=== PATIENT | female | born 1965 | race Caucasian/White ===

== ENCOUNTER 2017-11-20 12:12 | Emergency (ER) | payer MEDICAID, SELFPAY ==
[2017-11-20 12:15] VITALS: BP 146/90; PULSE 80; RESP 16; TEMP 36.6; O2SAT 97; BMI 27.6
--- NOTE | 2017-11-20 13:15 | CT_ITS ---
CTA Chest WO/W Contrast INDICATION: PT HAD ARETHA ON TUESDAY, RUQ PAIN, RT SHOULDER AND BACK PAIN, REDNESS AROUND INCISIONS COMPARISON: None TECHNIQUE: High resolution axial CT imaging of the chest during intravenous contrast administration, CTA protocol. Multiplanar and MIP 3D reformatted images. 75 mL of Isovue-370 were given intraveniously. Radiation dose optimization technique applied. FINDINGS: There is no evidence of pulmonary arterial filling defect to suggest PE. Aortic arch is unremarkable. Heart size is mildly enlarged. Mild atelectatic changes are seen in the dependent portions of the lower lobes, the lungs are otherwise clear. CT/CTA Chest W/WO Contrast IMPRESSION: No evidence of PE or aortic dissection. Mild cardiomegaly. Mild atelectatic changes in the dependent portions of the lower lobes, lungs otherwise clear. at 1510 Reported and signed by: Georgina Edward MD Electronically Signed: Georgina Edward MD at 14:08 EST Tel , Service support ,
--- NOTE | 2017-11-20 13:15 | CT_ITS ---
CT Abdomen And Pelvis W/ Contrast INDICATION: PT HAD ARETHA ON TUESDAY, RUQ PAIN, RT SHOULDER AND BACK PAIN, REDNESS AROUND INCISIONS COMPARISON: None TECHNIQUE: Axial CT imaging of the abdomen and pelvis with IV contrast. Coronal and sagittal reformatted images. 75 mL of Isovue-370 were given intravenously. FINDINGS: Visualized lung bases are clear. The heart size is normal. The liver and spleen are normal in size. The gallbladder is surgically absent. There is some fat stranding in the gallbladder fossa and in the subcutaneous fat, suggestive of recent cholecystectomy. There is no abnormal fluid collection in the surgical bed and the liver demonstrates homogeneous enhancement. The kidneys enhance contrast symmetrically bilaterally and are without evidence of hydronephrosis. Urinary bladder is within normal limits. Bowel loops are nondistended. Appendix is unremarkable. Small amount of free fluid is seen in the pelvis. CT/Abdomen/Pelvis W IV Cont ONLY IMPRESSION: Findings suggestive of recent cholecystectomy. No abnormal fluid collection or other postsurgical complications identified. Small amount of free fluid in the pelvis. at 1507 Reported and signed by: Georgina Edward MD Electronically Signed: Georgina Edward MD at 14:06 EST Tel , Service support ,
--- NOTE | 2017-11-20 13:20 | ED.VISSUMM ---
- ER Visit Summary Date of Service: 11/20/17 Chief Complaint: [Right flank pain] History of Present Illness: The patient is a 52 F [presents to the emergency department with flank pain she had a cholecystectomy on Tuesday at [facility]. She was doing well but since Tuesday she has been having pain that is worsening in the right upper quadrant right lower chest right back. She does feel occasionally like she has to take a big deep breath and but denies any shortness of breath. No fevers or chills. She had a small amount of nausea this morning. Urination has been normal. She has noticed a worsening redness and clear bubbling around her incision sites. There is been a clear drainage. It is worse with taking a deep breath.] Physical Examination: [] Blood pressures 146/90 other vitals within normal limits WN WD NAD PERRL EOMI MMM NECK supple and nontender, no masses RRR no murmur rub or gallop, no peripheral edema, symmetric radial pulses CTAB no respiratory distress ABDOMEN is soft she has tenderness in the right upper quadrant and right CVA tenderness, normal bowel sounds, no distension, no rebound or guarding SKIN is warm and erythema and clear vesicular lesions and drainage around all of her incision sites no tenderness Alert and Oriented x3, CN II-XII in tact, no motor or sensory deficits, gait normal No lymphadenopathy Test Results: [] Emergency Department Course and Treatment: [Patient has pleuritic pain as well as tenderness in the right upper quadrant. I suspect this is postoperative abdominal pain however because she describes some breathing increased effort and pleuritic pain I did order a CTA of the chest as well as the abdomen and pelvis. She has no bile leak or other intra-abdominal complication. CTA shows no PE she does have some atelectasis. Screening blood work shows mild elevation of the AST she has no leukocytosis. Patient does have some irritation around her incision sites. I think this likely represents a sensitivity reaction however I will cover her with Keflex in case there is infection. I did speak with on-call surgeon Dr. Qureshi discussing care in the emergency department. She will be given a Percocet for home.] Treatment Plan: [] Disposition: [disCharge] Impression: [1. Postoperative pain 2. Skin reaction] This note was generated with [employer] software. It may contain incorrect words, spelling, and punctuation that were not noted in review of the chart prior to signing ED Disposition - Plan for ED Patient: Chief Complaint: Other, Pain/Inj Referrals: Fortino Xavier [Primary Care Provider] -
[2017-11-20] MEDS: 0.9% Normal Saline 1,000 ML 125 ML IV (13:36)
[2017-11-20 13:46] LABS: Absolute Lymphocyte Count 1.83 X10^3/ul (0.83-4.51); Absolute Neutrophil Count 6.3 X10^3/uL (2.0-7.7); Basophil# 0.01 X10^3/uL; Basophil% 0.1 % (0-1); Eosinophils% 4.3 % (0-5); Hematocrit 39.9 % (37-47); Lymphocyte # 1.83 X10^3/ul (4.0); Lymphocyte % 19.8 % (19-41); Mean Corp Hgb Conc 32.6 g/gl (32-36); Mean Corpuscular Hgb 28.6 pg (27.0-32.0); Mean Corpuscular Volume 87.7 fL (81-99); Monocyte% 7.6 % (0-10); Neutrophil # 6.26 X10^3/uL (2.7-7.7); Neutrophil % 67.9 % (47-70); Platelet Count 301 K/mm3 (150-450); RBC Distribution Width CV 13.3 % (11.6-14.6); RBC Distribution Width SD 42.2 fl (35.1-43.9); Red Blood Count 4.55 M/mm3 (4.2-5.4); White Blood Count 9.2 K/mm3 (4.4-11.0)
[2017-11-20 13:47] LABS: POSITIVE COUNT NO; POSITIVE DIFFERENTIAL NO; POSITIVE MORPHOLOGY NO
[2017-11-20 14:00] LABS: ALB/GLOB Ratio 1.1 RATIO (0.9-2.4); AST(SGOT) 26 U/L (15-37); Alanine Aminotransfer ALT/SGPT 69 U/L (13-56); Albumin, Serum 3.8 g/dL (3.2-5.0); Alkaline Phosphatase 64 U/L (45-117); Anion Gap 4 (5-15); BUN 11 mg/dL (7-18); BUN/Creat Ratio 12.5 RATIO (10-20); Calcium,Total 9.1 mg/dL (8.5-10.1); Chloride 106 mmol/L (98-107); Creatinine, Serum 0.88 mg/dL (0.55-1.02); EST Glomerular Filtration Rate 72 mL/min (>60); Est Glom Filt Rate - Afr Amer 87 mL/min (>60); Estimated Creatinine Clearance 59.82 ml/min; Globulin 3.5 g/dL (2.2-4.2); Glucose 94 mg/dL (74-106); Lipase 79 U/L (73-393); Potassium 4.1 mmol/L (3.5-5.1); Protein, Total 7.3 g/dL (6.4-8.2); Sodium Level 140 mmol/L (136-145)
[2017-11-20 14:21] LABS: Bacteria 0 SEEN /hpf (None Seen); Mucous, Urine 0 SEEN /hpf (<or=2+); Red Blood Cells-Urine 0 SEEN /hpf (0-5); White Blood Cells 0 SEEN /hpf (0-5)
[2017-11-20 14:23] LABS: Color, Urine Straw (Yellow); Glucose, Dipstick Normal (Normal); Ketone-Dipstick Negative (Negative); Leukocyte Esterase-Dipstick Negative /ul (Negative); Nitrite-Dipstick Negative (Negative); Occult Blood-Urine Negative /ul (Negative); Protein-Dipstick Negative (Negative); Specific Gravity, Urine 1.015 (1.002-1.030); Urine Bilirubin Dipstick Negative (Negative); Urine Clarity Clear (Clear); Urine Urobilinogen Normal (Normal)
[2017-11-20 14:31] LABS: Squamous Epithelial Cells - UA 0-5 SEEN /hpf (5-10)
[2017-11-20 15:27] VITALS: PULSE 72; RESP 16
[2017-11-20 16:31] VITALS: BP 137/92; PULSE 65; RESP 16
--- NOTE | 2017-11-20 16:31 | ED.DEP ---
ED Disposition - Plan for ED Patient: Chief Complaint: Other, Pain/Inj Instructions: ED Post Op Pain Prescriptions: Oxycodone HCl/Acetaminophen [Percocet 5/325] 1 tablet PO Q6H PRN PRN 3 Days #10 tablet PRN Reason: Pain Referrals: Kiko Aguiar [Other]
--- NOTE | 2017-11-20 16:45 | ED.DEP ---
ED Disposition - Plan for ED Patient: Chief Complaint: Other, Pain/Inj Instructions: ED Post Op Pain Prescriptions: Oxycodone HCl/Acetaminophen [Percocet 5/325] 1 tablet PO Q6H PRN PRN 3 Days #10 tablet PRN Reason: Pain Cephalexin [Keflex] 500 mg PO Q6 #28 capsule Referrals: Kiko Aguiar [Other]
== END 2017-11-20 16:47 | disposition home or self-care (01) ==
PROVIDERS: Emergency Provider Emergency Medicine
DX: R10.9 Unspecified abdominal pain (principal); G89.18 Other acute postprocedural pain; T78.40XA Allergy, unspecified, initial encounter; X58.XXXA Exposure to other specified factors, initial encounter; R11.0 Nausea; R07.81 Pleurodynia; Z90.49 Acquired absence of other specified parts of digestive tract
CPT/HCPCS: 71275; 74177; 80053; 81001; 83690; 85025; 96360; 96361; 99283; J7030; Q9967

== ENCOUNTER → 2018-03-07 12:00 | Outpatient (CLI) | payer MEDICAID, SELFPAY ==
--- NOTE | 2018-03-07 12:00 | DT_ITS ---
This patient was seen during an EMR downtime March 06, 2018 - March 13, 2018. This patient may have a combination of paper and electronic documentation or all paper documentation. All documentation is viewable within the e-chart portion of [facility] for each patient visit.
--- NOTE | 2018-03-07 12:00 | BI_ITS ---
MAMMOGRAPHY - BILATERAL SCREENING REASON FOR EXAM: Female, 52 years old. Routine annual screening examination. PERTINENT HISTORY: NO FAM HX - BILAT IMPLANTS 2006 - CURRENT ESTADIOL X 8 MONTHS - PRE [facility] TECHNIQUE: Digital bilateral breast tyrone (3D mammographic acquisition) in the CC and MLO projections. 2-D mediolateral oblique (MLO) and craniocaudad (CC) views of both breasts were obtained. CAD: Full Field Digital Mammography with Computer Added Detection was performed. COMPARISON: 01/11/2017 and 12/03/2015 FINDINGS: Breast Composition: There are scattered areas of fibroglandular density. There are no dominant masses or suspicious calcifications. No other significant abnormalities are identified. BI/SCREENING MAMM (CAD), BILAT IMPRESSION: Stable bilateral screening mammogram. Yearly follow-up mammogram recommended. (A) ASSESSMENT CATEGORY: BIRADS Category 2: Benign. A letter regarding these results will be sent to the patient by the facility within 30 days. Approximately 10% of breast cancers are not detected by mammography. A normal mammogram should not delay biopsy of a clinically suspicious abnormality. [id number] Electronically Signed: Angel Ramirez MD at 12:52 EDT Tel , Service support ,
== END ==
PROVIDERS: Visit Provider Obstetrics & Gynecology
DX: Z12.31 Encounter for screening mammogram for malignant neoplasm of breast (principal)
CPT/HCPCS: 77063; 77067

== ENCOUNTER → 2018-08-21 18:53 | Outpatient (CLI) | payer MEDICAID, SELFPAY ==
[2018-08-21 15:36] VITALS: BMI 27.4
== END ==
PROVIDERS: Referring Provider Obstetrics & Gynecology; Visit Provider Obstetrics & Gynecology
DX: N89.8 Other specified noninflammatory disorders of vagina (principal)
CPT/HCPCS: 87070; 87205

== ENCOUNTER → 2018-08-28 17:02 | Outpatient (CLI) | payer MEDICAID, SELFPAY ==
[2018-08-21 15:36] VITALS: BMI 27.4
--- OUTSIDE RECORDS SUMMARY | 2018-10-10 16:19 | XMS RPT_ITS ---
:1965 Author Organization OHIP Support Name Relationship Address Phone ZAKI YEUNG Unavailable Unavailable + ZAKI YEUNG Unavailable Unavailable + BUEHLERS Unavailable [address] [place] [address] + [place] [address] VERENICE YEUNG Unavailable [address] + [place] [address] CRISTY GOODMAN Unavailable [address] + [place] [address] BUEHLERS Unavailable [address] [place] + [place] [address] VERENICE YEUNG Unavailable [address] + [place] [address] CRISTY GOODMAN Unavailable [address] + [place] [address] BUEHLERS Unavailable [address] + [place] [address] VERENICE YEUNG Unavailable [address] + [place] [address] CRISTY GOODMAN Unavailable Unavailable + BUEHLERS Unavailable [address] + [place] [address] VERENICE YEUNG Unavailable [address] + [place] [address] CRISTY GOODMAN Unavailable 1 + [place] [address] BUEHLERS Unavailable [address] + [place] [address] VERENICE YEUNG Unavailable [address] + [place] [address] CRISTY GOODMAN Unavailable Unavailable + [place] [address] BUEHLERS Unavailable [address] + [place] [address] YEUNG, VERENICE Unavailable [address] + [place] [address] CRISTY GOODMAN Unavailable 0 + [place] [address] BEELOY, ANICETO Unavailable [address] + [place] [address] BUEHLERS Unavailable [address] + [place] [address] GAMAL VERENICE Unavailable [address] + [place] [address] RAVEN, ANICETO Unavailable [address] + [place] [address] BUEHLERS Unavailable [address] [place] + [place] [address] YEUNG, VERENICE Unavailable [address] + [place] [address] BEELOY, ANICETO Unavailable [address] + [place] [address] BUEHLERS Unavailable [address] [place] + [place] [address] YEUNG, VERENICE Unavailable [address] + [place] [address] RAVEN ANICETO Unavailable [address] + [place] [address] BUEHLERS Unavailable [address] [place] + [place] [address] YEUNG, VERENICE Unavailable [address] + [place] [address] Care Team Providers Name Role Phone RIK GONZALEZ Primary Care Unavailable Jaida Siu Attending Unavailable Tootie Figueroa Attending Unavailable Tootie Figueroa Referring Unavailable RIK GONZALEZ Primary Care Unavailable Jeni Leo Attending Unavailable Tootie Figueroa Attending Unavailable RIK GONZALEZ Referring Unavailable Tootie Figueroa Attending Unavailable RIK GONZALEZ Primary Care Unavailable Tootie Figueroa Referring Unavailable [place], Mary Attending Unavailable CARLOS, RIK Referring Unavailable [place], Mary Attending Unavailable Noel, Mary Referring Unavailable CARLOS, RIK Primary Care Unavailable CARLOS, RIK Primary Care Unavailable JARRETT HOLCOMB Attending Unavailable Noel, Mary Attending Unavailable [place], Mary Referring Unavailable CARLOS, RIK Primary Care Unavailable Andrew Atkins Attending Unavailable CARLOS, RIK Primary Care Unavailable CARLOS, ANDREW S Attending Unavailable CARLOS, ANDREW S Referring Unavailable [place], DULCE E Referring Unavailable [place], DULCE E Admitting Unavailable [place], DULCE E Attending Unavailable SCHWEIKERT, ALBINA A Attending Unavailable CARLOS, ANDREW S Referring Unavailable KEYMATHIEU MONTAÑO (HEALTH TECHNICIAN) Attending Unavailable KEYMATHIEU MONTAÑO (HEALTH TECHNICIAN) Referring Unavailable SCHWEIKERT, ALBINA Belkys Admitting Unavailable SCHWEIKERT, ALBINA Rizvi Attending Unavailable MICHAEL SNOW Attending Unavailable AARON BROWN (SOURCE INSPECTOR) Attending Unavailable SCHWEIKERT, ALBINA A Referring Unavailable SCHWEIKERT, ALBINA A Referring Unavailable SANTY GORE Attending Unavailable ANDREW GONZALEZ MD. Primary Care Unavailable SCHWEIKERT, ALBINA Rizvi Attending Unavailable CARLOS, ANDREW S Primary Care Unavailable CARLOS, ANDREW S Referring Unavailable SCHWEIKERT, ALBINA Rizvi Admitting Unavailable SCHWEIKERT, ALBINA Rizvi Attending Unavailable CARLOS, ANDREW S Primary Care Unavailable MATHIEU KEY Attending Unavailable KEYLYEN Referring Unavailable CARLOS, ANDREW S Primary Care Unavailable PAYTON SHI Attending Unavailable SCHWEIKERT, ALBINA A Referring Unavailable CARLOS, ANDREW S Primary Care Unavailable CARLOS, ANDREW S Primary Care Unavailable MICHAEL SNOW Attending Unavailable SCHWEIKERT, ALBINA Rizvi Referring Unavailable CARLOS, ANDREW S Primary Care Unavailable CARLOS, ANDREW S Referring Unavailable [place], DULCE E Attending Unavailable CARLOSANDREW Referring Unavailable ROSALIE FRANKLIN (PA) Referring Unavailable RADHA ACEVEDO (SOURCE INSPECTOR) Attending Unavailable [place], DULCE E Referring Unavailable [place], DULCE E Attending Unavailable [place], DULCE E Referring Unavailable CARLOS, ANDREW S Referring Unavailable CARLOS, ANDREW S Attending Unavailable PROBLEMS PROBLEMS DATE TYPE CONDITION / CODE ATTENDING STATUS SOURCE 08/30/2018 Unknown N12 - ZHANG, 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, not Hospital specified as acute or Repository chronic / N12(ICD-10) 08/28/2018 Unknown R30.0 - Dysuria / [place], Active [place] R30.0(ICD-10) [facility] Repository 08/22/2018 Unknown N89.8 - Other Chongmatthias, Active [place] specified [facility] noninflammatory Hospital disorders of vagina / Repository N89.8(ICD-10) 08/22/2018 Unknown Z01.411 - Encounter Carolina, Active [place] for gynecological General Acute Hospital examination (general) Hospital (routine) with Repository abnormal findings / Z01.411(ICD-10) 04/02/2018 Active Other chest pain / KARI, Active [place] R07.89(ICD-10) [facility] Other [place] Repository 03/29/2018 Active Other specified SCHWEIKERT, Active [facility] postprocedural states ALBINA A Clinic Other / Z98.890(ICD-10) [place] Repository 03/29/2018 Active Supraventricular SCHWEIKERT, Active [place] tachycardia / ALBINA A Clinic Other I47.1(ICD-10) [place] Repository 03/29/2018 Active Palpitations / SCHWEIKERT, Active [place] R00.2(ICD-10) ALBINA A Clinic Other [place] Repository 03/29/2018 Active Pre-excitation SCHWEIKERT, 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 / ALBINA A Clinic Other I45.6(ICD-10) [place] Repository 03/29/2018 Admitting Unknown / SCHWEIKERT, Active [place] [facility] diagnosis UNK(Unknown) [facility] Repository 03/29/2018 Unknown Z12.31 - Encounter Carolina, Active [facility] for screening [facility] Acute Hospital mammogram for Hospital malignant neoplasm of Repository breast / Z12.31(ICD-10) 12/21/2017 Active Other usp SCHWEIKERT, Active [place] (current) drug ALBINA A [facility] Other therapy / [place] Z79.899(ICD-10) Repository 12/21/2017 Active [place]chmerz / SCHWEIKERT, Active [facility] [place] N94.0(ICD-10) ALBINA A Clinic Other [place] Repository 11/20/2017 Unknown R10.9 - Unspecified Sherron, Jaida Active [place] abdominal pain / Community R10.9(ICD-10) Hospital Repository 11/16/2017 Active Other specified HOOVER, Active [place] diseases of DULCE E Clinic Other gallbladder / [place] K82.8(ICD-10) Repository 11/09/2017 Active Encounter for other NA Active [facility] preprocedural Clinic Other examination / [place] Z01.818(ICD-10) Repository 10/26/2017 Active Right upper quadrant ANDREW GONZALEZ Active [place] pain / R10.11(ICD-10) S Clinic Other [place] Repository PROCEDURES PROCEDURES No Procedure Records FoundRESULTS RESULTS Observed: 09/05/2018 Status: F Source: [facility] 7:37 PM [facility] REPOSITORY . MICRO - Microbiology PROCEDURE: Urine Culture [*1] SOURCE: Urine, Clean Catch BODY SITE: COLLECTED DATE/TIME: 09/05/2018 19:37 EST RECEIVED DATE/TIME: 09/06/2018 17:20 EST START DATE/TIME: 09/06/2018 17:20 EST FREE TEXT SOURCE: FINAL REPORTS Final Report [] Verified Date/Time/Personnel: 09/08/2018 11:16 EST 3,000 organisms per mL Presumptive Lactobacillus species Sensitivity testing is not recommended for one of the following reasons: 1. Established susceptibility patterns are available or 2. Interpretative criteria are not available. PRELIMINARY REPORTS Preliminary Report [] Verified Date/Time/Personnel: 09/07/2018 09:01 EST No growth to date Performing Locations *1: This test was performed at: [facility], [address] [place] [address], [address] [place] [address] Performed By: #### CUR #### [place] [address] CBC Collected: 09/05/2018 Status: F Source: [facility] 6:58 PM [facility] REPOSITORY TYPE CODE TESTS RESULT OUT OF REFERENCE UNITS RANGE LAB WBC(LOINC) 4.60-10.80 10 3/mcL WBC 10.30 LAB RBCCT(LOINC 4.20-5.40 10 6/mcL ) RBC 4.61 LAB HGB(LOINC) 12.0-16.0 G/dL Hgb 13.0 LAB HCT(LOINC) 37.0-47.0 % Hct 39.7 LAB MCV(LOINC) 80.0-94.0 fL MCV 86.2 LAB MCH(LOINC) 27.0-31.2 pg MCH 28.3 LAB MCHC(LOINC) 33.0-37.0 G/dL Low MCHC 32.8 LAB RDW(LOINC) 11.5-14.5 % RDW 13.2 LAB PLT(LOINC) 130-400 10 3/mcL Platelet 373 LAB MPV(LOINC) 7.4-10.4 fL MPV 8.5 Performed By: #### CBC, ADIFF, ANEU #### [address] [address] #### BMP, GFR #### [address] [address] .AUTO DIFF Collected: 09/05/2018 Status: F Source: [facility] 6:58 [facility] REPOSITORY TYPE CODE TESTS RESULT OUT OF REFERENCE UNITS RANGE LAB DENISSE(LOINC) 37.0-80.0 % Neutrophil % 51.6 LAB LYM(LOINC) 10.0-50.0 % Lymphocyte % 39.6 LAB MON(LOINC) 1.7-13.0 % Monocyte % 6.9 LAB EO(LOINC) 0.0-7.0 % Eosinophil % 1.4 LAB BAS(LOINC) 0.0-2.5 % Basophil % 0.5 LAB ABLYM(LOIN 0.77-3.85 10 3/mcL C) High Lymphocyte, 4.10 Absolute LAB SAVANAH(LOINC 0.15-1.00 10 3/mcL ) Monocyte, 0.70 Absolute LAB AEOS(LOINC 0.00-0.40 10 3/mcL ) Eosinophil, 0.10 Absolute LAB ABAS(LOINC 0.00-0.19 10 3/mcL ) Basophil, 0.10 Absolute Performed By: #### CBC, ADIFF, ANEU #### [address] [address] #### BMP, GFR #### [address] [address] .NEUABS Collected: 09/05/2018 Status: F Source: [facility] 6:58 PM [facility] REPOSITORY TYPE CODE TESTS RESULT OUT OF REFERENCE UNITS RANGE LAB ANEU(LOINC) 2.85-6.16 10 3/mcL Neutrophil, 5.30 Absolute Performed By: #### CBC, ADIFF, ANEU #### [place] [address] #### BMP, GFR #### [address] [address] BMP Collected: 09/05/2018 Status: F Source: [facility] 6:58 PM [facility] REPOSITORY TYPE CODE TESTS RESULT OUT OF REFERENCE UNITS RANGE LAB GLU(LOINC) 70-105 mg/dL Glucose Level 90 LAB NA(LOINC) 136-145 mmol/L Sodium Level 139 LAB K(LOINC) 3.5-5.1 mmol/L Potassium High Level 5.2 LAB CL(LOINC) 98-107 mmol/L Chloride 100 LAB CO2(LOINC) 22-29 mmol/L CO2 High 30 LAB EBAL(LOINC mEq/L ) Electrolyte Balance 9.0 LAB BUN(LOINC) 7-18 mg/dL BUN 13 LAB CRE(LOINC) 0.55-1.02 mg/dL Creatinine Lvl (s) 0.60 LAB BC(LOINC) 7-27 ratio BUN/Creatinine 22 Ratio LAB CA(LOINC) 8.4-10.2 mg/dL Calcium Lvl 9.4 Performed By: #### CBC, ADIFF, ANEU #### [address] [address] #### BMP, GFR #### [place] [address] .GFR Collected: 09/05/2018 Status: F Source: [facility] 6:58 [facility] REPOSITORY TYPE CODE TESTS RESULT OUT OF REFERENCE UNITS RANGE LAB GFRAA(LOINC ml/min/1.73 ) sqm GFR 127 [place] Result Comment: GFR Population mean for , Non- Americans Ages 20-29 = 116 mL/min/1.73 sq.m. Ages 30-39 = 107 mL/min/1.73 sq.m. Ages 40-49 = 99 mL/min/1.73 sq.m. Ages 50-59 = 93 mL/min/1.73 sq.m. Ages 60-69 = 85 mL/min/1.73 sq.m. Ages 70+ = 75 mL/min/1.73 sq.m. Chronic Kidney Disease: Less than 60 mL/min/1.73 square meters End Stage Renal Disease: Less than 15 mL/min/1.73 square meters LAB GFRNO(LOINC) ml/min/1.73sqm GFR Non- 105 Result Comment: GFR Population mean for , Non- Americans Ages 20-29 = 116 mL/min/1.73 sq.m. Ages 30-39 = 107 mL/min/1.73 sq.m. Ages 40-49 = 99 mL/min/1.73 sq.m. Ages 50-59 = 93 mL/min/1.73 sq.m. Ages 60-69 = 85 mL/min/1.73 sq.m. Ages 70+ = 75 mL/min/1.73 sq.m. Chronic Kidney Disease: Less than 60 mL/min/1.73 square meters End Stage Renal Disease: Less than 15 mL/min/1.73 square meters Performed By: #### CBC, ADIFF, ANEU #### [address] [address] #### BMP, GFR #### [place] [address] UA Collected: 09/05/2018 Status: F Source: [facility] 5:43 [facility] REPOSITORY TYPE CODE TESTS RESULT OUT OF RANGE REFERENCE UNITS LAB SPCUA(GABO NC) UA Specimen Type Clean Catch LAB CLRUA(GABO NC) UA Color Yellow LAB APPUA(GABO Clear NC) UA Appear Clear LAB SGUA(LOIN C) UA Spec Unknown Grav <=1.005 LAB GLUA(LOIN Negative mg/dL C) UA Glucose Negative LAB BILUA(GABO Negative NC) UA Bili Negative LAB KETUA(GABO Negative mg/dL NC) UA Ketones Negative LAB BLDUA(GABO Negative NC) UA Blood Negative LAB PHUA(LOIN C) UA pH 7.0 LAB PROUA(GABO Negative mg/dL NC) UA Protein Negative LAB UROUA(GABO E.U./dL NC) UA Urobilinogen 0.2 LAB NITUA(GABO Negative NC) UA Nitrite Negative LAB LEUUA(GABO Negative NC) UA Leuk Est Negative Performed By: #### UA, UAMICAO #### [address] [address] .URINALYSIS MICROSCOPIC Collected: 09/05/2018 Status: F Source: [place] ([place]) 5:43 [facility] REPOSITORY TYPE CODE TESTS RESULT OUT OF RANGE REFERENCE UNITS LAB WBCUA(LOIN None Seen /hpf C) UA WBC None Seen LAB RBCUA(LOIN None Seen /hpf C) UA RBC None Seen LAB EPIUA(LOIN None Seen /hpf C) Unknown UA Squam Epithelial 0-5 Performed By: #### UA, UAMICAO #### [place] [address] [place], [place] [address] LIPID PROFILE Collected: 08/31/2018 Status: F Source: [place] 11:42 AM [facility] REPOSITORY TYPE CODE TESTS RESULT OUT OF RANGE REFERENCE UNITS LAB L501.4900 200 mg/dL Normal CHOL 148 Result Comment: <200 mg/dL Desirable 200-240 mg/dL Borderline >240 mg/dL High Risk LAB L501.5000 mg/dL Normal TRIG 91 Result Comment: The drugs N-Acetylcysteine and Metamizole may falsely depress this assay. Serum Triglycerides Reference Interval Normal <150 mg/dL Borderline high 150 - 199 mg/dL High 200 - 499 mg/dL Very High > or = 500 mg/dL LAB L501.6400 mg/dL Normal HDL 65 Result Comment: The drugs N-Acetylcysteine and Metamizole may falsely depress this assay. Reference Range HDL <40 mg/dL Low HDL Cholesterol HDL >or= 60 mg/dL High HDL Cholesterol LAB L501.6500 0-130 mg/dL Normal LDL 65 LAB L501.6600 5-40 mg/dL Normal VLDL 18 Performed By: #### L500.4100, L501.0100, L501.9520 #### [facility] [address] [place], [place], [address] GLUCOSE Collected: 08/31/2018 Status: F Source: [place] 11:42 AM [facility] REPOSITORY TYPE CODE TESTS RESULT OUT OF RANGE REFERENCE UNITS LAB L501.0100 74-106 mg/dL Normal GLU 85 Result Comment: Please note revised GLUCOSE reference range effective 2017. Performed By: #### L500.4100, L501.0100, L501.9520 #### [facility] [address] [place], [address] THYROID STIM HORMONE Collected: 08/31/2018 Status: F Source: [place] ([facility]) 11:42 AM [facility] REPOSITORY TYPE CODE TESTS RESULT OUT OF RANGE REFERENCE UNITS LAB L501.9520 0.358-3.74 uIU/mL Normal TSH 2.62 Performed By: #### L500.4100, L501.0100, L501.9520 #### [facility] [address] [place], [address] EMERGENCY DEPARTMENT Observed: 08/30/2018 Status: F Source: [place] SUMMARY 3:21 PM [facility] REPOSITORY [facility] Medical Records Department [address] [facility] [place] [address] Emergency Department Summary 08/30/18 1334 MR#: [id number] Acct: [id number] Name: NICKI DELACRUZ Rep #: [id number] : 1965 53 From: Jarrett Holcomb MD PCP: RIK GONZALEZ Status: REG ER History of Present Illness Chief Complaint: Abd Pain Informant: Patient Onset: Days - 3 Context: Gradual Onset Timing: Continuous Quality: ache Location: pelvis, w/ radiation into low back, worse on right Current Severity: Moderate Maximum Severity: Moderate Worsened by: nothing Relieved by: nothing Associated Symptoms: burning dysuria, frequency, urgency. no gross hematuria. Narrative: Had urinary symptoms and suprapubic discomfort 2-3 days ago, including burning after she was done urinating, her doctor tested her urine in the office which showed blood, and prescribed Macrobid for her which she started and now she has developed colicky pain in her low back especially the right side, some chills, no nausea or vomiting. Past Medical History - Allergies and Home Meds Allergies/Adverse Reactions: Allergies Tetracyclines Allergy (Verified 08/30/18 13:15) Unknown propranolol Adverse Reaction (Verified 08/30/18 13:15) Other MENTAL STATUS CHANGES Primary Care Physician: Rik Gonzalez [Primary Care Provider] - Surgical History: hysterectomy Lives: Spouse/ Significant Other Smoking Status: Never smoker Review of Systems General: Reports: Chills. Denies: Sweats Cardiovascular: Denies: Chest pain, Palpitations Respiratory: Denies: Dyspnea, Cough, Dyspnea on exertion Gastrointestinal: Reports: Abdominal pain. Denies: Nausea, Vomiting, Diarrhea, Melena, Hematochezia Genitourinary: Reports: Dysuria, Frequency. Denies: Hematuria Musculoskeletal: Reports: Back pain Skin: Denies: Rash Neurological: Denies: Headache, Weakness, Numbness Physical Exam Vital Signs/Narrative: Vital Signs 08/30/18 13:15 98.5 F 84 17 143/88 H 98 Inital Vital Signs reviewed: Yes General: Well nourished, Well developed Head: Normocephalic, Atraumatic Eyes: Perrl, EOMI ENT: Moist mucous membranes, No rhinorrhea Neck: Supple, Nontender Cardiovascular: Regular rate, Regular rhythm, No murmurs. Negative for: Tachycardia Respiratory: No distress, CTA bilaterally, Chest nontender Abdomen: Soft, Nondistended, Normal bowel sounds, Tender - suprapubic. Negative for: Guarding, Rebound tenderness Back: Normal Inspection, CVA tenderness - mild on R only Extremities: Nontender, No edema Skin: Normal color, No rash, No Trauma Neurological: Alert, Oriented x3, Cranial nerves II-XII grossly intact, Normal Strength, Normal Sensation Psychological: Normal affect Diagnostic/Tx/Re-eval Laboratory Tests Urine Color Yellow (Yellow) Urine Clarity Sl. Cloudy (Clear) Urine pH 6.0 (5.0 - 8.0) Ur Specific Eva 1.025 (1.002-1.030) - Medical Decision Making Urinalysis shows 25 leukocyte esterase, few white blood cells, 2+ bacteria. I discussed with Mary Cohen, nurse practitioner who the patient saw several days ago, she reviewed her urinalysis which showed very similar findings. The patient has symptoms and clinical findings consistent with cystitis that has turned into early pyelonephritis, I do not think she needs any other labs right now since she appears very well, has normal vital signs, and it cannot be since she had a hysterectomy, and therefore meets no criteria for admission. I coordinated follow-up, she will get an injection of Rocephin here in addition to Toradol for pain control, and prescriptions for Keflex and [place]. We had initially discussed Bactrim but she said that did not work for her in the past and she prefer to try something else. 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 ED Disposition - Plan for ED Patient: Disposition: Home or Assisted Living Chief Complaint: Abd Pain Diagnosis: Pyelonephritis Instructions: ED Kidney Infec Female Prescriptions: Hydrocodone/Acetaminophen [[place] 5-325 Tablet] 1 each PO Q4H PRN 2 Days #12 tablet PRN Reason: Pain Cephalexin 500 mg PO 4X/DAY #40 capsule Referrals: Tootie Figueroa MD [STAFF PHYSICIAN] - 3-5 Days What to do if you have Problems For any increased pain, shortness of breath, bleeding, nausea or vomiting, chest pain, or any unexpected problems, contact your Primary Care Provider. Call [facility] ([phone]) or report to the closest Emergency Room. Call 911 if necessary. 08/30/18 1521 <Electronically signed by Jarrett Holcomb MD> Date Jarrett Holcomb MD Cosigner Signature (If Indicated): Date CC: RIK GONZALEZ URINALYSIS, COMPLETE Collected: 08/30/2018 Status: F Source: [place] 1:40 PM [facility] REPOSITORY Order Comment: How was Urine Obtained? ELECTRICIAN SUPER[employer]OR [employer]ANE TO SPECIFY TYPE CODE TESTS RESULT OUT OF RANGE REFERENCE UNITS LAB L400.3000 Yellow COLOR Normal Yellow LAB L400.3050 Clear Normal CLARITY Sl. Cloudy LAB L400.3200 Normal mg/dl Normal GLUCOSE, UR Normal LAB L400.3300 Negative mg/dL High BILIRUBIN URINE 1 Result Comment: COLOR OF URINE MAY AFFECT DIPSTICK RESULTS. LAB L400.3400 Negative mg/dl High KETONE UR 150 Result Comment: CRITICAL VALUE *H CRITICAL VALUE VERIFIED. CALLED TO RENETTA MENDES 08/30/18 140Skyler Morgan. RESULTS READ BACK BY RENETTA . LAB L400.3465 1.002-1.030 Normal SP.GR. DIPSTX 1.025 LAB L400.3550 5.0 - 8.0 pH Normal UR 6.0 LAB L400.3600 Negative mg/dl High 30 PROT DIPSTX LAB L400.3700 Normal mg/dl High 1 UROBILI LAB L400.3750 Negative Normal NITRITE UR Negative LAB L400.3780 Negative /ul High 10 OCCULT BLOOD-UR LAB L400.3800 Negative /ul High 25 LEUK ESTERASE LAB L400.4050 0-5 /hpf Normal WBC 0-5 SEEN LAB L400.4100 0-5 /hpf Normal RBC-UA 0-5 SEEN LAB L400.4150 5-10 /hpf Normal SQUAM EPI 0-5 SEEN LAB L400.4300 None Seen /hpf 2+ Normal BACTERIA LAB L400.4350 <or=2+ /hpf 4+ Normal MUCUS, URINE LAB L400.4450 0-5 /lpf Normal FINE GRAN CAST 0-5 SEEN Performed By: #### L400.0001 #### [facility] [address] [facility] [address] [place], [place], [id number] Observed: 08/28/2018 Status: F Source: [place] CULTURE, URINE 12:00 AM [facility] REPOSITORY Urine Culture ORGANISM 1: Presumptive E. coli Meridian Count 11,000-25,000 Presumptive E. coli: REACTION Amoxacillin/Clavulanic Acid $ <=2 S Ampicillin $ <=2 S Ampicillin/Sulbactam $ <=2 S Cefazolin $ <=4 S Cefepime $ <=1 S Ceftriaxone $ <=1 S Ciprofloxacin $ <=0.25 S ESBL - Ertapenim $$$ <=0.5 S Gentamicin $ <=1 S Imipenem *NF <=0.25 S Levofloxacin $ <=0.12 S Nitrofurantoin $ <=16 S Piperacillin/Tazobactam $$ <=4 S Tobramycin $ <=1 S Trimethoprim/Sulfametho $ <=20 S (NF) indicates non-formulary drug at [facility]. Approval by Infectious Disease Specialist required before non-formulary drugs may be ordered and/or dispensed. Performed By: #### M100.0650 #### [facility] [address] [place], [place], [id number] Observed: 08/21/2018 Status: F Source: [place] CULTURE, GENITAL 6:54 PM [facility] COMPREHENSIVE REPOSITORY Reason for Exam: vaginal discharge Gram Stain Score = 0 Interpretation: 0-3 Normal, 4-6 Intermediate, 7-10 Positive BV Gram Stain 4+ Gram positive rods 2+ Epithelial cells Gent Cult Comp Normal vaginal alexandro isolated. No yeast, Gardnerella, Neisseria or beta-hemolytic Streptococcus isolated. Performed By: #### M100.1600 #### [facility] [address] [place], [address] BORDEREAU CLERK OFFICE VISIT Observed: 08/21/2018 Status: F Source: [place] REPORT 4:47 PM [facility] REPOSITORY [facility] [address] [place] [address] OFFICE VISIT Date of Service: 08/21/18 MR#: [id number] Acct: [id number] Name: NICKI DELACRUZ Rep #: [id number] : 1965 Provider: Tootie Figueroa MD Age/Sex: 53/F Location: [facility] [place]: Signed Intake Vital Signs08/21/18 Height 5 ft 2 in 08/21/18 Weight: 150 lb 08/21/18 Body Mass Index (BMI) 27.4 08/21/18 Blood Pressure 120/72 Intake Visit Reasons: ANNUAL Chief Complaint: est annual Gate Services Supervisor Required: No Is patient in pain?: No Allergies Tetracyclines Allergy (Verified 08/21/18 15:36) Unknown propranolol Adverse Reaction (Verified 08/21/18 15:36) Other Medications Lorazepam 0.5 mg PO DAILY PRN PRN 05/30/14 [History Confirmed 08/21/18] Multivitamins,Therapeutic [Multivitamin] 1 tab PO DAILY 05/30/14 [History Confirmed 08/21/18] traZODone [Desyrel] 50 mg PO QHS 05/30/14 [History Confirmed 08/21/18] Flecainide [Tambocor] 50 mg PO BID 06/27/17 [History Confirmed 08/21/18] Cetirizine HCl [Zyrtec] 10 mg PO DAILY 11/20/17 [History Confirmed 08/21/18] estradiol 0.01% (0.1 mg/gram) vaginal cream See Rx Instructions VAGINAL .COMPLEX #42.5 g 08/21/18 [Rx Confirmed 08/21/18] estradiol 0.025 mg/24 hr semiweekly transdermal patch 1 patch TOPICAL .COMPLEX #8 ea 08/21/18 [Rx Confirmed 08/21/18] Is last menstrual period known: No Post menopausal: No Patient : No : No [facility] Medical History Abnormal Pap smear of cervix (Acute) Qnclt-Xmamimnmt-Dmtle syndrome (Acute) Surgical History S/P (Resolved) S/P breast augmentation (Resolved) S/P laparoscopic assisted vaginal hysterectomy (LAVH) (Resolved) S/P oophorectomy (Resolved) S/P tonsillectomy and adenoidectomy (Resolved) s/p ablation (Resolved) Family History Uncle Brain cancer Lung cancer Grandfather Heart disease Colon cancer Social History Smoking Status: Never smoker alcohol intake: never substance use type: does not use caffeine: Yes what type of physical activity do you participate in: walking seatbelt use: always do you feel safe at home: Yes additional social history: Patient works at [email or web address] Pregancy History 3 Elective abortions Hx Para 3 Spontaneous abortions Past Pregnancies Del. DateName GA/Weeks Outcome Route Bth WeighInfant GeLabor LgtAnesthesiDel LocatProvider FOB t n h a n HPI ANNUAL: Details: NICKI DELACRUZ is a 53 year old who presents for annual exam. she is postmenopausal but doing well, co some discharge and odor. Last PAP: 14 normal- hyst History of abnormal PAP: yes mild Last mammogram: 03/20 normal History of abnormal mammogram: no Colon cancer screening: up to date Other preventative health care screenings: pcp is Female Reproductive History Questions: Metorrhagia: No, Sexually active: Yes, Dyspareunia: Yes (dryness), PCB: No ROS Const Constitutional: Reports as per HPI; denies poor appetite, fatigue, increased appetite, weight gain or weight loss Cardio Card: Denies chest pain Resp Resp: Denies dyspnea or cough GI GI: Reports as per HPI; denies bloating, abdominal pain, constipation, vomiting or nausea : Reports as per HPI and other; denies blood in urine, vaginal odor, vaginal itching, vaginal dryness, vaginal discharge, urinary urgency, urinary incontinence, urinary frequency, pelvic pain, painful urination, difficulty urinating, prolapse symptoms or nipple discharge Skin Skin/Breast: Denies nipple discharge, breast pain, breast skin changes, breast lump or changing lesions Exam Const General: cooperative, healthy appearing, comfortable, no acute distress, well developed, well groomed [facility] Head: normal to inspection, normocephalic Ears: hearing grossly normal bilaterally, external ears normal Nose: external nose normal Face and sinus: normal facial exam Neck Neck: normal visual inspection, full ROM, no lymphadenopathy Thyroid: thyroid normal Chest Chest palpation AND inspection: normal inspection of the chest Breast inspection: normal inspection of the breasts, normal inspection of the axillae Breast palpation: normal palpation of the breasts, normal palpation of the axillae, no axillary lymphadenopathy Resp Effort AND Inspection: normal respiratory effort GI Inspection: normal to inspection, non-distended Palpation: no guarding, soft, no hepatosplenomegaly General: bladder normal to palpation External Female Exam: normal external appearance, normal appearance of the urethra, no lesions Urethra: normal appearance of the urethra, normal palpation Speculum Exam - Vagina: normal appearance of the vagina, normal vaginal discharge Bimanual Exam- Vagina AND Uterus: bladder normal to palpation Bimanual Exam- Adnexa, other: normal adnexae, no adnexal masses, adnexae non-tender Skin General: no rashes or lesions noted Neuro General: alert, moves all extremities, no focal motor deficits Extrem General: no pedal edema, normal to inspection Psych Appearance: grossly normal Mental Status: mental status grossly normal Affect: normal affect Speech and Movement: speech and movement normal Attitude: cooperative Assessment AND Plan Problems 1. Encounter for gynecological examination with abnormal finding Z01.411 2. Dyspareunia milly cruz discussed Plan Cervical cancer screening: hyst Breast cancer screening: mamm discussed estrace for dyspareunia other health maintenance examination reviewed and orders placed if needed. Encouraged maintenance of a healthy weight and active lifestyle and handout given. Annual exam handout including recommendations for good health guidelines, Calcium/vitamin D recommendations, and basic screening information given. Problem list up to date, see problem list details for any additional plan information. Follow up in one year for annual health maintenance exam or sooner if needed. Medications New: estradiol 0.01%(0.1mg/gram) (Estrace) use fingertip amount or 1-2g every night vaginally x 2 weeks, then 1-3x weekly for maintenance 42.5 gram s 3RF Refilled: Coding Level of Care Code Off vis,est,prev 40-64yrs Diagnoses Encounter for gynecological examination with abnormal finding Z01.411 Gynecological examination findings: abnormal findings PRESENT Dyspareunia 08/21/18 1647 <Electronically signed by Tootie Figueroa MD> Date Tootie Figueroa MD Cosigner Signature: Date (if applicable) CC: PROGRESS Observed: 06/26/2018 Status: COMPLETED Source: [place] 3:44 PM [facility] [place] REPOSITORY HNO ID: [id number] Author: Andrew Gonzalez Service: (none) Author Type: Physician Type: Progress Notes Filed: 06/27/2018 9:18 AM Note Text: Nicki Delacruz is a 53 year old female who presents with the following concerns and complaints: Patient is here for a variety of concerns we discussed her history of ablation she still has intermittent dizziness at times and some variation in her pulse rate but had a outpatient EKG extended that showed no significant abnormality at this time she has a history of reflux and history of intermittent abdominal pain she had a liver lesion that was probably a variation of normal but they recommended MRI she's had intermittent nausea and we'll have her follow up with the production assistant she has almost daily headaches and all have her follow up with headache specialist here she has underlying mild anxiety which is actually improved she uses the Ativan once or twice weekly and uses trazodone for insomnia we discussed many issues in detail history of mild asthma ACTIVE PROBLEM LIST Asthma Adjustment Disorder With Depressed Mood Cervical High 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 Positive Add (Attention Deficit Disorder) Insomnia, Unspecified Anxiety Primary Insomnia Stress Incontinence in Female Encounter for Screening Colonoscopy 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 Lungs clear cardiovascular exam normal mild right upper quadrant discomfort to palpation history of removal gallbladder Assessment / Plan: F51.01 Primary insomnia (primary encounter diagnosis) Z23 Need for vaccination K21.9 Gastro-esophageal reflux disease without esophagitis F41.9 Anxiety disorder, unspecified type G44.209 Tension headache R11.0 Nausea K76.9 Liver lesion Office Visit on 06/26/18 -MRI LIVER WO/W IVCON -MRI 3D POST PROCESSING -INFLUENZA VACCINE QUADRIVALENT AGE 3 YRS PLUS + IM -TDAP VACCINE AGE 7+ IM -CONSULT TO GASTROENTEROLOGY -CONSULT TO NEUROLOGY -traZODone (DESYREL) 50 mg tablet -albuterol HFA (VENTOLIN HFA) 90 mcg/actuation inhaler -LORazepam (ATIVAN) 0.5 mg tab -Omeprazole (PRILOSEC) 40 mg capsule -ondansetron (ZOFRAN) 4 mg tablet -iv contrast (will be provided with radiology test) Andrew Gonzalez MD CNOV Observed: 06/26/2018 Status: COMPLETED Source: [place] 3:30 PM [facility] REPOSITORY Office Visit ([facility]AMP[facility]) NICKI DELACRUZ ([id number]) 1965 F NFR Date Time Provider Department 06/26/18 3:30 PM ANDREW GONZALEZ [facility]AMP[facility] During your visit today, we recorded the following information about you: Pulse Blood pressure Weight 73/minute 110/64 68 kg Andrew Gonzalez MD 06/27/2018 9:18 AM Signed Nicki Delacruz is a 53 year old female who presents with the following concerns and complaints: Patient is here for a variety of concerns we discussed her history of ablation she still has intermittent dizziness at times and some variation in her pulse rate but had a outpatient EKG extended that showed no significant abnormality at this time she has a history of reflux and history of intermittent abdominal pain she had a liver lesion that was probably a variation of normal but they recommended MRI she's had intermittent nausea and we'll have her follow up with the production assistant she has almost daily headaches and all have her follow up with headache specialist here she has underlying mild anxiety which is actually improved she uses the Ativan once or twice weekly and uses trazodone for insomnia we discussed many issues in detail history of mild asthma ACTIVE PROBLEM LIST Asthma Adjustment Disorder With Depressed Mood Cervical High 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 Positive Add (Attention Deficit Disorder) Insomnia, Unspecified Anxiety Primary Insomnia Stress Incontinence in Female Encounter for Screening Colonoscopy 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 Lungs clear cardiovascular exam normal mild right upper quadrant discomfort to palpation history of removal gallbladder Assessment / Plan: F51.01 Primary insomnia (primary encounter diagnosis) Z23 Need for vaccination K21.9 Gastro-esophageal reflux disease without esophagitis F41.9 Anxiety disorder, unspecified type G44.209 Tension headache R11.0 Nausea K76.9 Liver lesion Office Visit on 06/26/18 -MRI LIVER WO/W IVCON -MRI 3D POST PROCESSING -INFLUENZA VACCINE QUADRIVALENT AGE 3 YRS PLUS + IM -TDAP VACCINE AGE 7+ IM -CONSULT TO GASTROENTEROLOGY -CONSULT TO NEUROLOGY -traZODone (DESYREL) 50 mg tablet -albuterol HFA (VENTOLIN HFA) 90 mcg/actuation inhaler -LORazepam (ATIVAN) 0.5 mg tab -Omeprazole (PRILOSEC) 40 mg capsule -ondansetron (ZOFRAN) 4 mg tablet -iv contrast (will be provided with radiology test) Andrew Gonzalez MD Referring Provider: SELF [200] Allergies As of Date: 06/26/2018 Noted Allergy Reaction CITALOPRAM 09/07/2017 14 - Other: See Comments Comments: Did not tolerate, ? Mental status changes DUST 09/08/2005 5 - Intolerance LIQUID BANDAGE (ENBUCRILATE) 12/27/2017 2 - Rash Comments: blisters and rash MOLD 09/08/2005 14 - Other: See Comments Comments: Intolerance; itchy throat, runny nose PNEUMOVAX 23 (PNEUMOCOCCAL 23-DAWIT*11/20/2013 7 - Swelling Comments: tongue swollen arm POLLEN 09/08/2005 5 - Intolerance PROPRANOLOL 01/25/2007 1 - Mental Status Change SMOKE 09/08/2005 5 - Intolerance TETRACYCLINE 09/08/2005 8 - GI Upset Comments: Abdominal pain/cramping Date Reviewed: 06/26/2018 Reviewed by: Venecia Hughes Ma - Fully Assessed Reason for Visit: Recheck [92] Primary Visit Diagnosis:Primary insomnia [F51.01] Other Visit Diagnoses:Need for vaccination [Z23] Gastro-esophageal reflux disease without esophagitis [K21.9] Anxiety disorder, unspecified type [F41.9] Tension headache [G44.209] Nausea [R11.0] Liver lesion [K76.9] Order(s):INFLUENZA VACCINE QUADRIVALENT AGE 3 YRS PLUS + IM [[id number]] Order #: [id number] TDAP VACCINE AGE 7+ IM [[id number]] Order #: [id number] traZODone (DESYREL) 50 mg tabletTake 1 tablet by mouth daily at bedtime.Disp: 30 tabletRfl: 11 albuterol HFA (VENTOLIN HFA) 90 mcg/actuation inhalerInhale 2 Puffs as instructed every 4 hours as needed for Wheezing/Shortness of Breath.Disp: 1 InhalerRfl: 0 LORazepam (ATIVAN) 0.5 mg tabTake 1 tablet by mouth three times daily as needed for up to 30 days.Disp: 30 tabletRfl: 1 Omeprazole (PRILOSEC) 40 mg capsuleTake 1 capsule by mouth once daily. as neededDisp: 30 capsuleRfl: 3 CONSULT TO GASTROENTEROLOGY [9010] Order #: [id number]: 1 ondansetron (ZOFRAN) 4 mg tabletTake 1 tablet by mouth every 8 hours as needed.Disp: 6 tabletRfl: 0 CONSULT TO NEUROLOGY [9019] Order #: [id number]: 1 MRI LIVER WO/W IVCON [[id number]] Order #: [id number] FUTURE MRI 3D POST PROCESSING [[id number]] Order #: [id number] FUTURE iv contrast (will be provided with radiology test)MRI Liver Inject, intravenously, once for 1 dose. No IV access, insert saline lock prior to the beginning of sedation, infusion, injection of imaging exam. Discontinue saline lock post exam. If Pt. has a central line or IVAD, may access for administration according to line specific nursing protocol. Once exam is complete flush line and de- access according to line specific nursing protocol in the MR contrast administration guidelines link.Disp: 1 EachRfl: 0 Prescriptions as of 06/26/2018 Sig: TRAZODONE 50 MG TABLET Take 1 tablet by mouth daily * ALBUTEROL SULFATE HFA 90 MCG/* Inhale 2 Puffs as instructed * CETIRIZINE 10 MG TABLET take 1 tablet by mouth once d* ESTRADIOL 0.025 MG/24 HR SEMI* 1 Patch every Tuesday and * LORAZEPAM 0.5 MG TABLET Take 1 tablet by mouth three * OMEPRAZOLE 40 MG CAPSULE,ANNIKA* Take 1 capsule by mouth once * ONDANSETRON HCL 4 MG TABLET Take 1 tablet by mouth every * IV CONTRAST (RADIOLOGY PROCED* MRI Liver Inject, intravenous* Problem List As Of Date 06/26/2018 Noted Resolved Asthma [J45.909] Abnormal involuntary movements(781.0) [R25.8, R*INVALID FOR*11/13/2015 ADJUSTMENT DISORDER WITH DEPRESSED MOOD [F43.21]INVALID FOR* Acute gastritis without mention of hemorrhage [*INVALID FOR*11/13/2015 ASCUS favor benign [R87.610] INVALID FOR*11/17/2011 CERVICAL HPV DNA POSITIVE [R87.810] INVALID FOR* ADD (Attention Deficit Disorder) [F98.8] INVALID FOR* Insomnia, unspecified [G47.00] INVALID FOR* More... 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 WPW (Wvcav-Xcpltefyo-Shjni syndrome) [I45.6] Gastro-esophageal reflux disease without esopha*INVALID FOR* Chronic sinusitis, unspecified [J32.9] INVALID FOR* 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] INVALID FOR* Asymptomatic menopausal state [Z78.0] INVALID FOR* Anxiety disorder, unspecified [F41.9] INVALID FOR* Acquired absence of both cervix and uterus [Z90*INVALID FOR* Paroxysmal supraventricular tachycardia (HCC) [* Palpitations [R00.2] skilled nursing current use of antiarrhythmic drug [Z* More... Status post ablation of accessory bypass tract *INVALID FOR* Prescriptions ordered this encounter Disp Refills Start End TRAZODONE 50 MG TABLET 30 t* 11 06/26/2018 Route: ORAL Sig: Take 1 tablet by mouth daily at bedtime. ALBUTEROL SULFATE HFA 90 MCG/ACTUATI* 1 In* 0 06/26/2018 Route: INHALATION Sig: Inhale 2 Puffs as instructed every 4 hours as needed for Wheezing/Shortness of Breath. LORAZEPAM 0.5 MG TABLET 30 t* 1 06/26/2018 07/26/2018 Class: Print RX Route: ORAL Sig: Take 1 tablet by mouth three times daily as needed for up to 30 days. OMEPRAZOLE 40 MG CAPSULE,DELAYED REL* 30 c* 3 06/26/2018 Route: ORAL Sig: Take 1 capsule by mouth once daily. as needed ONDANSETRON HCL 4 MG TABLET 6 ta* 0 06/26/2018 Route: ORAL Sig: Take 1 tablet by mouth every 8 hours as needed. IV CONTRAST (RADIOLOGY PROCEDURE) 1 Ea* 0 06/26/2018 06/27/2018 Class: In Office Sig: MRI Liver Inject, intravenously, once for 1 dose. No IV access, insert saline lock prior to the beginning of sedation, infusion, injection of imaging exam. Discontinue saline lock post exam. If Pt. has a central line or IVAD, may access for administration according to line specific nursing protocol. Once exam is complete flush line and de-access according to line specific nursing protocol in the MR contrast administration guidelines link. Medications Discontinued During This Encounter amoxicillin (AMOXIL) 875 mg tablet 28 t* 0 06/07/2018 06/26/2018 Route: ORAL Sig: Take 1 tablet by mouth twice daily. Disc: Course of therapy completed traZODone (DESYREL) 50 mg tablet 30 t* 5 03/15/2018 06/26/2018 Route: ORAL Sig: Take 1 tablet by mouth daily at bedtime. Disc: Reason for discontinue is not on file. albuterol HFA (VENTOLIN HFA) 90 mcg/* 1 In* 0 03/02/2017 06/26/2018 Route: INHALATION Sig: Inhale 2 Puffs as instructed every 4 hours as needed for Wheezing/Shortness of Breath. Disc: Reason for discontinue is not on file. LORazepam (ATIVAN) 0.5 mg tab 30 t* 0 05/22/2018 06/26/2018 Class: Call Rx Route: ORAL Sig: Take 1 tablet by mouth three times daily as needed for up to 30 days. Disc: Reason for discontinue is not on file. Encounter Status:Closed by ANDREW GONZALEZ MD on 06/27/18 PROGRESS Observed: 05/10/2018 Status: COMPLETED Source: [place] 3:57 PM [facility] RE[facility] HNO ID: [id number] Author: Aaron Brown Service: (none) Author Type: Nurse Practitioner Type: Progress Notes Filed: 05/10/2018 4:59 PM Note Text: HISTORY OF PRESENT ILLNESS copied forward: Ms. Delacruz is a 52 year old female who presents today for evaluation of arrhythmia. She states that she recalls experiencing symptoms suggestive of arrhythmia since a very young age, possibly age 8 or 9 years. She recalls experiencing palpitation, fluttering in the chest, and racing heartbeats. 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 She never experienced syncope. At approximately one and a half years ago she took a medication for a cold, and this medication included a decongestant. She experienced severe palpitations and racing heartbeats. She was evaluated by her primary care physician, an EKG revealed WPW pattern. At some point she was referred to Dr. Mcknight at the [facility]. Her brother has WPW syndrome and was already a patient of Dr. Mcknight. In November 2016 she underwent EP study and attempted catheter ablation. She states the procedure was unsuccessful due to the location of the pathway. She was then treated with flecainide, and she states she did well for a short period of time with this medication. However, she began experiencing recurrence of the palpitations. She describes brief, momentary palpitations that she agrees might be extra beats. She also describes more prolonged episodes of palpitations associated with rapid or racing heartbeats lasting 5-10 minutes. She believes the triggers for the symptoms include stress, anxiety and also physical activities such as working out. She does not feel that the flecainide is adequately controlling her excessively bothersome symptoms. She presents for evaluation and specifically she is inquiring about whether she can undergo a repeat attempt at catheter ablation. Nicki Delacruz underwent a comprehensive electrophysiology study she had inducible left posterior septal accessory pathway and underwent a successful RF catheter ablation. The flecainide which was held prior to the procedure was not resumed. ? Today, Nicki Delacruz presents for follow up of SVT, WPW, she underwent an EPS and SVT RFA. The Flecainide wasn't resumed. She reports that she experienced CP on 04/02/18 and she was seen in the ED. She was discharged home after undergoing a CT scan of the chest which was negative for PE, EKG was WNL. She has noticed occasional dizziness associated with HR around 48-52 bpm according to her apple watch. She has had transient tachycardia with HR 150-170's, the HR's are recorded on her Apple watch. She has occasional fluttering last for 10-15 seconds. She reports that the fluttering sensation feels a lot like the SVT that she has had in the past. She denies syncope. 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; attempt at catheter ablation 11/2016 failed; she continues to experience intermittent palpitations and tachycardia despite treatment with flecainide; successful RFCA 03/2018 PAST SURGICAL HISTORY Procedure Laterality Date - BLADDER SURGERY HX 11/2015 bladder sling - DELIVERY ONLY 85, 88,92 , low cervical X3 - ENLARGE BREAST WITH IMPLANT 11/2007 Breast augmentation - IUD 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 Mcknight; right midseptal AP unable to be ablated despite cryoablation and RF ablation attempts; AP described as not having capability for extremely rapid antegrade conduction - SVT ABLATION W/ EP COMPLETE 03/28/2018 left posteroseptal AP just within the proximal CS; Stereotaxis RF with Carto guidance, successful elimination of AP conduction; no SVT inducible pre- or post-ablation; [facility] Dr. Luong Social History Substance Use Topics - Smoking status: Never Smoker - Smokeless tobacco: Never Used - Alcohol use Yes Comment: occasionally FAMILY HISTORY Problem Relation Age of Onset - Thyroid Mother goiter - Palpitations [OTHER] Mother - Asthma Father - Asthma Son - Palpitations [OTHER] Son - Thyroid Maternal Grandmother goiter - Other [OTHER] Maternal Grandfather young in MVA - Emphysema Paternal Grandmother - Heart Failure Paternal Grandmother - tobacco use [OTHER] Paternal Grandmother - Heart disease Paternal Grandfather had a heart attack and at young age - Stroke Paternal Grandfather - Prostate Cancer Paternal Grandfather - Asthma Daughter - Brain tumor [OTHER] Daughter benign - Seizures Brother - Heart Brother WPW syndrome; ablation unsuccessful -- too close to AV node - Other [OTHER] Other no unexplained sudden , crib deaths, unexplained syncope ALLERGIES Allergen Reactions - Citalopram Other: See Comments Did not tolerate, ? Mental status changes - Dust Intolerance - Liquid Bandage [Enb* Rash blisters and rash - Mold Other: See Comments Intolerance; itchy throat, runny nose - Pneumovax 23 [Pneum* Swelling tongue swollen arm - Pollen Intolerance - Propranolol Mental Status Change - Smoke Intolerance - Tetracycline GI Upset Abdominal pain/cramping traZODone (DESYREL) 50 mg tablet Take 1 tablet by mouth daily at bedtime. cetirizine (ZYRTEC) 10 mg tablet take 1 tablet by mouth once daily estradiol (NOBLE, VIVELLE-DOT) 0.025 mg/24 hr 1 Patch every Tuesday and Tuesday. LORazepam (ATIVAN) 0.5 mg tab Take 1 tablet by mouth three times daily as needed. albuterol HFA (VENTOLIN HFA) 90 mcg/actuation inhaler Inhale 2 Puffs as instructed every 4 hours as needed for Wheezing/Shortness of Breath. ondansetron orally disintegrating (ZOFRAN ODT) 4 mg disintegrating tablet Take 1 tablet by mouth every 8 hours as needed for Nausea/Vomiting. REVIEW OF SYSTEMS PAIN ASSESSMENT: Negative for pain, history of chronic pain, or current treatment for a chronic pain condition. GENERAL: No weight loss, malaise or fevers NECK: Negative for lumps, goiter, pain and significant neck swelling RESPIRATORY: Negative for cough, hemoptysis, wheezing, COPD, dyspnea or shortness of breath CARDIOVASCULAR: See HPI GI: No nausea, vomiting, or diarrhea MUSCULOSKELETAL: Negative for joint pain or swelling, back pain or muscle pain SKIN: Negative for lesions, rash, and itching PSYCH: Negative for sleep disturbance, mood disorder and recent psychosocial stressors HEMATOLOGY/LYMPHOLOGY: Negative for prolonged bleeding, bruising easily or swollen nodes ENDOCRINE: Negative for cold or heat intolerance, polyuria, polydipsia and goiter NEURO: No history of headaches, syncope, paralysis, seizures or tremors BP 110/76 Pulse 85 Ht 5' 2 (1.58m) Wt 146 lb 6.4 oz (66.4kg) SpO2 98% LMP 05/06/2014 BMI 26.77 kg/(m2). PHYSICAL EXAMINATION: General appearance: Well appearing, alert, in no acute distress, well-hydrated, well nourished. Neck: Negative findings: no jugular venous distention Lungs: Lungs clear to auscultation. No wheezing, rhonchi, rales Heart: RRR without murmur, gallop, or rubs. No ectopy Abdomen: Abdomen soft, non-tender. Bowel sounds normal. No masses, organomegaly Extremities: No deformities, edema, skin discoloration, clubbing or cyanosis. Good capillary refill. Neuro: Oriented X 3 CARDIOVASCULAR MEDICINE TESTING: Electrocardiogram: SR 69 bpm, DC 114 msec, QRS 94 msec, QTC 435 msec I have personally reviewed the Electrocardiogram. IMPRESSION: Ms. Delacruz is a 52 year old female of Dr. 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 She is status post an RF catheter ablation to the left posterior septal accessory pathway on March 28, 2018. She believes she has had episodes of bradycardia as well as tachycardia determined by the [employer]. She has experienced occasional fluttering sensation lasting 15 seconds. She has had associated dizziness. Denies syncope or near-syncope. She is scheduled to wear a 24-hour Holter monitor in about 2 weeks to assess for arrhythmia. She will be contacted with those results. She will otherwise follow-up with Dr. Luong in 6 months. PLAN AND RECOMMENDATIONS: (I47.1) Paroxysmal supraventricular tachycardia (HCC) (primary encounter diagnosis) Comment: Stable, see above Plan: EKG WITH INTERPRETATION (R00.2) Palpitations Comment: She has had recurrences see above, scheduled to wear Holter monitor on May 26, 2018. Plan: EKG WITH INTERPRETATION Payton Brown, MSN, PUBLIC ADDRESS SYSTEM INSTALLER.SOURCE INSPECTOR BOBBIOV Observed: 05/10/2018 Status: COMPLETED Source: [facility] 3:30 PM CLINIC OTHER CAMPUS REPOSITORY Office Visit (AGCARDPHRA) NICKI DELACRUZ ([id number]) 1965 F NFR Date Time Provider Department 05/10/18 3:30 PM AARON BROWN (SOURCE INSPECTOR) AGCARDPHRA During your visit today, we recorded the following information about you: Pulse Blood pressure Weight Height 85/minute 110/76 66.4 kg 1.575 m Alycia Vernon CMA 05/10/2018 3:26 PM Signed Mrs. Delacruz is here for a 6 week hospital follow up. No cardiac complaints today. KANDI Sutton, MSN, PUBLIC ADDRESS SYSTEM INSTALLER.SOURCE INSPECTOR 05/10/2018 4:59 PM Signed HISTORY OF PRESENT ILLNESS copied forward: Ms. Delacruz is a 52 year old female who presents today for evaluation of arrhythmia. She states that she recalls experiencing symptoms suggestive of arrhythmia since a very young age, possibly age 8 or 9 years. She recalls experiencing palpitation, fluttering in the chest, and racing heartbeats. 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 She never experienced syncope. At approximately one and a half years ago she took a medication for a cold, and this medication included a decongestant. She experienced severe palpitations and racing heartbeats. She was evaluated by her primary care physician, an EKG revealed WPW pattern. At some point she was referred to Dr. Mcknight at the [facility]. Her brother has WPW syndrome and was already a patient of Dr. Mcknight. In November 2016 she underwent EP study and attempted catheter ablation. She states the procedure was unsuccessful due to the location of the pathway. She was then treated with flecainide, and she states she did well for a short period of time with this medication. However, she began experiencing recurrence of the palpitations. She describes brief, momentary palpitations that she agrees might be extra beats. She also describes more prolonged episodes of palpitations associated with rapid or racing heartbeats lasting 5-10 minutes. She believes the triggers for the symptoms include stress, anxiety and also physical activities such as working out. She does not feel that the flecainide is adequately controlling her excessively bothersome symptoms. She presents for evaluation and specifically she is inquiring about whether she can undergo a repeat attempt at catheter ablation. Nicki Delacruz underwent a comprehensive electrophysiology study she had inducible left posterior septal accessory pathway and underwent a successful RF catheter ablation. The flecainide which was held prior to the procedure was not resumed. ? Today, Nicki Delacruz presents for follow up of SVT, WPW, she underwent an EPS and SVT RFA. The Flecainide wasn't resumed. She reports that she experienced CP on 04/02/18 and she was seen in the ED. She was discharged home after undergoing a CT scan of the chest which was negative for PE, EKG was WNL. She has noticed occasional dizziness associated with HR around 48-52 bpm according to her apple watch. She has had transient tachycardia with HR 150-170's, the HR's are recorded on her Apple watch. She has occasional fluttering last for 10-15 seconds. She reports that the fluttering sensation feels a lot like the SVT that she has had in the past. She denies syncope. 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; attempt at catheter ablation 11/2016 failed; she continues to experience intermittent palpitations and tachycardia despite treatment with flecainide; successful RFCA 03/2018 PAST SURGICAL HISTORY Procedure Laterality Date - BLADDER SURGERY HX 11/2015 bladder sling - DELIVERY ONLY 85, 88,92 , low cervical X3 - ENLARGE BREAST WITH IMPLANT 11/2007 Breast augmentation - IUD 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 08/30/2007 Mirena - removed - OOPHORECTOMY, PART/TOTAL UNILAT/BILAT 2017 - REMOVE TONSILS/ADENOIDS,<12 Y/O 1969 - S PK [facility] [id number] 2013 lav RICKY biltareal salpingectomy - SVT ABLATION W/ EP COMPLETE 11/24/2016 [facility], Dr. Mcknight; right midseptal AP unable to be ablated despite cryoablation and RF ablation attempts; AP described as not having capability for extremely rapid antegrade conduction - SVT ABLATION W/ EP COMPLETE 03/28/2018 left posteroseptal AP just within the proximal CS; Stereotaxis RF with Carto guidance, successful elimination of AP conduction; no SVT inducible pre- or post-ablation; [facility] Dr. Luong Social History Substance Use Topics - Smoking status: Never Smoker - Smokeless tobacco: Never Used - Alcohol use Yes Comment: occasionally FAMILY HISTORY Problem Relation Age of Onset - Thyroid Mother goiter - Palpitations [OTHER] Mother - Asthma Father - Asthma Son - Palpitations [OTHER] Son - Thyroid Maternal Grandmother goiter - Other [OTHER] Maternal Grandfather young in MVA - Emphysema Paternal Grandmother - Heart Failure Paternal Grandmother - tobacco use [OTHER] Paternal Grandmother - Heart disease Paternal Grandfather had a heart attack and at young age - Stroke Paternal Grandfather - Prostate Cancer Paternal Grandfather - Asthma Daughter - Brain tumor [OTHER] Daughter benign - Seizures Brother - Heart Brother WPW syndrome; ablation unsuccessful -- too close to AV node - Other [OTHER] Other no unexplained sudden , crib deaths, unexplained syncope ALLERGIES Allergen Reactions - Citalopram Other: See Comments Did not tolerate, ? Mental status changes - Dust Intolerance - Liquid Bandage [Enb* Rash blisters and rash - Mold Other: See Comments Intolerance; itchy throat, runny nose - Pneumovax 23 [Pneum* Swelling tongue swollen arm - Pollen Intolerance - Propranolol Mental Status Change - Smoke Intolerance - Tetracycline GI Upset Abdominal pain/cramping traZODone (DESYREL) 50 mg tablet Take 1 tablet by mouth daily at bedtime. cetirizine (ZYRTEC) 10 mg tablet take 1 tablet by mouth once daily estradiol (NOBLE, VIVELLE-DOT) 0.025 mg/24 hr 1 Patch every Tuesday and Tuesday. LORazepam (ATIVAN) 0.5 mg tab Take 1 tablet by mouth three times daily as needed. albuterol HFA (VENTOLIN HFA) 90 mcg/actuation inhaler Inhale 2 Puffs as instructed every 4 hours as needed for Wheezing/Shortness of Breath. ondansetron orally disintegrating (ZOFRAN ODT) 4 mg disintegrating tablet Take 1 tablet by mouth every 8 hours as needed for Nausea/Vomiting. REVIEW OF SYSTEMS PAIN ASSESSMENT: Negative for pain, history of chronic pain, or current treatment for a chronic pain condition. GENERAL: No weight loss, malaise or fevers NECK: Negative for lumps, goiter, pain and significant neck swelling RESPIRATORY: Negative for cough, hemoptysis, wheezing, COPD, dyspnea or shortness of breath CARDIOVASCULAR: See HPI GI: No nausea, vomiting, or diarrhea MUSCULOSKELETAL: Negative for joint pain or swelling, back pain or muscle pain SKIN: Negative for lesions, rash, and itching PSYCH: Negative for sleep disturbance, mood disorder and recent psychosocial stressors HEMATOLOGY/LYMPHOLOGY: Negative for prolonged bleeding, bruising easily or swollen nodes ENDOCRINE: Negative for cold or heat intolerance, polyuria, polydipsia and goiter NEURO: No history of headaches, syncope, paralysis, seizures or tremors BP 110/76 Pulse 85 Ht 5' 2 (1.58m) Wt 146 lb 6.4 oz (66.4kg) SpO2 98% LMP 05/06/2014 BMI 26.77 kg/(m2). PHYSICAL EXAMINATION: General appearance: Well appearing, alert, in no acute distress, well-hydrated, well nourished. Neck: Negative findings: no jugular venous distention Lungs: Lungs clear to auscultation. No wheezing, rhonchi, rales Heart: RRR without murmur, gallop, or rubs. No ectopy Abdomen: Abdomen soft, non-tender. Bowel sounds normal. No masses, organomegaly Extremities: No deformities, edema, skin discoloration, clubbing or cyanosis. Good capillary refill. Neuro: Oriented X 3 CARDIOVASCULAR MEDICINE TESTING: Electrocardiogram: SR 69 bpm, DC 114 msec, QRS 94 msec, QTC 435 msec I have personally reviewed the Electrocardiogram. IMPRESSION: Ms. Delacruz is a 52 [address] old female of Dr. 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 She is status post an RF catheter ablation to the left posterior septal accessory pathway on March 28, 2018. She believes she has had episodes of bradycardia as well as tachycardia determined by the apple watch. She has experienced occasional fluttering sensation lasting 15 seconds. She has had associated dizziness. Denies syncope or near-syncope. She is scheduled to wear a 24-hour Holter monitor in about 2 weeks to assess for arrhythmia. She will be contacted with those results. She will otherwise follow-up with Dr. Luong in 6 months. PLAN AND RECOMMENDATIONS: (I47.1) Paroxysmal supraventricular tachycardia (HCC) (primary encounter diagnosis) Comment: Stable, see above Plan: EKG WITH INTERPRETATION (R00.2) Palpitations Comment: She has had recurrences see above, scheduled to wear Holter monitor on May 26, 2018. Plan: EKG WITH INTERPRETATION Payton Brown, MSN, PUBLIC ADDRESS SYSTEM INSTALLER.JESSICA Brown, MSN, PUBLIC ADDRESS SYSTEM INSTALLER.JESSICA 05/10/2018 4:15 PM Signed Tachycardia (Fast Heartbeat) What is tachycardia? Tachycardia is a resting heart rate that stays above 100 beats per minute when you are resting. The normal adult heart rate ranges from about 50 to 100 beats per minute. What is the cause? An electrical signal in your heart starts each heartbeat, causing the heart muscle to squeeze (contract). Normally, this signal starts in the upper right chamber of the heart (the right atrium) at a place called the sinus node. The signal then follows pathways to the upper left atrium and to the lower chambers of the heart (the ventricles). Many different things can cause a fast resting heart rate. Some of the conditions that can cause your heart to beat faster are: -Anemia -High blood pressure - -Fever -Stress -Thyroid problems Problems with the heart can cause a fast heart rate. For example: -Changes in the electrical signal that causes your heart to beat can make your heart beat faster. -Muscles in the upper chambers of the heart may tend to quiver and send random signals to the lower chambers of the heart. -The heartbeat may start in the lower chambers of the heart rather than the upper chamber. What are the symptoms? The main symptom is feeling your heart beating fast. Other symptoms may include: -Lightheadedness or fainting -Nausea -Cold sweat -Shortness of breath -Chest pain -Weakness Contact your healthcare provider if you have any of these symptoms in addition to a fast heartbeat. How is it diagnosed? Your healthcare provider will ask about your symptoms and medical history and examine you. Tests may include: -Blood tests -Chest X-rays -An ECG (also called an EKG or electrocardiogram), which measures and records your heartbeat. You may have an ECG while you are resting or while you exercise on a treadmill. You may also be asked to wear a small portable ECG monitor for a few days or longer. -An electrophysiology study, which uses tiny wires put into your heart through your veins to look at the electrical paths in your heart How is it treated? The treatment depends on the type of tachycardia that you have. Treatment may include: -Medicine to slow your heartbeat -Ablation, which uses a small tube called a catheter to deliver electrical pulses to the inside of the heart. The electrical pulses make small scars that block abnormal electrical pathways. This helps you have a regular heart rhythm. -An implantable cardiac defibrillator (ICD), which is a device that can shock the heart back to a regular rhythm. In cases of life-threatening heart rhythm problems, ICDs can provide an instant, life-saving electrical shock before medical help arrives. You may also receive treatment for any health problems you have that may be causing tachycardia. How can I take care of myself? If you have heart disease, high blood pressure, or another medical problem, follow your treatment plan. Be sure to take all medicines as prescribed by your provider. Try to have a heart-healthy lifestyle: -Eat a healthy diet. -Try to keep a healthy weight. If you are overweight, lose weight. -Stay fit with the right kind of exercise for you. -Learn ways to manage stress. -If you smoke, try to quit. Talk to your healthcare provider about ways to quit smoking. -If you want to drink alcohol, ask your healthcare provider how much is safe for you to drink. -Try to get at least 7 to 9 hours of sleep each night. Ask your provider: -How and when you will hear your test results -How long it will take to recover -What activities you should avoid and when you can return to your normal activities -How to take care of yourself at home -What symptoms or problems you should watch for and what to do if you have them Make sure you know when you should come back for a checkup. How can I help prevent tachycardia? There is no specific way to prevent tachycardia, but a healthy lifestyle can help prevent heart disease, which can cause tachycardia. Developed by [employer]. Published by [employer]. Copyright ?2013 [employer] and/or one of its subsidiaries. All rights reserved. Referring Provider: LABINA LUONG [[id number]] Allergies As of Date: 05/10/2018 Noted Allergy Reaction CITALOPRAM 09/07/2017 14 - Other: See Comments Comments: Did not tolerate, ? Mental status changes DUST 09/08/2005 5 - Intolerance LIQUID BANDAGE (ENBUCRILATE) 12/27/2017 2 - Rash Comments: blisters and rash MOLD 09/08/2005 14 - Other: See Comments Comments: Intolerance; itchy throat, runny nose PNEUMOVAX 23 (PNEUMOCOCCAL 23-DAWIT*11/20/2013 7 - Swelling Comments: tongue swollen arm POLLEN 09/08/2005 5 - Intolerance PROPRANOLOL 01/25/2007 1 - Mental Status Change SMOKE 09/08/2005 5 - Intolerance TETRACYCLINE 09/08/2005 8 - GI Upset Comments: Abdominal pain/cramping Date Reviewed: 05/10/2018 Reviewed by: Aaron BucknerApplication SpecHelio Brown - Fully Assessed Reason for Visit: Hospital Follow Up [177] Cmt: s/p catheter ablation Primary Visit Diagnosis:Paroxysmal supraventricular tachycardia (HCC) [I47.1] Other Visit Diagnosis:Palpitations [R00.2] Order(s):EKG WITH INTERPRETATION [92581YMR] Order #: [id number]: 1 Prescriptions as of 05/10/2018 Sig: TRAZODONE 50 MG TABLET Take 1 tablet by mouth daily * CETIRIZINE 10 MG TABLET take 1 tablet by mouth once d* ESTRADIOL 0.025 MG/24 HR SEMI* 1 Patch every Tuesday and * LORAZEPAM 0.5 MG TABLET Take 1 tablet by mouth three * Patient taking differently: Take 0.5 mg by mouth three ti* ALBUTEROL SULFATE HFA 90 MCG/* Inhale 2 Puffs as instructed * Problem List As Of Date 05/10/2018 Noted Resolved Asthma [J45.909] Abnormal involuntary movements(781.0) [R25.8, R*INVALID FOR*11/13/2015 ADJUSTMENT DISORDER WITH DEPRESSED MOOD [F43.21]INVALID FOR* Acute gastritis without mention of hemorrhage [*INVALID FOR*11/13/2015 ASCUS favor benign [R87.610] INVALID FOR*11/17/2011 CERVICAL HPV DNA POSITIVE [R87.810] INVALID FOR* ADD (Attention Deficit Disorder) [F98.8] INVALID FOR* Insomnia, unspecified [G47.00] INVALID FOR* More... Rapid palpitations [R00.2] INVALID FOR*03/23/2018 Jqqzs-Sfjywkbsp-Ykbjo (WPW) syndrome [I45.6] INVALID FOR*03/23/2018 Chest discomfort [R07.89] INVALID FOR*11/13/2015 Abnormal uterine bleeding [N93.9] INVALID FOR*09/02/2014 Anxiety [F41.9] INVALID FOR* Primary insomnia [F51.01] INVALID FOR* Stress incontinence in female [N39.3] INVALID FOR* Encounter for screening colonoscopy [Z12.11] INVALID FOR* Complex cyst of right ovary [N83.291] INVALID FOR* Biliary dyskinesia [K82.8] INVALID FOR* More... WPW (Jchpx-Gxgwibuhp-Woxcg syndrome) [I45.6] Gastro-esophageal reflux disease without esopha*INVALID FOR* Chronic sinusitis, unspecified [J32.9] INVALID FOR* 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] INVALID FOR* Asymptomatic menopausal state [Z78.0] INVALID FOR* Anxiety disorder, unspecified [F41.9] INVALID FOR* Acquired absence of both cervix and uterus [Z90*INVALID FOR* Paroxysmal supraventricular tachycardia (HCC) [* Palpitations [R00.2] terminologist current use of antiarrhythmic drug [Z* More... Status post ablation of accessory bypass tract *INVALID FOR* Other instructions from your clinician: Tachycardia (Fast Heartbeat) What is tachycardia? Tachycardia is a resting heart rate that stays above 100 beats per minute when you are resting. The normal adult heart rate ranges from about 50 to 100 beats per minute. What is the cause? An electrical signal in your heart starts each heartbeat, causing the heart muscle to squeeze (contract). Normally, this signal starts in the upper right chamber of the heart (the right atrium) at a place called the sinus node. The signal then follows pathways to the upper left atrium and to the lower chambers of the heart (the ventricles). Many different things can cause a fast resting heart rate. Some of the conditions that can cause your heart to beat faster are: -Anemia -High blood pressure - -Fever -Stress -Thyroid problems Problems with the heart can cause a fast heart rate. For example: -Changes in the electrical signal that causes your heart to beat can make your heart beat faster. -Muscles in the upper chambers of the heart may tend to quiver and send random signals to the lower chambers of the heart. -The heartbeat may start in the lower chambers of the heart rather than the upper chamber. What are the symptoms? The main symptom is feeling your heart beating fast. Other symptoms may include: -Lightheadedness or fainting -Nausea -Cold sweat -Shortness of breath -Chest pain -Weakness Contact your healthcare provider if you have any of these symptoms in addition to a fast heartbeat. How is it diagnosed? Your healthcare provider will ask about your symptoms and medical history and examine you. Tests may include: -Blood tests -Chest X-rays -An ECG (also called an EKG or electrocardiogram), which measures and records your heartbeat. You may have an ECG while you are resting or while you exercise on a treadmill. You may also be asked to wear a small portable ECG monitor for a few days or longer. -An electrophysiology study, which uses tiny wires put into your heart through your veins to look at the electrical paths in your heart How is it treated? The treatment depends on the type of tachycardia that you have. Treatment may include: -Medicine to slow your heartbeat -Ablation, which uses a small tube called a catheter to deliver electrical pulses to the inside of the heart. The electrical pulses make small scars that block abnormal electrical pathways. This helps you have a regular heart rhythm. -An implantable cardiac defibrillator (ICD), which is a device that can shock the heart back to a regular rhythm. In cases of life-threatening heart rhythm problems, ICDs can provide an instant, life- saving electrical shock before medical help arrives. You may also receive treatment for any health problems you have that may be causing tachycardia. How can I take care of myself? If you have heart disease, high blood pressure, or another medical problem, follow your treatment plan. Be sure to take all medicines as prescribed by your provider. Try to have a heart-healthy lifestyle: -Eat a healthy diet. -Try to keep a healthy weight. If you are overweight, lose weight. -Stay fit with the right kind of exercise for you. -Learn ways to manage stress. -If you smoke, try to quit. Talk to your healthcare provider about ways to quit smoking. -If you want to drink alcohol, ask your healthcare provider how much is safe for you to drink. -Try to get at least 7 to 9 hours of sleep each night. Ask your provider: -How and when you will hear your test results -How long it will take to recover -What activities you should avoid and when you can return to your normal activities -How to take care of yourself at home -What symptoms or problems you should watch for and what to do if you have them Make sure you know when you should come back for a checkup. How can I help prevent tachycardia? There is no specific way to prevent tachycardia, but a healthy lifestyle can help prevent heart disease, which can cause tachycardia. Developed by [employer]. Published by [employer]. Copyright ?2013 [employer] and/or one of its subsidiaries. All rights reserved. Visit Notes: >> Alycia (Irma Vernon TueMay 10, 2018 3:25 PM Status: Signed Mrs. Delacruz is here for a 6 week hospital follow up. No cardiac complaints today. Alycia Vernon CMA Medications Discontinued During This Encounter ondansetron orally disintegrating (Z* 20 t* 0 04/03/2018 05/10/2018 Class: Print RX Route: ORAL Sig: Take 1 tablet by mouth every 8 hours as needed for Nausea/Vomiting. Patient not taking: Reported on 05/10/2018 Disc: Course of therapy completed Disposition: Return in about 6 months (around 11/10/2018) for Dr. Luong. Follow-up and Disposition History Recorded Letter Text Encounter Status:Closed by KEVIN, JOSIE, JESSICA, PAYTON Choudhary on 05/10/18 CNCO Observed: 04/18/2018 Status: COMPLETED Source: [facility] 12:00 AM CLINIC OTHER CAMPUS REPOSITORY Letter Text [facility] [place] [id number] [facility] [address] Dept: [phone] Dept Albina Luong MD April 18, 2018 Nicki Delacruz [address] [facility] [address] 1965 Dear , Our office has tried to contact you but have been unsuccessful. Please contact our office regarding scheduling a Holter Monitor. Please notify us of any change of your phone number or address. Sincerely, Albina Luong M.D. (Signed electronically to expedite mailing) CHRISS Observed: 04/18/2018 Status: COMPLETED Source: [place] 12:00 AM CLINIC OTHER CAMPUS REPOSITORY Telephone (AGCARDPOB) NICKI DELACRUZ ([id number]) 1965 F NFR Date Time Provider Department 04/18/18 ALBINA LUONG [facility]PO[place] During your visit today, we recorded the following information about you: Latasha Pedroza 04/18/2018 9:23 AM Signed Centralized scheduling has attempted to call this patient twice to schedule a Holter Monitor. Patient has not called back, so I am sending her a letter in the mail to call in and schedule. Kate Butcher MA 04/18/2018 9:56 AM Signed Mailed letter to patient. Kate Butcher, 04/18/2018 09:55:58 Allergies As of Date: 04/18/2018 Noted Allergy Reaction CITALOPRAM 09/07/2017 14 - Other: See Comments Comments: Did not tolerate, ? Mental status changes DUST 09/08/2005 5 - Intolerance LIQUID BANDAGE (ENBUCRILATE) 12/27/2017 2 - Rash Comments: blisters and rash MOLD 09/08/2005 14 - Other: See Comments Comments: Intolerance; itchy throat, runny nose PNEUMOVAX 23 (PNEUMOCOCCAL 23-DAWIT*11/20/2013 7 - Swelling Comments: tongue swollen arm POLLEN 09/08/2005 5 - Intolerance PROPRANOLOL 01/25/2007 1 - Mental Status Change SMOKE 09/08/2005 5 - Intolerance TETRACYCLINE 09/08/2005 8 - GI Upset Comments: Abdominal pain/cramping Date Reviewed: 04/02/2018 Reviewed by: Adenike (Rn) VINCENT Betancourt - Fully Assessed Reason for Visit: Preparations For Procedures [899] Cmt: Holter Prescriptions as of 04/18/2018 Sig: ONDANSETRON 4 MG DISINTEGRATI* Take 1 tablet by mouth every * TRAZODONE 50 MG TABLET Take 1 tablet by mouth daily * CETIRIZINE 10 MG TABLET take 1 tablet by mouth once d* ESTRADIOL 0.025 MG/24 HR SEMI* 1 Patch every Tuesday and * LORAZEPAM 0.5 MG TABLET Take 1 tablet by mouth three * Patient taking differently: Take 0.5 mg by mouth three ti* ALBUTEROL SULFATE HFA 90 MCG/* Inhale 2 Puffs as instructed * Problem List As Of Date 04/18/2018 Noted Resolved Asthma [J45.909] Abnormal involuntary movements(781.0) [R25.8, R*INVALID FOR*11/13/2015 ADJUSTMENT DISORDER WITH DEPRESSED MOOD [F43.21]INVALID FOR* Acute gastritis without mention of hemorrhage [*INVALID FOR*11/13/2015 ASCUS favor benign [R87.610] INVALID FOR*11/17/2011 CERVICAL HPV DNA POSITIVE [R87.810] INVALID FOR* ADD (Attention Deficit Disorder) [F98.8] INVALID FOR* Insomnia, unspecified [G47.00] INVALID FOR* More... 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 WPW (Bpitf-Renktwbaf-Xbhse syndrome) [I45.6] Gastro-esophageal reflux disease without esopha*INVALID FOR* Chronic sinusitis, unspecified [J32.9] INVALID FOR* 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] INVALID FOR* Asymptomatic menopausal state [Z78.0] INVALID FOR* Anxiety disorder, unspecified [F41.9] INVALID FOR* Acquired absence of both cervix and uterus [Z90*INVALID FOR* Paroxysmal supraventricular tachycardia (HCC) [* Palpitations [R00.2] terminologist current use of antiarrhythmic drug [Z* More... Status post ablation of accessory bypass tract *INVALID FOR* Encounter Status:Closed by LATASHA PEDROZA on 04/18/18 CHRISS Observed: 04/04/2018 Status: COMPLETED Source: [place] 12:00 AM [facility] OTHER CAMPUS REPOSITORY Telephone (AGCARDPOB) NICKI DELACRUZ ([id number]) 1965 F NFR Date Time Provider Department 04/04/18 ALBINA LUONG AGCL[facility] During your visit today, we recorded the following information about you: Venecia Rivas RN 04/04/2018 4:38 PM Addendum Patient called in with an FYI to let you know that she has been having increased heart rates 120-130 bpm with activity today. Rates decrease to 90s bpm with rest. She is c/o of palpitations and intermittent lightheadedness. She was recently seen in the ED and prefers not to go back if not necessary. Patient asking for your thoughts. VINCENT Simental MD 04/04/2018 8:47 PM Signed Attempted to reach Ms. Delacruz on her listed number. No answer so I left a message for her. Reviewed the ER notes and studies performed including CT scan, EKG. These were fairly unremarkable. Unclear why she might be feeling tachycardia and palpitations. Left message to contact the office on and we can get an update on how she is doing, consider having her come in for an EKG in the office. Consider cardiac event monitoring or possibly even ambulatory Holter monitoring if the symptoms occur reliably frequently throughout a day or so. Left instructions with the message that if she feels severe symptoms she will need to go to the ER. Albina Luong MD April 04, 2018 8:47 PM Venecia Rivas RN 04/07/2018 2:45 PM Signed Ms Delacruz returned my call. She states that she has been feeling better over the past couple days. She is reporting that her heart rates have been fluctuating as high as 190 bpm with activity and as low as 40 bpm at rest. She states that this is occurring daily. Patient agreeable to monitor if that is what is recommended. VINCENT Simental MD 04/10/2018 3:19 PM Signed If the symptoms are occurring daily then a 48-hour ambulatory Holter monitor would be appropriate. Otherwise a 2-week patch electrode monitor would be next best option. Albina Luong MD April 10, 2018 3:19 PM Venecia Rivas RN 04/12/2018 9:52 AM Signed LM for patient to call [facility] to discuss. VINCENT Simental RN 04/12/2018 2:24 PM Addendum Pt calls back to report since the high heart rate reported 04/07/18 she has had less frequent and severe symptoms. She reports solitary daily flutter but highest rate noted is 113 bpm. Pt feels a longer monitor would be best. 2 week patch monitor ordered per Dr Luong's order. VINCENT Lester RN 04/12/2018 2:24 PM Signed Addended by: ALEJANDRO BARRETT on: 04/12/2018 02:24 PM Modules accepted: Orders Allergies As of Date: 04/04/2018 Noted Allergy Reaction CITALOPRAM 09/07/2017 14 - Other: See Comments Comments: Did not tolerate, ? Mental status changes DUST 09/08/2005 5 - Intolerance LIQUID BANDAGE (ENBUCRILATE) 12/27/2017 2 - Rash Comments: blisters and rash MOLD 09/08/2005 14 - Other: See Comments Comments: Intolerance; itchy throat, runny nose PNEUMOVAX 23 (PNEUMOCOCCAL 23-DAWIT*11/20/2013 7 - Swelling Comments: tongue swollen arm POLLEN 09/08/2005 5 - Intolerance PROPRANOLOL 01/25/2007 1 - Mental Status Change SMOKE 09/08/2005 5 - Intolerance TETRACYCLINE 09/08/2005 8 - GI Upset Comments: Abdominal pain/cramping Date Reviewed: 04/02/2018 Reviewed by: Adenike (Rn) VINCENT Betancourt - Fully Assessed Reason for Visit: Tachycardia [Other] Returning Patient's Call [[id number]] Reason For Visit History Recorded Primary Visit Diagnosis:Paroxysmal supraventricular tachycardia (HCC) [I47.1] Other Visit Diagnosis:Palpitations [R00.2] Order(s):HOLTER MONITOR 48 HOUR [[id number]] Order #: [id number] FUTURE Prescriptions as of 04/04/2018 Sig: ONDANSETRON 4 MG DISINTEGRATI* Take 1 tablet by mouth every * TRAZODONE 50 MG TABLET Take 1 tablet by mouth daily * CETIRIZINE 10 MG TABLET take 1 tablet by mouth once d* ESTRADIOL 0.025 MG/24 HR SEMI* 1 Patch every Tuesday and * LORAZEPAM 0.5 MG TABLET Take 1 tablet by mouth three * Patient taking differently: Take 0.5 mg by mouth three ti* ALBUTEROL SULFATE HFA 90 MCG/* Inhale 2 Puffs as instructed * Problem List As Of Date 04/04/2018 Noted Resolved Asthma [J45.909] Abnormal involuntary movements(781.0) [R25.8, R*INVALID FOR*11/13/2015 ADJUSTMENT DISORDER WITH DEPRESSED MOOD [F43.21]INVALID FOR* Acute gastritis without mention of hemorrhage [*INVALID FOR*11/13/2015 ASCUS favor benign [R87.610] INVALID FOR*11/17/2011 CERVICAL HPV DNA POSITIVE [R87.810] INVALID FOR* ADD (Attention Deficit Disorder) [F98.8] INVALID FOR* Insomnia, unspecified [G47.00] INVALID FOR* More... Rapid palpitations [R00.2] INVALID FOR*03/23/2018 Qwmvy-Txmmcvwpg-Gkyxm (WPW) syndrome [I45.6] INVALID FOR*03/23/2018 Chest discomfort [R07.89] INVALID FOR*11/13/2015 Abnormal uterine bleeding [N93.9] INVALID FOR*09/02/2014 Anxiety [F41.9] INVALID FOR* Primary insomnia [F51.01] INVALID FOR* Stress incontinence in female [N39.3] INVALID FOR* Encounter for screening colonoscopy [Z12.11] INVALID FOR* Complex cyst of right ovary [N83.291] INVALID FOR* Biliary dyskinesia [K82.8] INVALID FOR* More... WPW (Altot-Usuibsgdg-Xojez syndrome) [I45.6] Gastro-esophageal reflux disease without esopha*INVALID FOR* Chronic sinusitis, unspecified [J32.9] INVALID FOR* 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] INVALID FOR* Asymptomatic menopausal state [Z78.0] INVALID FOR* Anxiety disorder, unspecified [F41.9] INVALID FOR* Acquired absence of both cervix and uterus [Z90*INVALID FOR* Paroxysmal supraventricular tachycardia (HCC) [* Palpitations [R00.2] skilled nursing current use of antiarrhythmic drug [Z* More... Status post ablation of accessory bypass tract *INVALID FOR* Encounter Status:Closed by ALBINA LUONG MD on 04/04/18 ED NOTE Observed: 04/03/2018 Status: COMPLETED Source: [place] 12:59 AM [facility] REPOSITORY HNO ID: [id number] Author: Kimber (Rn) VINCENT Martinez Service: Emergency Medicine Author Type: Registered Nurse Type: ED Notes Filed: 04/03/2018 12:59 AM Note Text: Discharge instructions and prescriptions given to pt. Pt verbalized understanding of follow up with PCP and s/s to return to ED. All questions answered. Pt ambulatory by self on departure. 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 The patient states that she started to feel this chest pain after her ablation. She describes the pain in her substernal region with radiation back between her shoulder blades. She describes the pain as a pressure sensation. She states that nothing really makes it worse or better, such as exertion or deep breaths. She describes associated shortness of breath, nausea, and dizziness. The patient states her heart rates were high prior to the ablation and she feels that when her heart rates dropped into the 50s, this is associated with worsening symptoms. She denies numbness, tingling, or focal weakness in upper or lower extremities. The patient states that she did receive 3 Percocet in the hospital due to her chest pain. She states she has not taken any Percocet since she was discharged. She contacted EP office and they suggested for her to come into the emergency department. The patient denies recent cough or fever. She states she has never had a cardiac workup for coronary artery disease. She denies having a history of hypertension or hyperlipidemia. She denies being a smoker. She does state that she has a family history with her grandfather having an OR in his 50s or 60s. She denies history of VTE. She is currently not on anticoagulation or antiarrhythmics following her procedure. 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; attempt at catheter ablation 11/2016 failed; she continues to experience intermittent palpitations and tachycardia despite treatment with flecainide; successful RFCA 03/2018 PAST SURGICAL HISTORY Procedure Laterality Date - BLADDER SURGERY HX 11/2015 bladder sling - DELIVERY ONLY 85, 88,92 , low cervical X3 - ENLARGE BREAST WITH IMPLANT 11/2007 Breast augmentation - IUD 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 Mcknight; right midseptal AP unable to be ablated despite cryoablation and RF ablation attempts; AP described as not having capability for extremely rapid antegrade conduction - SVT ABLATION W/ EP COMPLETE 03/28/2018 left posteroseptal AP just within the proximal CS; Stereotaxis RF with Carto guidance, successful elimination of AP conduction; no SVT inducible pre- or post-ablation; [facility] Dr. Luong FAMILY HISTORY Problem Relation Age of Onset - Thyroid Mother goiter - Palpitations [OTHER] Mother - Asthma Father - Asthma Son - Palpitations [OTHER] Son - Thyroid Maternal Grandmother goiter - Other [OTHER] Maternal Grandfather young in MVA - Emphysema Paternal Grandmother - Heart Failure Paternal Grandmother - tobacco use [OTHER] Paternal Grandmother - Heart disease Paternal Grandfather had a heart attack and at young age - Stroke Paternal Grandfather - Prostate Cancer Paternal Grandfather - Asthma Daughter - Brain tumor [OTHER] Daughter benign - Seizures Brother - Heart Brother WPW syndrome; ablation unsuccessful -- too close to AV node - Other [OTHER] Other no unexplained sudden , crib deaths, unexplained syncope Social History Social History Main Topics - Smoking status: Never Smoker - Smokeless tobacco: Never Used - Alcohol use Yes Comment: occasionally - Drug use: No - Sexual activity: Yes Partners: Male control/ protection: Other, Surgical Comment: Hysterectomy ALLERGIES Allergen Reactions - Citalopram Other: See Comments Did not tolerate, ? Mental status changes - Dust Intolerance - Liquid Bandage [Enb* Rash blisters and rash - Mold Other: See Comments Intolerance; itchy throat, runny nose - Pneumovax 23 [Pneum* Swelling tongue swollen arm - Pollen Intolerance - Propranolol Mental Status Change - Smoke Intolerance - Tetracycline GI Upset Abdominal pain/cramping Review of Systems Constitutional: Positive for fatigue. Negative for fever. HENT: Negative for rhinorrhea and sore throat. Respiratory: Positive for shortness of breath. Negative for cough and stridor. Cardiovascular: Positive for chest pain. Negative for leg swelling. Gastrointestinal: Positive for nausea. Negative for abdominal pain and vomiting. Genitourinary: Negative for dysuria and hematuria. Musculoskeletal: Negative for gait problem and neck pain. Skin: Negative for pallor and rash. Neurological: Positive for dizziness. Negative for syncope, weakness and numbness. Psychiatric/Behavioral: Negative for confusion and suicidal ideas. Physical Exam BP 129/76 Pulse 60 Temp (Src) 97.9 (Oral) Resp 12 Ht 5' 2 (1.58m) Wt 140 lb (63.5kg) SpO2 100% LMP 05/06/2014 BMI 25.60 kg/(m2). Physical Exam Constitutional: She is oriented to person, place, and time. She appears well-developed and well-nourished. No distress. HENT: Head: Normocephalic and atraumatic. Head is without Barrett's sign. Right Ear: External ear normal. No hemotympanum. Left Ear: External ear normal. No hemotympanum. Nose: Nose normal. Mouth/Throat: Oropharynx is clear and moist. No oropharyngeal exudate. Eyes: Conjunctivae and EOM are normal. Pupils are equal, round, and reactive to light. Right eye exhibits no discharge. Left eye exhibits no discharge. No scleral icterus. Neck: Normal range of motion. Neck supple. No JVD present. No tracheal deviation present. Cardiovascular: Normal rate, regular rhythm, normal heart sounds and intact distal pulses. Exam reveals no gallop and no friction rub. No murmur heard. PT and DP +2/4 bilaterally Pulmonary/Chest: Effort normal and breath sounds normal. No stridor. No respiratory distress. She has no wheezes. She has no rhonchi. She has no rales. Abdominal: Soft. Bowel sounds are normal. She exhibits no distension. There is no tenderness. There is no rebound and no guarding. Musculoskeletal: Normal range of motion. She exhibits no edema or deformity. Neurological: She is alert and oriented to person, place, and time. She has normal strength. No cranial nerve deficit or sensory deficit. She exhibits normal muscle tone. Coordination normal. Strength 5/5 in UE and LE bilaterally. Sensation intact x 4. No limb or gait ataxia. No facial droop. No aphasia or dysarthria. Skin: Skin is warm and dry. Capillary refill takes less than 2 seconds. No rash noted. She is not diaphoretic. No erythema. No pallor. Psychiatric: She has a normal mood and affect. Judgment and thought content normal. Nursing note and vitals reviewed. Diagnostic Testing ED Labs Ordered and Reviewed BASIC METABOLIC PANEL (AK,AV,EU,FV,HL,PAUL,MM,SP) - Abnormal; Notable for the following: Result Value Ref Range Glucose 116 (*) 70 - 99 mg/dL All other components within normal limits CBC + AUTO DIFF (AK,AV,EU,FV,HL,PAUL,MM,SP) - Abnormal; Notable for the following: WBC 10.80 (*) 3.98 - 10.04 thou/cmm Abs. Neut(Anc) 6.35 (*) 1.56 - 6.13 thou/cmm Immature Grans # 0.06 (*) 0.00 - 0.05 thou/cmm Abs. Person 0.75 (*) 0.27 - 0.70 thou/cmm All other components within normal limits ECU TROPONIN I ([facility]) - Abnormal; Notable for the following: ECU Troponin I 0.360 (*) 0.015 - 0.045 ng/ml All other components within normal limits ECU TROPONIN I ([facility]) - Abnormal; Notable for the following: ECU Troponin I 0.331 (*) 0.015 - 0.045 ng/ml All other components within normal limits MDRD GFR Results for orders placed or performed during the hospital encounter of 04/02/18 XR CHEST 2V FRONTAL/LAT Result Value Ref Range Flarer EXAMINATION: CHEST RADIOGRAPH (2 VIEW FRONTAL AND LATERAL) Clinical History: Patient presented with chest pain. MQ: XC2_5 Comparison: None RESULT: Lines, tubes, and devices: None. Lungs and pleura: No consolidation. No lung mass. No pleural effusion. Possibly 8 mm nodular density in profile with the left third anterior rib. Cardiomediastinal silhouette: Normal cardiomediastinal silhouette. Other: No acute bony abnormalities seen. Right upper quadrant cholecystectomy clips. IMPRESSION: No acute radiographic abnormality. Possible 8 mm left upper lobe pulmonary nodule. Nonemergent chest CT recommended for further assessment. CTA CHEST (GATED) WO/W IVCON Result Value Ref Range Flarer CTA of the chest, abdomen, and pelvis History: 52-year-old female with chest pain, nausea. Recent history of cardiac ablation. with concern for acute aortic pathology. Comparison: None Technique: Noncontrast CT chest performed followed by CTA chest abdomen pelvis with IV contrast [address] Dose-Length Product (DLP): [address] Dose Reduction Employed: mAs-kVp manually adjusted based on patient size For optimization of anatomic evaluation, multiplanar reconstruction, maximum intensity projections, and advanced 3-D off-line postprocessing were performed on a dedicated stand-alone workstation under the direct supervision of the interpreting physician. RESULT: Aorta: Motion artifact through the aortic root and ascending aorta degrades evaluation. No evidence of acute aortic pathology. No dissection, intramural hematoma or evidence of aortic rupture. Normal caliber thoracoabdominal aorta with sample measurements as fo llows: mid ascending aorta 3.0 cm, mid descending thoracic aorta 2.0 cm, proximal abdominal aorta 1.6 cm and infrarenal aorta 1.4 cm. Normal branching pattern aortic arch. Aortic arch branch vessels, celiac axis, SMA, NESS, renal arteries bilaterally are patent at their visualized aspects. Chest: No mediastinal hematoma. Trace pericardial fluid at the superior recess. Breast implants bilaterally. Normal heart size. Normal caliber main pulmonary artery. No pleural effusion or pneumothorax. Dependent atelectasis. Lungs are clear. Osseous structures intact. Abdomen: Cholecystectomy. 5 mm hypoattenuating hepatic lesion is too small to characterize, likely benign. 5 mm enhancing focus inferior left hepatic lobe. Spleen, pancreas, adrenal glands and kidneys are normal. Descending colon is mildly displaced medially from the paracolic gutter, nonspecific, no findings a bowel obstruction. Normal appendix. No dilated bowel. No intra-abdominal ad enopathy or ascites. Pelvis: No adenopathy or fluid collection. IMPRESSION: No evidence of acute aortic pathology. Normal caliber thoracoabdominal aorta. 5 mm enhancing focus within the liver, likely benign in the absence of known malignancy with considerations to hemangioma, adenoma, FNH, or small shunt. If clinically indicated, further characterization with MRI may be considered. Incidental Finding: No follow-up imaging is recommended for any of the following incidentally detected lesions: liver lesions less than or equal to 0.5 cm, cystic kidney lesions less than 1.0 cm, or adrenal lesions less than or equal to 1.0 cm, in this adult patient (18 years or older). ACR Whitepaper: Managing Incidental Findings on Abdominal CT. JACR 2010; 7:754 CTA ABD/PEL W IVCON Result Value Ref Range Flarer CTA of the chest, abdomen, and pelvis History: 52-year-old female with chest pain, nausea. Recent history of cardiac ablation. with concern for acute aortic pathology. Comparison: None Technique: Noncontrast CT chest performed followed by CTA chest abdomen pelvis with IV contrast [address] Dose-Length Product (DLP): [address] Dose Reduction Employed: mAs-kVp manually adjusted based on patient size For optimization of anatomic evaluation, multiplanar reconstruction, maximum intensity projections, and advanced 3-D off-line postprocessing were performed on a dedicated stand-alone workstation under the direct supervision of the interpreting physician. RESULT: Aorta: Motion artifact through the aortic root and ascending aorta degrades evaluation. No evidence of acute aortic pathology. No dissection, intramural hematoma or evidence of aortic rupture. Normal caliber thoracoabdominal aorta with sample measurements as fo llows: mid ascending aorta 3.0 cm, mid descending thoracic aorta 2.0 cm, proximal abdominal aorta 1.6 cm and infrarenal aorta 1.4 cm. Normal branching pattern aortic arch. Aortic arch branch vessels, celiac axis, SMA, NESS, renal arteries bilaterally are patent at their visualized aspects. Chest: No mediastinal hematoma. Trace pericardial fluid at the superior recess. Breast implants bilaterally. Normal heart size. Normal caliber main pulmonary artery. No pleural effusion or pneumothorax. Dependent atelectasis. Lungs are clear. Osseous structures intact. Abdomen: Cholecystectomy. 5 mm hypoattenuating hepatic lesion is too small to characterize, likely benign. 5 mm enhancing focus inferior left hepatic lobe. Spleen, pancreas, adrenal glands and kidneys are normal. Descending colon is mildly displaced medially from the paracolic gutter, nonspecific, no findings a bowel obstruction. Normal appendix. No dilated bowel. No intra-abdominal ad enopathy or ascites. Pelvis: No adenopathy or fluid collection. IMPRESSION: No evidence of acute aortic pathology. Normal caliber thoracoabdominal aorta. 5 mm enhancing focus within the liver, likely benign in the absence of known malignancy with considerations to hemangioma, adenoma, FNH, or small shunt. If clinically indicated, further characterization with MRI may be considered. Incidental Finding: No follow-up imaging is recommended for any of the following incidentally detected lesions: liver lesions less than or equal to 0.5 cm, cystic kidney lesions less than 1.0 cm, or adrenal lesions less than or equal to 1.0 cm, in this adult patient (18 years or older). ACR Whitepaper: Managing Incidental Findings on Abdominal CT. JACR 2010; 7:754 BASIC METABOLIC PANEL (AK,AV,EU,FV,HL,PAUL,MM,SP) Result Value Ref Range Sodium 142 136 - 145 mEq/L Potassium 4.2 3.5 - 5.1 mEq/L Chloride 107 98 - 107 mEq/L CO2 28 21 - 32 mEq/L Glucose 116 (H) 70 - 99 mg/dL BUN 11 7 - 18 mg/dL Creatinine 0.92 0.51 - 0.95 mg/dL Calcium 8.9 8.5 - 10.1 mg/dL Anion Gap 11 8 - 16 CBC + AUTO DIFF (AK,AV,EU,FV,HL,PAUL,MM,SP) Result Value Ref Range WBC 10.80 (H) 3.98 - 10.04 thou/cmm RBC 4.20 3.93 - 5.22 mil/cmm HGB 12.3 11.2 - 15.7 g/dL Hematocrit 37.1 34.1 - 44.9 % MCV 88.3 79.4 - 94.8 fl MCH 29.3 25.6 - 32.2 pg MCHC 33.2 31.6 - 34.8 % RDW 13.8 11.7 - 14.4 % RDW-SD 44.7 36.4 - 46.3 fl Platelet Count 296 182 - 369 thou/cmm MPV 10.2 9.4 - 12.3 fl Seg Neutrophil 58.8 % Immature Grans 0.60 % Lymphocyte 32.6 % Monocyte 6.9 % Eosinophil 0.7 % Basophil 0.4 % Abs. Neut(Anc) 6.35 (H) 1.56 - 6.13 thou/cmm Immature Grans # 0.06 (H) 0.00 - 0.05 thou/cmm Abs. Lymph 3.52 1.18 - 3.74 thou/cmm Abs. Person 0.75 (H) 0.27 - 0.70 thou/cmm Abs. Eosin 0.08 0.00 - 0.31 thou/cmm Abs. Baso 0.04 0.01 - 0.08 thou/cmm [facility] TROPONIN I ([facility]) Result Value Ref Range [facility] Troponin I 0.360 (H) 0.015 - 0.045 ng/ml MDRD GFR Result Value Ref Range eGFR >60 >60mL/min/1.73m2 [facility] TROPONIN [facility] ([facility]) Result Value Ref Range [facility]U Troponin I 0.331 (H) 0.015 - 0.045 ng/ml Procedures Medical Decision Making MDM This is a 52-year-old female who presents with chest pain. 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 Vitals are within normal limits. Oxygenation is 100%. On exam, the patient is well-appearing. She is neurologically intact and distal pulses are intact. She describes mild chest pain at the time of evaluation. Based on the patient's recent procedure and pain between her shoulder blades in her back, she will require workup to rule out injury from the procedure such as dissection, and also to rule out PE. The patient's symptoms classically do not sound cardiac. The patient is given Zofran. EKG shows NSR without ST change. Results indicate a mild leukocytosis at 10.8. There is no anemia as hemoglobin is 12.3. No evidence of VALERIA. First troponin is 0.360. Patient is given 2 baby aspirin. I did call EP and spoke with Dr. Long who states that this troponin could be elevated from the procedure and this is not unusual. Delta troponin did trend down at 0.331. CTA of chest, abdomen, and pelvis is negative for dissection or PE. The patient is given a copy of her results and informed of the incidental findings. I did speak with the patient regarding her elevated troponin. Although this is likely a result of her procedure, she has never been worked up for coronary artery disease and I did suggest she stay in the hospital. However, the patient states she wishes to be discharged home and will follow up with EP in the morning as she does feel improved at the end of her visit here. I gave the patient strict return precautions and she states she understands plan. She is discharged in stable condition. HEART Score 45-65 +1 Slightly suspicious +0 1-2 risk factors +1 1-3 x normal limit +1 Normal +0 Total: 3 *The HEART Score is a prospectively studied scoring system to help emergency physicians risk-stratify chest pain patients who are at risk for all-cause mortality, myocardial infarction, or coronary revascularization in the next 6 weeks. Low risk patients have a score 0-3 and have a less than 2% risk of major event at 6 weeks.* Attending Note: We did discuss with cardiology and the patient regarding her elevated troponin. EP stated this was not unusual to see after an ablation. However, we did recommend to the patient to be admitted for observation for at least further serial troponins and consideration of a further CAD workup. The patient's B-set troponin was decreased slightly from first so it was NOT trending upward. Patient declined admission even after the discussion of risks/benefits/and alternatives and she will f/u with cardiology tomorrow. ED Course / Clinical Impression Clinical Impressions as of Apr 03 2322 Chest pain, unspecified type Plan SIGNATURE: DO Melissa Costello) DO Tiffanie Resident 04/03/18 1419 Melissa Moreno DO Resident 04/03/18 1421 Michael Snow MD 04/03/182321 ED NOTE Observed: 04/02/2018 Status: COMPLETED Source: [place] 11:04 PM [facility] OTHER [facility] REPOSITORY HNO ID: [id number] Author: Kimber (Rn) VINCENT Martinez Service: Emergency Medicine Author Type: Registered Nurse Type: ED Notes Filed: 04/02/2018 11:04 PM Note Text: Patient returned to the Emergency Department. CTA CHEST (GATED) Observed: 04/02/2018 Status: F Source: [facility] WO/W IV CON 10:27 PM HEALTH SYSTEM REPOSITORY Performed at [facility] APPROVED BY: PORSHA KAY MD CTA of the chest, abdomen, and pelvis History: 52-year-old female with chest pain, nausea. Recent history of cardiac ablation. with concern for acute aortic pathology. Comparison: None Technique: Noncontrast CT chest performed followed by CTA chest abdomen pelvis with IV contrast [address] Dose-Length Product (DLP): [address] Dose Reduction Employed: mAs-kVp manually adjusted based on patient size For optimization of anatomic evaluation, multiplanar reconstruction, maximum intensity projections, and advanced 3-D off-line postprocessing were performed on a dedicated stand-alone workstation under t he direct supervision of the interpreting physician. RESULT: Aorta: Motion artifact through the aortic root and ascending aorta degrades evaluation. No evidence of acute aortic pathology. No dissection, intramural hematoma or evidence of aortic rupture. Kathe l caliber thoracoabdominal aorta with sample measurements as follows: mid ascending aorta 3.0 cm, mid descending thoracic aorta 2.0 cm, proximal abdominal aorta 1.6 cm and infrarenal aorta 1.4 cm. Norm al branching pattern aortic arch. Aortic arch branch vessels, celiac axis, SMA, NESS, renal arteries bilaterally are patent at their visualized aspects. Chest: No mediastinal hematoma. Trace pericardial fluid at the superior recess. Breast implants bilaterally. Normal heart size. Normal caliber main pulmonary artery. No pleural effusion or pneumot horax. Dependent atelectasis. Lungs are clear. Osseous structures intact. Abdomen: Cholecystectomy. 5 mm hypoattenuating hepatic lesion is too small to characterize, likely benign. 5 mm enhancing focus inferior left hepatic lobe. Spleen, pancreas, adrenal glands and kidne ys are normal. Descending colon is mildly displaced medially from the paracolic gutter, nonspecific, no findings a bowel obstruction. Normal appendix. No dilated bowel. No intra-abdominal adenopathy or ascites. Pelvis: No adenopathy or fluid collection. IMPRESSION: No evidence of acute aortic pathology. Normal caliber thoracoabdominal aorta. 5 mm enhancing focus within the liver, likely benign in the absence of known malignancy with considerations to hemangioma, adenoma, FNH, or small shunt. If clinically indicated, further characterizatio n with MRI may be considered. Incidental Finding: No follow-up imaging is recommended for any of the following incidentally detected lesions: liver lesions less than or equal to 0.5 cm, cystic kidney lesions less than 1.0 cm, or ad renal lesions less than or equal to 1.0 cm, in this adult patient (18 years or older). ACR Whitepaper: Managing Incidental Findings on Abdominal CT. JACR 2010; 7:754 CTA ABD/PEL W IV CON Observed: 04/02/2018 Status: F Source: [facility] 10:27 PM HEALTH SYSTEM REPOSITORY Performed at [facility] APPROVED BY: PORSHA KAY MD CTA of the chest, abdomen, and pelvis History: 52-year-old female with chest pain, nausea. Recent history of cardiac ablation. with concern for acute aortic pathology. Comparison: None Technique: Noncontrast CT chest performed followed by CTA chest abdomen pelvis with IV contrast [address] Dose-Length Product (DLP): [address] Dose Reduction Employed: mAs-kVp manually adjusted based on patient size For optimization of anatomic evaluation, multiplanar reconstruction, maximum intensity projections, and advanced 3-D off-line postprocessing were performed on a dedicated stand-alone workstation under t he direct supervision of the interpreting physician. RESULT: Aorta: Motion artifact through the aortic root and ascending aorta degrades evaluation. No evidence of acute aortic pathology. No dissection, intramural hematoma or evidence of aortic rupture. Kathe l caliber thoracoabdominal aorta with sample measurements as follows: mid ascending aorta 3.0 cm, mid descending thoracic aorta 2.0 cm, proximal abdominal aorta 1.6 cm and infrarenal aorta 1.4 cm. Norm al branching pattern aortic arch. Aortic arch branch vessels, celiac axis, SMA, NESS, renal arteries bilaterally are patent at their visualized aspects. Chest: No mediastinal hematoma. Trace pericardial fluid at the superior recess. Breast implants bilaterally. Normal heart size. Normal caliber main pulmonary artery. No pleural effusion or pneumot horax. Dependent atelectasis. Lungs are clear. Osseous structures intact. Abdomen: Cholecystectomy. 5 mm hypoattenuating hepatic lesion is too small to characterize, likely benign. 5 mm enhancing focus inferior left hepatic lobe. Spleen, pancreas, adrenal glands and kidne ys are normal. Descending colon is mildly displaced medially from the paracolic gutter, nonspecific, no findings a bowel obstruction. Normal appendix. No dilated bowel. No intra-abdominal adenopathy or ascites. Pelvis: No adenopathy or fluid collection. IMPRESSION: No evidence of acute aortic pathology. Normal caliber thoracoabdominal aorta. 5 mm enhancing focus within the liver, likely benign in the absence of known malignancy with considerations to hemangioma, adenoma, FNH, or small shunt. If clinically indicated, further characterizatio n with MRI may be considered. Incidental Finding: No follow-up imaging is recommended for any of the following incidentally detected lesions: liver lesions less than or equal to 0.5 cm, cystic kidney lesions less than 1.0 cm, or ad renal lesions less than or equal to 1.0 cm, in this adult patient (18 years or older). ACR Whitepaper: Managing Incidental Findings on Abdominal CT. JACR 2010; 7:754 ED NOTE Observed: 04/02/2018 Status: COMPLETED Source: [place] 8:52 PM [facility] REPOSITORY HNO ID: [id number] Author: Kimber (Rn) VINCENT Martinez Service: Emergency Medicine Author Type: Registered Nurse Type: ED Notes Filed: 04/02/2018 9:02 PM Note Text: Called ER Transportation for transport pt to CT at this time [facility] TROPONIN I Collected: 04/02/2018 Status: F Source: [facility] 8:52 PM HEALTH SYSTEM REPOSITORY TYPE CODE TESTS RESULT OUT OF REFERENCE UNITS RANGE LAB ERTRP(LOINC 0.015-0.045 ng/ml ) High [facility]U Troponin I 0.331 Performed By: #### ERTRP #### [facility] [address] [place] [address] ED PROV NOTE Observed: 04/02/2018 Status: COMPLETED Source: [place] 8:38 PM [facility] [place] REPOSITORY HNO ID: [id number] Author: Michael Snow MD Service: Emergency Medicine Author Type: Physician Type: ED Provider Notes Filed: 04/02/2018 9:00 PM Note Text: Attending Note I personally saw and examined the patient. I reviewed the resident's note. I agree with the resident's assessment and plan unless otherwise noted. I supervised the javier portion(s) of procedures performed on this patient by the resident physician. Physical Exam Item(s): radial dp/pt, femoral pulses equal, HRRR, LCTAB. This is a 52 year old female presenting with Chest Pain (c/o cp onANDoff for past few days states radiates to between her shoulder blades +dizziness+n-v recent ablation for wpw syndrome). Because of the description of the patient's chest pain and because of the recent ablation we will obtain CT chest to evaluate for aortic dissection and PE. Her troponin is borderline elevated but no ST elevation OR on EKG. This troponin elevation may be because of the cardiac ablation and therefore we will trend troponins. We will discuss with cardiology but patient likely will need admitted for observation. Michael Snow MD 04/02/18 2100 CHEST 2 VIEWS Observed: 04/02/2018 Status: F Source: [facility] 7:31 PM HEALTH SYSTEM REPOSITORY Performed at [facility] APPROVED BY: Baljeet Lamb MD EXAMINATION: CHEST RADIOGRAPH (2 VIEW FRONTAL & LATERAL) Clinical History: Patient presented with chest pain. MQ: XC2_5 Comparison: None RESULT: Lines, tubes, and devices: None. Lungs and pleura: No consolidation. No lung mass. No pleural effusion. Possibly 8 mm nodular density in profile with the left third anterior rib. Cardiomediastinal silhouette: Normal cardiomediastinal silhouette. Other: No acute bony abnormalities seen. Right upper quadrant cholecystectomy clips. IMPRESSION: No acute radiographic abnormality. Possible 8 mm left upper lobe pulmonary nodule. Nonemergent chest CT recommended for further assessment. HEMOGRAM/DIFF Collected: 04/02/2018 Status: F Source: [facility] 5:52 PM HEALTH SYSTEM REPOSITORY TYPE CODE TESTS RESULT OUT OF REFERENCE UNITS RANGE LAB WBC(LOINC) 3.98-10.04 thou/cmm WBC High 10.80 LAB RBC(LOINC) 3.93-5.22 mil/cmm RBC 4.20 LAB HGB(LOINC) 11.2-15.7 g/dL Hgb 12.3 LAB HCT(LOINC) 34.1-44.9 % Hct 37.1 LAB MCV(LOINC) 79.4-94.8 fl MCV 88.3 LAB MCH(LOINC) 25.6-32.2 pg MCH 29.3 LAB MCHC(LOINC 31.6-34.8 % ) MCHC 33.2 LAB RDW(LOINC) 11.7-14.4 % RDW 13.8 LAB RDWSD(LOIN 36.4-46.3 fl C) RDW SD 44.7 LAB PLT(LOINC) 182-369 thou/cmm Platelet 296 LAB MPV(LOINC) 9.4-12.3 fl MPV 10.2 LAB SEG(LOINC) % Seg Neutrophil 58.8 LAB IGRE(LOINC % ) Immature Grans 0.60 LAB LYMPH(LOIN % C) Lymphocyte 32.6 LAB MNO(LOINC) % Monocyte 6.9 LAB EOSIN(LOIN % C) Eosinophil 0.7 LAB BASO(LOINC % ) Basophil 0.4 LAB SEGN(LOINC 1.56-6.13 thou/cmm ) Abs. High Neut (ANC) 6.35 LAB IGAB(LOINC 0.00-0.05 thou/cmm ) Abs High Immature Grans 0.06 Result Comment: Smear scanned; tech agrees with automated differential LAB LYMN(LOINC) 1.18-3.74 thou/cmm Abs. Lymph 3.52 LAB MONON(LOINC) 0.27-0.70 thou/cmm High Abs. Person 0.75 LAB EOSN(LOINC) 0.00-0.31 thou/cmm Abs. Eosin 0.08 LAB BASON(LOINC) 0.01-0.08 thou/cmm Abs. Baso 0.04 Performed By: #### CBCD1 #### [address] [address] BASIC PANEL Collected: 04/02/2018 Status: F Source: [facility] 5:52 PM HEALTH SYSTEM REPOSITORY TYPE CODE TESTS RESULT OUT OF REFERENCE UNITS RANGE LAB NA(LOINC) 136-145 mEq/L Sodium Blood 142 LAB K(LOINC) 3.5-5.1 mEq/L Potassium Blood 4.2 LAB CL(LOINC) 98-107 mEq/L Chloride Blood 107 LAB CO2(LOINC) 21-32 mEq/L CO2 Blood 28 LAB GLU(LOINC) 70-99 mg/dL Glucose High Blood 116 LAB BUN(LOINC) 7-18 mg/dL BUN Blood 11 LAB CREA(LOINC 0.51-0.95 mg/dL ) Creatinine Blood 0.92 LAB CA(LOINC) 8.5-10.1 mg/dL Calcium Blood 8.9 LAB ANGAP(LOIN 8-16 C) Anion Gap 11 Performed By: #### P8 #### [address] [address] MDRD GFR Collected: 04/02/2018 Status: F Source: [facility] 5:52 PM HEALTH SYSTEM REPOSITORY TYPE CODE TESTS RESULT OUT OF RANGE REFERENCE UNITS LAB GFRFN(LOINC >60mL/min/1.73m ) 2 eGFR >60 Result Comment: If the patient is , multiply the result by 1.210. Performed By: #### GFR #### [address] [address] ECU TROPONIN I Collected: 04/02/2018 Status: F Source: [facility] 5:52 PM HEALTH SYSTEM REPOSITORY TYPE CODE TESTS RESULT OUT OF REFERENCE UNITS RANGE LAB ERTRP(LOINC 0.015-0.045 ng/ml ) High [facility]U Troponin I 0.360 Performed By: #### ERTRP #### [facility] [address] [place], [place] [address] EKG (AK,AV,EU,FV,HL,PAUL,MM,SP) Observed: Status: F Source: [place] 04/02/2018 5:45 PM CLINIC OTHER CAMPUS REPOSITORY NAME : NICKI DELACRUZ PID : [id number] : 1965 Gender : Female Race : ORD : [id number] Procedure Date : Apr 02 2018 17:45 Edit Date : Apr 20 2018 20:08 Diagnosis:NORMAL SINUS RHYTHM POSSIBLE LEFT ATRIAL ENLARGEMENT BORDERLINE ECG WHEN COMPARED WITH ECG OF 29-MAR-2018 07:58, NO SIGNIFICANT CHANGE WAS FOUND Confirmed by Kanika Bennett ([id number]) on 04/20/2018 8:08:50 PM Ventricular Rate : 60 BPM Atrial Rate : 60 BPM P-R Interval : 112 ms QRS Duration : 90 ms Q-T Interval : 428 ms QTC Calculation(Bezet) : 428 ms P [place] : 60 degrees R [place] : 57 degrees T [place] : 19 degrees Test Reason : Chest Pain Location : 4 : [facility] ED Overread By : Kanika Bennett Editted By : Kanika Bennett Referred By : BALJEET MICHELLE Acquired by : Sanjuanita Taylor ED TRIAGE NOTE Observed: 04/02/2018 Status: COMPLETED Source: [place] 5:37 PM [facility] OTHER [facility]AMP[facility] REPOSITORY HNO ID: [id number] Author: Baljeet (Marcus) Tutu Service: Emergency Medicine Author Type: Physician Rat Farmer Type: ED Triage Notes Filed: 04/02/2018 5:38 PM Note Text: ED INTAKE NOTE Patient Name: Nicki Delacruz Service Date: 04/02/18 BRIEF HPI: 52-year-old female with past medical history WPW, with recent ablation who presents ED for chief complaint of chest pain. Patient states is been on and off for the past 4 days now. It is located to her midsternum, described as a pressure, that radiates to her back. She states it feels like a sharp pain between her shoulder blades. She also reports some shortness of breath with this. She also reports some dizziness and nausea, denies any vomiting. BRIEF EXAM: Awake and Alert regular rate and rhythm Lungs were to auscultation bilaterally Radial pulses 2+ bilaterally INTAKE WORKUP: Bloodwork: CBC BMP troponin EKG Imaging: XR: chest SIGNATURE: MARCUS Jaime CNDS Observed: 03/29/2018 Status: COMPLETED Source: [place] 9:51 AM [facility] OTHER CAMPUS REPOSITORY HNO ID: [id number] Author: Aaron Brown Service: Electrophysiology Author Type: Nurse Practitioner Type: Discharge Summaries Filed: 03/29/2018 9:53 AM Note Text: HRA DISCHARGE SUMMARY PATIENT NAME: Nicki Delacruz Admission Information Admission Information ADMIT DATE: 03/28/2018 DISCHARGE DATE: 03/29/2018 MY DOCTORS AND MEDICAL TEAM: My Main Hospital Doctor: Albina Luong Primary Care Provider: Andrew Gonzalez MD My Medical Team Members: Treatment Team: Attending Provider: Albina Luong MY CONDITION AT DISCHARGE: Stable REASON I WAS IN THE HOSPITAL: palpitations, Wahl parkinson White syndrome SUMMARY OF WHAT HAPPENED WHILE I WAS IN THE HOSPITAL: I underwent an electrophysiology study and had inducible left posteroseptal ventricular activation at the proximal coronary sinus. Dr. Luong utilized radiofrequency energy to ablate the left posteroseptal accessory pathway. The EKG this morning reveals SR, no delta wave. I will not resume the Flecainide. I will follow up with Aaron Brown CNP in 6-8 weeks. OTHER PROBLEMS/DIAGNOSIS: Principal Problem: WPW (Yzrsi-Jsymrdalu-Slvrr syndrome) Active Problems: Paroxysmal supraventricular tachycardia (HCC) Palpitations Status post ablation of accessory bypass tract Resolved Problems: * No resolved hospital problems. * OPERATIONS PERFORMED WHILE IN THE HOSPITAL: as above IMPORTANT TEST/PROCEDURES: No procedures performed TEST RESULTS NOT AVAILABLE AT THIS TIME: No pending results Discharge Disposition Discharge Disposition: Home With Self Care Activity When You Leave the Hospital Do not sit for long periods of time with your arms or legs bent May drive No lifting greater than 5-10 pounds for 5-7 days Until 04/05/18 No strenuous activity, exercise, or sports for 5-7 days, casual walking is fine Until 04/05/18 No walking restrictions Take showers, not baths, until your wound is completely healed Diet Instructions Resume your pre-hospital diet For Pain When You Leave the Hospital Use acetaminophen (Tylenol) as recommended on the bottle Wound/Surgical Site Care Any bruising and bumps should disappear within 3-4 days Avoid lotions or powders Check your wound every day If the bruising expands or the bump enlarges please call your doctor Some bruising, soreness or a small bump under the skin at the inserion site is normal Wash your wound area with mild soap and water daily and gently pat dry with a towel Return to Work On the following date: April 10, 2018 Call Your Doctor If There is an unusual odor from the wound area You have lightheadedness, fainting, or confusion You have persistent or heavy bleeding You have redness, swelling, pus or drainage from the wound Your temperature is greater than 101F Follow Up Appointments Follow-Up Appointment Dr. Luong's office will call to schedule the appointment. When: In: Comment - three months Patient/Parents to call for appointment?: No Albina Luong [phone] [address] [facility] [address] [facility] [id number] PCP Requested Referral FOLLOW-UP APPOINTMENTS ALREADY SCHEDULED WITH A [facility] PROVIDER: Future Appointments Date Time Provider Department Center 05/10/2018 3:30 PM Aaron (Jessica) Kevin [facility] DISCHARGE MEDICATION: Current Discharge Medication List CONTINUE these medications which have NOT CHANGED traZODone (DESYREL) 50 mg Take 50 mg by mouth daily at bedtime. Qty: 30 tablet Refills: 5 cetirizine (ZyrTEC) 10 mg Take 10 mg by mouth once daily. Qty: 90 tablet Refills: 3 estradiol (NOBLE, VIVELLE-DOT) 1 Patch 1 Patch every Tuesday and Tuesday. LORazepam (ATIVAN) 0.5 mg Take 0.5 mg by mouth three times daily as needed. Qty: 30 tablet Refills: 5 albuterol HFA (PROVENTIL HFA, VENTOLIN HFA) 2 Puffs Inhale 2 Puffs as instructed every 4 hours as needed for Wheezing/Shortness of Breath. Qty: 1 Inhaler Refills: 0 STOP taking these medications flecainide (TAMBOCOR) 75 mg Comments: Reason for Stopping: Discharge Physical Exam: VITAL SIGNS: BP 114/69 Pulse (!) 54 Temp 36.5 ?C (97.7 ?F) Resp 18 Ht 157.5 cm (5' 2) Wt 64 kg (141 lb 3.2 oz) LMP 05/06/2014 SpO2 97% BMI 25.83 kg/m? GENERAL: Alert, no distress, cooperative LUNGS: Lungs clear to auscultation, Good diaphragmatic excursion CARDIAC: Normal S1 and S2; no rubs, murmurs, or gallops ABDOMEN: Abdomen soft, non-tender, BS normal, No masses or organomegaly EXTREMITIES: Extremities normal, no deformities, edema, clubbing or skin discoloration. Good capillary refill., No ulcers WOUND: Clean, dry and intact, right neck without bleeding, DSD removed. Right groin without bruit, bleeding, DSD rebmoved right DP and PT 2+ Telemetry; SR 56 bpm, no SVT. TIME OF CARE: Discharge Management: I personally spent less than 30 minutes involved in the discharge management of this patient. SIGNATURE: Payton Brown, MSN, PUBLIC ADDRESS SYSTEM INSTALLER.SOURCE INSPECTOR PAGER/CONTACT #: [id number] DATE: March 29, 2018 TIME: 9:51 AM EKG (AK,AV,EU,FV,HL,PAUL,MM,SP) Observed: Status: F Source: [place] 03/29/2018 7:58 AM CLINIC OTHER CAMPUS REPOSITORY NAME : NICKI DELACRUZ PID : [id number] : 1965 Gender : Female Race : ORD : [id number] Procedure Date : Mar 29 2018 07:58 Edit Date : Mar 29 2018 17:31 Diagnosis:SINUS BRADYCARDIA SEPTAL INFARCT , AGE UNDETERMINED ABNORMAL ECG NO PREVIOUS ECGS AVAILABLE Confirmed by MD Verduzco Vinay ([id number]) on 03/29/2018 5:30:59 PM Ventricular Rate : 50 BPM Atrial Rate : 50 BPM P-R Interval : 116 ms QRS Duration : 92 ms Q-T Interval : 454 ms QTC Calculation(Bezet) : 413 ms P [place] : 65 degrees R [place] : 42 degrees T [place] : 3 degrees Test Reason : Arrhythmia Location : 21 : 2100 2115 Overread By : MD Verduzco Vinay Editted By : MD Verduzco Vinay Referred By : ALBINA LUONG Acquired by : Ana Mack MDRD GFR Collected: 03/29/2018 Status: F Source: [facility] 5:00 AM HEALTH SYSTEM REPOSITORY TYPE CODE TESTS RESULT OUT OF RANGE REFERENCE UNITS LAB GFRFN(LOINC >60mL/min/1.73m ) 2 eGFR 56.32 Result Comment: If the patient is , multiply the result by 1.210. Performed By: #### GFR #### [place] [address] HEMOGRAM Collected: 03/29/2018 Status: F Source: [facility] 5:00 AM HEALTH SYSTEM REPOSITORY TYPE CODE TESTS RESULT OUT OF REFERENCE UNITS RANGE LAB WBC(LOINC) 3.98-10.04 thou/cmm High WBC 11.56 LAB RBC(LOINC) 3.93-5.22 mil/cmm RBC 4.07 LAB HGB(LOINC) 11.2-15.7 g/dL Hgb 11.9 LAB HCT(LOINC) 34.1-44.9 % Hct 36.5 LAB MCV(LOINC) 79.4-94.8 fl MCV 89.7 LAB MCH(LOINC) 25.6-32.2 pg MCH 29.2 LAB MCHC(LOINC) 31.6-34.8 % MCHC 32.6 LAB RDW(LOINC) 11.7-14.4 % RDW 14.4 LAB RDWSD(LOINC 36.4-46.3 fl ) High RDW SD 47.4 LAB PLT(LOINC) 182-369 thou/cmm Platelet 266 LAB MPV(LOINC) 9.4-12.3 fl MPV 10.2 Performed By: #### CBC1 #### [place] [address] BASIC PANEL Collected: 03/29/2018 Status: F Source: [facility] 5:00 AM HEALTH SYSTEM REPOSITORY TYPE CODE TESTS RESULT OUT OF REFERENCE UNITS RANGE LAB NA(LOINC) 136-145 mEq/L Sodium Blood 142 LAB K(LOINC) 3.5-5.1 mEq/L Potassium Blood 4.0 LAB CL(LOINC) 98-107 mEq/L Chloride High Blood 110 LAB CO2(LOINC) 21-32 mEq/L CO2 Blood 25 LAB GLU(LOINC) 70-99 mg/dL Glucose Blood 97 LAB BUN(LOINC) 7-18 mg/dL BUN Blood 12 LAB CREA(LOINC 0.51-0.95 mg/dL ) High Creatinine Blood 1.03 LAB CA(LOINC) 8.5-10.1 mg/dL Calcium Blood 8.7 LAB ANGAP(LOIN 8-16 C) Anion Gap 11 Performed By: #### P8 #### [place] [address] NURSING PROG Observed: 03/28/2018 Status: COMPLETED Source: [place] 9:56 PM [facility] REPOSITORY HNO ID: [id number] Author: Sanjuanita (Rn) VINCENT Dick Service: Nursing Author Type: Registered Nurse Type: Nursing Progress Note Filed: 03/28/2018 10:09 PM Note Text: Patient's daughter called RN into the room. Patients daughter was rubbing lotion on her legs and noticed a bump in the right calf and was thinking it might be a blood clot. There is not redness, swelling or tenderness to the site but patient does state when the leg is rubbed there is some pain. Patient thinks it might a muscle cramp due to be dehydrated. Spoke with dr. luong regarding this and he said it is not a blood clot- no orders given ANES POST Observed: 03/28/2018 Status: COMPLETED Source: [place] 4:08 PM [facility] REPOSITORY HNO ID: [id number] Author: Andrew Childs Service: Anesthesiology Author Type: Physician Type: Anesthesia PostOp Filed: 03/28/2018 4:08 PM Note Text: POST ANESTHESIA EVALUATION NOTE SERVICE DATE: 03/28/2018 SERVICE TIME: 4:08 PM : 1965 Vitals: 03/28/18 0650 03/28/18 1400 Temp: (!) 35.9 ?C (96.6 ?F) 36.6 ?C (97.9 ?F) 03/28/18 1415 03/28/18 1430 03/28/18 1445 03/28/18 1515 BP: 110/74 106/73 113/69 127/79 03/28/18 1415 03/28/18 1430 03/28/18 1445 03/28/18 1515 Pulse: 61 64 (!) 53 (!) 58 03/28/18 1415 03/28/18 1430 03/28/18 1445 03/28/18 1515 Resp: 18 18 18 18 03/28/18 1415 03/28/18 1430 03/28/18 1445 03/28/18 1515 SpO2: 98% 97% 96% 99% Validated Vital Signs: Yes POST ANES STATUS: No apparent anesthetic complications. The patient is appropriately hydrated with stable respiratory and cardiovascular status. Patient has safe and adequate airway control. The patient has appropriate pain relief and no significant post operative nausea or vomiting. The patient has achieved baseline mental status. Further assessment by Anesthesia Service: None Other Remarks: SIGNATURE: Andrew Childs MD PATIENT NAME: Nicki Delacruz DATE: March 28, 2018 TIME: 4:08 PM PAGER/CONTACT #: [phone] PROGRESS Observed: 03/28/2018 Status: COMPLETED Source: [place] 2:59 PM [facility] REPOSITORY HNO ID: [id number] Author: Daphney BucknerRn) VINCENT Sears Service: Nursing Author Type: Registered Nurse Type: Progress Notes Filed: 03/28/2018 3:00 PM Note Text: Patient c/o midsternal sharp chest pain and back back between her shoulder rated 8/10. Aaron Cunha notified. No further orders obtained at this time. OPERATIVE NO Observed: 03/28/2018 Status: COMPLETED Source: [place] 12:54 PM [facility] REPOSITORY HNO ID: [id number] Author: Albina Luong Service: Electrophysiology Author Type: Physician Type: Operative Report Filed: 03/28/2018 12:54 PM Note Text: See paper report filed in paper chart today. Albina Luong MD March 28, 2018 12:54 PM BRIEF OP NOT Observed: 03/28/2018 Status: COMPLETED Source: [place] 12:49 PM [facility] REPOSITORY HNO ID: [id number] Author: Albina Luong Service: Electrophysiology Author Type: Physician Type: Brief Op Note Filed: 03/28/2018 12:54 PM Note Text: BRIEF OPERATIVE / PROCEDURE NOTE LOG ID: [id number] SURGERY/PROCEDURE DATE: 03/28/2018 SURGEON(S)/PROCEDURALIST(S) AND WILDLIFE SCIENCE PROFESSOR(S): Surgeon(s) and Role: * Albina Luong - Primary No Additional Staff SURGERY/PROCEDURE(S): Comprehensive EP study with radiofrequency catheter ablation of supraventricular tachycardia (SVT) ANESTHESIA: General FINDINGS: Patient arrived to EP laboratory in sinus rhythm with manifest ventricular pre-excitation aka Ltupl-Krjsudklq-Iifvf pattern. Comprehensive EP study was performed. 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 There was no inducible SVT at baseline. The accessory pathway conduction was mapped during sinus rhythm using [employer] remote robotic navigation system and with guidance of the Carto 3D electroanatomical mapping system. The earliest site of ventricular activation during pre-excited sinus rhythm was at the proximal CS just beyond the CS os, consistent with a left posteroseptal accessory pathway. RF catheter ablation at this site was challenging but did eliminate accessory pathway conduction. ESTIMATED BLOOD LOSS: minimal SPECIMENS: None COMPLICATIONS: None PRE-OP/PRE-PROCEDURE DIAGNOSIS: 1) paroxysmal supraventricular tachycardia; 2) Tdjjm-Zsipzcjgk-Svatb syndrome; 3) palpitations POST-OP/POST-PROCEDURE DIAGNOSIS: 1) paroxysmal supraventricular tachycardia; 2) Gfafg-Gijxaduwi-Orhsm syndrome; 3) palpitations SIGNATURE: Albina Luong MD PATIENT NAME: Nicki Delacruz DATE: March 28, 2018 TIME: 12:49 PM PAGER/CONTACT #: [phone] HISTORY PHYSICAL Observed: 03/28/2018 Status: COMPLETED Source: [place] 8:17 AM [facility] REPOSITORY HNO ID: [id number] Author: Albina Luong Service: Electrophysiology Author Type: Physician Type: HANDP Filed: 03/28/2018 8:18 AM Note Text: [facility] (EP) - [facility] HANDP from 03/23/2018 copied forward here: Office Visit 03/23/2018 [facility] Cardiology [facility] (Jessica) [facility] Cardiology Paroxysmal supraventricular tachycardia (HCC) +2 more Dx Cardiology Follow Up ?; Referred by Mathieu Chance) Shahid Reason for Visit Progress Notes Expand All Collapse All ? Subjective HPI ? Mrs. Delacruz is a 52-year-old female who presents today and a preprocedure visit prior to EP study and ablation scheduled next week with Dr. Luong. ? To provide a brief medical history. She recalls experiencing symptoms suggestive of arrhythmia since she was young child probably 8 or 9 years of age. She describes her palpitations as fluttering in her chest and racing heartbeats. She had been very athletic as a youth and participate in track and field. She never experienced a syncopal event. ? Approximate year and a half ago she told a antihistamine decongestant and she started to develop severe palpitations and heart racing. 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 She was referred to Dr. Mcknight at the [facility] [place]. Her brother has a history of WPW and was already a patient of Dr. Mcknight. ? In November 2016 she underwent an EP study and attempted catheter ablation. The procedure was unsuccessful due to location of the pathway. She was treated with flecainide and states she did well for short period of time. She began experiencing recurrent palpitations. She describes more prolonged episodes of palpitations associated with rapid heart rates lasting about 5-10 minutes. She believes triggers for her symptoms include stress, anxiety as well as physical activity such as working out. ? She was seen and evaluated by Dr. Luong approximately 3 months ago due to her concerns of the flecainide was not keeping her and rhythm. Dr. Luong discussed and reviewed the records available in [facility] [place]. He reviewed the treatment options available one option would be to increase the flecainide dosing. This would be a short-term strategy. A longer-term strategy would be to try to repeat catheter ablation. Patient prefers to undergo a catheter ablation procedure which is scheduled for March 28 at [facility]. ? Procedure will be under general anesthesia. Patient was not able to tolerate moderate sedation well of the last procedure. ? She denies any complaints of chest pain, shortness of breath, dizziness lightheadedness syncope nor near syncope. She does complain of intermittent palpitations which are self-limiting and have not required any further intervention. She has been off the flecainide therapy for the last 6 days in preparation for the ablation. ? Citalopram; Dust; Liquid Bandage [Enbucrilate]; Mold; Pneumovax 23 [Pneumococcal 23-Dawit Ps Vaccine]; Pollen; Propranolol; Smoke; Tetracycline ? CURRENT?MEDICATIONS ? Current Outpatient Prescriptions: traZODone (DESYREL) 50 mg tablet Take 1 tablet by mouth daily at bedtime. Disp: 30 tablet Rfl: 5 cetirizine (ZYRTEC) 10 mg tablet take 1 tablet by mouth once daily Disp: 90 tablet Rfl: 3 estradiol (NOBLE, VIVELLE-DOT) 0.025 mg/24 hr 1 Patch every Tuesday and Tuesday. Disp: Rfl: albuterol HFA (VENTOLIN HFA) 90 mcg/actuation inhaler Inhale 2 Puffs as instructed every 4 hours as needed for Wheezing/Shortness of Breath. Disp: 1 Inhaler Rfl: 0 flecainide (TAMBOCOR) 50 mg tablet Take 1.5 tablets by mouth twice daily. Disp: 90 tablet Rfl: 3 LORazepam (ATIVAN) 0.5 mg tab Take 1 tablet by mouth three times daily as needed. (Patient taking differently: Take 0.5 mg by mouth three times daily as needed (anxiety). ) Disp: 30 tablet Rfl: 5 ? No current facility-administered medications for this visit. ? SOCIAL?HISTORY Social History Marital status: Spouse name: Years of education: 15 Number of children: 3 ? Occupational History Occupation Employer Comment [employer] ? Social History Main Topics Smoking status: Never Smoker ? Smokeless tobacco: Never Used Alcohol use: Yes Comment: occasionally Drug use: No Sexual activity: Yes Partners with: Male control/protection: Other, Surgical Comment: Hysterectomy ? Other Topics Concern Caffeine Concern Yes Special Diet No Exercise No Comment:sedentary ? Social History Narrative OAR[facility] report reviewed February 16, 2012 Gael Bravo MD ? ? ? PAST?MEDICAL?HISTORY PAST MEDICAL HISTORY Diagnosis Date - Allergic rhinitis due to other allergen ? - Encounter for insertion or removal of intrauterine contraceptive device 08/30/2007 ? Mirena, removed March 10 - skilled nursing current use of antiarrhythmic drug ? ? flecainide; indication: symptomatic PSVT with WPW syndrome - Other anxiety states ? - Palpitations ? - Paroxysmal supraventricular tachycardia (HCC) ? - Stress incontinence, female ? - Unspecified asthma(493.90) ? - WPW (Hercp-Xjwbfkfim-Uuqwb syndrome) ? ? associated with symptomatic SVT; attempt at catheter ablation 11/2016 failed; she continues to experience intermittent palpitations and tachycardia despite treatment with flecainide ? ? PAST?SURGICAL?HISTORY PAST SURGICAL HISTORY Procedure Laterality Date - BLADDER SURGERY HX ? 11/2015 ? bladder sling - DELIVERY ONLY ? 85, 88,92 ? , low cervical X3 - ENLARGE BREAST WITH IMPLANT ? 11/2007 ? Breast augmentation - IUD 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 ? 08/30/2007 ? Mirena - removed - OOPHORECTOMY, PART/TOTAL UNILAT/BILAT ? 2016 - REMOVE TONSILS/ADENOIDS,<12 Y/O ? 1969 - S PK LAVH [id number] ? 2013 ? lavh RICKY biltareal salpingectomy - SVT ABLATION W/ EP COMPLETE ? 11/24/2016 ? [facility], Dr. Mcknight; right midseptal AP unable to be ablated despite cryoablation and RF ablation attempts; AP described as not having capability for extremely rapid antegrade conduction ? ? Family?History Family History Problem Relation Age of Onset - Thyroid Mother ? ? ? goiter - Palpitations [OTHER] Mother ? - Asthma Father ? - Asthma Son ? - Palpitations [OTHER] Son ? - Thyroid Maternal Grandmother ? ? ? goiter - Other [OTHER] Maternal Grandfather ? ? ? young in MVA - Emphysema Paternal Grandmother ? - Heart Failure Paternal Grandmother ? - tobacco use [OTHER] Paternal Grandmother ? - Heart disease Paternal Grandfather ? ? ? had a heart attack and at young age - Stroke Paternal Grandfather ? - Prostate Cancer Paternal Grandfather ? - Asthma Daughter ? - Brain tumor [OTHER] Daughter ? ? ? benign - Seizures Brother ? - Heart Brother ? ? ? WPW syndrome; ablation unsuccessful -- too close to AV node - Other [OTHER] Other ? ? ? no unexplained sudden , crib deaths, unexplained syncope ? ? BP 126/82 Pulse 80 Resp 16 Ht 5' 2 (1.58m) Wt 140 lb 9.6 oz (63.8kg) SpO2 99% LMP 05/06/2014 BMI 25.71 kg/(m2). ? Review of Systems Constitutional: Negative. HENT: Negative. Eyes: Negative. Respiratory: Negative. Cardiovascular: Positive for palpitations. Negative for chest pain, orthopnea, claudication, leg swelling and PND. Occasional palpitations and heart racing since stopping flecainide for EPS and ablation next week. Lasting few seconds and reolved without need for vagal maneuvers Gastrointestinal: Negative. Genitourinary: Negative. Musculoskeletal: Negative. Skin: Negative. Neurological: Negative. Endo/Heme/Allergies: Negative. Psychiatric/Behavioral: Negative. ? Objective Physical Exam Constitutional: She is oriented to person, place, and time and well-developed, well-nourished, and in no distress. HENT: Head: Normocephalic. Neck: Normal range of motion. Neck supple. Cardiovascular: Normal rate, regular rhythm, normal heart sounds and intact distal pulses. Pulmonary/Chest: Effort normal and breath sounds normal. Abdominal: Soft. Bowel sounds are normal. Musculoskeletal: Normal range of motion. Neurological: She is alert and oriented to person, place, and time. Skin: Skin is warm and dry. Psychiatric: Mood, memory, affect and judgment normal. ? ? impression/recommendations; ? 1. 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 ? She is scheduled for a EP study with an ablation on March 28 at [facility]. She was instructed that she does need a automation driver to and from the hospital. She'll receive a call the night before from the heart and vascular Center instructing her on time of arrival. She will be NPO from midnight the day before. ? Follow-up appointment will be determined after the procedure and at the time of discharge. ? Note Details Other Notes Nursing Note from Echo Baez Instructions After Visit Summary (Printed 03/23/2018) Additional Documentation Vitals: ? BP 126/82 (BP Site: Right Arm, BP Position: Sitting, BP Cuff Size: Regular Adult) Pulse 80 Resp 16 Ht 157.5 cm (5' 2) Wt 63.8 kg (140 lb 9.6 oz) LMP 05/06/2014 SpO2 99% BMI 25.72 kg/m? BSA 1.67 m? ? More Vitals Flowsheets: ? AMB ROOMING INTAKE MINI, Custom Formula Data Encounter Info: ? Billing Info, History, Allergies, Detailed Report Communications Letter sent to Andrew Gonzalez MD [facility] - HTML Letter ANES PREOP Observed: 03/28/2018 Status: COMPLETED Source: [place] 8:12 AM CLINIC OTHER CAMPUS REPOSITORY HNO ID: [id number] Author: Aron Moralesjustin Service: Anesthesiology Author Type: Physician Type: Anesthesia PreOp Filed: 03/28/2018 8:15 AM Note Text: ANESTHESIOLOGY DAY OF SURGERY NOTE SERVICE DATE: 03/28/2018 SERVICE TIME: 8:12 AM : 1965 Procedure(s) (LRB): COMPLETE EPS W/SVT ABLATION (N/A) Surgeon(s): Albina Luong Estimated body mass index is 25.83 kg/m? as calculated from the following: Height as of this encounter: 157.5 cm (5' 2). Weight as of this encounter: 64 kg (141 lb 3.2 oz). 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 Positive Add (Attention Deficit Disorder) Insomnia, Unspecified Anxiety Primary Insomnia Stress Incontinence in Female Encounter for Screening Colonoscopy 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 Wpw (Simbo-Ktaeyoeyw-Emlxi Syndrome) Gastro-Esophageal Reflux Disease Without Esophagitis Chronic Sinusitis, Unspecified Benign Neoplasm of Unspecified Ovary Asymptomatic Menopausal State Anxiety Disorder, Unspecified Acquired Absence of Both Cervix and Uterus Paroxysmal Supraventricular Tachycardia (Hcc) Palpitations Penitentiary Current Use of Antiarrhythmic Drug PAST MEDICAL HISTORY Diagnosis Date - Allergic rhinitis due to other allergen - Encounter for insertion or removal of intrauterine contraceptive device 08/30/2007 Mirena, removed March 10 - skilled nursing current use of antiarrhythmic drug flecainide; indication: symptomatic PSVT with WPW syndrome - Other anxiety states - Palpitations - Paroxysmal supraventricular tachycardia (HCC) - Stress incontinence, female - Unspecified asthma(493.90) - WPW (Tuwju-Isndqmeri-Nlgin syndrome) associated with symptomatic SVT; attempt at catheter ablation 11/2016 failed; she continues to experience intermittent palpitations and tachycardia despite treatment with flecainide PAST SURGICAL HISTORY Procedure Laterality Date - BLADDER SURGERY HX 11/2015 bladder sling - DELIVERY ONLY 85, 88,92 , low cervical X3 - ENLARGE BREAST WITH IMPLANT 11/2007 Breast augmentation - IUD 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 08/30/2007 Mirena - removed - OOPHORECTOMY, PART/TOTAL UNILAT/BILAT 2016 - REMOVE TONSILS/ADENOIDS,<12 Y/O 1969 - S PK LAVH [id number] 2013 lavh RICKY biltareal salpingectomy - SVT ABLATION W/ EP COMPLETE 11/24/2016 [facility], Dr. Mcknight; right midseptal AP unable to be ablated despite cryoablation and RF ablation attempts; AP described as not having capability for extremely rapid antegrade conduction FAMILY HISTORY Problem Relation Age of Onset - Thyroid Mother goiter - Palpitations [OTHER] Mother - Asthma Father - Asthma Son - Palpitations [OTHER] Son - Thyroid Maternal Grandmother goiter - Other [OTHER] Maternal Grandfather young in MVA - Emphysema Paternal Grandmother - Heart Failure Paternal Grandmother - tobacco use [OTHER] Paternal Grandmother - Heart disease Paternal Grandfather had a heart attack and at young age - Stroke Paternal Grandfather - Prostate Cancer Paternal Grandfather - Asthma Daughter - Brain tumor [OTHER] Daughter benign - Seizures Brother - Heart Brother WPW syndrome; ablation unsuccessful -- too close to AV node - Other [OTHER] Other no unexplained sudden , crib deaths, unexplained syncope Social History: Social History Substance Use Topics - Smoking status: Never Smoker - Smokeless tobacco: Never Used - Alcohol use Yes Comment: occasionally No current facility-administered medications on file prior to encounter. Current Outpatient Prescriptions on File Prior to Encounter: estradiol (NOBLE, VIVELLE-DOT) 0.025 mg/24 hr 1 Patch every Tuesday and Tuesday. flecainide (TAMBOCOR) 50 mg tablet Take 1.5 tablets by mouth twice daily. LORazepam (ATIVAN) 0.5 mg tab Take 1 tablet by mouth three times daily as needed. (Patient taking differently: Take 0.5 mg by mouth three times daily as needed (anxiety). ) albuterol HFA (VENTOLIN HFA) 90 mcg/actuation inhaler Inhale 2 Puffs as instructed every 4 hours as needed for Wheezing/Shortness of Breath. Current Facility-Administered Medications: heparin 1,000 Units in NaCl 0.9% 1,000 mL 1,000 Units INTRAVENOUS ONE TIME Albina Luong 0.9% NaCl 2-10 mL 2-10 mL INTRAVENOUS q 12 H Albina Luong Allergies: ALLERGIES Allergen Reactions - Citalopram Other: See Comments Did not tolerate, ? Mental status changes - Dust Intolerance - Liquid Bandage [Enb* Rash blisters and rash - Mold Other: See Comments Intolerance; itchy throat, runny nose - Pneumovax 23 [Pneum* Swelling tongue swollen arm - Pollen Intolerance - Propranolol Mental Status Change - Smoke Intolerance - Tetracycline GI Upset Abdominal pain/cramping DOS EXAM: Adequate NPO Status: Yes Anesthetic Risks, Benefits, Alternatives, Personnel and Consent Discussed: Yes Patient agrees to proceed: Yes Previous Anesthesia: No history of adverse event, difficulty with moderate sedation Airway Assessment: MP 2; Neck ROM: Full ROM without neurologic symptoms; Airway Evaluation: No significant abnormalities Symptoms of Sleep Apnea: Age over 50 (52 year old) Dentition: Teeth intact Additional Physical Exam: Lungs: Patient health status unchanged since recent history and physical. See history and physical for exam findings. Cardiac: Patient health status unchanged since recent history and physical. See history and physical for exam findings. Additional Pertinent Findings: N/A Blood Products: Will accept Blood/Blood Products Anesthetic Plan: General Anesthetic Monitoring: Standard ASA Monitors Pain Management Plan: Parenteral or Oral ASA Class: 3 Other Medical Problems: WPW with supraventricular tachycardia Normal EF Recent Labs 03/28/18 0705 WBC 7.75 HB 12.8 HCT 38.8 PLT 310 NA 140 K 3.7 CHLOR 109* CO2 27 BUN 14 CREAT 0.91 GLUC 95 CA 9.0 Chronic Beta Soraya medication administered within 24 hours: N/A I have interviewed and examined the patient. I have reviewed the medical record and/or the pre-anesthesia evaluation, pertinent labs, and test results. Significant changes in the patient's condition since the History and Physical, not otherwise documented in primary service progress notes: No This contains updated information obtained within 48 hours of Surgery/Procedure. SIGNATURE: Aron Valenzuela MD PATIENT NAME: Nicki Delacruz DATE: March 28, 2018 TIME: 8:12 AM CSN: [id number] HEMOGRAM Collected: 03/28/2018 Status: F Source: [facility] 7:05 AM HEALTH SYSTEM REPOSITORY TYPE CODE TESTS RESULT OUT OF REFERENCE UNITS RANGE LAB WBC(LOINC) 3.98-10.04 thou/cmm WBC 7.75 LAB RBC(LOINC) 3.93-5.22 mil/cmm RBC 4.34 LAB HGB(LOINC) 11.2-15.7 g/dL Hgb 12.8 LAB HCT(LOINC) 34.1-44.9 % Hct 38.8 LAB MCV(LOINC) 79.4-94.8 fl MCV 89.4 LAB MCH(LOINC) 25.6-32.2 pg MCH 29.5 LAB MCHC(LOINC) 31.6-34.8 % MCHC 33.0 LAB RDW(LOINC) 11.7-14.4 % RDW 13.9 LAB RDWSD(LOINC 36.4-46.3 fl ) RDW SD 45.5 LAB PLT(LOINC) 182-369 thou/cmm Platelet 310 LAB MPV(LOINC) 9.4-12.3 fl MPV 10.3 Performed By: #### CBC1 #### [facility] [address] [place] [address] BASIC PANEL Collected: 03/28/2018 Status: F Source: [facility] 7:05 HEALTH SYSTEM REPOSITORY TYPE CODE TESTS RESULT OUT OF REFERENCE UNITS RANGE LAB NA(LOINC) 136-145 mEq/L Sodium Blood 140 LAB K(LOINC) 3.5-5.1 mEq/L Potassium Blood 3.7 LAB CL(LOINC) 98-107 mEq/L Chloride High Blood 109 LAB CO2(LOINC) 21-32 mEq/L CO2 Blood 27 LAB GLU(LOINC) 70-99 mg/dL Glucose Blood 95 LAB BUN(LOINC) 7-18 mg/dL BUN Blood 14 LAB CREA(LOINC 0.51-0.95 mg/dL ) Creatinine Blood 0.91 LAB CA(LOINC) 8.5-10.1 mg/dL Calcium Blood 9.0 LAB ANGAP(LOIN 8-16 C) Anion Gap 8 Performed By: #### P8 #### [facility] [address] [place], [place] [address] CNPN Observed: 03/28/2018 Status: COMPLETED Source: [place] 12:00 AM CLINIC OTHER CAMPUS REPOSITORY Telephone (AKPR[facility]) NICKI DELACRUZ ([id number]) 1965 F NFR Date Time Provider Department 03/28/18 ALBINA LUONG During your visit today, we recorded the following information about you: Albina Luong MD 03/28/2018 12:56 PM Signed Ms. Delacruz underwent catheter ablation for SVT today. She will need an appointment with Aaron Brown in about 6 weeks. Diagnosis is SVT, WPW syndrome and palpitations s/p catheter ablation. Albina Luong MD March 28, 2018 12:55 PM Allergies As of Date: 03/28/2018 Noted Allergy Reaction CITALOPRAM 09/07/2017 14 - Other: See Comments Comments: Did not tolerate, ? Mental status changes DUST 09/08/2005 5 - Intolerance LIQUID BANDAGE (ENBUCRILATE) 12/27/2017 2 - Rash Comments: blisters and rash MOLD 09/08/2005 14 - Other: See Comments Comments: Intolerance; itchy throat, runny nose PNEUMOVAX 23 (PNEUMOCOCCAL 23-DAWIT*11/20/2013 7 - Swelling Comments: tongue swollen arm POLLEN 09/08/2005 5 - Intolerance PROPRANOLOL 01/25/2007 1 - Mental Status Change SMOKE 09/08/2005 5 - Intolerance TETRACYCLINE 09/08/2005 8 - GI Upset Comments: Abdominal pain/cramping Date Reviewed: 03/28/2018 Reviewed by: Albina Luong - Fully Assessed Reason for Visit: follow up appointment [Other] Prescriptions as of 03/28/2018 Sig: TRAZODONE 50 MG TABLET Take 1 tablet by mouth daily * CETIRIZINE 10 MG TABLET take 1 tablet by mouth once d* FLECAINIDE 50 MG TABLET Take 1.5 tablets by mouth twi* ESTRADIOL 0.025 MG/24 HR SEMI* 1 Patch every Tuesday and * LORAZEPAM 0.5 MG TABLET Take 1 tablet by mouth three * Patient taking differently: Take 0.5 mg by mouth three ti* ALBUTEROL SULFATE HFA 90 MCG/* Inhale 2 Puffs as instructed * Problem List As Of Date 03/28/2018 Noted Resolved Asthma [J45.909] Abnormal involuntary movements(781.0) [R25.8, R*INVALID FOR*11/13/2015 ADJUSTMENT DISORDER WITH DEPRESSED MOOD [F43.21]INVALID FOR* Acute gastritis without mention of hemorrhage [*INVALID FOR*11/13/2015 ASCUS favor benign [R87.610] INVALID FOR*11/17/2011 CERVICAL HPV DNA POSITIVE [R87.810] INVALID FOR* ADD (Attention Deficit Disorder) [F98.8] INVALID FOR* Insomnia, unspecified [G47.00] INVALID FOR* More... Rapid palpitations [R00.2] INVALID FOR*03/23/2018 Uvnkw-Rqdwzxwyd-Enfob (WPW) syndrome [I45.6] INVALID FOR*03/23/2018 Chest discomfort [R07.89] INVALID FOR*11/13/2015 Abnormal uterine bleeding [N93.9] INVALID FOR*09/02/2014 Anxiety [F41.9] INVALID FOR* Primary insomnia [F51.01] INVALID FOR* Stress incontinence in female [N39.3] INVALID FOR* Encounter for screening colonoscopy [Z12.11] INVALID FOR* Complex cyst of right ovary [N83.291] INVALID FOR* Biliary dyskinesia [K82.8] INVALID FOR* More... 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 Encounter Status:Closed by ALBINA LUONG MD on 03/28/18 PROGRESS Observed: 03/23/2018 Status: COMPLETED Source: [place] 4:52 PM CLINIC OTHER CAMPUS REPOSITORY O ID: [id number] Author: Mathieu Chance) Shahid Service: (none) Author Type: Nurse Practitioner Type: Progress Notes Filed: 03/23/2018 5:29 PM Note Text: Subjective HPI Mrs. Delacruz is a 52-year-old female who presents today and a preprocedure visit prior to EP study and ablation scheduled next week with Dr. Luong. To provide a brief medical history. She recalls experiencing symptoms suggestive of arrhythmia since she was young child probably 8 or 9 years of age. She describes her palpitations as fluttering in her chest and racing heartbeats. She had been very athletic as a youth and participate in track and field. She never experienced a syncopal event. Approximate year and a half ago she told a antihistamine decongestant and she started to develop severe palpitations and heart racing. 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 She was referred to Dr. Mcknight at the [facility]. Her brother has a history of WPW and was already a patient of Dr. Mcknight. In November 2016 she underwent an EP study and attempted catheter ablation. The procedure was unsuccessful due to location of the pathway. She was treated with flecainide and states she did well for short period of time. She began experiencing recurrent palpitations. She describes more prolonged episodes of palpitations associated with rapid heart rates lasting about 5-10 minutes. She believes triggers for her symptoms include stress, anxiety as well as physical activity such as working out. She was seen and evaluated by Dr. Luong approximately 3 months ago due to her concerns of the flecainide was not keeping her and rhythm. Dr. Luong discussed and reviewed the records available in [facility]. He reviewed the treatment options available one option would be to increase the flecainide dosing. This would be a short-term strategy. A longer-term strategy would be to try to repeat catheter ablation. Patient prefers to undergo a catheter ablation procedure which is scheduled for March 28 at [facility]. Procedure will be under general anesthesia. Patient was not able to tolerate moderate sedation well of the last procedure. She denies any complaints of chest pain, shortness of breath, dizziness lightheadedness syncope nor near syncope. She does complain of intermittent palpitations which are self-limiting and have not required any further intervention. She has been off the flecainide therapy for the last 6 days in preparation for the ablation. Citalopram; Dust; Liquid Bandage [Enbucrilate]; Mold; Pneumovax 23 [Pneumococcal 23-Dawit Ps Vaccine]; Pollen; Propranolol; Smoke; Tetracycline Current Outpatient Prescriptions: traZODone (DESYREL) 50 mg tablet Take 1 tablet by mouth daily at bedtime. Disp: 30 tablet Rfl: 5 cetirizine (ZYRTEC) 10 mg tablet take 1 tablet by mouth once daily Disp: 90 tablet Rfl: 3 estradiol (NOBLE, VIVELLE-DOT) 0.025 mg/24 hr 1 Patch every Tuesday and Tuesday. Disp: Rfl: albuterol HFA (VENTOLIN HFA) 90 mcg/actuation inhaler Inhale 2 Puffs as instructed every 4 hours as needed for Wheezing/Shortness of Breath. Disp: 1 Inhaler Rfl: 0 flecainide (TAMBOCOR) 50 mg tablet Take 1.5 tablets by mouth twice daily. Disp: 90 tablet Rfl: 3 LORazepam (ATIVAN) 0.5 mg tab Take 1 tablet by mouth three times daily as needed. (Patient taking differently: Take 0.5 mg by mouth three times daily as needed (anxiety). ) Disp: 30 tablet Rfl: 5 No current facility-administered medications for this visit. Social History Marital status: Spouse name: Years of education: 15 Number of children: 3 Occupational History Occupation Employer Comment [employer] Social History Main Topics Smoking status: Never Smoker Smokeless tobacco: Never Used Alcohol use: Yes Comment: occasionally Drug use: No Sexual activity: Yes Partners with: Male control/protection: Other, Surgical Comment: Hysterectomy Other Topics Concern Caffeine Concern Yes Special Diet No Exercise No Comment:sedentary Social History Narrative OARRS report reviewed February 16, 2012 Gael Bravo MD PAST MEDICAL HISTORY Diagnosis Date - Allergic rhinitis due to other allergen - Encounter for insertion or removal of intrauterine contraceptive device 08/30/2007 Mirena, removed March 10 - skilled nursing current use of antiarrhythmic drug flecainide; indication: symptomatic PSVT with WPW syndrome - Other anxiety states - Palpitations - Paroxysmal supraventricular tachycardia (HCC) - Stress incontinence, female - Unspecified asthma(493.90) - 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; attempt at catheter ablation 11/2016 failed; she continues to experience intermittent palpitations and tachycardia despite treatment with flecainide PAST SURGICAL HISTORY Procedure Laterality Date - BLADDER SURGERY HX 11/2015 bladder sling - DELIVERY ONLY 85, 88,92 , low cervical X3 - ENLARGE BREAST WITH IMPLANT 11/2007 Breast augmentation - IUD 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 08/30/2007 Mirena - removed - OOPHORECTOMY, PART/TOTAL UNILAT/BILAT 2016 - REMOVE TONSILS/ADENOIDS,<12 Y/O 1968 - S PK LAVH [id number] 2013 lavh RICKY biltareal salpingectomy - SVT ABLATION W/ EP COMPLETE 11/24/2016 [facility], Dr. Mcknight; right midseptal AP unable to be ablated despite cryoablation and RF ablation attempts; AP described as not having capability for extremely rapid antegrade conduction Family History Problem Relation Age of Onset - Thyroid Mother goiter - Palpitations [OTHER] Mother - Asthma Father - Asthma Son - Palpitations [OTHER] Son - Thyroid Maternal Grandmother goiter - Other [OTHER] Maternal Grandfather young in MVA - Emphysema Paternal Grandmother - Heart Failure Paternal Grandmother - tobacco use [OTHER] Paternal Grandmother - Heart disease Paternal Grandfather had a heart attack and at young age - Stroke Paternal Grandfather - Prostate Cancer Paternal Grandfather - Asthma Daughter - Brain tumor [OTHER] Daughter benign - Seizures Brother - Heart Brother WPW syndrome; ablation unsuccessful -- too close to AV node - Other [OTHER] Other no unexplained sudden , crib deaths, unexplained syncope BP 126/82 Pulse 80 Resp 16 Ht 5' 2 (1.58m) Wt 140 lb 9.6 oz (63.8kg) SpO2 99% LMP 05/06/2014 BMI 25.71 kg/(m2). Review of Systems Constitutional: Negative. HENT: Negative. Eyes: Negative. Respiratory: Negative. Cardiovascular: Positive for palpitations. Negative for chest pain, orthopnea, claudication, leg swelling and PND. Occasional palpitations and heart racing since stopping flecainide for EPS and ablation next week. Lasting few seconds and reolved without need for vagal maneuvers Gastrointestinal: Negative. Genitourinary: Negative. Musculoskeletal: Negative. Skin: Negative. Neurological: Negative. Endo/Heme/Allergies: Negative. Psychiatric/Behavioral: Negative. Objective Physical Exam Constitutional: She is oriented to person, place, and time and well-developed, well-nourished, and in no distress. HENT: Head: Normocephalic. Neck: Normal range of motion. Neck supple. Cardiovascular: Normal rate, regular rhythm, normal heart sounds and intact distal pulses. Pulmonary/Chest: Effort normal and breath sounds normal. Abdominal: Soft. Bowel sounds are normal. Musculoskeletal: Normal range of motion. Neurological: She is alert and oriented to person, place, and time. Skin: Skin is warm and dry. Psychiatric: Mood, memory, affect and judgment normal. impression/recommendations; 1. 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 She is scheduled for a EP study with an ablation on March 28 at [facility]. She was instructed that she does need a automation driver to and from the hospital. She'll receive a call the night before from the heart and vascular Center instructing her on time of arrival. She will be NPO from midnight the day before. Follow-up appointment will be determined after the procedure and at the time of discharge. CNOV Observed: 03/23/2018 Status: COMPLETED Source: [place] 3:30 PM CLINIC OTHER CAMPUS REPOSITORY Office Visit (AGCARDPOB) NICKI DELACRUZ ([id number]) 1965 F NFR Date Time Provider Department 03/23/18 3:30 PM MATHIEU KEY (JESSICA) AGCARDPOB During your visit today, we recorded the following information about you: Pulse Respiration Blood pressure Weight 80/minute 16/minute 126/82 63.8 kg Height 1.575 m Echo Baez CMA 03/23/2018 3:50 PM Signed Patient denies any cardiac complaints today. KANDI Marmolejo APRN.CNP 03/23/2018 5:29 PM Signed Subjective HPI Mrs. Delacruz is a 52-year-old female who presents today and a preprocedure visit prior to EP study and ablation scheduled next week with Dr. Luong. To provide a brief medical history. She recalls experiencing symptoms suggestive of arrhythmia since she was young child probably 8 or 9 years of age. She describes her palpitations as fluttering in her chest and racing heartbeats. She had been very athletic as a youth and participate in track and field. She never experienced a syncopal event. Approximate year and a half ago she told a antihistamine decongestant and she started to develop severe palpitations and heart racing. 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 She was referred to Dr. Mcknight at the [facility]. Her brother has a history of WPW and was already a patient of Dr. Mcknight. In November 2016 she underwent an EP study and attempted catheter ablation. The procedure was unsuccessful due to location of the pathway. She was treated with flecainide and states she did well for short period of time. She began experiencing recurrent palpitations. She describes more prolonged episodes of palpitations associated with rapid heart rates lasting about 5-10 minutes. She believes triggers for her symptoms include stress, anxiety as well as physical activity such as working out. She was seen and evaluated by Dr. Luong approximately 3 months ago due to her concerns of the flecainide was not keeping her and rhythm. Dr. Luong discussed and reviewed the records available in [facility]. He reviewed the treatment options available one option would be to increase the flecainide dosing. This would be a short-term strategy. A longer-term strategy would be to try to repeat catheter ablation. Patient prefers to undergo a catheter ablation procedure which is scheduled for March 28 at [facility]. Procedure will be under general anesthesia. Patient was not able to tolerate moderate sedation well of the last procedure. She denies any complaints of chest pain, shortness of breath, dizziness lightheadedness syncope nor near syncope. She does complain of intermittent palpitations which are self-limiting and have not required any further intervention. She has been off the flecainide therapy for the last 6 days in preparation for the ablation. Citalopram; Dust; Liquid Bandage [Enbucrilate]; Mold; Pneumovax 23 [Pneumococcal 23-Dawit Ps Vaccine]; Pollen; Propranolol; Smoke; Tetracycline Current Outpatient Prescriptions: traZODone (DESYREL) 50 mg tablet Take 1 tablet by mouth daily at bedtime. Disp: 30 tablet Rfl: 5 cetirizine (ZYRTEC) 10 mg tablet take 1 tablet by mouth once daily Disp: 90 tablet Rfl: 3 estradiol (NOBLE, VIVELLE-DOT) 0.025 mg/24 hr 1 Patch every Tuesday and Tuesday. Disp: Rfl: albuterol HFA (VENTOLIN HFA) 90 mcg/actuation inhaler Inhale 2 Puffs as instructed every 4 hours as needed for Wheezing/Shortness of Breath. Disp: 1 Inhaler Rfl: 0 flecainide (TAMBOCOR) 50 mg tablet Take 1.5 tablets by mouth twice daily. Disp: 90 tablet Rfl: 3 LORazepam (ATIVAN) 0.5 mg tab Take 1 tablet by mouth three times daily as needed. (Patient taking differently: Take 0.5 mg by mouth three times daily as needed (anxiety). ) Disp: 30 tablet Rfl: 5 No current facility-administered medications for this visit. Social History Marital status: Spouse name: Years of education: 15 Number of children: 3 Occupational History Occupation Employer Comment [employer] Social History Main Topics Smoking status: Never Smoker Smokeless tobacco: Never Used Alcohol use: Yes Comment: occasionally Drug use: No Sexual activity: Yes Partners with: Male control/protection: Other, Surgical Comment: Hysterectomy Other Topics Concern Caffeine Concern Yes Special Diet No Exercise No Comment:sedentary Social History Narrative OARRS report reviewed February 16, 2012 Gael Bravo MD PAST MEDICAL HISTORY Diagnosis Date - Allergic rhinitis due to other allergen - Encounter for insertion or removal of intrauterine contraceptive device 08/30/2007 Mirena, removed March 10 - terminologist current use of antiarrhythmic drug flecainide; indication: symptomatic PSVT with WPW syndrome - Other anxiety states - Palpitations - Paroxysmal supraventricular tachycardia (HCC) - Stress incontinence, female - Unspecified asthma(493.90) - WPW (Rvjct-Aaanopwat-Jpfvu syndrome) associated with symptomatic SVT; attempt at catheter ablation 11/2016 failed; she continues to experience intermittent palpitations and tachycardia despite treatment with flecainide PAST SURGICAL HISTORY Procedure Laterality Date - BLADDER SURGERY HX 11/2015 bladder sling - DELIVERY ONLY 85, 88,92 , low cervical X3 - ENLARGE BREAST WITH IMPLANT 11/2007 Breast augmentation - IUD 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 08/30/2007 Mirena - removed - OOPHORECTOMY, PART/TOTAL UNILAT/BILAT 2016 - REMOVE TONSILS/ADENOIDS,<12 Y/O 1968 - S PK LAVH [id number] 2013 lavh RICKY biltareal salpingectomy - SVT ABLATION W/ EP COMPLETE 11/24/2016 [facility], Dr. Mcknight; right midseptal AP unable to be ablated despite cryoablation and RF ablation attempts; AP described as not having capability for extremely rapid antegrade conduction Family History Problem Relation Age of Onset - Thyroid Mother goiter - Palpitations [OTHER] Mother - Asthma Father - Asthma Son - Palpitations [OTHER] Son - Thyroid Maternal Grandmother goiter - Other [OTHER] Maternal Grandfather young in MVA - Emphysema Paternal Grandmother - Heart Failure Paternal Grandmother - tobacco use [OTHER] Paternal Grandmother - Heart disease Paternal Grandfather had a heart attack and at young age - Stroke Paternal Grandfather - Prostate Cancer Paternal Grandfather - Asthma Daughter - Brain tumor [OTHER] Daughter benign - Seizures Brother - Heart Brother WPW syndrome; ablation unsuccessful -- too close to AV node - Other [OTHER] Other no unexplained sudden , crib deaths, unexplained syncope BP 126/82 Pulse 80 Resp 16 Ht 5' 2 (1.58m) Wt 140 lb 9.6 oz (63.8kg) SpO2 99% LMP 05/06/2014 BMI 25.71 kg/(m2). Review of Systems Constitutional: Negative. HENT: Negative. Eyes: Negative. Respiratory: Negative. Cardiovascular: Positive for palpitations. Negative for chest pain, orthopnea, claudication, leg swelling and PND. Occasional palpitations and heart racing since stopping flecainide for EPS and ablation next week. Lasting few seconds and reolved without need for vagal maneuvers Gastrointestinal: Negative. Genitourinary: Negative. Musculoskeletal: Negative. Skin: Negative. Neurological: Negative. Endo/Heme/Allergies: Negative. Psychiatric/Behavioral: Negative. Objective Physical Exam Constitutional: She is oriented to person, place, and time and well-developed, well-nourished, and in no distress. HENT: Head: Normocephalic. Neck: Normal range of motion. Neck supple. Cardiovascular: Normal rate, regular rhythm, normal heart sounds and intact distal pulses. Pulmonary/Chest: Effort normal and breath sounds normal. Abdominal: Soft. Bowel sounds are normal. Musculoskeletal: Normal range of motion. Neurological: She is alert and oriented to person, place, and time. Skin: Skin is warm and dry. Psychiatric: Mood, memory, affect and judgment normal. impression/recommendations; 1. 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 She is scheduled for a EP study with an ablation on March 28 at [facility]. She was instructed that she does need a automation driver to and from the hospital. She'll receive a call the night before from the heart and vascular Center instructing her on time of arrival. She will be NPO from midnight the day before. Follow-up appointment will be determined after the procedure and at the time of discharge. Referring Provider: MATHIEU KEY ([facility]) [[id number]] Allergies As of Date: 03/23/2018 Noted Allergy Reaction CITALOPRAM 09/07/2017 14 - Other: See Comments Comments: Did not tolerate, ? Mental status changes DUST 09/08/2005 5 - Intolerance LIQUID BANDAGE (ENBUCRILATE) 12/27/2017 2 - Rash Comments: blisters and rash MOLD 09/08/2005 14 - Other: See Comments Comments: Intolerance; itchy throat, runny nose PNEUMOVAX 23 (PNEUMOCOCCAL 23-DAWIT*11/20/2013 7 - Swelling Comments: tongue swollen arm POLLEN 09/08/2005 5 - Intolerance PROPRANOLOL 01/25/2007 1 - Mental Status Change SMOKE 09/08/2005 5 - Intolerance TETRACYCLINE 09/08/2005 8 - GI Upset Comments: Abdominal pain/cramping Date Reviewed: 03/23/2018 Reviewed by: Mathieu BucknerApplication SpecHelio Key - Fully Assessed Reason for Visit: Cardiology Follow Up [1732] Cmt: update HANDP for SVT Ablation Primary Visit Diagnosis:Paroxysmal supraventricular tachycardia (HCC) [I47.1] Other Visit Diagnoses:WPW (Yrgjo-Uwtzmazda-Gpzoh syndrome) [I45.6] Palpitations [R00.2] Prescriptions as of 03/23/2018 Sig: TRAZODONE 50 MG TABLET Take 1 tablet by mouth daily * CETIRIZINE 10 MG TABLET take 1 tablet by mouth once d* ESTRADIOL 0.025 MG/24 HR SEMI* 1 Patch every Tuesday and * ALBUTEROL SULFATE HFA 90 MCG/* Inhale 2 Puffs as instructed * FLECAINIDE 50 MG TABLET Take 1.5 tablets by mouth twi* LORAZEPAM 0.5 MG TABLET Take 1 tablet by mouth three * Patient taking differently: Take 0.5 mg by mouth three ti* Medication notes this encounter FLECAINIDE 50 MG TABLET >> Echo Baez CMA 03/23/2018 3:49 PM >> CEHO BAEZ CMA Natalia Mar 23, 2018 3:49 PM Not taking Problem List As Of Date 03/23/2018 Noted Resolved Asthma [J45.909] Abnormal involuntary movements(781.0) [R25.8, R*INVALID FOR*11/13/2015 ADJUSTMENT DISORDER WITH DEPRESSED MOOD [F43.21]INVALID FOR* Acute gastritis without mention of hemorrhage [*INVALID FOR*11/13/2015 ASCUS favor benign [R87.610] INVALID FOR*11/17/2011 CERVICAL HPV DNA POSITIVE [R87.810] INVALID FOR* ADD (Attention Deficit Disorder) [F98.8] INVALID FOR* Insomnia, unspecified [G47.00] INVALID FOR* More... Rapid palpitations [R00.2] INVALID FOR*03/23/2018 Lqkcx-Zqktccxhe-Zzcpk (WPW) syndrome [I45.6] INVALID FOR*03/23/2018 Chest discomfort [R07.89] INVALID FOR*11/13/2015 Abnormal uterine bleeding [N93.9] INVALID FOR*09/02/2014 Anxiety [F41.9] INVALID FOR* Primary insomnia [F51.01] INVALID FOR* Stress incontinence in female [N39.3] INVALID FOR* Encounter for screening colonoscopy [Z12.11] INVALID FOR* Complex cyst of right ovary [N83.291] INVALID FOR* Biliary dyskinesia [K82.8] INVALID FOR* More... 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 Visit Notes: >> Echo Baez [facility] Mar 23, 2018 3:49 PM Status: Signed Patient denies any cardiac complaints today. Echo Baez CMA Follow-up and Disposition History Recorded Letter Text [facility] [place] [address] [id number] Dept: [phone] Dept Mathieu Key APRN.CNP March 23, 2018 Nicki Delacruz [address] [id number] 1965 To Whom It May Concern: This is to certify that Nicki has been under my care and will be able to return to work on Tuesday April 10, 2018 with no restrictions If you have further questions regarding this patient's health status, please contact our office. Sincerely, Mathieu Key APRN.CNP (Signed electronically to expedite mailing) Letter Text Encounter Status:Closed by MATHIEU KEY CNP on 03/23/18 DOWNTIME REPORT Observed: 03/23/2018 Status: F Source: [place] 12:03 PM [facility] REPOSITORY [facility] Medical Records Department [address] [place] [address] Downtime Report MR#: [id number] Acct: [id number] Name: NICKI DELACRUZ Rep #: [id number] : 1965 52 From: Pk Wilcox PCP: RIK GONZALEZ Status: REG CLI This patient was seen during an EMR downtime March 06, 2018 - March 13, 2018. This patient may have a combination of paper and electronic documentation or all paper documentation. All documentation is viewable within the e-chart portion of [facility] for each patient visit. SCREENING MAMM (CAD), Observed: 03/10/2018 Status: F Source: [place] BIL[place] 9:47 AM [facility] REPOSITORY [facility] Imaging Services [address] [place] [address] SCREENING MAMM (CAD), BILAT MR#: [id number] Acct: [id number] Name: NICKI DELACRUZ Rep #: [id number] : 1965 F 52 From: Angel Ramirez MD PCP: RIK GONZALEZ Status: REG CLI Study: SCREENING MAMM (CAD), BILAT Date of Exam: 03/07/18 Exam# [id number] Ordering Dr: Tootie Figueroa MD MAMMOGRAPHY - BILATERAL SCREENING REASON FOR EXAM: Female, 52 years old. Routine annual screening examination. PERTINENT HISTORY: NO FAM HX - BILAT IMPLANTS 2005 - CURRENT ESTADIOL X 8 MONTHS - PRE [facility] TECHNIQUE: Digital bilateral breast tyrone (3D mammographic acquisition) in the CC and MLO projections. 2-D mediolateral oblique (MLO) and craniocaudad (CC) views of both breasts were obtained. CAD: Full Field Digital Mammography with Computer Added Detection was performed. COMPARISON: 01/11/2017 and 12/03/2015 FINDINGS: Breast Composition: There are scattered areas of fibroglandular density. There are no dominant masses or suspicious calcifications. No other significant abnormalities are identified. BI/SCREENING MAMM (CAD), BILAT IMPRESSION: Stable bilateral screening mammogram. Yearly follow-up mammogram recommended. (A) ASSESSMENT CATEGORY: BIRADS Category 2: Benign. A letter regarding these results will be sent to the patient by the facility within 30 days. Approximately 10% of breast cancers are not detected by mammography. A normal mammogram should not delay biopsy of a clinically suspicious abnormality. [id number] Electronically Signed: Angel Ramirez MD at 12:52 EDT Tel , Service support , CC: RIK GONZALEZ; Tootie Figueroa MD Clam Digger: Signed CNPN Observed: 02/01/2018 Status: COMPLETED Source: [facility] 12:00 AM [facility] OTHER [facility] REPOSITORY Telephone (AGCARDPOB) NICKI DELACRUZ ([id number]) 1965 F NFR Date Time Provider Department 02/01/18 ALBINA LUONG AGCARDPOB During your visit today, we recorded the following information about you: Caern De León 02/01/2018 9:14 AM Signed Nicki was returning your call to reschedule her procedure . Please call her at . Caren De León 02/01/2018 09:08:43 Allergies As of Date: 02/01/2018 Noted Allergy Reaction CITALOPRAM 09/07/2017 14 - Other: See Comments Comments: Did not tolerate, ? Mental status changes DUST 09/08/2005 5 - Intolerance LIQUID BANDAGE (ENBUCRILATE) 12/27/2017 2 - Rash Comments: blisters and rash MOLD 09/08/2005 14 - Other: See Comments Comments: Intolerance; itchy throat, runny nose PNEUMOVAX 23 (PNEUMOCOCCAL 23-DAWIT*11/20/2013 7 - Swelling Comments: tongue swollen arm POLLEN 09/08/2005 5 - Intolerance PROPRANOLOL 01/25/2007 1 - Mental Status Change SMOKE 09/08/2005 5 - Intolerance TETRACYCLINE 09/08/2005 8 - GI Upset Comments: Abdominal pain/cramping Date Reviewed: 12/27/2017 Reviewed by: Kelley Martin Ma - Fully Assessed Reason for Visit: Procedure [88] Cmt: scheduling Prescriptions as of 02/01/2018 Sig: FLECAINIDE 50 MG TABLET Take 1.5 tablets by mouth twi* ESTRADIOL 0.025 MG/24 HR SEMI* 1 Patch every Tuesday and * TRAZODONE 50 MG TABLET Take 1 tablet by mouth daily * LORAZEPAM 0.5 MG TABLET Take 1 tablet by mouth three * Patient taking differently: Take 0.5 mg by mouth three ti* ALBUTEROL SULFATE HFA 90 MCG/* Inhale 2 Puffs as instructed * CETIRIZINE 10 MG TABLET Take 1 tablet by mouth once d* Problem List As Of Date 02/01/2018 Noted Resolved Asthma [J45.909] Abnormal involuntary movements(781.0) [R25.8, R*INVALID FOR*11/13/2015 ADJUSTMENT DISORDER WITH DEPRESSED MOOD [F43.21]INVALID FOR* Acute gastritis without mention of hemorrhage [*INVALID FOR*11/13/2015 ASCUS favor benign [R87.610] INVALID FOR*11/17/2011 CERVICAL HPV DNA POSITIVE [R87.810] INVALID FOR* ADD (Attention Deficit Disorder) [F98.8] INVALID FOR* Insomnia, unspecified [G47.00] INVALID FOR* More... 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 Encounter Status:Closed by CAREN DE LEÓN on 02/01/18 CNPN Observed: 12/28/2017 Status: COMPLETED Source: [facility] 12:00 AM [facility] OTHER [facility] REPOSITORY Telephone (AGCARDPOB) NICKI DELACRUZ ([id number]) 1965 F NFR Date Time Provider Department 12/28/17 ALBINA LUONG AGCLOUIS During your visit today, we recorded the following information about you: Mary Heather 12/28/2017 12:04 PM Signed Procedure: COMPLETE EPS W/SVT ABLATION Procedure is scheduled with Dr. Luong on 02/07/18. Venecia Rivas RN 12/28/2017 12:57 PM Signed Added to procedure board. VINCENT Simental 12/28/2017 1:18 PM Signed Printed, will auth Venecia Rivas RN 01/30/2018 3:49 PM Signed Patient called in asking to schedule her procedure. States that she is unable to have procedure done on this date because she needs to request time off from work. Please call to reschedule. Venecia Rivas RN Allergies As of Date: 12/28/2017 Noted Allergy Reaction CITALOPRAM 09/07/2017 14 - Other: See Comments Comments: Did not tolerate, ? Mental status changes DUST 09/08/2005 5 - Intolerance LIQUID BANDAGE (ENBUCRILATE) 12/27/2017 2 - Rash Comments: blisters and rash MOLD 09/08/2005 14 - Other: See Comments Comments: Intolerance; itchy throat, runny nose PNEUMOVAX 23 (PNEUMOCOCCAL 23-DAWIT*11/20/2013 7 - Swelling Comments: tongue swollen arm POLLEN 09/08/2005 5 - Intolerance PROPRANOLOL 01/25/2007 1 - Mental Status Change SMOKE 09/08/2005 5 - Intolerance TETRACYCLINE 09/08/2005 8 - GI Upset Comments: Abdominal pain/cramping Date Reviewed: 12/27/2017 Reviewed by: Kelley Martin Ma - Fully Assessed Reason for Visit: Procedure [88] Prescriptions as of 12/28/2017 Sig: NITROFURANTOIN MONOHYDRATE AND * Take 1 capsule by mouth twice* FLECAINIDE 50 MG TABLET Take 1.5 tablets by mouth twi* ESTRADIOL 0.025 MG/24 HR SEMI* 1 Patch every Tuesday and * TRAZODONE 50 MG TABLET Take 1 tablet by mouth daily * LORAZEPAM 0.5 MG TABLET Take 1 tablet by mouth three * Patient taking differently: Take 0.5 mg by mouth three ti* ALBUTEROL SULFATE HFA 90 MCG/* Inhale 2 Puffs as instructed * CETIRIZINE 10 MG TABLET Take 1 tablet by mouth once d* Problem List As Of Date 12/28/2017 Noted Resolved Asthma [J45.909] Abnormal involuntary movements(781.0) [R25.8, R*INVALID FOR*11/13/2015 ADJUSTMENT DISORDER WITH DEPRESSED MOOD [F43.21]INVALID FOR* Acute gastritis without mention of hemorrhage [*INVALID FOR*11/13/2015 ASCUS favor benign [R87.610] INVALID FOR*11/17/2011 CERVICAL HPV DNA POSITIVE [R87.810] INVALID FOR* ADD (Attention Deficit Disorder) [F98.8] INVALID FOR* Insomnia, unspecified [G47.00] INVALID FOR* More... 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 Encounter Status:Closed by VENECIA RIVAS RN on 12/28/17 PROGRESS Observed: 12/27/2017 Status: COMPLETED Source: [place] 2:46 PM [facility] [place] REPOSITORY O ID: [id number] Author: Yamilet (Application Spec) NEVIN Foley.SOURCE INSPECTOR Service: (none) Author Type: Nurse Practitioner Type: Progress Notes Filed: 12/27/2017 5:01 PM Note Text: Subjective The history is provided by the patient. No entry operator was used. HPI Nicki Delacruz is a 52 year old female who presents today for CC of frequency of urination This started in the past 24 hours She is also having lower abdominal pressure, and odor with urination Symptoms are worsened by voiding She has tried no treatment or medication Risk factors sexually active PMH bladder lift BP 110/72 Pulse 78 Temp 36.9 ?C (98.4 ?F) (Tympanic) Resp 16 Wt 64.4 kg (142 lb) LMP 05/06/2014 BMI 25.97 kg/m2 ALLERGIES Allergen Reactions - Citalopram Other: See Comments Did not tolerate, ? Mental status changes - Dust Intolerance - Liquid Bandage [Enb* Rash blisters and rash - Mold Other: See Comments Intolerance; itchy throat, runny nose - Pneumovax 23 [Pneum* Swelling tongue swollen arm - Pollen Intolerance - Propranolol Mental Status Change - Smoke Intolerance - Tetracycline GI Upset Abdominal pain/cramping ACTIVE PROBLEM LIST Asthma Adjustment Disorder With Depressed Mood Cervical High 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 Positive Add (Attention Deficit Disorder) Insomnia, Unspecified Rapid Palpitations Bpjcw-Itkekcdnn-Fnesj (Wpw) Syndrome Anxiety Primary Insomnia Stress Incontinence in Female Encounter for Screening Colonoscopy 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 Wpw (Nmaaq-Qiwtfkrnd-Bxhje Syndrome) Gastro-Esophageal Reflux Disease Without Esophagitis Chronic Sinusitis, Unspecified Benign Neoplasm of Unspecified Ovary Asymptomatic Menopausal State Anxiety Disorder, Unspecified Acquired Absence of Both Cervix and Uterus Paroxysmal Supraventricular Tachycardia (Hcc) Palpitations Penitentiary Current Use of Antiarrhythmic Drug Family History Problem Relation Age of Onset - Thyroid Mother goiter - Palpitations [OTHER] Mother - Asthma Father - Asthma Son - Palpitations [OTHER] Son - Thyroid Maternal Grandmother goiter - Other [OTHER] Maternal Grandfather young in MVA - Emphysema Paternal Grandmother - Heart Failure Paternal Grandmother - tobacco use [OTHER] Paternal Grandmother - Heart disease Paternal Grandfather had a heart attack and at young age - Stroke Paternal Grandfather - Prostate Cancer Paternal Grandfather - Asthma Daughter - Brain tumor [OTHER] Daughter benign - Seizures Brother - Heart Brother WPW syndrome; ablation unsuccessful -- too close to AV node - Other [OTHER] Other no unexplained sudden , crib deaths, unexplained syncope Social History Marital status: Spouse name: Years of education: 15 Number of children: 3 Occupational History Occupation Employer Comment [employer] Social History Main Topics Smoking status: Never Smoker Smokeless status: Never Used Alcohol use: Yes Comment: occasionally Drug use: No Sexual activity: Yes Partners with: Male control/protection: Other, Surgical Comment: Hysterectomy Social History Narrative OARRS report reviewed February 16, 2012 Gael Bravo MD Review of Systems Constitutional: Negative for chills, fever and malaise/fatigue. Gastrointestinal: Positive for abdominal pain (pressure, suprapubic). Genitourinary: Positive for dysuria and frequency. Negative for flank pain, hematuria and urgency. Skin: Negative for rash. Neurological: Negative for headaches. Objective Physical Exam Constitutional: She is oriented to person, place, and time and well-developed, well-nourished, and in no distress. HENT: Head: Normocephalic and atraumatic. Eyes: Conjunctivae and EOM are normal. Pupils are equal, round, and reactive to light. Neck: Normal range of motion. Neck supple. Pulmonary/Chest: Effort normal. Abdominal: Soft. Bowel sounds are normal. She exhibits no abdominal bruit, no pulsatile midline mass and no mass. There is no hepatosplenomegaly. There is tenderness in the suprapubic area. There is no rigidity, no rebound, no guarding, no CVA tenderness, no tenderness at McBurney's point and negative House's sign. Neurological: She is alert and oriented to person, place, and time. Skin: Skin is warm. Psychiatric: Affect normal. Nursing note and vitals reviewed. Component Latest Ref Rng AND Units 12/27/2017 Glucose, Urine Neg mg/dL neg Bilirubin, Urine Neg neg Ketones, Urine Neg small Specific Eva, Ur 1.005 - 1.030 1.025 Hemoglobin/Blood,Ur Neg mod pH, Urine 4.5 - 8.0 5.0 Protein, Urine Neg mg/dL neg Urobilinogen, Urine Normal (<1.1) EU norm Nitrites Neg neg Leukocytes Neg mod Color/Appearance comment: yellow/clear Quality Check yes/no Yes ASSESSMENT/PLAN: 1. Acute cystitis with hematuria - ICD9: 595.0, ICD10: N30.01 (primary diagnosis) -Avoid alcohol and caffeine as these are bladder irritants and may make symptoms worse. -You can take OTC AZO if needed for painful urination but not for longer then 2 days. -Urinate before and after intercourse. -Follow up with PCP or return to clinic if symptoms not improving in 3 days or if you develop any new (or worsening) symptoms such as fever, chills or back pain. - UA DIP B/O - URINE CULTURE - NITROFURANTOIN MONOHYDRATE AND MACROCRYSTAL 100 MG ORAL CAP 2. Urinary frequency - ICD9: 788.41, ICD10: R35.0 acute - UA positive for estefani esterase and hematuria - Send urine for culture - Patient education for prevention given - UA DIP B/O - URINE CULTURE 3. Feared condition not demonstrated - ICD9: V65.5, ICD10: Z71.1 Take fluconazole at onset of symptoms and repeat dose after complete antibiotic - FLUCONAZOLE 150 MG TABLET Diagnosis and treatment plan were discussed and questions were answered to the patient's satisfaction. Pt acknowledged understanding of concepts and follow up plan. Specific signs and symptoms that would indicate the need for higher level of care were discussed in detail warranting prompt ER evaluation. Yamilet Foley APRN.CNP Observed: 12/27/2017 Status: F Source: [place] URINE CULTURE 2:44 PM [facility] REPOSITORY Sp. Request/Comment: - Specimen received in preservative Culture Result - >=100,000 CFU/ml Escherichia coli --> ABNORMAL ALERT ORGANISM: Escherichia coli METHOD: Minimum inhibitory concentration(Vitek) Antibiotic Interp SARAH Status Ampicillin RESISTANT F Gentamicin SUSCEPTIBLE <=1 F Trimeth sulfameth SUSCEPTIBLE <=20 F Cefazolin SUSCEPTIBLE <=4 F CLSI breakpoints for therapy of uncomplicated UTI's due to E.coli, K.pneumoniae, and P.mirabilis were applied and may be used to predict the activity of oral agents(cefaclor, cefdinir, cefpodoxime, cefp rozil, cefuroxime, cephalexin, loracarbef). Ciprofloxacin SUSCEPTIBLE <=0.25 F Nitrofurantoin SUSCEPTIBLE <=16 F Cefepime SUSCEPTIBLE <=1 F Piperacillin/Tazobac SUSCEPTIBLE <=4 F Ampicillin Sulbact SUSCEPTIBLE 4 F Ceftriaxone SUSCEPTIBLE <=1 F Meropenem SUSCEPTIBLE <=0.25 F Ertapenem SUSCEPTIBLE <=0.5 F Performed By: #### URCUL #### [facility] [address] [place], [place] [address] CNOV Observed: 12/27/2017 Status: COMPLETED Source: [place] 2:00 PM [facility] REPOSITORY Office Visit ([facility]WSTR) NICKI DELACRUZ ([id number]) 1965 F NFR Date Time Provider Department 12/27/17 2:00 PM YAMILET FOLEY (SOURCE INSPECTOR) [facility] During your visit today, we recorded the following information about you: Temperature Pulse Respiration Blood pressure 98.4 degrees 78/minute 16/minute 110/72 Weight 64.4 kg Yamilet Foley APRN.JESSICA, SHANI 12/27/2017 5:01 PM Signed Subjective The history is provided by the patient. No entry operator was used. HPI Nicki Delacruz is a 52 year old female who presents today for CC of frequency of urination This started in the past 24 hours She is also having lower abdominal pressure, and odor with urination Symptoms are worsened by voiding She has tried no treatment or medication Risk factors sexually active PMH bladder lift BP 110/72 Pulse 78 Temp 36.9 ?C (98.4 ?F) (Tympanic) Resp 16 Wt 64.4 kg (142 lb) LMP 05/06/2014 BMI 25.97 kg/m2 ALLERGIES Allergen Reactions - Citalopram Other: See Comments Did not tolerate, ? Mental status changes - Dust Intolerance - Liquid Bandage [Enb* Rash blisters and rash - Mold Other: See Comments Intolerance; itchy throat, runny nose - Pneumovax 23 [Pneum* Swelling tongue swollen arm - Pollen Intolerance - Propranolol Mental Status Change - Smoke Intolerance - Tetracycline GI Upset Abdominal pain/cramping ACTIVE PROBLEM LIST Asthma Adjustment Disorder With Depressed Mood Cervical High 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 Positive Add (Attention Deficit Disorder) Insomnia, Unspecified Rapid Palpitations Xjlcf-Omekuwitt-Yfafq (Wpw) Syndrome Anxiety Primary Insomnia Stress Incontinence in Female Encounter for Screening Colonoscopy 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 Wpw (Enera-Zirxborio-Hcnwc Syndrome) Gastro-Esophageal Reflux Disease Without Esophagitis Chronic Sinusitis, Unspecified Benign Neoplasm of Unspecified Ovary Asymptomatic Menopausal State Anxiety Disorder, Unspecified Acquired Absence of Both Cervix and Uterus Paroxysmal Supraventricular Tachycardia (Hcc) 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 Drug Family History Problem Relation Age of Onset - Thyroid Mother goiter - Palpitations [OTHER] Mother - Asthma Father - Asthma Son - Palpitations [OTHER] Son - Thyroid Maternal Grandmother goiter - Other [OTHER] Maternal Grandfather young in MVA - Emphysema Paternal Grandmother - Heart Failure Paternal Grandmother - tobacco use [OTHER] Paternal Grandmother - Heart disease Paternal Grandfather had a heart attack and at young age - Stroke Paternal Grandfather - Prostate Cancer Paternal Grandfather - Asthma Daughter - Brain tumor [OTHER] Daughter benign - Seizures Brother - Heart Brother WPW syndrome; ablation unsuccessful -- too close to AV node - Other [OTHER] Other no unexplained sudden , crib deaths, unexplained syncope Social History Marital status: Spouse name: Years of education: 15 Number of children: 3 Occupational History Occupation Employer Comment [employer] Social History Main Topics Smoking status: Never Smoker Smokeless status: Never Used Alcohol use: Yes Comment: occasionally Drug use: No Sexual activity: Yes Partners with: Male control/protection: Other, Surgical Comment: Hysterectomy Social History Narrative OARRS report reviewed February 16, 2012 Gael Bravo MD Review of Systems Constitutional: Negative for chills, fever and malaise/fatigue. Gastrointestinal: Positive for abdominal pain (pressure, suprapubic). Genitourinary: Positive for dysuria and frequency. Negative for flank pain, hematuria and urgency. Skin: Negative for rash. Neurological: Negative for headaches. Objective Physical Exam Constitutional: She is oriented to person, place, and time and well-developed, well-nourished, and in no distress. HENT: Head: Normocephalic and atraumatic. Eyes: Conjunctivae and EOM are normal. Pupils are equal, round, and reactive to light. Neck: Normal range of motion. Neck supple. Pulmonary/Chest: Effort normal. Abdominal: Soft. Bowel sounds are normal. She exhibits no abdominal bruit, no pulsatile midline mass and no mass. There is no hepatosplenomegaly. There is tenderness in the suprapubic area. There is no rigidity, no rebound, no guarding, no CVA tenderness, no tenderness at McBurney's point and negative House's sign. Neurological: She is alert and oriented to person, place, and time. Skin: Skin is warm. Psychiatric: Affect normal. Nursing note and vitals reviewed. Component Latest Ref Rng ANDamp; Units 12/27/2017 Glucose, Urine Neg mg/dL neg Bilirubin, Urine Neg neg Ketones, Urine Neg small Specific Eva, Ur 1.005 - 1.030 1.025 Hemoglobin/Blood,Ur Neg mod pH, Urine 4.5 - 8.0 5.0 Protein, Urine Neg mg/dL neg Urobilinogen, Urine Normal (ANDlt;1.1) EU norm Nitrites Neg neg Leukocytes Neg mod Color/Appearance comment: yellow/clear Quality Check yes/no Yes ASSESSMENT/PLAN: 1. Acute cystitis with hematuria - ICD9: 595.0, ICD10: N30.01 (primary diagnosis) -Avoid alcohol and caffeine as these are bladder irritants and may make symptoms worse. -You can take OTC AZO if needed for painful urination but not for longer then 2 days. -Urinate before and after intercourse. -Follow up with PCP or return to clinic if symptoms not improving in 3 days or if you develop any new (or worsening) symptoms such as fever, chills or back pain. - UA DIP B/O - URINE CULTURE - NITROFURANTOIN MONOHYDRATE ANDamp; MACROCRYSTAL 100 MG ORAL CAP 2. Urinary frequency - ICD9: 788.41, ICD10: R35.0 acute - UA positive for estefani esterase and hematuria - Send urine for culture - Patient education for prevention given - UA DIP B/O - URINE CULTURE 3. Feared condition not demonstrated - ICD9: V65.5, ICD10: Z71.1 Take fluconazole at onset of symptoms and repeat dose after complete antibiotic - FLUCONAZOLE 150 MG TABLET Diagnosis and treatment plan were discussed and questions were answered to the patient's satisfaction. Pt acknowledged understanding of concepts and follow up plan. Specific signs and symptoms that would indicate the need for higher level of care were discussed in detail warranting prompt ER evaluation. Yamilet Foley APRN.JESSICA Foley APRN.SHANI WATKINS 12/27/2017 2:48 PM Signed ASSESSMENT/PLAN: 1. Acute cystitis with hematuria - ICD9: 595.0, ICD10: N30.01 (primary diagnosis) -Avoid alcohol and caffeine as these are bladder irritants and may make symptoms worse. -You can take OTC AZO if needed for painful urination but not for longer then 2 days. -Urinate before and after intercourse. -Follow up with PCP or return to clinic if symptoms not improving in 3 days or if you develop any new (or worsening) symptoms such as fever, chills or back pain. - UA DIP B/O - URINE CULTURE - NITROFURANTOIN MONOHYDRATE ANDamp; MACROCRYSTAL 100 MG ORAL CAP 2. Urinary frequency - ICD9: 788.41, ICD10: R35.0 acute - UA positive for estefani esterase and hematuria - Send urine for culture - Patient education for prevention given - UA DIP B/O - URINE CULTURE 3. Feared condition not demonstrated - ICD9: V65.5, ICD10: Z71.1 Take fluconazole at onset of symptoms and repeat dose after complete antibiotic - FLUCONAZOLE 150 MG TABLET Referring Provider: SELF [200] Allergies As of Date: 12/27/2017 Noted Allergy Reaction CITALOPRAM 09/07/2017 14 - Other: See Comments Comments: Did not tolerate, ? Mental status changes DUST 09/08/2005 5 - Intolerance LIQUID BANDAGE (ENBUCRILATE) 12/27/2017 2 - Rash Comments: blisters and rash MOLD 09/08/2005 14 - Other: See Comments Comments: Intolerance; itchy throat, runny nose PNEUMOVAX 23 (PNEUMOCOCCAL 23-DAWIT*11/20/2013 7 - Swelling Comments: tongue swollen arm POLLEN 09/08/2005 5 - Intolerance PROPRANOLOL 01/25/2007 1 - Mental Status Change SMOKE 09/08/2005 5 - Intolerance TETRACYCLINE 09/08/2005 8 - GI Upset Comments: Abdominal pain/cramping Date Reviewed: 12/27/2017 Reviewed by: Kelley Martin Ma - Fully Assessed Reason for Visit: Urinary Frequency [1086] Cmt: pain with urination x 2 days Primary Visit Diagnosis:Acute cystitis with hematuria [N30.01] Other Visit Diagnoses:Urinary frequency [R35.0] Feared condition not demonstrated [Z71.1] Order(s):UA DIP B/O [[id number]] Order #: [id number] URINE CULTURE [SQURCUL] Order #: [id number] nitrofurantoin monohydrate and macrocrystal (MACROBID) 100 mg capsuleTake 1 capsule by mouth twice daily with meals for 7 days.Disp: 14 capsuleRfl: 0 fluconazole (DIFLUCAN) 150 mg tabletTake 1 tablet by mouth one time only for 1 dose. Repeat in 3 days as needed.Disp: 2 tabletRfl: 0 Prescriptions as of 12/27/2017 Sig: FLECAINIDE 50 MG TABLET Take 1.5 tablets by mouth twi* ESTRADIOL 0.025 MG/24 HR SEMI* 1 Patch every Tuesday and * TRAZODONE 50 MG TABLET Take 1 tablet by mouth daily * LORAZEPAM 0.5 MG TABLET Take 1 tablet by mouth three * Patient taking differently: Take 0.5 mg by mouth three ti* ALBUTEROL SULFATE HFA 90 MCG/* Inhale 2 Puffs as instructed * CETIRIZINE 10 MG TABLET Take 1 tablet by mouth once d* NITROFURANTOIN MONOHYDRATE AND * Take 1 capsule by mouth twice* FLUCONAZOLE 150 MG TABLET Take 1 tablet by mouth one ti* Problem List As Of Date 12/27/2017 Noted Resolved Asthma [J45.909] Abnormal involuntary movements(781.0) [R25.8, R*INVALID FOR*11/13/2015 ADJUSTMENT DISORDER WITH DEPRESSED MOOD [F43.21]INVALID FOR* Acute gastritis without mention of hemorrhage [*INVALID FOR*11/13/2015 ASCUS favor benign [R87.610] INVALID FOR*11/17/2011 CERVICAL HPV DNA POSITIVE [R87.810] INVALID FOR* ADD (Attention Deficit Disorder) [F98.8] INVALID FOR* Insomnia, unspecified [G47.00] INVALID FOR* More... 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 WPW (Zshqy-Kffytdvir-Assbw syndrome) [I45.6] Gastro-esophageal reflux disease without esopha*INVALID FOR* Chronic sinusitis, unspecified [J32.9] INVALID FOR* 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] INVALID FOR* Asymptomatic menopausal state [Z78.0] INVALID FOR* Anxiety disorder, unspecified [F41.9] INVALID FOR* Acquired absence of both cervix and uterus [Z90*INVALID FOR* Paroxysmal supraventricular tachycardia (HCC) [* Palpitations [R00.2] skilled nursing current use of antiarrhythmic drug [Z* More... Other instructions from your clinician: ASSESSMENT/PLAN: 1. Acute cystitis with hematuria - ICD9: 595.0, ICD10: N30.01 (primary diagnosis) -Avoid alcohol and caffeine as these are bladder irritants and may make symptoms worse. -You can take OTC AZO if needed for painful urination but not for longer then 2 days. -Urinate before and after intercourse. -Follow up with PCP or return to clinic if symptoms not improving in 3 days or if you develop any new (or worsening) symptoms such as fever, chills or back pain. - UA DIP B/O - URINE CULTURE - NITROFURANTOIN MONOHYDRATE AND MACROCRYSTAL 100 MG ORAL CAP 2. Urinary frequency - ICD9: 788.41, ICD10: R35.0 acute - UA positive for estefani esterase and hematuria - Send urine for culture - Patient education for prevention given - UA DIP B/O - URINE CULTURE 3. Feared condition not demonstrated - ICD9: V65.5, ICD10: Z71.1 Take fluconazole at onset of symptoms and repeat dose after complete antibiotic - FLUCONAZOLE 150 MG TABLET Prescriptions ordered this encounter Disp Refills Start End NITROFURANTOIN MONOHYDRATE AND MACROCR* 14 c* 0 12/27/2017 01/03/2018 Route: ORAL Sig: Take 1 capsule by mouth twice daily with meals for 7 days. FLUCONAZOLE 150 MG TABLET 2 ta* 0 12/27/2017 12/27/2017 Route: ORAL Sig: Take 1 tablet by mouth one time only for 1 dose. Repeat in 3 days as needed. Encounter Status:Closed by YAMILET FOLEY CNP on 12/27/17 HISTORY PHYSICAL Observed: 12/21/2017 Status: COMPLETED Source: [place] 7:31 PM CLINIC OTHER CAMPUS REPOSITORY [facility] ID: [id number] Author: Albina Luong Service: (none) Author Type: Physician Type: HANDP Filed: 12/21/2017 7:31 PM Note Text: PRIMARY CARE PHYSICIAN: Andrew Gonzalez MD [address] [address] REFERRING PHYSICIAN: Andrew Gonzalez MD [place] [id number] [address] [address] Patient Care Team: Andrew Gonzalez as PCP - General (Family Practice) Albina Luong as Specialty Retail Financial Analyst (Cardiology) CHIEF COMPLAINT: Evaluation for arrhythmia HISTORY OF PRESENT ILLNESS: Ms. Delacruz is a 52 year old female who presents today for evaluation of arrhythmia. She states that she recalls experiencing symptoms suggestive of arrhythmia since a very young age, possibly age 8 or 9 years. She recalls experiencing palpitation, fluttering in the chest, and racing heartbeats. 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 She never experienced syncope. At approximately one and a half years ago she took a medication for a cold, and this medication included a decongestant. She experienced severe palpitations and racing heartbeats. She was evaluated by her primary care physician, an EKG revealed WPW pattern. At some point she was referred to Dr. Mcknight at the [facility]. Her brother has WPW syndrome and was already a patient of Dr. Mcknight. In November 2016 she underwent EP study and attempted catheter ablation. She states the procedure was unsuccessful due to the location of the pathway. She was then treated with flecainide, and she states she did well for a short period of time with this medication. However, she began experiencing recurrence of the palpitations. She describes brief, momentary palpitations that she agrees might be extra beats. She also describes more prolonged episodes of palpitations associated with rapid or racing heartbeats lasting 5-10 minutes. She believes the triggers for the symptoms include stress, anxiety and also physical activities such as working out. She does not feel that the flecainide is adequately controlling her excessively bothersome symptoms. She presents for evaluation and specifically she is inquiring about whether she can undergo a repeat attempt at catheter ablation. She denies chest pain, orthopnea, cough, edema, PND, lightheadedness or syncope. 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; attempt at catheter ablation 11/2016 failed; she continues to experience intermittent palpitations and tachycardia despite treatment with flecainide PAST SURGICAL HISTORY Procedure Laterality Date - BLADDER SURGERY HX 11/2015 bladder sling - DELIVERY ONLY 85, 88,92 , low cervical X3 - ENLARGE BREAST WITH IMPLANT 11/2007 Breast augmentation - IUD 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 08/30/2007 Mirena - removed - OOPHORECTOMY, PART/TOTAL UNILAT/BILAT 2017 - REMOVE TONSILS/ADENOIDS,<12 Y/O 1968 - S PK LAVH [id number] 2013 lavh RICKY biltareal salpingectomy - SVT ABLATION W/ EP COMPLETE 11/24/2016 [facility], Dr. Mcknight; anteroseptal AP unable to be ablated despite cryoablation and RF ablation attempts; AP described as not having capability for extremely rapid antegrade conduction SOCIAL HISTORY Social History Substance Use Topics - Smoking status: Never Smoker - Smokeless tobacco: Never Used - Alcohol use Yes Comment: occasionally FAMILY HISTORY Problem Relation Age of Onset - Thyroid Mother goiter - Palpitations [OTHER] Mother - Asthma Father - Asthma Son - Palpitations [OTHER] Son - Thyroid Maternal Grandmother goiter - Other [OTHER] Maternal Grandfather young in MVA - Emphysema Paternal Grandmother - Heart Failure Paternal Grandmother - tobacco use [OTHER] Paternal Grandmother - Heart disease Paternal Grandfather had a heart attack and at young age - Stroke Paternal Grandfather - Prostate Cancer Paternal Grandfather - Asthma Daughter - Brain tumor [OTHER] Daughter benign - Seizures Brother - Heart Brother WPW syndrome; ablation unsuccessful -- too close to AV node - Other [OTHER] Other no unexplained sudden , crib deaths, unexplained syncope ALLERGIES: ALLERGIES Allergen Reactions - Citalopram Other: See Comments Did not tolerate, ? Mental status changes - Dust Intolerance - Mold Other: See Comments Intolerance; itchy throat, runny nose - Pneumovax 23 [Pneum* Swelling tongue swollen arm - Pollen Intolerance - Propranolol Mental Status Change - Smoke Intolerance - Tetracycline GI Upset Abdominal pain/cramping MEDICATIONS: estradiol (NOBLE, VIVELLE-DOT) 0.025 mg/24 hr 1 Patch every Tuesday and Tuesday. traZODone (DESYREL) 50 mg tablet Take 1 tablet by mouth daily at bedtime. LORazepam (ATIVAN) 0.5 mg tab Take 1 tablet by mouth three times daily as needed. flecainide (TAMBOCOR) 50 mg tablet Take 1 tablet by mouth twice daily. albuterol HFA (VENTOLIN HFA) 90 mcg/actuation inhaler Inhale 2 Puffs as instructed every 4 hours as needed for Wheezing/Shortness of Breath. cetirizine (ZYRTEC) 10 mg tablet Take 1 tablet by mouth once daily. REVIEW OF SYSTEMS: PAIN ASSESSMENT: Negative for pain, history of chronic pain, or current treatment for a chronic pain condition. GENERAL: Negative for: Weight loss or gain, Fever or Chills, Weakness and Sleep difficulties. HEENT: Negative for:Impaired Vision, Hearing Impairment, Nosebleeds, Bleeding Gums and Dentures NECK: Negative for: Swelling, Pain, Stiffness RESPIRATORY: Negative for: Cough, Blood in Sputum, Shortness of breath, Wheezing, Apnea GASTROINTESTINAL: Negative for: Trouble swallowing, Heartburn, Change in bowel habits, Blood in stool, Dark black stools MUSCULOSKELETAL: Negative for: Muscle or joint pain, stiffness, Joint swelling NEUROLOGIC/PSYCHIATRIC: Negative for: Weakness, Paralysis, Numbness, Tingling, Tremor, Nervousness or anxiety, Depressed mood, Memory loss SKIN: Negative for: Rash, Itching HEMATOLOGICAL/LYMPHATIC: Negative for: Easy bruising, Easy bleeding ENDOCRINE: Negative for: Heat or Cold Intolerance, Excessive Sweating, Frequent Urination, Frequent Thirst PHYSICAL EXAMINATION: BP 122/80 Pulse 74 Ht 5' 2 (1.58m) Wt 136 lb (61.7kg) SpO2 98% LMP 05/06/2014 BMI 24.87 kg/(m2). General: Well appearing, in no acute distress, speaking in complete sentences. Skin: No clubbing, no cyanosis. Eyes: Extra ocular movements intact, Non-icteric sclerae Neck: no jugular venous distention, Lungs: Clear to auscultation bilaterally, no wheezing or rhonchi. Heart: Regular rhythm, S1, S2 normal, no murmur Abdomen: Soft, nontender, bowel sounds normal Extremities: No peripheral edema . Grade 2/4 distal pulses bilaterally. Neuro: Oriented to person, place and time, alert, cooperative, gait coordinated. CARDIOVASCULAR MEDICINE TESTING: Electrocardiogram: Sinus rhythm 74 bpm; WPW pattern I have personally reviewed the Electrocardiogram. ASSESSMENT/PLAN: 1. WPW (Uncgy-Bwbvsljyq-Xunfc syndrome) - ICD9: 426.7, ICD10: I45.6 Symptomatic; recurrent symptoms despite previous attempt (unsuccessful) at catheter ablation of a right midseptal accessory pathway and subsequent treatment with flecainide 2. Paroxysmal supraventricular tachycardia (HCC) - ICD9: 427.0, ICD10: I47.1 Symptomatic; recurrent symptoms suggestive of SVT despite antiarrhythmic drug therapy after failed catheter ablation 11/2016 3. Palpitations - ICD9: 785.1, ICD10: R00.2 Brief momentary episodes possibly due to ectopic beats; prolonged episodes with tachycardia possibly due to SVT; cardiac monitoring would be helpful to correlate arrhythmia with symptoms 4. terminologist current use of antiarrhythmic drug - ICD9: V58.69, ICD10: Z79.899 Flecainide for symptomatic SVT after failed catheter ablation for WPW syndrome IMPRESSION: Ms. Delacruz has a history of WPW syndrome. has been experiencing recurrent and excessively bothersome symptoms indicative of arrhythmia despite treatment with antiarrhythmic drug flecainide after failed catheter ablation for WPW syndrome in November 2016. Cardiac monitoring would be helpful at this point to establish a symptom rhythm correlation. I suspect that the brief episodes of palpitation are likely banking representative of ectopic beats, but the longer episodes of palpitation with tachycardia are potentially recurrence of SVT. I had a detailed discussion with Ms. Delacruz regarding her arrhythmia condition and WPW syndrome. I reviewed the EP study and catheter ablation attempt procedure report from [facility] dated November 24, 2016. It appears that the EP study demonstrated the presence of an accessory pathway and localized it to the right mid septal region below the His bundle. Catheter cryoablation at this site was unsuccessful in spite of previous interruptions of accessory pathway conduction just with catheter manipulation. Radiofrequency catheter ablation was also attempted but was also unsuccessful. At that point further attempts were abandoned due to the proximity to the [place] conduction system. She was then treated with antiarrhythmic drug flecainide. I reviewed the treatment options at this point with Ms. Delacruz. One option would be to increase the flecainide dosage for example to 75 mg twice daily. This could be an attractive short-term strategy to alleviate her symptoms while we determine the longer term strategy. A good longer term strategy could be repeat catheter ablation attempt. There are several reasons to consider a repeat catheter ablation attempt, including the fact that with the previous catheter ablation procedure the initial ineffective ablation lesions might have created tissue edema that then precluded the success of the subsequent RF ablation lesions. Ms. Delacruz very much prefers to undergo another attempt at catheter ablation of this challenging accessory pathway. She expressed understanding that there is risk of irreversible damage to the [place] AV conduction system with additional attempts at catheter ablation, but that this risk could be kept to a minimum and still considered reasonably low overall. The procedure would require the use of computerized mapping and also potentially robotic catheter navigation. Cryoablation is an attractive type of catheter ablation in the region of the [place] AV conduction system, however this has already been demonstrated to be ineffective. Nevertheless, both types of catheter ablation technology will be available for the procedure. I also discussed with Ms. Delacruz that it might be best to have her under general anesthesia for this procedure that we will likely encompass several hours of time. She did express that she recalls not tolerating the moderate sedation very well and that they had difficulty keeping her comfortable during the procedure in [place]. I had a detailed discussion with Ms. Delacruz regarding my evaluation and recommendations. After our discussion, Ms. Delacruz expressed her understanding and I answered all her questions to her apparent satisfaction. She would like to proceed as outlined. INFORMED CONSENT The risks, benefits and anticipated outcomes of the procedure, the risks and benefits of the alternatives to the procedure and the roles and tasks of the personnel to be involved were discussed with the patient. Consent for the procedure and agreement to proceed has been obtained. I verify that I personally obtained the consent. I have signed a consent form and will have Ms. Delacruz sign it on the day of the procedure. Albina Luong MD 12/21/2017 PLAN AND RECOMMENDATIONS: 1) Cardiac monitorin-week ZioPatch monitor placed in the office today. This will help determine symptom-rhythm correlation. 2) Increase flecainide to 75 mg twice daily 3) Schedule repeat EP study with catheter ablation sometime after the two-week monitoring is completed. Return in about 6 weeks (around 02/01/2018) for EP study with catheter ablation; office will call to schedule. Albina Luong MD 12/21/2017 PROGRESS Observed: 12/21/2017 Status: COMPLETED Source: [place] 6:43 PM CLINIC OTHER CAMPUS REPOSITORY [facility] ID: [id number] Author: Albina Luong Service: (none) Author Type: Physician Type: Progress Notes Filed: 12/21/2017 7:31 PM Note Text: PRIMARY CARE PHYSICIAN: Andrew Gonzalez MD [place] [id number] [address] [address] REFERRING PHYSICIAN: Andrew Gonzalez MD [place] [id number] [address] Patient Care Team: Andrew Gonzalze as PCP - General (Family Practice) Albina Luong as Specialty Retail Financial Analyst (Cardiology) CHIEF COMPLAINT: Evaluation for arrhythmia HISTORY OF PRESENT ILLNESS: Ms. Dleacruz is a 52 year old female who presents today for evaluation of arrhythmia. She states that she recalls experiencing symptoms suggestive of arrhythmia since a very young age, possibly age 8 or 9 years. She recalls experiencing palpitation, fluttering in the chest, and racing heartbeats. 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 She never experienced syncope. At approximately one and a half years ago she took a medication for a cold, and this medication included a decongestant. She experienced severe palpitations and racing heartbeats. She was evaluated by her primary care physician, an EKG revealed WPW pattern. At some point she was referred to Dr. Mcknight at the [facility]. Her brother has WPW syndrome and was already a patient of Dr. Mcknight. In November 2016 she underwent EP study and attempted catheter ablation. She states the procedure was unsuccessful due to the location of the pathway. She was then treated with flecainide, and she states she did well for a short period of time with this medication. However, she began experiencing recurrence of the palpitations. She describes brief, momentary palpitations that she agrees might be extra beats. She also describes more prolonged episodes of palpitations associated with rapid or racing heartbeats lasting 5-10 minutes. She believes the triggers for the symptoms include stress, anxiety and also physical activities such as working out. She does not feel that the flecainide is adequately controlling her excessively bothersome symptoms. She presents for evaluation and specifically she is inquiring about whether she can undergo a repeat attempt at catheter ablation. She denies chest pain, orthopnea, cough, edema, PND, lightheadedness or syncope. PAST MEDICAL HISTORY Diagnosis Date - Allergic rhinitis due to other allergen - Encounter for insertion or removal of intrauterine contraceptive device 08/30/2007 Mirena, removed March 10 - terminologist current use of antiarrhythmic drug flecainide; indication: symptomatic PSVT with WPW syndrome - Other anxiety states - Palpitations - Paroxysmal supraventricular tachycardia (HCC) - Stress incontinence, female - Unspecified asthma(493.90) - WPW (Nrlpy-Hrvaiyklu-Xnpno syndrome) associated with symptomatic SVT; attempt at catheter ablation 11/2016 failed; she continues to experience intermittent palpitations and tachycardia despite treatment with flecainide PAST SURGICAL HISTORY Procedure Laterality Date - BLADDER SURGERY HX 11/2015 bladder sling - DELIVERY ONLY 85, 88,92 , low cervical X3 - ENLARGE BREAST WITH IMPLANT 11/2007 Breast augmentation - IUD 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 08/30/2007 Mirena - removed - OOPHORECTOMY, PART/TOTAL UNILAT/BILAT 2016 - REMOVE TONSILS/ADENOIDS,<12 Y/O 1968 - S PK LAVH [id number] 2013 lavh RICKY biltareal salpingectomy - SVT ABLATION W/ EP COMPLETE 11/24/2016 [facility], Dr. Mcknight; anteroseptal AP unable to be ablated despite cryoablation and RF ablation attempts; AP described as not having capability for extremely rapid antegrade conduction SOCIAL HISTORY Social History Substance Use Topics - Smoking status: Never Smoker - Smokeless tobacco: Never Used - Alcohol use Yes Comment: occasionally FAMILY HISTORY Problem Relation Age of Onset - Thyroid Mother goiter - Palpitations [OTHER] Mother - Asthma Father - Asthma Son - Palpitations [OTHER] Son - Thyroid Maternal Grandmother goiter - Other [OTHER] Maternal Grandfather young in MVA - Emphysema Paternal Grandmother - Heart Failure Paternal Grandmother - tobacco use [OTHER] Paternal Grandmother - Heart disease Paternal Grandfather had a heart attack and at young age - Stroke Paternal Grandfather - Prostate Cancer Paternal Grandfather - Asthma Daughter - Brain tumor [OTHER] Daughter benign - Seizures Brother - Heart Brother WPW syndrome; ablation unsuccessful -- too close to AV node - Other [OTHER] Other no unexplained sudden , crib deaths, unexplained syncope ALLERGIES: ALLERGIES Allergen Reactions - Citalopram Other: See Comments Did not tolerate, ? Mental status changes - Dust Intolerance - Mold Other: See Comments Intolerance; itchy throat, runny nose - Pneumovax 23 [Pneum* Swelling tongue swollen arm - Pollen Intolerance - Propranolol Mental Status Change - Smoke Intolerance - Tetracycline GI Upset Abdominal pain/cramping MEDICATIONS: estradiol (NOBLE, VIVELLE-DOT) 0.025 mg/24 hr 1 Patch every Tuesday and Tuesday. traZODone (DESYREL) 50 mg tablet Take 1 tablet by mouth daily at bedtime. LORazepam (ATIVAN) 0.5 mg tab Take 1 tablet by mouth three times daily as needed. flecainide (TAMBOCOR) 50 mg tablet Take 1 tablet by mouth twice daily. albuterol HFA (VENTOLIN HFA) 90 mcg/actuation inhaler Inhale 2 Puffs as instructed every 4 hours as needed for Wheezing/Shortness of Breath. cetirizine (ZYRTEC) 10 mg tablet Take 1 tablet by mouth once daily. REVIEW OF SYSTEMS: PAIN ASSESSMENT: Negative for pain, history of chronic pain, or current treatment for a chronic pain condition. GENERAL: Negative for: Weight loss or gain, Fever or Chills, Weakness and Sleep difficulties. HEENT: Negative for:Impaired Vision, Hearing Impairment, Nosebleeds, Bleeding Gums and Dentures NECK: Negative for: Swelling, Pain, Stiffness RESPIRATORY: Negative for: Cough, Blood in Sputum, Shortness of breath, Wheezing, Apnea GASTROINTESTINAL: Negative for: Trouble swallowing, Heartburn, Change in bowel habits, Blood in stool, Dark black stools MUSCULOSKELETAL: Negative for: Muscle or joint pain, stiffness, Joint swelling NEUROLOGIC/PSYCHIATRIC: Negative for: Weakness, Paralysis, Numbness, Tingling, Tremor, Nervousness or anxiety, Depressed mood, Memory loss SKIN: Negative for: Rash, Itching HEMATOLOGICAL/LYMPHATIC: Negative for: Easy bruising, Easy bleeding ENDOCRINE: Negative for: Heat or Cold Intolerance, Excessive Sweating, Frequent Urination, Frequent Thirst PHYSICAL EXAMINATION: BP 122/80 Pulse 74 Ht 5' 2 (1.58m) Wt 136 lb (61.7kg) SpO2 98% LMP 05/06/2014 BMI 24.87 kg/(m2). General: Well appearing, in no acute distress, speaking in complete sentences. Skin: No clubbing, no cyanosis. Eyes: Extra ocular movements intact, Non-icteric sclerae Neck: no jugular venous distention, Lungs: Clear to auscultation bilaterally, no wheezing or rhonchi. Heart: Regular rhythm, S1, S2 normal, no murmur Abdomen: Soft, nontender, bowel sounds normal Extremities: No peripheral edema . Grade 2/4 distal pulses bilaterally. Neuro: Oriented to person, place and time, alert, cooperative, gait coordinated. CARDIOVASCULAR MEDICINE TESTING: Electrocardiogram: Sinus rhythm 74 bpm; WPW pattern I have personally reviewed the Electrocardiogram. ASSESSMENT/PLAN: 1. WPW (Ukwui-Plfhxhodn-Sgmje syndrome) - ICD9: 426.7, ICD10: I45.6 Symptomatic; recurrent symptoms despite previous attempt (unsuccessful) at catheter ablation of a right midseptal accessory pathway and subsequent treatment with flecainide 2. Paroxysmal supraventricular tachycardia (HCC) - ICD9: 427.0, ICD10: I47.1 Symptomatic; recurrent symptoms suggestive of SVT despite antiarrhythmic drug therapy after failed catheter ablation 11/2016 3. Palpitations - ICD9: 785.1, ICD10: R00.2 Brief momentary episodes possibly due to ectopic beats; prolonged episodes with tachycardia possibly due to SVT; cardiac monitoring would be helpful to correlate arrhythmia with symptoms 4. 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 has been experiencing recurrent and excessively bothersome symptoms indicative of arrhythmia despite treatment with antiarrhythmic drug flecainide after failed catheter ablation for WPW syndrome in November 2016. Cardiac monitoring would be helpful at this point to establish a symptom rhythm correlation. I suspect that the brief episodes of palpitation are likely banking representative of ectopic beats, but the longer episodes of palpitation with tachycardia are potentially recurrence of SVT. I had a detailed discussion with Ms. Delacruz regarding her arrhythmia condition and WPW syndrome. I reviewed the EP study and catheter ablation attempt procedure report from [facility] dated November 24, 2016. It appears that the EP study demonstrated the presence of an accessory pathway and localized it to the right mid septal region below the His bundle. Catheter cryoablation at this site was unsuccessful in spite of previous interruptions of accessory pathway conduction just with catheter manipulation. Radiofrequency catheter ablation was also attempted but was also unsuccessful. At that point further attempts were abandoned due to the proximity to the [place] conduction system. She was then treated with antiarrhythmic drug flecainide. I reviewed the treatment options at this point with Ms. Delacruz. One option would be to increase the flecainide dosage for example to 75 mg twice daily. This could be an attractive short-term strategy to alleviate her symptoms while we determine the longer term strategy. A good longer term strategy could be repeat catheter ablation attempt. There are several reasons to consider a repeat catheter ablation attempt, including the fact that with the previous catheter ablation procedure the initial ineffective ablation lesions might have created tissue edema that then precluded the success of the subsequent RF ablation lesions. Ms. Delacruz very much prefers to undergo another attempt at catheter ablation of this challenging accessory pathway. She expressed understanding that there is risk of irreversible damage to the [place] AV conduction system with additional attempts at catheter ablation, but that this risk could be kept to a minimum and still considered reasonably low overall. The procedure would require the use of computerized mapping and also potentially robotic catheter navigation. Cryoablation is an attractive type of catheter ablation in the region of the [place] AV conduction system, however this has already been demonstrated to be ineffective. Nevertheless, both types of catheter ablation technology will be available for the procedure. I also discussed with Ms. Delacruz that it might be best to have her under general anesthesia for this procedure that we will likely encompass several hours of time. She did express that she recalls not tolerating the moderate sedation very well and that they had difficulty keeping her comfortable during the procedure in [place]. I had a detailed discussion with Ms. Delacruz regarding my evaluation and recommendations. After our discussion, Ms. Delacruz expressed her understanding and I answered all her questions to her apparent satisfaction. She would like to proceed as outlined. INFORMED CONSENT The risks, benefits and anticipated outcomes of the procedure, the risks and benefits of the alternatives to the procedure and the roles and tasks of the personnel to be involved were discussed with the patient. Consent for the procedure and agreement to proceed has been obtained. I verify that I personally obtained the consent. I have signed a consent form and will have Ms. Delacruz sign it on the day of the procedure. Albina Luong MD 12/21/2017 PLAN AND RECOMMENDATIONS: 1) Cardiac monitorin-week ZioPatch monitor placed in the office today. This will help determine symptom-rhythm correlation. 2) Increase flecainide to 75 mg twice daily 3) Schedule repeat EP study with catheter ablation sometime after the two-week monitoring is completed. Return in about 6 weeks (around 02/01/2018) for EP study with catheter ablation; office will call to schedule. Albina Luong MD 12/21/2017 CNOV Observed: 12/21/2017 Status: COMPLETED Source: [facility] 1:30 PM [facility] REPOSITORY Office Visit (AGCARDPHRA) NICKI DELACRUZ ([id number]) 1965 F NFR Date Time Provider Department 12/21/17 1:30 PM ALBINA LUONG During your visit today, we recorded the following information about you: Pulse Blood pressure Weight Height 74/minute 122/80 61.7 kg 1.575 m Martha Whitaker LPN 12/21/2017 1:46 PM Signed Ms. Delacruz notes ANDquot;fluttering heavy feelingANDquot; in her chest about once a week which lasts at the most 5 or 10 minutes. YOANNA Young MD 12/21/2017 6:42 PM Signed Heart Rhythm Problem (Arrhythmia) What is arrhythmia? Arrhythmia is an abnormal rhythm of your heartbeat. Your heart may beat faster or more slowly than normal, or it may skip beats. This can make it harder for the heart to pump enough blood to your body. Another term for arrhythmia is dysrhythmia. What is the cause? An electrical signal in your heart starts each heartbeat, causing the heart muscle to squeeze (contract). Normally, this signal starts in the upper right chamber of the heart (the right atrium) at a place called the sinus node. The signal then follows normal pathways to the upper left atrium and to the lower chambers of the heart (the ventricles). You may have an abnormal heart rhythm if the electrical signals don?t follow the normal pathways or the nerve cells that make the electrical signals don?t work right. Common causes of heart rhythm problems are conditions that damage the heart, like coronary artery disease, heart attack, or heart failure. Problems with the heart valves are another common cause. The heart has 4 valves that open and close with each heartbeat to help blood flow in the right direction through the heart. Some other causes of heart rhythm problems include: -Health problems, such as a stroke, lung disease, diabetes, overactive thyroid gland, or high blood pressure -Abuse of alcohol or drugs, such as cocaine -Some medicines, such as cold medicines -Some natural remedies, such as ephedra, guarana, and licorice Exercise or emotional stress can make your heart beat faster or skip beats, but this is usually not a cause for concern. Sometimes no cause for arrhythmia can be found. What are the different types of arrhythmia? There are many different types of arrhythmia. The heart may beat very slowly (bradycardia) or very fast (tachycardia). The abnormal rhythm may start in either the upper or the lower heart chambers. The 2 main types of arrhythmia are: -Atrial arrhythmia: The electrical signals don?t start in the normal place in the right atrium and don?t travel normally. This can cause part or all of the heart to beat very fast and not in a normal pattern. This affects the ability of the heart to pump blood to the rest of the body. -Ventricular arrhythmia: The abnormal rhythm starts in the lower chambers of the heart. The heart beats in a rhythm that may be irregular or very fast. If severe and untreated, it can be life-threatening. What are the symptoms? Some arrhythmias do not cause any symptoms, or the symptoms may come and go. Your body may simply adjust to the change in rhythm over time. When you do have symptoms, they may include: -Feeling like your heart is beating too fast or too hard or skipping beats or fluttering -Feeling dizzy or lightheaded -Fainting -Feeling tired or weak -Chest pain -Shortness of breath How is it diagnosed? Your healthcare provider will ask about your symptoms and medical history and examine your heart and lungs. Tests may include: -An ECG (also called an EKG), which measures and records your heartbeat. You may have an ECG while you are resting or while you exercise on a treadmill. You may also be asked to wear a small portable ECG monitor for a few days or sometimes a couple weeks. -Blood tests -Chest X-ray -An echocardiogram, which uses sound waves (ultrasound) to show the structures of the heart and how well the heart muscle is pumping -An angiogram, which uses dye injected into a vein and X-rays to look for narrowing or blockages of blood vessels -An electrophysiology study (EPS), which uses tiny wires put into your heart through your veins to look at the electrical pathways in your heart How is it treated? The goal of treatment is to help the heart keep a normal rhythm. The right treatment for you depends on the cause of the arrhythmia, how often you have symptoms, and the severity of your symptoms. If you have no symptoms, or your symptoms are fairly mild, you may not need treatment. If a health problem like a leaky heart valve or heart failure is causing the arrhythmia, treating the health problem may also treat the arrhythmia. Other possible treatments are: -Medicine to control the heart rate -Surgery to: ?Make small cuts or scars in the heart that will block abnormal electrical pathways (cardiac ablation) ?Put an electronic device, such as a pacemaker, under the skin in your chest to help control the heartbeat ?Improve blood flow to the heart if you have coronary artery disease (bypass surgery) How can I take care of myself? Follow your healthcare provider's instructions. Ask your provider: -How and when you will hear your test results -How long it will take to recover -What activities you should avoid and when you can return to your normal activities -How to take care of yourself at home -What symptoms or problems you should watch for and what to do if you have them Make sure you know when you should come back for a checkup. How can I help prevent arrhythmia? The best prevention is to have a heart-healthy lifestyle: -Keep a healthy weight. -Eat a healthy diet. -Stay fit with the right kind of exercise for you. -Decrease stress. -Don?t smoke. -Limit your use of alcohol. Let your healthcare provider know if you have a family history of arrhythmia. If you have heart disease or high blood pressure, follow your healthcare provider's instructions for treatment. Developed by [employer]. Published by [employer]. Copyright ?2014 [employer] and/or one of its subsidiaries. All rights reserved. Albina Luong MD 12/21/2017 7:31 PM Addendum PRIMARY CARE PHYSICIAN: Andrew Gonzalez MD [place] [id number] [place] [address] REFERRING PHYSICIAN: Andrew Gonzalez MD [place] [id number] [address] Patient Care Team: Andrew Gonzalez as PCP - General (Family Practice) Albina Luong as Specialty Retail Financial Analyst (Cardiology) CHIEF COMPLAINT: Evaluation for arrhythmia HISTORY OF PRESENT ILLNESS: Ms. Delacruz is a 52 year old female who presents today for evaluation of arrhythmia. She states that she recalls experiencing symptoms suggestive of arrhythmia since a very young age, possibly age 8 or 9 years. She recalls experiencing palpitation, ANDquot;flutteringANDquot; in the chest, and racing heartbeats. 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 She never experienced syncope. At approximately one and a half years ago she took a medication for a cold, and this medication included a decongestant. She experienced severe palpitations and racing heartbeats. She was evaluated by her primary care physician, an EKG revealed WPW pattern. At some point she was referred to Dr. Mcknight at the [facility]. Her brother has WPW syndrome and was already a patient of Dr. Mcknight. In November 2016 she underwent EP study and attempted catheter ablation. She states the procedure was unsuccessful due to the location of the pathway. She was then treated with flecainide, and she states she did well for a short period of time with this medication. However, she began experiencing recurrence of the palpitations. She describes brief, momentary palpitations that she agrees might be ANDquot;extra beats.ANDquot; She also describes more prolonged episodes of palpitations associated with rapid or racing heartbeats lasting 5-10 minutes. She believes the triggers for the symptoms include stress, anxiety and also physical activities such as working out. She does not feel that the flecainide is adequately controlling her excessively bothersome symptoms. She presents for evaluation and specifically she is inquiring about whether she can undergo a repeat attempt at catheter ablation. She denies chest pain, orthopnea, cough, edema, PND, lightheadedness or syncope. 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; attempt at catheter ablation 11/2016 failed; she continues to experience intermittent palpitations and tachycardia despite treatment with flecainide PAST SURGICAL HISTORY Procedure Laterality Date - BLADDER SURGERY HX 11/2015 bladder sling - DELIVERY ONLY 85, 88,92 , low cervical X3 - ENLARGE BREAST WITH IMPLANT 11/2007 Breast augmentation - IUD 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 08/30/2007 Mirena - removed - OOPHORECTOMY, PART/TOTAL UNILAT/BILAT 2016 - REMOVE TONSILS/ADENOIDS,ANDlt;13 Y/O 1967 - S PK LAVH [id number] 2013 lavh RICKY biltareal salpingectomy - SVT ABLATION W/ EP COMPLETE 11/24/2016 [facility], Dr. Mcknight; anteroseptal AP unable to be ablated despite cryoablation and RF ablation attempts; AP described as not having capability for extremely rapid antegrade conduction SOCIAL HISTORY Social History Substance Use Topics - Smoking status: Never Smoker - Smokeless tobacco: Never Used - Alcohol use Yes Comment: occasionally FAMILY HISTORY Problem Relation Age of Onset - Thyroid Mother goiter - Palpitations [OTHER] Mother - Asthma Father - Asthma Son - Palpitations [OTHER] Son - Thyroid Maternal Grandmother goiter - Other [OTHER] Maternal Grandfather young in MVA - Emphysema Paternal Grandmother - Heart Failure Paternal Grandmother - tobacco use [OTHER] Paternal Grandmother - Heart disease Paternal Grandfather had a heart attack and at young age - Stroke Paternal Grandfather - Prostate Cancer Paternal Grandfather - Asthma Daughter - Brain tumor [OTHER] Daughter benign - Seizures Brother - Heart Brother WPW syndrome; ablation unsuccessful -- too close to AV node - Other [OTHER] Other no unexplained sudden , crib deaths, unexplained syncope ALLERGIES: ALLERGIES Allergen Reactions - Citalopram Other: See Comments Did not tolerate, ? Mental status changes - Dust Intolerance - Mold Other: See Comments Intolerance; itchy throat, runny nose - Pneumovax 23 [Pneum* Swelling tongue swollen arm - Pollen Intolerance - Propranolol Mental Status Change - Smoke Intolerance - Tetracycline GI Upset Abdominal pain/cramping MEDICATIONS: estradiol (NOBLE, VIVELLE-DOT) 0.025 mg/24 hr 1 Patch every Tuesday and Tuesday. traZODone (DESYREL) 50 mg tablet Take 1 tablet by mouth daily at bedtime. LORazepam (ATIVAN) 0.5 mg tab Take 1 tablet by mouth three times daily as needed. flecainide (TAMBOCOR) 50 mg tablet Take 1 tablet by mouth twice daily. albuterol HFA (VENTOLIN HFA) 90 mcg/actuation inhaler Inhale 2 Puffs as instructed every 4 hours as needed for Wheezing/Shortness of Breath. cetirizine (ZYRTEC) 10 mg tablet Take 1 tablet by mouth once daily. REVIEW OF SYSTEMS: PAIN ASSESSMENT: Negative for pain, history of chronic pain, or current treatment for a chronic pain condition. GENERAL: Negative for: Weight loss or gain, Fever or Chills, Weakness and Sleep difficulties. HEENT: Negative for:Impaired Vision, Hearing Impairment, Nosebleeds, Bleeding Gums and Dentures NECK: Negative for: Swelling, Pain, Stiffness RESPIRATORY: Negative for: Cough, Blood in Sputum, Shortness of breath, Wheezing, Apnea GASTROINTESTINAL: Negative for: Trouble swallowing, Heartburn, Change in bowel habits, Blood in stool, Dark black stools MUSCULOSKELETAL: Negative for: Muscle or joint pain, stiffness, Joint swelling NEUROLOGIC/PSYCHIATRIC: Negative for: Weakness, Paralysis, Numbness, Tingling, Tremor, Nervousness or anxiety, Depressed mood, Memory loss SKIN: Negative for: Rash, Itching HEMATOLOGICAL/LYMPHATIC: Negative for: Easy bruising, Easy bleeding ENDOCRINE: Negative for: Heat or Cold Intolerance, Excessive Sweating, Frequent Urination, Frequent Thirst PHYSICAL EXAMINATION: BP 122/80 Pulse 74 Ht 5' 2ANDquot; (1.58m) Wt 136 lb (61.7kg) SpO2 98% LMP 05/06/2014 BMI 24.87 kg/(m2). General: Well appearing, in no acute distress, speaking in complete sentences. Skin: No clubbing, no cyanosis. Eyes: Extra ocular movements intact, Non-icteric sclerae Neck: no jugular venous distention, Lungs: Clear to auscultation bilaterally, no wheezing or rhonchi. Heart: Regular rhythm, S1, S2 normal, no murmur Abdomen: Soft, nontender, bowel sounds normal Extremities: No peripheral edema . Grade 2/4 distal pulses bilaterally. Neuro: Oriented to person, place and time, alert, cooperative, gait coordinated. CARDIOVASCULAR MEDICINE TESTING: Electrocardiogram: Sinus rhythm 74 bpm; WPW pattern I have personally reviewed the Electrocardiogram. ASSESSMENT/PLAN: 1. WPW (Klazu-Dmnyvyxra-Hzoap syndrome) - ICD9: 426.7, ICD10: I45.6 Symptomatic; recurrent symptoms despite previous attempt (unsuccessful) at catheter ablation of a right midseptal accessory pathway and subsequent treatment with flecainide 2. Paroxysmal supraventricular tachycardia (HCC) - ICD9: 427.0, ICD10: I47.1 Symptomatic; recurrent symptoms suggestive of SVT despite antiarrhythmic drug therapy after failed catheter ablation 11/2016 3. Palpitations - ICD9: 785.1, ICD10: R00.2 Brief momentary episodes possibly due to ectopic beats; prolonged episodes with tachycardia possibly due to SVT; cardiac monitoring would be helpful to correlate arrhythmia with symptoms 4. terminologist current use of antiarrhythmic drug - ICD9: V58.69, ICD10: Z79.899 Flecainide for symptomatic SVT after failed catheter ablation for WPW syndrome IMPRESSION: Ms. Delacruz has a history of WPW syndrome. has been experiencing recurrent and excessively bothersome symptoms indicative of arrhythmia despite treatment with antiarrhythmic drug flecainide after failed catheter ablation for WPW syndrome in November 2016. Cardiac monitoring would be helpful at this point to establish a symptom rhythm correlation. I suspect that the brief episodes of palpitation are likely banking representative of ectopic beats, but the longer episodes of palpitation with tachycardia are potentially recurrence of SVT. I had a detailed discussion with Ms. Delacruz regarding her arrhythmia condition and WPW syndrome. I reviewed the EP study and catheter ablation attempt procedure report from [facility] dated November 24, 2016. It appears that the EP study demonstrated the presence of an accessory pathway and localized it to the right mid septal region below the His bundle. Catheter cryoablation at this site was unsuccessful in spite of previous interruptions of accessory pathway conduction just with catheter manipulation. Radiofrequency catheter ablation was also attempted but was also unsuccessful. At that point further attempts were abandoned due to the proximity to the [place] conduction system. She was then treated with antiarrhythmic drug flecainide. I reviewed the treatment options at this point with Ms. Delacruz. One option would be to increase the flecainide dosage for example to 75 mg twice daily. This could be an attractive short-term strategy to alleviate her symptoms while we determine the longer term strategy. A good longer term strategy could be repeat catheter ablation attempt. There are several reasons to consider a repeat catheter ablation attempt, including the fact that with the previous catheter ablation procedure the initial ineffective ablation lesions might have created tissue edema that then precluded the success of the subsequent RF ablation lesions. Ms. Delacruz very much prefers to undergo another attempt at catheter ablation of this challenging accessory pathway. She expressed understanding that there is risk of irreversible damage to the [place] AV conduction system with additional attempts at catheter ablation, but that this risk could be kept to a minimum and still considered reasonably low overall. The procedure would require the use of computerized mapping and also potentially robotic catheter navigation. Cryoablation is an attractive type of catheter ablation in the region of the [place] AV conduction system, however this has already been demonstrated to be ineffective. Nevertheless, both types of catheter ablation technology will be available for the procedure. I also discussed with Ms. Delacruz that it might be best to have her under general anesthesia for this procedure that we will likely encompass several hours of time. She did express that she recalls not tolerating the moderate sedation very well and that they had difficulty keeping her comfortable during the procedure in [place]. I had a detailed discussion with Ms. Delacruz regarding my evaluation and recommendations. After our discussion, Ms. Delacruz expressed her understanding and I answered all her questions to her apparent satisfaction. She would like to proceed as outlined. INFORMED CONSENT The risks, benefits and anticipated outcomes of the procedure, the risks and benefits of the alternatives to the procedure and the roles and tasks of the personnel to be involved were discussed with the patient. Consent for the procedure and agreement to proceed has been obtained. I verify that I personally obtained the consent. I have signed a consent form and will have Ms. Delacruz sign it on the day of the procedure. Albina Luong MD 12/21/2017 PLAN AND RECOMMENDATIONS: 1) Cardiac monitorin-week ZioPatch monitor placed in the office today. This will help determine symptom-rhythm correlation. 2) Increase flecainide to 75 mg twice daily 3) Schedule repeat EP study with catheter ablation sometime after the two-week monitoring is completed. Return in about 6 weeks (around 02/01/2018) for EP study with catheter ablation; office will call to schedule. Albina Luong MD 12/21/2017 Albina Luong MD 12/21/2017 7:31 PM Signed PRIMARY CARE PHYSICIAN: [place] [address] REFERRING PHYSICIAN: Andrew Gonzalez MD [place] [id number] Patient Care Team: Andrew Gonzalez as PCP - General (Family Practice) Albina Luong as Specialty Retail Financial Analyst (Cardiology) CHIEF COMPLAINT: Evaluation for arrhythmia HISTORY OF PRESENT ILLNESS: Ms. Delacruz is a 52 year old female who presents today for evaluation of arrhythmia. She states that she recalls experiencing symptoms suggestive of arrhythmia since a very young age, possibly age 8 or 9 years. She recalls experiencing palpitation, ANDquot;flutteringANDquot; in the chest, and racing heartbeats. 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 She never experienced syncope. At approximately one and a half years ago she took a medication for a cold, and this medication included a decongestant. She experienced severe palpitations and racing heartbeats. She was evaluated by her primary care physician, an EKG revealed WPW pattern. At some point she was referred to Dr. Mcknight at the [facility]. Her brother has WPW syndrome and was already a patient of Dr. Mcknight. In November 2016 she underwent EP study and attempted catheter ablation. She states the procedure was unsuccessful due to the location of the pathway. She was then treated with flecainide, and she states she did well for a short period of time with this medication. However, she began experiencing recurrence of the palpitations. She describes brief, momentary palpitations that she agrees might be ANDquot;extra beats.ANDquot; She also describes more prolonged episodes of palpitations associated with rapid or racing heartbeats lasting 5-10 minutes. She believes the triggers for the symptoms include stress, anxiety and also physical activities such as working out. She does not feel that the flecainide is adequately controlling her excessively bothersome symptoms. She presents for evaluation and specifically she is inquiring about whether she can undergo a repeat attempt at catheter ablation. She denies chest pain, orthopnea, cough, edema, PND, lightheadedness or syncope. PAST MEDICAL HISTORY Diagnosis Date - Allergic rhinitis due to other allergen - Encounter for insertion or removal of intrauterine contraceptive device 08/30/2007 Mirena, removed March 10 - skilled nursing current use of antiarrhythmic drug flecainide; indication: symptomatic PSVT with WPW syndrome - Other anxiety states - Palpitations - Paroxysmal supraventricular tachycardia (HCC) - Stress incontinence, female - Unspecified asthma(493.90) - WPW (Obmoq-Wwdlabfmd-Aznea syndrome) associated with symptomatic SVT; attempt at catheter ablation 11/2016 failed; she continues to experience intermittent palpitations and tachycardia despite treatment with flecainide PAST SURGICAL HISTORY Procedure Laterality Date - BLADDER SURGERY HX 11/2015 bladder sling - DELIVERY ONLY 85, 88,92 , low cervical X3 - ENLARGE BREAST WITH IMPLANT 11/2007 Breast augmentation - IUD 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 08/30/2007 Mirena - removed - OOPHORECTOMY, PART/TOTAL UNILAT/BILAT 2016 - REMOVE TONSILS/ADENOIDS,ANDlt;13 Y/O 1968 - S PK LAVH [id number] 2013 lavh RICKY biltareal salpingectomy - SVT ABLATION W/ EP COMPLETE 11/24/2016 [facility], Dr. Mcknight; anteroseptal AP unable to be ablated despite cryoablation and RF ablation attempts; AP described as not having capability for extremely rapid antegrade conduction SOCIAL HISTORY Social History Substance Use Topics - Smoking status: Never Smoker - Smokeless tobacco: Never Used - Alcohol use Yes Comment: occasionally FAMILY HISTORY Problem Relation Age of Onset - Thyroid Mother goiter - Palpitations [OTHER] Mother - Asthma Father - Asthma Son - Palpitations [OTHER] Son - Thyroid Maternal Grandmother goiter - Other [OTHER] Maternal Grandfather young in MVA - Emphysema Paternal Grandmother - Heart Failure Paternal Grandmother - tobacco use [OTHER] Paternal Grandmother - Heart disease Paternal Grandfather had a heart attack and at young age - Stroke Paternal Grandfather - Prostate Cancer Paternal Grandfather - Asthma Daughter - Brain tumor [OTHER] Daughter benign - Seizures Brother - Heart Brother WPW syndrome; ablation unsuccessful -- too close to AV node - Other [OTHER] Other no unexplained sudden , crib deaths, unexplained syncope ALLERGIES: ALLERGIES Allergen Reactions - Citalopram Other: See Comments Did not tolerate, ? Mental status changes - Dust Intolerance - Mold Other: See Comments Intolerance; itchy throat, runny nose - Pneumovax 23 [Pneum* Swelling tongue swollen arm - Pollen Intolerance - Propranolol Mental Status Change - Smoke Intolerance - Tetracycline GI Upset Abdominal pain/cramping MEDICATIONS: estradiol (NOBLE, VIVELLE-DOT) 0.025 mg/24 hr 1 Patch every Tuesday and Tuesday. traZODone (DESYREL) 50 mg tablet Take 1 tablet by mouth daily at bedtime. LORazepam (ATIVAN) 0.5 mg tab Take 1 tablet by mouth three times daily as needed. flecainide (TAMBOCOR) 50 mg tablet Take 1 tablet by mouth twice daily. albuterol HFA (VENTOLIN HFA) 90 mcg/actuation inhaler Inhale 2 Puffs as instructed every 4 hours as needed for Wheezing/Shortness of Breath. cetirizine (ZYRTEC) 10 mg tablet Take 1 tablet by mouth once daily. REVIEW OF SYSTEMS: PAIN ASSESSMENT: Negative for pain, history of chronic pain, or current treatment for a chronic pain condition. GENERAL: Negative for: Weight loss or gain, Fever or Chills, Weakness and Sleep difficulties. HEENT: Negative for:Impaired Vision, Hearing Impairment, Nosebleeds, Bleeding Gums and Dentures NECK: Negative for: Swelling, Pain, Stiffness RESPIRATORY: Negative for: Cough, Blood in Sputum, Shortness of breath, Wheezing, Apnea GASTROINTESTINAL: Negative for: Trouble swallowing, Heartburn, Change in bowel habits, Blood in stool, Dark black stools MUSCULOSKELETAL: Negative for: Muscle or joint pain, stiffness, Joint swelling NEUROLOGIC/PSYCHIATRIC: Negative for: Weakness, Paralysis, Numbness, Tingling, Tremor, Nervousness or anxiety, Depressed mood, Memory loss SKIN: Negative for: Rash, Itching HEMATOLOGICAL/LYMPHATIC: Negative for: Easy bruising, Easy bleeding ENDOCRINE: Negative for: Heat or Cold Intolerance, Excessive Sweating, Frequent Urination, Frequent Thirst PHYSICAL EXAMINATION: BP 122/80 Pulse 74 Ht 5' 2ANDquot; (1.58m) Wt 136 lb (61.7kg) SpO2 98% LMP 05/06/2014 BMI 24.87 kg/(m2). General: Well appearing, in no acute distress, speaking in complete sentences. Skin: No clubbing, no cyanosis. Eyes: Extra ocular movements intact, Non-icteric sclerae Neck: no jugular venous distention, Lungs: Clear to auscultation bilaterally, no wheezing or rhonchi. Heart: Regular rhythm, S1, S2 normal, no murmur Abdomen: Soft, nontender, bowel sounds normal Extremities: No peripheral edema . Grade 2/4 distal pulses bilaterally. Neuro: Oriented to person, place and time, alert, cooperative, gait coordinated. CARDIOVASCULAR MEDICINE TESTING: Electrocardiogram: Sinus rhythm 74 bpm; WPW pattern I have personally reviewed the Electrocardiogram. ASSESSMENT/PLAN: 1. 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 Paroxysmal supraventricular tachycardia (HCC) - ICD9: 427.0, ICD10: I47.1 Symptomatic; recurrent symptoms suggestive of SVT despite antiarrhythmic drug therapy after failed catheter ablation 11/2016 3. Palpitations - ICD9: 785.1, ICD10: R00.2 Brief momentary episodes possibly due to ectopic beats; prolonged episodes with tachycardia possibly due to SVT; cardiac monitoring would be helpful to correlate arrhythmia with symptoms 4. 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 has been experiencing recurrent and excessively bothersome symptoms indicative of arrhythmia despite treatment with antiarrhythmic drug flecainide after failed catheter ablation for WPW syndrome in November 2016. Cardiac monitoring would be helpful at this point to establish a symptom rhythm correlation. I suspect that the brief episodes of palpitation are likely banking representative of ectopic beats, but the longer episodes of palpitation with tachycardia are potentially recurrence of SVT. I had a detailed discussion with Ms. Delacruz regarding her arrhythmia condition and WPW syndrome. I reviewed the EP study and catheter ablation attempt procedure report from [facility] dated November 24, 2016. It appears that the EP study demonstrated the presence of an accessory pathway and localized it to the right mid septal region below the His bundle. Catheter cryoablation at this site was unsuccessful in spite of previous interruptions of accessory pathway conduction just with catheter manipulation. Radiofrequency catheter ablation was also attempted but was also unsuccessful. At that point further attempts were abandoned due to the proximity to the [place] conduction system. She was then treated with antiarrhythmic drug flecainide. I reviewed the treatment options at this point with Ms. Delacruz. One option would be to increase the flecainide dosage for example to 75 mg twice daily. This could be an attractive short-term strategy to alleviate her symptoms while we determine the longer term strategy. A good longer term strategy could be repeat catheter ablation attempt. There are several reasons to consider a repeat catheter ablation attempt, including the fact that with the previous catheter ablation procedure the initial ineffective ablation lesions might have created tissue edema that then precluded the success of the subsequent RF ablation lesions. Ms. Delacruz very much prefers to undergo another attempt at catheter ablation of this challenging accessory pathway. She expressed understanding that there is risk of irreversible damage to the [place] AV conduction system with additional attempts at catheter ablation, but that this risk could be kept to a minimum and still considered reasonably low overall. The procedure would require the use of computerized mapping and also potentially robotic catheter navigation. Cryoablation is an attractive type of catheter ablation in the region of the [place] AV conduction system, however this has already been demonstrated to be ineffective. Nevertheless, both types of catheter ablation technology will be available for the procedure. I also discussed with Ms. Delacruz that it might be best to have her under general anesthesia for this procedure that we will likely encompass several hours of time. She did express that she recalls not tolerating the moderate sedation very well and that they had difficulty keeping her comfortable during the procedure in [place]. I had a detailed discussion with Ms. Delacruz regarding my evaluation and recommendations. After our discussion, Ms. Delacruz expressed her understanding and I answered all her questions to her apparent satisfaction. She would like to proceed as outlined. INFORMED CONSENT The risks, benefits and anticipated outcomes of the procedure, the risks and benefits of the alternatives to the procedure and the roles and tasks of the personnel to be involved were discussed with the patient. Consent for the procedure and agreement to proceed has been obtained. I verify that I personally obtained the consent. I have signed a consent form and will have Ms. Delacruz sign it on the day of the procedure. Albina Luong MD 12/21/2017 PLAN AND RECOMMENDATIONS: 1) Cardiac monitorin-week ZioPatch monitor placed in the office today. This will help determine symptom-rhythm correlation. 2) Increase flecainide to 75 mg twice daily 3) Schedule repeat EP study with catheter ablation sometime after the two-week monitoring is completed. Return in about 6 weeks (around 02/01/2018) for EP study with catheter ablation; office will call to schedule. Albina Luong MD 12/21/2017 Referring Provider: ANDREW GONZALEZ [[id number]] Allergies As of Date: 12/21/2017 Noted Allergy Reaction CITALOPRAM 09/07/2017 14 - Other: See Comments Comments: Did not tolerate, ? Mental status changes DUST 09/08/2005 5 - Intolerance MOLD 09/08/2005 14 - Other: See Comments Comments: Intolerance; itchy throat, runny nose PNEUMOVAX 23 (PNEUMOCOCCAL 23-DAWIT*11/20/2013 7 - Swelling Comments: tongue swollen arm POLLEN 09/08/2005 5 - Intolerance PROPRANOLOL 01/25/2007 1 - Mental Status Change SMOKE 09/08/2005 5 - Intolerance TETRACYCLINE 09/08/2005 8 - GI Upset Comments: Abdominal pain/cramping Date Reviewed: 12/21/2017 Reviewed by: Albina Luong - Fully Assessed Reason for Visit: CARD New Patient Consult [0268] Visit Diagnoses:WPW (Amivp-Nlfssejjz-Yrsdl syndrome) [I45.6] Paroxysmal supraventricular tachycardia (HCC) [I47.1] Palpitations [R00.2] terminologist current use of antiarrhythmic drug [Z79.899] Ovulation pain [N94.0] Order(s):EKG WITH INTERPRETATION [[id number]] Order #: [id number]: 1 SURGICAL REQUEST - ELECTIVE [[id number]] Order #: [id number]: 1 flecainide (TAMBOCOR) 50 mg tabletTake 1.5 tablets by mouth twice daily.Disp: 90 tabletRfl: 3 Prescriptions as of 12/21/2017 Sig: FLECAINIDE 50 MG TABLET Take 1.5 tablets by mouth twi* ESTRADIOL 0.025 MG/24 HR SEMI* 1 Patch every Tuesday and * TRAZODONE 50 MG TABLET Take 1 tablet by mouth daily * LORAZEPAM 0.5 MG TABLET Take 1 tablet by mouth three * Patient taking differently: Take 0.5 mg by mouth three ti* ALBUTEROL SULFATE HFA 90 MCG/* Inhale 2 Puffs as instructed * CETIRIZINE 10 MG TABLET Take 1 tablet by mouth once d* Medication notes this encounter VENLAFAXINE ER 75 MG CAPSULE,EXTENDED RELEASE 24 HR >> Martha Whitaker LPN 12/21/2017 1:45 PM >> MARTHA WHITAKER TueDec 21, 2017 1:45 PM Not taking IBUPROFEN 600 MG TABLET >> Martha Whitaker LPN 12/21/2017 1:45 PM >> MARTHA WHITAKER TueDec 21, 2017 1:45 PM Not taking Problem List As Of Date 12/21/2017 Noted Resolved Asthma [J45.909] Abnormal involuntary movements(781.0) [R25.8, R*INVALID FOR*11/13/2015 ADJUSTMENT DISORDER WITH DEPRESSED MOOD [F43.21]INVALID FOR* Acute gastritis without mention of hemorrhage [*INVALID FOR*11/13/2015 ASCUS favor benign [R87.610] INVALID FOR*11/17/2011 CERVICAL HPV DNA POSITIVE [R87.810] INVALID FOR* ADD (Attention Deficit Disorder) [F98.8] INVALID FOR* Insomnia, unspecified [G47.00] INVALID FOR* More... Rapid palpitations [R00.2] INVALID FOR* Ccwet-Wdliwluwg-Vuuhy (WPW) syndrome [I45.6] INVALID FOR* Chest discomfort [R07.89] INVALID FOR*11/13/2015 Abnormal uterine bleeding [N93.9] INVALID FOR*09/02/2014 Anxiety [F41.9] INVALID FOR* Primary insomnia [F51.01] INVALID FOR* Stress incontinence in female [N39.3] INVALID FOR* Encounter for screening colonoscopy [Z12.11] INVALID FOR* Complex cyst of right ovary [N83.291] INVALID FOR* Biliary dyskinesia [K82.8] INVALID FOR* More... WPW (Azsik-Ukheugqnv-Ujzji syndrome) [I45.6] Gastro-esophageal reflux disease without esopha*INVALID FOR* Chronic sinusitis, unspecified [J32.9] INVALID FOR* 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] INVALID FOR* Asymptomatic menopausal state [Z78.0] INVALID FOR* Anxiety disorder, unspecified [F41.9] INVALID FOR* Acquired absence of both cervix and uterus [Z90*INVALID FOR* Paroxysmal supraventricular tachycardia (HCC) [* Palpitations [R00.2] terminologist current use of antiarrhythmic drug [Z* More... Other instructions from your clinician: Heart Rhythm Problem (Arrhythmia) What is arrhythmia? Arrhythmia is an abnormal rhythm of your heartbeat. Your heart may beat faster or more slowly than normal, or it may skip beats. This can make it harder for the heart to pump enough blood to your body. Another term for arrhythmia is dysrhythmia. What is the cause? An electrical signal in your heart starts each heartbeat, causing the heart muscle to squeeze (contract). Normally, this signal starts in the upper right chamber of the heart (the right atrium) at a place called the sinus node. The signal then follows normal pathways to the upper left atrium and to the lower chambers of the heart (the ventricles). You may have an abnormal heart rhythm if the electrical signals don?t follow the normal pathways or the nerve cells that make the electrical signals don?t work right. Common causes of heart rhythm problems are conditions that damage the heart, like coronary artery disease, heart attack, or heart failure. Problems with the heart valves are another common cause. The heart has 4 valves that open and close with each heartbeat to help blood flow in the right direction through the heart. Some other causes of heart rhythm problems include: -Health problems, such as a stroke, lung disease, diabetes, overactive thyroid gland, or high blood pressure -Abuse of alcohol or drugs, such as cocaine -Some medicines, such as cold medicines -Some natural remedies, such as ephedra, guarana, and licorice Exercise or emotional stress can make your heart beat faster or skip beats, but this is usually not a cause for concern. Sometimes no cause for arrhythmia can be found. What are the different types of arrhythmia? There are many different types of arrhythmia. The heart may beat very slowly (bradycardia) or very fast (tachycardia). The abnormal rhythm may start in either the upper or the lower heart chambers. The 2 main types of arrhythmia are: -Atrial arrhythmia: The electrical signals don?t start in the normal place in the right atrium and don?t travel normally. This can cause part or all of the heart to beat very fast and not in a normal pattern. This affects the ability of the heart to pump blood to the rest of the body. -Ventricular arrhythmia: The abnormal rhythm starts in the lower chambers of the heart. The heart beats in a rhythm that may be irregular or very fast. If severe and untreated, it can be life-threatening. What are the symptoms? Some arrhythmias do not cause any symptoms, or the symptoms may come and go. Your body may simply adjust to the change in rhythm over time. When you do have symptoms, they may include: -Feeling like your heart is beating too fast or too hard or skipping beats or fluttering -Feeling dizzy or lightheaded -Fainting -Feeling tired or weak -Chest pain -Shortness of breath How is it diagnosed? Your healthcare provider will ask about your symptoms and medical history and examine your heart and lungs. Tests may include: -An ECG (also called an EKG), which measures and records your heartbeat. You may have an ECG while you are resting or while you exercise on a treadmill. You may also be asked to wear a small portable ECG monitor for a few days or sometimes a couple weeks. -Blood tests -Chest X-ray -An echocardiogram, which uses sound waves (ultrasound) to show the structures of the heart and how well the heart muscle is pumping -An angiogram, which uses dye injected into a vein and X-rays to look for narrowing or blockages of blood vessels -An electrophysiology study (EPS), which uses tiny wires put into your heart through your veins to look at the electrical pathways in your heart How is it treated? The goal of treatment is to help the heart keep a normal rhythm. The right treatment for you depends on the cause of the arrhythmia, how often you have symptoms, and the severity of your symptoms. If you have no symptoms, or your symptoms are fairly mild, you may not need treatment. If a health problem like a leaky heart valve or heart failure is causing the arrhythmia, treating the health problem may also treat the arrhythmia. Other possible treatments are: -Medicine to control the heart rate -Surgery to: ?Make small cuts or scars in the heart that will block abnormal electrical pathways (cardiac ablation) ?Put an electronic device, such as a pacemaker, under the skin in your chest to help control the heartbeat ?Improve blood flow to the heart if you have coronary artery disease (bypass surgery) How can I take care of myself? Follow your healthcare provider's instructions. Ask your provider: -How and when you will hear your test results -How long it will take to recover -What activities you should avoid and when you can return to your normal activities -How to take care of yourself at home -What symptoms or problems you should watch for and what to do if you have them Make sure you know when you should come back for a checkup. How can I help prevent arrhythmia? The best prevention is to have a heart-healthy lifestyle: -Keep a healthy weight. -Eat a healthy diet. -Stay fit with the right kind of exercise for you. -Decrease stress. -Don?t smoke. -Limit your use of alcohol. Let your healthcare provider know if you have a family history of arrhythmia. If you have heart disease or high blood pressure, follow your healthcare provider's instructions for treatment. Developed by [employer]. Published by [employer]. Copyright ?2014 [employer] and/or one of its subsidiaries. All rights reserved. Visit Notes: >> Martha Whitaker Wed Dec 21, 2017 1:45 PM Status: Signed Ms. Delacruz notes fluttering heavy feeling in her chest about once a week which lasts at the most 5 or 10 minutes. Martha Whitaker LPN Prescriptions ordered this encounter Disp Refills Start End FLECAINIDE 50 MG TABLET 90 t* 3 12/21/2017 Route: ORAL Sig: Take 1.5 tablets by mouth twice daily. Medications Discontinued During This Encounter ibuprofen (MOTRIN) 600 mg tablet 30 t* 0 07/14/2017 12/21/2017 Route: ORAL Sig: Take 1 tablet by mouth every 8 hours as needed for Pain. Disc: Erroneous entry venlafaxine ER (EFFEXOR XR) 75 mg 24* 30 c* 1 09/07/2017 12/21/2017 Route: ORAL Sig: Take 1 capsule by mouth once daily. Disc: Erroneous entry flecainide (TAMBOCOR) 50 mg tablet 180 * 3 08/16/2017 12/21/2017 Route: ORAL Sig: Take 1 tablet by mouth twice daily. Disc: Dosage adjustment Disposition: Return in about 6 weeks (around 02/01/2018) for EP study with catheter ablation; office will call to schedule. Follow-up and Disposition History Recorded Letter Text Encounter Status:Closed by ALBINA LUONG MD on 12/21/17 HOSP Observed: 12/21/2017 Status: COMPLETED Source: [facility] 12:00 AM CLINIC OTHER CAMPUS REPOSITORY Patient:Nicki Delacruz MRN: <[id number]> Height:5' 2(1.575 m) Weight:140 lb 9.6 oz (63.776 kg) Outpatient Medications as of 03/28/18: traZODone (DESYREL) 50 mg tablet cetirizine (ZYRTEC) 10 mg tablet flecainide (TAMBOCOR) 50 mg tablet estradiol (NOBLE, VIVELLE-DOT) 0.025 mg/24 hr LORazepam (ATIVAN) 0.5 mg tab albuterol HFA (VENTOLIN HFA) 90 mcg/actuation inhaler Admission/Clinic Administered Medications as of 03/28/18: heparin 1,000 Units in NaCl 0.9% 1,000 mL 0.9% NaCl 2-10 mL Problem List: Asthma [J45.909] Adjustment disorder with depressed mood [F43.21] Cervical high risk human papillomavirus (HPV) DNA test positive [R87.810] ADD (attention deficit disorder) [F98.8] Insomnia, unspecified [G47.00] Anxiety [F41.9] Primary insomnia [F51.01] Stress incontinence in female [N39.3] Encounter for screening colonoscopy [Z12.11] Complex cyst of right ovary [N83.291] Biliary dyskinesia [K82.8] WPW (Zmmha-Rwoqmnwxg-Bwguc syndrome) [I45.6] Gastro-esophageal reflux disease without esophagitis [K21.9] Chronic sinusitis, unspecified [J32.9] 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] Asymptomatic menopausal state [Z78.0] Anxiety disorder, unspecified [F41.9] 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 KANDI Marmolejo APRN.SOURCE INSPECTOR 03/23/2018 5:29 PM Signed Subjective HPI Mrs. Delacruz is a 52-year-old female who presents today and a preprocedure visit prior to EP study and ablation scheduled next week with Dr. Luong. To provide a brief medical history. She recalls experiencing symptoms suggestive of arrhythmia since she was young child probably 8 or 9 years of age. She describes her palpitations as fluttering in her chest and racing heartbeats. She had been very athletic as a youth and participate in track and field. She never experienced a syncopal event. Approximate year and a half ago she told a antihistamine decongestant and she started to develop severe palpitations and heart racing. 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 She was referred to Dr. Mcknight at the [facility]. Her brother has a history of WPW and was already a patient of Dr. Mckngiht. In November 2016 she underwent an EP study and attempted catheter ablation. The procedure was unsuccessful due to location of the pathway. She was treated with flecainide and states she did well for short period of time. She began experiencing recurrent palpitations. She describes more prolonged episodes of palpitations associated with rapid heart rates lasting about 5-10 minutes. She believes triggers for her symptoms include stress, anxiety as well as physical activity such as working out. She was seen and evaluated by Dr. Luong approximately 3 months ago due to her concerns of the flecainide was not keeping her and rhythm. Dr. Luong discussed and reviewed the records available in [facility]. He reviewed the treatment options available one option would be to increase the flecainide dosing. This would be a short-term strategy. A longer-term strategy would be to try to repeat catheter ablation. Patient prefers to undergo a catheter ablation procedure which is scheduled for March 28 at [facility]. Procedure will be under general anesthesia. Patient was not able to tolerate moderate sedation well of the last procedure. She denies any complaints of chest pain, shortness of breath, dizziness lightheadedness syncope nor near syncope. She does complain of intermittent palpitations which are self-limiting and have not required any further intervention. She has been off the flecainide therapy for the last 6 days in preparation for the ablation. Citalopram; Dust; Liquid Bandage [Enbucrilate]; Mold; Pneumovax 23 [Pneumococcal 23-Dawit Ps Vaccine]; Pollen; Propranolol; Smoke; Tetracycline Current Outpatient Prescriptions: traZODone (DESYREL) 50 mg tablet Take 1 tablet by mouth daily at bedtime. Disp: 30 tablet Rfl: 5 cetirizine (ZYRTEC) 10 mg tablet take 1 tablet by mouth once daily Disp: 90 tablet Rfl: 3 estradiol (NOBLE, VIVELLE-DOT) 0.025 mg/24 hr 1 Patch every Tuesday and Tuesday. Disp: Rfl: albuterol HFA (VENTOLIN HFA) 90 mcg/actuation inhaler Inhale 2 Puffs as instructed every 4 hours as needed for Wheezing/Shortness of Breath. Disp: 1 Inhaler Rfl: 0 flecainide (TAMBOCOR) 50 mg tablet Take 1.5 tablets by mouth twice daily. Disp: 90 tablet Rfl: 3 LORazepam (ATIVAN) 0.5 mg tab Take 1 tablet by mouth three times daily as needed. (Patient taking differently: Take 0.5 mg by mouth three times daily as needed (anxiety). ) Disp: 30 tablet Rfl: 5 No current facility-administered medications for this visit. Social History Marital status: Spouse name: Years of education: 15 Number of children: 3 Occupational History Occupation Employer Comment [employer] Social History Main Topics Smoking status: Never Smoker Smokeless tobacco: Never Used Alcohol use: Yes Comment: occasionally Drug use: No Sexual activity: Yes Partners with: Male control/protection: Other, Surgical Comment: Hysterectomy Other Topics Concern Caffeine Concern Yes Special Diet No Exercise No Comment:sedentary Social History Narrative OARRS report reviewed February 16, 2012 Gael Bravo MD PAST MEDICAL HISTORY Diagnosis Date - Allergic rhinitis due to other allergen - Encounter for insertion or removal of intrauterine contraceptive device 08/30/2007 Mirena, removed March 10 - skilled nursing current use of antiarrhythmic drug flecainide; indication: symptomatic PSVT with WPW syndrome - Other anxiety states - Palpitations - Paroxysmal supraventricular tachycardia (HCC) - Stress incontinence, female - Unspecified asthma(493.90) - WPW (Hjvmq-Xdyawbnnl-Hkabd syndrome) associated with symptomatic SVT; attempt at catheter ablation 11/2016 failed; she continues to experience intermittent palpitations and tachycardia despite treatment with flecainide PAST SURGICAL HISTORY Procedure Laterality Date - BLADDER SURGERY HX 11/2015 bladder sling - DELIVERY ONLY 85, 88,92 , low cervical X3 - ENLARGE BREAST WITH IMPLANT 11/2007 Breast augmentation - 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 Mcknight; right midseptal AP unable to be ablated despite cryoablation and RF ablation attempts; AP described as not having capability for extremely rapid antegrade conduction Family History Problem Relation Age of Onset - Thyroid Mother goiter - Palpitations [OTHER] Mother - Asthma Father - Asthma Son - Palpitations [OTHER] Son - Thyroid Maternal Grandmother goiter - Other [OTHER] Maternal Grandfather young in MVA - Emphysema Paternal Grandmother - Heart Failure Paternal Grandmother - tobacco use [OTHER] Paternal Grandmother - Heart disease Paternal Grandfather had a heart attack and at young age - Stroke Paternal Grandfather - Prostate Cancer Paternal Grandfather - Asthma Daughter - Brain tumor [OTHER] Daughter benign - Seizures Brother - Heart Brother WPW syndrome; ablation unsuccessful -- too close to AV node - Other [OTHER] Other no unexplained sudden , crib deaths, unexplained syncope BP 126/82 Pulse 80 Resp 16 Ht 5' 2 (1.58m) Wt 140 lb 9.6 oz (63.8kg) SpO2 99% LMP 05/06/2014 BMI 25.71 kg/(m2). Review of Systems Constitutional: Negative. HENT: Negative. Eyes: Negative. Respiratory: Negative. Cardiovascular: Positive for palpitations. Negative for chest pain, orthopnea, claudication, leg swelling and PND. Occasional palpitations and heart racing since stopping flecainide for EPS and ablation next week. Lasting few seconds and reolved without need for vagal maneuvers Gastrointestinal: Negative. Genitourinary: Negative. Musculoskeletal: Negative. Skin: Negative. Neurological: Negative. Endo/Heme/Allergies: Negative. Psychiatric/Behavioral: Negative. Objective Physical Exam Constitutional: She is oriented to person, place, and time and well-developed, well-nourished, and in no distress. HENT: Head: Normocephalic. Neck: Normal range of motion. Neck supple. Cardiovascular: Normal rate, regular rhythm, normal heart sounds and intact distal pulses. Pulmonary/Chest: Effort normal and breath sounds normal. Abdominal: Soft. Bowel sounds are normal. Musculoskeletal: Normal range of motion. Neurological: She is alert and oriented to person, place, and time. Skin: Skin is warm and dry. Psychiatric: Mood, memory, affect and judgment normal. impression/recommendations; 1. 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 She is scheduled for a EP study with an ablation on March 28 at [facility]. She was instructed that she does need a automation driver to and from the hospital. She'll receive a call the night before from the heart and vascular Center instructing her on time of arrival. She will be NPO from midnight the day before. Follow-up appointment will be determined after the procedure and at the time of discharge. Progress Notes ([facility]): Kassie Muñoz RN 03/14/2018 8:33 PM Signed Message from bluebird bio: Nicki Delacruz would like a refill of the following medications: traZODone (DESYREL) 50 mg tablet [Andrew Gonzalez MD] Preferred pharmacy: [address] [address] - [address] [facility] [phone] [id number] Comment: Kassie Muñoz RN 03/14/2018 8:34 PM Signed KEYANNA 09/03/17 NOV n/a Patient electronically sent a request for the following prescription(s) Pending Prescriptions Disp Refills TRAZODONE 50 MG TABLET 30 tablet 5 Sig: Take 1 tablet by mouth daily at bedtime. SAIGE: No Patient aware RX will be sent to pharmacy. No need to notify patient. Please review. Kassie Muñoz RN PROGRESS Observed: 12/01/2017 Status: COMPLETED Source: [place] 6:01 PM [facility] REPOSITORY HNO ID: [id number] Author: Dulce Hoover Service: (none) Author Type: Physician Type: Progress Notes Filed: 12/01/2017 6:03 PM Note Text: HPI: Nicki returns in follow-up of laparoscopic cholecystectomy for biliary dyskinesia. She had a significant reaction to the skin glue. This is improving. Her preoperative symptoms are improved. EXAM: LMP 05/06/2014 Her incisions are healed, there is some resolving dermatitis present. PATHOLOGY: Mild chronic cholecystitis ASSESSMENT: (Z90.49) Status post laparoscopic cholecystectomy (primary encounter diagnosis) Nicki returns in follow-up of laparoscopic cholecystectomy for biliary dyskinesia. Her preoperative symptoms have improved. She did have a reaction to the skin glue which is improving. She'll be returning to see me as needed. No orders found for this visit on 12/01/17. Dulce Hoover MD CNOV Observed: 12/01/2017 Status: COMPLETED Source: [place] 11:15 AM [facility] REPOSITORY Office Visit (GENBIANCA) NICKI DELACRUZ ([id number]) 1965 F NFR Date Time Provider Department 12/01/17 11:15 AM DULCE HOOVER During your visit today, we recorded the following information about you: Dulce Hoover MD 12/01/2017 6:03 PM Signed HPI: Nicki returns in follow-up of laparoscopic cholecystectomy for biliary dyskinesia. She had a significant reaction to the skin glue. This is improving. Her preoperative symptoms are improved. EXAM: LMP 05/06/2014 Her incisions are healed, there is some resolving dermatitis present. PATHOLOGY: Mild chronic cholecystitis ASSESSMENT: (Z90.49) Status post laparoscopic cholecystectomy (primary encounter diagnosis) Nicki returns in follow-up of laparoscopic cholecystectomy for biliary dyskinesia. Her preoperative symptoms have improved. She did have a reaction to the skin glue which is improving. She'll be returning to see me as needed. No orders found for this visit on 12/01/17. Dulce Hoover MD Referring Provider: DULCE HOOVER [[id number]] Allergies As of Date: 12/01/2017 Noted Allergy Reaction CITALOPRAM 09/07/2017 16 - Unknown DUST 09/08/2005 5 - Intolerance MOLD 09/08/2005 5 - Intolerance PNEUMOVAX 23 (PNEUMOCOCCAL 23-DAWIT*11/20/2013 7 - Swelling Comments: tongue swollen arm POLLEN 09/08/2005 5 - Intolerance PROPRANOLOL 01/25/2007 1 - Mental Status Change SMOKE 09/08/2005 5 - Intolerance TETRACYCLINE 09/08/2005 5 - Intolerance Comments: CRAMPING Date Reviewed: 12/01/2017 Reviewed by: Dulce Hoover - Fully Assessed Reason for Visit: Post Op [174] Cmt: cholecystectomy Primary Visit Diagnosis:Status post laparoscopic cholecystectomy [Z90.49] Prescriptions as of 12/01/2017 Sig: TRIAMCINOLONE ACETONIDE 0.1 %* Apply 1 application to affect* ESTRADIOL 0.025 MG/24 HR SEMI* 1 Patch every Tuesday and * TRAZODONE 50 MG TABLET Take 1 tablet by mouth daily * LORAZEPAM 0.5 MG TABLET Take 1 tablet by mouth three * VENLAFAXINE ER 75 MG CAPSULE,* Take 1 capsule by mouth once * FLECAINIDE 50 MG TABLET Take 1 tablet by mouth twice * IBUPROFEN 600 MG TABLET Take 1 tablet by mouth every * ALBUTEROL SULFATE HFA 90 MCG/* Inhale 2 Puffs as instructed * CETIRIZINE 10 MG TABLET Take 1 tablet by mouth once d* Problem List As Of Date 12/01/2017 Noted Resolved Asthma [J45.909] Abnormal involuntary movements(781.0) [R25.8, R*INVALID FOR*11/13/2015 ADJUSTMENT DISORDER WITH DEPRESSED MOOD [F43.21]INVALID FOR* Acute gastritis without mention of hemorrhage [*INVALID FOR*11/13/2015 ASCUS favor benign [R87.610] INVALID FOR*11/17/2011 CERVICAL HPV DNA POSITIVE [R87.810] INVALID FOR* ADD (Attention Deficit Disorder) [F98.8] INVALID FOR* Insomnia, unspecified [G47.00] INVALID FOR* More... Rapid palpitations [R00.2] INVALID FOR* Bvmvo-Krjwjgxki-Lrtyf (WPW) syndrome [I45.6] INVALID FOR* Chest discomfort [R07.89] INVALID FOR*11/13/2015 Abnormal uterine bleeding [N93.9] INVALID FOR*09/02/2014 Anxiety [F41.9] INVALID FOR* Primary insomnia [F51.01] INVALID FOR* Stress incontinence in female [N39.3] INVALID FOR* Encounter for screening colonoscopy [Z12.11] INVALID FOR* Complex cyst of right ovary [N83.291] INVALID FOR* Biliary dyskinesia [K82.8] INVALID FOR* More... Encounter Status:Closed by DULCE HOOVER MD on 12/01/17 PROGRESS Observed: 11/28/2017 Status: COMPLETED Source: [place] 3:03 PM [facility] REPOSITORY O ID: [id number] Author: Сергей Ayoub Service: (none) Author Type: Physician Type: Progress Notes Filed: 11/28/2017 3:27 PM Note Text: Patient presents with: Rash: on abdomen AND arm, started < 2 wks ago HPI: Rash: Location: mostly incision sites. Now under the left breast, left wrist, resolved back of the leg Present for 2 weeks. Had cholecystectomy 2 weeks ago. Pruritis: Yes Pain: Change: Rash on leg resolved. Bleeding/ulceration/blister/pustule: Red bumps. Seeping resolved Contacts with rash: No Exposure: Skin adhesive removed and replaced with steri- strips which also fell off from seeping. No past issues with adhesive or skin glue. Treatment: None. Prescribed antibiotic in the ER but did not take it. MEDICATIONS: estradiol (NOBLE, VIVELLE-DOT) 0.025 mg/24 hr 1 Patch every Tuesday and Tuesday. traZODone (DESYREL) 50 mg tablet Take 1 tablet by mouth daily at bedtime. LORazepam (ATIVAN) 0.5 mg tab Take 1 tablet by mouth three times daily as needed. flecainide (TAMBOCOR) 50 mg tablet Take 1 tablet by mouth twice daily. ibuprofen (MOTRIN) 600 mg tablet Take 1 tablet by mouth every 8 hours as needed for Pain. albuterol HFA (VENTOLIN HFA) 90 mcg/actuation inhaler Inhale 2 Puffs as instructed every 4 hours as needed for Wheezing/Shortness of Breath. cetirizine (ZYRTEC) 10 mg tablet Take 1 tablet by mouth once daily. venlafaxine ER (EFFEXOR XR) 75 mg 24 hr capsule Take 1 capsule by mouth once daily. ALLERGIES: ALLERGIES Allergen Reactions - Citalopram Unknown - Dust Intolerance - Mold Intolerance - Pneumovax 23 [Pneum* Swelling tongue swollen arm - Pollen Intolerance - Propranolol Mental Status Change - Smoke Intolerance - Tetracycline Intolerance CRAMPING VITALS: BP 122/70 Pulse 80 Temp 37.1 ?C (98.8 ?F) (Tympanic) Resp 16 Wt 65.8 kg (145 lb) LMP 05/06/2014 BMI 26.52 kg/m2 PHYSICAL EXAM: GEN: pleasant, no acute distress, alert SKIN: Patches of dry erythema and 2mm papules near the port sites RUQ, umbilicus, epigastrium. Few faint bumps on undersurface of the left breast and ventral left wrist. ASSESSMENT/PLAN: 1. Rash - ICD9: 782.1, ICD10: R21 Allergic reaction after surgery. - TRIAMCINOLONE ACETONIDE 0.1 % TOPICAL CREAM. Advised to avoid face, axilla, and groin. She may f/u with dermatology if rash continues. She is feeling some increase in palpitations. 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 Сергей Ayoub MD PROGRESS Observed: 11/22/2017 Status: COMPLETED Source: [place] 2:56 PM [facility] REPOSIT[facility] HNO ID: [id number] Author: Radha Acevedo Service: (none) Author Type: Nurse Practitioner Type: Progress Notes Filed: 11/22/2017 3:02 PM Note Text: ESTABLISHED PATIENT Nicki Delacruz is a 52 year old female presenting for Post Op concern of blistering around incisions and oozing.. HISTORY OF PRESENT ILLNESS Nicki is 6 days post op from a laparoscopic cholecystectomy by Dr. Hoover. Her incisions are oozing serous fluid and are surrounded by small blisters. There is no sign of infection. Skin glue gently peeled away, site cleansed and steristrips applied. Advised no ointments or creams, she may shower. Continue to observe for signs of infection. We will touch base on Tuesday to determine follow up. She denies pain other than incisional tenderness, her abdomen is soft. She is moving her bowels, reports occasional nausea. Appetite and energy level are poor. HISTORIES FAMILY HISTORY Problem Relation Age of Onset - Asthma Father - Emphysema Paternal Grandmother - Seizures Paternal Grandmother - Cancer Paternal Grandfather PROSTATE CANCER, [place] - Asthma Son - Asthma Daughter - Seizures Brother wpw PAST MEDICAL HISTORY Diagnosis Date - Allergic rhinitis due to other allergen - Encounter for insertion or removal of intrauterine contraceptive device 08/30/2007 Mirena, removed March 10 - Other anxiety states - Stress incontinence, female - Unspecified asthma(493.90) - WPW (Gyrwf-Dylcmpqnr-Muaiz syndrome) PAST SURGICAL HISTORY Procedure Laterality Date - DELIVERY ONLY 85, 88,92 , low cervical X3 - ENLARGE BREAST WITH IMPLANT 11/2007 Breast augmentation - IUD 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 08/30/2007 Mirena - removed - OOPHORECTOMY, PART/TOTAL UNILAT/BILAT 2016 - PAST SURGICAL HISTORY OF 11/2015 bladder sling - REMOVE TONSILS/ADENOIDS,<13 Y/O 1968 - S PK LAVH [id number] 2013 lavh RICKY biltareal salpingectomy - SVT ABLATION W/ EP COMPLETE 11/24/2016 Social History Marital status: Spouse name: Years of education: 15 Number of children: 3 Occupational History Occupation Employer Comment [employer] Social History Main Topics Smoking status: Never Smoker Smokeless status: Never Used Alcohol use: Yes Comment: Occasionally Drug use: No Sexual activity: Yes Partners with: Male control/protection: Other, Surgical Comment: Hysterectomy Social History Narrative OARRS report reviewed February 16, 2012 Gael Bravo MD Allergies: ALLERGIES Allergen Reactions - Citalopram Unknown - Dust Intolerance - Mold Intolerance - Pneumovax 23 [Pneum* Swelling tongue swollen arm - Pollen Intolerance - Propranolol Mental Status Change - Smoke Intolerance - Tetracycline Intolerance CRAMPING Medications: estradiol (NOBLE, VIVELLE-DOT) 0.025 mg/24 hr 1 Patch every Tuesday and Tuesday. traZODone (DESYREL) 50 mg tablet Take 1 tablet by mouth daily at bedtime. LORazepam (ATIVAN) 0.5 mg tab Take 1 tablet by mouth three times daily as needed. flecainide (TAMBOCOR) 50 mg tablet Take 1 tablet by mouth twice daily. ibuprofen (MOTRIN) 600 mg tablet Take 1 tablet by mouth every 8 hours as needed for Pain. albuterol HFA (VENTOLIN HFA) 90 mcg/actuation inhaler Inhale 2 Puffs as instructed every 4 hours as needed for Wheezing/Shortness of Breath. cetirizine (ZYRTEC) 10 mg tablet Take 1 tablet by mouth once daily. venlafaxine ER (EFFEXOR XR) 75 mg 24 hr capsule Take 1 capsule by mouth once daily. 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: Negative for abnormal vaginal bleeding, abnormal vaginal discharge MUSCULOSKELETAL: Negative for joint pain or swelling, back pain or muscle pain SKIN: Negative for lesions, rash, and itching PSYCH: Negative for sleep disturbance, mood disorder and recent psychosocial stressors HEMATOLOGY/LYMPHOLOGY: Negative for prolonged bleeding, bruising easily or swollen nodes ENDOCRINE: Negative for cold or heat intolerance, polyuria, polydipsia and goiter NEURO: No history of headaches, syncope, paralysis, seizures or tremors PHYSICAL EXAM BP 126/78 Pulse 85 Temp 37.1 ?C (98.8 ?F) (Oral) Wt 67.1 kg (148 lb) LMP 05/06/2014 SpO2 100% BMI 27.07 kg/m2 General Appearance: Well appearing, alert, in no acute distress, well-hydrated, well nourished.. Skin: Skin color, texture, turgor normal, See HPI. Lungs: Lungs clear to auscultation. No wheezing, rhonchi, rales. Heart: RRR without murmur, gallop, or rubs. No ectopy. Abdomen: Normal abdominal exam, Abdomen soft, non-tender. Bowel sounds normal. No masses, organomegaly. Assessment IMPRESSION/PLAN Post operative skin reaction, possibly from skin glue. Glue was removed and replaced with steri strips. She will monitor for infection. DISCHARGE INSTRUCTION Observed: 11/20/2017 Status: F Source: [place] 4:46 PM [facility] REPOSITORY [facility] Medical Records Department [address] [place] [address] Discharge Instruction 11/20/171644 MR#: [id number] Acct: [id number] Name: NICKI DELACRUZ Rep #: [id number] : 1965 52 From: Jaida Siu PCP: RIK GONZALEZ Status: REG ER ED Disposition - Plan for ED Patient: Chief Complaint: Other, Pain/Inj Instructions: ED Post Op Pain Prescriptions: Oxycodone HCl/Acetaminophen [Percocet 5/325] 1 tablet PO Q6H PRN PRN 3 Days #10 tablet PRN Reason: Pain Cephalexin [Keflex] 500 mg PO Q6 #28 capsule Referrals: Kiko Aguiar [Other] What to do if you have Problems For any increased pain, shortness of breath, bleeding, nausea or vomiting, chest pain, or any unexpected problems, contact your Primary Care Provider. Call [facility] ([phone]) or report to the closest Emergency Room. Call 911 if necessary. 11/20/17 3476 <Electronically signed by Jaida Siu > Date Jaida Siu Cosigner Signature (If Indicated): Date CC: RIK GONZALEZ DISCHARGE INSTRUCTION Observed: 11/20/2017 Status: F Source: [place] 4:33 PM [facility] REPOSITORY [facility] Medical Records Department [address] [place] [address] Discharge Instruction 11/20/17 1631 MR#: [id number] Acct: [id number] Name: NICKI DELACRUZ Rep #: [id number] : 1965 52 From: Jaida Siu PCP: RIK GONZALEZ Status: REG ER ED Disposition - Plan for ED Patient: Chief Complaint: Other, Pain/Inj Instructions: ED Post Op Pain Prescriptions: Oxycodone HCl/Acetaminophen [Percocet 5/325] 1 tablet PO Q6H PRN PRN 3 Days #10 tablet PRN Reason: Pain Referrals: Kiko Aguiar [Other] What to do if you have Problems For any increased pain, shortness of breath, bleeding, nausea or vomiting, chest pain, or any unexpected problems, contact your Primary Care Provider. Call [facility] ([phone]) or report to the closest Emergency Room. Call 911 if necessary. 11/20/17 1633 <Electronically signed by Jaida Siu > Date Jaida Siu Cosigner Signature (If Indicated): Date CC: RIK GONZALEZ EMERGENCY DEPARTMENT Observed: 11/20/2017 Status: F Source: [place] SUMMARY 4:31 PM [facility] REPOSITORY [facility] Medical Records Department [address] [place] [address] Emergency Department Summary 11/20/17 1320 MR#: [id number] Acct: [id number] Name: NICKI DELACRUZ Rep #: [id number] : 1965 52 From: Jaida Siu PCP: RIK GONZALEZ Status: REG ER - ER Visit Summary Date of Service: 11/20/17 Chief Complaint: [Right flank pain] History of Present Illness: The patient is a 52 F [presents to the emergency department with flank pain she had a cholecystectomy on Tuesday at [facility]. She was doing well but since Tuesday she has been having pain that is worsening in the right upper quadrant right lower chest right back. She does feel occasionally like she has to take a big deep breath and but denies any shortness of breath. No fevers or chills. She had a small amount of nausea this morning. Urination has been normal. She has noticed a worsening redness and clear bubbling around her incision sites. There is been a clear drainage. It is worse with taking a deep breath.] Physical Examination: [] Blood pressures 146/90 other vitals within normal limits WN WD NAD PERRL EOMI MMM NECK supple and nontender, no masses RRR no murmur rub or gallop, no peripheral edema, symmetric radial pulses CTAB no respiratory distress ABDOMEN is soft she has tenderness in the right upper quadrant and right CVA tenderness, normal bowel sounds, no distension, no rebound or guarding SKIN is warm and erythema and clear vesicular lesions and drainage around all of her incision sites no tenderness Alert and Oriented x3, CN II-XII in tact, no motor or sensory deficits, gait normal No lymphadenopathy Test Results: [] Emergency Department Course and Treatment: [Patient has pleuritic pain as well as tenderness in the right upper quadrant. I suspect this is postoperative abdominal pain however because she describes some breathing increased effort and pleuritic pain I did order a CTA of the chest as well as the abdomen and pelvis. She has no bile leak or other intra-abdominal complication. CTA shows no PE she does have some atelectasis. Screening blood work shows mild elevation of the AST she has no leukocytosis. Patient does have some irritation around her incision sites. I think this likely represents a sensitivity reaction however I will cover her with Keflex in case there is infection. I did speak with on-call surgeon Dr. Landaverde discussing care in the emergency department. She will be given a Percocet for home.] Treatment Plan: [] Disposition: [disCharge] Impression: [1. Postoperative pain 2. Skin reaction] This note was generated with Snapfish dictation software. It may contain incorrect words, spelling, and punctuation that were not noted in review of the chart prior to signing ED Disposition - Plan for ED Patient: Chief Complaint: Other, Pain/Inj Referrals: Rik Gonzalez [Primary Care Provider] - What to do if you have Problems For any increased pain, shortness of breath, bleeding, nausea or vomiting, chest pain, or any unexpected problems, contact your Primary Care Provider. Call [facility] ([phone]) or report to the closest Emergency Room. Call 911 if necessary. 11/20/17 1631 <Electronically signed by Jaida Siu > Date Jaida Siu Cosigner Signature (If Indicated): Date CC: RIK GONZALEZ CBC W/DIFF, AUTOMATED Collected: 11/20/2017 Status: F Source: [place] 1:35 PM [facility] REPOSITORY TYPE CODE TESTS RESULT OUT OF RANGE REFERENCE UNITS LAB L100.1000 4.4-11.0 K/mm3 Normal WBC 9.2 LAB L100.1200 4.2-5.4 M/mm3 Normal RBC 4.55 LAB L100.1300 12.0-15.0 g/dl Normal HGB 13.0 LAB L100.1400 37-47 % Normal HCT 39.9 LAB L100.1500 81-99 fL Normal MCV 87.7 LAB L100.1600 27.0-32.0 pg Normal MCH 28.6 LAB L100.1700 32-36 g/gl Normal MCHC 32.6 LAB L100.1810 11.6-14.6 % Normal RDW CV 13.3 LAB L100.1820 35.1-43.9 fl Normal RDW SD 42.2 LAB L100.1900 150-450 K/mm3 Normal PLT 301 LAB L100.2000 6.2-12.0 fl Normal MPV 10.0 LAB L100.2100 47-70 % Normal NEUT% 67.9 LAB L100.2200 19-41 % Normal LY% 19.8 LAB L100.2300 0-10 % Normal MONO% 7.6 LAB L100.2400 0-5 % Normal EO% 4.3 LAB L100.2500 0-1 % Normal BASO% 0.1 LAB L100.2550 0.0-0.9 % Normal IM GRAN % 0.300 Result Comment: IG% - Immature Granulocytes (promyelocytes, myelocytes and metamyelocytes) > 1% indicates that a LEFT SHIFT is Present. LAB L100.2620 2.0-7.7 X10 3/uL Normal Absolute Neut 6.3 LAB L100.2720 0.83-4.51 X10 3/ul Normal Absolute Lymph 1.83 Performed By: #### L100.0100 #### [facility] [address] [place], [place], [address] COMPREHENSIVE METABOLIC Collected: 11/20/2017 Status: F Source: [facility] 1:35 PM [facility] REPOSITORY TYPE CODE TESTS RESULT OUT OF RANGE REFERENCE UNITS LAB L501.0100 74-106 mg/dL Normal GLU 94 Result Comment: Please note revised GLUCOSE reference range effective 2017. LAB L501.1000 7-18 mg/dL Normal BUN 11 LAB L501.1100 0.55-1.02 mg/dL Normal CREAT,SERUM 0.88 Result Comment: The validity of the calculated GFR AND GFRAA in patients over 70 years has not been determined. Clinical correlation is essential. LAB L501.1110 >60 mL/min Normal EST GFR 72 Result Comment: Non- GFR Calc LAB L501.1115 >60 mL/min Normal EST GFR - AA 87 Result Comment: GFR Calc LAB L501.1255 ml/min Normal Estimated CRCL 59.82 LAB L501.1300 10-20 RATIO Normal BUN/CRE 12.5 LAB L501.1500 6.4-8. g/dL Normal 2 T PROT 7.3 LAB L501.1800 3.2-5. g/dL Normal 0 ALB 3.8 LAB L501.1950 2.2-4. g/dL Normal 2 GLOB 3.5 LAB L501.2000 0.9-2. RATIO Normal 4 A/G 1.1 LAB L501.2200 8.5-10 mg/dL Normal .1 CA 9.1 LAB L501.4100 15-37 U/L Normal AST 26 LAB L501.4305 45-117 U/L Normal ALK P 64 LAB L501.4405 13-56 U/L High ALT 69 Result Comment: Please note revised ALT reference range effective 2017. LAB L501.4600 0.20-1.00 mg/dL Normal T BILI 0.30 LAB L501.5300 136-145 mmol/L Normal NA 140 LAB L501.5600 3.5-5.1 mmol/L Normal K 4.1 LAB L501.5900 98-107 mmol/L Normal CL 106 LAB L501.6100 21.0-32.0 mmol/L Normal CO2 30.0 LAB L501.6200 5-15 Low GAP 4 Performed By: #### L500.4050, L501.2450 #### [facility] [address] [place], [address] LIPASE Collected: 11/20/2017 Status: F Source: [place] 1:35 PM [facility] REPOSITORY TYPE CODE TESTS RESULT OUT OF RANGE REFERENCE UNITS LAB L501.2450 73-393 U/L Normal LIPASE 79 Performed By: #### L500.4050, L501.2450 #### [facility] [address] [place], [address] URINALYSIS, COMPLETE Collected: 11/20/2017 Status: F Source: [place] 1:30 PM [facility] REPOSITORY Order Comment: Order Date: 11/20/17 How was Urine Obtained? CLEAN CATCH TYPE CODE TESTS RESULT OUT OF RANGE REFERENCE UNITS LAB L400.3000 Yellow COLOR Normal Straw LAB L400.3050 Clear Normal CLARITY Clear LAB L400.3200 Normal mg/dl Normal GLUCOSE, UR Normal LAB L400.3300 Negative mg/dL Normal BILIRUBIN URINE Negative LAB L400.3400 Negative mg/dl Normal KETONE UR Negative LAB L400.3465 1.002-1.030 Normal SP.GR. DIPSTX 1.015 LAB L400.3550 5.0 - 8.0 pH UR Normal 8.0 LAB L400.3600 Negative mg/dl PROT Normal DIPSTX Negative LAB L400.3700 Normal mg/dl Normal UROBILI Normal LAB L400.3750 Negative Normal NITRITE UR Negative LAB L400.3780 Negative /ul Normal OCCULT BLOOD-UR Negative LAB L400.3800 Negative /ul LEUK Normal ESTERASE Negative LAB L400.4050 0-5 /hpf WBC 0 Normal SEEN LAB L400.4100 0-5 /hpf 0 Normal RBC-UA SEEN LAB L400.4150 5-10 /hpf SQUAM Normal EPI 0-5 SEEN LAB L400.4300 None Seen /hpf 0 Normal BACTERIA SEEN LAB L400.4350 <or=2+ /hpf 0 Normal MUCUS, URINE SEEN Performed By: #### L400.0001 #### [facility] [address] [facility] [place], [address] ABDOMEN/PELVIS W IV CONT Observed: 11/20/2017 Status: F Source: [facility] 1:16 PM [facility] REPOSITORY [facility] Imaging Services [address] [facility] [address] Abdomen/Pelvis W IV Cont ONLY MR#: [id number] Acct: [id number] Name: NICKI DELACRUZ Rep #: [id number] : 1965 F 52 From: Georgina Edward MD PCP: RIK GONZALEZ Status: REG ER Study: Abdomen/Pelvis W IV Cont ONLY Date of Exam: 11/20/17 Exam# [id number] Ordering Dr: Jaida Siu CT Abdomen And Pelvis W/ Contrast INDICATION: PT HAD ARETHA ON TUESDAY, RUQ PAIN, RT SHOULDER AND BACK PAIN, REDNESS AROUND INCISIONS COMPARISON: None TECHNIQUE: Axial CT imaging of the abdomen and pelvis with IV contrast. Coronal and sagittal reformatted images. 75 mL of Isovue-370 were given intravenously. FINDINGS: Visualized lung bases are clear. The heart size is normal. The liver and spleen are normal in size. The gallbladder is surgically absent. There is some fat stranding in the gallbladder fossa and in the subcutaneous fat, suggestive of recent cholecystectomy. There is no abnormal fluid collection in the surgical bed and the liver demonstrates homogeneous enhancement. The kidneys enhance contrast symmetrically bilaterally and are without evidence of hydronephrosis. Urinary bladder is within normal limits. Bowel loops are nondistended. Appendix is unremarkable. Small amount of free fluid is seen in the pelvis. CT/Abdomen/Pelvis W IV Cont ONLY IMPRESSION: Findings suggestive of recent cholecystectomy. No abnormal fluid collection or other postsurgical complications identified. Small amount of free fluid in the pelvis. at 1507 Reported and signed by: Georgina Edward MD Electronically Signed: Georgina Edward MD at 14:06 EST Tel , Service support , CC: Jaida Siu; RIK GONZALEZ Clam Digger: Signed CTA CHEST W/WO Observed: 11/20/2017 Status: F Source: [place] CONTRAST 1:16 PM [facility] REPOSITORY [facility] Imaging Services [address] [place] [address] CTA Chest W/WO Contrast MR#: [id number] Acct: [id number] Name: NICKI DELACRUZ Rep #: [id number] : 1965 F 52 From: Georgina Edward MD PCP: RIK GONZALEZ Status: REG ER Study: CTA Chest W/WO Contrast Date of Exam: 11/20/17 Exam# [id number] Ordering Dr: Jaida Siu CTA Chest WO/W Contrast INDICATION: PT HAD ARETHA ON TUESDAY, RUQ PAIN, RT SHOULDER AND BACK PAIN, REDNESS AROUND INCISIONS COMPARISON: None TECHNIQUE: High resolution axial CT imaging of the chest during intravenous contrast administration, CTA protocol. Multiplanar and MIP 3D reformatted images. 75 mL of Isovue-370 were given intraveniously. Radiation dose optimization technique applied. FINDINGS: There is no evidence of pulmonary arterial filling defect to suggest PE. Aortic arch is unremarkable. Heart size is mildly enlarged. Mild atelectatic changes are seen in the dependent portions of the lower lobes, the lungs are otherwise clear. CT/CTA Chest W/WO Contrast IMPRESSION: No evidence of PE or aortic dissection. Mild cardiomegaly. Mild atelectatic changes in the dependent portions of the lower lobes, lungs otherwise clear. at 1510 Reported and signed by: Georgina Edward MD Electronically Signed: Georgina Edward MD at 14:08 EST Tel , Service support , CC: Jaida Siu; RIK GONZALEZ Clam Digger: Signed PROGRESS Observed: 11/20/2017 Status: COMPLETED Source: [place] 11:44 AM [facility] REPOSITORY HNO ID: [id number] Author: Amira Fairbanks Service: (none) Author Type: Nurse Practitioner Type: Progress Notes Filed: 11/20/2017 11:47 AM Note Text: Patient had lap aretha on 11/16, reports RUQ abdominal pain and possible infected lap sites. She had called in to surgeon's office on 11/18 with these complaints, see phone encounter in [facility]. Patient was advised by surgeon to be evaluated in ER for possible biliary leak. Patient states she did not go to ER and continues to have moderate to severe RUQ pain. She was advised that due to potential for numerous and possibly life threatening complications she could not be treated in the urgent care and strongly recommended to go to ER. JESSICA Park Observed: 11/18/2017 Status: COMPLETED Source: [place] 12:00 AM [facility] REPOSITORY Telephone (GENCofio SoftwareJose J) NICKI DELACRUZ ([id number]) 1965 F NFR Date Time Provider Department 11/18/17 DULCE HOOVER During your visit today, we recorded the following information about you: Grecia Boykin RN 11/18/2017 1:17 PM Signed Patient telephone call. Lap aretha 11/16/17 Chief Complaint: Hurts to take deep breath Duration: since yesterday, pain is not worsening Symptoms: Noticed pain to RUQ under the rib cage when taking a deep- slight shortness of breath, hurts to cough Rates pain 8/10 at worst Pain does not radiate to back or shoulders C/O nausea Afebrile. no chills Incisions healing well Not a history of smoking Has not had a BM since surgery C/O some abdominal bloating Has noticed itchiness to skin started last night Has been burping and passing gas some. Has been taking stool softener Tx/Intervention at home: Is taking pain meds- one oxycodone every 4 hours and ibuprofen 600 mg every 10 hours Advice/Support Given: Other: Wants a refill of percocet Please advise. Patient is requesting a return call from our office. [phone] (home) [phone] (work) [phone] (cell) Grecia Boykin RN 11/18/2017 1:27 PM S[address] Spoke with DR Landaverde and patient is advised to go to ER for evaluation and to rule out bile leak. Patient plans to go to [facility] when her ride is avialable in next half hour. Provided fax number to have records sent for Dr Hoover to review. Has post op appt with Dr Hoover on 12/01/17. Saran Landaverde MD 11/18/2017 2:53 PM Signed Information as noted-Will follow-up based on outcome of the evaluation. Dulce Hoover MD 11/19/2017 11:21 AM Signed April - please call to reassess. Grecia Boykin RN 11/22/2017 8:39 AM Addendum Voice message left for patient regarding message per MD. Advised to call office if further questions or concerns. Phone number provided. Advised to keep f/u appt as scheduled on 12/01/17. MD message noted. Encounter closed. Grecia Boykin RN 11/22/2017 9:15 AM Signed Patient telephone call. She had gone to [facility] and they ruled out bile leak. C/O redness around incision like a rash. She went to [facility] ER and doctor prescribed an antibiotic and since then there are now blisters around the incisions and ANDquot; bumpy rashANDquot;. C/O oozing of creamy yellow pink drainage to umbilical incision and other incisions . C/O itching and pain to incisions Rates pain 4/10. Denies fevers or chills. Appt made for evaluation with JESSICA Acevedo today. Allergies As of Date: 11/18/2017 Noted Allergy Reaction CITALOPRAM 09/07/2017 16 - Unknown DUST 09/08/2005 5 - Intolerance MOLD 09/08/2005 5 - Intolerance PNEUMOVAX 23 (PNEUMOCOCCAL 23-DAWIT*11/20/2013 7 - Swelling Comments: tongue swollen arm POLLEN 09/08/2005 5 - Intolerance PROPRANOLOL 01/25/2007 1 - Mental Status Change SMOKE 09/08/2005 5 - Intolerance TETRACYCLINE 09/08/2005 5 - Intolerance Comments: CRAMPING Date Reviewed: 11/16/2017 Reviewed by: Dasia (Rn) VINCENT Perry - Fully Assessed Reason for Visit: RUQ Pain [Other] Prescriptions as of 11/18/2017 Sig: OXYCODONE-ACETAMINOPHEN 5 MG-* Take 1 tablet by mouth every * ESTRADIOL 0.025 MG/24 HR SEMI* 1 Patch every Tuesday and * TRAZODONE 50 MG TABLET Take 1 tablet by mouth daily * LORAZEPAM 0.5 MG TABLET Take 1 tablet by mouth three * VENLAFAXINE ER 75 MG CAPSULE,* Take 1 capsule by mouth once * FLECAINIDE 50 MG TABLET Take 1 tablet by mouth twice * IBUPROFEN 600 MG TABLET Take 1 tablet by mouth every * ALBUTEROL SULFATE HFA 90 MCG/* Inhale 2 Puffs as instructed * CETIRIZINE 10 MG TABLET Take 1 tablet by mouth once d* Problem List As Of Date 11/18/2017 Noted Resolved Asthma [J45.909] Abnormal involuntary movements(781.0) [R25.8, R*INVALID FOR*11/13/2015 ADJUSTMENT DISORDER WITH DEPRESSED MOOD [F43.21]INVALID FOR* Acute gastritis without mention of hemorrhage [*INVALID FOR*11/13/2015 ASCUS favor benign [R87.610] INVALID FOR*11/17/2011 CERVICAL HPV DNA POSITIVE [R87.810] INVALID FOR* ADD (Attention Deficit Disorder) [F98.8] INVALID FOR* Insomnia, unspecified [G47.00] INVALID FOR* More... 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 Encounter Status:Closed by SARAN LANDAVERDE MD on 11/18/17 PT ED Observed: 11/16/2017 Status: COMPLETED Source: [place] 3:48 PM [facility] OTHER [facility] REPOSITORY HNO ID: [id number] Author: Dasia (Rn) VINCENT Perry Service: Nursing Author Type: Registered Nurse Type: Patient Education Filed: 11/16/2017 3:54 PM Note Text: POST OP LEARNING RESPONSE INSTRUCTION PROVIDED TO: Patient and family member METHOD OF INSTRUCTION: Individual instruction PATIENT / FAMILY RESPONSE: Verbalizes understanding of: POST OPERATIVE INSTRUCTIONS RELATED TO: ROUTINE MONITORING AND PROCEDURES: N/A, CARE TO PREVENT COMPLICATIONS: N/A, PAIN CONTROL: N/A, USE OF KNEE IMMOBILIZER: N/A, HOW TO GAIN MOTION BACK: N/A, PRE DISCHARGE: N/A, ADVERSE CONDITIONS TO INFORM YOUR DOCTOR: NA FOLLOW-UP PLAN: Patient instructed to call with any further issues SUPPLEMENTAL MATERIAL: None REFERRAL (RECOMMENDATION): None Electronically Signed By: Dasia Perry RN In [facility] EDUCATION TOPIC: PROCEDURE / SURGERY: Post-op Teaching: Med Administration PATIENT NAME: Nicki Delacruz PATIENT LOCATION: [place] [facility] [facility] READINESS TO LEARN COGNITIVE ABILITY: Alert and oriented MOTIVATION TO LEARN: Interested FAMILY SUPPORT: None - Unavailable/disinterested High - Very involved in pt care INSTRUCTION PROVIDED TO: Patient and family member PATIENT LEARNS BEST BY: Individual Instruction FACTORS AFFECTING LEARNING: None PHYSICAL LIMITATIONS AFFECTING LEARNING: None LEARNING RESPONSE DIAGNOSIS: ADULT: Well Adult PATIENT/FAMILY RESPONSE: Verbalizes understanding of: POST OPERATIVE INSTRUCTIONS RELATED TO: ROUTINE MONITORING AND PROCEDURES: N/A, CARE TO PREVENT COMPLICATIONS: N/A, PAIN CONTROL: N/A, USE OF KNEE IMMOBILIZER: N/A, HOW TO GAIN MOTION BACK: N/A, PRE DISCHARGE: N/A, ADVERSE CONDITIONS TO INFORM YOUR DOCTOR: NA METHOD OF INSTRUCTION: Individual instruction FOLLOW-UP PLAN: Patient instructed to call with any further issues INSTRUCTIONAL AIDS USED: NA SUPPLEMENTAL MATERIAL PROVIDED TO PATIENT: None REFERRAL (RECOMMENDATION): None Electronically Signed By: VINCENT Zarco POST Observed: 11/16/2017 Status: COMPLETED Source: [place] 3:48 PM [facility] OTHER [place] REPOSITORY HNO ID: [id number] Author: Jerson Wing Service: Anesthesiology Author Type: Anesthesiologist Type: Anesthesia PostOp Filed: 11/16/2017 5:03 PM Note Text: POST ANESTHESIA EVALUATION NOTE SERVICE DATE: 11/16/2017 SERVICE TIME: 1430 : 1965 Vitals: 11/16/17 1047 11/16/17 1321 Temp: 36.7 ?C (98.1 ?F) 36.6 ?C (97.9 ?F) 11/16/17 1400 11/16/17 1415 11/16/17 1430 11/16/17 1445 BP: 136/62 130/71 119/68 125/65 11/16/17 1400 11/16/17 1415 11/16/17 1430 11/16/17 1445 Pulse: 77 74 76 67 11/16/17 1400 11/16/17 1415 11/16/17 1430 11/16/17 1445 Resp: 16 16 16 16 11/16/17 1400 11/16/17 1415 11/16/17 1430 11/16/17 1445 SpO2: 100% 100% 98% 100% Validated Vital Signs: YES No apparent anesthetic complications. The patient is appropriately hydrated with stable respiratory and cardiovascular status. Patient has safe and adequate airway control. The patient has appropriate pain relief and no significant post operative nausea or vomiting. The patient has achieved baseline mental status. 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 Patient to use [facility] Bedside Delivery - YES 2. If fax, patient would like us to fax prescriptions to Pharmacy of choice a. Pharmacy: b. Location: c. Phone: 3. Insurance card on file - YES 4. Credit card for payment - YES No prescriptions yet. Please page [phone] upon discharge. PHARMACY BEDSIDE DELIVERY SERVICE Patient Name: Nicki Delacruz The marked outpatient medications were Filled at: [place] and delivered to the patient's bedside to [facility] Medication List START taking these medications X oxyCODONE-acetaminophen 5-325 mg tablet Commonly known as: PERCOCET Take 1 tablet by mouth every 4 hours as needed for up to 3 days. 1-2 tablets CONTINUE taking these medications albuterol HFA 90 mcg/actuation inhaler Commonly known as: VENTOLIN HFA Inhale 2 Puffs as instructed every 4 hours as needed for Wheezing/Shortness of Breath. cetirizine 10 mg tablet Commonly known as: ZyrTEC Take 1 tablet by mouth once daily. estradiol 0.025 mg/24 hr Commonly known as: NOBLE, VIVELLE-DOT flecainide 50 mg tablet Commonly known as: TAMBOCOR Take 1 tablet by mouth twice daily. ibuprofen 600 mg tablet Commonly known as: MOTRIN Take 1 tablet by mouth every 8 hours as needed for Pain. LORazepam 0.5 mg Tab Commonly known as: ATIVAN Take 1 tablet by mouth three times daily as needed. traZODone 50 mg tablet Commonly known as: DESYREL Take 1 tablet by mouth daily at bedtime. venlafaxine ER 75 mg 24 hr capsule Commonly known as: EFFEXOR XR Take 1 capsule by mouth once daily. Ana Maria Chinchilla (Simulation Software Engineer) PAGER: [phone] November 16, 2017 1:38 PM SURGICAL PATHOLOGY Observed: 11/16/2017 Status: F Source: [place] 1:15 PM [facility] OTHER CAMPUS REPOSITORY Specimen originated from [facility] Specimen #: [id number] Submitting Physician: Dulce Hoover M.D. FINAL DIAGNOSIS Gallbladder, cholecystectomy - Gallbladder with minimal chronic inflammation. - Cholesterolosis. TP/rw 11/18/2017 Mehdi Naranjo M.D. (Electronic Signature) SPECIMEN SUBMITTED A: GALLBLADDER CLINICAL DATA BILIARY DYSKINESIA, LMP: HYSTERECTOMY LAPAROSCOPIC CHOLECYSTECTOMY WITH GRAMS GROSS DESCRIPTION A. Received in formalin labeled gallbladder is a gallbladder measuring 6.7 x 2.7 x 2.7 cm. The serosal surface is smooth and glistening. The lumen contains bile. The wall averages 0.2 cm in thickness. The mucosa is bile stained and demonstrates longitudinally oriented yellow streaks more prominent on the summits of the ridges of the mucosa. No calculi are present. Fabrication Welder sections are submitted in formalin in cassette A1. LAMONT/glw 11/16/2017 Gross examination performed at [facility], [address] [place] [address] Date of Report: 11/18/2017 Date of Procedure: 11/16/2017 Date of Receipt: 11/16/2017 Submitted by: Dulce Hoover M.D. Location: [facility] Diagnostic interpretation performed at [facility], [address] [place] [address]. Performed By: #### PATHS #### [employer] [address] [place] [address] [phone] BRIEF OP NOT Observed: 11/16/2017 Status: COMPLETED Source: [place] 1:00 PM [facility] OTHER [facility]AMPUS REPOSITORY HNO ID: [id number] Author: Dulce Hoover Service: General Surgery Author Type: Physician Type: Brief Op Note Filed: 11/16/2017 1:11 PM Note Text: BRIEF OPERATIVE / PROCEDURE NOTE LOG ID: [id number] Surgery/Procedure Date: 11/16/2017 Incision/Procedure Start Time: 12:29 PM Incision Close/Procedure End Time: 1:04 PM Surgeon(s)/Proceduralist(s) and Rat Farmer(s): Surgeon(s) and Role: * Dulce Hoover - Primary Physician Rat Farmer: Judy Ross Procedure(s): lap aretha w/ ioc Anesthesia: General Findings: see report Estimated Blood Loss: min Specimens: 1 Complications: None Pre-Op/Pre-Procedure Diagnosis: biliary dyskinesia Post-Op/Post-Procedure Diagnosis: same # [id number] SIGNATURE: Dulce Hoover MD PATIENT NAME: Nicki Delacruz DATE: November 16, 2017 TIME: 1:00 PM PAGER/CONTACT #: [phone] CHOLANGIOGRAM INTRAOP Observed: 11/16/2017 Status: F Source: [place] 12:41 PM [facility] REPOSITORY * * *Final Report* * * DATE OF EXAM: Nov 16 2017 12:41PM MDR 5421 - XR CHOLANGIOGRAM INTRAOP / PROCEDURE REASON: REDUCED GALLBLADDER EJECTION FRACTION , RUQ PAIN * * * * Physician Interpretation * * * * INDICATION: REDUCED GALLBLADDER EJECTION FRACTION , RUQ PAIN TECHNIQUE: Cine run(s) performed in the operating room by the surgeon. FLUOROSCOPY TIME: 0:05 FINDINGS: There is good opacification of the extrahepatic biliary tree. No persistent filling defects, strictures, or obstruction are seen. Contrast drains freely into the duodenum. IMPRESSION: Negative Clam Digger: KLARISSA Transcribe Date/Time: Nov 16 2017 1:51P Dictated by : NAYE WEISS MD This examination was interpreted and the report reviewed and electronically signed by: NAYE WEISS MD on Nov 16 2017 1:58PM EST [id number] [id number] PREOP Observed: 11/16/2017 Status: COMPLETED Source: [place] 11:16 AM [facility] REPOSITORY HNO ID: [id number] Author: Jerson Wing Service: Anesthesiology Author Type: Anesthesiologist Type: Anesthesia PreOp Filed: 11/16/2017 11:17 AM Note Text: ANESTHESIOLOGY DAY OF SURGERY NOTE SERVICE DATE: 11/16/2017 SERVICE TIME: 11:16 AM : 1965 Procedure(s) (LRB): LAPAROSCOPIC CHOLECYSTECTOMY WITH GRAMS (N/A) Surgeon(s): Dulce E Hoover Estimated body mass index is 27.62 kg/(m2) as calculated from the following: Height as of 11/09/17: 157.5 cm (5' 2). Weight as of 11/09/17: 68.5 kg (151 lb). Most recent hematocrit and potassium results: Hematocrit 40.9 11/09/2017 Potassium 4.2 11/09/2017 ANES DOS/PREOP NOTE: Vitals: 11/16/17 1047 BP: 119/65 Pulse: 62 Resp: 18 Temp: 36.7 ?C (98.1 ?F) TempSrc: Temporal Artery SpO2: 99% ACTIVE PROBLEM LIST Asthma Adjustment Disorder With Depressed Mood Cervical High 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 Positive Add (Attention Deficit Disorder) Insomnia, Unspecified Rapid Palpitations Gdlkx-Bqvshzivw-Jbuzg (Wpw) Syndrome Anxiety Primary Insomnia Stress Incontinence in Female Encounter for Screening Colonoscopy 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 PAST MEDICAL HISTORY Diagnosis Date - Allergic rhinitis due to other allergen - Encounter for insertion or removal of intrauterine contraceptive device 08/30/2007 Mirena, removed March 10 - Other anxiety states - Stress incontinence, female - Unspecified asthma(493.90) - WPW (Nprlt-Ygxzhkqrk-Sarkv syndrome) PAST SURGICAL HISTORY Procedure Laterality Date - DELIVERY ONLY 85, 88,92 , low cervical X3 - ENLARGE BREAST WITH IMPLANT 11/2007 Breast augmentation - IUD 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 08/30/2007 Mirena - removed - OOPHORECTOMY, PART/TOTAL UNILAT/BILAT 2016 - PAST SURGICAL HISTORY OF 11/2015 bladder sling - REMOVE TONSILS/ADENOIDS,<12 Y/O 1968 - S PK LAVH [id number] 2014 lavh RICKY biltareal salpingectomy - SVT ABLATION W/ EP COMPLETE 11/24/2016 FAMILY HISTORY Problem Relation Age of Onset - Asthma Father - Emphysema Paternal Grandmother - Seizures Paternal Grandmother - Cancer Paternal Grandfather PROSTATE CANCER, [place] - Asthma Son - Asthma Daughter - Seizures Brother wpw Social History: Social History Substance Use Topics - Smoking status: Never Smoker - Smokeless tobacco: Never Used - Alcohol use Yes Comment: Occasionally No current facility-administered medications on file prior to encounter. Current Outpatient Prescriptions on File Prior to Encounter: traZODone (DESYREL) 50 mg tablet Take 1 tablet by mouth daily at bedtime. LORazepam (ATIVAN) 0.5 mg tab Take 1 tablet by mouth three times daily as needed. flecainide (TAMBOCOR) 50 mg tablet Take 1 tablet by mouth twice daily. cetirizine (ZYRTEC) 10 mg tablet Take 1 tablet by mouth once daily. venlafaxine ER (EFFEXOR XR) 75 mg 24 hr capsule Take 1 capsule by mouth once daily. ibuprofen (MOTRIN) 600 mg tablet Take 1 tablet by mouth every 8 hours as needed for Pain. albuterol HFA (VENTOLIN HFA) 90 mcg/actuation inhaler Inhale 2 Puffs as instructed every 4 hours as needed for Wheezing/Shortness of Breath. Current Facility-Administered Medications: lactated ringers infusion 5-30 mL/hr INTRAVENOUS CONTINUOUS Radha (Application Spec) Kristina Last Rate: 30 mL/hr at 11/16/17 1106 30 mL/hr at 11/16/17 1106 promethazine 12.5 mg tab(s) (PHENERGAN) 12.5 mg ORAL NOW Jerson Wing scopolamine 1 mg over 3 days 1 Patch (TRANSDERM-SCOP) 1 Patch TRANSDERMAL q 72 HR Jerson Wing And [START ON 11/19/2017] scopolamine - REMOVE PATCH OTHER q 72 HR Jerson Wign And scopolamine - VERIFY patch OTHER q 8 H Jerson Wing Allergies: ALLERGIES Allergen Reactions - Citalopram Unknown - Dust Intolerance - Mold Intolerance - Pneumovax 23 [Pneum* Swelling tongue swollen arm - Pollen Intolerance - Propranolol Mental Status Change - Smoke Intolerance - Tetracycline Intolerance CRAMPING DOS EXAM: Adequate NPO Status: Yes Anesthetic Risks, Benefits, Alternatives, Personnel and Consent Discussed: Yes Patient agrees to proceed: Yes Previous Anesthesia: No history of adverse event Airway Assessment: MP 2; Neck ROM: Full ROM without neurologic symptoms; Airway Evaluation: No significant abnormalities Symptoms of Sleep Apnea: None Dentition: Teeth intact Additional Physical Exam: Lungs: Patient health status unchanged since recent history and physical. See history and physical for exam findings. Cardiac: Patient health status unchanged since recent history and physical. See history and physical for exam findings. Additional Pertinent Findings: N/A Blood Products: Not anticipated for this procedure Anesthetic Plan: General Anesthetic Monitoring: Standard ASA Monitors Pain Management Plan: Parenteral or Oral ASA Class: 2 Other Medical Problems: None Chronic Beta Soraya medication administered within 24 hours: N/A I have interviewed and examined the patient. I have reviewed the medical record and/or the pre-anesthesia evaluation, pertinent labs, and test results. Significant changes in the patient's condition since the History and Physical, not otherwise documented in primary service progress notes: No This contains updated information obtained within 48 hours of Surgery/Procedure. SIGNATURE: Jerson Wing MD PATIENT NAME: Nicki Delacruz DATE: November 16, 2017 TIME: 11:16 AM CSN: [id number] OPERATIVE NO Observed: 11/16/2017 Status: COMPLETED Source: [place] 12:00 AM CLINIC OTHER CAMPUS REPOSITORY O ID: [id number] Author: Dulce Hoover Service: General Surgery Author Type: Physician Type: Operative Report Filed: 11/19/2017 11:13 AM Note Text: [facility]- Operative Report NICKI DELACRUZ : 1965 AGE: 52 SEX: F ACCTNUM: [id number] [facility]: [facility] LOCATION: [facility] [place] ATTENDING PHYSICIAN: Dulce Hoover M.D. DATE OF PROCEDURE: 11/16/2017 SURGEON: Dulec Hoover M.D. WILDLIFE SCIENCE PROFESSOR: Judy Ross (robert). ANESTHESIA: General. PREOPERATIVE DIAGNOSIS(ES): Biliary dyskinesia. POSTOPERATIVE DIAGNOSIS(ES): Biliary dyskinesia. NAME OF OPERATION: Laparoscopic cholecystectomy with intraoperative cholangiogram using fluoroscopy. INDICATIONS: The patient is a 52-year-old female, who presents with symptomatic biliary dyskinesia. She now presents for laparoscopic cholecystectomy. Risks including bleeding, infection, common bile duct injury, and bile leak were explained and she would like to proceed. ESTIMATED BLOOD LOSS: Minimal blood loss. PROCEDURE START TIME: 12:29 p.m. PROCEDURE END TIME: 1:04 p.m. PROCEDURE: The patient was identified and brought to the operating room, placed in supine position. After general anesthesia was obtained, the abdomen was prepped and draped in sterile fashion. The abdominal cavity was entered just below the umbilicus using the Veress technique. The abdomen was then insufflated with CO2 gas to a pressure of 15 mmHg. A 10-mm trocar was then placed without complication. The abdomen was then inspected. There was no pelvic pathology seen. She was placed into the reverse Trendelenburg position with the left side down. Two 5-mm trocars were placed in right upper quadrant, one in the epigastric area under direct visualization without complication. The liver was normal. The gallbladder was then identified, retracted upwards. There were no adhesions. The base of the gallbladder was retracted laterally. The cystic duct was then identified and from surrounding tissue using the [place] dissector. Once the duct was isolated and noted to be directed into the gallbladder, a clip was placed proximally. The duct was then partially divided with scissors. The cholangiocatheter was carefully inserted in the distal cystic duct. The duct was aspirated of air and flushed with saline without evidence for leak. The cholangiogram was then performed with Omnipaque and fluoroscopy. There was immediate filling of the intra and extrahepatic biliary system and duodenum. There were no filling defects seen. Three clips were then placed on the distal cystic duct, and the duct was divided with scissors. The cystic artery was then identified, clipped, and divided. The gallbladder was then removed from the liver bed using the hook Bovie. There was no spillage of bile or stones. The gallbladder was then placed into an EndoCatch bag and removed through the umbilical port site. Liver bed was again inspected. There was no evidence for bleeding or bile leaking. The 10-mm trocar fascia was closed using #1 Maxon. Skin edges were approximated with 5-0 Vicryl and Exofin. All counts were correct at the end of the case. The patient tolerated the procedure well. She was taken to recovery room in good condition. Dulce Hoover M.D. General Surgery KED:[id number] NURSING PROG Observed: 11/10/2017 Status: COMPLETED Source: [place] 12:06 PM CLINIC OTHER CAMPUS REPOSITORY HNO ID: [id number] Author: Paul (Rn) VINCENT Erazo Service: (none) Author Type: Registered Nurse Type: Nursing Progress Note Filed: 11/10/2017 12:11 PM Note Text: PACC Nurse Progress Note History AND Physical: PACC Visit Date: 11/09 Original HANDP Date: N/A ED visit Date: N/A Outside HANDP Scanned Date: N/A Labs Within Last 6 Months: CBC: Date 11/09 BMP/CMP: Date 11/09 Results within normal limits Imaging Within Last 12 Months: N/A Cardiac Testing: EKG in last 12 Months: Yes: Date: 11/04-, Comment: confirmed Also has EKG reading, but no waveform from 06/2017 scanned 07/2017 Last Menstrual Period: LMP Date: 2013 Postmenopausal >1yr: Yes, S/P Hysterectomy: No BMI Percentile (PEDS): N/A Risk Assessment: N/A Anesthesia Review: N/A Narrative: N/A Pre-op Considerations: N/A Chart Check: COMPLETED Paul Erazo RN November 10, 2017 12:06 PM CBC AND DIFFERENTIAL Collected: 11/09/2017 Status: F Source: [place] 2:25 PM [facility] [place] REPOSITORY TYPE CODE TESTS RESULT OUT OF REFERENCE UNITS RANGE LAB WBC 3.70-11.00 k/uL WBC 8.04 LAB RBC 3.90-5.20 m/uL RBC 4.53 LAB HGB 11.5-15.5 g/dL Hemoglobin 13.0 LAB HCT 36.0-46.0 % Hematocrit 40.9 LAB MCV 80.0-100.0 fL MCV 90.3 LAB MCH 26.0-34.0 pG MCH 28.7 LAB MCHC 30.5-36.0 g/dL MCHC 31.8 LAB RDWCV 11.5-15.0 % RDW-CV 13.4 LAB PLTCT 150-400 k/uL Platelet Count 366 LAB MPV 9.0-12.7 fL MPV 10.6 LAB ANEUT % Neut% 53.0 LAB AANEUT 1.45-7.50 k/uL Abs Neut 4.27 LAB ALYMP % Lymph% 37.6 LAB AALYMP 1.00-4.00 k/uL Abs Lymph 3.02 LAB AMONO % Person% 8.0 LAB AAMONO <0.87 k/uL Abs Person 0.64 LAB AEOS % Eosin% 0.9 LAB AAEOS <0.46 k/uL Abs Eosin 0.07 LAB ABASO % Baso% 0.5 LAB AABASO <0.11 k/uL Abs Baso 0.04 LAB AUNRBC 0 /100 WBC NRBCs 0.0 LAB ABNRBC <0.01 k/uL Absolute nRBC <0.01 LAB DTYP DTYPE Auto Diff Performed By: #### CBCDIF, CMP #### [facility] [address] [place], [place] [address] COMP METABOLIC PANEL Collected: 11/09/2017 Status: F Source: [place] 2:25 PM [facility] REPOSITORY TYPE CODE TESTS RESULT OUT OF REFERENCE UNITS RANGE LAB TP 6.3-8.0 g/dL Protein, Total 7.5 LAB ALB 3.9-4.9 g/dL Albumin 4.8 LAB CA 8.5-10.2 mg/dL Calcium, Total 10.2 LAB TBIL 0.2-1.3 mg/dL Bilirubin, Total 0.2 LAB ALKP 32-117 U/L Alkaline Phosphatase 57 LAB AST 13-35 U/L AST 20 LAB GLU 74-99 mg/dL Low Glucose 68 Result Comment: The [place] Diabetes Association (ADA) provides guidance for cutoff values for fasting glucose and random glucose. The ADA defines fasting as no caloric intake for at least 8 hours. Fas ting plasma glucose results between 100 to 125 mg/dL indicate increased risk for diabetes (prediabetes). Fasting plasma glucose results greater than or equal to 126 mg/dL meet the criteria for diagnosis of diabetes. In the absence of unequivocal hyperglycemia, results should be confirmed by repeat testing. In a patient with classic symptoms of hyperglycemia or hyperglycemic crisis, random plasma glucose results greater than or equal to 200 mg/dL meet the criteria for diagnosis of diabetes. Reference: Standards of Medical Care in Diabetes 2016, [place] Diabetes Association. Diabetes Care. 2016.39(Suppl 1). LAB BUN 7-21 mg/dL BUN 15 LAB CRET 0.58-0.96 mg/dL Creatinine High 1.15 LAB NA 136-144 mmol/L Sodium 142 LAB K 3.7-5.1 mmol/L Potassium 4.2 LAB CL 97-105 mmol/L Chloride 101 LAB CO2 22-30 mmol/L CO2 25 LAB AGAP 9-18 mmol/L Anion Gap 16 LAB ALT 7-38 U/L ALT 16 LAB GFRAA eGFR- Amer. >60 LAB GFRNAA . eGFR-All Other Races 50 Result Comment: eGFR (Estimated GFR) Units of measure: mL/min/1.73 meters squared eGFR is derived from the reexpressed MDRD Study equation using the following parameters: serum creatinine, age, gender and race. The creatinine assay has been calibrated to be traceable to IDMS. An eGFR <60 mL/min/1.73m2 for >3 months is consistent with chronic kidney disease. Refer to KDOQI guidelines for clinical interpretation. In patients with unstable renal function, e.g. those with acute kidney injury, the eGFR may not accurately reflect actual GFR. Performed By: #### CBCDIF, CMP #### [facility] [address] [place], [place] [address] HISTORY PHYSICAL Observed: 11/09/2017 Status: COMPLETED Source: [place] 1:52 PM CLINIC OTHER CAMPUS REPOSITORY HNO ID: [id number] Author: Rosalie Mcmullen) [place] Service: (none) Author Type: Physician Rat Farmer Type: HANDP Filed: 11/09/2017 2:56 PM Note Text: HISTORY AND PHYSICAL EXAMINATION SERVICE DATE: 11/09/2017 SERVICE TIME: 1:52 PM PRIMARY CARE PHYSICIAN: Andrew Gonzalez MD REASON FOR VISIT: Nicki Delacruz is a 52 year old female who is scheduled for Lap cholecystectomy at the request of Dr. Dulce Hoover for consultation. My final recommendation will be communicated back to the requesting physician by way of shared medical record or letter. 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 The pain is worse after eating high fat foods and it causes cramping and diarrhea as well. Better with bland foods usually. She takes Tums and Prilosec and Motrin and Tylenol. HIDA scan done and chronic cholecystitis. PAST MEDICAL HISTORY Diagnosis Date - Allergic rhinitis due to other allergen - Encounter for insertion or removal of intrauterine contraceptive device 08/30/2007 Mirena, removed March 10 - Other anxiety states - Stress incontinence, female - Unspecified asthma(493.90) - WPW (Hdrwz-Wmwdaaaeo-Gzief syndrome) PAST SURGICAL HISTORY Procedure Laterality Date - DELIVERY ONLY 85, 88,92 , low cervical X3 - ENLARGE BREAST WITH IMPLANT 11/2007 Breast augmentation - IUD 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 08/30/2007 Mirena - removed - PAST SURGICAL HISTORY OF 11/2015 bladder sling - REMOVE TONSILS/ADENOIDS,<12 Y/O 1968 - S [address] LAVH [id number] 2013 lavh RICKY biltareal salpingectomy - SVT ABLATION W/ EP COMPLETE FAMILY HISTORY Problem Relation Age of Onset - Asthma Father - Emphysema Paternal Grandmother - Seizures Paternal Grandmother - Cancer Paternal Grandfather PROSTATE CANCER, OR - Asthma Son - Asthma Daughter - Seizures Brother wpw SOCIAL HISTORY: Social History Marital status: Spouse name: Years of education: 15 Number of children: 3 Occupational History Occupation Employer Comment [employer] Social History Main Topics Smoking status: Never Smoker Smokeless status: Never Used Alcohol use: Yes Comment: Occasionally Drug use: No Sexual activity: Yes Partners with: Male control/protection: Other, Surgical Comment: Hysterectomy Social History Narrative OAR[facility] report reviewed February 16, 2012 Gael Bravo MD Prior to Admission medications as of 11/02/17 0845 Medication Sig Last Dose Taking traZODone (DESYREL) 50 mg tablet Take 1 tablet by mouth daily at bedtime. LORazepam (ATIVAN) 0.5 mg tab Take 1 tablet by mouth three times daily as needed. venlafaxine ER (EFFEXOR XR) 75 mg 24 hr capsule Take 1 capsule by mouth once daily. amoxicillin (AMOXIL) 875 mg tablet Take 1 tablet by mouth every 12 hours. flecainide (TAMBOCOR) 50 mg tablet Take 1 tablet by mouth twice daily. ibuprofen (MOTRIN) 600 mg tablet Take 1 tablet by mouth every 8 hours as needed for Pain. fluticasone (FLONASE) 50 mcg/actuation nasal spray 2 SPRAYS IN EACH NOSTRIL DAILY DIRECTED albuterol HFA (VENTOLIN HFA) 90 mcg/actuation inhaler Inhale 2 Puffs as instructed every 4 hours as needed for Wheezing/Shortness of Breath. cetirizine (ZYRTEC) 10 mg tablet Take 1 tablet by mouth once daily. No medication comments found. ALLERGIES Allergen Reactions - Citalopram Unknown - Dust Intolerance - Mold Intolerance - Pneumovax 23 [Pneum* Swelling tongue swollen arm - Pollen Intolerance - Propranolol Mental Status Change - Smoke Intolerance - Tetracycline Intolerance CRAMPING REVIEW OF SYSTEMS: PAIN ASSESSMENT: General: No weight loss, malaise or fevers. Neuro: No history of TIA's, stroke, PLYCOR OPERATOR tumor, impaired sensorium, hemiplegia, paraplegia or quadraplegia. No neurological symptoms or problems. Respiratory: Positive for Asthma, mild intermittent- flares in summer months, Negative for COPD, Home O2, Tobacco Use, URI < 2 weeks Cardiovascular: Positive for: WPW syndrome and ablation attempted and failed in 11/2016. + palpitations and occasional tachycardia and bradycardia. , Negative for Recent OR, Chest Pain, Valvular Heart Disease, DVT/PE GI: No history of GI symptoms or problems. No history of esophageal varices, recent ascites, or ETOH greater than 2 drinks per day. : No history of dysuria, frequency or incontinence,, stones or chronic kidney disease STEREO 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: Negative for abnormal vaginal bleeding, abnormal vaginal discharge. : N/A, Patient's last menstrual period was 05/06/2014. Endocrine: No history of diabetes. Has not taken steroids within the past 30 days. No history of endocrinological symptoms or problems. Hematology: No history of bleeding or clotting disorder. Pt is not taking anti-coagulation or platelet medications. No history of hematological symptoms or problems. Oncology: No history of CA metastasis, chemo within 30 days, or radiotherapy within 90 days. Has not lost 10% of body wt in 6 months. No history of oncological symptoms or problems. Psych: Anxiety, Depression Musculoskeletal: Negative for joint pain or swelling, back pain or muscle pain. Skin: Negative for lesions, rash and itching. Objective PHYSICAL EXAM: VITALS: BP 139/85 Pulse 69 Temp (Src) 98.6 (Tympanic) Resp 16 Ht 5' 2 (1.58m) Wt 151 lb (68.5kg) SpO2 98% LMP 05/06/2014 BMI 27.61 kg/(m2). General: Alert and oriented, No acute distress, Healthy appearance Skin: Normal color, no rash, no lesions. HEENT: EOM, pupils equal, round and reactive. Cardiovascular: Normal S1 AND S2, no rubs, murmurs or gallops. No JVD. Pulse regular. Lungs: Normal breath sounds, no wheezes or crackles., No chest deformities or chest wall tenderness. Abdomen: Tender RUQ pain Extremities: No deformity, no edema or tenderness, no joint swelling or clubbing. Neurological: Normal cognition and motor skills. Gait normal. No weakness or sensory deficit. Pulses: Carotid and radial pulses normal +2. Diagnostic tests reviewed for today's visit: Lab Value Units Date High Low HB No results within date range. HCT No results within date range. WBC No results within date range. PLT No results within date range. NA No results within date range. K No results within date range. GLUC No results within date range. BUN No results within date range. CREAT No results within date range. PTSEC No results within date range. INR No results within date range. APTT No results within date range. ALT No results within date range. AST No results within date range. TBILI No results within date range. TSH No results within date range. Lab Value Units Date High Low HCGQT No results within date range. UHCG No results within date range. HCG, BODY* No results within date range. Lab Value Units Date High Low ABORHD No results within date range. ABSCREEN No results within date range. No results found for: HBA1C Most recent labs Assessment ASSESSMENT Asthma - Condition is stable, inhalers in the summer only WPW- ablation attempted in 11/24/16 and failed, scheduled for second opinion - palpitations controlled on Rx PONV and dizziness post op METS: Participate in moderate recreational activities, such as golf, bowling, dancing, doubles tennis, or throwing a baseball or football (6.00 METs) ASA Class: 3 ANESTHESIA FINDINGS: Intubation History: No history of difficult intubation Significant Anesthesia Considerations: Postop nausea/vomiting mild nausea Airway Exam: General: Normal appearance Mallampati Score is CLASS I ULBT: Class I - Lower incisors can bite the upper lip above the norman line Neck: Normal appearance and function, Distance from hyoid to mentum during neck extension is at least 3 finger breaths Mouth: Normal tongue size Dentition: Intact Airway History: No abnormal airway history STOP BANG Score: Criteria: Age over 50 (52 year old) Score = 1 PLAN This patient is optimally prepared for surgery pending LABS. CONSULTS: Patient does not require consults for optimization at this time. The Following Tests/Procedures Have Been Initiated: Orders Placed This Encounter CBC + DIFF COMP METABOLIC PANEL estradiol (ARELI DICKEY-DOT) 0.025 mg/24 hr Si Patch every Tuesday and Tuesday. Planned Anesthetic: General Instructions Given to Patient: Patient given verbal and written preop instructions and voices comprehension and compliance. SIGNATURE: Rosalie Franklin PA-C PATIENT NAME: Nicki Delacruz DATE: November 09, 2017 TIME: 1:52 PM PAGER/CONTACT #: [email or web address] Observed: 11/02/2017 Status: COMPLETED Source: [place] 8:45 AM [facility] REPOSITORY [facility] ID: [id number] Author: Dulce Hoover Service: (none) Author Type: Physician Type: Progress Notes Filed: 11/03/2017 8:52 AM Note Text: PROGRESS NOTES PATIENT NAME: Nicki Delacruz Assessment ASSESSMENT/PLAN: (K82.8) Biliary dyskinesia (primary encounter diagnosis) Had a long discussion with Nicki today regarding the findings on her HIDA scan as well as her symptoms. Her symptoms are consistent with gallbladder dysfunction. We discussed proceeding with laparoscopic cholecystectomy.Risks, benefits and alternatives of proceeding with laparoscopic cholecystectomy were discussed with risks to include but not limited to hemorrhage, infection, possibility of common bile duct injury, possible intra-abdominal organ injury ,possible conversion to open. Patient expressed understanding and wishes to proceed. She was given Percocet to get her through until the surgery. Office Visit on 11/01/17 -oxyCODONE-acetaminophen (PERCOCET) 5-325 mg tablet SUBJECTIVE CHIEF COMPLAINT: Patient presents with: Consult: Gallbladder INTERVAL HISTORY OF PRESENT ILLNESS: Nicki is a 52-year-old female presents with a 2 year history of abdominal complaints. She has had intermittent episodes of right-sided abdominal pain that radiates towards her back. This is associated with nausea. It is worse with eating food. Over the last 6 months the pain has become more intense and the nausea more significant. She has also had loose stools. The pain is now more constant. She also complains of worsening reflux. Workup including an ultrasound was negative. HIDA scan shows a decreased ejection fraction of 31%. She did feel worse after CCK injection. She presents today to discuss laparoscopic cholecystectomy. HISTORIES: PAST MEDICAL HISTORY Diagnosis Date - Allergic rhinitis due to other allergen - Encounter for insertion or removal of intrauterine contraceptive device 08/30/2007 Mirena, removed March 10 - Other anxiety states - Stress incontinence, female - Unspecified asthma(493.90) - WPW (Lnozl-Qfrdsjcud-Kbmik syndrome) PAST SURGICAL HISTORY Procedure Laterality Date - DELIVERY ONLY 85, 88,92 , low cervical X3 - ENLARGE BREAST WITH IMPLANT 11/2007 Breast augmentation - IUD 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 08/30/2007 Mirena - removed - PAST SURGICAL HISTORY OF 11/2015 bladder sling - REMOVE TONSILS/ADENOIDS,<12 Y/O 1968 - S PK LAV [id number] 2013 lavh RICKY biltareal salpingectomy - SVT ABLATION W/ EP COMPLETE ALLERGIES: Citalopram; Dust; Mold; Pneumovax 23 [Pneumococcal 23-Dawit Ps Vaccine]; Pollen; Propranolol; Smoke; Tetracycline MEDICATIONS: Current Outpatient Prescriptions: oxyCODONE-acetaminophen (PERCOCET) 5-325 mg tablet Take 1 tablet by mouth every 4 hours as needed for Pain for up to 3 days. traZODone (DESYREL) 50 mg tablet Take 1 tablet by mouth daily at bedtime. LORazepam (ATIVAN) 0.5 mg tab Take 1 tablet by mouth three times daily as needed. venlafaxine ER (EFFEXOR XR) 75 mg 24 hr capsule Take 1 capsule by mouth once daily. amoxicillin (AMOXIL) 875 mg tablet Take 1 tablet by mouth every 12 hours. flecainide (TAMBOCOR) 50 mg tablet Take 1 tablet by mouth twice daily. ibuprofen (MOTRIN) 600 mg tablet Take 1 tablet by mouth every 8 hours as needed for Pain. fluticasone (FLONASE) 50 mcg/actuation nasal spray 2 SPRAYS IN EACH NOSTRIL DAILY DIRECTED albuterol HFA (VENTOLIN HFA) 90 mcg/actuation inhaler Inhale 2 Puffs as instructed every 4 hours as needed for Wheezing/Shortness of Breath. cetirizine (ZYRTEC) 10 mg tablet Take 1 tablet by mouth once daily. No current facility-administered medications for this visit. FAMILY HISTORY Problem Relation Age of Onset - Asthma Father - Emphysema Paternal Grandmother - Seizures Paternal Grandmother - Cancer Paternal Grandfather PROSTATE CANCER, OR - Asthma Son - Asthma Daughter - Seizures Brother wpw Social History Marital status: Spouse name: Years of education: 15 Number of children: 3 Occupational History Occupation Employer Comment [employer] Social History Main Topics Smoking status: Never Smoker Smokeless status: Never Used Alcohol use: Yes Comment: Occasionally Drug use: No Sexual activity: Yes Partners with: Male control/protection: Other, Surgical Comment: Hysterectomy Social History Narrative OAR[facility] report reviewed February 16, 2012 Gael Bravo MD Reviewed and agreed with Review of Systems completed by the clinical staff. OBJECTIVE PHYSICAL EXAM: BP 167/91 Pulse 80 Ht 5' 2 (1.58m) Wt 145 lb (65.8kg) LMP 05/06/2014 BMI 26.51 kg/(m2). General: Well developed, well-nourished, in no distress HEENT: Normocephalic, atraumatic. Extraocular movements intact. Sclera are nonicteric. Heart: Regular rate and rhythm, no murmur Lungs: Clear to auscultation, without wheezes Abdomen: Soft, non tender, positive bowel sounds, no masses, no hernia Rectal: Not evaluated Extremities: No edema, no calf tenderness Neurologic: Alert, oriented, and appropriate. DATA: Diagnostic tests reviewed for today's visit: Ultrasound was negative. HIDA scan shows an ejection fraction of 31% consistent with biliary dyskinesia. Dulce Hoover MD PROGRESS Observed: 11/01/2017 Status: COMPLETED Source: [place] 2:00 PM [facility] REPOSITORY O ID: [id number] Author: Rika Parada LPN Service: (none) Author Type: (none) Type: Progress Notes Filed: 11/03/2017 8:52 AM Note Text: GENERAL:No weight loss, No malaise, No fevers HEENT:Negative for frequent or significant headaches, Positive for:, Chronic sinus problems CARDIOVASCULAR: Negative for chest pain, Negative for leg swelling, Negative for palpitaions, Positive for:, Heart trouble, WPW. RESPIRATORY:Negative for cough, wheezing or shortness of breath. GASTROINTESTINAL: Negative for blood in stools, Negative for black stools, Positive for:, Loss of appetitie, Change in bowel movements, Nausea or vomiting and Abdominal pain GENITOURINARY: No history of dysuria, frequency or incontinence. ENDOCRINE: None STEREO 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:Denies any concerns STEREO 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: Age of first period: 17 Number of pregnancies: 3 Number of live births: 0 Your age at of first child: NA Your age at start of menopause: 51, Hysterectomy Taking hormone replacement: Yes, for 6 months. Family History of Cancer: None MUSCULOSKELETAL: Positive for:, joint pain, back pain NEUROLOGIC:Positive for: Headaches Negative for focal numbness or weakness, headaches and dizziness or syncope. HEMATOLOGIC/LYMPHATIC/IMMUNOLOGIC:Positive for: and Bleeding or bruising tendancy CNOV Observed: 11/01/2017 Status: COMPLETED Source: [place] 2:00 PM [facility] REPOSITORY Office Visit (CANDIDO) NICKI DELACRUZ ([id number]) 1965 F NFR Date Time Provider Department 11/01/17 2:00 PM DULCE HOOVER During your visit today, we recorded the following information about you: Pulse Blood pressure Weight Height 80/minute 167/91 65.8 kg 1.575 m Rika Rojass TRAIN CONDUCTOR 11/03/2017 8:52 AM Signed GENERAL:No weight loss, No malaise, No fevers HEENT:Negative for frequent or significant headaches, Positive for:, Chronic sinus problems CARDIOVASCULAR: Negative for chest pain, Negative for leg swelling, Negative for palpitaions, Positive for:, Heart trouble, WPW. RESPIRATORY:Negative for cough, wheezing or shortness of breathANDquot;. GASTROINTESTINAL: Negative for blood in stools, Negative for black stools, Positive for:, Loss of appetitie, Change in bowel movements, Nausea or vomiting and Abdominal pain GENITOURINARY: No history of dysuria, frequency or incontinence. ENDOCRINE: None STEREO 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:Denies any concerns STEREO 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: Age of first period: 17 Number of pregnancies: 3 Number of live births: 0 Your age at of first child: NA Your age at start of menopause: 51, Hysterectomy Taking hormone replacement: Yes, for 6 months. Family History of Cancer: None MUSCULOSKELETAL: Positive for:, joint pain, back pain NEUROLOGIC:Positive for: Headaches Negative for focal numbness or weakness, headaches and dizziness or syncope. HEMATOLOGIC/LYMPHATIC/IMMUNOLOGIC:Positive for: and Bleeding or bruising tendancy Dulce Hoover MD 11/03/2017 8:52 AM Signed PROGRESS NOTES PATIENT NAME: Nicki Delacruz Assessment ASSESSMENT/PLAN: (K82.8) Biliary dyskinesia (primary encounter diagnosis) Had a long discussion with Nicki today regarding the findings on her HIDA scan as well as her symptoms. Her symptoms are consistent with gallbladder dysfunction. We discussed proceeding with laparoscopic cholecystectomy.Risks, benefits and alternatives of proceeding with laparoscopic cholecystectomy were discussed with risks to include but not limited to hemorrhage, infection, possibility of common bile duct injury, possible intra-abdominal organ injury ,possible conversion to open. Patient expressed understanding and wishes to proceed. She was given Percocet to get her through until the surgery. Office Visit on 11/01/17 -oxyCODONE-acetaminophen (PERCOCET) 5-325 mg tablet SUBJECTIVE CHIEF COMPLAINT: Patient presents with: Consult: Gallbladder INTERVAL HISTORY OF PRESENT ILLNESS: Nicki is a 52-year-old female presents with a 2 year history of abdominal complaints. She has had intermittent episodes of right-sided abdominal pain that radiates towards her back. This is associated with nausea. It is worse with eating food. Over the last 6 months the pain has become more intense and the nausea more significant. She has also had loose stools. The pain is now more constant. She also complains of worsening reflux. Workup including an ultrasound was negative. HIDA scan shows a decreased ejection fraction of 31%. She did feel worse after CCK injection. She presents today to discuss laparoscopic cholecystectomy. HISTORIES: PAST MEDICAL HISTORY Diagnosis Date - Allergic rhinitis due to other allergen - Encounter for insertion or removal of intrauterine contraceptive device 08/30/2007 Mirena, removed March 10 - Other anxiety states - Stress incontinence, female - Unspecified asthma(493.90) - WPW (Xqysk-Oiefghyui-Urhet syndrome) PAST SURGICAL HISTORY Procedure Laterality Date - DELIVERY ONLY 85, 88,92 , low cervical X3 - ENLARGE BREAST WITH IMPLANT 11/2007 Breast augmentation - IUD 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 08/30/2007 Mirena - removed - PAST SURGICAL HISTORY OF 11/2015 bladder sling - REMOVE TONSILS/ADENOIDS,ANDlt;13 Y/O 1968 - S PK LAVH [id number] 2013 lavh RICKY biltareal salpingectomy - SVT ABLATION W/ EP COMPLETE ALLERGIES: Citalopram; Dust; Mold; Pneumovax 23 [Pneumococcal 23-Dawit Ps Vaccine]; Pollen; Propranolol; Smoke; Tetracycline MEDICATIONS: Current Outpatient Prescriptions: oxyCODONE-acetaminophen (PERCOCET) 5-325 mg tablet Take 1 tablet by mouth every 4 hours as needed for Pain for up to 3 days. traZODone (DESYREL) 50 mg tablet Take 1 tablet by mouth daily at bedtime. LORazepam (ATIVAN) 0.5 mg tab Take 1 tablet by mouth three times daily as needed. venlafaxine ER (EFFEXOR XR) 75 mg 24 hr capsule Take 1 capsule by mouth once daily. amoxicillin (AMOXIL) 875 mg tablet Take 1 tablet by mouth every 12 hours. flecainide (TAMBOCOR) 50 mg tablet Take 1 tablet by mouth twice daily. ibuprofen (MOTRIN) 600 mg tablet Take 1 tablet by mouth every 8 hours as needed for Pain. fluticasone (FLONASE) 50 mcg/actuation nasal spray 2 SPRAYS IN EACH NOSTRIL DAILY DIRECTED albuterol HFA (VENTOLIN HFA) 90 mcg/actuation inhaler Inhale 2 Puffs as instructed every 4 hours as needed for Wheezing/Shortness of Breath. cetirizine (ZYRTEC) 10 mg tablet Take 1 tablet by mouth once daily. No current facility-administered medications for this visit. FAMILY HISTORY Problem Relation Age of Onset - Asthma Father - Emphysema Paternal Grandmother - Seizures Paternal Grandmother - Cancer Paternal Grandfather PROSTATE CANCER, OR - Asthma Son - Asthma Daughter - Seizures Brother wpw Social History Marital status: Spouse name: Years of education: 15 Number of children: 3 Occupational History Occupation Employer Comment [employer] Social History Main Topics Smoking status: Never Smoker Smokeless status: Never Used Alcohol use: Yes Comment: Occasionally Drug use: No Sexual activity: Yes Partners with: Male control/protection: Other, Surgical Comment: Hysterectomy Social History Narrative OARRS report reviewed February 16, 2012 Gael Bravo MD Reviewed and agreed with Review of Systems completed by the clinical staff. OBJECTIVE PHYSICAL EXAM: BP 167/91 Pulse 80 Ht 5' 2ANDquot; (1.58m) Wt 145 lb (65.8kg) LMP 05/06/2014 BMI 26.51 kg/(m2). General: Well developed, well-nourished, in no distress HEENT: Normocephalic, atraumatic. Extraocular movements intact. Sclera are nonicteric. Heart: Regular rate and rhythm, no murmur Lungs: Clear to auscultation, without wheezes Abdomen: Soft, non tender, positive bowel sounds, no masses, no hernia Rectal: Not evaluated Extremities: No edema, no calf tenderness Neurologic: Alert, oriented, and appropriate. DATA: Diagnostic tests reviewed for today's visit: Ultrasound was negative. HIDA scan shows an ejection fraction of 31% consistent with biliary dyskinesia. Dulce Hoover MD Referring Provider: ANDREW GONZALEZ [[id number]] Allergies As of Date: 11/01/2017 Noted Allergy Reaction CITALOPRAM 09/07/2017 16 - Unknown DUST 09/08/2005 5 - Intolerance MOLD 09/08/2005 5 - Intolerance PNEUMOVAX 23 (PNEUMOCOCCAL 23-DAWIT*11/20/2013 7 - Swelling Comments: tongue swollen arm POLLEN 09/08/2005 5 - Intolerance PROPRANOLOL 01/25/2007 1 - Mental Status Change SMOKE 09/08/2005 5 - Intolerance TETRACYCLINE 09/08/2005 5 - Intolerance Comments: CRAMPING Date Reviewed: 11/01/2017 Reviewed by: Rika Parada LPN - Fully Assessed Reason for Visit: Consult [173] Cmt: Gallbladder Primary Visit Diagnosis:Biliary dyskinesia [K82.8] Order(s):oxyCODONE-acetaminophen (PERCOCET) 5-325 mg tabletTake 1 tablet by mouth every 4 hours as needed for Pain for up to 3 days.Disp: 12 tabletRfl: 0 Prescriptions as of 11/01/2017 Sig: OXYCODONE-ACETAMINOPHEN 5 MG-* Take 1 tablet by mouth every * TRAZODONE 50 MG TABLET Take 1 tablet by mouth daily * LORAZEPAM 0.5 MG TABLET Take 1 tablet by mouth three * VENLAFAXINE ER 75 MG CAPSULE,* Take 1 capsule by mouth once * AMOXICILLIN 875 MG TABLET Take 1 tablet by mouth every * FLECAINIDE 50 MG TABLET Take 1 tablet by mouth twice * IBUPROFEN 600 MG TABLET Take 1 tablet by mouth every * FLUTICASONE 50 MCG/ACTUATION * 2 SPRAYS IN EACH NOSTRIL JESSICA* ALBUTEROL SULFATE HFA 90 MCG/* Inhale 2 Puffs as instructed * CETIRIZINE 10 MG TABLET Take 1 tablet by mouth once d* Problem List As Of Date 11/01/2017 Noted Resolved Asthma [J45.909] Abnormal involuntary movements(781.0) [R25.8, R*INVALID FOR*11/13/2015 ADJUSTMENT DISORDER WITH DEPRESSED MOOD [F43.21]INVALID FOR* Acute gastritis without mention of hemorrhage [*INVALID FOR*11/13/2015 ASCUS favor benign [R87.610] INVALID FOR*11/17/2011 CERVICAL HPV DNA POSITIVE [R87.810] INVALID FOR* ADD (Attention Deficit Disorder) [F98.8] INVALID FOR* Insomnia, unspecified [G47.00] INVALID FOR* More... Rapid palpitations [R00.2] INVALID FOR* Jkman-Xftpsptol-Comdw (WPW) syndrome [I45.6] INVALID FOR* Chest discomfort [R07.89] INVALID FOR*11/13/2015 Abnormal uterine bleeding [N93.9] INVALID FOR*09/02/2014 Anxiety [F41.9] INVALID FOR* Primary insomnia [F51.01] INVALID FOR* Stress incontinence in female [N39.3] INVALID FOR* Encounter for screening colonoscopy [Z12.11] INVALID FOR* Complex cyst of right ovary [N83.291] INVALID FOR* Biliary dyskinesia [K82.8] INVALID FOR* More... Prescriptions ordered this encounter Disp Refills Start End OXYCODONE-ACETAMINOPHEN 5 MG-325 MG * 12 t* 0 11/01/2017 11/04/2017 Class: Print RX Route: ORAL Sig: Take 1 tablet by mouth every 4 hours as needed for Pain for up to 3 days. Follow-up and Disposition History Recorded Encounter Status:Closed by DULCE HOOVER MD on 11/03/17 CNCO Observed: 11/01/2017 Status: COMPLETED Source: [place] 12:00 AM [facility] REPOSITORY Letter Text Nicki Delacruz Dulce Hoover MD [place] [address] Office: [phone] To Whom It May Concern: This is to certify that Nicki Delacruz is a patient under my care. She will be absent from work from 11/16/2017 until 12/05/2017 due to surgery. Please do not hesitate to contact my office at the above phone number if you have any questions or concerns. Sincerely, Dulce Hoover MD (Electronically signed to expedite mailing) HOSP Observed: 11/01/2017 Status: COMPLETED Source: [place] 12:00 AM [facility] OTHER [facility] REPOSITORY Patient:Nicki Delacruz MRN: <[id number]> Height:5' 2(1.575 m) Weight:151 lb (68.493 kg) Outpatient Medications as of 11/16/17: estradiol (NOBLE, VIVELLE-DOT) 0.025 mg/24 hr traZODone (DESYREL) 50 mg tablet LORazepam (ATIVAN) 0.5 mg tab venlafaxine ER (EFFEXOR XR) 75 mg 24 hr capsule flecainide (TAMBOCOR) 50 mg tablet ibuprofen (MOTRIN) 600 mg tablet albuterol HFA (VENTOLIN HFA) 90 mcg/actuation inhaler cetirizine (ZYRTEC) 10 mg tablet Admission/Clinic Administered Medications as of 11/16/17: lactated ringers infusion scopolamine 1 mg over 3 days 1 Patch (TRANSDERM-SCOP) scopolamine - REMOVE PATCH scopolamine - VERIFY patch Problem List: Asthma [J45.909] Adjustment disorder with depressed mood [F43.21] Cervical high risk human papillomavirus (HPV) DNA test positive [R87.810] ADD (attention deficit disorder) [F98.8] Insomnia, unspecified [G47.00] Rapid palpitations [R00.2] Htjct-Nxggjjfwq-Kcieu (WPW) syndrome [I45.6] Anxiety [F41.9] Primary insomnia [F51.01] Stress incontinence in female [N39.3] Encounter for screening colonoscopy [Z12.11] Complex cyst of right ovary [N83.291] Biliary dyskinesia [K82.8] Allergies: Citalopram Dust Mold Pneumovax 23 [Pneumococcal 23-Dawit Ps Vaccine] Pollen Propranolol Smoke Tetracycline Date Verified: 11/16/17 Lab Values Lab Value Units Date High Low POTA* 4.2 mmol/L 11/09/2017 5.1 3.7 TOMMY* 40.9 % 11/09/2017 46.0 36.0 Progress Notes ([facility]): Andrew Gonzalez MD 11/10/2017 5:45 PM Signed Tell her minimal kidney dysfunctions filtration rate slightly lower creatinine slightly higher we will follow this over time Progress Notes ([facility] ): Rika Parada YOANNA 11/03/2017 8:52 AM Signed GENERAL:No weight loss, No malaise, No fevers HEENT:Negative for frequent or significant headaches, Positive for:, Chronic sinus problems CARDIOVASCULAR: Negative for chest pain, Negative for leg swelling, Negative for palpitaions, Positive for:, Heart trouble, WPW. RESPIRATORY:Negative for cough, wheezing or shortness of breath. GASTROINTESTINAL: Negative for blood in stools, Negative for black stools, Positive for:, Loss of appetitie, Change in bowel movements, Nausea or vomiting and Abdominal pain GENITOURINARY: No history of dysuria, frequency or incontinence. ENDOCRINE: None STEREO 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:Denies any concerns STEREO 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: Age of first period: 17 Number of pregnancies: 3 Number of live births: 0 Your age at of first child: NA Your age at start of menopause: 51, Hysterectomy Taking hormone replacement: Yes, for 6 months. Family History of Cancer: None MUSCULOSKELETAL: Positive for:, joint pain, back pain NEUROLOGIC:Positive for: Headaches Negative for focal numbness or weakness, headaches and dizziness or syncope. HEMATOLOGIC/LYMPHATIC/IMMUNOLOGIC:Positive for: and Bleeding or bruising tendancy Dulce Hoover MD 11/03/2017 8:52 AM Signed PROGRESS NOTES PATIENT NAME: Nicki Delacruz Assessment ASSESSMENT/PLAN: (K82.8) Biliary dyskinesia (primary encounter diagnosis) Had a long discussion with Nicki today regarding the findings on her HIDA scan as well as her symptoms. Her symptoms are consistent with gallbladder dysfunction. We discussed proceeding with laparoscopic cholecystectomy.Risks, benefits and alternatives of proceeding with laparoscopic cholecystectomy were discussed with risks to include but not limited to hemorrhage, infection, possibility of common bile duct injury, possible intra-abdominal organ injury ,possible conversion to open. Patient expressed understanding and wishes to proceed. She was given Percocet to get her through until the surgery. Office Visit on 11/01/17 -oxyCODONE-acetaminophen (PERCOCET) 5-325 mg tablet SUBJECTIVE CHIEF COMPLAINT: Patient presents with: Consult: Gallbladder INTERVAL HISTORY OF PRESENT ILLNESS: Nicki is a 52-year-old female presents with a 2 year history of abdominal complaints. She has had intermittent episodes of right-sided abdominal pain that radiates towards her back. This is associated with nausea. It is worse with eating food. Over the last 6 months the pain has become more intense and the nausea more significant. She has also had loose stools. The pain is now more constant. She also complains of worsening reflux. Workup including an ultrasound was negative. HIDA scan shows a decreased ejection fraction of 31%. She did feel worse after CCK injection. She presents today to discuss laparoscopic cholecystectomy. HISTORIES: PAST MEDICAL HISTORY Diagnosis Date - Allergic rhinitis due to other allergen - Encounter for insertion or removal of intrauterine contraceptive device 08/30/2007 Mirena, removed March 10 - Other anxiety states - Stress incontinence, female - Unspecified asthma(493.90) - WPW (Xwdgk-Bxpxlywur-Mjpsa syndrome) PAST SURGICAL HISTORY Procedure Laterality Date - DELIVERY ONLY 85, 88,92 , low cervical X3 - ENLARGE BREAST WITH IMPLANT 11/2007 Breast augmentation - IUD 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 08/30/2007 Mirena - removed - PAST SURGICAL HISTORY OF 11/2015 bladder sling - REMOVE TONSILS/ADENOIDS,<13 Y/O 1968 - S PK LAV[facility] [id number] 2013 lavh RICKY biltareal salpingectomy - SVT ABLATION W/ EP COMPLETE ALLERGIES: Citalopram; Dust; Mold; Pneumovax 23 [Pneumococcal 23-Dawit Ps Vaccine]; Pollen; Propranolol; Smoke; Tetracycline MEDICATIONS: Current Outpatient Prescriptions: oxyCODONE-acetaminophen (PERCOCET) 5-325 mg tablet Take 1 tablet by mouth every 4 hours as needed for Pain for up to 3 days. traZODone (DESYREL) 50 mg tablet Take 1 tablet by mouth daily at bedtime. LORazepam (ATIVAN) 0.5 mg tab Take 1 tablet by mouth three times daily as needed. venlafaxine ER (EFFEXOR XR) 75 mg 24 hr capsule Take 1 capsule by mouth once daily. amoxicillin (AMOXIL) 875 mg tablet Take 1 tablet by mouth every 12 hours. flecainide (TAMBOCOR) 50 mg tablet Take 1 tablet by mouth twice daily. ibuprofen (MOTRIN) 600 mg tablet Take 1 tablet by mouth every 8 hours as needed for Pain. fluticasone (FLONASE) 50 mcg/actuation nasal spray 2 SPRAYS IN EACH NOSTRIL DAILY DIRECTED albuterol HFA (VENTOLIN HFA) 90 mcg/actuation inhaler Inhale 2 Puffs as instructed every 4 hours as needed for Wheezing/Shortness of Breath. cetirizine (ZYRTEC) 10 mg tablet Take 1 tablet by mouth once daily. No current facility-administered medications for this visit. FAMILY HISTORY Problem Relation Age of Onset - Asthma Father - Emphysema Paternal Grandmother - Seizures Paternal Grandmother - Cancer Paternal Grandfather PROSTATE CANCER, OR - Asthma Son - Asthma Daughter - Seizures Brother wpw Social History Marital status: Spouse name: Years of education: 15 Number of children: 3 Occupational History Occupation Employer Comment [employer] Social History Main Topics Smoking status: Never Smoker Smokeless status: Never Used Alcohol use: Yes Comment: Occasionally Drug use: No Sexual activity: Yes Partners with: Male control/protection: Other, Surgical Comment: Hysterectomy Social History Narrative OAR[facility] report reviewed February 16, 2012 Gael Bravo MD Reviewed and agreed with Review of Systems completed by the clinical staff. OBJECTIVE PHYSICAL EXAM: BP 167/91 Pulse 80 Ht 5' 2 (1.58m) Wt 145 lb (65.8kg) LMP 05/06/2014 BMI 26.51 kg/(m2). General: Well developed, well-nourished, in no distress HEENT: Normocephalic, atraumatic. Extraocular movements intact. Sclera are nonicteric. Heart: Regular rate and rhythm, no murmur Lungs: Clear to auscultation, without wheezes Abdomen: Soft, non tender, positive bowel sounds, no masses, no hernia Rectal: Not evaluated Extremities: No edema, no calf tenderness Neurologic: Alert, oriented, and appropriate. DATA: Diagnostic tests reviewed for today's visit: Ultrasound was negative. HIDA scan shows an ejection fraction of 31% consistent with biliary dyskinesia. MD LOKI Shine HEPATOBILIARY W EF Observed: 10/26/2017 Status: F Source: [facility] AND/OR RX 3:40 PM CLINIC OTHER CAMPUS REPOSITORY * * *Final Report* * * DATE OF EXAM: Oct 26 2017 3:40PM SARAH BETH 0021 - [place] HEPATOBILIARY W EF AND/OR RX / PROCEDURE REASON: R10.11-Right upper quadrant pain * * * * Physician Interpretation * * * * HEPATOBILIARY SCAN WITH POST-CCK GALLBLADDER EJECTION FRACTION: CLINICAL HISTORY: 52 year old female patient with right upper quadrant pain. TECHNIQUE: 6 mCi Tc-99m Choletec IV, followed by 60 minutes of abdominal imaging. 1.35 mcg Kinevac (CCK) IV, followed by additional 30 minutes of imaging. RESULT: There is prompt and homogeneous uptake by the liver, which appears grossly normal in size and shape. Gallbladder activity is visualized by 4 minutes, indicating cystic duct patency. Proximal small bowel activity is noted by 22 minutes, indicating common bile duct patency. After CCK was administered there is just emptying from the gallbladder with a calculated gallbladder ejection fraction of 31% (normal > 35%). .... IMPRESSION: 1. PATENT CYSTIC AND COMMON BILE DUCTS. NO EVIDENCE OF ACUTE CHOLECYSTITIS. 2. REDUCED GALLBLADDER EJECTION FRACTION. THESE FINDINGS ARE CONSISTENT WITH CHRONIC CHOLECYSTITIS OR BILIARY DYSKINESIA IN THE APPROPRIATE CLINICAL SETTING. Clam Digger: KLARISSA Transcribe Date/Time: Oct 26 2017 4:00P Dictated by : HELLEN CHATTERJEE DO This examination was interpreted and the report reviewed and electronically signed by: QUINTIN WING MD on Oct 26 2017 4:10PM EST [id number] US ABD RIGHT UPPER Observed: 10/04/2017 Status: F Source: [facility] 1:33 PM [facility] REPOSITORY * * *Final Report* * * DATE OF EXAM: Oct 04 2017 1:33PM U 1032 - US ABD RIGHT UPPER QUADRANT / PROCEDURE REASON: Right upper quadrant pain * * * * Physician Interpretation * * * * ULTRASOUND ABDOMEN RUQ HISTORY: Right upper quadrant abdominal pain and nausea. COMPARISON: CT abdomen flank on 11/14/2011 TECHNIQUE: Sonography of the right upper quadrant abdomen was performed. Images were obtained and stored in a permanent archive. RESULT: Pancreas: Normal sonographic appearance in the visualized portions. Portions obscured: Tail Liver: Echotexture: Homogeneous Echogenicity: Normal Surface contour: Smooth Lesions: None Biliary: Intrahepatic bile ducts: Normal CBD: 3 mm Gallbladder: -Contents: No cholelithiasis -Wall: 2 mm in thickness -Sonographic House's: Negative Right Kidney: Length: 9.4 cm. Lesions: none Hydronephrosis: none Ascites: None. IMPRESSION: No acute sonographic abnormalities seen. Clam Digger: KLARISSA Transcribe Date/Time: Oct 04 2017 1:40P Dictated by : JIE SARMIENTO MD This examination was interpreted and the report reviewed and electronically signed by: JIE SARMIENTO MD on Oct 04 2017 1:43PM EST [id number] PROGRESS Observed: 10/04/2017 Status: COMPLETED Source: [place] 1:01 PM [facility] REPOSITORY HNO ID: [id number] Author: Cindy Claire Service: (none) Author Type: (none) Type: Progress Notes Filed: 10/04/2017 1:35 PM Note Text: Radiology Service Progress Note PATIENT NAME: Nicki Delacruz DATE OF SERVICE: October 04, 2017 TIME: 1:01 PM PATIENT IDENTITY VERIFICATION COMPLETED USING TWO (2) METHODS: Patient confirmed name verbally and Date of . PATIENT GENDER DATA: Female. status: : No status: NO. PATIENT RELEVANT IMPLANT DATA REVIEWED: Yes RADIOLOGY DEPARTMENT: Ultrasound PERIPHERAL IV DATA: Not applicable SIGNED BY: Cindy Claire October 04, 2017 1:01 PM OT D/C OF NON Observed: 09/28/2017 Status: F Source: [facility] 12:40 PM [facility] REPOSITORY [facility] [address] [place] [address]. [address] [place] [address] Fax REHABILITATION SERVICES DISCHARGE SUMMARY MR#: [id number] Acct: [id number] Name: NICKI DELACRUZ Rep #: [id number] : 1965 52 From: Marilyn Tirado Referring DrVimal: Andrew Atkins DO Status: REG RCR Eval Date: Discharge Date: HP - Discharge Summary - Patient Information NICKI DELACRUZ was seen in my office for initial evaluation on 07/20/17. The following Plan of Care was established for this patient: Initial Frequency: 2-3x /Week Initial Duration: 4-6 Weeks Plan: continue POC and promote desensitization and decrease need for assistance by time of d/c. She is to completed rice desensitization protocol. - Anticipated Interventions Anticipated Interventions: A/AAROM/PROM, Strengthening, Desensitization, Sensory Retraining, Modalities, Joint Protection/Energy Conservation, Ergonomic Education, Fine Motor Coord/Fredi, ADL Training, Caregiver Training, Home Program This patient was last seen in our office 07/28/17. Pertinent comments regarding their Occupational therapy will appear below: Nicki attended 5 session with OT. She canceled or did not attended last two session. Completed strength assessment from 5th visit on 07/28/17 . Measurements are as follows :ediphone operator R 60, L 47 ; lateral R 13, L 9; three jaw R 8, L 6l tip R 8, L7 lbs. Pt. sensation dorsum of hand around MF MCP 3.84, MCP RF 3.22, PF 4.08. She will be d/c'd on this date. At this point I will be discontinuing this patient from occupational therapy. I would be happy to see this patient again in the future if found appropriate by the physician. Thank you! Marilyn Tirado <Electronically signed by Marilyn Tirado > 09/28/17 1240 CC: RIK GONZALEZ; Andrew Atkins DO KMEaston Signed OT GENERAL EVALUATION Observed: 07/21/2017 Status: F Source: [place] 11:54 AM [facility] REPOSITORY [facility] Occupational Therapy [facility] [address] [place] [address]. [address] [place], [place] [address] Fax REHABILITATION SERVICES INITIAL EVALUATION MR#: [id number] Acct: [id number] Name: NICKI DELACRUZ Rep #: [id number] : 1965 52 From: Marilyn Tirado Referring Dr.: Andrew Atkins DO Status: REG RCR Insurance: [facility] COMMUNITY PLAN Eval Date: Patient's Visit Information NICKI DELACRUZ is a 52 year old F, referred to Occupational Therapy by Andrew Atkins DO,, with a diagnosis of L hand RSD/CRPS. Date of Evaluation: 07/20/17 Occupational Therapist: Marilyn Tirado - Subjective Subjective: Pt., Nicki, arrived and noted all symptoms started about three weeks. She had ovariectomy operation 3 weeks ago and when the medical staff were trying to place in IV she notes she had a sharp shooting pain from hand to elbow. She notes that IV had to be placed in other hand and that she has since had pain in the L hand. Nicki notes she orginally had significant swelling, pain, and burning/numbness. She noted that swelling has decreased but has since had continued numbness, burning, and pain. - Pain Left Hand 5 Pain Intensity Range: 9, 10 - Objective Objective/Observation: Pt. has nodule on the dorsal side of hand at proximal base of MC area near ulnar styloid of hand. She had increased pain when lumbricals activate through MCP flexion and is able to form composite fist but has significant pain. She exhibits decreased strength for ediphone operator in L affected hand as wella s abonormal sensation testing through monofilamnt to dorsum of hand. Concerns: Pt. may benefit from further soft tissue imaging, such as potential ultrasound , if tolerable to Pt. to futher determine cause of pain. Her syptoms and decreased sensation are in alignment of dorsum ulnar nerve innervation. She verbalized understanding of the time it will take for nerve to heal and that since she has pain it is a sign the nerve is already trying to heal itself. - ROM Shoulder: Wfl Elbow: WFL Forearm: WFL Wrist: WFL MP: R WFL ; L 2-5th: -3-86, 10-89, -5-80, -7-80 PIP: R WFL; L 2nd- 5th 0-74, 0-75, -10-75, -13-66 DIP: WFL ROM Comments: Increased pain with lumbrical activation to form composite fist. - Strength General Lithographic Worker: R 61, L 35 Lateral Pinch: R 13, L 11 Tripod Pinch: R 17, L 10 Tip-to-Tip Pinch: R 4, L 2 - Sensation Thumb: R 2.83, L 2.83- dorsum of hand at finger tips Index: R 2.83, L 2.83- dorsum of hand at finger tips Middle: R 2.83, L 2.83- dorsum of hand at finger tips Ring: R 2.83, L 2.83- dorsum of hand at finger tips Little: R 2.83, L 2.83- dorsum of hand at finger tips Sensation Comments: Sensation testing on Dorsum of L hand around MCP: RF: 4.08. PF: 4.31 - DASH-Disabilities of Arm, Shoulder AND Hand DASH Sum: 83 - Goals Goal:: Pt. will increase L affected hand strength to within 10 lbs of R dominant hand 2/3 trials 75% of the time by d/c. Goal:: Pt. to be able to form full composite fist with pain 1-2/10 4/5 trials 80% of the time by d/c. Goal:: Pt. to rate pain 1-2/10 with compensations as needed during work and ADL/IADLs tasks 4/5 trials 80% of the time by d/c. Goal:: Pt. to decrease sensitivity of L hand as exhibited through increased sensation through monofilament testing by time of d/c. Goal:: Pt. mod I to be complete HEP for strength and densensitization techniques to promote increased (i) and decreased pain 80% of the time by d/c. - Rehabilitation General Assessment: Pt., Nicki, is 52 y/o s/p ovariectomy 3 weeks ago. She has had increased pain in L hand since medical profession tried placing in IV. She noted swelling which seems to have decreased since inital injury. She presents with ulnar nerve pain on dorsum of hand. She has increase sensitivity to touch and exhibits module at base of MCP that cause increased pain. Nicki has increased pain when lumbricals are activated with forward flexion of MCP area. She exhibited decreased sensation on dorsum of hand and has increased sensitivity over nodule at base of MC on dorsum of 4th and 5th fingers. She will be treated by OT with modalities as needed, increasing ROM, and strength, desensitization protocol, and promote increased ability to use L affected hand for ADL/IADls. Rehabilitation Potential: Good - Anticipated Interventions Anticipated Interventions: A/AAROM/PROM, Strengthening, Desensitization, Sensory Retraining, Modalities, Joint Protection/Energy Conservation, Ergonomic Education, Fine Motor Coord/Fredi, ADL Training, Caregiver Training, Home Program - Visit Plan Frequency: 2-3x /Week Duration: 4-6 Weeks General Plan: Nicki to be treated by OT to decrease pain in L hand and promote Fx ability to complete ADl/IADls. Ot to treated with modalities as tolerated, ROM and strength technqiues, densensitization protocol, and general techniques to help promote and gain back fucntional use of L affected hand. TEXT: Thank you for the opportunity to evaluate your patient. For Medicare and Medicare HMO plans, please review the plan of care and approve it. It will need to be FAXED BACK to us at [phone] for Medicare purposes. Please let me know if there are questions or concerns regarding this plan of care. Physician Signature: Date: <Electronically signed by Marilyn Tirado > 07/21/17 1154 CC: RIK GONZALEZ; Andrew Atkins DO ARMANDO Signed For Medicare only, by signing this I certify the plan of care. Physicians Signature Date ALLERGIES ALLERGIES DATE TYPE / NAME / CODE REACTION SEVERITY SOURCE CODE 08/30/2018 Drug Tetracyclines/F001 Unknown Unknown [place] Allergy/41 932005(RXNORM) [facility] [id number]([facility]) Repository 08/30/2018 Drug propranolol/Z05212 Other Unknown [place] Allergy/41 4740(RXNORM) [facility] 1254791([facility]) Repository 12/27/2017 DRUG ENBUCRILATE RASH [place] [address] Other [place] 9290048([facility]) 09/07/2017 DRUG CITALOPRAM UNKNOWN [place] [address] Other [place] 7783108([facility]) 06/27/2017 Drug Tetracyclines/F001 Unknown [place] Allergy/41 991990(RXNORM) [facility] 8488739([facility]) Repository 06/27/2017 Drug propranolol/J30137 Other [place] Allergy/41 4740(RXNORM) [facility] 6632003([facility]) Repository 11/20/2013 DRUG/54153 PNEUMOCOCCAL SWELLING [facility] 1003(OME 23-DAWIT PS VACCINE Other [facility]) Repository 01/25/2007 DRUG PROPRANOLOL Mental Chg [place] [address] Other [place] 5327502(SN Repository OMED CT) 09/08/2005 Environ/42 DUST INTOLERANCE [facility] 6145533(SN Other [place] OMED CT) Repository 09/08/2005 DRUG MOLD INTOLERANCE [facility]/41 Other [place] 8040109(SN Repository OMED CT) 09/08/2005 Environ/42 POLLEN INTOLERANCE [facility] 1252309(SN Other [place] OMED CT) Repository 09/08/2005 Environ/42 SMOKE INTOLERANCE [facility] 7739672(SN Other [place] OMED [facility]) Repository 09/08/2005 DRUG [facility] [place] 2081684(SN Repository OMED [facility]) NG/3587553 ENBUCRILATE [facility] 06([facility]OMED [facility] Repository NG/9924975 CITALOPRAM [facility] 06(SNOMED [facility]) Repository NG/1906372 DUST [facility] 06(SNOMED [facility]) Repository NG/1617939 MOLD [facility] 06(SNOMED [facility]) Repository NG/0322630 PNEUMOCOCCAL [facility] 06(SNOMED 23-DAWIT PS VACCINE [facility]) Repository NG/6751676 POLLEN [facility] 06(SNOMED [facility]) Repository NG/7632165 PROPRANOLOL [facility] 06(SNOMED [facility]) Repository NG/3842385 SMOKE [facility] 06(SNOMED [facility]) Repository NG/5429315 TETRACYCLINE [facility] 06(SNOMED [facility]) Repository ENCOUNTERS ENCOUNTERS ADMIT/DISCHARGE ACCOUNT NUMBER ADMITTING ENCOUNTER LOCATION SOURCE CLASS 09/05/2018/09/05/20 [id number] Emergency BBuilding:DANYEL Hodgson [address] [place] [address] Repository 08/31/2018 [id number] Ambulatory [facility] ding:MTLAB Repository 08/30/2018/08/30/20 [id number] Emergency [address] ding:ED Repository 08/28/2018 [id number] Ambulatory [facility] ding:LABSPEC Repository 08/28/2018/08/28/20 [id number] Ambulatory BMSBuilding: [place] 18 [facility] Repository 08/21/2018 [id number] Ambulatory [facility] ding:LABSPEC Repository 08/21/2018/08/21/20 [id number] Ambulatory BMSBuilding: [place] 18 BMS.[facility] Repository 06/26/2018/06/28/20 [id number] Ambulatory [address] Repository 05/25/2018 [id number] Ambulatory [facility] Repository 05/25/2018/05/25/20 [id number] Ambulatory [facility] [address] MEDICAL Repository CENTERBuildi ng:AKCLB 05/23/2018 [id number] Ambulatory BMSBuilding: [place] BMS.[facility] Repository 05/10/2018/05/10/20 [id number] Ambulatory [address] Repository 05/10/2018/05/10/20 [id number] Ambulatory [facility] [address] MEDICAL Repository CENTERBuildi ng:AGCARDPHR A 04/02/2018/04/03/20 [id number] Emergency [address] Repository 04/02/2018/04/03/20 [id number] Emergency [address] MEDICAL Repository CENTERBuildi ng:AKEDRoom: EDBed: 02 03/28/2018/03/29/20 [id number] [facility] Repository 03/28/2018/03/29/20 [id number] [facility], Inpatient [address] MEDICAL Repository CENTERBuildi nRoom: 2115Bed: 03/23/2018/03/23/20 [id number] Ambulatory [address] Repository 03/23/2018/03/23/20 [id number] Ambulatory [facility] [address] MEDICAL Repository CENTERBuildi ng:AGCARDPOB 03/07/2018 [id number] Ambulatory [facility] ding:OPBI Repository 02/16/2018/02/17/20 [id number] Ambulatory [address] Repository 12/27/2017/12/28/19 [id number] Ambulatory [address] Repository 12/21/2017/12/22/19 [id number] Ambulatory [address] Repository 12/21/2017/03/21 [id number] Ambulatory MAXIM Castro [address] MEDICAL Repository CENTERBuildi ng:AGCARDPHR A 12/01/2017/12/07/19 [id number] Ambulatory [address] Main [place] Repository 11/28/2017/12/02/19 [id number] Ambulatory [address] [place] Repository 11/22/2017/11/22/19 [id number] Ambulatory [address] [place] Repository 11/20/2017/11/20/19 [id number] Emergency [address] ding:ED Repository 11/20/2017/11/20/19 [id number] Ambulatory [address] [place] Repository 11/16/2017/11/16/[id number] [place] Other [place] Repository 11/09/2017 [id number] Ambulatory [facility] Main [place] Repository 11/09/2017/11/09/19 [id number] Ambulatory [address] Other [place] Repository 11/01/2017/11/01/19 [id number] Ambulatory [address] [place] Repository 10/26/2017 [id number] Ambulatory [facility] Other [place] Repository 10/04/2017/10/04/19 [id number] Ambulatory [address] [place] Repository 07/20/2017/08/16/20 [id number] Ambulatory [address] ding:OT Repository PAYERS PAYERS ENCOUNTER GUARANTOR PAYER SUBSCRIBER SOURCE 09/05/[address] [facility] NICKI Lai [facility] OSBORNEDOB: Insurance:[facility] OSBORNEDOB: [facility] [id number] INSCOPolicy Number: [id number] Repository [facility] [id number] 6 [facility], Date:2018-09-05 [place], [place] [id number] [address]Czl: [id number] Name:YVETTE Niño [email or web address]: [address], [place] (HP)Tel: [phone]: () (HP) [phone] () 08/31/2018 NICKI Lai Primary Insurance:[facility] NICKI Macdonaldoster [id number] W COMMUNITY PLANPolicy OSBORNEDOB: Community MARKET Number: [id number], [place] [id number] Repository 29[address]Auj: (330) Date:2620-24-37ZP [phone] () [address] [place] [address] 23473XQ: 08/31/2018 Secondary NOT GIVENUNK [place] Insurance:SELF PAY [facility] Number: Effective Repository Date:2018-08-31 08/30/2018 NICKI Lai Primary Insurance:[facility] NICKI Macdonaldoster [id number] W COMMUNITY PLANPolicy OSBORNEDOB: Community MARKET Number: [id number], [place] [id number] Repository 98296Xyd: (330) Date:9530-09-05ED [phone] () [address] [place] [address] 38759ZP: 08/30/2018 Secondary NOT GIVENUNK [place] Insurance:SELF PAY [facility] Number: Effective Repository Date:2018-08-30 08/28/2018 NICKI Lai Primary Insurance:[facility] NICKI Leon [id number] W COMMUNITY PLANPolicy OSBORNEDOB: Community MARKET Number: [id number], [place] [id number] Repository 89478Jhq: (330) Date:5522-36-90FR [phone] () [address] [place] [address] 41434MH: 08/28/2018 Secondary NOT GIVENUNK [place] Insurance:SELF PAY [facility] Number: Effective Repository Date:2018-08-28 08/28/2018 NICKI Lai Primary Insurance:[facility] NICKI Leon [id number] W COMMUNITY PLANPolicy OSBORNEDOB: Community MARKET Number: [id number], [place] [id number] Repository 38696Epp: (330) Date:6066-63-30WF [phone] () [address] [place] [address] 42656BN: 08/28/2018 Secondary NOT GIVENUNK [place] Insurance:SELF PAY [facility] Number: Effective Repository Date:2018-08-28 08/21/2018 NICKI Lai Primary Insurance:[facility] NICKI Macdonaldoster [id number] W COMMUNITY PLANPolicy OSBORNEDOB: Community MARKET Number: [id number], [place] [id number] Repository 57872Rww: (330) Date:2034-85-26LW [phone] () [address] [place] [address] 62212QQ: 08/21/2018 Secondary NOT GIVENUNK [place] Insurance:SELF PAY [facility] Number: Effective Repository Date:2018-08-21 08/21/2018 NICKI Lai Primary Insurance:[facility] NICKI Macdonaldoster [id number] W [facility] PLANPolicy OSBORNEDOB: Community MARKET Number: [id number], [place] [id number] Repository 33579Tqz: (330) Date:7783-89-03KT [phone] () [address] [place] [address] 43659TE: 08/21/2018 Secondary NOT GIVENUNK [place] Insurance:SELF PAY [facility] Number: Effective Repository Date:2018-08-21 05/25/2018 NICKI Lai Primary Insurance:[facility] NICKI Lai [facility] OSBORNEDOB: COMMUNITY PLAN OSBORNEDOB: [facility] [id number] W MEDICAIDPolicy [id number] Repository MARKET Number: [place], [place] [id number] 35[address]Agx: (330) Date: [phone] () 05/23/2018 NICKI M Primary Insurance:[facility] NICKI Macdonaldoster [id number] W [facility] PLANPolicy OSBORNEDOB: Community Market Number: [id number], [place] [id number] Repository 26574Xgd: (330) Date:6352-59-13TL [phone] () [address] [place] [address] 63790VO: 05/23/2018 Secondary NOT GIVENUNK [place] Insurance:SELF PAY [facility]: Effective Repository Date:2018-05-23 05/10/2018 NICKI Lai Primary Insurance:[facility] NICKI [facility] OSBORNEDOB: COMMUNITY PLAN OSBORNEDOB: [facility] W MEDICAIDPolicy [id number] Repository MARKET Number: [place] [id number] 47[address]Bij: (330) Date: [phone] (HP) 04/02/2018 NICKI Lai Primary Insurance:[facility] NICKI [facility] OSBORNEDOB: COMMUNITY PLAN OSBORNEDOB: [facility] W MEDICAIDPolicy [id number] Repository MARKET Number: [place] [id number] 515[address]Cwv: (330) Date: [phone] (HP) 03/28/2018 NICKI Lai Primary Insurance:[facility] NICKI [facility] OSBORNEDOB: COMMUNITY PLAN OSBORNEDOB: [facility] W MEDICAIDPolicy [id number] Repository MARKET Number: [place] [id number] 74556Hcr: (330) Date: 64 (HP) 03/23/2018 NICKI Lai Primary Insurance:[facility] NICKI [facility] OSBORNEDOB: COMMUNITY PLAN OSBORNEDOB: [facility] W MEDICAIDPolicy [id number] Repository MARKET Number: [place] [id number] 25860Dff: (330) Date: 64 (HP) 03/07/2018 NICKI Lai Primary Insurance:[facility] NICKI Lai [place] [id number] W COMMUNITY PLANPolicy OSBORNEDOB: Community Market Number: [id number] [facility] [place] [id number] Repository 33180Ube: (330) Date:6471-38-44CS [phone] () [address] [place] [address] 73213ID: 03/07/2018 Secondary NOT GIVENUNK [place] Insurance:SELF PAY [facility] INSURANCEPolicy Hospital Number: Effective Repository Date:2018-02-07 12/21/2017 NICKI Lai Primary Insurance:[facility] NICKI M [facility] OSBORNEDOB: COMMUNITY PLAN OSBORNEDOB: [facility] [id number] W MEDICAIDPolicy [id number] Repository MARKET Number: [place], [place] [id number] [address]Cqw: (330) Date: [phone] (HP) 11/20/2017 Nicki [id number] Primary Insurance:[facility] Nicki OsborneDOB: [place] W [facility] [id number] [place] Number: Hospital [address]Adu: 330 [id number] Repository [phone] (HP) Date:3458-80-32JA [address] [address]KZ: 11/20/2017 Secondary NOT GIVENUNK [place] Insurance:SELF PAY [facility] Number: Effective Repository Date:2017-11-20 07/20/2017 NICKI [id number] Primary Insurance:[facility] NICKI OSBORNEDOB: [place] [facility] [id number] [place] Number: Hospital [address]Meo: (488) [id number] Repository [phone] (HP) Date:3062-24-16EB [address] [address]WM:
== END ==
PROVIDERS: Referring Provider Nurse Practitioner Women's Health; Visit Provider Nurse Practitioner Women's Health
DX: R30.0 Dysuria (principal)
CPT/HCPCS: 87086; 87088; 87186

== ENCOUNTER 2018-08-30 13:14 | Emergency (ER) | payer MEDICAID, SELFPAY ==
[2018-08-21 15:36] VITALS: BMI 27.4
[2018-08-30 13:15] VITALS: BP 143/88; PULSE 84; RESP 17; TEMP 36.9; O2SAT 98; BMI 26.4
--- NOTE | 2018-08-30 13:34 | ED.VIS.GEN ---
History of Present Illness Chief Complaint: Abd Pain Informant: Patient Onset: Days - 3 Context: Gradual Onset Timing: Continuous Quality: ache Location: pelvis, w/ radiation into low back, worse on right Current Severity: Moderate Maximum Severity: Moderate Worsened by: nothing Relieved by: nothing Associated Symptoms: burning dysuria, frequency, urgency. no gross hematuria. Narrative: Had urinary symptoms and suprapubic discomfort 2-3 days ago, including burning after she was done urinating, her doctor tested her urine in the office which showed blood, and prescribed Macrobid for her which she started and now she has developed colicky pain in her low back especially the right side, some chills, no nausea or vomiting. Past Medical History - Allergies and Home Meds Allergies/Adverse Reactions: Allergies Tetracyclines Allergy (Verified 08/30/18 13:15) Unknown propranolol Adverse Reaction (Verified 08/30/18 13:15) Other MENTAL STATUS CHANGES Primary Care Physician: Fortino Xavier [Primary Care Provider] - Surgical History: hysterectomy Lives: Spouse/ Significant Other Smoking Status: Never smoker Review of Systems General: Reports: Chills. Denies: Sweats Cardiovascular: Denies: Chest pain, Palpitations Respiratory: Denies: Dyspnea, Cough, Dyspnea on exertion Gastrointestinal: Reports: Abdominal pain. Denies: Nausea, Vomiting, Diarrhea, Melena, Hematochezia Genitourinary: Reports: Dysuria, Frequency. Denies: Hematuria Musculoskeletal: Reports: Back pain Skin: Denies: Rash Neurological: Denies: Headache, Weakness, Numbness Physical Exam Vital Signs/Narrative: Vital Signs Temp Pulse Resp BP Pulse Ox 08/30/18 13:15 98.5 F 84 17 143/88 H 98 Inital Vital Signs reviewed: Yes General: Well nourished, Well developed Head: Normocephalic, Atraumatic Eyes: Perrl, EOMI ENT: Moist mucous membranes, No rhinorrhea Neck: Supple, Nontender Cardiovascular: Regular rate, Regular rhythm, No murmurs. Negative for: Tachycardia Respiratory: No distress, CTA bilaterally, Chest nontender Abdomen: Soft, Nondistended, Normal bowel sounds, Tender - suprapubic. Negative for: Guarding, Rebound tenderness Back: Normal Inspection, CVA tenderness - mild on R only Extremities: Nontender, No edema Skin: Normal color, No rash, No Trauma Neurological: Alert, Oriented x3, Cranial nerves II-XII grossly intact, Normal Strength, Normal Sensation Psychological: Normal affect Diagnostic/Tx/Re-eval Laboratory Tests 08/30/18 Range/Units 13:40 Urine Color Yellow (Yellow) Urine Clarity Sl. Cloudy (Clear) Urine pH 6.0 (5.0 - 8.0) Ur Specific [place] 1.025 (1.002-1.030) Urine Protein 30 H (Negative) mg/dl Urine Glucose (UA) Normal (Normal) mg/dl Urine Ketones 150 H (Negative) mg/dl Urine Occult Blood 10 H (Negative) /ul Urine Nitrite Negative (Negative) Urine Bilirubin 1 H (Negative) mg/dL Urine Urobilinogen 1 H (Normal) mg/dl Ur Leukocyte Esterase 25 H (Negative) /ul Urine RBC 0-5 SEEN (0-5) /hpf Urine WBC 0-5 SEEN (0-5) /hpf Ur Squamous Epith Cells 0-5 SEEN (5-10) /hpf Urine Bacteria 2+ (None Seen) /hpf Fine Granular Casts 0-5 SEEN (0-5) /lpf Urine Mucus 4+ (<or=2+) /hpf - Medical Decision Making Urinalysis shows 25 leukocyte esterase, few white blood cells, 2+ bacteria. I discussed with Mary Cohen, nurse practitioner who the patient saw several days ago, she reviewed her urinalysis which showed very similar findings. The patient has symptoms and clinical findings consistent with cystitis that has turned into early pyelonephritis, I do not think she needs any other labs right now since she appears very well, has normal vital signs, and it cannot be since she had a hysterectomy, and therefore meets no criteria for admission. I coordinated follow-up, she will get an injection of Rocephin here in addition to Toradol for pain control, and prescriptions for Keflex and [place]. We had initially discussed Bactrim but she said that did not work for her in the past and she prefer to try something else. She understands to return for intractable symptoms, high fevers, otherwise to follow-up with [facility]. ED Disposition - Plan for ED Patient: Disposition: Home or Assisted Living Chief Complaint: Abd Pain Diagnosis: Pyelonephritis Instructions: ED Kidney Infec Female Prescriptions: Hydrocodone/Acetaminophen [[place] 5-325 Tablet] 1 each PO Q4H PRN 2 Days #12 tablet PRN Reason: Pain Cephalexin 500 mg PO 4X/DAY #40 capsule Referrals: Tootie Figueroa MD [STAFF PHYSICIAN] - 3-5 Days
--- NOTE | 2018-08-30 13:38 | ED.DCSUM_ITS ---
History of Present Illness Chief Complaint: Abd Pain Informant: Patient Onset: Days - 3 Context: Gradual Onset Timing: Continuous Quality: ache Location: pelvis, w/ radiation into low back, worse on right Current Severity: Moderate Maximum Severity: Moderate Worsened by: nothing Relieved by: nothing Associated Symptoms: burning dysuria, frequency, urgency. no gross hematuria. Narrative: Had urinary symptoms and suprapubic discomfort 2-3 days ago, including burning after she was done urinating, her doctor tested her urine in the office which showed blood, and prescribed Macrobid for her which she started and now she has developed colicky pain in her low back especially the right side, some chills, no nausea or vomiting. Past Medical History - Allergies and Home Meds Allergies/Adverse Reactions: Allergies Tetracyclines Allergy (Verified 08/30/18 13:15) Unknown propranolol Adverse Reaction (Verified 08/30/18 13:15) Other MENTAL STATUS CHANGES Primary Care Physician: Fortino Xavier [Primary Care Provider] - Surgical History: hysterectomy Lives: Spouse/ Significant Other Smoking Status: Never smoker Review of Systems General: Reports: Chills. Denies: Sweats Cardiovascular: Denies: Chest pain, Palpitations Respiratory: Denies: Dyspnea, Cough, Dyspnea on exertion Gastrointestinal: Reports: Abdominal pain. Denies: Nausea, Vomiting, Diarrhea, Melena, Hematochezia Genitourinary: Reports: Dysuria, Frequency. Denies: Hematuria Musculoskeletal: Reports: Back pain Skin: Denies: Rash Neurological: Denies: Headache, Weakness, Numbness Physical Exam Vital Signs/Narrative: Vital Signs Temp Pulse Resp BP Pulse Ox 08/30/18 13:15 98.5 F 84 17 143/88 H 98 Inital Vital Signs reviewed: Yes General: Well nourished, Well developed Head: Normocephalic, Atraumatic Eyes: Perrl, EOMI ENT: Moist mucous membranes, No rhinorrhea Neck: Supple, Nontender Cardiovascular: Regular rate, Regular rhythm, No murmurs. Negative for: Tachycardia Respiratory: No distress, CTA bilaterally, Chest nontender Abdomen: Soft, Nondistended, Normal bowel sounds, Tender - suprapubic. Negative for: Guarding, Rebound tenderness Back: Normal Inspection, CVA tenderness - mild on R only Extremities: Nontender, No edema Skin: Normal color, No rash, No Trauma Neurological: Alert, Oriented x3, Cranial nerves II-XII grossly intact, Normal Strength, Normal Sensation Psychological: Normal affect Diagnostic/Tx/Re-eval Laboratory Tests 08/30/18 Range/Units 13:40 Urine Color Yellow (Yellow) Urine Clarity Sl. Cloudy (Clear) Urine pH 6.0 (5.0 - 8.0) Ur Specific [place] 1.025 (1.002-1.030) Urine Protein 30 H (Negative) mg/dl Urine Glucose (UA) Normal (Normal) mg/dl Urine Ketones 150 H (Negative) mg/dl Urine Occult Blood 10 H (Negative) /ul Urine Nitrite Negative (Negative) Urine Bilirubin 1 H (Negative) mg/dL Urine Urobilinogen 1 H (Normal) mg/dl Ur Leukocyte Esterase 25 H (Negative) /ul Urine RBC 0-5 SEEN (0-5) /hpf Urine WBC 0-5 SEEN (0-5) /hpf Ur Squamous Epith Cells 0-5 SEEN (5-10) /hpf Urine Bacteria 2+ (None Seen) /hpf Fine Granular Casts 0-5 SEEN (0-5) /lpf Urine Mucus 4+ (<or=2+) /hpf - Medical Decision Making Urinalysis shows 25 leukocyte esterase, few white blood cells, 2+ bacteria. I discussed with Mary Cohen, nurse practitioner who the patient saw several days ago, she reviewed her urinalysis which showed very similar findings. The patient has symptoms and clinical findings consistent with cystitis that has turned into early pyelonephritis, I do not think she needs any other labs right now since she appears very well, has normal vital signs, and it cannot be since she had a hysterectomy, and therefore meets no criteria for admission. I coordinated follow-up, she will get an injection of Rocephin here in addition to Toradol for pain control, and prescriptions for Keflex and [place]. We had initially discussed Bactrim but she said that did not work for her in the past and she prefer to try something else. She understands to return for intractable symptoms, high fevers, otherwise to follow-up with [facility]. ED Disposition - Plan for ED Patient: Disposition: Home or Assisted Living Chief Complaint: Abd Pain Diagnosis: Pyelonephritis Instructions: ED Kidney Infec Female Prescriptions: Hydrocodone/Acetaminophen [[place] 5-325 Tablet] 1 each PO Q4H PRN 2 Days #12 tablet PRN Reason: Pain Cephalexin 500 mg PO 4X/DAY #40 capsule Referrals: Tootie Figueroa MD [STAFF PHYSICIAN] - 3-5 Days
[2018-08-30 13:57] LABS: Color, Urine Yellow (Yellow); Glucose, Dipstick Normal (Normal); Nitrite-Dipstick Negative (Negative)
[2018-08-30 14:05] LABS: Leukocyte Esterase-Dipstick 25 /ul (Negative); Occult Blood-Urine 10 /ul (Negative); Protein-Dipstick 30 mg/dl (Negative); Specific Gravity, Urine 1.025 (1.002-1.030); Urine Clarity Sl. Cloudy (Clear); Urine Urobilinogen 1 mg/dl (Normal)
[2018-08-30 14:08] LABS: Urine Bilirubin Dipstick 1 mg/dL (Negative)
[2018-08-30 14:10] LABS: Ketone-Dipstick 150 mg/dl (Negative)
[2018-08-30 14:25] LABS: Bacteria 2+ /hpf (None Seen); Fine Granular Cast- Urine 0-5 SEEN /lpf (0-5); Mucous, Urine 4+ /hpf (<or=2+); Red Blood Cells-Urine 0-5 SEEN /hpf (0-5); Squamous Epithelial Cells - UA 0-5 SEEN /hpf (5-10); White Blood Cells 0-5 SEEN /hpf (0-5)
[2018-08-30] MEDS: morphine 10 MG/ML Syringe 4 MG SC (15:49)
[2018-08-30] MEDS: Ceftriaxone 500 MG Vial IM (15:50)
[2018-08-30 16:12] VITALS: BP 130/77; PULSE 72; RESP 17; O2SAT 100
--- NOTE | 2018-08-30 16:12 | ED.RN ---
DISCHARGE INSTRUCTIONS GIVEN TO AND REVIEWED WITH PATIENT, PATIENT DENIES QUESTIONS OR CONCERNS AND VOICES UNDERSTANDING OF DISCHARGE INSTRUCTIONS. PT AMBULATES OUT OF ROOM WITHOUT DIFFICULTY.
--- OUTSIDE RECORDS SUMMARY | 2018-10-25 23:40 | XMS RPT_ITS ---
:1965 Author Organization OHIP Support Name Relationship Address Phone ZAKI YEUNG Unavailable Unavailable + ZAKI YEUNG Unavailable Unavailable + BUEHLERS Unavailable [address] [place] [address] + [place] [address] VERENICE YUENG Unavailable [address] + [place] [address] CRISTY GOODMAN Unavailable [address] + [place] [address] BUEHLERS Unavailable [address] + [place] [address] VERENICE YEUNG Unavailable [address] + [place] [address] CRISTY GOODMAN Unavailable [address] + [place] [address] BUEHLERS Unavailable [address] + [place] [address] VERENICE YEUNG Unavailable [address] + [place] [address] CRISTY GOODMAN Unavailable Unavailable + BUEHLERS Unavailable [address] + [place] [address] VERENCIE YEUNG Unavailable [address] + [place] [address] CRISTY GOODMAN Unavailable 1 + [place] [address] BUEHLERS Unavailable [address] + [place] [address] VERNEICE YEUNG Unavailable [address] + [place] [address] CRISTY OGODMAN Unavailable Unavailable + [place] [address] BUEHLERS Unavailable [address] + [place] [address] YEUNG, VERENICE Unavailable [address] + [place] [address] CRISTY GOODMAN Unavailable 0 + [place] [address] BEELOY, ANICETO Unavailable [address] + [place] [address] BUEHLERS Unavailable [address] + [place] [address] GAMAL VERENICE Unavailable [address] + [place] [address] RAVEN, ANICETO Unavailable [address] + [place] [address] BUEHLERS Unavailable [address] [place] + [place] [address] YEUNG, VERENICE Unavailable [address] + [place] [address] BEELOY, ANICETO Unavailable [address] + [place] [address] BUEHLERS Unavailable [address] + [place] [address] YEUNG, VERENICE Unavailable [address] + [place] [address] RAVEN ANICETO Unavailable [address] + [place] [address] BUEHLERS Unavailable [address] + [place] [address] YEUNG, VERENICE Unavailable [address] + [place] [address] Care Team Providers Name Role Phone RIK GONZALEZ Primary Care Unavailable Jaida Siu Attending Unavailable Tootie Figueroa Attending Unavailable Tootie Figueroa Referring Unavailable RIK GONZALEZ Primary Care Unavailable Jeni Leo Attending Unavailable Tootie Figueroa Attending Unavailable RIK GONZALEZ Referring Unavailable Tootie Figueroa Attending Unavailable RIK GONZALEZ Primary Care Unavailable Tootie Figueroa Referring Unavailable [place]wabik, Mary Attending Unavailable CARLOS, RIK Referring Unavailable [place]wabik, Mary Attending Unavailable Noel, Mary Referring Unavailable CARLOS, RIK Primary Care Unavailable CARLOS, RIK Primary Care Unavailable JARRETT HOLCOMB Attending Unavailable Noel, Mary Attending Unavailable [place], Mary Referring Unavailable CARLOS, RIK Primary Care Unavailable Andrew Atkins Attending Unavailable CARLOS, RIK Primary Care Unavailable CARLOS, ANDREW Bills Attending Unavailable ANDREW GONZALEZ Referring Unavailable HOOVER, DULCE E Referring Unavailable HOOVER, DULCE E Admitting Unavailable [place], DULCE E Attending Unavailable SCHWEIKERT, ALBINA A Attending Unavailable CARLOS, ANDREW Bills Referring Unavailable KEYMATHIEU (MANAGER GOLF) Attending Unavailable KEYMATHIEU (MANAGER GOLF) Referring Unavailable SCHWEIKERT, ALBINA Rizvi Admitting Unavailable SCHWEIKERT, ALBINA Rizvi Attending Unavailable MICHAEL SNOW Attending Unavailable AARON BROWN (BRIM BLOCKER) Attending Unavailable SCHWEIKERT, ALBINA Rizvi Referring Unavailable SCHWEIKERT, ALBINA Rizvi Referring Unavailable SANTY GORE Attending Unavailable CARLOS CARNEY, ANDREW Burt Primary Care Unavailable ANDREW GONZALEZ Referring Unavailable HOOVER, DULCE Lux Attending Unavailable ANDREW GONZALEZ Referring Unavailable ROSALIE FRANKLIN (PA) Referring Unavailable RADHA ACEVEDO (BRIM BLOCKER) Attending Unavailable HOOVER, DULCE E Referring Unavailable HOOVER, DULCE E Attending Unavailable HOOVER, DULCE E Referring Unavailable CARLOS, ANDREW Bills Referring Unavailable CARLOS, ANDREW Bills Attending Unavailable SCHWEIKERT, ALBINA Rizvi Referring Unavailable ANDREW GONZALEZ Primary Care Unavailable MICHAEL SNOW Attending Unavailable ANDREW GONZALEZ Primary Care Unavailable SCHWEIKERT, ALBINA Rizvi Referring Unavailable PAYTON SHI Attending Unavailable ANDREW GONZALEZ Primary Care Unavailable KEYMATHIEU MONTAÑO Referring Unavailable KEYMATHIEU MONTAÑO Attending Unavailable ANDREW GONZALEZ Primary Care Unavailable SCHWEIKERT, ALBINA Belkys Admitting Unavailable SCHWEIKERT, ALBINA Rizvi Attending Unavailable ANDREW GONZALEZ Primary Care Unavailable SCHWEIKERT, ALBINA Rizvi Attending Unavailable ANDREW GONZALEZ Referring Unavailable ANDREW GONZALEZ Primary Care Unavailable PROBLEMS PROBLEMS DATE TYPE CONDITION / CODE ATTENDING STATUS SOURCE 08/30/2018 Unknown 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 - ZHANG, Active [place] 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, not Hospital specified as acute or Repository chronic / N12(ICD-10) 08/28/2018 Unknown R30.0 - Dysuria / [place], Active [place] R30.0(ICD-10) [facility] Repository 08/22/2018 Unknown N89.8 - Other Chongmatthias, Active [place] specified [facility] noninflammatory Hospital disorders of vagina / Repository N89.8(ICD-10) 08/22/2018 Unknown Z01.411 - Encounter Carolina, Active [place] for gynecological [facility] examination (general) Hospital (routine) with Repository abnormal findings / Z01.411(ICD-10) 04/02/2018 Active Other chest pain / KARI, Active [place] R07.89(ICD-10) MICHAEL Clinic Other [place] Repository 03/29/2018 Active Other specified SCHWEIKERT, Active [place] postprocedural states ALBINA A Clinic Other / Z98.890(ICD-10) [place] Repository 03/29/2018 Active Supraventricular SCHWEIKERT, Active [place] tachycardia / ALBINA A Clinic Other I47.1(ICD-10) [place] Repository 03/29/2018 Active Palpitations / SCHWEIKERT, Active [place] R00.2(ICD-10) [place] A Clinic Other [place] Repository 03/29/2018 Active Pre-excitation SCHWEIKERT, 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 / ALB[place] A Clinic Other I45.6(ICD-10) [place] Repository 03/29/2018 Admitting Unknown / SCHWEIKERT, Active [place] [facility] diagnosis UNK(Unknown) [facility] Repository 03/29/2018 Unknown Z12.31 - Encounter Carolina, Active [place] for screening [facility] mammogram for Hospital malignant neoplasm of Repository breast / Z12.31(ICD-10) 12/21/2017 Active Other snf SCHWEIKERT, Active [place] (current) drug ALBINA A [facility] Other therapy / [place] Z79.899(ICD-10) Repository 12/21/2017 Active Mittelschmerz / SCHWEIKERT, Active [place] N94.0(ICD-10) ALB[facility] A Clinic Other [place] Repository 11/20/2017 Unknown R10.9 - Unspecified Sherron, Jaida Active [place] abdominal pain / Community R10.9(ICD-10) Hospital Repository 11/16/2017 Active Other specified HOOVER, Active [place] diseases of DULCE E Clinic Other gallbladder / [place] K82.8(ICD-10) Repository 11/09/2017 Active Encounter for other NA Active [place] preprocedural Clinic Other examination / [place] Z01.818(ICD-10) Repository 10/26/2017 Active Right upper quadrant ANDREW GONZALEZ Active [place] pain / R10.11(ICD-10) S Clinic Other [place] Repository PROCEDURES PROCEDURES No Procedure Records FoundRESULTS RESULTS Observed: 09/05/2018 Status: F Source: [facility] 7:37 PM [facility] [place] REPOSITORY . MICRO - Microbiology PROCEDURE: Urine [...] Locations *1: This test was performed at: [facility], [address] [place] [address], [address] [place] [address] Performed By: #### CUR #### [place] [address] CBC Collected: 09/05/2018 Status: F Source: [facility] 6:58 PM [facility] [place] REPOSITORY TYPE CODE TESTS RESULT OUT OF [...] 7.4-10.4 fL MPV 8.5 Performed By: #### GFR, BMP #### [place] [address] #### ANEU, ADIFF, CBC #### [address] [address] .AUTO DIFF Collected: 09/05/2018 Status: F Source: [facility] 6:58 PM [facility] [place] REPOSITORY TYPE CODE TESTS RESULT OUT OF [...] ) Basophil, 0.10 Absolute Performed By: #### GFR, BMP #### [place] [address] #### ANEU, ADIFF, CBC #### [address] [address] .NEUABS Collected: 09/05/2018 Status: F Source: [facility] 6:58 PM [facility] [place] REPOSITORY TYPE CODE TESTS RESULT OUT OF REFERENCE UNITS RANGE LAB ANEU(LOINC) 2.85-6.16 10 3/mcL Neutrophil, 5.30 Absolute Performed By: #### GFR, BMP #### [place] [address] #### ANEU, ADIFF, CBC #### [place] [address] [place], [place] [address] BMP Collected: 09/05/2018 Status: F Source: [facility] 6:58 PM [facility] [place] REPOSITORY TYPE CODE TESTS RESULT OUT OF [...] mg/dL Calcium Lvl 9.4 Performed By: #### GFR, BMP #### [place] [address] #### FADIA WEAVER, [facility] #### [place] [address] [place], [place] [address] .GFR Collected: 09/05/2018 Status: F Source: [facility] 6:58 [facility] REPOSITORY TYPE CODE TESTS RESULT OUT OF REFERENCE UNITS RANGE LAB GFRAA(LOINC ml/min/1.73 ) sqm GFR 127 Icelandic Result Comment: GFR Population mean for , [...] 15 mL/min/1.73 square meters Performed By: #### GFR, BMP #### [place] [address] #### ANEU, ADIFF, CBC #### [address] [address] UA Collected: 09/05/2018 Status: F Source: [facility] 5:43 [facility] REPOSITORY TYPE CODE TESTS RESULT OUT OF [...] Negative Performed By: #### UA, UAMICAO #### [address] [address] .URINALYSIS MICROSCOPIC Collected: 09/05/2018 Status: F Source: [place] ([place]) 5:43 [facility] REPOSITORY TYPE CODE TESTS RESULT OUT OF RANGE REFERENCE UNITS LAB WBCUA(LOIN None Seen /hpf C) UA WBC None Seen LAB RBCUA(LOIN None Seen /hpf C) UA RBC None Seen LAB EPIUA(LOIN None Seen /hpf C) Unknown UA Squam Epithelial 0-5 Performed By: #### UA, UAMICAO #### [place] [address] [place], [place] [address] LIPID PROFILE Collected: 08/31/2018 Status: F Source: [place] 11:42 AM [facility] REPOSITORY TYPE CODE TESTS RESULT OUT OF [...] Performed By: #### L500.4100, L501.0100, L501.9520 #### [facility] [address] [place], [place], [address] GLUCOSE Collected: 08/31/2018 Status: F Source: [place] 11:42 AM [facility] REPOSITORY TYPE CODE TESTS RESULT OUT OF RANGE REFERENCE UNITS LAB L501.0100 74-106 mg/dL Normal GLU 85 Result Comment: Please note revised GLUCOSE reference range effective 2017. Performed By: #### L500.4100, L501.0100, L501.9520 #### [facility] [address] [place], [address] THYROID STIM HORMONE Collected: 08/31/2018 Status: F Source: [place] ([facility]) 11:42 AM [facility] REPOSITORY TYPE CODE TESTS RESULT OUT OF RANGE REFERENCE UNITS LAB L501.9520 0.358-3.74 uIU/mL Normal TSH 2.62 Performed By: #### L500.4100, L501.0100, L501.9520 #### [facility] [address] [place], [address] EMERGENCY DEPARTMENT Observed: 08/30/2018 Status: F Source: [place] SUMMARY 3:21 PM [facility] REPOSITORY [facility] Medical Records Department [address] [facility] [place] [address] Emergency Department Summary 08/30/18 1334 MR#: [id number] Acct: [id number] Name: NICKI DELACRUZ Rep #: [id number] : 1965 53 From: Jarrett Holcomb MD [...] pH 6.0 (5.0 - 8.0) Ur Specific [place] 1.025 (1.002-1.030) - Medical Decision Making Urinalysis [...] pain control, and prescriptions for Keflex and [place]. We had initially discussed Bactrim but she said that did not work for her in the past and she prefer to try something else. She understands to return for intractable symptoms, high fevers, otherwise to follow-up with HEALTH PHYSICS TECHNICIAN. ED Disposition - Plan for ED Patient: Disposition: Home or Assisted Living Chief Complaint: Abd Pain Diagnosis: Pyelonephritis Instructions: ED Kidney Infec Female Prescriptions: Hydrocodone/Acetaminophen [[place] 5-325 Tablet] 1 each PO Q4H PRN 2 Days #12 tablet PRN Reason: Pain Cephalexin 500 mg PO 4X/DAY #40 capsule Referrals: Tootie Figueroa MD [STAFF PHYSICIAN] - 3-5 Days What to do if you have Problems For any increased pain, shortness of breath, bleeding, nausea or vomiting, chest pain, or any unexpected problems, contact your Primary Care Provider. Call [facility] ([phone]) or report to the closest Emergency Room. Call 911 if necessary. 08/30/18 1521 <Electronically signed by Jarrett Holcomb MD> Date Jarrett Holcomb MD Cosigner Signature (If Indicated): Date CC: RIK GONZALEZ URINALYSIS, COMPLETE Collected: 08/30/2018 Status: F Source: [place] 1:40 PM [facility] REPOSITORY Order Comment: How was Urine Obtained? SET BUILDER TO SPECIFY TYPE CODE TESTS RESULT OUT [...] 0-5 SEEN Performed By: #### L400.0001 #### [facility] [address] [facility] [address] [place], [place], [id number] Observed: 08/28/2018 Status: F Source: [place] CULTURE, URINE 12:00 AM [facility] REPOSITORY Urine Culture ORGANISM 1: Presumptive E. coli Guild Count 11,000-25,000 Presumptive E. coli: REACTION Amoxacillin/Clavulanic [...] <=20 S (NF) indicates non-formulary drug at [facility]. Approval by Infectious Disease Specialist required before non-formulary drugs may be ordered and/or dispensed. Performed By: #### M100.0650 #### [facility] [address] [place], [place], [id number] Observed: 08/21/2018 Status: F Source: [place] CULTURE, GENITAL 6:54 PM [facility] COMPREHENSIVE REPOSITORY Reason for Exam: vaginal discharge Gram Stain Score = 0 Interpretation: 0-3 Normal, 4-6 Intermediate, 7-10 Positive BV Gram Stain 4+ Gram positive rods 2+ Epithelial cells Gent Cult Comp Normal vaginal alexandro isolated. No yeast, Gardnerella, Neisseria or beta-hemolytic Streptococcus isolated. Performed By: #### M100.1600 #### [facility] [address] [place], [address] ROOM SERVICE RUNNER OFFICE VISIT Observed: 08/21/2018 Status: F Source: [place] REPORT 4:47 PM [facility] REPOSITORY [facility] [address] [place] [address] OFFICE VISIT Date of Service: 08/21/18 MR#: [id number] Acct: [id number] Name: NICKI DELACRUZ Rep #: [id number] : 1965 Provider: Tootie Figueroa MD Age/Sex: 53/F Location: [facility] Status: Signed Intake Vital Signs08/21/18 Height 5 ft 2 in 08/21/18 Weight: 150 lb 08/21/18 Body Mass Index (BMI) 27.4 08/21/18 Blood Pressure 120/72 Intake Visit Reasons: ANNUAL Chief Complaint: est annual Military Lawyer Required: No Is patient in pain?: No [...] History Abnormal Pap smear of cervix (Acute) Xswud-Chbxycwex-Ozwrd syndrome (Acute) Surgical History S/P (Resolved) S/P [...] Yes additional social history: Patient works at [employer] History 3 Elective abortions Hx Para [...] distress, well developed, well groomed [facility] Head: normal to inspection, normocephalic Ears: [...] CC: PROGRESS Observed: 06/26/2018 Status: COMPLETED Source: [place] 3:44 PM [facility] [place] REPOSITORY HNO ID: [id number] Author: Andrew Gonzalez Service: (none) Author Type: [...] we'll have her follow up with the lay out technician she has almost daily headaches and all [...] Cyst of Right Ovary Biliary Dyskinesia Wpw (Zemds-Zrhthesdw-Vywki Syndrome) Gastro-Esophageal Reflux Disease Without Esophagitis Chronic Sinusitis, Unspecified Benign Neoplasm of Unspecified Ovary Asymptomatic Menopausal State Anxiety Disorder, Unspecified Acquired Absence of Both Cervix and Uterus Paroxysmal Supraventricular Tachycardia (Hcc) Palpitations 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 Current Use of Antiarrhythmic Drug Status Post [...] MD CNOV Observed: 06/26/2018 Status: COMPLETED Source: [place] 3:30 PM [facility] REPOSITORY Office Visit (FAMPBR) NICKI DELACRUZ ([id number]) 1965 F NFR Date Time Provider Department [...] we'll have her follow up with the lay out technician she has almost daily headaches and all [...] Cyst of Right Ovary Biliary Dyskinesia Wpw (Wynci-Zypkopuqo-Waelf Syndrome) Gastro-Esophageal Reflux Disease Without Esophagitis Chronic Sinusitis, Unspecified Benign Neoplasm of Unspecified Ovary Asymptomatic Menopausal State Anxiety Disorder, Unspecified Acquired Absence of Both Cervix and Uterus Paroxysmal Supraventricular Tachycardia (Hcc) Palpitations Snf Current Use of Antiarrhythmic Drug Status Post [...] QUADRIVALENT AGE 3 YRS PLUS + IM [[id number]] Order #: [id number] TDAP VACCINE AGE 7+ IM [[id number]] Order #: [id number] traZODone (DESYREL) 50 mg tabletTake 1 tablet [...] 3 CONSULT TO GASTROENTEROLOGY [9010] Order #: [id number]: 1 ondansetron (ZOFRAN) 4 mg tabletTake 1 tablet by mouth every 8 hours as needed.Disp: 6 tabletRfl: 0 CONSULT TO NEUROLOGY [9019] Order #: [id number]: 1 MRI LIVER WO/W IVCON [[id number]] Order #: [id number] FUTURE MRI 3D POST PROCESSING [[id number]] Order #: [id number] FUTURE iv contrast (will be provided with [...] FOR* More... 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 WPW (Juvuq-Zssbrtjiq-Jkjge syndrome) [I45.6] Gastro-esophageal reflux disease without esopha*INVALID FOR* Chronic sinusitis, unspecified [J32.9] INVALID FOR* 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] INVALID FOR* Asymptomatic menopausal state [Z78.0] INVALID FOR* Anxiety disorder, unspecified [F41.9] INVALID FOR* Acquired absence of both cervix and uterus [Z90*INVALID FOR* Paroxysmal supraventricular tachycardia (HCC) [* Palpitations [R00.2] intermediate current use of antiarrhythmic drug [Z* More... [...] 06/27/18 PROGRESS Observed: 05/10/2018 Status: COMPLETED Source: [place] 3:57 PM [facility] OTHER CAMPUS REPOSITORY HNO ID: [id number] Author: Aaron Brown Service: (none) Author Type: [...] was referred to Dr. Mcknight at the [facility]. 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; attempt at catheter ablation 11/2016 failed; she continues to experience intermittent palpitations and tachycardia despite treatment with flecainide; successful RFCA 03/2018 PAST SURGICAL HISTORY Procedure Laterality Date - BLADDER SURGERY HX 11/2015 bladder sling - DELIVERY ONLY 85, 88,92 , low cervical X3 - ENLARGE BREAST WITH IMPLANT 11/2007 Breast augmentation - IUD INSERTION (HEALTH PHYSICS TECHNICIAN DEPT)_*FL 08/30/2007 Mirena - removed - OOPHORECTOMY, PART/TOTAL UNILAT/BILAT 2016 - REMOVE TONSILS/ADENOIDS,<12 Y/O 1968 - S PK LAV[facility] [id number] 2014 lavh RICKY biltareal salpingectomy - SVT ABLATION W/ EP COMPLETE 11/24/2016 [facility], Dr. Mcknight; right midseptal AP unable to [...] CARDIOVASCULAR MEDICINE TESTING: Electrocardiogram: SR 69 bpm, AR 114 msec, QRS 94 msec, QTC 435 msec I have personally reviewed the Electrocardiogram. IMPRESSION: Ms. Delacruz is a 52 year old female of Dr. 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 She is status post an RF catheter ablation to the left posterior septal accessory pathway on March 28, 2018. She believes she has had episodes of bradycardia as well as tachycardia determined by the [employer]. She has experienced occasional fluttering sensation lasting [...] Plan: EKG WITH INTERPRETATION Payton Brown, MSN, LIME MIXER.BRIM BLOCKER BOBBIOV Observed: 05/10/2018 Status: COMPLETED Source: [place] 3:30 PM CL[facility] OTHER CAMPUS REPOSITORY Office Visit (AGCARDPHRA) NICKI DELACRUZ ([id number]) 1965 F NFR Date Time Provider Department 05/10/18 3:30 PM AARON BROWN (BRIM BLOCKER) AGCARDPHRA During your visit today, we recorded the following information about you: Pulse Blood pressure Weight Height 85/minute 110/76 66.4 kg 1.575 m Alycia Vernon CMA 05/10/2018 3:26 PM Signed Mrs. Delacruz is here for a 6 week hospital follow up. No cardiac complaints today. KANDI Sutton, MSN, LIME MIXER.BRIM BLOCKER 05/10/2018 4:59 PM Signed HISTORY OF PRESENT [...] was referred to Dr. Mcknight at the [facility]. 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 drug flecainide; indication: symptomatic PSVT with WPW syndrome - Other anxiety states - Palpitations - Paroxysmal supraventricular tachycardia (HCC) see WPW Syndrome - Stress incontinence, female - Unspecified asthma(493.90) - WPW (Fkngx-Pbzczmnmo-Rncpn syndrome) associated with symptomatic SVT; attempt at catheter ablation 11/2016 failed; she continues to experience intermittent palpitations and tachycardia despite treatment with flecainide; successful RFCA 03/2018 PAST SURGICAL HISTORY Procedure Laterality Date - BLADDER SURGERY HX 11/2015 bladder sling - DELIVERY ONLY 85, 88,92 , low cervical X3 - ENLARGE BREAST WITH IMPLANT 11/2007 Breast augmentation - IUD INSERTION (HEALTH PHYSICS TECHNICIAN DEPT)_*FL 08/30/2007 Mirena - removed - OOPHORECTOMY, PART/TOTAL UNILAT/BILAT 2017 - REMOVE TONSILS/ADENOIDS,<12 Y/O 1968 - S PK [facility] [id number] 2013 lav RICKY biltareal salpingectomy - SVT ABLATION W/ EP COMPLETE 11/24/2016 [facility], Dr. Mcknight; right midseptal AP unable to [...] CARDIOVASCULAR MEDICINE TESTING: Electrocardiogram: SR 69 bpm, AR 114 msec, QRS 94 msec, QTC 435 msec I have personally reviewed the Electrocardiogram. IMPRESSION: Ms. Delacruz is a 52 [address] of Dr[address] 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 She is status [...] Plan: EKG WITH INTERPRETATION Payton Brown, MSN, LIME MIXER.JESSICA Brown, MSN, LIME MIXER.JESSICA 05/10/2018 4:15 PM Signed Tachycardia (Fast Heartbeat) [...] disease, which can cause tachycardia. Developed by [employer]. Published by [employer]. Copyright ?2013 [employer] and/or one of its subsidiaries. All rights reserved. Referring Provider: ALBINA LUONG [6105] Allergies As of Date: 05/10/2018 [...] pain/cramping Date Reviewed: 05/10/2018 Reviewed by: Aaron BucknerPlasma Processing Centrifuge OperatorHelio Brown - Fully Assessed Reason for Visit: Hospital Follow Up [177] Cmt: s/p catheter ablation Primary Visit Diagnosis:Paroxysmal supraventricular tachycardia (HCC) [I47.1] Other Visit Diagnosis:Palpitations [R00.2] Order(s):EKG WITH INTERPRETATION [[id number]] Order #: [id number]: 1 Prescriptions as of 05/10/2018 Sig: TRAZODONE [...] FOR* More... Rapid palpitations [R00.2] INVALID FOR*03/23/2018 Dvivp-Jyqbrgaye-Wrldq (WPW) syndrome [I45.6] INVALID FOR*03/23/2018 Chest discomfort [R07.89] INVALID FOR*11/13/2015 Abnormal uterine bleeding [N93.9] INVALID FOR*09/02/2014 Anxiety [F41.9] INVALID FOR* Primary insomnia [F51.01] INVALID FOR* Stress incontinence in female [N39.3] INVALID FOR* Encounter for screening colonoscopy [Z12.11] INVALID FOR* Complex cyst of right ovary [N83.291] INVALID FOR* Biliary dyskinesia [K82.8] INVALID FOR* More... 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 [...] disease, which can cause tachycardia. Developed by [employer]. Published by [employer]. Copyright ?2013 [employer] and/or one of its subsidiaries. All rights [...] 05/10/18 CNCO Observed: 04/18/2018 Status: COMPLETED Source: [facility] 12:00 AM CLINIC OTHER CAMPUS REPOSITORY Letter Text [facility] [place] [address] [facility] [address] Dept: [phone] Dept Albina Luong MD April 18, 2018 Nicki Delacruz [address] [facility] [address] 1965 Dear , Our office has tried to contact you but have been unsuccessful. Please contact our office regarding scheduling a Holter Monitor. Please notify us of any change of your phone number or address. Sincerely, Albina Luong M.D. (Signed electronically to expedite mailing) CHRISS Observed: 04/18/2018 Status: COMPLETED Source: [facility] 12:00 AM CLINIC OTHER CAMPUS REPOSITORY Telephone (AGCARDPOB) NICKI DELACRUZ ([id number]) 1965 F NFR Date Time Provider Department [...] FOR* More... 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 Status post ablation of accessory bypass tract *INVALID FOR* Encounter Status:Closed by LATASHA PEDROZA on 04/18/18 CHRISS Observed: 04/04/2018 Status: COMPLETED Source: [facility] 12:00 AM CLINIC OTHER CAMPUS REPOSITORY Telephone (AGCARDPOB) NICKI DELACRUZ ([id number]) 1965 F NFR Date Time Provider Department [...] Visit Diagnosis:Palpitations [R00.2] Order(s):HOLTER MONITOR 48 HOUR [[id number]] Order #: [id number] FUTURE Prescriptions as of 04/04/2018 Sig: ONDANSETRON [...] FOR* More... 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 WPW (Ibopg-Tnqmqhybw-Rwcra syndrome) [I45.6] Gastro-esophageal reflux disease without esopha*INVALID FOR* Chronic sinusitis, unspecified [J32.9] INVALID FOR* 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] INVALID FOR* Asymptomatic menopausal state [Z78.0] INVALID FOR* Anxiety disorder, unspecified [F41.9] INVALID FOR* Acquired absence of both cervix and uterus [Z90*INVALID FOR* Paroxysmal supraventricular tachycardia (HCC) [* Palpitations [R00.2] intermediate current use of antiarrhythmic drug [Z* More... Status post ablation of accessory bypass tract *INVALID FOR* Encounter Status:Closed by ALBINA LUONG MD on 04/04/18 ED NOTE Observed: 04/03/2018 Status: COMPLETED Source: [facility] 12:59 AM [facility] REPOSITORY HNO ID: [id number] Author: Kimber (Rn) VINCENT Martinez Service: Emergency Medicine Author Type: Registered Nurse Type: ED Notes Filed: 04/03/2018 12:59 AM Note Text: Discharge instructions and prescriptions given to pt. Pt verbalized understanding of follow up with PCP and s/s to return to ED. All questions answered. Pt ambulatory by self on departure. ED PROV NOTE Observed: 04/03/2018 Status: COMPLETED Source: [facility] 12:59 AM [facility] REPOSITORY HNO ID: [id number] Author: Michael Snow MD Service: Emergency Medicine [...] family history with her grandfather having an W[place] in his 50s or 60s. She denies history of VTE. She is currently not on anticoagulation or antiarrhythmics following her procedure. 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; attempt at catheter ablation 11/2016 failed; she continues to experience intermittent palpitations and tachycardia despite treatment with flecainide; successful RFCA 03/2018 PAST SURGICAL HISTORY Procedure Laterality Date - BLADDER SURGERY HX 11/2015 bladder sling - DELIVERY ONLY 85, 88,92 , low cervical X3 - ENLARGE BREAST WITH IMPLANT 11/2007 Breast augmentation - IUD INSERTION (HEALTH PHYSICS TECHNICIAN DEPT)_*FL 08/30/2007 Mirena - removed - OOPHORECTOMY, PART/TOTAL UNILAT/BILAT 2016 - REMOVE TONSILS/ADENOIDS,<12 Y/O 1969 - S PK LAVH [id number] 2013 lavh RICKY biltareal salpingectomy - SVT ABLATION W/ EP COMPLETE 11/24/2016 [facility], Dr. Mcknight; right midseptal AP unable to [...] 0.06 (*) 0.00 - 0.05 thou/cmm Abs. [place] 0.75 (*) 0.27 - 0.70 thou/cmm All other components within normal limits [facility] TROPONIN I ([facility] ED) - Abnormal; Notable for the following: [facility] Troponin I 0.360 (*) 0.015 - 0.045 ng/ml All other components within normal limits [facility] TROPONIN I ([facility] ED) - Abnormal; Notable for the following: [facility] Troponin I 0.331 (*) 0.015 - 0.045 ng/ml All other components within normal limits MDRD GFR Results for orders placed or performed during the hospital encounter of 04/02/18 XR CHEST 2V FRONTAL/LAT Result Value Ref Range S3B Multi Sensor Operator EXAMINATION: CHEST RADIOGRAPH (2 VIEW FRONTAL AND [...] (GATED) WO/W IVCON Result Value Ref Range S3B Multi Sensor Operator CTA of the chest, abdomen, and pelvis [...] ABD/PEL W IVCON Result Value Ref Range S3B Multi Sensor Operator CTA of the chest, abdomen, and pelvis [...] Lymph 3.52 1.18 - 3.74 thou/cmm Abs. [place] 0.75 (H) 0.27 - 0.70 thou/cmm Abs. [...] ED NOTE Observed: 04/02/2018 Status: COMPLETED Source: [facility] 11:04 PM CLINIC OTHER CAMPUS REPOSITORY HNO ID: [id number] Author: Kimber (Rn) VINCENT Martinez Service: Emergency Medicine Author Type: Registered Nurse Type: ED Notes Filed: 04/02/2018 11:04 PM Note Text: Patient returned to the Emergency Department. CTA CHEST (GATED) Observed: 04/02/2018 Status: F Source: [facility] WO/W IV CON 10:27 PM HEALTH SYSTEM REPOSITORY Performed at [facility] APPROVED BY: PORSHA KAY MD CTA of [...] IV CON Observed: 04/02/2018 Status: F Source: [facility] 10:27 PM HEALTH SYSTEM REPOSITORY Performed at [facility] APPROVED BY: PORSHA KAY MD CTA of [...] ED NOTE Observed: 04/02/2018 Status: COMPLETED Source: [facility] 8:52 PM [facility] REPOSITORY HNO ID: [id number] Author: Kimber (Rn) VINCENT Martinez Service: Emergency Medicine Author Type: Registered Nurse Type: ED Notes Filed: 04/02/2018 9:02 PM Note Text: Called ER Transportation for transport pt to CT at this time [facility] TROPONIN I Collected: 04/02/2018 Status: F Source: [facility] 8:52 PM HEALTH SYSTEM REPOSITORY TYPE CODE TESTS RESULT OUT OF REFERENCE UNITS RANGE LAB ERTRP(LOINC 0.015-0.045 ng/ml ) High [facility] Troponin I 0.331 Performed By: #### ERTRP #### [facility] [address] [place] [address] ED PROV NOTE Observed: 04/02/2018 Status: COMPLETED Source: [facility] 8:38 PM [facility] OTHER [place] REPOSITORY HNO ID: [id number] Author: Michael Snow MD Service: Emergency Medicine [...] is borderline elevated but no ST elevation [place] on EKG. This troponin elevation may be because of the cardiac ablation and therefore we will trend troponins. We will discuss with cardiology but patient likely will need admitted for observation. Michael Snow MD 04/02/18 2100 CHEST 2 VIEWS Observed: 04/02/2018 Status: F Source: [facility] 7:31 PM HEALTH SYSTEM REPOSITORY Performed at [facility] APPROVED BY: Baljeet Lamb MD EXAMINATION: CHEST [...] assessment. HEMOGRAM/DIFF Collected: 04/02/2018 Status: F Source: [facility] 5:52 PM HEALTH SYSTEM REPOSITORY TYPE CODE [...] 3.52 LAB MONON(LOINC) 0.27-0.70 thou/cmm High Abs. [place] 0.75 LAB EOSN(LOINC) 0.00-0.31 thou/cmm Abs. Eosin 0.08 LAB BASON(LOINC) 0.01-0.08 thou/cmm Abs. Baso 0.04 Performed By: #### CBCD1 #### [address] [address] BASIC PANEL Collected: 04/02/2018 Status: F Source: [facility] 5:52 PM HEALTH SYSTEM REPOSITORY TYPE CODE [...] Gap 11 Performed By: #### P8 #### [address] [address] MDRD GFR Collected: 04/02/2018 Status: F Source: [facility] 5:52 PM HEALTH SYSTEM REPOSITORY TYPE CODE TESTS RESULT OUT OF RANGE REFERENCE UNITS LAB GFRFN(LOINC >60mL/min/1.73m ) 2 eGFR >60 Result Comment: If the patient is , multiply the result by 1.210. Performed By: #### GFR #### [address] [address] [facility] TROPONIN I Collected: 04/02/2018 Status: F Source: [facility] 5:52 PM HEALTH SYSTEM REPOSITORY TYPE CODE TESTS RESULT OUT OF REFERENCE UNITS RANGE LAB ERTRP(LOINC 0.015-0.045 ng/ml ) High [facility] Troponin I 0.360 Performed By: #### ERTRP #### [facility] [address] [place], [place] [address] EKG (AK,AV,EU,FV,HL,PAUL,MM,SP) Observed: Status: F Source: [facility] 04/02/2018 5:45 PM CLINIC OTHER CAMPUS REPOSITORY NAME : NICKI DELACRUZ PID : [id number] : 1965 Gender : Female Race : ORD : [id number] Procedure Date : Apr 02 2018 17:45 [...] ms QTC Calculation(Bezet) : 428 ms P [place] : 60 degrees R [place] : 57 degrees T [place] : 19 degrees Test Reason : Chest Pain Location : 4 : AKED ED Overread By : Kanika Bennett Editted By : Kanika Bennett Referred By : BALJEET MICHELLE Acquired by : Sanjuanita Taylor ED TRIAGE NOTE Observed: 04/02/2018 Status: COMPLETED Source: [facility] 5:37 PM CLINIC OTHER CAMPUS REPOSITORY HNO ID: [id number] Author: Baljeet (Marcus) Tutu Service: Emergency Medicine Author Type: Physician Environmental Sustainability Manager Type: ED Triage Notes Filed: 04/02/2018 5:38 [...] Jaime CNDS Observed: 03/29/2018 Status: COMPLETED Source: [facility] 9:51 AM CLINIC OTHER CAMPUS REPOSITORY HNO ID: [id number] Author: Aaron Brown Service: Electrophysiology Author Type: [...] 6-8 weeks. OTHER PROBLEMS/DIAGNOSIS: Principal Problem: WPW (Jypcc-Abqlpayfx-Ecxhl syndrome) Active Problems: Paroxysmal supraventricular tachycardia (HCC) [...] Patient/Parents to call for appointment?: No Albina Loung [phone] [address] [facility] [address] [facility] [address] PCP Requested Referral FOLLOW-UP APPOINTMENTS ALREADY SCHEDULED WITH A [facility] PROVIDER: Future Appointments Date Time Provider [...] of this patient. SIGNATURE: Payton Brown, MSN, LIME MIXER.BRIM BLOCKER PAGER/CONTACT #: [phone] DATE: March 29, 2018 TIME: 9:51 AM EKG (AK,AV,EU,FV,HL,PAUL,MM,SP) Observed: Status: F Source: [facility] 03/29/2018 7:58 AM CLINIC OTHER CAMPUS REPOSITORY NAME : NICKI DELACRUZ PID : [id number] : 1965 Gender : Female Race : ORD : [id number] Procedure Date : Mar 29 2018 07:58 [...] ms QTC Calculation(Bezet) : 413 ms P [place] : 65 degrees R [place] : 42 degrees T [place] : 3 degrees Test Reason : Arrhythmia Location : 21 : 2100 2115 Overread By : MD Verduzco Vinay Editted By : MD Verduzco Vinay Referred By : ALBINA LUONG Acquired by : Ana Mack MDRD GFR Collected: 03/29/2018 Status: F Source: [facility] [place] 5:00 AM HEALTH SYSTEM REPOSITORY TYPE CODE TESTS RESULT OUT OF RANGE REFERENCE UNITS LAB GFRFN(LOINC >60mL/min/1.73m ) 2 eGFR 56.32 Result Comment: If the patient is , multiply the result by 1.210. Performed By: #### GFR #### [place] [address] HEMOGRAM Collected: 03/29/2018 Status: F Source: [facility] [place] 5:00 AM HEALTH SYSTEM REPOSITORY TYPE CODE [...] MPV 10.2 Performed By: #### CBC1 #### [place] [address] BASIC PANEL Collected: 03/29/2018 Status: F Source: [facility] 5:00 AM HEALTH SYSTEM REPOSITORY TYPE CODE [...] Gap 11 Performed By: #### P8 #### [place] [address] NURSING PROG Observed: 03/28/2018 Status: COMPLETED Source: [facility] 9:56 PM [facility] REPOSITORY HNO ID: [id number] Author: Sanjuanita (Rn) VINCENT Dick Service: Nursing [...] ANES POST Observed: 03/28/2018 Status: COMPLETED Source: [facility] 4:08 PM [facility] REPOSITORY HNO ID: [id number] Author: Andrew Childs Service: Anesthesiology Author Type: [...] 1426 PROGRESS Observed: 03/28/2018 Status: COMPLETED Source: [facility] 2:59 PM [facility] REPOSITORY HNO ID: [id number] Author: Daphney BucknerRn) VINCENT Sears Service: Nursing Author Type: Registered Nurse Type: Progress Notes Filed: 03/28/2018 3:00 PM Note Text: Patient c/o midsternal sharp chest pain and back back between her shoulder rated 8/10. Aaron Cunha notified. No further orders obtained at this time. OPERATIVE NO Observed: 03/28/2018 Status: COMPLETED Source: [facility] 12:54 PM [facility] REPOSITORY HNO ID: [id number] Author: Albina Luong Service: Electrophysiology Author Type: Physician Type: Operative Report Filed: 03/28/2018 12:54 PM Note Text: See paper report filed in paper chart today. Albina Luong MD March 28, 2018 12:54 PM BRIEF OP NOT Observed: 03/28/2018 Status: COMPLETED Source: [facility] 12:49 PM [facility] REPOSITORY HNO ID: [id number] Author: Albina Luong Service: Electrophysiology Author Type: Physician Type: Brief Op Note Filed: 03/28/2018 12:54 PM Note Text: BRIEF OPERATIVE / PROCEDURE NOTE LOG ID: [id number] SURGERY/PROCEDURE DATE: 03/28/2018 SURGEON(S)/PROCEDURALIST(S) AND LOCK UP WORKER(S): Surgeon(s) and Role: * Albina Luong - Primary No Additional Staff SURGERY/PROCEDURE(S): Comprehensive EP study with radiofrequency catheter ablation of supraventricular tachycardia (SVT) ANESTHESIA: General FINDINGS: Patient arrived to EP laboratory in sinus rhythm with manifest ventricular pre-excitation aka Doeux-Sfcrqisrq-Ibrtm pattern. Comprehensive EP study was performed. This [...] PRE-OP/PRE-PROCEDURE DIAGNOSIS: 1) paroxysmal supraventricular tachycardia; 2) Pluby-Dlghmaque-Sihls syndrome; 3) palpitations POST-OP/POST-PROCEDURE DIAGNOSIS: 1) paroxysmal supraventricular tachycardia; 2) Lfcvw-Xfcoovuvb-Bbhwc syndrome; 3) palpitations SIGNATURE: Albina Luong MD PATIENT NAME: Nicki Delacruz DATE: March 28, 2018 TIME: 12:49 PM PAGER/CONTACT #: [phone] HISTORY PHYSICAL Observed: 03/28/2018 Status: COMPLETED Source: [facility] 8:17 AM [facility] REPOSITORY HNO ID: [id number] Author: Albina Luong Service: Electrophysiology Author Type: Physician Type: HANDP Filed: 03/28/2018 8:18 AM Note Text: [facility] (EP) - [facility] HANDP from 03/23/2018 copied forward here: Office Visit 03/23/2018 [facility] Cardiology [facility] Paroxysmal [...] was referred to Dr. Mcknight at the [facility]. Her brother has a history of WPW [...] discussed and reviewed the records available in [employer]. He reviewed the treatment options available one option would be to increase the flecainide dosing. This would be a short-term strategy. A longer-term strategy would be to try to repeat catheter ablation. Patient prefers to undergo a catheter ablation procedure which is scheduled for March 28 at [facility]. ? Procedure will be under general anesthesia. [...] 3 ? Occupational History Occupation Employer Comment [employer] ? Social History Main Topics Smoking status: [...] 08/30/2007 ? Mirena, removed March 10 - intermediate current use of antiarrhythmic drug ? ? flecainide; indication: symptomatic PSVT with WPW syndrome - Other anxiety states ? - Palpitations ? - Paroxysmal supraventricular tachycardia (HCC) ? - Stress incontinence, female ? - Unspecified asthma(493.90) ? - WPW (Vjvbq-Iedklfide-Imobe syndrome) ? ? associated with symptomatic SVT; [...] 11/2007 ? Breast augmentation - IUD INSERTION (HEALTH PHYSICS TECHNICIAN DEPT)_*FL ? 08/30/2007 ? Mirena - removed - OOPHORECTOMY, PART/TOTAL UNILAT/BILAT ? 2016 - REMOVE TONSILS/ADENOIDS,<12 Y/O ? 1968 - S PK LAVH [id number] ? 2013 ? lavh RICKY biltareal salpingectomy - SVT ABLATION W/ EP COMPLETE ? 11/24/2016 ? [facility], Dr. Mcknight; right midseptal AP unable to [...] with an ablation on March 28 at [facility]. She was instructed that she does need a cattle driver to and from the hospital. She'll [...] ANES PREOP Observed: 03/28/2018 Status: COMPLETED Source: [facility] 8:12 AM CLINIC OTHER CAMPUS REPOSITORY HNO ID: [id number] Author: Aron Moralesjustin Service: Anesthesiology Author Type: [...] Cyst of Right Ovary Biliary Dyskinesia Wpw (Nhcqn-Ywukscdip-Drudx Syndrome) Gastro-Esophageal Reflux Disease Without Esophagitis Chronic Sinusitis, Unspecified Benign Neoplasm of Unspecified Ovary Asymptomatic Menopausal State Anxiety Disorder, Unspecified Acquired Absence of Both Cervix and Uterus Paroxysmal Supraventricular Tachycardia (Hcc) Palpitations Snf Current Use of Antiarrhythmic Drug PAST MEDICAL HISTORY Diagnosis Date - Allergic rhinitis due to other allergen - Encounter for insertion or removal of intrauterine contraceptive device 08/30/2007 Mirena, removed March 10 - intermediate current use of antiarrhythmic drug flecainide; indication: symptomatic PSVT with WPW syndrome - Other anxiety states - Palpitations - Paroxysmal supraventricular tachycardia (HCC) - Stress incontinence, female - Unspecified asthma(493.90) - WPW (Sdgqp-Ihaogmisr-Owayx syndrome) associated with symptomatic SVT; attempt at catheter ablation 11/2016 failed; she continues to experience intermittent palpitations and tachycardia despite treatment with flecainide PAST SURGICAL HISTORY Procedure Laterality Date - BLADDER SURGERY HX 11/2015 bladder sling - DELIVERY ONLY 85, 88,92 , low cervical X3 - ENLARGE BREAST WITH IMPLANT 11/2007 Breast augmentation - IUD INSERTION (HEALTH PHYSICS TECHNICIAN DEPT)_*FL 08/30/2007 Mirena - removed - OOPHORECTOMY, PART/TOTAL UNILAT/BILAT 2016 - REMOVE TONSILS/ADENOIDS,<12 Y/O 1968 - S PK LAVH [id number] 2013 lavh RICKY biltareal salpingectomy - SVT ABLATION W/ EP COMPLETE 11/24/2016 [facility], Dr. Mcknight; right midseptal AP unable to [...] March 28, 2018 TIME: 8:12 AM CSN: [id number] HEMOGRAM Collected: 03/28/2018 Status: F Source: [facility] 7:05 AM HEALTH SYSTEM REPOSITORY TYPE CODE [...] MPV 10.3 Performed By: #### CBC1 #### [facility] [address] [place] [address] BASIC PANEL Collected: 03/28/2018 Status: F Source: [facility] 7:05 HEALTH SYSTEM REPOSITORY TYPE CODE TESTS [...] Gap 8 Performed By: #### P8 #### [facility] [address] [place], [place] [address] CNPN Observed: 03/28/2018 Status: COMPLETED Source: [facility] 12:00 AM CLINIC OTHER CAMPUS REPOSITORY Telephone (AKPRAD) NICKI DELACRUZ ([id number]) 1965 F NFR Date Time Provider Department [...] FOR* More... 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 Encounter Status:Closed by ALBINA LUONG MD on 03/28/18 PROGRESS Observed: 03/23/2018 Status: COMPLETED Source: [facility] 4:52 PM CLINIC OTHER CAMPUS REPOSITORY O ID: [id number] Author: Mathieu Chance) Shahid Service: (none) Author [...] was referred to Dr. Mcknight at the [facility]. Her brother has a history of WPW [...] discussed and reviewed the records available in [facility]. He reviewed the treatment options available one option would be to increase the flecainide dosing. This would be a short-term strategy. A longer-term strategy would be to try to repeat catheter ablation. Patient prefers to undergo a catheter ablation procedure which is scheduled for March 28 at [facility]. Procedure will be under general anesthesia. 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[employer] Social History Main Topics Smoking status: Never [...] device 08/30/2007 Mirena, removed March 10 - intermediate current use of antiarrhythmic drug flecainide; indication: symptomatic PSVT with WPW syndrome - Other anxiety states - Palpitations - Paroxysmal supraventricular tachycardia (HCC) - Stress incontinence, female - Unspecified asthma(493.90) - WPW (Kmqpg-Jmysgewpe-Pnspr syndrome) associated with symptomatic SVT; attempt at catheter ablation 11/2016 failed; she continues to experience intermittent palpitations and tachycardia despite treatment with flecainide PAST SURGICAL HISTORY Procedure Laterality Date - BLADDER SURGERY HX 11/2015 bladder sling - DELIVERY ONLY 85, 88,92 , low cervical X3 - ENLARGE BREAST WITH IMPLANT 11/2007 Breast augmentation - IUD INSERTION (HEALTH PHYSICS TECHNICIAN DEPT)_*FL 08/30/2007 Mirena - removed - OOPHORECTOMY, PART/TOTAL UNILAT/BILAT 2016 - REMOVE TONSILS/ADENOIDS,<12 Y/O 1968 - S PK LAVH [id number] 2013 lavh RICKY biltareal salpingectomy - SVT ABLATION W/ EP COMPLETE 11/24/2016 [facility], Dr. Mcknight; right midseptal AP unable to [...] with an ablation on March 28 at [facility]. She was instructed that she does need a cattle driver to and from the hospital. She'll receive a call the night before from the [facility] instructing her on time of arrival. She will be NPO from midnight the day before. Follow-up appointment will be determined after the procedure and at the time of discharge. CNOV Observed: 03/23/2018 Status: COMPLETED Source: [facility] 3:30 PM CLINIC OTHER CAMPUS REPOSITORY Office Visit (AGCARDPOB) NICKI DELACRUZ ([id number]) 1965 F NFR Date Time Provider Department [...] was referred to Dr. Mcknight at the [facility]. Her brother has a history of WPW [...] discussed and reviewed the records available in [facility]. He reviewed the treatment options available one option would be to increase the flecainide dosing. This would be a short-term strategy. A longer-term strategy would be to try to repeat catheter ablation. Patient prefers to undergo a catheter ablation procedure which is scheduled for March 28 at [facility]. Procedure will be under general anesthesia. 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; indication: symptomatic PSVT with WPW syndrome - Other anxiety states - Palpitations - Paroxysmal supraventricular tachycardia (HCC) - Stress incontinence, female - Unspecified asthma(493.90) - WPW (Zanhn-Yquzbgqng-Pmrvp syndrome) associated with symptomatic SVT; attempt at catheter ablation 11/2016 failed; she continues to experience intermittent palpitations and tachycardia despite treatment with flecainide PAST SURGICAL HISTORY Procedure Laterality Date - BLADDER SURGERY HX 11/2015 bladder sling - DELIVERY ONLY 85, 88,92 , low cervical X3 - ENLARGE BREAST WITH IMPLANT 11/2007 Breast augmentation - IUD INSERTION (HEALTH PHYSICS TECHNICIAN DEPT)_*FL 08/30/2007 Mirena - removed - OOPHORECTOMY, PART/TOTAL UNILAT/BILAT 2016 - REMOVE TONSILS/ADENOIDS,<12 Y/O 1968 - S PK LAVH [id number] 2013 lavh RICKY biltareal salpingectomy - SVT ABLATION W/ EP COMPLETE 11/24/2016 [facility], Dr. Mcknight; right midseptal AP unable to [...] with an ablation on March 28 at [facility]. She was instructed that she does need a cattle driver to and from the hospital. She'll receive a call the night before from the [facility] vascular [facility] instructing her on time of arrival. She will be NPO from midnight the day before. Follow-up appointment will be determined after the procedure and at the time of discharge. 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 Rapid palpitations [R00.2] INVALID FOR*03/23/2018 Ngmpq-Zmbqjxxcj-Wkhwl (WPW) syndrome [I45.6] INVALID FOR*03/23/2018 Chest discomfort [R07.89] INVALID FOR*11/13/2015 Abnormal uterine bleeding [N93.9] INVALID FOR*09/02/2014 Anxiety [F41.9] INVALID FOR* Primary insomnia [F51.01] INVALID FOR* Stress incontinence in female [N39.3] INVALID FOR* Encounter for screening colonoscopy [Z12.11] INVALID FOR* Complex cyst of right ovary [N83.291] INVALID FOR* Biliary dyskinesia [K82.8] INVALID FOR* More... WPW (Kvukg-Yecmatnjj-Cetdn syndrome) [I45.6] Gastro-esophageal reflux disease without esopha*INVALID FOR* Chronic sinusitis, unspecified [J32.9] INVALID FOR* 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] INVALID FOR* Asymptomatic menopausal state [Z78.0] INVALID FOR* Anxiety disorder, unspecified [F41.9] INVALID FOR* Acquired absence of both cervix and uterus [Z90*INVALID FOR* Paroxysmal supraventricular tachycardia (HCC) [* Palpitations [R00.2] intermediate current use of antiarrhythmic drug [Z* More... Visit Notes: >> Echo Baez [facility] Mar 23, 2018 3:49 PM Status: Signed Patient denies any cardiac complaints today. Echo Baez CMA Follow-up and Disposition History Recorded Letter Text [facility] [place] [address] [address] Dept: [phone] Dept Mathieu Key APRN.CNP March 23, 2018 Nicki Delacruz [address] [facility] [address] 1965 To Whom It May Concern: This [...] DOWNTIME REPORT Observed: 03/23/2018 Status: F Source: [place] 12:03 PM [facility] REPOSITORY [facility] Medical Records Department [address] [place] [address] Downtime Report MR#: [id number] Acct: [id number] Name: NICKI DELACRUZ Rep #: [id number] : 1965 52 From: Pk Wilcox PCP: RIK GONZALEZ Status: REG CLI This patient was seen during an EMR downtime March 06, 2018 - March 13, 2018. This patient may have a combination of paper and electronic documentation or all paper documentation. All documentation is viewable within the e-chart portion of [facility] for each patient visit. SCREENING MAMM (CAD), Observed: 03/10/2018 Status: F Source: [place] BILAT 9:47 AM [facility] REPOSITORY [facility] Imaging Services [address] [place] [address] SCREENING MAMM (CAD), BILAT MR#: [id number] Acct: [id number] Name: NICKI DELACRUZ Rep #: [id number] : 1965 F 52 From: Angel Ramirez MD PCP: RIK GONZALEZ Status: REG CLI Study: SCREENING MAMM (CAD), BILAT Date of Exam: 03/07/18 Exam# [id number] Ordering Dr: Tootie Figueroa MD MAMMOGRAPHY - [...] delay biopsy of a clinically suspicious abnormality. [id number] Electronically Signed: Angel Ramirez MD at 12:52 EDT Tel , Service support , CC: RIK GONZALEZ; Tootie Figueroa MD Radio Division Lieutenant: Signed CNPN Observed: 02/01/2018 Status: COMPLETED Source: [place] 12:00 AM CLINIC OTHER CAMPUS REPOSITORY Telephone (AGCARDPOB) NICKI DELACRUZ ([id number]) 1965 F NFR Date Time Provider Department 02/01/18 ALBINA LUONG AGCARDPOB During your visit today, we recorded the following information about you: Caren De León 02/01/2018 9:14 AM Signed Nicki [...] FOR* More... Rapid palpitations [R00.2] INVALID FOR* Rdxbh-Hjgxxidwq-Nwesz (WPW) syndrome [I45.6] INVALID FOR* Chest discomfort [R07.89] INVALID FOR*11/13/2015 Abnormal uterine bleeding [N93.9] INVALID FOR*09/02/2014 Anxiety [F41.9] INVALID FOR* Primary insomnia [F51.01] INVALID FOR* Stress incontinence in female [N39.3] INVALID FOR* Encounter for screening colonoscopy [Z12.11] INVALID FOR* Complex cyst of right ovary [N83.291] INVALID FOR* Biliary dyskinesia [K82.8] INVALID FOR* More... WPW (Dcczu-Xhcictsqp-Ybngf syndrome) [I45.6] Gastro-esophageal reflux disease without esopha*INVALID FOR* Chronic sinusitis, unspecified [J32.9] INVALID FOR* 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] INVALID FOR* Asymptomatic menopausal state [Z78.0] INVALID FOR* Anxiety disorder, unspecified [F41.9] INVALID FOR* Acquired absence of both cervix and uterus [Z90*INVALID FOR* Paroxysmal supraventricular tachycardia (HCC) [* Palpitations [R00.2] intermediate current use of antiarrhythmic drug [Z* More... Encounter Status:Closed by CAREN DE LEÓN on 02/01/18 CNPN Observed: 12/28/2017 Status: COMPLETED Source: [place] 12:00 AM CLINIC OTHER CAMPUS REPOSITORY Telephone (AGCARDPOB) NICKI DELACRUZ ([id number]) 1965 F NFR Date Time Provider Department [...] FOR* More... Rapid palpitations [R00.2] INVALID FOR* Ljpwc-Hizfpanoz-Awqet (WPW) syndrome [I45.6] INVALID FOR* Chest discomfort [R07.89] INVALID FOR*11/13/2015 Abnormal uterine bleeding [N93.9] INVALID FOR*09/02/2014 Anxiety [F41.9] INVALID FOR* Primary insomnia [F51.01] INVALID FOR* Stress incontinence in female [N39.3] INVALID FOR* Encounter for screening colonoscopy [Z12.11] INVALID FOR* Complex cyst of right ovary [N83.291] INVALID FOR* Biliary dyskinesia [K82.8] INVALID FOR* More... WPW (Fnciw-Wecnjpvku-Bnhpz syndrome) [I45.6] Gastro-esophageal reflux disease without esopha*INVALID FOR* Chronic sinusitis, unspecified [J32.9] INVALID FOR* 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] INVALID FOR* Asymptomatic menopausal state [Z78.0] INVALID FOR* Anxiety disorder, unspecified [F41.9] INVALID FOR* Acquired absence of both cervix and uterus [Z90*INVALID FOR* Paroxysmal supraventricular tachycardia (HCC) [* Palpitations [R00.2] intermediate current use of antiarrhythmic drug [Z* More... Encounter Status:Closed by VENECIA RIVAS RN on 12/28/17 PROGRESS Observed: 12/27/2017 Status: COMPLETED Source: [place] 2:46 PM [facility] REPOSITORY O ID: [id number] Author: Yamilet (Plasma Processing Centrifuge Operator) NEVIN Foley.BRIM BLOCKER Service: (none) Author Type: Nurse Practitioner Type: Progress Notes Filed: 12/27/2017 5:01 PM Note Text: Subjective The history is provided by the patient. No deaf interpreter was used. HPI Nicki Delacruz is a [...] (Attention Deficit Disorder) Insomnia, Unspecified Rapid Palpitations Xqgfe-Gkdpqbunr-Ygkkl (Wpw) Syndrome Anxiety Primary Insomnia Stress Incontinence in Female Encounter for Screening Colonoscopy 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 Wpw (Hzddd-Kuwkyqqwx-Iudbz Syndrome) Gastro-Esophageal Reflux Disease Without Esophagitis Chronic Sinusitis, Unspecified Benign Neoplasm of Unspecified Ovary Asymptomatic Menopausal State Anxiety Disorder, Unspecified Acquired Absence of Both Cervix and Uterus Paroxysmal Supraventricular Tachycardia (Hcc) Palpitations Snf Current Use of Antiarrhythmic Drug Family History [...] children: 3 Occupational History Occupation Employer Comment [employer] Social History Main Topics Smoking status: Never [...] Neg neg Ketones, Urine Neg small Specific [place], Ur 1.005 - 1.030 1.025 Hemoglobin/Blood,Ur Neg [...] Foley APRN.CNP Observed: 12/27/2017 Status: F Source: [place] URINE CULTURE 2:44 PM [facility] REPOSITORY Sp. Request/Comment: - Specimen received in [...] <=0.5 F Performed By: #### URCUL #### [facility] [address] [place], [place] [address] CNOV Observed: 12/27/2017 Status: COMPLETED Source: [place] 2:00 PM [facility] REPOSITORY Office Visit (UCWSTR) NICKI DELACRUZ ([id number]) 1965 F NFR Date Time Provider Department 12/27/17 2:00 PM YAMILET FOLEY (BRIM BLOCKER) UCWSTR During your visit today, we recorded the following information about you: Temperature Pulse Respiration Blood pressure 98.4 degrees 78/minute 16/minute 110/72 Weight 64.4 kg Yamilet Foley APRN.JESSICA, SHANI 12/27/2017 5:01 PM Signed Subjective The history is provided by the patient. No deaf interpreter was used. 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 Rapid palpitations [R00.2] INVALID FOR* Jmbrd-Jsrhfbkjm-Blkmx (WPW) syndrome [I45.6] INVALID FOR* Chest discomfort [R07.89] INVALID FOR*11/13/2015 Abnormal uterine bleeding [N93.9] INVALID FOR*09/02/2014 Anxiety [F41.9] INVALID FOR* Primary insomnia [F51.01] INVALID FOR* Stress incontinence in female [N39.3] INVALID FOR* Encounter for screening colonoscopy [Z12.11] INVALID FOR* Complex cyst of right ovary [N83.291] INVALID FOR* Biliary dyskinesia [K82.8] INVALID FOR* More... WPW (Rusjy-Comygzgux-Cnsrb syndrome) [I45.6] Gastro-esophageal reflux disease without esopha*INVALID FOR* Chronic sinusitis, unspecified [J32.9] INVALID FOR* 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] INVALID FOR* Asymptomatic menopausal state [Z78.0] INVALID FOR* Anxiety disorder, unspecified [F41.9] INVALID FOR* Acquired absence of both cervix and uterus [Z90*INVALID FOR* Paroxysmal supraventricular tachycardia (HCC) [* Palpitations [R00.2] intermediate current use of antiarrhythmic drug [Z* More... [...] HISTORY PHYSICAL Observed: 12/21/2017 Status: COMPLETED Source: [place] 7:31 PM CLINIC OTHER CAMPUS REPOSITORY [facility] ID: [id number] Author: Albina Luong Service: (none) Author Type: Physician Type: HANDP Filed: 12/21/2017 7:31 PM Note Text: PRIMARY CARE PHYSICIAN: Andrew Gonzalez MD [address] [address] REFERRING PHYSICIAN: Andrew Gonzalez MD [place] [phone] [address] Patient Care Team: Andrew Gonzalez as PCP - General (Family Practice) Albina Luong as Specialty Athletic Equipment Manager (Cardiology) CHIEF COMPLAINT: Evaluation for arrhythmia HISTORY [...] was referred to Dr. Mcknight at the [facility]. Her brother has WPW syndrome and was [...] device 08/30/2007 Mirena, removed March 10 - intermediate current use of antiarrhythmic drug flecainide; indication: symptomatic PSVT with WPW syndrome - Other anxiety states - Palpitations - Paroxysmal supraventricular tachycardia (HCC) - Stress incontinence, female - Unspecified asthma(493.90) - WPW (Qxxgg-Plsqkluvn-Drtjd syndrome) associated with symptomatic SVT; attempt at catheter ablation 11/2016 failed; she continues to experience intermittent palpitations and tachycardia despite treatment with flecainide PAST SURGICAL HISTORY Procedure Laterality Date - BLADDER SURGERY HX 11/2015 bladder sling - DELIVERY ONLY 85, 88,92 , low cervical X3 - ENLARGE BREAST WITH IMPLANT 11/2007 Breast augmentation - IUD INSERTION (HEALTH PHYSICS TECHNICIAN DEPT)_*FL 08/30/2007 Mirena - removed - OOPHORECTOMY, PART/TOTAL UNILAT/BILAT 2017 - REMOVE TONSILS/ADENOIDS,<12 Y/O 1968 - S PK LAVH [id number] 2013 lavh RICKY biltareal salpingectomy - SVT ABLATION W/ EP COMPLETE 11/24/2016 [facility], Dr. Mcknight; anteroseptal AP unable to be [...] personally reviewed the Electrocardiogram. ASSESSMENT/PLAN: 1. 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 I had a detailed discussion with Ms. Delacruz regarding her arrhythmia condition and WPW syndrome. I reviewed the EP study and catheter ablation attempt procedure report from [facility] dated November 24, 2016. It appears that [...] abandoned due to the proximity to the shoalwater conduction system. She was then treated with [...] is risk of irreversible damage to the shoalwater AV conduction system with additional attempts at catheter ablation, but that this risk could be kept to a minimum and still considered reasonably low overall. The procedure would require the use of computerized mapping and also potentially robotic catheter navigation. Cryoablation is an attractive type of catheter ablation in the region of the shoalwater AV conduction system, however this has already [...] keeping her comfortable during the procedure in [place]. I had a detailed discussion with Ms. [...] 12/21/2017 PROGRESS Observed: 12/21/2017 Status: COMPLETED Source: [place] 6:43 PM CLINIC OTHER CAMPUS REPOSITORY O ID: [id number] Author: Albina Luong Service: (none) Author Type: Physician Type: Progress Notes Filed: 12/21/2017 7:31 PM Note Text: PRIMARY CARE PHYSICIAN: Andrew Gonzalez MD [place] [id number] [address] REFERRING PHYSICIAN: Andrew Gonzalez MD [place] [phone] [address] Patient Care Team: Andrew Gonzalez as PCP - General (Family Practice) Albina Luong as Specialty Athletic Equipment Manager (Cardiology) CHIEF COMPLAINT: Evaluation for arrhythmia HISTORY [...] was referred to Dr. Mcknight at the [facility]. 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 flecainide; indication: symptomatic PSVT with WPW syndrome - Other anxiety states - Palpitations - Paroxysmal supraventricular tachycardia (HCC) - Stress incontinence, female - Unspecified asthma(493.90) - WPW (Rckts-Nqqqdwhxk-Evqrw syndrome) associated with symptomatic SVT; attempt at catheter ablation 11/2016 failed; she continues to experience intermittent palpitations and tachycardia despite treatment with flecainide PAST SURGICAL HISTORY Procedure Laterality Date - BLADDER SURGERY HX 11/2015 bladder sling - DELIVERY ONLY 85, 88,92 , low cervical X3 - ENLARGE BREAST WITH IMPLANT 11/2007 Breast augmentation - IUD INSERTION (HEALTH PHYSICS TECHNICIAN DEPT)_*FL 08/30/2007 Mirena - removed - OOPHORECTOMY, PART/TOTAL UNILAT/BILAT 2016 - REMOVE TONSILS/ADENOIDS,<12 Y/O 1968 - S PK LAVH [id number] 2013 lavh RICKY biltareal salpingectomy - SVT ABLATION W/ EP COMPLETE 11/24/2016 [facility], Dr. Mcknight; anteroseptal AP unable to be [...] personally reviewed the Electrocardiogram. ASSESSMENT/PLAN: 1. WPW (Hshuf-Oqaodbqkt-Nsmto syndrome) - ICD9: 426.7, ICD10: I45.6 Symptomatic; [...] helpful to correlate arrhythmia with symptoms 4. intermediate current use of antiarrhythmic drug - ICD9: [...] the brief episodes of palpitation are likely tax representative of ectopic beats, but the longer episodes of palpitation with tachycardia are potentially recurrence of SVT. I had a detailed discussion with Ms. Delacruz regarding her arrhythmia condition and WPW syndrome. I reviewed the EP study and catheter ablation attempt procedure report from [facility] dated November 24, 2016. It appears that [...] abandoned due to the proximity to the shoalwater conduction system. She was then treated with [...] is risk of irreversible damage to the shoalwater AV conduction system with additional attempts at catheter ablation, but that this risk could be kept to a minimum and still considered reasonably low overall. The procedure would require the use of computerized mapping and also potentially robotic catheter navigation. Cryoablation is an attractive type of catheter ablation in the region of the shoalwater AV conduction system, however this has already [...] keeping her comfortable during the procedure in [place]. I had a detailed discussion with Ms. [...] 12/21/2017 CNOV Observed: 12/21/2017 Status: COMPLETED Source: [place] 1:30 PM CLINIC OTHER CAMPUS REPOSITORY Office Visit (AGCARDPHRA) NICKI DELACRUZ ([id number]) 1965 F NFR Date Time Provider Department [...] healthcare provider's instructions for treatment. Developed by [employer]. Published by [employer]. Copyright ?2014 [employer] and/or one of its subsidiaries. All rights reserved. Albina Luong MD 12/21/2017 7:31 PM Addendum PRIMARY CARE PHYSICIAN: Andrew Gonzalez MD [place] [id number] [place] [address] REFERRING PHYSICIAN: Andrew Gonzalez MD [place] [phone] [address] [address] Patient Care Team: Andrew Gonzalez as PCP - General (Family Practice) Albina Luong as Specialty Athletic Equipment Manager (Cardiology) CHIEF COMPLAINT: Evaluation for arrhythmia HISTORY [...] was referred to Dr. Mcknight at the [facility]. Her brother has WPW syndrome and was [...] device 08/30/2007 Mirena, removed March 10 - intermediate current use of antiarrhythmic drug flecainide; indication: symptomatic PSVT with WPW syndrome - Other anxiety states - Palpitations - Paroxysmal supraventricular tachycardia (HCC) - Stress incontinence, female - Unspecified asthma(493.90) - WPW (Svrcn-Anihoabge-Zepex syndrome) associated with symptomatic SVT; attempt at catheter ablation 11/2016 failed; she continues to experience intermittent palpitations and tachycardia despite treatment with flecainide PAST SURGICAL HISTORY Procedure Laterality Date - BLADDER SURGERY HX 11/2015 bladder sling - DELIVERY ONLY 85, 88,92 , low cervical X3 - ENLARGE BREAST WITH IMPLANT 11/2007 Breast augmentation - IUD INSERTION (HEALTH PHYSICS TECHNICIAN DEPT)_*FL 08/30/2007 Mirena - removed - OOPHORECTOMY, PART/TOTAL UNILAT/BILAT 2016 - REMOVE TONSILS/ADENOIDS,ANDlt;13 Y/O 1967 - S PK LAVH [id number] 2013 lavh RICKY biltareal salpingectomy - SVT ABLATION W/ EP COMPLETE 11/24/2016 [facility], Dr. Mcknight; anteroseptal AP unable to be [...] personally reviewed the Electrocardiogram. ASSESSMENT/PLAN: 1. 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 I had a detailed discussion with Ms. Delacruz regarding her arrhythmia condition and WPW syndrome. I reviewed the EP study and catheter ablation attempt procedure report from [facility] dated November 24, 2016. It appears that [...] abandoned due to the proximity to the shoalwater conduction system. She was then treated with [...] is risk of irreversible damage to the shoalwater AV conduction system with additional attempts at catheter ablation, but that this risk could be kept to a minimum and still considered reasonably low overall. The procedure would require the use of computerized mapping and also potentially robotic catheter navigation. Cryoablation is an attractive type of catheter ablation in the region of the shoalwater AV conduction system, however this has already [...] keeping her comfortable during the procedure in [place]. I had a detailed discussion with Ms. [...] Signed PRIMARY CARE PHYSICIAN: [place] [address] REFERRING PHYSICIAN: Andrew Gonzalez MD [place] [address] Patient Care Team: Andrew Gonzalez as PCP - General (Family Practice) Albina Luong as Specialty Athletic Equipment Manager (Cardiology) CHIEF COMPLAINT: Evaluation for arrhythmia HISTORY [...] was referred to Dr. Mcknight at the [facility]. Her brother has WPW syndrome and was [...] device 08/30/2007 Mirena, removed March 10 - intermediate current use of antiarrhythmic drug flecainide; indication: symptomatic PSVT with WPW syndrome - Other anxiety states - Palpitations - Paroxysmal supraventricular tachycardia (HCC) - Stress incontinence, female - Unspecified asthma(493.90) - WPW (Medkf-Ioswwupsl-Oaqin syndrome) associated with symptomatic SVT; attempt at catheter ablation 11/2016 failed; she continues to experience intermittent palpitations and tachycardia despite treatment with flecainide PAST SURGICAL HISTORY Procedure Laterality Date - BLADDER SURGERY HX 11/2015 bladder sling - DELIVERY ONLY 85, 88,92 , low cervical X3 - ENLARGE BREAST WITH IMPLANT 11/2007 Breast augmentation - IUD INSERTION (HEALTH PHYSICS TECHNICIAN DEPT)_*FL 08/30/2007 Mirena - removed - OOPHORECTOMY, PART/TOTAL UNILAT/BILAT 2016 - REMOVE TONSILS/ADENOIDS,ANDlt;13 Y/O 1968 - S PK LAVH [id number] 2013 lavh RICKY biltareal salpingectomy - SVT ABLATION W/ EP COMPLETE 11/24/2016 [facility], Dr. Mcknight; anteroseptal AP unable to be [...] personally reviewed the Electrocardiogram. ASSESSMENT/PLAN: 1. WPW (Pjnlj-Kytqewlmf-Vfbaf syndrome) - ICD9: 426.7, ICD10: I45.6 Symptomatic; [...] helpful to correlate arrhythmia with symptoms 4. intermediate current use of antiarrhythmic drug - ICD9: [...] the brief episodes of palpitation are likely tax representative of ectopic beats, but the longer episodes of palpitation with tachycardia are potentially recurrence of SVT. I had a detailed discussion with Ms. Delacruz regarding her arrhythmia condition and WPW syndrome. I reviewed the EP study and catheter ablation attempt procedure report from [facility] dated November 24, 2016. It appears that [...] abandoned due to the proximity to the shoalwater conduction system. She was then treated with [...] is risk of irreversible damage to the shoalwater AV conduction system with additional attempts at catheter ablation, but that this risk could be kept to a minimum and still considered reasonably low overall. The procedure would require the use of computerized mapping and also potentially robotic catheter navigation. Cryoablation is an attractive type of catheter ablation in the region of the shoalwater AV conduction system, however this has already [...] keeping her comfortable during the procedure in [place]. I had a detailed discussion with Ms. 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 Rapid palpitations [R00.2] INVALID FOR* Dnofi-Xhigvvukb-Aeqqa (WPW) syndrome [I45.6] INVALID FOR* Chest discomfort [R07.89] INVALID FOR*11/13/2015 Abnormal uterine bleeding [N93.9] INVALID FOR*09/02/2014 Anxiety [F41.9] INVALID FOR* Primary insomnia [F51.01] INVALID FOR* Stress incontinence in female [N39.3] INVALID FOR* Encounter for screening colonoscopy [Z12.11] INVALID FOR* Complex cyst of right ovary [N83.291] INVALID FOR* Biliary dyskinesia [K82.8] INVALID FOR* More... 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 [...] healthcare provider's instructions for treatment. Developed by [employer]. Published by [employer]. Copyright ?2014 [employer] and/or one of its subsidiaries. 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 KANDI Marmolejo APRN.BRIM BLOCKER 03/23/2018 5:29 PM Signed Subjective HPI Mrs. [...] was referred to Dr. Mcknight at the [facility]. Her brother has a history of WPW [...] discussed and reviewed the records available in [facility]. He reviewed the treatment options available one option would be to increase the flecainide dosing. This would be a short-term strategy. A longer-term strategy would be to try to repeat catheter ablation. Patient prefers to undergo a catheter ablation procedure which is scheduled for March 28 at [facility]. Procedure will be under general anesthesia. 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; attempt at catheter ablation 11/2016 failed; she continues to experience intermittent palpitations and tachycardia despite treatment with flecainide PAST SURGICAL HISTORY Procedure Laterality Date - BLADDER SURGERY HX 11/2015 bladder sling - DELIVERY ONLY 85, 88,92 , low cervical X3 - ENLARGE BREAST WITH IMPLANT 11/2007 Breast augmentation - IUD INSERTION (HEALTH PHYSICS TECHNICIAN DEPT)_*FL 08/30/2007 Mirena - removed - OOPHORECTOMY, PART/TOTAL UNILAT/BILAT 2016 - REMOVE TONSILS/ADENOIDS,<12 Y/O 1968 - S PK LAVH [id number] 2013 lavh RICKY biltareal salpingectomy - SVT ABLATION W/ EP COMPLETE 11/24/2016 [facility], Dr. Mcknight; right midseptal AP unable to [...] with an ablation on March 28 at [facility]. She was instructed that she does need a cattle driver to and from the hospital. She'll receive a call the night before from the heart and vascular Center instructing her on time of arrival. She will be NPO from midnight the day before. Follow-up appointment will be determined after the procedure and at the time of discharge. Progress Notes ([facility]): Kassie Muñoz RN 03/14/2018 8:33 PM Signed Message from [employer]: Nicki Delacruz would like a refill of the following medications: traZODone (DESYREL) 50 mg tablet [Andrew Gonzalez MD] Preferred pharmacy: [address] [address] - [facility] [phone] Comment: Kassie Muñoz RN 03/14/2018 8:34 PM [...] RN PROGRESS Observed: 12/01/2017 Status: COMPLETED Source: [place] 6:01 PM [facility] REPOSITORY HNO ID: [id number] Author: Dulce Hoover Service: (none) Author Type: [...] MD CNOV Observed: 12/01/2017 Status: COMPLETED Source: [place] 11:15 AM [facility] REPOSITORY Office Visit (GENBIANCA) NICKI DELACRUZ ([id number]) 1965 F NFR Date Time Provider Department [...] Dulce Hoover MD Referring Provider: DULCE HOOVER [[id number]] Allergies As of Date: 12/01/2017 Noted Allergy [...] FOR* More... Rapid palpitations [R00.2] INVALID FOR* Jeidp-Ooourychg-Jwjcg (WPW) syndrome [I45.6] INVALID FOR* Chest discomfort [...] 12/01/17 PROGRESS Observed: 11/28/2017 Status: COMPLETED Source: [place] 3:03 PM [facility] CAMP[facility] REPOSITORY O ID: [id number] Author: Сергей Ayoub Service: (none) Author Type: [...] in palpitations. Advised to discuss with her brass instrument repair technician. Сергей Ayoub MD PROGRESS Observed: 11/22/2017 Status: COMPLETED Source: [place] 2:56 PM [facility] [place] REPOSITORY HNO ID: [id number] Author: Radha Acevedo Service: (none) Author Type: [...] Grandmother - Cancer Paternal Grandfather PROSTATE CANCER, [place] - Asthma Son - Asthma Daughter - Seizures Brother wpw PAST MEDICAL HISTORY Diagnosis Date - Allergic rhinitis due to other allergen - Encounter for insertion or removal of intrauterine contraceptive device 08/30/2007 Mirena, removed March 10 - Other anxiety states - Stress incontinence, female - Unspecified asthma(493.90) - WPW (Xrndq-Bpvyblbuz-Dhkbb syndrome) PAST SURGICAL HISTORY Procedure Laterality Date - DELIVERY ONLY 85, 88,92 , low cervical X3 - ENLARGE BREAST WITH IMPLANT 11/2007 Breast augmentation - IUD INSERTION (HEALTH PHYSICS TECHNICIAN DEPT)_*FL 08/30/2007 Mirena - removed - OOPHORECTOMY, PART/TOTAL UNILAT/BILAT 2016 - PAST SURGICAL HISTORY OF 11/2015 bladder sling - REMOVE TONSILS/ADENOIDS,<12 Y/O 1968 - S PK LAVH [id number] 2013 lavh RICKY biltareal salpingectomy - SVT ABLATION W/ EP COMPLETE 11/24/2016 Social History Marital status: Spouse name: Years of education: 15 Number of children: 3 Occupational History Occupation Employer Comment [employer] Social History Main Topics Smoking status: Never [...] No history of dysuria, frequency or incontinence HEALTH PHYSICS TECHNICIAN: Negative for abnormal vaginal bleeding, abnormal vaginal [...] DISCHARGE INSTRUCTION Observed: 11/20/2017 Status: F Source: [place] 4:46 PM [facility] REPOSITORY [facility] Medical Records Department [address] [place] [address] Discharge Instruction 11/20/171644 MR#: [id number] Acct: [id number] Name: NICKI DELACRUZ Rep #: [id number] : 1965 52 From: Jaida Siu PCP: [...] your Primary Care Provider. Call [facility] ([phone]) or report to the closest Emergency Room. Call 911 if necessary. 11/20/17 1636 <Electronically signed by Jaida Siu > Date Jaida Siu Cosigner Signature (If Indicated): Date CC: RIK GONZALEZ DISCHARGE INSTRUCTION Observed: 11/20/2017 Status: F Source: [place] 4:33 PM [facility] Medical Records Department [address] [place] [address] Discharge Instruction 11/20/17 1631 MR#: [id number] Acct: [id number] Name: NICKI DELACRUZ Rep #: [id number] : 1965 52 From: Jaida Siu PCP: [...] your Primary Care Provider. Call [facility] ([phone]) or report to the closest Emergency Room. Call 911 if necessary. 11/20/17 1633 <Electronically signed by Jaida Siu > Date Jaida Siu Cosigner Signature (If Indicated): Date CC: RIK GONZALEZ EMERGENCY DEPARTMENT Observed: 11/20/2017 Status: F Source: [place] SUMMARY 4:31 PM [facility] REPOSITORY [facility] Medical Records Department [address] [place] [address] Emergency Department Summary 11/20/17 1320 MR#: [id number] Acct: [id number] Name: NICKI DELACRUZ Rep #: [id number] : 1965 52 From: Jaida Siu PCP: RIK GONZALEZ Status: REG ER - ER Visit Summary Date of Service: 11/20/17 Chief Complaint: [Right flank pain] History of Present Illness: The patient is a 52 F [presents to the emergency department with flank pain she had a cholecystectomy on Tuesday at [facility]. She was doing well but since [...] Skin reaction] This note was generated with [employer] dictation software. It may contain incorrect words, [...] your Primary Care Provider. Call [facility] ([phone]) or report to the closest Emergency Room. Call 911 if necessary. 11/20/17 1631 <Electronically signed by Jaida Siu > Date Jaida Siu Cosigner Signature (If Indicated): Date CC: RIK GONZALEZ CBC W/DIFF, AUTOMATED Collected: 11/20/2017 Status: F Source: [place] 1:35 PM [facility] REPOSITORY TYPE CODE TESTS RESULT OUT OF [...] Lymph 1.83 Performed By: #### L100.0100 #### [facility] [address] [place], [place], [address] COMPREHENSIVE METABOLIC Collected: 11/20/2017 Status: F Source: [facility] 1:35 PM [facility] REPOSITORY TYPE CODE TESTS RESULT OUT OF [...] 4 Performed By: #### L500.4050, L501.2450 #### [facility] [address] [place], [address] LIPASE Collected: 11/20/2017 Status: F Source: [place] 1:35 PM [facility] REPOSITORY TYPE CODE TESTS RESULT OUT OF RANGE REFERENCE UNITS LAB L501.2450 73-393 U/L Normal LIPASE 79 Performed By: #### L500.4050, L501.2450 #### [facility] [address] [place], [address] URINALYSIS, COMPLETE Collected: 11/20/2017 Status: F Source: [place] 1:30 PM [facility] REPOSITORY Order Comment: Order Date: 11/20/17 How [...] URINE SEEN Performed By: #### L400.0001 #### [facility] [address] [facility] [address] [place], [address] ABDOMEN/PELVIS W IV CONT Observed: 11/20/2017 Status: F Source: [facility] 1:16 PM [facility] REPOSITORY [facility] Imaging Services [address] [facility] [address] Abdomen/Pelvis W IV Cont ONLY MR#: [id number] Acct: [id number] Name: NICKI DELACRUZ Rep #: [id number] : 1965 F 52 From: Georgina Edward MD PCP: RIK GONZALEZ Status: REG ER Study: Abdomen/Pelvis W IV Cont ONLY Date of Exam: 11/20/17 Exam# [id number] Ordering Dr: Jaida Siu CT Abdomen And [...] support , CC: Jaida Siu; RIK GONZALEZ Radio Division Lieutenant: Signed CTA CHEST W/WO Observed: 11/20/2017 Status: F Source: [place] CONTRAST 1:16 PM [facility] REPOSITORY [facility] Imaging Services [address] [place] [address] CTA Chest W/WO Contrast MR#: [id number] Acct: [id number] Name: NICKI DELACRUZ Rep #: [id number] : 1965 F 52 From: Georgina Edward MD PCP: RIK GONZALEZ Status: REG ER Study: CTA Chest W/WO Contrast Date of Exam: 11/20/17 Exam# [id number] Ordering Dr: Jaida Siu CTA Chest WO/W [...] support , CC: Jaida Siu; RIK GONZALEZ Radio Division Lieutenant: Signed PROGRESS Observed: 11/20/2017 Status: COMPLETED Source: [place] 11:44 AM [facility] REPOSITORY HNO ID: [id number] Author: Amira Fairbanks Service: (none) Author Type: Nurse Practitioner Type: Progress Notes Filed: 11/20/2017 11:47 AM Note Text: Patient had lap aretha on 11/16, reports RUQ abdominal pain and possible infected lap sites. She had called in to surgeon's office on 11/18 with these complaints, see phone encounter in [facility]. Patient was advised by surgeon to be [...] JESSICA Park Observed: 11/18/2017 Status: COMPLETED Source: [place] 12:00 AM [facility] REPOSITORY Telephone (GENUnisense FertiliTechJose J) NICKI DELACRUZ ([id number]) 1965 F NFR Date Time Provider Department [...] requesting a return call from our office. [phone] (home) [phone] (work) [phone] (cell) Grecia Boykin RN 11/18/2017 1:27 PM Signed Spoke with DR Landaverde and patient is advised to go to ER for evaluation and to rule out bile leak. Patient plans to go to [facility] when her ride is avialable in next [...] Patient telephone call. She had gone to [place] and they ruled out bile leak. C/O redness around incision like a rash. She went to [place] ER and doctor prescribed an antibiotic and [...] FOR* More... Rapid palpitations [R00.2] INVALID FOR* Djzux-Slcvizbfr-Ugcdr (WPW) syndrome [I45.6] INVALID FOR* Chest discomfort [...] PT ED Observed: 11/16/2017 Status: COMPLETED Source: [place] 3:48 PM CLINIC OTHER CAMPUS REPOSITORY HNO ID: [id number] Author: Dasia (Rn) VINCENT Perry Service: Nursing [...] Signed By: Dasia Perry RN In Department: [place] SURGERYPATIENT EDUCATION TOPIC: PROCEDURE / SURGERY: Post-op Teaching: Med Administration PATIENT NAME: Nicki Delacruz PATIENT LOCATION: [place] [facility] [facility] READINESS TO LEARN COGNITIVE ABILITY: Alert [...] [place] POST Observed: 11/16/2017 Status: COMPLETED Source: [place] 3:48 PM [facility] [place] REPOSITORY HNO ID: [id number] Author: Jerson Wing Service: Anesthesiology Author Type: [...] 16, 2017 TIME: 5:03 PM PAGER/CONTACT #: [phone] PLAN OF CARE Observed: 11/16/2017 Status: COMPLETED Source: [place] 1:38 PM [facility] REPOSITORY HNO ID: [id number] Author: Ana Maria Chinchilla (Lithographic Plate Maker Apprentice) Service: (none) Author Type: (none) Type: Plan of Care Filed: 11/16/2017 1:39 PM Note Text: PROCUREMENT ACCOUNTANT BEDSIDE DELIVERY SURVEY 1. Patient to use [facility] Bedside Delivery - YES 2. If fax, patient would like us to fax prescriptions to Pharmacy of choice a. Pharmacy: b. Location: c. Phone: 3. Insurance card on file - YES 4. Credit card for payment - YES No prescriptions yet. Please page [phone] upon discharge. PHARMACY BEDSIDE DELIVERY SERVICE Patient Name: Nicki Delacruz The marked outpatient medications were Filled at: [facility] and delivered to the patient's bedside to PHARMACY LIGHT RAIL VEHICLE OPERATOR Medication List START taking these medications X [...] by mouth once daily. Ana Maria Chinchilla (Lithographic Plate Maker Apprentice) PAGER: [phone] November 16, 2017 1:38 PM SURGICAL PATHOLOGY Observed: 11/16/2017 Status: F Source: [place] 1:15 PM [facility] OTHER CAMPUS REPOSITORY Specimen originated from [facility] Specimen #: [id number] Submitting Physician: Dulce Hoover M.D. FINAL DIAGNOSIS [...] of the mucosa. No calculi are present. Superintendent [employer]ing [employer] sections are submitted in formalin in cassette A1. LAMONT/glw 11/16/2017 Gross examination performed at [facility], [address] [place] [address] Date of Report: 11/18/2017 Date of Procedure: 11/16/2017 Date of Receipt: 11/16/2017 Submitted by: Dulce Hoover M.D. Location: [place] Diagnostic interpretation performed at [facility], [address] [place] [address]. Performed By: #### PATHS #### [employer] [address] [place] [address] [phone] BRIEF OP NOT Observed: 11/16/2017 Status: COMPLETED Source: [place] 1:00 PM CLINIC OTHER CAMPUS REPOSITORY HNO ID: [id number] Author: Dulce Hoover Service: General Surgery Author Type: Physician Type: Brief Op Note Filed: 11/16/2017 1:11 PM Note Text: BRIEF OPERATIVE / PROCEDURE NOTE LOG ID: [id number] Surgery/Procedure Date: 11/16/2017 Incision/Procedure Start Time: 12:29 PM Incision Close/Procedure End Time: 1:04 PM Surgeon(s)/Proceduralist(s) and Environmental Sustainability Manager(s): Surgeon(s) and Role: * Dulce Hoover - Primary Physician Environmental Sustainability Manager: Judy Ross Procedure(s): lap aretha w/ ioc Anesthesia: General Findings: see report Estimated Blood Loss: min Specimens: 1 Complications: None Pre-Op/Pre-Procedure Diagnosis: biliary dyskinesia Post-Op/Post-Procedure Diagnosis: same # [id number] SIGNATURE: Dulce Hoover MD PATIENT NAME: Nicki Delacruz DATE: November 16, 2017 TIME: 1:00 PM PAGER/CONTACT #: [phone] CHOLANGIOGRAM INTRAOP Observed: 11/16/2017 Status: F Source: [place] 12:41 PM [facility] REPOSITORY * * *Final Report* * * [...] drains freely into the duodenum. IMPRESSION: Negative Radio Division Lieutenant: KLARISSA Transcribe Date/Time: Nov 16 2017 1:51P Dictated by : NAYE WEISS MD This examination was interpreted and the report reviewed and electronically signed by: NAYE WEISS MD on Nov 16 2017 1:58PM EST [id number] [id number] PREOP Observed: 11/16/2017 Status: COMPLETED Source: [place] 11:16 AM [facility] REPOSITORY HNO ID: [id number] Author: Jerson Wing Service: Anesthesiology Author Type: [...] (Attention Deficit Disorder) Insomnia, Unspecified Rapid Palpitations Casgf-Iwtcpdgfs-Pttoh (Wpw) Syndrome Anxiety Primary Insomnia Stress Incontinence in Female Encounter for Screening Colonoscopy 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 PAST MEDICAL HISTORY Diagnosis Date - Allergic rhinitis due to other allergen - Encounter for insertion or removal of intrauterine contraceptive device 08/30/2007 Mirena, removed March 10 - Other anxiety states - Stress incontinence, female - Unspecified asthma(493.90) - WPW (Yfroe-Jlxhrmyrf-Iqnrq syndrome) PAST SURGICAL HISTORY Procedure Laterality Date - DELIVERY ONLY 85, 88,92 , low cervical X3 - ENLARGE BREAST WITH IMPLANT 11/2007 Breast augmentation - IUD INSERTION (HEALTH PHYSICS TECHNICIAN DEPT)_*FL 08/30/2007 Mirena - removed - OOPHORECTOMY, PART/TOTAL UNILAT/BILAT 2016 - PAST SURGICAL HISTORY OF 11/2015 bladder sling - REMOVE TONSILS/ADENOIDS,<12 Y/O 1968 - S PK LAVH [id number] 2014 lavh RICKY biltareal salpingectomy - SVT ABLATION W/ EP COMPLETE 11/24/2016 FAMILY HISTORY Problem Relation Age of Onset - Asthma Father - Emphysema Paternal Grandmother - Seizures Paternal Grandmother - Cancer Paternal Grandfather PROSTATE CANCER, [place] - Asthma Son - Asthma Daughter - [...] ringers infusion 5-30 mL/hr INTRAVENOUS CONTINUOUS Radha (Plasma Processing Centrifuge Operator) Kristina Last Rate: 30 mL/hr at 11/16/17 1106 30 mL/hr at 11/16/17 1106 promethazine 12.5 mg tab(s) (PHENERGAN) 12.5 mg ORAL NOW Jerson Wing scopolamine 1 mg over 3 days 1 Patch (TRANSDERM-SCOP) 1 Patch TRANSDERMAL q 72 HR Jerson Wing And [START ON 11/19/2017] scopolamine - REMOVE PATCH OTHER q 72 HR Jerson Wing And scopolamine - VERIFY patch OTHER q [...] November 16, 2017 TIME: 11:16 AM CSN: [id number] OPERATIVE NO Observed: 11/16/2017 Status: COMPLETED Source: [place] 12:00 AM CLINIC OTHER CAMPUS REPOSITORY O ID: [id number] Author: Dulce Hoover Service: General Surgery Author Type: Physician Type: Operative Report Filed: 11/19/2017 11:13 AM Note Text: [place]- Operative Report NICKI DELACRUZ : 1965 AGE: 52 SEX: F ACCTNUM: [id number] [facility]: [facility] LOCATION: [facility] ATTENDING PHYSICIAN: Dulce Hoover M.D. DATE OF PROCEDURE: 11/16/2017 SURGEON: Dulce Hoover M.D. LOCK UP WORKER: Judy Ross (robert). ANESTHESIA: General. PREOPERATIVE DIAGNOSIS(ES): [...] good condition. Dulce Hoover M.D. General Surgery KED:[id number] /[id number] NURSING PROG Observed: 11/10/2017 Status: COMPLETED Source: [place] 12:06 PM CLINIC OTHER CAMPUS REPOSITORY HNO ID: [id number] Author: Paul (Rn) VINCENT Erazo Service: (none) [...] AND DIFFERENTIAL Collected: 11/09/2017 Status: F Source: [place] 2:25 PM [facility] [place] REPOSITORY TYPE CODE TESTS RESULT OUT OF [...] k/uL Abs Lymph 3.02 LAB AMONO % [place]% 8.0 LAB AAMONO <0.87 k/uL Abs [place] 0.64 LAB AEOS % Eosin% 0.9 LAB AAEOS <0.46 k/uL Abs Eosin 0.07 LAB ABASO % Baso% 0.5 LAB AABASO <0.11 k/uL Abs Baso 0.04 LAB AUNRBC 0 /100 WBC NRBCs 0.0 LAB ABNRBC <0.01 k/uL Absolute nRBC <0.01 LAB DTYP DTYPE Auto Diff Performed By: #### CBCDIF, CMP #### [facility] [address] [place], [place] [address] COMP METABOLIC PANEL Collected: 11/09/2017 Status: F Source: [place] 2:25 PM [facility] [place] REPOSITORY TYPE CODE TESTS RESULT OUT OF REFERENCE UNITS RANGE LAB TP 6.3-8.0 g/dL Protein, Total 7.5 LAB ALB 3.9-4.9 g/dL Albumin 4.8 LAB CA 8.5-10.2 mg/dL Calcium, Total 10.2 LAB TBIL 0.2-1.3 mg/dL Bilirubin, Total 0.2 LAB ALKP 32-117 U/L Alkaline Phosphatase 57 LAB AST 13-35 U/L AST 20 LAB GLU 74-99 mg/dL Low Glucose 68 Result Comment: The [place] Diabetes Association (ADA) provides guidance for cutoff [...] Standards of Medical Care in Diabetes 2016, [place] [employer] Association. Diabetes Care. 2016.39(Suppl 1). LAB [...] GFR. Performed By: #### CBCDIF, CMP #### [facility] [address] [place], [place] [address] HISTORY PHYSICAL Observed: 11/09/2017 Status: COMPLETED Source: [place] 1:52 PM CLINIC OTHER CAMPUS REPOSITORY HNO ID: [id number] Author: Rosalie Mcmullen) [place] Service: (none) Author Type: Physician Environmental Sustainability Manager Type: HANDP Filed: 11/09/2017 2:56 PM Note [...] (Attention Deficit Disorder) Insomnia, Unspecified Rapid Palpitations Gksrp-Xtkxxknte-Opfaa (Wpw) Syndrome Anxiety Primary Insomnia Stress Incontinence [...] incontinence, female - Unspecified asthma(493.90) - WPW (Hqxlf-Dtdeamnjq-Ycgut syndrome) PAST SURGICAL HISTORY Procedure Laterality Date - DELIVERY ONLY 85, 88,92 , low cervical X3 - ENLARGE BREAST WITH IMPLANT 11/2007 Breast augmentation - IUD INSERTION (HEALTH PHYSICS TECHNICIAN DEPT)_*FL 08/30/2007 Mirena - removed - PAST SURGICAL HISTORY OF 11/2015 bladder sling - REMOVE TONSILS/ADENOIDS,<12 Y/O 1968 - S PK LAVH [id number] 2013 lavh RICKY biltareal salpingectomy - SVT ABLATION W/ EP COMPLETE FAMILY HISTORY Problem Relation Age of Onset - Asthma Father - Emphysema Paternal Grandmother - Seizures Paternal Grandmother - Cancer Paternal Grandfather PROSTATE CANCER[place] - Asthma Son - Asthma Daughter - Seizures Brother wpw SOCIAL HISTORY: Social History Marital status: Spouse name: Years of education: 15 Number of children: 3 Occupational History Occupation Employer Comment [employer] Social History Main Topics Smoking status: Never [...] fevers. Neuro: No history of TIA's, stroke, DIVING COACH tumor, impaired sensorium, hemiplegia, paraplegia or quadraplegia. No neurological symptoms or problems. Respiratory: Positive for Asthma, mild intermittent- flares in summer months, Negative for COPD, Home O2, Tobacco Use, URI < 2 weeks Cardiovascular: Positive for: WPW syndrome and ablation attempted and failed in 11/2016. + palpitations and occasional tachycardia and bradycardia. , Negative for Recent [place], Chest Pain, Valvular Heart Disease, DVT/PE GI: No history of GI symptoms or problems. No history of esophageal varices, recent ascites, or ETOH greater than 2 drinks per day. : No history of dysuria, frequency or incontinence,, stones or chronic kidney disease HEALTH PHYSICS TECHNICIAN: Negative for abnormal vaginal bleeding, abnormal vaginal [...] #: PROGRESS Observed: 11/02/2017 Status: COMPLETED Source: [place] 8:45 AM [facility] REPOSITORY [facility] ID: [id number] Author: Dulce Hoover Service: (none) Author Type: [...] incontinence, female - Unspecified asthma(493.90) - WPW (Dtrda-Gtckodcmq-Bcyje syndrome) PAST SURGICAL HISTORY Procedure Laterality Date - DELIVERY ONLY 85, 88,92 , low cervical X3 - ENLARGE BREAST WITH IMPLANT 11/2007 Breast augmentation - IUD INSERTION (HEALTH PHYSICS TECHNICIAN DEPT)_*FL 08/30/2007 Mirena - removed - PAST SURGICAL HISTORY OF 11/2015 bladder sling - REMOVE TONSILS/ADENOIDS,<12 Y/O 1968 - S PK LAV [id number] 2013 lavh RICKY biltareal salpingectomy - SVT [...] Grandmother - Cancer Paternal Grandfather PROSTATE CANCER, [place] - Asthma Son - Asthma Daughter - Seizures Brother wpw Social History Marital status: Spouse name: Years of education: 15 Number of children: 3 Occupational History Occupation Employer Comment [employer] Social History Main Topics Smoking status: Never [...] MD PROGRESS Observed: 11/01/2017 Status: COMPLETED Source: [place] 2:00 PM [facility] REPOSITORY O ID: [id number] Author: Rika Parada LPN Service: (none) Author [...] of dysuria, frequency or incontinence. ENDOCRINE: None HEALTH PHYSICS TECHNICIAN:Denies any concerns HEALTH PHYSICS TECHNICIAN: Age of first period: 17 Number of [...] tendancy CNOV Observed: 11/01/2017 Status: COMPLETED Source: [place] 2:00 PM [facility] REPOSITORY Office Visit (CANDIDO) NICKI DELACRUZ ([id number]) 1965 F NFR Date Time Provider Department 11/01/17 2:00 PM DULCE HOOVER During your visit today, we recorded the following information about you: Pulse Blood pressure Weight Height 80/minute 167/91 65.8 kg 1.575 m Rika Rojass SAW SHARPENER 11/03/2017 8:52 AM Signed GENERAL:No weight loss, [...] of dysuria, frequency or incontinence. ENDOCRINE: None HEALTH PHYSICS TECHNICIAN:Denies any concerns HEALTH PHYSICS TECHNICIAN: Age of first period: 17 Number of [...] incontinence, female - Unspecified asthma(493.90) - WPW (Fxlzz-Qthrheynr-Bwgdy syndrome) PAST SURGICAL HISTORY Procedure Laterality Date - DELIVERY ONLY 85, 88,92 , low cervical X3 - ENLARGE BREAST WITH IMPLANT 11/2007 Breast augmentation - IUD INSERTION (HEALTH PHYSICS TECHNICIAN DEPT)_*FL 08/30/2007 Mirena - removed - PAST SURGICAL HISTORY OF 11/2015 bladder sling - REMOVE TONSILS/ADENOIDS,ANDlt;13 Y/O 1968 - S PK LAVH [id number] 2013 lavh RICKY biltareal salpingectomy - SVT [...] Grandmother - Cancer Paternal Grandfather PROSTATE CANCER[place] - Asthma Son - Asthma Daughter - Seizures Brother wpw Social History Marital status: Spouse name: Years of education: 15 Number of children: 3 Occupational History Occupation Employer Comment [employer] Social History Main Topics Smoking status: Never [...] Dulce Hoover MD Referring Provider: ANDREW GONZALEZ [[id number]] Allergies As of Date: 11/01/2017 Noted Allergy [...] FOR* More... Rapid palpitations [R00.2] INVALID FOR* Hchwc-Wmsqrsyol-Yirdc (WPW) syndrome [I45.6] INVALID FOR* Chest discomfort [...] and Disposition History Recorded Encounter Status:Closed by DUCLE HOOVER MD on 11/03/17 CNCO Observed: 11/01/2017 Status: COMPLETED Source: [place] 12:00 AM [facility] OTHER CAMPUS REPOSITORY Letter Text Nicki Delacruz Dulce Hoover MD [place] [address] Office: [phone] To Whom It May Concern: This is [...] mailing) HOSP Observed: 11/01/2017 Status: COMPLETED Source: [place] 12:00 AM CLINIC OTHER CAMPUS REPOSITORY Patient:Nicki Delacruz MRN: <[id number]> Height:5' 2(1.575 m) Weight:151 lb (68.493 kg) [...] [F98.8] Insomnia, unspecified [G47.00] Rapid palpitations [R00.2] 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 ENDOCRINE: None HEALTH PHYSICS TECHNICIAN:Denies any concerns HEALTH PHYSICS TECHNICIAN: Age of first period: 17 Number of [...] incontinence, female - Unspecified asthma(493.90) - WPW (Pjmfq-Dvpqzngqq-Zflgn syndrome) PAST SURGICAL HISTORY Procedure Laterality Date - DELIVERY ONLY 85, 88,92 , low cervical X3 - ENLARGE BREAST WITH IMPLANT 11/2007 Breast augmentation - IUD INSERTION (HEALTH PHYSICS TECHNICIAN DEPT)_*FL 08/30/2007 Mirena - removed - PAST SURGICAL HISTORY OF 11/2015 bladder sling - REMOVE TONSILS/ADENOIDS,<12 Y/O 1968 - S PK LAVH [id number] 2013 lavh RICKY biltareal salpingectomy - SVT [...] Grandmother - Cancer Paternal Grandfather PROSTATE CANCER, [place] - Asthma Son - Asthma Daughter - Seizures Brother wpw Social History Marital status: Spouse name: Years of education: 15 Number of children: 3 Occupational History Occupation Employer Comment [employer] Social History Main Topics Smoking status: Never [...] BILIARY DYSKINESIA IN THE APPROPRIATE CLINICAL SETTING. Radio Division Lieutenant: KLARISSA Transcribe Date/Time: Oct 26 2017 4:00P Dictated by : HELLEN CHATTERJEE DO This examination was interpreted and the report reviewed and electronically signed by: QUINTIN WING MD on Oct 26 2017 4:10PM EST [id number] US ABD RIGHT UPPER Observed: 10/04/2017 Status: F Source: [facility] 1:33 PM [facility] REPOSITORY * * *Final Report* * [...] None. IMPRESSION: No acute sonographic abnormalities seen. Radio Division Lieutenant: KLARISSA Transcribe Date/Time: Oct 04 2017 1:40P Dictated by : JIE SARMIENTO MD This examination was interpreted and the report reviewed and electronically signed by: JIE SARMIENTO MD on Oct 04 2017 1:43PM EST [id number] PROGRESS Observed: 10/04/2017 Status: COMPLETED Source: [place] 1:01 PM [facility] REPOSITORY HNO ID: [id number] Author: Cindy Claire Service: (none) Author Type: [...] OF NON Observed: 09/28/2017 Status: F Source: [facility] 12:40 PM [facility] REPOSITORY [facility] Occupational Therapy [facility] [address] [place] [address]. [address] [place] [address] Fax REHABILITATION SERVICES DISCHARGE SUMMARY MR#: [id number] Acct: [id number] Name: NICKI DELACRUZ Rep #: [id number] : 1965 52 From: Marilyn Tirado Referring [...] on 07/28/17 . Measurements are as follows :transport aide R 60, L 47 ; lateral R [...] GENERAL EVALUATION Observed: 07/21/2017 Status: F Source: [place] 11:54 AM [facility] REPOSITORY [facility] Occupational Therapy [facility] [address] [place] [address]. [address] [place], [place] [address] Fax REHABILITATION SERVICES INITIAL EVALUATION MR#: [id number] Acct: [id number] Name: NICKI DELACRUZ Rep #: [id number] : 1965 52 From: Marilyn Tirado Referring Dr.: Andrew Atkins DO Status: REG RCR Insurance: [facility] COMMUNITY PLAN Eval Date: Patient's Visit Information [...] significant pain. She exhibits decreased strength for transport aide in L affected hand as wella s [...] activation to form composite fist. - Strength [place] Hand: R 61, L 35 Lateral Pinch: R [...] to be FAXED BACK to us at [phone] for Medicare purposes. Please let me know [...] 08/30/2018 Drug Tetracyclines/F001 Unknown Unknown [place] Allergy/41 503791(RXNORM) [facility] 1504882([facility]) Repository 08/30/2018 Drug propranolol/I41955 Other Unknown [place] Allergy/41 4740(RXNORM) [facility] 0050525([facility]) Repository 12/27/2017 DRUG ENBUCRILATE RASH [place] [address] Other [place] 1210060([facility]) 09/07/2017 DRUG CITALOPRAM UNKNOWN [place] [address] Other [place] 5022399([facility]) 06/27/2017 Drug Tetracyclines/F001 Unknown [place] Allergy/41 586190(RXNORM) [facility] 8677093([facility]) Repository 06/27/2017 Drug propranolol/Q74352 Other [place] Allergy/41 4740(RXNORM) [facility] 9571355([facility]) Repository 11/20/2013 DRUG/[address] [facility] 1003(OME 23-DAWIT PS VACCINE Other [facility]) Repository 01/25/2007 DRUG PROPRANOLOL Mental Chg [place] [address] Other [place] 8365174(SN Repository OMED CT) 09/08/2005 Environ/[address] [facility] 9773260(SN Other [place] [facility]) Repository 09/08/2005 DRUG MOLD INTOLERANCE [facility]/41 Other [place] 4589310(SN Repository OMED CT) 09/08/2005 Environ/[address] [facility] 3157631(SN Other [place] [facility]) Repository 09/08/2005 Environ/[address] [facility] 3944800(SN Other [place] [facility]) Repository 09/08/2005 DRUG TETRACYCLINE INT[facility]ANCE [facility]/41 Other [place] 7063079(SN Repository OMED CT) NG/5792328 CITALOPRAM [facility] 06(SNOMED [facility]) Repository NG/9543702 DUST [facility] 06(SNOMED [facility]) Repository NG/9544188 ENBUCRILATE [facility] 06(SNOMED [facility]) Repository NG/9940693 MOLD [facility] 06(SNOMED [facility]) Repository NG/5890671 PNEUMOCOCCAL [facility] 06(SNOMED 23-DAWIT PS VACCINE [facility]) Repository NG/8928042 POLLEN [facility] 06(SNOMED [facility]) Repository NG/9090631 PROPRANOLOL [facility] 06(SNOMED [facility]) Repository NG/9766007 SMOKE [facility] 06(SNOMED [facility]) Repository NG/1957974 TETRACYCLINE [facility] 06(SNOMED [facility]) Repository ENCOUNTERS ENCOUNTERS ADMIT/DISCHARGE ACCOUNT NUMBER ADMITTING ENCOUNTER LOCATION SOURCE CLASS 09/05/2018/09/05/20 [id number] Emergency BBuilding:DANYEL Hodgson [address] [place] [address] Repository 08/31/2018 [id number] Ambulatory [facility] ding:MTLAB Repository 08/30/2018/08/30/20 [id number] Emergency [address] ding:ED Repository 08/28/2018 [id number] Ambulatory [facility] ding:LABSPEC Repository 08/28/2018/08/28/20 [id number] Ambulatory BMSBuilding: [place] [facility] Repository 08/21/2018 [id number] Ambulatory [facility] ding:LABSPEC Repository 08/21/2018/08/21/20 [id number] Ambulatory BMSBuilding: [place] [facility] Repository 06/26/2018/06/28/20 [id number] Ambulatory [address] Repository 05/25/2018 [id number] Ambulatory [facility] Repository 05/25/2018/05/25/20 [id number] Ambulatory [place] [address] MEDICAL Repository CENTERBuildi ng:AKCLB 05/23/2018 [id number] Ambulatory BMSBuilding: [place] [facility] Repository 05/10/2018/05/10/20 [id number] Ambulatory [address] Repository 05/10/2018/05/10/20 [id number] Ambulatory [place] [address] MEDICAL Repository CENTERBuildi ng:AGCARDPHR A 04/02/2018/04/03/20 [id number] Emergency [address] Repository 04/02/2018/04/03/20 [id number] Emergency [address] MEDICAL Repository CENTERBuildi ng:AKEDRoom: EDBed: 02 03/28/2018/03/29/20 [id number] [facility] Repository 03/28/2018/03/29/20 [id number] [facility], Inpatient [address] MEDICAL Repository CENTERBuildi nRoom: 2115Bed: 03/23/2018/03/23/20 [id number] Ambulatory [address] Repository 03/23/2018/03/23/20 [id number] Ambulatory [place] [address] MEDICAL Repository CENTERBuildi ng:AGCARDPOB 03/07/2018 [id number] Ambulatory [facility] ding:OPBI Repository 02/16/2018/02/17/20 [id number] Ambulatory [address] Repository 12/27/2017/12/28/19 [id number] Ambulatory [address] Repository 12/21/2017/12/22/19 [id number] Ambulatory [address] Repository 12/21/2017/03/21 [id number] Ambulatory MAXIM Castro [address] MEDICAL Repository CENTERBuildi ng:AGCARDPHR A 12/01/2017/12/07/19 [id number] Ambulatory [address] Main [place] Repository 11/28/2017/12/02/19 [id number] Ambulatory [address] Main [place] Repository 11/22/2017/11/22/19 [id number] Ambulatory [address] Main [place] Repository 11/20/2017/11/20/19 [id number] Emergency [address] ding:ED Repository 11/20/2017/11/20/19 [id number] Ambulatory [address] Main [place] Repository 11/16/2017/11/16/[id number] Other [place] Repository 11/09/[id number] [facility] Main [place] Repository 11/09/2017/11/09/19 [id number] Ambulatory [address] Other [place] Repository 11/01/2017/11/01/19 [id number] Ambulatory [address] [place] Repository 10/26/[id number] [facility] Other [place] Repository 10/04/2017/10/04/19 [id number] Ambulatory [address] [place] Repository 07/20/2017/08/16/20 [id number] Ambulatory [address] ding:OT Repository PAYERS PAYERS ENCOUNTER GUARANTOR PAYER SUBSCRIBER SOURCE 09/05/2018 NICKI Lai [facility] NICKI Lai [facility] OSBORNEDOB: Insurance:[facility] OSBORNEDOB: [facility] [id number] INSCOPolicy Number: [id number] Repository [facility] [id number] 6 [facility], Date:2018-09-05 [place], [place] [id number] [address]Bxi: [id number] Name:YVETTE Niño [email or web address]: [address], [place] (HP)Tel: [phone]: () (HP) [phone] () 08/31/2018 NICKI Lai Primary Insurance:[facility] NICKI Macdonaldoster [id number] W COMMUNITY PLANPolicy OSBORNEDOB: Community MARKET Number: [id number], [place] [id number] Repository 013[address]Ncn: (330) Date:4403-43-79LB [phone] () [address] [place] [address] 55509TO: 08/31/2018 Secondary NOT GIVENUNK [place] Insurance:SELF PAY [facility] Number: Effective Repository Date:2018-08-31 08/30/2018 NICKI Lai Primary Insurance:[facility] NICKI Macdonaldoster [id number] W COMMUNITY PLANPolicy OSBORNEDOB: Community MARKET Number: [id number], [place] [id number] Repository 269[address]Ram: (330) Date:6741-14-80IV [phone] () [address] [place] [address] 63157FI: 08/30/2018 Secondary NOT GIVENUNK [place] Insurance:SELF PAY [facility] Number: Effective Repository Date:2018-08-30 08/28/2018 NICKI Lai Primary Insurance:[facility] NICKI Leon [id number] W COMMUNITY PLANPolicy OSBORNEDOB: Community MARKET Number: [id number], [place] [id number] Repository 49[address]Ewg: (330) Date:1555-37-09ZK [phone] () [address] [place] [address] 45[address]OH: 08/28/2018 Secondary NOT GIVENUNK [place] Insurance:SELF PAY [facility] Number: Effective Repository Date:2018-08-28 08/28/2018 NICKI Lai Primary Insurance:[facility] NICKI Leon [id number] W COMMUNITY PLANPolicy OSBORNEDOB: Community MARKET Number: [id number], [place] [id number] Repository 05[address]Cvi: (330) Date:2113-21-63IK [phone] () [address] [place] [address] 06662UT: 08/28/2018 Secondary NOT GIVENUNK [place] Insurance:SELF PAY [facility] Number: Effective Repository Date:2018-08-28 08/21/2018 NICKI Lai Primary Insurance:[facility] NICKI Macdonaldoster [id number] W COMMUNITY PLANPolicy OSBORNEDOB: Community MARKET Number: [id number], [place] [id number] Repository 375[address]Xjy: (330) Date:6888-40-33IR [phone] () [address] [place] [address] 58483BL: 08/21/2018 Secondary NOT GIVENUNK [place] Insurance:SELF PAY [facility] Number: Effective Repository Date:2018-08-21 08/21/2018 NICKI Lai Primary Insurance:[facility] NICKI Macdonaldoster [id number] W [facility]OSPITAL PLANPolicy OSBORNEDOB: Community MARKET Number: [id number], [place] [id number] Repository 115[address]Kwh: (330) Date:7663-39-23JS [phone] () [address] [place] [address] 26977TY: 08/21/2018 Secondary NOT GIVENUNK [place] Insurance:SELF PAY [facility] Number: Effective Repository Date:2018-08-21 05/25/2018 NICKI Lai Primary Insurance:[facility] NICKI Lai [facility] OSBORNEDOB: COMMUNITY PLAN OSBORNEDOB: [facility] [id number] W MEDICAIDPolicy [id number] Repository MARKET Number: [place], [place] [id number] [address]Iob: (330) Date: [phone] () 05/23/2018 NICKI M Primary Insurance:[facility] NICKI Macdonaldoster [id number] W PS[facility]CHIAT[facility]IC HOSPITAL PLANPolicy OSBORNEDOB: Community Market Number: [id number], [place] [id number] Repository 985[address]Zyi: (330) Date:0672-07-09GX [phone] () [address] [place] [address] 47034KG: 05/23/2018 Secondary NOT GIVENUNK [place] Insurance:SELF PAY [facility] Number: Effective Repository Date:2018-05-23 05/10/2018 NICKI Lai Primary Insurance:[facility] NICKI [facility] OSBORNEDOB: COMMUNITY PLAN OSBORNEDOB: [facility] W MEDICAIDPolicy [id number] Repository MARKET Number: [place] [id number] 038[address]Mem: (330) Date: [phone] (HP) 04/02/2018 NICKI Lai Primary Insurance:[facility] NICKI [facility] OSBORNEDOB: COMMUNITY PLAN OSBORNEDOB: [facility] W MEDICAIDPolicy [id number] Repository MARKET Number: [place] [id number] 60[address]Lsw: (330) Date: [phone] (HP) 03/28/2018 NICKI Lai Primary Insurance:[facility] NICKI [facility] OSBORNEDOB: COMMUNITY PLAN OSBORNEDOB: [facility] W MEDICAIDPolicy [id number] Repository MARKET Number: [place] [id number] 43[address]Cvl: (330) Date: 64 (HP) 03/23/2018 NICKI Lai Primary Insurance:[facility] NICKI [facility] OSBORNEDOB: COMMUNITY PLAN OSBORNEDOB: [facility] W MEDICAIDPolicy [id number] Repository MARKET Number: [place] [id number] 124[address]Drr: (330) Date: 64 (HP) 03/07/2018 NICKI Lai Primary Insurance:[facility] NICKI Lai [place] [id number] W COMMUNITY PLANPolicy OSBORNEDOB: Community Market Number: [id number] [facility] [place] [id number] Repository 877[address]Sfb: (330) Date:5230-63-10OX [phone] () [address] [place] [address] 77350CL: 03/07/2018 Secondary NOT GIVENUNK [place] Insurance:SELF PAY [facility] INSURANCEPolicy Hospital Number: Effective Repository Date:2018-02-07 12/21/2017 NICKI Lai Primary Insurance:[facility] NICKI M [facility] OSBORNEDOB: COMMUNITY PLAN OSBORNEDOB: [facility] [id number] W MEDICAIDPolicy [id number] Repository MARKET Number: [place], [place] [id number] [address]Jrn: (330) Date: [phone] (HP) 11/20/2017 Nicki [id number] Primary Insurance:[facility] Nicki OsborneDOB: [place] [facility] [id number] [place] Number: Hospital [address]Lug: 330 [id number] Repository [phone] (HP) Date:8075-99-66AS [address] [address]HZ: 11/20/2017 Secondary NOT GIVENUNK [place] Insurance:SELF PAY [facility] Hospital Number: Effective Repository Date:2017-11-20 07/20/2017 NICKI [id number] Primary Insurance:[facility] NICKI OSBORNEDOB: [place] [facility] [id number] [place] Number: Hospital [id number]: ([phone]) [id number] Repository [phone] (HP) Date:9341-41-11WD [address] [address]NJ:
== END 2018-08-30 16:13 | disposition home or self-care (01) ==
PROVIDERS: Emergency Provider Emergency Medicine
DX: N12 Tubulo-interstitial nephritis, not specified as acute or chronic (principal); Z79.899 Other long term (current) drug therapy; Z90.710 Acquired absence of both cervix and uterus
CPT/HCPCS: 81001; 96372; 99282

== ENCOUNTER → 2018-08-31 11:27 | Outpatient (CLI) | payer MEDICAID, SELFPAY ==
[2018-08-30 13:15] VITALS: BMI 26.4
[2018-08-31 14:27] LABS: Cholesterol 148 mg/dL (200); Glucose 85 mg/dL (74-106); High Density Lipoprotein 65 mg/dL; Thyroid Stim Hormone (TSH) 2.62 uIU/mL (0.358-3.74); Triglycerides 91 mg/dL; Very Low Density Lipoprotein 18 mg/dL (5-40)
--- OUTSIDE RECORDS SUMMARY | 2018-10-26 14:11 | XMS RPT_ITS ---
:1965 Author Organization OHIP Support Name Relationship Address Phone ZAKI YEUNG Unavailable Unavailable + ZAKI YEUNG Unavailable Unavailable + BUEHLERS Unavailable [address] [place] [address] + [place] [address] VERENICE YEUNG Unavailable [address] + [place] [address] CRISTY GOODMAN Unavailable [address] + [place] [address] BUEHLERS Unavailable [address] [place] + [place] [address] VERENICE EYUNG Unavailable [address] + [place] [address] CRISTY GOODMAN Unavailable [address] + [place] [address] BUEHLERS Unavailable [address] + [place] [address] VERENICE YEUNG Unavailable [address] + [place] [address] CRISTY GOODMAN Unavailable Unavailable + BUEHLERS Unavailable [address] + [place] [address] VERENICE YEUNG Unavailable [address] + [place] [address] CRISTY GOODMAN Unavailable 1 + [place] [address] BUEHLERS Unavailable [address] + [place] [address] VERENICE YEUNG Unavailable [address] + [place] [address] CRISTY GOODMAN Unavailable Unavailable + [place] [address] BUEHLERS Unavailable [address] + [place] [address] YEUNG, VERENICE Unavailable [address] + [place] [address] CRISTY GOODMAN Unavailable 0 + [place] [address] BEELOY, ANICETO Unavailable [address] + [place] [address] BUEHLERS Unavailable [address] [place] + [place] [address] GAMAL VERNEICE Unavailable [address] + [place] [address] RAVEN, ANICETO Unavailable [address] + [place] [address] BUEHLERS Unavailable [address] [place] [address] + [place] [address] YEUNG, VERENICE Unavailable [address] + [place] [address] BEELOY, ANICETO Unavailable [address] + [place] [address] BUEHLERS Unavailable [address] [place] [address] + [place] [address] YEUNG, VERENICE Unavailable [address] + [place] [address] RAVEN ANICETO Unavailable [address] + [place] [address] BUEHLERS Unavailable [address] [place] + [place] [address] YEUNG, VERENICE Unavailable [address] + [place] [address] Care Team Providers Name Role Phone RIK GONZALEZ Primary Care Unavailable Jaida Siu Attending Unavailable Tootie Figueroa Attending Unavailable Tootie Figueroa Referring Unavailable RIK GONZALEZ Primary Care Unavailable eJni Leo Attending Unavailable Tootie Figueroa Attending Unavailable RIK GONZALEZ Referring Unavailable Tootie Figueroa Attending Unavailable RIK GONZALEZ Primary Care Unavailable Tootie Figueroa Referring Unavailable [place], Mary Attending Unavailable CARLOS, RIK Referring Unavailable [place], Mary Attending Unavailable Noel, Mary Referring Unavailable CARLOS, RIK Primary Care Unavailable CARLOS, RIK Primary Care Unavailable JARRETT HOLCOMB Attending Unavailable Noel, Mary Attending Unavailable [place], Mary Referring Unavailable CARLOS, RIK Primary Care Unavailable Andrew Atkins Attending Unavailable CARLOS, RIK Primary Care Unavailable CARLOS, ANDREW S Referring Unavailable [place], DULCE Lux Attending Unavailable CARLOS, ANDREW Bills Referring Unavailable ROSALIE FRANKLIN (PA) Referring Unavailable KRISTINARADHA Ambrose (ORTHOPHOTOGRAPHY TECHNICIAN) Attending Unavailable [place], DULCE E Referring Unavailable [place], DULCE E Attending Unavailable [place], DULCE E Referring Unavailable CARLOS, ANDREW Bills Referring Unavailable CARLOS, ANDREW Bills Attending Unavailable CARLOS, ANDREW Bills Attending Unavailable CARLOS, ANDREW S Referring Unavailable HOOVER, DULCE E Referring Unavailable [place], DULCE E Admitting Unavailable [place], DULCE E Attending Unavailable SCHWEIKERT, ALBINA Rizvi Attending Unavailable ANDREW GONZALEZ Referring Unavailable MATHIEU KEY (TECHNICAL SERVICE ENGINEER) Attending Unavailable MATHIEU KEY (TECHNICAL SERVICE ENGINEER) Referring Unavailable SCHWEIKERT, ALBINA Belkys Admitting Unavailable SCHWEIKERT, ALBINA Rizvi Attending Unavailable MICHAEL SNOW Attending Unavailable AARON BROWN (ORTHOPHOTOGRAPHY TECHNICIAN) Attending Unavailable SCHWEIKERT, ALBINA A Referring Unavailable SCHWEIKERT, ALBINA A Referring Unavailable SANTY GORE Attending Unavailable ANDREW GONZALEZ MD. Primary Care Unavailable SCHWEIKERT, ALBINA Belkys Admitting Unavailable SCHWEIKERT, ALBINA Rizvi Attending Unavailable ANDREW GONZALEZ Primary Care Unavailable SCHWEIKERT, ALBINA Rizvi Referring Unavailable ANDREW GONZALEZ Primary Care Unavailable MICHAEL SNOW Attending Unavailable ANDREW GONZALEZ Primary Care Unavailable SCHWEIKERT, ALBINA Rizvi Attending Unavailable ANDREW GONZALEZ Primary Care Unavailable ANDREW GONZALEZ Referring Unavailable SCHWEIKERT, ALBINA Belkys Referring Unavailable PAYTON SHI Attending Unavailable ANDREW GONZALEZ Primary Care Unavailable MATHIEU KEY Attending Unavailable MATHIEU KEY Referring Unavailable ANDREW GONZALEZ Primary Care Unavailable PROBLEMS PROBLEMS DATE TYPE CONDITION / CODE ATTENDING STATUS SOURCE 08/30/2018 Unknown N12 - ZHANG, Active [place] 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, not Hospital specified as acute or Repository chronic / N12(ICD-10) 08/28/2018 Unknown R30.0 - Dysuria / [place], Active [facility] R30.0(ICD-10) [facility] Repository 08/22/2018 Unknown N89.8 - Other Chongmatthias, Active [facility] specified [facility] noninflammatory Hospital disorders of vagina / Repository N89.8(ICD-10) 08/22/2018 Unknown Z01.411 - Encounter Carolina, Active [place] for gynecological [facility] examination (general) Hospital (routine) with Repository abnormal findings / Z01.411(ICD-10) 04/02/2018 Active Other chest pain / KARI, Active [place] R07.89(ICD-10) [facility] Clinic Other [place] Repository 03/29/2018 Active Other specified SCHWEIKERT, Active [place] postprocedural states ALBINA A Clinic Other / Z98.890(ICD-10) [place] Repository 03/29/2018 Active Supraventricular SCHWEIKERT, Active [place] tachycardia / [facility] A Clinic Other I47.1(ICD-10) [place] Repository 03/29/2018 Active Palpitations / SCHWEIKERT, Active [place] R00.2(ICD-10) AL[facility] A Clinic Other [place] Repository 03/29/2018 Active Pre-excitation SCHWEIKERT, 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 / ALB[facility] A Clinic Other I45.6(ICD-10) [place] Repository 03/29/2018 Admitting Unknown / SCHWEIKERT, Active [facility] General diagnosis UNK(Unknown) [facility] Repository 03/29/2018 Unknown Z12.31 - Encounter Carolina, Active [place] for screening [facility] mammogram for Hospital malignant neoplasm of Repository breast / Z12.31(ICD-10) 12/21/2017 Active Other long-term SCHWEIKERT, Active [place] (current) drug ALBINA A [facility] Other therapy / [place] Z79.899(ICD-10) Repository 12/21/2017 Active Mittelschmerz / SCHWEIKERT, Active [place] N94.0(ICD-10) ALBINA A Clinic Other [place] Repository 11/20/2017 Unknown R10.9 - Unspecified Sherron, Jaida Active [facility] abdominal pain / Community R10.9(ICD-10) Hospital Repository 11/16/2017 Active Other specified HOOVER, Active [place] diseases of DULCE E Clinic Other gallbladder / [place] K82.8(ICD-10) Repository 11/09/2017 Active Encounter for other NA Active [place] preprocedural Clinic Main examination / [place] Z01.818(ICD-10) Repository 10/04/2017 Active Right upper quadrant NA Active [place] pain / R10.11(ICD-10) Clinic Main [place] Repository PROCEDURES PROCEDURES No Procedure Records FoundRESULTS RESULTS Observed: 09/05/2018 Status: F Source: [facility] 7:37 PM [facility] REPOSITORY . MICRO - Microbiology PROCEDURE: Urine [...] Locations *1: This test was performed at: [facility], [address] [place] [address], [address] [place] [address] Performed By: #### CUR #### [place] [address] CBC Collected: 09/05/2018 Status: F Source: [facility] 6:58 PM [facility] REPOSITORY TYPE CODE TESTS RESULT OUT OF [...] 8.5 Performed By: #### GFR, BMP #### [place] [address] #### ADIFF, CBC, ANEU #### [address] [address] .AUTO DIFF Collected: 09/05/2018 Status: F Source: [facility] 6:58 PM [facility] REPOSITORY TYPE CODE TESTS RESULT OUT OF [...] Absolute Performed By: #### GFR, BMP #### [place] [address] #### ADIFF, CBC, ANEU #### [address] [address] .NEUABS Collected: 09/05/2018 Status: F Source: [facility] 6:58 PM [facility] REPOSITORY TYPE CODE TESTS RESULT OUT OF REFERENCE UNITS RANGE LAB ANEU(LOINC) 2.85-6.16 10 3/mcL Neutrophil, 5.30 Absolute Performed By: #### GFR, BMP #### [place] [address] #### ADIFF, CBC, ANEU #### [place] [id number] [place], [place] [address] BMP Collected: 09/05/2018 Status: F Source: [facility] 6:58 PM [facility] REPOSITORY TYPE CODE TESTS RESULT OUT OF [...] 9.4 Performed By: #### GFR, BMP #### [place] [address] #### ADIFF, CBC, ANEU #### [place] [id number] [place], [place] [address] .GFR Collected: 09/05/2018 Status: F Source: [facility] 6:58 [facility] REPOSITORY TYPE CODE TESTS RESULT OUT OF REFERENCE UNITS RANGE LAB GFRAA(LOINC ml/min/1.73 ) sqm GFR 127 [place] Result Comment: GFR Population mean for , [...] meters Performed By: #### GFR, BMP #### [place] [address] #### ADIFF, CBC, ANEU #### [address] [address] UA Collected: 09/05/2018 Status: F Source: [facility] 5:43 [facility] REPOSITORY TYPE CODE TESTS RESULT OUT OF [...] UA Leuk Est Negative Performed By: #### UAMICAO, UA #### [address] [address] .URINALYSIS MICROSCOPIC Collected: 09/05/2018 Status: F Source: [place] (BAY) 5:43 PM [facility] REPOSITORY TYPE CODE TESTS RESULT OUT OF RANGE REFERENCE UNITS LAB WBCUA(LOIN None Seen /hpf C) UA WBC None Seen LAB RBCUA(LOIN None Seen /hpf C) UA RBC None Seen LAB EPIUA(LOIN None Seen /hpf C) Unknown UA Squam Epithelial 0-5 Performed By: #### UAMICBAY, UA #### [place] [address] [place], [place] [address] LIPID PROFILE Collected: 08/31/2018 Status: F Source: [place] 11:42 AM [facility] REPOSITORY TYPE CODE TESTS RESULT OUT OF [...] Performed By: #### L500.4100, L501.0100, L501.9520 #### [facility] [address] [place], [place], [address] GLUCOSE Collected: 08/31/2018 Status: F Source: [place] 11:42 AM [facility] REPOSITORY TYPE CODE TESTS RESULT OUT OF RANGE REFERENCE UNITS LAB L501.0100 74-106 mg/dL Normal GLU 85 Result Comment: Please note revised GLUCOSE reference range effective 2017. Performed By: #### L500.4100, L501.0100, L501.9520 #### [facility] [address] [place], [address] THYROID STIM HORMONE Collected: 08/31/2018 Status: F Source: [place] (TSH) 11:42 AM [facility] REPOSITORY TYPE CODE TESTS RESULT OUT OF RANGE REFERENCE UNITS LAB L501.9520 0.358-3.74 uIU/mL Normal TSH 2.62 Performed By: #### L500.4100, L501.0100, L501.9520 #### [facility] [address] [place], [address] EMERGENCY DEPARTMENT Observed: 08/30/2018 Status: F Source: [place] SUMMARY 3:21 PM [facility] REPOSITORY [facility] Medical Records Department [address] [facility] [place] [address] Emergency Department Summary 08/30/18 1334 MR#: [id number] Acct: [id number] Name: NICKI DELACRUZ Rep #: [id number] : 1965 53 From: Jarrett Holcomb MD [...] pH 6.0 (5.0 - 8.0) Ur Specific Rison 1.025 (1.002-1.030) - Medical Decision Making Urinalysis [...] pain control, and prescriptions for Keflex and [place]. We had initially discussed Bactrim but she said that did not work for her in the past and she prefer to try something else. She understands to return for intractable symptoms, high fevers, otherwise to follow-up with [employer]IST. ED Disposition - Plan for ED Patient: Disposition: Home or Assisted Living Chief Complaint: Abd Pain Diagnosis: Pyelonephritis Instructions: ED Kidney Infec Female Prescriptions: Hydrocodone/Acetaminophen [[place] 5-325 Tablet] 1 each PO Q4H PRN 2 Days #12 tablet PRN Reason: Pain Cephalexin 500 mg PO 4X/DAY #40 capsule Referrals: Tootie Figueroa MD [STAFF PHYSICIAN] - 3-5 Days What to do if you have Problems For any increased pain, shortness of breath, bleeding, nausea or vomiting, chest pain, or any unexpected problems, contact your Primary Care Provider. Call [facility] ([phone]) or report to the closest Emergency Room. Call 911 if necessary. 08/30/18 1521 <Electronically signed by Jarrett Holcomb MD> Date Jarrett Holcomb MD Cosigner Signature (If Indicated): Date CC: RIK GONZALEZ URINALYSIS, COMPLETE Collected: 08/30/2018 Status: F Source: [place] 1:40 PM [facility] REPOSITORY Order Comment: How was Urine Obtained? GOLD TOOLER TO SPECIFY TYPE CODE TESTS RESULT OUT [...] VALUE VERIFIED. CALLED TO RENETTA MENDES 08/30/18 1409 Chai Morgan. RESULTS READ BACK BY RENETTA . [...] 0-5 SEEN Performed By: #### L400.0001 #### [facility] [address] [facility] [address] [place], [place], [address] Observed: 08/28/2018 Status: F Source: [place] CULTURE, URINE 12:00 AM [facility] REPOSITORY Urine Culture ORGANISM 1: Presumptive E. coli [place] Count 11,000-25,000 Presumptive E. coli: REACTION Amoxacillin/Clavulanic [...] <=20 S (NF) indicates non-formulary drug at [facility]. Approval by Infectious Disease Specialist required before non-formulary drugs may be ordered and/or dispensed. Performed By: #### M100.0650 #### [facility] [address] [facility] [address] [place], [place], [id number] Observed: 08/21/2018 Status: F Source: [place] CULTURE, GENITAL 6:54 PM [facility] COMPREHENSIVE REPOSITORY Reason for Exam: vaginal discharge Gram Stain Score = 0 Interpretation: 0-3 Normal, 4-6 Intermediate, 7-10 Positive BV Gram Stain 4+ Gram positive rods 2+ Epithelial cells Gent Cult Comp Normal vaginal alexandro isolated. No yeast, Gardnerella, Neisseria or beta-hemolytic Streptococcus isolated. Performed By: #### M100.1600 #### [facility] [address] [place], [address] SLATE CUTTER OPERATOR OFFICE VISIT Observed: 08/21/2018 Status: F Source: [place] REPORT 4:47 PM [facility] REPOSITORY [facility] [address] [place] [address] OFFICE VISIT Date of Service: 08/21/18 MR#: [id number] Acct: [id number] Name: NICKI DELACRUZ Rep #: [id number] : 1965 Provider: Tootie Figueroa MD Age/Sex: 53/F Location: [facility] Status: Signed Intake Vital Signs08/21/18 Height 5 ft 2 in 08/21/18 Weight: 150 lb 08/21/18 Body Mass Index (BMI) 27.4 08/21/18 Blood Pressure 120/72 Intake Visit Reasons: ANNUAL Chief Complaint: est annual Milieu Therapist Required: No Is patient in pain?: No [...] History Abnormal Pap smear of cervix (Acute) Xslcf-Tsipovcqq-Kcnuq syndrome (Acute) Surgical History S/P (Resolved) S/P [...] Yes additional social history: Patient works at [employer] Pregancy History 3 Elective abortions Hx Para [...] no acute distress, well developed, well groomed [facility] Head: normal to inspection, normocephalic Ears: hearing [...] CC: PROGRESS Observed: 06/26/2018 Status: COMPLETED Source: [place] 3:[address] [facility] REPOSITORY O ID: [id number] Author: Andrew Gonzalez Service: (none) Author Type: [...] we'll have her follow up with the deblocker she has almost daily headaches and all [...] Cyst of Right Ovary Biliary Dyskinesia Wpw (Knbis-Igftillmw-Twdbk Syndrome) Gastro-Esophageal Reflux Disease Without Esophagitis Chronic Sinusitis, Unspecified Benign Neoplasm of Unspecified Ovary Asymptomatic Menopausal State Anxiety Disorder, Unspecified Acquired Absence of Both Cervix and Uterus Paroxysmal Supraventricular Tachycardia (Hcc) Palpitations [place] Current Use of Antiarrhythmic Drug Status Post [...] MD CNOV Observed: 06/26/2018 Status: COMPLETED Source: [place] 3:30 PM [facility] REPOSITORY Office Visit (FAMPBR) NICKI DELACRUZ ([id number]) 1965 F NFR Date Time Provider Department 06/26/18 3:30 PM ANDREW GONZALEZPBHalie During your visit today, we recorded the [...] we'll have her follow up with the deblocker she has almost daily headaches and all [...] Cyst of Right Ovary Biliary Dyskinesia Wpw (Vtflc-Pbnpuimot-Ktfzd Syndrome) Gastro-Esophageal Reflux Disease Without Esophagitis Chronic Sinusitis, Unspecified Benign Neoplasm of Unspecified Ovary Asymptomatic Menopausal State Anxiety Disorder, Unspecified Acquired Absence of Both Cervix and Uterus Paroxysmal Supraventricular Tachycardia (Hcc) Palpitations Detention Current Use of Antiarrhythmic Drug Status Post [...] QUADRIVALENT AGE 3 YRS PLUS + IM [[id number]] Order #: [id number] TDAP VACCINE AGE 7+ IM [61647WCF] Order #: [id number] traZODone (DESYREL) 50 mg tabletTake 1 tablet [...] 3 CONSULT TO GASTROENTEROLOGY [9010] Order #: [id number]: 1 ondansetron (ZOFRAN) 4 mg tabletTake 1 tablet by mouth every 8 hours as needed.Disp: 6 tabletRfl: 0 CONSULT TO NEUROLOGY [9076] Order #: [id number]: 1 MRI LIVER WO/W IVCON [[id number]] Order #: [id number] FUTURE MRI 3D POST PROCESSING [[id number]] Order #: [id number] FUTURE iv contrast (will be provided with [...] FOR* More... Rapid palpitations [R00.2] INVALID FOR*03/23/2018 Yejgg-Qbsaxhlvw-Xuwwq (WPW) syndrome [I45.6] INVALID FOR*03/23/2018 Chest discomfort [R07.89] INVALID FOR*11/13/2015 Abnormal uterine bleeding [N93.9] INVALID FOR*09/02/2014 Anxiety [F41.9] INVALID FOR* Primary insomnia [F51.01] INVALID FOR* Stress incontinence in female [N39.3] INVALID FOR* Encounter for screening colonoscopy [Z12.11] INVALID FOR* Complex cyst of right ovary [N83.291] INVALID FOR* Biliary dyskinesia [K82.8] INVALID FOR* More... WPW (Iujsv-Aqfampdqs-Wlmhr syndrome) [I45.6] Gastro-esophageal reflux disease without esopha*INVALID FOR* Chronic sinusitis, unspecified [J32.9] INVALID FOR* 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] INVALID FOR* Asymptomatic menopausal state [Z78.0] INVALID FOR* Anxiety disorder, unspecified [F41.9] INVALID FOR* Acquired absence of both cervix and uterus [Z90*INVALID FOR* Paroxysmal supraventricular tachycardia (HCC) [* Palpitations [R00.2] shelter current use of antiarrhythmic drug [Z* More... [...] 06/27/18 PROGRESS Observed: 05/10/2018 Status: COMPLETED Source: [place] 3:57 PM CLINIC OTHER CAMPUS REPOSITORY HNO ID: [id number] Author: Aaron Brown Service: (none) Author Type: [...] was referred to Dr. Mcknight at the [facility]. 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; attempt at catheter ablation 11/2016 failed; she continues to experience intermittent palpitations and tachycardia despite treatment with flecainide; successful RFCA 03/2018 PAST SURGICAL HISTORY Procedure Laterality Date - BLADDER SURGERY HX 11/2015 bladder sling - DELIVERY ONLY 85, 88,92 , low cervical X3 - ENLARGE BREAST WITH IMPLANT 11/2007 Breast augmentation - IUD INSERTION ([employer] DEPT)_*FL 08/30/2007 Mirena - removed - OOPHORECTOMY, PART/TOTAL UNILAT/BILAT 2016 - REMOVE TONSILS/ADENOIDS,<12 Y/O 1968 - S PK LAVH [id number] 2014 lavh RICKY biltareal salpingectomy - SVT ABLATION W/ EP COMPLETE 11/24/2016 [facility], Dr. Mcknight; right midseptal AP unable [...] CARDIOVASCULAR MEDICINE TESTING: Electrocardiogram: SR 69 bpm, VT 114 msec, QRS 94 msec, QTC 435 msec I have personally reviewed the Electrocardiogram. IMPRESSION: Ms. Delacruz is a 52 year old female of Dr. 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 She is status post an RF catheter ablation to the left posterior septal accessory pathway on March 28, 2018. She believes she has had episodes of bradycardia as well as tachycardia determined by the [facility]. She has experienced occasional fluttering sensation lasting [...] Plan: EKG WITH INTERPRETATION Payton Brown, MSN, DIVISION ORDER ANALYST.ORTHOPHOTOGRAPHY TECHNICIAN CNOV Observed: 05/10/2018 Status: COMPLETED Source: [place] 3:30 PM CLIN[facility] OTHER CAMPUS REPOSITORY Office Visit (AGCARDPHRA) NICKI DELACRUZ ([id number]) 1965 F NFR Date Time Provider Department 05/10/18 3:30 PM AARON BROWN (ORTHOPHOTOGRAPHY TECHNICIAN) AGCARDPHRA During your visit today, we recorded the following information about you: Pulse Blood pressure Weight Height 85/minute 110/76 66.4 kg 1.575 m Alycia Vernon CMA 05/10/2018 3:26 PM Signed Mrs. Delacruz is here for a 6 week hospital follow up. No cardiac complaints today. KANDI Sutton, MSN, DIVISION ORDER ANALYST.ORTHOPHOTOGRAPHY TECHNICIAN 05/10/2018 4:59 PM Signed HISTORY OF PRESENT [...] was referred to Dr. Mcknight at the [facility]. Her brother has WPW syndrome and [...] arrhythmia 11/2016, 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 - shelter current use of antiarrhythmic drug flecainide; indication: symptomatic PSVT with WPW syndrome - Other anxiety states - Palpitations - Paroxysmal supraventricular tachycardia (HCC) see WPW Syndrome - Stress incontinence, female - Unspecified asthma(493.90) - WPW (Jhbtj-Kofrwolcs-Zzjaa syndrome) associated with symptomatic SVT; attempt at catheter ablation 11/2016 failed; she continues to experience intermittent palpitations and tachycardia despite treatment with flecainide; successful RFCA 03/2018 PAST SURGICAL HISTORY Procedure Laterality Date - BLADDER SURGERY HX 11/2015 bladder sling - DELIVERY ONLY 85, 88,92 , low cervical X3 - ENLARGE BREAST WITH IMPLANT 11/2007 Breast augmentation - IUD INSERTION ([employer] DEPT)_*FL 08/30/2007 Mirena - removed - OOPHORECTOMY, PART/TOTAL UNILAT/BILAT 2016 - REMOVE TONSILS/ADENOIDS,<12 Y/O 1968 - [id number] lav RICKY biltareal salpingectomy - SVT ABLATION W/ EP COMPLETE 11/24/2016 [facility], Dr. Mcknight; right midseptal AP unable [...] CARDIOVASCULAR MEDICINE TESTING: Electrocardiogram: SR 69 bpm, VT 114 msec, QRS 94 msec, QTC 435 msec I have personally reviewed the Electrocardiogram. IMPRESSION: Ms. Delacruz is a 52 [address] of Dr[address] 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 She is status [...] Plan: EKG WITH INTERPRETATION Payton Brown, MSN, DIVISION ORDER ANALYST.JESSICA Brown MSN, DIVISION ORDER ANALYST.JESSICA 05/10/2018 4:15 PM Signed Tachycardia (Fast Heartbeat) [...] disease, which can cause tachycardia. Developed by [employer]. Published by [employer]. Copyright ?2013 [employer] and/or one of its subsidiaries. All rights [...] pain/cramping Date Reviewed: 05/10/2018 Reviewed by: Aaron ([facility] Brown - Fully Assessed Reason for Visit: Hospital Follow Up [177] Cmt: s/p catheter ablation Primary Visit Diagnosis:Paroxysmal supraventricular tachycardia (HCC) [I47.1] Other Visit Diagnosis:Palpitations [R00.2] Order(s):EKG WITH INTERPRETATION [[id number]] Order #: [id number]: 1 Prescriptions as of 05/10/2018 Sig: TRAZODONE [...] FOR* More... Rapid palpitations [R00.2] INVALID FOR*03/23/2018 Qakhv-Wogiosykz-Ejxkv (WPW) syndrome [I45.6] INVALID FOR*03/23/2018 Chest discomfort [R07.89] INVALID FOR*11/13/2015 Abnormal uterine bleeding [N93.9] INVALID FOR*09/02/2014 Anxiety [F41.9] INVALID FOR* Primary insomnia [F51.01] INVALID FOR* Stress incontinence in female [N39.3] INVALID FOR* Encounter for screening colonoscopy [Z12.11] INVALID FOR* Complex cyst of right ovary [N83.291] INVALID FOR* Biliary dyskinesia [K82.8] INVALID FOR* More... WPW (Dojsc-Dfvufoeld-Bgfll syndrome) [I45.6] Gastro-esophageal reflux disease without esopha*INVALID FOR* Chronic sinusitis, unspecified [J32.9] INVALID FOR* 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] INVALID FOR* Asymptomatic menopausal state [Z78.0] INVALID FOR* Anxiety disorder, unspecified [F41.9] INVALID FOR* Acquired absence of both cervix and uterus [Z90*INVALID FOR* Paroxysmal supraventricular tachycardia (HCC) [* Palpitations [R00.2] long term care pharmacist current use of antiarrhythmic drug [Z* More... [...] disease, which can cause tachycardia. Developed by [employer]. Published by [employer]. Copyright ?2014 [employer] and/or one of its subsidiaries. All rights reserved. Visit Notes: >> Alycia Vernon TueMay 10, 2018 3:25 PM Status: [...] Recorded Letter Text Encounter Status:Closed by KEVIN, MSN, JESSICA, PAYTON Choudhary on 05/10/18 CNCO Observed: 04/18/2018 Status: COMPLETED Source: [place] 12:00 AM CLINIC OTHER CAMPUS REPOSITORY Letter Text [facility] Cardiology [address] [facility] [address] Dept: [phone] Dept Albina uLong MD April 18, 2018 Nicki Delacruz [address] [facility] [address] 1965 Dear , Our office has tried to contact you but have been unsuccessful. Please contact our office regarding scheduling a Holter Monitor. Please notify us of any change of your phone number or address. Sincerely, Albina Luong M.D. (Signed electronically to expedite mailing) CHRISS Observed: 04/18/2018 Status: COMPLETED Source: [place] 12:00 AM CLINIC OTHER CAMPUS REPOSITORY Telephone (AGCARDPOB) NICKI DELACRUZ ([id number]) 1965 F NFR Date Time Provider Department 04/18/18 ALBINA LUONG AGCARDPOB During your visit today, [...] pain/cramping Date Reviewed: 04/02/2018 Reviewed by: Adenike Taylor) VINCENT Betancourt - Fully Assessed Reason for [...] FOR* More... Rapid palpitations [R00.2] INVALID FOR*03/23/2018 Ptvbj-Pllvxuigr-Zyjwu (WPW) syndrome [I45.6] INVALID FOR*03/23/2018 Chest discomfort [R07.89] INVALID FOR*11/13/2015 Abnormal uterine bleeding [N93.9] INVALID FOR*09/02/2014 Anxiety [F41.9] INVALID FOR* Primary insomnia [F51.01] INVALID FOR* Stress incontinence in female [N39.3] INVALID FOR* Encounter for screening colonoscopy [Z12.11] INVALID FOR* Complex cyst of right ovary [N83.291] INVALID FOR* Biliary dyskinesia [K82.8] INVALID FOR* More... WPW (Lstqd-Zsmfbwjtr-Mrmtt syndrome) [I45.6] Gastro-esophageal reflux disease without esopha*INVALID FOR* Chronic sinusitis, unspecified [J32.9] INVALID FOR* 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] INVALID FOR* Asymptomatic menopausal state [Z78.0] INVALID FOR* Anxiety disorder, unspecified [F41.9] INVALID FOR* Acquired absence of both cervix and uterus [Z90*INVALID FOR* Paroxysmal supraventricular tachycardia (HCC) [* Palpitations [R00.2] long term care pharmacist current use of antiarrhythmic drug [Z* More... Status post ablation of accessory bypass tract *INVALID FOR* Encounter Status:Closed by LATASHA PEDROZA on 04/18/18 CHRISS Observed: 04/04/2018 Status: COMPLETED Source: [place] 12:00 AM CLINIC OTHER CAMPUS REPOSITORY Telephone (AGCARDPOB) NICKI DELACRUZ ([id number]) 1965 F NFR Date Time Provider Department 04/04/18 ALBINA LUONG During your visit today, we recorded the following information about you: Venecia Riavs RN 04/04/2018 4:38 PM Addendum Patient called [...] Visit Diagnosis:Palpitations [R00.2] Order(s):HOLTER MONITOR 48 HOUR [[id number]] Order #: [id number] FUTURE Prescriptions as of 04/04/2018 Sig: ONDANSETRON [...] FOR* More... Rapid palpitations [R00.2] INVALID FOR*03/23/2018 Fsmga-Rpdiwvpgq-Hqrbj (WPW) syndrome [I45.6] INVALID FOR*03/23/2018 Chest discomfort [R07.89] INVALID FOR*11/13/2015 Abnormal uterine bleeding [N93.9] INVALID FOR*09/02/2014 Anxiety [F41.9] INVALID FOR* Primary insomnia [F51.01] INVALID FOR* Stress incontinence in female [N39.3] INVALID FOR* Encounter for screening colonoscopy [Z12.11] INVALID FOR* Complex cyst of right ovary [N83.291] INVALID FOR* Biliary dyskinesia [K82.8] INVALID FOR* More... 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 Status post ablation of accessory bypass tract *INVALID FOR* Encounter Status:Closed by ALBINA LUONG MD on 04/04/18 ED NOTE Observed: 04/03/2018 Status: COMPLETED Source: [place] 12:59 AM [facility] REPOSITORY HNO ID: [id number] Author: Kimber (Rn) VINCENT Martinez Service: Emergency Medicine Author Type: Registered Nurse Type: ED Notes Filed: 04/03/2018 12:59 AM Note Text: Discharge instructions and prescriptions given to pt. Pt verbalized understanding of follow up with PCP and s/s to return to ED. All questions answered. Pt ambulatory by self on departure. ED PROV NOTE Observed: 04/03/2018 Status: COMPLETED Source: [place] 12:59 AM [facility] REPOSITORY HNO ID: [id number] Author: Michael Snow MD Service: Emergency Medicine [...] family history with her grandfather having an WI in his 50s or 60s. She denies history of VTE. She is currently not on anticoagulation or antiarrhythmics following her procedure. 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; attempt at catheter ablation 11/2016 failed; she continues to experience intermittent palpitations and tachycardia despite treatment with flecainide; successful RFCA 03/2018 PAST SURGICAL HISTORY Procedure Laterality Date - BLADDER SURGERY HX 11/2015 bladder sling - DELIVERY ONLY 85, 88,92 , low cervical X3 - ENLARGE BREAST WITH IMPLANT 11/2007 Breast augmentation - IUD INSERTION ([employer] DEPT)_*[place] 08/30/2007 Mirena - removed - OOPHORECTOMY, PART/TOTAL UNILAT/BILAT 2016 - REMOVE TONSILS/ADENOIDS,<12 Y/O 1969 - S PK LAVH [id number] 2013 lavh RICKY biltareal salpingectomy - SVT ABLATION W/ EP COMPLETE 11/24/2016 [facility], Dr. Mcknight; right midseptal AP unable [...] 0.06 (*) 0.00 - 0.05 thou/cmm Abs. Kingfisher 0.75 (*) 0.27 - 0.70 thou/cmm All other components within normal limits [facility] TROPONIN I ([facility] ED) - Abnormal; Notable for the following: ECU Troponin I 0.360 (*) 0.015 - 0.045 ng/ml All other components within normal limits ECU TROPONIN I ([facility] ED) - Abnormal; Notable for the following: ECU Troponin I 0.331 (*) 0.015 - 0.045 ng/ml All other components within normal limits MDRD GFR Results for orders placed or performed during the hospital encounter of 04/02/18 XR CHEST 2V FRONTAL/LAT Result Value Ref Range Study Assistant EXAMINATION: CHEST RADIOGRAPH (2 VIEW FRONTAL AND [...] (GATED) WO/W IVCON Result Value Ref Range Study Assistant CTA of the chest, abdomen, and pelvis [...] ABD/PEL W IVCON Result Value Ref Range Study Assistant CTA of the chest, abdomen, and pelvis [...] Lymph 3.52 1.18 - 3.74 thou/cmm Abs. Kingfisher 0.75 (H) 0.27 - 0.70 thou/cmm Abs. [...] pain, unspecified type Plan SIGNATURE: DO Melissa Costello (Ildefonso) DO Tiffanie Resident 04/03/18 1419 Melissa Moreno DO Resident 04/03/18 1421 Michael Snow MD 04/03/182321 ED NOTE Observed: 04/02/2018 Status: COMPLETED Source: [place] 11:04 PM CLINIC OTHER CAMPUS REPOSITORY HNO ID: [id number] Author: Kimber (Rn) VINCENT Martinez Service: Emergency Medicine Author Type: Registered Nurse Type: ED Notes Filed: 04/02/2018 11:04 PM Note Text: Patient returned to the Emergency Department. CTA CHEST (GATED) Observed: 04/02/2018 Status: F Source: [facility] WO/W IV CON 10:27 PM HEALTH SYSTEM REPOSITORY Performed at [facility] APPROVED BY: PORSHA KAY MD CTA [...] IV CON Observed: 04/02/2018 Status: F Source: [facility] 10:27 PM HEALTH SYSTEM REPOSITORY Performed at [facility] APPROVED BY: PORSHA KAY MD CTA [...] ED NOTE Observed: 04/02/2018 Status: COMPLETED Source: [place] 8:[address] [facility] OTHER CAMPUS REPOSITORY HNO ID: [id number] Author: Kimber (Rn) VINCENT Martinez Service: Emergency Medicine Author Type: Registered Nurse Type: ED Notes Filed: 04/02/2018 9:02 PM Note Text: Called ER Transportation for transport pt to CT at this time ECU TROPONIN I Collected: 04/02/2018 Status: F Source: [facility] 8:52 PM HEALTH SYSTEM REPOSITORY TYPE CODE TESTS RESULT OUT OF REFERENCE UNITS RANGE LAB ERTRP(LOINC 0.015-0.045 ng/ml ) High ECU Troponin I 0.331 Performed By: #### ERTRP #### [facility] [address] [place] [address] ED PROV NOTE Observed: 04/02/2018 Status: COMPLETED Source: [place] 8:[address] [facility] OTHER D [place] REPOSITORY HNO ID: [id number] Author: Michael Snow MD Service: Emergency Medicine [...] is borderline elevated but no ST elevation WI on EKG. This troponin elevation may be because of the cardiac ablation and therefore we will trend troponins. We will discuss with cardiology but patient likely will need admitted for observation. Michael Snow MD 04/02/18 2100 CHEST 2 VIEWS Observed: 04/02/2018 Status: F Source: [facility] 7:31 PM HEALTH SYSTEM REPOSITORY Performed at [facility] APPROVED BY: Baljeet Lamb MD EXAMINATION: [...] assessment. HEMOGRAM/DIFF Collected: 04/02/2018 Status: F Source: [facility] 5:52 PM HEALTH SYSTEM REPOSITORY TYPE [...] 3.52 LAB MONON(LOINC) 0.27-0.70 thou/cmm High Abs. Kingfisher 0.75 LAB EOSN(LOINC) 0.00-0.31 thou/cmm Abs. Eosin 0.08 LAB BASON(LOINC) 0.01-0.08 thou/cmm Abs. Baso 0.04 Performed By: #### CBCD1 #### [place] [address] BASIC PANEL Collected: 04/02/2018 Status: F Source: [facility] 5:52 PM HEALTH SYSTEM REPOSITORY TYPE [...] Gap 11 Performed By: #### P8 #### [place] [address] MDRD GFR Collected: 04/02/2018 Status: F Source: [facility] 5:52 PM HEALTH SYSTEM REPOSITORY TYPE CODE TESTS RESULT OUT OF RANGE REFERENCE UNITS LAB GFRFN(LOINC >60mL/min/1.73m ) 2 eGFR >60 Result Comment: If the patient is , multiply the result by 1.210. Performed By: #### GFR #### [facility] [address] [place] [id number] ECU TROPONIN I Collected: 04/02/2018 Status: F Source: [facility] 5:52 PM HEALTH SYSTEM REPOSITORY TYPE CODE TESTS RESULT OUT OF REFERENCE UNITS RANGE LAB ERTRP(LOINC 0.015-0.045 ng/ml ) High ECU Troponin I 0.360 Performed By: #### ERTRP #### [facility] [address] [place] [address] EKG (AK,AV,EU,FV,HL,PAUL,MM,SP) Observed: Status: F Source: [place] 04/02/2018 5:45 PM CLINIC OTHER CAMPUS REPOSITORY NAME : NICKI DELACRUZ PID : [id number] : 1965 Gender : Female Race : ORD : [id number] Procedure Date : Apr 02 2018 17:45 [...] ms QTC Calculation(Bezet) : 428 ms P Arnold : 60 degrees R Arnold : 57 degrees T Arnold : 19 degrees Test Reason : Chest Pain Location : 4 : AKED ED Overread By : Kanika Bennett Editted By : Kanika Bennett Referred By : BALJEET MICHELLE Acquired by : Sanjuanita Taylor ED TRIAGE NOTE Observed: 04/02/2018 Status: COMPLETED Source: [place] 5:37 PM CLINIC OTHER CAMPUS REPOSITORY HNO ID: [id number] Author: Baljeet Mcmullen) Tutu Service: Emergency Medicine Author Type: Physician Physician/Allergy/Immunology Type: ED Triage Notes Filed: 04/02/2018 5:38 [...] Jaime CNDS Observed: 03/29/2018 Status: COMPLETED Source: [place] 9:51 AM CLINIC OTHER CAMPUS REPOSITORY HNO ID: [id number] Author: Aaron Brown Service: Electrophysiology Author Type: [...] 6-8 weeks. OTHER PROBLEMS/DIAGNOSIS: Principal Problem: WPW (Jkwmc-Wwebqsmqf-Jvlod syndrome) Active Problems: Paroxysmal supraventricular tachycardia (HCC) [...] to call for appointment?: No Albina Luong [phone] [address] [facility] [address] [facility] [address] PCP Requested Referral FOLLOW-UP APPOINTMENTS ALREADY SCHEDULED WITH A [facility] PROVIDER: Future Appointments Date Time Provider Department Center 05/10/2018 3:30 PM Aaron (Jessica) Kevin PANGPH AG POB DISCHARGE MEDICATION: Current Discharge Medication [...] of this patient. SIGNATURE: Payton Brown, MSN, DIVISION ORDER ANALYST.ORTHOPHOTOGRAPHY TECHNICIAN PAGER/CONTACT #: [phone] DATE: March 29, 2018 TIME: 9:51 AM EKG (AK,AV,EU,FV,HL,PAUL,MM,SP) Observed: Status: F Source: [place] 03/29/2018 7:58 AM CLINIC OTHER CAMPUS REPOSITORY NAME : NICKI DELACRUZ PID : [id number] : 1965 Gender : Female Race : ORD : [id number] Procedure Date : Mar 29 2018 07:58 [...] ms QTC Calculation(Bezet) : 413 ms P Arnold : 65 degrees R Arnold : 42 degrees T Arnold : 3 degrees Test Reason : Arrhythmia Location : 21 : 2100 2114 Overread By : MD Verduzco Vinay Editted By : MD Verduzco Vinay Referred By : ALBINA LUONG Acquired by : Ana Mack MDRD GFR Collected: 03/29/2018 Status: F [facility]: [facility] 5:00 AM HEALTH SYSTEM REPOSITORY TYPE CODE TESTS RESULT OUT OF RANGE REFERENCE UNITS LAB GFRFN(LOINC >60mL/min/1.73m ) 2 eGFR 56.32 Result Comment: If the patient is , multiply the result by 1.210. Performed By: #### GFR #### [place] [address] HEMOGRAM Collected: 03/29/2018 Status: F Source: [facility] 5:00 AM HEALTH SYSTEM REPOSITORY TYPE [...] MPV 10.2 Performed By: #### CBC1 #### [place] [address] BASIC PANEL Collected: 03/29/2018 Status: F Source: [facility] 5:00 AM HEALTH SYSTEM REPOSITORY TYPE [...] Gap 11 Performed By: #### P8 #### [place] [address] NURSING PROG Observed: 03/28/2018 Status: COMPLETED Source: [place] 9:56 PM [facility] REPOSITORY HNO ID: [id number] Author: Sanjuanita (Rn) VINCENT Dick Service: Nursing [...] ANES POST Observed: 03/28/2018 Status: COMPLETED Source: [place] 4:08 PM [facility] REPOSITORY HNO ID: [id number] Author: Andrwe Childs Service: Anesthesiology Author Type: Physician Type: [...] 1426 PROGRESS Observed: 03/28/2018 Status: COMPLETED Source: [place] 2:59 PM [facility] REPOSITORY HNO ID: [id number] Author: Daphney BucknerRn) VINCENT Sears Service: Nursing Author Type: Registered Nurse Type: Progress Notes Filed: 03/28/2018 3:00 PM Note Text: Patient c/o midsternal sharp chest pain and back back between her shoulder rated 8/10. Aaron Cunha notified. No further orders obtained at this time. OPERATIVE NO Observed: 03/28/2018 Status: COMPLETED Source: [place] 12:54 PM [facility] REPOSITORY HNO ID: [id number] Author: Albina Luong Service: Electrophysiology Author Type: Physician Type: Operative Report Filed: 03/28/2018 12:54 PM Note Text: See paper report filed in paper chart today. Albina Luong MD March 28, 2018 12:54 PM BRIEF OP NOT Observed: 03/28/2018 Status: COMPLETED Source: [place] 12:49 PM [facility] REPOSITORY HNO ID: [id number] Author: Albina Luong Service: Electrophysiology Author Type: Physician Type: Brief Op Note Filed: 03/28/2018 12:54 PM Note Text: BRIEF OPERATIVE / PROCEDURE NOTE LOG ID: [id number] SURGERY/PROCEDURE DATE: 03/28/2018 SURGEON(S)/PROCEDURALIST(S) AND ACCOUNTS PAYABLE ADMINISTRATOR(S): Surgeon(s) and Role: * Albina Luong - Primary No Additional Staff SURGERY/PROCEDURE(S): Comprehensive EP study with radiofrequency catheter ablation of supraventricular tachycardia (SVT) ANESTHESIA: General FINDINGS: Patient arrived to EP laboratory in sinus rhythm with manifest ventricular pre-excitation aka Qrflh-Pluaahfeg-Bwiih pattern. Comprehensive EP study was performed. This [...] PRE-OP/PRE-PROCEDURE DIAGNOSIS: 1) paroxysmal supraventricular tachycardia; 2) Vqkqm-Couvqswdr-Csdlq syndrome; 3) palpitations POST-OP/POST-PROCEDURE DIAGNOSIS: 1) paroxysmal supraventricular tachycardia; 2) Rmlaf-Fwejczgmt-Ickvv syndrome; 3) palpitations SIGNATURE: Albina Luong MD PATIENT NAME: Nicki Delacruz DATE: March 28, 2018 TIME: 12:49 PM PAGER/CONTACT #: [phone] HISTORY PHYSICAL Observed: 03/28/2018 Status: COMPLETED Source: [place] 8:17 AM [facility] REPOSITORY HNO ID: [id number] Author: Albina Luong Service: Electrophysiology Author Type: Physician Type: HANDP Filed: 03/28/2018 8:18 AM Note Text: Matthew General Electrophysiology (EP) - [facility] HANDP from 03/23/2018 copied forward here: Office Visit 03/23/2018 [facility] Cardiology Matthew Comer (Jessica) [facility] Cardiology Paroxysmal supraventricular tachycardia [...] was referred to Dr. Mcknight at the [facility]. Her brother has a history of [...] discussed and reviewed the records available in [place]. He reviewed the treatment options available one option would be to increase the flecainide dosing. This would be a short-term strategy. A longer-term strategy would be to try to repeat catheter ablation. Patient prefers to undergo a catheter ablation procedure which is scheduled for March 28 at [facility]. ? Procedure will be under general anesthesia. [...] 3 ? Occupational History Occupation Employer Comment [employer] ? Social History Main Topics Smoking status: [...] 08/30/2007 ? Mirena, removed March 10 - long term care pharmacist current use of antiarrhythmic drug ? ? flecainide; indication: symptomatic PSVT with WPW syndrome - Other anxiety states ? - Palpitations ? - Paroxysmal supraventricular tachycardia (HCC) ? - Stress incontinence, female ? - Unspecified asthma(493.90) ? - WPW (Jxggr-Xcuqmtrrm-Azhan syndrome) ? ? associated with symptomatic SVT; [...] 11/2007 ? Breast augmentation - IUD INSERTION ([employer] DEPT)_*[place] ? 08/30/2007 ? Mirena - removed - OOPHORECTOMY, PART/TOTAL UNILAT/BILAT ? 2016 - REMOVE TONSILS/ADENOIDS,<12 Y/O ? 1968 - S PK LAVH [id number] ? 2013 ? lavh RICKY biltareal salpingectomy - SVT ABLATION W/ EP COMPLETE ? 11/24/2016 ? [facility], Dr. Mcknight; right midseptal AP unable [...] with an ablation on March 28 at [facility]. She was instructed that she does need a laundry route driver to and from the hospital. She'll [...] ANES PREOP Observed: 03/28/2018 Status: COMPLETED Source: [place] 8:12 AM CLINIC OTHER CAMPUS REPOSITORY HNO ID: [id number] Author: Aron Lashonjerel Service: Anesthesiology Author Type: Physician Type: Anesthesia [...] Cyst of Right Ovary Biliary Dyskinesia Wpw (Eujpq-Qsjwiozxp-Quvgy Syndrome) Gastro-Esophageal Reflux Disease Without Esophagitis Chronic Sinusitis, Unspecified Benign Neoplasm of Unspecified Ovary Asymptomatic Menopausal State Anxiety Disorder, Unspecified Acquired Absence of Both Cervix and Uterus Paroxysmal Supraventricular Tachycardia (Hcc) Palpitations [employer] [place] Current Use of Antiarrhythmic Drug PAST MEDICAL HISTORY Diagnosis Date - Allergic rhinitis due to other allergen - Encounter for insertion or removal of intrauterine contraceptive device 08/30/2007 Mirena, removed March 10 - shelter current use of antiarrhythmic drug flecainide; indication: symptomatic PSVT with WPW syndrome - Other anxiety states - Palpitations - Paroxysmal supraventricular tachycardia (HCC) - Stress incontinence, female - Unspecified asthma(493.90) - WPW (Rcchp-Ofaoxezob-Jhrxn syndrome) associated with symptomatic SVT; attempt at catheter ablation 11/2016 failed; she continues to experience intermittent palpitations and tachycardia despite treatment with flecainide PAST SURGICAL HISTORY Procedure Laterality Date - BLADDER SURGERY HX 11/2015 bladder sling - DELIVERY ONLY 85, 88,92 , low cervical X3 - ENLARGE BREAST WITH IMPLANT 11/2007 Breast augmentation - IUD INSERTION ([employer] DEPT)_*[place] 08/30/2007 Mirena - removed - OOPHORECTOMY, PART/TOTAL UNILAT/BILAT 2016 - REMOVE TONSILS/ADENOIDS,<12 Y/O 1968 - S PK LAVH [id number] 2013 lavh RICKY biltareal salpingectomy - SVT ABLATION W/ EP COMPLETE 11/24/2016 [facility], Dr. Mcknight; right midseptal AP unable [...] March 28, 2018 TIME: 8:12 AM CSN: [id number] HEMOGRAM Collected: 03/28/2018 Status: F Source: [facility] 7:05 HEALTH SYSTEM REPOSITORY TYPE CODE [...] MPV 10.3 Performed By: #### CBC1 #### [place] [address] BASIC PANEL Collected: 03/28/2018 Status: F Source: [facility] 7:05 HEALTH SYSTEM REPOSITORY TYPE CODE [...] Gap 8 Performed By: #### P8 #### [facility] [address] [place], [place] [address] CNPN Observed: 03/28/2018 Status: COMPLETED Source: [place] 12:00 AM CLINIC OTHER CAMPUS REPOSITORY Telephone (AKPRAD) NICKI DELACRUZ ([id number]) 1965 F NFR Date Time Provider Department [...] FOR* More... Rapid palpitations [R00.2] INVALID FOR*03/23/2018 Mdywl-Actexugna-Bbqcs (WPW) syndrome [I45.6] INVALID FOR*03/23/2018 Chest discomfort [R07.89] INVALID FOR*11/13/2015 Abnormal uterine bleeding [N93.9] INVALID FOR*09/02/2014 Anxiety [F41.9] INVALID FOR* Primary insomnia [F51.01] INVALID FOR* Stress incontinence in female [N39.3] INVALID FOR* Encounter for screening colonoscopy [Z12.11] INVALID FOR* Complex cyst of right ovary [N83.291] INVALID FOR* Biliary dyskinesia [K82.8] INVALID FOR* More... WPW (Kddil-Fdblzmfcp-Npsnc syndrome) [I45.6] Gastro-esophageal reflux disease without esopha*INVALID FOR* Chronic sinusitis, unspecified [J32.9] INVALID FOR* 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] INVALID FOR* Asymptomatic menopausal state [Z78.0] INVALID FOR* Anxiety disorder, unspecified [F41.9] INVALID FOR* Acquired absence of both cervix and uterus [Z90*INVALID FOR* Paroxysmal supraventricular tachycardia (HCC) [* Palpitations [R00.2] shelter current use of antiarrhythmic drug [Z* More... Encounter Status:Closed by ALBINA LUONG MD on 03/28/18 PROGRESS Observed: 03/23/2018 Status: COMPLETED Source: [place] 4:52 PM CLINIC OTHER CAMPUS REPOSITORY HNO ID: [id number] Author: Mathieu Key Service: (none) Author Type: Nurse Practitioner Type: [...] was referred to Dr. Mcknight at the [facility]. Her brother has a history of [...] discussed and reviewed the records available in [facility]. He reviewed the treatment options available one option would be to increase the flecainide dosing. This would be a short-term strategy. A longer-term strategy would be to try to repeat catheter ablation. Patient prefers to undergo a catheter ablation procedure which is scheduled for March 28 at [facility]. Procedure will be under general anesthesia. Patient [...] children: 3 Occupational History Occupation Employer Comment [employer] Social History Main Topics Smoking status: Never Smoker Smokeless tobacco: Never Used Alcohol use: Yes Comment: occasionally Drug use: No Sexual activity: Yes Partners with: Male control/protection: Other, Surgical Comment: Hysterectomy Other Topics Concern Caffeine Concern Yes Special Diet No Exercise No Comment:sedentary Social History Narrative [facility] report reviewed February 16, 2012 Gale Bravo MD PAST MEDICAL HISTORY Diagnosis Date - Allergic rhinitis due to other allergen - Encounter for insertion or removal of intrauterine contraceptive device 08/30/2007 Mirena, removed March 10 - long term care pharmacist current use of antiarrhythmic drug flecainide; indication: symptomatic PSVT with WPW syndrome - Other anxiety states - Palpitations - Paroxysmal supraventricular tachycardia (HCC) - Stress incontinence, female - Unspecified asthma(493.90) - WPW (Qexbi-Tkvttptlm-Iugyk syndrome) associated with symptomatic SVT; attempt at catheter ablation 11/2016 failed; she continues to experience intermittent palpitations and tachycardia despite treatment with flecainide PAST SURGICAL HISTORY Procedure Laterality Date - BLADDER SURGERY HX 11/2015 bladder sling - DELIVERY ONLY 85, 88,92 , low cervical X3 - ENLARGE BREAST WITH IMPLANT 11/2007 Breast augmentation - IUD INSERTION ([employer] DEPT)_*FL 08/30/2007 Mirena - removed - OOPHORECTOMY, PART/TOTAL UNILAT/BILAT 2016 - REMOVE TONSILS/ADENOIDS,<12 Y/O 1968 - S PK LAVH [id number] 2013 lavh RICKY biltareal salpingectomy - SVT ABLATION W/ EP COMPLETE 11/24/2016 [facility], Dr. Mcknight; right midseptal AP unable [...] with an ablation on March 28 at [facility]. She was instructed that she does need a laundry route driver to and from the hospital. She'll receive a call the night before from the heart and vascular Center instructing her on time of arrival. She will be NPO from midnight the day before. Follow-up appointment will be determined after the procedure and at the time of discharge. CNOV Observed: 03/23/2018 Status: COMPLETED Source: [place] 3:30 PM CLINIC OTHER CAMPUS REPOSITORY Office Visit (AGCARDPOB) NICKI DELACRUZ ([id number]) 1965 F NFR Date Time Provider Department [...] was referred to Dr. Mcknight at the [facility]. Her brother has a history of [...] discussed and reviewed the records available in [place]. He reviewed the treatment options available one option would be to increase the flecainide dosing. This would be a short-term strategy. A longer-term strategy would be to try to repeat catheter ablation. Patient prefers to undergo a catheter ablation procedure which is scheduled for March 28 at [facility]. Procedure will be under general anesthesia. Patient [...] children: 3 Occupational History Occupation Employer Comment [employer] Social History Main Topics Smoking status: Never [...] device 08/30/2007 Mirena, removed March 10 - long term care pharmacist current use of antiarrhythmic drug flecainide; indication: symptomatic PSVT with WPW syndrome - Other anxiety states - Palpitations - Paroxysmal supraventricular tachycardia (HCC) - Stress incontinence, female - Unspecified asthma(493.90) - WPW (Mpeou-Rgbtnpahl-Oihba syndrome) associated with symptomatic SVT; attempt at catheter ablation 11/2016 failed; she continues to experience intermittent palpitations and tachycardia despite treatment with flecainide PAST SURGICAL HISTORY Procedure Laterality Date - BLADDER SURGERY HX 11/2015 bladder sling - DELIVERY ONLY 85, 88,92 , low cervical X3 - ENLARGE BREAST WITH IMPLANT 11/2007 Breast augmentation - IUD INSERTION ([employer] DEPT)_*FL 08/30/2007 Mirena - removed - OOPHORECTOMY, PART/TOTAL UNILAT/BILAT 2016 - REMOVE TONSILS/ADENOIDS,<12 Y/O 1968 - S PK LAVH [id number] 2013 lavh RICKY biltareal salpingectomy - SVT ABLATION W/ EP COMPLETE 11/24/2016 [facility], Dr. Mcknight; right midseptal AP unable [...] with an ablation on March 28 at [facility]. She was instructed that she does need a laundry route driver to and from the hospital. She'll receive a call the night before from the heart and vascular Center instructing her on time of arrival. She will be NPO from midnight the day before. Follow-up appointment will be determined after the procedure and at the time of discharge. 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 Rapid palpitations [R00.2] INVALID FOR*03/23/2018 Blndu-Ewvkyibpe-Pdeiu (WPW) syndrome [I45.6] INVALID FOR*03/23/2018 Chest discomfort [R07.89] INVALID FOR*11/13/2015 Abnormal uterine bleeding [N93.9] INVALID FOR*09/02/2014 Anxiety [F41.9] INVALID FOR* Primary insomnia [F51.01] INVALID FOR* Stress incontinence in female [N39.3] INVALID FOR* Encounter for screening colonoscopy [Z12.11] INVALID FOR* Complex cyst of right ovary [N83.291] INVALID FOR* Biliary dyskinesia [K82.8] INVALID FOR* More... WPW (Bxucf-Csprcqhei-Ekzxf syndrome) [I45.6] Gastro-esophageal reflux disease without esopha*INVALID FOR* Chronic sinusitis, unspecified [J32.9] INVALID FOR* 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] INVALID FOR* Asymptomatic menopausal state [Z78.0] INVALID FOR* Anxiety disorder, unspecified [F41.9] INVALID FOR* Acquired absence of both cervix and uterus [Z90*INVALID FOR* Paroxysmal supraventricular tachycardia (HCC) [* Palpitations [R00.2] long term care pharmacist current use of antiarrhythmic drug [Z* More... Visit Notes: >> Echo Baez [facility] Mar 23, 2018 3:49 PM Status: Signed Patient denies any cardiac complaints today. Echo Baez CMA Follow-up and Disposition History Recorded Letter Text [facility] Cardiology [place] [address] [facility] [address] Dept: [phone] Dept Mathieu Key APRN.CNP March 23, 2018 Nicki Delacruz [address] [facility] [address] 1965 To Whom It May Concern: This [...] DOWNTIME REPORT Observed: 03/23/2018 Status: F Source: [place] 12:03 PM [facility] REPOSITORY [facility] Medical Records Department [address] [place] [address] Downtime Report MR#: [id number] Acct: [id number] Name: NICKI DELACRUZ Rep #: [id number] : 1965 52 From: Pk Wilcox PCP: RIK GONZALEZ Status: REG CLI This patient was seen during an EMR downtime March 06, 2018 - March 13, 2018. This patient may have a combination of paper and electronic documentation or all paper documentation. All documentation is viewable within the e-chart portion of [facility] for each patient visit. SCREENING MAMM (CAD), Observed: 03/10/2018 Status: F Source: [place] 9:47 AM [facility] REPOSITORY [facility] Imaging Services [address] [place] [address] SCREENING MAMM (CAD), BILAT MR#: [id number] Acct: [id number] Name: NICKI DELACRUZ Rep #: [id number] : 1965 F 52 From: Angel Ramirez MD PCP: RIK GONZALEZ Status: REG CLI Study: SCREENING MAMM (CAD), BILAT Date of Exam: 03/07/18 Exam# [id number] Ordering Dr: Tootie Figueroa MD MAMMOGRAPHY - BILATERAL SCREENING REASON FOR EXAM: Female, 52 years old. Routine annual screening examination. PERTINENT HISTORY: NO FAM HX - BILAT IMPLANTS 2006 - CURRENT ESTADIOL X 8 MONTHS - [...] delay biopsy of a clinically suspicious abnormality. [id number] Electronically Signed: Angel Ramirez MD at 12:52 EDT Tel , Service support , CC: RIK GONZALEZ; Tootie Figueroa MD Train Attendant: Signed CHRISS Observed: 02/01/2018 Status: COMPLETED Source: [place] 12:00 AM CLINIC OTHER CAMPUS REPOSITORY Telephone (AGCARDPOB) NICKI DELACRUZ ([id number]) 1965 F NFR Date Time Provider Department [...] FOR* More... Rapid palpitations [R00.2] INVALID FOR* Aqozz-Afuzjdpew-Ousyr (WPW) syndrome [I45.6] INVALID FOR* Chest discomfort [R07.89] INVALID FOR*11/13/2015 Abnormal uterine bleeding [N93.9] INVALID FOR*09/02/2014 Anxiety [F41.9] INVALID FOR* Primary insomnia [F51.01] INVALID FOR* Stress incontinence in female [N39.3] INVALID FOR* Encounter for screening colonoscopy [Z12.11] INVALID FOR* Complex cyst of right ovary [N83.291] INVALID FOR* Biliary dyskinesia [K82.8] INVALID FOR* More... WPW (Fcbfn-Spzdzfknx-Bpows syndrome) [I45.6] Gastro-esophageal reflux disease without esopha*INVALID FOR* Chronic sinusitis, unspecified [J32.9] INVALID FOR* 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] INVALID FOR* Asymptomatic menopausal state [Z78.0] INVALID FOR* Anxiety disorder, unspecified [F41.9] INVALID FOR* Acquired absence of both cervix and uterus [Z90*INVALID FOR* Paroxysmal supraventricular tachycardia (HCC) [* Palpitations [R00.2] long term care pharmacist current use of antiarrhythmic drug [Z* More... Encounter Status:Closed by CAREN DE LEÓN on 02/01/18 CNPN Observed: 12/28/2017 Status: COMPLETED Source: [place] 12:00 AM CLINIC OTHER CAMPUS REPOSITORY Telephone (AGCARDPOB) NICKI DELACRUZ ([id number]) 1965 F NFR Date Time Provider Department [...] FOR* More... Rapid palpitations [R00.2] INVALID FOR* Qgviw-Scucnrhyv-Vthep (WPW) syndrome [I45.6] INVALID FOR* Chest discomfort [R07.89] INVALID FOR*11/13/2015 Abnormal uterine bleeding [N93.9] INVALID FOR*09/02/2014 Anxiety [F41.9] INVALID FOR* Primary insomnia [F51.01] INVALID FOR* Stress incontinence in female [N39.3] INVALID FOR* Encounter for screening colonoscopy [Z12.11] INVALID FOR* Complex cyst of right ovary [N83.291] INVALID FOR* Biliary dyskinesia [K82.8] INVALID FOR* More... WPW (Xjweu-Tagkixqng-Bomhx syndrome) [I45.6] Gastro-esophageal reflux disease without esopha*INVALID FOR* Chronic sinusitis, unspecified [J32.9] INVALID FOR* 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] INVALID FOR* Asymptomatic menopausal state [Z78.0] INVALID FOR* Anxiety disorder, unspecified [F41.9] INVALID FOR* Acquired absence of both cervix and uterus [Z90*INVALID FOR* Paroxysmal supraventricular tachycardia (HCC) [* Palpitations [R00.2] long term care pharmacist current use of antiarrhythmic drug [Z* More... Encounter Status:Closed by VENECIA RIVAS RN on 12/28/17 PROGRESS Observed: 12/27/2017 Status: COMPLETED Source: [place] 2:[address] [facility] REPOSITORY O ID: [id number] Author: Yamilet (Corporate Recruiter) NEVIN Foley.JESSICA Service: (none) Author Type: Nurse Practitioner Type: Progress Notes Filed: 12/27/2017 5:01 PM Note Text: Subjective The history is provided by the patient. No english as a second language instructor was used. TRAN Delacruz is a 52 year old female [...] (Attention Deficit Disorder) Insomnia, Unspecified Rapid Palpitations Mgoji-Xtfvhwgel-Bxvlc (Wpw) Syndrome Anxiety Primary Insomnia Stress Incontinence in Female Encounter for Screening Colonoscopy 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 Wpw (Lpynt-Iinhtrifn-Prnmi Syndrome) Gastro-Esophageal Reflux Disease Without Esophagitis Chronic Sinusitis, Unspecified Benign Neoplasm of Unspecified Ovary Asymptomatic Menopausal State Anxiety Disorder, Unspecified Acquired Absence of Both Cervix and Uterus Paroxysmal Supraventricular Tachycardia (Hcc) Palpitations Detention Current Use of Antiarrhythmic Drug Family History [...] children: 3 Occupational History Occupation Employer Comment [employer] Social History Main Topics Smoking status: Never [...] Neg neg Ketones, Urine Neg small Specific Rison, Ur 1.005 - 1.030 1.025 Hemoglobin/Blood,Ur Neg [...] Foley APRN.CNP Observed: 12/27/2017 Status: F Source: [place] URINE CULTURE 2:44 PM [facility] REPOSITORY Sp. Request/Comment: - Specimen received [...] <=0.5 F Performed By: #### URCUL #### [facility] [address] [place], [place] [address] CNOV Observed: 12/27/2017 Status: COMPLETED Source: [place] 2:00 PM [facility] REPOSITORY Office Visit (UCWSTR) NICKI DELACRUZ ([id number]) 1965 F NFR Date Time Provider Department 12/27/17 2:00 PM YAMILET FOLEY (ORTHOPHOTOGRAPHY TECHNICIAN) UCWSTR During your visit today, we recorded the following information about you: Temperature Pulse Respiration Blood pressure 98.4 degrees 78/minute 16/minute 110/72 Weight 64.4 kg Yamilet Foley APRN.CNP, APRN.CNP 12/27/2017 5:01 PM Signed Subjective The history is provided by the patient. No english as a second language instructor was used. HPI Nicki Delacruz is a [...] (Attention Deficit Disorder) Insomnia, Unspecified Rapid Palpitations Jffxl-Rgxqsmjin-Bauaj (Wpw) Syndrome Anxiety Primary Insomnia Stress Incontinence in Female Encounter for Screening Colonoscopy 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 Wpw (Ypfnp-Wwithmrkg-Ucwii Syndrome) Gastro-Esophageal Reflux Disease Without Esophagitis Chronic Sinusitis, Unspecified Benign Neoplasm of Unspecified Ovary Asymptomatic Menopausal State Anxiety Disorder, Unspecified Acquired Absence of Both Cervix and Uterus Paroxysmal Supraventricular Tachycardia (Hcc) Palpitations Detention Current Use of Antiarrhythmic Drug Family History [...] children: 3 Occupational History Occupation Employer Comment [employer] Social History Main Topics Smoking status: Never [...] Neg neg Ketones, Urine Neg small Specific Rison, Ur 1.005 - 1.030 1.025 Hemoglobin/Blood,Ur Neg [...] discussed in detail warranting prompt ER evaluation. SHANI Chou APRN.SHANI WATKINS 12/27/2017 2:48 PM Signed ASSESSMENT/PLAN: [...] condition not demonstrated [Z71.1] Order(s):UA DIP B/O [[id number]] Order #: [id number] URINE CULTURE [SQURCUL] Order #: [id number] nitrofurantoin monohydrate and macrocrystal (MACROBID) 100 mg [...] FOR* More... Rapid palpitations [R00.2] INVALID FOR* Yvlmh-Poonshnkl-Jyegk (WPW) syndrome [I45.6] INVALID FOR* Chest discomfort [R07.89] INVALID FOR*11/13/2015 Abnormal uterine bleeding [N93.9] INVALID FOR*09/02/2014 Anxiety [F41.9] INVALID FOR* Primary insomnia [F51.01] INVALID FOR* Stress incontinence in female [N39.3] INVALID FOR* Encounter for screening colonoscopy [Z12.11] INVALID FOR* Complex cyst of right ovary [N83.291] INVALID FOR* Biliary dyskinesia [K82.8] INVALID FOR* More... WPW (Ugkyh-Cpbraxaen-Ngotu syndrome) [I45.6] Gastro-esophageal reflux disease without esopha*INVALID FOR* Chronic sinusitis, unspecified [J32.9] INVALID FOR* 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] INVALID FOR* Asymptomatic menopausal state [Z78.0] INVALID FOR* Anxiety disorder, unspecified [F41.9] INVALID FOR* Acquired absence of both cervix and uterus [Z90*INVALID FOR* Paroxysmal supraventricular tachycardia (HCC) [* Palpitations [R00.2] long term care pharmacist current use of antiarrhythmic drug [Z* More... [...] HISTORY PHYSICAL Observed: 12/21/2017 Status: COMPLETED Source: [place] 7:31 PM CLINIC OTHER CAMPUS REPOSITORY [facility] ID: [id number] Author: Albina Luong Service: (none) Author Type: Physician Type: HANDP Filed: 12/21/2017 7:31 PM Note Text: PRIMARY CARE PHYSICIAN: Andrew Gonzalez MD [address] [address] REFERRING PHYSICIAN: Andrew Gonzalez MD [address] [address] Patient Care Team: Andrew Gonzalez as PCP - General (Family Practice) Albina Luong as Specialty Metal Drill Operator (Cardiology) CHIEF COMPLAINT: Evaluation for arrhythmia HISTORY [...] was referred to Dr. Mcknight at the [facility]. Her brother has WPW syndrome and [...] device 08/30/2007 Mirena, removed March 10 - shelter current use of antiarrhythmic drug flecainide; indication: symptomatic PSVT with WPW syndrome - Other anxiety states - Palpitations - Paroxysmal supraventricular tachycardia (HCC) - Stress incontinence, female - Unspecified asthma(493.90) - WPW (Udyiy-Pmfyxqswq-Ypspm syndrome) associated with symptomatic SVT; attempt at catheter ablation 11/2016 failed; she continues to experience intermittent palpitations and tachycardia despite treatment with flecainide PAST SURGICAL HISTORY Procedure Laterality Date - BLADDER SURGERY HX 11/2015 bladder sling - DELIVERY ONLY 85, 88,92 , low cervical X3 - ENLARGE BREAST WITH IMPLANT 11/2007 Breast augmentation - IUD INSERTION ([employer] DEPT)_*[place] 08/30/2007 Mirena - removed - OOPHORECTOMY, PART/TOTAL UNILAT/BILAT 2017 - REMOVE TONSILS/ADENOIDS,<12 Y/O 1968 - S PK LAVH [id number] 2013 lavh RICKY biltareal salpingectomy - SVT ABLATION W/ EP COMPLETE 11/24/2016 [facility], Dr. Mcknight; anteroseptal AP unable to [...] personally reviewed the Electrocardiogram. ASSESSMENT/PLAN: 1. WPW (Qtkcg-Ntfvbuqto-Vsmli syndrome) - ICD9: 426.7, ICD10: I45.6 Symptomatic; [...] helpful to correlate arrhythmia with symptoms 4. shelter current use of antiarrhythmic drug - ICD9: [...] the brief episodes of palpitation are likely freight representative of ectopic beats, but the longer episodes of palpitation with tachycardia are potentially recurrence of SVT. I had a detailed discussion with Ms. Delacruz regarding her arrhythmia condition and WPW syndrome. I reviewed the EP study and catheter ablation attempt procedure report from [facility] dated November 24, 2016. It appears [...] abandoned due to the proximity to the flandreau conduction system. She was then treated with [...] is risk of irreversible damage to the flandreau AV conduction system with additional attempts at catheter ablation, but that this risk could be kept to a minimum and still considered reasonably low overall. The procedure would require the use of computerized mapping and also potentially robotic catheter navigation. Cryoablation is an attractive type of catheter ablation in the region of the flandreau AV conduction system, however this has already [...] keeping her comfortable during the procedure in [place]. I had a detailed discussion with Ms. [...] 12/21/2017 PROGRESS Observed: 12/21/2017 Status: COMPLETED Source: [place] 6:43 PM CLINIC OTHER CAMPUS REPOSITORY [facility] ID: [id number] Author: Albina A Schweikert Service: (none) Author Type: Physician Type: Progress Notes Filed: 12/21/2017 7:31 PM Note Text: PRIMARY CARE PHYSICIAN: Andrew Gonzalez MD [place] [address] [address] REFERRING PHYSICIAN: Andrew Gonzalez MD [place] [id number] [address] Patient Care Team: Andrew Gonzlaez as PCP - General (Family Practice) Albina Luong as Specialty Metal Drill Operator (Cardiology) CHIEF COMPLAINT: Evaluation for arrhythmia HISTORY [...] was referred to Dr. Mcknight at the [facility]. Her brother has WPW syndrome and [...] device 08/30/2007 Mirena, removed March 10 - shelter current use of antiarrhythmic drug flecainide; indication: symptomatic PSVT with WPW syndrome - Other anxiety states - Palpitations - Paroxysmal supraventricular tachycardia (HCC) - Stress incontinence, female - Unspecified asthma(493.90) - WPW (Ldymv-Pkeglykxs-Behef syndrome) associated with symptomatic SVT; attempt at catheter ablation 11/2016 failed; she continues to experience intermittent palpitations and tachycardia despite treatment with flecainide PAST SURGICAL HISTORY Procedure Laterality Date - BLADDER SURGERY HX 11/2015 bladder sling - DELIVERY ONLY 85, 88,92 , low cervical X3 - ENLARGE BREAST WITH IMPLANT 11/2007 Breast augmentation - IUD INSERTION ([employer] DEPT)_*FL 08/30/2007 Mirena - removed - OOPHORECTOMY, PART/TOTAL UNILAT/BILAT 2016 - REMOVE TONSILS/ADENOIDS,<12 Y/O 1968 - S PK LAVH [id number] 2013 lavh RICKY biltareal salpingectomy - SVT ABLATION W/ EP COMPLETE 11/24/2016 [facility], Dr. Mcknight; anteroseptal AP unable to [...] personally reviewed the Electrocardiogram. ASSESSMENT/PLAN: 1. WPW (Nytas-Vduawogfw-Lzjdd syndrome) - ICD9: 426.7, ICD10: I45.6 Symptomatic; [...] helpful to correlate arrhythmia with symptoms 4. shelter current use of antiarrhythmic drug - ICD9: [...] the brief episodes of palpitation are likely freight representative of ectopic beats, but the longer episodes of palpitation with tachycardia are potentially recurrence of SVT. I had a detailed discussion with Ms. Delacruz regarding her arrhythmia condition and WPW syndrome. I reviewed the EP study and catheter ablation attempt procedure report from [facility] dated November 24, 2016. It appears [...] abandoned due to the proximity to the flandreau conduction system. She was then treated with [...] is risk of irreversible damage to the flandreau AV conduction system with additional attempts at catheter ablation, but that this risk could be kept to a minimum and still considered reasonably low overall. The procedure would require the use of computerized mapping and also potentially robotic catheter navigation. Cryoablation is an attractive type of catheter ablation in the region of the flandreau AV conduction system, however this has already [...] keeping her comfortable during the procedure in [place]. I had a detailed discussion with Ms. [...] 12/21/2017 CNOV Observed: 12/21/2017 Status: COMPLETED Source: [place] 1:30 PM CLINIC OTHER CAMPUS REPOSITORY Office Visit (AGCARDPHRA) NICKI DELACRUZ ([id number]) 1965 F NFR Date Time Provider Department [...] healthcare provider's instructions for treatment. Developed by [employer]. Published by [employer]. Copyright ?2014 [employer] and/or one of its subsidiaries. All rights reserved. Albina Luong MD 12/21/2017 7:31 PM Addendum PRIMARY CARE PHYSICIAN: Andrew Gonzalez MD [place] [address] [place] [address] REFERRING PHYSICIAN: Andrew Gonzalez MD [place] [address] [place] [address] Patient Care Team: Andrew Gonzalez as PCP - General (Family Practice) Albina Luong as Specialty Metal Drill Operator (Cardiology) CHIEF COMPLAINT: Evaluation for arrhythmia HISTORY [...] was referred to Dr. Mcknight at the [facility]. Her brother has WPW syndrome and [...] device 08/30/2007 Mirena, removed March 10 - long term care pharmacist current use of antiarrhythmic drug flecainide; indication: symptomatic PSVT with WPW syndrome - Other anxiety states - Palpitations - Paroxysmal supraventricular tachycardia (HCC) - Stress incontinence, female - Unspecified asthma(493.90) - WPW (Kgyow-Mnuszampx-Nvfqh syndrome) associated with symptomatic SVT; attempt at catheter ablation 11/2016 failed; she continues to experience intermittent palpitations and tachycardia despite treatment with flecainide PAST SURGICAL HISTORY Procedure Laterality Date - BLADDER SURGERY HX 11/2015 bladder sling - DELIVERY ONLY 85, 88,92 , low cervical X3 - ENLARGE BREAST WITH IMPLANT 11/2007 Breast augmentation - IUD INSERTION ([employer] SPECIALIST DEPT)_*FL 08/30/2007 Mirena - removed - OOPHORECTOMY, PART/TOTAL UNILAT/BILAT 2016 - REMOVE TONSILS/ADENOIDS,ANDlt;13 Y/O 1968 - S PK LAVH [id number] 2013 lavh RICKY biltareal salpingectomy - SVT ABLATION W/ EP COMPLETE 11/24/2016 [facility], Dr. Mcknight; anteroseptal AP unable to [...] personally reviewed the Electrocardiogram. ASSESSMENT/PLAN: 1. WPW (Hlzzf-Hajnurxpp-Dsfzw syndrome) - ICD9: 426.7, ICD10: I45.6 Symptomatic; [...] helpful to correlate arrhythmia with symptoms 4. shelter current use of antiarrhythmic drug - ICD9: [...] the brief episodes of palpitation are likely freight representative of ectopic beats, but the longer episodes of palpitation with tachycardia are potentially recurrence of SVT. I had a detailed discussion with Ms. Delacruz regarding her arrhythmia condition and WPW syndrome. I reviewed the EP study and catheter ablation attempt procedure report from [facility] dated November 24, 2016. It appears [...] abandoned due to the proximity to the flandreau conduction system. She was then treated with [...] is risk of irreversible damage to the flandreau AV conduction system with additional attempts at catheter ablation, but that this risk could be kept to a minimum and still considered reasonably low overall. The procedure would require the use of computerized mapping and also potentially robotic catheter navigation. Cryoablation is an attractive type of catheter ablation in the region of the flandreau AV conduction system, however this has already [...] keeping her comfortable during the procedure in [place]. I had a detailed discussion with Ms. [...] Signed PRIMARY CARE PHYSICIAN: [place] [address] REFERRING PHYSICIAN: Andrew Gonzalez MD [place] [address] Patient Care Team: Andrew Gonzalez as PCP - General (Family Practice) Albina Luong as Specialty Metal Drill Operator (Cardiology) CHIEF COMPLAINT: Evaluation for arrhythmia HISTORY [...] was referred to Dr. Mcknight at the [facility]. Her brother has WPW syndrome and [...] device 08/30/2007 Mirena, removed March 10 - long term care pharmacist current use of antiarrhythmic drug flecainide; indication: symptomatic PSVT with WPW syndrome - Other anxiety states - Palpitations - Paroxysmal supraventricular tachycardia (HCC) - Stress incontinence, female - Unspecified asthma(493.90) - WPW (Phuan-Nownegkvq-Nxclq syndrome) associated with symptomatic SVT; attempt at catheter ablation 11/2016 failed; she continues to experience intermittent palpitations and tachycardia despite treatment with flecainide PAST SURGICAL HISTORY Procedure Laterality Date - BLADDER SURGERY HX 11/2015 bladder sling - DELIVERY ONLY 85, 88,92 , low cervical X3 - ENLARGE BREAST WITH IMPLANT 11/2007 Breast augmentation - IUD INSERTION ([employer] SPECIALIST DEPT)_*[place] 08/30/2007 Mirena - removed - OOPHORECTOMY, PART/TOTAL UNILAT/BILAT 2016 - REMOVE TONSILS/ADENOIDS,ANDlt;13 Y/O 1968 - S PK LAVH [id number] 2013 lavh RICKY biltareal salpingectomy - SVT ABLATION W/ EP COMPLETE 11/24/2016 [facility], Dr. Mcknight; anteroseptal AP unable to [...] personally reviewed the Electrocardiogram. ASSESSMENT/PLAN: 1. WPW (Oezdz-Kpeeszlrc-Yyhgd syndrome) - ICD9: 426.7, ICD10: I45.6 Symptomatic; [...] helpful to correlate arrhythmia with symptoms 4. shelter current use of antiarrhythmic drug - ICD9: [...] the brief episodes of palpitation are likely freight representative of ectopic beats, but the longer episodes of palpitation with tachycardia are potentially recurrence of SVT. I had a detailed discussion with Ms. Delacruz regarding her arrhythmia condition and WPW syndrome. I reviewed the EP study and catheter ablation attempt procedure report from [facility] dated November 24, 2016. It appears [...] abandoned due to the proximity to the flandreau conduction system. She was then treated with [...] is risk of irreversible damage to the flandreau AV conduction system with additional attempts at catheter ablation, but that this risk could be kept to a minimum and still considered reasonably low overall. The procedure would require the use of computerized mapping and also potentially robotic catheter navigation. Cryoablation is an attractive type of catheter ablation in the region of the flandreau AV conduction system, however this has already [...] keeping her comfortable during the procedure in [place]. I had a detailed discussion with Ms. [...] Luong MD 12/21/2017 Referring Provider: ANDREW GONZALEZ [[id number]] Allergies As of Date: 12/21/2017 Noted Allergy [...] Reason for Visit: CARD New Patient Consult [4778] Visit Diagnoses:WPW (Ibkmk-Esyejfrpn-Zkxly syndrome) [I45.6] Paroxysmal supraventricular tachycardia (HCC) [I47.1] Palpitations [R00.2] long term care pharmacist current use of antiarrhythmic drug [Z79.899] Ovulation pain [N94.0] Order(s):EKG WITH INTERPRETATION [74398VVZ] Order #: [id number]: 1 SURGICAL REQUEST - ELECTIVE [[id number]] Order #: [id number]: 1 flecainide (TAMBOCOR) 50 mg tabletTake 1.5 [...] FOR* More... Rapid palpitations [R00.2] INVALID FOR* Qxeum-Sufrtprrm-Qlxnu (WPW) syndrome [I45.6] INVALID FOR* Chest discomfort [R07.89] INVALID FOR*11/13/2015 Abnormal uterine bleeding [N93.9] INVALID FOR*09/02/2014 Anxiety [F41.9] INVALID FOR* Primary insomnia [F51.01] INVALID FOR* Stress incontinence in female [N39.3] INVALID FOR* Encounter for screening colonoscopy [Z12.11] INVALID FOR* Complex cyst of right ovary [N83.291] INVALID FOR* Biliary dyskinesia [K82.8] INVALID FOR* More... 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 [...] healthcare provider's instructions for treatment. Developed by [employer]. Published by [employer]. Copyright ?2014 [employer] and/or one of its subsidiaries. All rights reserved. Visit Notes: >> Martha Whitaker TueDec 21, 2017 1:45 PM Status: Signed Ms. [...] 12/21/17 HOSP Observed: 12/21/2017 Status: COMPLETED Source: [place] 12:00 AM CLINIC OTHER CAMPUS REPOSITORY Patient:Nicki Delacruz MRN: <[id number]> Height:5' 2(1.575 m) Weight:140 lb 9.6 oz [...] right ovary [N83.291] Biliary dyskinesia [K82.8] WPW (Dhusc-Iesjwivdv-Mpjjs syndrome) [I45.6] Gastro-esophageal reflux disease without esophagitis [K21.9] Chronic sinusitis, unspecified [J32.9] 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] Asymptomatic menopausal state [Z78.0] Anxiety disorder, unspecified [F41.9] Acquired absence of both cervix and uterus [Z90.710] Paroxysmal supraventricular tachycardia (HCC) [I47.1] Palpitations [R00.2] shelter current use of antiarrhythmic drug [Z79.899] Allergies: Citalopram Dust Liquid Bandage [Enbucrilate] Mold Pneumovax 23 [Pneumococcal 23-Dawit Ps Vaccine] Pollen Propranolol Smoke Tetracycline Date Verified: 03/28/18 Lab Values Lab Value Units Date High Low POTA* 3.7 mEq/L 03/28/2018 5.1 3.5 TOMMY* 38.8 % 03/28/2018 44.9 34.1 Progress Notes ([facility]): Echo Baez CMA 03/23/2018 3:50 PM Signed Patient denies any cardiac complaints today. KANDI Marmolejo APRN.ORTHOPHOTOGRAPHY TECHNICIAN 03/23/2018 5:29 PM Signed Subjective HPI Mrs. [...] was referred to Dr. Mcknight at the [facility]. Her brother has a history of [...] discussed and reviewed the records available in [facility]. He reviewed the treatment options available one option would be to increase the flecainide dosing. This would be a short-term strategy. A longer-term strategy would be to try to repeat catheter ablation. Patient prefers to undergo a catheter ablation procedure which is scheduled for March 28 at [facility]. Procedure will be under general anesthesia. 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; attempt at catheter ablation 11/2016 failed; she continues to experience intermittent palpitations and tachycardia despite treatment with flecainide PAST SURGICAL HISTORY Procedure Laterality Date - BLADDER SURGERY HX 11/2015 bladder sling - DELIVERY ONLY 85, 88,92 , low cervical X3 - ENLARGE BREAST WITH IMPLANT 11/2007 Breast augmentation - IUD INSERTION ([employer] SPECIALIST DEPT)_*FL 08/30/2007 Mirena - removed - OOPHORECTOMY, PART/TOTAL UNILAT/BILAT 2016 - REMOVE TONSILS/ADENOIDS,<12 Y/O 1968 - S PK LAVH [id number] 2013 lavh RICKY biltareal salpingectomy - SVT ABLATION W/ EP COMPLETE 11/24/2016 [facility], Dr. Mcknight; right midseptal AP unable [...] with an ablation on March 28 at [facility]. She was instructed that she does need a laundry route driver to and from the hospital. She'll receive a call the night before from the heart and vascular Center instructing her on time of arrival. She will be NPO from midnight the day before. Follow-up appointment will be determined after the procedure and at the time of discharge. Progress Notes ([facility]): Kassie Muñoz RN 03/14/2018 8:33 PM Signed Message from [employer]: Nicki Delacruz would like a refill of the following medications: traZODone (DESYREL) 50 mg tablet [Andrew Gonzalez MD] Preferred pharmacy: [address] [address] - [address] [facility] [phone] Comment: Kassie Muñoz RN 03/14/2018 8:34 PM [...] RN PROGRESS Observed: 12/01/2017 Status: COMPLETED Source: [place] 6:01 PM [facility] REPOSITORY HNO ID: [id number] Author: Dulce Hoover Service: (none) Author Type: [...] MD CNOV Observed: 12/01/2017 Status: COMPLETED Source: [place] 11:15 AM [facility] REPOSITORY Office Visit (GENE) NICKI DELACRUZ ([id number]) 1965 F NFR Date Time Provider Department [...] Dulce Hoover MD Referring Provider: DULCE HOOVER [[id number]] Allergies As of Date: 12/01/2017 Noted Allergy [...] FOR* More... Rapid palpitations [R00.2] INVALID FOR* Wrrpk-Ktxfmhwxb-Zansz (WPW) syndrome [I45.6] INVALID FOR* Chest discomfort [...] 12/01/17 PROGRESS Observed: 11/28/2017 Status: COMPLETED Source: [place] 3:[address] [facility] MAIN D [place] REPOSITORY O ID: [id number] Author: Сергей Ayoub Service: (none) Author Type: [...] in palpitations. Advised to discuss with her packer operator automatic. Сергей Ayoub MD PROGRESS Observed: 11/22/2017 Status: COMPLETED Source: [place] 2:56 PM CLINIC MAIN CAMPUS REPOSITORY HNO ID: [id number] Author: Radha Acevedo Service: (none) Author Type: [...] Grandmother - Cancer Paternal Grandfather PROSTATE CANCER, [place] - Asthma Son - Asthma Daughter - Seizures Brother wpw PAST MEDICAL HISTORY Diagnosis Date - Allergic rhinitis due to other allergen - Encounter for insertion or removal of intrauterine contraceptive device 08/30/2007 Mirena, removed March 10 - Other anxiety states - Stress incontinence, female - Unspecified asthma(493.90) - WPW (Gfxjr-Xemmowmuk-Yftbt syndrome) PAST SURGICAL HISTORY Procedure Laterality Date - DELIVERY ONLY 85, 88,92 , low cervical X3 - ENLARGE BREAST WITH IMPLANT 11/2007 Breast augmentation - IUD INSERTION ([employer] SALES SPECIALIST DEPT)_*FL 08/30/2007 Mirena - removed - OOPHORECTOMY, PART/TOTAL UNILAT/BILAT 2016 - PAST SURGICAL HISTORY OF 11/2015 bladder sling - REMOVE TONSILS/ADENOIDS,<12 Y/O 1968 - S PK LAVH [id number] 2013 lavh RICKY biltareal salpingectomy - SVT ABLATION W/ EP COMPLETE 11/24/2016 Social History Marital status: Spouse name: Years of education: 15 Number of children: 3 Occupational History Occupation Employer Comment [employer]) Social History Main Topics Smoking status: Never [...] No history of dysuria, frequency or incontinence SOLAR ENERGY SALES SPECIALIST: Negative for abnormal vaginal bleeding, abnormal vaginal [...] DISCHARGE INSTRUCTION Observed: 11/20/2017 Status: F Source: [place] 4:46 PM [facility] REPOSITORY [facility] Medical Records Department [address] [place] [address] Discharge Instruction 11/20/171644 MR#: [id number] Acct: [id number] Name: NICKI DELACRUZ Rep #: [id number] : 1965 52 From: Jaida Siu PCP: [...] your Primary Care Provider. Call [facility] ([phone]) or report to the closest Emergency Room. Call 911 if necessary. 11/20/176 <Electronically signed by Jaida Siu > Date Jaida Siu Cosigner Signature (If Indicated): Date CC: RIK GONZALEZ DISCHARGE INSTRUCTION Observed: 11/20/2017 Status: F Source: [place] 4:33 PM [facility] REPOSITORY [facility] Medical Records Department [address] [place] [address] Discharge Instruction 11/20/17 1631 MR#: [id number] Acct: [id number] Name: NICKI DELACRUZ Rep #: [id number] : 1965 52 From: Jaida Siu PCP: [...] your Primary Care Provider. Call [facility] ([phone]) or report to the closest Emergency Room. Call 911 if necessary. 11/20/17 1633 <Electronically signed by Jaida Siu > Date Jaida Siu Cosigner Signature (If Indicated): Date CC: RIK GONZALEZ EMERGENCY DEPARTMENT Observed: 11/20/2017 Status: F Source: [place] SUMMARY 4:31 PM [facility] REPOSITORY [facility] Medical Records Department [address] [place] [address] Emergency Department Summary 11/20/17 1320 MR#: [id number] Acct: [id number] Name: NICKI DELACRUZ Rep #: [id number] : 1965 52 From: Jaida Siu PCP: RIK GONZALEZ Status: REG ER - ER Visit Summary Date of Service: 11/20/17 Chief Complaint: [Right flank pain] History of Present Illness: The patient is a 52 F [presents to the emergency department with flank pain she had a cholecystectomy on Tuesday at [facility]. She was doing well but since Tuesday [...] Skin reaction] This note was generated with [employer] dictation software. It may contain incorrect words, [...] your Primary Care Provider. Call [facility] ([phone]) or report to the closest Emergency Room. Call 911 if necessary. 11/20/17 1631 <Electronically signed by Jaida Siu > Date Jaida Siu Cosigner Signature (If Indicated): Date CC: RIK GONZALEZ CBC W/DIFF, AUTOMATED Collected: 11/20/2017 Status: F Source: [place] 1:35 PM [facility] REPOSITORY TYPE CODE TESTS RESULT OUT OF [...] Lymph 1.83 Performed By: #### L100.0100 #### [facility] [address] [place], [place], [address] COMPREHENSIVE METABOLIC Collected: 11/20/2017 Status: F Source: [facility] 1:35 PM [facility] REPOSITORY TYPE CODE TESTS RESULT OUT OF [...] 4 Performed By: #### L500.4050, L501.2450 #### [facility] [address] [place], [address] LIPASE Collected: 11/20/2017 Status: F Source: [place] 1:35 PM [facility] REPOSITORY TYPE CODE TESTS RESULT OUT OF RANGE REFERENCE UNITS LAB L501.2450 73-393 U/L Normal LIPASE 79 Performed By: #### L500.4050, L501.2450 #### [facility] [address] [place], [address] URINALYSIS, COMPLETE Collected: 11/20/2017 Status: F Source: [place] 1:30 PM [facility] REPOSITORY Order Comment: Order Date: 11/20/17 How [...] URINE SEEN Performed By: #### L400.0001 #### [facility] [address] [facility] [place], [address] ABDOMEN/PELVIS W IV CONT Observed: 11/20/2017 Status: F Source: [facility] 1:16 PM [facility] REPOSITORY [facility] Imaging Services [address] [place] [address] Abdomen/Pelvis W IV Cont ONLY MR#: [id number] Acct: [id number] Name: NICKI DELACRUZ Rep #: [id number] : 1965 F 52 From: Georgina Edward MD PCP: RIK GONZALEZ Status: REG ER Study: Abdomen/Pelvis W IV Cont ONLY Date of Exam: 11/20/17 Exam# [id number] Ordering Dr: Jaida Siu CT Abdomen And [...] support , CC: Jaida Siu; RIK GONZALEZ Train Attendant: Signed CTA CHEST W/WO Observed: 11/20/2017 Status: F Source: [place] CONTRAST 1:16 PM [facility] REPOSITORY [facility] Imaging Services [address] [place] [address] CTA Chest W/WO Contrast MR#: [id number] Acct: [id number] Name: NICKI DELACRUZ Rep #: [id number] : 1965 F 52 From: Georgina Edward MD PCP: RIK GONZALEZ Status: REG ER Study: CTA Chest W/WO Contrast Date of Exam: 11/20/17 Exam# [id number] Ordering Dr: Jaida Siu CTA Chest WO/W [...] support , CC: Jaida Siu; RIK GONZALEZ Train Attendant: Signed PROGRESS Observed: 11/20/2017 Status: COMPLETED Source: [place] 11:44 AM [facility] REPOSITORY HNO ID: [id number] Author: Amira Fairbanks Service: (none) Author Type: Nurse Practitioner Type: Progress Notes Filed: 11/20/2017 11:47 AM Note Text: Patient had lap aretha on 11/16, reports RUQ abdominal pain and possible infected lap sites. She had called in to surgeon's office on 11/18 with these complaints, see phone encounter in [facility]. Patient was advised by surgeon to [...] JESSICA Park Observed: 11/18/2017 Status: COMPLETED Source: [place] 12:00 AM [facility] REPOSITORY Telephone (GENAries CoveJose J) NICKI DELACRUZ ([id number]) 1965 F NFR Date Time Provider Department [...] requesting a return call from our office. [phone] (home) [phone] (work) [phone] (cell) Grecia Boykin RN 11/18/2017 1:27 PM Signed Spoke with DR Landaverde and patient is advised to go to ER for evaluation and to rule out bile leak. Patient plans to go to [facility] when her ride is avialable in [...] Patient telephone call. She had gone to [facility] and they ruled out bile leak. C/O redness around incision like a rash. She went to [facility] ER and doctor prescribed an antibiotic and [...] FOR* More... Rapid palpitations [R00.2] INVALID FOR* Rajsn-Tywrvbqfb-Nxkbh (WPW) syndrome [I45.6] INVALID FOR* Chest discomfort [...] PT ED Observed: 11/16/2017 Status: COMPLETED Source: [place] 3:48 PM CLINIC OTHER CAMPUS REPOSITORY HNO ID: [id number] Author: Dasia (Rn) VINCENT Perry Service: Nursing [...] Signed By: Dasia Perry RN In Department: [facility] SURGERYPATIENT EDUCATION TOPIC: PROCEDURE / SURGERY: Post-op Teaching: Med Administration PATIENT NAME: Nicki Delacruz PATIENT LOCATION: [facility] READINESS TO LEARN COGNITIVE ABILITY: Alert [...] [place] POST Observed: 11/16/2017 Status: COMPLETED Source: [place] 3:[address] [facility] OTHER D [place] REPOSITORY HNO ID: [id number] Author: Jerson Wing Service: Anesthesiology Author Type: [...] 16, 2017 TIME: 5:03 PM PAGER/CONTACT #: [phone] PLAN OF CARE Observed: 11/16/2017 Status: COMPLETED Source: [place] 1:38 PM [facility] REPOSITORY HNO ID: [id number] Author: Ana Maria Chinchilla (Studio Data Analyst) Service: (none) Author Type: (none) Type: Plan of Care Filed: 11/16/2017 1:39 PM Note Text: BEAN SNAPPER BEDSIDE DELIVERY SURVEY 1. Patient to use [facility] Bedside Delivery - YES 2. If fax, patient would like us to fax prescriptions to Pharmacy of choice a. Pharmacy: b. Location: c. Phone: 3. Insurance card on file - YES 4. Credit card for payment - YES No prescriptions yet. Please page [phone] upon discharge. PHARMACY BEDSIDE DELIVERY SERVICE Patient Name: Nicki Delacruz The marked outpatient medications were Filled at: [facility] and delivered to the patient's bedside to PHARMACY PROFESSOR OF ENVIRONMENTAL STUDIES Medication List START taking these medications X [...] by mouth once daily. Ana Maria Chinchilla (Studio Data Analyst) PAGER: [phone] November 16, 2017 1:38 PM SURGICAL PATHOLOGY Observed: 11/16/2017 Status: F Source: [place] 1:[address] [facility] OTHER CAMPUS REPOSITORY Specimen originated from [facility] Specimen #: [id number] Submitting Physician: Dulce Hoover M.D. FINAL DIAGNOSIS [...] of the mucosa. No calculi are present. Ndt Inspector sections are submitted in formalin in cassette A1. LAMONT/glw 11/16/2017 Gross examination performed at [facility], [address] [place] [address] Date of Report: 11/18/2017 Date of Procedure: 11/16/2017 Date of Receipt: 11/16/2017 Submitted by: Dulce Hoover M.D. Location: [facility] Diagnostic interpretation performed at [facility], [address] [place] [address]. Performed By: #### PATHS #### [place] [address] [phone] BRIEF OP NOT Observed: 11/16/2017 Status: COMPLETED Source: [place] 1:00 PM CLINIC OTHER CAMPUS REPOSITORY HNO ID: [id number] Author: Dulce Hoover Service: General Surgery Author Type: Physician Type: Brief Op Note Filed: 11/16/2017 1:11 PM Note Text: BRIEF OPERATIVE / PROCEDURE NOTE LOG ID: [id number] Surgery/Procedure Date: 11/16/2017 Incision/Procedure Start Time: 12:29 PM Incision Close/Procedure End Time: 1:04 PM Surgeon(s)/Proceduralist(s) and Physician/Allergy/Immunology(s): Surgeon(s) and Role: * Dulce Hoover - Primary Physician Physician/Allergy/Immunology: Judy Ross Procedure(s): lap aretha w/ ioc Anesthesia: General Findings: see report Estimated Blood Loss: min Specimens: 1 Complications: None Pre-Op/Pre-Procedure Diagnosis: biliary dyskinesia Post-Op/Post-Procedure Diagnosis: same # [id number] SIGNATURE: Dulce Hoover MD PATIENT NAME: Nicki Delacruz DATE: November 16, 2017 TIME: 1:00 PM PAGER/CONTACT #: [phone] CHOLANGIOGRAM INTRAOP Observed: 11/16/2017 Status: F Source: [place] 12:41 PM [facility] REPOSITORY * * *Final Report* * [...] drains freely into the duodenum. IMPRESSION: Negative Train Attendant: KLARISSA Transcribe Date/Time: Nov 16 2017 1:51P Dictated by : NAYE WEISS MD This examination was interpreted and the report reviewed and electronically signed by: NAYE WEISS MD on Nov 16 2017 1:58PM EST [id number] [id number] PREOP Observed: 11/16/2017 Status: COMPLETED Source: [place] 11:16 AM [facility] REPOSITORY HNO ID: [id number] Author: Jerson Wing Service: Anesthesiology Author Type: Anesthesiologist Type: Anesthesia PreOp Filed: 11/16/2017 11:17 AM Note Text: ANESTHESIOLOGY DAY OF SURGERY NOTE SERVICE DATE: 11/16/2017 SERVICE TIME: 11:16 AM : 1965 Procedure(s) (LRB): LAPAROSCOPIC CHOLECYSTECTOMY WITH GRAMS (N/A) Surgeon(s): Dulce Hoover Estimated body mass index is 27.62 [...] (Attention Deficit Disorder) Insomnia, Unspecified Rapid Palpitations Qquse-Fgomimomd-Pdsdk (Wpw) Syndrome Anxiety Primary Insomnia Stress Incontinence in Female Encounter for Screening Colonoscopy 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 PAST MEDICAL HISTORY Diagnosis Date - Allergic rhinitis due to other allergen - Encounter for insertion or removal of intrauterine contraceptive device 08/30/2007 Mirena, removed March 10 - Other anxiety states - Stress incontinence, female - Unspecified asthma(493.90) - WPW (Gsqjm-Rckpsqdkv-Xdqth syndrome) PAST SURGICAL HISTORY Procedure Laterality Date - DELIVERY ONLY 85, 88,92 , low cervical X3 - ENLARGE BREAST WITH IMPLANT 11/2007 Breast augmentation - IUD INSERTION ([employer] SALES SPECIALIST DEPT)_*[place] 08/30/2007 Mirena - removed - OOPHORECTOMY, PART/TOTAL UNILAT/BILAT 2016 - PAST SURGICAL HISTORY OF 11/2015 bladder sling - REMOVE TONSILS/ADENOIDS,<12 Y/O 1968 - S PK LAVH [id number] 2013 lavh RICKY biltareal salpingectomy - SVT ABLATION W/ EP COMPLETE 11/24/2016 FAMILY HISTORY Problem Relation Age of Onset - Asthma Father - Emphysema Paternal Grandmother - Seizures Paternal Grandmother - Cancer Paternal Grandfather PROSTATE CANCER, [place] - Asthma Son - Asthma Daughter - [...] ringers infusion 5-30 mL/hr INTRAVENOUS CONTINUOUS Radha (Corporate Recruiter) Kristina Last Rate: 30 mL/hr at 11/16/17 [...] November 16, 2017 TIME: 11:16 AM CSN: [id number] OPERATIVE NO Observed: 11/16/2017 Status: COMPLETED Source: [place] 12:00 AM CLINIC OTHER CAMPUS REPOSITORY O ID: [id number] Author: Dulce Hoover Service: General Surgery Author Type: Physician Type: Operative Report Filed: 11/19/2017 11:13 AM Note Text: [facility]- Operative Report NICKI DELACRUZ : 1965 AGE: 52 SEX: F ACCTNUM: [id number] [facility]: [facility] LOCATION: [facility] ATTENDING PHYSICIAN: Dulce Hoover M.D. DATE OF PROCEDURE: 11/16/2017 SURGEON: Dulce Hoover M.D. ACCOUNTS PAYABLE ADMINISTRATOR: Judy Ross (robert). ANESTHESIA: General. PREOPERATIVE DIAGNOSIS(ES): [...] good condition. Dulce Hoover M.D. General Surgery KED:[id number] /[id number] NURSING PROG Observed: 11/10/2017 Status: COMPLETED Source: [place] 12:06 PM CLINIC OTHER CAMPUS REPOSITORY HNO ID: [id number] Author: Paul (Rn) VINCENT Erazo Service: (none) [...] AND DIFFERENTIAL Collected: 11/09/2017 Status: F Source: [place] 2:[address] [facility] MAIN CAMPUS REPOSITORY TYPE CODE TESTS RESULT OUT OF [...] k/uL Abs Lymph 3.02 LAB AMONO % Kingfisher% 8.0 LAB AAMONO <0.87 k/uL Abs Kingfisher 0.64 LAB AEOS % Eosin% 0.9 LAB AAEOS <0.46 k/uL Abs Eosin 0.07 LAB ABASO % Baso% 0.5 LAB AABASO <0.11 k/uL Abs Baso 0.04 LAB AUNRBC 0 /100 WBC NRBCs 0.0 LAB ABNRBC <0.01 k/uL Absolute nRBC <0.01 LAB DTYP DTYPE Auto Diff Performed By: #### CBCDIF, CMP #### [facility] [address] [place] [id number] COMP METABOLIC PANEL Collected: 11/09/2017 Status: F Source: [place] 2:[address] [facility] [place] REPOSITORY TYPE CODE TESTS RESULT OUT OF REFERENCE UNITS RANGE LAB TP 6.3-8.0 g/dL Protein, Total 7.5 LAB ALB 3.9-4.9 g/dL Albumin 4.8 LAB CA 8.5-10.2 mg/dL Calcium, Total 10.2 LAB TBIL 0.2-1.3 mg/dL Bilirubin, Total 0.2 LAB ALKP 32-117 U/L Alkaline Phosphatase 57 LAB AST 13-35 U/L AST 20 LAB GLU 74-99 mg/dL Low Glucose 68 Result Comment: The [place] Diabetes Association (ADA) provides guidance for cutoff [...] Standards of Medical Care in Diabetes 2016, [place] Diabetes Association. Diabetes Care. 2016.39(Suppl 1). LAB [...] GFR. Performed By: #### CBCDIF, CMP #### [facility] [address] [place], [place] [address] HISTORY PHYSICAL Observed: 11/09/2017 Status: COMPLETED Source: [place] 1:52 PM CLINIC OTHER CAMPUS REPOSITORY HNO ID: [id number] Author: Rosalie Mcmullen) [place] Service: (none) Author Type: Physician Physician/Allergy/Immunology Type: HANDP Filed: 11/09/2017 2:56 PM Note [...] (Attention Deficit Disorder) Insomnia, Unspecified Rapid Palpitations Qogki-Vfzihrvpd-Tieyh (Wpw) Syndrome Anxiety Primary Insomnia Stress Incontinence [...] incontinence, female - Unspecified asthma(493.90) - WPW (Ymjtq-Ylajtyfxk-Igesl syndrome) PAST SURGICAL HISTORY Procedure Laterality Date - DELIVERY ONLY 85, 88,92 , low cervical X3 - ENLARGE BREAST WITH IMPLANT 11/2007 Breast augmentation - IUD INSERTION (SOLAR ENERGY SALES SPECIALIST DEPT)_*FL 08/30/2007 Mirena - removed - PAST SURGICAL HISTORY OF 11/2015 bladder sling - REMOVE TONSILS/ADENOIDS,<12 Y/O 1968 - S PK LAVH [id number] 2013 lavh RICKY biltareal salpingectomy - SVT ABLATION W/ EP COMPLETE FAMILY HISTORY Problem Relation Age of Onset - Asthma Father - Emphysema Paternal Grandmother - Seizures Paternal Grandmother - Cancer Paternal Grandfather PROSTATE CANCER, [place] - Asthma Son - Asthma Daughter - Seizures Brother wpw SOCIAL HISTORY: Social History Marital status: Spouse name: Years of education: 15 Number of children: 3 Occupational History Occupation Employer Comment [employer] Social History Main Topics Smoking status: Never [...] fevers. Neuro: No history of TIA's, stroke, ACTIVATED SLUDGE ATTENDANT tumor, impaired sensorium, hemiplegia, paraplegia or quadraplegia. No neurological symptoms or problems. Respiratory: Positive for Asthma, mild intermittent- flares in summer months, Negative for COPD, Home O2, Tobacco Use, URI < 2 weeks Cardiovascular: Positive for: WPW syndrome and ablation attempted and failed in 11/2016. + palpitations and occasional tachycardia and bradycardia. , Negative for Recent [place], Chest Pain, Valvular Heart Disease, DVT/PE GI: No history of GI symptoms or problems. No history of esophageal varices, recent ascites, or ETOH greater than 2 drinks per day. : No history of dysuria, frequency or incontinence,, stones or chronic kidney disease SOLAR ENERGY SALES SPECIALIST: Negative for abnormal vaginal bleeding, abnormal vaginal [...] CBC + DIFF COMP METABOLIC PANEL estradiol (NOBLE, VIVELLE-DOT) 0.025 mg/24 hr Si Patch every Tuesday and Tuesday. Planned Anesthetic: General Instructions Given to Patient: Patient given verbal and written preop instructions and voices comprehension and compliance. SIGNATURE: Rosalie Franklin PA-C PATIENT NAME: Nicki Delacruz DATE: November 09, 2017 TIME: 1:52 PM PAGER/CONTACT #: PROGRESS Observed: 11/02/2017 Status: COMPLETED Source: [place] 8:45 AM [facility] REPOSITORY O ID: [id number] Author: Dulce Hoover Service: (none) Author Type: [...] incontinence, female - Unspecified asthma(493.90) - WPW (Uyjve-Yqqpwxuwb-Feoci syndrome) PAST SURGICAL HISTORY Procedure Laterality Date - DELIVERY ONLY 85, 88,92 , low cervical X3 - ENLARGE BREAST WITH IMPLANT 11/2007 Breast augmentation - IUD INSERTION (SOLAR ENERGY SALES SPECIALIST DEPT)_*FL 08/30/2007 Mirena - removed - PAST SURGICAL HISTORY OF 11/2015 bladder sling - REMOVE TONSILS/ADENOIDS,<12 Y/O 1968 - S PK LAVH [id number] 2013 lavh RICKY biltareal salpingectomy - SVT [...] Grandmother - Cancer Paternal Grandfather PROSTATE CANCER, [place] - Asthma Son - Asthma Daughter - Seizures Brother wpw Social History Marital status: Spouse name: Years of education: 15 Number of children: 3 Occupational History Occupation Employer Comment [employer] Social History Main Topics Smoking status: Never [...] MD PROGRESS Observed: 11/01/2017 Status: COMPLETED Source: [place] 2:[address] [facility] D [place] REPOSITORY [facility] ID: [id number] Author: Rika Parada LPN Service: (none) Author [...] of dysuria, frequency or incontinence. ENDOCRINE: None SOLAR ENERGY SALES SPECIALIST:Denies any concerns SOLAR ENERGY SALES SPECIALIST: Age of first period: 17 Number of [...] tendancy CNOV Observed: 11/01/2017 Status: COMPLETED Source: [place] 2:00 PM [facility] REPOSITORY Office Visit (CANDIDO) NICKI DELACRUZ ([id number]) 1965 F NFR Date Time Provider Department 11/01/17 2:00 PM DULCE HOOVER During your visit today, we recorded the following information about you: Pulse Blood pressure Weight Height 80/minute 167/91 65.8 kg 1.575 m Rika Parada PLACEMENT SPECIALIST 11/03/2017 8:52 AM Signed GENERAL:No weight loss, [...] of dysuria, frequency or incontinence. ENDOCRINE: None SOLAR ENERGY SALES SPECIALIST:Denies any concerns SOLAR ENERGY SALES SPECIALIST: Age of first period: 17 Number of [...] incontinence, female - Unspecified asthma(493.90) - WPW (Xtksq-Uwnnwqbqw-Ndawp syndrome) PAST SURGICAL HISTORY Procedure Laterality Date - DELIVERY ONLY 85, 88,92 , low cervical X3 - ENLARGE BREAST WITH IMPLANT 11/2007 Breast augmentation - IUD INSERTION (SOLAR ENERGY SALES SPECIALIST DEPT)_*FL 08/30/2007 Mirena - removed - PAST SURGICAL HISTORY OF 11/2015 bladder sling - REMOVE TONSILS/ADENOIDS,ANDlt;13 Y/O 1968 - S PK LAVH [id number] 2013 lavh RICKY biltareal salpingectomy - SVT ABLATION W/ EP COMPLETE ALLERGIES: Citalopram; Dust; Mold; Pneumovax 23 [Pneumococcal 23-Daiwt Ps Vaccine]; Pollen; Propranolol; Smoke; Tetracycline MEDICATIONS: [...] Grandmother - Cancer Paternal Grandfather PROSTATE CANCER, [place] - Asthma Son - Asthma Daughter - Seizures Brother wpw Social History Marital status: Spouse name: Years of education: 15 Number of children: 3 Occupational History Occupation Employer Comment [employer] Social History Main Topics Smoking status: Never [...] Dulce Hoover MD Referring Provider: ANDREW GONZALEZ [[id number]] Allergies As of Date: 11/01/2017 Noted Allergy [...] FOR* More... Rapid palpitations [R00.2] INVALID FOR* Ynayu-Srtsryizp-Jldrf (WPW) syndrome [I45.6] INVALID FOR* Chest discomfort [...] 11/03/17 CNCO Observed: 11/01/2017 Status: COMPLETED Source: [place] 12:00 AM CLINIC OTHER CAMPUS REPOSITORY Letter Text Nicki Delacruz Dulce Hoover MD [place] [address] Office: [phone] To Whom It May Concern: This is [...] mailing) HOSP Observed: 11/01/2017 Status: COMPLETED Source: [place] 12:00 AM CLINIC OTHER CAMPUS REPOSITORY Patient:Nicki Delacruz MRN: <[id number]> Height:5' 2(1.575 m) Weight:151 lb (68.493 kg) [...] [F98.8] Insomnia, unspecified [G47.00] Rapid palpitations [R00.2] Viecr-Jmqsvwlqx-Nuhps (WPW) syndrome [I45.6] Anxiety [F41.9] Primary insomnia [...] 40.9 % 11/09/2017 46.0 36.0 Progress Notes ([facility]): Andrew Gonzalez MD 11/10/2017 5:45 PM [...] of dysuria, frequency or incontinence. ENDOCRINE: None SOLAR ENERGY SALES SPECIALIST:Denies any concerns SOLAR ENERGY SALES SPECIALIST: Age of first period: 17 Number of [...] incontinence, female - Unspecified asthma(493.90) - WPW (Yugri-Okzkscyho-Xncfw syndrome) PAST SURGICAL HISTORY Procedure Laterality Date - DELIVERY ONLY 85, 88,92 , low cervical X3 - ENLARGE BREAST WITH IMPLANT 11/2007 Breast augmentation - IUD INSERTION (SOLAR ENERGY SALES SPECIALIST DEPT)_*FL 08/30/2007 Mirena - removed - PAST SURGICAL HISTORY OF 11/2015 bladder sling - REMOVE TONSILS/ADENOIDS,<12 Y/O 1968 - S PK LAVH [id number] 2013 lavh RICKY biltareal salpingectomy - SVT [...] Grandmother - Cancer Paternal Grandfather PROSTATE CANCER, [place] - Asthma Son - Asthma Daughter - Seizures Brother wpw Social History Marital status: Spouse name: Years of education: 15 Number of children: 3 Occupational History Occupation Employer Comment [employer] Social History Main Topics Smoking status: Never [...] BILIARY DYSKINESIA IN THE APPROPRIATE CLINICAL SETTING. Train Attendant: PSCEaston Transcribe Date/Time: Oct 26 2017 4:00P Dictated by : HELLEN CHATTERJEE DO This examination was interpreted and the report reviewed and electronically signed by: QUINTIN WING MD on Oct 26 2017 4:10PM EST [id number] US ABD RIGHT UPPER Observed: 10/04/2017 Status: F Source: [facility] 1:33 PM [facility] REPOSITORY * * *Final Report* * * DATE OF EXAM: Oct 04 2017 1:33PM WRU 1032 - US ABD RIGHT UPPER QUADRANT [...] None. IMPRESSION: No acute sonographic abnormalities seen. Train Attendant: KLARISSA Transcribe Date/Time: Oct 04 2017 1:40P Dictated by : JIE SARMIENTO MD This examination was interpreted and the report reviewed and electronically signed by: JIE SARMIENTO MD on Oct 04 2017 1:43PM EST [id number] PROGRESS Observed: 10/04/2017 Status: COMPLETED Source: [place] 1:01 PM [facility] REPOSITORY HNO ID: [id number] Author: Cindy Claire Service: (none) Author Type: [...] OF NON Observed: 09/28/2017 Status: F Source: [facility] 12:40 PM [facility] REPOSITORY [facility] [address] [place] [address]. [address] [place] [address] Fax REHABILITATION SERVICES DISCHARGE SUMMARY MR#: [id number] Acct: [id number] Name: NICKI DELACRUZ Rep #: [id number] : 1965 52 From: Marilyn Tirado Referring [...] on 07/28/17 . Measurements are as follows :eyelet cutter R 60, L 47 ; lateral R [...] appropriate by the physician. Thank you! Marilyn iTrado <Electronically signed by Marilyn Tirado > 09/28/17 1240 CC: RIK GONZALEZ; Andrew Atkins DO KMEaston Signed OT GENERAL EVALUATION Observed: 07/21/2017 Status: F Source: [place] 11:54 AM [facility] REPOSITORY [facility] [address] [place] [address]. [address] [place], [place] [address] Fax REHABILITATION SERVICES INITIAL EVALUATION MR#: [id number] Acct: [id number] Name: NICKI DELACRUZ Rep #: [id number] : 1965 52 From: Marilyn Tirado Referring DrVimal: Andrew Atkins DO Status: REG RCR Insurance: [facility] COMMUNITY PLAN Eval Date: Patient's Visit Information [...] significant pain. She exhibits decreased strength for eyelet cutter in L affected hand as wella s [...] activation to form composite fist. - Strength Program Clerk: R 61, L 35 Lateral Pinch: R [...] to be FAXED BACK to us at [phone] for Medicare purposes. Please let me know [...] SOURCE CODE 08/30/2018 Drug Tetracyclines/F001 Unknown Unknown [place] Allergy/41 582527(RXNORM) [facility] 1637157([facility]) Repository 08/30/2018 Drug propranolol/P15477 Other Unknown Edward Allergy/41 4740(RXNORM) [facility] 2287690([facility]) Repository 12/27/2017 DRUG ENBUCRILATE RASH [address] 6876403([facility]) 09/07/2017 DRUG CITALOPRAM UNKNOWN [address] 8487471([facility]) 06/27/2017 Drug Tetracyclines/F001 Unknown Edward Allergy/41 867506(RXNORM) Community 4042363([facility]) Repository 06/27/2017 Drug propranolol/W03469 Other Edward Allergy/41 4740(RXNORM) Community 5962172([facility]) Repository 11/20/2013 DRUG/83495 PNEUMOCOCCAL SWELLING [facility] 1003(SNOME 23-DAWIT PS VACCINE [place]) Repository 01/25/2007 DRUG PROPRANOLOL Mental Chg [address] 9785192(SN Repository OMED CT) 09/08/2005 Environ/42 DUST INTOLERANCE [facility] 7654013(SN [place] [facility] [facility]) Repository 09/08/2005 DRUG MOLD INTOLERANCE [address] 5831729(SN Repository OMED [facility]) 09/08/2005 Environ/42 POLLEN INTOLERANCE [facility] 5289266(SN [place] [facility] [facility]) Repository 09/08/2005 Environ/42 SMOKE INTOLERANCE [facility] 6776296(SN [place] [facility] [facility]) Repository 09/08/2005 DRUG TETRACYCLINE INTOLERANCE [address] 0200073(SN Repository OMED CT) NG/7308894 CITALOPRAM [facility] Repository NG/6142865 DUST [facility] 06([facility]) Repository NG/0349132 ENBUCRILATE [facility] 06([facility]) Repository NG/0863962 MOLD [facility] 06([facility]OM[facility]) Repository NG/0667997 PNEUMOCOCCAL [facility] 06(SNOMED 23-DAWIT PS VACCINE [facility]) Repository NG/3578455 POLLEN [facility] 06([facility]OM[facility]) Repository NG/1265586 PROPRANOLOL [facility] 06([facility]OM[facility]) Repository NG/3270619 SMOKE [facility] 06([facility]OM[facility]) Repository NG/8059523 TETRACYCLINE [facility] 06(SNOMED [facility]) Repository ENCOUNTERS ENCOUNTERS ADMIT/DISCHARGE ACCOUNT NUMBER ADMITTING ENCOUNTER LOCATION SOURCE CLASS 09/05/2018/09/05/20 [id number] Emergency BBuilding:DANYEL Hodgson [address] [place] [address] Repository 08/31/2018 [id number] Ambulatory [facility] ding:MTLAB Repository 08/30/2018/08/30/20 [id number] Emergency [address] ding:ED Repository 08/28/2018 [id number] Ambulatory [facility] ding:LABSPEC Repository 08/28/2018/08/28/20 [id number] Ambulatory BMSBuilding: [place] [facility] Repository 08/21/2018 [id number] Ambulatory [facility] ding:LABSPEC Repository 08/21/2018/11/19 [id number] Ambulatory BMSBuilding: [place] 18 [facility] Repository 06/26/2018/06/28/20 [id number] Ambulatory [address] Repository 05/25/[id number] [facility] Repository 05/25/2018/05/25/20 [id number] Ambulatory [place] [address] MEDICAL Repository CENTERBuildi ng:AKCLB 05/23/2018 [id number] Ambulatory BMSBuilding: [place] BMS.[facility] Repository 05/10/2018/05/10/20 [id number] Ambulatory [address] Repository 05/10/2018/05/10/20 [id number] Ambulatory [place] [address] MEDICAL Repository CENTERBuildi ng:AGCARDPHR A 04/02/2018/04/03/20 [id number] Emergency [address] Repository 04/02/2018/04/03/20 [id number] Emergency [address] MEDICAL Repository CENTERBuildi ng:AKEDRoom: EDBed: 02 03/28/2018/03/29/20 [id number] [facility] Repository 03/28/2018/03/29/20 [id number] [facility], Inpatient [address] MEDICAL Repository CENTERBuildi nRoom: 2115Bed: 03/23/2018/03/23/20 [id number] Ambulatory [address] Repository 03/23/2018/03/23/20 [id number] Ambulatory [address] MEDICAL Repository CENTERBuildi ng:AGCARDPOB 03/07/2018 [id number] Ambulatory [facility] Hospital ding:OPBI Repository 02/16/2018/02/17/20 [id number] Ambulatory [address] Repository 12/27/2017/12/28/19 [id number] Ambulatory [address] Repository 12/21/2017/12/22/19 [id number] Ambulatory [address] Repository 12/21/2017/12/22/19 [id number] Ambulatory [place] [address] MEDICAL Repository CENTERBuildi ng:AGCARDPHR A 12/01/2017/12/07/19 [id number] Ambulatory [address] [place] Repository 11/28/2017/12/02/19 [id number] Ambulatory [address] [place] Repository 11/22/2017/11/22/19 [id number] Ambulatory [address] [place] Repository 11/20/2017/11/20/19 [id number] [facility] ding:ED Repository 11/20/2017/11/20/19 [id number] Ambulatory [address] [place] Repository 11/16/2017/11/16/[id number] [place] [place] Repository 11/09/2017 [id number] Ambulatory [facility] [place] Repository 11/09/2017/11/09/19 [id number] Ambulatory [address] Other [place] Repository 11/01/2017/11/01/19 [id number] Ambulatory [address] [place] Repository 10/26/2017 [id number] Ambulatory [facility] Other [place] Repository 10/04/2017/10/04/19 [id number] Ambulatory [address] [place] Repository 07/20/2017/08/16/20 [id number] Ambulatory [address] ding:OT Repository PAYERS PAYERS ENCOUNTER GUARANTOR PAYER SUBSCRIBER SOURCE 09/05/2018 NICKI Lai [facility] NICKI Lai [facility] OSBORNEDOB: Insurance:[facility] OSBORNEDOB: [facility] [id number] INSCOPolicy Number: [id number] Repository [facility] [id number] 6 [facility], Date:2018-09-05 - [place], [place] 9027-91-05Slbh [place] [address]Den: [id number] Name:YVETTE Niño [email or web address]: [address] [place] [address] ()Tel: [phone]: () () [phone] () 08/31/2018 NICKI Lai Primary Insurance:[facility] NICKI Macdonaldoster [id number] W COMMUNITY PLANPolicy OSBORNEDOB: Community MARKET Number: [id number], [place] [id number] Repository 68753Cwb: (330) Date:3442-53-76AN [phone] () [address] [place] [address] 72776PI: 08/31/2018 Secondary NOT GIVENUNK Edward Insurance:SELF PAY [facility] Number: Effective Repository Date:2018-08-31 08/30/2018 NICKI Lai Primary Insurance:[facility] NICKI Macdonaldoster [id number] W COMMUNITY PLANPolicy OSBORNEDOB: Community MARKET Number: [id number], [place] [id number] Repository 88308Vwc: (330) Date:1777-17-04KB [phone] () [address] [place] [address] 48279DB: 08/30/2018 Secondary NOT GIVENUNK [place] Insurance:SELF PAY [facility] Number: Effective Repository Date:2018-08-30 08/28/2018 NICKI Lai Primary Insurance:[facility] NICKI Macdonaldoster [id number] W COMMUNITY PLANPolicy OSBORNEDOB: Community MARKET Number: [id number], [place] [id number] Repository 61294Nnd: (330) Date:4913-04-15LV [phone] () [address] [place] [address] 38958JQ: 08/28/2018 Secondary NOT GIVENUNK Edward Insurance:SELF PAY [facility] Number: Effective Repository Date:2018-08-28 08/28/2018 NICKI Lai Primary Insurance:[facility] NICKI Macdonaldoster [id number] W COMMUNITY PLANPolicy OSBORNEDOB: Community MARKET Number: [id number], [place] [id number] Repository 45775Ygn: (330) Date:6070-64-20PQ [phone] () [address] [place] [address] 55725GN: 08/28/2018 Secondary NOT GIVENUNK [place] Insurance:SELF PAY [facility] Number: Effective Repository Date:2018-08-28 08/21/2018 NICKI Lai Primary Insurance:[facility] NICKI Macdonaldoster [id number] W COMMUNITY PLANPolicy OSBORNEDOB: Community MARKET Number: [id number], [place] [id number] Repository 55795Avu: (330) Date:9840-60-79AN [phone] () [address] [place] [address] 42093HU: 08/21/2018 Secondary NOT GIVENUNK Edward Insurance:SELF PAY [facility] Number: Effective Repository Date:2018-08-21 08/21/2018 NICKI Lai Primary Insurance:[facility] NICKI Macdonaldoster [id number] [facility] PL[facility] OSBORNEDOB: Community MARKET Number: [id number], [place] [id number] Repository 69324Weu: (330) Date:2971-13-80AS [phone] () [address] [place] [address] 69913CJ: 08/21/2018 Secondary NOT GIVENUNK [place] Insurance:SELF PAY [facility] Number: Effective Repository Date:2018-08-21 05/25/2018 NICKI Lai Primary Insurance:[facility] NICKI Lai [facility] OSBORNEDOB: COMMUNITY PLAN OSBORNEDOB: [facility] [id number] W MEDICAIDPolicy [id number] Repository MARKET Number: [place], [place] [id number] [address]Ebb: (330) Date: [phone] (HP) 05/23/2018 NICKI Lai Primary Insurance:[facility] NICKI Macdonaldoster [id number] W [facility] PLANPolicy OSBORNEDOB: Community Market Number: [id number] [id number] Repository 69675Zkb: (330) Date:1175-82-86MM [phone] () [address] [place] [address] 50978FO: 05/23/2018 Secondary NOT GIVENUNK [place] Insurance:SELF PAY [facility] Number: Effective Repository Date:2018-05-23 05/10/2018 NICKI Lai Primary Insurance:[facility] NICKI Lai [facility] OSBORNEDOB: COMMUNITY PLAN OSBORNEDOB: [facility] W MEDICAIDPolicy [id number] Repository MARKET Number: [place] [id number] 11890Aiy: (330) Date: 64 (HP) 04/02/2018 NICKI Lai Primary Insurance:[facility] NICKI [facility] OSBORNEDOB: COMMUNITY PLAN OSBORNEDOB: [facility] W MEDICAIDPolicy [id number] Repository MARKET Number: [place] [id number] 56111Mon: (330) Date: 64 (HP) 03/28/2018 NICKI Lai Primary Insurance:[facility] NICKI [facility] OSBORNEDOB: COMMUNITY PLAN OSBORNEDOB: [facility] W MEDICAIDPolicy [id number] Repository MARKET Number: [place] [id number] 11367Xsx: (330) Date: 64 (HP) 03/23/2018 NICKI Lai Primary Insurance:[facility] NICKI [facility] OSBORNEDOB: COMMUNITY PLAN OSBORNEDOB: [facility] [id number] W MEDICAIDPolicy [id number] Repository MARKET Number: [place] [id number] [address]Dct: (330) Date: 64 (HP) 03/07/2018 NICKI Lai Primary Insurance:[facility] NICKI Lai Edward [id number] W COMMUNITY PLANPolicy OSBORNEDOB: Community Market Number: [id number] [facility] [place] [id number] Repository 8[address]Pvp: (330) Date:9944-75-00[phone] () [address] [place] [address] 49492AI: 03/07/2018 Secondary NOT GIVENUNK Edward Insurance:SELF PAY [facility] Number: Effective Repository Date:2018-02-07 12/21/2017 NICKI Lai Primary Insurance:[facility] NICKI M [facility] OSBORNEDOB: COMMUNITY PLAN OSBORNEDOB: [facility] [id number] W MEDICAIDPolicy [id number] Repository MARKET Number: [place], [place] [id number] [address]Han: (330) Date: [phone] (HP) 11/20/2017 Nicki [id number] Primary Insurance:[facility] Nicki OsborneDOB: [place] [facility] [id number] [place] Number: Hospital [address]Glp: 330 [id number] Repository [phone] (HP) Date:5213-26-10CP [address] [address]FW: 11/20/2017 Secondary NOT GIVENUNK Edward Insurance:SELF PAY [facility] Number: Effective Repository Date:2017-11-20 07/20/2017 NICKI [id number] Primary Insurance:[facility] NICKI OSBORNEDOB: Edward [facility] [id number] [place], [place] Number: Hospital [address]Bxr: (322) [id number] Repository [phone] (HP) Date:6526-35-37AA [address] [address]WD:
== END ==
PROVIDERS: Referring Provider Nurse Practitioner Women's Health; Visit Provider Nurse Practitioner Women's Health
DX: Z00.00 Encounter for general adult medical examination without abnormal findings (principal)
CPT/HCPCS: 36415; 80061; 82947; 84443

== ENCOUNTER → 2020-07-18 09:51 | Outpatient (CLI) | payer MEDICAID, SELFPAY ==
[2020-04-21 15:14] VITALS: BMI 26.4
--- NOTE | 2020-07-18 09:51 | BI_ITS ---
MAMMOGRAPHY - BILATERAL SCREENING REASON FOR EXAM: Female, 55 years old. Routine annual screening examination. PERTINENT HISTORY: Non-contributory. Bilateral breast implants. TECHNIQUE: Digital bilateral breast kristy (3D mammographic acquisition) in the CC and MLO projections. 2-D mediolateral oblique (MLO) and craniocaudad (CC) views of both breasts were obtained. CAD: Full Field Digital Mammography with Computer Added Detection was performed. COMPARISON: Comparison is made with prior study dated 03/07/2018. FINDINGS: Breast Composition: The breasts are heterogeneously dense, which may obscure small masses. There are no dominant masses or suspicious calcifications. Stable appearance of the bilateral breast implants. No other significant abnormalities are identified. There has been no significant change since the prior study. BI/SCREEN MAMM (CAD) W/KRISTY BILAT IMPRESSION: Stable bilateral screening mammogram. Yearly follow-up mammogram recommended. (A) ASSESSMENT CATEGORY: BIRADS Category 2: Benign. A letter regarding these results will be sent to the patient by the facility within 30 days. Approximately 10% of breast cancers are not detected by mammography. A normal mammogram should not delay biopsy of a clinically suspicious abnormality. [id number] Electronically Signed: Dav Ureña, at 12:18 EDT , Service support ,
== END ==
PROVIDERS: Referring Provider Obstetrics & Gynecology; Visit Provider Obstetrics & Gynecology
DX: Z12.31 Encounter for screening mammogram for malignant neoplasm of breast (principal)
CPT/HCPCS: 77063; 77067

== ENCOUNTER → 2021-03-13 16:43 | Outpatient (CLI) | payer OTHER, MEDICAID, SELFPAY ==
[2021-03-13 15:29] VITALS: BMI 26.4
== END ==
PROVIDERS: Visit Provider Obstetrics & Gynecology
DX: R30.0 Dysuria (principal)
CPT/HCPCS: 87077; 87086; 87088; 87186

== ENCOUNTER → 2021-05-11 17:43 | Outpatient (CLI) | payer OTHER, MEDICAID, SELFPAY ==
[2021-03-13 15:29] VITALS: BMI 26.4
--- NOTE | 2021-05-11 18:05 | CT_ITS ---
STUDY: CT ABDOMEN AND PELVIS WITH AND WITHOUT CONTRAST REASON FOR EXAM: Female, 55 years old. UTI RADIATION DOSAGE (If Supplied By Facility): CTDIvol = ( 14.71 ) mGy, DLP = ( 2030.50 ) mGycm TECHNIQUE: Transaxial images were obtained from the dome of the diaphragm to the symphysis pubis without oral contrast. Oral and amp; IV Gastrografin and amp; 100mL Isovue-300 was administered. Sagittal and coronal images were reconstructed. Individualized dose optimization techniques were used for this CT. COMPARISON: 11/20/17 FINDINGS: The visualized lung bases are unremarkable. The visualized portions of the heart are within normal limits. The patient status post cholecystectomy. The liver, spleen, pancreas and adrenal glands are within normal limits. There are no urinary calculi. There is no hydronephrosis. There is symmetric enhancement and excretion noted in the kidneys following contrast administration. There are no focal renal lesions. The urinary bladder is unremarkable. There is no bowel obstruction or inflammation. The patient is status post hysterectomy. There is no abdominal or pelvic free air, free fluid or lymphadenopathy. The aorta is normal in caliber. There are no destructive osseous lesions. CT/CT Abd/Pelvis W/WO Contrast IMPRESSION: No urinary calculi. No hydronephrosis. Normal kidneys. Normal urinary bladder. Electronically Signed: Kevin Rodriguez MD at 16:33 EDT Tel , Service support ,
== END ==
PROVIDERS: Referring Provider Urology; Visit Provider Urology
DX: N39.0 Urinary tract infection, site not specified (principal); R11.2 Nausea with vomiting, unspecified; R19.7 Diarrhea, unspecified
CPT/HCPCS: 74178; Q9967; A4216

== ENCOUNTER 2021-05-25 11:10 | Day surgery (SDC) | payer OTHER, MEDICAID, SELFPAY ==
[2021-03-13 15:29] VITALS: BMI 26.4
[2021-05-25 11:39] VITALS: BP 114/71; PULSE 70; RESP 16; TEMP 36.3; O2SAT 99; BMI 26.2
[2021-05-25] MEDS: Lactated Ringers 1,000 ML 100 ML IV (11:44)
--- NOTE | 2021-05-25 12:30 | PCM.OPRPT ---
Problems Associated Problem List Diagnoses (1) Urinary tract infection: (2) Other urethral stricture, female: (3) Intermittent lower abdominal pain: Report of Operation Date of Procedure: 05/25/21 Pre-Operative Diagnosis: Other specified urethral stricture female, recurrent urinary tract infections, lower abdominal pain Post-Operative Diagnosis: Same Surgery/Procedure Performed:: Urethral dilation, cystourethroscopy Surgeon: Hansa Barrow Type of Anesthesia: MAC Description of Procedure: The patient is a 55-year-old female undergoing evaluation for urinary tract infection and abdominal pain who was found to have a urethral stricture in the office. She now presents for urethral dilation and cystoscopy under anesthesia. Informed consent was obtained. The patient was taken the operating room and placed on the operating room table. Anesthesia monitored the head, neck, airway, IV access and vital signs throughout the case. Once anesthesia was appropriate ministered the patient was placed into dorsal lithotomy position was prepped and draped in usual sterile fashion. At this time the urethra was systematically dilated from 12 Northern Irish to 26 Northern Irish. There was mild cracking of the mucosa. At this time the cystoscope was passed without difficulty through the urethra into the urinary bladder. The bladder mucosa was visualized in its entirety. There were no areas of erythema, mass, ulceration or foreign body identified. At this time the patient's bladder was emptied and the case was terminated. The patient tolerated the procedure well. She was taken to the recovery room in good condition. There were no complications during this procedure. Grafts/Implants Used: none Complications none Admit VTE Documentation VTE Present on Admission: Yes VTE Mechan Device Prophylaxis: SCD's VTE Pharm Prophylaxis ordered?: No Reason prophylaxis not ordered:: Treatment Not Indicated
--- NOTE | 2021-05-25 12:34 | PCM.DC ---
Discharge Instructions Diet Discharge Diet: No restrictions Activity Discharge Activity: Return to Normal Activity May resume sexual activity in: 1-2 weeks Dressing / Incision Call your doctor if your incision/area has: Continuous Slow Oozing, Sudden Increased Bleeding and Increased Pain/ Swelling Call your doctor if you observe: Fever of 101 or Higher, Inability to urinate, Inability to have a bowel movement and Uncontrolled pain Follow Up Care Please Follow Up With: Hansa Barrow MD When: in 2 weeks, call for appt Test Results: Test results from this visit will be discussed in further detail at your follow-up appointment, if applicable. Discharge Plan Admission Attending Provider: Hansa Barrow Primary Care Provider: Andrew Xavire Discharge Orders/Prescriptions Prescriptions: New oxycodone-acetaminophen [oxycodone-acetaminophen] 1 TABLET tablet 2 tab PO Q8H PRN PRN (Reason: Pain) 7 Days Qty: 10 RF: 0 phenazopyridine [Pyridium] 200 MG tablet 200 mg PO TID PRN PRN (Reason: Bladder Spasms) 7 Days Qty: 30 RF: 0 sulfamethoxazole-trimethoprim [sulfamethoxazole-trimethoprim] 1 TABLET tablet 1 tab PO BID 3 Days Qty: 6 RF: 0 Continued levocetirizine [Xyzal] 5 mg tablet 5 mg PO DAILY RF: 0 trazodone 50 MG tablet 50 mg PO QHS RF: 0 multivitamin with folic acid 1 TABLET tablet 1 tab PO DAILY RF: 0 lorazepam 0.5 MG tablet 0.5 mg PO PRN PRN (Reason: Anxiety) RF: 0 sulfamethoxazole-trimethoprim 800-160 mg Tablet 1 tab PO DAILY RF: 0 pantoprazole 40 mg tablet,delayed release (DR/EC) 40 mg PO DAILY RF: 0 olopatadine 0.1 % drops 1 drp EACH EYE DAILY RF: 0 dicyclomine 10 mg capsule 10 mg PO BID RF: 0 fluticasone propionate 50 mcg/actuation spray,suspension 2 spray INTRANASAL DAILY RF: 0 d-mannose 500 mg Capsule 500 mg PO DAILY RF: 0 Nurtec ODT 75 mg tablet,disintegrating 75 mg PO PRN PRN (Reason: MIGRAINES) RF: 0 albuterol sulfate 90 mcg/actuation HFA aerosol inhaler 1 puff INHALATION PRN PRN (Reason: ASTHMA) RF: 0 estradiol 0.025 mg/24 hr patch semiweekly 1 patch transdermal SUWE Qty: 8 RF: 11 Referrals / Follow Up: Andrew Xavier MD [Primary Care Provider] - Disposition Disposition (needs filled in before D/C Order can be placed): Home, Self Care
[2021-05-25] MEDS: Cefazolin 2 GM in 0.9% Normal Saline 100 ML IV (12:56)
[2021-05-25 13:18] VITALS: BP 114/71; BP 95/56; PULSE 65; RESP 14; TEMP 36.2; O2SAT 95
[2021-05-25 13:20] VITALS: BP 114/71; BP 88/54; PULSE 59; RESP 16; O2SAT 95
[2021-05-25 13:25] VITALS: BP 114/71; BP 91/56; PULSE 61; RESP 16; O2SAT 96
[2021-05-25 13:32] VITALS: BP 114/71; BP 95/58; PULSE 58; RESP 16; TEMP 36.3; O2SAT 97
[2021-05-25] MEDS: oxyCODONE 5 MG Tablet 10 MG PO (14:12)
[2021-05-25 14:48] VITALS: BP 114/71; BP 99/67; PULSE 60; RESP 16; TEMP 36.1; O2SAT 98
== END 2021-05-25 14:50 | disposition home or self-care (01) ==
LOC: SDC 11:12 → AC 11:13
PROVIDERS: Visit Provider Urology
PROC: 0T7D8ZZ Dilation of Urethra, Via Natural or Artificial Opening Endoscopic (ICD-10-PCS; CPT 52281; principal; 2021-05-25 12:40)
DX: N35.82 Other urethral stricture, female (principal); N95.2 Postmenopausal atrophic vaginitis; N39.0 Urinary tract infection, site not specified; I45.6 Pre-excitation syndrome; K21.9 Gastro-esophageal reflux disease without esophagitis; Z87.440 Personal history of urinary (tract) infections; Z79.899 Other long term (current) drug therapy; Z20.822 Contact with and (suspected) exposure to COVID-19
CPT/HCPCS: 52281; 87426; C9803; J7120; J2405

== ENCOUNTER → 2021-07-31 | Outpatient (CLI) | payer OTHER, MEDICAID, SELFPAY | END | disposition home or self-care (01) | LOC: LABSPEC 15:15 | PROVIDERS: Visit Provider Obstetrics & Gynecology | DX: N89.8 Other specified noninflammatory disorders of vagina (principal) | CPT/HCPCS: 87070; 87077; 87205 ==

== ENCOUNTER → 2021-08-21 13:20 | Outpatient (CLI) | payer MEDICAID, OTHER, SELFPAY ==
--- NOTE | 2021-08-21 13:46 | BI_ITS ---
MAMMOGRAPHY - BILATERAL SCREENING REASON FOR EXAM: Female, 56 years old. Routine annual screening examination. PERTINENT HISTORY: Non-contributory. Bilateral breast implants. TECHNIQUE: Digital bilateral breast kristy (3D mammographic acquisition) in the CC and MLO projections. 2-D mediolateral oblique (MLO) and craniocaudad (CC) views of both breasts were obtained. CAD: Full Field Digital Mammography with Computer Added Detection was performed. COMPARISON: Comparison is made with prior study 07/18/2020 and 03/07/2018. FINDINGS: Breast Composition: The breasts are heterogeneously dense, which may obscure small masses. There are no dominant masses or suspicious calcifications. Stable appearance of the bilateral breast implants. No other significant abnormalities are identified. There has been no significant change since the prior study. BI/SCRN MAMM (CAD)W/KRISTY BILAT IMPRESSION: Stable bilateral screening mammogram. Yearly follow-up mammogram recommended. (A) ASSESSMENT CATEGORY: BIRADS Category 2: Benign. A letter regarding these results will be sent to the patient by the facility within 30 days. Approximately 10% of breast cancers are not detected by mammography. A normal mammogram should not delay biopsy of a clinically suspicious abnormality. [id number] Electronically Signed: Dav Ureña MD at 14:58 EST , Service support ,
== END ==
PROVIDERS: Referring Provider Obstetrics & Gynecology; Visit Provider Obstetrics & Gynecology
DX: Z12.31 Encounter for screening mammogram for malignant neoplasm of breast (principal)
CPT/HCPCS: 77063; 77067

== ENCOUNTER → 2021-09-10 | Outpatient (CLI) | payer OTHER, MEDICAID, SELFPAY | END | disposition home or self-care (01) | PROVIDERS: Visit Provider Obstetrics & Gynecology | DX: N89.8 Other specified noninflammatory disorders of vagina (principal) | CPT/HCPCS: 87070; 87205 ==

== ENCOUNTER → 2022-12-23 | Outpatient (CLI) | payer OTHER, MEDICAID, SELFPAY ==
--- NOTE | 2022-12-23 13:42 | BI_ITS ---
MAMMOGRAPHY - BILATERAL SCREENING REASON FOR EXAM: Female, 57 years old. Routine annual screening examination. PERTINENT HISTORY: Non-contributory. History of bilateral breast implants. TECHNIQUE: Digital bilateral breast kristy (3D mammographic acquisition) in the CC and MLO projections. 2-D mediolateral oblique (MLO) and craniocaudad (CC) views of both breasts were obtained. CAD: Full Field Digital Mammography with Computer Added Detection was performed. COMPARISON: Comparison is made with prior study August 21, 2021 July 18, 2020. FINDINGS: Breast Composition: The breasts are heterogeneously dense, which may obscure small masses. There are no dominant masses or suspicious calcifications. Stable appearance of the bilateral breast implants. No other significant abnormalities are identified. There has been no significant change since the prior study. BI/SCRN MAMM (CAD)W/KRISTY BILAT IMPRESSION: Stable bilateral screening mammogram. Yearly follow-up mammogram recommended. (A) ASSESSMENT CATEGORY: BIRADS Category 2: Benign. A letter regarding these results will be sent to the patient by the facility within 30 days. Approximately 10% of breast cancers are not detected by mammography. A normal mammogram should not delay biopsy of a clinically suspicious abnormality. [id number] Electronically Signed: Dav Ureña MD at 14:54 EDT ,
== END | disposition home or self-care (01) ==
PROVIDERS: Visit Provider Obstetrics & Gynecology
DX: Z12.31 Encounter for screening mammogram for malignant neoplasm of breast (principal)
CPT/HCPCS: 77063; 77067

== ENCOUNTER → 2023-08-05 | Outpatient (CLI) | payer OTHER, SELFPAY ==
[2023-08-05 11:54] LABS: Absolute Lymphocyte Count 2.73 X10^3/uL (0.83-4.51); Absolute Neutrophil Count 3.7 X10^3/uL (2.0-7.7); Basophil# 0.05 X10^3/uL; Basophil% 0.7 % (0-1); Eosinophil# 0.07 X10^3/uL; Hematocrit 40.1 % (37-47); Hemoglobin 12.8 g/dL (12.0-15.0); Lymphocyte # 2.73 X10^3/ul (0.83-4.51); Lymphocyte % 37.5 % (19-41); Mean Corp Hgb Conc 31.9 g/dL (32-36); Mean Corpuscular Hgb 28.8 pg (27.0-32.0); Mean Corpuscular Volume 90.1 fL (81-99); Mean Platelet Vol. 10.1 fl (6.2-12.0); Monocyte# 0.68 X10^3/uL; Monocyte% 9.3 % (0-10); NRBC Flagged by Analyzer 0 % (0-5); Neutrophil # 3.71 X10^3/uL (2.7-7.7); Platelet Count 346 K/mm3 (150-450); RBC Distribution Width CV 13.8 % (11.6-14.6); RBC Distribution Width SD 45.4 fl (35.1-43.9); Red Blood Count 4.45 M/mm3 (4.2-5.4); White Blood Count 7.3 K/mm3 (4.4-11.0)
[2023-08-05 12:16] LABS: Vitamin D,25 Hydroxy 52.9 ng/mL
[2023-08-05 12:21] LABS: Hemoglobin A1c 5.3 % (3.8-5.6)
[2023-08-05 12:23] LABS: ALB/GLOB Ratio 1.3 RATIO (0.9-2.4); AST(SGOT) 15 U/L (15-37); Alanine Aminotransfer ALT/SGPT 26 U/L (13-56); Albumin, Serum 4.1 g/dL (3.2-5.0); Alkaline Phosphatase 58 U/L (45-117); Anion Gap 5 (5-15); BUN 15 mg/dL (7-18); Calcium,Total 9.2 mg/dL (8.5-10.1); Chloride 105 mmol/L (98-107); Cholesterol 211 mg/dL (200); Creatinine, Serum 0.88 mg/dL (0.55-1.02); EST Glomerular Filtration Rate 70 mL/min (>60); Est Glom Filt Rate - Afr Amer 85 mL/min (>60); Globulin 3.1 g/dL (2.2-4.2); Glucose 90 mg/dL (74-106); High Density Lipoprotein 99 mg/dL; Potassium 4.1 mmol/L (3.5-5.1); Protein, Total 7.2 g/dL (6.4-8.2); Sodium Level 139 mmol/L (136-145); Thyroid Stim Hormone (TSH) 2.09 uIU/mL (0.358-3.74); Triglycerides 39 mg/dL; Very Low Density Lipoprotein 8 mg/dL (5-40)
== END | disposition home or self-care (01) ==
LOC: PAVLAB 11:11
PROVIDERS: Referring Provider Obstetrics & Gynecology; Visit Provider Obstetrics & Gynecology
DX: Z13.220 Encounter for screening for lipoid disorders (principal); Z13.1 Encounter for screening for diabetes mellitus; Z13.29 Encounter for screening for other suspected endocrine disorder; Z13.21 Encounter for screening for nutritional disorder; Z13.0 Encounter for screening for diseases of the blood and blood-forming organs and certain disorders involving the immune mechanism
CPT/HCPCS: 36415; 80053; 80061; 82306; 83036; 84443; 85025

== ENCOUNTER → 2024-01-17 | Outpatient (CLI) | payer BC, SELFPAY | END | disposition home or self-care (01) | PROVIDERS: Visit Provider Nurse Practitioner Family | DX: N89.8 Other specified noninflammatory disorders of vagina (principal) | CPT/HCPCS: 87070; 87205 ==

== ENCOUNTER → 2024-03-19 | Outpatient (CLI) | payer BC, SELFPAY ==
[2024-03-19 18:31] LABS: Absolute Lymphocyte Count 2.49 X10^3/uL (0.83-4.51); Absolute Neutrophil Count 5.5 X10^3/uL (2.0-7.7); Basophil# 0.03 X10^3/uL; Basophil% 0.3 % (0-1); Eosinophil# 0.07 X10^3/uL; Eosinophils% 0.8 % (0-5); Hematocrit 38.3 % (37-47); Hemoglobin 12.4 g/dL (12.0-15.0); Lymphocyte # 2.49 X10^3/ul (0.83-4.51); Lymphocyte % 28.2 % (19-41); Mean Corp Hgb Conc 32.4 g/dL (32-36); Mean Corpuscular Hgb 29.5 pg (27.0-32.0); Mean Platelet Vol. 10.7 fl (6.2-12.0); Monocyte# 0.69 X10^3/uL; Monocyte% 7.8 % (0-10); NRBC Flagged by Analyzer 0 % (0-5); Neutrophil # 5.52 X10^3/uL (2.7-7.7); Neutrophil % 62.6 % (47-70); Platelet Count 354 K/mm3 (150-450); RBC Distribution Width CV 14.2 % (11.6-14.6); RBC Distribution Width SD 47.3 fl (35.1-43.9); Red Blood Count 4.21 M/mm3 (4.2-5.4); White Blood Count 8.8 K/mm3 (4.4-11.0)
[2024-03-19 19:07] LABS: Erythrocyte Sedimentation Rate 4 mm/hr (0-30)
[2024-03-19 21:33] LABS: CRP < 2.90 mg/L (0.0-3.0); Rheumatoid Factor < 10.0 IU/mL (<15)
[2024-03-21 13:09] LABS: ANTINUCLEAR ANTIBODIES DIRECT Negative (Negative); Anti-Scleroderma-70 AB <0.2 AI (0.0-0.9); Anti-dsDNA Ab <1 IU/mL (0-9); Eosinophils Count 0.1 x10E3/uL (0.0-0.4)
[2024-03-21 15:09] LABS: Angiotensin Convert Enzyme 26 U/L (14-82); CCP IgG Antibodies 5 units (0-19)
== END | disposition home or self-care (01) ==
PROVIDERS: Referring Provider Internal Medicine Pulmonary Disease; Visit Provider Internal Medicine Pulmonary Disease
DX: R06.02 Shortness of breath (principal)
CPT/HCPCS: 36415; 82164; 85025; 85048; 85652; 86038; 86140; 86200; 86225; 86235; 86431

== ENCOUNTER → 2024-07-19 | Outpatient (CLI) | payer BC, SELFPAY ==
--- NOTE | 2024-07-19 15:03 | BI_ITS ---
MAMMOGRAPHY - BILATERAL SCREENING REASON FOR EXAM: Female, 59 years old. Routine annual screening examination. PERTINENT HISTORY: Non-contributory. History of prior bilateral breast implants. TECHNIQUE: Digital bilateral breast kristy (3D mammographic acquisition) in the CC and MLO projections. 2-D mediolateral oblique (MLO) and craniocaudad (CC) views of both breasts were obtained. CAD: Full Field Digital Mammography with Computer Added Detection was performed. COMPARISON: Comparison is made with prior study December 23, 2022 and August 21, 2021. FINDINGS: Breast Composition: The breasts are heterogeneously dense, which may obscure small masses. There are no dominant masses or suspicious calcifications. Stable appearance of the bilateral breast implants. No other significant abnormalities are identified. There has been no significant change since the prior study. BI/SCRN MAMM (CAD)W/KRISTY BILAT IMPRESSION: Stable bilateral screening mammogram. Yearly follow-up mammogram recommended. (A) ASSESSMENT CATEGORY: BIRADS Category 2: Benign. A letter regarding these results will be sent to the patient by the facility within 30 days. Approximately 10% of breast cancers are not detected by mammography. A normal mammogram should not delay biopsy of a clinically suspicious abnormality. [id number] Electronically Signed: Dav Ureña MD at 8:30 EDT ,
== END | disposition home or self-care (01) ==
PROVIDERS: PCP Internal Medicine; Referring Provider Obstetrics & Gynecology; Visit Provider Obstetrics & Gynecology
DX: Z12.31 Encounter for screening mammogram for malignant neoplasm of breast (principal)
CPT/HCPCS: 77063; 77067

== ENCOUNTER → 2024-11-01 | Outpatient (CLI) | payer BC, SELFPAY ==
--- NOTE | 2024-11-01 16:07 | BD_ITS ---
EXAM: CLINICAL INDICATION: Determine bone density. CLINICAL HISTORY: Postmenopausal COMPARISON: None TECHNIQUE: Bone densitometry of the lumbar spine and hips was performed using the HOLOGIC DEXA scanner. FINDINGS: Bone Density Measurements: SPINE AP Spine (L1-L4): 1.062 g/cm2 T-Score: 0.1 Z-Score: 1.4 WHO Classification: NORMAL LEFT FEMUR Femoral TOTAL (LEFT): 0.897 g/cm2 T-Score: -0.4 Z-Score: 0.5 WHO Classification: NORMAL Femoral NECK (LEFT): 0.750 g/cm2 T-Score: -0.9 Z-Score: 0.3 WHO Classification: NORMAL 10 year FRAX: Major osteoporotic fracture: 11% Hip fracture: 0.6% RIGHT FEMUR Femoral TOTAL (RIGHT): 0.947 g/cm2 T-Score: 0.0 Z-Score: 0.9 WHO Classification: NORMAL Femoral NECK (RIGHT): 0.804 g/cm2 T-Score: -0.4 Z-Score: 0.8 WHO Classification: Normal 10 year FRAX: Major osteoporotic fracture: 9.9% Hip fracture: 0.4% BD/Dexa Bone Density Study IMPRESSION: Normal bone density World Health Organization criteria for BMD interpretation classify patients as: Normal (T-score at or above -1.0), Osteopenic (T-score between -1.0 and -2.5),or Osteoporotic (T-score at or below -2.5). The presence of vertebral abnormalities such as scoliosis or osteophytes, or ao rtic/ligamentous calcifications can alter readings of the lumbar spine. In such cases, readings of the hips are more reliable. Reading Location: [facility]
== END | disposition home or self-care (01) ==
LOC: OPBD 16:06
PROVIDERS: PCP Internal Medicine; Referring Provider Internal Medicine; Visit Provider Internal Medicine
DX: Z78.0 Asymptomatic menopausal state (principal)
CPT/HCPCS: 77080

== ENCOUNTER → 2024-11-22 | Outpatient (CLI) | payer BC, SELFPAY ==
[2024-11-22 14:14] LABS: SERUM TEARS COLLECTION SPECIMEN PROCESSED
== END | disposition home or self-care (01) ==
PROVIDERS: PCP Internal Medicine; Referring Provider Ophthalmology; Visit Provider Ophthalmology
DX: H04.123 Dry eye syndrome of bilateral lacrimal glands (principal)

== ENCOUNTER → 2025-01-10 | Outpatient (CLI) | payer BC, SELFPAY ==
[2025-01-10 15:46] LABS: Absolute Neutrophil Count 4.1 X10^3/uL (2.0-7.7); Basophil# 0.04 X10^3/uL; Basophil% 0.6 % (0-1); Eosinophil# 0.05 X10^3/uL; Eosinophils% 0.7 % (0-5); Hematocrit 36.2 % (37-47); Hemoglobin 11.6 g/dL (12.0-15.0); Lymphocyte % 31.1 % (19-41); Mean Corpuscular Hgb 28.9 pg (27.0-32.0); Mean Corpuscular Volume 90.3 fL (81-99); Mean Platelet Vol. 10.8 fl (6.2-12.0); Monocyte# 0.69 X10^3/uL; Monocyte% 9.7 % (0-10); NRBC Flagged by Analyzer 0 % (0-5); Neutrophil # 4.07 X10^3/uL (2.7-7.7); Neutrophil % 57.5 % (47-70); Platelet Count 297 K/mm3 (150-450); RBC Distribution Width CV 13.2 % (11.6-14.6); RBC Distribution Width SD 43.7 fl (35.1-43.9); Red Blood Count 4.01 M/mm3 (4.2-5.4); White Blood Count 7.1 K/mm3 (4.4-11.0)
[2025-01-10 16:39] LABS: ALB/GLOB Ratio 1.9 RATIO (0.9-2.4); AST(SGOT) 21 U/L (<=31); Alanine Aminotransfer ALT/SGPT 15 U/L (<=34); Albumin, Serum 4.4 g/dL (3.5-5.0); Alkaline Phosphatase 53 U/L (35-104); Anion Gap 10 (5-15); BUN 15 mg/dL (4-19); BUN/Creat Ratio 11.8 RATIO (10-20); Calcium,Total 9.2 mg/dL (7.6-11.0); Carbon Dioxide 22.9 mmol/L (21.0-32.0); Chloride 100 mmol/L (98-108); Creatinine, Serum 1.23 mg/dL (0.70-1.20); EST Glomerular Filtration Rate 51 (>60); Globulin 2.4 g/dL (2.2-4.2); Glucose 81 mg/dL (70-99); Potassium 4.4 mmol/L (3.3-5.1); Protein, Total 6.7 g/dL (5.9-8.4); Sodium Level 133 mmol/L (133-145); Total Bilirubin 0.26 mg/dL (0.00-1.30)
[2025-01-10 16:42] LABS: CRP < 3.00 mg/L (0.0-3.0)
[2025-01-14 15:08] LABS: ACCA 14 units (0-90); ALCA 2 units (0-60); AMCA 17 units (0-100); Cytoplasmic Ab (C-ANCA) <1:20 titer (Neg:<1:20); Endomysial Antibody IgA Negative (Negative); Immunoglobulin A 110 mg/dL (87-352); Perinuclear Ab (P-ANCA) <1:20 titer (Neg:<1:20); gASCA 6 units (0-50); t-Transglutaminase IgA <2 U/mL (0-3)
== END | disposition home or self-care (01) ==
LOC: LAB 15:06
PROVIDERS: PCP Internal Medicine
DX: K58.0 Irritable bowel syndrome with diarrhea (principal); R13.10 Dysphagia, unspecified
CPT/HCPCS: 36415; 80053; 82784; 83516; 85025; 86003; 86005; 86036; 86037; 86038; 86140; 86255; 86671

== ENCOUNTER → 2025-01-17 | Outpatient (CLI) | payer BC, SELFPAY ==
[2025-01-20 11:07] LABS: Calprotectin, Stool 80 ug/g (0-120)
[2025-01-21 02:07] LABS: Pancreatic Elastase, Fecal > 800 (>200)
== END | disposition home or self-care (01) ==
LOC: LABSPEC 15:47
PROVIDERS: PCP Internal Medicine; Referring Provider Nurse Practitioner Acute Care; Visit Provider Nurse Practitioner Acute Care
DX: K58.0 Irritable bowel syndrome with diarrhea (principal); R13.10 Dysphagia, unspecified
CPT/HCPCS: 82653; 83993

== ENCOUNTER → 2025-05-09 | Outpatient (CLI) | payer SELFPAY ==
[2025-05-09 12:41] LABS: SERUM TEARS COLLECTION SPECIMEN PROCESSED
== END | disposition home or self-care (01) ==
PROVIDERS: PCP Internal Medicine; Referring Provider Ophthalmology; Visit Provider Ophthalmology
DX: H04.123 Dry eye syndrome of bilateral lacrimal glands (principal)

== ENCOUNTER → 2025-05-21 | Outpatient (CLI) | payer OTHER, SELFPAY ==
--- NOTE | 2025-05-21 12:24 | NM_ITS ---
PROCEDURE: GASTRIC EMPTYING STUDY 05/21/2025 REASON FOR EXAM: FREQUENT NAUSEA. Abdominal pain. Alternating constipation and diarrhea. COMPARISON: None. TECHNIQUE: The patient ingested a semi-solid meal of oatmeal. There was no vomiting postprandially. Anterior and posterior planar images of the upper abdomen were obtained for a total of 60 minutes. Regions of interest were drawn, and a geometric mean was used to calculate a [id number]. Medications taken in the past 24 hours that may affect gastric emptying: None RADIOPHARMACEUTICAL: Technetium 99 M sulfur colloid DOSE 1mCi orally with the oatmeal. FINDINGS: During the time of imaging, gastroesophageal reflux was not seen. Linear fit gastric emptying half-time of 57.9 minutes. Raw data gastric emptying half-time of 58.4 minutes. Gastric emptying at 18.5 minutes of 8%, at 29.5 minutes of 20%, at 47.5 minutes of 39%, and at 59.5 minutes of 52%. NM/Gastric Emptying Study IMPRESSION: Normal semi solid phase gastric emptying. Reading Location: [place] [id number]
== END | disposition home or self-care (01) ==
LOC: NM 12:19
PROVIDERS: PCP Internal Medicine
DX: R11.0 Nausea (principal); R13.10 Dysphagia, unspecified; K58.0 Irritable bowel syndrome with diarrhea; R10.30 Lower abdominal pain, unspecified
CPT/HCPCS: 78264; A9541

== ENCOUNTER 2025-06-07 07:31 | Day surgery (SDC) | payer OTHER, SELFPAY ==
[2025-06-07] MEDS: Lidocaine Jelly 2% 20 ML Syringe (URO-JET) 1 APPLIC (08:00)
[2025-06-07 08:20] VITALS: BP 127/83; PULSE 66; TEMP 36.4; O2SAT 97
== END 2025-06-07 08:15 | disposition home or self-care (01) ==
PROVIDERS: PCP Internal Medicine; Referring Provider Internal Medicine; Visit Provider Internal Medicine Gastroenterology
PROC: F00ZJWZ Instrumental Swallowing and Oral Function Assessment using Swallowing Equipment (ICD-10-PCS; CPT 43235; principal; 2025-06-07 07:25)
DX: K22.4 Dyskinesia of esophagus (principal); R10.30 Lower abdominal pain, unspecified; K58.0 Irritable bowel syndrome with diarrhea; R13.10 Dysphagia, unspecified; R11.0 Nausea
CPT/HCPCS: 91010

== ENCOUNTER → 2025-08-13 | Outpatient (CLI) | payer OTHER, SELFPAY ==
--- NOTE | 2025-08-13 15:00 | BI_ITS ---
EXAM: SCRN MAMM (CAD)W/KRISTY BILAT DATE: 08/13/2025 CLINICAL HISTORY: F, Age 60 y/o , SCREENING BILAT MAMMOGRAM TECHNIQUE: Procedure Code: [id number] Modality: MG Procedure: SCRN MAMM (CAD)W/KRISTY BILAT COMPARISON: Prior exam(s) were compared FINDINGS: TISSUE DENSITY: The breasts are heterogeneously dense, which may obscure small masses. Bilateral Breast Mammographic Findings: No significant masses, calcifications or other abnormalities are identified. BI/SCRN MAMM (CAD)W/KRISTY BILAT IMPRESSION: No mammographic evidence of malignancy in either breast. OVERALL FINAL ASSESSMENT BI-RADS 1: NEGATIVE. RECOMMENDATION: Routine annual follow-up in 1 Year Additional Recommendation none A letter with findings and recommendations will be mailed to the patient. Reading Location: [id number]
--- NOTE | 2025-08-13 15:21 | CT_ITS ---
PROCEDURE: ABDOMEN/PELVIS WITH CONTRAST 08/13/2025 REASON FOR EXAM: CT ABDOMEN AND PELVIS W/CONTRAST - WEIGHT LOSS, ABD PAIN TECHNIQUE: Procedure Code: [id number] Modality: CT Procedure: ABDOMEN/PELVIS WITH CONTRAST Coronal and Sagittal reconstruction series were provided. CONTRAST: VOLUME: mL One or more dose reduction techniques were used (e.g., Automated exposure control, adjustment of the mA and/or kV according to patient size, use of iterative reconstruction technique. COMPARISON: 05/11/2021. FINDINGS: The visualized lung bases are clear. Incompletely imaged bilateral breast implants. The pancreas, spleen, adrenal glands, kidneys, and urinary bladder appear unremarkable. Cholecystectomy, unchanged. A subcentimeter low-density focus is noted in the anteromedial aspect of the right lobe of the liver (series 2, image 29), unchanged and probably represents a small cyst. Hysterectomy, unchanged. A very large amount of stool is noted throughout the colon. No evidence of a bowel obstruction. No bowel wall thickening. The appendix is visualized and unremarkable. No intraperitoneal free air or free fluid. No abdominal nor pelvic lymphadenopathy. No acute osseous abnormality. No acute fracture. CT/Abdomen/Pelvis WITH Contrast IMPRESSION: Very large amount of stool throughout the colon. Reading Location: [id number]
== END | disposition home or self-care (01) ==
LOC: OPBI 14:49
PROVIDERS: PCP Internal Medicine; Referring Provider Internal Medicine; Visit Provider Internal Medicine
DX: Z12.31 Encounter for screening mammogram for malignant neoplasm of breast (principal)
CPT/HCPCS: 74177; 77063; 77067; Q9967

== ENCOUNTER 2025-09-05 05:28 | Day surgery (SDC) | payer OTHER, SELFPAY ==
--- NOTE | 2025-09-03 15:10 | PAT.ANESEVAL ---
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 When Was Last Pacemaker Check QUESTION #4 FULL TEXT: You/Your Family Experience fever (hyperthermia) with Anesthesia Last Oral Intake Last Oral intake: Last Oral Intake NPO since Meds taken in AM with sips of water? Meds patient instructed to take am of surgery PONV PONV - international marketing executive: PONV - international marketing executive Female Yes 09/02/25 12:24 HX of Motion Sickness No 09/02/25 12:24 HX of N/V After Surgery Yes 09/02/25 12:24 Non-Smoker Yes 09/02/25 12:24 Duration of Surgery greater No 09/02/25 12:24 than 60 minutes Number of Risk Factors 3 09/02/25 12:24 PONV Score Moderate Risk 09/02/25 12:24 Height & Weight Height & Weight: Anesthesia: Height & Weight Height 5 ft 2 in 07/24/25 11:57 Respiratory Assessment Respiratory Assessment - international marketing executive: Respiratory Tract Infection Hx - international marketing executive Hx Respiratory Tract Infection No 09/02/25 12:24 STOP Sleep Apnea STOP Sleep Apnea - international marketing executive: STOP Sleep Apnea - international marketing executive Hx Hypertension No 09/02/25 12:24 Hx Sleep Apnea No 09/02/25 12:24 CPAP No 07/24/25 11:57 BIPAP No 07/24/25 11:57 Do you snore loudly (louder No 09/02/25 12:24 than talking or can be heard Do you often feel tired/ No 09/02/25 12:24 fatigued/ sleepy during daytime? Has anyone observed you stop No 09/02/25 12:24 breathing during sleep? STOP Results Negative 09/02/25 12:24 QUESTION #5 FULL TEXT : Do you snore loudly (louder than talking or can be heard through closed doors)? 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 Specify any problems Hx of Preganancy in last 3 No 09/02/25 12:24 Months Nurse Filling Out Transfusion [id number] 09/02/25 12:24 & Questions: Date: 09/02/25 09/02/25 12:24 Time: 09/02/25 12:24 Patient unable to answer at this time (ie. confused, unrespo /Reproduction History /Reproductive History - international marketing executive: /Reproductive Hx- international marketing executive Hx Now Gestational Age (in weeks): EDC: Hx Hx Para Hx Section SAB No 09/02/25 12:24 Does the father of the baby or his family experience fever w Father of the baby Malignant Hypertension history comment [facility] Medical History (Updated 09/02/25 @ 12:37 by Zeke García) Alcohol use PVC (premature ventricular contraction) Nausea IBS (irritable bowel syndrome) Intermittent lower abdominal pain Other urethral stricture, female Urinary tract infection Urinary tract infection Wears contact lenses Migraine headache Injury of head and neck Gastric reflux Non-smoker Asthma History of echocardiogram History of stress test Cardiology follow-up encounter History of irregular heartbeat Uuzma-Iloblislw-Ukslp syndrome Abnormal Pap smear of cervix Home Medications Medication Instructions Recorded Last Taken Type trazodone 50 mg tablet 50 mg PO QHS PRN sleep 05/30/14 08/22/18 History rimegepant 75 mg disintegrating 75 mg PO PRN PRN MIGRAINES 05/21/21 Unknown History tablet (Nurtec ODT) phenazopyridine 100 mg tablet 100 mg PO TID PRN pain 6 doses #10 07/31/21 Unknown Rx (Pyridium) tabs dicyclomine 10 mg capsule 10 mg PO BID PRN abdominal pain 08/01/23 Unknown History fluticasone furoate 200 1 inh inhalation DAILY 08/01/23 Unknown History mcg/actuation blister powder for inhalation (Arnuity Ellipta) metoprolol succinate 25 mg 25 mg PO DAILY 08/01/23 Unknown History tablet,extended release 24 hr fexofenadine 180 mg tablet 180 mg PO Q24H 12/20/24 Unknown History gabapentin 100 mg capsule 300 mg PO QHS 12/20/24 Unknown History ipratropium bromide 21 mcg (0.03 2 spray intranasal BID 12/20/24 Unknown History %) nasal spray magnesium 250 mg tablet 250 mg PO QDAY 12/20/24 Unknown History montelukast 10 mg tablet 10 mg PO QDAY 12/20/24 Unknown History primidone 50 mg tablet 50 mg PO BID 12/20/24 Unknown History tizanidine 4 mg capsule 4 mg PO QHS PRN muscle spasticity 12/20/24 Unknown History tramadol 50 mg tablet 50 mg PO QDAY 12/20/24 Unknown History ondansetron HCl 4 mg tablet 4 mg PO Q8H PRN nausea and 05/07/25 Unknown Rx vomiting #45 tabs estradiol 10 mcg vaginal tablet 10 mcg vaginal 2XW #30 tabs 07/18/25 Unknown Rx (Vagifem) estradiol 0.025 mg/24 hr 1 patch topical [place] 09/02/25 Unknown History semiweekly transdermal patch pantoprazole 40 mg tablet,delayed 40 mg PO BID 09/02/25 Unknown History release (Protonix) Allergy/AdvReac Type Severity Reaction Status Date / Time citalopram Allergy Intermediate Other Verified 09/02/25 12:16 2-octyl cyanoacrylate (octyl Allergy Hives Verified 09/02/25 12:16 2-cyanoacrylate) Tetracyclines Allergy Unknown Verified 09/02/25 12:16 propranolol AdvReac Other Verified 09/02/25 12:16 Family History Uncle Brain cancer Lung cancer Grandfather Heart disease Colon cancer Surgical History (Updated 09/02/25 @ 12:37 by Zeke García) H/O neck surgery H/O: S/P colonoscopy S/P endoscopy History of cardiac catheterization History of cardiac radiofrequency ablation Hx of colonoscopy Hx laparoscopic cholecystectomy History of endometrial ablation S/P laparoscopic assisted vaginal hysterectomy (LAVH) S/P oophorectomy S/P tonsillectomy and adenoidectomy S/P breast augmentation S/P Social History number of children: 3 current occupational status: employed 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 Normal sinus rhythm. Possible left atrial enlargement. 06/27/2017. Normal sinus rhythm. Janai-Wfzmqwghj-Yoxtd. Echo (EF%) pertinent findings: June 06, 2024. EF of 59%. No aortic valve stenosis. Consult pertinent findings: 08/19/2025. Dr. Green. 1. 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 2. Atrial tachycardia and palpitations. Continue metoprolol 25 mg daily. Dose may be adjusted to 50 mg depending on symptoms. Latest echo on June 06 showed normal heart function and normal EF and no significant valve disease. Repeat echo in 2 years. Recommendation Anesthesia Recommendation Anesthesia recommendation: OPTIMIZED for anesthesia
[2025-09-05] VITALS (8 sets, daily range): BP systolic 87–153; BP diastolic 49–91; PULSE 56–74; RESP 16–18; TEMP 36.1–36.4; O2SAT 100; BMI 23.6
--- OUTSIDE RECORDS SUMMARY | 2025-09-05 05:33 | XMS RPT_ITS | CCD ---
Author Organization [facility] Care Team Providers Care Accounts Adjustable Clerk Name Role Phone Carolina PEÑA, Tootie Lux Unavailable [phone] VINCENT Clarke RN, Kimber Rizvi Unavailable Unavailjennifer e Codie Prater N Unavailable Prater, Codie N Unavailable Josi Codie N Unavailable Prater, Codie N Unavailable Andrew Atkins Unavailable ALBINA LUONG Unavailable Unavailable ANDREW GONZALEZ Unavailable Unavailable IMCA Unavailable Unavailable SCHWEIKERZelalem, ALBINA A Unavailable Unavailable CARLOS, ANDREW S Unavailable Unavailable SCHWEIKERT, ALBINA A Unavailable Unavailable MAMTA SHI Unavailable Unavailable ANDREW GONZALEZ S Unavailable Unavailable DUVALL, MATHIEU Unavailable Unavailable DUVALLLY MONTAÑOEN Unavailable Unavailable ANDREW GONZALEZ S Unavailable Unavailable SCHWEIKERT, ALBINA A Unavailable Unavailable SCHWEIKERT, ALBINA A Unavailable Unavailable CARLOS, ANDREW S Unavailable Unavailable SCHWEIKERT, ALBINA A Unavailable Unavailable CARLOS, ANDREW S Unavailable Unavailable CARLOSANDREW S Unavailable Unavailable PATRICE PIERCE Unavailable Unavailable ANDREW GONZALEZ Unavailable Unavailable VINCENT Clarke RN, Kimber Rizvi Unavailable Unavailjennifer Carter KNUCKLE STRAP SEWER-ASBESTOS MICROSCOPIST, Cindy Unavailable [phone] Carlos PEÑA, Andrew Martinez Primary Care Provider Albina Luong MD Unavailable Lamont Michel DO Unavailable Jose Angel Coker DO Unavailable Wilcox, Scot D Unavailable Andrew Gonzalez MD Primary Care Provider Albina Luong MD Unavailable Michel DO, Lamont P Unavailable Umbel DO, Jose Angel Unavailable Wilcox, Scot D Unavailable Andrew Gonzalez MD Primary Care Provider Umbel DO, Jose Angel Unavailable Wilcox, Scot D Unavailable Carlos PEÑA, Andrew Martinez Primary Care Provider Albina Luong MD Unavailable Michel DO, Lamont P Unavailable Umbel DO, Jose Angel Unavailable Wilcox, Scot D Unavailable Wilcox, Scot D Unavailable Albina Luong MD Unavailable Michel DO, Lamont P Unavailable Umbel DO, Jose Angel Unavailable Wilcox, Scot D Unavailable Dr. Andrew Gonzalez Primary Care Provider Dr. Andrew Gonzalez Referring Provider Dr. Tootie Figueroa Attending Provider Albina Farrell Unavailable [facility] DO James Primary Care Provider Dr. Andrew Gonzalez Primary Care Provider Dr. Andrew Gonzalez Referring Provider [phone] TANISHA Rivas Attending Provider [facility] DO James Primary Care Provider [facility], JAMES Primary Care Unavailable FALTAY, DEVEN B Referring Unavailable [facility] JAMES Primary Care Unavailable FALTAY, DEVEN B Referring Unavailable Umbel DO, Jose Angel Unavailable Sean PEÑA, Deven B Unavailable Andrew Gonzalez MD Primary Care Provider Jean Wilcox Unavailable Cecilio KNUCKLE STRAP SEWER.ASBESTOS MICROSCOPISTLucio Unavailable Jagdish KNUCKLE STRAP SEWER.ASBESTOS MICROSCOPIST, Dulce N Unavailable Molina SAMPSON, Dr. Forman Primary Care Provider [phone] Fast DO, Dr. Forman Attending Provider [phone] Fast DO, Dr. Forman Referring Provider [phone] Victorino PEÑA, Dr. Fowler Attending Provider Victorino PEÑA, Dr. Fowler Referring Provider Lucio WAREHOUSE MAN-C, Kassie Attending Provider [phone] Lucio WAREHOUSE MAN-C, Kassie Referring Provider [phone] Molina SAMPSON, Dr. Forman Primary Care Provider [phone] Fast , Dr. Forman Referring Provider [phone] William WAREHOUSE MAN-CRosalie Attending Provider William WAREHOUSE MAN-C, Rosalie Referring Provider Colby PEÑA, Dr. Sandoval Attending Provider [phone] Sean PEÑA, Deven B Unavailable Cecilio KNUCKLE STRAP SEWER.ASBESTOS MICROSCOPISTLucio Unavailable [phone] Jagdish KNUCKLE STRAP SEWER.[facility], Dulce N Unavailable Sean PEÑA, Deven B Unavailable Molina SAMPSON, Dr. Forman Primary Care Provider [phone] Lucio WAREHOUSE MAN-C, Kassie Attending Provider [phone] Pushpa PEÑA, Dr. Santo Attending Provider Molina SAMPSON, Dr. Forman Referring Provider [phone] Molina SAMPSON, Dr. Forman Primary Care Provider [phone] Dr. Hansa Barrow MD Attending Provider Lucio WAREHOUSE MAN-C, Kassie Attending Provider Victorino PEÑA, Dr. Fowler Attending Provider Victorino PEÑA, Dr. Fowler Referring Provider Molina SAMPSON, Dr. Forman Primary Care Provider [phone] Lucio WAREHOUSE MAN-C, Kassie Referring Provider Michel DO, Lamont P Unavailable Jagdish KNUCKLE STRAP SEWER.ASBESTOS MICROSCOPIST, Dulce N Unavailable Augie SAMPSON, Dr. Jerome Attending Provider Molina SAMPSON, Dr. Forman Primary Care Physician Colby PEÑA, Dr. Sandoval Attending Physician Pushpa PEÑA, Dr. Santo Attending Physician Lucio WAREHOUSE MAN-C, Kassie Attending Physician Victorino PEÑA, Dr. Fowler Attending Physician Augie SAMPSON, Dr. Jerome Attending Physician NANCY, JAMES Referring Unavailable NANCY, JAMES Primary Care Unavailable MICHEL, LAMONT P Referring Unavailable NANCY, JAMES Primary Care Unavailable NAJORDYN WELLSINE Attending Unavailable FALTAY, DEVNE B Attending Unavailable NANCY, JAMES Primary Care Unavailable NANCY, JAMES Primary Care Unavailable NANCY, JAMES Attending Unavailable NANCY, JAMES Primary Care Unavailable NOEMI, ROSA Referring Unavailable MICHEL, LAMONT P Referring Unavailable NANCY, JAMES Primary Care Unavailable NAJDOVSKI, SHARRON Attending Unavailable NANCY, JAMES Primary Care Unavailable NAJDOVSKI, SHARRON Attending Unavailable MICHEL, LAMONT P Referring Unavailable FALTAY, DEVEN B Attending Unavailable NANCY, JAMES Primary Care Unavailable NANCY, JAMES Primary Care Unavailable NANCY, JAMES Referring Unavailable NANCY, JAMES Primary Care Unavailable NANCY, JAMES Attending Unavailable NANCY, JAMES Primary Care Unavailable FALJASIEL, DEVEN B Referring Unavailable NAJDOVSKJORDYN BerryINE Attending Unavailable NANCY, JAMES Primary Care Unavailable NANCY, JAMES Attending Unavailable Fast, Dasia Primary Care Unavailable Fast, Dasia Referring Unavailable Friend, Justus Attending Unavailable Fast, Dasia Primary Care Unavailable Fast, Dasia Referring Unavailable Fast, Dasia Attending Unavailable William, Rosalie Referring Unavailable William, Rosalie Attending Unavailable Fast, Dasia Primary Care Unavailable Fast, Dasia Primary Care Unavailable Fast, Dasia Referring Unavailable Friend, Justus Attending Unavailable Fast, Dasia Primary Care Unavailable Colby, Jaime Attending Unavailable Fast, Dasia Primary Care Unavailable Colby, [place] Attending Unavailable Fast, Dasia Referring Unavailable Valdes, Kassie Attending Unavailable Fast, Dasia Primary Care Unavailable Valdes, Kassie Attending Unavailable Valdes, Kassie Referring Unavailable Fast, Dasia Primary Care Unavailable Fast, Dasia Referring Unavailable Fast, Dasia Primary Care Unavailable Valdes, Kassie Attending Unavailable Fast, Dasia Referring Unavailable Fast, Dasia Attending Unavailable Fast, Dasia Primary Care Unavailable Malcolm Gleason Referring Unavailable Malcolm Gleason Attending Unavailable Fast, Dasia Primary Care Unavailable Valdes, Kassie Attending Unavailable Fast, Dasia Primary Care Unavailable Valdes, Kassie Referring Unavailable Friend, Justus Attending Unavailable Fast, Dasia Primary Care Unavailable Fast, Dasia Referring Unavailable Friend, Justus Attending Unavailable Fast, Dasia Primary Care Unavailable Malcolm Gleason Referring Unavailable Malcolm Gleason Attending Unavailable Fast, Dasia Primary Care Unavailable Fast , Dr. Forman Primary Care Physician Fast Dr. Dasia SAMPSON Referring Provider Kassie Ceballos Attending Physician Dr. Malcolm Gleason MD Attending Physician Dr. Malcolm Gleason MD Referring Provider [phone] Lucio WAREHOUSE MAN-CKassie Referring Provider Friend Dr. Justus SAMPSON Attending Physician [phone] Dr. Jaime Bowman MD Attending Physician Fast Dr. Dasia SAMPSON Attending Physician [phone] Allergies Allergy Classification Reported Allergen(s) Allergy Type Date of Onset Reaction(s) Facility Propranolol (1 source) Propranolol Drug Allergy 01-26-20 07 Mental Status Change [facility] Serotonin Reuptake Inhibitors (SSRIs) (1 source) Citalopram Drug Allergy 09-07-20 17 Other: See Comments [facility] Tetracyclines (antibiotic) (1 source) Tetracycline Drug Allergy 09-08-20 05 GI Upset [facility] (11 sources) pneumococcal capsular polysaccharide type 1 vaccine / pneumococcal capsular polysaccharide type 10a vaccine / pneumococcal capsular polysaccharide type 11a vaccine / pneumococcal capsular polysaccharide type 12f vaccine / pneumococcal capsular polysacchar drug allergy 06-03-20 17 [facility] (11 sources) propranolol drug allergy 06-03-20 17 [facility] (11 sources) tetracycline drug allergy 06-03-20 17 [facility] (20 sources) Citalopram; Translations: [CITALOPRAM] Drug Allergy 09-07-20 17 Other: See Comments [facility] (20 sources) Dust; Translations: [DUST] Propensity to adverse reactions (disorder) 09-08-[address] [facility] (20 sources) Mold Extract; Translations: [MOLD] Drug Allergy 09-08-20 05 Other: See Comments [facility] (20 sources) Pneumococcal vaccine; Translations: [PNEUMOCOCCAL 23-DAWIT PS VACCINE] Drug Allergy 11-20-[address] [facility] (20 sources) Pollen; Translations: [POLLEN] Propensity to adverse reactions (disorder) 09-08-[address] [facility] (20 sources) Propranolol; Translations: [PROPRANOLOL] Drug Allergy 01-26-20 07 Mental Status Change [facility] Rep[facility] Comment on above: MENTAL STATUS CHANGE S (20 sources) Tetracycline; Translations: [TETRACYCLINE] Drug Allergy 09-08-20 [address] GI [address]ps[address] [facility] (20 sources) ENBUCRILATE; Translations: [ENBUCRILATE] Propensity to adverse reactions (disorder) 12-28-[address] [facility] (20 sources) SMOKE; Translations: [SMOKE] Propensity to adverse reactions (disorder) 09-08-[address] [facility] (1 source) House dust mite; Translations: [DUST MITES] allergy to substance 02-17-20 [facility] Work Phone: (1 source) [employer]; Translations: [ANIMALS] allergy to substance 02-17-20 21 [facility] Work Phone: (20 sources) Pneumococcal vaccine Drug Allergy 10-19-19 Other: See Comments [facility] Work Phone: (1 source) EMBUCRILATE drug allergy 02-17-20 stomach upset and cramping [facility] Work Phone: (1 source) PROPANOLOL drug allergy 02-17-20 mood changes [facility] Work Phone: (1 source) ADHESIVE GLUE; Translations: [ADHESIVE GLUE] allergy to substance 05-12-20 rash [facility] Work Phone: (1 source) WOOL; Translations: [WOOL] allergy to substance 02-17-20 [facility] Work Phone: (1 source) PLANT POLLEN; Translations: [PLANT POLLEN] allergy to substance 02-17-20 hya fever [facility] Work Phone: (20 sources) Octyl 2-Cyanoacrylate Drug Allergy 05-25-20 21 Hives, Rash [facility] Work Phone: Comment on above: DERMABOND, ALSO RASH AND BLISTERING (11 sources) Tetracyclines Allergy to substance 09-10-20 Unknown [facility] (3 sources) 2-OCTYL CYANOACRYLATE; Translations: [2-OCTYL CYANOACRYLATE] Propensity to adverse reactions to drug (disorder) 05-25-20 21 [facility] Other [place] [facility] (1 source) Tetracyclines Drug allergy (disorder) 05-07-20 25 [facility] Rep[facility] Medications Current Medications Medication Drug Class(es) Dates Sig (Normalized) Sig (Original) amoxicillin 875 mg / clavulanate 125 mg oral tablet (1 source) Penicillin-class Antibacterial Start: 01-02-2024 End: 01-09-2024 take 1 tablet by mouth twice daily amoxicillin-clav ulanate potassium (AUGMENTIN) 875-125 mg per tablet Take 1 tablet by mouth two times a day for 7 days. 14 tablet 0 01/02/2024 01/09/2024 Active Comment on above: Take 1 tablet by larry two times a day for 7 days. azelastine hydrochloride 0.137 mg/actuat metered dose nasal spray (20 sources) Histamine-1 Receptor Antagonist Start: 05-09-2024 End: 05-03-2025 take 2 spray(s) nasal route twice daily azelastine 0.1% nasal spray Use 2 sprays in each nostril two times a day. 90 mL 3 05/03/2025 Active cephalexin 250 mg oral capsule (20 sources) Cephalosporin Antibacterial Start: 10-19-2023 take 1 capsule by mouth once daily as needed cephALEXin (KEFLEX) 250 mg capsule Take 250 mg by mouth once daily as needed (after intercourse). 10/19/2023 Active Start: 04-21-2020 End: 03-30-2021 take 1 capsule by mouth once daily Cephalexin (Keflex) 500 mg capsule Discontinued 500 mg PO daily 30 6 April 20, 2020 11:00pm March 30, 2021 7:11am take daily after completing course of acute therapy Start: 08-30-2018 End: 04-21-2020 take 1 capsule by mouth four times daily Cephalexin 500 MG capsule Discontinued 500 mg PO 4 TIMES DAILY 40 0 August 30, 2018 12:00am April 21, 2020 2:12pm Start: 11-20-2017 End: 08-21-2018 take 1 capsule by mouth every six hours Cephalexin 500 mg capsule Discontinued 500 mg PO EVERY 6 HOURS 28 0 February 08, 2018 8:56am August 21, 2018 3:36pm Comment on above: Take 250 mg by mouth once daily as needed (after intercourse). codeine phosphate 2 mg/ml / guaiFENesin 20 mg/ml oral solution (20 sources) Opioid Agonist Start: 10-19-2024 codeine-guaiFENesin (ROBITUSSIN AC) 10-100 mg/5 mL syrup 10/19/2024 Active Start: 10-06-2022 End: 10-11-2022 take 5-10 mL by mouth every six hours as needed for cough and cough codeine-guaiFENesin (ROBITUSSIN AC) 10-100 mg/5 mL syrup Indications: Acute cough Take 5-10 mL by mouth four times daily as needed for cough for up to 5 days. May cause drowsiness. 120 mL 0 10/06/2022 10/11/2022 Active End: 12-27-2022 take 5 mL by mouth every eight hours as needed codeine-guaiFENesin (GUAIFENESIN AC) 10-100 mg/5 mL syrup Take 5 mL by mouth three times daily as needed. 0 12/27/2022 Discontinued Comment on above: Take 5-10 mL by mout h four times daily as needed for cough for up to 5 days. May cause drowsiness. Take 5 mL by mouth t hree times daily as needed. diclofenac sodium 75 mg delayed release oral tablet (3 sources) Nonsteroidal Anti-inflammatory Drug Start: 06-25-20 End: 07-09-20 24 take 1 tablet by mouth twice daily for pain diclofenac, EC, (VOLTAREN) 75 mg EC tablet Indications: Pain of left hip , Acetabular labrum tear, right, initial encounter Take 1 tablet by mouth two times a day for 14 days. for pain. 28 tablet 06/25/2024 07/09/2024 Active dicyclomine hydrochloride 10 mg oral capsule (20 sources) Anticholinergic Start: 09-30-20 End: 01-27-20 take 1 capsule by mouth three times daily dicyclomine (BENTYL) 10 mg capsule Indications: Irritable bowel syndrome with both constipation and diarrhea Take 1 capsule by mouth three times daily. 90 capsule 2 01/26/2023 Active Start: 06-14-2022 End: 09-12-2022 take 1 capsule by mouth three times daily dicyclomine (BENTYL) 10 mg capsule Take 1 capsule by mouth three times daily. 90 capsule 2 06/14/2022 09/12/2022 Active Start: 10-05-2021 End: 2022 take 1 capsule by mouth three times daily dicyclomine (BENTYL) 10 mg capsule take 1 capsule by mouth three times a day if needed 60 capsule 2 04/29/2022 2022 Discontinued Start: 05-21-2021 End: 08-01-2023 take 1 capsule by mouth twice daily as needed Start: 02-16-2021 DICYCLOMINE HC L 20 MG TABS 1 tablet dicyclomine [id number] Becka Allen LPN Comment on above: Take 1 capsule by mo uth three times daily as needed. take 1 capsule by mo uth three times a day if needed Take 1 capsule by mo uth three times daily. take 1 capsule by mo uth three times a day DULoxetine 20 mg delayed release oral capsule (11 sources) Serotonin and Norepinephrine Reuptake Inhibitor Start: take 1 capsule by mouth once daily in the morning DULoxetine (CYMBALTA) 20 mg capsule Take 20 mg by mouth every morning. 01/02/2025 Active estradiol 0.01 mg vaginal insert (20 sources) Estrogen Start: Start: 04-26-2025 Start: 04-26-2025 Estradiol (Imv exxy Maintenance Pack) 10 mcg insert Active 10 ug VAGINAL TWICE A WEEK 8 April 26, 2025 12:36pm Complies with drug therapy Start: 04-26-2025 Estradiol (Imv exxy Maintenance Pack) 10 mcg insert Active 10 ug VAGINAL TWICE A WEEK 8 April 26, 2025 12:36pm Start: 12-20-2024 End: 04-26-2025 Estradiol (Imvexxy Maintenan ce Pack) 10 mcg insert Discontinued 10 ug VAGINAL TWICE A WEEK December 19, 2024 11:00pm April 26, 2025 11:37am Start: 12-20-2024 End: 04-26-2025 Estradiol (Imvexxy Maintenan ce Pack) 10 mcg insert Discontinued 10 ug VAGINAL TWICE A WEEK December 20, 2024 12:00am April 26, 2025 12:37pm Start: 12-20-2024 Estradiol (Imv exxy Maintenance Pack) 10 mcg insert Active 10 ug VAGINAL TWICE A WEEK December 20, 2024 12:00am Start: 10-31-2024 Estradiol (VAG IFEM) 10 mcg vaginal tablet INSERT 1 TABLET VAGINALLY TWICE EVERY 7 DAYS 10/31/2024 Active Start: 05-21-2024 IMVEXXY MAINTE NANCE PACK 10 mcg inst INSERT 1 TABLET VAGINALLY 2 TIMES A WEEK 05/21/2024 Active Start: 05-21-2024 IMVEXXY MAINTE NANCE PACK 10 mcg inst INSERT 1 TABLET VAGINALLY 2 TIMES A WEEK 05/21/2024 Active Start: 03-23-2024 End: 05-25-2024 Estradiol (VAGIFEM) 10 mcg v aginal tablet insert 1 tablet vaginally ONCE DAILY - 2 TIMES PER WEEK 03/23/2024 05/25/2024 Discontinued (Other) Start: 12-27-2023 End: 08-02-2024 Estradiol 0.025 mg/24 hr pat ch semiweekly Discontinued 1 NMA TOPICAL TWICE A WEEK 8 August 02, 2024 2:43pm August 02, 2024 3:14pm Start: 07-14-2021 End: 04-13-2022 estradiol (ESTRACE) 0.01 % ( 0.1 mg/gram) vaginal cream apply 0.5 grams vaginally every week for 3 MONTHS 0 07/14/2021 04/13/2022 Discontinued Start: 05-06-2021 End: 08-16-2022 apply 1 dose topically two times weekly Estradiol 0.025 mg/24 hr patch semiweekly Discontinued 1 NMA TD SUWE 8 July 31, 2021 11:41am August 16, 2022 10:17am 1 patch Topical twice a week; Start: 08-30-2018 End: 05-06-2021 apply 1 dose topically two times weekly Estradiol 0.025 mg/24 hr patch semiweekly Discontinued 1 NMA TOPICAL SUWE 8 January 28, 2020 2:15pm April 21, 2020 2:34pm 1 patch Topical twice a week; Start: 08-21-2018 End: 04-21-2020 Estradiol (Estrace) 0.01 % ( 0.1 mg/gram) cream Discontinued 0 VAGINAL .COMPLEX 42.5 3 August 21, 2018 12:00am April 21, 2020 2:13pm use fingertip amount or 1-2g every night vaginally x 2 weeks, then 1-3x weekly for maintenance Start: 08-21-2018 End: 04-21-2020 Estradiol (Estrace) 0.01 % ( 0.1 mg/gram) cream Discontinued 0 VAGINAL .COMPLEX 42.5 August 21, 2018 1:00am April 21, 2020 3:13pm use fingertip amount or 1-2g every night vaginally x 2 weeks, then 1-3x weekly for maintenance Start: 07-19-2018 End: 08-21-2018 apply 1 dose topically two times weekly Estradiol 0.025 mg/24 hr patch semiweekly Discontinued 1 NMA TOPICAL .COMPLEX 24 2 July 19, 2018 1:30pm August 21, 2018 4:10pm 1 patch Topical twice a week; Start: 07-19-2018 End: 12-27-2023 apply 1 dose transdermal route two times weekly Estradiol 0.025 mg/24 hr patch semiweekly Discontinued 0 .ROUTE .COMPLEX 8 4 December 13, 2022 10:46am August 01, 2023 12:36pm apply 1 patch topically two times a week Start: 11-20-2017 End: 07-19-2018 Estradiol 1 EACH patch semiw eekly Discontinued 1 NMA TOPICAL SUWE November 20, 2017 12:00am July 19, 2018 1:31pm Start: 11-20-2017 End: 07-19-2018 Estradiol Discontinued 1 PAT CH TOPICAL SUWE November 20, 2017 1:00am July 19, 2018 2:31pm Start: 07-01-2017 VIVELLE-DOT 0. 025 MG/24HR PTTW twice weekly transdermally ESTRADIOL [id number] Tootie Figueroa MD Start: 07-01-2017 VIVELLE-DOT 0. 025 MG/24HR PTTW twice weekly transdermally ESTRADIOL [id number] Tootie Figueroa MD Start: 06-03-2017 End: 07-01-2017 ESTRING 2 MG RING vaginally insert every 3 months ESTRADIOL [id number] Tootie Figueroa MD Start: 06-03-2017 End: 07-01-2017 ESTRING 2 MG RING vaginally insert every 3 months ESTRADIOL [id number] Tootie Figueroa MD estradiol (NOBLE , VIVELLE-DOT) 0.025 mg/24 hr 1 Patch every Tuesday and Tuesday. Active Comment on above: 1 Patch every Tuesday and Tuesday. apply 0.5 grams vagi diya every week for 3 MONTHS fexofenadine hydrochloride 180 mg oral tablet (20 sources) Histamine-1 Receptor Antagonist Start: 12-20-2024 take 1 tablet by mouth every twenty-four hours Start: 11-23-2023 End: 02-11-2025 take 1 tablet by mouth once daily fexofenadine (LAURA ALLERGY) 180 mg tablet Take 1 tablet by mouth once daily. 90 tablet 3 02/11/2025 Active Comment on above: Take 1 tablet by larry once daily. 30 actuat fluticasone furoate 0.2 mg/actuat dry powder inhaler (20 sources) Corticosteroid Start: 10-30-19 End: 05-03-20 take 1 puff(s) by inhalation once daily ARNUITY ELLIPTA 200 mcg/actuation inhaler Inhale 1 puff as instructed once daily. 90 each 3 05/03/2025 Active Start: 08-01-2023 take 200 ug by inhal ation once daily Start: 08-01-2023 take 200 ug by inhal ation once daily Fluticasone Furoate (Arnuity Ellipta) 200 mcg/actuation blister with device Active 1 NMA INHALATION DAILY August 01, 2023 12:00am Complies with drug therapy Start: 08-01-2023 take 200 ug by inhal ation once daily Fluticasone Furoate (Arnuity Ellipta) 200 mcg/actuation blister with device Active 1 NMA INHALATION DAILY August 01, 2023 12:00am Start: 08-01-2023 take 200 ug by inhal ation once daily Fluticasone Furoate (Arnuity Ellipta) 200 mcg/actuation blister with device Active 1 INH INHALATION DAILY August 01, 2023 12:00am Start: 08-01-2023 take 200 ug by inhal ation once daily Fluticasone Furoate (Arnuity Ellipta) 200 mcg/actuation blister with device Active 1 INH INHALATION DAILY July 31, 2023 11:00pm Start: 07-11-2023 End: 10-30-2024 take 1 puff(s) by mouth once daily ARNUITY ELLIPTA 200 mcg/actuation inhaler inhale 1 puff by mouth daily 07/11/2023 10/30/2024 Discontinued Start: 07-11-2023 take 1 puff(s) by mo [facility] once daily ARNUITY ELLIPTA 200 mcg/actuation inhaler inhale 1 puff by mouth daily 0 07/11/2023 Active Start: 06-01-2023 End: 03-24-2024 take 1 puff(s) by mouth twice daily fluticasone (FLOVENT HFA) 110 mcg/actuation inhaler Indications: Chronic cough , Mild intermittent asthma, unspecified whether complicated Inhale 1 Puff as instructed twice daily. Shake well before use. Rinse mouth after use. 1 Each 3 06/01/2023 03/24/2024 Discontinued Start: 12-27-2022 End: 06-09-2023 fluticasone propionate (XHAN CE) 93 mcg/actuation nasal spray Use 2 Sprays in the nose twice daily. 16 mL 11 12/27/2022 06/09/2023 Discontinued (Course of therapy completed) Start: 05-21-2021 End: 07-31-2021 Fluticasone Propionate 50 mcg/actuation spray,suspension Discontinued 2 NMA INTRANASAL DAILY May 20, 2021 11:00pm July 31, 2021 11:21am Start: 05-21-2021 End: 07-31-2021 Fluticasone Propionate Discontinued 2 SPRAY INTRANASAL DAILY May 21, 2021 12:00am July 31, 2021 12:21pm Start: 04-30-2021 End: 10-20-2023 XHANCE 93 mcg/actuation nasa l spray 04/30/2021 10/20/2023 Discontinued (Other) Start: 02-16-2021 take 2 spray(s) nasa l route once daily XHANCE 93 MCG/ACT EXHU 2 spray into both nostrils once a day fluticasone propionate [id number] Becka Allen LPN Start: 06-03-2017 FLONASE 50 MCG /ACT SUSP FLUTICASONE PROPIONATE [id number] Sandra Christopher Start: 06-03-2017 FLONASE 50 MCG /ACT SUSP FLUTICASONE PROPIONATE [id number] Sandra Christopher Comment on above: Use 2 Sprays in the nose twice daily. Inhale 1 Puff as ins tructed twice daily. Shake well before use. Rinse mouth after use. inhale 1 puff by larry th daily gabapentin 100 mg oral capsule (20 sources) Anti-epileptic Agent Start: 12-20-2024 take 1 capsule by mouth twice daily Start: 05-09-2024 End: 05-03-2026 take 2 capsules by mouth once daily at bedtime gabapentin (NEURONTIN) 100 mg capsule Take 2 capsules by mouth daily at bedtime. 180 capsule 3 05/03/2025 05/03/2026 Active Start: 02-24-2024 End: 05-25-2024 take 1 capsule by mouth twice daily gabapentin (NEURONTIN) 100 mg capsule Take 1 capsule by mouth two times a day for 30 days. 60 capsule 02/24/2024 05/25/2024 Discontinued (Other) Start: 12-09-2023 End: 02-07-2024 take 1 capsule by mouth twice daily gabapentin (NEURONTIN) 100 mg capsule Take 1 capsule by mouth two times a day for 60 days. 60 capsule 1 12/09/2023 Active Start: 07-20-2017 take 1 capsule by mo [facility] three times daily GABAPENTIN 100 MG CAPS 1 po tid GABAPENTIN [id number] Andrew Atkins Comment on above: Take 1 capsule by [facility] two times a day for 60 days. ipratropium bromide 0.021 mg/actuat metered dose nasal spray (20 sources) Anticholinergic Start: 12-20-2024 Start: 10-30-2024 End: 05-03-2025 Ipratropium [place] (ATROVEN T) 21 mcg (0.03 %) nasal spray Use 2 sprays in the nose three times a day. 90 mL 3 05/03/2025 Active Start: 05-21-2024 End: 10-30-2024 take 2 spray(s) nasal route three times daily Ipratropium [place] (ATROVENT) 21 mcg (0.03 %) nasal spray INHALE 2 SPRAYS IN EACH NOSTRIL 3 TIMES A DAY 90 mL 3 06/25/2024 10/30/2024 Discontinued Start: 12-07-2023 End: 05-03-2025 ipratropium bromide (ATROVEN T) 42 mcg (0.06 %) nasal spray Use 2 sprays in the nose three times a day as needed. 90 mL 3 05/03/2025 Active Start: 11-23-2023 End: 05-21-2024 Ipratropium [place] (ATROVEN T) 21 mcg (0.03 %) nasal spray Use 2 Sprays in the nose three times a day. 30 mL 5 11/23/2023 05/21/2024 Discontinued Start: 02-16-2021 take 2 spray(s) nasa l route once daily IPRATROPIUM BROMIDE 0.06 % SOLN 2 spray into both nostrils once a day ipratropium bromide [id number] Becka Allen LPN Start: 12-11-2020 End: 01-11-2023 ipratropium bromide (ATROVEN T) 42 mcg (0.06 %) nasal spray instill 2 sprays into each nostril two to three times a day if ne... (REFER TO PRESCRIPTION NOTES). 0 12/11/2020 01/11/2023 Discontinued Comment on above: instill 2 sprays int o each nostril two to three times a day if ne... (REFER TO PRESCRIPTION NOTES). Use 2 Sprays in the nose three times a day. 200 actuat levalbuterol 0.045 mg/actuat metered dose inhaler (20 sources) beta2-Adrenergic Agonist Start: 04-03-2024 levalbuterol (XOPENEX) 1.25 mg/3 mL nebulizer solution Inhale 1 ampule via nebulizer 4x daily as needed. 04/03/2024 Active Start: 11-23-2023 End: 05-03-2025 take 1-2 puff(s) by inhalation every four hours as needed for wheezing levalbuterol tartrate HFA 45 mcg/actuation inhaler Inhale 1-2 puffs as instructed every 4 hours as needed for wheezing/shortness of breath. 45 g 3 05/03/2025 Active Comment on above: Inhale 1-2 Puffs as instructed every 4 hours as needed for wheezing/shortness of breath. Magnesium (8 sources) Start: 12-20-2024 take 1 tablet by mouth once daily Start: 12-20-2024 take 1 tablet by larry th once daily Magnesium 250 mg tablet Active 250 mg PO daily December 20, 2024 12:00am Complies with drug therapy Start: 12-20-2024 take 1 tablet by larry th once daily Magnesium 250 mg tablet Active 250 mg PO daily December 20, 2024 12:00am methylPREDNISolone (20 sources) Corticosteroid Start: 03-24-2024 End: 06-28-2024 methylPREDNISolone (MEDROL, DARÍO,) 4 mg Dose-Pack Indications: Mild persistent asthma with acute exacerbation As instructed per package 21 tablet 0 03/24/2024 03/30/2024 Active Start: 01-04-2023 End: 06-09-2023 methylPREDNISolone (MEDROL D OSE-PACK) 4 mg Dose-Pack use as directed FOLLOW DIRECTIONS ON BACK OF FOIL PACK 01/04/2023 06/09/2023 Discontinued (Course of therapy completed) Start: 01-04-2023 End: 06-09-2023 methylPREDNISolone (MEDROL D OSE-PACK) 4 mg Dose-Pack use as directed FOLLOW DIRECTIONS ON BACK OF FOIL PACK 0 01/04/2023 06/09/2023 Discontinued (Course of therapy completed) Start: 01-04-2023 methylPREDNISo lone (MEDROL DOSE-PACK) 4 mg Dose-Pack use as directed FOLLOW DIRECTIONS ON BACK OF FOIL PACK 0 01/04/2023 Active Start: 07-20-2017 METHYLPREDNISO LONE 4 MG TBPK take as directed METHYLPREDNISOLONE [id number] Andrew Atkins Comment on above: use as directed FOLL OW DIRECTIONS ON BACK OF FOIL PACK 24 hr metoprolol succinate 25 mg extended release oral tablet (20 sources) beta-Adrenergic [place] Start: 07-24-2024 take 1 tablet by mouth every hour metoprolol succinate ER (TOPROL XL) 25 mg 24 hr tablet Take 1 tablet by mouth every afternoon. 90 tablet 3 07/24/2024 Active Start: 10-20-2023 End: 07-24-2024 take 1 tablet by mouth once daily metoprolol succinate ER (TOPROL XL) 50 mg 24 hr tablet Take 1 tablet by mouth once daily. 90 tablet 2 10/20/2023 07/24/2024 Discontinued Start: 06-13-2023 take 1 tablet by larry th once daily Comment on above: Take 1 tablet by larry th once daily. montelukast 10 mg oral tablet (20 sources) Leukotriene Receptor Antagonist Start: 4 End: 5 take 1 tablet by mouth once daily Multivitamin With Folic Acid (3 sources) Start: 4 take 1 tablet by mouth once daily Multivitamin With Folic Acid Active 1 TABLET PO DAILY May 29, 2014 11:00pm Start: 05-30-2014 take 1 tablet by larry th once daily Multivitamin With Folic Acid Active 1 TABLET PO DAILY May 30, 2014 12:00am Multivitamin With Folic Acid 1 TABLET tablet (8 sources) Start: 05-30-2014 take 1 tablet by larry th once daily Start: 05-30-2014 take 1 tablet by larry th once daily Multivitamin With Folic Acid 1 TABLET tablet Active 1 {tbl} PO DAILY May 30, 2014 12:00am Complies with drug therapy Start: 05-30-2014 take 1 tablet by larry th once daily Multivitamin With Folic Acid 1 TABLET tablet Active 1 {tbl} PO DAILY May 30, 2014 12:00am Nebulizer and Compressor For Neb (PORTABLE NEBULIZER SYSTEM) (20 sources) Start: 05-09-2024 Nebulizer and Compressor For Neb (PORTABLE NEBULIZER SYSTEM) 1 Each every 4 hours as needed. 1 Each 3 05/09/2024 Active oxyCODONE hydrochloride 5 mg oral tablet (1 source) Opioid Agonist Start: 11-11-2021 End: 11-24-2021 take 1 tablet by mouth every eight hours as needed for pain OXYCODONE HCL 5 MG TABS Take 1 tablet by mouth every eight hours as needed for pain oxycodone [id number] Cindy Carter [employer]NU[employer]-ASBESTOS MICROSCOPIST phenazopyridine hydrochloride 100 mg oral tablet (20 sources) Start: 07-31-2021 take 1 tablet by mouth three times daily as needed for pain Start: 05-25-2021 End: 07-31-2021 take 1 tablet by mouth three times daily as needed for muscle spasms Phenazopyridine (Pyridium) 200 MG tablet Discontinued 200 mg PO 3 TIMES DAILY NEEDED as needed for Bladder Spasms 30 7 0 May 24, 2021 11:00pm July 31, 2021 11:21am Comment on above: Take 200 mg by mouth three times daily as needed for pain. Take 200 mg by mouth three times a day as needed for pain. prn predniSONE 20 mg oral tablet (8 sources) Start: 10-06-2022 End: 10-11-2022 take 2 tablets by mouth once daily predniSONE (DELTASONE) 20 mg tablet Indications: Acute cough Take 2 tablets by mouth once daily for 5 days. 10 tablet 0 10/06/2022 10/11/2022 Active End: 12-27-2022 take 2 tablets by mouth twice daily PREDNISONE ORAL Take 20 mg by mouth. 2 tabs by mouth twice daily for 5 days. 0 12/27/2022 Discontinued take 2 tablets by mo [facility] twice daily PREDNISONE ORAL Take 20 mg by mouth. 2 tabs by mouth twice daily for 5 days. 0 Active Comment on above: Take 2 tablets by mo uth once daily for 5 days. Take 20 mg by mouth. 2 tabs by mouth twice daily for 5 days. primidone 50 mg oral tablet (20 sources) Anti-epileptic Agent Start: 12-20-2024 take 1 tablet by mouth once take 0.25-0.5 tablet s by mouth four times daily primidone (MYSOLINE) 50 mg tablet Take 5 0 mg by mouth four times daily. Taking 1/4 to 1/2 tab currently Active RABEprazole sodium 20 mg del ayed release oral tablet (7 sources) Proton Pump Inhibitor Start: 07-30-2025 Start: 05-07-2025 End: 07-30-2025 Rabeprazole 20 mg tablet,del ayed release (DR/EC) Discontinued 20 mg PO TWICE A DAY 60 May 06, 2025 11:00pm July 30, 2025 10:16am Take 30minutes before eating breakfast and supper. rifAXIMin 550 mg oral tablet (6 sources) Rifamycin Antibacterial Start: 05-07-2025 take 1 tablet by mouth three times daily rimegepant 75 mg disintegrating oral tablet (20 sources) Start: 05-21-2021 End: 04-10-2025 Start: 05-21-2021 End: 01-15-2022 take 1 tablet by mouth once daily as needed rimegepant (NURTEC ODT) 75 mg disintegrating tablet Take 1 tablet by mouth once daily as needed. 8 tablet 11 10/13/2021 01/15/2022 Discontinued Comment on above: Take 1 tablet by larry once daily as needed. Take 1 dissolvable t ablet by mouth at migraine onset. May repeat once per 24 hours as needed. dissolve 1 tablet or ally AT ONSET OF MIGRAINE and may repeat ONCE PER 24 HOURS IF NEEDED tiZANidine 4 mg oral capsule (20 sources) Central alpha-2 Adrenergic Agonist Start: 12-20-2024 take 1 capsule by mouth at bedtime as needed Start: 10-27-2023 End: 01-16-2025 take 1 tablet by mouth every eight hours as needed tiZANidine (ZANAFLEX) 4 mg tablet Take 1 tablet by mouth every 8 hours as needed. prn 30 tablet 11 01/16/2025 Active Start: 12-30-2022 End: 04-19-2023 take 1 tablet by mouth at bedtime tiZANidine (ZANAFLEX) 4 mg tablet take 1 tablet by mouth at bedtime if needed 20 tablet 1 02/07/2023 04/19/2023 Discontinued Start: 04-13-2022 End: 11-16-2022 take 1 tablet by mouth at bedtime tiZANidine (ZANAFLEX) 4 mg tablet take 1 tablet by mouth at bedtime if needed 20 tablet 1 11/16/2022 Active Comment on above: Take 1 tablet by larry th three times daily. as needed Take 1 tablet by larry th at bedtime as needed. as needed take 1 tablet by larry th at bedtime if needed Take 1 tablet by larry th at bedtime as needed. Take 1 tablet by larry th every 8 hours as needed. prn traMADol hydrochloride 50 mg oral tablet (20 sources) Opioid Agonist Start: 12-20-2024 take 1 tablet by mouth once daily Start: 04-30-2024 End: 07-05-2025 take 1 tablet by mouth every twelve hours traMADol (ULTRAM) 50 mg tablet Indications: Tear of right acetabular labrum, initial encounter Take 1 tablet by mouth every 12 hours for 30 days. 60 tablet 06/05/2025 07/05/2025 Active Start: 03-27-2024 End: 04-26-2024 take 1 tablet by mouth twice daily as needed traMADol (ULTRAM) 50 mg tablet Indications: Tear of right acetabular labrum, initial encounter Take 1 tablet by mouth two times a day as needed for up to 30 days. 60 tablet 0 03/27/2024 04/26/2024 Active Start: 02-23-2024 End: 03-24-2024 take 1 tablet by mouth twice daily as needed for pain traMADol (ULTRAM) 50 mg tablet Indications: Tear of right acetabular labrum, initial encounter Take 1 tablet by mouth two times a day as needed for pain for up to 30 days. 60 tablet 0 02/23/2024 03/24/2024 Active Start: 02-16-2021 TRAMADOL HCL 5 0 MG TABS 1 tablet tramadol [id number] Becka Corsaro CONTROL TECHNICIAN traZODone hydrochloride 50 mg oral tablet (20 sources) Serotonin Reuptake Inhibitor Start: 02-16-2021 TRAZODONE HCL 50 MG TABS 1 tablet TRAZODONE HCL Becka Corsaro CONTROL TECHNICIAN Start: 06-03-2017 TRAZODONE HCL 50 MG TABS TRAZODONE HCL [id number] Sandra Christopher Start: 05-30-2014 End: 07-26-2024 take 1 tablet by mouth at bedtime Comment on above: take 1 and 1/2 table t by mouth at bedtime take 1 AND 1/2 table ts by mouth at bedtime TAKE 1 AND 1/2 TABLE TS BY MOUTH EVERY NIGHT AT BEDTIME zaleplon 10 mg oral capsule (11 sources) gamma-Aminobutyric Acid A Receptor Agonist Start: 12-06-2024 zaleplon (SONATA) 10 mg capsule bring to sleep study 12/06/2024 Active Completed/Discontinued Medications Medication Drug Class(es) Dates Sig (Normalized) Sig (Original) acetaminophen 300 mg / codeine phosphate 15 mg oral tablet (11 sources) Opioid Agonist Start: 04-04-2024 End: 06-29-2024 take 0.5-1 tablets by mouth twice daily acetaminophen-codei ne (TYLENOL-COD #2) 300-15 mg per tablet TAKE 1/2 TO 1 TABLET BY MOUTH 2 TIMES A DAY 04/04/2024 06/29/2024 Discontinued acetaminophen 325 mg / HYDROcodone bitartrate 5 mg oral tablet (11 sources) Opioid Agonist Start: 08-30-2018 End: 09-01-2018 Hydrocodone-Acetami nophen ([place] 5-325 Tablet) 1 EACH tablet Discontinued 1 NMA PO Q4H as needed for Pain 12 2 0 August 30, 2018 3:17pm August 31, 2018 12:00am September 01, 2018 12:17am Pyelonephritis Tubulo-interstitial nephritis, not specified as acute or chronic acetaminophen 325 mg / oxyCODONE hydrochloride 5 mg oral tablet (20 sources) Opioid Agonist Start: 05-25-2021 End: 09-10-2021 Oxycodone-Acetamino phen 1 TABLET tablet Discontinued 2 {tbl} PO EVERY 8 HOURS NEEDED as needed for Pain 10 7 0 May 25, 2021 September 10, 2021 3:15pm 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 Intermittent lower abdominal pain Other urethral stricture, female Lower abdominal pain, unspecified Start: 05-25-2021 End: 09-10-2021 take 2 tablets by mouth every eight hours as needed Oxycodone-Acetaminophen Discontinued 2 TABLET PO EVERY 8 HOURS NEEDED 10 7 May 25, 2021 September 10, 2021 4:15pm Start: 11-20-2017 End: 08-21-2018 Oxycodone-Acetaminophen 1 TA BLET tablet Discontinued 1 {tbl} PO EVERY 6 HOURS NEEDED as needed for Pain 10 3 0 November 20, 2017 12:00am August 21, 2018 3:36pm Abdominal pain Unspecified abdominal pain Start: 11-20-2017 End: 08-21-2018 take 1 tablet by mouth every six hours as needed Oxycodone-Acetaminophen Discontinued 1 TABLET PO EVERY 6 HOURS NEEDED 10 3 November 20, 2017 1:00am August 21, 2018 4:36pm Start: 05-30-2017 take 1 tablet by larry th four times daily PERCOCET 5-325 MG TABS One tablet by mouth four times daily OXYCODONE-ACETAMINOPHEN [id number] Tootie Figueroa MD Start: 05-30-2017 take 1 tablet by larry th four times daily PERCOCET 5-325 MG TABS One tablet by mouth four times daily OXYCODONE-ACETAMINOPHEN [id number] Tootie Figueroa MD Start: 05-30-2017 take 1 tablet by larry th four times daily PERCOCET 5-325 MG TABS One tablet by mouth four times daily OXYCODONE-ACETAMINOPHEN [id number] Tootie Figueroa MD [id number] 200 actuat albuterol 0.09 mg/actuat metered dose inhaler (20 sources) beta2-Adrenergic Agonist Start: 05-21-2021 End: 08-01-2023 Albuterol Sulfate 90 mcg/actuation HFA aerosol inhaler Discontinued 1 NMA INHALATION NEEDED as needed for ASTHMA May 20, 2021 11:00pm August 01, 2023 12:10pm Start: 05-21-2021 End: 08-01-2023 Albuterol Sulfate Discontinu ed 1 PUFF INHALATION NEEDED May 21, 2021 12:00am August 01, 2023 1:10pm Start: 06-11-2019 End: 05-25-2024 take 2 puff(s) by inhalation every four hours as needed albuterol HFA (PROVENTIL HFA, VENTOLIN HFA) 90 mcg/actuation inhaler Indications: Acute cough Inhale 2 Puffs as instructed every 4 hours as needed. 1 Each 1 10/06/2022 Active Start: 06-03-2017 PROAIR HFA 108 (90 Base) MCG/ACT AERS ALBUTEROL SULFATE [id number] Sandra Lai Christopher Start: 06-03-2017 PROAIR HFA 108 (90 Base) MCG/ACT AERS ALBUTEROL SULFATE [id number] Sandra Lai Christopher Start: 06-03-2017 PROAIR HFA 108 (90 Base) MCG/ACT AERS ALBUTEROL SULFATE [id number] Sandra Christopher Comment on above: Inhale 2 Puffs as in structed every 4 hours as needed for Wheezing/Shortness of Breath. Inhale 2 Puffs as in structed every 4 hours as needed. benzonatate 100 mg oral capsule (10 sources) Non-narcotic Antitussive Start: End: take 1 capsule by mouth three times daily benzonatate (TESSALON PERLE) 100 mg capsule Indications: Chronic cough , Mild intermittent asthma, unspecified whether complicated take 1 capsule by mouth three times a day if needed 60 capsule 0 07/12/2023 Active Comment on above: Take 1 capsule by mo uth three times daily as needed. take 1 capsule by mo uth three times a day if needed betamethasone 3 mg/ml / betamethasone acetate 3 mg/ml injectable suspension (2 sources) Corticosteroid Start: End: betamethasone acetate-betamethaso ne sodium phosphate 6 mg injection (CELESTONE) Start: 07-18-2024 End: 07-18-2024 6 mg, Injection - FOR ORTHO USE ONLY, ONCE, 1 dose, Starting on Tue07/18/24 at 1128, Until Tue07/18/24 at 1128 onabotulinumtoxina 200 unt injection (20 sources) Acetylcholine Release Inhibitor Start: 04-18-2025 End: 04-18-2025 onabotulinum toxin type A 200 Units injection (BOTOX) Start: 04-18-2025 End: 04-18-2025 inject 1 dose by intramuscular injection once 200 Units, INTRAMUSCULAR, ONCE, 1 dose, On Natalia 04/18/25 at 1030, This record documents the total dose provided to patient. See progress note for specific locations and amounts administered. Start: 01-16-2025 End: 01-16-2025 onabotulinum toxin type A 20 0 Units injection (BOTOX) Start: 01-16-2025 End: 01-16-2025 inject 1 dose by intramuscular injection once 200 Units, INTRAMUSCULAR, ONCE, 1 dose, On Tue01/16/25 at 1100, This record documents the total dose provided to patient. See progress note for specific locations and amounts administered. Start: 10-23-2024 End: 10-23-2024 onabotulinum toxin type A 20 0 Units injection (BOTOX) Start: 10-23-2024 End: 10-23-2024 inject 1 dose by intramuscular injection once 200 Units, INTRAMUSCULAR, ONCE, 1 dose, On Tue10/23/24 at 1530, This record documents the total dose provided to patient. See progress note for specific locations and amounts administered. Start: 07-19-2024 End: 07-19-2024 onabotulinum toxin type A 20 0 Units injection (BOTOX) Start: 07-19-2024 End: 07-19-2024 inject 1 dose by intramuscular injection once 200 Units, INTRAMUSCULAR, ONCE, 1 dose, On Natalia 07/19/24 at 1100, This record documents the total dose provided to patient. See progress note for specific locations and amounts administered. Start: 04-19-2024 End: 04-19-2024 onabotulinum toxin type A 20 0 Units injection (BOTOX) Start: 01-24-2024 End: 01-24-2024 onabotulinum toxin type A 20 0 Units injection (BOTOX) Start: 07-19-2023 End: 07-19-2023 onabotulinum toxin type A 20 0 Units injection (BOTOX) Start: 04-19-2023 End: 04-19-2023 onabotulinum toxin type A 20 0 Units injection (BOTOX) Start: 01-11-2023 End: 01-11-2023 onabotulinum toxin type A 20 0 Units injection (BOTOX) Start: 07-13-2022 End: 07-13-2022 onabotulinum toxin type A 20 0 Units injection (BOTOX) Start: 04-16-2022 End: 04-16-2022 onabotulinum toxin type A 20 0 Units injection (BOTOX) Start: 10-13-2021 onabotulinum t oxin type A 200 Units injection (BOTOX) carboxymethylcellulose sodium 5 mg/ml / glycerin 10 mg/ml / polysorbate 80 5 mg/ml ophthalmic solution (20 sources) Non-Standardized Chemical Allergen Start: 04-25-2024 End: 10-30-2024 REFRESH OPTIVE ADVANCED 0.5-1-0.5 % drop INSTILL 1 DROP IN EACH EYE 4 TIMES A DAY NEEDED 04/25/2024 10/30/2024 Discontinued Start: 12-23-2023 End: 10-30-2024 take 1 drop(s) into the eye(s) every six hours as needed [id number] (REFRESH OPT LEONARD ADVANCED, PF,) 0.5-1-0.5 % dpet Use 1 Drop in eyes four times a day as needed. 60 Each 5 12/23/2023 10/30/2024 Discontinued Comment on above: Use 1 Drop in eyes f our times a day as needed. cefixime 400 mg oral capsule (11 sources) Cephalosporin Antibacterial Start: 03-25-20 End: 03-30-20 take 1 capsule by mouth once daily Cefixime 400 mg capsule Discontinued 400 mg PO DAILY 10 10 0 March 24, 2021 11:00pm April 02, 2021 11:00pm March 30, 2021 7:10am cetirizine hydrochloride 10 mg oral tablet (20 sources) Histamine-1 Receptor Antagonist Start: 11-20-19 End: 04-21-20 take 1 tablet by mouth once daily Cetirizine 10 MG tablet Discontinued 10 mg PO DAILY November 20, 2017 12:00am April 21, 2020 2:12pm Start: 06-03-2017 ZYRTEC ALLERGY 10 MG CAPS CETIRIZINE HCL [id number] Sandra M Christopher Start: 06-03-2017 ZYRTEC ALLERGY 10 MG CAPS CETIRIZINE HCL [id number] Sandra Ming Christopher cholestyramine resin 4000 mg powder for oral suspension (20 sources) Bile Acid Sequestrant Start: 06-30-2021 End: 05-09-2024 cholestyramine (QUESTRAN) 4 gram packet take 1 packet ( 4 grams ) by mouth twice a day dissolve in 2 to 6 ounces OF WATER OR NONCARBONATED BEVERAGE with meals 60 Packet 5 06/30/2021 05/09/2024 Discontinued Comment on above: take 1 packet ( 4 gr ams ) by mouth twice a day dissolve in 2 to 6 ounces OF WATER OR NONCARBONATED BEVERAGE with meals D-Mannose (11 sources) Start: 05-21-2021 End: 07-31-2021 take 1 capsule by mouth once daily D-Mannose 500 mg Capsule Discontinued 500 mg PO DAILY May 20, 2021 11:00pm July 31, 2021 11:21am Start: 05-21-2021 End: 07-31-2021 take 1 capsule by mouth once daily D-Mannose 500 mg Capsule Discontinued 500 mg PO DAILY May 21, 2021 12:00am July 31, 2021 12:21pm Start: 05-21-2021 End: 07-31-2021 take 500 mg by mouth once daily D-Mannose Discontinued 500 MG PO DAILY May 20, 2021 11:00pm July 31, 2021 11:21am Start: 05-21-2021 End: 07-31-2021 take 500 mg by mouth once daily D-Mannose Discontinued 500 MG PO DAILY May 21, 2021 12:00am July 31, 2021 12:21pm OSIRIS EXTRA NASAL SPRAY (1 source) Start: 02-16-2021 take 2 spray(s) nasal route once daily OSIRIS EXTRA NASAL SPRAY 2 spray into both nostrils once a day OSIRIS EXTRA NASAL SPRAY Becka Allen CONTROL TECHNICIAN flecainide (11 sources) Antiarrhythmic Start: 06-03-2017 TAMBOCOR 50MG TAMBOCOR 50MG Sandra M Christopher Start: 06-03-2017 TAMBOCOR 50MG TAMBOCOR 50MG Sandra M Christopher fluconazole 150 mg oral tablet (20 sources) Azole Antifungal Start: 08-03-2021 End: 12-20-2024 Fluconazole (Diflucan) 150 mg tablet Discontinued 150 mg PO Every 3 Days as needed August 01, 2023 12:12pm December 20, 2024 3:07pm Start: 03-13-2021 End: 03-30-2021 take 1 tablet by mouth once Fluconazole (Diflucan) 150 mg tablet Discontinued 150 mg PO ONCE 1 0 March 12, 2021 11:00pm March 30, 2021 7:10am as a single dose Start: 08-31-2018 End: 04-21-2020 Fluconazole (Diflucan) 150 m g tablet Discontinued 150 mg PO .COMPLEX 2 0 August 31, 2018 12:00am April 21, 2020 2:13pm 150 mg PO now and in 72 hours if symptoms haven't resolved hyoscyamine sulfate 0.12 mg / methenamine 81.6 mg / methylene blue 10.8 mg / sodium phosphate, monobasic 40.8 mg oral tablet (1 source) Oxidation-Reduction Agent Start: 02-28-2024 End: 05-25-2024 take 1 tablet by mouth every six hours as needed methen-sod phos-meth blue-hyos 81.6-40.8-0.12 mg tab Take 1 tablet by mouth four times a day as needed. 02/28/2024 05/25/2024 Discontinued (Other) Ibrexafungerp (11 sources) Start: 09-10-2021 End: 08-01-2023 take 1 tablet by mouth once Ibrexafungerp (Brexafemme) 150 mg tablet Discontinued 0 PO per package directions 4 0 September 10, 2021 12:00am August 01, 2023 12:13pm PO PER PKG DIR Start: 09-10-2021 End: 08-01-2023 take 1 tablet by mouth once Ibrexafungerp (Brexafemme) 150 mg tablet Discontinued 0 PO per package directions 4 0 September 10, 2021 1:00am August 01, 2023 1:13pm PO PER PKG DIR Start: 09-10-2021 End: 08-01-2023 take 1 tablet by mouth once Ibrexafungerp (Brexafemme) 150 mg tablet Discontinued 0 PO per package directions September 10, 2021 1:00am August 01, 2023 1:13pm PO PER PKG DIR Start: 09-10-2021 End: 08-01-2023 take 1 tablet by mouth once Ibrexafungerp (Brexafemme) 150 mg tablet Discontinued 0 PO per package directions September 10, 2021 12:00am August 01, 2023 12:13pm PO PER PKG DIR Start: 09-10-2021 take 1 tablet by mouth once Ib rexafungerp (Brexafemme) 150 mg tablet Active 0 PO per package directions September 10, 2021 1:00am PO PER PKG DIR itraconazole 100 mg oral capsule (11 sources) Azole Antifungal Start: 09-01-2021 End: 09-04-2021 take 1 capsule by mouth once daily at mealtime Itraconazole 100 mg capsule Discontinued 200 mg PO daily 6 3 0 September 01, 2021 12:00am September 03, 2021 12:00am September 04, 2021 12:01am administer with meals Start: 09-01-2021 End: 09-04-2021 take 200 mg by mouth once daily at mealtime Itraconazole Discontinued 200 MG PO daily 6 3 September 01, 2021 1:00am September 04, 2021 1:01am administer with meals levocetirizine dihydrochloride 5 mg oral tablet (20 sources) Histamine-1 Receptor Antagonist Start: 10-09-2019 End: 12-20-2024 take 1 tablet by mouth once daily Levocetirizine (Xyzal) 5 mg tablet Discontinued 5 mg PO DAILY April 20, 2020 11:00pm December 20, 2024 3:07pm Comment on above: Take 5 mg by mouth o nce daily. Take 1 tablet by larry th once daily. 10 ml lidocaine hydrochloride 10 mg/ml injection (4 sources) Antiarrhythmic, Amide Local Anesthetic Start: 07-18-2024 End: 07-18-2024 lidocaine (PF) 10 mg/mL (1 %) 2 mL injection (XYLOCAINE) Start: 07-18-2024 End: 07-18-2024 2 mL, Injection - FOR ORTHO USE ONLY, ONCE, 1 dose, Starting on Tue07/18/24 at 1128, Until Tue07/18/24 at 1128 Start: 03-02-2024 End: 03-02-2024 lidocaine (PF) 10 mg/mL (1 % ) 2 mL injection (XYLOCAINE) LORazepam 0.5 mg oral tablet (20 sources) Benzodiazepine Start: 08-30-2018 End: 12-20-2024 Lorazepam 0.5 MG tablet Discontinued 0.5 mg PO NEEDED as needed for Anxiety August 30, 2018 12:00am December 20, 2024 3:07pm Start: 08-30-2018 End: 12-20-2024 take 0.5 mg by mouth every eight hours as needed for anxiety and anxiety LORazepam (ATIVAN) 0.5 mg Indications: Anxiety Take 1 tablet by mouth three times a day as needed for up to 30 days. 30 tablet 0 08/17/2023 09/16/2023 Active Start: 08-30-2018 End: 12-20-2024 take 1 tablet by mouth once daily as needed LORazepam (ATIVAN) 0.5 mg Indications: Anxiety Take 1 tablet by mouth once daily as needed for up to 30 days. 30 tablet 0 11/29/2023 12/29/2023 Active Start: 06-03-2017 ATIVAN 0.5 MG TABS LORAZEPAM [id number] Sandra Christopher Comment on above: Take 1 tablet by larry th at bedtime as needed for up to 30 days. Take 1 tablet by larry th three times daily as needed for up to 30 days. Take 0.5 mg by mouth three times daily as needed. Take 1 tablet by larry th three times a day as needed for up to 30 days. Take 1 tablet by larry th once daily as needed for up to 30 days. magnesium oxide 400 mg oral tablet (20 sources) Start: End: take 1 tablet by mouth once daily magnesium oxide (MAG-OX) 400 mg (241.3 mg magnesium) tablet Take 1 tablet by mouth once daily. 90 tablet 3 01/02/2024 10/30/2024 Discontinued Comment on above: Take 1 tablet by larry once daily. metroNIDAZOLE 500 mg oral tablet (11 sources) Nitroimidazole Antimicrobial Start: End: take 1 tablet by mouth twice daily Metronidazole 500 mg tablet Discontinued 500 mg PO TWICE A DAY 14 0 August 02, 2021 11:00pm September 10, 2021 3:14pm nitrofurantoin, macrocrystals 25 mg / nitrofurantoin, monohydrate 75 mg oral capsule (20 sources) Nitrofuran Antibacterial Start: End: take 1 capsule by mouth every twelve hours at mealtime Nitrofurantoin Monohyd/M-Cryst (Macrobid) 100 mg capsule Discontinued 100 mg PO Q12H 14 7 0 March 12, 2021 11:00pm March 18, 2021 11:00pm March 19, 2021 11:01pm must administer with a meal/food Start: 08-28-2018 End: 09-04-2018 take 1 capsule by mouth twice daily at mealtime Nitrofurantoin Monohyd/M-Cryst (Macrobid) 100 mg capsule Discontinued 100 mg PO TWICE A DAY 14 7 0 August 28, 2018 12:00am September 03, 2018 12:00am September 04, 2018 12:11am must administer with a meal/food olopatadine 1 mg/ml ophthalmic solution (11 sources) Histamine-1 Receptor Inhibitor Start: 05-21-2021 End: 08-01-2023 Olopatadine 0.1 % drops Discontinued 1 NMA EACH EYE DAILY May 20, 2021 11:00pm August 01, 2023 12:13pm ondansetron 4 mg disintegrating oral tablet (20 sources) Serotonin-3 Receptor Antagonist Start: 12-20-2024 End: 05-07-2025 take 1 tablet by mouth every eight hours Ondansetron 4 mg tablet,disintegrat ing Discontinued 4 mg PO Q8H December 19, 2024 11:00pm May 07, 2025 9:04am Start: 11-06-2024 take 1 tablet by larry every eight hours as needed ondansetron (ZOFRAN) 8 mg tablet Take 8 mg by mouth three times a day as needed. 11/06/2024 Active Start: 09-14-2023 take 1 tablet by larry th every eight hours as needed for nausea and vomiting Start: 10-09-2022 End: 10-13-2022 ondansetron orally disintegr ating (ZOFRAN ODT) 4 mg disintegrating tablet Start: 11-16-2021 End: 07-12-2023 take 1 tablet by mouth every eight hours as needed ondansetron (ZOFRAN) 4 mg tablet Take 1 tablet by mouth every 8 hours as needed for nausea/vomiting. 30 tablet 1 01/26/2023 07/12/2023 Discontinued Comment on above: take 1 tablet by larry th every 8 hours if needed for nausea and vomiting Take 1 tablet by larry th every 8 hours as needed for nausea/vomiting. pantoprazole 40 mg delayed release oral tablet (20 sources) Proton Pump Inhibitor Start: End: take 1 tablet by mouth twice daily Pantoprazole 40 mg tablet,delayed release (DR/EC) Discontinued 40 mg PO TWICE A DAY December 19, 2024 11:00pm May 07, 2025 8:59am Start: 02-16-2021 End: 12-12-2023 take 1 tablet by mouth once daily Pantoprazole 40 mg tablet,delayed release (DR/EC) Discontinued 40 mg PO DAILY May 20, 2021 11:00pm August 01, 2023 12:13pm Comment on above: Take 1 tablet by larry th once daily. Take 1 tablet by larry th two times a day. rizatriptan 10 mg oral tablet (3 sources) Serotonin-1b and Serotonin-1d Receptor Agonist Start: 07-27-2019 End: 01-15-2022 rizatriptan (MAXALT) 10 mg tablet 1 tab at earliest sign of migraine. May repeat once in 2 hours if needed. Give max allowed per insurance. 9 tablet 11 07/27/2019 01/15/2022 Discontinued Comment on above: 1 tab at earliest si gn of migraine. May repeat once in 2 hours if needed. Give max allowed per insurance. sulfamethoxazole 800 mg / trimethoprim 160 mg oral tablet (20 sources) Dihydrofolate Reductase Inhibitor Antibacterial, Sulfonamide Antimicrobial Start: 05-25-2021 End: 07-31-2021 Sulfamethoxazole-Trime thoprim 1 TABLET tablet Discontinued 1 {tbl} PO TWICE A DAY 6 3 0 May 24, 2021 11:00pm July 31, 2021 11:21am Start: 05-25-2021 End: 07-31-2021 take 1 tablet by mouth twice daily Sulfamethoxazole-Trimethoprim Discontinu ed 1 TABLET PO TWICE A DAY 6 3 May 25, 2021 12:00am July 31, 2021 12:21pm Start: 05-21-2021 End: 07-31-2021 Sulfamethoxazole-Trimethopri m 800-160 mg Tablet Discontinued 1 {tbl} PO DAILY May 20, 2021 11:00pm July 31, 2021 11:21am Start: 05-21-2021 End: 07-31-2021 take 1 tablet by mouth once daily Sulfamethoxazole-Trimethoprim Discontinu ed 1 TABLET PO DAILY May 21, 2021 12:00am July 31, 2021 12:21pm SUMAtriptan 100 mg oral tablet (3 sources) Serotonin-1b and Serotonin-1d Receptor Agonist Start: 01-05-2022 End: 01-15-2022 take 1 tablet by mouth every two hours as needed for headache SUMAtriptan (IMITREX) 100 mg tablet Take 1 tablet by mouth as needed. START AT ONSET OF HEADACHE. MAY REPEAT DOSE AFTER 2 HOURS. 12 tablet 3 01/05/2022 01/15/2022 Discontinued Comment on above: Take 1 tablet by larry th as needed. START AT ONSET OF HEADACHE. MAY REPEAT DOSE AFTER 2 HOURS. 1 ml triamcinolone acetonide 40 mg/ml injection (2 sources) Corticosteroid Start: 03-02-2024 End: 03-02-2024 triamcinolone acetonide 40 mg injection (KeNALog 40) ubrogepant 100 mg oral tablet (20 sources) Start: 01-15-2022 End: 01-11-2023 ubrogepant (UBRELVY) 100 mg tablet Take half to 1 tab at migraine onset. May repeat same dose once in 2 hours as needed. 16 tablet 11 04/16/2022 01/11/2023 Discontinued (Changing Therapy/Dosage Form) Comment on above: Take half to 1 tab a t migraine onset. May repeat same dose once in 2 hours as needed. Problems Active Problems Problem Classification Problem Date Documented Da te Episodic/Chronic Anxiety disorders (20 sources) Anxiety; Translations: [Anxiety disorder, unspecified] Onset: 4 05-21-2014 Chronic Asthma (20 sources) Asthma; Translations: [Unspecified asthma, uncomplicated] Onset: 4 11-13-2015 Chronic Cardiac dysrhythmias (20 sources) Paroxysmal supraventricular tachycardia; Translations: [Supraventricular tachycardia] Onset: 4 03-29-2018 Chronic Cardiac dysrhythmias (20 sources) Palpitations; Translations: [Palpitations] Onset: 4 Resolved: 8 03-29-2018 Episodic Conditions associated with dizziness or vertigo (2 sources) Dizziness; Translations: [Dizziness and giddiness] 06-01-2023 Episodic Conduction disorders (20 sources) Glehg-Phygxdzul-Fyolp pattern; Translations: [Pre-excitation syndrome] Onset: 4 Resolved: 8 03-29-2018 Chronic Deficiency and other anemia (1 source) Iron deficiency anemia; Translations: [Iron deficiency anemia, unspecified] 07-26-2024 Episodic Esophageal disorders (20 sources) Gastroesophageal reflux disease without esophagitis; Translations: [Gastro-esophageal reflux disease without esophagitis] Onset: 7 12-21-2017 Chronic Genitourinary symptoms and ill-defined conditions (20 sources) Female stress incontinence; Translations: [Stress incontinence (female) (male)] Onset: 6 11-13-2015 Chronic Headache; including migraine (20 sources) Refractory migraine without aura; Translations: [Chronic migraine without aura, intractable, with status migrainosus] Onset: 9 12-05-2018 Chronic Immunizations and screening for infectious disease (2 sources) Encounter for screening for other viral diseases; Translations: [Encounter for screening for human immunodeficiency virus [HIV]] Onset: 5 Episodic Joint disorders and dislocations; trauma-related (3 sources) Acetabular labrum tear 11-22-2024 Chronic Miscellaneous mental health disorders (20 sources) Chronic insomnia; Translations: [Psychophysiologic insomnia] Onset: 2 Resolved: 4 09-28-2021 Chronic Mycoses (12 sources) Recurrent candidiasis of vagina; Translations: [Recurrent candidiasis of vagina] 09-10-2021 Episodic Nausea and vomiting (18 sources) Nausea and vomiting; Translations: [Nausea with vomiting, unspecified] Onset: 5 Episodic Noninfectious gastroenteritis (1 source) Noninfective gastroenteritis and colitis, unspecified; Translations: [Colitis] Onset: 5 Episodic Other aftercare (1 source) Encounter for therapeutic drug level monitoring; Translations: [Medication monitoring encounter] Onset: 5 Episodic Other aftercare (1 source) Other penitentiary (current) drug therapy; Translations: [Medication management] Onset: 5 Episodic Other and unspecified benign neoplasm (1 source) Melanocytic nevus; Translations: [Melanocytic nevi, unspecified] 11-29-2023 Episodic Other circulatory disease (1 source) Ecchymosis; Translations: [Hemorrhage, not elsewhere classified] 07-26-2024 Episodic Other connective tissue disease (1 source) Cramp in lower limb; Translations: [Cramp and spasm] Episodic Other connective tissue disease (1 source) Trochanteric bursitis; Translations: [Trochanteric bursitis, right hip] Episodic Other connective tissue disease (9 sources) Spasm; Translations: [Other muscle spasm] 01-17-2024 Episodic Other connective tissue disease (1 source) Other muscle spasm; Translations: [Spasm of muscle] 01-17-2024 Episodic Other diseases of bladder and urethra (11 sources) Urethral stricture; Translations: [Other urethral stricture, female] 05-25-2021 Episodic Other eye disorders (1 source) Dry eye syndrome of bilateral lacrimal glands; Translations: [Dry eye syndrome of bilateral lacrimal glands] Onset: 5 Episodic Other female genital disorders (11 sources) Mittelschmerprabhjot; Translations: [Mittelschmerz] Onset: 7 06-06-2017 Chronic Other female genital disorders (20 sources) Dyspareunia; Translations: [Dyspareunia] Onset: 9 11-22-2018 Chronic Comment on above: estrace Other gastrointestinal disorders (20 sources) Irritable bowel syndrome with diarrhea; Translations: [Irritable bowel syndrome with diarrhea] Onset: 2 Chronic Other gastrointestinal disorders (2 sources) Irritable bowel syndrome; Translations: [Mixed irritable bowel syndrome] Chronic Other gastrointestinal disorders (1 source) Irritable bowel syndrome with diarrhea; Translations: [Irritable bowel syndrome with diarrhea] Onset: 5 Chronic Other gastrointestinal disorders (1 source) Oropharyngeal dysphagia; Translations: [Dysphagia, oropharyngeal phase] 02-02-2024 Episodic Other gastrointestinal disorders (1 source) Dysphagia, oropharyngeal phase; Translations: [Oropharyngeal dysphagia] Onset: 4 Episodic Other gastrointestinal disorders (18 sources) Dysphagia; Translations: [Dysphagia, unspecified] 12-21-2024 Episodic Other gastrointestinal disorders (1 source) Dysphagia, unspecified; Translations: [Dysphagia, unspecified] Onset: 5 Episodic Other hereditary and degenerative nervous system conditions (20 sources) Essential tremor; Translations: [Essential tremor] Onset: 4 07-26-2024 Chronic Other lower respiratory disease (1 source) Cough; Translations: [Acute cough] Episodic Other lower respiratory disease (3 sources) Chronic cough; Translations: [Chronic cough] 06-01-2023 Episodic Other nervous system disorders (3 sources) Ulnar neuritis; Translations: [Lesion of ulnar nerve, unspecified upper limb] Onset: 7 08-02-2017 Chronic Other nervous system disorders (1 source) Other chronic pain; Translations: [Chronic midline low back pain without sciatica] Onset: 5 Chronic Other non-traumatic joint disorders (4 sources) Pain in right hip joint; Translations: [Pain in right hip] 12-09-2023 Episodic Other nutritional; endocrine; and metabolic disorders (2 sources) Abnormal weight loss; Translations: [Unintended weight loss] Onset: 5 Episodic Other screening for suspected conditions (not mental disorders or infectious disease) (20 sources) Patient encounter status; Translations: [Encounter for screening for malignant neoplasm of colon] Onset: 6 10-15-2016 Episodic Other screening for suspected conditions (not mental disorders or infectious disease) (1 source) No current problems or disability 05-30-2017 Other upper respiratory disease (1 source) Allergic rhinitis due to pollen; Translations: [Allergic rhinitis due to pollen] Chronic Other upper respiratory disease (20 sources) Chronic rhinitis; Translations: [Chronic rhinitis] Onset: 4 11-23-2023 Chronic Other upper respiratory disease (20 sources) Vasomotor rhinitis; Translations: [Vasomotor rhinitis] Onset: 4 11-23-2023 Chronic Other upper respiratory disease (1 source) Chronic rhinitis; Translations: [Chronic rhinitis] Onset: 4 Chronic Other upper respiratory disease (1 source) Vasomotor rhinitis; Translations: [Vasomotor rhinitis] Onset: 4 Chronic Other upper respiratory disease (1 source) Voice tremor; Translations: [Other voice and resonance disorders] 12-12-2023 Episodic Other upper respiratory disease (1 source) Congestion of nasal sinus; Translations: [Nasal congestion] 01-02-2024 Episodic Other upper respiratory infections (20 sources) Chronic sinusitis; Translations: [Chronic sinusitis, unspecified] Onset: 7 12-21-2017 Chronic Residual codes; unclassified (1 source) Influenza-like symptoms; Translations: [Other general symptoms and signs] Episodic Residual codes; unclassified (4 sources) Pain; Translations: [Pain, unspecified] Episodic Spondylosis; intervertebral disc disorders; other back problems (1 source) Degeneration of cervical intervertebral disc; Translations: [Other cervical disc degeneration, mid-cervical region, unspecified level] Onset: 1 02-19-2021 Chronic Sprains and strains (20 sources) Acetabular labrum tear; Translations: [Other sprain of right hip, initial encounter] Onset: 4 02-21-2024 Episodic Unclassified (1 source) Unknown / UNK(Unknown) Onset: 8 Unclassified (1 source) Chronic midline low back pain without sciatica; Translations: [Chronic midline low back pain without sciatica] Onset: 5 Urinary tract infections (20 sources) Urinary tract infectious disease; Translations: [Urinary tract infection, site not specified] 05-25-2021 Episodic Past or Other Problems Problem Classification Problem Date Documented Date Episodic/Chronic Abdominal pain (19 sources) Lower abdominal pain; Translations: [Lower abdominal pain, unspecified] Onset: 05-07-2025 05-25-2021 Episodic Adjustment disorders (20 sources) Adjustment disorder with depressed mood; Translations: [Adjustment disorder with depressed mood] Onset: 12-06-2005 Resolved: 10-19-2019 10-19-2019 Chronic Allergic reactions (20 sources) Allergic contact dermatitis due to adhesive; Translations: [Allergic contact dermatitis due to adhesives] Onset: 11-23-2023 11-23-2023 Episodic Biliary tract disease (20 sources) Biliary dyskinesia; Translations: [Other specified diseases of gallbladder] Onset: 11-01-2017 11-16-2017 Episodic Cancer of cervix (20 sources) Cervical atypism; Translations: [Atypical squamous cells of undetermined significance on cytologic smear of cervix (ASC-US)] Onset: 01-29-2009 Resolved: 11-17-2011 11-17-2011 Episodic Coma; stupor; and brain damage (20 sources) Daytime somnolence; Translations: [Somnolence] Onset: 10-30-2024 10-30-2024 Episodic Deficiency and other anemia (1 source) Iron deficiency anemia, unspecified; Translations: [Iron deficiency anemia, unspecified iron deficiency anemia type] Onset: 07-26-2024 Episodic Disorders usually diagnosed in infancy, childhood, or adolescence (20 sources) Attention deficit hyperactivity disorder, predominantly inattentive type; Translations: [Other specified behavioral and emotional disorders with onset usually occurring in childhood and adolescence] Onset: 07-29-2009 Resolved: 02-02-2021 02-02-2021 Chronic Gastritis and duodenitis (20 sources) Acute gastritis; Translations: [Acute gastritis without bleeding] Onset: 12-06-2005 Resolved: 11-13-2015 11-13-2015 Episodic Headache; including migraine (20 sources) Chronic mixed headache syndrome; Translations: [Other headache syndrome] Onset: 12-05-2018 12-05-2018 Episodic Hemorrhoids (20 sources) Internal hemorrhoids; Translations: [Other hemorrhoids] Onset: 10-06-2020 10-07-2020 Episodic Inflammation; infection of eye (except that caused by tuberculosis or sexually transmitteddisease) (20 sources) Allergic conjunctivitis of bilateral eyes; Translations: [Acute atopic conjunctivitis, bilateral] Onset: 11-23-2023 11-23-2023 Episodic Nonspecific chest pain (20 sources) Chest discomfort; Translations: [Other chest pain] Onset: 02-18-2014 Resolved: 11-13-2015 11-13-2015 Episodic Other aftercare (20 sources) Long-term current use of drug therapy; Translations: [Other intermediate designer (current) drug therapy] Resolved: 11-22-2018 11-22-2018 Episodic Other and unspecified benign neoplasm (20 sources) Benign neoplasm of ovary; Translations: [Benign neoplasm of unspecified ovary] Onset: 07-08-2017 12-21-2017 Episodic Other circulatory disease (1 source) Hemorrhage, not elsewhere classified; Translations: [Ecchymosis] Onset: 07-26-2024 Episodic Other connective tissue disease (3 sources) Hand pain; Translations: [Pain in left hand] Onset: 07-20-2017 07-20-2017 Episodic Other connective tissue disease (20 sources) History of cervical spine fusion; Translations: [Arthrodesis status] Onset: 10-01-2021 10-01-2021 Episodic Other connective tissue disease (20 sources) Musculoskeletal pain; Translations: [Myalgia, other site] Onset: 07-27-2019 07-27-2019 Episodic Other connective tissue disease (20 sources) Tendinitis of left gluteal tendon; Translations: [Unspecified disorder of synovium and tendon, left thigh] Onset: 08-06-2024 07-16-2024 Episodic Other connective tissue disease (1 source) Unspecified disorder of synovium and tendon, left thigh; Translations: [Tendinopathy of left gluteal region] Onset: 08-06-2024 Episodic Other female genital disorders (20 sources) Abnormal uterine bleeding; Translations: [Abnormal uterine and vaginal bleeding, unspecified] Onset: 04-17-2014 Resolved: 09-02-2014 09-02-2014 Chronic Other female genital disorders (11 sources) Chronic pelvic pain of female; Translations: [Pelvic and perineal pain] Onset: 06-03-2017 06-06-2017 Episodic Other nervous system disorders (3 sources) Complex regional pain syndrome, type I; Translations: [Complex regional pain syndrome I, unspecified] Onset: 07-20-2017 08-02-2017 Episodic Other nervous system disorders (20 sources) Other abnormal involuntary movements; Translations: [Abnormal involuntary movements] Onset: 12-06-2005 Resolved: 11-13-2015 11-13-2015 Episodic Other non-traumatic joint disorders (20 sources) Hip pain; Translations: [Pain in unspecified hip] Onset: 08-06-2024 Episodic Other non-traumatic joint disorders (1 source) Pain in left hip; Translations: [Pain of left hip] Onset: 08-06-2024 Episodic Other upper respiratory disease (20 sources) Obstruction of larynx; Translations: [Other diseases of larynx] Onset: 11-23-2023 11-23-2023 Episodic Other upper respiratory disease (20 sources) Hoarse; Translations: [Dysphonia] Onset: 05-09-2024 12-12-2023 Episodic Other upper respiratory disease (1 source) Other diseases of larynx; Translations: [Inducible laryngeal obstruction (ILO)] Onset: 11-23-2023 Episodic Other upper respiratory disease (1 source) Dysphonia; Translations: [Hoarseness of voice] Onset: 05-09-2024 Episodic Ovarian cyst (20 sources) Complex cyst of right ovary; Translations: [Other ovarian cyst, right side] Onset: 12-10-2016 12-10-2016 Episodic Residual codes; unclassified (1 source) Other specified postprocedural states Onset: 03-28-2018 Episodic Residual codes; unclassified (20 sources) Menopause present; Translations: [Asymptomatic menopausal state] Onset: 07-08-2017 12-21-2017 Episodic Residual codes; unclassified (20 sources) Acquired absence of cervix and uterus; Translations: [Acquired absence of both cervix and uterus] Onset: 07-08-2017 12-21-2017 Episodic Residual codes; unclassified (20 sources) H/O cardiac surgery; Translations: [Other specified postprocedural states] Onset: 03-29-2018 03-29-2018 Episodic Residual codes; unclassified (1 source) Asymptomatic menopausal state; Translations: [Asymptomatic menopausal state] Onset: 11-19-2024 Episodic Sexually transmitted infections (not HIV or hepatitis) (20 sources) Human papillomavirus deoxyribonucleic acid test positive, high risk on cervical specimen; Translations: [Cervical high risk human papillomavirus (HPV) DNA test positive] Onset: 01-29-2009 01-29-2009 Episodic Spondylosis; intervertebral disc disorders; other back problems (20 sources) Neck pain; Translations: [Cervicalgia] Onset: 07-27-2019 07-27-2019 Episodic Unclassified (1 source) Problem Unclassified (1 source) Patient encounter status 11-10-2024 Results Test Name Value Interpretation Reference Range Facility SCRN MAMM (CAD)W/KRISTY BILATo n 08-13-2025 SCRN MAMM (CAD)W/KRISTY BILAT [facility] Imaging Services [address] [place], [place] [id number] SCRN MAMM (CAD)W/KRISTY BILAT MR#: [id number] Acct: [id number] Name: MARCIAL YEUNG Rep #: [id number] : 1965 F 60 From: Komal Robert i, MD PCP: Dr. Dasia Auguste DO Status: REG CLI Study: SCRN MAMM (CAD)W/RKISTY BILAT Date of Exam: 08/03 10/27 Exam# [id number] Ordering Dr: Dasia Auguste DO EXAM: SCRN MAMM (CAD)W/KRISTY BILAT DATE: 08/13/2025 CLINICAL HISTORY: F, Age 60 y/o , SCREENING BILAT MAMMOGRAM TECHNIQUE: Procedure Code: [id number] Modality: MG Procedure: SCRN MAMM (CAD)W/KRISTY BILAT COMPARISON: Prior exam(s) were compared FINDINGS: TISSUE DENSITY: The breasts are heterogeneously dense, which may obscure small masses. Bilateral Breast Mammographic Findings: No significant masses, calcifications or other abnormalities are identified. BI/SCRN MAMM (CAD)W/KRISTY BILAT IMPRESSION: No mammographic evidence of malignancy in either breast. OVERALL FINAL ASSESSMENT BI-RADS 1: NEGATIVE. RECOMMENDATION: Routine annual follow-up in 1 Year Additional Recommendation none A letter with findings and recommendations will be mailed to the patient. Reading Location: [id number] CC: Dr. Dasia Auguste DO 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Signed Normal [facility] Chest PA and Lateralon 07-24 Chest PA and Lateral [facility] Imaging Services [address] [place] [address] Chest PA and Lateral MR#: [id number] Acct: [id number] Name: MARCIAL YEUNG Rep #: [id number] : 1965 F 60 From: Davy Nguyễn PCP: Dr. Dasia Auguste DO Status: DEP AMB Study: Chest PA and Lateral Date of Exam: 07/24/25 Exam# [id number] Ordering Dr: Dasia Auguste DO PROCEDURE: CHEST PA AND LATERAL 07/24/2025 REASON FOR EXAM: UNEXPLAINED WEIGHT LOSS, HX ASTHMA TECHNIQUE: Procedure Code: RADCXR Modality: DX Procedure: CHEST PA AND LATERAL COMPARISON: Chest x-ray of 03/06/2025. RAD/Chest PA and Lateral IMPRESSION: Right upper quadrant abdominal surgical clips are again seen. Prior cervical surgery is again partially visualized. Lungs appear clear of acute disease, and unchanged. No pleural effusion or pneumothorax is noted. The cardiomediastinal silhouette is within the normal range, and unchanged. Mild thoracic spine degenerative changes are seen. No acute osseous change is evident. Reading Location: [address] CC: Dr. Dasia Auguste DO 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Signed [facility] CNOVon 07-18-2025 CNOV Office Visit ([facility]) MARCIAL YEUNG ([id number]) 1965 F NFR Date Time Provider Department 07/18/25 11:30 AM SHARRON HOLLIS NDFB During your visit today, we recorded the following information about you: Pulse Blood pressure Weight 73/minute 150/84 58.1 kg Sharron Hollis APRN.ASBESTOS MICROSCOPIST 07/18/2025 12:20 PM Signed [facility] Follow-up Visit Impression: Chronic migraine without aura, intractable, without status migrainosus (primary encounter diagnosis) Marcial Yeung has been previously approved for an Oral Calcitonin Gene-Related Peptide Receptor Antagonist (GEPANT) Rimegepant for the treatment of abortive use. The patient has demonstrated the following: Provider attests patient has had a positive clinical response: Yes Patient will not use with another Oral Calcitonin Gene-Related Peptide Receptor Antagonist (GEPANT): Yes Patient's quality of life and ability to perform ADLs has improved: Yes The patient has tried and failed the following : We suggest the patient continue treatment with GEPANT Rimegepant. The following preventative medications have been tried for three or more months without benefit: Anti-Convulsant Gabapentin (Neurontin) Topiramate (Topamax, Trokendi XL, Qudexy) Anti-Depressant and Antipsychotic Amitriptyline (Elavil) Bupropion (Wellbutrin) Citalopram (Celexa) Fluoxetine (Prozac) Venlafaxine (Effexor) Blood Pressure Metoprolol (Lopressor,Toprol XL) Propranolol (Inderal) Botulinum Toxin Onabotulinum Toxin A (Botox) Supplements Magnesium The following abortive medications have been tried but require high frequency use which can lead to Medication Overuse Headache: Analgesic Hydrocodone/Acetamin ophen (Vicodin, [place]) Hydromorphone (Dilaudid) Meloxicam (Mobic) Meperidine (Demerol) Oxycodone Oxycodone/Acetaminop hen (Percocet) Tramadol (Ultram) Anti-Anxiety Lorazepam (Ativan) Anti-Migraine Rizatriptan (Maxalt) Sumatriptan (Imitrex, Sumavel) GEPANTS Ubrogepant (Ubrelvy) Rimegepant (Nurtec) Over the Counter Medications Acetaminophen (Tylenol) Acetaminophen/Aspiri n/Caffeine (Excedrin, Goody?s) Aspirin Ibuprofen (Advil, Motrin) Naproxen sodium (Aleve) Follow-Up Onabotulinum Toxin A (BotoxTM) for Migraine Indication: Chronic Intractable Migraine Referral Expiration: 04/08/2026 Prior to the initiation of the FIRST treatment with Onabotulinum Toxin A, the patient reported the following average headache frequency over the past 3 MONTHS: Number of moderate-severe migraine days/month: 25 Number of mild migraine days/month: 0 Number of headache free days/month: 5 (120 headache-free hours) After treatment with Onabotulinum Toxin A: Number of moderate-severe migraine days/month: 2 Number of mild migraine days/month: 6 Number of headache free days/month: 22 (528 headache-free hours) Patient reduction in overall migraine days: Yes Patient reduction in moderate-severe migraine days: Yes Patient reduction of headache hours by 100 hours or more: Yes (reduction of 408 hours) Individual has obtained clinical benefit deemed significant by individual or prescriber (Y/N): Yes Patient's quality of life and ability to perform ADLs has improved (Y/N): Yes Side effects: none The patient has been assessed for disorders which could contribute to breathing or swallowing difficulty, and there is no contraindication with PREEMPT Botox. There is no documented allergic reaction/hypersensit ivity to any botulinum toxin and there is no active infection at proposed injection site. HEADACHE SCORES: 10/17/2024 01/15/2025 04/16/2025 Headache Questions ER visits since last office visit: 0 0 0 Hospital stays since last office visit 0 0 0 Limited ADLs in the last month: 0 0 0 Days missed from work or school in the last month: 0 0 0 Days headache pain free in the last month: 20 20 24 Days per month with ALL of the following symptoms - decreased productivity, light sensitivity and nausea: 0 2 3 Initial improvement of headache after botox injection at last visit: Much improved Very much improved Very much improved PRN medication usage in the last month: 5 6 Patient impression of improvement since last visit: No change No change Minimally improved 10/17/2024 01/15/2025 04/16/2025 HIT-6 HIT-6 40 (Little or no impact) 42 (Little or no impact) 44 (Little or no impact) 12/29/2024 01/15/2025 04/16/2025 KEYONNA - 2/7 SCORES KEYONNA-2 Score 0 0 0 KEYONNA-7 Score 0 10/17/2024 01/15/2025 04/16/2025 Migraine Specific QOL - Higher scores indicate better HRQL Role Function-Restrictive Transformed Score (range: 0-100) 97.14 100 97.14 Role Function-Preventive Transformed Score (range: 0-100) 100 95 100 Emotional Function Transformed Score (range: 0-100) 100 100 100 04/16/2025 01/15/2025 10/17/2024 PHQ-9 Score 4 3 2 BP 150/84 Pulse 73 Wt 58.1 kg (128 lb) (more content not included)... Normal [facility] CNOVon 07-16-2025 CNOV Office Visit (FAMPBR) MARCIAL YEUNG ([id number]) 1965 F NFR Date Time Provider Department 07/16/25 11:20 [facility] During your visit today, we recorded the following information about you: Pulse Blood pressure Weight Height 81/minute 152/96 57.6 kg 1.575 m James Harry DO 07/16/2025 11:47 AM Addendum Periodic Health Examination Patient Name: Marcial Yeung Today's Date: July 16, 2025 CC: Wellness exam HPI: Marcial Yeung is an 60 year old female who presents for: Wellness exam Medical, surgical, family and social histories reviewed and updated below. Marcial is a 60-year-old female with a history of GERD, presenting for evaluation of unintentional weight loss. Unintentional Weight Loss: - Unintentional weight loss since March, losing approximately two pant sizes. - Weight loss began after a hqu-ptv-z-half-week illness in March, described as a "cold type" illness. - Initially lost about 2 lbs per week, now losing about 1 lb per week; no weight loss this week. - Denies hematochezia. - No significant dietary changes, but has been eating more fish and reduced Red Bull consumption. 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 - Denies drug use; taking prescribed medications. - Denies recent chest X-ray; last mammogram in September. - Denies current use of tanning beds. - Having issues with anxiety surrounding stress with her son. Would like a refill on her ativan. Had 30 tabs that lasted a few years. 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 - Underwent esophageal manometry and gastric emptying study, both showing abnormalities. - Taking pantoprazole and Pepcid AC at bedtime. - Elevates the head of the bed to manage symptoms. - Experiences frequent nausea. - Allergic to beef. - Last endoscopy 4 years ago showed active colitis. - Reports postnasal drainage, attributed to acid reflux by an emergency medical technician. Latest Ref Rng 07/26/2024 07/12/2025 Protein, Total 6.3 - 8.0 g/dL 6.7 Albumin 3.9 - 4.9 g/dL 4.5 Calcium 8.5 - 10.2 mg/dL 9.5 9.6 Bilirubin, Total 0.2 - 1.3 mg/dL 0.2 Alkaline Phosphatase 34 - 123 U/L 61 AST 13 - 35 U/L 22 ALT 7 - 38 U/L 36 Glucose 74 - 99 mg/dL 96 88 BUN 7 - 21 mg/dL 14 9 Creatinine 0.58 - 0.96 mg/dL 0.99 (H) 0.81 Sodium 136 - 144 mmol/L 140 132 (L) Potassium 3.7 - 5.1 mmol/L 4.3 4.5 Chloride 98 - 107 mmol/L 104 98 CO2 22 - 30 mmol/L 27 22 Anion Gap 8 - 15 mmol/L 9 12 eGFR >=60 mL/min/1.73m? 66 84 WBC 3.70 - 11.00 k/uL 9.46 RBC 3.90 - 5.20 m/uL 4.31 Hemoglobin 11.5 - 15.5 g/dL 12.5 Hematocrit 36.0 - 46.0 % 39.7 MCV 80.0 - 100.0 fL 92.1 MCH 26.0 - 34.0 pg 29.0 MCHC 30.5 - 36.0 g/dL 31.5 RDW-CV 11.5 - 15.0 % 13.0 Platelet Count 150 - 400 k/uL 371 MPV 9.0 - 12.7 fL 10.2 Absolute nRBC <0.01 k/uL <0.01 Iron 41 - 186 ug/dL 81 TIBC 232 - 386 ug/dL 338 Transferrin Saturation 15.0 - 57.0 % 24.0 Ferritin 14.7 - 205.1 ng/mL 53.3 TSH 0.270 - 4.200 mIU/L 1.470 Legend: (H) High (L) Low PDMP website checked and validated. All prescriptions have been APPROPRIATELY filled. No suspicious activity was identified. 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; indication: symptomatic PSVT with WPW syndrome Other anxiety states Palpitations Paroxysmal supraventricular tachycardia (HCC) see "WPW Syndrome" Primary insomnia 06/11/2015 Sinus tachycardia 10/20/2023 Stress incontinence, female Unspecified asthma(493.90) 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; attempt at catheter ablation 11/2016 failed; she continues to experience intermittent palpitations and tachycardia despite treatment with flecainide; successful RFCA 03/2018 PAST SURGICAL HISTORY Procedure Laterality Date BLADDER SURGERY HX 11/2015 bladder sling BREAST AUGMENTATION WITH IMPLANT 11/2007 Breast augmentation CARDIAC MONITORING CONTINUOUS 05/25/2018 96 hours monitoring: sinus rhythm, sinus tachycardia; patient event activations and/or reported symptoms correlated with sinus rhythm and sinus tachycardia DELIVERY ONLY 85, 88,92 , low cervical X3 COLONOSCOPY 06/2021 EGD 2019 F LIGATION OF HEMORRHOID(S) 10/07/2020 IUD INSERTION ([facility])_*FL 08/30/2007 Mirena - removed LAPAROSCOPY SURG CHOLECYSTECTOMY 11/16/2017 (more content not included)... Normal [facility] TOXICOLOGY SCREEN, ROUTINE U RINEon 07-16-2025 Amphetamines Confirm (U) [Mass/Vol] Negative Normal Negative [facility] Comment on above: Order Comment: Speci men Type: BLOOD SPECIMEN Ordering Facility: [facility] Address: [address] [place] [address] Result Comment: Cuto ff threshold at 1000 ng/mL. Performed By: #### 5 0190-8, 2276-4 #### [facility] CLIA [id number] [address] [place] [address] [place] BARBITURATES, URINE Positive Abnormal Negative [facility] Comment on above: Order Comment: Speci men Type: BLOOD SPECIMEN Ordering Facility: [facility] Address: [address] [place] [address] Result Comment: Cuto ff threshold at 200 ng/mL. Performed By: #### 5 0190-8, 2275-4 #### [facility] CLIA [id number] [address] [place] [address] [place] BENZODIAZEPINES, URINE Negative Normal Negative [facility] Comment on above: Order Comment: Speci men Type: BLOOD SPECIMEN Ordering Facility: [facility] Address: [address] [place] [address] Result Comment: Cuto ff threshold at 200 ng/mL. Performed By: #### 5 0190-8, 2275-4 #### [facility] CLIA [id number] [address] [place] [address] [place] Cannabinoids Screen Ql (U) Negative Normal Negative [facility] Comment on above: Order Comment: Speci men Type: BLOOD SPECIMEN Ordering Facility: [facility] Address: [address] [place] [address] Result Comment: Cuto ff threshold at 50 ng/mL. Performed By: #### 5 0190-8, 2275-4 #### [facility] CLIA [id number] [address] [place] [address] [place] Cocaine Ql (U) Negative Normal Negative [facility] Comment on above: Order Comment: Speci men Type: BLOOD SPECIMEN Ordering Facility: [facility] Address: [address] [place] [address] Result Comment: Cuto ff threshold at 300 ng/mL. Performed By: #### 5 0190-8, 2275-4 #### [facility] CLIA [id number] [address] [place] [address] [place] Ethanol (U) [Mass/Vol] <11 Normal <11 [facility] Comment on above: Order Comment: Speci men Type: BLOOD SPECIMEN Ordering Facility: [facility] Address: [address] [place] [address] Performed By: #### 5 0190-8, 2275-4 #### [facility] CLIA [id number] [address] [place] [address] [place] fentaNYL Screen Ql (U) Negative Normal Negative [facility] Comment on above: Order Comment: Speci men Type: BLOOD SPECIMEN Ordering Facility: [facility] Address: [address] [place] [address] Result Comment: Cuto ff threshold at 5 ng/mL. Performed By: #### 5 0190-8, 2275-4 #### [facility] CLIA [id number] [address] [place] [address] [place] Opiates Screen Ql (U) Negative Normal Negative [facility] Comment on above: Order Comment: Speci men Type: BLOOD SPECIMEN Ordering Facility: [facility] Address: [address] [place] [address] Result Comment: Cuto ff threshold at 300 ng/mL. Performed By: #### 5 0190-8, 2275-4 #### [facility] CLIA [id number] [address] [place] [address] [place] oxyCODONE cutoff Screen (U) [Mass/Vol] Negative Normal Negative [facility] Comment on above: Order Comment: Speci men Type: BLOOD SPECIMEN Ordering Facility: [facility] Address: [address] [place] [address] Result Comment: Cuto ff threshold at 100 ng/mL. Performed By: #### 5 0190-8, 2275-4 #### [facility] CLIA [id number] [address] [place] [address] [place] Phencyclidine Ql (U) Negative Normal Negative [facility] Comment on above: Order Comment: Speci men Type: BLOOD SPECIMEN Ordering Facility: [facility] Address: [address] [place] [address] Result Comment: Cuto ff threshold at 25 ng/mL. Performed By: #### 5 0190-8, 2275-4 #### [facility] CLIA [id number] [address] [place] [address] [place] Basic metabolic 2000 panelon 07-12-2025 Anion gap [Moles/Vol] 12 mmol/L Normal 8-15 [facility] Comment on above: Order Comment: Speci men Type: BLOOD SPECIMEN Ordering Facility: [facility] Address: [address] [place] [address] Performed By: #### 5 0190-8, 2275-4 #### [facility] CLIA [id number] [address] [place] [address] [place] Calcium [Mass/Vol] 9.6 mg/dL Normal 8.5-10.2 [facility] Comment on above: Order Comment: Speci men Type: BLOOD SPECIMEN Ordering Facility: [facility] Address: [address] [place] [address] Performed By: #### 5 0190-8, 2276-01 #### [facility] CLIA [id number] [address] [place] [address] [place] Chloride [Moles/Vol] 98 mmol/L Normal 98-107 [facility] Comment on above: Order Comment: Speci men Type: BLOOD SPECIMEN Ordering Facility: [facility] Address: [address] [place] [address] Performed By: #### 5 0190-8, 2275-4 #### [facility] CLIA [id number] [address] [place] [address] [place] CO2 [Moles/Vol] 22 mmol/L Normal 22-30 [facility] Comment on above: Order Comment: Speci men Type: BLOOD SPECIMEN Ordering Facility: [facility] Address: [address] [place] [address] Performed By: #### 5 0190-8, 2276-4 #### [facility] CLIA [id number] [address] [place] [address] [place] Creatinine [Mass/Vol] 0.81 mg/dL Normal 0.58-0.96 [facility] Comment on above: Order Comment: Carlos Manuel gilmore Type: BLOOD SPECIMEN Ordering Facility: [facility] Address: [address] [place] [address] Performed By: #### 5 0190-8, 6-4 #### [facility] CLIA [id number] [address] [place] [address] [place] eGFRcr SerPlBld CKD-EPI 2020 84 mL/min/1.73m??? Normal >=60 [facility] Comment on above: Order Comment: Carlos Manuel gilmore Type: BLOOD SPECIMEN Ordering Facility: [facility] Address: [address] [place] [address] Result Comment: Osiris mated Glomerular Filtration Rate (eGFR) is calculated using the 2020 CKD-EPI creatinine equation. This equation utilizes serum creatinine, sex, and age as parameters. The creatinine assay has traceable calibration to isotope dilution-mass spectrometry. Refer to KDIGO guidelines for clinical interpretation. In patients with unstable renal function, e.g. those with acute kidney injury, the eGFR may not accurately reflect actual GFR. Performed By: #### 5 0190-8, 6-4 #### [facility] CLIA [id number] [address] [place] [address] [place] Glucose [Mass/Vol] 88 mg/dL Normal 74-99 [facility] Comment on above: Order Comment: Carlos Manuel gilmore Type: BLOOD SPECIMEN Ordering Facility: [facility] Address: [address] [place] [address] Result Comment: The [place] Diabetes Association (ADA) provides guidance for cutoff values for fasting glucose and random glucose. The ADA defines fasting as no caloric intake for at least 8 hours. Fasting plasma glucose results between 100 to 125 [...] Standards of Medical Care in Diabetes 2016, [place] [employer] Association. Diabetes Care. 2016.39(Suppl 1). Performed By: #### 5 0190-8, 2275- #### [facility] CLIA [id number] [address] [place] [address] [place] Potassium [Moles/Vol] 4.5 mmol/L Normal 3.7-5.1 [facility] Comment on above: Order Comment: Carlos Manuel gilmore Type: BLOOD SPECIMEN Ordering Facility: [facility] Address: [address] [place] [address] Performed By: #### 5 0190-8, 2276-01 #### [facility] CLIA [id number] [address] [place] [address] [place] Sodium [Moles/Vol] 132 mmol/L Low 136-144 [facility] Comment on above: Order Comment: Carlos Manuel gilmore Type: BLOOD SPECIMEN Ordering Facility: [facility] Address: [address] [place] [address] Performed By: #### 5 0190-8, 2276-01 #### [facility] CLIA [id number] [address] [place] [address] [place] Urea nitrogen [Mass/Vol] 9 mg/dL Normal 7-21 [facility] Comment on above: Order Comment: Arleti men Type: BLOOD SPECIMEN Ordering Facility: [facility] Address: [address] [place] [address] Performed By: #### 5 0190-8, 2275- #### [facility] CLIA [id number] [address] [place] [address] [place] CNPNon 07-03-2025 CNPN Telephone (AGCARDPOB) GAMALMARCIAL Ming ([id number]) 1965 F NFR Date Time Provider Department 07/03/25 ALBINA LUONG AGCARDPOB During your visit today, we recorded the following information about you: Rosalie Harding LPN 07/03/2025 12:02 PM Signed Received cardiac clearance [facility] for EGD with MAC sedation, scheduling TBD. Form placed in Dr. Luong's door box for review. YOANNA Cárdenas Elise 07/04/2025 5:26 PM Signed Signed clearance faxed back to doctor and scanned in. Margarita Kilgore Allergies As of Date: 07/03/2025 Noted Allergy Reaction 2-OCTYL CYANOACRYLATE 05/25/2021 2 - Rash Comments: Blistering contact reaction CITALOPRAM 09/07/2017 14 - Other: See Comments Comments: Did not tolerate, ? 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 - traZODone (DESYREL) 50 mg tablet TAKE 1 AND 1/2 TABLETS BY MOUTH EVERY NIGHT AT BEDTIME - azelastine 0.1% nasal spray Use 2 sprays in each nostril two times a day. - ARNUITY ELLIPTA 200 mcg/actuation inhaler Inhale 1 puff as instructed once daily. - gabapentin (NEURONTIN) 100 mg capsule Take 2 capsules by mouth daily at bedtime. - Ipratropium [place] (ATROVENT) 21 mcg (0.03 %) nasal spray Use 2 sprays in the nose three times a day. - ipratropium bromide (ATROVENT) 42 mcg (0.06 %) nasal spray Use 2 sprays in the nose three times a day as needed. - levalbuterol tartrate HFA 45 mcg/actuation inhaler Inhale 1-2 puffs as instructed every 4 hours as needed for wheezing/shortness of breath. - montelukast (SINGULAIR) 10 mg tablet Take 1 tablet by mouth daily at bedtime. - rimegepant (NURTEC ODT) 75 mg disintegrating tablet dissolve 1 tablet orally AT ONSET OF MIGRAINE and may repeat ONCE PER 24 HOURS IF NEEDED - pantoprazole DR (PROTONIX) 40 mg tablet Take 1 tablet by mouth two times a day. - fexofenadine (LAURA ALLERGY) 180 mg tablet Take 1 tablet by mouth once daily. - DULoxetine (CYMBALTA) 20 mg capsule Take 20 mg by mouth every morning. - zaleplon (SONATA) 10 mg capsule bring to sleep study - Estradiol (VAGIFEM) 10 mcg vaginal tablet INSERT 1 TABLET VAGINALLY TWICE EVERY 7 DAYS - ondansetron (ZOFRAN) 8 mg tablet Take 8 mg by mouth three times a day as needed. - tiZANidine (ZANAFLEX) 4 mg tablet Take 1 tablet by mouth every 8 hours as needed. prn - codeine-guaiFENesin (ROBITUSSIN AC) 10-100 mg/5 mL syrup - primidone (MYSOLINE) 50 mg tablet Take 50 mg by mouth four times daily. Taking 1/4 to 1/2 tab currently - metoprolol succinate ER (TOPROL XL) 25 mg 24 hr tablet Take 1 tablet by mouth every afternoon. - IMVEXXY MAINTENANCE PACK 10 mcg inst INSERT 1 TABLET VAGINALLY 2 TIMES A WEEK - levalbuterol (XOPENEX) 1.25 mg/3 mL nebulizer solution Inhale 1 ampule via nebulizer 4x daily as needed. - Nebulizer and Compressor For Neb (PORTABLE NEBULIZER SYSTEM) 1 Each every 4 hours as needed. - cephALEXin (KEFLEX) 250 mg capsule Take 250 mg by mouth once daily as needed (after intercourse). - ondansetron (ZOFRAN) 4 mg tablet take 1 tablet by mouth every 8 hours if needed for nausea and vomiting - dicyclomine (BENTYL) 10 mg capsule Take 1 capsule by mouth three times daily. - estradiol (NOBLE, VIVELLE-DOT) 0.025 mg/24 hr 1 Patch every Tuesday and Tuesday. Problem List As Of Date 07/03/2025 Noted Resolved Asthma [J45.909] Abnormal involuntary movements(781.0) [R25.8, R*12/06/2005 11/13/2015 Adjustment disorder with depressed mood [F43.21]12/06/2005 10/19/2019 Acute gastritis without mention of hemorrhage [*12/06/2005 11/13/2015 ASCUS favor benign [R87.610] 01/29/2009 11/17/2011 CERVICAL HPV DNA POSITIVE [R87.810] 01/29/2009 ADD (attention deficit disorder) [F98.8] 07/29/2009 02/02/2021 Chronic insomnia [F51.04] 02/16/2012 Rapid palpitations [R00.2] 02/18/2014 03/23/2018 Xfjwp-Emkdrpbox-Xazr e (WPW) syndrome [I45.6] 02/18/2014 03/23/2018 Chest discomfort [R07.89] 02/18/2014 11/13/2015 Abnormal uterine bleeding [N93.9] 04/17/2014 09/02/2014 Anxiety [F41.9] 05/21/2014 Primary insomnia [F51.01] 06/11/2015 11/29/2023 Stress incontinence in female [N39.3] 11/13/2015 Encounter for screening colonoscopy [Z12.11] 08/10/2016 Complex cyst of right ovary [N83.291] 12/10/2016 Biliary dyskinesia [K82.8] 11/01/2017 WPW (Eriuk-Ehjwzmywz-Roj te syndrome) [I45.6] Gastro-esophageal reflux disease without esopha*07/08/2017 Chronic sinusitis, unspecified [J32.9] 06/30/2017 (more content not included)... Normal [facility] G[facility]enterology Visit Repor ton 06-27-2025 Gastroenterology Visit Report [facility] [address] [place] [address] OFFICE VISIT Date of Service: 06/27/25 MR#: [id number] Acct: [id number] Name: MARCIAL YEUNG Rep #: [id number] : 1965 Provider: Justsu Ghosh, Age/Sex: 60/F Location: [facility] Status: Signed Intake Vital Signs 03/06/25 14:23 Height 5 ft 2 in Intake Visit Reasons: Test Result Allergies citalopram Allergy (Intermediate, Verified 05/07/25 09:39) Other 2-octyl cyanoacrylate (octyl 2-cyanoacrylate) Allergy (Verified 05/07/25 09:39) Hives Tetracyclines Allergy (Verified 05/07/25 09:39) Unknown propranolol Adverse Reaction (Verified 05/07/25 09:39) Other Medications ???Medication ???Instructions ???Recorded ???Confirmed ???Type multivitamin with folic acid 400 1 tab PO DAILY 05/30/14 06/27/25 H istory mcg tablet trazodone 50 mg tablet 50 mg PO QHS sleep 05/30/14 History rimegepant 75 mg disintegrating 75 mg PO PRN PRN MIGRAINES 1 06/27/25 History tablet (Nurtec ODT) phenazopyridine 100 mg tablet 100 mg PO TID PRN pain 6 doses #10 07/31/21 06/27/25 Rx (Pyridium) tabs dicyclomine 10 mg capsule 10 mg PO BID PRN 08/01/23 06/27/25 History fluticasone furoate 200 1 inh inhalation DAILY 08/01/23 History mcg/actuation blister powder for inhalation (Arnuity Ellipta) metoprolol succinate 25 mg 25 mg PO DAILY 08/01/23 06/27/25 H istory tablet,extended release 24 hr estradiol 0.025 mg/24 hr 1 patch topical 2XW #8 patches 06/27/25 Rx semiweekly transdermal patch fexofenadine 180 mg tablet 180 mg PO Q24H 12/20/24 06/27/25 H istory gabapentin 100 mg capsule 100 mg PO BID 12/20/24 06/27/25 Hi story ipratropium bromide 21 mcg (0.03 2 spray intranasal BID 12/20/24 History %) nasal spray magnesium 250 mg tablet 250 mg PO QDAY 12/20/24 06/27/25 H istory montelukast 10 mg tablet 10 mg PO QDAY 12/20/24 06/27/25 Hi story primidone 50 mg tablet 50 mg PO ONCE 12/20/24 06/27/25 Hi story tizanidine 4 mg capsule 4 mg PO QHS PRN 12/20/24 06/27/25 History tramadol 50 mg tablet 50 mg PO QDAY 12/20/24 06/27/25 Hi story estradiol 10 mcg vaginal insert 10 mcg vaginal 2XW #8 inserts 04/0306/27/25 Rx (Imvexxy Maintenance Pack) ondansetron HCl 4 mg tablet 4 mg PO Q8H PRN nausea and 06/27/25 Rx vomiting #45 tabs rabeprazole 20 mg tablet,delayed 20 mg PO BID #60 tabs 05/07/25 Rx release rifaximin 550 mg tablet 550 mg PO TID #42 tabs 05/07/25 Rx PFSH Medical History PVC (premature ventricular contraction) Nausea IBS (irritable bowel syndrome) Intermittent lower abdominal pain Other urethral stricture, female Urinary tract infection Urinary tract infection Wears contact lenses History of steroid therapy Migraine headache Injury of head and neck Gastric reflux Non-smoker Asthma History of echocardiogram History of stress test Cardiology follow-up encounter History of irregular heartbeat Zipfu-Dedgvlybu-Ejcq e syndrome Abnormal Pap smear of cervix Surgical History S/P colonoscopy S/P endoscopy History of cardiac catheterization History of cardiac radiofrequency ablation Hx of colonoscopy Hx laparoscopic cholecystectomy History of endometrial ablation S/P laparoscopic assisted vaginal hysterectomy (LAVH) S/P oophorectomy S/P tonsillectomy and adenoidectomy S/P breast augmentation S/P Family History Uncle Brain cancer Lung cancer Grandfather Heart disease Colon cancer Social History number of children: 3 current occupational status: employed 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 OV 8.5.25 Patient presents today for a check up with GERD, she also states she has some stomach pain. She reports she has some constipation and she also has some diarrhea. She has been having pain and cramps almost similar to period cramps on the right side and lower abdomen. Patient has a lot of nausea going on. States she hasn't had much of an appetite. GET 8.19.25 upper limits of normal Manometry 9.5.25 hypercontractile esophagus OV 9.25.25 pt reports that she is h (more content not included)... Normal [facility] Gastric Emptying Studyon Gastric Emptying Study [facility] Imaging Services [address] [place] [id number] Gastric Emptying Study MR#: [id number] Acct: [id number] Name: MARCIAL YEUNG Rep #: [id number] : 1965 F 59 From: Davy Nguyễn PCP: Dr. Dasia Auguste, DO Status: REG CLI Study: Gastric Emptying Study Date of Exam: 05/21/25 Exam# [id number] Ordering Dr: Kassie Valdes PROCEDURE: GASTRIC EMPTYING STUDY 05/21/2025 REASON FOR EXAM: FREQUENT NAUSEA. Abdominal pain. Alternating constipation and diarrhea. COMPARISON: None. TECHNIQUE: The patient ingested a semi-solid meal of oatmeal. There was no vomiting postprandially. Anterior and posterior planar images of the upper abdomen were obtained for a total of 60 minutes. Regions of interest were drawn, and a geometric mean was used to calculate a hhlg-euekrcqg-wapsq. Medications taken in the past 24 hours that may affect gastric emptying: None RADIOPHARMACEUTICAL: Technetium 99 M sulfur colloid DOSE 1mCi orally with the oatmeal. FINDINGS: During the time of imaging, gastroesophageal reflux was not seen. Linear fit gastric emptying half-time of 57.9 minutes. Raw data gastric emptying half-time of 58.4 minutes. Gastric emptying at 18.5 minutes of 8%, at 29.5 minutes of 20%, at 47.5 minutes of 39%, and at 59.5 minutes of 52%. NM/Gastric Emptying Study IMPRESSION: Normal semi solid phase gastric emptying. Reading Location: [place] [address] CC: TANISHA Valdes; Dr. Dasia Auguste DO 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Signed Normal [facility] Gastroenterology Visit Repor ton 05-07-2025 Gastroenterology Visit Report [facility] Gastroenterology [address] [place] [address] OFFICE VISIT Date of Service: 05/07/25 MR#: [id number] Acct: [id number] Name: MARCIAL YEUNG Rep #: [id number] : 1965 Provider: TANISHA mazariegos Age/Sex: 59/F Location: [facility] Status: Signed Intake Vital Signs 03/06/25 14:23 Height 5 ft 2 in Intake Visit Reasons: Gastroesophageal reflux disease (GERD) Chief Complaint: GERD Director Of Sports Performance Required: No Accompanied by: Self Is patient in pain?: Yes Allergies citalopram Allergy (Intermediate, Verified 05/07/25 09:39) Other 2-octyl cyanoacrylate (octyl 2-cyanoacrylate) Allergy (Verified 05/07/25 09:39) Hives Tetracyclines Allergy (Verified 05/07/25 09:39) Unknown propranolol Adverse Reaction (Verified 05/07/25 09:39) Other Medications ???Medication ???Instructions ???Recorded ???Confirmed ???Type multivitamin with folic acid 400 1 tab PO DAILY 05/30/14 05/07/25 H istory mcg tablet trazodone 50 mg tablet 50 mg PO QHS sleep 05/30/14 History rimegepant 75 mg disintegrating 75 mg PO PRN PRN MIGRAINES 1 05/07/25 History tablet (Nurtec ODT) phenazopyridine 100 mg tablet 100 mg PO TID PRN pain 6 doses #10 07/31/21 05/07/25 Rx (Pyridium) tabs dicyclomine 10 mg capsule 10 mg PO BID PRN 08/01/23 05/07/25 History fluticasone furoate 200 1 inh inhalation DAILY 08/01/23 History mcg/actuation blister powder for inhalation (Arnuity Ellipta) metoprolol succinate 25 mg 25 mg PO DAILY 08/01/23 05/07/25 H istory tablet,extended release 24 hr estradiol 0.025 mg/24 hr 1 patch topical 2XW #8 patches 05/07/25 Rx semiweekly transdermal patch fexofenadine 180 mg tablet 180 mg PO Q24H 12/20/24 05/07/25 H istory gabapentin 100 mg capsule 100 mg PO BID 12/20/24 05/07/25 Hi story ipratropium bromide 21 mcg (0.03 2 spray intranasal BID 12/20/24 History %) nasal spray magnesium 250 mg tablet 250 mg PO QDAY 12/20/24 05/07/25 H istory montelukast 10 mg tablet 10 mg PO QDAY 12/20/24 05/07/25 Hi story primidone 50 mg tablet 50 mg PO ONCE 12/20/24 05/07/25 Hi story tizanidine 4 mg capsule 4 mg PO QHS PRN 12/20/24 05/07/25 History tramadol 50 mg tablet 50 mg PO QDAY 12/20/24 05/07/25 Hi story estradiol 10 mcg vaginal insert 10 mcg vaginal 2XW #8 inserts 04/0305/07/25 Rx (Imvexxy Maintenance Pack) ondansetron HCl 4 mg tablet 4 mg PO Q8H PRN nausea and 5 05/07/25 Rx vomiting #45 tabs rabeprazole 20 mg tablet,delayed 20 mg PO BID #60 tabs 05/07/2502/24 Rx release rifaximin 550 mg tablet 550 mg PO TID #42 tabs 05/07/25 Rx Nurse's Note: Patient presents today for a check up with GERD, she also states she has some stomach pain. She reports she has some constipation and she also has some diarrhea. She has been having pain and cramps almost similar to period cramps on the right side and lower abdomen. Patient has a lot of nausea going on. States she hasn't had much of a apetite. PFSH Medical History PVC (premature ventricular contraction) Nausea IBS (irritable bowel syndrome) Intermittent lower abdominal pain Other urethral stricture, female Urinary tract infection Urinary tract infection Wears contact lenses History of steroid therapy Migraine headache Injury of head and neck Gastric reflux Non-smoker Asthma History of echocardiogram History of stress test Cardiology follow-up encounter History of irregular heartbeat Obvgx-Pvrmwkphy-Dror e syndrome Abnormal Pap smear of cervix Surgical History S/P colonoscopy S/P endoscopy History of cardiac catheterization History of cardiac radiofrequency ablation Hx of colonoscopy Hx laparoscopic cholecystectomy History of endometrial ablation S/P laparoscopic assisted vaginal hysterectomy (LAVH) S/P oophorectomy S/P tonsillectomy and adenoidectomy S/P breast augmentation S/P Family History Uncle Brain cancer Lung cancer Grandfather Heart disease Colon cancer Social History number of children: 3 current occupational status: employed 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 Normal [facility] CNOVon 05-03-2025 [facility] MARCIAL YEUNG ([id number]) 1965 F NFR Date Time Provider Department 05/03/25 10:40 AM DEVEN LOGAN [facility] During your visit today, we recorded the following information about you: Temperature Pulse Respiration Blood pressure 96.8 degrees 83/minute 17/minute 134/87 Weight Height 60.4 kg 1.575 m Deven oLgan MD 05/03/2025 11:47 AM Signed Allergy AND Immunology Established Visit PATIENT NAME: Marcial Yeung SERVICE DATE: 05/03/2025 CC: Marcial Yeung is a 59-year-old female with a history of WPW and PVCs, presenting for follow-up of dyspnea and palpitations. HPI: Marcial reports experiencing dyspnea and palpitations, particularly in hot and humid weather. She notes that her heart rate increases in these conditions, requiring her to use a neck fan and seek shade or water when outdoors. She also experiences increased symptoms during rainstorms, including headaches and coughing, which improve as the storms subside. She has been using Estelin and ibuprofen regularly to manage her symptoms. In March, Marcial experienced a severe illness lasting 2.5 weeks, characterized by persistent coughing, chest heaviness, and significant weight loss (15 lbs). She required frequent use of her inhaler during this period. She underwent COVID-19 testing and a chest X-ray, which were negative. She was prescribed a steroid dose pack, which provided significant relief. She notes that higher doses of prednisone have previously exacerbated her cardiac symptoms. 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 She reports occasional PVCs and episodes of tachycardia but notes some improvement since her ablation and environmental modifications. She has removed candles from her home and installed three air purifiers to reduce triggers. She reports that her symptoms have improved since starting treatment with her pony rougher but acknowledges that she is not back to her previous baseline. She continues to manage her symptoms with her current medication regimen and environmental modifications. 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 flecainide; indication: symptomatic PSVT with WPW syndrome Other anxiety states Palpitations Paroxysmal supraventricular tachycardia (HCC) see "WPW Syndrome" Primary insomnia 06/11/2015 Sinus tachycardia 10/20/2023 Stress incontinence, female Unspecified asthma(493.90) 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; attempt at catheter ablation 11/2016 failed; she continues to experience intermittent palpitations and tachycardia despite treatment with flecainide; successful RFCA 03/2018 ACTIVE PROBLEM LIST Asthma (Hcc) Cervical High 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 Positive Chronic Insomnia Anxiety Stress Incontinence in Female Encounter for Screening Colonoscopy 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 Wpw (Odebf-Xfvkkvjms-Zgk te Syndrome) Gastro-Esophageal Reflux Disease Without Esophagitis Chronic Sinusitis, Unspecified Benign Neoplasm of Unspecified Ovary Asymptomatic Menopausal State Anxiety Disorder, Unspecified Acquired Absence of Both Cervix and Uterus Paroxysmal Supraventricular Tachycardia (Hcc) Palpitations Status Post Ablation of Accessory Bypass Tract Dyspareunia Chronic Mixed Headache Syndrome Chronic Migraine Without Aura, With Intractable Migraine, So Stated, With Status Migrainosus Intractable Chronic Migraine Without Aura and Without Status Migrainosus Chronic Daily Headache Musculoskeletal Pain Cervicalgia Chronic Tension-Type Headache, Intractable Reflux Esophagitis Intractable Chronic Migraine Without Aura and With Status Migrainosus Internal Hemorrhoids Migraine Without Aura and Without Status Migrainosus, Not Intractable Bilateral Occipital Neuralgia History of Fusion of Cervical Spine Irritable Bowel Syndrome With Diarrhea Sinus Tachycardia Chronic Migraine Without Aura, Intractable, Without Status Migrainosus Mild Persistent Asthma Without Complication (Hcc) Allergic Conjunctivitis, Bilateral Chronic Rhinitis Pvc (Premature Ventricular Contraction) Vasomotor Rhinitis 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Ilo) Allergic Contact Dermatitis Due to Adhesives Hoarseness of Voice Essential Tremor Tear of Left Acetabular Labrum Pain of Left Hip Tendinopathy of Left Gluteal Region Daytime Somnolence Chronic Midline Low Back Pain Without Scia (more content not included)... Normal [facility] CNCOon 04-18-2025 CNCO Letter Text Normal [facility] CNOVon 04-18-2025 CNOV Office Visit ([facility]) GAMALMARCIAL ([id number]) 1965 F NFR Date Time Provider Department 04/18/25 10:30 AM SHARRON HOLLIS [facility] During your visit today, we recorded the following information about you: Pulse Blood pressure Weight Height 75/minute 145/85 61.2 kg 1.575 m Sharron Hollis APRN.[facility] 04/18/2025 10:46 AM Signed Headache Center Follow-up Visit Miscellaneous Patient Concerns: Discussed Nurtec denial today. Hopefully we will be able to appeal as she has tried and failed 2 triptans - Sumatriptan and Rizatriptan. She has had side effects with triptans. Impression: Chronic migraine without aura, intractable, without status migrainosus (primary encounter diagnosis) Marcial Lai Yeung has been previously approved for an Oral Calcitonin Gene-Related Peptide Receptor Antagonist (GEPANT) Rimegepant for the treatment of abortive use. The patient has demonstrated the following: Provider attests patient has had a positive clinical response: Yes Patient will not use with another Oral Calcitonin Gene-Related Peptide Receptor Antagonist (GEPANT): Yes Patient's quality of life and ability to perform ADLs has improved: Yes The patient has tried and failed the following : We suggest the patient continue treatment with GEPANT Rimegepant. The following preventative medications have been tried for three or more months without benefit: Anti-Convulsant Gabapentin (Neurontin) Topiramate (Topamax, Trokendi XL, Qudexy) Anti-Depressant and Antipsychotic Amitriptyline (Elavil) Bupropion (Wellbutrin) Citalopram (Celexa) Fluoxetine (Prozac) Venlafaxine (Effexor) Blood Pressure Metoprolol (Lopressor,Toprol XL) Propranolol (Inderal) Botulinum Toxin Onabotulinum Toxin A (Botox) Supplements Magnesium The following abortive medications have been tried but require high frequency use which can lead to Medication Overuse Headache: Analgesic Hydrocodone/Acetamin ophen (Vicodin, [place]) Hydromorphone (Dilaudid) Meloxicam (Mobic) Meperidine (Demerol) Oxycodone Oxycodone/Acetaminop hen (Percocet) Tramadol (Ultram) Anti-Anxiety Lorazepam (Ativan) Anti-Migraine Rizatriptan (Maxalt) Sumatriptan (Imitrex, Sumavel) GEPANTS Ubrogepant (Ubrelvy) Rimegepant (Nurtec) Over the Counter Medications Acetaminophen (Tylenol) Acetaminophen/Aspiri n/Caffeine (Excedrin, Goody?s) Aspirin Ibuprofen (Advil, Motrin) Naproxen sodium (Aleve) Follow-Up Onabotulinum Toxin A (BotoxTM) for Migraine Indication: Chronic Intractable Migraine Referral Expiration: 04/08/2026 Prior to the initiation of the FIRST treatment with Onabotulinum Toxin A, the patient reported the following average headache frequency over the past 3 MONTHS: Number of moderate-severe migraine days/month: 25 Number of mild migraine days/month: 0 Number of headache free days/month: 5 (120 headache-free hours) After treatment with Onabotulinum Toxin A: Number of moderate-severe migraine days/month: 3 Number of mild migraine days/month: 3 Number of headache free days/month: 24 (576 headache-free hours) Patient reduction in overall migraine days: Yes Patient reduction in moderate-severe migraine days: Yes Patient reduction of headache hours by 100 hours or more: Yes (reduction of 456 hours) Individual has obtained clinical benefit deemed significant by individual or prescriber (Y/N): Yes Patient's quality of life and ability to perform ADLs has improved (Y/N): Yes Side effects: none The patient has been assessed for disorders which could contribute to breathing or swallowing difficulty, and there is no contraindication with PREEMPT Botox. There is no documented allergic reaction/hypersensit ivity to any botulinum toxin and there is no active infection at proposed injection site. HEADACHE SCORES: 07/17/2024 10/17/2024 01/15/2025 Headache Questions ER visits since last office visit: 0 0 0 Hospital stays since last office visit 0 0 0 Limited ADLs in the last month: 1 0 0 Days missed from work or school in the last month: 0 0 0 Days headache pain free in the last month: 25 20 20 Days per month with ALL of the following symptoms - decreased productivity, light sensitivity and nausea: 1 0 2 Initial improvement of headache after botox injection at last visit: Much improved Much improved Very much improved PRN medication usage in the last month: 5 6 Patient impression of improvement since last visit: No change No change No change 07/17/2024 10/17/2024 01/15/2025 HIT-6 HIT-6 46 (Little or no impact) 40 (Little or no impact) 42 (Little or no impact) 10/17/2024 12/29/2024 01/15/2025 KEYONNA - 2/7 SCORES KEYONNA-2 Score 0 0 0 KEYONNA-7 Score 0 07/17/2024 10/17/2024 01/15/2025 Migraine Specific QOL - Higher scores indicate better HRQL Role Function-Restrictive Transformed Score (range: 0-100) 97.14 97.14 100 Role Function-P (more content not included)... Normal [facility] 04-11-2025 CNPN Telephone (WANDAQ) MARCIAL YEUNG ([id number]) 1965 F NFR Date Time Provider Department 04/11/25 SHARRON HOLLIS During your visit today, we recorded the following information about you: Mark Noel 04/11/2025 10:42 AM Addendum Prior Authorization for Medications Requested by (MyChart, Pharmacy, Patient Call, Fax) : Pharmacy Pharmacy Name: [facility] Phone # : [phone] Name of Medication : Nurtec Dose : 75 mg If renewal, auth date expiration: n/a Prescribing Provider: Sal Last OV: 01/06/25 with Sal Insurance Provider : [facility] Is insurance card scanned in, including Rx info? Yes Insurance CoverMyMeds Javier: n/a E-PA? Yes Kim Lee MA 04/16/2025 4:01 PM Signed Answered questions in EPA pool: Prior Authorization Request Evaluation Questions Medication:rimegepan t (NURTEC ODT) 75 mg disintegrating tablet More Information This request expires on 04/17/2025 04:25 PM HEAD GREENSKEEPER. Please provide all information requested. Failure to complete this form in its entirety may result in delayed processing or an adverse determination for insufficient information. Reply deadline: April 17, 2025 5:26 PM Payer: [employer] [facility] CHRISTIANO Lawson Betsabe 04/18/2025 9:25 AM Signed Received DENIAL from [employer] for Nurtec (rimegepant) by E-PA Authorization/Denial #: [id number] Denial Reason: Patient needs to have tried two triptans for 30 days. She only tried sumatriptan for less than 30 days. Penny Jorge RN 04/18/2025 10:24 AM Signed Appeal faxed to [employer] Stella Jorge RN Allergies As of Date: 04/11/2025 Noted Allergy Reaction 2-OCTYL CYANOACRYLATE 05/25/2021 2 - Rash Comments: Blistering contact reaction CITALOPRAM 09/07/2017 14 - Other: See Comments Comments: Did not tolerate, ? Mental status changes LIQUID BANDAGE (ENBUCRILATE) 12/27/2017 2 - Rash Comments: blisters and rash PROPRANOLOL 01/25/2007 1 - Mental Status Change TETRACYCLINE 09/08/2005 8 - GI Upset Comments: Abdominal pain/cramping Date Reviewed: 01/16/2025 Reviewed by: Sharron Hollis APRN.[employer] MICROSCOPIST - Fully Assessed Reason for Visit: Insurance Authorization [[id number]] [facility] [Other] Prescriptions as of 04/18/2025 - traMADol (ULTRAM) 50 mg tablet Take 1 tablet by mouth every 12 hours for 30 days. - rimegepant ([facility]) 75 mg disintegrating tablet dissolve 1 tablet orally AT ONSET OF MIGRAINE and may repeat ONCE PER 24 HOURS IF NEEDED - pantoprazole DR (PROTONIX) 40 mg tablet Take 1 tablet by mouth two times a day. - fexofenadine (LAURA ALLERGY) 180 mg tablet Take 1 tablet by mouth once daily. - DULoxetine (CYMBALTA) 20 mg capsule Take 20 mg by mouth every morning. - zaleplon (SONATA) 10 mg capsule bring to sleep study - Estradiol (VAGIFEM) 10 mcg vaginal tablet INSERT 1 TABLET VAGINALLY TWICE EVERY 7 DAYS - ondansetron (ZOFRAN) 8 mg tablet Take 8 mg by mouth three times a day as needed. - tiZANidine (ZANAFLEX) 4 mg tablet Take 1 tablet by mouth every 8 hours as needed. prn - codeine-guaiFENesin (ROBITUSSIN AC) 10-100 mg/5 mL syrup - ARNUITY ELLIPTA 200 mcg/actuation inhaler Inhale 1 Puff as instructed once daily. - ipratropium bromide (ATROVENT) 42 mcg (0.06 %) nasal spray Use 2 Sprays in the nose three times a day as needed. - Ipratropium [place] (ATROVENT) 21 mcg (0.03 %) nasal spray Use 2 Sprays in the nose three times a day. - montelukast (SINGULAIR) 10 mg tablet Take 1 tablet by mouth daily at bedtime. - azelastine 0.1% nasal spray Use 2 Sprays in each nostril two times a day. - primidone (MYSOLINE) 50 mg tablet Take 50 mg by mouth four times daily. Taking 1/4 to 1/2 tab currently - traZODone (DESYREL) 50 mg tablet TAKE 1 AND 1/2 TABLETS BY MOUTH EVERY NIGHT AT BEDTIME - metoprolol succinate ER (TOPROL XL) 25 mg 24 hr tablet Take 1 tablet by mouth every afternoon. - IMVEXXY MAINTENANCE PACK 10 mcg inst INSERT 1 TABLET VAGINALLY 2 TIMES A WEEK - levalbuterol (XOPENEX) 1.25 mg/3 mL nebulizer solution Inhale 1 ampule via nebulizer 4x daily as needed. - Nebulizer and Compressor For Neb (PORTABLE NEBULIZER SYSTEM) 1 Each every 4 hours as needed. - gabapentin (NEURONTIN) 100 mg capsule Take 2 capsules by mouth daily at bedtime. - levalbuterol tartrate HFA 45 mcg/actuation inhaler Inhale 1-2 Puffs as instructed every 4 hours as needed for wheezing/shortness of breath. - cephALEXin (KEFLEX) 250 mg capsule Take 250 mg by mouth once daily as needed (after intercourse). - ondansetron (ZOFRAN) 4 mg tablet take 1 tablet by mouth every 8 hours if needed for nausea and vomiting - dicyclomine (BENTYL) 10 mg capsule Take 1 capsule by mouth three times daily. - estradiol (NOBLE, VIVELLE-DOT) 0.025 mg/2 (more content not included)... Normal [facility] Chest PA and Lateralon 03-06 Chest PA and Lateral [facility] Imaging Services [address] [place] [address] Chest PA and Lateral MR#: [id number] Acct: [id number] Name: MARCIAL YEUNG Rep #: [id number] : 1965 F 59 From: Ricardo Nguyễn PCP: Dr. Dasia Auguste DO Status: DEP AMB Study: Chest PA and Lateral Date of Exam: 03/06/25 Exam# [id number] Ordering Dr: Joan Queen WAREHOUSE MAN-C PROCEDURE: CHEST PA AND LATERAL 03/06/2025 REASON FOR EXAM: MILD INTERMITTENT ASTHMA WITH ACUTE EXACERBATION TECHNIQUE: Frontal and lateral views of the chest. FINDINGS: No focal consolidations. No pleural effusion or pneumothorax. Cardiac silhouette is unremarkable. No acute fractures. RAD/Chest PA and Lateral IMPRESSION: No focal consolidations. Reading Location: [id number] CC: WAREHOUSE MAN-Kalyn Queen; Dr. Dasia Auguste, 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Signed [facility] L7000.0750on 01-21-2025 P ELASTASE,FECA > 800 Normal >200 [facility] Comment on above: Result Comment: Resu lt Units: ug Elast./g Severe Pancreatic Insufficiency: <100 Moderate Pancreatic Insufficiency: 100 - 200 Normal: >200 Performed at: [address] [id number] Insurance Verification Clerk: Carmelita Perkins MD, Phone: [phone] Performed By: #### L 7000.0750, L7000.0700 ####[facility] [address] [place], [address] Calprotectin, Stoolon [address] 80 ug/g Normal 0-120 [facility] Comment on above: Result Comment: Conc entration Interpretation Follow-Up < 5 - 50 ug/g Normal None >50 -120 ug/g Borderline Re-evaluate in 4-6 weeks >120 ug/g Abnormal Repeat as clinically indicated Performed at: [address] [id number] Insurance Verification Clerk: Carmelita Perkins MD, Phone: [phone] Performed By: #### L 7000.0750, L7000.0700 ####[facility] [address] [place], [place], [id number] RAHEEM w/ Reflex Mult Confirmon 01-19-2025 RAHEEM,DIRECT Negative Normal Negative [facility] Comment on above: Result Comment: Perf ormed at: [address] [id number] Insurance Verification Clerk: Carmelita Perkins MD, Phone: [phone] Performed at: [address] [id number] Insurance Verification Clerk: Satish Curiel PhD, Phone: [phone] Performed By: #### L 3100.5450, L2100.0000, L100.0100, L500.4050, L3410.2400, L3300.1200, L5500.0550, L501.6710 #### [facility] [address] [place], [address] L5500.0550on 01-19-2025 BEEF 0.17 kU/L Abnormal Class 0/I [facility] Comment on above: Performed By: #### L 3100.5450, L2100.0000, L100.0100, L500.4050, L3410.2400, L3300.1200, L5500.0550, L501.6710 ####[facility] [address] [place], [place], [id number] CHOCOLATE <0.10 Normal Class 0 [facility] Comment on above: Performed By: #### L 3100.5450, L2100.0000, L100.0100, L500.4050, L3410.2400, L3300.1200, L5500.0550, L501.6710 ####[facility] [address] [place], [place], [id number] CODFISH <0.10 Normal Class 0 [facility] Comment on above: Performed By: #### L 3100.5450, L2100.0000, L100.0100, L500.4050, L3410.2400, L3300.1200, L5500.0550, L501.6710 ####[facility] [address] [place], [place], [id number] COMMENT Comment Normal . [facility] Comment on above: Result Comment: Daquan neumann of Specific IgE Class Description of Class ----- < 0.10 0 Negative 0.10 - 0.31 0/I Equivocal/Low 0.32 - 0.55 I Low 0.56 - 1.40 II Moderate 1.41 - 3.90 III High 3.91 - 19.00 IV Very High 19.01 - 100.00 V Very High >100.00 Very High Performed By: #### L 3100.5450, L2100.0000, L100.0100, L500.4050, L3410.2400, L3300.1200, L5500.0550, L501.6710 ####[facility] [address] [place], [address] CORN <0.10 Normal Class 0 [facility] Comment on above: Performed By: #### L 3100.5450, L2100.0000, L100.0100, L500.4050, L3410.2400, L3300.1200, L5500.0550, L501.6710 ####[facility] [address] [place], [place], [phone] EGG, WHOLE <0.10 Normal Class 0 [facility] Comment on above: Performed By: #### L 3100.5450, L2100.0000, L100.0100, L500.4050, L3410.2400, L3300.1200, L5500.0550, L501.6710 ####[facility] [address] [place], [place], [phone] MILK (COW) <0.10 Normal Class 0 [facility] Comment on above: Performed By: #### L 3100.5450, L2100.0000, L100.0100, L500.4050, L3410.2400, L3300.1200, L5500.0550, L501.6710 ####[facility] [address] [place], [place], [phone] MUSSELS <0.10 Normal Class 0 [facility] Comment on above: Performed By: #### L 3100.5450, L2100.0000, L100.0100, L500.4050, L3410.2400, L3300.1200, L5500.0550, L501.6710 ####[facility] [address] [place], [address] PEANUT <0.10 Normal Class 0 [facility] Comment on above: Performed By: #### L 3100.5450, L2100.0000, L100.0100, L500.4050, L3410.2400, L3300.1200, L5500.0550, L501.6710 ####[facility] [address] [place], [address] PORK <0.10 Normal Class 0 [facility] Comment on above: Performed By: #### L 3100.5450, L2100.0000, L100.0100, L500.4050, L3410.2400, L3300.1200, L5500.0550, L501.6710 ####[facility] [address] [place], [address] SALMON <0.10 Normal Class 0 [facility] Comment on above: Performed By: #### L 3100.5450, L2100.0000, L100.0100, L500.4050, L3410.2400, L3300.1200, L5500.0550, L501.6710 ####[facility] [address] [place], [address] SHRIMP <0.10 Normal Class 0 [facility] Comment on above: Performed By: #### L 3100.5450, L2100.0000, L100.0100, L500.4050, L3410.2400, L3300.1200, L5500.0550, L501.6710 ####[facility] [address] [place], [address] SOYBEAN <0.10 Normal Class 0 [facility] Comment on above: Performed By: #### L 3100.5450, L2100.0000, L100.0100, L500.4050, L3410.2400, L3300.1200, L5500.0550, L501.6710 ####[facility] [address] [place], [address] TUNA <0.10 Normal Class 0 [facility] Comment on above: Performed By: #### L 3100.5450, L2100.0000, L100.0100, L500.4050, L3410.2400, L3300.1200, L5500.0550, L501.6710 ####[facility] [address] [place], [place], [address] WHEAT <0.10 Normal Class 0 [facility] Comment on above: Performed By: #### L 3100.5450, L2100.0000, L100.0100, L500.4050, L3410.2400, L3300.1200, L5500.0550, L501.6710 ####[facility] [address] [place], [place], [address] Calprotectin stoolOrdered By : Kassie Valdes on 01-17-2025 Calprotectin stool 80 ug/g 0-120 [facility] Comment on above: Concentration Interp retation Follow-Up< 5 - 50 ug/g Normal None>50 -120 ug/g Borderline Re-evaluate in 4-6 weeks >120 ug/g Abnormal Repeat as clinically indicatedPerformed at: [employer] [place], [place] [id number] Director: Carmelita Perkins MD, Phone: [phone] Stool pancreatic elastase me asurement (mass/mass)Ordered By: Kassie Valdes on 01-17-2025 Elastase.pancreatic (Stl) [Mass/Mass] > 800 >200 [facility] Comment on above: Result Units: ug Ericka st./g Severe Pancreatic Insufficiency: <100 Moderate Pancreatic Insufficiency: 100 - 200 Normal: >200Performed at: [employer] [place], [place] [id number] Director: Carmelita Perkins MD, Phone: [phone] Stephanie 01-16-2025 CNOV Office Visit ([facility]) YEUNGMARCIAL COCHRAN ([id number]) 1965 F NFR Date Time Provider Department 01/16/25 11:00 AM [facility] During your visit today, we recorded the following information about you: Pulse Blood pressure Weight Height 68/minute 125/85 66.7 kg 1.575 m Sharron Hollis, KNUCKLE STRAP SEWER.ASBESTOS MICROSCOPIST 01/16/2025 11:33 AM Signed [facility] Follow-up Visit Impression: Chronic migraine without aura, intractable, without status migrainosus (primary encounter diagnosis) Marcial Yeung has been previously approved for an Oral Calcitonin Gene-Related Peptide Receptor Antagonist (GEPANT) Rimegepant for the treatment of abortive use. The patient has demonstrated the following: Provider attests patient has had a positive clinical response: Yes Patient will not use with another Oral Calcitonin Gene-Related Peptide Receptor Antagonist (GEPANT): Yes Patient's quality of life and ability to perform ADLs has improved: Yes The patient has tried and failed the following : We suggest the patient continue treatment with GEPANT Rimegepant. The following preventative medications have been tried for three or more months without benefit: Anti-Convulsant Gabapentin (Neurontin) Topiramate (Topamax, Trokendi XL, Qudexy) Anti-Depressant and Antipsychotic Amitriptyline (Elavil) Bupropion (Wellbutrin) Citalopram (Celexa) Fluoxetine (Prozac) Venlafaxine (Effexor) Blood Pressure Metoprolol (Lopressor,Toprol XL) Propranolol (Inderal) Botulinum Toxin Onabotulinum Toxin A (Botox) Supplements Magnesium The following abortive medications have been tried but require high frequency use which can lead to Medication Overuse Headache: Analgesic Hydrocodone/Acetamin ophen (Vicodin, [place]) Hydromorphone (Dilaudid) Meloxicam (Mobic) Meperidine (Demerol) Oxycodone Oxycodone/Acetaminop hen (Percocet) Tramadol (Ultram) Anti-Anxiety Lorazepam (Ativan) Anti-Migraine Rizatriptan (Maxalt) Sumatriptan (Imitrex, Sumavel) GEPANTS Ubrogepant (Ubrelvy) Rimegepant (Nurtec) Over the Counter Medications Acetaminophen (Tylenol) Acetaminophen/Aspiri n/Caffeine (Excedrin, Goody?s) Aspirin Ibuprofen (Advil, Motrin) Naproxen sodium (Aleve) Follow-Up Onabotulinum Toxin A (BotoxTM) for Migraine Indication: Chronic Intractable Migraine Referral Expiration: 09/11/2025 Prior to the initiation of the FIRST treatment with Onabotulinum Toxin A, the patient reported the following average headache frequency over the past 3 MONTHS: Number of moderate-severe migraine days/month: 25 Number of mild migraine days/month: 0 Number of headache free days/month: 5 (120 headache-free hours) After treatment with Onabotulinum Toxin A: Number of moderate-severe migraine days/month: 2 Number of mild migraine days/month: 8 Number of headache free days/month: 20 (480 headache-free hours) Patient reduction in overall migraine days: Yes Patient reduction in moderate-severe migraine days: Yes Patient reduction of headache hours by 100 hours or more: Yes (reduction of 360 hours) Individual has obtained clinical benefit deemed significant by individual or prescriber (Y/N): Yes Patient's quality of life and ability to perform ADLs has improved (Y/N): Yes Side effects: none The patient has been assessed for disorders which could contribute to breathing or swallowing difficulty, and there is no contraindication with PREEMPT Botox. There is no documented allergic reaction/hypersensit ivity to any botulinum toxin and there is no active infection at proposed injection site. HEADACHE SCORES: 04/17/2024 07/17/2024 10/17/2024 Headache Questions ER visits since last office visit: 0 0 0 Hospital stays since last office visit 0 0 0 Limited ADLs in the last month: 0 1 0 Days missed from work or school in the last month: 0 0 0 Days headache pain free in the last month: 25 25 20 Days per month with ALL of the following symptoms - decreased productivity, light sensitivity and nausea: 0 1 0 Initial improvement of headache after botox injection at last visit: Much improved Much improved Much improved PRN medication usage in the last month: 6 5 Patient impression of improvement since last visit: No change No change No change 04/17/2024 07/17/2024 10/17/2024 HIT-6 HIT-6 40 (Little or no impact) 46 (Little or no impact) 40 (Little or no impact) 07/17/2024 10/17/2024 12/29/2024 KEYONNA - 2/7 SCORES KEYONNA-2 Score 0 0 0 KEYONNA-7 Score 0 04/17/2024 07/17/2024 10/17/2024 Migraine Specific QOL - Higher scores indicate better HRQL Role Function-Restrictive Transformed Score (range: 0-100) 100 97.14 97.14 Role Function-Preventive Transformed Score (range: 0-100) 100 100 100 Emotional Function Transformed Score (range: 0-100) 100 100 100 10/17/2024 07/26/2024 07/17/2024 PHQ-9 Score 2 2 2 BP 125/85 Pulse 68 Ht 157.5 cm (5' 2 (more content not included)... Normal [facility] ANCAon 01-14-2025 Atypical pANCA <1:20 Normal Neg:<1:20 [facility] Comment on above: Result Comment: The atypical pANCA pattern has been observed in a significant percentage of patients with ulcerative colitis, primary sclerosing cholangitis and autoimmune hepatitis. Performed at: [facility] [address] [id number] Insurance Verification Clerk: Satish Curiel PhD, Phone: [phone] Performed at: [facility] [address] [id number] Insurance Verification Clerk: Carmelita Perkins MD, Phone: [phone] Performed By: #### L 3100.5450, L2100.0000, L100.0100, L500.4050, L3410.2400, L3300.1200, L5500.0550, L501.6710 ####[facility] [address] [place], [address] Cytoplasmic Ab <1:20 Normal Neg:<1:20 [facility] Comment on above: Performed By: #### L 3100.5450, L2100.0000, L100.0100, L500.4050, L3410.2400, L3300.1200, L5500.0550, L501.6710 ####[facility] [address] [place], [place], [id number] Perinuclear Ab. <1:20 Normal Neg:<1:20 [facility] Comment on above: Result Comment: The presence of positive fluorescence exhibiting P-ANCA or C-ANCA patterns alone is not specific for the diagnosis of Carmela's Granulomatosis (WG) or microscopic polyangiitis. Decisions about treatment should not be based solely on ANCA IFA results. The International ANCA Group Consensus recommends follow up testing of positive sera with both KY- 3 and MPO-ANCA enzyme immunoassays. As many as 5% serum samples are positive only by EIA. Ref. AM J Clin Pathol 1999;111:507-513. Performed By: #### L 3100.5450, L2100.0000, L100.0100, L500.4050, L3410.2400, L3300.1200, L5500.0550, L501.6710 ####[facility] [address] [place], [address] Celiac Disease Profileon ENDOMYSIAL IGA Negative Normal Negative [facility] Comment on above: Performed By: #### L 3100.5450, L2100.0000, L100.0100, L500.4050, L3410.2400, L3300.1200, L5500.0550, L501.6710 ####[facility] [address] [place], [place], [phone] IMMUNOGLOB A QN 110 mg/dL Normal 87-352 [facility] Comment on above: Performed By: #### L 3100.5450, L2100.0000, L100.0100, L500.4050, L3410.2400, L3300.1200, L5500.0550, L501.6710 ####[facility] [address] [place], [address] tTG IGA <2 Normal 0-3 [facility] Comment on above: Result Comment: Nega tive 0 - 3 Weak Positive 4 - 10 Positive >10 Tissue Transglutaminase (tTG) has been identified as the endomysial antigen. Studies have demonstr- ated that endomysial IgA antibodies have over 99% specificity for gluten sensitive enteropathy. Performed By: #### L 3100.5450, L2100.0000, L100.0100, L500.4050, L3410.2400, L3300.1200, L5500.0550, L501.6710 ####[facility] [address] [place], [address] L2100.0000on 01-14-2025 ACCA 14 units Normal 0-90 [facility] Comment on above: Result Comment: Nega tive: <80 Equivocal: 80-90 Positive: >90 Performed By: #### L 3100.5450, L2100.0000, L100.0100, L500.4050, L3410.2400, L3300.1200, L5500.0550, L501.6710 ####[facility] [address] [place], [place], [id number] ALCA 2 units Normal 0-60 [facility] Comment on above: Result Comment: Nega tive:<55 Equivocal: 55-60 Positive: >60 Performed By: #### L 3100.5450, L2100.0000, L100.0100, L500.4050, L3410.2400, L3300.1200, L5500.0550, L501.6710 ####[facility] [address] [place], [address] AMCA 17 units Normal 0-100 [facility] Comment on above: Result Comment: Nega tive: <90 Equivocal: 90-100 Positive: >100 This test was developed and its performance characteristics determined by [employer]. It has not been cleared or approved by the Food and Drug Administration. The FDA has determined that such clearance or approval is not necessary. Performed By: #### L 3100.5450, L2100.0000, L100.0100, L500.4050, L3410.2400, L3300.1200, L5500.0550, L501.6710 ####[facility] [address] [place], [place], [id number] Atypical pANCA Negative Normal Negative [facility] Comment on above: Performed By: #### L 3100.5450, L2100.0000, L100.0100, L500.4050, L3410.2400, L3300.1200, L5500.0550, L501.6710 ####[facility] [address] [place], [address] COMMENT Comment Normal . [facility] Comment on above: Result Comment: Hazel norah is not suggestive of Inflammatory Bowel Disease Performed By: #### L 3100.5450, L2100.0000, L100.0100, L500.4050, L3410.2400, L3300.1200, L5500.0550, L501.6710 ####[facility] [address] [place], [address] Ubaldo 6 units Normal 0-50 [facility] Comment on above: Result Comment: Nega tive: <45 Equivocal: 45-50 Positive: >50 Performed By: #### L 3100.5450, L2100.0000, L100.0100, L500.4050, L3410.2400, L3300.1200, L5500.0550, L501.6710 ####[facility] [address] [place], [address] ASCA IgG abOrdered By: Koko Valdes on 01-10-2025 Saccharomyces cerevisiae (Ubaldo)IgG 6 units 0-50 [facility] Comment on above: Negative: <45 Equivo adonay: 45-50 Positive: >50 Absolute lymphocyte countOrd ered By: Kassie Valdes on 01-10-2025 Lymphocytes Auto (Unsp spec) [#/Vol] 2.20 10*3/uL 0.83-4.51 [facility] Absolute neutrophil countOrd ered By: Kassie Valdes on 01-10-2025 Neutrophils (Bld) [#/Vol] 4.1 10*3/uL 2.0-7.7 [facility] Anion gap in Serum or Plasma Ordered By: Kassie Valdes on 01-10-2025 Anion gap [Moles/Vol] 10 mmol/L 5-15 [facility] Atypical perinuclear antineu trophil cytoplasmic antibodies measurementOrdered By: Kassie Valdes on 01-10-2025 Atypical p-ANCA <1:20 titer Neg:<1:20 [facility] Comment on above: *Additional results available. Contact laboratory/see report*The atypical pANCA pattern has been observed in asignificant percentage of patients with ulcerative colitis,primary sclerosing cholangitis and autoimmune hepatitis.Performed at: [facility] [employer] [id number] Director: Satish Curiel PhD, Phone: [phone] at: [facility] [id number] Director: Carmelita Perkins MD, Phone: [phone] Automated lymphocyte count a s percentage of total leukocytesOrdered By: Kassie Valdes on 01-10-2025 Lymphocytes/100 WBC Auto (Unsp spec) 31.1 % - [facility] BUN/creatinine ratioOrdered By: Kassie Valdes on 01-10-2025 Urea nitrogen/Creatinine [Mass ratio] 11.8 mg/mg - [facility] Basophil percentageOrdered B y: Kassie Valdes on 01-10-2025 Basophils/100 WBC (Bld) 0.6 % 0- [facility] Bilirubin, totalOrdered By: Kassie Valdes on 01-10-2025 Bilirubin [Mass/Vol] 0.26 mg/dL 0.00-1.30 [facility] CBC W/Diff, Automatedon 01-01 Absolute Lymph 2.20 X10 3/uL Normal 0.83-4.51 [facility] Comment on above: Performed By: #### L 3100.5450, L2100.0000, L100.0100, L500.4050, L3410.2400, L3300.1200, L5500.0550, L501.6710 #### [facility] [address] [place], [address] Absolute Neut 4.1 X10 3/uL Normal 2.0-7.7 [facility] Comment on above: Performed By: #### L 3100.5450, L2100.0000, L100.0100, L500.4050, L3410.2400, L3300.1200, L5500.0550, L501.6710 #### [facility] [address] [place], [address] Basophils/100 WBC (Bld) 0.6 % Normal 0-1 [facility] Comment on above: Performed By: #### L 3100.5450, L2100.0000, L100.0100, L500.4050, L3410.2400, L3300.1200, L5500.0550, L501.6710 #### [facility] [address] [place], [address] Eosinophils/100 WBC (Bld) 0.7 % Normal 0-5 [facility] Comment on above: Performed By: #### L 3100.5450, L2100.0000, L100.0100, L500.4050, L3410.2400, L3300.1200, L5500.0550, L501.6710 #### [facility] [address] [place], [address] Erythrocyte distribution width (RBC) [Ratio] 13.2 % Normal 11.6-14.6 [facility] Comment on above: Performed By: #### L 3100.5450, L2100.0000, L100.0100, L500.4050, L3410.2400, L3300.1200, L5500.0550, L501.6710 #### [facility] [address] [place], [address] Hematocrit (Bld) [Volume fraction] 36.2 % Low 37-47 [facility] Comment on above: Performed By: #### L 3100.5450, L2100.0000, L100.0100, L500.4050, L3410.2400, L3300.1200, L5500.0550, L501.6710 #### [facility] [address] [facility] [place], [address] Hemoglobin (Bld) [Mass/Vol] 11.6 g/dL Low 12.0-15. 0 [facility] Comment on above: Performed By: #### L 3100.5450, L2100.0000, L100.0100, L500.4050, L3410.2400, L3300.1200, L5500.0550, L501.6710 #### [facility] [address] [facility] [place], [address] IG% 0.400 Normal 0.0-0.9 [facility] Comment on above: Result Comment: IG% - Immature Granulocytes (promyelocytes, myelocytes and metamyelocytes) > 1% indicates that a LEFT SHIFT is Present. Performed By: #### L 3100.5450, L2100.0000, L100.0100, L500.4050, L3410.2400, L3300.1200, L5500.0550, L501.6710 #### [facility] [address] [facility] [place], [address] Lymphocytes/100 WBC (Bld) 31.1 % Normal 19-41 [facility] Comment on above: Performed By: #### L 3100.5450, L2100.0000, L100.0100, L500.4050, L3410.2400, L3300.1200, L5500.0550, L501.6710 #### [facility] [address] [facility] [place], [address] MCH (RBC) [Entitic mass] 28.9 pg Normal 27.0-32.0 [facility] Comment on above: Performed By: #### L 3100.5450, L2100.0000, L100.0100, L500.4050, L3410.2400, L3300.1200, L5500.0550, L501.6710 #### [facility] [address] [place], [address] MCHC (RBC) [Mass/Vol] 32.0 g/dL Normal 32-36 [facility] Comment on above: Performed By: #### L 3100.5450, L2100.0000, L100.0100, L500.4050, L3410.2400, L3300.1200, L5500.0550, L501.6710 #### [facility] [address] [place], [address] MCV (RBC) [Entitic vol] 90.3 fL Normal 81-99 [facility] Comment on above: Performed By: #### L 3100.5450, L2100.0000, L100.0100, L500.4050, L3410.2400, L3300.1200, L5500.0550, L501.6710 #### [facility] [address] [place], [address] Monocytes/100 WBC (Bld) 9.7 % Normal 0-10 [facility] Comment on above: Performed By: #### L 3100.5450, L2100.0000, L100.0100, L500.4050, L3410.2400, L3300.1200, L5500.0550, L501.6710 #### [facility] [address] [place], [address] Neutrophils/100 WBC (Bld) 57.5 % Normal 47-70 [facility] Comment on above: Performed By: #### L 3100.5450, L2100.0000, L100.0100, L500.4050, L3410.2400, L3300.1200, L5500.0550, L501.6710 #### [facility] [address] [place], [address] Nucleated RBC (Bld) [#/Vol] 0 10*3/uL Normal 0-5 [facility] Comment on above: Performed By: #### L 3100.5450, L2100.0000, L100.0100, L500.4050, L3410.2400, L3300.1200, L5500.0550, L501.6710 #### [facility] [address] [place], [address] Platelet mean volume (Bld) [Entitic vol] 10.8 fL Normal 6.2-12.0 [facility] Comment on above: Performed By: #### L 3100.5450, L2100.0000, L100.0100, L500.4050, L3410.2400, L3300.1200, L5500.0550, L501.6710 #### [facility] [address] [place], [address] Platelets (Bld) [#/Vol] 297 10*3/uL Normal 150-450 [facility] Comment on above: Performed By: #### L 3100.5450, L2100.0000, L100.0100, L500.4050, L3410.2400, L3300.1200, L5500.0550, L501.6710 #### [facility] [address] [place], [address] RBC (Bld) [#/Vol] 4.01 10*6/uL Low 4.2-5.4 [facility] Comment on above: Performed By: #### L 3100.5450, L2100.0000, L100.0100, L500.4050, L3410.2400, L3300.1200, L5500.0550, L501.6710 #### [facility] [address] [place], [address] RDW SD 43.7 fl Normal 35.1-43.9 [facility] Comment on above: Performed By: #### L 3100.5450, L2100.0000, L100.0100, L500.4050, L3410.2400, L3300.1200, L5500.0550, L501.6710 #### [facility] [address] [place], [address] WBC (Bld) [#/Vol] 7.1 10*3/uL Normal 4.4-11.0 [facility] Comment on above: Performed By: #### L 3100.5450, L2100.0000, L100.0100, L500.4050, L3410.2400, L3300.1200, L5500.0550, L501.6710 #### [facility] [address] [place], [address] CRPon 01-10-2025 C-REACTIVE PROT < 3.00 Normal 0.0-3.0 [facility] Comment on above: Performed By: #### L 3100.5450, L2100.0000, L100.0100, L500.4050, L3410.2400, L3300.1200, L5500.0550, L501.6710 ####[facility] [address] [place], [address] CRP [Mass/Vol]Ordered By: Saul Valdes on 01-10-2025 C-Reactive Protein Extended Range < 3.00 mg/L 0.0-3.0 [facility] Carbon dioxide, total [Moles /volume] in Central venous bloodOrdered By: Kassie Valdes on 01-10-2025 CO2 [Moles/Vol] 22.9 mmol/L 21.0-32.0 [facility] Centromere B antibody assayO rdered By: Kassie Valdes on 01-10-2025 Centromere B Antibody TNP [facility] Comment on above: Test not performed Chitobioside IgA IA QnOrdere d By: Kassie Valdes on 01-10-2025 Chitobioside Carbohydrat (ACCA) IgA 14 units 0-90 [facility] Comment on above: Negative: <80 Equivo adonay: 80-90 Positive: >90 Chitobioside IgA antibody as sayOrdered By: Kassie Valdes on 01-10-2025 Chitobioside IgA IA Qn 14 units 0-90 [facility] Comment on above: Negative: <80 Equivo adonay: 80-90 Positive: >90 Chloride assayOrdered By: Saul Valdes on 01-10-2025 Chloride [Moles/Vol] 100 mmol/L 98-108 [facility] Chromatin antibody assayOrde red By: Kassie Valdes on 01-10-2025 Antichromatin Antibodies TNP [facility] Comment on above: Test not performed Comprehensive Metabolic Prof ilon 01-10-2025 Albumin [Mass/Vol] 4.4 g/dL Normal 3.5-5.0 [facility] Comment on above: Performed By: #### L 3100.5450, L2100.0000, L100.0100, L500.4050, L3410.2400, L3300.1200, L5500.0550, L501.6710 ####[facility] [address] [place], [address] Albumin/Globulin [Mass ratio] 1.9 {ratio} Normal 0.9-2.4 [facility] Comment on above: Performed By: #### L 3100.5450, L2100.0000, L100.0100, L500.4050, L3410.2400, L3300.1200, L5500.0550, L501.6710 ####[facility] [address] [place], [address] ALK PHOS 53 U/L Normal 35-104 [facility] Comment on above: Performed By: #### L 3100.5450, L2100.0000, L100.0100, L500.4050, L3410.2400, L3300.1200, L5500.0550, L501.6710 ####[facility] [address] [place], [address] ALT [Catalytic activity/Vol] 15 U/L Normal <=34 [facility] Comment on above: Performed By: #### L 3100.5450, L2100.0000, L100.0100, L500.4050, L3410.2400, L3300.1200, L5500.0550, L501.6710 ####[facility] [address] [place], [address] AST [Catalytic activity/Vol] 21 U/L Normal <=31 [facility] Comment on above: Performed By: #### L 3100.5450, L2100.0000, L100.0100, L500.4050, L3410.2400, L3300.1200, L5500.0550, L501.6710 ####[facility] [address] [place], [address] Bilirubin [Mass/Vol] 0.26 mg/dL Normal 0.00-1.30 [facility] Comment on above: Performed By: #### L 3100.5450, L2100.0000, L100.0100, L500.4050, L3410.2400, L3300.1200, L5500.0550, L501.6710 ####[facility] [address] [place], [address] BUN/CRE 11.8 RATIO Normal 10-20 [facility] Comment on above: Performed By: #### L 3100.5450, L2100.0000, L100.0100, L500.4050, L3410.2400, L3300.1200, L5500.0550, L501.6710 ####[facility] [address] [place], [address] Calcium [Mass/Vol] 9.2 mg/dL Normal 7.6-11.0 [facility] Comment on above: Performed By: #### L 3100.5450, L2100.0000, L100.0100, L500.4050, L3410.2400, L3300.1200, L5500.0550, L501.6710 ####[facility] [address] [place], [address] Chloride [Moles/Vol] 100 mmol/L Normal 98-108 [facility] Comment on above: Performed By: #### L 3100.5450, L2100.0000, L100.0100, L500.4050, L3410.2400, L3300.1200, L5500.0550, L501.6710 ####[facility] [address] [place], [address] CO2 [Moles/Vol] 22.9 mmol/L Normal 21.0-32.0 [facility] Comment on above: Performed By: #### L 3100.5450, L2100.0000, L100.0100, L500.4050, L3410.2400, L3300.1200, L5500.0550, L501.6710 ####[facility] [address] [place], [address] Creatinine [Mass/Vol] 1.23 mg/dL High 0.70-1.20 [facility] Comment on above: Performed By: #### L 3100.5450, L2100.0000, L100.0100, L500.4050, L3410.2400, L3300.1200, L5500.0550, L501.6710 ####[facility] [address] [place], [address] GAP 10 Normal 5-15 [facility] Comment on above: Performed By: #### L 3100.5450, L2100.0000, L100.0100, L500.4050, L3410.2400, L3300.1200, L5500.0550, L501.6710 ####[facility] [address] [place], [address] GFR/1.73 sq M.predicted among non-blacks MDRD (S/P/Bld) [Vol rate/Area] 51 mL/min/{1.73_m2} Low >60 [facility] Comment on above: Result Comment: mL/m in/1.73m2 CKD-EPI Creatinine Equation (2020) Performed By: #### L 3100.5450, L2100.0000, L100.0100, L500.4050, L3410.2400, L3300.1200, L5500.0550, L501.6710 ####[facility] [address] [place], [address] Globulin (S) [Mass/Vol] 2.4 g/dL Normal 2.2-4.2 [facility] Comment on above: Performed By: #### L 3100.5450, L2100.0000, L100.0100, L500.4050, L3410.2400, L3300.1200, L5500.0550, L501.6710 ####[facility] [address] [place], [address] Glucose [Mass/Vol] 81 mg/dL Normal 70-99 [facility] Comment on above: Performed By: #### L 3100.5450, L2100.0000, L100.0100, L500.4050, L3410.2400, L3300.1200, L5500.0550, L501.6710 ####[facility] [address] [place], [address] Potassium [Moles/Vol] 4.4 mmol/L Normal 3.3-5.1 [facility] Comment on above: Performed By: #### L 3100.5450, L2100.0000, L100.0100, L500.4050, L3410.2400, L3300.1200, L5500.0550, L501.6710 ####[facility] [address] [place], [address] Sodium [Moles/Vol] 133 mmol/L Normal 133-145 [facility] Comment on above: Performed By: #### L 3100.5450, L2100.0000, L100.0100, L500.4050, L3410.2400, L3300.1200, L5500.0550, L501.6710 ####[facility] [address] [place], [place], [id number] T PROT 6.7 g/dL Normal 5.9-8.4 [facility] Comment on above: Performed By: #### L 3100.5450, L2100.0000, L100.0100, L500.4050, L3410.2400, L3300.1200, L5500.0550, L501.6710 ####[facility] [address] [place], [place], [id number] Urea nitrogen [Mass/Vol] 15 mg/dL Normal 4-19 [facility] Comment on above: Performed By: #### L 3100.5450, L2100.0000, L100.0100, L500.4050, L3410.2400, L3300.1200, L5500.0550, L501.6710 ####[facility] [address] [place], [address] DNA double strand Ab Qn (S)O rdered By: Kassie Valdes on 01-10-2025 Anti-Double Strand DNA Antibody TNP [facility] Comment on above: Test not performed Endomysial IgA antibody assa yOrdered By: Kassie Valdes on 01-10-2025 Endomysial IgA Antibody Negative Negative [facility] Eosinophil percentageOrdered By: Kassie Valdes on 01-10-2025 Eosinophils/100 WBC (Bld) 0.7 % 0-5 [facility] Erythrocyte distribution wid th (RBC) [Ratio]Ordered By: Kassie Valdes on 01-10-2025 Erythrocyte distribution width (RBC) [Entitic vol] 43.7 fL 35.1-43.9 [facility] Erythrocyte distribution wid th ratioOrdered By: Kassie Valdes on 01-10-2025 Erythrocyte distribution width (RBC) [Ratio] 13.2 % 11.6-14.6 [facility] Erythrocyte distribution wid th standard deviationOrdered By: Kassie Valdes on 01-10-2025 Erythrocyte distribution width (RBC) [Ratio] 43.7 fl 35.1-43.9 [facility] GFR/1.73 sq M.predicted maxx g non-blacks MDRD (S/P/Bld) [Vol rate/Area]Ordered By: Kassie Valdes on 01-10-2025 Estimated GFR (MDRD) Non-Af Amer 51 Low >60 [facility] Comment on above: mL/min/1.73m2 CKD-EP I Creatinine Equation (2020) Glomerular filtration rate ( GFR) estimation/1.73 sq m using serum, plasma, or whole bOrdered By: Kassie Valdes on 01-10-2025 GFR/1.73 sq M.predicted among non-blacks MDRD (S/P/Bld) [Vol rate/Area] 51 mL/min/{1.73_m2} Low >60 [facility] Comment on above: mL/min/1.73m2 CKD-EP I Creatinine Equation (2020) Hematocrit Auto (Bld) [Volum e fraction]Ordered By: Kassie Valdes on 01-10-2025 Hematocrit (Bld) [Volume fraction] 36.2 % Low 37-47 [facility] Hemoglobin measurementOrdere d By: Kassie Valdes on 01-10-2025 Hemoglobin (Bld) [Mass/Vol] 11.6 g/dL Low 12.0-15. 0 [facility] IgA [Mass/Vol]Ordered By: Saul Valdes on 01-10-2025 Immunoglobulin A 110 mg/dL 87-352 [facility] Immature granulocytes/100 WB C Auto (Bld)Ordered By: Kassie Valdes on 01-10-2025 Immature granulocytes/100 WBC (Bld) 0.400 % 0.0-0.9 [facility] Comment on above: IG% - Immature Granu locytes (promyelocytes, myelocytes and metamyelocytes) > 1% indicates that a LEFT SHIFT is Present. Pina-1 antibody assayOrdered B y: Kassie Valdes on 01-10-2025 PINA-1 Antibody TNP [facility] Comment on above: Test not performed Laboratory - Chemistry and C hemistry - challengeOrdered By: Kassie Valdes on 01-10-2025 AST [Catalytic activity/Vol] 21 U/L <32 [facility] Laboratory - Miscellaneous t estsOrdered By: Kassie Valdes on 01-10-2025 Laboratory comment José Miguel (Report) Comment . [facility] Comment on above: Pattern is not sugge stive of Inflammatory Bowel Disease Service comment (Unsp spec) [Interp] Comment . [facility] Comment on above: Levels of Specific I gE Class Description of Class ----- < 0.10 0 Negative 0.10 - 0.31 0/I Equivocal/Low 0.32 - 0.55 I Low 0.56 - 1.40 II Moderate 1.41 - 3.90 III High 3.91 - 19.00 IV Very High 19.01 - 100.00 V Very High >100.00 Very High Laboratory comment José Miguel (Repo rt)Ordered By: Kassie Valdes on 01-10-2025 IBD Serology Comment Comment . [facility] Comment on above: Pattern is not sugge stive of Inflammatory Bowel Disease Laminaribioside IgG IA QnOrd ered By: Kassie Valdes on 01-10-2025 Laminaribioside Carbohyd (ALCA) IgG 2 units 0-60 [facility] Comment on above: Negative:<55 Equivoc al: 55-60 Positive: >60 Laminaribioside carbohydrate IgG antibody assayOrdered By: Kassie Valdes on 01-10-2025 Laminaribioside IgG IA Qn 2 units 0-60 [facility] Comment on above: Negative:<55 Equivoc al: 55-60 Positive: >60 Lymphocytes Auto (Unsp spec) [#/Vol]Ordered By: Kassie Vadles on 01-10-2025 Lymphocytes (Bld) [#/Vol] 2.20 10*3/uL 0.83-4.5 1 [facility] Lymphocytes/100 WBC Auto (Un sp spec)Ordered By: Kassie Valdes on 01-10-2025 Lymphocytes/100 WBC (Bld) 31.1 % 19-41 [facility] MCV (mean corpuscular volume ) determinationOrdered By: Kassie Valdes on 01-10-2025 MCV (RBC) [Entitic vol] 90.3 fL 81-99 [facility] Mannobioside IgG IA QnOrdere d By: Kassie Valdes on 01-10-2025 Mannobioside Carbohydrat (AMCA) IgG 17 units 0-100 [facility] Comment on above: Negative: <90 Equivo adonay: 90-100 Positive: >100 This test was developed and its performance characteristics determined by [employer]. It has not been cleared or approved by the Food and Drug Administration. The FDA has determined that such clearance or approval is not necessary. Mean corpuscular hemoglobin (MCH) determinationOrdered By: Kassie Valdes on 01-10-2025 MCH (RBC) [Entitic mass] 28.9 pg 27.0-32.0 [facility] Mean corpuscular hemoglobin concentration (MCHC) determinationOrdered By: Kassie Valdes on 01-10-2025 MCHC (RBC) [Mass/Vol] 32.0 g/dL 32-36 [facility] Mean platelet volume determi nationOrdered By: Kassie Valdes on 01-10-2025 Platelet mean volume (Bld) [Entitic vol] 10.8 fL 6.2-12.0 [facility] Monocyte percentageOrdered B y: Kassie Valdes 01-10-2025 Monocytes/100 WBC (Bld) 9.7 % 0-10 [facility] Neutrophil cytoplasmic Ab.cl assic Qn (S)Ordered By: Kassie Valdes 01-10-2025 Cytoplasmic ANCA (c-ANCA) Antibody <1:20 titer Neg:<1:20 [facility] Neutrophil cytoplasmic Ab.pe rinuclear IF (S) [Titer]Ordered By: Kassie Valdes on 01-10-2025 Perinuclear ANCA (p-ANCA) Antibody <1:20 titer Neg:<1:20 [facility] Comment on above: The presence of posi tive fluorescence exhibiting P-ANCA orC-ANCA patterns alone is not specific for the diagnosis ofWegener's Granulomatosis (WG) or microscopic polyangiitis.Decisions about treatment should not be based solely onANCA IFA results. The [employer] Consensusrecommends follow up testing of positive sera with both KY-3 and MPO-ANCA enzyme immunoassays. As many as 5% serumsamples are positive only by EIA. Ref. AM J Clin [id number];111:507-513. Neutrophil percentageOrdered By: Kassie Valdes on 01-10-2025 Neutrophils/100 WBC (Bld) 57.5 % 47-70 [facility] Nucleated red blood cell per centageOrdered By: Kassie Valdes on 01-10-2025 Nucleated RBC/100 WBC (Bld) [Ratio] 0 % 0-5 [facility] Platelet countOrdered By: Saul Valdes on 01-10-2025 Platelets (Bld) [#/Vol] 297 10*3/uL 150-450 [facility] Potassium (Unsp spec) [Mass/ Vol]Ordered By: Kassie Valdes on 01-10-2025 Potassium [Moles/Vol] 4.4 mmol/L 3.3-5.1 [facility] Potassium measurement (mass/ volume)Ordered By: Kassie Valdes on 01-10-2025 Potassium (Unsp spec) [Mass/Vol] 4.4 mmol/L 3.3-5.1 [facility] RBC Auto (Bld) [#/Vol]Ordere d By: Kassie Valdes on 01-10-2025 RBC (Bld) [#/Vol] 4.01 10*6/uL Low 4.2-5.4 [facility] FACILITY REHAB DIRECTOR abOrdered By: Kassie mazariegos on 01-10-2025 FACILITY REHAB DIRECTOR Antibody [facility] Comment on above: Test not performed SCL-70 extractable nuclear A b Qn (S)Ordered By: Kassie Valdes on 01-10-2025 Scl-70 (Scleroderma) Antibody [facility] Comment on above: Test not performed SS-A IgG antibody assayOrder ed By: Kassie Valdes on 01-10-2025 SS-A/Ro IgG Antibody [facility] Comment on above: Test not performed SS-B IgG antibody assayOrder ed By: Kassie Valdes on 01-10-2025 SS-B/La IgG Antibody [facility] Comment on above: Test not performed Serum DNA double strand anti body assay (units/volume)Ordered By: Kassie Valdes on 01-10-2025 DNA double strand Ab Qn (S) [facility] Comment on above: Test not performed Serum Scl-70 antibody assay (units/volume)Ordered By: Kassie Valdes on 01-10-2025 SCL-70 extractable nuclear Ab Qn (S) TNP [facility] Comment on above: Test not performed Serum beef IgE antibody assa y (units/volume)Ordered By: Kassie Valdes on 01-10-2025 Beef IgE Qn (S) 0.17 kU/L High Class 0/I [facility] Serum classic neutrophil cyt oplasmic antibody assay (units/volume)Ordered By: Kassie Valdes on 01-10-2025 Neutrophil cytoplasmic Ab.classic Qn (S) <1:20 titer Neg:<1:20 [facility] Serum codfish IgE antibody a ssay (units/volume)Ordered By: Kassie Valdes on 01-10-2025 Codfish IgE Qn (S) <0.10 kU/L Class 0 [facility] Serum corn IgE antibody assa y (units/volume)Ordered By: Kassie Valdes on 01-10-2025 [place] IgE Qn (S) <0.10 kU/L Class 0 [facility] Serum cow milk IgE antibody assay (units/volume)Ordered By: Kassie Valdes on 01-10-2025 Cow milk IgE Qn (S) <0.10 kU/L Class 0 [facility] Serum creatinine measurement (mass/volume)Ordered By: Kassie Valdes on 01-10-2025 Creatinine [Mass/Vol] 1.23 mg/dL High 0.70-1.20 [facility] Serum globulin measurementOr dered By: Kassie Valdes on 01-10-2025 Globulin (S) [Mass/Vol] 2.4 g/dL 2.2-4.2 [facility] Serum glucose measurement (m ass/volume)Ordered By: Kassie Valdes on 01-10-2025 Glucose [Mass/Vol] 81 mg/dL 70-99 [facility] Serum or plasma C reactive p rotein measurement (mass/volume)Ordered By: Kassie Valdes on 01-10-2025 CRP [Mass/Vol] mg/L 0.0-3.0 [facility] Serum or plasma IgA measurem ent (mass/volume)Ordered By: Kassie Valdes on 01-10-2025 IgA [Mass/Vol] 110 mg/dL 87-352 [facility] Serum or plasma alanine chaudhry otransferase (ALT) measurementOrdered By: Kassie Valdes on 01-10-2025 ALT [Catalytic activity/Vol] 15 U/L <35 [facility] Serum or plasma albumin izzy urement (mass/volume)Ordered By: Kassie Valdes 01-10-2025 Albumin [Mass/Vol] 4.4 g/dL 3.5-5.0 [facility] Serum or plasma albumin/glob ulin mass ratioOrdered By: Kassie Valdes 01-10-2025 Albumin/Globulin [Mass ratio] 1.9 {ratio} 0.9-2.4 [facility] Serum or plasma alkaline dario sphatase measurementOrdered By: Kassie Valdes 01-10-2025 ALP [Catalytic activity/Vol] 53 U/L 35-104 [facility] Serum or plasma calcium izzy urement (mass/volume)Ordered By: Kassie Valdes 01-10-2025 Calcium [Mass/Vol] 9.2 mg/dL 7.6-11.0 [facility] Serum or plasma mannobioside IgG antibody assay by immunoassay (units/volume)Ordered By: Kassie Valdes on 01-10-2025 Mannobioside IgG IA Qn 17 units 0-100 [facility] Comment on above: Negative: <90 Equivo adonay: 90-100 Positive: >100 This test was developed and its performance characteristics determined by [employer]. It has not been cleared or approved by the Food and Drug Administration. The FDA has determined that such clearance or approval is not necessary. Serum or plasma urea nitroge n measurement (mass/volume)Ordered By: Kassie Valdes 01-10-2025 Urea nitrogen [Mass/Vol] 15 mg/dL 4-19 [facility] Serum peanut IgE antibody as say (units/volume)Ordered By: Kassie Valdes 01-10-2025 Peanut IgE Qn (S) <0.10 kU/L Class 0 [facility] Serum perinuclear neutrophil cytoplasmic antibody titer by immunofluorescenceOrdered By: Kassie Valdes 01-10-2025 Neutrophil cytoplasmic Ab.perinuclear IF (S) [Titer] <1:20 titer Neg:<1:20 [facility] Comment on above: The presence of posi tive fluorescence exhibiting P-ANCA orC-ANCA patterns alone is not specific for the diagnosis ofWegener's Granulomatosis (WG) or microscopic polyangiitis.Decisions about treatment should not be based solely onANCA IFA results. The [employer] Consensusrecommends follow up testing of positive sera with both KY-3 and MPO-ANCA enzyme immunoassays. As many as 5% serumsamples are positive only by EIA. Ref. AM J Clin [id number];111:507-513. Serum pork IgE antibody assa y (units/volume)Ordered By: Kassie Valdes on 01-10-2025 Pork IgE Qn (S) <0.10 kU/L Class 0 [facility] Serum salmon IgE antibody as say (units/volume)Ordered By: Kassie Valdes on 01-10-2025 [place] IgE Qn (S) <0.10 kU/L Class 0 [facility] Serum soybean IgE antibody a ssay (units/volume)Ordered By: Kassie Valdes on 01-10-2025 Soybean IgE Qn (S) <0.10 kU/L Class 0 [facility] Serum tissue transglutaminas e (tTG) IgA antibody assay (units/volume)Ordered By: Kassie Valdes on 01-10-2025 tTG IgA Qn (S) <2 U/mL 0-3 [facility] Comment on above: Negative 0 - 3 Weak Positive 4 - 10 Positive >10 Tissue Transglutaminase (tTG) has been identified as the endomysial antigen. Studies have demonstr- ated that endomysial IgA antibodies have over 99% specificity for gluten sensitive enteropathy. Serum tuna IgE antibody assa y (units/volume)Ordered By: Kassie Valdes on 01-10-2025 Tuna IgE Qn (S) <0.10 kU/L Class 0 [facility] Serum wheat IgE antibody ass ay (units/volume)Ordered By: Kassie Valdes on 01-10-2025 Wheat IgE Qn (S) <0.10 kU/L Class 0 [facility] Serum whole egg IgE antibody assay (units/volume)Ordered By: Kassie Valdes on 01-10-2025 Whole Egg IgE Qn (S) <0.10 kU/L Class 0 [facility] [place] antibody assayOrdered By: Kassie Valdes on 01-10-2025 SM Antibody TNP [facility] Comment on above: Test not performed Sodium levelOrdered By: Jass Valdes on 01-10-2025 Sodium [Moles/Vol] 133 mmol/L 133-145 [facility] Total proteinOrdered By: Sushma Valdes on 01-10-2025 Protein [Mass/Vol] 6.7 g/dL 5.9-8.4 [facility] White blood cell (WBC) count Ordered By: Kassie Valdes on 01-10-2025 WBC (Bld) [#/Vol] 7.1 10*3/uL 4.4-11.0 [facility] tTG IgA Qn (S)Ordered By: Saul Valdes on 01-10-2025 Tissue Transglutaminase IgA Ab <2 U/mL 0-3 [facility] Comment on above: Negative 0 - 3 Weak Positive 4 - 10 Positive >10 Tissue Transglutaminase (tTG) has been identified as the endomysial antigen. Studies have demonstr- ated that endomysial IgA antibodies have over 99% specificity for gluten sensitive enteropathy. Gastroenterology Visit Repor ton 12-21-2024 Gastroenterology Visit Report [facility] [address] [place] [address] OFFICE VISIT Date of Service: 12/21/24 MR#: [id number] Acct: [id number] Name: MARCIAL YEUNG Rep #: [id number] : 1965 Provider: TANISHA mazariegos Age/Sex: 59/F Location: [facility] Status: Signed Intake Vital Signs 08/02/24 14:46 Height 5 ft 2 in Weight: 145 lb BMI 26.5 BP 118/78 Intake Visit Reasons: Gastroesophageal reflux disease (GERD) Allergies citalopram Allergy (Intermediate, Verified 12/21/24 13:11) Other 2-octyl cyanoacrylate (octyl 2-cyanoacrylate) Allergy (Verified 12/21/24 13:11) Hives Tetracyclines Allergy (Verified 12/21/24 13:11) Unknown propranolol Adverse Reaction (Verified 12/21/24 13:11) Other Medications ???Medication ???Instructions ???Recorded ???Confirmed ???Type multivitamin with folic acid 400 1 tab PO DAILY 05/30/14 12/20/24 H istory mcg tablet trazodone 50 mg tablet 50 mg PO QHS sleep 05/30/14 History rimegepant 75 mg disintegrating 75 mg PO PRN PRN MIGRAINES 1 12/20/24 History tablet (Nurtec ODT) phenazopyridine 100 mg tablet 100 mg PO TID PRN pain 6 doses #10 07/31/21 08/02/24 Rx (Pyridium) tabs dicyclomine 10 mg capsule 10 mg PO BID PRN 08/01/23 12/20/24 History fluticasone furoate 200 1 inh inhalation DAILY 08/01/23 History mcg/actuation blister powder for inhalation (Arnuity Ellipta) metoprolol succinate 25 mg 25 mg PO DAILY 08/01/23 12/20/24 H istory tablet,extended release 24 hr estradiol 0.025 mg/24 hr 1 patch topical 2XW #8 patches 12/20/24 Rx semiweekly transdermal patch estradiol 10 mcg vaginal insert 10 mcg vaginal 2XW 12/20/24 History (Imvexxy Maintenance Pack) fexofenadine 180 mg tablet 180 mg PO Q24H 12/20/24 12/20/24 H istory gabapentin 100 mg capsule 100 mg PO BID 12/20/24 12/20/24 Hi story ipratropium bromide 21 mcg (0.03 2 spray intranasal BID 12/20/24 History %) nasal spray magnesium 250 mg tablet 250 mg PO QDAY 12/20/24 12/20/24 H istory montelukast 10 mg tablet 10 mg PO QDAY 12/20/24 12/20/24 Hi story ondansetron 4 mg disintegrating 4 mg PO Q8H 12/20/24 12/20/24 Hist ory tablet pantoprazole 40 mg tablet,delayed 40 mg PO BID 12/20/24 12/20/24 Hi story release primidone 50 mg tablet 50 mg PO ONCE 12/20/24 12/20/24 Hi story tizanidine 4 mg capsule 4 mg PO QHS PRN 12/20/24 12/20/24 History tramadol 50 mg tablet 50 mg PO QDAY 12/20/24 12/20/24 Hi story PFSH Medical History PVC (premature ventricular contraction) Nausea IBS (irritable bowel syndrome) Intermittent lower abdominal pain Other urethral stricture, female Urinary tract infection Urinary tract infection Wears contact lenses History of steroid therapy Migraine headache Injury of head and neck Gastric reflux Non-smoker Asthma History of echocardiogram History of stress test Cardiology follow-up encounter History of irregular heartbeat Zeqdo-Oexgeqylg-Zyqo e syndrome Abnormal Pap smear of cervix Surgical History S/P colonoscopy S/P endoscopy History of cardiac catheterization History of cardiac radiofrequency ablation Hx of colonoscopy Hx laparoscopic cholecystectomy History of endometrial ablation S/P laparoscopic assisted vaginal hysterectomy (LAVH) S/P oophorectomy S/P tonsillectomy and adenoidectomy S/P breast augmentation S/P Family History Uncle Brain cancer Lung cancer Grandfather Heart disease Colon cancer Social History number of children: 3 current occupational status: employed 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 for complaints of dysphagia, diarrhea and GERD. She reports that ENT visualized esophageal tremors using nasal endoscopy. She has essential tremors and was started on primidone 2 months ago. She is also taking gabapentin for tremors and spasms. She reports occasional heartburn with reflux while on pantoprazole. She recently added famotidine at bedtime. She reports frequent throat clearing, cough, abdominal bloating, gas, cramping, and postprandial diarrhea with urgency. She denies difficulty (more content not included)... [facility] Hannah 11-28-2024 [facility] Telephone ([facility]) YEUNGMARCIAL SHEIKH ([id number]) 1965 F NFR Date Time Provider Department 11/28/24 [facility] During your visit today, we recorded the following information about you: Allergies As of Date: 11/28/2024 Noted Allergy Reaction 2-OCTYL CYANOACRYLATE 05/25/2021 2 - Rash Comments: Blistering contact reaction CITALOPRAM 09/07/2017 14 - Other: See Comments Comments: Did not tolerate, ? Mental status changes LIQUID BANDAGE (ENBUCRILATE) 12/27/2017 2 - Rash Comments: blisters and rash PROPRANOLOL 01/25/2007 1 - Mental Status Change TETRACYCLINE 09/08/2005 8 - GI Upset Comments: Abdominal pain/cramping Date Reviewed: 10/30/2024 Reviewed by: Deven Logan MD - Fully Assessed Prescriptions as of 11/28/2024 - traMADol (ULTRAM) 50 mg tablet Take 1 tablet by mouth every 12 hours for 30 days. - rimegepant (NURTEC ODT) 75 mg disintegrating tablet dissolve 1 tablet orally AT ONSET OF MIGRAINE and may repeat ONCE PER 24 HOURS IF NEEDED - fexofenadine (LAURA ALLERGY) 180 mg tablet Take 1 tablet by mouth once daily. - ARNUITY ELLIPTA 200 mcg/actuation inhaler Inhale 1 Puff as instructed once daily. - ipratropium bromide (ATROVENT) 42 mcg (0.06 %) nasal spray Use 2 Sprays in the nose three times a day as needed. - Ipratropium [place] (ATROVENT) 21 mcg (0.03 %) nasal spray Use 2 Sprays in the nose three times a day. - montelukast (SINGULAIR) 10 mg tablet Take 1 tablet by mouth daily at bedtime. - azelastine 0.1% nasal spray Use 2 Sprays in each nostril two times a day. - primidone (MYSOLINE) 50 mg tablet Take 50 mg by mouth four times daily. Taking 1/4 to 1/2 tab currently - traZODone (DESYREL) 50 mg tablet TAKE 1 AND 1/2 TABLETS BY MOUTH EVERY NIGHT AT BEDTIME - metoprolol succinate ER (TOPROL XL) 25 mg 24 hr tablet Take 1 tablet by mouth every afternoon. - IMVEXXY MAINTENANCE PACK 10 mcg inst INSERT 1 TABLET VAGINALLY 2 TIMES A WEEK - levalbuterol (XOPENEX) 1.25 mg/3 mL nebulizer solution Inhale 1 ampule via nebulizer 4x daily as needed. - Nebulizer and Compressor For Neb (PORTABLE NEBULIZER SYSTEM) 1 Each every 4 hours as needed. - gabapentin (NEURONTIN) 100 mg capsule Take 2 capsules by mouth daily at bedtime. - pantoprazole DR (PROTONIX) 40 mg tablet Take 1 tablet by mouth two times a day. - levalbuterol tartrate HFA 45 mcg/actuation inhaler Inhale 1-2 Puffs as instructed every 4 hours as needed for wheezing/shortness of breath. - tiZANidine (ZANAFLEX) 4 mg tablet Take 1 tablet by mouth every 8 hours as needed. prn - cephALEXin (KEFLEX) 250 mg capsule Take 250 mg by mouth once daily as needed (after intercourse). - ondansetron (ZOFRAN) 4 mg tablet take 1 tablet by mouth every 8 hours if needed for nausea and vomiting - dicyclomine (BENTYL) 10 mg capsule Take 1 capsule by mouth three times daily. - phenazopyridine (PYRIDIUM, GERIDIUM) 200 mg tablet Take 200 mg by mouth three times a day as needed for pain. prn - estradiol (NOBLE, VIVELLE-DOT) 0.025 mg/24 hr 1 Patch every Tuesday and Tuesday. 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] 02/18/2014 03/23/2018 Chest discomfort [R07.89] 02/18/2014 11/13/2015 Abnormal uterine bleeding [N93.9] 04/17/2014 09/02/2014 Anxiety [F41.9] 05/21/2014 Primary insomnia [F51.01] 06/11/2015 11/29/2023 Stress incontinence in female [N39.3] 11/13/2015 Encounter for screening colonoscopy [Z12.11] 08/10/2016 Complex cyst of right ovary [N83.291] 12/10/2016 Biliary dyskinesia [K82.8] 11/01/2017 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] Gastro-esophageal reflux disease without esopha*07/08/2017 Chronic sinusitis, unspecified [J32.9] 06/30/2017 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] 07/08/2017 Asymptomatic menopausal state [Z78.0] 07/08/2017 Anxiety disorder, unspecified [F41.9] 07/08/2017 Acquired absence of both cervix and uterus [Z90*07/08/2017 Paroxysmal supraventricular tachycardia (HCC) [* 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 Normal [facility] CNPNon 11-26-2024 CNPN Telephone ([facility]) GAMALMARCIAL ([id number]) 1965 F NFR Date Time Provider Department 11/26/24 HUDSON SHARMA [facility] During your visit today, we recorded the following information about you: Hudson Sharma RN 11/26/2024 3:36 PM Signed Ambulatory Pharmacy Prior Authorization Note Provider Intervention Required?: No - Pharmacy completed on your behalf. Was the PA documented within the ePA workqueue?: Yes View the status history of the prior authorization in the Auth Tab within Chart Review Additional Information: For questions relating to this submission, please contact [facility] at [phone] Gisele Savage 12/17/2024 3:37 PM Signed Allergies As of Date: 11/26/2024 Noted Allergy Reaction 2-OCTYL CYANOACRYLATE 05/25/2021 2 - Rash Comments: Blistering contact reaction CITALOPRAM 09/07/2017 14 - Other: See Comments Comments: Did not tolerate, ? Mental status changes LIQUID BANDAGE (ENBUCRILATE) 12/27/2017 2 - Rash Comments: blisters and rash PROPRANOLOL 01/25/2007 1 - Mental Status Change TETRACYCLINE 09/08/2005 8 - GI Upset Comments: Abdominal pain/cramping Date Reviewed: 10/30/2024 Reviewed by: Deven Logan MD - Fully Assessed Reason for Visit: Insurance Authorization [[id number]] [facility] [Other] Prescriptions as of 12/17/2024 - codeine-guaiFENesin (ROBITUSSIN AC) 10-100 mg/5 mL syrup - traMADol (ULTRAM) 50 mg tablet Take 1 tablet by mouth every 12 hours for 30 days. - rimegepant (NURTEC ODT) 75 mg disintegrating tablet dissolve 1 tablet orally AT ONSET OF MIGRAINE and may repeat ONCE PER 24 HOURS IF NEEDED - fexofenadine (LAURA ALLERGY) 180 mg tablet Take 1 tablet by mouth once daily. - ARNUITY ELLIPTA 200 mcg/actuation inhaler Inhale 1 Puff as instructed once daily. - ipratropium bromide (ATROVENT) 42 mcg (0.06 %) nasal spray Use 2 Sprays in the nose three times a day as needed. - Ipratropium [place] (ATROVENT) 21 mcg (0.03 %) nasal spray Use 2 Sprays in the nose three times a day. - montelukast (SINGULAIR) 10 mg tablet Take 1 tablet by mouth daily at bedtime. - azelastine 0.1% nasal spray Use 2 Sprays in each nostril two times a day. - primidone (MYSOLINE) 50 mg tablet Take 50 mg by mouth four times daily. Taking 1/4 to 1/2 tab currently - traZODone (DESYREL) 50 mg tablet TAKE 1 AND 1/2 TABLETS BY MOUTH EVERY NIGHT AT BEDTIME - metoprolol succinate ER (TOPROL XL) 25 mg 24 hr tablet Take 1 tablet by mouth every afternoon. - IMVEXXY MAINTENANCE PACK 10 mcg inst INSERT 1 TABLET VAGINALLY 2 TIMES A WEEK - levalbuterol (XOPENEX) 1.25 mg/3 mL nebulizer solution Inhale 1 ampule via nebulizer 4x daily as needed. - Nebulizer and Compressor For Neb (PORTABLE NEBULIZER SYSTEM) 1 Each every 4 hours as needed. - gabapentin (NEURONTIN) 100 mg capsule Take 2 capsules by mouth daily at bedtime. - pantoprazole DR (PROTONIX) 40 mg tablet Take 1 tablet by mouth two times a day. - levalbuterol tartrate HFA 45 mcg/actuation inhaler Inhale 1-2 Puffs as instructed every 4 hours as needed for wheezing/shortness of breath. - tiZANidine (ZANAFLEX) 4 mg tablet Take 1 tablet by mouth every 8 hours as needed. prn - cephALEXin (KEFLEX) 250 mg capsule Take 250 mg by mouth once daily as needed (after intercourse). - ondansetron (ZOFRAN) 4 mg tablet take 1 tablet by mouth every 8 hours if needed for nausea and vomiting - dicyclomine (BENTYL) 10 mg capsule Take 1 capsule by mouth three times daily. - estradiol (NOBLE, VIVELLE-DOT) 0.025 mg/24 hr 1 Patch every Tuesday and Tuesday. Problem List As Of Date 11/26/2024 Noted Resolved Asthma [J45.909] Abnormal involuntary movements(781.0) [R25.8, R*12/06/2005 11/13/2015 Adjustment disorder with depressed mood [F43.21]12/06/2005 10/19/2019 Acute gastritis without mention of hemorrhage [*12/06/2005 11/13/2015 ASCUS favor benign [R87.610] 01/29/2009 11/17/2011 CERVICAL HPV DNA POSITIVE [R87.810] 01/29/2009 ADD (attention deficit disorder) [F98.8] 07/29/2009 02/02/2021 Chronic insomnia [F51.04] 02/16/2012 Rapid palpitations [R00.2] 02/18/2014 03/23/2018 Jlwhw-Csqwtcjkz-Tjap e (WPW) syndrome [I45.6] 02/18/2014 03/23/2018 Chest discomfort [R07.89] 02/18/2014 11/13/2015 Abnormal uterine bleeding [N93.9] 04/17/2014 09/02/2014 Anxiety [F41.9] 05/21/2014 Primary insomnia [F51.01] 06/11/2015 11/29/2023 Stress incontinence in female [N39.3] 11/13/2015 Encounter for screening colonoscopy [Z12.11] 08/10/2016 Complex cyst of right ovary [N83.291] 12/10/2016 Biliary dyskinesia [K82.8] 11/01/2017 WPW (Znulu-Ladueqwzo-Xlg te syndrome) [I45.6] Gastro-esophageal reflux disease without esopha*07/08/2017 Chronic sinusitis, unspecified [J32.9] 06/30/2017 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] 07/08/2017 Asymptomatic menopausal state [Z78.0] 07/08/2017 Anxiety disorder, unspecified [F41.9] more content not included)... Normal [facility] 11-13-2024 [facility] Telephone ([facility]) MARCIAL YEUNG ([id number]) 1965 F NFR Date Time Provider Department 11/13/24 [facility] During your visit today, we recorded the following information about you: Dianna Garcia 11/13/2024 10:10 AM Signed LVM for pt to c/b to schedule sleep medicine appt Allergies As of Date: 11/13/2024 Noted Allergy Reaction 2-OCTYL CYANOACRYLATE 05/25/2021 2 - Rash Comments: Blistering contact reaction CITALOPRAM 09/07/2017 14 - Other: See Comments Comments: Did not tolerate, ? Mental status changes LIQUID BANDAGE (ENBUCRILATE) 12/27/2017 2 - Rash Comments: blisters and rash PROPRANOLOL 01/25/2007 1 - Mental Status Change TETRACYCLINE 09/08/2005 8 - GI Upset Comments: Abdominal pain/cramping Date Reviewed: 10/30/2024 Reviewed by: Deven Logan MD - Fully Assessed Prescriptions as of 11/13/2024 - fexofenadine (LAURA ALLERGY) 180 mg tablet Take 1 tablet by mouth once daily. - ARNUITY ELLIPTA 200 mcg/actuation inhaler Inhale 1 Puff as instructed once daily. - ipratropium bromide (ATROVENT) 42 mcg (0.06 %) nasal spray Use 2 Sprays in the nose three times a day as needed. - Ipratropium [place] (ATROVENT) 21 mcg (0.03 %) nasal spray Use 2 Sprays in the nose three times a day. - montelukast (SINGULAIR) 10 mg tablet Take 1 tablet by mouth daily at bedtime. - azelastine 0.1% nasal spray Use 2 Sprays in each nostril two times a day. - primidone (MYSOLINE) 50 mg tablet Take 50 mg by mouth four times daily. Taking 1/4 to 1/2 tab currently - traMADol (ULTRAM) 50 mg tablet Take 1 tablet by mouth every 12 hours for 30 days. - traZODone (DESYREL) 50 mg tablet TAKE 1 AND 1/2 TABLETS BY MOUTH EVERY NIGHT AT BEDTIME - metoprolol succinate ER (TOPROL XL) 25 mg 24 hr tablet Take 1 tablet by mouth every afternoon. - IMVEXXY MAINTENANCE PACK 10 mcg inst INSERT 1 TABLET VAGINALLY 2 TIMES A WEEK - levalbuterol (XOPENEX) 1.25 mg/3 mL nebulizer solution Inhale 1 ampule via nebulizer 4x daily as needed. - Nebulizer and Compressor For Neb (PORTABLE NEBULIZER SYSTEM) 1 Each every 4 hours as needed. - gabapentin (NEURONTIN) 100 mg capsule Take 2 capsules by mouth daily at bedtime. - rimegepant (NURTEC ODT) 75 mg disintegrating tablet dissolve 1 tablet orally AT ONSET OF MIGRAINE and may repeat ONCE PER 24 HOURS IF NEEDED - pantoprazole DR (PROTONIX) 40 mg tablet Take 1 tablet by mouth two times a day. - levalbuterol tartrate HFA 45 mcg/actuation inhaler Inhale 1-2 Puffs as instructed every 4 hours as needed for wheezing/shortness of breath. - tiZANidine (ZANAFLEX) 4 mg tablet Take 1 tablet by mouth every 8 hours as needed. prn - cephALEXin (KEFLEX) 250 mg capsule Take 250 mg by mouth once daily as needed (after intercourse). - ondansetron (ZOFRAN) 4 mg tablet take 1 tablet by mouth every 8 hours if needed for nausea and vomiting - dicyclomine (BENTYL) 10 mg capsule Take 1 capsule by mouth three times daily. - phenazopyridine (PYRIDIUM, GERIDIUM) 200 mg tablet Take 200 mg by mouth three times a day as needed for pain. prn - estradiol (NOBLE, VIVELLE-DOT) 0.025 mg/24 hr 1 Patch every Tuesday and Tuesday. Problem List As Of Date 11/13/2024 Noted Resolved Asthma [J45.909] Abnormal involuntary movements(781.0) [R25.8, R*12/06/2005 11/13/2015 Adjustment disorder with depressed mood [F43.21]12/06/2005 10/19/2019 Acute gastritis without mention of hemorrhage [*12/06/2005 11/13/2015 ASCUS favor benign [R87.610] 01/29/2009 11/17/2011 CERVICAL HPV DNA POSITIVE [R87.810] 01/29/2009 ADD (attention deficit disorder) [F98.8] 07/29/2009 02/02/2021 Chronic insomnia [F51.04] 02/16/2012 Rapid palpitations [R00.2] 02/18/2014 03/23/2018 Rjpnn-Dbzpkxrti-Odea e (WPW) syndrome [I45.6] 02/18/2014 03/23/2018 Chest discomfort [R07.89] 02/18/2014 11/13/2015 Abnormal uterine bleeding [N93.9] 04/17/2014 09/02/2014 Anxiety [F41.9] 05/21/2014 Primary insomnia [F51.01] 06/11/2015 11/29/2023 Stress incontinence in female [N39.3] 11/13/2015 Encounter for screening colonoscopy [Z12.11] 08/10/2016 Complex cyst of right ovary [N83.291] 12/10/2016 Biliary dyskinesia [K82.8] 11/01/2017 WPW (Uotpd-Xesohpnon-Ejm te syndrome) [I45.6] Gastro-esophageal reflux disease without esopha*07/08/2017 Chronic sinusitis, unspecified [J32.9] 06/30/2017 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] 07/08/2017 Asymptomatic menopausal state [Z78.0] 07/08/2017 Anxiety disorder, unspecified [F41.9] 07/08/2017 Acquired absence of both cervix and uterus [Z90*07/08/2017 Paroxysmal supraventricular tachycardia (HCC) [* 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 Normal [facility] Dexa Bone Density Studyon Dexa Bone Density Study [facility] Imaging Services [address] [place] [place] [address] Dexa Bone Density Study MR#: [id number] Acct: [id number] Name: MARCIAL YEUNG Rep #: [id number] : 1965 F 59 From: Brendan Mar MD PCP: Dr. Dasia Auguste DO Status: REG CLI Study: Dexa Bone Density Study Date of Exam: 11/01/24 Exam# [id number] Ordering Dr: Dasia Auguste DO EXAM: CLINICAL INDICATION: Determine bone density. CLINICAL HISTORY: Postmenopausal COMPARISON: None TECHNIQUE: Bone densitometry of the lumbar spine and hips was performed using the HOLOGIC DEXA scanner. FINDINGS: Bone Density Measurements: SPINE AP Spine (L1-L4): 1.062 g/cm2 T-Score: 0.1 Z-Score: 1.4 WHO Classification: NORMAL LEFT FEMUR Femoral TOTAL (LEFT): 0.897 g/cm2 T-Score: -0.4 Z-Score: 0.5 WHO Classification: NORMAL Femoral NECK (LEFT): 0.750 g/cm2 T-Score: -0.9 Z-Score: 0.3 WHO Classification: NORMAL 10 year FRAX: Major osteoporotic fracture: 11% Hip fracture: 0.6% RIGHT FEMUR Femoral TOTAL (RIGHT): 0.947 g/cm2 T-Score: 0.0 Z-Score: 0.9 WHO Classification: NORMAL Femoral NECK (RIGHT): 0.804 g/cm2 T-Score: -0.4 Z-Score: 0.8 WHO Classification: Normal 10 year FRAX: Major osteoporotic fracture: 9.9% Hip fracture: 0.4% BD/Dexa Bone Density Study IMPRESSION: Normal bone density World Health Organization criteria for BMD interpretation classify patients as: Normal (T-score at or above -1.0), Osteopenic (T-score between -1.0 and -2.5),or Osteoporotic (T-score at or below -2.5). The presence of vertebral abnormalities such as scoliosis or osteophytes, or aortic/ligamentous calcifications can alter readings of the lumbar spine. In such cases, readings of the hips are more reliable. Reading Location: [facility] CC: Dr. 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) MARCIAL YEUNG ([id number]) 1965 F NFR Date Time Provider Department 10/30/24 10:20 AM DEVEN LOGAN [facility] During your visit today, we recorded the following information about you: Temperature Pulse Respiration Blood pressure 97.4 degrees 78/minute 16/minute 130/89 Weight Height 67.1 kg 1.575 m Deven Logan MD 10/30/2024 12:56 PM Signed Allergy AND Immunology Established Visit PATIENT NAME: Marcial Yeung SERVICE DATE: 10/30/2024 HPI: The patient is a 59-year-old female presenting with complaints related to chronic rhinitis and mild persistent asthma. She has experienced ongoing symptoms related to rhinitis, including nasal congestion and irritation, which she reports managing with nasal sprays. She noted a reduction in viral infections since beginning nasal aerosol treatments. She is concerned about asthma symptoms, although these have not exacerbated. She discussed past interventions for PVC and WPW syndrome, noting that an ablation was performed for WPW, which is resolved, though PVC symptoms persist. She occasionally experiences exacerbations of PVC, which she attributes to environmental triggers, notably strong smells. The patient has also reported issues with hoarseness likely related to her history of inducible laryngeal obstruction and vasomotor rhinitis. There is a noted impact of environmental factors such as weather changes and strong odors on her symptoms and general health. She has a family history suggestive of potential sleep disorders. She also experiences allergic reactions such as dermatitis due to adhesive contact. 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 flecainide; indication: symptomatic PSVT with WPW syndrome Other anxiety states Palpitations Paroxysmal supraventricular tachycardia (HCC) see "WPW Syndrome" Primary insomnia 06/11/2015 Sinus tachycardia 10/20/2023 Stress incontinence, female Unspecified asthma(493.90) 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; attempt at catheter ablation 11/2016 failed; she continues to experience intermittent palpitations and tachycardia despite treatment with flecainide; successful RFCA 03/2018 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 (Twson-Dbhlwpsre-Aqt te Syndrome) Gastro-Esophageal Reflux Disease Without Esophagitis Chronic Sinusitis, Unspecified Benign Neoplasm of Unspecified Ovary Asymptomatic Menopausal State Anxiety Disorder, Unspecified Acquired Absence of Both Cervix and Uterus Paroxysmal Supraventricular Tachycardia (Hcc) Palpitations Status Post Ablation of Accessory Bypass Tract Dyspareunia Chronic Mixed Headache Syndrome Chronic Migraine Without Aura, With Intractable Migraine, So Stated, With Status Migrainosus Intractable Chronic Migraine Without Aura and Without Status Migrainosus Chronic Daily Headache Musculoskeletal Pain Cervicalgia Chronic Tension-Type Headache, Intractable Reflux Esophagitis Intractable Chronic Migraine Without Aura and With Status Migrainosus Internal Hemorrhoids Migraine Without Aura and Without Status Migrainosus, Not Intractable Bilateral Occipital Neuralgia History of Fusion of Cervical Spine Irritable Bowel Syndrome With Diarrhea Sinus Tachycardia Chronic Migraine Without Aura, Intractable, Without Status Migrainosus Mild Persistent Asthma Without Complication Allergic Conjunctivitis, Bilateral Chronic Rhinitis Pvc (Premature Ventricular Contraction) Vasomotor Rhinitis 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Ilo) Allergic Contact Dermatitis Due to Adhesives Hoarseness of Voice Essential Tremor Tear of Left Acetabular Labrum Pain of Left Hip Tendinopathy of Left Gluteal Region PAST SURGICAL HISTORY Procedure Laterality Date BLADDER SURGERY HX 11/2015 bladder sling BREAST AUGMENTATION WITH IMPLANT 11/2007 Breast augmentation CARDIAC MONITORING CONTINUOUS 05/25/2018 96 hours monitoring: sinus rhythm, sinus tachycardia; patient event activations and/or reported symptoms correlated with sinus rhythm and sinus tachycardia DELIVERY ONLY 85, 88,92 , low cervical X3 COLONOSCOPY 06/2021 EGD 2019 F LIGATION OF HEMORRHOID(S) 10/07/2020 IUD INSERTION (SPRING INTERN (more content not included)... Normal [facility] CNPTawny 10-30-2024 CNPN Telephone ([facility]) MARCIAL YEUNG ([id number]) 1965 F NFR Date Time Provider Department 10/30/24 DEVEN LOGAN [facility] During your visit today, we recorded the following information about you: Ynes Wiseman 10/30/2024 12:20 PM Signed Sleep Medicine referral faxed over to Dr. Langley's office for scheduling. Ynes Wiseman October 30, 2024 12:19 PM Allergies As of Date: 10/30/2024 Noted Allergy Reaction 2-OCTYL CYANOACRYLATE 05/25/2021 2 - Rash Comments: Blistering contact reaction CITALOPRAM 09/07/2017 14 - Other: See Comments Comments: Did not tolerate, ? Mental status changes LIQUID BANDAGE (ENBUCRILATE) 12/27/2017 2 - Rash Comments: blisters and rash PROPRANOLOL 01/25/2007 1 - Mental Status Change TETRACYCLINE 09/08/2005 8 - GI Upset Comments: Abdominal pain/cramping Date Reviewed: 10/30/2024 Reviewed by: Deven Logan MD - Fully Assessed Reason for Visit: Referral to Sleep Medicine [Other] Prescriptions as of 10/30/2024 - ARNUITY ELLIPTA 200 mcg/actuation inhaler Inhale 1 Puff as instructed once daily. - ipratropium bromide (ATROVENT) 42 mcg (0.06 %) nasal spray Use 2 Sprays in the nose three times a day as needed. - Ipratropium [place] (ATROVENT) 21 mcg (0.03 %) nasal spray Use 2 Sprays in the nose three times a day. - montelukast (SINGULAIR) 10 mg tablet Take 1 tablet by mouth daily at bedtime. - azelastine 0.1% nasal spray Use 2 Sprays in each nostril two times a day. - primidone (MYSOLINE) 50 mg tablet Take 50 mg by mouth four times daily. Taking 1/4 to 1/2 tab currently - traMADol (ULTRAM) 50 mg tablet Take 1 tablet by mouth every 12 hours for 30 days. - traZODone (DESYREL) 50 mg tablet TAKE 1 AND 1/2 TABLETS BY MOUTH EVERY NIGHT AT BEDTIME - metoprolol succinate ER (TOPROL XL) 25 mg 24 hr tablet Take 1 tablet by mouth every afternoon. - IMVEXXY MAINTENANCE PACK 10 mcg inst INSERT 1 TABLET VAGINALLY 2 TIMES A WEEK - levalbuterol (XOPENEX) 1.25 mg/3 mL nebulizer solution Inhale 1 ampule via nebulizer 4x daily as needed. - Nebulizer and Compressor For Neb (PORTABLE NEBULIZER SYSTEM) 1 Each every 4 hours as needed. - gabapentin (NEURONTIN) 100 mg capsule Take 2 capsules by mouth daily at bedtime. - rimegepant (NURTEC ODT) 75 mg disintegrating tablet dissolve 1 tablet orally AT ONSET OF MIGRAINE and may repeat ONCE PER 24 HOURS IF NEEDED - pantoprazole DR (PROTONIX) 40 mg tablet Take 1 tablet by mouth two times a day. - levalbuterol tartrate HFA 45 mcg/actuation inhaler Inhale 1-2 Puffs as instructed every 4 hours as needed for wheezing/shortness of breath. - fexofenadine (LAURA ALLERGY) 180 mg tablet Take 1 tablet by mouth once daily. - tiZANidine (ZANAFLEX) 4 mg tablet Take 1 tablet by mouth every 8 hours as needed. prn - cephALEXin (KEFLEX) 250 mg capsule Take 250 mg by mouth once daily as needed (after intercourse). - ondansetron (ZOFRAN) 4 mg tablet take 1 tablet by mouth every 8 hours if needed for nausea and vomiting - dicyclomine (BENTYL) 10 mg capsule Take 1 capsule by mouth three times daily. - phenazopyridine (PYRIDIUM, GERIDIUM) 200 mg tablet Take 200 mg by mouth three times a day as needed for pain. prn - estradiol (NOBLE, VIVELLE-DOT) 0.025 mg/24 hr 1 Patch every Tuesday and Tuesday. Problem List As Of Date 10/30/2024 Noted Resolved Asthma [J45.909] Abnormal involuntary movements(781.0) [R25.8, R*12/06/2005 11/13/2015 Adjustment disorder with depressed mood [F43.21]12/06/2005 10/19/2019 Acute gastritis without mention of hemorrhage [*12/06/2005 11/13/2015 ASCUS favor benign [R87.610] 01/29/2009 11/17/2011 CERVICAL HPV DNA POSITIVE [R87.810] 01/29/2009 ADD (attention deficit disorder) [F98.8] 07/29/2009 02/02/2021 Chronic insomnia [F51.04] 02/16/2012 Rapid palpitations [R00.2] 02/18/2014 03/23/2018 Avpxi-Wrmagzafr-Mvnq e (WPW) syndrome [I45.6] 02/18/2014 03/23/2018 Chest discomfort [R07.89] 02/18/2014 11/13/2015 Abnormal uterine bleeding [N93.9] 04/17/2014 09/02/2014 Anxiety [F41.9] 05/21/2014 Primary insomnia [F51.01] 06/11/2015 11/29/2023 Stress incontinence in female [N39.3] 11/13/2015 Encounter for screening colonoscopy [Z12.11] 08/10/2016 Complex cyst of right ovary [N83.291] 12/10/2016 Biliary dyskinesia [K82.8] 11/01/2017 WPW (Hvaiv-Uldldgfgy-Kzs te syndrome) [I45.6] Gastro-esophageal reflux disease without esopha*07/08/2017 Chronic sinusitis, unspecified [J32.9] 06/30/2017 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] 07/08/2017 Asymptomatic menopausal state [Z78.0] 07/08/2017 Anxiety disorder, unspecified [F41.9] 07/08/2017 Acquired absence of both cervix and uterus [Z90*07/08/2017 Paroxysmal supraventricular tachycardia (HCC) [* 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 Normal [facility] CNOVon 10-23-2024 CNOV Office Visit (NRHAME) GAMALMARCIAL Ming ([id number]) 1965 F NFR Date Time Provider Department 10/23/24 3:30 PM SHARRON HOLLIS During your visit today, we recorded the following information about you: Pulse Blood pressure Weight Height 79/minute 122/83 67.5 kg 1.575 m Sharron Hollis, NEVIN.ASBESTOS MICROSCOPIST 10/23/2024 3:06 PM Signed AFTER VISIT CARE BOTOX INJECTION While these procedures can be extremely helpful as part of your headache treatment plan, they can irritate the muscles and tissues in your head, neck and shoulders. Proper follow-up care is important to avoid muscle spasms and temporary pain increase within the following 3-5 days after your clinic visit. Here are some tips to help decrease side-effects that may occur and maximize the effectiveness of your pain relief? -HYDRATION Hydration is important to help nourish your muscles and tissues. Drink 60-80 oz of non caffeinated fluid at least for 3 days after your visit. -REST Rest will help avoid further irritation of muscle and tissues. Remember that you need to give your body time to adjust. NO strenuous activity for at least the first 24 hours after your visit. Gentle stretching, yoga, meditation or even swimming is OK and encouraged. -ICE/HEAT Since these procedures irritate muscles, there can be some swelling. Alternating ice and heat every 3-5 times per day may help decrease this, while also optimizing pain relief Use cool gel packs for ice for 10 min. Use a warm moist towel covered with a dry towel on neck and shoulders. Alternate stretching each side of the neck. -STRETCHING Slow, gentle stretching of the neck and shoulders once every hour is helpful to avoid muscle spasms. -TREAT MUSCLE SPASMS If you are already prescribed a muscle relaxer such as baclofen, tizanidine or flexeril, use as directed. If you do not have one, talk to your provider to find out if this would be safe for you to use. Do not rub or massage the area for 48-72 hours. -OTHER No hair dyes or permanents for 24 hours. If you are paying out of pocket for Botox go online to Botox Savings Program and see if you qualify for reimbursement. Return in 3 months for your next Botox Injection Sharron Hollis APRN.CNP 10/23/2024 3:42 PM Signed Headache Center Follow-up Visit Miscellaneous Patient Concerns: Headaches may be stabbing R frontal that is intermittent. She was started on Primidone but finds that this can give her a headache. Impression: Chronic migraine without aura, intractable, without status migrainosus (primary encounter diagnosis) Follow-Up Onabotulinum Toxin A (BotoxTM) for Migraine Indication: Chronic Intractable Migraine Referral Expiration: 09/11/2025 Prior to the initiation of the FIRST treatment with Onabotulinum Toxin A, the patient reported the following average headache frequency over the past 3 MONTHS: Number of moderate-severe migraine days/month: 25 Number of mild migraine days/month: 0 Number of headache free days/month: 5 (120 headache-free hours) After treatment with Onabotulinum Toxin A: Number of moderate-severe migraine days/month: 0 Number of mild migraine days/month: 10 Number of headache free days/month: 20 (480 headache-free hours) Patient reduction in overall migraine days: Yes Patient reduction in moderate-severe migraine days: Yes Patient reduction of headache hours by 100 hours or more: Yes (reduction of 360 hours) Individual has obtained clinical benefit deemed significant by individual or prescriber (Y/N): Yes Patient's quality of life and ability to perform ADLs has improved (Y/N): Yes Side effects: none The patient has been assessed for disorders which could contribute to breathing or swallowing difficulty, and there is no contraindication with PREEMPT Botox. There is no documented allergic reaction/hypersensit ivity to any botulinum toxin and there is no active infection at proposed injection site. HEADACHE SCORES: 04/17/2024 07/17/2024 10/17/2024 Headache Questions ER visits since last office visit: 0 0 0 Hospital stays since last office visit 0 0 0 Limited ADLs in the last month: 0 1 0 Days missed from work or school in the last month: 0 0 0 Days headache pain free in the last month: 25 25 20 Days per month with ALL of the following symptoms - decreased productivity, light sensitivity and nausea: 0 1 0 Initial improvement of headache after botox injection at last visit: Much improved Much improved Much improved PRN medication usage in the last month: 6 5 Patient impression of improvement since last visit: No change No change No change 04/17/2024 07/17/2024 10/17/2024 HIT-6 HIT-6 40 (Little or no impact) 46 (Little or no impact) 40 (Little or no impact) 04/17/2024 07/17/2024 10/17/2024 KEYONNA - 2/7 SCORES KEYONNA-2 Score 0 0 0 04/17/2024 07/17/2024 10/17/2024 Migr (more content not included)... Normal [facility] CNPNon 10-01-2024 CNPN Telephone (INTMBR) MARCIAL YEUNG ([id number]) 1965 F NFR Date Time Provider Department 10/01/24 JAMES HARRY During your visit today, we recorded the following information about you: Allergies As of Date: 10/01/2024 Noted Allergy Reaction 2-OCTYL CYANOACRYLATE 05/25/2021 2 - Rash Comments: Blistering contact reaction CITALOPRAM 09/07/2017 14 - Other: See Comments Comments: Did not tolerate, ? Mental status changes LIQUID BANDAGE (ENBUCRILATE) 12/27/2017 2 - Rash Comments: blisters and rash PROPRANOLOL 01/25/2007 1 - Mental Status Change TETRACYCLINE 09/08/2005 8 - GI Upset Comments: Abdominal pain/cramping Date Reviewed: 07/26/2024 Reviewed by: Kassie Richards MA - Fully Assessed Reason for Visit: insurance denial [Other] Cmt: [facility] - Tramadol Prescriptions as of 10/01/2024 - traMADol (ULTRAM) 50 mg tablet Take 1 tablet by mouth every 12 hours for 30 days. - traZODone (DESYREL) 50 mg tablet TAKE 1 AND 1/2 TABLETS BY MOUTH EVERY NIGHT AT BEDTIME - metoprolol succinate ER (TOPROL XL) 25 mg 24 hr tablet Take 1 tablet by mouth every afternoon. - Ipratropium [place] (ATROVENT) 21 mcg (0.03 %) nasal spray INHALE 2 SPRAYS IN EACH NOSTRIL 3 TIMES A DAY - REFRESH OPTIVE ADVANCED 0.5-1-0.5 % drop INSTILL 1 DROP IN EACH EYE 4 TIMES A DAY NEEDED - IMVEXXY MAINTENANCE PACK 10 mcg inst INSERT 1 TABLET VAGINALLY 2 TIMES A WEEK - levalbuterol (XOPENEX) 1.25 mg/3 mL nebulizer solution Inhale 1 ampule via nebulizer 4x daily as needed. - azelastine 0.1% nasal spray Use 2 Sprays in each nostril two times a day. - Nebulizer and Compressor For Neb (PORTABLE NEBULIZER SYSTEM) 1 Each every 4 hours as needed. - gabapentin (NEURONTIN) 100 mg capsule Take 2 capsules by mouth daily at bedtime. - ipratropium bromide (ATROVENT) 42 mcg (0.06 %) nasal spray Use 2 Sprays in the nose three times a day. - rimegepant (NURTEC ODT) 75 mg disintegrating tablet dissolve 1 tablet orally AT ONSET OF MIGRAINE and may repeat ONCE PER 24 HOURS IF NEEDED - magnesium oxide (MAG-OX) 400 mg (241.3 mg magnesium) tablet Take 1 tablet by mouth once daily. - csivgkkkbhxni-dhs-mc ly80-PF (REFRESH OPTIVE ADVANCED, PF,) 0.5-1-0.5 % dpet Use 1 Drop in eyes four times a day as needed. - pantoprazole DR (PROTONIX) 40 mg tablet Take 1 tablet by mouth two times a day. - levalbuterol tartrate HFA 45 mcg/actuation inhaler Inhale 1-2 Puffs as instructed every 4 hours as needed for wheezing/shortness of breath. - fexofenadine (LAURA ALLERGY) 180 mg tablet Take 1 tablet by mouth once daily. - tiZANidine (ZANAFLEX) 4 mg tablet Take 1 tablet by mouth every 8 hours as needed. prn - cephALEXin (KEFLEX) 250 mg capsule Take 250 mg by mouth once daily as needed (after intercourse). - montelukast (SINGULAIR) 10 mg tablet - ondansetron (ZOFRAN) 4 mg tablet take 1 tablet by mouth every 8 hours if needed for nausea and vomiting - ARNUITY ELLIPTA 200 mcg/actuation inhaler inhale 1 puff by mouth daily - dicyclomine (BENTYL) 10 mg capsule Take 1 capsule by mouth three times daily. - phenazopyridine (PYRIDIUM, GERIDIUM) 200 mg tablet Take 200 mg by mouth three times a day as needed for pain. prn - estradiol (NOBLE, VIVELLE-DOT) 0.025 mg/24 hr 1 Patch every Tuesday and Tuesday. 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] 02/18/2014 03/23/2018 Chest discomfort [R07.89] 02/18/2014 11/13/2015 Abnormal uterine bleeding [N93.9] 04/17/2014 09/02/2014 Anxiety [F41.9] 05/21/2014 Primary insomnia [F51.01] 06/11/2015 11/29/2023 Stress incontinence in female [N39.3] 11/13/2015 Encounter for screening colonoscopy [Z12.11] 08/10/2016 Complex cyst of right ovary [N83.291] 12/10/2016 Biliary dyskinesia [K82.8] 11/01/2017 WPW (Jrpxh-Grezeympq-Ttk te syndrome) [I45.6] Gastro-esophageal reflux disease without esopha*07/08/2017 Chronic sinusitis, unspecified [J32.9] 06/30/2017 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 Normal [facility] CNTHERAPYon 08-06-2024 CNTHERAPY OT/PT/Speech Visit (SHPTTB) MARCIAL YEUNG ([id number]) 1965 F NFR Date Time Provider Department 08/06/24 12:45 PM [facility] Provider Department Center 08/06/2024 12:45 PM [id number], JESSICA [facility] [employer] Reason for Visit: PT Eval [747] Visit Diagnoses:Tear of left acetabular labrum, initial encounter [S73.192A] Pain of left hip [M25.552] Tendinopathy of left gluteal region [M67.952] Allergies As of Date: 08/06/2024 Noted Allergy Reaction 2-OCTYL CYANOACRYLATE 05/25/2021 2 - Rash Comments: Blistering contact reaction CITALOPRAM 09/07/2017 14 - Other: See Comments Comments: Did not tolerate, ? Mental status changes LIQUID BANDAGE (ENBUCRILATE) 12/27/2017 2 - Rash Comments: blisters and rash PROPRANOLOL 01/25/2007 1 - Mental Status Change TETRACYCLINE 09/08/2005 8 - GI Upset Comments: Abdominal pain/cramping Date Reviewed: 07/26/2024 Reviewed by: Kassie Richards MA - Fully Assessed Prescriptions as of 08/07/2024 - traZODone (DESYREL) 50 mg tablet TAKE 1 AND 1/2 TABLETS BY MOUTH EVERY NIGHT AT BEDTIME - traMADol (ULTRAM) 50 mg tablet Take 1 tablet by mouth every 12 hours for 30 days. - metoprolol succinate ER (TOPROL XL) 25 mg 24 hr tablet Take 1 tablet by mouth every afternoon. - Ipratropium [place] (ATROVENT) 21 mcg (0.03 %) nasal spray INHALE 2 SPRAYS IN EACH NOSTRIL 3 TIMES A DAY - REFRESH OPTIVE ADVANCED 0.5-1-0.5 % drop INSTILL 1 DROP IN EACH EYE 4 TIMES A DAY NEEDED - IMVEXXY MAINTENANCE PACK 10 mcg inst INSERT 1 TABLET VAGINALLY 2 TIMES A WEEK - levalbuterol (XOPENEX) 1.25 mg/3 mL nebulizer solution Inhale 1 ampule via nebulizer 4x daily as needed. - azelastine 0.1% nasal spray Use 2 Sprays in each nostril two times a day. - Nebulizer and Compressor For Neb (PORTABLE NEBULIZER SYSTEM) 1 Each every 4 hours as needed. - gabapentin (NEURONTIN) 100 mg capsule Take 2 capsules by mouth daily at bedtime. - ipratropium bromide (ATROVENT) 42 mcg (0.06 %) nasal spray Use 2 Sprays in the nose three times a day. - rimegepant (NURTEC ODT) 75 mg disintegrating tablet dissolve 1 tablet orally AT ONSET OF MIGRAINE and may repeat ONCE PER 24 HOURS IF NEEDED - magnesium oxide (MAG-OX) 400 mg (241.3 mg magnesium) tablet Take 1 tablet by mouth once daily. - xlglpqpwbbyhz-cas-rg ly80-PF (REFRESH OPTIVE ADVANCED, PF,) 0.5-1-0.5 % dpet Use 1 Drop in eyes four times a day as needed. - pantoprazole DR (PROTONIX) 40 mg tablet Take 1 tablet by mouth two times a day. - levalbuterol tartrate HFA 45 mcg/actuation inhaler Inhale 1-2 Puffs as instructed every 4 hours as needed for wheezing/shortness of breath. - fexofenadine (LAURA ALLERGY) 180 mg tablet Take 1 tablet by mouth once daily. - tiZANidine (ZANAFLEX) 4 mg tablet Take 1 tablet by mouth every 8 hours as needed. prn - cephALEXin (KEFLEX) 250 mg capsule Take 250 mg by mouth once daily as needed (after intercourse). - montelukast (SINGULAIR) 10 mg tablet - ondansetron (ZOFRAN) 4 mg tablet take 1 tablet by mouth every 8 hours if needed for nausea and vomiting - ARNUITY ELLIPTA 200 mcg/actuation inhaler inhale 1 puff by mouth daily - dicyclomine (BENTYL) 10 mg capsule Take 1 capsule by mouth three times daily. - phenazopyridine (PYRIDIUM, GERIDIUM) 200 mg tablet Take 200 mg by mouth three times a day as needed for pain. prn - estradiol (NOBLE, VIVELLE-DOT) 0.025 mg/24 hr 1 Patch every Tuesday and Tuesday. Production Leader: Therapy (PT/OT/Speech/Resp) ID: [id number] 08/06/2024 1:24 PM Author: CODIE MUNGUIA Signed by CODIE MUNGUIA PT on 08/06/2024 at 1:24 PM Document text: Program_ID:[id number] Access Code: [email or web address] URL: [email or web address] Date: 08-06-2024 Prepared By: Codie Munguia Program Notes Exercises - Supine Bridge - 1 x daily - 6 x weekly - 3 sets - 8 reps - Bridge Marching with Eccentric Lowering - 1 x daily - 6 x weekly - 3 sets - 8 reps - Single Leg Bridge - 1 x daily - 6 x weekly - 3 sets - 8 reps - Sidelying Hip Abduction - 1 x daily - 6 x weekly - 3 sets - 8 reps - Sit to Stand - 1 x daily - 6 x weekly - 3 sets - 8 reps -------- Normal [facility] THERAPY NTon 08-06-2024 THERAPY NT HNO ID: [id number] Author: CODIE MUNGUIA, PT Service: ? Author Type: Physical Therapist Type: Therapy (PT/OT/Speech/Resp) Filed: 08/06/2024 13:24 Note Text: Program_ID:[id number] Access Code: [email or web address] URL: [email or web address] Date: 08-06-2024 Prepared By: Codie Munguia Program Notes Exercises - Supine Bridge - 1 x daily - 6 x weekly - 3 sets - 8 reps - Bridge Marching with Eccentric Lowering - 1 x daily - 6 x weekly - 3 sets - 8 reps - Single Leg Bridge - 1 x daily - 6 x weekly - 3 sets - 8 reps - Sidelying Hip Abduction - 1 x daily - 6 x weekly - 3 sets - 8 reps - Sit to Stand - 1 x daily - 6 x weekly - 3 sets - 8 reps Normal [facility] CBC panel Auto (Bld)on 07-26 Erythrocyte distribution width (RBC) [Ratio] 13.0 % 11.5 - 15.0 % [facility] Hematocrit (Bld) [Volume fraction] 39.7 % 36.0 - 46.0 % [facility] Hemoglobin (Bld) [Mass/Vol] 12.5 g/dL 11.5 - 15.5 g/dL [facility] Interpretation and review of laboratory results Normal [facility] MCH (RBC) [Entitic mass] 29.0 pg 26. 0 - 34.0 pg [facility] MCHC (RBC) [Mass/Vol] 31.5 g/dL 30.5 - 36.0 g/dL [facility] MCV (RBC) [Entitic vol] 92.1 fL 80.0 - 100.0 fL [facility] Nucleated RBC (Bld) [#/Vol] NINF [facility] Platelet mean volume (Bld) [Entitic vol] 10.2 fL 9.0 - 12.7 fL [facility] Platelets (Bld) [#/Vol] 371 10*3/uL [facility] RBC (Bld) [#/Vol] 4.31 10*6/uL 3.90 - 5.20 m/uL [facility] WBC (Bld) [#/Vol] 9.46 10*3/uL [facility] Erythrocyte distribution width (RBC) [Ratio] 13.0 % Normal 11.5-15.0 [facility] Comment on above: Order Comment: Speci men Type: BLOOD SPECIMEN Ordering Facility: [facility] Address: [address] [place] [address] Performed By: #### 5 8410-2 #### [facility] CLIA [id number] [address] [place] [address] [place] Hematocrit (Bld) [Volume fraction] 39.7 % Normal 36.0-46.0 [facility] Comment on above: Order Comment: Speci men Type: BLOOD SPECIMEN Ordering Facility: [facility] Address: [address] [place] [address] Performed By: #### 5 8410-2 #### [facility] CLIA [id number] [address] [place] [address] [place] Hemoglobin (Bld) [Mass/Vol] 12.5 g/dL Normal 11.5-15. 5 [facility] Comment on above: Order Comment: Speci men Type: BLOOD SPECIMEN Ordering Facility: [facility] Address: [address] [place] [address] Performed By: #### 5 8410-2 #### [facility] CLIA [id number] [address] [place] [address] [place] MCH (RBC) [Entitic mass] 29.0 pg Normal 26.0-34.0 [facility] Comment on above: Order Comment: Speci men Type: BLOOD SPECIMEN Ordering Facility: [facility] Address: [address] [place] [address] Performed By: #### 5 8410-2 #### [facility] CLIA [id number] [address] [place] [address] [place] MCHC (RBC) [Mass/Vol] 31.5 g/dL Normal 30.5-36.0 [facility] Comment on above: Order Comment: Speci men Type: BLOOD SPECIMEN Ordering Facility: [facility] Address: [address] [place] [address] Performed By: #### 5 8410-2 #### [facility] CLIA [id number] [address] [place] [address] [place] MCV (RBC) [Entitic vol] 92.1 fL Normal 80.0-100.0 [facility] Comment on above: Order Comment: Speci men Type: BLOOD SPECIMEN Ordering Facility: [facility] Address: [address] [place] [address] Performed By: #### 5 8410-2 #### [facility] CLIA [id number] [address] [place] [address] [place] Nucleated RBC (Bld) [#/Vol] 10*3/uL Normal <0.01 [facility] Comment on above: Order Comment: Speci men Type: BLOOD SPECIMEN Ordering Facility: [facility] Address: [address] [place] [address] Performed By: #### 5 8410-2 #### [facility] CLIA [id number] [address] [place] [address] [place] Platelet mean volume (Bld) [Entitic vol] 10.2 fL Normal 9.0-12.7 [facility] Comment on above: Order Comment: Speci men Type: BLOOD SPECIMEN Ordering Facility: [facility] Address: [address] [place] [address] Performed By: #### 5 8410-2 #### [facility] CLIA [id number] [address] [place] [address] [place] Platelets (Bld) [#/Vol] 371 10*3/uL Normal 150-400 [facility] Comment on above: Order Comment: Speci men Type: BLOOD SPECIMEN Ordering Facility: [facility] Address: [address] [place] [address] Performed By: #### 5 8410-2 #### [facility] CLIA [id number] [address] [place] [address] [place] RBC (Bld) [#/Vol] 4.31 10*6/uL Normal 3.90-5.20 [facility] Comment on above: Order Comment: Carlos Manuel gilmore Type: BLOOD SPECIMEN Ordering Facility: [facility] Address: [address] [place] [address] Performed By: #### 5 8410-2 #### [facility] CLIA [id number] [address] [place] [address] [facility] [place] WBC (Bld) [#/Vol] 9.46 10*3/uL Normal 3.70-11.00 [facility] Comment on above: Order Comment: Carlos Manuel gilmore Type: BLOOD SPECIMEN Ordering Facility: [facility] Address: [address] [place] [address] Performed By: #### 5 8410-2 #### [facility] [facility] CLIA [id number] OF [facility] CNOVon 07-26-2024 CNOV Office Visit (FAMPBR) MARCIAL YEUNG ([id number]) 1965 F NFR Date Time Provider Department 07/26/24 1:00 PM JAMES HARRY FAMPBR During your visit today, we recorded the following information about you: Pulse Blood pressure Weight Height 75/minute 130/80 65.2 kg 1.575 m James Harry DO 07/26/2024 2:07 PM Signed CC: anxiety f/u S: 59 year old female with history below presents for anxiety f/u.was given 30 lorazepam and has not taken it in "awhile". Last dose was 2-3 months ago. Anxiety has been well controlled. Having issues with bruising- noticed bruising on the UEs a few times in the past couple months. Admits to having taken "a lot of motrin" for her hip pain until she got on tramadol. Was on "9 motrin a day" at one point. Not taking them regularly. Admits to spending a lot of time in the sun. Has used tanning beds as recently as the summer. Found to have a left FA labral tear. Had a left hip injection. It is not being recommended that she get her labrums repaired. Patient admits to moving around a lot - goes biking/kayaking in the summertime. Does more weightlifting/yoga in the winter time. Going to PT for her hips. 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 Takes half a dose of tramadol before and during her day, then takes another one before bedtime. Doing everything she can to avoid surgery. PHQ-9 Score: 2 (07/26/2024 12:58 PM) (0-4) minimal depression, (5-9) mild depression, (10-14) moderate depression, (15-19) moderately severe depression, (20-27) severe depression KEYONNA-7 Total Score: 7 (12/05/2018 3:10 PM) (0-4) minimal anxiety, (5-9) mild anxiety, (10-14) moderate anxiety, (15-21) severe anxiety Has a fine tremor that is worse with pain/stress and better after lorazepam. Wondering what it could be. Brother has the tremor as well. PDMP website checked and validated. All prescriptions have been APPROPRIATELY filled. No suspicious activity was identified. 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; indication: symptomatic PSVT with WPW syndrome Other anxiety states Palpitations Paroxysmal supraventricular tachycardia (HCC) see "WPW Syndrome" Primary insomnia 06/11/2015 Sinus tachycardia 10/20/2023 Stress incontinence, female Unspecified asthma(493.90) WPW (Wwjsa-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; attempt at catheter ablation 11/2016 failed; she continues to experience intermittent palpitations and tachycardia despite treatment with flecainide; successful RFCA 03/2018 PAST SURGICAL HISTORY Procedure Laterality Date BLADDER SURGERY HX 11/2015 bladder sling BREAST AUGMENTATION WITH IMPLANT 11/2007 Breast augmentation CARDIAC MONITORING CONTINUOUS 05/25/2018 96 hours monitoring: sinus rhythm, sinus tachycardia; patient event activations and/or reported symptoms correlated with sinus rhythm and sinus tachycardia DELIVERY ONLY 85, 88,92 , low cervical X3 COLONOSCOPY 06/2021 EGD 2019 LIGATION OF HEMORRHOID(S) 10/07/2020 IUD INSERTION ([facility])_*FL 08/30/2007 Mirena - removed LAPAROSCOPY SURG CHOLECYSTECTOMY 11/16/2017 [facility] OOPHORECTOMY, PART/TOTAL UNILAT/BILAT 2016 PAST SURGICAL HISTORY OF 09/2021 C4-C6 disc replacement S PK LAVH [id number] 2013 lavh RICKY biltareal salpingectomy SVT ABLATION W/ EP COMPLETE 11/24/2016 [facility], Dr. Mcknight; right midseptal AP unable to be ablated despite cryoablation and RF ablation attempts; AP described as not having capability for extremely rapid antegrade conduction SVT ABLATION W/ EP COMPLETE 03/28/2018 left posteroseptal AP just within the proximal CS; Stereotaxis RF with Carto guidance, successful elimination of AP conduction; no SVT inducible pre- or post-ablation; [facility] Dr. Luong TONSILLECTOMY AND ADENOIDECTOMY VAGINAL HYSTERECTOMY Current Outpatient Medications Medication Sig Dispense Refill traZODone (DESYREL) 50 mg tablet TAKE 1 AND 1/2 TABLETS BY MOUTH EVERY NIGHT AT BEDTIME 135 tablet 3 traMADol (ULTRAM) 50 mg tablet Take 1 tablet by mouth every 12 hours for 30 days. 60 tablet 0 metoprolol succinate ER (TOPROL XL) 25 mg 24 hr tablet Take 1 tablet by mouth every afternoon. 90 tablet 3 Ipratropium [place] (ATROVENT) 21 mcg (0.03 %) nasal spray INHALE 2 SPRAYS IN EACH NOSTRIL 3 TIMES A DAY 90 mL 3 REFRESH OPTIVE ADVANCED 0.5-1-0.5 % drop INSTILL 1 DROP IN EACH EYE 4 TIMES A DAY (more content not included)... Normal [facility] metabolic 2000 panelon 07-26-2024 Albumin [Mass/Vol] 4.5 g/dL 3.9 - 4.9 g/dL [facility] ALP [Catalytic activity/Vol] 61 U/L 34 - 123 U/L [facility] ALT [Catalytic activity/Vol] 36 U/L 7 - 38 U/L [facility] Anion gap [Moles/Vol] 9 mmol/L 8 - 15 mmol/L [facility] AST [Catalytic activity/Vol] 22 U/L 13 - 35 U/L [facility] Bilirubin [Mass/Vol] 0.2 mg/dL 0.2 - 1 .3 mg/dL [facility] Calcium [Mass/Vol] 9.5 mg/dL 8.5 - 10. 2 mg/dL [facility] Chloride [Moles/Vol] 104 mmol/L 98 - 10 7 mmol/L [facility] CO2 [Moles/Vol] 27 mmol/L 22 - 30 mmol/L [facility] Creatinine [Mass/Vol] 0.99 mg/dL High 0.58 - 0.96 mg/dL [facility] GFR/1.73 sq M.predicted among non-blacks MDRD (S/P/Bld) [Vol rate/Area] 66 mL/min/{1.73_m2} - [facility] Comment on above: Estimated Glomerular Filtration Rate (eGFR) is calculated using the 2020 CKD-EPI creatinine equation. This equation utilizes serum creatinine, sex, and age as parameters. The creatinine assay has traceable calibration to isotope dilution-mass spectrometry. Refer to KDIGO guidelines for clinical interpretation. In patients with unstable renal function, e.g. those with acute kidney injury, the eGFR may not accurately reflect actual GFR. Glucose [Mass/Vol] 96 mg/dL 74 - 99 mg/dL [facility] Comment on above: The [place] Diab[place] s Association (ADA) provides guidance for cutoff values for fasting glucose and random glucose. The ADA defines fasting as no caloric intake for at least 8 hours. Fasting plasma glucose results between 100 to 125 [...] Standards of Medical Care in Diabetes 2016, [place] Diabetes Association. Diabetes Care. 2016.39(Suppl 1). Interpretation and review of laboratory results Abnormal [facility] Potassium [Moles/Vol] 4.3 mmol/L 3.7 - 5.1 mmol/L [facility] Protein [Mass/Vol] 6.7 g/dL 6.3 - 8.0 g/dL [facility] Sodium [Moles/Vol] 140 mmol/L 136 - 144 mmol/L [facility] Urea nitrogen [Mass/Vol] 14 mg/dL 7 - 21 mg/dL [facility] Albumin [Mass/Vol] 4.5 g/dL Normal 3.9-4.9 [facility] Comment on above: Order Comment: Carlos Manuel gilmore Type: BLOOD SPECIMEN Ordering Facility: [facility] Address: [address] [place] [address] Performed By: #### 5 0190-8, 2275- #### [facility] CLIA [id number] [address] [place] [address] [place] ALP [Catalytic activity/Vol] 61 U/L Normal 34-123 [facility] Comment on above: Order Comment: Carlos Manuel gilmore Type: BLOOD SPECIMEN Ordering Facility: [facility] Address: [address] [place] [address] Performed By: #### 5 0190-8, 6-4 #### [facility] CLIA [id number] [address] [place] [address] [place] ALT [Catalytic activity/Vol] 36 U/L Normal 7-38 [facility] Comment on above: Order Comment: Arleti deirdre Type: BLOOD SPECIMEN Ordering Facility: [facility] Address: [address] [place] [address] Performed By: #### 5 0190-8, 6-4 #### [facility] CLIA [id number] [address] [place] [address] [place] Anion gap [Moles/Vol] 9 mmol/L Normal 8-15 [facility] Comment on above: Order Comment: Speci men Type: BLOOD SPECIMEN Ordering Facility: [facility] Address: [address] [place] [address] Performed By: #### 5 0190-8, 6-4 #### [facility] CLIA [id number] [address] [place] [address] [place] AST [Catalytic activity/Vol] 22 U/L Normal 13-35 [facility] Comment on above: Order Comment: Speci men Type: BLOOD SPECIMEN Ordering Facility: [facility] Address: [address] [place] [address] Performed By: #### 5 0190-8, 2275-4 #### [facility] CLIA [id number] [address] [place] [address] [place] Bilirubin [Mass/Vol] 0.2 mg/dL Normal 0.2-1.3 [facility] Comment on above: Order Comment: Speci men Type: BLOOD SPECIMEN Ordering Facility: [facility] Address: [address] [place] [address] Performed By: #### 5 0190-8, 2275-4 #### [facility] CLIA [id number] [address] [place] [address] [place] Calcium [Mass/Vol] 9.5 mg/dL Normal 8.5-10.2 [facility] Comment on above: Order Comment: Speci men Type: BLOOD SPECIMEN Ordering Facility: [facility] Address: [address] [place] [address] Performed By: #### 5 0190-8, 2275-4 #### [facility] CLIA [id number] [address] [place] [address] [place] Chloride [Moles/Vol] 104 mmol/L Normal 98-107 [facility] Comment on above: Order Comment: Speci men Type: BLOOD SPECIMEN Ordering Facility: [facility] Address: [address] [place] [address] Performed By: #### 5 0190-8, 2276-4 #### [facility] CLIA [id number] [address] [place] [address] [place] CO2 [Moles/Vol] 27 mmol/L Normal 22-30 [facility] Comment on above: Order Comment: Speci men Type: BLOOD SPECIMEN Ordering Facility: [facility] Address: [address] [place] [address] Performed By: #### 5 0190-8, 6-4 #### [facility] CLIA [id number] [address] [place] [address] [place] Creatinine [Mass/Vol] 0.99 mg/dL High 0.58-0.96 [facility] Comment on above: Order Comment: Speci men Type: BLOOD SPECIMEN Ordering Facility: [facility] Address: [address] [place] [address] Performed By: #### 5 0190-8, 6-4 #### [facility] CLIA [id number] [address] [place] [address] [place] Creatinine and Glomerular filtration rate.predicted panel (S/P/Bld) 66 mL/min/1.73m??? Normal >=60 [facility] Comment on above: Order Comment: Speci men Type: BLOOD SPECIMEN Ordering Facility: [facility] Address: [address] [place] [address] Result Comment: Osiris mated Glomerular Filtration Rate (eGFR) is calculated using the 2020 CKD-EPI creatinine equation. This equation utilizes serum creatinine, sex, and age as parameters. The creatinine assay has traceable calibration to isotope dilution-mass spectrometry. Refer to KDIGO guidelines for clinical interpretation. In patients with unstable renal function, e.g. those with acute kidney injury, the eGFR may not accurately reflect actual GFR. Performed By: #### 5 0190-8, 2276-4 #### [facility] CLIA [id number] [address] [place] [address] [place] Glucose [Mass/Vol] 96 mg/dL Normal 74-99 [facility] Comment on above: Order Comment: Speci men Type: BLOOD SPECIMEN Ordering Facility: [facility] Address: [address] [place] [address] Result Comment: The [place] Diabetes Association (ADA) provides guidance for cutoff values for fasting glucose and random glucose. The ADA defines fasting as no caloric intake for at least 8 hours. Fasting plasma glucose results between 100 to 125 [...] Standards of Medical Care in Diabetes 2016, [place] Diabetes Association. Diabetes Care. 2016.39(Suppl 1). Performed By: #### 5 0190-8, 6- #### [facility] CLIA [id number] [address] [place] [address] [place] Potassium [Moles/Vol] 4.3 mmol/L Normal 3.7-5.1 [facility] Comment on above: Order Comment: Arleti men Type: BLOOD SPECIMEN Ordering Facility: [facility] Address: [address] [place] [address] Performed By: #### 5 0190-8, 6- #### [facility] CLIA [id number] [address] [place] [address] [place] Protein [Mass/Vol] 6.7 g/dL Normal 6.3-8.0 [facility] Comment on above: Order Comment: Speci men Type: BLOOD SPECIMEN Ordering Facility: [facility] Address: [address] [place] [address] Performed By: #### 5 0190-8, 6- #### [facility] CLIA [id number] [address] [place] [address] [place] Sodium [Moles/Vol] 140 mmol/L Normal 136-144 [facility] Comment on above: Order Comment: Speci men Type: BLOOD SPECIMEN Ordering Facility: [facility] Address: [address] [place] [address] Performed By: #### 5 0190-8, 2276-4 #### [facility] CLIA [id number] [address] [place] [address] [place] Urea nitrogen [Mass/Vol] 14 mg/dL Normal 7-21 [facility] Comment on above: Order Comment: Speci men Type: BLOOD SPECIMEN Ordering Facility: [facility] Address: [address] [place] [address] Performed By: #### 5 0190-8, 2275-4 #### [facility] CLIA [id number] [address] [place] [address] [place] Ferritin SerPl-ncon 2023 Ferritin [Mass/Vol] 53.3 ng/mL Normal 14.7-205.1 [facility] Comment on above: Order Comment: Speci men Type: BLOOD SPECIMEN Ordering Facility: [facility] Address: [address] [place] [address] Performed By: #### 5 0190-8, 2275-4 #### [facility] CLIA [id number] [address] [place] [address] [place] Iron and Iron binding capaci ty panelon 07-26-2024 Iron [Mass/Vol] 81 ug/dL Normal 41-186 [facility] Comment on above: Order Comment: Speci men Type: BLOOD SPECIMEN Ordering Facility: [facility] Address: [address] [place] [address] Performed By: #### 5 0190-8, 6-4 #### [facility] CLIA [id number] [address] [place] [address] [place] Iron binding capacity [Mass/Vol] 338 ug/dL Normal 232-386 [facility] Comment on above: Order Comment: Speci men Type: BLOOD SPECIMEN Ordering Facility: [facility] Address: [address] [place] [address] Performed By: #### 5 0190-8, 6-4 #### [facility] CLIA [id number] [address] [place] [address] [place] Iron/TIBC [Molar ratio] 24.0 % Normal 15.0-57.0 [facility] Comment on above: Order Comment: Speci men Type: BLOOD SPECIMEN Ordering Facility: [facility] Address: [address] [place] [address] Performed By: #### 5 0190-8, 2275-4 #### [facility] CLIA [id number] [address] [place] [address] [place] THYROID STIMULATING HORMONEo n 07-26-2024 TSH Qn 1.470 m[IU]/L [facility] TSH Qnon 07-26-2024 Interpretation and review of laboratory results Normal [facility] TSH SerPl-aCncon 07-26-2024 TSH Qn 1.470 m[IU]/L Normal 0.270-4.20 0 [facility] Comment on above: Order Comment: Speci men Type: BLOOD SPECIMEN Ordering Facility: [facility] Address: [address] [place] [address] Performed By: #### 5 0190-8, 2275-4 #### [facility] CLIA [id number] [address] [place] [address] [place] Large Joint Arthro/Inj: L hi p jointon 07-18-2024 Nimesh Velasquez DO 07/18/2024 11:28 AM Large Joint Arthro/Inj: L hip joint Informed Consent Consent Obtained: Verbal [place] Protocol A moment to CARE was completed. SIGN IN Personnel directly involved with the procedure wore the appropriate PPE. Patient/Surrogate Stated/Verified: Patient name, Date of , Relevant allergies and Intended procedure TIME OUT Intended patient and procedure match the source document(s). Consent documented and matches the intended procedure. Correct side/site marked and visible. Medications required for procedure verified. Fire risk assessed and interventions discussed. 07/18/2024 11:28 AM The procedure site was prepped in the usual sterile fashion. Site: L hip joint Details:Musculoskele africa ultrasound was utilized to successfully localize placement of the injection needle at the appropriate site. Ultrasound images demonstrating local vasculature and demonstrating injection of solution were saved. Medications: 6 mg betamethasone acetate-betamethason e sodium phosphate 6 mg/mL Anesthetics: 2 mL lidocaine (PF) 10 mg/mL (1 %) Outcome: Tolerated well, no immediate complications Post-injection instructions were reviewed with the patient and the patient voiced understanding of these instructions. SIGN OUT Post-procedure follow-up management communicated and Plan of Care Visit completed when applicable [facility] US Hip - lefton 07-18-2024 [facility] Radiology Study observation (narrative) [facility] MR Hip - left WO contraston 07-10-2024 IMPRESSION: TEAR IN THE LEFT ANTERIOR SUPERIOR LABRUM. LEFT HIP LOW-GRADE DEGENERATIVE CHONDRAL CHANGES. BILATERAL GLUTEUS MINIMUS AND MEDIUS TENDINOSIS. 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 COMPARISON: Right hip MRI dated 01/25/2024 and radiographs dated 06/25/2024. TECHNIQUE: Hip MRI protocol. RESULT: Left Hip: Tear in the anterior superior labrum. Low-grade degenerative chondral changes. No fractures. No avascular necrosis. No joint effusion. No synovitis. Right Hip: No fractures. No avascular necrosis. Large field of view images limits evaluation of labrum and cartilage. Sacroiliac joints: Within normal limits. Pubic symphysis: Within normal limits. Tendons: Bilateral gluteus minimus and medius tendinosis. Muscles: Within normal limits. Bone Marrow: No fractures or marrow replacing lesions. Other: No other significant abnormality identified. Localizer image: Non-diagnostic. DIVISION OF RADIOLOGY Provider, [facility] [place] - 07/10/2024 * * *Final Report* * * DATE OF EXAM: Jul 10 2024 12:23PM M2M 0206 - MRI HIP WO IVCON LT / PROCEDURE REASON: Pain of left hip * * * * Physician Interpretation * * * * MRI Left Hip INDICATION: Pain of left hip .. COMPARISON: Right hip MRI dated 01/25/2024 and radiographs dated 06/25/2024. TECHNIQUE: Hip MRI protocol. RESULT: Left Hip: Tear in the anterior superior labrum. Low-grade degenerative chondral changes. No fractures. No avascular necrosis. No joint effusion. No synovitis. Right Hip: No fractures. No avascular necrosis. Large field of view images limits evaluation of labrum and cartilage. Sacroiliac joints: Within normal limits. Pubic symphysis: Within normal limits. Tendons: Bilateral gluteus minimus and medius tendinosis. Muscles: Within normal limits. Bone Marrow: No fractures or marrow replacing lesions. Other: No other significant abnormality identified. Localizer image: Non-diagnostic. IMPRESSION IMPRESSION: TEAR IN THE LEFT ANTERIOR SUPERIOR LABRUM. LEFT HIP LOW-GRADE DEGENERATIVE CHONDRAL CHANGES. BILATERAL GLUTEUS MINIMUS AND MEDIUS TENDINOSIS. 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KLARISSA Transcribe Date/Time: Jul 10 2024 8:32P Dictated by : CASSANDRA ZARATE MD This examination was interpreted and the report reviewed and electronically signed by: CASSANDRA ZARATE MD on Jul 10 2024 8:40PM EST [facility] Radiology Study observation (narrative) [facility] MR Hip - left WO contrastOrd ered By: [facility] Provider on 07-10-2024 [facility] XR Pelvis and Hip - left AP and Lateral frogon 06-25-2024 IMPRESSION: No acute osseous abnormality. 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KLARISSA Transcribe Date/Time: Jun 25 2024 4:20P Dictated by : MAGDA MOE MD This examination was interpreted and the report reviewed and electronically signed by: MAGDA MOE MD on Jun 25 2024 4:21PM EST DIVISION OF RADIOLOGY * * *Final Report* * * DATE OF EXAM: Jun 25 2024 1:12PM M2X 5351 - XR HIP 3V PELV+ AP/LAT LT / PROCEDURE REASON: Pain in left hip * * * * Physician Interpretation * * * * EXAMINATION / TECHNIQUE: XR HIP 3V PELV+ AP/LAT LT PATIENT/TECHNOLOGIST PROVIDED HISTORY: Patient complains of left hip pain CLINICAL INFORMATION ( PROVIDED BY ORDERING CLINICIAN) : Pain in left hip COMPARISON: 12/09/2023 RESULT: No acute fracture or dislocation. No significant malalignment. The left hip joint spaces relatively maintained. Remaining pelvic joint spaces are also maintained. DIVISION OF RADIOLOGY Provider, [facility] [place] - 06/25/2024 * * *Final Report* * * DATE OF EXAM: Jun 25 2024 1:12PM M2X 5351 - XR HIP 3V PELV+ AP/LAT LT / PROCEDURE REASON: Pain in left hip * * * * Physician Interpretation * * * * EXAMINATION / TECHNIQUE: XR HIP 3V PELV+ AP/LAT LT PATIENT/TECHNOLOGIST PROVIDED HISTORY: Patient complains of left hip pain CLINICAL INFORMATION ( PROVIDED BY ORDERING CLINICIAN) : Pain in left hip COMPARISON: 12/09/2023 RESULT: No acute fracture or dislocation. No significant malalignment. The left hip joint spaces relatively maintained. Remaining pelvic joint spaces are also maintained. IMPRESSION IMPRESSION: No acute osseous abnormality. 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[facility] Transcribe Date/Time: Jun 25 2024 4:20P Dictated by : MAGDA MOE MD This examination was interpreted and the report reviewed and electronically signed by: MAGDA MOE MD on Jun 25 2024 4:21PM EST [facility] Radiology Study observation (narrative) [facility] XR Pelvis and Hip - left AP and Lateral frogOrdered By: [facility] Provider on 06-25-2024 [facility] ECHOon 06-06-2024 CONCLUSIONS: - Exam indication: Palpitations - The left ventricle is normal in size. There is no left ventricular hypertrophy. Left ventricular systolic function is normal. EF = 59 5% (2D biplane) Normal left ventricular diastolic function. - The right ventricle is normal in size. Right ventricular systolic function is normal. - No significant valve disease. - The patient has not had a prior [facility] echocardiographic exam for comparison. * * * Final * * * [facility] Echocardi[facility] Report: Transthoracic Echo [facility] Date of service: 06/06/2024 10:30:42 AM [facility] Ordering physician: ALBINA LUONG Indication: Palpitations Technologist: Cyndie Chadwick [facility] Interpreting physician: Kishan Matthews MD PATIENT: Name: MRS. MARCIAL YEUNG : 1965 Age: 58 years Gender: F Primary rhythm: sinus. Height: 157.50 cm BSA: 1.68 m Weight: 64.86 kg BMI: 26.1 kg/m Heart rate 68 bpm Blood pressure 129/85 mmHg Color Doppler was utilized to interrogate the cardiac valves assessed and spectral Doppler was utilized to determine the flow velocities and pressure gradients reported in this exam. MEASUREMENTS: Value Indexed Normal Max aortic dimension 2.9 cm Ao < 3.8 Left atrium diameter 3.2 cm (2D) Left atrial volume 31 ml (biplane A-L) 19 ml/m Chhaya <= 34 LV ID (diastole) 4.1 cm (2D) 2.42 cm/m LV ID (systole) 2.6 cm (2D) 1.56 cm/m IVS, leaflet tips 0.9 cm (2D) Posterior wall thickness 0.8 cm (2D) Left ventricular mass 109 g (2D) 65 g/m LV stroke volume 42 ml (2D biplane) LV end diastolic volume 70 ml (2D biplane) 41.6 ml/m 29<=EDVi<62 LV end systolic volume 28 ml (2D biplane) 16.9 ml/m Ejection Fraction 59 % (2D biplane) EF > 54 FINDINGS: LEFT VENTRICLE The left ventricle is normal in size. There is no left ventricular hypertrophy. Left ventricular systolic function is normal. Normal left ventricular diastolic function. Mitral annular lateral E/e': 5.4. Mitral annular septal E/e': 8.2. Wall Motion: All scored segments are normal. RIGHT VENTRICLE The right ventricle is normal in size. Right ventricular systolic function is normal. RV systolic tissue Doppler velocity is 9.1 cm/s. Tricuspid annular displacement is 2.2 cm. Estimated right ventricular systolic pressure is likely underestimated due to a weak or incomplete tricuspid regurgitation signal and is, at least, 21 mmHg consistent with normal pulmonary artery pressures. Estimated right atrial pressure is 3 mmHg based on IVC assessment. LEFT ATRIUM The left atrial cavity is normal in size. RIGHT ATRIUM The right atrial cavity is normal in size. Inferior Vena Cava: The inferior vena cava appears normal measuring 1.0 cm. The vessel decreases greater than 50 percent with inspiration. MITRAL VALVE The mitral valve leaflets are structurally normal. There is trace mitral valve regurgitation. The pressure half time is 72 msec. The peak mitral E/A ratio is 1.12. The average mitral E/e' ratio is 6.8. The mitral flow deceleration time is 248 msec. TRICUSPID VALVE The tricuspid valve leaflets are structurally normal. There is trace tricuspid valve regurgitation. AORTIC VALVE The aortic valve was not seen or not interrogated. There is no aortic valve stenosis. There is no aortic valve regurgitation. The LVOT diameter is 1.8 cm. PULMONIC VALVE The pulmonic valve cusps are structurally normal. There is no pulmonic valve regurgitation. AORTA The visualized aorta is normal in size. Measurements - Sinus: 2.7 cm. Mid ascending aorta 2.9 cm. PULMONARY ARTERIES The pulmonary arteries are unseen or not interrogated. PERICARDIUM There is no pericardial effusion. [facility] ECG B/O W INTERP (MED OFFICE )on 05-25-2024 Interpretation and review of laboratory results Normal [facility] Sinus rhythm 72 bpm; normal conduction intervals ([place] 134 ms, QRS 88 ms); QTc 459 ms [facility] Large Joint Arthro/Inj: R hi p jointon 03-02-2024 Nimesh Velasquez DO 03/02/2024 9:01 AM Large Joint Arthro/Inj: R hip joint Informed Consent Consent Obtained: Verbal [place] Protocol A moment to CARE was completed. SIGN IN Personnel directly involved with the procedure wore the appropriate PPE. Patient/Surrogate Stated/Verified: Patient name, Date of , Relevant allergies and Intended procedure TIME OUT Intended patient and procedure match the source document(s). Consent documented and matches the intended procedure. Correct side/site marked and visible. Medications required for procedure verified. Fire risk assessed and interventions discussed. 03/02/2024 9:01 AM The procedure site was prepped in the usual sterile fashion. Site: R hip joint Details:Musculoskele africa ultrasound was utilized to successfully localize placement of the injection needle at the appropriate site. Ultrasound images demonstrating local vasculature and demonstrating injection of solution were saved. Medications: 40 mg triamcinolone acetonide 40 mg/mL Anesthetics: 2 mL lidocaine (PF) 10 mg/mL (1 %) Outcome: Tolerated well, no immediate complications Post-injection instructions were reviewed with the patient and the patient voiced understanding of these instructions. SIGN OUT All specimen containers correctly labeled. Post-procedure follow-up management communicated and Plan of Care Visit completed when applicable [facility] US Hip - righton 03-02-2024 [facility] Radiology Study observation (narrative) [facility] CNTHERAPYon 02-02-2024 CNTHERAPY OT/PT/Speech Visit (SPMBME) MARCIAL YEUNG ([id number]) 1965 F NFR Date Time Provider Department 02/02/24 1:00 PM AMANDA VANGBMJose J Date Time Provider Department Center 02/02/2024 1:00 PM [id number] [facility]ME [facility] Reason for Visit: Speech Instrumental Swallow Eval [3660] Speech Discharge [3488] Primary Visit Diagnosis:Oropharyng eal dysphagia [R13.12] Allergies As of Date: 02/02/2024 Noted Allergy Reaction 2-OCTYL CYANOACRYLATE 05/25/2021 2 - Rash Comments: Blistering contact reaction CITALOPRAM 09/07/2017 14 - Other: See Comments Comments: Did not tolerate, ? Mental status changes LIQUID BANDAGE (ENBUCRILATE) 12/27/2017 2 - Rash Comments: blisters and rash PROPRANOLOL 01/25/2007 1 - Mental Status Change TETRACYCLINE 09/08/2005 8 - GI Upset Comments: Abdominal pain/cramping Date Reviewed: 01/24/2024 Reviewed by: Sharron Hollis APRN.ASBESTOS MICROSCOPIST - Fully Assessed Prescriptions as of 02/02/2024 - rimegepant (NURTEC ODT) 75 mg disintegrating tablet dissolve 1 tablet orally AT ONSET OF MIGRAINE and may repeat ONCE PER 24 HOURS IF NEEDED - magnesium oxide (MAG-OX) 400 mg (241.3 mg magnesium) tablet Take 1 tablet by mouth once daily. - traZODone (DESYREL) 50 mg tablet TAKE 1 AND 1/2 TABLETS BY MOUTH EVERY NIGHT AT BEDTIME - uqfsbdejuwkin-ldx-kx ly80-PF (REFRESH OPTIVE ADVANCED, PF,) 0.5-1-0.5 % dpet Use 1 Drop in eyes four times a day as needed. - pantoprazole DR (PROTONIX) 40 mg tablet Take 1 tablet by mouth two times a day. - gabapentin (NEURONTIN) 100 mg capsule Take 1 capsule by mouth two times a day for 60 days. - ipratropium bromide (ATROVENT) 42 mcg (0.06 %) nasal spray Use 2 Sprays in the nose three times a day. - Ipratropium [place] (ATROVENT) 21 mcg (0.03 %) nasal spray Use 2 Sprays in the nose three times a day. - levalbuterol tartrate HFA 45 mcg/actuation inhaler Inhale 1-2 Puffs as instructed every 4 hours as needed for wheezing/shortness of breath. - fexofenadine (LAURA ALLERGY) 180 mg tablet Take 1 tablet by mouth once daily. - tiZANidine (ZANAFLEX) 4 mg tablet Take 1 tablet by mouth every 8 hours as needed. prn - cephALEXin (KEFLEX) 250 mg capsule Take 250 mg by mouth once daily as needed (after intercourse). - montelukast (SINGULAIR) 10 mg tablet - metoprolol succinate ER (TOPROL XL) 50 mg 24 hr tablet Take 1 tablet by mouth once daily. - ondansetron (ZOFRAN) 4 mg tablet take 1 tablet by mouth every 8 hours if needed for nausea and vomiting - ARNUITY ELLIPTA 200 mcg/actuation inhaler inhale 1 puff by mouth daily - fluticasone (FLOVENT HFA) 110 mcg/actuation inhaler Inhale 1 Puff as instructed twice daily. Shake well before use. Rinse mouth after use. - dicyclomine (BENTYL) 10 mg capsule Take 1 capsule by mouth three times daily. - albuterol HFA (PROVENTIL HFA, VENTOLIN HFA) 90 mcg/actuation inhaler Inhale 2 Puffs as instructed every 4 hours as needed. - phenazopyridine (PYRIDIUM, GERIDIUM) 200 mg tablet Take 200 mg by mouth three times a day as needed for pain. prn - cholestyramine (QUESTRAN) 4 gram packet take 1 packet ( 4 grams ) by mouth twice a day dissolve in 2 to 6 ounces OF WATER OR NONCARBONATED BEVERAGE with meals - estradiol (NOBLE, VIVELLE-DOT) 0.025 mg/24 hr 1 Patch every Tuesday and Tuesday. Normal [facility] RF videography Hypopharynx a nd Esophagus Views W liquid and paste contrast PO during swallowingon 02-02-2024 IMPRESSION: The speech pathologist report and recommendations are present in the Notes component of EPIC. Images were not evaluated or interpreted by the radiologist. 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[employer] Transcribe Date/Time: Feb 02 2024 2:46P Dictated by : JOSE ANGEL NETTLES MD This examination was interpreted and the report reviewed and electronically signed by: JOSE ANGEL NETTLES MD on Feb 02 2024 2:47PM EST [facility] * * *Final Report* * * DATE OF EXAM: Feb 02 2024 2:08PM MDX 5377 - XR MOD BARIUM SWALLOW W SPEECH / PROCEDURE REASON: K21.9-Gastroesophage al reflux disease, unspecified whether esophagitis present * * * * Physician Interpretation * * * * EXAMINATION: XR MOD BARIUM SWALLOW W SPEECH CLINICAL: Dysphagia RESULT: Fluoroscopy was provided during performance of a swallowing evaluation by the speech pathologist. [facility] Provider, [facility] [place] - 02/02/2024 * * *Final Report* * * DATE OF EXAM: Feb 02 2024 2:08PM MDX 5377 - XR MOD BARIUM SWALLOW W SPEECH / PROCEDURE REASON: K21.9-Gastroesophage al reflux disease, unspecified whether esophagitis present * * * * Physician Interpretation * * * * EXAMINATION: XR MOD BARIUM SWALLOW W SPEECH CLINICAL: Dysphagia RESULT: Fluoroscopy was provided during performance of a swallowing evaluation by the speech pathologist. IMPRESSION IMPRESSION: The speech pathologist report and recommendations are present in the Notes component of [facility]. Images were not evaluated or interpreted by the radiologist. 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[employer]* Transcribe Date/Time: Feb 02 2024 2:46P Dictated by : JOSE ANGEL NETTLES MD This examination was interpreted and the report reviewed and electronically signed by: JOSE ANGEL NETTLES MD on Feb 02 2024 2:47PM EST [facility] Radiology Study observation (narrative) [facility] RF videography Hypopharynx a nd Esophagus Views W liquid and paste contrast PO during swallowingOrdered By: [facility] Provider on 02-02-2024 [facility] XR MOD BARIUM SWALLOW W SPEE Sergei 02-02-2024 XR MOD BARIUM SWALLOW W SPEECH * * *Final Report* * * DATE OF EXAM: Feb 02 2024 2:08PM MDX 5377 - XR MOD BARIUM SWALLOW W SPEECH / PROCEDURE REASON: K21.9-Gastroesophage al reflux disease, unspecified whether esophagitis present * * * * Physician Interpretation * * * * EXAMINATION: XR MOD BARIUM SWALLOW W SPEECH CLINICAL: Dysphagia RESULT: Fluoroscopy was provided during performance of a swallowing evaluation by the speech pathologist. IMPRESSION: The speech pathologist report and recommendations are present in the Notes component of [facility]. Images were not evaluated or interpreted by the radiologist. 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 TECHNIQUE: Routine multiplanar MRI of the hip without contrast COMPARISON: Right hip radiographs 03/04/2023 RESULT: Hip joints: Right hip: Nondisplaced acetabular labral tear along the anterior and anterosuperior aspect. Minimal paralabral chondral fissuring. Articular cartilage is otherwise relatively maintained. Large vsnhi-ui-hckk images of the left hip are unremarkable. Evaluation of articular cartilage and labrum is limited. Bone Marrow: No fracture or suspicious marrow replacing lesions. Sacroiliac joints: Within normal limits. Pubic symphysis: Within normal limits. Tendons: The iliopsoas, hamstring, gluteal, and rectus femoris tendons are intact. Muscles: Within normal limits. Other: No other significant findings. Localizer images: No significant additional findings. DIVISION OF RADIOLOGY Provider, [facility] [place] - 01/26/2024 * * *Final Report* * * DATE OF EXAM: Jan 25 2024 12:54PM M2M 0207 - MRI HIP WO IVCON RT / PROCEDURE REASON: Pain of right hip * * * * Physician Interpretation * * * * EXAMINATION: MRI HIP WO IVCON RT HISTORY: Bilateral hip pain, right greater than left. TECHNIQUE: Routine multiplanar MRI of the hip without contrast COMPARISON: Right hip radiographs 03/04/2023 RESULT: Hip joints: Right hip: Nondisplaced acetabular labral tear along the anterior and anterosuperior aspect. Minimal paralabral chondral fissuring. Articular cartilage is otherwise relatively maintained. Large nnphs-wv-cbeg images of the left hip are unremarkable. Evaluation of articular cartilage and labrum is limited. Bone Marrow: No fracture or suspicious marrow replacing lesions. Sacroiliac joints: Within normal limits. Pubic symphysis: Within normal limits. Tendons: The iliopsoas, hamstring, gluteal, and rectus femoris tendons are intact. Muscles: Within normal limits. Other: No other significant findings. Localizer images: No significant additional findings. IMPRESSION IMPRESSION: Nondisplaced right acetabular labral tear with minimal paralabral chondral fissuring. 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[employer] Transcribe Date/Time: Jan 25 2024 1:37P Dictated by : SIRISHA GARCIA MD This examination was interpreted and the report reviewed and electronically signed by: MAGDA MOE MD on Jan 26 2024 1:11AM EST [facility] MR Hip - right WO contrastOr dered By: [facility] Provider on 01-26-2024 [facility] MR Hip - right WO contraston 01-25-2024 Radiology Study observation (narrative) [facility] Gram stain for investigation of transfusion reactionOrdered By: Lauren Rivas on 01-17-2024 Microscopic observation Gram stain Nom (Unsp spec) [facility] No Panel InformationOrdered By: Lauren Rivas on 01-17-2024 Genital Culture Neisseria or beta-hemolytic Streptococcus isolated. [facility] No Panel Informationon 01-16 POC Bacterial Vaginitis (Rapid) Negative [facility] Absolute lymphocyte countOrd ered By: Tootie Figueroa on 08-05-2023 Lymphocytes Auto (Unsp spec) [#/Vol] 2.73 10*3/uL 0.83-4.51 [facility] Basophil percentageOrdered B y: Tootie Figueroa on 08-05-2023 Basophils/100 WBC (Bld) 0.7 % 0-1 [facility] Bilirubin [Mass/Vol] 0.40 mg/dL 0.20-1.00 [facility] Comment on above: For patients on eltr ombopag therapy, use of Dimension [place] TBIL is not recommended. Chloride [Moles/Vol] 105 mmol/L 98-107 [facility] Cholesterol [Mass/Vol] 211 mg/dL <200 [facility] Comment on above: <200 mg/dL Desirable 200-240 mg/dL Borderline >240 mg/dL High Risk Eosinophils/100 WBC (Bld) 1.0 % 0-5 [facility] Glucose [Mass/Vol] 90 mg/dL 74-106 [facility] Neutrophils (Bld) [#/Vol] 3.7 10*3/uL 2.0-7.7 [facility] Neutrophils/100 WBC (Bld) 51.0 % 47-70 [facility] Potassium [Moles/Vol] 4.1 mmol/L 3.5-5.1 [facility] Protein [Mass/Vol] 7.2 g/dL 6.4-8.2 [facility] Sodium [Moles/Vol] 139 mmol/L 136-145 [facility] Triglyceride [Mass/Vol] 39 mg/dL <199 [facility] Comment on above: The drugs N-Acetylcy steine and Metamizole may falsely depress this assay.Serum Triglycerides Reference Interval Normal <150 mg/dL Borderline high 150 - 199 mg/dL High 200 - 499 mg/dL Very High > or = 500 mg/dL WBC (Bld) [#/Vol] 7.3 10*3/uL 4.4-11.0 [facility] Blood erythrocytes count (nu mber/volume)Ordered By: Tootie Figueroa on 08-05-2023 RBC (Bld) [#/Vol] 4.45 10*6/uL 4.2-5.4 [facility] Blood hemoglobin measurement (mass/volume)Ordered By: Tootie Figueroa on 08-05-2023 Hemoglobin (Bld) [Mass/Vol] 12.8 g/dL 12.0-15. 0 [facility] Blood lymphocytes/100 leukoc ytesOrdered By: Tootie Figueroa on 08-05-2023 Lymphocytes/100 WBC (Bld) 37.5 % 19-41 [facility] Blood monocytes/100 leukocyt esOrdered By: Tootie Figueroa on 08-05-2023 Monocytes/100 WBC (Bld) 9.3 % 0-10 [facility] Blood platelet mean volumeOr dered By: Tootie Figueroa on 08-05-2023 Platelet mean volume (Bld) [Entitic vol] 10.1 fL 6.2-12.0 [facility] Determination of erythrocyte mean corpuscular volume (MCV)Ordered By: Tootie Figueroa on 08-05-2023 MCV (RBC) [Entitic vol] 90.1 fL 81-99 [facility] Hematocrit Auto (Bld) [Volum e fraction]Ordered By: Tootie Figueroa on 08-05-2023 Hematocrit (Bld) [Volume fraction] 40.1 % 37-47 [facility] Laboratory - Chemistry and C hemistry - challengeOrdered By: Tootie Figueroa on 08-05-2023 ALP [Catalytic activity/Vol] 58 U/L 45-117 [facility] ALT [Catalytic activity/Vol] 26 U/L 13-56 [facility] CO2 [Moles/Vol] 29.0 mmol/L 21.0-32.0 [facility] Globulin (S) [Mass/Vol] 3.1 g/dL 2.2-4.2 [facility] Urea nitrogen/Creatinine [Mass ratio] 17.0 mg/mg 10-20 [facility] Laboratory - Hematology and Cell countsOrdered By: Tootie Figueroa on 08-05-2023 Erythrocyte distribution width (RBC) [Entitic vol] 45.4 fL 35.1-43.9 [facility] Erythrocyte distribution width (RBC) [Ratio] 13.8 % 11.6-14.6 [facility] Immature granulocytes/100 WBC (Bld) 0.500 % 0.0-0.9 [facility] Comment on above: IG% - Immature Granu locytes (promyelocytes, myelocytes and metamyelocytes) > 1% indicates that a LEFT SHIFT is Present. MCH (RBC) [Entitic mass] 28.8 pg 27.0-32.0 [facility] Nucleated RBC/100 WBC (Bld) [Ratio] 0 % 0-5 [facility] MCHC Auto (RBC) [Mass/Vol]Or dered By: Tootie Figueroa on 08-05-2023 MCHC (RBC) [Mass/Vol] 31.9 g/dL 32-36 [facility] No Panel InformationOrdered By: Tootie Figueroa on 08-05-2023 Estimated GFR (MDRD) Amer 85 mL/min >60 [facility] Comment on above: GFR Calc Estimated GFR (MDRD) Non-Af Amer 70 mL/min >60 [facility] Comment on above: Non- GFR Calc Thyroid Stimulating Hormone (TSH) 2.09 uIU/mL 0.358-3.74 [facility] Vitamin D 25-Hydroxy 52.9 ng/mL [facility] Comment on above: Vitamin D 25(OH) Sta tus Range Deficiency <20 ng/mL (50nmol/L) Insufficiency 20 - 30 ng/mL (50 - 75 nmol/L) Sufficiency 30 - 100 ng/mL (75 - 250 nmol/L) Toxicity >100 ng/mL (>250 nmol/L) Platelets bldOrdered By: Álvaro Figueroa on 08-05-2023 Platelets (Bld) [#/Vol] 346 10*3/uL 150-450 [facility] Serum or plasma albumin izzy urement (mass/volume)Ordered By: Tootie Figueroa on 08-05-2023 Albumin [Mass/Vol] 4.1 g/dL 3.2-5.0 [facility] Serum or plasma albumin/glob ulin mass ratioOrdered By: Tootie Figueroa on 08-05-2023 Albumin/Globulin [Mass ratio] 1.3 {ratio} 0.9-2.4 [facility] Serum or plasma calcium izzy urement (mass/volume)Ordered By: Tootie Figueroa on 08-05-2023 Calcium [Mass/Vol] 9.2 mg/dL 8.5-10.1 [facility] Serum or plasma cholesterol in HDL measurement (mass/volume)Ordered By: Tootie Figueroa on 08-05-2023 Cholesterol in HDL [Mass/Vol] 99 mg/dL >40 [facility] Comment on above: The drugs N-Acetylcy steine and Metamizole may falsely depress this assay. Reference Range HDL <40 mg/dL Low HDL Cholesterol HDL >or= 60 mg/dL High HDL Cholesterol Serum or plasma cholesterol in VLDL measurement (mass/volume)Ordered By: Tootie Figueroa on 08-05-2023 Cholesterol in VLDL [Mass/Vol] 8 mg/dL 5-40 [facility] Serum or plasma creatinine m easurement (mass/volume)Ordered By: Tootie Figueroa on 08-05-2023 Creatinine [Mass/Vol] 0.88 mg/dL 0.55-1.02 [facility] Comment on above: The validity of the calculated GFR & GFRAA in patients over 70 years has not been determined. Clinical correlation is essential. Serum or plasma low density lipoprotein (LDL) cholesterol measurement (mass/volume)Ordered By: Tootie Figueroa on 08-05-2023 Cholesterol in LDL [Mass/Vol] 104 mg/dL 0-130 [facility] Serum or plasma urea nitroge n measurement (mass/volume)Ordered By: Tootie Figueroa on 08-05-2023 Urea nitrogen [Mass/Vol] 15 mg/dL 7-18 [facility] Thin prep Papanicolaou smear with manual screeningOrdered By: Tootie Figueroa on 08-05-2023 Thin prep Papanicolaou smear with manual screening 15 U/L 15-37 [facility] Thin prep Papanicolaou smear with manual screening 5 5-15 [facility] Whole blood hemoglobin A1c/t otal hemoglobin ratio (mass fraction)Ordered By: Tootie Figueroa on 08-05-2023 HbA1c (Bld) [Mass fraction] 5.3 % 3.8-5.6 [facility] Comment on above: Normal < 5.7 % Predi abetic 5.7 - 6.4 % Diabetic >or= 6.5 % Please note range changes. SPIROMETRY - BASELINE AND PO ST DILATORon 06-10-2023 [id number]% POST (L/S) 3.37 L/S [facility] [id number]% PRE (L/S) 2.53 L/S [facility] FEV1 PRE (L) 2.68 L [facility] FEV1/FVC POST (%) 85 % [facility] (%) 80 % [facility] FEV1_POST (L) 2.81 L [facility] FVC POST (L) 3.30 L [facility] FVC PRE (L) 3.36 L [facility] PEF POST (L/S) 7.88 L/S [facility] PEF PRE (L/S) 7.50 L/S [facility] CBC panel Auto (Bld)on 06-01 Erythrocyte distribution width (RBC) [Ratio] 13.4 % 11.5 - 15.0 % [facility] Hematocrit (Bld) [Volume fraction] 43.5 % 36.0 - 46.0 % [facility] Hemoglobin (Bld) [Mass/Vol] 14.0 g/dL 11.5 - 15.5 g/dL [facility] MCH (RBC) [Entitic mass] 28.9 pg 26. 0 - 34.0 pg [facility] MCHC (RBC) [Mass/Vol] 32.2 g/dL 30.5 - 36.0 g/dL [facility] MCV (RBC) [Entitic vol] 89.7 fL 80.0 - 100.0 fL [facility] Nucleated RBC (Bld) [#/Vol] <0.01 k/ uL [facility] Platelet mean volume (Bld) [Entitic vol] 10.4 fL 9.0 - 12.7 fL [facility] Platelets (Bld) [#/Vol] 395 10*3/uL 150 - 400 k/uL [facility] RBC (Bld) [#/Vol] 4.85 10*6/uL 3.90 - 5.20 m/uL [facility] WBC (Bld) [#/Vol] 10.17 10*3/uL 3.70 - 11.00 k/uL [facility] Comprehensive metabolic 2000 panelon 06-01-2023 Albumin [Mass/Vol] 5.2 g/dL High 3.9 - 4.9 g/dL [facility] ALP [Catalytic activity/Vol] 68 U/L 34 - 123 U/L [facility] ALT [Catalytic activity/Vol] 21 U/L 7 - 38 U/L [facility] Anion gap [Moles/Vol] 12 mmol/L 9 - 18 mmol/L [facility] AST [Catalytic activity/Vol] 16 U/L 13 - 35 U/L [facility] Bilirubin [Mass/Vol] 0.4 mg/dL 0.2 - 1 .3 mg/dL [facility] Calcium [Mass/Vol] 10.5 mg/dL High 8.5 - 10. 2 mg/dL [facility] Chloride [Moles/Vol] 102 mmol/L 97 - 10 5 mmol/L [facility] CO2 [Moles/Vol] 24 mmol/L 22 - 30 mmol/L [facility] Creatinine [Mass/Vol] 0.97 mg/dL High 0.58 - 0.96 mg/dL [facility] Estimated Glomerular Filtration Rate 69 mL/min/1.73m >=60 mL/min/1.7 3m [facility] Glucose [Mass/Vol] 94 mg/dL 74 - 99 mg/dL [facility] Potassium [Moles/Vol] 5.1 mmol/L 3.7 - 5.1 mmol/L [facility] Protein [Mass/Vol] 7.7 g/dL 6.3 - 8.0 g/dL [facility] Sodium [Moles/Vol] 138 mmol/L 136 - 144 mmol/L [facility] Urea nitrogen [Mass/Vol] 21 mg/dL 7 - 21 mg/dL [facility] No Panel Informationon 06-01 [facility] TSH BLDon 06-01-2023 TSH Qn 1.990 m[IU]/L 0.270 - 4.200 mIU/L [facility] Guidance for arthrocentesis of Major jointon 05-26-2023 IMPRESSION: SUCCESSFUL ULTRASOUND GUIDED THERAPEUTIC INJECTION OF THE RIGHT GREATER TROCHANTERIC BURSA, DESCRIBED ABOVE. Attending Radiologist: Dr. Joe Ortega MD Airline Radio Operator: Dr. Sirisha Garcia M.D. The procedure was performed by the the assistant kitchen manager, and the attending radiologist personally supervised the entire procedure. 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[facility] Transcribe Date/Time: May 26 2023 12:58P Dictated by : SIRISHA GARCIA MD This examination was interpreted and the report reviewed and electronically signed by: JOE ORTEGA MD on May 26 2023 1:09PM [facility] DIVISION OF RADIOLOGY * * *Final Report* * * DATE OF EXAM: May 26 2023 10:45AM [facility] 1165 - US ASP/INJ HIP JT/BURSA RT / PROCEDURE REASON: Lateral pain of right hip * * * * Physician Interpretation * * * * MSK_US ULTRASOUND GUIDED RIGHT TROCHANTERIC BURSA THERAPEUTIC INJECTION INDICATION: The patient is a 57 years year old Female who presented with Lateral pain of right hip . CONSENT: The risks, benefits, treatment options, potential complications and personnel to be involved were discussed (including the instruments to be used, contrast and anesthesia administration) with the patient. All questions were answered and consent was obtained. The patient indicated willingness to proceed. GENERAL: a) Pre-procedure Sign-in: Safety Checklist Performed Yes c) Positioning: The patient was placed Left decubitus on the Ultrasound table. d) Ultrasound guidance was used to target the the correct anatomy. The area was then sterilely prepped and draped. Ultrasound images were saved and sent to a permanent archive. e) Time Out: A time out was performed immediately prior to procedure. Procedure Start Time / Timeout Time: 10:47 AM f) Anesthesia Type: Local anesthesia: 3 mL 1% Lidocaine PRE-PROCEDURE IMAGING: Imaging was performed for the purposes of localization. PROCEDURE: a) Procedure Details: A 20g spinal needle was inserted into the bursa using ultrasound guidance after local anesthesia. 3 mL of injectate was administered into the bursa. The needle was removed. Images were stored to the digital archive documenting needle position. b) Injectate Contents: 2 mL 1% Lidocaine 1 mL Triamcinolone Acetonide (Kenalog) 40mg/ml c) Estimated Blood Loss: 0 mL POST PROCEDURE: a) Hemostasis: Hemostasis was achieved using light manual compression. b) Sign-out: Communication Performed N/A c) Procedure End Time: 10:53 AM d) Conclusion: 1. Post-Procedure instructions:Verbal instructions were given. 2. The patient was discharged from the radiology department in stable condition. COMPLICATIONS: a) Significant Patient Complication: None b) Complications during the procedure: None RESULTS: Medication was injected into the bursa DIVISION OF RADIOLOGY Provider, [facility] [place] - 05/26/2023 * * *Final Report* * * DATE OF EXAM: May 26 2023 10:45AM [facility] 1165 - US ASP/INJ HIP JT/BURSA RT / PROCEDURE REASON: Lateral pain of right hip * * * * Physician Interpretation * * * * MSK_US ULTRASOUND GUIDED RIGHT TROCHANTERIC BURSA THERAPEUTIC INJECTION INDICATION: The patient is a 57 years year old Female who presented with Lateral pain of right hip . CONSENT: The risks, benefits, treatment options, potential complications and personnel to be involved were discussed (including the instruments to be used, contrast and anesthesia administration) with the patient. All questions were answered and consent was obtained. The patient indicated willingness to proceed. GENERAL: a) Pre-procedure Sign-in: Safety Checklist Performed Yes c) Positioning: The patient was placed Left decubitus on the Ultrasound table. d) Ultrasound guidance was used to target the the correct anatomy. The area was then sterilely prepped and draped. Ultrasound images were saved and sent to a permanent archive. e) Time Out: A time out was performed immediately prior to procedure. Procedure Start Time / Timeout Time: 10:47 AM f) Anesthesia Type: Local anesthesia: 3 mL 1% Lidocaine PRE-PROCEDURE IMAGING: Imaging was performed for the purposes of localization. PROCEDURE: a) Procedure Details: A 20g spinal needle was inserted into the bursa using ultrasound guidance after local anesthesia. 3 mL of injectate was administered into the bursa. The needle was removed. Images were stored to the digital archive documenting needle position. b) Injectate Contents: 2 mL 1% Lidocaine 1 mL Triamcinolone Acetonide (Kenalog) 40mg/ml c) Estimated Blood Loss: 0 mL POST PROCEDURE: a) Hemostasis: Hemostasis was achieved using light manual compression. b) Sign-out: Communication Performed N/A c) Procedure End Time: 10:53 AM d) Conclusion: 1. Post-Procedure instructions:Verbal instructions were given. 2. The patient was discharged from the radiology department in stable condition. COMPLICATIONS: a) Significant Patient Complication: None b) Complications during the procedure: None RESULTS: Medication was injected into the bursa IMPRESSION IMPRESSION: SUCCESSFUL ULTRASOUND GUIDED THERAPEUTIC INJECTION OF THE RIGHT GREATER TROCHANTERIC BURSA, DESCRIBED ABOVE. Attending Radiologist: Dr. Joe Ortega MD Airline Radio Operator: Dr. Sirisha Garcia M.D. The procedure was performed by the the assistant kitchen manager, and the attending radiologist personally supervised the entire procedure. 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[facility] Transcribe Date/Time: May 26 2023 12:58P Dictated by : SIRISHA GARCIA MD This examination was interpreted and the report reviewed and electronically signed by: JOE ORTEGA MD on May 26 2023 1:09PM [facility] IMPRESSION: SUCCESSFUL ULTRASOUND GUIDED THERAPEUTIC INJECTION OF THE LEFT GREATER TROCHANTERIC BURSA, DESCRIBED ABOVE. Attending Radiologist: Dr. Joe Ortega MD Airline Radio Operator: Dr. Sirisha Garcia The procedure was performed by the the assistant kitchen manager, and the attending radiologist personally supervised the entire procedure. 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[facility] Transcribe Date/Time: May 26 2023 1:01P Dictated by : SIRISHA GARCAI MD This examination was interpreted and the report reviewed and electronically signed by: JOE ORTEGA MD on May 26 2023 1:08PM [facility] DIVISION OF RADIOLOGY * * *Final Report* * * DATE OF EXAM: May 26 2023 11:13AM [facility] 1164 - US ASP/INJ HIP JT/BURSA LT / PROCEDURE REASON: Lateral pain of left hip * * * * Physician Interpretation * * * * MSK_US ULTRASOUND GUIDED LEFT TROCHANTERIC BURSA THERAPEUTIC INJECTION INDICATION: The patient is a 57 years year old Female who presented with Lateral pain of left hip . CONSENT: The risks, benefits, treatment options, potential complications and personnel to be involved were discussed (including the instruments to be used, contrast and anesthesia administration) with the patient. All questions were answered and consent was obtained. The patient indicated willingness to proceed. GENERAL: a) Pre-procedure Sign-in: Safety Checklist Performed Yes c) Positioning: The patient was placed Right decubitus on the Ultrasound table. d) Ultrasound guidance was used to target the the correct anatomy. The area was then sterilely prepped and draped. Ultrasound images were saved and sent to a permanent archive. e) Time Out: A time out was performed immediately prior to procedure start. Procedure Start Time / Timeout Time: 11:05 AM f) Anesthesia Type: Local anesthesia: 3 mL 1% Lidocaine PRE-PROCEDURE IMAGING: Imaging was performed for the purposes of localization. PROCEDURE: a) Procedure Details: A 20g spinal needle was inserted into the bursa using ultrasound guidance after local anesthesia. 3 mL of injectate was administered into the bursa. The needle was removed. Images were stored to the digital archive documenting needle position. b) Injectate Contents: 2 mL 1% lidocaine 1 mL Triamcinolone Acetonide (Kenalog) 40mg/ml c) Estimated Blood Loss: 0 mL POST PROCEDURE: a) Hemostasis: Hemostasis was achieved using light manual compression. b) Sign-out: Communication Performed N/A c) Procedure End Time: 11:08 AM d) Conclusion: 1. Post-Procedure instructions:Verbal instructions were given. 2. The patient was discharged from the radiology department in stable condition. COMPLICATIONS: a) Significant Patient Complication: None b) Complications during the procedure: None RESULTS: Medication was injected into the bursa DIVISION OF RADIOLOGY Provider, [facility] [place] - 05/26/2023 * * *Final Report* * * DATE OF EXAM: May 26 2023 11:13AM [facility] 1164 - US ASP/INJ HIP JT/BURSA LT / PROCEDURE REASON: Lateral pain of left hip * * * * Physician Interpretation * * * * MSK_US ULTRASOUND GUIDED LEFT TROCHANTERIC BURSA THERAPEUTIC INJECTION INDICATION: The patient is a 57 years year old Female who presented with Lateral pain of left hip . CONSENT: The risks, benefits, treatment options, potential complications and personnel to be involved were discussed (including the instruments to be used, contrast and anesthesia administration) with the patient. All questions were answered and consent was obtained. The patient indicated willingness to proceed. GENERAL: a) Pre-procedure Sign-in: Safety Checklist Performed Yes c) Positioning: The patient was placed Right decubitus on the Ultrasound table. d) Ultrasound guidance was used to target the the correct anatomy. The area was then sterilely prepped and draped. Ultrasound images were saved and sent to a permanent archive. e) Time Out: A time out was performed immediately prior to procedure start. Procedure Start Time / Timeout Time: 11:05 AM f) Anesthesia Type: Local anesthesia: 3 mL 1% Lidocaine PRE-PROCEDURE IMAGING: Imaging was performed for the purposes of localization. PROCEDURE: a) Procedure Details: A 20g spinal needle was inserted into the bursa using ultrasound guidance after local anesthesia. 3 mL of injectate was administered into the bursa. The needle was removed. Images were stored to the digital archive documenting needle position. b) Injectate Contents: 2 mL 1% lidocaine 1 mL Triamcinolone Acetonide (Kenalog) 40mg/ml c) Estimated Blood Loss: 0 mL POST PROCEDURE: a) Hemostasis: Hemostasis was achieved using light manual compression. b) Sign-out: Communication Performed N/A c) Procedure End Time: 11:08 AM d) Conclusion: 1. Post-Procedure instructions:Verbal instructions were given. 2. The patient was discharged from the radiology department in stable condition. COMPLICATIONS: a) Significant Patient Complication: None b) Complications during the procedure: None RESULTS: Medication was injected into the bursa IMPRESSION IMPRESSION: SUCCESSFUL ULTRASOUND GUIDED THERAPEUTIC INJECTION OF THE LEFT GREATER TROCHANTERIC BURSA, DESCRIBED ABOVE. Attending Radiologist: Dr. Joe Ortega MD Airline Radio Operator: Dr. Sirisha Garcia The procedure was performed by the the assistant kitchen manager, and the attending radiologist personally supervised the entire procedure. 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 Transcribe Date/Time: May 26 2023 1:01P Dictated by : SIRISHA GARCIA MD This examination was interpreted and the report reviewed and electronically signed by: JOE ORTEGA MD on May 26 2023 1:08PM EST [facility] Radiology Study observation (narrative) [facility] Guidance for arthrocentesis of Major jointOrdered By: Ccf Provider on 05-26-2023 [facility] XR HIP BILATERAL 5V PEL/AP/L AT EACH HIPon 03-04-2023 IMPRESSION: MINIMAL DEGENERATIVE CHANGES. 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[facility] Transcribe Date/Time: Mar 04 2023 4:37P Dictated by : CARLOS BARRERA MD This examination was interpreted and the report reviewed and electronically signed by: CARLOS BARRERA MD on Mar 04 2023 4:38PM [facility] DIVISION OF RADIOLOGY * * *Final Report* * * DATE OF EXAM: Mar 04 2023 2:43PM MOX [id number] - XR HIP CHILANGO 5V PEL+ AP/LAT EA HIP / PROCEDURE REASON: Pain * * * * Physician Interpretation * * * * HISTORY: Pain TECHNOLOGIST PROVIDED HISTORY (if applicable): acute groin pain, no trauma, pain seems to be worse at night when laying down TECHNIQUE: XR HIP CHILANGO 5V PEL+ AP/LAT EA HIP RESULT: Pelvis and both hips 5 views. No fracture or dislocation. No destructive lesion. Sacroiliac joints and symphysis are preserved. Small subchondral cyst in the LEFT pubic body. The hip joint spaces are preserved. DIVISION OF RADIOLOGY Provider, [facility] [place] - 03/04/2023 * * *Final Report* * * DATE OF EXAM: Mar 04 2023 2:43PM [facility] [id number] - XR HIP CHILANGO 5V PEL+ AP/LAT EA HIP / PROCEDURE REASON: Pain * * * * Physician Interpretation * * * * HISTORY: Pain TECHNOLOGIST PROVIDED HISTORY (if applicable): acute groin pain, no trauma, pain seems to be worse at night when laying down TECHNIQUE: XR HIP CHILANGO 5V PEL+ AP/LAT EA HIP RESULT: Pelvis and both hips 5 views. No fracture or dislocation. No destructive lesion. Sacroiliac joints and symphysis are preserved. Small subchondral cyst in the LEFT pubic body. The hip joint spaces are preserved. IMPRESSION IMPRESSION: MINIMAL DEGENERATIVE CHANGES. 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[facility] Transcribe Date/Time: Mar 04 2023 4:37P Dictated by : CARLOS BARRERA MD This examination was interpreted and the report reviewed and electronically signed by: CARLOS BARRERA MD on Mar 04 2023 4:38PM [facility] Radiology Study observation (narrative) [facility] XR HIP BILATERAL 5V PEL/AP/L AT EACH HIPOrdered By: Ccf Provider on 03-04-2023 [facility] Influenza virus A and B RNA and SARS-CoV-2 (COVID-19) N gene panel MARITA+probe (Resp)on 10-07-2022 FLUAV RNA MARITA+probe Ql (Unsp spec) Positive Abnormal Negative for Influenza A by RT-PCR [facility] FLUBV RNA MARITA+probe Ql (Unsp spec) Negative Negative for Influenza B by RT-PCR [facility] SARS-CoV-2 (COVID-19) RNA MARITA+probe Ql (Resp) SARS-CoV-2 (Agent of COVID-19) Not Detected by RT-PCR or equivalent method. Not Detected [facility] XR CHEST 2V FRONTAL/LATon [facility] XR Chest PA and Lateralon IMPRESSION: No acute radiographic abnormality. 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[facility] Transcribe Date/Time: Oct 06 2022 3:08P Dictated by : JIE SARMIENTO MD This examination was interpreted and the report reviewed and electronically signed by: JIE SARMIENTO MD on Oct 06 2022 3:09PM [facility] DIVISION OF RADIOLOGY * * *Final Report* * * DATE OF EXAM: Oct 06 2022 2:58PM WOX [id number] - XR CHEST 2V FRONTAL/LAT / PROCEDURE REASON: multiple diagnoses * * * * Physician Interpretation * * * * EXAMINATION: CHEST RADIOGRAPH (2 VIEW FRONTAL & LATERAL) CLINICAL HISTORY: Acute cough Flu-like symptoms MQ: XC2_6 EXAM DATE/TIME: 10/06/2022 2:58 PM COMPARISON: Chest x-ray on 04/02/2018 RESULT: Lines, tubes, and devices: None. Lungs and pleura: No consolidation. No lung mass. No pleural effusion. No pneumothorax. Cardiomediastinal silhouette: Normal cardiomediastinal silhouette. Bones and soft tissues: Unremarkable. DIVISION OF RADIOLOGY Provider, [facility] [place] - 10/06/2022 * * *Final Report* * * DATE OF EXAM: Oct 06 2022 2:58PM WOX [id number] - XR CHEST 2V FRONTAL/LAT / PROCEDURE REASON: multiple diagnoses * * * * Physician Interpretation * * * * EXAMINATION: CHEST RADIOGRAPH (2 VIEW FRONTAL & LATERAL) CLINICAL HISTORY: Acute cough Flu-like symptoms MQ: XC2_6 EXAM DATE/TIME: 10/06/2022 2:58 PM COMPARISON: Chest x-ray on 04/02/2018 RESULT: Lines, tubes, and devices: None. Lungs and pleura: No consolidation. No lung mass. No pleural effusion. No pneumothorax. Cardiomediastinal silhouette: Normal cardiomediastinal silhouette. Bones and soft tissues: Unremarkable. IMPRESSION IMPRESSION: No acute radiographic abnormality. 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[facility] Transcribe Date/Time: Oct 06 2022 3:08P Dictated by : JIE SARMIENTO MD This examination was interpreted and the report reviewed and electronically signed by: JIE SARMIENTO MD on Oct 06 2022 3:09PM EST [facility] Radiology Study observation (narrative) [facility] XR Chest PA and LateralOrder ed By: [facility] Provider on 10-06-2022 [facility] Clinical Summary: Tracy noam 11-17-2021 75 OP Visit Invalid Interpretation Code [facility] [place] [facility] Work Phone: CURon 09-08-2018 CUR . MICRO - Microbiology PROCEDURE: Urine Culture [...] Locations *1: This test was performed at: [address], [facility] , [facility] ([place]) Comment on above: Performed By: #### C UR #### [place] [address] .Auto Diffon 09-05-2018 Ammonia (P) [Mass/Vol] 0.70 10 3/mcL Normal 0.15-1.00 [facility] ([place]) Comment on above: Performed By: #### C FADIA WILSON ANEU #### [place] [address] #### BMP, GFR #### [address] [address] Basophils (Bld) [#/Vol] 0.10 10 3/mcL Normal 0.00-0.19 [facility] ([place]) Comment on above: Performed By: #### C FADIA WILSON ANEU #### [place] [address] #### BMP, GFR #### [place] [address] Basophils/100 WBC (Bld) 0.5 % Normal 0.0-2.5 A [facility] ([place]) Comment on above: Performed By: #### C FADIA WILSON ANEU #### [place] [address] #### BMP, GFR #### [address] [address] Eosinophils (Bld) [#/Vol] 0.10 10 3/mcL Normal 0.00-0. 40 [facility] ([place] Comment on above: Performed By: #### C BC, ADIFF, ANEU #### [address] [address] #### BMP, GFR #### [address] [address] Eosinophils/100 WBC (Bld) 1.4 % Normal 0.0-7.0 [facility] ([place]) Comment on above: Performed By: #### C BC, ADIFF, ANEU #### [address] [address] #### BMP, GFR #### [address] [address] Lymphocytes (Bld) [#/Vol] 4.10 10 3/mcL High 0.77-3. 85 [facility] ([place]) Comment on above: Performed By: #### C BC, ADIFF, ANEU #### [address] [address] #### BMP, GFR #### [address] [address] Lymphocytes/100 WBC (Bld) 39.6 % Normal 10.0-50.0 [facility] ([place]) Comment on above: Performed By: #### C BC, ADIFF, ANEU #### [place] [id number] #### BMP, GFR #### [address] [address] Monocytes/100 WBC (Bld) 6.9 % Normal 1.7-13.0 A [facility] ([place]) Comment on above: Performed By: #### C BC, ADIFF, ANEU #### [address] [address] #### BMP, GFR #### [address] [address] Neutrophils/100 WBC (Bld) 51.6 % Normal 37.0-80.0 [facility] ([place]) Comment on above: Performed By: #### C BC, ADIFF, ANEU #### [address] [address] #### BMP, GFR #### [address] [address] .GFRon 09-05-2018 GFR Non- 105 ml/min/1.73sqm Normal [facility] ([place]) Comment on above: Result Comment: GFR Population mean for , [...] 15 mL/min/1.73 square meters Performed By: #### C FADIA WILSON, ANEU #### [place] [address] [address] #### BMP, GFR #### [address] [address] GFR 127 ml/min/1.73sqm Normal [facility] ([place]) Comment on above: Result Comment: GFR Population mean for , [...] 15 mL/min/1.73 square meters Performed By: #### C BCFADIA, ANEU #### [address] [address] #### BMP, GFR #### [place] [address] .NEUABSon 09-05-2018 Neutrophils (Bld) [#/Vol] 5.30 10 3/mcL Normal 2.85-6. 16 [facility] ([place] Comment on above: Performed By: #### C FADIA WILSON ANEU #### [address] [address] #### BMP, GFR #### [place] [address] .Urinalysis Microscopic (AO) on 09-05-2018 RBC (U) [#/Vol] None Seen Normal None Seen [facility] ([place] Comment on above: Performed By: #### U A, UAMICAO #### [address] [address] UA Squam Epithelial 0-5 None Seen [facility] ([place]) Comment on above: Performed By: #### U A, UAMICAO #### [address] [address] UA WBC None Seen Normal None Seen [facility] ([place] Comment on above: Performed By: #### U A, UAMICAO #### [place] [id number] BMPon 09-05-2018 Calcium [Mass/Vol] 9.4 mg/dL Normal 8.4-10.2 [facility] ([place]) Comment on above: Performed By: #### C FADIA WILSON ANEU #### [place] [address] #### BMP, GFR #### [place] [address] Chloride [Moles/Vol] 100 mmol/L Normal 98-107 [facility] ([place]) Comment on above: Performed By: #### C FADIA WILSON, ANEU #### [place] [address] #### BMP, GFR #### [place] [address] CO2 [Moles/Vol] 30 mmol/L High 22-29 [facility] ([place] Comment on above: Performed By: #### C BC, ADIFF, ANEU #### [address] [address] #### BMP, GFR #### [address] [address] Creatinine [Mass/Vol] 0.60 mg/dL Normal 0.55-1.02 [facility] ([place]) Comment on above: Performed By: #### C BC, ADIFF, ANEU #### [address] [address] #### BMP, GFR #### [address] [address] Electrolyte Balance 9.0 mEq/L Normal [facility] ([place]) Comment on above: Performed By: #### C BC, ADIFF, ANEU #### [place] [address] #### BMP, GFR #### [address] [address] Glucose [Mass/Vol] 90 mg/dL Normal 70-105 [facility] ([place]) Comment on above: Performed By: #### C BC, ADIFF, ANEU #### [address] [address] #### BMP, GFR #### [address] [address] Potassium [Moles/Vol] 5.2 mmol/L High 3.5-5.1 [facility] ([place]) Comment on above: Performed By: #### C BC, ADIFF, ANEU #### [address] [address] #### BMP, GFR #### [address] [address] Sodium [Moles/Vol] 139 mmol/L Normal 136-145 [facility] ([place]) Comment on above: Performed By: #### C BC, ADIFF, ANEU #### [place] [address] #### BMP, GFR #### [address] [address] Urea nitrogen [Mass/Vol] 13 mg/dL Normal 7-18 [facility] ([place] Comment on above: Performed By: #### C BC, ADIFF, ANEU #### [address] [address] #### BMP, GFR #### [address] [address] Urea nitrogen/Creatinine [Mass ratio] 22 ratio Normal 7-27 [facility] ([place] Comment on above: Performed By: #### C BC, ADIFF, ANEU #### [address] [address] #### BMP, GFR #### [address] [address] CBCon 09-05-2018 Erythrocyte distribution width (RBC) [Ratio] 13.2 % Normal 11.5-14.5 [facility] ([place] Comment on above: Performed By: #### C BC, ADIFF, ANEU #### [address] [address] #### BMP, GFR #### [address] [address] Hematocrit (Bld) [Volume fraction] 39.7 % Normal 37.0-47.0 [facility] ([place] Comment on above: Performed By: #### C BC, ADIFF, ANEU #### [address] [address] #### BMP, GFR #### [address] [address] Hemoglobin (Bld) [Mass/Vol] 13.0 G/dL Normal 12.0-16. 0 [facility] ([place] Comment on above: Performed By: #### C BC, ADIFF, ANEU #### [address] [address] #### BMP, GFR #### [address] [address] MCH (RBC) [Entitic mass] 28.3 pg Normal 27.0-31.2 [facility] ([place] Comment on above: Performed By: #### C BC, ADIFF, ANEU #### [address] [address] #### BMP, GFR #### [address] [address] MCHC (RBC) [Mass/Vol] 32.8 G/dL Low 33.0-37.0 [facility] ([place]) Comment on above: Performed By: #### C BC ADIFF, ANEU #### [address] [address] #### BMP, GFR #### [address] [address] MCV (RBC) [Entitic vol] 86.2 fL Normal 80.0-94.0 A [facility] ([place]) Comment on above: Performed By: #### FADIA REA, ANEU #### [place] [address] #### BMP, GFR #### [address] [address] Platelet mean volume (Bld) [Entitic vol] 8.5 fL Normal 7.4-10.4 Critical [facility] ([place] Comment on above: Performed By: #### C STEVE, BIANCAIFF, ANEU #### [place] [address] #### BMP, GFR #### [address] [address] Platelets (Bld) [#/Vol] 373 10 3/mcL Normal 130-400 [facility] ([place]) Comment on above: Performed By: #### C BC, ADIFF, ANEU #### [place] [address] #### BMP, GFR #### [address] [address] RBC (Bld) [#/Vol] 4.61 10 6/mcL Normal 4.20-5.40 [facility] ([place]) Comment on above: Performed By: #### C BC, ADIFF, ANEU #### [address] [address] #### BMP, GFR #### [address] [address] WBC (Bld) [#/Vol] 10.30 10 3/mcL Normal 4.60-10.80 [facility] ([place]) Comment on above: Performed By: #### C BC, ADIFF, ANEU #### [address] [address] #### BMP, GFR #### [address] [address] UAon 09-05-2018 Color (U) Yellow Normal [facility] ([place]) Comment on above: Performed By: #### U A, UAMICAO #### [address] [address] Glucose (U) [Mass/Vol] Negative Normal Negative [facility] ([place]) Comment on above: Performed By: #### U A, UAMICAO #### [address] [address] Ketones Ql (U) Negative Normal Negative [facility] ([place] Comment on above: Performed By: #### U A, UAMICAO #### [address] [address] UA Appear Clear Normal Clear [facility] ([place] Comment on above: Performed By: #### U A, UAMICAO #### [address] [address] UA Blood Negative Normal Negative [facility] ([place] Comment on above: Performed By: #### U A, UAMICAO #### [address] [address] UA Leuk Est Negative Normal Negative [facility] ([place]) Comment on above: Performed By: #### U A, UAMICAO #### [address] [address] UA Nitrite Negative Normal Negative [facility] ([place]) Comment on above: Performed By: #### U A, UAMICAO #### [place] [address] UA pH 7.0 Normal [facility] ([place]) Comment on above: Performed By: #### U A, UAMICAO #### [place] [address] UA Protein Negative Normal Negative [facility] ([place] Comment on above: Performed By: #### U A, UAMICAO #### [place] [address] UA Spec Grav <=1.005 [facility] ([place]) Comment on above: Performed By: #### U A, UAMICAO #### [place] [address] UA Specimen Type Clean Catch Normal [facility] ([place]) Comment on above: Performed By: #### U A, UAMICAO #### [place] [address] UA Urobilinogen 0.2 E.U./dL Normal [facility] ([place]) Comment on above: Performed By: #### U A, UAMICAO #### [place] [address] Urobilinogen Qn (U) Negative Normal Negative [facility] ([place]) Comment on above: Performed By: #### U A, UAMICAO #### [place] [address] CTA CHEST (GATED) WO/W IV CO Non 04-03-2018 CTA CHEST (GATED) WO/W IV CON Performed at [facility] APPROVED BY: PORSHA KAY MD CTA of the chest, abdomen, and pelvis History: 52-year-old female with chest pain, nausea. Recent history of cardiac ablation. with concern for acute aortic pathology. Comparison: None Technique: Noncontrast CT chest performed followed by CTA chest abdomen pelvis with IV contrast [address] Dose-Length Product (DLP): 2059 mGycmCT Dose Reduction Employed: mAs-kVp manually adjusted based [...] ascites. Pelvis: No adenopathy or fluid collection. IMPRESSION:No evidence of acute aortic pathology. Normal caliber thoracoabdominal aorta. 5 mm enhancing focus within the liver, likely benign in the absence of known malignancy with considerations to hemangioma, adenoma, FNH, or small shunt. If clinically indicated, further characterization with MRI may be considered. Inc idental Finding: No follow-up imaging is recommended for any of the following incidentally detected lesions: liver lesions less than or equal to 0.5 cm, cystic kidney lesions less than 1.0 cm, or adrenal lesions less than or equal to 1.0 cm, in this adult patient (18 years or older). ACR Whitepaper: Managing Incidental Findings on Abdominal CT. JACR 2010; 7:[address] [facility] Basic Panelon 04-02-2018 Creatinine mass conc 0.92 mg/dL Normal 0.51-0.95 [facility] Comment on above: Performed By: #### P 8 ####[facility] [place], [place] [address] Anion gap 3 molar conc 11 mmol/L Normal 8-16 [facility] Comment on above: Performed By: #### P 8 ####[facility] [place], [place] [address] CO2 molar conc 28 mmol/L Normal 21-32 [facility] Comment on above: Performed By: #### P 8 ####[facility] [place], [place] [address] Glucose mass conc 116 mg/dL High 70-99 [facility] Comment on above: Performed By: #### P 8 ####[facility] [place], [place] [address] Urea nitrogen mass conc 11 mg/dL Normal 7-18 [facility] Comment on above: Performed By: #### P 8 ####[facility] [place], [place] [address] Calcium mass conc 8.9 mg/dL Normal 8.5-10.1 [facility] Comment on above: Performed By: #### P 8 ####[facility] [place], [place] [address] Chloride molar conc 107 mmol/L Normal 98-[address] [facility] Comment on above: Performed By: #### P 8 ####[facility] [place], [place] [address] Potassium molar conc 4.2 mmol/L Normal 3.5-5.1 [facility] Comment on above: Performed By: #### P 8 ####[facility] [place], [place] [address] Sodium molar conc 142 mmol/L Normal 136-145 [facility] Comment on above: Performed By: #### P 8 ####[facility] [place], [place] [address] CHEST 2 VIEWSon 04-02-2018 Protein mass conc Performed at [facility] APPROVED BY: Baljeet Lamb MD EXAMINATION: CHEST RADIOGRAPH (2 VIEW FRONTAL & LATERAL) Clinical History: Patient presented with chest pain.MQ: [id number]: None RESULT: Lines, tubes, and devices: None. [...] Nonemergent chest CT recommended for further assessment. Normal [facility] ECU Troponin Ion 04-02-2018 Troponin I.cardiac mass conc 0.331 ng/mL High 0.015-0.[address] [facility] Comment on above: Performed By: #### P 8 ####[place] [address] Troponin I.cardiac mass conc 0.360 ng/mL High 0.015-0.[address] [facility] Comment on above: Performed By: #### E RTRP ####[place] [address] Hemogram/Diffon 04-02-2018 Abs Immature Grans 0.06 thou/cmm High 0.00-0.05 [facility] Comment on above: Result Comment: Smea r scanned; tech agrees with automated differential Performed By: #### C BCD1 ####[place] [address] Abs. Baso 0.04 thou/cmm Normal 0.01-0.08 [facility] Comment on above: Performed By: #### C BCD1 ####[place] [address] Abs. [place] 0.75 thou/cmm High 0.27-0.70 [facility] Comment on above: Performed By: #### C BCD1 ####[place] [address] Abs. Neut (ANC) 6.35 thou/cmm High 1.56-6.[address] [facility] Comment on above: Performed By: #### C BCD1 ####[facility] [place], [place] [address] Basophils/100 WBC Auto (Bld) 0.4 % Normal [facility] Comment on above: Performed By: #### C BCD1 ####[address] [address] Eosinophils Auto #/vol (Bld) 0.08 thou/cmm Normal 0.00-0.[address] [facility] Comment on above: Performed By: #### C BCD1 ####[address] [address] Eosinophils/100 WBC Auto (Bld) 0.7 % Normal [facility] Comment on above: Performed By: #### C BCD1 ####[address] [address] Immature Grans 0.60 % Normal [facility] Comment on above: Performed By: #### C BCD1 ####[address] [address] Lymphocytes Auto #/vol (Bld) 3.52 thou/cmm Normal 1.18-3.[address] [facility] Comment on above: Performed By: #### C BCD1 ####[address] [address] Lymphocytes/100 WBC Auto (Bld) 32.6 % Normal [facility] Comment on above: Performed By: #### C BCD1 ####[address] [address] Monocytes/100 WBC Auto (Bld) 6.9 % Normal [facility] Comment on above: Performed By: #### C BCD1 ####[address] [address] Seg Neutrophil 58.8 % Normal [facility] Comment on above: Performed By: #### C BCD1 ####[address] [address] Erythrocyte distribution width Auto Ratio (RBC) 13.8 % Normal 11.7-14.4 [facility] Comment on above: Performed By: #### C BCD1 ####[place] [address] Hematocrit Auto Volume Fraction (Bld) 37.1 % Normal 34.1-44.[address] [facility] Comment on above: Performed By: #### C BCD1 ####[place] [address] Hemoglobin mass conc (Bld) 12.3 g/dL Normal 11.2-15.[address] [facility] Comment on above: Performed By: #### C BCD1 ####[place] [address] MCH Auto Entitic mass (RBC) 29.3 pg Normal 25.6-32. [address] [facility] Comment on above: Performed By: #### C BCD1 ####[place] [address] MCHC Auto mass conc (RBC) 33.2 % Normal 31.6-34.[address] [facility] Comment on above: Performed By: #### C BCD1 ####[place] [address] MCV Auto Entitic volume (RBC) 88.3 fL Normal 79.4-94.[address] [facility] Comment on above: Performed By: #### C BCD1 ####[place] [address] Platelet mean volume Auto Entitic volume (Bld) 10.2 fL Normal 9.4-12.3 [facility] Comment on above: Performed By: #### C BCD1 ####[place] [address] Platelets Auto #/vol (Bld) 296 thou/cmm Normal 182-[address] [facility] Comment on above: Performed By: #### C BCD1 ####[place] [address] RBC Auto #/vol (Bld) 4.20 mil/cmm Normal 3.93-5.22 [facility] Comment on above: Performed By: #### C BCD1 ####[facility] [place] [address] RDW SD 44.7 fl Normal 36.4-46.[address] [facility] Comment on above: Performed By: #### C BCD1 ####[place] [address] WBC Auto #/vol (Bld) 10.80 thou/cmm High 3.98-10.[address] [facility] Comment on above: Performed By: #### C BCD1 ####[place] [address] MDRD GFRon 04-02-2018 GFR/1.73 sq M predicted among non-blacks MDRD vol rate/area (S/P/Bld) mL/min/{1.73_m2} Normal >60mL/min/ 1.73m2 [facility] Comment on above: Result Comment: If t he patient is , multiply the result by 1.210. Performed By: #### G FR ####[place] [address] Basic Panelon 03-29-2018 Creatinine mass conc 1.03 mg/dL High 0.51-0.95 [facility] Comment on above: Performed By: #### P 8 ####[place] [address] Anion gap 3 molar conc 11 mmol/L Normal 8-16 [facility] Comment on above: Performed By: #### P 8 ####[place] [address] CO2 molar conc 25 mmol/L Normal 21-32 [facility] Comment on above: Performed By: #### P 8 ####[place] [address] Urea nitrogen mass conc 12 mg/dL Normal 7-18 [facility] Comment on above: Performed By: #### P 8 ####[place] [address] Calcium mass conc 8.7 mg/dL Normal 8.5-10.1 [facility] Comment on above: Performed By: #### P 8 ####[facility] [place], [place] [address] Glucose mass conc 97 mg/dL Normal 70-99 [facility] Comment on above: Performed By: #### P 8 ####[facility] [place] [address] Chloride molar conc 110 mmol/L High 98-[address] [facility] Comment on above: Performed By: #### P 8 ####[facility] [place] [address] Potassium molar conc 4.0 mmol/L Normal 3.5-5.1 [facility] Comment on above: Performed By: #### P 8 ####[place] [address] Sodium molar conc 142 mmol/L Normal 136-145 [facility] Comment on above: Performed By: #### P 8 ####[place] [address] Hemogramon 03-29-2018 Erythrocyte distribution width Auto Ratio (RBC) 14.4 % Normal 11.7-14.4 [facility] Comment on above: Performed By: #### C BC1 ####[place] [address] Hematocrit Auto Volume Fraction (Bld) 36.5 % Normal 34.1-44.[address] [facility] Comment on above: Performed By: #### C BC1 ####[place] [address] Hemoglobin mass conc (Bld) 11.9 g/dL Normal 11.2-15.[address] [facility] Comment on above: Performed By: #### C BC1 ####[place] [address] MCH Auto Entitic mass (RBC) 29.2 pg Normal 25.6-32. [address] [facility] Comment on above: Performed By: #### C BC1 ####[place] [address] MCHC Auto mass conc (RBC) 32.6 % Normal 31.6-34.[address] [facility] Comment on above: Performed By: #### C BC1 ####[address] [address] MCV Auto Entitic volume (RBC) 89.7 fL Normal 79.4-94.[address] [facility] Comment on above: Performed By: #### C BC1 ####[facility] [place], [place] [address] Platelet mean volume Auto Entitic volume (Bld) 10.2 fL Normal 9.4-12.3 [facility] Comment on above: Performed By: #### C BC1 ####[address] [address] Platelets Auto #/vol (Bld) 266 thou/cmm Normal 182-[address] [facility] Comment on above: Performed By: #### C BC1 ####[address] [address] RBC Auto #/vol (Bld) 4.07 mil/cmm Normal 3.93-5.22 [facility] Comment on above: Performed By: #### C BC1 ####[place] [address] RDW SD 47.4 fl High 36.4-46.[address] [facility] Comment on above: Performed By: #### C BC1 ####[address] [address] WBC Auto #/vol (Bld) 11.56 thou/cmm High 3.98-10.[address] [facility] Comment on above: Performed By: #### C BC1 ####[place] [address] MDRD GFRon 03-29-2018 GFR/1.73 sq M predicted among non-blacks MDRD vol rate/area (S/P/Bld) 56.32 mL/min/{1.73_m2} Normal >60mL/min/ 1.73m2 [facility] Comment on above: Result Comment: If t he patient is , multiply the result by 1.210. Performed By: #### G FR ####[address] [place] [address] Basic Panelon 03-28-2018 Creatinine mass conc 0.91 mg/dL Normal 0.51-0.95 [facility] Comment on above: Performed By: #### P 8 ####[facility] [place], [place] [address] Anion gap 3 molar conc 8 mmol/L Normal 8-16 [facility] Comment on above: Performed By: #### P 8 ####[facility] [place], [place] [address] CO2 molar conc 27 mmol/L Normal 21-32 [facility] Comment on above: Performed By: #### P 8 ####[facility] [place], [place] [address] Glucose mass conc 95 mg/dL Normal 70-99 [facility] Comment on above: Performed By: #### P 8 ####[address] [address] Urea nitrogen mass conc 14 mg/dL Normal 7-18 [facility] Comment on above: Performed By: #### P 8 ####[address] [address] Calcium mass conc 9.0 mg/dL Normal 8.5-10.1 [facility] Comment on above: Performed By: #### P 8 ####[address] [address] Chloride molar conc 109 mmol/L High 98-[address] [facility] Comment on above: Performed By: #### P 8 ####[facility] [place], [place] [address] Potassium molar conc 3.7 mmol/L Normal 3.5-5.1 [facility] Comment on above: Performed By: #### P 8 ####[address] [address] Sodium molar conc 140 mmol/L Normal 136-145 [facility] Comment on above: Performed By: #### P 8 ####[place] [id number] Hemogramon 03-28-2018 Erythrocyte distribution width Auto Ratio (RBC) 13.9 % Normal 11.7-14.4 [facility] Comment on above: Performed By: #### C BC1 ####[place] [address] Hematocrit Auto Volume Fraction (Bld) 38.8 % Normal 34.1-44.[address] [facility] Comment on above: Performed By: #### C BC1 ####[place] [address] Hemoglobin mass conc (Bld) 12.8 g/dL Normal 11.2-15.[address] [facility] Comment on above: Performed By: #### C BC1 ####[place] [address] MCH Auto Entitic mass (RBC) 29.5 pg Normal 25.6-32. [address] [facility] Comment on above: Performed By: #### C BC1 ####[place] [address] MCHC Auto mass conc (RBC) 33.0 % Normal 31.6-34.[address] [facility] Comment on above: Performed By: #### C BC1 ####[place] [address] MCV Auto Entitic volume (RBC) 89.4 fL Normal 79.4-94.[address] [facility] Comment on above: Performed By: #### C BC1 ####[place] [address] Platelet mean volume Auto Entitic volume (Bld) 10.3 fL Normal 9.4-12.3 [facility] Comment on above: Performed By: #### C BC1 ####[place] [address] Platelets Auto #/vol (Bld) 310 thou/cmm Normal 182-[address] [facility] Comment on above: Performed By: #### C BC1 ####[place] [address] RBC Auto #/vol (Bld) 4.34 mil/cmm Normal 3.93-5.22 [facility] Comment on above: Performed By: #### C BC1 ####[facility] [place], [place] [address] RDW SD 45.5 fl Normal 36.4-46.[address] [facility] Comment on above: Performed By: #### C BC1 ####[facility] [place], [place] [address] WBC Auto #/vol (Bld) 7.75 thou/cmm Normal 3.98-10.04 [facility] Comment on above: Performed By: #### C BC1 ####[facility] [place], [place] [address] Office Visiton 07-20-2017 Documentation of current medications (procedure) Done Invalid Interpretation Code [facility] Work Phone: Tobacco smoking status RUST Never Inva lid Interpretation Code [facility] Work Phone: Tobacco use CPHS Never smoker Invalid Interpretation Code [facility] Work Phone: Office Visit: post op, sherry peres 07-15-2017 Documentation of current medications (procedure) Done Invalid Interpretation Code [facility] Work Phone: Fall risk assessment No Invalid Interpretation Code [facility] Hemoglobin.gastrointestinal Ql (St) not done Invalid Interpretation Code [facility] Protein mass conc Done Invalid Interpretation Code [facility] Tobacco smoking status NDIS Never Inva lid Interpretation Code [facility] Tobacco smoking status NDIS Never smoker Inva lid Interpretation Code [facility] Tobacco use CPHS Never smoker Invalid Interpretation Code [facility] Work Phone: Replaced Document: Basic Met abolic Profile (BMP)on 06-27-2017 Anion gap 10 mmol/L Invalid Interpretation Code 02-14 [facility] Anion gap 4 molar conc 10 Invalid Interpretation Code 02-14 [facility] BUN/Creatinine Ratio 19.5 RATIO Invalid Interpretation Code 07-22 [facility] Calcium 8.9 mg/dL Invalid Interpretation Code 8.5-10.1 [facility] Chloride 103 mmol/L Invalid Interpretation Code 98-107 [facility] CO2 26.0 mmol/L Invalid Interpretation Code 21.0-32.0 [facility] CO2 ppres (BldV) 26.0 mmol/L Invalid Interpretation Code 21.0-32.0 [facility] Creatinine 0.87 mg/dL Invalid Interpretation Code 0.55-1.02 [facility] eGFR (non-black) 73 mL/min/{1.73_m2} Invalid Interpretation Code >60 [facility] eGFR (non-black) 88 mL/min/{1.73_m2} Invalid Interpretation Code >60 [facility] EST GFR - AA 88 mL/min Invalid Interpretation Code >60 [facility] Glucose 103 mg/dL Invalid Interpretation Code 70-110 [facility] Glucose mass conc 103 mg/dL Invalid Interpretation Code 70-110 [facility] Potassium 3.9 mmol/L Invalid Interpretation Code 3.5-5.1 [facility] Sodium 139 mmol/L Invalid Interpretation Code 136-145 [facility] Urea nitrogen 17 mg/dL Invalid Interpretation Code 7-18 [facility] Replaced Document: CBC-Compl ete Blood Cnt No Diffon 06-27-2017 Erythrocyte distribution width Auto Ratio (RBC) 44.6 fL High 35.1-43.9 [facility] Erythrocytes (RBC) 4.00 10*6/uL Low 4.2-5.4 [facility] Hematocrit (HCT) 35.7 % Low 37-47 [facility] Hemoglobin (HGB) 11.5 g/dL Low 12.0-15.0 [facility] MCH 28.8 pg Invalid Interpretation Code 27.0-32.0 [facility] MCHC 32.2 G/GL Invalid Interpretation Code 32-36 [facility] MCV 89.3 fL Invalid Interpretation Code 81-99 [facility] Platelets 324 10*3/mm3 Invalid Interpretation Code 150-450 [facility] PMV by Aileen 10.4 fL Invalid Interpretation Code 6.2-12.0 [facility] RDW SD 44.6 fL High 35.1-43.9 [facility] Work Phone: [phone] RDW-CA 13.6 % Invalid Interpretation Code 11.6-14.6 [facility] red blood cell distribution width, size density 44.6 fL High 35.1-43.9 [facility] WBC (Leukocytes) 10.4 10*3/uL Invalid Interpretation Code 4.4-11.0 [facility] Office Visit: ovary painon 0 06-03-2017 Documentation of current medications (procedure) Done Invalid Interpretation Code [facility] Fall risk assessment No Invalid Interpretation Code [facility] Tobacco smoking status NHIS Never Inva lid Interpretation Code [facility] Tobacco use CPHS Never smoker Invalid Interpretation Code [facility] Office Visit: post op, arm p ainon 10-03-2016 MG Breast screening Normal Bilateral Invalid Interpretation Code [facility] ECG B/O W INTERP (MED OFFICE ) [facility] Vital Signs Date Time Vital Sign Value Performing Clinician Facility 07-24-2025 11:57-0400 Body height 157.[address] Dasia Auguste DO Work Phone: [facility] 06-07-2025 08:20-0400 Body temperature 97.5 [degF] Dr. Dasia Auguste DO Work Phone: [facility] 06-07-2025 08:20-0400 Diastolic blood pressure 83 mm[Hg] Dr. Dasia Auguste DO Work Phone: [facility] 06-07-2025 08:20-0400 Heart rate 66 /min Dr. Dasia Auguste DO Work Phone: [facility] 06-07-2025 08:20-0400 SaO2% (BldA) [Mass fraction] 97 % Dr. Dasia Auguste DO Work Phone: [facility] 06-07-2025 08:20-0400 Systolic blood pressure 127 mm[Hg] Dr. Dasia Auguste DO Work Phone: [facility] 05-03-2025 10:45-0400 Body height 157.5 cm Deven Logan MD Work Phone: [facility] 05-03-2025 10:45-0400 Body mass index (BMI) [Ratio] 24.35 kg/m2 Deven Logan MD Work Phone: [facility] 05-03-2025 10:45-0400 Body temperature 96.8 [degF] Deven Logan MD Work Phone: [facility] 05-03-2025 10:45-0400 Body weight 60.4 kg Deven Logan MD Work Phone: [facility] 05-03-2025 10:45-0400 Diastolic blood pressure 87 mm[Hg] Deven Logan MD Work Phone: [facility] 05-03-2025 10:45-0400 Heart rate 83 /min Deven Logan MD Work Phone: [facility] 05-03-2025 10:45-0400 Respiratory rate 17 /min Deven Logan MD Work Phone: [facility] 05-03-2025 10:45-0400 SaO2% (BldA) [Mass fraction] 100 % Deven Logan MD Work Phone: [facility] 05-03-2025 10:45-0400 Systolic blood pressure 134 mm[Hg] Deven Logan MD Work Phone: [facility] 04-18-2025 10:26-0400 Body height 157.5 cm Sharron Hollis APRN.[employer] MICROS[employer]IST Work Phone: [facility] 04-18-2025 10:26-0400 Body mass index (BMI) [Ratio] 24.69 kg/m2 Sharron Hollis APRN.[employer] MICROSCOPIST Work Phone: [facility] 04-18-2025 10:26-0400 Body weight 61.24 kg Sharron Hollis APRN.[employer] MICROSCOPIST Work Phone: [facility] 04-18-2025 10:26-0400 Diastolic blood pressure 85 mm[Hg] Sharron Namaxwellovski KNUCKLE STRAP SEWER.[employer] MICROSCOPIST Work Phone: [facility] 04-18-2025 10:26-0400 Heart rate 75 /min Sharron Namaxwellovski KNUCKLE STRAP SEWER.[employer] MICROSCOPIST Work Phone: [facility] 04-18-2025 10:26-0400 Systolic blood pressure 145 mm[Hg] Sharron Namaxwellovski KNUCKLE STRAP SEWER.[employer] MICROSCOPIST Work Phone: [facility] 03-06-2025 14:23-0400 Body height 157.[address] Dasia Auguste DO Work Phone: [facility] 01-16-2025 11:15-0400 Body height 157.5 cm Sharron Naegrardoi [employer]NUCKLE [employer] SEWER.[employer] MICROSCOPIST Work Phone: [facility] 01-16-2025 11:15-0400 Body mass index (BMI) [Ratio] 26.89 kg/m2 Sharron Namaxwellovski KNUCKLE STRAP SEWER.[employer] MICROSCOPIST Work Phone: [facility] 01-16-2025 11:15-0400 Body weight 66.68 kg Sharron Namaxwellovski KNUCKLE [employer] SEWER.[employer] MICROSCOPIST Work Phone: [facility] 01-16-2025 11:15-0400 Diastolic blood pressure 85 mm[Hg] Sharron Namaxwellovski KNUCKLE [employer]AP SEWER.[employer] MICROSCOPIST Work Phone: [facility] 01-16-2025 11:15-0400 Heart rate 68 /min Sharron Namaxwellovski KNUCKLE [employer] SEWER.[employer] MICROSCOPIST Work Phone: [facility] 01-16-2025 11:15-0400 Systolic blood pressure 125 mm[Hg] Sharron Najdovski KNUCKLE [employer] SEWER.[employer] MICROSCOPIST Work Phone: [facility] 10-30-2024 10:33-0500 Body height 157.5 cm Deven Logan MD Work Phone: [facility] 10-30-2024 10:33-0500 Body mass index (BMI) [Ratio] 27.07 kg/m2 Deven Logan MD Work Phone: [facility] 10-30-2024 10:33-0500 Body temperature 97.39 [degF] Deven Logan MD Work Phone: [facility] 10-30-2024 10:33-0500 Body weight 67.13 kg Deven Logan MD Work Phone: [facility] 10-30-2024 10:33-0500 Diastolic blood pressure 89 mm[Hg] Deven Logan MD Work Phone: [facility] 10-30-2024 10:33-0500 Heart rate 78 /min Deven Logan MD Work Phone: [facility] 10-30-2024 10:33-0500 Respiratory rate 16 /min Deven Logan MD Work Phone: [facility] 10-30-2024 10:33-0500 SaO2% (BldA) [Mass fraction] 97 % Deven Logan MD Work Phone: [facility] 10-30-2024 10:33-0500 Systolic blood pressure 130 mm[Hg] Deven Logan MD Work Phone: [facility] 10-23-2024 14:43-0500 Body height 157.5 cm Sharron Hollis APRN.[employer] MICROSCOPIST Work Phone: [facility] 10-23-2024 14:43-0500 Body mass index (BMI) [Ratio] 27.22 kg/m2 Sharron Hollis APRN.[employer] MICROSCOPIST Work Phone: [facility] 10-23-2024 14:43-0500 Body weight 67.5 kg Sharron Hollis APRN.[employer]BE[employer] MICROSCOPIST Work Phone: [facility] 10-23-2024 14:43-0500 Diastolic blood pressure 83 mm[Hg] Sharron Hollis APRN.[employer]BE[employer] MICROSCOPIST Work Phone: [facility] 10-23-2024 14:43-0500 Heart rate 79 /min Sharron Hollis KNUCKLE [employer] SEWER.[employer] MICROSCOPIST Work Phone: [facility] 10-23-2024 14:43-0500 SaO2% (BldA) [Mass fraction] 98 % Sharron Hollis KNUCKLE [employer]AP SEWER.[employer] MICROSCOPIST Work Phone: [facility] 10-23-2024 14:43-0500 Systolic blood pressure 122 mm[Hg] Sharron Hollis KNUCKLE STRAP SEWER.[employer]BE[employer]OS MICROSCOPIST Work Phone: [facility] 07-26-2024 13:03-0400 Body height 157.5 cm James Nancy DO Work Phone: [facility] 07-26-2024 13:03-0400 Body mass index (BMI) [Ratio] 26.29 kg/m2 James Nancy DO Work Phone: [facility] 07-26-2024 13:03-0400 Body weight 65.2 kg James Nancy DO Work Phone: [facility] 07-26-2024 13:03-0400 Diastolic blood pressure 80 mm[Hg] James Nancy DO Work Phone: [facility] 07-26-2024 13:03-0400 Heart rate 75 /min James Nancy DO Work Phone: [facility] 07-26-2024 13:03-0400 SaO2% (BldA) [Mass fraction] 100 % James Nancy DO Work Phone: [facility] 07-26-2024 13:03-0400 Systolic blood pressure 130 mm[Hg] James Nancy DO Work Phone: [facility] 07-19-2024 11:07-0400 Body height 157.5 cm Sharron Hollis KNUCKLE STRAP SEWER.[employer]BE[employer] MICROSCOPIST Work Phone: [facility] 07-19-2024 11:07-0400 Body mass index (BMI) [Ratio] 25.97 kg/m2 Sharron Hollis KNUCKLE [employer]AP SEWER.[employer]BE[employer] MICROSCOPIST Work Phone: [facility] 07-19-2024 11:07-0400 Body weight 64.41 kg Sharronyesica Hollis KNUCKLE STRAP SEWER.[employer]BE[employer] MICROSCOPIST Work Phone: [facility] 07-19-2024 11:07-0400 Diastolic blood pressure 90 mm[Hg] Sharron Hollis KNUCKLE [employer]AP SEWER.[employer]BE[employer]OS MICROSCOPIST Work Phone: [facility] 07-19-2024 11:07-0400 Heart rate 80 /min Sharron Hollis KNUCKLE STRAP SEWER.[employer]BE[employer] MICROSCOPIST Work Phone: [facility] 07-19-2024 11:07-0400 Systolic blood pressure 136 mm[Hg] Sharron Hollis KNUCKLE STRAP SEWER.[employer]BE[employer]OS MICROSCOPIST Work Phone: [facility] 07-18-2024 11:07-0400 Body height 157.5 cm Nimesh Genin DO Work Phone: [facility] 07-18-2024 11:07-0400 Body mass index (BMI) [Ratio] 26.16 kg/m2 Nimesh Genin DO Work Phone: [facility] 07-18-2024 11:07-0400 Body weight 64.86 kg Nimesh Genin DO Work Phone: [facility] 05-25-2024 13:16-0400 Body height 157.5 cm Albina Luong MD Work Phone: [facility] 05-25-2024 13:16-0400 Body mass index (BMI) [Ratio] 26.16 kg/m2 Albina Luong MD Work Phone: [facility] 05-25-2024 13:16-0400 Body weight 64.86 kg Albina Luong MD Work Phone: [facility] 05-25-2024 13:16-0400 Diastolic blood pressure 85 mm[Hg] Albina Luong MD Work Phone: [facility] 05-25-2024 13:16-0400 Heart rate 79 /min Albina Luong MD Work Phone: [facility] 05-25-2024 13:16-0400 Respiratory rate 16 /min Albina Luong MD Work Phone: [facility] 05-25-2024 13:16-0400 SaO2% (BldA) [Mass fraction] 100 % Albina Luong MD Work Phone: [facility] 05-25-2024 13:16-0400 Systolic blood pressure 129 mm[Hg] Albina Luong MD Work Phone: [facility] 05-09-2024 09:31-0400 Body height 157.5 cm Deven Logan MD Work Phone: [facility] 05-09-2024 09:31-0400 Body mass index (BMI) [Ratio] 26.52 kg/m2 Deven Logan MD Work Phone: [facility] 05-09-2024 09:31-0400 Body temperature 97.81 [degF] Deven Logan MD Work Phone: [facility] 05-09-2024 09:31-0400 Body weight 65.77 kg Deven Logan MD Work Phone: [facility] 05-09-2024 09:31-0400 Diastolic blood pressure 91 mm[Hg] Deven Logan MD Work Phone: [facility] 05-09-2024 09:31-0400 Heart rate 88 /min Deven Logan MD Work Phone: [facility] 05-09-2024 09:31-0400 Respiratory rate 16 /min Deven Logan MD Work Phone: [facility] 05-09-2024 09:31-0400 SaO2% (BldA) [Mass fraction] 98 % Deven Logan MD Work Phone: [facility] 05-09-2024 09:31-0400 Systolic blood pressure 139 mm[Hg] Deven Logan MD Work Phone: [facility] 04-19-2024 10:27-0400 Body height 157.5 cm Lamont Michel DO Work Phone: [facility] 04-19-2024 10:27-0400 Body mass index (BMI) [Ratio] 26.34 kg/m2 Lamont Michel DO Work Phone: [facility] 04-19-2024 10:27-0400 Body weight 65.32 kg Lamont Michel DO Work Phone: [facility] 04-19-2024 10:27-0400 Diastolic blood pressure 96 mm[Hg] Lamont Michel DO Work Phone: [facility] 04-19-2024 10:27-0400 Heart rate 81 /min Lamont Michel DO Work Phone: [facility] 04-19-2024 10:27-0400 Systolic blood pressure 144 mm[Hg] Lamont Michel DO Work Phone: [facility] 02-21-2024 15:21-0400 Body height 157.5 cm Andrew Kunz MD Work Phone: [facility] 02-21-2024 15:21-0400 Body mass index (BMI) [Ratio] 27.07 kg/m2 Andrew Kunz MD Work Phone: [facility] 02-21-2024 15:21-0400 Body weight 67.13 kg Andrew Kunz MD Work Phone: [facility] 01-24-2024 14:00-0400 Diastolic blood pressure 84 mm[Hg] Sharron Hollis APRN.[employer] MICROSCOPIST Work Phone: [facility] 01-24-2024 14:00-0400 Heart rate 69 /min Sharron Hollis APRN.[employer]BE[employer] MICROSCOPIST Work Phone: [facility] 01-24-2024 14:00-0400 Respiratory rate 16 /min Sharron Hollis APRN.[employer]BE[employer] MICROSCOPIST Work Phone: [facility] 01-24-2024 14:00-0400 SaO2% (BldA) [Mass fraction] 98 % Sharron Hollis KNUCKLE STRAP SEWER.ASBE[employer]OS MICROSCOPIST Work Phone: [facility] 01-24-2024 14:00-0400 Systolic blood pressure 122 mm[Hg] Sharron Silveriogerardojamal KNUCKLE STRAP SEWER.[employer]BE[employer]OS MICROSCOPIST Work Phone: [facility] 01-17-2024 11:16-0400 Body height 157.[address] Andrew Gonzalez Work Phone: [facility] 01-17-2024 11:14-0400 Body mass index (BMI) [Ratio] 27.1 kg/m2 Dr. Andrew Gonzalez Work Phone: [facility] 01-17-2024 11:14-0400 Body weight 67.[address] Andrew Gonzalez Work Phone: [facility] 01-17-2024 11:14-0400 Diastolic blood pressure 84 mm[Hg] Dr. Andrew Gonzalez Work Phone: [facility] 01-17-2024 11:14-0400 Systolic blood pressure 124 mm[Hg] Dr. Andrew Gonzalez Work Phone: [facility] 01-02-2024 16:44-0400 Body temperature 98.2 [degF] Valorie Athy PA-C Work Phone: [facility] 01-02-2024 16:44-0400 Body weight 67.7 kg Valorie Athy PA-C Work Phone: [facility] 01-02-2024 16:44-0400 Diastolic blood pressure 90 mm[Hg] Valorie Athy PA-C Work Phone: [facility] 01-02-2024 16:44-0400 Heart rate 84 /min Valorie Athy PA-C Work Phone: [facility] 01-02-2024 16:44-0400 Respiratory rate 21 /min Valorie Athy PA-C Work Phone: [facility] 01-02-2024 16:44-0400 SaO2% (BldA) [Mass fraction] 98 % Valorie Benoit PA-C Work Phone: [facility] 01-02-2024 16:44-0400 Systolic blood pressure 110 mm[Hg] Valorie Gregorioy PA-C Work Phone: [facility] 12-09-2023 13:33-0500 Body height 157.5 cm Mahendra Kunz MD Work Phone: [facility] 12-09-2023 13:33-0500 Body weight 66.68 kg Mahendra Kunz MD Work Phone: [facility] 11-29-2023 14:31-0500 Body height 157.5 cm James Nancy DO Work Phone: [facility] 11-29-2023 14:31-0500 Body weight 65.77 kg James Nancy DO Work Phone: [facility] 11-29-2023 14:31-0500 Diastolic blood pressure 68 mm[Hg] James Nancy DO Work Phone: [facility] 11-29-2023 14:31-0500 Heart rate 106 /min James Nancy DO Work Phone: [facility] 11-29-2023 14:31-0500 SaO2% (BldA) [Mass fraction] 99 % James Nancy DO Work Phone: [facility] 11-29-2023 14:31-0500 Systolic blood pressure 120 mm[Hg] James Nancy DO Work Phone: [facility] 08-01-2023 13:18-0400 Body height 157.[address] Andrew Gonzalez Work Phone: [facility] 08-01-2023 13:18-0400 Body mass index (BMI) [Ratio] 27.2 kg/m2 Dr. Andrew Gonzalez Work Phone: [facility] 08-01-2023 13:18-0400 Body weight 67.[address] Andrew Gonzalez Work Phone: [facility] 08-01-2023 13:18-0400 Diastolic blood pressure 85 mm[Hg] Dr. Andrew Gonzalez Work Phone: [facility] 08-01-2023 13:18-0400 Systolic blood pressure 140 mm[Hg] Dr. Andrew Gonzalez Work Phone: [facility] 07-19-2023 14:04-0400 Body height 157.5 cm Sharron Hollis KNUCKLE STRAP SEWER.[employer] MICROSCOPIST Work Phone: [facility] 07-19-2023 14:04-0400 Body weight 67.13 kg Sharron Hollis KNUCKLE STRAP SEWER.[employer] MICROSCOPIST Work Phone: [facility] 07-19-2023 14:04-0400 Diastolic blood pressure 77 mm[Hg] Sharron Hollis APRN.[employer] MICROSCOPIST Work Phone: [facility] 07-19-2023 14:04-0400 Heart rate 92 /min Sharron Hollis KNUCKLE STRAP SEWER.[employer]BE[employer] MICROSCOPIST Work Phone: [facility] 07-19-2023 14:04-0400 SaO2% (BldA) [Mass fraction] 97 % Sharron Hollis KNUCKLE STRAP SEWER.[employer]BE[employer] MICROSCOPIST Work Phone: [facility] 07-19-2023 14:04-0400 Systolic blood pressure 119 mm[Hg] Sharron Hollis KNUCKLE STRAP SEWER.[employer]BE[employer]OS MICROSCOPIST Work Phone: [facility] 06-10-2023 11:26-0400 Body height 158.5 cm Pulm Wstr Work Phone: [facility] 06-10-2023 11:26-0400 Body weight 64.86 kg Pulm Wstr Work Phone: [facility] 06-10-2023 11:26-0400 Heart rate 82 /min Pulm Wstr Work Phone: [facility] 06-10-2023 11:26-0400 Respiratory rate 12 /min Pulm Wstr Work Phone: [facility] 06-10-2023 11:26-0400 SaO2% (BldA) [Mass fraction] 99 % Pulm Wstr Work Phone: [facility] 06-01-2023 10:11-0400 Diastolic blood pressure 100 mm[Hg] James Nancy DO Work Phone: [facility] 06-01-2023 10:11-0400 Heart rate 83 /min James Nancy DO Work Phone: [facility] 06-01-2023 10:11-0400 Systolic blood pressure 164 mm[Hg] James Nancy DO Work Phone: [facility] 06-01-2023 09:59-0400 Body height 157.5 cm James Nancy DO Work Phone: [facility] 06-01-2023 09:59-0400 Body weight 64.41 kg James Nancy DO Work Phone: [facility] 06-01-2023 09:59-0400 SaO2% (BldA) [Mass fraction] 99 % James Nancy DO Work Phone: [facility] 04-19-2023 12:42-0400 Body height 157.5 cm Sharron Hollis APRN.[employer] MICROSCOPIST Work Phone: [facility] 04-19-2023 12:42-0400 Body weight 67.72 kg Sharron Hollis KNUCKLE STRAP SEWER.[employer] MICROSCOPIST Work Phone: [facility] 04-19-2023 12:42-0400 Diastolic blood pressure 83 mm[Hg] Sharron Hollis KNUCKLE STRAP SEWER.[employer]BE[employer] MICROSCOPIST Work Phone: [facility] 04-19-2023 12:42-0400 Heart rate 73 /min Sharron Hollis KNUCKLE STRAP SEWER.[employer]BE[employer] MICROSCOPIST Work Phone: [facility] 04-19-2023 12:42-0400 SaO2% (BldA) [Mass fraction] 99 % Sharron Hollis KNUCKLE STRAP SEWER.[employer]BE[employer] MICROSCOPIST Work Phone: [facility] 04-19-2023 12:42-0400 Systolic blood pressure 122 mm[Hg] Sharron Hollis APRN.[employer]BE[employer] MICROSCOPIST Work Phone: [facility] 01-11-2023 12:51-0400 Body height 157.5 cm Sharron Hollis APRN.[employer]BE[employer] MICROSCOPIST Work Phone: [facility] 01-11-2023 12:51-0400 Body weight 65.32 kg Sharron Hollis KNUCKLE STRAP SEWER.[employer]BE[employer]OS MICROSCOPIST Work Phone: [facility] 01-11-2023 12:51-0400 Diastolic blood pressure 85 mm[Hg] Sharron Hollis KNUCKLE STRAP SEWER.[employer]BE[employer]OS MICROSCOPIST Work Phone: [facility] 01-11-2023 12:51-0400 Heart rate 91 /min Sharron Hollis KNUCKLE STRAP SEWER.[employer]BE[employer] MICROSCOPIST Work Phone: [facility] 01-11-2023 12:51-0400 SaO2% (BldA) [Mass fraction] 100 % Sharron Hollis KNUCKLE STRAP SEWER.[employer]BE[employer] MICROSCOPIST Work Phone: [facility] 01-11-2023 12:51-0400 Systolic blood pressure 136 mm[Hg] Sharron Hollis KNUCKLE [employer]AP SEWER.[employer] MICROSCOPIST Work Phone: [facility] 10-13-2022 13:08-0500 Body height 157.5 cm Albina Luong MD Work Phone: [facility] 10-13-2022 13:08-0500 Body weight 63.05 kg Albina Luong MD Work Phone: [facility] 10-13-2022 13:08-0500 Diastolic blood pressure 89 mm[Hg] Albina Luong MD Work Phone: [facility] 10-13-2022 13:08-0500 Heart rate 75 /min Albina Luong MD Work Phone: [facility] 10-13-2022 13:08-0500 Respiratory rate 18 /min Albina Luong MD Work Phone: [facility] 10-13-2022 13:08-0500 SaO2% (BldA) [Mass fraction] 97 % Albina Luong MD Work Phone: [facility] 10-13-2022 13:08-0500 Systolic blood pressure 146 mm[Hg] Albina Luong MD Work Phone: [facility] 10-06-2022 13:48-0500 Body temperature 100.29 [degF] Francheska Denbow PA-C Work Phone: [facility] 10-06-2022 13:48-0500 Body weight 65.77 kg Francheska Denbow PA-C Work Phone: [facility] 10-06-2022 13:48-0500 Diastolic blood pressure 92 mm[Hg] Francheska Denbow PA-C Work Phone: [facility] 10-06-2022 13:48-0500 Heart rate 118 /min Francheska Denbow PA-C Work Phone: [facility] 10-06-2022 13:48-0500 Respiratory rate 20 /min Francheska Denbow PA-C Work Phone: [facility] 10-06-2022 13:48-0500 SaO2% (BldA) [Mass fraction] 95 % Francheska Denbow PA-C Work Phone: [facility] 10-06-2022 13:48-0500 Systolic blood pressure 142 mm[Hg] Francheska Denbow PA-C Work Phone: [facility] 09-01-2022 14:40-0500 Body height 157.5 cm Pacc 1 Work Phone: [facility] 09-01-2022 14:40-0500 Body temperature 97.7 [degF] Pacc 1 Work Phone: [facility] 09-01-2022 14:40-0500 Body weight 66.22 kg Pacc 1 Work Phone: [facility] 09-01-2022 14:40-0500 Diastolic blood pressure 78 mm[Hg] Pacc 1 Work Phone: [facility] 09-01-2022 14:40-0500 Heart rate 62 /min Pacc 1 Work Phone: [facility] 09-01-2022 14:40-0500 Respiratory rate 16 /min Pacc 1 Work Phone: [facility] 09-01-2022 14:40-0500 SaO2% (BldA) [Mass fraction] 99 % Pacc 1 Work Phone: [facility] 09-01-2022 14:40-0500 Systolic blood pressure 112 mm[Hg] Pacc 1 Work Phone: [facility] 07-13-2022 14:03-0400 Body height 157.5 cm Sharron Hollis APRN.[employer] MICROSCOPIST Work Phone: [facility] 07-13-2022 14:03-0400 Body weight 64.86 kg Sharron Hollis KNUCKLE STRAP SEWER.[employer] MICROSCOPIST Work Phone: [facility] 07-13-2022 14:03-0400 Diastolic blood pressure 77 mm[Hg] Sharron Hollis APRN.[employer] MICROSCOPIST Work Phone: [facility] 07-13-2022 14:03-0400 Heart rate 70 /min Sharron Hollis KNUCKLE STRAP SEWER.[employer] MICROSCOPIST Work Phone: [facility] 07-13-2022 14:03-0400 SaO2% (BldA) [Mass fraction] 99 % Sharron Hollis KNUCKLE STRAP SEWER.[employer] MICROSCOPIST Work Phone: [facility] 07-13-2022 14:03-0400 Systolic blood pressure 128 mm[Hg] Sharron Hollis KNUCKLE STRAP SEWER.[employer] MICROSCOPIST Work Phone: [facility] 04-16-2022 11:05-0400 Body height 157.5 cm Sharron Hollis KNUCKLE STRAP SEWER.[employer]BE[employer]OS MICROSCOPIST Work Phone: [facility] 04-16-2022 11:05-0400 Body weight 63.55 kg Sharron Silverioshayan KNUCKLE STRAP SEWER.[employer] MICROSCOPIST Work Phone: [facility] 04-16-2022 11:05-0400 Diastolic blood pressure 74 mm[Hg] Sharron Sal KNUCKLE STRAP SEWER.[employer] MICROSCOPIST Work Phone: [facility] 04-16-2022 11:05-0400 Heart rate 79 /min Sharron Sal KNUCKLE STRAP SEWER.[employer] MICROSCOPIST Work Phone: [facility] 04-16-2022 11:05-0400 SaO2% (BldA) [Mass fraction] 96 % Sharron Sal KNUCKLE STRAP SEWER.[employer] MICROSCOPIST Work Phone: [facility] 04-16-2022 11:05-0400 Systolic blood pressure 124 mm[Hg] Sharron Sal KNUCKLE STRAP SEWER.[employer]BE[employer]OS MICROSCOPIST Work Phone: [facility] 07-20-2017 14:25-0400 BMI (Body Mass Index) 26.52 kg/m2 [facility] Work Phone: 07-20-2017 14:25-0400 Weight 65.77 kg [facility] Work Phone: 07-15-2017 11:52-0400 BMI (Body Mass Index) 26.08 kg/m2 Tootie Figueroa MD [facility] 07-15-2017 11:52-0400 Body Temperature 97.8 [degF] Tootie Figueroa MD [facility] 07-15-2017 11:52-0400 Body Temperature 97.81 [degF] Tootie Figueroa MD [facility] 07-15-2017 11:52-0400 BP Diastolic 82 mm[Hg] Tootie Figueroa MD [facility] 07-15-2017 11:52-0400 BP Systolic 121 mm[Hg] Tootie Figueroa MD [facility] 07-15-2017 11:52-0400 Height 157.48 cm Tootie Figueroa MD [facility] 07-15-2017 11:52-0400 Pulse (Heart Rate) 85 /min Tootie Figueroa MD [facility] 07-15-2017 11:52-0400 Respiratory Rate 16 /min Tootie Figueroa MD [facility] 07-15-2017 11:52-0400 Weight 64.68 kg Tootie Figueroa MD [facility] 06-03-2017 14:07-0400 BMI (Body Mass Index) 27.21 kg/m2 Tootie Figueroa MD [facility] 06-03-2017 14:07-0400 Body Temperature 97.6 [degF] Tootie Figueroa MD [facility] 06-03-2017 14:07-0400 Body Temperature 97.59 [degF] Tootie Figueroa MD [facility] 06-03-2017 14:07-0400 BP Diastolic 91 mm[Hg] Tootie Figueroa MD [facility] 06-03-2017 14:07-0400 BP Systolic 147 mm[Hg] Tootie Figueroa MD [facility] 06-03-2017 14:07-0400 Height 157.48 cm Tootie Figueroa MD [facility] 06-03-2017 14:07-0400 Pulse (Heart Rate) 62 /min Tootie Figueroa MD [facility] 06-03-2017 14:07-0400 Respiratory Rate 16 /min Tootie Figueroa MD [facility] 06-03-2017 14:07-0400 Weight 67.5 kg Tootie Figueroa MD [facility] 06-03-2017 14:07-0400 Weight 67.49 kg Tootie Figueroa MD [facility] NEGATED: Highlighted [id number] 14:37-0500 Body height 157.48 cm Aime Lovelli OT-C [facility] [place] [facility] Work Phone: NEGATED: Highlighted [id number] 14:37-0500 Body height 157 cm Aime Vitor OT-C [facility] Work Phone: NEGATED: Highlighted [id number] 14:37-0500 Body mass index (BMI) [Ratio] 27.72 kg/m2 Aime [facility] Work Phone: NEGATED: Highlighted [id number] 14:37-0500 Body weight 68.49 kg Aime Adler OT-Kalyn [facility] Work Phone: NEGATED: Highlighted [id number] 14:37-0500 Body weight 69 kg Aime Adler OT-Kalyn [facility] Work Phone: Encounters Encounter Date Encounter Type Care Provider Facility Start: 09-05-2025 ambulatory Dasia Fast Facility:[facility] Start: 08-13-2025 ambulatory Dasia Fast Facility:[facility] Start: 07-24-2025 End: 07-24-[address] Jaime Bowman MD [facility] Start: 07-24-2025 End: 07-24-2025 ambulatory Dasia Fast Facility:[facility] Start: 07-18-2025 End: 07-18-2025 ambulatory [facility] Facility:[facility] Start: 07-16-2025 End: 07-16-2025 ambulatory [facility] Facility:[facility] Start: 07-16-2025 Encounter for genera l adult medical examination without abnormal findings [facility] Start: 07-12-2025 End: 07-12-2025 ambulatory [facility] Facility:[facility] Start: 06-27-2025 End: 06-27-2025 Patient encounter procedure [facility] Work Phone: Start: 06-27-2025 End: 06-27-[address] Dasia Auguste DO Work Phone: [facility] Start: 06-07-2025 End: 06-07-2025 Admission to same day surgery center Justus Ghosh DO -Endoscopy Work Phone: Start: 06-07-2025 End: 06-07-[address] Dasia Auguste DO Work Phone: -Endoscopy Start: 06-05-2025 End: 06-05-2025 Refill James Harry DO Work Phone: [facility] Comment on above: Refill Request Start: 05-21-2025 End: 05-21-[address] Dasia Auguste DO Work Phone: -Nuclear Medicine [facility] Start: 05-21-2025 End: 05-21-2025 Patient encounter procedure Kassie GARAY -[facility] Work Phone: Start: 05-21-2025 End: 05-21-2025 ambulatory Kassie Valdes Facility:[facility] Start: 05-09-2025 End: 05-09-[address] Dasia Auguste DO Work Phone: -Laboratory Start: 05-09-2025 End: 05-09-[address] Malcolm Gleason MD -Laboratory Work Phone: Start: 05-09-2025 End: 05-09-2025 ambulatory Malcolm Gleason Facility:[facility] Start: 05-07-2025 End: 05-07-2025 Patient encounter procedure Kassie GARAY -[facility] Work Phone: Start: 05-07-2025 End: 05-07-[address] Dasia Auguste DO Work Phone: [facility] Start: 05-03-2025 End: 05-03-2025 Patient encounter procedure Deven Logan MD Work Phone: Allergy Comment on above: Gastroesophageal ref lux disease, unspecified whether esophagitis present (Primary Dx); Mild persistent asthma without complication (HCC); Chronic rhinitis; PVC (premature ventricular contraction); Chronic sinusitis, unspecified location; WPW (Bqlwl-Ymynegnxt-Pstyo syndrome); Vasomotor rhinitis; Inducible laryngeal obstruction (ILO); Allergic contact dermatitis due to adhesives; Hoarseness of voice; Allergic conjunctivitis, bilateral Start: 05-03-2025 End: 05-03-2025 ambulatory DEVEN LOGAN Facility:[facility] Start: 04-18-2025 End: 04-18-2025 Patient encounter procedure Sharron Hollis APRN.ASBESTOS MICROSCOPIST Work Phone: Neurology Comment on above: Chronic migraine wit hout aura, intractable, without status migrainosus (Primary Dx) Start: 04-18-2025 End: 04-18-2025 ambulatory JAMES NANCY Facility:[facility] Start: 04-11-2025 End: 04-11-2025 Telephone encounter Sharron Hollis APRN.ASBESTOS MICROSCOPIST Work Phone: Neurology Comment on above: Insurance Authorizat ion; [facility] Refill Request Start: 04-10-2025 End: 04-10-2025 Refill Sharron Hollis APRN.ASBESTOS MICROSCOPIST Work Phone: Neurology Comment on above: Refill Request Start: 04-08-2025 End: 04-08-2025 Refill Deven Logan MD Work Phone: Allergy Start: 04-02-2025 Non-patient / Non-visit Dr. Hansa dixon MD -[facility] Work Phone: Start: 03-15-2025 End: 03-15-2025 ambulatory James Nancy DO Work Phone: [facility] Comment on above: Tramadol Start: 03-13-2025 End: 03-16-2025 Refill James Nancy DO Work Phone: [facility] Comment on above: Refill Request Start: 03-06-2025 End: 03-06-[address] Jaime Bowman MD -[facility] Start: 03-06-2025 End: 03-06-[address] Dasia Auguste DO Work Phone: [facility] Work Phone: Start: 02-13-2025 End: 02-13-2025 Refill James Harry DO Work Phone: [facility] Comment on above: Refill Request Start: 02-11-2025 End: 02-11-2025 Refill Deven Logan MD Work Phone: Allergy Comment on above: Refill Request Start: 02-08-2025 ambulatory Justus Ghosh Facility :[facility] Start: 01-17-2025 End: 01-17-2025 Patient encounter procedure Rosalie GARAY -Laboratory Specimen Work Phone: Start: 01-16-2025 End: 01-17-2025 ambulatory LAMONT MICHEL Facility:[facility] Start: 01-16-2025 End: 01-17-2025 Patient encounter procedure Sharron Hollis APRN.ASBESTOS MICROSCOPIST Work Phone: Neurology Comment on above: Chronic migraine wit hout aura, intractable, without status migrainosus (Primary Dx) Refill Request Start: 01-10-2025 End: 01-10-[address] Dasia Auguste DO Work Phone: [facility] Work Phone: Start: 01-10-2025 End: 01-10-2025 Patient encounter procedure Kassie GARAY -Laboratory Work Phone: Start: 01-10-2025 End: 01-10-2025 ambulatory Kassie Valdes Facility:[facility] Start: 01-03-2025 End: 01-03-2025 Telemedicine consultation with patient James Harry DO Work Phone: [facility] Start: 01-03-2025 End: 01-03-2025 ambulatory James Harry DO Work Phone: [facility] Comment on above: Tear of left acetabu lar labrum, subsequent encounter (Primary Dx); Chronic midline low back pain without sciatica; Tendinopathy of left gluteal region Start: 12-21-2024 End: 12-21-2024 Patient encounter procedure Kassie GARAY -[facility] Work Phone: Start: 12-21-2024 End: 12-21-2024 ambulatory Dasia Auguste Facility:[facility] Start: 12-19-2024 End: 12-20-2024 Refill James Nancy DO Work Phone: [facility] Comment on above: Refill Request Start: 11-28-2024 End: 11-28-2024 Telephone encounter [facility] Start: 11-26-2024 End: 11-26-2024 Telephone encounter Hudson Sharma RN Work Phone: [facility] Comment on above: Insurance Authorizat ion; [employer] Start: 11-22-2024 End: 11-22-[address] Malcolm Gleason MD -Laboratory Work Phone: Start: 11-21-2024 End: 11-22-2024 Refill Jamesstacia Majori DO Work Phone: [facility] Comment on above: Refill Request Start: 11-14-2024 End: 11-14-2024 Refill Sharron Hollis KNUCKLE STRAP SEWER.ASBESTOS MICROSCOPIST Work Phone: Neurology Comment on above: Refill Request Start: 11-13-2024 End: 11-13-2024 Telephone encounter Brennan Langley MD Work Phone: Pulmonary Medicine Start: 11-11-2024 End: 11-14-2024 ambulatory Sharron Hollis KNUCKLE STRAP SEWER.ASBESTOS MICROSCOPIST Work Phone: Neurology Comment on above: [employer] Start: 11-08-2024 End: 11-08-2024 Refill Deven Logan MD Work Phone: Allergy Adult/Pediatric [facility] Comment on above: Refill Request Start: 11-03-2024 End: 11-06-2024 ambulatory Sharron Hollis KNUCKLE STRAP SEWER.ASBESTOS MICROSCOPIST Work Phone: Neurology Comment on above: Prior auth Start: 11-01-2024 End: 11-01-[address] Dasia Auguste DO -Outpatient Bone Densitometry Work Phone: Start: 11-01-2024 End: 11-01-2024 ambulatory Dasia Auguste Facility:[facility] Start: 10-30-2024 End: 10-30-2024 Telephone encounter Deven Logan MD Work Phone: Allergy Adult/Pediatric [facility] Comment on above: Referral to Tre[facility] Start: 10-30-2024 End: 11-30-2024 ambulatory James Harry DO Work Phone: [facility] Start: 10-30-2024 End: 10-30-2024 Patient encounter procedure Deven Logan MD Work Phone: Allergy Adult/Pediatric [facility] Comment on above: Chronic rhinitis (Pr imary Dx); Mild persistent asthma without complication; PVC (premature ventricular contraction); Chronic sinusitis, unspecified location; WPW (Uavqg-Skrivcplk-Wjsyb syndrome); Vasomotor rhinitis; Inducible laryngeal obstruction (ILO); Allergic contact dermatitis due to adhesives; Hoarseness of voice; Allergic conjunctivitis, bilateral; Daytime somnolence Start: 10-23-2024 End: 10-23-2024 ambulatory LAMONT MICHEL Facility:[facility] Start: 10-23-2024 End: 10-23-2024 Patient encounter procedure Sharron Hollis APRN.ASBESTOS MICROSCOPIST Work Phone: Neurology Comment on above: Chronic migraine wit hout aura, intractable, without status migrainosus (Primary Dx) Start: 10-22-2024 End: 10-22-2024 Refill James Nancy DO Work Phone: [facility] Comment on above: Refill Request Start: 10-01-2024 End: 10-01-2024 Telephone encounter James Nancy DO Work Phone: [facility] Comment on above: insurance denial (An them - Tramadol) Start: 09-19-2024 End: 09-20-2024 Refill James Nancy DO Work Phone: [facility] Comment on above: Refill Request Start: 08-22-2024 End: 08-22-2024 Refill James Harry DO Work Phone: [facility] Comment on above: Refill Request Start: 08-06-2024 End: 08-06-2024 ambulatory Codie Munguia PT Work Phone: [facility] Comment on above: Tear of left acetabu lar labrum, initial encounter; Pain of left hip; Tendinopathy of left gluteal region Start: 07-26-2024 End: 07-26-2024 ambulatory JAMES MACHADOCINI Facility:[facility] Start: 07-26-2024 End: 07-26-2024 Office outpatient visit 25 minutes James Harry DO Work Phone: [facility] Comment on above: Anxiety (Primary Dx) ; Screening for depression; Tear of right acetabular labrum, initial encounter; Encounter for immunization; Ecchymosis; Iron deficiency anemia, unspecified iron deficiency anemia type; Essential tremor Start: 07-23-2024 End: 07-24-2024 Refill Albina Luong MD Work Phone: [facility] Comment on above: Refill Request Start: 07-19-2024 End: 07-19-2024 Patient encounter procedure Sharron Hollis APRN.ASBESTOS MICROSCOPIST Work Phone: Neurology Comment on above: Chronic migraine wit hout aura, intractable, without status migrainosus (Primary Dx) Start: 07-18-2024 End: 07-18-2024 ambulatory Rosa Goff PA-C Work Phone: [facility] Comment on above: Hip Injection - Pain Diary Start: 07-18-2024 End: 07-18-2024 E-mail encounter from caregiver Rosa Goff PA-C Work Phone: [facility] Start: 07-18-2024 End: 07-18-2024 Patient encounter procedure Nimesh Velasquez DO Work Phone: Orthopaedics Comment on above: Tear of left acetabu lar labrum, initial encounter (Primary Dx); Pain of left hip; Pain of right hip; Acetabular labrum tear, right, initial encounter Start: 07-16-2024 End: 07-16-2024 ambulatory Rosa Noemi WEBSTER Work Phone: [facility] Comment on above: Tear of left acetabu lar labrum, initial encounter (Primary Dx); Pain of left hip; Tendinopathy of left gluteal region Start: 07-16-2024 End: 07-16-2024 Telemedicine consultation with patient Rosa Noemi WEBSTER Work Phone: [facility] Start: 07-10-2024 End: 07-10-2024 Subsequent hospital visit by physician Jerrica [facility] (I-Stat/3t) [facility] Comment on above: Pain of left hip [M2 5.552] Start: 07-02-2024 End: 07-05-2024 E-mail encounter from caregiver [facility] Start: 07-02-2024 End: 07-05-2024 Patient encounter procedure [facility] Comment on above: Rosa let me louann w that you would like to have another Ultrasound Guided injection - Left hip with Dr. Velasquez Start: 06-29-2024 End: 06-29-2024 Refill Jada Rodriguez APRN.CNP Work Phone: [facility] Comment on above: Refill Request Start: 06-25-2024 End: 06-25-2024 Patient encounter procedure Rosa Goff PA-C Work Phone: [facility] Comment on above: Pain of left hip (Pr imary Dx); Acetabular labrum tear, right, initial encounter Start: 06-25-2024 End: 06-25-2024 Subsequent hospital visit by physician Xr kalyn Hargrove 1 Xray [facility] Comment on above: Pain in left hip [M2 5.552] Start: 06-24-2024 End: 06-25-2024 Refill Deven Logan MD Work Phone: Allergy Adult/Pediatric [facility] Comment on above: Refill Request Start: 06-19-2024 End: 06-19-2024 Orders Only Rosa Goff PA-C Work Phone: [facility] Comment on above: Pain in left hip (Pr imary Dx) Start: 06-18-2024 End: 06-18-2024 Subsequent hospital visit by physician Xr [facility] Work Phone: Radiology Start: 06-14-2024 End: 06-14-2024 Orders Only Rosa Flowerso PA-C Work Phone: Orthopaedics Comment on above: Pain (Primary Dx) Start: 06-06-2024 End: 06-06-2024 Subsequent hospital visit by physician [facility] Comment on above: Paroxysmal supravent ricular tachycardia (HCC) [I47.10] Start: 06-04-2024 End: 06-14-2024 ambulatory Mahendra Kunz MD Work Phone: Orthopaedics Comment on above: Left hip Start: 06-01-2024 End: 06-01-2024 Refill James Harry DO Work Phone: [facility] Comment on above: Refill Request Start: 05-25-2024 End: 05-25-2024 Office outpatient visit 25 minutes Albina Luong MD Work Phone: [facility] [place] [facility] Comment on above: Paroxysmal supravent ricular tachycardia (HCC) (Primary Dx); WPW (Rgezo-Oonrrzebc-Eqkxq syndrome); Status post ablation of accessory bypass tract; Sinus tachycardia; PVC (premature ventricular contraction); Palpitations Start: 05-17-2024 End: 05-21-2024 Refill Deven Logan MD Work Phone: Allergy Adult/Pediatric [facility] Comment on above: Refill Request Start: 05-09-2024 End: 05-09-2024 Patient encounter procedure Deven Logan MD Work Phone: Allergy Adult/Pediatric [facility] Comment on above: Chronic rhinitis (Pr imary Dx); Mild persistent asthma without complication; Allergic conjunctivitis, bilateral; PVC (premature ventricular contraction); Chronic sinusitis, unspecified location; WPW (Mndcj-Tdkngjigu-Ytymg syndrome); Vasomotor rhinitis; Inducible laryngeal obstruction (ILO); Allergic contact dermatitis due to adhesives; Hoarseness of voice Start: 04-28-2024 Refill James Mancin i DO Work Phone: [facility] Comment on above: Refill Request Start: 04-19-2024 End: 04-19-2024 Patient encounter procedure Lamont Arina Michel DO Work Phone: Neurology Comment on above: Chronic migraine wit hout aura, intractable, without status migrainosus (Primary Dx); Chronic daily headache; Intractable chronic migraine without aura and without status migrainosus; Bilateral occipital neuralgia; Migraine without aura and without status migrainosus, not intractable; Cervicalgia Start: 03-26-2024 Refill James Mancin i DO Work Phone: [facility] Comment on above: Refill Request Start: 03-24-2024 End: 03-24-2024 Telemedicine consultation with patient Dasha Gaytan APRN.ASBESTOS MICROSCOPIST Work Phone: Telemedicine Comment on above: Mild persistent asth ma with acute exacerbation (Primary Dx) Start: 03-02-2024 End: 03-02-2024 Patient encounter procedure Nimesh A Eva DO Work Phone: Orthopaedics Comment on above: Pain of right hip (P rimary Dx) Start: 02-23-2024 Refill Mahendra Kunz MD Work Phone: Orthopaedics Comment on above: Refill Request Start: 02-21-2024 End: 02-21-2024 Patient encounter procedure Andrew Kunz MD Work Phone: Orthopaedics Comment on above: Pain of right hip (P rimary Dx); Acetabular labrum tear, right, initial encounter Start: 02-02-2024 E-mail encounter fro m caregiver [facility] Start: 02-02-2024 End: 02-02-2024 Patient encounter procedure Amanda Segura [facility] Work Phone: [facility] Speech Therapy Comment on above: Oropharyngeal dyspha anh (Primary Dx) Right Hip - Surgical Consult / Referral - Dr. 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; Appointment Start: 02-02-2024 End: 02-03-2024 ambulatory Amanda Segura CCC-[employer]ER STRIPPER MACHINE Work Phone: [facility] Start: 02-02-2024 End: 02-02-2024 Subsequent hospital visit by physician [facility] Work Phone: Radiology Comment on above: Gastroesophageal ref lux disease, unspecified whether esophagitis present [K21.9] Start: 01-30-2024 ambulatory Mahendra Kunz MD Work Phone: Orthopaedics Comment on above: MRI Start: 01-25-2024 End: 01-25-2024 Subsequent hospital visit by physician [facility] (I-Stat/3t) MRI [facility] Comment on above: Pain of right hip [M 25.551] Start: 01-24-2024 End: 01-24-2024 Patient encounter procedure Sharron Hollis APRN.ASBESTOS MICROSCOPIST Work Phone: Neurology Comment on above: Chronic migraine wit hout aura, intractable, without status migrainosus (Primary Dx) Start: 01-18-2024 Refill Sharron hernandez APRN.ASBESTOS MICROSCOPIST Work Phone: Neurology Comment on above: Refill Request Start: 01-17-2024 End: 01-17-[address] Andrew Gonzalez Work Phone: [facility] Work Phone: Start: 01-17-2024 End: 01-17-[address] Andrew Gonzalez Work Phone: [facility]-Laboratory, Specimen Work Phone: Start: 01-17-2024 End: 01-17-[address] Andrew Gonzalez Work Phone: [facility] Work Phone: Start: 01-02-2024 End: 01-02-2024 Patient encounter procedure Valorie Benoit PA-C Work Phone: [facility] Comment on above: Sinus congestion (Pr imary Dx) Start: 01-02-2024 Refill Andrew martinez MD Work Phone: [facility] Comment on above: Refill Request Start: 12-23-2023 ambulatory Deven Logan MD Work Phone: Allergy Adult/Pediatric [facility] Comment on above: Dry eyes Start: 12-12-2023 End: 12-12-2023 Patient encounter procedure Werner Murrell PhD, [facility] Work Phone: Otolaryngology Comment on above: Hoarseness (Primary Dx); Vocal tremor; Gastroesophageal reflux disease, unspecified whether esophagitis present Start: 12-09-2023 End: 12-09-2023 Office outpatient visit 15 minutes Mahendra Kunz MD Work Phone: Orthopaedics Comment on above: Pain of right hip (P rimary Dx); Bilateral hip pain Start: 12-09-2023 End: 12-09-2023 Subsequent hospital visit by physician Xr [facility] Radiology Comment on above: Lateral pain of righ t hip [M25.551] Start: 12-06-2023 ambulatory Deven Lgoan MD Work Phone: Allergy Adult/Pediatric [facility] Comment on above: ENT Start: 11-29-2023 End: 11-29-2023 Patient encounter procedure James Harry DO Work Phone: [facility] Comment on above: Wellness examination (Primary Dx); Anxiety; Screening for endocrine, metabolic and immunity disorder; Encounter for screening mammogram for malignant neoplasm of breast; Bilateral hip pain; Melanocytic nevus, unspecified location Start: 11-29-2023 End: 11-29-2023 Patient encounter status James Harry DO Work Phone: [facility] Work Phone: Start: 08-22-2023 Telephone encounter Sharron Hollis APRN.ASBESTOS MICROSCOPIST Work Phone: Neurology Comment on above: Insurance Authorizat ion ([facility] ) Start: 08-13-2023 Refill Andrew martinez MD Work Phone: [facility] Comment on above: Refill Request Start: 08-05-2023 End: 08-05-[address] Andrew Gonzalez Work Phone: [facility] Work Phone: Start: 08-05-2023 End: 08-05-[address] Andrew Gonzalez Work Phone: [facility]-Laboratory, [facility] Pav[facility] Start: 08-01-2023 End: 08-01-[address] Andrew Gonzalez Work Phone: [facility] Start: 08-01-2023 End: 08-01-[address] Andrew Gonzalez Work Phone: [facility] Work Phone: Start: 07-19-2023 End: 07-19-2023 Patient encounter procedure Sharron Hollis APRN.ASBESTOS MICROSCOPIST Work Phone: Neurology Comment on above: Chronic migraine wit hout aura, intractable, without status migrainosus (Primary Dx) Start: 07-12-2023 Refill Jayde WESTON RN.ASBESTOS MICROSCOPIST Work Phone: Gastroenterology Comment on above: Refill Request Start: 07-06-2023 ambulatory Andrew martinez MD Work Phone: Internal Medicine [facility] Start: 06-10-2023 End: 06-10-2023 ambulatory Pulm Lab [facility] Work Phone: PULM LAB [facility] Comment on above: Spirometry Start: 06-10-2023 End: 06-10-2023 Patient encounter procedure Pulm Lab [facility] Work Phone: [facility] Start: 06-09-2023 Telephone encounter Albina hwang MD Work Phone: [facility] Comment on above: Results Start: 06-01-2023 End: 06-01-2023 Subsequent hospital visit by physician Tucker [facility] Radiology Comment on above: Dizziness [R42] Start: 06-01-2023 End: 06-01-2023 Patient encounter procedure James Harry DO Work Phone: [facility] Comment on above: Dizziness (Primary D x); PVC's (premature ventricular contractions); Chronic cough; Mild intermittent asthma, unspecified whether complicated Start: 05-26-2023 End: 05-26-2023 Subsequent hospital visit by physician [employer] [address] Radiology Comment on above: Lateral pain of left hip [M25.552] Start: 05-24-2023 End: 05-24-2023 Subsequent hospital visit by physician Card [facility] [place] [facility] Comment on above: Palpitations [R00.2] Start: 05-17-2023 Telephone encounter Albina hwang MD Work Phone: [facility] Cardiology [place] Comment on above: Patient Update Start: 04-19-2023 End: 04-19-2023 Patient encounter procedure Sharronleigh Hollis KNUCKLE STRAP SEWER.ASBESTOS MICROSCOPIST Work Phone: Neurology Comment on above: Chronic migraine wit hout aura, intractable, without status migrainosus (Primary Dx) Start: 03-04-2023 End: 03-04-2023 Patient encounter procedure Bijan Albert PA-C Work Phone: Orthopedics Comment on above: Lateral pain of left hip (Primary Dx); Lateral pain of right hip; Greater trochanteric bursitis of both hips Start: 03-04-2023 End: 03-04-2023 Subsequent hospital visit by physician Tucker Nelson Work Phone: Radiology Comment on above: Pain [R52] Start: 03-04-2023 Telephone encounter Bull Young [facility] Rad[facility] Comment on above: Appointment Start: 02-07-2023 Refill Sharron hernandez APRN.CNP Work Phone: Neurology Comment on above: Refill Request Start: 01-29-2023 Refill Andrew martinez MD Work Phone: [facility] Comment on above: Refill Request Start: 01-26-2023 End: 01-26-2023 ambulatory Jaydejorge luis Gonzalez SHANI Work Phone: Gastroenterology Comment on above: Gastroesophageal ref lux disease, unspecified whether esophagitis present (Primary Dx); Irritable bowel syndrome with both constipation and diarrhea Start: 01-26-2023 End: 01-26-2023 Telemedicine consultation with patient Jayde Gonzalez NEVIN.ROLAND Work Phone: [facility] Start: 01-21-2023 Telephone encounter Sharron Hollis APRN.CNP Work Phone: Neurology Comment on above: Results Start: 01-18-2023 ambulatory No One (Historical) Ref erring Physician Start: 01-14-2023 Telephone encounter Sharron Hollis APRN.CNP Work Phone: Neurology Comment on above: Insurance Authorizat ion ([employer]) Start: 01-13-2023 ambulatory No Pcp (Hist) Referring Physician Start: 01-11-2023 Telephone encounter Sharron Hollis APRN.CNP Work Phone: Neurology Comment on above: Referral Request Start: 01-11-2023 End: 01-11-2023 Patient encounter procedure Sharron Hollis APRN.CNP Work Phone: Neurology Comment on above: Chronic migraine wit hout aura, intractable, without status migrainosus (Primary Dx); Medication monitoring encounter Start: 01-03-2023 Telephone encounter Sharron Hollis APRN.CNP Work Phone: Neurology Comment on above: Insurance Authorizat ion ([employer] ([employer])) Start: 12-28-2022 Orders Only Monika rick PA-C Work Phone: Appointment Center Comment on above: Pain (Primary Dx) Start: 12-27-2022 End: 12-27-2022 [facility] Andrew Gonzalez MD Work Phone: [facility] Comment on above: Hip pain (Primary Dx ); Anxiety disorder, unspecified type; Seasonal allergic rhinitis due to pollen; Primary insomnia Start: 12-23-2022 End: 12-23-2022 ambulatory [facility] Work Phone: Start: 12-23-2022 End: 12-23-2022 Patient encounter procedure [facility]-Outpatient Breast Imaging Start: 11-15-2022 Refill Sharron hernandez APRN.ASBESTOS MICROSCOPIST Work Phone: Neurology Comment on above: Refill Request Start: 11-03-2022 ambulatory Andrew martinez MD Work Phone: [facility] Comment on above: Lorazepam Start: 10-27-2022 Telephone encounter Jose Angel ferrari DO Work Phone: Gastroenterology Comment on above: Appointment Start: 10-13-2022 End: 10-13-2022 Patient encounter procedure Albina Luong MD Work Phone: [facility] Cardiology [place] Comment on above: Paroxysmal supravent ricular tachycardia (HCC) (Primary Dx); WPW (Tpcna-Diifolaeo-Klztu syndrome); Status post ablation of accessory bypass tract; Palpitations Start: 10-07-2022 Telephone encounter Bia Hooker APRN.ASBESTOS MICROSCOPIST Work Phone: [facility] Comment on above: Results Patient Update Start: 10-06-2022 End: 10-06-2022 Subsequent hospital visit by physician Xr [facility] Work Phone: Radiology Comment on above: Acute cough [R05.1] Start: 10-06-2022 End: 10-06-2022 Patient encounter procedure Francheska Ambrocio PA-C Work Phone: [facility] Comment on above: Acute cough (Primary Dx); Flu-like symptoms Start: 09-30-2022 Refill Jose Angel Coker DO Work Phone: Gastroenterology Comment on above: Refill Request (bent yl) Start: 09-27-2022 Refill Jose Angel Coker DO Work Phone: Gastroenterology Comment on above: Refill Request (Zofr an) Start: 09-23-2022 Refill Sharron hernandez APRN.ASBESTOS MICROSCOPIST Work Phone: Neurology Comment on above: Refill Request Start: 09-07-2022 Refill Andrew martinez MD Work Phone: [facility] Comment on above: Refill Request Start: 09-01-2022 End: 09-01-2022 PAT Pacc [place] [facility] Work Phone: Pre Anesthesia Comment on above: Pre-operative examin ation (Primary Dx); WPW (Asceb-Olhmfvdav-Qfppn syndrome); Gastro-esophageal reflux disease without esophagitis; Palpitations; Anxiety disorder, unspecified type; Mild intermittent asthma, unspecified whether complicated; Chronic insomnia; History of fusion of cervical spine; Internal hemorrhoids; Irritable bowel syndrome with diarrhea Start: 09-01-2022 End: 09-01-2022 Preprocedural examination done Pacc [place] [facility] Work Phone: Pre Anesthesia Start: 07-28-2022 ambulatory Andrew martinez MD Work Phone: Internal Medicine [facility] Start: 07-13-2022 End: 07-13-2022 Patient encounter procedure Sharron Hollis APRN.ASBESTOS MICROSCOPIST Work Phone: Neurology Comment on above: Chronic migraine wit hout aura, intractable, without status migrainosus (Primary Dx) Start: 2022 Refill Jose Angel Coker DO Work Phone: Gastroenterology Comment on above: Refill Request (prot bartolo/bentyl) Refill Request Start: 06-10-2022 Orders Only Dulce huang MD Work Phone: General Surgery Comment on above: Prolapsed internal h emorrhoids (Primary Dx) Start: 06-03-2022 Refill Andrew martinez MD Work Phone: [facility] Comment on above: Refill Request Start: 05-01-2022 ambulatory Andrew martinez MD Work Phone: [facility] Comment on above: Question regarding M SEDRICK BLD Start: 04-30-2022 Refill Jose Angel Tomasel DO Work Phone: Gastroenterology Comment on above: Refill Request (Zofr an) Start: 04-28-2022 Refill Jose Angel Umbel DO Work Phone: Gastroenterology Comment on above: Refill Request (bent yl) Start: 04-16-2022 End: 04-16-2022 Patient encounter procedure Sharron Hollis APRN.ASBESTOS MICROSCOPIST Work Phone: Neurology Comment on above: Chronic migraine wit hout aura, intractable, without status migrainosus (Primary Dx) Start: 04-14-2022 Refill Andrew martinez MD Work Phone: [facility] Comment on above: Refill Request Start: 04-13-2022 End: 04-13-2022 Distance Health Andrew Gonzalez MD Work Phone: [facility] Comment on above: Leg cramps (Primary Dx); Anxiety disorder, unspecified type Start: 03-02-2022 Refill Jose Angel Coker DO Work Phone: Gastroenterology Comment on above: Refill Request Start: 03-01-2022 ambulatory Andrew martinez MD Work Phone: [facility] Comment on above: Lorazepam Start: 01-15-2022 Telephone encounter Farncisca Otero APRN.ASBESTOS MICROSCOPIST Work Phone: [facility] Comment on above: Scheduling Start: 01-14-2022 Telephone encounter Francisca Otero APRN.ASBESTOS MICROSCOPIST Work Phone: [facility] Comment on above: New Patient (neck pa in) Start: 01-03-2022 ambulatory Lamont Bautista Work Phone: [facility]rology Comment on [facility]: [facility] Start: 05-25-2018 End: 05-26-2018 Patient encounter procedure ALBINA LUONG Facility:[facility] Start: 05-10-2018 End: 05-10-2018 Patient encounter procedure ALBINA LUONG Facility:[facility] Start: 04-02-2018 End: 04-03-2018 Emergency department patient visit PATRICE PIERCE Facility:[facility] Start: 03-28-2018 End: 03-29-2018 Evaluation and management of inpatient ALBINA LUONG Facility:[facility] Start: 03-23-2018 End: 03-23-2018 Patient encounter procedure MATHIEU DUVALL Facility:[facility] Start: 12-21-2017 End: 12-21-2017 Patient encounter procedure ALBINA LUONG Facility:[facility] Procedures Date Procedure Procedure Detail Performing Clinician Start: 07-24-2025 Radiologic exam ches t [address] Dasia Auguste DO Work Phone: Start: 06-07-[address] Vimal Auguste DO Work Phone: Start: 05-21-2025 [address] empt[address] study Dr. Dasia Auguste DO Work Phone: Start: 03-06-2025 X-ray of chest, PA a nd lateral views Dr. Dasia Auguste DO Work Phone: Start: 01-10-[address] April Auguste DO Work Phone: Comment on above: Performed at: [address] [id number] Director: Carmelita Perkins MD, Phone: [phone] at: [facility] [address] [id number] Director: Satish Curiel PhD, Phone: [phone] Start: 01-10-[address] Vimal Auguste DO Work Phone: Comment on above: *Additional results available. Contact laboratory/see report*The atypical pANCA pattern has been observed in asignificant percentage of patients with ulcerative colitis,primary sclerosing cholangitis and autoimmune hepatitis.Performed at: - [facility] [id number] [place], [place] [id number] Director: Satish Curiel PhD, Phone: [phone] at: - [facility] [address] [id number] Director: Carmelita Perkins MD, Phone: [phone] Start: 01-10-2025 Antibody to centrome re measurement Dr. Dasia Auguste DO Work Phone: Comment on above: Test not performed Start: 01-10-2025 Antibody to extracta ble nuclear antigen measurement Dr. Dasia Auguste DO Work Phone: Comment on above: Test not performed Start: 01-10-2025 Antibody to PINA-[address] Dasia Auguste DO Work Phone: Comment on above: Test not performed Start: 01-10-2025 Antibody to lupus La protein measurement Dr. Dasia Auguste DO Work Phone: Comment on above: Test not performed Start: 01-10-2025 Antibody to SS-A measurement Dr. Dasia Auguste DO Work Phone: Comment on above: Test not performed Start: 01-10-[address] Dasia Auguste DO Work Phone: Comment on above: Test not performed Start: 01-10-[address] Troy Auguste DO Work Phone: Start: 01-10-2025 Endomysial antibody IgA level Dr. Dasia Auguste DO Work Phone: Start: 01-10-[address] Dasia Auguste DO Work Phone: Start: 01-10-2025 Measurement of funga l antibody Dr. Dasia Auguste DO Work Phone: Comment on above: Negative: <45 Equivo adonay: 45-50 Positive: >50 Start: 01-10-2025 FACILITY REHAB DIRECTOR antibody measurement Dr. Dasia Auguste DO Work Phone: Comment on above: Test not performed Start: 01-10-[address] Dasia Auguste DO Work Phone: Start: 11-01-2024 Dual energy X-ray absorptiometry Dr. Dasia Auguste DO Work Phone: Start: 07-26-2024 Adult depression screening assessment James Harry DO Work Phone: Start: 07-18-2024 Us compl joint r-t w/image documentation Nimesh Belkys Eva DO Work Phone: Start: 07-18-2024 Arthrocentesis aspir &/inj major jt/bursa w/us Nimesh Velasquez DO Work Phone: Start: 07-10-2024 Mri any jt lower ext rem w/o contrast joy Goff PA-C Work Phone: Start: 06-25-2024 Radex hip unilateral with pelvis 2-3 views Rosa Goff PA-C Work Phone: Start: 06-06-2024 Echo tthrc r-t 2d w/wom-mode compl spec&colr d Albina Luong MD Work Phone: Start: 05-25-2024 Ecg routine ecg w/le ast 12 lds w/i&r Albina Luong MD Work Phone: Start: 03-02-2024 Us compl joint r-t w/image documentation Nimesh Velasquez DO Work Phone: Start: 03-02-2024 Arthrocentesis aspir &/inj major jt/bursa w/us Nimesh Belkys Eva DO Work Phone: Start: 02-02-2024 Radiologic exam swal low function contrast study Deven Logan MD Work Phone: Start: 01-25-2024 Mri any jt lower ext rem w/o contrast cecilial Mahendra Kunz MD Work Phone: Start: 01-17-[address] Nichole Gonzalez Work Phone: Start: 01-17-2024 Investigation of transfusion reaction Dr. Andrew Gonzalez Work Phone: Start: 06-10-2023 Brncdilat rspse spmt ry pre&post-brncdilat admn James Harry DO Work Phone: Start: 06-01-2023 Radiologic exam ches t 2 views James Harry DO Work Phone: Start: 05-26-2023 Arthrocentesis aspir &/inj major jt/bursa w/us Bijan Uma Cribbins PA-C Work Phone: Start: 05-26-2023 Arthrocentesis aspir &/inj major jt/bursa w/us Bijan J Cribbins PA-C Work Phone: Start: 03-04-2023 Radex hips bilateral with pelvis minimum 5 views Monikadra Arnold PA-C Work Phone: Start: 12-23-2022 Screening mammography Start: 10-13-2022 Ecg routine ecg w/le ast 12 lds w/i&r Albina Luong MD Work Phone: Start: 10-06-2022 Radiologic exam ches t 2 views Francheska Ambrocio PA-C Work Phone: Start: 10-06-2022 COVID WITH FLUA+B, ROUTINE Francheska Denbow PA-C Work Phone: Start: 04-13-2022 Adult depression screening assessment Andrew Gonzalez MD Work Phone: Start: 01-13-2022 Adult depression screening assessment Francisca Otero KNUCKLE STRAP SEWER.ASBESTOS MICROSCOPIST Work Phone: Start: 11-17-2021 End: 11-17-2021 BP scrn no perf at interval Cindy Carter KNUCKLE STRAP SEWER-ASBESTOS MICROSCOPIST Work Phone: Start: 11-17-2021 End: 11-17-2021 Calc BMI abv up kaelyn f/u iCndy yeager KNUCKLE STRAP SEWER-ASBESTOS MICROSCOPIST Work Phone: Start: 11-17-2021 End: 11-17-2021 Current tobacco non-user cad cap copd pv dm Cindy Raul Sepior Work Phone: Start: 11-17-2021 End: 11-17-2021 Docrev cur meds by norberto almaguer [employer] Carter Sepior Work Phone: Start: 11-17-2021 End: 11-17-2021 Pain doc pos and plan Cindy Raul Sepior Work Phone: Start: 11-17-2021 End: 11-17-2021 Patient encounter procedure Cindy Raul Sepior Work Phone: Start: 10-12-2021 Adult depression screening assessment Lamont [employer] Work Phone: Start: 06-17-2021 Colonoscopy Lamonttony Michel [employer] Work Phone: Start: 02-02-2021 Lipid 1996 panel - S noemy or Plasma Andrew Gonzalez MD Work Phone: Start: 07-18-2020 Mammography [facility] [employer] Work Phone: NEGATED: Highlighted rowStart: 11-17-2021 End: 11-17-2021 Documentation of current medications Aime LAU Plan of Treatment Date Care Activity Detail Author Start: 06-17-2031 Colonoscopy COLONOSCOPY [facility] Start: 06-17-2031 COLORECTAL CANCER SCREENING COLORECTAL CANCER SCREENING [facility] Start: 06-17-2031 Screening for malignant neoplasm of colon [facility] Start: 06-26-2028 Urine microalbumin profile [facility] Start: 07-26-2027 Diabetes Screening Diabetes Screening [facility] Start: 11-23-2026 Diabetes Screening Diabetes Screening [facility] Start: 06-01-2026 DIABETES SCREEN DIABETES SCREEN [facility] Start: 06-01-2026 Diabetes Screening Diabetes Screening [facility] Start: 02-02-2026 Lipid 1996 panel - Serum or Plasma Lipid Screening [facility] Start: 02-02-2026 Lipid panel Lipid Screening [facility] Start: 02-02-2026 LIPID SCREEN LIPID SCREEN [facility] Start: 01-19-2026 DIABETES SCREEN DIABETES SCREEN [facility] Start: 01-03-2026 Annual PCP Team Chronic Disease Visit Annual PCP Team Chronic Disease Visit [facility] Start: 11-07-2025 End: 11-07-2025 Patient encounter procedure 11/07/2025 11:20 AM EST Office Visit Allergy [address] [place] [address] Deven Logan MD [address] [facility] General Physician Office Building [address] [place] [address] 6 month follow up Allergy Comment on above: 6 month follow up Start: 11-06-2025 End: 11-06-2025 Patient encounter procedure 11/06/2025 1:00 PM EST Office Visit [facility] [place] [address] [place] [address] Albina Luong MD [address] [place] [address] [place] [phone] 6 month follow up EKG hlk [facility] [place] Comment on above: 6 month follow up EKG hlk Start: 10-17-2025 End: 10-17-2025 Patient encounter procedure 10/17/2025 11:30 AM EST Office Visit Neurology [address] [place] [address] Sharron Hollis, KNUCKLE STRAP SEWER.ASBESTOS MICROSCOPIST [address] [place] [address] BOTOX Neurology Comment on above: BOTOX Start: 08-13-2025 Computed tomography of abdomen and pelvis with contrast Abdomen/Pelvis WITH Contrast [facility] Start: 08-13-2025 Screening mammography SCRN MAMM (CAD)W/KRISTY BILAT [facility] Start: 08-13-2025 Patient encounter procedure Registered Clinical -Outpatient Breast Imaging Work Phone: Start: 07-26-2025 Annual PCP Team Chronic Disease Visit Annual PCP Team Chronic Disease Visit [facility] Start: 07-26-2025 Depression Screening Depression Screening [facility] Start: 07-18-2025 End: 07-18-2025 Patient encounter procedure 07/18/2025 11:30 AM EDT Office Visit Neurology [address] [address] Sharron Hollis APRN.ASBESTOS MICROSCOPIST [address] [place] [address] Return in about 3 months (around 04/17/2025) for Botox. Neurology Comment on above: Return in about 3 months (around 04/17/20) for Botox. Start: 07-16-2025 End: 07-16-2025 Patient encounter procedure 07/16/2025 11:20 AM EDT Office Visit [facility] [address] [place] [address] James Harry DO [address] [place] [address] Medication refills [facility] Comment on above: Medication refills Start: 06-07-2025 Esophageal manometry ESOPHAGUS MOTILITY STUDY [facility] Start: 06-07-2025 Patient discharge [facility] Start: 06-03-2025 Influenza vaccination Influenza Vaccine (#1) [facility] Start: 05-07-2025 [facility] Start: 05-03-2025 End: 05-03-2025 Patient encounter procedure Allergy Comment on above: 6 month follow up Start: 04-18-2025 End: 04-18-2025 Patient encounter procedure 04/18/2025 10:30 AM EDT Office Visit Neurology [address] [address] Sharron Hollis, NEVIN.ASBESTOS MICROSCOPIST [address] [place] [address] Return in about 3 months (around 04/17/2025) for Botox. Neurology Comment on above: Return in about 3 months (around 04/17/20) for Botox. Start: 03-06-2025 X-ray of chest, PA and lateral views Chest PA and Lateral [facility] Start: 02-07-2025 End: 02-07-2025 Patient encounter procedure 02/07/2025 4:00 PM EDT Office Visit [facility] [place] [address] [place] [address] Albina Luong MD [address] [place] [address] [place] [phone] 6 month follow up EKG kh [facility] [place] Comment on above: 6 month follow up EKG kh Start: 01-30-2025 End: 01-30-2025 Patient encounter procedure 01/30/2025 12:50 PM EDT Office Visit [place] [phone] Lucio Glasgow APRN.ASBESTOS MICROSCOPIST [address] [place] [phone] 6 month follow up for wellness exam [facility] Comment on above: 6 month follow up for wellness exam Start: 01-16-2025 End: 01-16-2025 Patient encounter procedure 01/16/2025 11:00 AM EDT Office Visit Neurology [address] [place] [phone] Sharron Hollis APRN.ASBESTOS MICROSCOPIST [address] [place] [address] Return in about 12 weeks (around 01/15/2025) for Botox. Neurology Comment on above: Return in about 12 weeks (around 01/16/20) for Botox. Start: 01-10-2025 Cytoplasmic ANCA Screen [facility] Start: 01-10-2025 [facility] Start: 01-03-2025 End: 01-03-2025 Follow-up encounter 01/03/2025 11:40 AM EDT [facility] [address] [place], [place] [id number] James Harry DO [address] [facility] [place] [address] FOLLOW UP [facility] [place] Comment on above: FOLLOW UP [facility] Start: 12-07-2024 End: 12-07-2024 Patient encounter procedure 12/07/2024 1:00 PM EST Office Visit [facility] [address] [place], [place] [address] Albina Luong MD [address] [phone] 6 month follow up [facility] Comment on above: 6 month follow up Start: 11-29-2024 Annual PCP Team Chronic Disease Visit Annual PCP Team Chronic Disease Visit [facility] Start: 11-29-2024 Covid-19 Vaccine (#1) Covid-19 Vaccine (#1) [facility] Comment on above: Postponed from 1966 (Declined at t his time) Start: 11-29-2024 Covid-19 Vaccine ( season) Covid-19 Vaccine ( season) [facility] Comment on above: Postponed from 06/03/2023 (Declined at t his time) Start: 11-29-2024 Hepatitis B Vaccine (1 of 3 - 19+ 3-dose series) Hepatitis B Vaccine (1 of 3 - 19+ 3-dose series) [facility] Comment on above: Postponed from 1985 (Declined at t his time) Start: 11-29-2024 Hepatitis B Vaccine (1 of 3 - 3-dose series) Hepatitis B Vaccine (1 of 3 - 3-dose series) [facility] Comment on above: Postponed from 1966 (Declined at t his time) Start: 10-30-2024 End: 10-30-2024 Patient encounter procedure 10/30/2024 10:20 AM EST Office Visit Allergy Adult/Pediatric [facility] [address] [place] [address] Deven Logan MD [address] [facility] [place] [address] lvm r/s 08/13 Allergy Adult/Pediatric [facility] Comment on above: lvm r/s 08/13 Start: 10-23-2024 End: 10-23-2024 Patient encounter procedure 10/23/2024 3:30 PM EST Office Visit Neurology [address] [phone] Sharron Hollis APRN.ASBESTOS MICROSCOPIST [address] [place] [address] return in about 12 weeks (around 10/11/2024) for Botox. Neurology Comment on above: return in about 12 weeks (around ) for Botox. Start: 10-12-2024 End: 10-12-2024 Patient encounter procedure 10/12/2024 11:30 AM EST Office Visit Neurology [address] [place] [address] Lamont Michel, [address] [place] [address] 12 weeks for Botox Neurology Comment on above: 12 weeks for Botox Start: 09-10-2024 End: 09-10-2024 Patient encounter procedure 09/10/2024 11:20 AM EST Office Visit Allergy Adult/Pediatric [facility] [address] [place] [address] Deven Logan MD [address] [facility] [place] [address] 4 month follow up Allergy Adult/Pediatric [facility] Comment on above: 4 month follow up Start: 09-06-2024 End: 09-06-2024 ambulatory 09/06/2024 12:30 PM EST OT/PT/Speech Visit [facility] [address] [place], [place] [phone] [place] [address] [place] [phone] Hip Pain [facility] Comment on above: Hip Pain Start: 08-15-2024 End: 08-15-2024 ambulatory 08/15/2024 11:15 AM EST OT/PT/Speech Visit [facility] [address] [place] [address] [place] [address] [place] [address] hip psin [facility] Comment on above: hip psin Start: 08-02-2024 End: 08-02-2024 Patient encounter procedure 08/02/2024 11:00 AM EDT Office Visit [address] [address] James Harry DO [address] [place] [address] 6 month follow up for anxiety [facility] Comment on above: 6 month follow up for anxiety Start: 07-26-2024 End: 10-25-2024 Ferritin [Mass/volume] in Serum or Plasma [facility] Work Phone: Comment on above: Expected: 07/26/2024, Expires: Start: 07-26-2024 End: 10-25-2024 Iron and Iron binding capacity panel - Serum or Plasma [facility] Comment on above: Expected: 07/26/2024, Expires: Start: 07-26-2024 End: 07-26-2024 Patient encounter procedure 07/26/2024 1:00 PM EDT Office Visit [address] [address] James Harry DO [address] [place] [address] 6 month follow up for anxiety [facility] Comment on above: 6 month follow up for anxiety Start: 07-19-2024 End: 07-19-2024 Patient encounter procedure 07/19/2024 11:00 AM EDT Office Visit Neurology [address] [place] [phone] Sharron Hollis APRN.ASBESTOS MICROSCOPIST [address] [place] [address] Botox Neurology Comment on above: Botox Start: 07-18-2024 End: 07-18-2024 Patient encounter procedure 07/18/2024 11:00 AM EDT Office Visit [facility] [place] [address] [place] [address] [place] [address] [place] [address] US GUIDED INJECTION R H[facility] Comment on above: US GUIDED INJECTION R HIP Start: 07-16-2024 End: 07-16-2024 Follow-up encounter 07/16/2024 9:30 AM EDT [facility] [address] [place] [address] Rosa Goff PA-C [address] [place] [address] MRI follow up [facility] Comment on above: MRI follow up Start: 07-10-2024 End: 07-10-2024 Patient encounter procedure 07/10/2024 11:30 AM EDT Appointment [facility] [address] [place] [address] MRI HIP WO IVCON LEFT MRI [facility] Comment on above: MRI HIP WO IVCON LEFT Start: 06-25-2024 End: 06-25-2024 Patient encounter procedure Xray [facility] Comment on above: left hip Lft Hip Pain ruben f rom office appt? Arrived Start: 06-20-2024 End: 06-20-2024 Patient encounter procedure [facility] Comment on above: L HIP left hip Start: 2024 End: 2024 Patient encounter procedure 2024 11:40 AM EDT Office Visit [place] [id number] [place] [address] Nancy JamesDO [address] [place] [address] 6 month follow up for anxiety [facility] Comment on above: 6 month follow up for anxiety Start: 06-06-2024 End: 06-06-2024 Patient encounter procedure 06/06/2024 10:30 AM EDT Appointment [facility] [address] [place] [address] Paroxysmal supraventricular tachycardia (HCC) [I47.10] [facility] Comment on above: Paroxysmal supraventricular tachycardia (HCC) [I47.10] Start: 06-03-2024 Covid-19 Vaccine ( season) Covid-19 Vaccine () [facility] Start: 06-03-2024 Covid-19 Vaccine () Covid-19 Vaccine () [facility] Start: 06-03-2024 Influenza vaccination Influenza Vaccine (#1) [facility] Start: 06-01-2024 ANNUAL PCP TEAM CHRONIC DISEASE VISIT ANNUAL PCP TEAM CHRONIC DISEASE VISIT [facility] Start: 05-25-2024 End: 05-25-2024 Patient encounter procedure [facility] Comment on above: 6 month follow up with 6 month follow up [facility] EKG jt Start: 05-09-2024 End: 08-08-2024 ALGN RESP DISEASE PROF REG 5 [facility] Work Phone: Comment on above: Expected: 05/09/2024, Expires: Start: 05-09-2024 End: 05-09-2024 Patient encounter procedure 05/09/2024 9:20 AM EDT Office Visit Allergy Adult/Pediatric [facility] [address] [place] [address] Deven Logan MD [address] [facility] [place] [address] ?ASTHMA 3 month follow up Allergy Adult/Pediatric [facility] Comment on above: ?ASTHMA 3 month follow up Start: 04-19-2024 End: 04-19-2024 Patient encounter procedure 04/19/2024 10:30 AM EDT Office Visit Neurology [address] [facility] [address] [place], [place] [id number] Lamont Michel, DO [address] [place], [place] [phone] Botox Neurology Comment on above: Botox Start: 03-26-2024 End: 03-26-2024 Patient encounter procedure 03/26/2024 3:15 PM EDT Office Visit Orthopaedics [address] [place] [address] Né[place]or Lake, DO [address] [place], [place] [id number] US RIGHT HIP INJECTION Orthopaedics Comment on above: US RIGHT HIP INJECTION Start: 03-19-2024 End: 03-19-2024 Patient encounter procedure 03/19/2024 9:20 AM EDT Office Visit Allergy Adult/Pediatric [facility] [address] [place], [place] [id number] Deven Loagn MD [address] [facility] [place] [address] 3 month follow up Allergy Adult/Pediatric [facility] Comment on above: 3 month follow up Start: 03-02-2024 End: 03-02-2024 Patient encounter procedure 03/02/2024 8:45 AM EDT Office Visit Orthopaedics [address] [place] [address] [place] [address] [place] [address] US RIGHT HIP INJECTION Orthopaedics Comment on above: US RIGHT HIP INJECTION Start: 02-21-2024 End: 02-21-2024 Patient encounter procedure 02/21/2024 3:00 PM EDT Office Visit Orthopaedics [address] [place] [address] [place] [address] [place] [address] Rt hip - MRI review - Ref Dr. SNOW Orthopaedics Comment on above: Rt hip - MRI review - Ref Dr. SNOW Start: 02-02-2024 End: 02-02-2024 Patient encounter procedure Radiology Comment on above: Gastroesophageal reflux disease, unspeci fied whether esophagitis present [K21.9] Start: 01-25-2024 End: 01-25-2024 Patient encounter procedure 01/25/2024 12:00 PM EDT Appointment MRI [facility] [address] [place] [address] MRI HIP WO IVCON RIGHT [[id number]] MRI [facility] Comment on above: MRI HIP WO IVCON RIGHT [[id number]] Start: 01-17-2024 Patient referral [facility] Work Phone: Start: 12-28-2023 ANNUAL PCP TEAM CHRONIC DISEASE VISIT ANNUAL PCP TEAM CHRONIC DISEASE VISIT [facility] Start: 10-03-2023 Depression Assessment Depression Assessment [facility] Start: 06-03-2023 Influenza vaccination [facility] Start: 04-13-2023 Adult depression screening assessment DEPRESSION SCREENING [facility] Start: 04-13-2023 ANNUAL PCP TEAM CHRONIC DISEASE VISIT ANNUAL PCP TEAM CHRONIC DISEASE VISIT [facility] Start: 01-13-2023 Adult depression screening assessment DEPRESSION SCREENING [facility] Start: 01-11-2023 End: 03-13-2023 Comprehensive metabolic 2000 panel - Serum or Plasma COMP METABOLIC PANEL Lab Routine Medication monitoring encounter Expected: 01/11/2023, Expires: 03/13/2023 [facility] Work Phone: Comment on above: Expected: 01/11/2023, Expires: Start: 10-12-2022 Adult depression screening assessment DEPRESSION SCREENING [facility] Start: 10-03-2022 DEPRESSION ASSESSMENT DEPRESSION ASSESSMENT [facility] Start: 09-09-2022 ANNUAL PCP TEAM CHRONIC DISEASE VISIT ANNUAL PCP TEAM CHRONIC DISEASE VISIT [facility] Start: 06-03-2022 Influenza vaccination INFLUENZA (#1) [facility] Start: 04-13-2022 End: 06-13-2022 25-hydroxyvitamin D3 [Mass/volume] in Serum or Plasma VITAMIN D 25 HYDROXY Lab Routine Leg cramps Expected: 04/13/2022, Expires: 06/13/2022 [facility] Work Phone: Comment on above: Expected: 04/13/2022, Expires: 2 Start: 04-13-2022 End: 06-13-2022 Magnesium [Mass/volume] in Serum or Plasma MAGNESIUM BLD Lab Routine Leg cramps Expected: 04/13/2022, Expires: 06/13/2022 [facility] Work Phone: Comment on above: Expected: 04/13/2022, Expires: 2 Start: 02-09-2022 End: 02-09-2022 Patient encounter procedure Appointment [facility] Work Phone: Start: 11-17-2021 End: 11-17-2021 Patient encounter procedure Appointment [facility] Work Phone: Start: 11-17-2021 End: 11-17-2021 Radex spine cervical 2 or 3 views XR CERVICAL 2-3 VWS AP/LAT [facility] Work Phone: Start: 10-03-2021 DEPRESSION ASSESSMENT DEPRESSION ASSESSMENT [facility] Start: 07-18-2021 Mammography [facility] Start: 07-18-2021 Screening for malignant neoplasm of breast Mammogram Screening [facility] Start: 04-02-2021 DIABETES SCREEN DIABETES SCREEN [facility] Start: 11-22-2018 Patient encounter procedure Ambulatory Facility:[facility] Start: 08-03-2017 End: 08-03-2017 Occupational Therapy General Occupational Therapy [facility], [address] [place] [address], [address] [facility] Work Phone: Start: 07-20-2017 End: 07-20-2017 Appointment Appointment [facility] Start: 07-20-2017 End: 07-20-2017 Radex hand minimum 3 views X-Ray, Hand [facility] Work Phone: Start: 07-15-2017 End: 07-15-2017 Appointment [facility] Start: 06-30-2017 End: 06-30-2017 Appointment Appointment [facility] Start: 06-03-2017 End: 06-03-2017 Appointment Appointment [facility] Work Phone: Start: 11-16-2014 PNEUMOCOCCAL (2 - PCV) PNEUMOCOCCAL (2 - PCV) [facility] Start: 11-16-2014 Pneumococcal vaccination Pneumococcal Vaccine (2 - PCV) [facility] Start: 2011 COLOGUARD (FIT-DNA) COLOGUARD (FIT-DNA) [facility] Start: [address] COLONOGRAPHY [facility] Start: 2011 FECAL OCCULT BLOOD FECAL OCCULT BLOOD [facility] Start: 2011 Screening for malignant neoplasm of colon [facility] Start: 2011 SIGMOIDOSCOPY SIGMOIDOSCOPY [facility] Start: 1985 Hepatitis B Vaccine (1 of 3 - 19+ 3-dose series) Hepatitis B Vaccine (1 of 3 - 19+ 3-dose series) [facility] Start: 1984 Depression Screening Depression Screening [facility] Start: 1984 SPIROMETRY SPIROMETRY [facility] Start: 1971 COVID-19 VACCINE (#1) COVID-19 VACCINE (#1) [facility] Start: 1971 COVID-19 VACCINE (1) COVID-19 VACCINE (1) [facility] Start: 1966 COVID-19 VACCINE (#1) COVID-19 VACCINE (#1) [facility] Start: 1966 HEPATITIS B (1 of 3 - 3-dose series) HEPATITIS B (1 of 3 - 3-dose series) [facility] Start: 1966 Hepatitis B Vaccine (1 of 3 - 3-dose series) Hepatitis B Vaccine (1 of 3 - 3-dose series) [facility] Beef IgE Ab [Units/volume] in Serum [facility] Chocolate IgE Ab [Units/volume] in Serum [facility] Codfish IgE Ab [Units/volume] in Serum [facility] [place] IgE Ab [Units/volume] in Serum [facility] Cow milk IgE Ab [Units/volume] in Serum [facility] End: 11-29-2025 DBT Breast - bilateral screening JEROD SCREENING W KRISTY Radiology Routine Encounter for screening mammogram for breast cancer 1 Occurrences starting 10/30/2024 until 11/29/2025 [facility] Work Phone: Comment on above: 1 Occurrences starting 10/30/2024 until 11/29/2025 ECG COMPLETE ECG COMPLETE ECG Routine Dizziness Ordered: 06/01/2023 [facility] Work Phone: Comment on above: Ordered: 06/01/2023 End: 05-25-2025 Echocardiography ECHO Cardiology Routine Paroxysmal supraventricular tachycardia (HCC) 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 Sinus tachycardia PVC (premature ventricular contraction) Palpitations 1 Occurrences starting 05/25/2024 until 05/25/2025 [facility] Work Phone: Comment on above: 1 Occurrences starting 05/25/2024 until 05/25/2025 Elastase.pancreatic [Presence] in Stool [facility] EVENT MONITOR EVENT MONITOR Ca rdiology Routine Palpitations Paroxysmal supraventricular tachycardia (HCC) Ordered: 05/18/2023 [facility] Work Phone: Comment on above: Ordered: 05/18/2023 Food RAST [facility] End: 08-04-2024 JEROD SCREENING JEROD SCREENING Radiology Routine Encounter for screening mammogram for breast cancer 1 Occurrences starting 07/06/2023 until 08/04/2024 [facility] Work Phone: Comment on above: 1 Occurrences starting 07/06/2023 until 08/04/2024 End: 12-28-2024 MG Breast Screening JEROD SCREENING Radiology Routine Encounter for screening mammogram for malignant neoplasm of breast 1 Occurrences starting 11/29/2023 until 12/28/2024 [facility] Work Phone: Comment on above: 1 Occurrences starting 11/29/2023 until 12/28/2024 End: 07-25-2025 MR Hip - left WO contrast MRI HIP WO IVCON LEFT Radiology Routine Pain of left hip 1 Occurrences starting 06/25/2024 until 07/25/2025 [facility] Work Phone: Comment on above: 1 Occurrences starting 06/25/2024 until 07/25/2025 End: 01-07-2025 MR Hip - right WO contrast MRI HIP WO IVCON RIGHT Radiology Routine Pain of right hip 1 Occurrences starting 12/09/2023 until 01/07/2025 [facility] Work Phone: Comment on above: 1 Occurrences starting 12/09/2023 until 01/07/2025 Nuclear Ab [Presence ] in Serum [facility] Patient referral [facility] Work Phone: Peanut IgE Ab [Units/volume] in Serum [facility] Pork IgE Ab [Units/volume] in Serum [facility] Protein measurement [facility] Radionuclide gastric emptying study [facility] Radionuclide gastric emptying study [facility] [place] IgE Ab [Units/volume] in Serum [facility] End: 08-27-2023 Screening mammography bi 2-view breast inc cad JEROD SCREENING Radiology Routine Encounter for screening mammogram for breast cancer 1 Occurrences starting 07/28/2022 until 08/27/2023 [facility] Work Phone: Comment on above: 1 Occurrences starting 07/28/2022 until 08/27/2023 Shrimp IgE Ab [Units/volume] in Serum [facility] Soybean IgE Ab [Units/volume] in Serum [facility] End: 06-30-2024 SPIROMETRY - BASELINE AND POST DILATOR SPIROMETRY - BASELINE AND POST DILATOR PFT Routine Chronic cough Mild intermittent asthma, unspecified whether complicated 1 Occurrences starting 06/01/2023 until 06/30/2024 [facility] Work Phone: Comment on above: 1 Occurrences starting 06/01/2023 until 06/30/2024 Tuna IgE Ab [Units/volume] in Serum [facility] End: 04-02-2024 US ASP/INJ HIP JT/BURSA LEFT US ASP/INJ HIP JT/BURSA LEFT Radiology Routine Lateral pain of left hip 1 Occurrences starting 03/04/2023 until 04/02/2024 [facility] Work Phone: Comment on above: 1 Occurrences starting 03/04/2023 until 04/02/2024 End: 04-02-2024 US ASP/INJ HIP JT/BURSA RIGHT US ASP/INJ HIP JT/BURSA RIGHT Radiology Routine Lateral pain of right hip 1 Occurrences starting 03/04/2023 until 04/02/2024 [facility] Work Phone: Comment on above: 1 Occurrences starting 03/04/2023 until 04/02/2024 US Hip - right US HIP RT (POC) MAHNAZ USE ONLY Imaging Diagnostic Routine Pain of right hip Acetabular labrum tear, right, initial encounter Ordered: 07/18/2024 [facility] Work Phone: Comment on above: Ordered: 07/18/2024 Wheat IgE Ab [Units/volume] in Serum [facility] Whole Egg IgE Ab [Units/volume] in Serum [facility] End: 01-27-2024 XR HIP BILATERAL 5V PEL/AP/LAT EACH HIP XR HIP BILATERAL 5V PEL/AP/LAT EACH HIP Radiology Routine Pain 1 Occurrences starting 12/28/2022 until 01/27/2024 [facility] Work Phone: Comment on above: 1 Occurrences starting 12/28/2022 until 01/27/2024 XR HIP BILATERAL 5V PEL/AP/LAT EACH HIP XR HIP BILATERAL 5V PEL/AP/LAT EACH HIP Radiology Routine Lateral pain of right hip Lateral pain of left hip 12/09/2023 1:19 PM EST [facility] Work Phone: End: 07-14-2025 XR Pelvis and Hip - left AP and Lateral frog XR HIP GENERAL 3V PELV/AP/LAT LEFT Radiology Routine Pain 1 Occurrences starting 06/14/2024 until 07/14/2025 [facility] Work Phone: Comment on above: 1 Occurrences starting 06/14/2024 until 07/14/2025 End: 07-19-2025 XR Pelvis and Hip - left AP and Lateral frog XR HIP GENERAL 3V PELV/AP/LAT LEFT Radiology Routine Pain in left hip 1 Occurrences starting 06/19/2024 until 07/19/2025 [facility] Work Phone: Comment on above: 1 Occurrences starting 06/19/2024 until 07/19/2025 End: 03-22-2025 XR Pelvis and Hip - right AP and Lateral frog XR HIP GENERAL 3V PELV/AP/LAT RIGHT Radiology Routine Pain of right hip 1 Occurrences starting 02/21/2024 until 03/22/2025 [facility] Work Phone: Comment on above: 1 Occurrences starting 02/21/2024 until 03/22/2025 [facility] Immunizations Immunization Date Immunization Notes Care Provider Rinku amaya 07-26-2024 influenza, seasonal, injectable [facility] DO Work Phone: [facility] 07-26-2024 influenza virus vacc ine, unspecified formulation Deven Logan MD Work Phone: [facility] 06-19-2023 influenza, injectabl e, quadrivalent, preservative free [facility] DO Work Phone: [facility] Work Phone: 06-19-2023 pneumococcal conjuga te (PCV20) vaccine, 20 valent (PREVNAR 20) [facility] DO Work Phone: [facility] Work Phone: 06-19-2023 influenza virus vacc ine, unspecified formulation Lamont Michel DO Work Phone: [facility] 09-09-2021 influenza, injectabl e, quadrivalent, contains preservative Lamont Michel DO Work Phone: [facility] 09-09-2021 influenza virus vacc ine, unspecified formulation Andrew Gonzalez MD Work Phone: [facility] 07-17-2020 influenza, injectabl e, quadrivalent, preservative free Lamont Michel DO Work Phone: [facility] Work Phone: 11-29-2019 zoster vaccine recombinant Lamont Michel DO Work Phone: [facility] 08-06-2019 zoster vaccine recombinant Lamont Michel DO Work Phone: [facility] Work Phone: 06-30-2019 influenza virus vacc ine, unspecified formulation Lamont Michel DO Work Phone: [facility] Work Phone: 06-29-2019 influenza, injectabl e, quadrivalent, preservative free Lamont Michel DO Work Phone: [facility] Work Phone: 06-26-2018 influenza, injectabl e, quadrivalent, contains preservative Lamont Michel DO Work Phone: [facility] 06-26-2018 tetanus toxoid, redu kelvin diphtheria toxoid, and acellular pertussis vaccine, adsorbed Lamont Michel DO Work Phone: [facility] 07-21-2016 influenza, seasonal, injectable Lamont Michel DO Work Phone: [facility] 11-16-2013 pneumococcal polysaccharide vaccine, 23 valent Lamont Michel DO Work Phone: [facility] 07-01-2012 influenza virus vacc ine, unspecified formulation Lamont Michel DO Work Phone: [facility] Work Phone: 08-20-2011 influenza virus vacc ine, unspecified formulation Lamont Michel DO Work Phone: [facility] Work Phone: 07-16-2009 influenza virus vacc ine, unspecified formulation Lamont Michel DO Work Phone: [facility] 08-07-2008 influenza virus vacc ine, unspecified formulation Lamont Michel DO Work Phone: [facility] Work Phone: 08-02-2006 influenza virus vacc ine, unspecified formulation Lamont Michel DO Work Phone: [facility] Work Phone: 08-10-2005 influenza virus vacc ine, unspecified formulation Lamont Michel DO Work Phone: [facility] Work Phone: Payers Date Payer Category Payer Private Health Insurance [id number] 2024 Unknown [id number] 2024 Self-pay [id number] 2024 Blue Cross Blue Shield BLUE CARD PPO OOS [id number] 2024 Unknown [id number] 2023 Unknown [id number] 2020 Private Health Insurance [id number] 2020 Unknown [id number]. [id number] 2020 Unknown [id number]. [id number] 2018 Medicaid [facility] [place] [id number] 2018-Present [phone] [address] [place] [address] Medicaid [id number] 2018 Medicaid [id number]. [id number] 2017 Medicaid [id number] 1966 Unknown [id number] 2.16.840.1.508265.3.579.2. 278 1966 Unknown [id number] 2.16.840.1.356479.3.579.2. 278 1966 Unknown [id number] 2.16.840.1.106317.3.579.2. 278 1966 Unknown [id number] 2.16.840.1.361060.3.579.2. 278 1966 Unknown [id number] 2.16.840.1.173865.3.579.2. 278 1966 Unknown [id number] 2.16.840.1.721471.3.579.2. 278 1966 Unknown [id number] 2.16.840.1.904223.3.579.2. 278 Medicaid [id number] Private Health Insurance [id number] Unknown [id number] Unknown [id number] 2.16.840.1.541777.3.579.2. 462 Unknown [id number] 2.16.840.1.161491.3.579.2. 462 Unknown [id number] 2.16.840.1.382014.3.579.2. 462 Unknown [id number] 2.16.840.1.497462.3.579.2. 462 Unknown [id number] 2.16.840.1.499853.3.579.2. 462 Unknown [id number] 2.16.840.1.043732.3.579.2. 462 Unknown [id number] 2.16.840.1.411492.3.579.2. 462 Unknown [id number] 2.16.840.1.588065.3.579.2. 462 Unknown [id number] 2.16.840.1.091717.3.579.2. 462 Unknown [id number] 2.16.840.1.717285.3.579.2. 462 Unknown [id number] 2.16.840.1.313631.3.579.2. 462 Unknown [id number] 2.16.840.1.583111.3.579.2. 462 Unknown [id number] 2.16.840.1.241233.3.579.2. 462 Unknown [id number] 2.16.840.1.222673.3.579.2. 462 Unknown [id number] 2.16.840.1.152477.3.579.2. 462 Social History Date Type Detail Facility Start: 09-10-2021 End: 01-17-2024 Assertion Unknown if ever smoked [facility] Work Phone: Start: 05-20-2011 End: 07-24-2025 Tobacco smoking status NHIS Never smoked tobacco [facility] Start: 09-09-2021 End: 05-03-2025 Alcohol intake Current drinker of alcohol (finding) [facility] Start: 02-08-2020 End: 12-26-2022 History SDOH Alcohol Frequency 4 [facility] Start: 02-08-2020 End: 12-26-2022 History SDOH Alcohol Std Drinks 1 [facility] Start: 02-08-2020 End: 12-26-2022 History SDOH Social Connections Phone 5 [facility] Start: 02-08-2020 End: 12-26-2022 History SDOH Social Connections Yazidism 3 [facility] Start: 02-08-2020 End: 12-26-2022 History SDOH Social Connections Membership 2 [facility] Start: 02-08-2020 History SDOH Social Connections Living 8 [facility] Start: 02-08-2020 Education 21 [facility] Start: 1965 Sex Assigned At Female [facility] Start: 02-01-2022 End: 09-01-2022 Exposure to SARS-CoV-2 (event) Not sure [facility] Start: 05-20-2011 End: 07-13-2022 Tobacco use and exposure Smokeless tobacco non-user [facility] Work Phone: Start: 05-24-2022 End: 06-10-2022 Exposure to SARS-CoV-2 (event) Unable to assess [facility] Start: 08-30-2018 Spouse/ Signif icant Other [facility] Start: 12-26-2022 End: 03-04-2023 History of Social function [facility] Start: 12-26-2022 End: 03-04-2023 Social connection and isolation panel [facility] Do you belong to any clubs or organizations such as zoroastrian groups, unions, fraternal or athletic groups, or school groups? No [facility] Are you now , , , , never or living with a partner? [facility] How often to you hav e a drink containing alcohol? 2-3 time sa week [facility] How many standard drinks containing alcohol do you have on a typical day? 1 or 2 [facility] How often do you hav e 6 or more drinks on 1 occasion? Less than monthly [facility] Start: 09-03-2012 How hard is it for y ou to pay for the very basics like food, housing, medical care, and heating Not hard at all [facility] Do you feel stress - tense, restless, nervous, or anxious, or unable to sleep at night because your mind is troubled all the time - these days [OSQ] Only a little [facility] (I/We) worried susan er (my/our) food would run out before (I/we) got money to buy more. Never true [facility] Start: 12-10-2020 Gender identity Identifies as female gender (finding) [facility] Start: 12-10-2020 Sexual orientation Heterosexua l (finding) [facility] How often do you hav e 6 or more drinks on 1 occasion? Never [facility] Do you feel stress - tense, restless, nervous, or anxious, or unable to sleep at night because your mind is troubled all the time - these days [OSQ] To some extent [facility] Do you belong to any clubs or organizations such as zoroastrian groups, unions, fraGlobal Filmdemic or athletic groups, or school groups? Yes [facility] Do you feel stress - tense, restless, nervous, or anxious, or unable to sleep at night because your mind is troubled all the time - these days [OSQ] Not at all [facility] Start: 01-15-2025 Sex Female (finding) [facility] NEGATED: Highlighted rowStart: 11-17-2021 End: 11-17-2021 Employment detail Employment detail [facility] Work Phone: Medical Equipment Procedure Code Equipment Code Equipment Origin al Text Equipment Identifier Dates Sling Monarc Pubovaginal Hammock Suture Subfascial Female - [id number] Start: 11-18-2015 Comment on above: Description: Monarc Subfascial Hammock Goals Date Patient Goal Desired Activity /State Personal health goal Functional Status Date Assessment Result Facility 03-29-2018 Are you deaf, or do you have serious difficulty hearing No 03/29/2018 10:01 AM Amalia Lopes, RN No [facility] 03-29-2018 Are you blind, or do you have serious difficulty seeing, even when wearing glasses No 03/29/2018 10:01 AM Amalia Lopes RN No [facility] 03-29-2018 Do you have serious difficulty walking or climbing stairs No 03/29/2018 10:01 AM Amalia Lopes RN No [facility] 03-29-2018 Do you have difficul ty dressing or bathing No 03/29/2018 10:01 AM Amalia Lopes RN No [facility] 03-29-2018 Because of a physica l, mental, or emotional condition, do you have difficulty doing errands alone such as visiting a physician's office or shopping No 03/29/2018 10:01 AM Amalia Lopes RN No [facility] Mental Status Date Assessment Result Facility 06-07-2025 Cognitive function Awake;Alert;A ppropriate; Follows Commands [facility] Work Phone: 03-29-2018 Because of a physica l, mental, or emotional condition, do you have serious difficulty concentrating, remembering, or making decisions No 03/29/2018 10:01 AM Amalia Lopes RN No [facility] Clinical Notes 04-17-2014 to 07-24-2025 Note Date & Type Note Facility 07-24-2025 Radiology Diagnostic study note [facility] Imaging Services [address] [place] [id number] Chest PA and Lateral MR#: [id number] Acct: [id number] Name: MARCIAL YEUNG Rep #: [id number] : 1965 F 60 From: Compa Marcelo MD PCP: Dr. Dasia Auguste DO Status: DEP AMB Study:Chest PA and Lateral Date of Exam: 07/24/25 Exam# [id number] Ordering Dr: April Auguste ra, DO PROCEDURE: CHEST PA AND LATERAL 07/24/2025 REASON FOR EXAM: UNEXPLAINED WEIGHT LOSS, HX ASTHMA TECHNIQUE: Procedure Code: RADCXR Modality: DX Procedure: CHEST PA AND LATERAL COMPARISON: Chest x-ray of 03/06/2025. RAD/Chest PA and Lateral IMPRESSION: Right upper quadrant abdominal surgical clips are again seen. Prior cervical surgery is again partially visualized. Lungs appear clear of acute disease, and unchanged. No pleural effusion or pneumothorax is noted. The cardiomediastinal silhouette is within the normal range, and unchanged. Mild thoracic spine degenerative changes are seen. No acute osseous change is evident. Reading Location: [id number] CC: Dr. 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 [facility] 07-18-2025 Note HNO ID: [id number] Author: SHARRON HOLLIS APRN.ASBESTOS MICROSCOPIST Service: ? Author Type: Nurse Practitioner Type: Progress Notes Filed: 07/18/2025 12:20 Note Text: Headache Center Follow-up Visit Impression: Chronic migraine without aura, intractable, without status migrainosus (primary encounter diagnosis) Marcial Lai Yeung has been previously approved for an Oral Calcitonin Gene-Related Peptide Receptor Antagonist (GEPANT) Rimegepant for the treatment of abortive use. The patient has demonstrated the following: Provider attests patient has had a positive clinical response: Yes Patient will not use with another Oral Calcitonin Gene-Related Peptide Receptor Antagonist (GEPANT): Yes Patient's quality of life and ability to perform ADLs has improved: Yes The patient has tried and failed the following : We suggest the patient continue treatment with GEPANT Rimegepant. The following preventative medications have been tried for three or more months without benefit: Anti-Convulsant Gabapentin (Neurontin) Topiramate (Topamax, Trokendi XL, Qudexy) Anti-Depressant and Antipsychotic Amitriptyline (Elavil) Bupropion (Wellbutrin) Citalopram (Celexa) Fluoxetine (Prozac) Venlafaxine (Effexor) Blood Pressure Metoprolol (Lopressor,Toprol XL) Propranolol (Inderal) Botulinum Toxin Onabotulinum Toxin A (Botox) Supplements Magnesium The following abortive medications have been tried but require high frequency use which can lead to Medication Overuse Headache: Analgesic Hydrocodone/Acetaminophen (Vicodin, [place]) Hydromorphone (Dilaudid) Meloxicam (Mobic) Meperidine (Demerol) Oxycodone Oxycodone/Acetaminophen (Percocet) Tramadol (Ultram) Anti-Anxiety Lorazepam (Ativan) Anti-Migraine Rizatriptan (Maxalt) Sumatriptan (Imitrex, Sumavel) GEPANTS Ubrogepant (Ubrelvy) Rimegepant (Nurtec) Over the Counter Medications Acetaminophen (Tylenol) Acetaminophen/Aspirin/Caffeine (Excedrin, Goody?s) Aspirin Ibuprofen (Advil, Motrin) Naproxen sodium (Aleve) Follow-Up Onabotulinum Toxin A (BotoxTM) for Migraine Indication: Chronic Intractable Migraine Referral Expiration: 04/08/2026 Prior to the initiation of the FIRST treatment with Onabotulinum Toxin A, the patient reported the following average headache frequency over the past 3 MONTHS: Number of moderate-severe migraine days/month: 25 Number of mild migraine days/month: 0 Number of headache free days/month: 5 (120 headache-free hours) After treatment with Onabotulinum Toxin A: Number of moderate-severe migraine days/month: 2 Number of mild migraine days/month: 6 Number of headache free days/month: 22 (528 headache-free hours) Patient reduction in overall migraine days: Yes Patient reduction in moderate-severe migraine days: Yes Patient reduction of headache hours by 100 hours or more: Yes (reduction of 408 hours) Individual has obtained clinical benefit deemed significant by individual or prescriber (Y/N): Yes Patient's quality of life and ability to perform ADLs has improved (Y/N): Yes Side effects: none The patient has been assessed for disorders which could contribute to breathing or swallowing difficulty, and there is no contraindication with PREEMPT Botox. There is no documented allergic reaction/hypersensitivity to any botulinum toxin and there is no active infection at proposed injection site. HEADACHE SCORES: 10/17/2024 01/15/2025 04/16/2025 Headache Questions ER visits since last office visit: 0 0 0 Hospital stays since last office visit 0 0 0 Limited ADLs in the last month: 0 0 0 Days missed from work or school in the last month: 0 0 0 Days headache pain free in the last month: 20 20 24 Days per month with ALL of the following symptoms - decreased productivity, light sensitivity and nausea: 0 2 3 Initial improvement of headache after botox injection at last visit: Much improved Very much improved Very much improved PRN medication usage in the last month: 5 6 Patient impression of improvement since last visit: No change No change Minimally improved 10/17/2024 01/15/2025 04/16/2025 HIT-6 HIT-6 40 (Little or no impact) 42 (Little or no impact) 44 (Little or no impact) 12/29/2024 01/15/2025 04/16/2025 KEYONNA - 2/7 SCORES KEYONNA-2 Score 0 0 0 KEYONNA-7 Score 0 10/17/2024 01/15/2025 04/16/2025 Migraine Specific QOL - Higher scores indicate better HRQL Role Function-Restrictive Transformed Score (range: 0-100) 97.14 100 97.14 Role Function-Preventive Transformed Score (range: 0-100) 100 95 100 Emotional Function Transformed Score (range: 0-100) 100 100 100 04/16/2025 01/15/2025 10/17/2024 PHQ-9 Score 4 3 2 BP 150/84 Pulse 73 Wt 58.1 kg (128 lb) LMP 05/06/2014 BMI 23.41 kg/m? Patient name: Marcial Yeung : 1965 ALLERGIES Allergen Reactions 2-Octyl Cyanoacryla* Rash Blistering contact reaction Citalopram Other: See Comments Did not tolerate, ? Mental status change (more content not included)... [facility] 07-16-2025 Note HNO ID: [id number] Author: JAMES HARRY DO Service: ? Author Type: Physician Type: Progress Notes Filed: 07/16/2025 11:47 Note Text: Periodic Health Examination Patient Name: Marcial Yeung Today's Date: July 16, 2025 CC: Wellness exam HPI: Marcial Yeung is an 60 year old female who presents for: Wellness exam Medical, surgical, family and social histories reviewed and updated below. Marcial is a 60-year-old female with a history of GERD, presenting for evaluation of unintentional weight loss. Unintentional Weight Loss: - Unintentional weight loss since March, losing approximately two pant sizes. - Weight loss began after a dln-lyo-f-half-week illness in March, described as a "cold type" illness. - Initially lost about 2 lbs per week, now losing about 1 lb per week; no weight loss this week. - Denies hematochezia. - No significant dietary changes, but has been eating more fish and reduced Red Bull consumption. 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 - Denies drug use; taking prescribed medications. - Denies recent chest X-ray; last mammogram in September. - Denies current use of tanning beds. - Having issues with anxiety surrounding stress with her son. Would like a refill on her ativan. Had 30 tabs that lasted a few years. 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 - Underwent esophageal manometry and gastric emptying study, both showing abnormalities. - Taking pantoprazole and Pepcid AC at bedtime. - Elevates the head of the bed to manage symptoms. - Experiences frequent nausea. - Allergic to beef. - Last endoscopy 4 years ago showed active colitis. - Reports postnasal drainage, attributed to acid reflux by an emergency medical technician. Latest Ref Rng 07/26/2024 07/12/2025 Protein, Total 6.3 - 8.0 g/dL 6.7 Albumin 3.9 - 4.9 g/dL 4.5 Calcium 8.5 - 10.2 mg/dL 9.5 9.6 Bilirubin, Total 0.2 - 1.3 mg/dL 0.2 Alkaline Phosphatase 34 - 123 U/L 61 AST 13 - 35 U/L 22 ALT 7 - 38 U/L 36 Glucose 74 - 99 mg/dL 96 88 BUN 7 - 21 mg/dL 14 9 Creatinine 0.58 - 0.96 mg/dL 0.99 (H) 0.81 Sodium 136 - 144 mmol/L 140 132 (L) Potassium 3.7 - 5.1 mmol/L 4.3 4.5 Chloride 98 - 107 mmol/L 104 98 CO2 22 - 30 mmol/L 27 22 Anion Gap 8 - 15 mmol/L 9 12 eGFR >=60 mL/min/1.73m? 66 84 WBC 3.70 - 11.00 k/uL 9.46 RBC 3.90 - 5.20 m/uL 4.31 Hemoglobin 11.5 - 15.5 g/dL 12.5 Hematocrit 36.0 - 46.0 % 39.7 MCV 80.0 - 100.0 fL 92.1 MCH 26.0 - 34.0 pg 29.0 MCHC 30.5 - 36.0 g/dL 31.5 RDW-CV 11.5 - 15.0 % 13.0 Platelet Count 150 - 400 k/uL 371 MPV 9.0 - 12.7 fL 10.2 Absolute nRBC <0.01 k/uL <0.01 Iron 41 - 186 ug/dL 81 TIBC 232 - 386 ug/dL 338 Transferrin Saturation 15.0 - 57.0 % 24.0 Ferritin 14.7 - 205.1 ng/mL 53.3 TSH 0.270 - 4.200 mIU/L 1.470 Legend: (H) High (L) Low PDMP website checked and validated. All prescriptions have been APPROPRIATELY filled. No suspicious activity was identified. 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; indication: symptomatic PSVT with WPW syndrome Other anxiety states Palpitations Paroxysmal supraventricular tachycardia (HCC) see "WPW Syndrome" Primary insomnia 06/11/2015 Sinus tachycardia 10/20/2023 Stress incontinence, female Unspecified asthma(493.90) 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; attempt at catheter ablation 11/2016 failed; she continues to experience intermittent palpitations and tachycardia despite treatment with flecainide; successful RFCA 03/2018 PAST SURGICAL HISTORY Procedure Laterality Date BLADDER SURGERY HX 11/2015 bladder sling BREAST AUGMENTATION WITH IMPLANT 11/2007 Breast augmentation CARDIAC MONITORING CONTINUOUS 05/25/2018 96 hours monitoring: sinus rhythm, sinus tachycardia; patient event activations and/or reported symptoms correlated with sinus rhythm and sinus tachycardia DELIVERY ONLY 85, 88,92 , low cervical X3 COLONOSCOPY 06/2021 EGD 2019 F LIGATION OF HEMORRHOID(S) 10/07/2020 IUD INSERTION ([facility] [employer])_*FL 08/30/2007 Mirena - removed LAPAROSCOPY SURG CHOLECYSTECTOMY 11/16/2017 [facility] OOPHORECTOMY, PART/TOTAL UNILAT/BILAT 2016 PAST SURGICAL HISTORY OF 09/2021 C4-C6 disc replacement S PK LAVH [id number] 2013 lavh RICKY biltareal salpingectomy SVT ABLATION W/ EP COMPLETE 11/24/2016 [facility], Dr. Mcknight; lawanda (more content not included)... [facility] 07-02-2025 Note Patient Outreach (IN TMMN) MARCIAL YEUNG ([id number]) 1965 F NFR Date Time Provider Department 07/02/25 JAMES HARRY During your visit today, we recorded the following information about you: Allergies As of Date: 07/02/2025 Noted Allergy Reaction 2-OCTYL CYANOACRYLATE 05/25/2021 2 - Rash Comments: Blistering contact reaction CITALOPRAM 09/07/2017 14 - Other: See Comments Comments: Did not tolerate, ? Mental status changes LIQUID BANDAGE (ENBUCRILATE) 12/27/2017 2 - Rash Comments: blisters and rash PROPRANOLOL 01/25/2007 1 - Mental Status Change TETRACYCLINE 09/08/2005 8 - GI Upset Comments: Abdominal pain/cramping Date Reviewed: 05/03/2025 Reviewed by: Deven Logan MD - Fully Assessed Visit Diagnosis:Medication management [Z79.899] Order(s):BASIC METABOLIC PANEL [SQBMP] Order #: [id number] FUTURE Prescriptions as of 07/05/2025 - traMADol (ULTRAM) 50 mg tablet Take 1 tablet by mouth every 12 hours for 30 days. - traZODone (DESYREL) 50 mg tablet TAKE 1 AND 1/2 TABLETS BY MOUTH EVERY NIGHT AT BEDTIME - azelastine 0.1% nasal spray Use 2 sprays in each nostril two times a day. - ARNUITY ELLIPTA 200 mcg/actuation inhaler Inhale 1 puff as instructed once daily. - gabapentin (NEURONTIN) 100 mg capsule Take 2 capsules by mouth daily at bedtime. - Ipratropium [place] (ATROVENT) 21 mcg (0.03 %) nasal spray Use 2 sprays in the nose three times a day. - ipratropium bromide (ATROVENT) 42 mcg (0.06 %) nasal spray Use 2 sprays in the nose three times a day as needed. - levalbuterol tartrate HFA 45 mcg/actuation inhaler Inhale 1-2 puffs as instructed every 4 hours as needed for wheezing/shortness of breath. - montelukast (SINGULAIR) 10 mg tablet Take 1 tablet by mouth daily at bedtime. - rimegepant (NURTEC ODT) 75 mg disintegrating tablet dissolve 1 tablet orally AT ONSET OF MIGRAINE and may repeat ONCE PER 24 HOURS IF NEEDED - pantoprazole DR (PROTONIX) 40 mg tablet Take 1 tablet by mouth two times a day. - fexofenadine (LAURA ALLERGY) 180 mg tablet Take 1 tablet by mouth once daily. - DULoxetine (CYMBALTA) 20 mg capsule Take 20 mg by mouth every morning. - zaleplon (SONATA) 10 mg capsule bring to sleep study - Estradiol (VAGIFEM) 10 mcg vaginal tablet INSERT 1 TABLET VAGINALLY TWICE EVERY 7 DAYS - ondansetron (ZOFRAN) 8 mg tablet Take 8 mg by mouth three times a day as needed. - tiZANidine (ZANAFLEX) 4 mg tablet Take 1 tablet by mouth every 8 hours as needed. prn - codeine-guaiFENesin (ROBITUSSIN AC) 10-100 mg/5 mL syrup - primidone (MYSOLINE) 50 mg tablet Take 50 mg by mouth four times daily. Taking 1/4 to 1/2 tab currently - metoprolol succinate ER (TOPROL XL) 25 mg 24 hr tablet Take 1 tablet by mouth every afternoon. - IMVEXXY MAINTENANCE PACK 10 mcg inst INSERT 1 TABLET VAGINALLY 2 TIMES A WEEK - levalbuterol (XOPENEX) 1.25 mg/3 mL nebulizer solution Inhale 1 ampule via nebulizer 4x daily as needed. - Nebulizer and Compressor For Neb (PORTABLE NEBULIZER SYSTEM) 1 Each every 4 hours as needed. - cephALEXin (KEFLEX) 250 mg capsule Take 250 mg by mouth once daily as needed (after intercourse). - ondansetron (ZOFRAN) 4 mg tablet take 1 tablet by mouth every 8 hours if needed for nausea and vomiting - dicyclomine (BENTYL) 10 mg capsule Take 1 capsule by mouth three times daily. - estradiol (NOBLE, VIVELLE-DOT) 0.025 mg/24 hr 1 Patch every Tuesday and Tuesday. Problem List As Of Date 07/02/2025 Noted Resolved Asthma [J45.909] Abnormal involuntary movements(781.0) [R25.8, R*12/06/2005 11/13/2015 Adjustment disorder with depressed mood [F43.21]12/06/2005 10/19/2019 Acute gastritis without mention of hemorrhage [*12/06/2005 11/13/2015 ASCUS favor benign [R87.610] 01/29/2009 11/17/2011 CERVICAL HPV DNA POSITIVE [R87.810] 01/29/2009 ADD (attention deficit disorder) [F98.8] 07/29/2009 02/02/2021 Chronic insomnia [F51.04] 02/16/2012 Rapid palpitations [R00.2] 02/18/2014 03/23/2018 Ujaog-Plcvytnmw-Ncips (WPW) syndrome [I45.6] 02/18/2014 03/23/2018 Chest discomfort [R07.89] 02/18/2014 11/13/2015 Abnormal uterine bleeding [N93.9] 04/17/2014 09/02/2014 Anxiety [F41.9] 05/21/2014 Primary insomnia [F51.01] 06/11/2015 11/29/2023 Stress incontinence in female [N39.3] 11/13/2015 Encounter for screening colonoscopy [Z12.11] 08/10/2016 Complex cyst of right ovary [N83.291] 12/10/2016 Biliary dyskinesia [K82.8] 11/01/2017 WPW (Qoytk-Osygxkacr-Oqdsp syndrome) [I45.6] Gastro-esophageal reflux disease without esopha*07/08/2017 Chronic sinusitis, unspecified [J32.9] 06/30/2017 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 [facility] 06-27-2025 Progress note [facility] 06-27-2025 Progress note Note Date/Time June 27, 2025 2:15pm [facility] [address] [place] [address] OFFICE VISIT Date of Service: 06/27/25 MR#: [id number] Acct: [id number] Name: MARCIAL YEUNG Rep #: [id number] : 1965 Provider: Justus Ghosh DO Age/Sex: 60/F Location: [facility] Status: Signed Intake Vital Signs 03/06/25 14:23 Height 5 ft 2 in Intake Visit Reasons: Test Result Allergies citalopram Allergy (Intermediate, Verified 05/07/25 09:39) Other 2-octyl cyanoacrylate (octyl 2-cyanoacrylate) Allergy (Verified 05/07/25 09:39) Hives Tetracyclines Allergy (Verified 05/07/25 09:39) Unknown propranolol Adverse Reaction (Verified 05/07/25 09:39) Other Medications ?Medication ?Instructions ?Recorded ?Confirmed ?Type multivitamin with folic acid 400 1 tab PO DAILY 06/27/25 History mcg tablet trazodone 50 mg tablet 50 mg PO QHS sleep 05/30/14 06/27/25 History rimegepant 75 mg disintegrating 75 mg PO PRN PRN MIGRA STEPHANIA 05/21/21 06/27/25 History tablet (Nurtec ODT) phenazopyridine 100 mg tablet 100 mg PO TID PRN pain 6 doses #10 07/31/21 06/27/25 Rx (Pyridium) tabs dicyclomine 10 mg capsule 10 mg PO BID PRN 08/01/23 History fluticasone furoate 200 1 inh inhalation DAILY 08/0106/27/25 History mcg/actuation blister powder for inhalation (Arnuity Ellipta) metoprolol succinate 25 mg 25 mg PO DAILY 08/01/23 History tablet,extended release 24 hr estradiol 0.025 mg/24 hr 1 patch topical 2XW #8 patch es 08/02/24 06/27/25 Rx semiweekly transdermal patch fexofenadine 180 mg tablet 180 mg PO Q24H 12/20/24 History gabapentin 100 mg capsule 100 mg PO BID 12/20/2406/27 History ipratropium bromide 21 mcg (0.03 2 spray intranasal BI D 12/20/24 06/27/25 History %) nasal spray magnesium 250 mg tablet 250 mg PO QDAY 12/20/24/02/24 History montelukast 10 mg tablet 10 mg PO QDAY 12/20/2406/27 History primidone 50 mg tablet 50 mg PO ONCE 12/20/2406/27 History tizanidine 4 mg capsule 4 mg PO QHS PRN 12/20/24 History tramadol 50 mg tablet 50 mg PO QDAY 12/20/2406/27 History estradiol 10 mcg vaginal insert 10 mcg vaginal 2XW #8 inserts 04/26/25 06/27/25 Rx (Imvexxy Maintenance Pack) ondansetron HCl 4 mg tablet 4 mg PO Q8H PRN nausea and 05/07/25 06/27/25 Rx vomiting #45 tabs rabeprazole 20 mg tablet,delayed 20 mg PO BID #60 tabs 05/07/25 06/27/25 Rx release rifaximin 550 mg tablet 550 mg PO TID #42 tabs 05/0706/27/25 Rx PFSH Medical History PVC (premature ventricular contraction) Nausea IBS (irritable bowel syndrome) Intermittent lower abdominal pain Other urethral stricture, female Urinary tract infection Urinary tract infection Wears contact lenses History of steroid therapy Migraine headache Injury of head and neck Gastric reflux Non-smoker Asthma History of echocardiogram History of stress test Cardiology follow-up encounter History of irregular heartbeat Djmfi-Infoxbaxw-Iqqto syndrome Abnormal Pap smear of cervix Surgical History S/P colonoscopy S/P endoscopy History of cardiac catheterization History of cardiac radiofrequency ablation Hx of colonoscopy Hx laparoscopic cholecystectomy History of endometrial ablation S/P laparoscopic assisted vaginal hysterectomy (LAVH) S/P oophorectomy S/P tonsillectomy and adenoidectomy S/P breast augmentation S/P Family History Uncle Brain cancer Lung cancer Grandfather Heart disease Colon cancer Social History number of children: 3 current occupational status: employed 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 OV 8.5.25 Patient presents today for a check up with GERD, she also states she has some stomach pain. She reports she has some constipation and she also has some diarrhea. She has been having pain and cramps almost similar to period cramps on the right side and lower abdomen. Patient has a lot of nausea going on. States she hasn't had much of an appetite. GET 8.19.25 upper limits of normal Manometry 9.5.25 hypercontractile esophagus OV 9.25.25 pt reports that she is here to follow up from her manometry. Reports continued nausea, alternating bowel movements, abd pain, gas/bloating, and difficulty swallowing. Pt's reports an unintentional 20lb weight loss since March2025, reports that she doesn't eat much and feels full quickly. ROS Const Constitutional: Positive for fatigue, headache(s) and weight change (weight loss); No fever(s) ENT ENT: Positive for headache(s) and difficulty swallowing Gastro GI: Positive for abdominal pain, bloating, constipation, diarrhea, difficulty swallowing, excessive flatus and nausea/dyspepsia; No belching, change in bowel habits, change in stool character, coffee ground emesis, cramping, heartburn, feeling full early, incontinent of stools, Vomitingblood/hematemesis, Blood in stool, loose stools, Black,tarry stools, pain with swallowing, vomiting or other Musc Musculoskeletal: Positive for back pain, muscle cramps and stiffness; No joint pain Skin Skin: No yellowing of the eye or itchy eyes Neuro Neurology: Positive for headache(s) and other (vertigo) Psych Psychiatric: No anxiety and No depression Endo Endocrine: Positive for fatigue and weight change (weight loss) Aller/Imm Allergy/Immunologic: No itchy eyes Oscar/Lymp Hematologic/Lymphatic: Positive for easy bruising; No easy bleeding Exam Const General: cooperative, healthy appearing, comfortable, no acute distress and wellgroomed Nutritional Appearance: average body habitus Orientation: alert and oriented x3 HENMT Head: normal to inspection Ears: hearing grossly normal bilaterally Eyes General: appearance normal, both eyes and all related structures Sclera: sclerae normal Neck Neck: normal visual inspection and full ROM Chest Chest palpation & inspection: normal inspection of the chest Resp Effort & Inspection: normal respiratory effort and able to speak in complete sentences GI Inspection: normal to inspection Skin General: no rashes or lesions noted Neuro General: patient alert, patient oriented x3 and moves all extremities Cognition: normal cognition Speech: speech normal Gait: normal gait Extrem General: full ROM Psych Appearance: well kempt Mental Status: mental status grossly normal Mood: congruent mood Judgment: judgment good Assessment and Plan Assessment and Plan (1) Irritable bowel syndrome with diarrhea: Status: Acute (2) Dysphagia: Status: Chronic Qualifiers: Dysphagia type: unspecified Qualified Code(s): R13.10 - Dysphagia, unspecified (3) Nausea: Status: Acute Plan: 60-year-old individual presenting with a constellation of gastrointestinal symptoms including dysphagia, postprandial abdominal pain, and symptoms consistent with dumping syndrome. The patient has a history of cholecystectomy, which is a known risk factor for developing dumping syndrome. A recent gastric emptying study was at the upper limit of normal, a finding that can be challenging to interpret in the context of both delayed and rapid emptying disorders. * Esophageal Manometry:?Confirmed diagnosis of Jackhammer Esophagus, a hypercontractile esophageal motility disorder. * Gastric Emptying Study:?Results are at the upper limit of normal, suggesting that while emptying is not definitively delayed (gastroparesis), it is not definitively rapid (dumping syndrome), either. This can complicate the picture, as dumping syndrome is usually associated with rapid gastric emptying. However, symptoms can sometimes present without a clearly positive test. Labs/Imaging:?Depending on the presentation, further workup may be needed to rule out other causes of abdominal pain, such as Sphincter of Oddi dysfunction, which is sometimes associated with post-cholecystectomy symptoms. Assesment: * Jackhammer Esophagus:?This diagnosis is confirmed by manometry and explains the patient's dysphagia and potentially some of the chest/abdominal pain due to the intense, uncoordinated esophageal contractions. * Dumping Syndrome (post-cholecystectomy):?Despite the equivocal gastric emptyi ng study, the patient's symptoms (abdominal pain, flushing, weakness after meals) are highly suggestive of dumping syndrome. Post-cholecystectomy symptoms, including dumping syndrome, can be due to altered gastrointestinal physiology and are not always accompanied by an unequivocally positive gastric emptying study. * Postcholecystectomy Syndrome (PCS):?This is a broader term that may encompass both biliary and non-biliary symptoms, including those caused by Sphincter of Oddi dysfunction. Given the history, this is an important consideration. * Functional Abdominal Pain:?Overlapping functional gastrointestinal disorders may contribute to the abdominal pain, especially if no clear organic cause can be identified. Plan: * [place] Esophagus Management: * Medical:?Recommend smooth muscle relaxants such as calcium channel blockers or nitrates, or tricyclic antidepressants to target faulty esophageal nerves and reduce pain. * Endoscopic:?We will perform Botulinum toxin (Botox) injections into the lower esophageal sphincter (LES) to temporarily paralyze the muscle and relieve spasms, especially if other therapies fail. * Surgical:?In severe, refractory cases, consider a myotomy (Peroral Endoscopic Myotomy or POEM) to permanently cut the lower esophageal muscle. * Dumping Syndrome Management: * Dietary Modifications:?This is the first-line treatment. * Advise smaller, more frequent meals (5-6 per day). * Suggest delaying fluid intake until at least 30 minutes after meals. * Limit simple sugars and increase protein, complex carbohydrates, and fiber. * Instruct the patient to lie down for 30 minutes after eating to delay gastric emptying. * Medical:?If dietary changes are insufficient, consider medication. * Acarbose:?May be used to treat late dumping syndrome by slowing carbohydrate absorption. * Octreotide:?A more potent option for severe symptoms, injected to reduce hormones that cause dumping. Coding Level of Care Code Off vis,est,level 4 Diagnoses Irritable bowel syndrome with diarrhea K58.0 Dysphagia, unspecified type R13.10 Dysphagia type: unspecified Nausea R11.0 06/27/25 1415 <Electronically signed by Justus nguyễn DO> Date _ Justus Friend Cosigner Signature: Date (if applicable) CC: ~ [facility] Work Phone: 1(217) 516-498609-03-2025 Telephone encounter Note* Telephone Encounter - James Harry DO - 06/05/2025 3:36 PM EDT The following approved medication requests have been transmitted electronically. Requested Prescriptions Pending Prescriptions Disp Refills traMADol (ULTRAM) 50 mg tablet 60 tablet 0 Sig: Take 1 tablet by mouth every 12 hours for 30 days. James Harry DO [facility]09-03-2025 Miscellaneous Notes* Telephone Encounter - James Harry DO - 06/05/2025 3:36 PM EDT The following approved medication requests have been transmitted electronically. Requested Prescriptions Pending Prescriptions Disp Refills traMADol (ULTRAM) 50 mg tablet 60 tablet 0 Sig: Take 1 tablet by mouth every 12 hours for 30 days. James Harry DO * Telephone Encounter - Kassie Lopez MA - 06/05/2025 3:15 PM EDT Patient phones requesting refills as follows: Requested Prescriptions Pending Prescriptions Disp Refills traMADol (ULTRAM) 50 mg tablet 60 tablet 0 Sig: Take 1 tablet by mouth every 12 hours for 30 days. Please review and advise. Kassie Lopez MA [facility] Telephone encounter Note * Telephone Encounter - Kassie Lopez MA - 06/05/2025 3:15 PM EDT Patient phones requesting refills as follows: Requested Prescriptions Pending Prescriptions Disp Refills traMADol (ULTRAM) 50 mg tablet 60 tablet 0 Sig: Take 1 tablet by mouth every 12 hours for 30 days. Please review and advise. Kassie Lopez MA [facility]08-19-2025 Nuclear medicine Diagnostic study note [facility] Imaging Services [address] [place] [address] [id number] Gastric Emptying Study MR#: [id number] Acct: [id number] Name: MARCIAL YEUNG Rep #: [id number] : 1965 F 59 From: Compa Marcelo MD PCP: Dr. Dasia Auguste, DO Status: REG CLI Study:Gastric Emptying Study Date of Exam: 05/21/25 Exam# [id number] Ordering Dr: Saul Valdes [employer] PROCEDURE: GASTRIC EMPTYING STUDY 05/21/2025 REASON FOR EXAM: FREQUENT NAUSEA. Abdominal pain. Alternating constipation and diarrhea. COMPARISON: None. TECHNIQUE: The patient ingested a semi-solid meal of oatmeal. There was no vomiting postprandially. Anterior and posterior planar images of the upper abdomen were obtained for a total of 60 minutes. Regions of interest were drawn, and a geometric mean was used to calculate a [id number]. Medications taken in the past 24 hours that may affect gastric emptying: None RADIOPHARMACEUTICAL: Technetium 99 M sulfur colloid DOSE 1mCi orally with the oatmeal. FINDINGS: During the time of imaging, gastroesophageal reflux was not seen. Linear fit gastric emptying half-time of 57.9 minutes. Raw data gastric emptying half-time of 58.4 minutes. Gastric emptying at 18.5 minutes of 8%, at 29.5 minutes of 20%, at 47.5 minutes of 39%, and at 59.5minutes of 52%. NM/Gastric Emptying Study IMPRESSION: Normal semi solid phase gastric emptying. Reading Location: [place] [address] CC: TANISHA Valdes; Dr. 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 [facility]08-05-2025 Evaluation note* Diagnosis Onset Date Resolution Status Admit Date Intermittent lower abdominal pain acute May 07, 2025 9:37am Irritable bowel syndrome wit h diarrhea acute May 07, 2025 9:37am Nausea acute May 07 9:37am Dysphagia chronic May 07 9:37am Gastroesophageal reflux disease none active May 07, 2025 9:37am [facility] Work Phone: 1([phone]) 243-730908-05-2025 Evaluation note* Diagnosis Onset Date Resolution Status Admit Date Intermittent lower abdominal pain acute May 07, 2025 9:37am Irritable bowel syndrome wit h diarrhea acute May 07, 2025 9:37am Nausea acute May 07 9:37am Dysphagia chronic May 07 9:37am Gastroesophageal reflux disease noneactive May 07, 2025 9:37am Irritable bowel syndrome wit h diarrhea acute June 27, 2025 1:19pm Nausea acute June 1:19pm Dysphagia chronic June 1:19pm [facility] Work Phone: 1(682) 336-155708-01-2025 NoteHNO ID: [id number] Author: DEVEN LOGAN MD Service: ? Author Type: Physician Type: Progress Notes Filed: 05/03/2025 11:47 Note Text: Allergy AND Immunology Established Visit PATIENT NAME: Marcial Yeung SERVICE DATE: 05/03/2025 CC: Marcial Yeung is a 59-year-old female with a history of WPW and PVCs, presenting for follow-up of dyspnea and palpitations. HPI: Marcial reports experiencing dyspnea and palpitations, particularly in hot and humid weather. She notes that her heart rate increases in these conditions, requiring her to use a neck fan and seek shade or water when outdoors. She also experiences increased symptoms during rainstorms, including headaches and coughing, which improve as the storms subside. She has been using Estelin and ibuprofen regularly to manage her symptoms. In March, Marcial experienced a severe illness lasting 2.5 weeks, characterized by persistent coughing, chest heaviness, and significant weight loss (15 lbs). She required frequent use of her inhaler during this period. She underwent COVID-19 testing and a chest X-ray, which were negative. She was prescribed a steroid dose pack, which provided significant relief. She notes that higher doses of prednisone have previously exacerbated her cardiac symptoms. 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 She reports occasional PVCs and episodes of tachycardia but notes some improvement since her ablation and environmental modifications. She has removed candles from her home and installed three air purifiers to reduce triggers. She reports that her symptoms have improved since starting treatment with her pony rougher but acknowledges that she is not back to her previous baseline. She continues to manage her symptoms with her current medication regimen and environmental modifications. 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 flecainide; indication: symptomatic PSVT with WPW syndrome Other anxiety states Palpitations Paroxysmal supraventricular tachycardia (HCC) see "WPW Syndrome" Primary insomnia 06/11/2015 Sinus tachycardia 10/20/2023 Stress incontinence, female Unspecified asthma(493.90) WPW (Gtsvk-Qvfveekdy-Ipmxa syndrome) associated with symptomatic SVT; attempt at catheter ablation 11/2016 failed; she continues to experience intermittent palpitations and tachycardia despite treatment with flecainide; successful RFCA 03/2018 ACTIVE PROBLEM LIST Asthma (Hcc) Cervical High 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 Positive Chronic Insomnia Anxiety Stress Incontinence in Female Encounter for Screening Colonoscopy 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 Wpw (Vkgvv-Kqgbidxff-Seioc Syndrome) Gastro-Esophageal Reflux Disease Without Esophagitis Chronic Sinusitis, Unspecified Benign Neoplasm of Unspecified Ovary Asymptomatic Menopausal State Anxiety Disorder, Unspecified Acquired Absence of Both Cervix and Uterus Paroxysmal Supraventricular Tachycardia (Hcc) Palpitations Status Post Ablation of Accessory Bypass Tract Dyspareunia Chronic Mixed Headache Syndrome Chronic Migraine Without Aura, With Intractable Migraine, So Stated, With Status Migrainosus Intractable Chronic Migraine Without Aura and Without Status Migrainosus Chronic Daily Headache Musculoskeletal Pain Cervicalgia Chronic Tension-Type Headache, Intractable Reflux Esophagitis Intractable Chronic Migraine Without Aura and With Status Migrainosus Internal Hemorrhoids Migraine Without Aura and Without Status Migrainosus, Not Intractable Bilateral Occipital Neuralgia History of Fusion of Cervical Spine Irritable Bowel Syndrome With Diarrhea Sinus Tachycardia Chronic Migraine Without Aura, Intractable, Without Status Migrainosus Mild Persistent Asthma Without Complication (Hcc) Allergic Conjunctivitis, Bilateral Chronic Rhinitis Pvc (Premature Ventricular Contraction) Vasomotor Rhinitis 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Ilo) Allergic Contact Dermatitis Due to Adhesives Hoarseness of Voice Essential Tremor Tear of Left Acetabular Labrum Pain of Left Hip Tendinopathy of Left Gluteal Region Daytime Somnolence Chronic Midline Low Back Pain Without Sciatica Gastroesophageal Reflux Disease PAST SURGICAL HISTORY Procedure Laterality Date BLADDER SURGERY HX 11/2015 bladder sling BREAST AUGMENTATION WITH IMPLANT 11/2007 Breast augmentation CARDIAC MONITORING CONTINUOUS 05/25/2018 96 hours monitoring: sinus rhythm, sinus tachycardia; patient event activa (more content not included)...[facility]08-01-2025 History of Present illness Narrative* Deven Logan MD - 05/03/2025 10:56 AM EDT Images from the original note were not included. Allergy & Immunology Established Visit PATIENT NAME: Marcial Yeung SERVICE DATE: 05/03/2025 CC: Marcial Yeung is a 59-year-old female with a history of WPW and PVCs, presenting for follow-upof dyspnea and palpitations. HPI: Marcial reports experiencing dyspnea and palpitations, particularly in hot and humid weather. She notes that her heart rate increases in these conditions, requiring her to use a neck fan and seek shade or water when outdoors. She also experiences increased symptoms during rainstorms, including headaches and coughing, which improve as the storms subside. She has been using Estelin and ibuprofen regularly to manage her symptoms. In March, Marcial experienced a severe illness lasting 2.5 weeks, characterized by persistent coughing,chest heaviness, and significant weight loss (15 lbs). She required frequent use of her inhaler during this period. She underwent COVID-19 testing and a chest X-ray, which were negative. She was prescribed a steroid dose pack, which provided significant relief. She notes that higher doses of prednisone have previously exacerbated her cardiac symptoms. 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 She reports occasional PVCs and episodes of tachycardia but notes some improvement since her ablation and environmental modifications. She has removed candles from her home and installed three air purifiers to reduce triggers. She reports that her symptoms have improved since starting treatment with her pony rougher but acknowledges that she is not back to her previous baseline. She continues to manage her symptoms with her current medication regimen and environmental modifications. 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 flecainide; indication: symptomatic PSVT with WPW syndrome Other anxiety states Palpitations Paroxysmal supraventricular tachycardia (HCC) see "WPW Syndrome" Primary insomnia 06/11/2015 Sinus tachycardia 10/20/2023 Stress incontinence, female Unspecified asthma(493.90) 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; attempt at catheter ablation 11/2016 failed; she continues to experience intermittent palpitations and tachycardia despite treatment with flecainide; successful RFCA 03/2018 ACTIVE PROBLEM LIST Asthma (Hcc) Cervical High 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 Positive Chronic Insomnia Anxiety Stress Incontinence in Female Encounter for Screening Colonoscopy 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 Wpw (Gltgg-Ktrmcvpho-Jioph Syndrome) Gastro-Esophageal Reflux Disease Without Esophagitis Chronic Sinusitis, Unspecified Benign Neoplasm of Unspecified Ovary Asymptomatic Menopausal State Anxiety Disorder, Unspecified Acquired Absence of Both Cervix and Uterus Paroxysmal Supraventricular Tachycardia (Hcc) Palpitations Status Post Ablation of Accessory Bypass Tract Dyspareunia Chronic Mixed Headache Syndrome Chronic Migraine Without Aura, With Intractable Migraine, So Stated, With Status Migrainosus Intractable Chronic Migraine Without Aura and Without Status Migrainosus Chronic Daily Headache Musculoskeletal Pain Cervicalgia Chronic Tension-Type Headache, Intractable Reflux Esophagitis Intractable Chronic Migraine Without Aura and With Status Migrainosus Internal Hemorrhoids Migraine Without Aura and Without Status Migrainosus, Not Intractable Bilateral Occipital Neuralgia History of Fusion of Cervical Spine Irritable Bowel Syndrome With Diarrhea Sinus Tachycardia Chronic Migraine Without Aura, Intractable, Without Status Migrainosus Mild Persistent Asthma Without Complication (Hcc) Allergic Conjunctivitis, Bilateral Chronic Rhinitis Pvc (Premature Ventricular Contraction) Vasomotor Rhinitis 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Ilo) Allergic Contact Dermatitis Due to Adhesives Hoarseness of Voice Essential Tremor Tear of Left Acetabular Labrum Pain of Left Hip Tendinopathy of Left Gluteal Region Daytime Somnolence Chronic Midline Low Back Pain Without Sciatica Gastroesophageal Reflux Disease PAST SURGICAL HISTORY Procedure Laterality Date BLADDER SURGERY HX 11/2015 bladder sling BREAST AUGMENTATION WITH IMPLANT 11/2007 Breast augmentation CARDIAC MONITORING CONTINUOUS 05/25/2018 96 hours monitoring: sinus rhythm, sinus tachycardia; patient event activations and/or reported symptoms correlated with sinus rhythm and sinus tachycardia DELIVERY ONLY 85, 88,92 , low cervical X3 COLONOSCOPY 06/2021 EGD 2019 F LIGATION OF HEMORRHOID(S) 10/07/2020 IUD INSERTION ([facility])_*FL 08/30/2007 Mirena - removed LAPAROSCOPY SURG CHOLECYSTECTOMY 11/16/2017 [facility] OOPHORECTOMY, PART/TOTAL UNILAT/BILAT 2016 PAST SURGICAL HISTORY OF 09/2021 C4-C6 disc replacement S PK LAVH [id number] 2013 lavh RICKY biltareal salpingectomy SVT ABLATION W/ EP COMPLETE 11/24/2016 [facility], Dr. Mcknight; right midseptal AP unable to be ablated despite cryoablation and RF ablation attempts; AP described as not having capability for extremely rapid antegrade conduction SVT ABLATION W/ EP COMPLETE 03/28/2018 left posteroseptal AP just within the proximal CS; Stereotaxis RF with Carto guidance, successful elimination of AP conduction; no SVT inducible pre- or post-ablation; CCAG Dr. Luong TONSILLECTOMY & ADENOIDECTOMY <AGE 13 1968 VAGINAL HYSTERECTOMY Social History Tobacco Use Smoking status: Never Smokeless tobacco: Never Vaping Use Vaping status: Never Used Substance Use Topics Alcohol use: Yes Comment: occasionally Drug use: No CURRENT OUTPATIENT MEDICATIONS: Current Outpatient Medications Medication Sig Dispense Refill traMADol (ULTRAM) 50 mg tablet Take 1 tablet by mouth every 12 hours for 30 days. 60 tablet 0 rimegepant (NURTEC ODT) 75 mg disintegrating tablet dissolve 1 tablet orally AT ONSET OF MIGRAINE and may repeat ONCE PER 24 HOURS IF NEEDED [address] (PROTONIX) 40 mg tablet Take 1 tablet by mouth two times a day. 180 tablet 3 fexofenadine (LAURA ALLERGY) 180 mg tablet Take 1 tablet by mouth once daily. 90 tablet 3 DULoxetine (CYMBALTA) 20 mg capsule Take 20 mg by mouth every morning. zaleplon (SONATA) 10 mg capsule bring to sleep study Estradiol (VAGIFEM) 10 mcg vaginal tablet INSERT 1 TABLET VAGINALLY TWICE EVERY 7 DAYS ondansetron (ZOFRAN) 8 mg tablet Take 8 mg by mouth three times a day as needed. tiZANidine (ZANAFLEX) 4 mg tablet Take 1 tablet by mouth every 8 hours as needed. prn 30 tablet 11 codeine-guaiFENesin (ROBITUSSIN AC) 10-100 mg/5 mL syrup primidone (MYSOLINE) 50 mg tablet Take 50 mg by mouth four times daily. Taking 1/4 to 1/2 tab currently traZODone (DESYREL) 50 mg tablet TAKE 1 AND 1/2 TABLETS BY MOUTH EVERY NIGHT AT BEDTIME 135 tablet 3 metoprolol succinate ER (TOPROL XL) 25 mg 24 hr tablet Take 1 tablet by mouth every afternoon. 90 tablet 3 IMVEXXY MAINTENANCE PACK 10 mcg inst INSERT 1 TABLET VAGINALLY 2 TIMES A WEEK levalbuterol (XOPENEX) 1.25 mg/3 mL nebulizer solution Inhale 1 ampule via nebulizer 4x daily as needed. Nebulizer and Compressor For Neb (PORTABLE NEBULIZER SYSTEM) 1 Each every 4 hours as needed. 1 Each3 cephALEXin (KEFLEX) 250 mg capsule Take 250 mg by mouth once daily as needed (after intercourse). ondansetron (ZOFRAN) 4 mg tablet take 1 tablet by mouth every 8 hours if needed for nausea and vomiting 30 tablet 1 dicyclomine (BENTYL) 10 mg capsule Take 1 capsule by mouth three times daily. 90 capsule 2 estradiol (NOBLE, VIVELLE-DOT) 0.025 mg/24 hr 1 Patch every Tuesday and Tuesday. azelastine 0.1% nasal spray Use 2 sprays in each nostril two times a day. 90 mL 3 ARNUITY ELLIPTA 200 mcg/actuation inhaler Inhale 1 puff as instructed once daily. 90 each 3 gabapentin (NEURONTIN) 100 mg capsule Take 2 capsules by mouth daily at bedtime. 180 capsule 3 Ipratropium [place] (ATROVENT) 21 mcg (0.03 %) nasal spray Use 2 sprays in the nose three times a day. 90 mL 3 ipratropium bromide (ATROVENT) 42 mcg (0.06 %) nasal spray Use 2 sprays in the nose three times a day as needed. 90 mL 3 levalbuterol tartrate HFA 45 mcg/actuation inhaler Inhale 1-2 puffs as instructed every 4 hours as needed for wheezing/shortness of breath. 45 g 3 montelukast (SINGULAIR) 10 mg tablet Take 1 tablet by mouth daily at bedtime. 90 tablet 3 No current facility-administered medications for this visit. ALLERGIES: ALLERGIES Allergen Reactions 2-Octyl Cyanoacryla* Rash Blistering contact reaction Citalopram Other: See Comments Did not tolerate, ? Mental status changes Liquid Bandage [Enb* Rash blisters and rash Propranolol Mental Status Change Tetracycline GI Upset Abdominal pain/cramping REVIEW OF SYSTEMS: GENERAL: Positive for recent weight loss; denies fever or generalized discomfort. HEENT: Positive for headaches, nasal congestion, and dysphonia; denies changes in vision or hearing, nosebleeds, or other nasal problems. NECK: Negative for lumps, goiter, pain, and significant neck swelling. RESPIRATORY: Positive for cough, intermittent shortness of breath, and chest tightness; no other respiratory complaints reported. CARDIOVASCULAR: Denies chest pain, leg swelling, and CHF; positive for occasional palpitations. GI: No nausea, vomiting, diarrhea, heartburn, abdominal pain, blood in stool, or black stool. GENITOURINARY: No history of dysuria, frequency, or incontinence. MUSCULOSKELETAL: Negative for joint pain or swelling, muscle pain, and back pain. SKIN: Negative for lesions, rash, and itching. PSYCH: Negative for anxiety or depression. HEMATOLOGY/LYMPHOLOGY: No bleeding concerns. NEURO: Positive for headaches; denies syncope, paralysis, seizures, or tremors. ENDOCRINE: No history of polydipsia, increased thirst, or other endocrine symptoms. PHYSICAL EXAM: BP 134/87 Pulse 83 Temp (Src) 96.8 (Temporal) Resp 17 Ht 5' 2" (1.58m) Wt 133 lb 2.5 oz (60.4kg) SpO2 100% LMP 05/06/2014 BMI 24.35 kg/(m^2). GENERAL: NAD, alert and oriented. SKIN: unremarkable, no rash or skin lesions. HEAD: normocephalic. EYES: PERRLA, EOMI, conjunctiva clear. EARS: external ears normal, canals clear, TM's normal. NOSE/SINUSES: Nares normal. Septum midline. OROPHARYNX: lips, mucosa, and tongue normal, good dentition. No oral lesions noted. NECK: Supple, no lymphadenopathy, normal thyroid, no carotid bruits. LUNGS: Clear to auscultation bilaterally, no wheezes/rhonchi/rales. HEART: Regular rate and rhythm, no murmurs. No ectopy. EXTREMITIES: Normal, No deformities, No skin discoloration, No edema. NEURO: Awake, alert and oriented x3, cranial nerves II-XII grossly intact, normal gait, no involuntary motions. DATA: Diagnostic tests reviewed for today's visit were personally reviewed by me: Most recent labs and imaging results. SPIROMETRY - BASELINE AND POST DILATOR ([id number]) - ordered on 06/10/23 No textual results for order. 05/06/2024 10/23/2024 05/02/2025 ASTHMA CONTROL TEST (2007 - ) Keep from getting things done 5 None of the time 5 None of the time 5 None of the time Shortness of breath 4 Once or twice a week 2 Once a day 4 Once or twice a week Symptoms wake up at night or early in morning 2 2 or 3 nights a week 4 Once or twice 4 Once or twice How often have you used inhaler/nebulizer 3 2 or 3 times per week 2 1 or 2 times per day 4 Once a week or less Rate your asthma control over past 4 weeks 4 Well controlled 4 Well controlled 4 Well controlled Asthma Control Test Score 18 17 21 No question data found. Glucose (mg/dL) Date Value 07/26/2024 96 04/02/2018 116 Potassium Date Value 07/26/2024 4.3 mmol/L 04/02/2018 4.2 mEq/L Sodium Date Value 07/26/2024 140 mmol/L 04/02/2018 142 mEq/L Chloride Date Value 07/26/2024 104 mmol/L 04/02/2018 107 mEq/L CO2 Date Value 07/26/2024 27 mmol/L 04/02/2018 28 mEq/L Creatinine (mg/dL) Date Value 07/26/2024 0.99 04/02/2018 0.92 BUN (mg/dL) Date Value 07/26/2024 14 04/02/2018 11 Anion Gap Date Value 07/26/2024 9 mmol/L 04/02/2018 11 Calcium (mg/dL) Date Value 04/02/2018 8.9 Calcium, Total (mg/dL) Date Value 07/26/2024 9.5 Protein, Total (g/dL) Date Value 07/26/2024 6.7 11/09/2017 7.5 Albumin (g/dL) Date Value 07/26/2024 4.5 11/09/2017 4.8 Bilirubin, Total (mg/dL) Date Value 07/26/2024 0.2 11/09/2017 0.2 Alkaline Phosphatase (U/L) Date Value 07/26/2024 61 11/09/2017 57 AST (U/L) Date Value 07/26/2024 22 11/09/2017 20 ALT (U/L) Date Value 07/26/2024 36 11/09/2017 16 WBC Date Value Ref Range Status 07/26/2024 9.46 3.70 - 11.00 k/uL Final RBC Date Value Ref Range Status 07/26/2024 4.31 3.90 - 5.20 m/uL Final Hemoglobin Date Value Ref Range Status 07/26/2024 12.5 11.5 - 15.5 g/dL Final Hematocrit Date Value Ref Range Status 07/26/2024 39.7 36.0 - 46.0 % Final MCV Date Value Ref Range Status 07/26/2024 92.1 80.0 - 100.0 fL Final MCH Date Value Ref Range Status 07/26/2024 29.0 26.0 - 34.0 pg Final MCHC Date Value Ref Range Status 07/26/2024 31.5 30.5 - 36.0 g/dL Final RDW-CV Date Value Ref Range Status 07/26/2024 13.0 11.5 - 15.0 % Final Platelet Count Date Value Ref Range Status 07/26/2024 371 150 - 400 k/uL Final MPV Date Value Ref Range Status 07/26/2024 10.2 9.0 - 12.7 fL Final Abs Neut Date Value Ref Range Status 11/23/2023 5.78 1.45 - 7.50 k/uL Final Lymphocytes % Date Value Ref Range Status 11/23/2023 27.8 % Final Abs Lymph Date Value Ref Range Status 11/23/2023 2.52 1.00 - 4.00 k/uL Final Monocytes % Date Value Ref Range Status 11/23/2023 7.3 % Final Abs [place] Date Value Ref Range Status 11/23/2023 0.66 <0.87 k/uL Final Abs Eosin Date Value Ref Range Status 11/23/2023 0.03 <0.46 k/uL Final Basophils % Date Value Ref Range Status 11/23/2023 0.3 % Final Abs Baso Date Value Ref Range Status 11/23/2023 0.03 <0.11 k/uL Final IgE Date Value Ref Range Status 11/23/2023 4.2 <114.0 kU/l Final IgG Date Value Ref Range Status 11/23/2023 876 700 - 1,600 mg/dL Final Return in about 6 months (around 11/03/2025). ASSESSMENT/PLAN: PLAN: (K21.9) Gastroesophageal reflux disease, unspecified whether esophagitis present (primary encounterdiagnosis) (J45.30) Mild persistent asthma without complication (HCC) (J31.0) Chronic rhinitis (I49.3) PVC (premature ventricular contraction) (J32.9) Chronic sinusitis, unspecified location (I45.6) WPW (Lvltx-Ytafetbgi-Coaod syndrome) (J30.0) Vasomotor rhinitis (J38.7) Inducible laryngeal obstruction (ILO) (L23.1) Allergic contact dermatitis due to adhesives (R49.0) Hoarseness of voice (H10.13) Allergic conjunctivitis, bilateral PATIENT INSTRUCTIONS We discussed your respiratory symptoms and overall health: - You mentioned experiencing coughing, chest heaviness, and a gravelly voice today, which you attribute to the hot, humid weather and poor air quality. These symptoms have been ongoing since March, when you were sick for two and a half weeks with significant coughing and chest discomfort. At that time, you were treated with a steroid dose pack, which helped improve your symptoms. - You noted that environmental factors, such as storms, rain, and wildfire smoke, seem to worsen your symptoms. You also mentioned using air purifiers at home to help manage your environment. - Continue using your prescribed medications, including your inhaler and nasal spray, as directed. These are helping to manage your symptoms. - Avoid prolonged exposure to heat, humidity, and poor air quality when possible. Stay in shaded orair-conditioned areas, and use a fan or cooling device as needed to help regulate your body temperature. - Monitor your symptoms, and let us know if they worsen or if you experience new or concerning issues, such as increased shortness of breath or chest pain. We discussed your heart health: - You reported occasional PVCs (premature ventricular contractions) and episodes of elevated heart rate, particularly in hot weather. You feel these symptoms have improved since your ablation and environmental adjustments, such as removing candles and using air purifiers. - Continue to monitor your heart rate and symptoms. If you notice significant changes or worsening,please contact our office. We discussed your overall management plan: - Stay on your current regimen, as it appears to be helping manage your symptoms. - Refills for your medications have been sent to your pharmacy. - If you experience any new or worsening symptoms, please reach out to our office for further evaluation. Stay cool and take precautions during hot and humid weather. Let us know if you need anything further. I spent a total of 36 minutes on the date of the service which included preparing to see the patient, [id number] patient care, completing clinical documentation, performing a medically appropriate examination, counseling and educating the patient/family/caregiver, and ordering medications, tests,or procedures. Deven Logan MD documented in this encounterC[facility] Instructions* Patient Instructions* Sharron Hollis APRN.ASBESTOS MICROSCOPIST - 04/18/2025 10:33 AM EDT AFTER VISIT CARE BOTOX INJECTION While these procedures can be extremely helpful as part of your headache treatment plan, they can irritate the muscles and tissues in your head, neck and shoulders. Proper follow-up care is important to avoid muscle spasms and temporary pain increase within the following 3-5 days after your clinic visit. Here are some tips to help decrease side-effects that may occur and maximize the effectiveness of your pain relief -HYDRATION Hydration is important to help nourish your muscles and tissues. Drink 60-80 oz of non caffeinated fluid at least for 3 days after your visit. -REST Rest will help avoid further irritation of muscle and tissues. Remember that you need to give your body time to adjust. NO strenuous activity for at least the first 24 hours after your visit. Gentle stretching, yoga, meditation or even swimming is OK and encouraged. -ICE/HEAT Since these procedures irritate muscles, there can be some swelling. Alternating ice and heat every3-5 times per day may help decrease this, while also optimizing pain relief Use cool gel packs for ice for 10 min. Use a warm moist towel covered with a dry towel on neck and shoulders. Alternate stretching each side of the neck. -STRETCHING Slow, gentle stretching of the neck and shoulders once every hour is helpful to avoid muscle spasms. -TREAT MUSCLE SPASMS If you are already prescribed a muscle relaxer such as baclofen, tizanidine or flexeril, use as directed. If you do not have one, talk to your provider to find out if this would be safe for you to use. Do not rub or massage the area for 48-72 hours. -OTHER No hair dyes or permanents for 24 hours. If you are paying out of pocket for Botox go online to Botox Savings Program and see if you qualifyfor reimbursement. Return in 3 months for your next Botox Injection documented in this encounterC[facility]07-[facility] History of Present illness Narrative* Sharron Hollis APRN.ROLAND - 04/18/2025 10:30 AM EDT Headache Center Follow-up Visit Miscellaneous Patient Concerns: Discussed Nurtec denial today. Hopefully we will be able to appeal as she has tried and failed 2 triptans - Sumatriptan and Rizatriptan. She has had side effects with triptans. Impression: Chronic migraine without aura, intractable, without status migrainosus (primary encounter diagnosis) Marcial Yeung has been previously approved for an Oral Calcitonin Gene-Related Peptide Receptor Antagonist (GEPANT) Rimegepant for the treatment of abortive use. The patient has demonstrated the following: Provider attests patient has had a positive clinical response: Yes Patient will not use with another Oral Calcitonin Gene-Related Peptide Receptor Antagonist (GEPANT): Yes Patient's quality of life and ability to perform ADLs has improved: Yes The patient has tried and failed the following : We suggest the patient continue treatment with GEPANT Rimegepant. The following preventative medications have been tried for three or more months without benefit: Anti-Convulsant Gabapentin (Neurontin) Topiramate (Topamax, Trokendi XL, Qudexy) Anti-Depressant and Antipsychotic Amitriptyline (Elavil) Bupropion (Wellbutrin) Citalopram (Celexa) Fluoxetine (Prozac) Venlafaxine (Effexor) Blood Pressure Metoprolol (Lopressor,Toprol XL) Propranolol (Inderal) Botulinum Toxin Onabotulinum Toxin A (Botox) Supplements Magnesium The following abortive medications have been tried but require high frequency use which can lead toMedication Overuse Headache: Analgesic Hydrocodone/Acetaminophen (Vicodin, [place]) Hydromorphone (Dilaudid) Meloxicam (Mobic) Meperidine (Demerol) Oxycodone Oxycodone/Acetaminophen (Percocet) Tramadol (Ultram) Anti-Anxiety Lorazepam (Ativan) Anti-Migraine Rizatriptan (Maxalt) Sumatriptan (Imitrex, Sumavel) GEPANTS Ubrogepant (Ubrelvy) Rimegepant (Nurtec) Over the Counter Medications Acetaminophen (Tylenol) Acetaminophen/Aspirin/Caffeine (Excedrin, Goody s) Aspirin Ibuprofen (Advil, Motrin) Naproxen sodium (Aleve) Follow-Up Onabotulinum Toxin A (BotoxTM) for Migraine Indication: Chronic Intractable Migraine Referral Expiration: 04/08/2026 Prior to the initiation of the FIRST treatment with Onabotulinum Toxin A, the patient reported the following average headache frequency over the past 3 MONTHS: Number of moderate-severe migraine days/month: 25 Number of mild migraine days/month: 0 Number of headache free days/month: 5 (120 headache-free hours) After treatment with Onabotulinum Toxin A: Number of moderate-severe migraine days/month: 3 Number of mild migraine days/month: 3 Number of headache free days/month: 24 (576 headache-free hours) Patient reduction in overall migraine days: Yes Patient reduction in moderate-severe migraine days: Yes Patient reduction of headache hours by 100 hours or more: Yes (reduction of 456 hours) Individual has obtained clinical benefit deemed significant by individual or prescriber (Y/N): Yes Patient's quality of life and ability to perform ADLs has improved (Y/N): Yes Side effects: none The patient has been assessed for disorders which could contribute to breathing or swallowing difficulty, and there is no contraindication with PREEMPT Botox. There is no documented allergic reaction/hypersensitivity to any botulinum toxin and there is no active infection at proposed injection site. HEADACHE SCORES: 07/17/2024 10/17/2024 01/15/2025 Headache Questions ER visits since last office visit: 0 0 0 Hospital stays since last office visit 0 0 0 Limited ADLs in the last month: 1 0 0 Days missed from work or school in the last month: 0 0 0 Days headache pain free in the last month: 25 20 20 Days per month with ALL of the following symptoms - decreased productivity, light sensitivity and nausea: 1 0 2 Initial improvement of headache after botox injection at last visit: Much improved Much improved Very much improved PRN medication usage in the last month: 5 6 Patient impression of improvement since last visit: No change No change No change 07/17/2024 10/17/2024 01/15/2025 HIT-6 HIT-6 46 (Little or no impact) 40 (Little or no impact) 42 (Little or no impact) 10/17/2024 12/29/2024 01/15/2025 KEYONNA - 2/7 SCORES KEYONNA-2 Score 0 0 0 KEYONNA-7 Score 0 07/17/2024 10/17/2024 01/15/2025 Migraine Specific QOL - Higher scores indicate better HRQL Role Function-Restrictive Transformed Score (range: 0-100) 97.14 97.14 100 Role Function-Preventive Transformed Score (range: 0-100) 100 100 95 Emotional Function Transformed Score (range: 0-100) 100 100 100 01/15/2025 10/17/2024 07/26/2024 PHQ-9 Score 3 2 2 BP 145/85 Pulse 75 Ht 157.5 cm (5' 2") Wt 61.2 kg (135 lb) LMP 05/06/2014 BMI 24.69 kg/m Patient name: Marcial Yeung : 1965 ALLERGIES Allergen Reactions 2-Octyl Cyanoacryla* Rash Blistering contact reaction Citalopram Other: See Comments Did not tolerate, ? Mental status changes Liquid Bandage [Enb* Rash blisters and rash Propranolol Mental Status Change Tetracycline GI Upset Abdominal pain/cramping UNIVERSAL PROTOCOL / SAFETY CHECKLIST Procedure: Onabotulinum toxin A for migraine Informed Consent Consent Obtained: Written [place] Protocol A moment to CARE was completed SIGN IN Personnel directly involved with the procedure wore the appropriate PPE Special Equipment: N/A Patient/Surrogate Stated/Verified: Patient name, Date of , Relevant allergies and Intended procedure TIME OUT No relevant labs, photos, and/or imaging studies were applicable for review. Consent documented and matches the intended procedure No correct side/site applicable for marking and visibility. No medications required for procedure. No fire risk assessment and interventions applicable. No implant(s) inserted. SIGN OUT No specimen collected. Written Consent Obtained: Written LOT #: [id number] Expiration Date: Month: : 2026 Second vial: LOT #: [id number] Expiration Date: Month: Year: 2026 Injection Sites Left (Units) Left (Sites) Right (Units) Right (Sites) TOTAL (Units) Pesticide Chemist 5 1 5 1 10 Procerus Units: 5 Sites: 1 5 Frontalis 10 2 10 2 20 Temporalis optional follow the pain 20 5 4 1 20 5 4 1 50 Occipitalis optional follow the pain 15 10 3 2 15 10 3 2 50 Cervical PSP 10 2 10 2 20 Trapezius optional follow the pain 15 7.5 3 2 15 7.5 3 2 45 Total Units used: 200 Total Units wasted: 0 Patient tolerated procedure well. Prior Therapies Duration of Use Dose Side effect Analgesic Hydrocodone/Acetaminophen (Vicodin, [place]) Hydromorphone (Dilaudid) Meloxicam (Mobic) Meperidine (Demerol) Oxycodone Oxycodone/Acetaminophen (Percocet) Tramadol (Ultram) Anti-Anxiety Lorazepam (Ativan) Anti-Convulsant Gabapentin (Neurontin) Topiramate (Topamax, Trokendi XL, Qudexy) Anti-Depressant and Antipsychotic Amitriptyline (Elavil) Bupropion (Wellbutrin) Citalopram (Celexa) Fluoxetine (Prozac) Venlafaxine (Effexor) Antiemetics Metoclopramide Ondansetron Prochlorperazine Promethazine Anti-Migraine Rizatriptan (Maxalt) Sumatriptan (Imitrex, Sumavel) Blood Pressure Metoprolol (Lopressor,Toprol XL) Propranolol (Inderal) GEPANTS Ubrogepant (Ubrelvy) Rimegepant (Nurtec) Botulinum Toxin Onabotulinum Toxin A (Botox) Muscle Relaxer Cyclobenzaprine (Flexeril) Sleep Aids Trazodone (Desyrel) Zolpidem (Ambien) Supplements Magnesium Other Medications Dexamethasone (Decadron) Prednisone Over the Counter Medications Acetaminophen (Tylenol) Acetaminophen/Aspirin/Caffeine (Excedrin, Goody s) Aspirin Ibuprofen (Advil, Motrin) Naproxen sodium (Aleve) Sharron Hollis APRN.ASBESTOS MICROSCOPIST documented in this encounterC[facility]07-17-2025 NoteHNO ID: [id number] Author: SHARRON HOLLIS APRN.ASBESTOS MICROSCOPIST Service: ? Author Type: Nurse Practitioner Type: Progress Notes Filed: 04/18/2025 10:46 Note Text: Headache Center Follow-up Visit Miscellaneous Patient Concerns: Discussed Nurtekalyn denial today. Hopefully we will be able to appeal as she has tried and failed 2 triptans - Sumatriptan and Rizatriptan. She has had side effects with triptans. Impression: Chronic migraine without aura, intractable, without status migrainosus (primary encounter diagnosis) Marcial Yeung has been previously approved for an Oral Calcitonin Gene-Related Peptide Receptor Antagonist (GEPANT) Rimegepant for the treatment of abortive use. The patient has demonstrated the following: Provider attests patient has had a positive clinical response: Yes Patient will not use with another Oral Calcitonin Gene-Related Peptide Receptor Antagonist (GEPANT): Yes Patient's quality of life and ability to perform ADLs has improved: Yes The patient has tried and failed the following : We suggest the patient continue treatment with GEPANT Rimegepant. The following preventative medications have been tried for three or more months without benefit: Anti-Convulsant Gabapentin (Neurontin) Topiramate (Topamax, Trokendi XL, Qudexy) Anti-Depressant and Antipsychotic Amitriptyline (Elavil) Bupropion (Wellbutrin) Citalopram (Celexa) Fluoxetine (Prozac) Venlafaxine (Effexor) Blood Pressure Metoprolol (Lopressor,Toprol XL) Propranolol (Inderal) Botulinum Toxin Onabotulinum Toxin A (Botox) Supplements Magnesium The following abortive medications have been tried but require high frequency use which can lead to Medication Overuse Headache: Analgesic Hydrocodone/Acetaminophen (Vicodin, [place]) Hydromorphone (Dilaudid) Meloxicam (Mobic) Meperidine (Demerol) Oxycodone Oxycodone/Acetaminophen (Percocet) Tramadol (Ultram) Anti-Anxiety Lorazepam (Ativan) Anti-Migraine Rizatriptan (Maxalt) Sumatriptan (Imitrex, Sumavel) GEPANTS Ubrogepant (Ubrelvy) Rimegepant (Nurtec) Over the Counter Medications Acetaminophen (Tylenol) Acetaminophen/Aspirin/Caffeine (Excedrin, Goody?s) Aspirin Ibuprofen (Advil, Motrin) Naproxen sodium (Aleve) Follow-Up Onabotulinum Toxin A (BotoxTM) for Migraine Indication: Chronic Intractable Migraine Referral Expiration: 04/08/2026 Prior to the initiation of the FIRST treatment with Onabotulinum Toxin A, the patient reported the following average headache frequency over the past 3 MONTHS: Number of moderate-severe migraine days/month: 25 Number of mild migraine days/month: 0 Number of headache free days/month: 5 (120 headache-free hours) After treatment with Onabotulinum Toxin A: Number of moderate-severe migraine days/month: 3 Number of mild migraine days/month: 3 Number of headache free days/month: 24 (576 headache-free hours) Patient reduction in overall migraine days: Yes Patient reduction in moderate-severe migraine days: Yes Patient reduction of headache hours by 100 hours or more: Yes (reduction of 456 hours) Individual has obtained clinical benefit deemed significant by individual or prescriber (Y/N): Yes Patient's quality of life and ability to perform ADLs has improved (Y/N): Yes Side effects: none The patient has been assessed for disorders which could contribute to breathing or swallowing difficulty, and there is no contraindication with PREEMPT Botox. There is no documented allergic reaction/hypersensitivity to any botulinum toxin and there is no active infection at proposed injection site. HEADACHE SCORES: 07/17/2024 10/17/2024 01/15/2025 Headache Questions ER visits since last office visit: 0 0 0 Hospital stays since last office visit 0 0 0 Limited ADLs in the last month: 1 0 0 Days missed from work or school in the last month: 0 0 0 Days headache pain free in the last month: 25 20 20 Days per month with ALL of the following symptoms - decreased productivity, light sensitivity and nausea: 1 0 2 Initial improvement of headache after botox injection at last visit: Much improved Much improved Very much improved PRN medication usage in the last month: 5 6 Patient impression of improvement since last visit: No change No change No change 07/17/2024 10/17/2024 01/15/2025 HIT-6 HIT-6 46 (Little or no impact) 40 (Little or no impact) 42 (Little or no impact) 10/17/2024 12/29/2024 01/15/2025 KEYONNA - 2/7 SCORES KEYONNA-2 Score 0 0 0 KEYONNA-7 Score 0 07/17/2024 10/17/2024 01/15/2025 Migraine Specific QOL - Higher scores indicate better HRQL Role Function-Restrictive Transformed Score (range: 0-100) 97.14 97.14 100 Role Function-Preventive Transformed Score (range: 0-100) 100 100 95 Emotional Function Transformed Score (range: 0-100) 100 100 100 01/15/2025 10/17/202407/2607/26/2024 PHQ-9 Score 3 2 2 BP 145/85 Pulse 75 Ht 157.5 cm (5' 2") Wt 61.2 kg (135 lb) LMP 05/06/2014 B (more content not included)...[facility] 04-11-2025 Telephone encounter Note* Telephone Encounter - James Harry DO - 04/11/2025 5:59 PM EDT The following approved medication requests have been transmitted electronically. Requested Prescriptions Pending Prescriptions Disp Refills traMADol (ULTRAM) 50 mg tablet 60 tablet 0 Sig: Take 1 tablet by mouth every 12 hours for 30 days. James Harry DO [facility]07-[facility] Miscellaneous Notes* Telephone Encounter - James Harry DO - 04/11/2025 5:59 PM EDT The following approved medication requests have been transmitted electronically. Requested Prescriptions Pending Prescriptions Disp Refills traMADol (ULTRAM) 50 mg tablet 60 tablet 0 Sig: Take 1 tablet by mouth every 12 hours for 30 days. James Harry DO * Telephone Encounter - Kassie Lopez MA - 04/11/2025 5:55 PM EDT Patient phones requesting refills as follows: Requested Prescriptions Pending Prescriptions Disp Refills traMADol (ULTRAM) 50 mg tablet 60 tablet 0 Sig: Take 1 tablet by mouth every 12 hours for 30 days. Please review and advise. Kassie Lopez MA documented in this encounterCleveland [facility]07-10-2025 Telephone encounter Note * Telephone Encounter - Kassie Lopez MA - 04/11/2025 5:55 PM EDT Patient phones requesting refills as follows: Requested Prescriptions Pending Prescriptions Disp Refills traMADol (ULTRAM) 50 mg tablet 60 tablet 0 Sig: Take 1 tablet by mouth every 12 hours for 30 days. Please review and advise. Kassie Lopez MA [facility] Telephone encounter Note* Telephone Encounter - Mark Noel - 04/11/2025 10:15 AM EDT Images from the original note were not included. Prior Authorization for Medications Requested by (Kurt, Pharmacy, Patient Call, Fax) : Pharmacy Pharmacy Name: [facility] Phone # : [phone] Name of Medication : Nurtec Dose : 75 mg If renewal, auth date expiration: n/a Prescribing Provider: Sal Last OV: 01/06/25 with Sal Insurance Provider : [facility] Is insurance card scanned in, including Rx info? Yes Insurance CoverMyMeds Javier: n/a E-PA? Yes [facility] Miscellaneous Notes* Telephone Encounter - Mark Noel - 04/11/2025 10:15 AM EDT Images from the original note were not included. Prior Authorization for Medications Requested by (Kurt, Pharmacy, Patient Call, Fax) : Pharmacy Pharmacy Name: [facility] Phone # : [phone] Name of Medication : Nurtec Dose : 75 mg If renewal, auth date expiration: n/a Prescribing Provider: Sal Last OV: 01/06/25 with Sal Insurance Provider : [facility] Is insurance card scanned in, including Rx info? Yes Insurance CoverMyMeds Javier: n/a E-PA? Yes documented in this encounterC[facility]07-09-2025 Telephone encounter Note * Telephone Encounter - Sharron Hollis APRN.CNP - 04/10/2025 5:24 PM EDT The following approved medication requests have been transmitted electronically. Requested Prescriptions Signed Prescriptions Disp Refills rimegepant (NURTEC ODT) 75 mg disintegrating tablet 8 tablet 11 Sig: dissolve 1 tablet orally AT ONSET OF MIGRAINE and may repeat ONCE PER 24 HOURS IF NEEDED Authorizing Provider: SHARRON HOLLIS APRN.CNP April 10, 2025 5:24 PM [facility] Miscellaneous Notes* Telephone Encounter - Sharron Hollis APRN.CNP - 04/10/2025 5:24 PM EDT The following approved medication requests have been transmitted electronically. Requested Prescriptions Signed Prescriptions Disp Refills rimegepant (NURTEC ODT) 75 mg disintegrating tablet 8 tablet 11 Sig: dissolve 1 tablet orally AT ONSET OF MIGRAINE and may repeat ONCE PER 24 HOURS IF NEEDED Authorizing Provider: SHARRON HOLLIS APRN.CNP April 10, 2025 5:24 PM * Telephone Encounter - Nicki Lane MA - 04/10/2025 5:16 PM EDT Pharmacy called to ask if a new Rx could be sent to [facility] instead of [facility] Last office visit:01/16/2025 Future office visit:04/18/2025 Pharmacy phoned to request the following prescription(s) Requested Prescriptions Pending Prescriptions Disp Refills rimegepant (NURTEC ODT) 75 mg disintegrating tablet 8 tablet 11 Sig: dissolve 1 tablet orally AT ONSET OF MIGRAINE and may repeat ONCE PER 24 HOURS IF NEEDED Patient aware RX will be sent to pharmacy. No need to notify patient. Please review. Nicki Lane MA documented in this encounterC[facility]07-09-2025 Telephone encounter Note * Telephone Encounter - Nicki Lane MA - 04/10/2025 5:16 PM EDT Pharmacy called to ask if a new Rx could be sent to [facility] instead of [facility] Last office visit:01/16/2025 Future office visit:04/18/2025 Pharmacy phoned to request the following prescription(s) Requested Prescriptions Pending Prescriptions Disp Refills rimegepant (NURTEC ODT) 75 mg disintegrating tablet 8 tablet 11 Sig: dissolve 1 tablet orally AT ONSET OF MIGRAINE and may repeat ONCE PER 24 HOURS IF NEEDED Patient aware RX will be sent to pharmacy. No need to notify patient. Please review. Nicki Lane MA [facility]07-[facility] Telephone encounter Note* Telephone Encounter - Lynette Mendoza RN - 04/08/2025 3:35 PM EDT Prescription Refill Information The patient has been identified by name and date of : Yes Caregiver verified no other encounters exist for this prescription request: Yes Caregiver confirmed with patient/requestor that no other refills are due, in the near future, with this provider at this time: Yes The last office visit in the department: 10/30/24 Does the patient have a future office visit with this provider/department: Yes, 05/03/25 Requested Prescriptions Pending Prescriptions Disp Refills pantoprazole DR (PROTONIX) 40 mg tablet 180 tablet 3 Sig: Take 1 tablet by mouth two times a day. Lynette Mendoza RN April 08, 2025 3:58 PM [facility]07-07-2025 Miscellaneous Notes* Telephone Encounter - Lynette Mendoza RN - 04/08/2025 3:35 PM EDT Prescription Refill Information The patient has been identified by name and date of : Yes Caregiver verified no other encounters exist for this prescription request: Yes Caregiver confirmed with patient/requestor that no other refills are due, in the near future, with this provider at this time: Yes The last office visit in the department: 10/30/24 Does the patient have a future office visit with this provider/department: Yes, 05/03/25 Requested Prescriptions Pending Prescriptions Disp Refills pantoprazole DR (PROTONIX) 40 mg tablet 180 tablet 3 Sig: Take 1 tablet by mouth two times a day. Lynette Mendoza RN April 08, 2025 3:58 PM documented in this encounterC[facility] Telephone encounter Note * Telephone Encounter - James Harry DO - 03/16/2025 10:48 PM EDT The following approved medication requests have been transmitted electronically. Requested Prescriptions Pending Prescriptions Disp Refills traMADol (ULTRAM) 50 mg tablet 60 tablet 0 Sig: Take 1 tablet by mouth every 12 hours for 30 days. James Harry DO [facility]06-14-2025 Miscellaneous Notes* Telephone Encounter - James Harry DO - 03/16/2025 10:48 PM EDT The following approved medication requests have been transmitted electronically. Requested Prescriptions Pending Prescriptions Disp Refills traMADol (ULTRAM) 50 mg tablet 60 tablet 0 Sig: Take 1 tablet by mouth every 12 hours for 30 days. James Harry DO * Telephone Encounter - Kelley Toscano RN - 03/15/2025 11:51 AM EDT Patient sent MC message to check on status of refill * Telephone Encounter - Kassie Richards MA - 03/14/2025 8:24 AM EDT Last office visit 01/03/25. Follow up appointment scheduled on n/a. Patient phones requesting refills as follows: Requested Prescriptions Pending Prescriptions Disp Refills traMADol (ULTRAM) 50 mg tablet 60 tablet 0 Sig: Take 1 tablet by mouth every 12 hours for 30 days. Please review and advise. Kassie Richards MA documented in this encounterC[facility] Telephone encounter Note * Telephone Encounter - Kelley Toscano RN - 03/15/2025 11:51 AM EDT Patient sent MC message to check on status of refill [facility]06-13-2025 Telephone encounter Note* Telephone Encounter - Kelley Toscano RN - 03/15/2025 11:50 AM EDT See refill encounter from 03/13 [facility]06-13-2025 Miscellaneous Notes* Telephone Encounter - Kelley Toscano RN - 03/15/2025 11:50 AM EDT See refill encounter from 03/13 documented in [facility] encounterC[facility] Telephone encounter Note * Telephone Encounter - Kassie Richards MA - 03/14/2025 8:24 AM EDT Last office visit 01/03/25. Follow up appointment scheduled on n/a. Patient phones requesting refills as follows: Requested Prescriptions Pending Prescriptions Disp Refills traMADol (ULTRAM) 50 mg tablet 60 tablet 0 Sig: Take 1 tablet by mouth every 12 hours for 30 days. Please review and advise. Kassie Richards MA [facility]05-14-2025 Telephone encounter Note* Telephone Encounter - James Harry DO - 02/13/2025 1:35 PM EDT The following approved medication requests have been transmitted electronically. Requested Prescriptions Pending Prescriptions Disp Refills traMADol (ULTRAM) 50 mg tablet 60 tablet 0 Sig: Take 1 tablet by mouth every 12 hours for 30 days. James Harry DO [facility]05-14-2025 Miscellaneous Notes* Telephone Encounter - James Harry DO - 02/13/2025 1:35 PM EDT The following approved medication requests have been transmitted electronically. Requested Prescriptions Pending Prescriptions Disp Refills traMADol (ULTRAM) 50 mg tablet 60 tablet 0 Sig: Take 1 tablet by mouth every 12 hours for 30 days. James Harry DO * Telephone Encounter - Ariana Hernandez MA - 02/13/2025 1:08 PM EDT Patient phones requesting refills as follows: KEYANNA - 01/03/25 Last refill -01/17/25 Requested Prescriptions Pending Prescriptions Disp Refills traMADol (ULTRAM) 50 mg tablet 60 tablet 0 Sig: Take 1 tablet by mouth every 12 hours for 30 days. Please review and advise. Ariana Hernandez MA documented in this encounterC[facility]05-[facility]-2025 Telephone encounter Note * Telephone Encounter - Ariana Hernandez MA - 02/13/2025 1:08 PM EDT Patient phones requesting refills as follows: KEYANNA - 01/03/25 Last refill -01/17/25 Requested Prescriptions Pending Prescriptions Disp Refills traMADol (ULTRAM) 50 mg tablet 60 tablet 0 Sig: Take 1 tablet by mouth every 12 hours for 30 days. Please review and advise. Ariana Hernandez MA [facility]05-12-2025 Telephone encounter Note* Telephone Encounter - Codie Jarrell RN - 02/11/2025 11:31 AM EDT Prescription Refill Information The patient has been identified by name and date of : Yes Caregiver verified no other encounters exist for this prescription request: Yes Caregiver confirmed with patient/requestor that no other refills are due, in the near future, with this provider at this time: No The last office visit in the department: 10/30/24 Does the patient have a future office visit with this provider/department: Yes 05/03/25 Requested Prescriptions Pending Prescriptions Disp Refills fexofenadine (LAURA ALLERGY) 180 mg tablet 90 tablet 3 Sig: Take 1 tablet by mouth once daily. Codie Jarrell RN February 11, 2025 11:33 AM [facility]05-12-2025 Miscellaneous Notes* Telephone Encounter - Codie Jarrell RN - 02/11/2025 11:31 AM EDT Prescription Refill Information The patient has been identified by name and date of : Yes Caregiver verified no other encounters exist for this prescription request: Yes Caregiver confirmed with patient/requestor that no other refills are due, in the near future, with this provider at this time: No The last office visit in the department: 10/30/24 Does the patient have a future office visit with this provider/department: Yes 05/03/25 Requested Prescriptions Pending Prescriptions Disp Refills fexofenadine (LAURA ALLERGY) 180 mg tablet 90 tablet 3 Sig: Take 1 tablet by mouth once daily. Codie Jarrell RN February 11, 2025 11:33 AM documented in this encounterC[facility]04-[facility] Telephone encounter Note * Telephone Encounter - James Harry DO - 01/17/2025 9:52 AM EDT The following approved medication requests have been transmitted electronically. Requested Prescriptions Pending Prescriptions Disp Refills traMADol (ULTRAM) 50 mg tablet 60 tablet 0 Sig: Take 1 tablet by mouth every 12 hours for 30 days. James Harry DO [facility]04-17-2025 Miscellaneous Notes* Telephone Encounter - James Harry DO - 01/17/2025 9:52 AM EDT The following approved medication requests have been transmitted electronically. Requested Prescriptions Pending Prescriptions Disp Refills traMADol (ULTRAM) 50 mg tablet 60 tablet 0 Sig: Take 1 tablet by mouth every 12 hours for 30 days. James Harry DO * Telephone Encounter - Kassie Richards MA - 01/17/2025 9:46 AM EDT Last office visit 01/03/25. Follow up appointment scheduled on n/a. Patient phones requesting refills as follows: Requested Prescriptions Pending Prescriptions Disp Refills traMADol (ULTRAM) 50 mg tablet 60 tablet 0 Sig: Take 1 tablet by mouth every 12 hours for 30 days. Please review and advise. Kassie Richards MA documented in this encounterC[facility]04-[facility]-2025 Telephone encounter Note * Telephone Encounter - Kassie Richards MA - 01/17/2025 9:46 AM EDT Last office visit 01/03/25. Follow up appointment scheduled on n/a. Patient phones requesting refills as follows: Requested Prescriptions Pending Prescriptions Disp Refills traMADol (ULTRAM) 50 mg tablet 60 tablet 0 Sig: Take 1 tablet by mouth every 12 hours for 30 days. Please review and advise. Kassie Richards MA [facility]04-16-2025 Instructions* Patient Instructions* Sharron Hollis APRN.ASBESTOS MICROSCOPIST - 01/16/2025 11:19 AM EDT AFTER VISIT CARE BOTOX INJECTION While these procedures can be extremely helpful as part of your headache treatment plan, they can irritate the muscles and tissues in your head, neck and shoulders. Proper follow-up care is important to avoid muscle spasms and temporary pain increase within the following 3-5 days after your clinic visit. Here are some tips to help decrease side-effects that may occur and maximize the effectiveness of your pain relief -HYDRATION Hydration is important to help nourish your muscles and tissues. Drink 60-80 oz of non caffeinated fluid at least for 3 days after your visit. -REST Rest will help avoid further irritation of muscle and tissues. Remember that you need to give your body time to adjust. NO strenuous activity for at least the first 24 hours after your visit. Gentle stretching, yoga, meditation or even swimming is OK and encouraged. -ICE/HEAT Since these procedures irritate muscles, there can be some swelling. Alternating ice and heat every3-5 times per day may help decrease this, while also optimizing pain relief Use cool gel packs for ice for 10 min. Use a warm moist towel covered with a dry towel on neck and shoulders. Alternate stretching each side of the neck. -STRETCHING Slow, gentle stretching of the neck and shoulders once every hour is helpful to avoid muscle spasms. -TREAT MUSCLE SPASMS If you are already prescribed a muscle relaxer such as baclofen, tizanidine or flexeril, use as directed. If you do not have one, talk to your provider to find out if this would be safe for you to use. Do not rub or massage the area for 48-72 hours. -OTHER No hair dyes or permanents for 24 hours. If you are paying out of pocket for Botox go online to Botox Savings Program and see if you qualifyfor reimbursement. Return in 3 months for your next Botox Injection documented in this encounterC[facility]04-[facility]-2025 History of Present illness Narrative* Sharron Hollis APRN.CNP - 01/16/2025 11:00 AM EDT Headache Center Follow-up Visit Impression: Chronic migraine without aura, intractable, without status migrainosus (primary encounter diagnosis) Marcial Lai Yeung has been previously approved for an Oral Calcitonin Gene-Related Peptide Receptor Antagonist (GEPANT) Rimegepant for the treatment of abortive use. The patient has demonstrated the following: Provider attests patient has had a positive clinical response: Yes Patient will not use with another Oral Calcitonin Gene-Related Peptide Receptor Antagonist (GEPANT): Yes Patient's quality of life and ability to perform ADLs has improved: Yes The patient has tried and failed the following : We suggest the patient continue treatment with GEPANT Rimegepant. The following preventative medications have been tried for three or more months without benefit: Anti-Convulsant Gabapentin (Neurontin) Topiramate (Topamax, Trokendi XL, Qudexy) Anti-Depressant and Antipsychotic Amitriptyline (Elavil) Bupropion (Wellbutrin) Citalopram (Celexa) Fluoxetine (Prozac) Venlafaxine (Effexor) Blood Pressure Metoprolol (Lopressor,Toprol XL) Propranolol (Inderal) Botulinum Toxin Onabotulinum Toxin A (Botox) Supplements Magnesium The following abortive medications have been tried but require high frequency use which can lead toMedication Overuse Headache: Analgesic Hydrocodone/Acetaminophen (Vicodin, [place]) Hydromorphone (Dilaudid) Meloxicam (Mobic) Meperidine (Demerol) Oxycodone Oxycodone/Acetaminophen (Percocet) Tramadol (Ultram) Anti-Anxiety Lorazepam (Ativan) Anti-Migraine Rizatriptan (Maxalt) Sumatriptan (Imitrex, Sumavel) GEPANTS Ubrogepant (Ubrelvy) Rimegepant (Nurtec) Over the Counter Medications Acetaminophen (Tylenol) Acetaminophen/Aspirin/Caffeine (Excedrin, Goody s) Aspirin Ibuprofen (Advil, Motrin) Naproxen sodium (Aleve) Follow-Up Onabotulinum Toxin A (BotoxTM) for Migraine Indication: Chronic Intractable Migraine Referral Expiration: 09/11/2025 Prior to the initiation of the FIRST treatment with Onabotulinum Toxin A, the patient reported the following average headache frequency over the past 3 MONTHS: Number of moderate-severe migraine days/month: 25 Number of mild migraine days/month: 0 Number of headache free days/month: 5 (120 headache-free hours) After treatment with Onabotulinum Toxin A: Number of moderate-severe migraine days/month: 2 Number of mild migraine days/month: 8 Number of headache free days/month: 20 (480 headache-free hours) Patient reduction in overall migraine days: Yes Patient reduction in moderate-severe migraine days: Yes Patient reduction of headache hours by 100 hours or more: Yes (reduction of 360 hours) Individual has obtained clinical benefit deemed significant by individual or prescriber (Y/N): Yes Patient's quality of life and ability to perform ADLs has improved (Y/N): Yes Side effects: none The patient has been assessed for disorders which could contribute to breathing or swallowing difficulty, and there is no contraindication with PREEMPT Botox. There is no documented allergic reaction/hypersensitivity to any botulinum toxin and there is no active infection at proposed injection site. HEADACHE SCORES: 04/17/2024 07/17/2024 10/17/2024 Headache Questions ER visits since last office visit: 0 0 0 Hospital stays since last office visit 0 0 0 Limited ADLs in the last month: 0 1 0 Days missed from work or school in the last month: 0 0 0 Days headache pain free in the last month: 25 25 20 Days per month with ALL of the following symptoms - decreased productivity, light sensitivity and nausea: 0 1 0 Initial improvement of headache after botox injection at last visit: Much improved Much improved Much improved PRN medication usage in the last month: 6 5 Patient impression of improvement since last visit: No change No change No change 04/17/2024 07/17/2024 10/17/2024 HIT-6 HIT-6 40 (Little or no impact) 46 (Little or no impact) 40 (Little or no impact) 07/17/2024 10/17/2024 12/29/2024 KEYONNA - 2/7 SCORES KEYONNA-2 Score 0 0 0 KEYONNA-7 Score 0 04/17/2024 07/17/2024 10/17/2024 Migraine Specific QOL - Higher scores indicate better HRQL Role Function-Restrictive Transformed Score (range: 0-100) 100 97.14 97.14 Role Function-Preventive Transformed Score (range: 0-100) 100 100 100 Emotional Function Transformed Score (range: 0-100) 100 100 100 10/17/2024 07/26/2024 07/17/2024 PHQ-9 Score 2 2 2 BP 125/85 Pulse 68 Ht 157.5 cm (5' 2") Wt 66.7 kg (147 lb) LMP 05/06/2014 BMI 26.89 kg/m Patient name: Marcial Yeung : 1965 ALLERGIES Allergen Reactions 2-Octyl Cyanoacryla* Rash Blistering contact reaction Citalopram Other: See Comments Did not tolerate, ? Mental status changes Liquid Bandage [Enb* Rash blisters and rash Propranolol Mental Status Change Tetracycline GI Upset Abdominal pain/cramping UNIVERSAL PROTOCOL / SAFETY CHECKLIST Procedure: Onabotulinum toxin A for migraine Informed Consent Consent Obtained: Written [place] Protocol A moment to CARE was completed SIGN IN Personnel directly involved with the procedure wore the appropriate PPE Special Equipment: N/A Patient/Surrogate Stated/Verified: Patient name, Date of , Relevant allergies and Intended procedure TIME OUT No relevant labs, photos, and/or imaging studies were applicable for review. Consent documented and matches the intended procedure No correct side/site applicable for marking and visibility. No medications required for procedure. No fire risk assessment and interventions applicable. No implant(s) inserted. SIGN OUT No specimen collected. Written Consent Obtained: Written LOT #: [id number] Expiration Date: Month: Year: 2026 Second vial: LOT #: [id number] Expiration Date: Month: 5 Year: 2026 Injection Sites Left (Units) Left (Sites) Right (Units) Right (Sites) TOTAL (Units) Pesticide Chemist 5 1 5 1 10 Procerus Units: 5 Sites: 1 5 Frontalis 10 2 10 2 20 Temporalis optional follow the pain 20 5 4 1 20 5 4 1 50 Occipitalis optional follow the pain 15 10 3 2 15 10 3 2 50 Cervical PSP 10 2 10 2 20 Trapezius optional follow the pain 15 7.5 3 2 15 7.5 3 2 45 Total Units used: 200 Total Units wasted: 0 Patient tolerated procedure well. Prior Therapies Duration of Use Dose Side effect Analgesic Hydrocodone/Acetaminophen (Vicodin, [place]) Hydromorphone (Dilaudid) Meloxicam (Mobic) Meperidine (Demerol) Oxycodone Oxycodone/Acetaminophen (Percocet) Tramadol (Ultram) Anti-Anxiety Lorazepam (Ativan) Anti-Convulsant Gabapentin (Neurontin) Topiramate (Topamax, Trokendi XL, Qudexy) Anti-Depressant and Antipsychotic Amitriptyline (Elavil) Bupropion (Wellbutrin) Citalopram (Celexa) Fluoxetine (Prozac) Venlafaxine (Effexor) Antiemetics Metoclopramide Ondansetron Prochlorperazine Promethazine Anti-Migraine Rizatriptan (Maxalt) Sumatriptan (Imitrex, Sumavel) Blood Pressure Metoprolol (Lopressor,Toprol XL) Propranolol (Inderal) GEPANTS Ubrogepant (Ubrelvy) Rimegepant (Nurtec) Botulinum Toxin Onabotulinum Toxin A (Botox) Muscle Relaxer Cyclobenzaprine (Flexeril) Sleep Aids Trazodone (Desyrel) Zolpidem (Ambien) Supplements Magnesium Other Medications Dexamethasone (Decadron) Prednisone Over the Counter Medications Acetaminophen (Tylenol) Acetaminophen/Aspirin/Caffeine (Excedrin, Goody s) Aspirin Ibuprofen (Advil, Motrin) Naproxen sodium (Aleve) Sharron Hollis APRN.ROLAND documented in this encounterC[facility]04-[facility]-2025 NoteHNO ID: [id number] Author: SHARRON HOLLIS APRN.CNP Service: ? Author Type: Nurse Practitioner Type: Progress Notes Filed: 01/16/2025 11:33 Note Text: Headache Center Follow-up Visit Impression: Chronic migraine without aura, intractable, without status migrainosus (primary encounter diagnosis) Marcial Yeung has been previously approved for an Oral Calcitonin Gene-Related Peptide Receptor Antagonist (GEPANT) Rimegepant for the treatment of abortive use. The patient has demonstrated the following: Provider attests patient has had a positive clinical response: Yes Patient will not use with another Oral Calcitonin Gene-Related Peptide Receptor Antagonist (GEPANT): Yes Patient's quality of life and ability to perform ADLs has improved: Yes The patient has tried and failed the following : We suggest the patient continue treatment with GEPANT Rimegepant. The following preventative medications have been tried for three or more months without benefit: Anti-Convulsant Gabapentin (Neurontin) Topiramate (Topamax, Trokendi XL, Qudexy) Anti-Depressant and Antipsychotic Amitriptyline (Elavil) Bupropion (Wellbutrin) Citalopram (Celexa) Fluoxetine (Prozac) Venlafaxine (Effexor) Blood Pressure Metoprolol (Lopressor,Toprol XL) Propranolol (Inderal) Botulinum Toxin Onabotulinum Toxin A (Botox) Supplements Magnesium The following abortive medications have been tried but require high frequency use which can lead to Medication Overuse Headache: Analgesic Hydrocodone/Acetaminophen (Vicodin, [place]) Hydromorphone (Dilaudid) Meloxicam (Mobic) Meperidine (Demerol) Oxycodone Oxycodone/Acetaminophen (Percocet) Tramadol (Ultram) Anti-Anxiety Lorazepam (Ativan) Anti-Migraine Rizatriptan (Maxalt) Sumatriptan (Imitrex, Sumavel) GEPANTS Ubrogepant (Ubrelvy) Rimegepant (Nurtec) Over the Counter Medications Acetaminophen (Tylenol) Acetaminophen/Aspirin/Caffeine (Excedrin, Goody?s) Aspirin Ibuprofen (Advil, Motrin) Naproxen sodium (Aleve) Follow-Up Onabotulinum Toxin A (BotoxTM) for Migraine Indication: Chronic Intractable Migraine Referral Expiration: 09/11/2025 Prior to the initiation of the FIRST treatment with Onabotulinum Toxin A, the patient reported the following average headache frequency over the past 3 MONTHS: Number of moderate-severe migraine days/month: 25 Number of mild migraine days/month: 0 Number of headache free days/month: 5 (120 headache-free hours) After treatment with Onabotulinum Toxin A: Number of moderate-severe migraine days/month: 2 Number of mild migraine days/month: 8 Number of headache free days/month: 20 (480 headache-free hours) Patient reduction in overall migraine days: Yes Patient reduction in moderate-severe migraine days: Yes Patient reduction of headache hours by 100 hours or more: Yes (reduction of 360 hours) Individual has obtained clinical benefit deemed significant by individual or prescriber (Y/N): Yes Patient's quality of life and ability to perform ADLs has improved (Y/N): Yes Side effects: none The patient has been assessed for disorders which could contribute to breathing or swallowing difficulty, and there is no contraindication with PREEMPT Botox. There is no documented allergic reaction/hypersensitivity to any botulinum toxin and there is no active infection at proposed injection site. HEADACHE SCORES: 04/17/2024 07/17/2024 10/17/2024 Headache Questions ER visits since last office visit: 0 0 0 Hospital stays since last office visit 0 0 0 Limited ADLs in the last month: 0 1 0 Days missed from work or school in the last month: 0 0 0 Days headache pain free in the last month: 25 25 20 Days per month with ALL of the following symptoms - decreased productivity, light sensitivity and nausea: 0 1 0 Initial improvement of headache after botox injection at last visit: Much improved Much improved Much improved PRN medication usage in the last month: 6 5 Patient impression of improvement since last visit: No change No change No change 04/17/2024 07/17/2024 10/17/2024 HIT-6 HIT-6 40 (Little or no impact) 46 (Little or no impact) 40 (Little or no impact) 07/17/2024 10/17/2024 12/29/2024 KEYONNA - 2/7 SCORES KEYONNA-2 Score 0 0 0 KEYONNA-7 Score 0 04/17/2024 07/17/2024 10/17/2024 Migraine Specific QOL - Higher scores indicate better HRQL Role Function-Restrictive Transformed Score (range: 0-100) 100 97.14 97.14 Role Function-Preventive Transformed Score (range: 0-100) 100 100 100 Emotional Function Transformed Score (range: 0-100) 100 100 100 10/17/2024 07/26/2024 07/17/2024 PHQ-9 Score 2 2 2 BP 125/85 Pulse 68 Ht 157.5 cm (5' 2") Wt 66.7 kg (147 lb) LMP 05/06/2014 BMI 26.89 kg/m? Patient name: Marcial Yeung : 1965 ALLERGIES Allergen Reactions 2-Octyl Cyanoacryla* Rash Blistering contact reaction Citalopram Other: See Comments Did not tolerate, ? Mental s (more content not included)...[facility]04-03-2025 Instructions* Patient Instructions* James Harry DO - 01/03/2025 11:36 AM EDT [email or web address] documented in this encounterCleveland Clinic [facility]04-03-2025 NoteHNO ID: [id number] Author: JAMES HARRY DO Service: ? Author Type: Physician Type: Progress Notes Filed: 01/03/2025 13:04 Note Text: DISTANCE HEALTH VISIT This Team Access Model visit is a virtual encounter. It required patient-provider interaction for the medical decision making as documented below. The patient agrees to have telehealth encounter today in place of in person visit. I have communicated my name and active licensure. The patient's identity and physical location were verified at the time of this visit. Either the patient or their legal sales representative wire rope has been informed of the risks and benefits of -- and alternatives to -- treatment through a remote evaluation and consents to proceed with the evaluation remotely. Marcial Yeung is a 59 year old female seen for medication follow up. Pain fluctuates- "some days are worse than others". Doing home PT exercises regularly. Plans to f/u with ortho at some point for her hip/back pains. Taking tramadol and Zanaflex as prescribed to help with pain control. Latest Ref Rng 07/26/2024 Protein, Total 6.3 - 8.0 g/dL 6.7 Albumin 3.9 - 4.9 g/dL 4.5 Calcium 8.5 - 10.2 mg/dL 9.5 Bilirubin, Total 0.2 - 1.3 mg/dL 0.2 Alkaline Phosphatase 34 - 123 U/L 61 AST 13 - 35 U/L 22 ALT 7 - 38 U/L 36 Glucose 74 - 99 mg/dL 96 BUN 7 - 21 mg/dL 14 Creatinine 0.58 - 0.96 mg/dL 0.99 (H) Sodium 136 - 144 mmol/L 140 Potassium 3.7 - 5.1 mmol/L 4.3 Chloride 98 - 107 mmol/L 104 CO2 22 - 30 mmol/L 27 Anion Gap 8 - 15 mmol/L 9 eGFR >=60 mL/min/1.73m? 66 WBC 3.70 - 11.00 k/uL 9.46 RBC 3.90 - 5.20 m/uL 4.31 Hemoglobin 11.5 - 15.5 g/dL 12.5 Hematocrit 36.0 - 46.0 % 39.7 MCV 80.0 - 100.0 fL 92.1 MCH 26.0 - 34.0 pg 29.0 MCHC 30.5 - 36.0 g/dL 31.5 RDW-CV 11.5 - 15.0 % 13.0 Platelet Count 150 - 400 k/uL 371 MPV 9.0 - 12.7 fL 10.2 Absolute nRBC <0.01 k/uL <0.01 Iron 41 - 186 ug/dL 81 TIBC 232 - 386 ug/dL 338 Transferrin Saturation 15.0 - 57.0 % 24.0 Ferritin 14.7 - 205.1 ng/mL 53.3 TSH 0.270 - 4.200 mIU/L 1.470 Legend: (H) High PDMP website checked and validated. All prescriptions have been APPROPRIATELY filled. No suspicious activity was identified. 01/03/2025 by James Harry DO HISTORY REVIEWED (electronic chart updated): - medical history - medications - allergies REVIEW OF SYSTEMS: As noted in HPI PHYSICAL EXAMINATION: VIDEO EXAM: (if done, performed via video enabled technology) GENERAL: alert and appropriate, in no distress, well-hydrated, well nourished, interactive SKIN: no rash noted HEAD: normocephalic, no abnormality or lesion noted RESPIRATORY: breathing non-labored NEUROLOGIC: no obvious deficit ASSESSMENT/PLAN: I spent 20 minutes in the visit, with more than 50% of the total kdui-op-plhu time of the visit in counseling / coordination of care. ASSESSMENT/PLAN: 1. Tear of left acetabular labrum, subsequent encounter - ICD9: V58.89, 843.8, ICD10: S73.192D (primary diagnosis) 2. Chronic midline low back pain without sciatica - ICD9: 724.2, 338.29, ICD10: M54.50, G89.29 3. Tendinopathy of left gluteal region - ICD9: 726.5, ICD10: M67.952 Recommended [employer] and a youtube resource to help with the patient's symptoms related to her acetabular labral tear and confucianism of the range of motion. Continue current treatment plan and follow-up with orthopedics if symptoms persist or worsen. James Harry DO 01/03/2025 11:31 AM This information was communicated and forwarded to patient via [employer].[facility]04-03-2025 History of Present illness Narrative* James Harry DO - 01/03/2025 11:30 AM EDT DISTANCE HEALTH VISIT This Team Access Model visit is a virtual encounter. It required patient- provider interaction for the medical decision making as documented below. The patient agrees to have telehealth encounter today in place of in person visit. I have communicated my name and active licensure. The patient's identity and physical location were verified at the time of this visit. Either the patient or their legalrepresentative has been informed of the risks and benefits of -- and alternatives to -- treatment through a remote evaluation and consents to proceed with the evaluation remotely. Marcial Yeung is a 59 year old female seen for medication follow up. Pain fluctuates- "some days are worse than others". Doing home PT exercises regularly. Plans to f/uwith ortho at some point for her hip/back pains. Taking tramadol and Zanaflex as prescribed to helpwith pain control. Latest Ref Rng 07/26/2024 Protein, Total 6.3 - 8.0 g/dL 6.7 Albumin 3.9 - 4.9 g/dL 4.5 Calcium 8.5 - 10.2 mg/dL 9.5 Bilirubin, Total 0.2 - 1.3 mg/dL 0.2 Alkaline Phosphatase 34 - 123 U/L 61 AST 13 - 35 U/L 22 ALT 7 - 38 U/L 36 Glucose 74 - 99 mg/dL 96 BUN 7 - 21 mg/dL 14 Creatinine 0.58 - 0.96 mg/dL 0.99 (H) Sodium 136 - 144 mmol/L 140 Potassium 3.7 - 5.1 mmol/L 4.3 Chloride 98 - 107 mmol/L 104 CO2 22 - 30 mmol/L 27 Anion Gap 8 - 15 mmol/L 9 eGFR >=60 mL/min/1.73m 66 WBC 3.70 - 11.00 k/uL 9.46 RBC 3.90 - 5.20 m/uL 4.31 Hemoglobin 11.5 - 15.5 g/dL 12.5 Hematocrit 36.0 - 46.0 % 39.7 MCV 80.0 - 100.0 fL 92.1 MCH 26.0 - 34.0 pg 29.0 MCHC 30.5 - 36.0 g/dL 31.5 RDW-CV 11.5 - 15.0 % 13.0 Platelet Count 150 - 400 k/uL 371 MPV 9.0 - 12.7 fL 10.2 Absolute nRBC <0.01 k/uL <0.01 Iron 41 - 186 ug/dL 81 TIBC 232 - 386 ug/dL 338 Transferrin Saturation 15.0 - 57.0 % 24.0 Ferritin 14.7 - 205.1 ng/mL 53.3 TSH 0.270 - 4.200 mIU/L 1.470 Legend: (H) High PDMP website checked and validated. All prescriptions have been APPROPRIATELY filled. No suspiciousactivity was identified. 01/03/2025 by James Harry DO HISTORY REVIEWED (electronic chart updated): - medical history - medications - allergies REVIEW OF SYSTEMS: As noted in HPI PHYSICAL EXAMINATION: VIDEO EXAM: (if done, performed via video enabled technology) GENERAL: alert and appropriate, in no distress, well-hydrated, well nourished, interactive SKIN: no rash noted HEAD: normocephalic, no abnormality or lesion noted RESPIRATORY: breathing non-labored NEUROLOGIC: no obvious deficit ASSESSMENT/PLAN: I spent 20 minutes in the visit, with more than 50% of the total tmln-cp-tgmh time of the visit in counseling / coordination of care. ASSESSMENT/PLAN: 1. Tear of left acetabular labrum, subsequent encounter - ICD9: V58.89, 843.8, ICD10: S73.192D (primary diagnosis) 2. Chronic midline low back pain without sciatica - ICD9: 724.2, 338.29, ICD10: M54.50, G89.29 3. Tendinopathy of left gluteal region - ICD9: 726.5, ICD10: M67.952 Recommended [employer] and a [employer] resource to help with the patient's symptoms related to heracetabular labral tear and confucianism of the range of motion. Continue current treatment plan and follow-up with orthopedics if symptoms persist or worsen. James Harry DO 01/03/2025 11:31 AM This information was communicated and forwarded to patient via For[employer]. [facility]* Diagnosis Onset Date Resolution Status Admit Date Dysphagia acute December 21 12:54pm Irritable bowel syndrome wit h diarrhea acute December 21, 2024 12:54pm Gastroesophageal reflux disease none active December 21, 2024 12:54pm [facility] Work Phone: 1(634) 341-155203-20-2025 Telephone encounter Note* Telephone Encounter - Dasia Raymond - 12/20/2024 10:49 AM EDT Pt is scheduled 01/[address] Harry[address] [facility]03-20-2025 Miscellaneous Notes* Telephone Encounter - Dasia Raymond - 12/20/2024 10:49 AM EDT Pt is scheduled 4/[address] Harry. * Telephone Encounter - James Harry DO - 12/20/2024 9:24 AM EDT The following approved medication requests have been transmitted electronically. Requested Prescriptions Pending Prescriptions Disp Refills traMADol (ULTRAM) 50 mg tablet 60 tablet 0 Sig: Take 1 tablet by mouth every 12 hours for 30 days. James Harry DO * Telephone Encounter - Kassie Richards MA - 12/20/2024 9:17 AM EDT Patient phones requesting refills as follows: Requested Prescriptions Pending Prescriptions Disp Refills traMADol (ULTRAM) 50 mg tablet 60 tablet 0 Sig: Take 1 tablet by mouth every 12 hours for 30 days. Please review and advise. Kassie Richards MA documented in this encounterC[facility]03-[facility]25 Telephone encounter Note * Telephone Encounter - James Harry DO - 12/20/2024 9:24 AM EDT The following approved medication requests have been transmitted electronically. Requested Prescriptions Pending Prescriptions Disp Refills traMADol (ULTRAM) 50 mg tablet 60 tablet 0 Sig: Take 1 tablet by mouth every 12 hours for 30 days. James Harry DO [facility]03-20-2025 Telephone encounter Note* Telephone Encounter - Kassie Richards MA - 12/20/2024 9:17 AM EDT Patient phones requesting refills as follows: Requested Prescriptions Pending Prescriptions Disp Refills traMADol (ULTRAM) 50 mg tablet 60 tablet 0 Sig: Take 1 tablet by mouth every 12 hours for 30 days. Please review and advise. Kassie Richards MA [facility]02-24-[facility]25 Telephone encounter Note* Telephone Encounter - Hudson Sharma RN - 11/26/2024 3:36 PM EST Ambulatory Pharmacy Prior Authorization Note Provider Intervention Required?: No - Pharmacy completed on your behalf. Was the PA documented within the ePA workqueue?: Yes View the status history of the prior authorization in the Auth Tab within Chart Review Additional Information: For questions relating to this submission, please contact [facility] at [phone] [facility] Work Phone: 1(723) 376-398302-24-2025 Miscellaneous Notes* Telephone Encounter - Hudson Sharma RN - 11/26/2024 3:36 PM EST Ambulatory Pharmacy Prior Authorization Note Provider Intervention Required?: No - Pharmacy completed on your behalf. Was the PA documented within the ePA workqueue?: Yes View the status history of the prior authorization in the Auth Tab within Chart Review Additional Information: For questions relating to this submission, please contact [facility] at [phone] documented in this encounterC[facility] Telephone encounter Note * Telephone Encounter - James Harry DO - 11/22/2024 10:48 AM EST The following approved medication requests have been transmitted electronically. Requested Prescriptions Pending Prescriptions Disp Refills traMADol (ULTRAM) 50 mg tablet 60 tablet 0 Sig: Take 1 tablet by mouth every 12 hours for 30 days. James Harry DO [facility]02-20-2025 Miscellaneous Notes* Telephone Encounter - James Harry DO - 11/22/2024 10:48 AM EST The following approved medication requests have been transmitted electronically. Requested Prescriptions Pending Prescriptions Disp Refills traMADol (ULTRAM) 50 mg tablet 60 tablet 0 Sig: Take 1 tablet by mouth every 12 hours for 30 days. James Harry DO * Telephone Encounter - Rebecca Servin MA - 11/22/2024 10:36 AM EST 01/30/25 KEYAN[place] 07/26/24 Patient electronically sent a request for the following prescription(s) Requested Prescriptions Pending Prescriptions Disp Refills traMADol (ULTRAM) 50 mg tablet 60 tablet 0 Sig: Take 1 tablet by mouth every 12 hours for 30 days. Patient aware RX will be sent to pharmacy. No need to notify patient. Please review. Rebecca Servin MA documented in this encounterC[facility]02-[facility]-2025 Telephone encounter Note * Telephone Encounter - Rebecca Servin MA - 11/22/2024 10:36 AM EST 01/30/25 KEYANNA 07/26/24 Patient electronically sent a request for the following prescription(s) Requested Prescriptions Pending Prescriptions Disp Refills traMADol (ULTRAM) 50 mg tablet 60 tablet 0 Sig: Take 1 tablet by mouth every 12 hours for 30 days. Patient aware RX will be sent to pharmacy. No need to notify patient. Please review. Rebecca Servin MA [facility]02-12-2025 Telephone encounter Note* Telephone Encounter - Sharron Hollis APRN.CNP - 11/14/2024 2:44 PM EST The following approved medication requests have been transmitted electronically. Requested Prescriptions Signed Prescriptions Disp Refills rimegepant (NURTEC ODT) 75 mg disintegrating tablet 8 tablet 11 Sig: dissolve 1 tablet orally AT ONSET OF MIGRAINE and may repeat ONCE PER 24 HOURS IF NEEDED Authorizing Provider: SHARRON HOLLIS APRN.CNP November 14, 2024 2:44 PM [facility]02-12-2025 Miscellaneous Notes* Telephone Encounter - Sharron Hollis APRN.CNP - 11/14/2024 2:44 PM EST The following approved medication requests have been transmitted electronically. Requested Prescriptions Signed Prescriptions Disp Refills rimegepant (NURTEC ODT) 75 mg disintegrating tablet 8 tablet 11 Sig: dissolve 1 tablet orally AT ONSET OF MIGRAINE and may repeat ONCE PER 24 HOURS IF NEEDED Authorizing Provider: SHARRON HOLLIS APRN.CNP November 14, 2024 2:44 PM * Telephone Encounter - Kassidy Mcintyre - 11/14/2024 9:47 AM EST Physician: Sal Call from patient requesting refill. Please E-Scribe Last OV: 10/23/2024 with Sal Future OV: 01/16/2025 with Sal PA NEEDED Requested Prescriptions Pending Prescriptions Disp Refills rimegepant (NURTEC ODT) 75 mg disintegrating tablet 8 tablet 11 Sig: dissolve 1 tablet orally AT ONSET OF MIGRAINE and may repeat ONCE PER 24 HOURS IF NEEDED Pharmacy Name: [facility] documented in this encounterC[facility]02[facility] Telephone encounter Note * Telephone Encounter - Carole Samaniego - 11/14/2024 11:33 AM EST Patient last seen on 10/23/24 [place] [address]-12-2025 Miscellaneous Notes* Telephone Encounter - Carole Samaniego - 11/14/2024 11:33 AM EST Patient last seen on 10/23/24 documented in this encounterC[facility]02-[facility]-2025 Telephone encounter Note * Telephone Encounter - Kassidy Mcintyre - 11/14/2024 9:47 AM EST Physician: Sal Call from patient requesting refill. Please E-Scribe Last OV: 10/23/2024 with Sal Future OV: 01/16/2025 with Sal PA NEEDED Requested Prescriptions Pending Prescriptions Disp Refills rimegepant (NURTEC ODT) 75 mg disintegrating tablet 8 tablet 11 Sig: dissolve 1 tablet orally AT ONSET OF MIGRAINE and may repeat ONCE PER 24 HOURS IF NEEDED Pharmacy Name: [facility]02-11-20[facility] Telephone encounter Note* Telephone Encounter - Dianna Garcia - 11/13/2024 10:10 AM EST LVM for pt to c/b to schedule sleep medicine appt [facility]02-11-2025 Miscellaneous Notes* Telephone Encounter - Dianna Garcia - 11/13/2024 10:10 AM EST LVM for pt to c/b to schedule sleep medicine appt documented in this encounterC[facility]02-04-2025 Telephone encounter Note * Telephone Encounter - Geno Maria - 11/06/2024 7:53 AM EST Patient last seen 10/23/2024. [facility]02-04-2025 Miscellaneous Notes* Telephone Encounter - Geno Maria - 11/06/2024 7:53 AM EST Patient last seen 10/23/2024. documented in this encounterC[facility]01-28-2025 Telephone encounter Note * Telephone Encounter - Ynes Wiseman - 10/30/2024 12:19 PM EST Sleep Medicine referral faxed over to Dr. Langley's office for scheduling. Ynes Wiseman October 30, 2024 12:19 PM [facility]01-28-2025 Miscellaneous Notes* Telephone Encounter - Ynes Wiseman - 10/30/2024 12:19 PM EST Sleep Medicine referral faxed over to Dr. Langley's office for scheduling. Yens Wiseman October 30, 2024 12:19 PM documented in this encounterCleveland Clinic [facility]01-28-2025 NoteHNO ID: [id number] Author: DEVEN LOGAN MD Service: ? Author Type: Physician Type: Progress Notes Filed: 10/30/2024 12:56 Note Text: Allergy AND Immunology Established Visit PATIENT NAME: Marcial Yeung SERVICE DATE: 10/30/2024 HPI: The patient is a 59-year-old female presenting with complaints related to chronic rhinitis and mild persistent asthma. She has experienced ongoing symptoms related to rhinitis, including nasal congestion and irritation, which she reports managing with nasal sprays. She noted a reduction in viral infections since beginning nasal aerosol treatments. She is concerned about asthma symptoms, although these have not exacerbated. She discussed past interventions for PVC and WPW syndrome, noting that an ablation was performed for WPW, which is resolved, though PVC symptoms persist. She occasionally experiences exacerbations of PVC, which she attributes to environmental triggers, notably strong smells. The patient has also reported issues with hoarseness likely related to her history of inducible laryngeal obstruction and vasomotor rhinitis. There is a noted impact of environmental factors such as weather changes and strong odors on her symptoms and general health. She has a family history suggestive of potential sleep disorders. She also experiences allergic reactions such as dermatitis due to adhesive contact. 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 flecainide; indication: symptomatic PSVT with WPW syndrome Other anxiety states Palpitations Paroxysmal supraventricular tachycardia (HCC) see "WPW Syndrome" Primary insomnia 06/11/2015 Sinus tachycardia 10/20/2023 Stress incontinence, female Unspecified asthma(493.90) 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; attempt at catheter ablation 11/2016 failed; she continues to experience intermittent palpitations and tachycardia despite treatment with flecainide; successful RFCA 03/2018 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 (Cadbj-Cbfgfldqs-Dmbcg Syndrome) Gastro-Esophageal Reflux Disease Without Esophagitis Chronic Sinusitis, Unspecified Benign Neoplasm of Unspecified Ovary Asymptomatic Menopausal State Anxiety Disorder, Unspecified Acquired Absence of Both Cervix and Uterus Paroxysmal Supraventricular Tachycardia (Hcc) Palpitations Status Post Ablation of Accessory Bypass Tract Dyspareunia Chronic Mixed Headache Syndrome Chronic Migraine Without Aura, With Intractable Migraine, So Stated, With Status Migrainosus Intractable Chronic Migraine Without Aura and Without Status Migrainosus Chronic Daily Headache Musculoskeletal Pain Cervicalgia Chronic Tension-Type Headache, Intractable Reflux Esophagitis Intractable Chronic Migraine Without Aura and With Status Migrainosus Internal Hemorrhoids Migraine Without Aura and Without Status Migrainosus, Not Intractable Bilateral Occipital Neuralgia History of Fusion of Cervical Spine Irritable Bowel Syndrome With Diarrhea Sinus Tachycardia Chronic Migraine Without Aura, Intractable, Without Status Migrainosus Mild Persistent Asthma Without Complication Allergic Conjunctivitis, Bilateral Chronic Rhinitis Pvc (Premature Ventricular Contraction) Vasomotor Rhinitis 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Ilo) Allergic Contact Dermatitis Due to Adhesives Hoarseness of Voice Essential Tremor Tear of Left Acetabular Labrum Pain of Left Hip Tendinopathy of Left Gluteal Region PAST SURGICAL HISTORY Procedure Laterality Date BLADDER SURGERY HX 11/2015 bladder sling BREAST AUGMENTATION WITH IMPLANT 11/2007 Breast augmentation CARDIAC MONITORING CONTINUOUS 05/25/2018 96 hours monitoring: sinus rhythm, sinus tachycardia; patient event activations and/or reported symptoms correlated with sinus rhythm and sinus tachycardia DELIVERY ONLY 85, 88,92 , low cervical X3 COLONOSCOPY 06/2021 EGD 2019 LIGATION OF HEMORRHOID(S) 10/07/2020 IUD INSERTION ([employer])_*FL 08/30/2007 Mirena - removed LAPAROSCOPY SURG CHOLECYSTECTOMY 11/16/2017 [facility] OOPHORECTOMY, PART/TOTAL UNILAT/BILAT 2016 PAST SURGICAL HISTORY OF 09/2021 C4-C6 disc replacement S PK LAVH [id number] 2013 lavh RICKY biltareal salpingectomy SVT ABLATION W/ EP COMPLETE 11/24/2016 [place] (more content not included)...[facility]01-28-[facility] History of Present illness Narrative* Deven Logan MD - 10/30/2024 10:38 AM EST Images from the original note were not included. Allergy & Immunology Established Visit PATIENT NAME: Marcial Yeung SERVICE DATE: 10/30/2024 HPI: The patient is a 59-year-old female presenting with complaints related to chronic rhinitis and mildpersistent asthma. She has experienced ongoing symptoms related to rhinitis, including nasal congestion and irritation, which she reports managing with nasal sprays. She noted a reduction in viral infections since beginning nasal aerosol treatments. She is concerned about asthma symptoms, although these have not exacerbated. She discussed past interventions for PVC and WPW syndrome, noting that an ablation was performed for WPW, which is resolved, though PVC symptoms persist. She occasionally experiences exacerbations of PVC, which she attributes to environmental triggers, notably strong smells. The patient has also reported issues with hoarseness likely related to her history of inducible laryngeal obstruction and vasomotor rhinitis. There is a noted impact of environmental factors such as weather changes and strong odors on her symptoms and general health. She has a family history suggestive of potential sleep disorders. She also experiences allergic reactions such as dermatitis dueto adhesive contact. 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 flecainide; indication: symptomatic PSVT with WPW syndrome Other anxiety states Palpitations Paroxysmal supraventricular tachycardia (HCC) see "WPW Syndrome" Primary insomnia 06/11/2015 Sinus tachycardia 10/20/2023 Stress incontinence, female Unspecified asthma(493.90) WPW (Xzcsy-Sflemtbyr-Yfjho syndrome) associated with symptomatic SVT; attempt at catheter ablation 11/2016 failed; she continues to experience intermittent palpitations and tachycardia despite treatment with flecainide; successful RFCA 03/2018 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 (Wnupx-Ivbrxirxb-Zezrn Syndrome) Gastro-Esophageal Reflux Disease Without Esophagitis Chronic Sinusitis, Unspecified Benign Neoplasm of Unspecified Ovary Asymptomatic Menopausal State Anxiety Disorder, Unspecified Acquired Absence of Both Cervix and Uterus Paroxysmal Supraventricular Tachycardia (Hcc) Palpitations Status Post Ablation of Accessory Bypass Tract Dyspareunia Chronic Mixed Headache Syndrome Chronic Migraine Without Aura, With Intractable Migraine, So Stated, With Status Migrainosus Intractable Chronic Migraine Without Aura and Without Status Migrainosus Chronic Daily Headache Musculoskeletal Pain Cervicalgia Chronic Tension-Type Headache, Intractable Reflux Esophagitis Intractable Chronic Migraine Without Aura and With Status Migrainosus Internal Hemorrhoids Migraine Without Aura and Without Status Migrainosus, Not Intractable Bilateral Occipital Neuralgia History of Fusion of Cervical Spine Irritable Bowel Syndrome With Diarrhea Sinus Tachycardia Chronic Migraine Without Aura, Intractable, Without Status Migrainosus Mild Persistent Asthma Without Complication Allergic Conjunctivitis, Bilateral Chronic Rhinitis Pvc (Premature Ventricular Contraction) Vasomotor Rhinitis 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Ilo) Allergic Contact Dermatitis Due to Adhesives Hoarseness of Voice Essential Tremor Tear of Left Acetabular Labrum Pain of Left Hip Tendinopathy of Left Gluteal Region PAST SURGICAL HISTORY Procedure Laterality Date BLADDER SURGERY HX 11/2015 bladder sling BREAST AUGMENTATION WITH IMPLANT 11/2007 Breast augmentation CARDIAC MONITORING CONTINUOUS 05/25/2018 96 hours monitoring: sinus rhythm, sinus tachycardia; patient event activations and/or reported symptoms correlated with sinus rhythm and sinus tachycardia DELIVERY ONLY 85, 88,92 , low cervical X3 COLONOSCOPY 06/2021 EGD 2019 F LIGATION OF HEMORRHOID(S) 10/07/2020 IUD INSERTION ([employer])_*FL 08/30/2007 Mirena - removed LAPAROSCOPY SURG CHOLECYSTECTOMY 11/16/2017 [facility] OOPHORECTOMY, PART/TOTAL UNILAT/BILAT 2016 PAST SURGICAL HISTORY OF 09/2021 C4-C6 disc replacement S PK LAVH [id number] 2013 lavh RICKY biltareal salpingectomy SVT ABLATION W/ EP COMPLETE 11/24/2016 [facility], Dr. Mcknight; right midseptal AP unable to be ablated despite cryoablation and RF ablation attempts; AP described as not having capability for extremely rapid antegrade conduction SVT ABLATION W/ EP COMPLETE 03/28/2018 left posteroseptal AP just within the proximal CS; Stereotaxis RF with Carto guidance, successful elimination of AP conduction; no SVT inducible pre- or post-ablation; [facility] Dr. Luong TONSILLECTOMY & ADENOIDECTOMY <AGE 13 1969 VAGINAL HYSTERECTOMY Social History Tobacco Use Smoking status: Never Smokeless tobacco: Never Vaping Use Vaping status: Never Used Substance Use Topics Alcohol use: Yes Comment: occasionally Drug use: No CURRENT OUTPATIENT MEDICATIONS: Current Outpatient Medications Medication Sig Dispense Refill primidone (MYSOLINE) 50 mg tablet Take 50 mg by mouth four times daily. Taking 1/4 to 1/2 tab currently traMADol (ULTRAM) 50 mg tablet Take 1 tablet by mouth every 12 hours for 30 days. 60 tablet 0 traZODone (DESYREL) 50 mg tablet TAKE 1 AND 1/2 TABLETS BY MOUTH EVERY NIGHT AT BEDTIME 135 tablet 3 metoprolol succinate ER (TOPROL XL) 25 mg 24 hr tablet Take 1 tablet by mouth every afternoon. 90 tablet 3 Ipratropium [place] (ATROVENT) 21 mcg (0.03 %) nasal spray INHALE 2 SPRAYS IN EACH NOSTRIL 3 TIMES A DAY 90 mL 3 IMVEXXY MAINTENANCE PACK 10 mcg inst INSERT 1 TABLET VAGINALLY 2 TIMES A WEEK levalbuterol (XOPENEX) 1.25 mg/3 mL nebulizer solution Inhale 1 ampule via nebulizer 4x daily as needed. azelastine 0.1% nasal spray Use 2 Sprays in each nostril two times a day. 90 mL 3 Nebulizer and Compressor For Neb (PORTABLE NEBULIZER SYSTEM) 1 Each every 4 hours as needed. 1 Each3 gabapentin (NEURONTIN) 100 mg capsule Take 2 capsules by mouth daily at bedtime. (Patient taking differently: Take 100 mg by mouth daily at bedtime.) 180 capsule 3 ipratropium bromide (ATROVENT) 42 mcg (0.06 %) nasal spray Use 2 Sprays in the nose three times a day. 45 mL 3 rimegepant (NURTEC ODT) 75 mg disintegrating tablet dissolve 1 tablet orally AT ONSET OF MIGRAINE and may repeat ONCE PER 24 HOURS IF NEEDED [address] (PROTONIX) 40 mg tablet Take 1 tablet by mouth two times a day. 180 tablet 3 levalbuterol tartrate HFA 45 mcg/actuation inhaler Inhale 1-2 Puffs as instructed every 4 hours as needed for wheezing/shortness of breath. 45 g 3 fexofenadine (LAURA ALLERGY) 180 mg tablet Take 1 tablet by mouth once daily. 90 tablet 3 tiZANidine (ZANAFLEX) 4 mg tablet Take 1 tablet by mouth every 8 hours as needed. prn 30 tablet 11 cephALEXin (KEFLEX) 250 mg capsule Take 250 mg by mouth once daily as needed (after intercourse). montelukast (SINGULAIR) 10 mg tablet ondansetron (ZOFRAN) 4 mg tablet take 1 tablet by mouth every 8 hours if needed for nausea and vomiting 30 tablet 1 ARNUITY ELLIPTA 200 mcg/actuation inhaler inhale 1 puff by mouth daily dicyclomine (BENTYL) 10 mg capsule Take 1 capsule by mouth three times daily. 90 capsule 2 phenazopyridine (PYRIDIUM, GERIDIUM) 200 mg tablet Take 200 mg by mouth three times a day as neededfor pain. prn estradiol (NOBLE, VIVELLE-DOT) 0.025 mg/24 hr 1 Patch every Tuesday and Tuesday. REFRESH OPTIVE ADVANCED 0.5-1-0.5 % drop INSTILL 1 DROP IN EACH EYE 4 TIMES A DAY NEEDED (Patient not taking: Reported on 10/30/2024) magnesium oxide (MAG-OX) 400 mg (241.3 mg magnesium) tablet Take 1 tablet by mouth once daily. (Patient not taking: Reported on 10/30/2024) 90 tablet 3 kevkrpsfkmtlh-ggn-ojdy26-PF (REFRESH OPTIVE ADVANCED, PF,) 0.5-1-0.5 % dpet Use 1 Drop in eyes fourtimes a day as needed. (Patient not taking: Reported on 10/30/2024) 60 Each 5 No current facility-administered medications for this visit. ALLERGIES: ALLERGIES Allergen Reactions 2-Octyl Cyanoacryla* Rash Blistering contact reaction Citalopram Other: See Comments Did not tolerate, ? Mental status changes Liquid Bandage [Enb* Rash blisters and rash Propranolol Mental Status Change Tetracycline GI Upset Abdominal pain/cramping REVIEW OF SYSTEMS: - Respiratory: Reports hoarseness, nasal congestion, and asthma exacerbations with environmental changes. - General: Reports fatigue and daytime somnolence. - Neurological: Denies cataplexy but mentions disrupted sleep patterns. - Cardiovascular: Denies chest pain but reports sporadic PVCs. HEENT: no epistaxis, no drainage CONSTITUTIONAL: No acute distress. No weight loss or gain, no fevers or chills GASTROINTESTINAL: Negative for abdominal discomfort, No blood in stools or black stools MUSCULOSKELETAL: negative for joint pain or swelling, back pain or muscle pain. NEUROLOGIC:Negative for focal numbness or weakness, headaches and dizziness or syncope. DERM/SKIN: no new rashes, hives, or skin eruptions. PSYCHIATRIC: Negative for sleep disturbance, mood disorder and recent psychosocial stressors HEMATOLOGIC/LYMPHATIC/IMMUNOLOGIC:Negative for cold or heat intolerance, polyuria, polydipsia and goiter. PHYSICAL EXAM: BP 130/89 Pulse 78 Temp (Src) 97.4 (Temporal Artery) Resp 16 Ht 5' 2" (1.58m) Wt 148 lb (67.1kg) SpO2 97% LMP 05/06/2014 BMI 27.06 kg/(m^2). General appearance: Well appearing, alert, in no acute distress, well-hydrated, well nourished. HENT: External ears normal, canals clear, TM's normal Eyes: no scleral icterus, PERRLA, EOMS, no conjunctivitis Nose/Sinuses: Nares normal. Septum midline. Mucosa normal. No drainage or sinus tenderness. Oropharynx: Lips, mucosa, and tongue normal, teeth and gums normal, oropharynx normal Respiratory: Lungs clear to auscultation. No wheezing, rhonchi, rales Cardiovascular: RRR without murmur, gallop, or rubs. No ectopy Gastroenterology: normal appearing abdomen on inspection Musculoskeletal: No joint pain, muscle weakness, or impaired gait Integumentary: Negative for lesions, rash, and itching. Psychiatric: Alert and oriented x 3. No mood disorders noted, calm affect. DATA: Diagnostic tests reviewed for today's visit were personally reviewed by me: Most recent labs and imaging results. SPIROMETRY - BASELINE AND POST DILATOR ([id number]) - ordered on 06/10/23 No textual results for order. 11/20/2023 05/06/2024 10/23/2024 ASTHMA CONTROL TEST (2007 - ) Keep from getting things done 5 None of the time 5 None of the time 5 None of the time Shortness of breath 1 More than once a day 4 Once or twice a week 2 Once a day Symptoms wake up at night or early in morning 2 2 or 3 nights a week 2 2 or 3 nights a week 4 Once or twice How often have you used inhaler/nebulizer 5 Not at all 3 2 or 3 times per week 2 1 or 2 times per day Rate your asthma control over past 4 weeks 3 Somewhat controlled 4 Well controlled 4 Well controlled Asthma Control Test Score 16 18 17 No question data found. Glucose (mg/dL) Date Value 07/26/2024 96 04/02/2018 116 Potassium Date Value 07/26/2024 4.3 mmol/L 04/02/2018 4.2 mEq/L Sodium Date Value 07/26/2024 140 mmol/L 04/02/2018 142 mEq/L Chloride Date Value 07/26/2024 104 mmol/L 04/02/2018 107 mEq/L CO2 Date Value 07/26/2024 27 mmol/L 04/02/2018 28 mEq/L Creatinine (mg/dL) Date Value 07/26/2024 0.99 04/02/2018 0.92 BUN (mg/dL) Date Value 07/26/2024 14 04/02/2018 11 Anion Gap Date Value 07/26/2024 9 mmol/L 04/02/2018 11 Calcium (mg/dL) Date Value 04/02/2018 8.9 Calcium, Total (mg/dL) Date Value 07/26/2024 9.5 Protein, Total (g/dL) Date Value 07/26/2024 6.7 11/09/2017 7.5 Albumin (g/dL) Date Value 07/26/2024 4.5 11/09/2017 4.8 Bilirubin, Total (mg/dL) Date Value 07/26/2024 0.2 11/09/2017 0.2 Alkaline Phosphatase (U/L) Date Value 07/26/2024 61 11/09/2017 57 AST (U/L) Date Value 07/26/2024 22 11/09/2017 20 ALT (U/L) Date Value 07/26/2024 36 11/09/2017 16 WBC Date Value Ref Range Status 07/26/2024 9.46 3.70 - 11.00 k/uL Final RBC Date Value Ref Range Status 07/26/2024 4.31 3.90 - 5.20 m/uL Final Hemoglobin Date Value Ref Range Status 07/26/2024 12.5 11.5 - 15.5 g/dL Final Hematocrit Date Value Ref Range Status 07/26/2024 39.7 36.0 - 46.0 % Final MCV Date Value Ref Range Status 07/26/2024 92.1 80.0 - 100.0 fL Final MCH Date Value Ref Range Status 07/26/2024 29.0 26.0 - 34.0 pg Final MCHC Date Value Ref Range Status 07/26/2024 31.5 30.5 - 36.0 g/dL Final RDW-CV Date Value Ref Range Status 07/26/2024 13.0 11.5 - 15.0 % Final Platelet Count Date Value Ref Range Status 07/26/2024 371 150 - 400 k/uL Final MPV Date Value Ref Range Status 07/26/2024 10.2 9.0 - 12.7 fL Final Abs Neut Date Value Ref Range Status 11/23/2023 5.78 1.45 - 7.50 k/uL Final Lymphocytes % Date Value Ref Range Status 11/23/2023 27.8 % Final Abs Lymph Date Value Ref Range Status 11/23/2023 2.52 1.00 - 4.00 k/uL Final Monocytes % Date Value Ref Range Status 11/23/2023 7.3 % Final Abs [place] Date Value Ref Range Status 11/23/2023 0.66 <0.87 k/uL Final Abs Eosin Date Value Ref Range Status 11/23/2023 0.03 <0.46 k/uL Final Basophils % Date Value Ref Range Status 11/23/2023 0.3 % Final Abs Baso Date Value Ref Range Status 11/23/2023 0.03 <0.11 k/uL Final IgE Date Value Ref Range Status 11/23/2023 4.2 <114.0 kU/l Final IgG Date Value Ref Range Status 11/23/2023 876 700 - 1,600 mg/dL Final No follow-ups on file. ASSESSMENT/PLAN: PLAN: 1. Chronic rhinitis (J31.0): Continue with prescribed nasal sprays which have shown effectiveness in reducing symptoms and viralepisodes. Reassess need for adjustments based on symptom control. 2. Mild persistent asthma without complication (J45.30): Maintain current asthma management including medications like Singular. Consider further evaluationif symptoms worsen or at follow-up appointments. 3. PVC (premature ventricular contraction) (I49.3): Monitor symptoms and avoidance of known triggers such as strong odors. Discussed the potential for targeting heart rhythm issues through sleep assessment. 4. Chronic sinusitis, unspecified location (J32.9) 5. WPW (Bwdkl-Ahaztdqnh-Plorw syndrome) (I45.6): Status post-ablation with resolved WPW, currently focusing on managing any residual PVCs. 6. Vasomotor rhinitis (J30.0): Advisement on environmental control with continued use of ipratropium nasal spray; review with ENT if symptoms persist. 7. Inducible laryngeal obstruction (ILO) (J38.7): Monitor for changes in symptoms; consider voice therapy if hoarseness impacts daily function. 8. Allergic contact dermatitis due to adhesives (L23.1): Avoid known allergens and adhere to skin protection guidelines to prevent outbreaks. 9. Hoarseness of voice (R49.0) 10. Allergic conjunctivitis, bilateral (H10.13) 11. Daytime somnolence (R40.0): Recommend a sleep study to investigate sleep disruptions influencing fatigue and potential impact on cardiac rhythms. (J31.0) Chronic rhinitis (primary encounter diagnosis) (J45.30) Mild persistent asthma without complication (I49.3) PVC (premature ventricular contraction) (J32.9) Chronic sinusitis, unspecified location (I45.6) WPW (Qchjq-Pikgcmvza-Rlnve syndrome) (J30.0) Vasomotor rhinitis (J38.7) Inducible laryngeal obstruction (ILO) (L23.1) Allergic contact dermatitis due to adhesives (R49.0) Hoarseness of voice (H10.13) Allergic conjunctivitis, bilateral PATIENT INSTRUCTIONS - Continue using nasal sprays as directed to manage rhinitis and prevent infections. - Maintain asthma medication regimen and monitor any new symptoms. - Avoid exposure to known triggers that affect PVCs and rhinitis symptoms. - Consider environmental controls to minimize exposure to strong odors and allergens. - Follow up on sleep study referral to address sleep disturbances and daytime somnolence. - Contact clinic with any significant changes in symptoms or new concerns. - Re-evaluate if symptoms related to hoarseness or PVCs worsen. I spent a total of 41 minutes on the date of the service which included preparing to see the patient, [id number] patient care, completing clinical documentation, performing a medically appropriate examination, counseling and educating the patient/family/caregiver, and ordering medications, tests,or procedures. Deven Logan MD documented in this encounterC[facility] NotePatient Outreach (FAMPBR) MARCIAL YEUNG ([id number]) 1965 F NFR Date Time Provider Department 10/30/24 JAMES HARRY FAMPBR During your visit today, we recorded the following information about you: Allergies As of Date: 10/30/2024 Noted Allergy Reaction 2-OCTYL CYANOACRYLATE 05/25/2021 2 - Rash Comments: Blistering contact reaction CITALOPRAM 09/07/2017 14 - Other: See Comments Comments: Did not tolerate, ? Mental status changes LIQUID BANDAGE (ENBUCRILATE) 12/27/2017 2 - Rash Comments: blisters and rash PROPRANOLOL 01/25/2007 1 - Mental Status Change TETRACYCLINE 09/08/2005 8 - GI Upset Comments: Abdominal pain/cramping Date Reviewed: 10/30/2024 Reviewed by: Deven Logan MD - Fully Assessed Visit Diagnosis:Encounter for screening mammogram for breast cancer [Z12.31] Order(s):[facility] [[id number]] Order #: [id number] FUTURE Prescriptions as of 11/30/2024 - traMADol (ULTRAM) 50 mg tablet Take 1 tablet by mouth every 12 hours for 30 days. - rimegepant (NURTEC ODT) 75 mg disintegrating tablet dissolve 1 tablet orally AT ONSET OF MIGRAINE and may repeat ONCE PER 24 HOURS IF NEEDED - fexofenadine (LAURA ALLERGY) 180 mg tablet Take 1 tablet by mouth once daily. - ARNUITY ELLIPTA 200 mcg/actuation inhaler Inhale 1 Puff as instructed once daily. - ipratropium bromide (ATROVENT) 42 mcg (0.06 %) nasal spray Use 2 Sprays in the nose three times a day as needed. - Ipratropium [place] (ATROVENT) 21 mcg (0.03 %) nasal spray Use 2 Sprays in the nose three times a day. - montelukast (SINGULAIR) 10 mg tablet Take 1 tablet by mouth daily at bedtime. - azelastine 0.1% nasal spray Use 2 Sprays in each nostril two times a day. - primidone (MYSOLINE) 50 mg tablet Take 50 mg by mouth four times daily. Taking 1/4 to 1/2 tab currently - traZODone (DESYREL) 50 mg tablet TAKE 1 AND 1/2 TABLETS BY MOUTH EVERY NIGHT AT BEDTIME - metoprolol succinate ER (TOPROL XL) 25 mg 24 hr tablet Take 1 tablet by mouth every afternoon. - IMVEXXY MAINTENANCE PACK 10 mcg inst INSERT 1 TABLET VAGINALLY 2 TIMES A WEEK - levalbuterol (XOPENEX) 1.25 mg/3 mL nebulizer solution Inhale 1 ampule via nebulizer 4x daily as needed. - Nebulizer and Compressor For Neb (PORTABLE NEBULIZER SYSTEM) 1 Each every 4 hours as needed. - gabapentin (NEURONTIN) 100 mg capsule Take 2 capsules by mouth daily at bedtime. - pantoprazole DR (PROTONIX) 40 mg tablet Take 1 tablet by mouth two times a day. - levalbuterol tartrate HFA 45 mcg/actuation inhaler Inhale 1-2 Puffs as instructed every 4 hours as needed for wheezing/shortness of breath. - tiZANidine (ZANAFLEX) 4 mg tablet Take 1 tablet by mouth every 8 hours as needed. prn - cephALEXin (KEFLEX) 250 mg capsule Take 250 mg by mouth once daily as needed (after intercourse). - ondansetron (ZOFRAN) 4 mg tablet take 1 tablet by mouth every 8 hours if needed for nausea and vomiting - dicyclomine (BENTYL) 10 mg capsule Take 1 capsule by mouth three times daily. - phenazopyridine (PYRIDIUM, GERIDIUM) 200 mg tablet Take 200 mg by mouth three times a day as needed for pain. prn - estradiol (NOBLE, VIVELLE-DOT) 0.025 mg/24 hr 1 Patch every Tuesday and Tuesday. 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] 02/18/2014 03/23/2018 Chest discomfort [R07.89] 02/18/2014 11/13/2015 Abnormal uterine bleeding [N93.9] 04/17/2014 09/02/2014 Anxiety [F41.9] 05/21/2014 Primary insomnia [F51.01] 06/11/2015 11/29/2023 Stress incontinence in female [N39.3] 11/13/2015 Encounter for screening colonoscopy [Z12.11] 08/10/2016 Complex cyst of right ovary [N83.291] 12/10/2016 Biliary dyskinesia [K82.8] 11/01/2017 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] Gastro-esophageal reflux disease without esopha*07/08/2017 Chronic sinusitis, unspecified [J32.9] 06/30/2017 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] 07/08/2017 Asymptomatic menopausal state [Z78.0] 07/08/2017 Anxiety disorder, unspecified [F41.9] 07/08/2017 Acquired absence of both cervix and uterus [Z90*07/08/2017 Paroxysmal supraventricular tachycardia (HCC) [* Palpitations [R00.2] 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 [Z* 11/22/2018 Status post ablation of accessory bypass tract *03/29/2018 Dyspareunia [NNS6877] 11/22/2018 Chronic mixed headache syndrome [G44.89] 12/05/2018 Chr (more content not included)...[facility]01-21-2025 History of Present illness Narrative* Sharron Hollis, NEVIN.ASBESTOS MICROSCOPIST - 10/23/2024 3:30 PM EST Headache Center Follow-up Visit Miscellaneous Patient Concerns: Headaches may be stabbing R frontal that is intermittent. She was started on Primidone but finds that this can give her a headache. Impression: Chronic migraine without aura, intractable, without status migrainosus (primary encounter diagnosis) Follow-Up Onabotulinum Toxin A (BotoxTM) for Migraine Indication: Chronic Intractable Migraine Referral Expiration: 09/11/2025 Prior to the initiation of the FIRST treatment with Onabotulinum Toxin A, the patient reported the following average headache frequency over the past 3 MONTHS: Number of moderate-severe migraine days/month: 25 Number of mild migraine days/month: 0 Number of headache free days/month: 5 (120 headache-free hours) After treatment with Onabotulinum Toxin A: Number of moderate-severe migraine days/month: 0 Number of mild migraine days/month: 10 Number of headache free days/month: 20 (480 headache-free hours) Patient reduction in overall migraine days: Yes Patient reduction in moderate-severe migraine days: Yes Patient reduction of headache hours by 100 hours or more: Yes (reduction of 360 hours) Individual has obtained clinical benefit deemed significant by individual or prescriber (Y/N): Yes Patient's quality of life and ability to perform ADLs has improved (Y/N): Yes Side effects: none The patient has been assessed for disorders which could contribute to breathing or swallowing difficulty, and there is no contraindication with PREEMPT Botox. There is no documented allergic reaction/hypersensitivity to any botulinum toxin and there is no active infection at proposed injection site. HEADACHE SCORES: 04/17/2024 07/17/2024 10/17/2024 Headache Questions ER visits since last office visit: 0 0 0 Hospital stays since last office visit 0 0 0 Limited ADLs in the last month: 0 1 0 Days missed from work or school in the last month: 0 0 0 Days headache pain free in the last month: 25 25 20 Days per month with ALL of the following symptoms - decreased productivity, light sensitivity and nausea: 0 1 0 Initial improvement of headache after botox injection at last visit: Much improved Much improved Much improved PRN medication usage in the last month: 6 5 Patient impression of improvement since last visit: No change No change No change 04/17/2024 07/17/2024 10/17/2024 HIT-6 HIT-6 40 (Little or no impact) 46 (Little or no impact) 40 (Little or no impact) 04/17/2024 07/17/2024 10/17/2024 KEYONNA - 2/7 SCORES KEYONNA-2 Score 0 0 0 04/17/2024 07/17/2024 10/17/2024 Migraine Specific QOL - Higher scores indicate better HRQL Role Function-Restrictive Transformed Score (range: 0-100) 100 97.14 97.14 Role Function-Preventive Transformed Score (range: 0-100) 100 100 100 Emotional Function Transformed Score (range: 0-100) 100 100 100 10/17/2024 07/26/2024 07/17/2024 PHQ-9 Score 2 2 2 BP 122/83 Pulse 79 Ht 157.5 cm (5' 2") Wt 67.5 kg (148 lb 13 oz) LMP 05/06/2014 SpO2 98% BMI 27.22 kg/m Patient name: Marcial Yeung : 1965 ALLERGIES Allergen Reactions 2-Octyl Cyanoacryla* Rash Blistering contact reaction Citalopram Other: See Comments Did not tolerate, ? Mental status changes Liquid Bandage [Enb* Rash blisters and rash Propranolol Mental Status Change Tetracycline GI Upset Abdominal pain/cramping UNIVERSAL PROTOCOL / SAFETY CHECKLIST Procedure: Onabotulinum toxin A for migraine Informed Consent Consent Obtained: Written [place] Protocol A moment to CARE was completed SIGN IN Personnel directly involved with the procedure wore the appropriate PPE Special Equipment: N/A Patient/Surrogate Stated/Verified: Patient name, Date of , Relevant allergies and Intended procedure TIME OUT Intended patient and procedure match the source document(s) Consent documented and matches the intended procedure No relevant labs, photos, and/or imaging studies were applicable for review. No correct side/site applicable for marking and visibility. No medications required for procedure. No fire risk assessment and interventions applicable. No implant(s) inserted. SIGN OUT No specimen collected. No instruments, equipment or retained foreign bodies applicable. Post-procedure follow-up management communicated and Plan of Care Visit completed when applicable Written Consent Obtained: Written LOT #: [id number] Expiration Date: Month: 4 Year: 2026 Second vial: LOT #: [id number] Expiration Date: Month: 4 Year: 2026 Injection Sites Left (Units) Left (Sites) Right (Units) Right (Sites) TOTAL (Units) Pesticide Chemist 5 1 5 1 10 Procerus Units: 5 Sites: 1 5 Frontalis 10 2 10 2 20 Temporalis optional follow the pain 20 5 4 1 20 5 4 1 50 Occipitalis optional follow the pain 15 10 3 2 15 10 3 2 50 Cervical PSP 10 2 10 2 20 Trapezius optional follow the pain 15 7.5 3 2 15 7.5 3 2 45 Total Units used: 200 Total Units wasted: 0 Patient tolerated procedure well. Prior Therapies Duration of Use Dose Side effect Analgesic Hydrocodone/Acetaminophen ([place]odin, [place]) Hydromorphone (Dilaudid) Meloxicam (Mobic) Meperidine (Demerol) Oxycodone Oxycodone/Acetaminophen (Percocet) Tramadol (Ultram) Anti-Anxiety Lorazepam (Ativan) Anti-Convulsant Gabapentin (Neurontin) Topiramate (Topamax, Trokendi XL, Qudexy) Anti-Depressant and Antipsychotic Amitriptyline (Elavil) Bupropion (Wellbutrin) Citalopram (Celexa) Fluoxetine (Prozac) Venlafaxine (Effexor) Antiemetics Metoclopramide Ondansetron Prochlorperazine Promethazine Anti-Migraine Rizatriptan (Maxalt) Sumatriptan (Imitrex, Sumavel) Blood Pressure Metoprolol (Lopressor,Toprol XL) Propranolol (Inderal) GEPANTS Ubrogepant (Ubrelvy) Rimegepant (Nurtec) Botulinum Toxin Onabotulinum Toxin A (Botox) Muscle Relaxer Cyclobenzaprine (Flexeril) Sleep Aids Trazodone (Desyrel) Zolpidem (Ambien) Supplements Magnesium Other Medications Dexamethasone (Decadron) Prednisone Over the Counter Medications Acetaminophen (Tylenol) Acetaminophen/Aspirin/Caffeine (Excedrin, Goody s) Aspirin Ibuprofen (Advil, Motrin) Naproxen sodium (Aleve) Sharron Hollis APRN.ASBESTOS MICROSCOPIST documented in this encounterC[facility]25 NoteHNO ID: [id number] Author: SHARRON HOLLIS APRN.ASBESTOS MICROSCOPIST Service: ? Author Type: Nurse Practitioner Type: Progress Notes Filed: 10/23/2024 15:42 Note Text: Headache Center Follow-up Visit Miscellaneous Patient Concerns: Headaches may be stabbing R frontal that is intermittent. She was started on Primidone but finds that this can give her a headache. Impression: Chronic migraine without aura, intractable, without status migrainosus (primary encounter diagnosis) Follow-Up Onabotulinum Toxin A (BotoxTM) for Migraine Indication: Chronic Intractable Migraine Referral Expiration: 09/11/2025 Prior to the initiation of the FIRST treatment with Onabotulinum Toxin A, the patient reported the following average headache frequency over the past 3 MONTHS: Number of moderate-severe migraine days/month: 25 Number of mild migraine days/month: 0 Number of headache free days/month: 5 (120 headache-free hours) After treatment with Onabotulinum Toxin A: Number of moderate-severe migraine days/month: 0 Number of mild migraine days/month: 10 Number of headache free days/month: 20 (480 headache-free hours) Patient reduction in overall migraine days: Yes Patient reduction in moderate-severe migraine days: Yes Patient reduction of headache hours by 100 hours or more: Yes (reduction of 360 hours) Individual has obtained clinical benefit deemed significant by individual or prescriber (Y/N): Yes Patient's quality of life and ability to perform ADLs has improved (Y/N): Yes Side effects: none The patient has been assessed for disorders which could contribute to breathing or swallowing difficulty, and there is no contraindication with PREEMPT Botox. There is no documented allergic reaction/hypersensitivity to any botulinum toxin and there is no active infection at proposed injection site. HEADACHE SCORES: 04/17/2024 07/17/2024 10/17/2024 Headache Questions ER visits since last office visit: 0 0 0 Hospital stays since last office visit 0 0 0 Limited ADLs in the last month: 0 1 0 Days missed from work or school in the last month: 0 0 0 Days headache pain free in the last month: 25 25 20 Days per month with ALL of the following symptoms - decreased productivity, light sensitivity and nausea: 0 1 0 Initial improvement of headache after botox injection at last visit: Much improved Much improved Much improved PRN medication usage in the last month: 6 5 Patient impression of improvement since last visit: No change No change No change 04/17/2024 07/17/2024 10/17/2024 HIT-6 HIT-6 40 (Little or no impact) 46 (Little or no impact) 40 (Little or no impact) 04/17/2024 07/17/2024 10/17/2024 KEYONNA - 2/7 SCORES KEYONNA-2 Score 0 0 0 04/17/2024 07/17/2024 10/17/2024 Migraine Specific QOL - Higher scores indicate better HRQL Role Function-Restrictive Transformed Score (range: 0-100) 100 97.14 97.14 Role Function-Preventive Transformed Score (range: 0-100) 100 100 100 Emotional Function Transformed Score (range: 0-100) 100 100 100 10/17/2024 07/26/2024 07/17/2024 PHQ-9 Score 2 2 2 BP 122/83 Pulse 79 Ht 157.5 cm (5' 2") Wt 67.5 kg (148 lb 13 oz) LMP 05/06/2014 SpO2 98% BMI 27.22 kg/m? Patient name: Marcial Yeung : 1965 ALLERGIES Allergen Reactions 2-Octyl Cyanoacryla* Rash Blistering contact reaction Citalopram Other: See Comments Did not tolerate, ? Mental status changes Liquid Bandage [Enb* Rash blisters and rash Propranolol Mental Status Change Tetracycline GI Upset Abdominal pain/cramping UNIVERSAL PROTOCOL / SAFETY CHECKLIST Procedure: Onabotulinum toxin A for migraine Informed Consent Consent Obtained: Written [place] Protocol A moment to CARE was completed SIGN IN Personnel directly involved with the procedure wore the appropriate PPE Special Equipment: N/A Patient/Surrogate Stated/Verified: Patient name, Date of , Relevant allergies and Intended procedure TIME OUT Intended patient and procedure match the source document(s) Consent documented and matches the intended procedure No relevant labs, photos, and/or imaging studies were applicable for review. No correct side/site applicable for marking and visibility. No medications required for procedure. No fire risk assessment and interventions applicable. No implant(s) inserted. SIGN OUT No specimen collected. No instruments, equipment or retained foreign bodies applicable. Post-procedure follow-up management communicated and Plan of Care Visit completed when applicable Written Consent Obtained: Written LOT #: [id number] Expiration Date: Month: 4 Year: 2026 Second vial: LOT #: [id number] Expiration Date: Month: 4 Year: 2026 Injection Sites Left (Units) Left (Sites) Right (Units) Right (Sites) TOTAL (Units) Pesticide Chemist 5 1 5 1 10 Procerus Units: 5 Sites: 1 5 Frontalis 10 2 10 2 20 Temporalis optional follow the pain 20 5 4 1 20 5 4 1 50 Occipitalis opt (more content not included)...[facility]01-21-2025 Instructions* Patient Instructions* Sharron Hollis, NEVIN.ASBESTOS MICROSCOPIST - 10/23/2024 3:06 PM EST AFTER VISIT CARE BOTOX INJECTION While these procedures can be extremely helpful as part of your headache treatment plan, they can irritate the muscles and tissues in your head, neck and shoulders. Proper follow-up care is important to avoid muscle spasms and temporary pain increase within the following 3-5 days after your clinic visit. Here are some tips to help decrease side-effects that may occur and maximize the effectiveness of your pain relief -HYDRATION Hydration is important to help nourish your muscles and tissues. Drink 60-80 oz of non caffeinated fluid at least for 3 days after your visit. -REST Rest will help avoid further irritation of muscle and tissues. Remember that you need to give your body time to adjust. NO strenuous activity for at least the first 24 hours after your visit. Gentle stretching, yoga, meditation or even swimming is OK and encouraged. -ICE/HEAT Since these procedures irritate muscles, there can be some swelling. Alternating ice and heat every3-5 times per day may help decrease this, while also optimizing pain relief Use cool gel packs for ice for 10 min. Use a warm moist towel covered with a dry towel on neck and shoulders. Alternate stretching each side of the neck. -STRETCHING Slow, gentle stretching of the neck and shoulders once every hour is helpful to avoid muscle spasms. -TREAT MUSCLE SPASMS If you are already prescribed a muscle relaxer such as baclofen, tizanidine or flexeril, use as directed. If you do not have one, talk to your provider to find out if this would be safe for you to use. Do not rub or massage the area for 48-72 hours. -OTHER No hair dyes or permanents for 24 hours. If you are paying out of pocket for Botox go online to Botox Savings Program and see if you qualifyfor reimbursement. Return in 3 months for your next Botox Injection [facility] Tele[facility] encounter Note * Telephone Encounter - James Harry DO - 10/22/2024 5:51 PM EST The following approved medication requests have been transmitted electronically. Requested Prescriptions Pending Prescriptions Disp Refills traMADol (ULTRAM) 50 mg tablet 60 tablet 0 Sig: Take 1 tablet by mouth every 12 hours for 30 days. James Harry DO [facility]01-20-2025 Miscellaneous Notes* Telephone Encounter - James Harry DO - 10/22/2024 5:51 PM EST The following approved medication requests have been transmitted electronically. Requested Prescriptions Pending Prescriptions Disp Refills traMADol (ULTRAM) 50 mg tablet 60 tablet 0 Sig: Take 1 tablet by mouth every 12 hours for 30 days. James Harry DO * Telephone Encounter - Brenda Coulter MA - 10/22/2024 3:37 PM EST Patient electronically sent a request for the following prescription(s) Requested Prescriptions Pending Prescriptions Disp Refills traMADol (ULTRAM) 50 mg tablet 60 tablet 0 Sig: Take 1 tablet by mouth every 12 hours for 30 days. Patient aware RX will be sent to pharmacy. No need to notify patient. Last Office Visit: 07/26/2024 with PCP Next Office Visit: 01/30/2025 with PCP Please review. Brenda Coulter MA documented [facility] Telephone encounter Note * Telephone Encounter - Brenda Coulter MA - 10/22/2024 3:37 PM EST Patient electronically sent a request for the following prescription(s) Requested Prescriptions Pending Prescriptions Disp Refills traMADol (ULTRAM) 50 mg tablet 60 tablet 0 Sig: Take 1 tablet by mouth every 12 hours for 30 days. Patient aware RX will be sent to pharmacy. No need to notify patient. Last Office Visit: 07/26/2024 with PCP Next Office Visit: 01/30/2025 with PCP Please review. Brenda Coulter MA [facility]12-19-[facility] Telephone encounter Note* Telephone Encounter - James Harry DO - 09/20/2024 10:31 AM EST The following approved medication requests have been transmitted electronically. Requested Prescriptions Pending Prescriptions Disp Refills traMADol (ULTRAM) 50 mg tablet 60 tablet 0 Sig: Take 1 tablet by mouth every 12 hours for 30 days. James Harry DO [facility] Miscellaneous Notes* Telephone Encounter - James Harry DO - 09/20/2024 10:31 AM EST The following approved medication requests have been transmitted electronically. Requested Prescriptions Pending Prescriptions Disp Refills traMADol (ULTRAM) 50 mg tablet 60 tablet 0 Sig: Take 1 tablet by mouth every 12 hours for 30 days. James Harry DO * Telephone Encounter - Brenda Coulter MA - 09/20/2024 9:55 AM EST Patient electronically sent a request for the following prescription(s) Requested Prescriptions Pending Prescriptions Disp Refills traMADol (ULTRAM) 50 mg tablet 60 tablet 0 Sig: Take 1 tablet by mouth every 12 hours for 30 days. Patient aware RX will be sent to pharmacy. No need to notify patient. Last Office Visit: 07/26/2024 with PCP Next Office Visit: 01/30/2025 with Lucio Glasgow CNP Please review. Brenda Coulter MA documented [facility] Telephone encounter Note * Telephone Encounter - Brenda Coulter MA - 09/20/2024 9:55 AM EST Patient electronically sent a request for the following prescription(s) Requested Prescriptions Pending Prescriptions Disp Refills traMADol (ULTRAM) 50 mg tablet 60 tablet 0 Sig: Take 1 tablet by mouth every 12 hours for 30 days. Patient aware RX will be sent to pharmacy. No need to notify patient. Last Office Visit: 07/26/2024 with PCP Next Office Visit: 01/30/2025 with Lucio Glasgow CNP Please review. Brenda Coulter MA [facility] Telephone encounter Note* Telephone Encounter - James Harry DO - 08/22/2024 4:04 PM EST The following approved medication requests have been transmitted electronically. Requested Prescriptions Pending Prescriptions Disp Refills traMADol (ULTRAM) 50 mg tablet 60 tablet 0 Sig: Take 1 tablet by mouth every 12 hours for 30 days. James Harry DO [facility] Miscellaneous Notes* Telephone Encounter - James Harry DO - 08/22/2024 4:04 PM EST The following approved medication requests have been transmitted electronically. Requested Prescriptions Pending Prescriptions Disp Refills traMADol (ULTRAM) 50 mg tablet 60 tablet 0 Sig: Take 1 tablet by mouth every 12 hours for 30 days. James Harry DO * Telephone Encounter - Kassie Richards MA - 08/22/2024 3:51 PM EST Patient Comment: We are leaving for vacation on tue so if any chance you could call it in by would appreciate it. Patient phones requesting refills as follows: Requested Prescriptions Pending Prescriptions Disp Refills traMADol (ULTRAM) 50 mg tablet 60 tablet 0 Sig: Take 1 tablet by mouth every 12 hours for 30 days. Please review and advise. Kassie Richards MA documented in [facility] Telephone encounter Note * Telephone Encounter - Kassie Richards MA - 08/22/2024 3:51 PM EST Patient Comment: We are leaving for vacation on tue so if any chance you could call it in by tuesdayi would appreciate it. Patient phones requesting refills as follows: Requested Prescriptions Pending Prescriptions Disp Refills traMADol (ULTRAM) 50 mg tablet 60 tablet 0 Sig: Take 1 tablet by mouth every 12 hours for 30 days. Please review and advise. Kassie Richards MA [facility]11-[facility] History of Present illness Narrative* Codie Munguia, PT - 08/06/2024 1:24 PM EST Program_ID:[id number] Access Code: [email or web address] URL: [email or web address] Date: 08-06-2024 Prepared By: Codie Munguia Program Notes Exercises - Supine Bridge - 1 x daily - 6 x weekly - 3 sets - 8 reps - Bridge Marching with Eccentric Lowering - 1 x daily - 6 x weekly - 3 sets - 8 reps - Single Leg Bridge - 1 x daily - 6 x weekly - 3 sets - 8 reps - Sidelying Hip Abduction - 1 x daily - 6 x weekly - 3 sets - 8 reps - Sit to Stand - 1 x daily - 6 x weekly - 3 sets - 8 reps * Codie Munguia, PT - 08/06/2024 12:42 PM EST Episode Visit Count: 1 Therapist That Will Accept/Oversee The Plan Of Care: Codie Munguia Start of Care Date: 08/06/24 Onset Date: 02/01/24 Patient Identified by Name and Date of : Yes REHABILITATION AND SPORTS THERAPY PHYSICAL THERAPY EVALUATION PLAN OF CARE: Assessment: Marcial Yeung presents with diagnosis of bilateral hip OA with the presence of labral pathology that interferes with bending, physical activities, recreational activities, working, sleeping, Comments, sitting, stair negotiation vacumming and mopping. The patient presents with impairments in ADL's, overall function, strength, symptom management, and tissue tenderness. PROMIS (Patient-R eported Outcomes Measurement Information System) scores were reviewed and identified as within normal limits. Prognosis for therapy is Good due to: current objective clinical presentation, good overall health status, positive past response to therapy, within-session changes, good support system/ coping skills . Patient demonstrates significant weakness in the presence of hip OA. She will benefit from isolated gluteal strengthening to improve daily and work function. The patient will benefit from skilled therapy services to meet the goals established for this plan of care as noted below. Goals for Episode of Care: established 08/06/24 [place] in home exercise program. Patient will decrease pain rating by 2 points to meet minimal clinical important difference for numeric pain rating scale. Patient will demonstrate increase in LE strength to 5/5 during manual muscle testing in order to improve function for basic self-care tasks, prior functional tasks, and work tasks. Perform squatting and cleaning without pain. Reciprocal stair negotiation. Patient will increase balance to 15 seconds for single limb stance on RLE and 15 seconds for singlelimb stance on LLE. Patient Goals: To start a home program and follow up as needed Time Frame for Goals and Treatment : 10/07/24 Planned Interventions, Frequency, and Duration: Current Frequency: 1x/week Duration: 8 weeks Total Number of Visits Planned: 8 Planned Treatment Interventions: Therapeutic exercise (82193), Neuromuscular re- education (25692), Manual therapy (04190), Self-long-term management (73242), Gait Training (70014), Patient/Family/Caregiver Education PLAN FOR NEXT VISIT: FOcus on gluteal recruitment and strength progressions Patient demonstrates good understanding of plan of care and treatment. The above goals and plan of care were discussed and agreed upon by patient/family. SUBJECTIVE: patient reports history of bilateral hip pain. She had MRI which showed change sin bothhips. 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 She had injection in January for right hip and more recently left. She note a lot of improvement in stairs after injection. At night she notes more pain, however, has improved as well. She was recommended for therapy, but lives far away and wants to get a plan to complete herself. She notes pain is in front of hip wrapping around to buttock. 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 Recreation / Current Exercise: has been limited due to other health issues: yoga, golf, biking, kayaking Home Environment Patient Lives With: Spouse Home Type: Multi-Level Intake Information: Prescription present Previous Treatment: Self prescribed exercises, Pain meds , NSAIDs , Injections Pain: Pain Pain Level: 4 Pain Location: Hip - Left, Hip - Right Description: Dull, Aching, Sharp Frequency: Intermittent Post Treatment Pain Post Treatment Pain Level: No Change PROMIS Scales 08/05/2024 07/17/2024 02/17/2024 Higher is Better Phys Func - Score 47 (within normal limits) 45 (within normal limits) Phys Func - Percentile 38 31 Self-Eff Symptom - Score 50 (Average) Self-Eff Symptom - Percentile 50 T-scores: mean of general population = 50. 5 points is clinically meaningfully difference Percentiles provide an indication of how the patient's score ranks in relation to the general population. Higher percentile rankings indicate better function/quality of life. 50th percentile is the average of the general population and indicates half of respondents had a worse score. OBJECTIVE MEASURES WITH LEVEL OF FUNCTION: Hip Observations R Hip Palpation Tenderness: TFL (Tensor fasciae latae), Gluteals L Hip Palpation Tenderness: Gluteals, Iliacus, Psoas LE AROM R LE AROM: WFL L LE AROM: WFL R Hip Internal Rotation: (ERP) L Hip Internal Rotation: (ERP) LE Strength R Hip Extension: 3+/5 (hamstrings overuse noted) R Hip Flexion (L2): 4+/5 R Hip ABduction: 4-/5 R Hip Internal Rotation: 4+/5 R Hip External Rotation: 4+/5 L Hip Extension: 3+/5 (hamstrings overuse) L Hip Flexion (L2): 4+/5 L Hip ABduction: 4-/5 L Hip Internal Rotation: 4+/5 L Hip External Rotation: 4+/5 Functional Strength Functional Strength: squat: reduced depth, minimal posterior chain recruitment Gait Gait Observation: Normal Stairs: Reciprocal with pain Balance Static Standing Balance: Single Leg Stance Single Leg Stance: hip iR noted with less than 5" holds bilaterally Education: Education Learning Preferences: Explanation, Performance, Printed Materials, Demonstration Barriers: None Learning/educational needs: Home exercise program, Plan of Care Education Provided: Yes, see treatment interventions for education provided Education Provided To: Patient Education Mode/Type: Demonstration, Explanation/Discussion, Literature/Printed Materials, Performance Response to Education/Teach Back: States/Identifies, Return Demonstration TREATMENT: PT Treatment Interventions: Therapeutic Exercise Evaluation Therapeutic Exercise: 1: Bridge: x8 (mult cues for form) 2: Bridge progressions SL eccentric, SL 3: SL abduction: x8 (mutl cues for set up and form) 4: Sit to stand: x8 (cues for set up and form) Skilled Intervention: Patient was educated in proper exercise technique and purpose for exercises. Skilled judgment was used in selection of appropriate interventions. Provided written instruction for home exercise program to facilitate proper performance and compliance. Correct performance of therapeutic exercises was facilitated with verbal, visual, and tactile cuing. Billing * Evaluation Low Complexity: 1 Unit Therapeutic Exercise Treatment Minutes: 15 Skilled Treatment Time Minutes (timed and untimed codes): 40 Total Session Time (minutes): 40 Session Start Time : 1250 Session Stop Time : 1330 Codie Munguia PT documented in this [facility] NoteHNO ID: [id number] Author: CODIE MUNGUIA PT Service: ? Author Type: Physical Therapist Type: Progress Notes Filed: 08/07/2024 10:23 Note Text: Episode Visit Count: 1 Therapist That Will Accept/Oversee The Plan Of Care: Codie Munguia Start of Care Date: 08/06/24 Onset Date: 02/01/24 Patient Identified by Name and Date of : Yes REHABILITATION AND SPORTS THERAPY PHYSICAL THERAPY EVALUATION PLAN OF CARE: Assessment: Marcial Yeung presents with diagnosis of bilateral hip OA with the presence of labral pathology that interferes with bending, physical activities, recreational activities, working, sleeping, Comments, sitting, stair negotiation vacumming and mopping. The patient presents with impairments in ADL's, overall function, strength, symptom management, and tissue tenderness. PROMIS? (Patient-Reported Outcomes Measurement Information System) scores were reviewed and identified as within normal limits. Prognosis for therapy is Good due to: current objective clinical presentation, good overall health status, positive past response to therapy, within-session changes, good support system/ coping skills . Patient demonstrates significant weakness in the presence of hip OA. She will benefit from isolated gluteal strengthening to improve daily and work function. The patient will benefit from skilled therapy services to meet the goals established for this plan of care as noted below. Goals for Episode of Care: established 08/06/24 [place] in home exercise program. Patient will decrease pain rating by 2 points to meet minimal clinical important difference for numeric pain rating scale. Patient will demonstrate increase in LE strength to 5/5 during manual muscle testing in order to improve function for basic self-care tasks, prior functional tasks, and work tasks. Perform squatting and cleaning without pain. Reciprocal stair negotiation. Patient will increase balance to 15 seconds for single limb stance on RLE and 15 seconds for single limb stance on LLE. Patient Goals: To start a home program and follow up as needed Time Frame for Goals and Treatment : 10/07/24 Planned Interventions, Frequency, and Duration: Current Frequency: 1x/week Duration: 8 weeks Total Number of Visits Planned: 8 Planned Treatment Interventions: Therapeutic exercise (87399), Neuromuscular re-education (58957), Manual therapy (42453), Self-long-term management (82475), Gait Training (60875), Patient/Family/Caregiver Education PLAN FOR NEXT VISIT: FOcus on gluteal recruitment and strength progressions Patient demonstrates good understanding of plan of care and treatment. The above goals and plan of care were discussed and agreed upon by patient/family. SUBJECTIVE: patient reports history of bilateral hip pain. She had MRI which showed change sin both hips. 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 She had injection in January for right hip and more recently left. She note a lot of improvement in stairs after injection. At night she notes more pain, however, has improved as well. She was recommended for therapy, but lives far away and wants to get a plan to complete herself. She notes pain is in front of hip wrapping around to buttock. 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: [email or web address] business Recreation / Current Exercise: has been limited due to other health issues: yoga, golf, biking, kayaking Home Environment Patient Lives With: Spouse Home Type: Multi-Level Intake Information: Prescription present Previous Treatment: Self prescribed exercises, Pain meds , NSAIDs , Injections Pain: Pain Pain Level: 4 Pain Location: Hip - Left, Hip - Right Description: Dull, Aching, Sharp Frequency: Intermittent Post Treatment Pain Post Treatment Pain Level: No Change PROMIS Scales 08/05/2024 07/17/2024 02/17/2024 Higher is Better Phys Func - Score 47 (within normal limits) 45 (within normal limits) Phys Func - Percentile 38 31 Self-Eff Symptom - Score 50 (Average) Self-Eff Symptom - Percentile 50 T-scores: mean of general population = 50. 5 points is clinically meaningfully difference Percentiles provide an indication of how the patient's score ranks in relation to the general population. Higher percentile rankings indicate better function/quality of life. 50th percentile is the average of the general population and indicates half of respondents had a worse score. OBJECTIVE MEASURES WITH LEVE (more content not included)...[facility]10-[facility] Instructions* Patient Instructions* James Harry DO - 07/26/2024 1:32 PM EDT What is Anxiety? Anxiety is an unpleasant feeling of great fear and worry. Everybody feels worried and anxious from time to time, and this is a normal part of life. If your anxiety makes you unhappy, or stops you from doing the things you want to do, it may be a problem. Anxiety can cause fast heartbeat and breathing as well as problems concentrating. Why am I anxious? It is hard to point to the cause of anxiety. Each person is different and is anxious for different reasons. Life stresses, some medications and diseases, and events in the past can all make you anxious. What can I do? Exercise Exercise is a great way to reduce anxiety. Aerobic exercises like running, swimming or cycling. arethe best. Aim to do at least 30 minutes of exercise five times a week. For anxiety even 20-30 minutes three times a week can help. Stop smoking Smoking may relax you while you are smoking but it makes you feel more anxious the rest of the time. Quitting will actually make you feel a lot better, not worse. Eat well Eat vegetables and fruit every day and fish and legumes (lentils, chickpeas, beans etc.) at least 2-3 times a week. Cut down on bread, potatoes and sugar as these foods can make your anxiety worse bycausing ups and downs in your blood sugar levels. Cut out caffeine Coffee, tea and many types of soda have caffeine in them. Caffeine can wake you up, but it can alsomake you feel nervous and anxious. Even just one cup of coffee a day could be too much. Try seltzer, with a bit of fruit juice, or an herbal tea instead. anxiety Drink less alcohol Alcohol can increase your anxiety so it could helpful to drink less or stop drinking. If you do drink, do not drink more than one drink a day and don?t drink every day. Fillmore-3 fatty acids Fillmore-3 fatty acids are found in oily fish like salmon and sardines, and walnuts, flax and pumpkin seeds. They help keep the heart healthy and also may be good for depression and anxiety. Try to eat some of these foods every day. Fish oil supplements are also an option if you find it hard to eat these foods. Mind-Body Psychotherapy Cognitive behavioral therapy (CBT) is one of the best therapies for anxiety. With a therapist you will talk the about the thoughts that give you anxiety and what happens when you feel anxious. Together you will learn how to think in a more positive way and learn ways to calm yourself if you feel anxious. Relaxation Response Slow breathing - Deep breaths slow your heart, which is good for anxiety. You can do breathing exercises like abdominal breathing on your own or with the help of a biofeedback machine. Yoga Yoga helps connect mind and body to give a deep sense of calm. Whatever your age or fitness level, there is a type of yoga for you. Mindfulness-based stress reduction (MBSR) Mindfulness-based stress reduction is a type of meditation training that helps people overcome painand stress. Among other things, it teaches you to be aware of your body by focusing your attention on it. Acupuncture Acupuncture is a Traditional [place] treatment using very thin needles in the skin which can be very helpful for anxiety Botanicals These herbal medicines can help with anxiety, but be sure to let your health healthcare representative knowif you are taking them. Valerian Valerian can help with sleep and may help you feel less anxious and stressed You can take it in capsules, tablets, or extract for best effect. Passionflower Passionflower helps some people relax. It can work well in either tea form or as a liquid extract or a capsule. Lavender oil Some people find the smell of lavender relaxing. You can mix 2-3 drops of lavender oil with 10 drops of good quality vegetable oil and rub this into the back of your neck to help with anxiety. documented in [facility] NoteHNO ID: [id number] Author: JAMES HARRY DO Service: ? Author Type: Physician Type: Progress Notes Filed: 07/26/2024 14:07 Note Text: CC: anxiety f/u S: 59 year old female with history below presents for anxiety f/u.was given 30 lorazepam and has not taken it in "awhile". Last dose was 2-3 months ago. Anxiety has been well controlled. Having issues with bruising- noticed bruising on the UEs a few times in the past couple months. Admits to having taken "a lot of motrin" for her hip pain until she got on tramadol. Was on "9 motrin a day" at one point. Not taking them regularly. Admits to spending a lot of time in the sun. Has used tanning beds as recently as the summer. Found to have a left FA labral tear. Had a left hip injection. It is not being recommended that she get her labrums repaired. Patient admits to moving around a lot - goes biking/kayaking in the summertime. Does more weightlifting/yoga in the winter time. Going to PT for her hips. 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 Takes half a dose of tramadol before and during her day, then takes another one before bedtime. Doing everything she can to avoid surgery. PHQ-9 Score: 2 (07/26/2024 12:58 PM) (0-4) minimal depression, (5-9) mild depression, (10-14) moderate depression, (15-19) moderately severe depression, (20-27) severe depression KEYONNA-7 Total Score: 7 (12/05/2018 3:10 PM) (0-4) minimal anxiety, (5-9) mild anxiety, (10-14) moderate anxiety, (15-21) severe anxiety Has a fine tremor that is worse with pain/stress and better after lorazepam. Wondering what it could be. Brother has the tremor as well. PDMP website checked and validated. All prescriptions have been APPROPRIATELY filled. No suspicious activity was identified. 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 flecainide; indication: symptomatic PSVT with WPW syndrome Other anxiety states Palpitations Paroxysmal supraventricular tachycardia (HCC) see "WPW Syndrome" Primary insomnia 06/11/2015 Sinus tachycardia 10/20/2023 Stress incontinence, female Unspecified asthma(493.90) 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; attempt at catheter ablation 11/2016 failed; she continues to experience intermittent palpitations and tachycardia despite treatment with flecainide; successful RFCA 03/2018 PAST SURGICAL HISTORY Procedure Laterality Date BLADDER SURGERY HX 11/2015 bladder sling BREAST AUGMENTATION WITH IMPLANT 11/2007 Breast augmentation CARDIAC MONITORING CONTINUOUS 05/25/2018 96 hours monitoring: sinus rhythm, sinus tachycardia; patient event activations and/or reported symptoms correlated with sinus rhythm and sinus tachycardia DELIVERY ONLY 85, 88,92 , low cervical X3 COLONOSCOPY 06/2021 EGD 2019 LIGATION OF HEMORRHOID(S) 10/07/2020 IUD INSERTION ([facility])_*FL 08/30/2007 Mirena - removed LAPAROSCOPY SURG CHOLECYSTECTOMY 11/16/2017 [facility] OOPHORECTOMY, PART/TOTAL UNILAT/BILAT 2016 PAST SURGICAL HISTORY OF 09/2021 C4-C6 disc replacement S PK LAVH [id number] 2013 lavh RICKY biltareal salpingectomy SVT ABLATION W/ EP COMPLETE 11/24/2016 [facility], Dr. Mcknight; right midseptal AP unable to be ablated despite cryoablation and RF ablation attempts; AP described as not having capability for extremely rapid antegrade conduction SVT ABLATION W/ EP COMPLETE 03/28/2018 left posteroseptal AP just within the proximal CS; Stereotaxis RF with Carto guidance, successful elimination of AP conduction; no SVT inducible pre- or post-ablation; [facility] Dr. Luong TONSILLECTOMY AND ADENOIDECTOMY VAGINAL HYSTERECTOMY Current Outpatient Medications Medication Sig Dispense Refill traZODone (DESYREL) 50 mg tablet TAKE 1 AND 1/2 TABLETS BY MOUTH EVERY NIGHT AT BEDTIME 135 tablet 3 traMADol (ULTRAM) 50 mg tablet Take 1 tablet by mouth every 12 hours for 30 days. 60 tablet 0 metoprolol succinate ER (TOPROL XL) 25 mg 24 hr tablet Take 1 tablet by mouth every afternoon. 90 tablet 3 Ipratropium [place] (ATROVENT) 21 mcg (0.03 %) nasal spray INHALE 2 SPRAYS IN EACH NOSTRIL 3 TIMES A DAY 90 mL 3 REFRESH OPTIVE ADVANCED 0.5-1-0.5 % drop INSTILL 1 DROP IN EACH EYE 4 TIMES A DAY NEEDED IMVEXXY MAINTENANCE PACK 10 mcg inst INSERT 1 TABLET VAGINALLY 2 TIMES A WEEK levalbuterol (XOPENEX) 1.25 mg/3 mL nebulizer solution Inhale 1 ampule via nebulizer 4x daily as needed. azelastine 0.1% nasal spray Use 2 Sprays in each nostril two times a day. (more content not included)...[facility]10-24-2024 History of Present illness Narrative* James Harry DO - 07/26/2024 12:57 PM EDT CC: anxiety f/u S: 59 year old female with history below presents for anxiety f/u.was given 30 lorazepam and has not taken it in "awhile". Last dose was 2-3 months ago. Anxiety has been well controlled. Having issues with bruising- noticed bruising on the UEs a few times in the past couple months. Admits to having taken "a lot of motrin" for her hip pain until she got on tramadol. Was on "9 motrin aday" at one point. Not taking them regularly. Admits to spending a lot of time in the sun. Has usedtanning beds as recently as the summer. Found to have a left FA labral tear. Had a left hip injection. It is not being recommended that sheget her labrums repaired. Patient admits to moving around a lot - goes biking/kayaking in the summertime. Does more weightlifting/yoga in the winter time. Going to PT for her hips. 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 Takes half a dose of tramadol before and during her day, then takes another one before bedtime. Doing everything she can to avoid surgery. PHQ-9 Score: 2 (07/26/2024 12:58 PM) (0-4) minimal depression, (5-9) mild depression, (10-14) moderate depression, (15-19) moderately severe depression, (20-27) severe depression KEYONNA-7 Total Score: 7 (12/05/2018 3:10 PM) (0-4) minimal anxiety, (5-9) mild anxiety, (10-14) moderate anxiety, (15-21) severe anxiety Has a fine tremor that is worse with pain/stress and better after lorazepam. Wondering what it could be. Brother has the tremor as well. PDMP website checked and validated. All prescriptions have been APPROPRIATELY filled. No suspiciousactivity was identified. 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; indication: symptomatic PSVT with WPW syndrome Other anxiety states Palpitations Paroxysmal supraventricular tachycardia (HCC) see "WPW Syndrome" Primary insomnia 06/11/2015 Sinus tachycardia 10/20/2023 Stress incontinence, female Unspecified asthma(493.90) WPW (Esnqv-Urybpnthl-Qgfen syndrome) associated with symptomatic SVT; attempt at catheter ablation 11/2016 failed; she continues to experience intermittent palpitations and tachycardia despite treatment with flecainide; successful RFCA 03/2018 PAST SURGICAL HISTORY Procedure Laterality Date BLADDER SURGERY HX 11/2015 bladder sling BREAST AUGMENTATION WITH IMPLANT 11/2007 Breast augmentation CARDIAC MONITORING CONTINUOUS 05/25/2018 96 hours monitoring: sinus rhythm, sinus tachycardia; patient event activations and/or reported symptoms correlated with sinus rhythm and sinus tachycardia DELIVERY ONLY 85, 88,92 , low cervical X3 COLONOSCOPY 06/2021 EGD 2019 F LIGATION OF HEMORRHOID(S) 10/07/2020 IUD INSERTION ([facility])_*FL 08/30/2007 Mirena - removed LAPAROSCOPY SURG CHOLECYSTECTOMY 11/16/2017 [facility] OOPHORECTOMY, PART/TOTAL UNILAT/BILAT 2016 PAST SURGICAL HISTORY OF 09/2021 C4-C6 disc replacement S PK LAVH [id number] 2013 lavh RICKY biltareal salpingectomy SVT ABLATION W/ EP COMPLETE 11/24/2016 [facility], Dr. Mcknight; right midseptal AP unable to be ablated despite cryoablation and RF ablation attempts; AP described as not having capability for extremely rapid antegrade conduction SVT ABLATION W/ EP COMPLETE 03/28/2018 left posteroseptal AP just within the proximal CS; Stereotaxis RF with Carto guidance, successful elimination of AP conduction; no SVT inducible pre- or post-ablation; [facility] Dr. Luong TONSILLECTOMY & ADENOIDECTOMY <AGE 13 1969 VAGINAL HYSTERECTOMY Current Outpatient Medications Medication Sig Dispense Refill traZODone (DESYREL) 50 mg tablet TAKE 1 AND 1/2 TABLETS BY MOUTH EVERY NIGHT AT BEDTIME 135 tablet 3 traMADol (ULTRAM) 50 mg tablet Take 1 tablet by mouth every 12 hours for 30 days. 60 tablet 0 metoprolol succinate ER (TOPROL XL) 25 mg 24 hr tablet Take 1 tablet by mouth every afternoon. 90 tablet 3 Ipratropium [place] (ATROVENT) 21 mcg (0.03 %) nasal spray INHALE 2 SPRAYS IN EACH NOSTRIL 3 TIMES A DAY 90 mL 3 REFRESH OPTIVE ADVANCED 0.5-1-0.5 % drop INSTILL 1 DROP IN EACH EYE 4 TIMES A DAY NEEDED IMVEXXY MAINTENANCE PACK 10 mcg inst INSERT 1 TABLET VAGINALLY 2 TIMES A WEEK levalbuterol (XOPENEX) 1.25 mg/3 mL nebulizer solution Inhale 1 ampule via nebulizer 4x daily as needed. azelastine 0.1% nasal spray Use 2 Sprays in each nostril two times a day. 90 mL 3 Nebulizer and Compressor For Neb (PORTABLE NEBULIZER SYSTEM) 1 Each every 4 hours as needed. 1 Each3 gabapentin (NEURONTIN) 100 mg capsule Take 2 capsules by mouth daily at bedtime. (Patient taking differently: Take 100 mg by mouth daily at bedtime.) 180 capsule 3 ipratropium bromide (ATROVENT) 42 mcg (0.06 %) nasal spray Use 2 Sprays in the nose three times a day. 45 mL 3 rimegepant (NURTEC ODT) 75 mg disintegrating tablet dissolve 1 tablet orally AT ONSET OF MIGRAINE and may repeat ONCE PER 24 HOURS IF NEEDED 8 tablet 11 magnesium oxide (MAG-OX) 400 mg (241.3 mg magnesium) tablet Take 1 tablet by mouth once daily. 90 tablet 3 puwaqnqhqxqwa-xhl-rkbn35-PF (REFRESH OPTIVE ADVANCED, PF,) 0.5-1-0.5 % dpet Use 1 Drop in eyes fourtimes a day as needed. [address] (PROTONIX) 40 mg tablet Take 1 tablet by mouth two times a day. 180 tablet 3 levalbuterol tartrate HFA 45 mcg/actuation inhaler Inhale 1-2 Puffs as instructed every 4 hours as needed for wheezing/shortness of breath. 45 g 3 fexofenadine (LAURA ALLERGY) 180 mg tablet Take 1 tablet by mouth once daily. 90 tablet 3 tiZANidine (ZANAFLEX) 4 mg tablet Take 1 tablet by mouth every 8 hours as needed. prn 30 tablet 11 cephALEXin (KEFLEX) 250 mg capsule Take 250 mg by mouth once daily as needed (after intercourse). montelukast (SINGULAIR) 10 mg tablet ondansetron (ZOFRAN) 4 mg tablet take 1 tablet by mouth every 8 hours if needed for nausea and vomiting 30 tablet 1 ARNUITY ELLIPTA 200 mcg/actuation inhaler inhale 1 puff by mouth daily dicyclomine (BENTYL) 10 mg capsule Take 1 capsule by mouth three times daily. 90 capsule 2 phenazopyridine (PYRIDIUM, GERIDIUM) 200 mg tablet Take 200 mg by mouth three times a day as neededfor pain. prn estradiol (NOBLE, VIVELLE-DOT) 0.025 mg/24 hr 1 Patch every Tuesday and Tuesday. No current facility-administered medications for this visit. SOCIAL (pertinent): Social History Tobacco Use Smoking status: Never Smokeless tobacco: Never Vaping Use Vaping status: Never Used Substance Use Topics Alcohol use: Yes Comment: occasionally Drug use: No FAMILY (pertinent): FAMILY HISTORY Problem Relation Age of Onset Thyroid Mother goiter other (Palpitations) Mother Asthma Father Asthma Son other (Palpitations) Son Thyroid Maternal Grandmother goiter other (Other) Maternal Grandfather young in MVA Emphysema Paternal Grandmother Heart Failure Paternal Grandmother other (tobacco use) Paternal Grandmother Heart disease Paternal Grandfather had a heart attack and at young age Stroke Paternal Grandfather Prostate Cancer Paternal Grandfather Asthma Daughter other (Brain tumor) Daughter benign Seizures Brother Heart Brother WPW syndrome; ablation unsuccessful -- too close to AV node other (Other) Other no unexplained sudden , crib deaths, unexplained syncope ROS: See HPI O: PHYSICAL EXAM: BP 130/80 Pulse 75 Ht 157.5 cm (5' 2") Wt 65.2 kg (143 lb 11.8 oz) LMP 05/06/2014 SpO2 100% BMI 26.29 kg/m Gen: Patient is pleasant, alert, NAD, well appearing Head: Normocephalic, atraumatic CV: Regular rate and rhythm, normal S1/S2, no murmurs, rubs Pulm: Clear to auscultation bilaterally, no wheezes, crackles, or rhonchi Neuro: EOMI, fine action tremor in the UEs. Extrem: No cyanosis, clubbing, or edema. Distal pulses equal and palpable b/l Skin: Warm, dry, no visible rashes, scattered melanocytic nevi and hypopigmented macules over the neck, trunk, and b/l UEs/LEs. Few fleshy papules over the trunk and RLE. No suspicious lesions appreciated. Healing ecchymosis over the right distal forearm. A/P: 59 year old female with ASSESSMENT/PLAN: 1. Anxiety - ICD9: 300.00, ICD10: F41.9 (primary diagnosis) Stable Continue lorazepam sparingly Nonmedication anxiety Tx given in AVS - COMPREHENSIVE METABOLIC PANEL - THYROID STIMULATING HORMONE 2. Screening for depression - ICD9: V79.0, ICD10: Z13.31 - DEPRESSION SCREENING 3. Tear of right acetabular labrum, initial encounter - ICD9: 843.8, ICD10: S73.191A Continue Tx plan per ortho. Continue tramadol PRN for pain. Patient will research LV fix to learn stretches for opening up her hip angles to reduce pain - TRAMADOL 50 MG TABLET 4. Encounter for immunization - ICD9: V03.89, ICD10: Z23 - INFLUENZA VACCINE, AGE 6MO-64YR, TRIVALENT (AFLURIA, FLULAVAL, FLUVIRIN, FLUZONE) 5. Ecchymosis - ICD9: 459.89, ICD10: R58 Likely 2/2 minor traumas on the UEs. Check labs to look for iron/PLT deficiencies and f/u if worsening s/s. - COMPLETE BLOOD COUNT - FERRITIN - IRON AND TIBC - COMPREHENSIVE METABOLIC PANEL - THYROID STIMULATING HORMONE 6. Iron deficiency anemia, unspecified iron deficiency anemia type - ICD9: 280.9, ICD10: D50.9 As above - FERRITIN - IRON AND TIBC - COMPREHENSIVE METABOLIC PANEL - THYROID STIMULATING HORMONE 7. Essential tremor - ICD9: 333.1, ICD10: G25.0 Pathophysiology d/w the patient. Monitor for worsening s/s. James Harry DO July 26, 2024 12:57 PM Follow up in 6 months for wellness exam documented [facility] Telephone encounter Note * Telephone Encounter - Codie Soler LPN - 07/24/2024 7:08 AM EDT Patient's request for medication is as follows: Requested Prescriptions Pending Prescriptions Disp Refills metoprolol succinate ER (TOPROL XL) 25 mg 24 hr tablet [Pharmacy Med Name: Metoprolol Succinate ER Oral Tablet Extended Release 24 Hour 50 MG] 90 tablet 3 Sig: Take 1 tablet by mouth every afternoon. Last seen 05/25/2024. Dose decreased to 25 mg daily in last visit. Script adjusted accordingly. Follow up scheduled for 12/07/2024. Prescription(s) as above. Please process accordingly. Codie Soler LPN [facility] Miscellaneous Notes* Telephone Encounter - Codie Soler LPN - 07/24/2024 7:08 AM EDT Patient's request for medication is as follows: Requested Prescriptions Pending Prescriptions Disp Refills metoprolol succinate ER (TOPROL XL) 25 mg 24 hr tablet [Pharmacy Med Name: Metoprolol Succinate ER Oral Tablet Extended Release 24 Hour 50 MG] 90 tablet 3 Sig: Take 1 tablet by mouth every afternoon. Last seen 05/25/2024. Dose decreased to 25 mg daily in last visit. Script adjusted accordingly. Follow up scheduled for 12/07/2024. Prescription(s) as above. Please process accordingly. Codie Soler LPN documented in this encounterC[facility]10-[facility]24 Instructions* Patient Instructions* Sharron Hollis APRN.ASBESTOS MICROSCOPIST - 07/19/2024 11:12 AM EDT AFTER VISIT CARE BOTOX INJECTION While these procedures can be extremely helpful as part of your headache treatment plan, they can irritate the muscles and tissues in your head, neck and shoulders. Proper follow-up care is important to avoid muscle spasms and temporary pain increase within the following 3-5 days after your clinic visit. Here are some tips to help decrease side-effects that may occur and maximize the effectiveness of your pain relief -HYDRATION Hydration is important to help nourish your muscles and tissues. Drink 60-80 oz of non caffeinated fluid at least for 3 days after your visit. -REST Rest will help avoid further irritation of muscle and tissues. Remember that you need to give your body time to adjust. NO strenuous activity for at least the first 24 hours after your visit. Gentle stretching, yoga, meditation or even swimming is OK and encouraged. -ICE/HEAT Since these procedures irritate muscles, there can be some swelling. Alternating ice and heat every3-5 times per day may help decrease this, while also optimizing pain relief Use cool gel packs for ice for 10 min. Use a warm moist towel covered with a dry towel on neck and shoulders. Alternate stretching each side of the neck. -STRETCHING Slow, gentle stretching of the neck and shoulders once every hour is helpful to avoid muscle spasms. -TREAT MUSCLE SPASMS If you are already prescribed a muscle relaxer such as baclofen, tizanidine or flexeril, use as directed. If you do not have one, talk to your provider to find out if this would be safe for you to use. Do not rub or massage the area for 48- 72 hours. -OTHER No hair dyes or permanents for 24 hours. If you are paying out of pocket for Botox go online to Botox Savings Program and see if you qualifyfor reimbursement. Return in 3 months for your next Botox Injection documented in this [facility]10[facility] History of Present illness Narrative* Sharron Hollis APRN.ASBESTOS MICROSCOPIST - 07/19/2024 11:00 AM EDT Headache Center Follow-up Visit Impression: Chronic migraine without aura, intractable, without status migrainosus (primary encounter diagnosis) Marcial Yeung has been previously approved for an Oral Calcitonin Gene-Related Peptide Receptor Antagonist (GEPANT) Rimegepant for the treatment of abortive use. The patient has demonstrated the following: Provider attests patient has had a positive clinical response: Yes Patient will not use with another Oral Calcitonin Gene-Related Peptide Receptor Antagonist (GEPANT): Yes Patient's quality of life and ability to perform ADLs has improved: Yes The patient has tried and failed the following : We suggest the patient continue treatment with GEPANT Rimegepant. The following preventative medications have been tried for three or more months without benefit: Anti-Convulsant Gabapentin (Neurontin) Topiramate (Topamax, Trokendi XL, Qudexy) Anti-Depressant and Antipsychotic Amitriptyline (Elavil) Bupropion (Wellbutrin) Citalopram (Celexa) Fluoxetine (Prozac) Venlafaxine (Effexor) Blood Pressure Metoprolol (Lopressor,Toprol XL) Propranolol (Inderal) Botulinum Toxin Onabotulinum Toxin A (Botox) Supplements Magnesium The following abortive medications have been tried but require high frequency use which can lead toMedication Overuse Headache: Analgesic Hydrocodone/Acetaminophen (Vicodin, [place]) Hydromorphone (Dilaudid) Meloxicam (Mobic) Meperidine (Demerol) Oxycodone Oxycodone/Acetaminophen (Percocet) Tramadol (Ultram) Anti-Anxiety Lorazepam (Ativan) Anti-Migraine Rizatriptan (Maxalt) Sumatriptan (Imitrex, Sumavel) GEPANTS Ubrogepant (Ubrelvy) Rimegepant (Nurtec) Over the Counter Medications Acetaminophen (Tylenol) Acetaminophen/Aspirin/Caffeine (Excedrin, Goody s) Aspirin Ibuprofen (Advil, Motrin) Naproxen sodium (Aleve) Follow-Up Onabotulinum Toxin A (BotoxTM) for Migraine Indication: Chronic Intractable Migraine Referral Expiration: 10/09/2025 Prior to the initiation of the FIRST treatment with Onabotulinum Toxin A, the patient reported the following average headache frequency over the past 3 MONTHS: Number of moderate-severe migraine days/month: 25 Number of mild migraine days/month: 0 Number of headache free days/month: 5 (120 headache-free hours) After treatment with Onabotulinum Toxin A: Number of moderate-severe migraine days/month: 1 Number of mild migraine days/month: 4 Number of headache free days/month: 25 (600 headache-free hours) Patient reduction in overall migraine days: Yes Patient reduction in moderate-severe migraine days: Yes Patient reduction of headache hours by 100 hours or more: Yes (reduction of 480 hours) Individual has obtained clinical benefit deemed significant by individual or prescriber (Y/N): Yes Patient's quality of life and ability to perform ADLs has improved (Y/N): Yes Side effects: none The patient has been assessed for disorders which could contribute to breathing or swallowing difficulty, and there is no contraindication with PREEMPT Botox. There is no documented allergic reaction/hypersensitivity to any botulinum toxin and there is no active infection at proposed injection site. HEADACHE SCORES: 10/26/2023 01/18/2024 04/17/2024 Headache Questions ER visits since last office visit: 0 0 0 Hospital stays since last office visit 0 0 0 Limited ADLs in the last month: 0 1 0 Days missed from work or school in the last month: 0 0 0 Days headache pain free in the last month: 23 22 25 Days per month with ALL of the following symptoms - decreased productivity, light sensitivity and nausea: 2 1 0 Initial improvement of headache after botox injection at last visit: Minimally improved Much improved Much improved PRN medication usage in the last month: 7 10 6 Patient impression of improvement since last visit: No change No change No change 10/26/2023 01/18/2024 04/17/2024 HIT-6 HIT-6 44 (Little or no impact) Incomplete 40 (Little or no impact) 10/26/2023 01/18/2024 04/17/2024 KEYONNA - 2/7 SCORES KEYONNA-2 Score 0 0 0 10/26/2023 01/18/2024 04/17/2024 Migraine Specific QOL - Higher scores indicate better HRQL Role Function-Restrictive Transformed Score (range: 0-100) 88.57 91.43 100 Role Function-Preventive Transformed Score (range: 0-100) 100 100 100 Emotional Function Transformed Score (range: 0-100) 100 100 100 04/17/2024 01/18/2024 10/26/2023 PHQ-9 Score 2 2 3 BP 136/90 Pulse 80 Ht 157.5 cm (5' 2") Wt 64.4 kg (142 lb) LMP 05/06/2014 BMI 25.97 kg/m Patient name: Marcial Lai Gamal : 1965 ALLERGIES Allergen Reactions 2-Octyl Cyanoacryla* Rash Blistering contact reaction Citalopram Other: See Comments Did not tolerate, ? Mental status changes Liquid Bandage [Enb* Rash blisters and rash Propranolol Mental Status Change Tetracycline GI Upset Abdominal pain/cramping UNIVERSAL PROTOCOL / SAFETY CHECKLIST Procedure: Onabotulinum toxin A for migraine Informed Consent Consent Obtained: Written [place] Protocol A moment to CARE was completed SIGN IN Personnel directly involved with the procedure wore the appropriate PPE Special Equipment: N/A Patient/Surrogate Stated/Verified: Patient name, Date of , Relevant allergies and Intended procedure TIME OUT Intended patient and procedure match the source document(s) Consent documented and matches the intended procedure No relevant labs, photos, and/or imaging studies were applicable for review. No correct side/site applicable for marking and visibility. No medications required for procedure. No fire risk assessment and interventions applicable. No implant(s) inserted. SIGN OUT No specimen collected. No instruments, equipment or retained foreign bodies applicable. Post-procedure follow-up management communicated and Plan of Care Visit completed when applicable Written Consent Obtained: Written LOT #: [id number] Expiration Date: Month: Year: 2025 Second vial: LOT #: [id number] Expiration Date: Month: Year: 2025 Injection Sites Left (Units) Left (Sites) Right (Units) Right (Sites) TOTAL (Units) Pesticide Chemist 5 1 5 1 10 Procerus Units: 5 Sites: 1 5 Frontalis 10 2 10 2 20 Temporalis optional follow the pain 20 5 4 1 20 5 4 1 50 Occipitalis optional follow the pain 15 10 3 2 15 10 3 2 50 Cervical PSP 10 2 10 2 20 Trapezius optional follow the pain 15 7.5 3 2 15 7.5 3 2 45 Total Units used: 200 Total Units wasted: 0 Patient tolerated procedure well. Prior Therapies Duration of Use Dose Side effect Analgesic Hydrocodone/Acetaminophen (Vicodin, [place]) Hydromorphone (Dilaudid) Meloxicam (Mobic) Meperidine (Demerol) Oxycodone Oxycodone/Acetaminophen (Percocet) Tramadol (Ultram) Anti-Anxiety Lorazepam (Ativan) Anti-Convulsant Gabapentin (Neurontin) Topiramate (Topamax, Trokendi XL, Qudexy) Anti-Depressant and Antipsychotic Amitriptyline (Elavil) Bupropion (Wellbutrin) Citalopram (Celexa) Fluoxetine (Prozac) Venlafaxine (Effexor) Antiemetics Metoclopramide Ondansetron Prochlorperazine Promethazine Anti-Migraine Rizatriptan (Maxalt) Sumatriptan (Imitrex, Sumavel) Blood Pressure Metoprolol (Lopressor,Toprol XL) Propranolol (Inderal) GEPANTS Ubrogepant (Ubrelvy) Rimegepant (Nurtec) Botulinum Toxin Onabotulinum Toxin A (Botox) Muscle Relaxer Cyclobenzaprine (Flexeril) Sleep Aids Trazodone (Desyrel) Zolpidem (Ambien) Supplements Magnesium Other Medications Dexamethasone (Decadron) Prednisone Over the Counter Medications Acetaminophen (Tylenol) Acetaminophen/Aspirin/Caffeine (Excedrin, Goody s) Aspirin Ibuprofen (Advil, Motrin) Naproxen sodium (Aleve) Sharron Hollis APRN.ASBESTOS MICROSCOPIST documented in this encounterC[facility] Instructions* Patient Instructions* Rosa Goff PA-C - 07/18/2024 9:33 PM EDT Post injection pain diary: Below, I have listed a template in a time-line format you may use as a guide for your pain diary. You are welcome to add any additional information may find helpful to describe your symptoms. PRIOR to the injection, please rate your left Hip Pain: 1 - 10 , with 1 lowest pain, 10 highest pain? - Please describe the pain you were experiencing in your left Hip- PRIOR to the injection - please bedescriptive (sharp/ stabbing/ throbbing etc.) ? - DAY 0 - Injection Day - Post Injection - 0 - 2 hours - Did you experience any relief from your pain after the injection? - Yes / No - AFTER the injection, please rate your Pain: 1 - 10 , with 1 lowest pain, 10 highest pain? - After the injection, if you did experience any relief / decrease in pain, please describe the relief you experienced? - Post Injection - 2 - 4 hours - Did you experience any relief from your pain after the injection? - Yes / No - AFTER the injection, please rate your Pain: 1 - 10 , with 1 lowest pain, 10 highest pain? - After the injection, if you did experience any relief / decrease in pain, please describe the relief you experienced? - Post Injection - 6 - 10 hours - Did you experience any relief from your pain after the injection? -Yes / No - AFTER the injection, please rate your Pain: 1 - 10 , with 1 lowest pain, 10 highest pain? - After the injection, if you did experience any relief / decrease in pain, please describe the relief you experienced? - Post Injection - 10 - 16 hours - Did you experience any relief from your pain after the injection? - Yes / No - AFTER the injection, please rate your Pain: 1 - 10 , with 1 lowest pain, 10 highest pain? - After the injection, if you did experience any relief / decrease in pain, please describe the relief you experienced? - Post Injection - 16 - 24 hours - Did you experience any relief from your pain after the injection? - Yes / No AFTER the injection, please rate your Pain: 1 - 10 , with 1 lowest pain, 10 highest pain? - After the injection, if you did experience any relief / decrease in pain, please describe the relief you experienced? - DAY 1 - Day after Injection - Post Injection - 24 hours - Did you experience any relief from your pain after the injection? - Yes/ No - AFTER the injection, please rate your Pain: 1 - 10 , with 1 lowest pain, 10 highest pain? - After the injection, if you did experience any relief / decrease in pain, please describe the relief you experienced? - DAY 2 - after Injection - Post Injection - 24 hours - Did you experience any relief from your pain after the injection? - Yes/ No - AFTER the injection, please rate your Pain: 1 - 10 , with 1 lowest pain, 10 highest pain? - After the injection, if you did experience any relief / decrease in pain, please describe the relief you experienced? - DAY 3 - after Injection - Post Injection - 24 hours - Did you experience any relief from your pain after the injection? - Yes/ No - AFTER the injection, please rate your Pain: 1 - 10 , with 1 lowest pain, 10 highest pain? - After the injection, if you did experience any relief / decrease in pain, please describe the relief you experienced? - DAY 4 - after Injection - Post Injection - 24 hours - Did you experience any relief from your pain after the injection? - Yes/ No - AFTER the injection, please rate your Pain: 1 - 10 , with 1 lowest pain, 10 highest pain? - After the injection, if you did experience any relief / decrease in pain, please describe the relief you experienced? - DAY 5 - after Injection - Post Injection - 24 hours - Did you experience any relief from your pain after the injection? - Yes/ No - AFTER the injection, please rate your Pain: 1 - 10 , with 1 lowest pain, 10 highest pain? - After the injection, if you did experience any relief / decrease in pain, please describe the relief you experienced? - DAY 7 - after Injection - Post Injection - 24 hours - Did you experience any relief from your pain after the injection? - Yes/ No - AFTER the injection, please rate your Pain: 1 - 10 , with 1 lowest pain, 10 highest pain? - After the injection, if you did experience any relief / decrease in pain, please describe the relief you experienced? - DAY 10 - after Injection - Post Injection - 24 hours - Did you experience any relief from your pain after the injection? - Yes/ No - AFTER the injection, please rate your Pain: 1 - 10 , with 1 lowest pain, 10 highest pain? - After the injection, if you did experience any relief / decrease in pain, please describe the relief you experienced? - DAY 12 - after Injection - Post Injection - 24 hours - Did you experience any relief from your pain after the injection? - Yes/ No - AFTER the injection, please rate your Pain: 1 - 10 , with 1 lowest pain, 10 highest pain? - After the injection, if you did experience any relief / decrease in pain, please describe the relief you experienced? - DAY 14 - after Injection - Post Injection - 24 hours - Did you experience any relief from your pain after the injection? - Yes/ No - AFTER the injection, please rate your Pain: 1 - 10 , with 1 lowest pain, 10 highest pain? - After the injection, if you did experience any relief / decrease in pain, please describe the relief you experienced? - documented in this encounterC[facility]10-[facility] History of Present illness Narrative* Nimesh Velasquez DO - 07/18/2024 11:28 AM EDTAssociated Order(s): Large Joint Arthro/Inj: L hip joint Post-Procedure Diagnose(s): Tear of left acetabular labrum, initial encounter Tear of left acetabular labrum, initial encounter (primary encounter diagnosis) Pain of left hip Pain of right hip Acetabular labrum tear, right, initial encounter Large Joint Arthro/Inj: L hip joint Informed Consent Consent Obtained: Verbal [place] Protocol A moment to CARE was completed. SIGN IN Personnel directly involved with the procedure wore the appropriate PPE. Patient/Surrogate Stated/Verified: Patient name, Date of , Relevant allergies and Intended procedure TIME OUT Intended patient and procedure match the source document(s). Consent documented and matches the intended procedure. Correct side/site marked and visible. Medications required for procedure verified. Fire risk assessed and interventions discussed. 07/18/2024 11:28 AM The procedure site was prepped in the usual sterile fashion. Site: L hip joint Details:Musculoskeletal ultrasound was utilized to successfully localize placement of the injectionneedle at the appropriate site. Ultrasound images demonstrating local vasculature and demonstratinginjection of solution were saved. Medications: 6 mg betamethasone acetate-betamethasone sodium phosphate 6 mg/mL Anesthetics: 2 mL lidocaine (PF) 10 mg/mL (1 %) Outcome: Tolerated well, no immediate complications Post-injection instructions were reviewed with the patient and the patient voiced understanding of these instructions. SIGN OUT Post-procedure follow-up management communicated and Plan of Care Visit completed when applicable Nimesh Velasquez DO documented in this encounterC[facility]10-14-[facility] History of Present illness Narrative* Rosa Goff PA-C - 07/16/2024 9:40 AM EDT VIRTUAL VISIT PROGRESS NOTE This is a virtual visit using [employer] Zoom Video Visit. It required patient- provider interaction for the medical decision making as documented below. I have communicated my name and active licensure. The patient's identity and physical location wereverified at the time of this visit. Either the patient or their legal sales representative wire rope has been informed of the risks and benefits of -- and alternatives to -- treatment through a remote evaluation andconsents to proceed with the evaluation remotely. Marcial Yeung is a 59 year old female seen for left hip follow up, MRI review. Pain improved with diclofenac but has had some increased pain as of this morning. Mostly localized laterally, rated 5/10. Pain with steps. She is scheduled for imaging guided RIGHT hip injection. 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 flecainide; indication: symptomatic PSVT with WPW syndrome Other anxiety states Palpitations Paroxysmal supraventricular tachycardia (HCC) see "WPW Syndrome" Primary insomnia 06/11/2015 Sinus tachycardia 10/20/2023 Stress incontinence, female Unspecified asthma(493.90) 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; attempt at catheter ablation 11/2016 failed; she continues to experience intermittent palpitations and tachycardia despite treatment with flecainide; successful RFCA 03/2018 PAST SURGICAL HISTORY Procedure Laterality Date BLADDER SURGERY HX 11/2015 bladder sling BREAST AUGMENTATION WITH IMPLANT 11/2007 Breast augmentation CARDIAC MONITORING CONTINUOUS 05/25/2018 96 hours monitoring: sinus rhythm, sinus tachycardia; patient event activations and/or reported symptoms correlated with sinus rhythm and sinus tachycardia DELIVERY ONLY 85, 88,92 , low cervical X3 COLONOSCOPY 06/2021 EGD 2019 F LIGATION OF HEMORRHOID(S) 10/07/2020 IUD INSERTION ([facility])_*FL 08/30/2007 Mirena - removed LAPAROSCOPY SURG CHOLECYSTECTOMY 11/16/2017 [facility] OOPHORECTOMY, PART/TOTAL UNILAT/BILAT 2016 PAST SURGICAL HISTORY OF 09/2021 C4-C6 disc replacement S PK LAVH [id number] 2014 lavh RICKY biltareal salpingectomy SVT ABLATION W/ EP COMPLETE 11/24/2016 [facility], Dr. Mcknight; right midseptal AP unable to be ablated despite cryoablation and RF ablation attempts; AP described as not having capability for extremely rapid antegrade conduction SVT ABLATION W/ EP COMPLETE 03/28/2018 left posteroseptal AP just within the proximal CS; Stereotaxis RF with Carto guidance, successful elimination of AP conduction; no SVT inducible pre- or post-ablation; [facility] Dr. Luong TONSILLECTOMY & ADENOIDECTOMY <AGE 13 1967 VAGINAL HYSTERECTOMY FAMILY HISTORY Problem Relation Age of Onset Thyroid Mother goiter other (Palpitations) Mother Asthma Father Asthma Son other (Palpitations) Son Thyroid Maternal Grandmother goiter other (Other) Maternal Grandfather young in MVA Emphysema Paternal Grandmother Heart Failure Paternal Grandmother other (tobacco use) Paternal Grandmother Heart disease Paternal Grandfather had a heart attack and at young age Stroke Paternal Grandfather Prostate Cancer Paternal Grandfather Asthma Daughter other (Brain tumor) Daughter benign Seizures Brother Heart Brother WPW syndrome; ablation unsuccessful -- too close to AV node other (Other) Other no unexplained sudden , crib deaths, unexplained syncope Social History Tobacco Use Smoking status: Never Smokeless tobacco: Never Vaping Use Vaping status: Never Used Substance Use Topics Alcohol use: Yes Comment: occasionally Drug use: No Current Outpatient Medications Medication Sig traMADol (ULTRAM) 50 mg tablet Take 1 tablet by mouth every 12 hours for 30 days. Ipratropium [place] (ATROVENT) 21 mcg (0.03 %) nasal spray INHALE 2 SPRAYS IN EACH NOSTRIL 3 TIMES A DAY REFRESH OPTIVE ADVANCED 0.5-1-0.5 % drop INSTILL 1 DROP IN EACH EYE 4 TIMES A DAY NEEDED IMVEXXY MAINTENANCE PACK 10 mcg inst INSERT 1 TABLET VAGINALLY 2 TIMES A WEEK levalbuterol (XOPENEX) 1.25 mg/3 mL nebulizer solution Inhale 1 ampule via nebulizer 4x daily as needed. azelastine 0.1% nasal spray Use 2 Sprays in each nostril two times a day. Nebulizer and Compressor For Neb (PORTABLE NEBULIZER SYSTEM) 1 Each every 4 hours as needed. gabapentin (NEURONTIN) 100 mg capsule Take 2 capsules by mouth daily at bedtime. (Patient taking differently: Take 100 mg by mouth daily at bedtime.) ipratropium bromide (ATROVENT) 42 mcg (0.06 %) nasal spray Use 2 Sprays in the nose three times a day. rimegepant (NURTEC ODT) 75 mg disintegrating tablet dissolve 1 tablet orally AT ONSET OF MIGRAINE and may repeat ONCE PER 24 HOURS IF NEEDED magnesium oxide (MAG-OX) 400 mg (241.3 mg magnesium) tablet Take 1 tablet by mouth once daily. traZODone (DESYREL) 50 mg tablet TAKE 1 AND 1/2 TABLETS BY MOUTH EVERY NIGHT AT BEDTIME [id number] (REFRESH OPTIVE ADVANCED, PF,) 0.5-1-0.5 % dpet Use 1 Drop in eyes fourtimes a day as needed. pantoprazole DR (PROTONIX) 40 mg tablet Take 1 tablet by mouth two times a day. levalbuterol tartrate HFA 45 mcg/actuation inhaler Inhale 1-2 Puffs as instructed every 4 hours as needed for wheezing/shortness of breath. fexofenadine (LAURA ALLERGY) 180 mg tablet Take 1 tablet by mouth once daily. tiZANidine (ZANAFLEX) 4 mg tablet Take 1 tablet by mouth every 8 hours as needed. prn cephALEXin (KEFLEX) 250 mg capsule Take 250 mg by mouth once daily as needed (after intercourse). montelukast (SINGULAIR) 10 mg tablet metoprolol succinate ER (TOPROL XL) 50 mg 24 hr tablet Take 1 tablet by mouth once daily. (Patient taking differently: Take 25 mg by mouth daily at bedtime.) ondansetron (ZOFRAN) 4 mg tablet take 1 tablet by mouth every 8 hours if needed for nausea and vomiting ARNUITY ELLIPTA 200 mcg/actuation inhaler inhale 1 puff by mouth daily dicyclomine (BENTYL) 10 mg capsule Take 1 capsule by mouth three times daily. phenazopyridine (PYRIDIUM, GERIDIUM) 200 mg tablet Take 200 mg by mouth three times a day as neededfor pain. prn estradiol (NOBLE, VIVELLE-DOT) 0.025 mg/24 hr 1 Patch every Tuesday and Tuesday. No current facility-administered medications for this visit. ALLERGIES Allergen Reactions 2-Octyl Cyanoacryla* Rash Blistering contact reaction Citalopram Other: See Comments Did not tolerate, ? Mental status changes Liquid Bandage [Enb* Rash blisters and rash Propranolol Mental Status Change Tetracycline GI Upset Abdominal pain/cramping REVIEW OF SYSTEMS: GENERAL: feeling well without fatigue, no recent change in weight MUSCULOSKELETAL: See HPI PHYSICAL EXAMINATION: VIDEO EXAM: (if completed, performed via video enabled technology) No exam performed Imaging: Last MRI Hip/Pelvis - Impression Only MRI HIP WO IVCON LEFT Exam End: 07/10/2024 12:23 PM (Final result) Impression: IMPRESSION: TEAR IN THE LEFT ANTERIOR SUPERIOR LABRUM. LEFT HIP LOW-GRADE DEGENERATIVE CHONDRAL CHANGES. BILATERAL GLUTEUS MINIMUS AND MEDIUS TENDINOSIS. ... ASSESSMENT: (S73.192A) Tear of left acetabular labrum, initial encounter (primary encounter diagnosis) (M25.552) Pain of left hip (M67.952) Tendinopathy of left gluteal region PLAN: - Imaging results reviewed verbally with the patient, multiple factors likely contribute to symptoms. She has had previous troch bursa injection with worsening hip pain. Therefore, recommend imaging guided hip joint injection for diagnostics/therapeutic purposes. Advised to keep a pain diary following injection. She will follow up with our office once the injection is completed to review responseot treatment and dictate next steps in plan of care. Arthroscopic candidacy based off of response to treatment and expectations in light of low grade chondral changes. Recommend revisiting with PT. There are no Patient Instructions on file for this visit. I spent a total of 30 minutes on the date of the service which included preparing to see the patient, [id number] patient care, completing clinical documentation, obtaining and/or reviewing separately obtained history, counseling and educating the patient/family/caregiver, ordering medications, fatemeh ts, or procedures, and communicating results to the patient/family/caregiver Rosa Goff PA-C documented in this encounterC[facility]10-08-[facility] History of Present illness Narrative* Antonina Douglas RT(R) - 07/10/2024 11:30 AM EDT Radiology Service Progress Note PATIENT NAME: Marcial Yeung DATE OF SERVICE: July 10, 2024 TIME: 12:12 PM PATIENT IDENTITY VERIFICATION COMPLETED USING TWO (2) IDENTIFIERS: Name and Date of confirmedby patient verbally and Name and Date of confirmed by identification band. FALL SCREENING: Has the patient had 2 falls in the last year or 1 fall with injury or currently using an Ambulatory Assistive Device (Walker, Cane, Wheelchair, Crutches, etc.)? No PATIENT GENDER DATA: Female. status: : No status: NO. PATIENT RELEVANT IMPLANT DATA REVIEWED: Not Applicable PATIENT PRESENTS WITH AN IMPLANTABLE OR ATTACHED TRUCK AND TRANSPORT MECHANIC: No RADIOLOGY DEPARTMENT: MR; Exam(s) Completed: Lower MSK: Hip, left PERIPHERAL IV DATA: Not applicable SIGNED BY: RT Sam(R) July 10, 2024 12:12 PM documented in this encounterCleveland Clinic [facility]09-27-2024 Telephone encounter Note * Telephone Encounter - Rebecca Servin MA - 06/29/2024 11:45 AM EDT 08/02/24 KEYANNA 11/29/23 Patient electronically sent a request for the following prescription(s) Requested Prescriptions Pending Prescriptions Disp Refills traMADol (ULTRAM) 50 mg tablet [Pharmacy Med Name: traMADol HCl Oral Tablet 50 MG] 60 tablet 0 Sig: Take 1 tablet by mouth every 12 hours. Patient aware RX will be sent to pharmacy. No need to notify patient. Please review. Rebecca Servin MA [facility]09-[facility] Miscellaneous Notes* Telephone Encounter - Rebecca Servin MA - 06/29/2024 11:45 AM EDT 08/02/24 KEYANNA 11/29/23 Patient electronically sent a request for the following prescription(s) Requested Prescriptions Pending Prescriptions Disp Refills traMADol (ULTRAM) 50 mg tablet [Pharmacy Med Name: traMADol HCl Oral Tablet 50 MG] 60 tablet 0 Sig: Take 1 tablet by mouth every 12 hours. Patient aware RX will be sent to pharmacy. No need to notify patient. Please review. Rebecca Servin MA documented in this encounterCleveland Clinic [facility]09-23-2024 Instructions* Patient Instructions* Rosa Goff PA-C - 06/25/2024 2:16 PM EDT - Our office will work to facilitate scheduling of imaging guided right hip injection. - Obtain MRI left hip - Diclofenac is an antiinflammatory medication. DO NOT take any additional antiinflammatories (ie Advil, Aleve) for pain control while taking this medication. - Physical therapy recommended - Follow up 2-3 days after MRI to review results and next steps documented in this encounterCleveland Clinic [facility]09-23-2024 History of Present illness Narrative* Rosa Goff PA-C - 06/25/2024 1:43 PM EDT Images from the original note were not included. NEW ENCOUNTER Chief Complaint: left hip pain PAIN INTAKE: PAIN EVALUATION 06/21/2024194306/25/2024 1325 Pain Level: 6 4 Pain Location: Hip-Left Hip-Left Description: Aching;Dull;Radiating;Sharp Dull;Aching;Sharp;Radiating Duration Amount of Time: 24 -- Duration Units: Months Months Frequency: Continuous Continuous Intervention/Comfort measure: Medication;Reposition;Cold;Heat;Massage;Pillow support;Positioning Reposition;Relaxation;Medication;Cold;Heat;Massage ibuprofen, tramadol, stretches Comments: Both hips -- History: Patient is a 59 year old female presenting for evaluation of left hip pain. She denies an acute injury event. Pain present for numerous years. Localized to the lateral and anterior hip. At times will travel to the buttock. Taking NSAIDs, stretches, tramadol for pain. Had similar symptoms on the right side which responded favorably to a cortisone injection February 2024.That injection has started to wear off and she would like to be considered for repeat injection. She completed PT for the hip in the past. H/o bilateral troch bursa injections in the past with NO improvement of symptoms. 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 flecainide; indication: symptomatic PSVT with WPW syndrome Other anxiety states Palpitations Paroxysmal supraventricular tachycardia (HCC) see "WPW Syndrome" Primary insomnia 06/11/2015 Sinus tachycardia 10/20/2023 Stress incontinence, female Unspecified asthma(493.90) WPW (Qlsuz-Mxjdxtdxg-Fvnea syndrome) associated with symptomatic SVT; attempt at catheter ablation 11/2016 failed; she continues to experience intermittent palpitations and tachycardia despite treatment with flecainide; successful RFCA 03/2018 PAST SURGICAL HISTORY Procedure Laterality Date BLADDER SURGERY HX 11/2015 bladder sling BREAST AUGMENTATION WITH IMPLANT 11/2007 Breast augmentation CARDIAC MONITORING CONTINUOUS 05/25/2018 96 hours monitoring: sinus rhythm, sinus tachycardia; patient event activations and/or reported symptoms correlated with sinus rhythm and sinus tachycardia DELIVERY ONLY 85, 88,92 , low cervical X3 COLONOSCOPY 06/2021 EGD 2019 LIGATION OF HEMORRHOID(S) 10/07/2020 IUD INSERTION ([facility])_*FL 08/30/2007 Mirena - removed LAPAROSCOPY SURG CHOLECYSTECTOMY 11/16/2017 [facility] OOPHORECTOMY, PART/TOTAL UNILAT/BILAT 2016 PAST SURGICAL HISTORY OF 09/2021 C4-C6 disc replacement S PK LAVH [id number] 2013 lavh RICKY biltareal salpingectomy SVT ABLATION W/ EP COMPLETE 11/24/2016 [facility], Dr. Mcknight; right midseptal AP unable to be ablated despite cryoablation and RF ablation attempts; AP described as not having capability for extremely rapid antegrade conduction SVT ABLATION W/ EP COMPLETE 03/28/2018 left posteroseptal AP just within the proximal CS; Stereotaxis RF with Carto guidance, successful elimination of AP conduction; no SVT inducible pre- or post-ablation; CCAG Dr. Luong TONSILLECTOMY & ADENOIDECTOMY <AGE 13 1969 VAGINAL HYSTERECTOMY Ipratropium [place] (ATROVENT) 21 mcg (0.03 %) nasal spray INHALE 2 SPRAYS IN EACH NOSTRIL 3 TIMES A DAY traMADol (ULTRAM) 50 mg tablet Take 1 tablet by mouth every 12 hours for 30 days. acetaminophen-codeine (TYLENOL-COD #2) 300-15 mg per tablet TAKE 1/2 TO 1 TABLET BY MOUTH 2 TIMES ADAY REFRESH OPTIVE ADVANCED 0.5-1-0.5 % drop INSTILL 1 DROP IN EACH EYE 4 TIMES A DAY NEEDED IMVEXXY MAINTENANCE PACK 10 mcg inst INSERT 1 TABLET VAGINALLY 2 TIMES A WEEK levalbuterol (XOPENEX) 1.25 mg/3 mL nebulizer solution Inhale 1 ampule via nebulizer 4x daily as needed. azelastine 0.1% nasal spray Use 2 Sprays in each nostril two times a day. Nebulizer and Compressor For Neb (PORTABLE NEBULIZER SYSTEM) 1 Each every 4 hours as needed. gabapentin (NEURONTIN) 100 mg capsule Take 2 capsules by mouth daily at bedtime. (Patient taking differently: Take 100 mg by mouth daily at bedtime.) ipratropium bromide (ATROVENT) 42 mcg (0.06 %) nasal spray Use 2 Sprays in the nose three times a day. rimegepant (NURTEC ODT) 75 mg disintegrating tablet dissolve 1 tablet orally AT ONSET OF MIGRAINE and may repeat ONCE PER 24 HOURS IF NEEDED magnesium oxide (MAG-OX) 400 mg (241.3 mg magnesium) tablet Take 1 tablet by mouth once daily. traZODone (DESYREL) 50 mg tablet TAKE 1 AND 1/2 TABLETS BY MOUTH EVERY NIGHT AT BEDTIME [id number] (REFRESH OPTIVE ADVANCED, PF,) 0.5-1-0.5 % dpet Use 1 Drop in eyes fourtimes a day as needed. pantoprazole DR (PROTONIX) 40 mg tablet Take 1 tablet by mouth two times a day. levalbuterol tartrate HFA 45 mcg/actuation inhaler Inhale 1-2 Puffs as instructed every 4 hours as needed for wheezing/shortness of breath. fexofenadine (LAURA ALLERGY) 180 mg tablet Take 1 tablet by mouth once daily. tiZANidine (ZANAFLEX) 4 mg tablet Take 1 tablet by mouth every 8 hours as needed. prn cephALEXin (KEFLEX) 250 mg capsule Take 250 mg by mouth once daily as needed (after intercourse). montelukast (SINGULAIR) 10 mg tablet metoprolol succinate ER (TOPROL XL) 50 mg 24 hr tablet Take 1 tablet by mouth once daily. (Patient taking differently: Take 25 mg by mouth daily at bedtime.) ondansetron (ZOFRAN) 4 mg tablet take 1 tablet by mouth every 8 hours if needed for nausea and vomiting ARNUITY ELLIPTA 200 mcg/actuation inhaler inhale 1 puff by mouth daily dicyclomine (BENTYL) 10 mg capsule Take 1 capsule by mouth three times daily. phenazopyridine (PYRIDIUM, GERIDIUM) 200 mg tablet Take 200 mg by mouth three times a day as neededfor pain. prn estradiol (NOBLE, VIVELLE-DOT) 0.025 mg/24 hr 1 Patch every Tuesday and Tuesday. Allergies: ALLERGIES Allergen Reactions 2-Octyl Cyanoacryla* Rash Blistering contact reaction Citalopram Other: See Comments Did not tolerate, ? Mental status changes Liquid Bandage [Enb* Rash blisters and rash Propranolol Mental Status Change Tetracycline GI Upset Abdominal pain/cramping REVIEW OF SYSTEMS: CONSTITUTIONAL: Denies fever and weight loss. CARDIAC: Denies chest pain or edema. RESPIRATORY: Denies dyspnea, cough or wheeze. GASTROINTESTINAL: Denies abdominal pain, nausea, vomiting. MUSCULOSKELETAL: See HPI. SKIN: Denies any recent rash or lesion. NEUROLOGICAL: Denies numbness or focal weakness. ENDOCRINE: Denies current diagnosis of diabetes. HEMATOLOGY: Denies episodes of easy bleeding. Allergies, medications, past surgical history and past medical history were reviewed per this encounter. Physical Examination: Region: Hip General Appearance: Appears healthy, well-nourished, no deformities. Neck/Spine/Station/Gait: Normal Left Hip: Negative Trendelenburg sign Visualized skin healthy and intact No tenderness to palpation over lumbar spine Tenderness over greater trochanter No tenderness to palpation over the anterior hip. Full forward flexion (pain with end ROM) Hip IR WNL (pain with end ROM) Hip ER WNL No weakness with resisted hip flexion, abduction or adduction Positive flexion/adduction/internal rotation Negative flexion/abduction/external rotation test Negative straight leg raise Neurovascular exam normal distally Right Hip: Negative Trendelenburg sign Skin healthy and intact No tenderness to palpation over lumbar spine Tenderness over greater trochanter Full forward flexion Hip IR WNL (pain with end ROM) Hip ER WNL No weakness with resisted hip flexion, abduction or adduction Positive flexion/adduction/internal rotation Negative flexion/abduction/external rotation test Negative straight leg raise Neurovascular exam normal distally Images have been personally reviewed by me and discussed with patient. Last XR Hip/Pelvis - Impression Only XR HIP GENERAL 3V PELV/AP/LAT LEFT Exam End: 06/25/2024 1:12 PM (Final result) Impression: IMPRESSION: No acute osseous abnormality. ... Assessment and Plan: (M25.552) Pain of left hip (primary encounter diagnosis) Plan: MRI HIP WO IVCON LEFT, CONSULT TO PHYSICAL THERAPY, diclofenac, EC, (VOLTAREN) 75 mg EC tablet, CANCELED: CONSULT TO PHYSICAL THERAPY (S73.752A) Acetabular labrum tear, right, initial encounter Plan: CONSULT TO PHYSICAL THERAPY, PROCEDURE REQUEST - MAHNAZ ULTRASOUND-GUIDED INJECTION, diclofenac, EC, (VOLTAREN) 75 mg EC tablet Clinical picture c/w chronic left hip pain. On examination today, this does appear to be mostly centrally oriented in the hip joint. However, we did review that she does have some lateral based pain that may be extra-articular nature. She did, she had similar presentation on the contralateral side that failed to respond to conservative treatment. MRI ordered for comprehensive evaluation of labraltear, indicated for possible surgical planning and expectation management. Judicious use of anti-inflammatories, a prescription for diclofenac was provided after discussion of safe use and precautions. A new order for physical therapy was placed for lower extremity flexibility and strengthening, core and lumbar stabilization. Follow-up 2 to 3 days after MRI to review results and next steps. The patient has symptomatic right hip pain, recurrent after imaging guided IA CSI of the hip. She has known labral tear on this side and would like to put off surgical intervention for the short term. Therefore, through the process of shared decision making, a new order was placed for the patient. Will have her return to pervious provider. Rosa Goff PA-C Sports Medicine/Orthopaedic Surgery documented in this encounterC[facility] History of Present illness Narrative* Gabriela Chang RT(R) - 06/25/2024 1:15 PM EDT Radiology Service Progress Note PATIENT NAME: Marcial Yeung DATE OF SERVICE: June 25, 2024 TIME: 1:09 PM PATIENT IDENTITY VERIFICATION COMPLETED USING TWO (2) IDENTIFIERS: Name and Date of confirmedby patient verbally. FALL SCREENING: Has the patient had 2 falls in the last year or 1 fall with injury or currently using an Ambulatory Assistive Device (Walker, Cane, Wheelchair, Crutches, etc.)? No PATIENT GENDER DATA: Female. status: : No status: NO. PATIENT RELEVANT IMPLANT DATA REVIEWED: Not Applicable PATIENT PRESENTS WITH AN IMPLANTABLE OR ATTACHED TRUCK AND TRANSPORT MECHANIC: No RADIOLOGY DEPARTMENT: General X-ray: Exam(s) Completed: Pelvis X-Ray: Pelvis with Hip Left PERIPHERAL IV DATA: Not applicable SIGNED BY: RT Sandi(Halie) June 25, 2024 1:09 PM documented in this encounterC[facility]08-30-2024 Telephone encounter Note * Telephone Encounter - Jada Rodriguez APRN.CNP - 06/01/2024 4:53 PM EDT Patient's request for medication is as follows: Requested Prescriptions Signed Prescriptions Disp Refills traMADol (ULTRAM) 50 mg tablet 60 tablet 0 Sig: Take 1 tablet by mouth every 12 hours for 30 days. Authorizing Provider: JADA RODRIGUEZ Prescription(s) as above. Please process accordingly. PDMP website checked and validated. All prescriptions have been APPROPRIATELY filled. No suspiciousactivity was identified. 06/01/2024 by Jada Rodriguez APRN.CNP [facility]08-30-[facility]24 Miscellaneous Notes* Telephone Encounter - Jada Rodriguez APRN.CNP - 06/01/2024 4:53 PM EDT Patient's request for medication is as follows: Requested Prescriptions Signed Prescriptions Disp Refills traMADol (ULTRAM) 50 mg tablet 60 tablet 0 Sig: Take 1 tablet by mouth every 12 hours for 30 days. Authorizing Provider: JADA RODRIGUEZ Prescription(s) as above. Please process accordingly. PDMP website checked and validated. All prescriptions have been APPROPRIATELY filled. No suspiciousactivity was identified. 06/01/2024 by Jada Rodriguez APRN.ASBESTOS MICROSCOPIST * Telephone Encounter - Rebecca Servin MA - 06/01/2024 4:01 PM EDT 06/12/24 KEYANNA 11/29/23 Patient electronically sent a request for the following prescription(s) Requested Prescriptions Pending Prescriptions Disp Refills traMADol (ULTRAM) 50 mg tablet 60 tablet 0 Sig: Take 1 tablet by mouth every 12 hours for 30 days. Patient aware RX will be sent to pharmacy. No need to notify patient. Please review. Rebecca Servin MA documented in this encounterC[facility]08-[facility]-2024 Telephone encounter Note * Telephone Encounter - Rebecca Servin MA - 06/01/2024 4:01 PM EDT 06/12/24 KEYANNA 11/29/23 Patient electronically sent a request for the following prescription(s) Requested Prescriptions Pending Prescriptions Disp Refills traMADol (ULTRAM) 50 mg tablet 60 tablet 0 Sig: Take 1 tablet by mouth every 12 hours for 30 days. Patient aware RX will be sent to pharmacy. No need to notify patient. Please review. Rebecca Servin MA [facility]08-[facility] Nurse Note* Niurka Harding MA - 05/25/2024 1:21 PM EDT Patient has no cardiac complaints today. Niurka Harding CMA [facility]08-[facility] Nurse Note* Niurka Harding MA - 05/25/2024 1:21 PM EDT Patient has no cardiac complaints today. Niurka Harding PRESSURE STEAMER TENDER documented in this encounterCleveland [facility]08-23-2024 History of Present illness Narrative* Albina Luong MD - 05/25/2024 1:20 PM EDT PRIMARY CARE PHYSICIAN: James Harry [address] [place] [address] Patient Care Team: James Harry DO as PCP - General (Family Medicine) Albina Luong MD as Specialty Hardwood Floor Finisher (Cardiology) Lamont Michel DO as Specialty Hardwood Floor Finisher (Neurology) Jose Angel Coker DO as Specialty Hardwood Floor Finisher (Gastroenterology) Albina Anton V as Specialty Hardwood Floor Finisher (Internal Medicine) CHIEF COMPLAINT: Follow up for arrhythmia HISTORY OF PRESENT ILLNESS: Ms. Yeung is a 58 year old female who presents today for a cardiovascular medicine follow-up visit. History copied from previous notes, edited as needed: Summary of previous notes: Ms. Soto has history of arrhythmia since a very young age, possibly age 8 or 9 years. She recalls experiencing palpitation, "fluttering" in the chest, and racing heartbeats. 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 She never experienced syncope. A few years ago she took a medication for a cold, and this medication included a decongestant. She experienced severe palpitations and racing heartbeats. She was evaluated by her primary care physician, an EKG revealed WPW pattern. At some point she was referred to Dr. Mcknight at the [facility]. Her brother has WPW syndrome and was [...] began experiencing recurrence of the palpitations. She believes the triggers for the symptoms include stress, anxiety and also physical activities such as working out. Ms. Soto underwent EP study with successful catheter ablation of a left posteroseptal sensory pathway in March 2018. She has not been known to have recurrence of that particular type of SVT. However, she has experienced recurrent palpitations and excessively rapid heart rates. Cardiac monitoring revealed sinus tachycardia, less likely atrial tachycardia. This was found by cardiac monitoring in 2017 and also be repeat cardiac monitoring in late 2022. No SVT documented, just sinus tachycardia, so there is concern about possible inappropriatesinus tachycardia or perhaps a school bus driver of the sinus tachycardia such as anxiety. She has experiencedimprovement with treatment with a beta-vernon. She thinks the metoprolol has been helping to some degree, she has worsening symptoms if she misses doses of the metoprolol. Interim History Dr. Luong 05/25/2024: Ms. Yeung presents for follow up evaluation for arrhythmia. Doing better from standpoint of heart rhythm. Changed cleaning products and has been better from multiple medical standpoints. 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 Much less palpitations. She has not needed 50 mg of metoprolol, she takes 25 mg at bedtime. 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 Walks occasionally. She is starting to do her exercises again, and plans to start up yoga. I have confirmed and edited as necessary, the PFSH and ROS obtained by others. PAST MEDICAL HISTORY No date: Allergic rhinitis due to other allergen 08/30/2007: Encounter for insertion or removal of intrauterine contraceptive device Comment: Mirena, removed March 10 No date: Family hx colonic polyps No date: Family hx of colon cancer No date: GERD (gastroesophageal reflux disease) No date: History of radiofrequency ablation procedure for cardiac arrhythmia Comment: 11/2016, 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 No date: 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 Comment: flecainide; indication: symptomatic PSVT with WPW syndrome No date: Other anxiety states No date: Palpitations No date: Paroxysmal supraventricular tachycardia (HCC) Comment: see "WPW Syndrome" 06/11/2015: Primary insomnia 10/20/2023: Sinus tachycardia No date: Stress incontinence, female No date: Unspecified asthma(493.90) No date: WPW (Dogte-Brzfuqthg-Jatyj syndrome) Comment: associated with symptomatic SVT; attempt at catheter ablation 11/2016 failed; she continues to experience intermittent palpitations and tachycardia despite treatment with flecainide; successful RFCA 03/2018 PAST SURGICAL HISTORY 11/2015: BLADDER SURGERY HX Comment: bladder sling 11/2007: BREAST AUGMENTATION WITH IMPLANT Comment: Breast augmentation 05/25/2018: CARDIAC MONITORING CONTINUOUS Comment: 96 hours monitoring: sinus rhythm, sinus tachycardia; patient event activations and/or reported symptoms correlated with sinus rhythm and sinus tachycardia 85, 88,92: DELIVERY ONLY Comment: , low cervical X3 06/2021: COLONOSCOPY 2020: EGD 10/07/2020: F LIGATION OF HEMORRHOID(S) Comment: 08/30/2007: IUD INSERTION ([facility])_*[place] Comment: Mirena - removed 11/16/2017: LAPAROSCOPY SURG CHOLECYSTECTOMY Comment: [facility] 2017: OOPHORECTOMY, PART/TOTAL UNILAT/BILAT 09/2021: PAST SURGICAL HISTORY OF Comment: C4-C6 disc replacement 2014: S PK LAVH [id number] Comment: baljinder GARCÍA biltareal salpingectomy 11/24/2016: SVT ABLATION W/ EP COMPLETE Comment: [facility], Dr. Mcknight; right midseptal AP unable to be ablated despite cryoablation and RF ablation attempts; AP described as not having capability for extremely rapid antegrade conduction 03/28/2018: SVT ABLATION W/ EP COMPLETE Comment: left posteroseptal AP just within the proximal CS; Stereotaxis RF with Carto guidance, successful elimination of AP conduction; no SVT inducible pre- or post-ablation; CCAG Dr. Luong 1968: TONSILLECTOMY & ADENOIDECTOMY <AGE 13 No date: VAGINAL HYSTERECTOMY SOCIAL HISTORY Social History Tobacco Use Smoking status: Never Smokeless tobacco: Never Vaping Use Vaping status: Never Used Substance Use Topics Alcohol use: Yes Comment: occasionally Drug use: No FAMILY HISTORY Problem Relation Age of Onset Thyroid Mother goiter other (Palpitations) Mother Asthma Father Asthma Son other (Palpitations) Son Thyroid Maternal Grandmother goiter other (Other) Maternal Grandfather young in MVA Emphysema Paternal Grandmother Heart Failure Paternal Grandmother other (tobacco use) Paternal Grandmother Heart disease Paternal Grandfather had a heart attack and at young age Stroke Paternal Grandfather Prostate Cancer Paternal Grandfather Asthma Daughter other (Brain tumor) Daughter benign Seizures Brother Heart Brother WPW syndrome; ablation unsuccessful -- too close to AV node other (Other) Other no unexplained sudden , crib deaths, unexplained syncope ALLERGIES: ALLERGIES Allergen Reactions 2-Octyl Cyanoacryla* Rash Blistering contact reaction Citalopram Other: See Comments Did not tolerate, ? Mental status changes Liquid Bandage [Enb* Rash blisters and rash Propranolol Mental Status Change Tetracycline GI Upset Abdominal pain/cramping MEDICATIONS: acetaminophen-codeine (TYLENOL-COD #2) 300-15 mg per tablet TAKE 1/2 TO 1 TABLET BY MOUTH 2 TIMES ADAY REFRESH OPTIVE ADVANCED 0.5-1-0.5 % drop INSTILL 1 DROP IN EACH EYE 4 TIMES A DAY NEEDED IMVEXXY MAINTENANCE PACK 10 mcg inst INSERT 1 TABLET VAGINALLY 2 TIMES A WEEK Ipratropium [place] (ATROVENT) 21 mcg (0.03 %) nasal spray INHALE 2 SPRAYS IN EACH NOSTRIL 3 TIMES A DAY levalbuterol (XOPENEX) 1.25 mg/3 mL nebulizer solution Inhale 1 ampule via nebulizer 4x daily as needed. azelastine 0.1% nasal spray Use 2 Sprays in each nostril two times a day. Nebulizer and Compressor For Neb (PORTABLE NEBULIZER SYSTEM) 1 Each every 4 hours as needed. gabapentin (NEURONTIN) 100 mg capsule Take 2 capsules by mouth daily at bedtime. (Patient taking differently: Take 100 mg by mouth daily at bedtime.) ipratropium bromide (ATROVENT) 42 mcg (0.06 %) nasal spray Use 2 Sprays in the nose three times a day. traMADol (ULTRAM) 50 mg tablet Take 1 tablet by mouth every 12 hours for 30 days. rimegepant (NURTEC ODT) 75 mg disintegrating tablet dissolve 1 tablet orally AT ONSET OF MIGRAINE and may repeat ONCE PER 24 HOURS IF NEEDED magnesium oxide (MAG-OX) 400 mg (241.3 mg magnesium) tablet Take 1 tablet by mouth once daily. traZODone (DESYREL) 50 mg tablet TAKE 1 AND 1/2 TABLETS BY MOUTH EVERY NIGHT AT BEDTIME [id number] (REFRESH OPTIVE ADVANCED, PF,) 0.5-1-0.5 % dpet Use 1 Drop in eyes fourtimes a day as needed. pantoprazole DR (PROTONIX) 40 mg tablet Take 1 tablet by mouth two times a day. levalbuterol tartrate HFA 45 mcg/actuation inhaler Inhale 1-2 Puffs as instructed every 4 hours as needed for wheezing/shortness of breath. fexofenadine (LAURA ALLERGY) 180 mg tablet Take 1 tablet by mouth once daily. tiZANidine (ZANAFLEX) 4 mg tablet Take 1 tablet by mouth every 8 hours as needed. prn cephALEXin (KEFLEX) 250 mg capsule Take 250 mg by mouth once daily as needed (after intercourse). montelukast (SINGULAIR) 10 mg tablet metoprolol succinate ER (TOPROL XL) 50 mg 24 hr tablet Take 1 tablet by mouth once daily. ondansetron (ZOFRAN) 4 mg tablet take 1 tablet by mouth every 8 hours if needed for nausea and vomiting ARNUITY ELLIPTA 200 mcg/actuation inhaler inhale 1 puff by mouth daily dicyclomine (BENTYL) 10 mg capsule Take 1 capsule by mouth three times daily. phenazopyridine (PYRIDIUM, GERIDIUM) 200 mg tablet Take 200 mg by mouth three times a day as neededfor pain. prn estradiol (NOBLE, VIVELLE-DOT) 0.025 mg/24 hr 1 Patch every Tuesday and Tuesday. Review of Systems Constitutional: Negative for chills, fever and malaise/fatigue. Respiratory: Negative for cough, hemoptysis, sputum production and shortness of breath. Cardiovascular: Positive for palpitations. Negative for chest pain, orthopnea, claudication, leg swelling and PND. Gastrointestinal: Negative for abdominal pain, nausea and vomiting. Musculoskeletal: Negative for falls. Skin: Negative for rash. Neurological: Negative for dizziness, focal weakness, seizures and loss of consciousness. PHYSICAL EXAMINATION: BP 129/85 Pulse 79 Resp 16 Ht 5' 2" (1.58m) Wt 143 lb (64.9kg) SpO2 100% LMP 05/06/2014 BMI 26.15 kg/(m^2). Physical Exam Vitals reviewed. Constitutional: General: She is not in acute distress. Appearance: Normal appearance. HENT: Head: Normocephalic and atraumatic. Cardiovascular: Rate and Rhythm: Regular rhythm. Heart sounds: Normal heart sounds, S1 normal and S2 normal. No murmur heard. No friction rub. Pulmonary: Effort: Pulmonary effort is normal. No respiratory distress. Breath sounds: Normal breath sounds. No wheezing, rhonchi or rales. Musculoskeletal: Cervical back: Neck supple. Right lower leg: No edema. Left lower leg: No edema. Skin: General: Skin is warm and dry. Neurological: General: No focal deficit present. Mental Status: She is alert and oriented to person, place, and time. Psychiatric: Mood and Affect: Mood normal. Behavior: Behavior normal. Thought Content: Thought content normal. CARDIOVASCULAR MEDICINE TESTING: Electrocardiogram: Sinus rhythm 72 bpm; normal conduction intervals (KY 134 ms, QRS 88 ms); QTc 459ms I have personally reviewed the Electrocardiogram. I spent a total of 30 minutes on the date of the service which included preparing to see the patient, [id number] patient care, completing clinical documentation, obtaining and/or reviewing separately obtained history, performing a medically appropriate examination, counseling and educating the pat ient/family/caregiver, ordering medications, tests, or procedures, communicating with other HCPs (not separately reported), independently interpreting results (not separately reported), communicatingresults to the patient/family/caregiver, and care coordination (not separately reported). 1. Paroxysmal supraventricular tachycardia (HCC) - ICD9: 427.0, ICD10: I47.10 (primary diagnosis) 2. WPW (Wpoos-Cedvjzhgt-Zdvbm syndrome) - ICD9: 426.7, ICD10: I45.6 3. Status post ablation of accessory bypass tract - ICD9: V45.89, ICD10: Z98.890 4. Sinus tachycardia - ICD9: 427.89, ICD10: R00.0 5. PVC (premature ventricular contraction) - ICD9: 427.69, ICD10: I49.3 6. Palpitations - ICD9: 785.1, ICD10: R00.2 IMPRESSION: Ms. Yeung seems to be stable, doing well with regards to arrhythmia. She is due for echocardiogram, has not had one in several years. PLAN AND RECOMMENDATIONS: Continue with current plan of care from EP standpoint. Echocardiogram ordered, will follow up on results. Return in about 6 months (around 11/25/2024). Albina Luong MD 05/25/2024 Medical Decision Making: Problems: Moderate: 2+ stable chronic illnesses Data: Unique source(s) for external note(s) reviewed: 1 Unique test result(s) reviewed: 2 Unique test(s) ordered: 2 Risk: Moderate: Moderate risk from testing/treatment, Drug management and Decision on minor surgery w/ risk factors Medical Decision Making Level: 4 - Moderate documented in [facility] History of Present illness Narrative* Norman Madrid RN - 05/09/2024 10:13 AM EDT Nonallergic rhinitis information reveiwed and given to the pt. Pt verbalized understanding of info given. Norman Madrid RN * Deven Logan MD - 05/09/2024 9:42 AM EDT Images from the original note were not included. Allergy & Immunology Established Visit PATIENT NAME: Marcial Yeung SERVICE DATE: 05/09/2024 HPI: Marcial Yeung is a 58 year old female who presents for follow-up of vasomotor rhinitis, sinus pressure, headaches, asthma. Patient notes persistence of triggering of throat clearing and sinus pressure particularly related to weather changes. She has noted significant improvement with the addition of ipratropium 0.06% but has not had to use this 3+ times per day. She has not tried azelastine in the past I discussed that this may augment the effects of the ipratropium and dampen the effects of weather changes on triggering sinus pressure. She also notes that after seeing Dr. Murrell had started back on gabapentin 100 mg once daily at bedtime and felt this helped improve throat irritation. She is on a complex regimen of medications for headache management I discussed that this should be closely coordinated with her neurologist to avoid potential side effects. She was interested in increasing the dose but had some concerns about sedation and that several of her other drugs she takes to cause sedation as well. . 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 Comment: flecainide; indication: symptomatic PSVT with WPW syndrome No date: Other anxiety states No date: Palpitations No date: Paroxysmal supraventricular tachycardia (HCC) Comment: see "WPW Syndrome" 06/11/2015: Primary insomnia 10/20/2023: Sinus tachycardia No date: Stress incontinence, female No date: Unspecified asthma(493.90) No date: WPW (Evkgy-Sqypkaurl-Dkeni syndrome) Comment: associated with symptomatic SVT; attempt at catheter ablation 11/2016 failed; she continues to experience intermittent palpitations and tachycardia despite treatment with flecainide; successful RFCA 03/2018 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 (Bilkk-Pcbiaiqgz-Rojxt Syndrome) Gastro-Esophageal Reflux Disease Without Esophagitis Chronic Sinusitis, Unspecified Benign Neoplasm of Unspecified Ovary Asymptomatic Menopausal State Anxiety Disorder, Unspecified Acquired Absence of Both Cervix and Uterus Paroxysmal Supraventricular Tachycardia (Hcc) Palpitations Status Post Ablation of Accessory Bypass Tract Dyspareunia Chronic Mixed Headache Syndrome Chronic Migraine Without Aura, With Intractable Migraine, So Stated, With Status Migrainosus Intractable Chronic Migraine Without Aura and Without Status Migrainosus Chronic Daily Headache Musculoskeletal Pain Cervicalgia Chronic Tension-Type Headache, Intractable Reflux Esophagitis Intractable Chronic Migraine Without Aura and With Status Migrainosus Internal Hemorrhoids Migraine Without Aura and Without Status Migrainosus, Not Intractable Bilateral Occipital Neuralgia History of Fusion of Cervical Spine Irritable Bowel Syndrome With Diarrhea Sinus Tachycardia Chronic Migraine Without Aura, Intractable, Without Status Migrainosus Mild Persistent Asthma Without Complication Allergic Conjunctivitis, Bilateral Chronic Rhinitis Pvc (Premature Ventricular Contraction) Vasomotor Rhinitis 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[place]) Allergic Contact Dermatitis Due to Adhesives PAST SURGICAL HISTORY 11/2015: BLADDER SURGERY HX Comment: bladder sling 11/2007: BREAST AUGMENTATION WITH IMPLANT Comment: Breast augmentation 05/25/2018: CARDIAC MONITORING CONTINUOUS Comment: 96 hours monitoring: sinus rhythm, sinus tachycardia; patient event activations and/or reported symptoms correlated with sinus rhythm and sinus tachycardia 85, 88,92: DELIVERY ONLY Comment: , low cervical X3 06/2021: COLONOSCOPY 2020: EGD 10/07/2020: F LIGATION OF HEMORRHOID(S) Comment: 08/30/2007: IUD INSERTION ([facility] Comment: Mirena - removed 11/16/2017: LAPAROSCOPY SURG CHOLECYSTECTOMY Comment: [facility] 2017: OOPHORECTOMY, PART/TOTAL UNILAT/BILAT 09/2021: PAST SURGICAL HISTORY OF Comment: C4-C6 disc replacement 2014: S PK LAVH [id number] Comment: baljinder GARCÍA biltareal salpingectomy 11/24/2016: SVT ABLATION W/ EP COMPLETE Comment: [facility], Dr. Mcknight; right midseptal AP unable to be ablated despite cryoablation and RF ablation attempts; AP described as not having capability for extremely rapid antegrade conduction 03/28/2018: SVT ABLATION W/ EP COMPLETE Comment: left posteroseptal AP just within the proximal CS; Stereotaxis RF with Carto guidance, successful elimination of AP conduction; no SVT inducible pre- or post-ablation; [facility] Dr. Luong 1969: TONSILLECTOMY & ADENOIDECTOMY <AGE 13 No date: VAGINAL HYSTERECTOMY Social History Tobacco Use Smoking status: Never Smokeless tobacco: Never Vaping Use Vaping Use: Never used Substance Use Topics Alcohol use: Yes Comment: occasionally Drug use: No CURRENT OUTPATIENT MEDICATIONS: Current Outpatient Medications Medication Sig Dispense Refill levalbuterol (XOPENEX) 1.25 mg/3 mL nebulizer solution Inhale 1 ampule via nebulizer 4x daily as needed. traMADol (ULTRAM) 50 mg tablet Take 1 tablet by mouth every 12 hours for 30 days. 60 tablet 0 gabapentin (NEURONTIN) 100 mg capsule Take 1 capsule by mouth two times a day for 30 days. 60 capsule 0 rimegepant (NURTEC ODT) 75 mg disintegrating tablet dissolve 1 tablet orally AT ONSET OF MIGRAINE and may repeat ONCE PER 24 HOURS IF NEEDED 8 tablet 11 magnesium oxide (MAG-OX) 400 mg (241.3 mg magnesium) tablet Take 1 tablet by mouth once daily. 90 tablet 3 traZODone (DESYREL) 50 mg tablet TAKE 1 AND 1/2 TABLETS BY MOUTH EVERY NIGHT AT BEDTIME 135 tablet 3 wqpgpnixawycq-[id number]-PF (REFRESH OPTIVE ADVANCED, PF,) 0.5-1-0.5 % dpet Use 1 Drop in eyes fourtimes a day as needed. [address] (PROTONIX) 40 mg tablet Take 1 tablet by mouth two times a day. 180 tablet 3 ipratropium bromide (ATROVENT) 42 mcg (0.06 %) nasal spray Use 2 Sprays in the nose three times a day. 45 mL 3 Ipratropium [place] (ATROVENT) 21 mcg (0.03 %) nasal spray Use 2 Sprays in the nose three times a day. 30 mL 5 levalbuterol tartrate HFA 45 mcg/actuation inhaler Inhale 1-2 Puffs as instructed every 4 hours as needed for wheezing/shortness of breath. 45 g 3 fexofenadine (LAURA ALLERGY) 180 mg tablet Take 1 tablet by mouth once daily. 90 tablet 3 tiZANidine (ZANAFLEX) 4 mg tablet Take 1 tablet by mouth every 8 hours as needed. prn 30 tablet 11 cephALEXin (KEFLEX) 250 mg capsule Take 250 mg by mouth once daily as needed (after intercourse). montelukast (SINGULAIR) 10 mg tablet metoprolol succinate ER (TOPROL XL) 50 mg 24 hr tablet Take 1 tablet by mouth once daily. 90 tablet2 ondansetron (ZOFRAN) 4 mg tablet take 1 tablet by mouth every 8 hours if needed for nausea and vomiting 30 tablet 1 ARNUITY ELLIPTA 200 mcg/actuation inhaler inhale 1 puff by mouth daily dicyclomine (BENTYL) 10 mg capsule Take 1 capsule by mouth three times daily. 90 capsule 2 phenazopyridine (PYRIDIUM, GERIDIUM) 200 mg tablet Take 200 mg by mouth three times a day as neededfor pain. prn estradiol (NOBLE, VIVELLE-DOT) 0.025 mg/24 hr 1 Patch every Tuesday and Tuesday. albuterol HFA (PROVENTIL HFA, VENTOLIN HFA) 90 mcg/actuation inhaler Inhale 2 Puffs as instructed every 4 hours as needed. (Patient not taking: Reported on 05/09/2024) 1 Each 1 cholestyramine (QUESTRAN) 4 gram packet take 1 packet ( 4 grams ) by mouth twice a day dissolve in 2 to 6 ounces OF WATER OR NONCARBONATED BEVERAGE with meals (Patient not taking: Reported on 01/24/2024) 60 Packet 5 No current facility-administered medications for this visit. ALLERGIES: ALLERGIES Allergen Reactions 2-Octyl Cyanoacryla* Rash Blistering contact reaction Citalopram Other: See Comments Did not tolerate, ? Mental status changes Liquid Bandage [Enb* Rash blisters and rash Propranolol Mental Status Change Tetracycline GI Upset Abdominal pain/cramping REVIEW OF SYSTEMS: HEENT: sinus trouble and hoarseness RESPIRATORY: cough and sputum CONSTITUTIONALl: No acute distress. No weight loss or gain, no fevers or chills CARDIOVASCULAR: negative for chest pain, leg swelling or palpitations. GASTROINTESTINAL: Negative for abdominal discomfort, No blood in stools or black stools MUSCULOSKELETAL: negative for joint pain or swelling, back pain or muscle pain. NEUROLOGIC:Negative for focal numbness or weakness, headaches and dizziness or syncope. DERM/SKIN: no new rashes, hives, or skin eruptions. PSYCHIATRIC: Negative for sleep disturbance, mood disorder and recent psychosocial stressors HEMATOLOGIC/LYMPHATIC/IMMUNOLOGIC:Negative for cold or heat intolerance, polyuria, polydipsia and goiter. PHYSICAL EXAM: BP 139/91 Pulse 88 Temp (Src) 97.8 (Temporal Artery) Resp 16 Ht 5' 2" (1.58m) Wt 145 lb (65.8kg) SpO2 98% LMP 05/06/2014 BMI 26.51 kg/(m^2). General appearance: Well appearing, alert, in no acute distress, well-hydrated, well nourished. HENT: External ears normal, canals clear, TM's normal Eyes: no scleral icterus, PERRLA, EOMS, no conjunctivitis Nose/Sinuses: Positive findings: mucosa erythematous and swollen, clear rhinorrhea Oropharynx: Lips, mucosa, and tongue normal, teeth and gums normal, oropharynx normal [place] Classification:Class II Respiratory: Lungs clear to auscultation. No wheezing, rhonchi, rales Cardiovascular: RRR without murmur, gallop, or rubs. No ectopy Gastroenterology: normal appearing abdomen on inspection Musculoskeletal: No joint pain, muscle weakness, or impaired gait Integumentary: Negative for lesions, rash, and itching. Psychiatric: Alert and oriented x 3. No mood disorders noted, calm affect. DATA: Diagnostic tests reviewed for today's visit were personally reviewed by me: Most recent labs and imaging results. SPIROMETRY - BASELINE AND POST DILATOR ([id number]) - ordered on 06/10/23 No textual results for order. 11/20/2023 05/06/2024 ASTHMA CONTROL TEST (2007 - ) Keep from getting things done 5 None of the time 5 None of the time Shortness of breath 1 More than once a day 4 Once or twice a week Symptoms wake up at night or early in morning 2 2 or 3 nights a week 2 2 or 3 nights a week How often have you used inhaler/nebulizer 5 Not at all 3 2 or 3 times per week Rate your asthma control over past 4 weeks 3 Somewhat controlled 4 Well controlled Asthma Control Test Score 16 18 No question data found. Glucose (mg/dL) Date Value 11/23/2023 75 04/02/2018 116 Potassium Date Value 11/23/2023 4.3 mmol/L 04/02/2018 4.2 mEq/L Sodium Date Value 11/23/2023 141 mmol/L 04/02/2018 142 mEq/L Chloride Date Value 11/23/2023 103 mmol/L 04/02/2018 107 mEq/L CO2 Date Value 11/23/2023 24 mmol/L 04/02/2018 28 mEq/L Creatinine (mg/dL) Date Value 11/23/2023 0.75 04/02/2018 0.92 BUN (mg/dL) Date Value 11/23/2023 15 04/02/2018 11 Anion Gap Date Value 11/23/2023 14 mmol/L 04/02/2018 11 Calcium (mg/dL) Date Value 04/02/2018 8.9 Calcium, Total (mg/dL) Date Value 11/23/2023 10.1 Protein, Total (g/dL) Date Value 11/23/2023 7.7 11/09/2017 7.5 Albumin (g/dL) Date Value 11/23/2023 4.9 11/09/2017 4.8 Bilirubin, Total (mg/dL) Date Value 11/23/2023 0.3 11/09/2017 0.2 Alkaline Phosphatase (U/L) Date Value 11/23/2023 64 11/09/2017 57 AST (U/L) Date Value 11/23/2023 23 11/09/2017 20 ALT (U/L) Date Value 11/23/2023 21 11/09/2017 16 WBC Date Value Ref Range Status 11/23/2023 9.06 3.70 - 11.00 k/uL Final RBC Date Value Ref Range Status 11/23/2023 4.72 3.90 - 5.20 m/uL Final Hemoglobin Date Value Ref Range Status 11/23/2023 13.8 11.5 - 15.5 g/dL Final Hematocrit Date Value Ref Range Status 11/23/2023 43.8 36.0 - 46.0 % Final MCV Date Value Ref Range Status 11/23/2023 92.8 80.0 - 100.0 fL Final MCH Date Value Ref Range Status 11/23/2023 29.2 26.0 - 34.0 pg Final MCHC Date Value Ref Range Status 11/23/2023 31.5 30.5 - 36.0 g/dL Final RDW-CV Date Value Ref Range Status 11/23/2023 14.3 11.5 - 15.0 % Final Platelet Count Date Value Ref Range Status 11/23/2023 394 150 - 400 k/uL Final MPV Date Value Ref Range Status 11/23/2023 10.6 9.0 - 12.7 fL Final Abs Neut Date Value Ref Range Status 11/23/2023 5.78 1.45 - 7.50 k/uL Final Lymphocytes % Date Value Ref Range Status 11/23/2023 27.8 % Final Abs Lymph Date Value Ref Range Status 11/23/2023 2.52 1.00 - 4.00 k/uL Final Monocytes % Date Value Ref Range Status 11/23/2023 7.3 % Final Abs [place] Date Value Ref Range Status 11/23/2023 0.66 <0.87 k/uL Final Abs Eosin Date Value Ref Range Status 11/23/2023 0.03 <0.46 k/uL Final Basophils % Date Value Ref Range Status 11/23/2023 0.3 % Final Abs Baso Date Value Ref Range Status 11/23/2023 0.03 <0.11 k/uL Final IgE Date Value Ref Range Status 11/23/2023 4.2 <114.0 kU/l Final IgG Date Value Ref Range Status 11/23/2023 876 700 - 1,600 mg/dL Final No follow-ups on file. 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 Continue gabapentin 100 mg at bedtime consider increasing to 2 if no response to azelastine Start on azelastine 2 sprays each nostril twice daily instructed on proper technique Follow-up with neurology as scheduled Send IgE specific serum testing for inhalants as a secondary metrics since she had some concerns about her drug regimen or interfering with the reliability of the skin test. I discussed that she did have a positive response to histamine which should maintain that this is reliable result I spent a total of 45 minutes on the date of the service which included preparing to see the patient, [id number] patient care, completing clinical documentation, performing a medically appropriate examination, counseling and educating the patient/family/caregiver, and ordering medications, tests,or procedures. Deven Logan MD documented in this encounterC[facility]07-29-[facility] Telephone encounter Note * Telephone Encounter - James Harry DO - 04/30/2024 4:05 PM EDT The following approved medication requests have been transmitted electronically. Requested Prescriptions Pending Prescriptions Disp Refills traMADol (ULTRAM) 50 mg tablet [Pharmacy Med Name: TRAMADOL HCL 50 MG TABLET] 60 tablet Sig: take 1 tablet by mouth twice a day if needed James Harry DO [facility]07-[facility] Miscellaneous Notes* Telephone Encounter - James Harry DO - 04/30/2024 4:05 PM EDT The following approved medication requests have been transmitted electronically. Requested Prescriptions Pending Prescriptions Disp Refills traMADol (ULTRAM) 50 mg tablet [Pharmacy Med Name: TRAMADOL HCL 50 MG TABLET] 60 tablet Sig: take 1 tablet by mouth twice a day if needed James Harry DO * Telephone Encounter - Kassie Richards MA - 04/30/2024 9:01 AM EDT Last office visit 11/29/23. Follow up appointment scheduled on 06/12/24. Patient phones requesting refills as follows: Requested Prescriptions Pending Prescriptions Disp Refills traMADol (ULTRAM) 50 mg tablet [Pharmacy Med Name: TRAMADOL HCL 50 MG TABLET] 60 tablet Sig: Take 1 tablet by mouth every 12 hours. Please review and advise. Kassei Richards MA documented in this encounterC[facility]07-29-2024 Telephone encounter Note * Telephone Encounter - Kassie Richards MA - 04/30/2024 9:01 AM EDT Last office visit 11/29/23. Follow up appointment scheduled on 06/12/24. Patient phones requesting refills as follows: Requested Prescriptions Pending Prescriptions Disp Refills traMADol (ULTRAM) 50 mg tablet [Pharmacy Med Name: TRAMADOL HCL 50 MG TABLET] 60 tablet Sig: Take 1 tablet by mouth every 12 hours. Please review and advise. Kassie Richards MA [facility]07-[facility] History of Present illness Narrative* Lamont Michel DO - 04/19/2024 10:42 AM EDT [facility] - [facility] Follow-up Visit ASSESSMENT: 58 year old female with history significant for anxiety, WPW s/p ablation, PSVT, migraine without aura, and chronic intractable migraine without aura without status migrainosus with contributions from mild b/l occipital neuralgia and cervical musculoskeletal factors. PLAN: (Please see typed patient instructions for detailed instructions) ---> Acute Treatment: -Nurtec working well. -Zanaflex prn. ---> Preventive Treatment: -Botox today. ---> Follow-up: for BOTOX, 3 months. Marcial Lai Gamal has been previously approved for an Oral Calcitonin Gene-Related Peptide Receptor Antagonist (GEPANT) Rimegepant for the treatment of abortive use. The patient has demonstrated the following: Provider attests patient has had a positive clinical response: Yes Patient will not use with another Oral Calcitonin Gene-Related Peptide Receptor Antagonist (GEPANT): Yes Patient's quality of life and ability to perform ADLs has improved: Yes The patient has tried and failed the following : We suggest the patient continue treatment with GEPANT Rimegepant. The following preventative medications have been tried for three or more months without benefit: Anti-Convulsant Gabapentin (Neurontin) Topiramate (Topamax, Trokendi XL, Qudexy) Anti-Depressant and Antipsychotic Amitriptyline (Elavil) Bupropion (Wellbutrin) Citalopram (Celexa) Fluoxetine (Prozac) Venlafaxine (Effexor) Blood Pressure Metoprolol (Lopressor,Toprol XL) Propranolol (Inderal) Botulinum Toxin Onabotulinum Toxin A (Botox) Supplements Magnesium The following abortive medications have been tried but require high frequency use which can lead toMedication Overuse Headache: Analgesic Hydrocodone/Acetaminophen (Vicodin, [place]) Hydromorphone (Dilaudid) Meloxicam (Mobic) Meperidine (Demerol) Oxycodone Oxycodone/Acetaminophen (Percocet) Tramadol (Ultram) Anti-Anxiety Lorazepam (Ativan) Anti-Migraine Rizatriptan (Maxalt) Sumatriptan (Imitrex, Sumavel) GEPANTS Ubrogepant (Ubrelvy) Rimegepant (Nurtec) Over the Counter Medications Acetaminophen (Tylenol) Acetaminophen/Aspirin/Caffeine (Excedrin, Goody s) Aspirin Ibuprofen (Advil, Motrin) Naproxen sodium (Aleve) Last Visit: 01/24/24 with [employer] for Botox Interval Headache Hx: Doing well with Botox. Follow-Up Onabotulinum Toxin A (BotoxTM) for Migraine Indication: Chronic Intractable Migraine Treatment #: 18 Referral Expiration: 10/09/2025 Prior to the initiation of the FIRST treatment with Onabotulinum Toxin A, the patient reported the following average headache frequency over the past 3 MONTHS: Number of moderate-severe migraine days/month: 25 Number of mild migraine days/month: 0 Number of headache free days/month: 5 (120 headache-free hours) After treatment with Onabotulinum Toxin A: Number of moderate-severe migraine days/month: 5 Number of mild migraine days/month: 0 Number of headache free days/month: 25 (600 headache-free hours) Patient reduction in overall migraine days: Yes Patient reduction in moderate-severe migraine days: Yes Patient reduction of headache hours by 100 hours or more: Yes (reduction of 480 hours) Individual has obtained clinical benefit deemed significant by individual or prescriber (Y/N): Yes Patient's quality of life and ability to perform ADLs has improved (Y/N): Yes Side effects: none Wearing off: No The patient has been assessed for disorders which could contribute to breathing or swallowing difficulty, and there is no contraindication with PREEMPT Botox. There is no documented allergic reaction/hypersensitivity to any botulinum toxin and there is no active infection at proposed injection site. HEADACHE SCORES: 10/26/2023 01/18/2024 04/17/2024 Headache Questions ER visits since last office visit: 0 0 0 Hospital stays since last office visit 0 0 0 Limited ADLs in the last month: 0 1 0 Days missed from work or school in the last month: 0 0 0 Days headache pain free in the last month: 23 22 25 Days per month with ALL of the following symptoms - decreased productivity, light sensitivity and nausea: 2 1 0 Initial improvement of headache after botox injection at last visit: Minimally improved Much improved Much improved PRN medication usage in the last month: 7 10 6 Patient impression of improvement since last visit: No change No change No change 10/26/2023 01/18/2024 04/17/2024 HIT-6 HIT-6 44 (Little or no impact) Incomplete 40 (Little or no impact) 10/26/2023 01/18/2024 04/17/2024 KEYONNA - 2/7 SCORES KEYONNA-2 Score 0 0 0 10/26/2023 01/18/2024 04/17/2024 Migraine Specific QOL - Higher scores indicate better HRQL Role Function-Restrictive Transformed Score (range: 0-100) 88.57 91.43 100 Role Function-Preventive Transformed Score (range: 0-100) 100 100 100 Emotional Function Transformed Score (range: 0-100) 100 100 100 10/26/2023 01/18/2024 04/17/2024 PHQ-9 Score 3 2 2 BP 144/96 Pulse 81 Ht 157.5 cm (5' 2") Wt 65.3 kg (144 lb) LMP 05/06/2014 BMI 26.34 kg/m Patient name: Marcial Yeung : 1965 ALLERGIES Allergen Reactions 2-Octyl Cyanoacryla* Rash Blistering contact reaction Citalopram Other: See Comments Did not tolerate, ? Mental status changes Liquid Bandage [Enb* Rash blisters and rash Propranolol Mental Status Change Tetracycline GI Upset Abdominal pain/cramping UNIVERSAL PROTOCOL / SAFETY CHECKLIST Procedure to be Performed: Botox Sign In: A Moment of CARE was completed. Personnel directly involved with the procedure wore the appropriate PPE (Personal Protective Equipment). Patient/Surrogate Stated/Verified: PATIENT VERIFIED(optional for EMERGENT procedures): Patient name, Date of , Relevant allergies and The intended procedure Time Out Communication: Intended patient and procedure match the source documents. Consent documented and matches the intended procedure. Sign Out: SIGN OUT (optional for EMERGENT procedures): No specimen collected. Lamont Michel DO UNIVERSAL PROTOCOL / SAFETY CHECKLIST Procedure: Onabotulinum toxin A for migraine Informed Consent Consent Obtained: Written [place] Protocol A moment to CARE was completed SIGN IN Personnel directly involved with the procedure wore the appropriate PPE Special Equipment: N/A Patient/Surrogate Stated/Verified: Patient name, Date of , Relevant allergies and Intended procedure TIME OUT Intended patient and procedure match the source document(s) Consent documented and matches the intended procedure No relevant labs, photos, and/or imaging studies were applicable for review. No correct side/site applicable for marking and visibility. No medications required for procedure. No fire risk assessment and interventions applicable. No implant(s) inserted. SIGN OUT No specimen collected. No instruments, equipment or retained foreign bodies applicable. Post-procedure follow-up management communicated and Plan of Care Visit completed when applicable Written Consent Obtained: Written LOT #: [id number] Expiration Date: Month: Year: 2025 Injection Sites Left (Units) Left (Sites) Right (Units) Right (Sites) TOTAL (Units) Pesticide Chemist 5 1 5 1 10 Procerus Units: 5 Sites: 1 5 Frontalis 10 2 10 2 20 Temporalis 25 5 25 5 50 Occipitalis 25 4 25 4 50 Cervical PSP 10 2 10 2 20 Trapezius 22.5 5 22.5 5 45 Total Units used: 200 Total Units wasted: 0 Prior Therapies Duration of Use Dose Reason for Discontinuation Analgesic Hydrocodone/Acetaminophen (Vicodin, [place]) Hydromorphone (Dilaudid) Meloxicam (Mobic) Meperidine (Demerol) Oxycodone Oxycodone/Acetaminophen (Percocet) Tramadol (Ultram) Anti-Anxiety Lorazepam (Ativan) Anti-Convulsant Gabapentin (Neurontin) Topiramate (Topamax, Trokendi XL, Qudexy) Anti-Depressant and Antipsychotic Amitriptyline (Elavil) Bupropion (Wellbutrin) Citalopram (Celexa) Fluoxetine (Prozac) Venlafaxine (Effexor) Antiemetics Metoclopramide Ondansetron Prochlorperazine Promethazine Anti-Migraine Rizatriptan (Maxalt) Sumatriptan (Imitrex, Sumavel) Blood Pressure Metoprolol (Lopressor,Toprol XL) Propranolol (Inderal) GEPANTS Ubrogepant (Ubrelvy) Rimegepant (Nurtec) Botulinum Toxin Onabotulinum Toxin A (Botox) Muscle Relaxer Cyclobenzaprine (Flexeril) Sleep Aids Trazodone (Desyrel) Zolpidem (Ambien) Supplements Magnesium Other Medications Dexamethasone (Decadron) Prednisone Over the Counter Medications Acetaminophen (Tylenol) Acetaminophen/Aspirin/Caffeine (Excedrin, Goody s) Aspirin Ibuprofen (Advil, Motrin) Naproxen sodium (Aleve) Lamont Michel DO PMH: 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 flecainide; indication: symptomatic PSVT with WPW syndrome Other anxiety states Palpitations Paroxysmal supraventricular tachycardia (HCC) see "WPW Syndrome" Primary insomnia 06/11/2015 Sinus tachycardia 10/20/2023 Stress incontinence, female Unspecified asthma(493.90) WPW (Vkewu-Jbzwstspk-Ktmuf syndrome) associated with symptomatic SVT; attempt at catheter ablation 11/2016 failed; she continues to experience intermittent palpitations and tachycardia despite treatment with flecainide; successful RFCA 03/2018 SOC: Social History Tobacco Use Smoking status: Never Smokeless tobacco: Never Vaping Use Vaping Use: Never used Substance Use Topics Alcohol use: Yes Comment: occasionally Drug use: No MEDS: Current Outpatient Medications Medication Sig traMADol (ULTRAM) 50 mg tablet Take 1 tablet by mouth two times a day as needed for up to 30 days. gabapentin (NEURONTIN) 100 mg capsule Take 1 capsule by mouth two times a day for 30 days. rimegepant (NURTEC ODT) 75 mg disintegrating tablet dissolve 1 tablet orally AT ONSET OF MIGRAINE and may repeat ONCE PER 24 HOURS IF NEEDED magnesium oxide (MAG-OX) 400 mg (241.3 mg magnesium) tablet Take 1 tablet by mouth once daily. traZODone (DESYREL) 50 mg tablet TAKE 1 AND 1/2 TABLETS BY MOUTH EVERY NIGHT AT BEDTIME [id number] (REFRESH OPTIVE ADVANCED, PF,) 0.5-1-0.5 % dpet Use 1 Drop in eyes fourtimes a day as needed. pantoprazole DR (PROTONIX) 40 mg tablet Take 1 tablet by mouth two times a day. ipratropium bromide (ATROVENT) 42 mcg (0.06 %) nasal spray Use 2 Sprays in the nose three times a day. Ipratropium [place] (ATROVENT) 21 mcg (0.03 %) nasal spray Use 2 Sprays in the nose three times a day. fexofenadine (LAURA ALLERGY) 180 mg tablet Take 1 tablet by mouth once daily. tiZANidine (ZANAFLEX) 4 mg tablet Take 1 tablet by mouth every 8 hours as needed. prn cephALEXin (KEFLEX) 250 mg capsule Take 250 mg by mouth once daily as needed (after intercourse). montelukast (SINGULAIR) 10 mg tablet metoprolol succinate ER (TOPROL XL) 50 mg 24 hr tablet Take 1 tablet by mouth once daily. ondansetron (ZOFRAN) 4 mg tablet take 1 tablet by mouth every 8 hours if needed for nausea and vomiting ARNUITY ELLIPTA 200 mcg/actuation inhaler inhale 1 puff by mouth daily phenazopyridine (PYRIDIUM, GERIDIUM) 200 mg tablet Take 200 mg by mouth three times a day as neededfor pain. prn estradiol (NOBLE, VIVELLE-DOT) 0.025 mg/24 hr 1 Patch every Tuesday and Tuesday. levalbuterol tartrate HFA 45 mcg/actuation inhaler Inhale 1-2 Puffs as instructed every 4 hours as needed for wheezing/shortness of breath. (Patient not taking: Reported on 01/24/2024) dicyclomine (BENTYL) 10 mg capsule Take 1 capsule by mouth three times daily. (Patient taking differently: Take 10 mg by mouth three times a day. prn) albuterol HFA (PROVENTIL HFA, VENTOLIN HFA) 90 mcg/actuation inhaler Inhale 2 Puffs as instructed every 4 hours as needed. cholestyramine (QUESTRAN) 4 gram packet take 1 packet ( 4 grams ) by mouth twice a day dissolve in 2 to 6 ounces OF WATER OR NONCARBONATED BEVERAGE with meals (Patient not taking: Reported on 01/24/2024) No current facility-administered medications for this visit. REVIEW OF SYSTEMS: Review of system : unchanged from the previous visit (sleep patterns, mood, energy, appetite, stress, exercising). Physical Examination: BP 144/96 Pulse 81 Ht 157.5 cm (5' 2") Wt 65.3 kg (144 lb) LMP 05/06/2014 BMI 26.34 kg/m GEN: Alert. NAD. Normal affect. Cooperative. NECK/BACK: Suboccipital tenderness present. Paracervical and upper shoulder musculature/traps tenderness and hypertonicity present. NEUROLOGICAL: A+O x 3. Attentive. Thought process and content unremarkable. Follows commands appropriately. Speech fluent. Lamont Michel DO [facility] [place] Department of [facility] [address] [place] [address] Level of service: Est level 2 (10-19 min). Time spent 19 min on the day of service, which included preparing to see the patient, [id number] patient care, completing clinical documentation, obtaining and/or reviewing separately obtained history, performing a medically appropriate examination, counseling and educating the patient/family/caregiver, ordering medications, tests, or procedures, and communicating with other HCPs (not separately reported). Medical Decision Making: Medical Decision Making Level: 1 - N/A cc: Agnieszka Monsalve [address] [id number] [address] [place] [address] documented in this encounterC[facility]06-[facility]24 Telephone encounter Note * Telephone Encounter - James Harry DO - 03/27/2024 8:54 AM EDT The following approved medication requests have been transmitted electronically. Requested Prescriptions Pending Prescriptions Disp Refills traMADol (ULTRAM) 50 mg tablet [Pharmacy Med Name: TRAMADOL HCL 50 MG TABLET] 60 tablet Sig: take 1 tablet by mouth twice a day if needed for pain James Harry DO [facility]06-25-2024 Miscellaneous Notes* Telephone Encounter - James Harry DO - 03/27/2024 8:54 AM EDT The following approved medication requests have been transmitted electronically. Requested Prescriptions Pending Prescriptions Disp Refills traMADol (ULTRAM) 50 mg tablet [Pharmacy Med Name: TRAMADOL HCL 50 MG TABLET] 60 tablet Sig: take 1 tablet by mouth twice a day if needed for pain James Harry DO * Telephone Encounter - Kassie Richards MA - 03/27/2024 8:34 AM EDT Last office visit 11/29/23. Follow up appointment scheduled on . Patient phones requesting refills as follows: Requested Prescriptions Pending Prescriptions Disp Refills traMADol (ULTRAM) 50 mg tablet [Pharmacy Med Name: TRAMADOL HCL 50 MG TABLET] 60 tablet Sig: Take 1 tablet by mouth two times a day as needed. Please review and advise. Kassie Richards MA documented in this encounterCleveland [facility]06-25-2024 Telephone encounter Note * Telephone Encounter - Kassie Richards MA - 03/27/2024 8:34 AM EDT Last office visit 11/29/23. Follow up appointment scheduled on . Patient phones requesting refills as follows: Requested Prescriptions Pending Prescriptions Disp Refills traMADol (ULTRAM) 50 mg tablet [Pharmacy Med Name: TRAMADOL HCL 50 MG TABLET] 60 tablet Sig: Take 1 tablet by mouth two times a day as needed. Please review and advise. Kassie Richards MA [facility]06-22-2024 Instructions* Patient Instructions* Dasha Gaytan APRN.ASBESTOS MICROSCOPIST - 03/24/2024 4:45 PM EDT ASTHMA GENERAL INFORMATION: Asthma is a chronic condition caused by narrowing of the air passages in the lungs. It may be triggered by pollen, dust, animal dander, molds, some foods, respiratory infections,exposure to smoke or fumes, exercise or emotional stress. It often comes on when the weather changes. The most common symptoms are wheezing, shortness of breath, and cough. Repeat attacks are common. INSTRUCTIONS: 1. Avoid exposure to pollen, dust, animal dander, molds, smoke, and other things that cause attacksat home and at work. Even if you are not sure what causes your attacks, you may have fewer attacks if you reduce the amount of dust in your home. Replacing you pillows or mattress with materials thatdo not cause allergies may also help. 2. Drink 8 to 10 glasses of water or other liquids each day to help thin mucus so that it can be coughed up more easily. 3. You should try to be as physically active as possible. If a certain type of exercise causes an attack, you should try to avoid it. If you have an attack following exercise, you should sit and rest. 4. You may have been instructed to use a peak flow meter to monitor your asthma. Follow the directions you were given. 5. Take your medication as prescribed. Do not overuse your inhalers! CALL YOUR DOCTOR IF: 1. You have wheezing and shortness of breath even though you are taking medicine to prevent attacks. 2. You develop a temperature over 100.4 F (38 C), muscle aches, chest pain, thickening of mucus, ora change in the color of mucus to yellow, green, orona, or bloody. 3. You have any problems that may be related to the medicine you are taking. RETURN TO THE ED IF: 1. You have an asthma attack that is not relieved by treatment with your usual medicines. 2. You have increasing shortness of breath. documented in this encounterCleveland Clinic [facility]06-22-2024 History of Present illness Narrative* Dasha Gaytan APRN.CNP - 03/24/2024 4:10 PM EDT Telemedicine Visit - Distance Health Virtual Visit Note Patient seen on [employer] Video Visit platform. Location of patient: [place] I have communicated my name and active licensure. The patient's identity and physical location wereverified at the time of this visit. Either the patient or their legal sales representative wire rope has been informed of the risks and benefits of -- and alternatives to -- treatment through a remote evaluation andconsents to proceed with the evaluation remotely. History of Present Illness Marcial Yeung is a 58 year old female with PMH of asthma, bronchitis, and allergic rhinitis who presents for with c/o worsening cough. To note - heat advisory and air quality alerts have been in place for close to one week. Symptoms include: 03/19- developed scratchy sore throat and has had intermittent headache, slight rhinorrhea Over the past few days developed dry, "raspy" cough that is worsening. Experiencing intermittent chest tightness; upper chest is starting to hurt with coughing Negative for fever, chills/sweats, SOB, ENRIQUEZ, wheezing, new face pain/pressure (reports she has sinus issues), teeth pain, otalgia, nausea, vomiting, diarrhea Recent rapid at-home COVID test completed: No Sick contacts: Denies Recent travel: Denies OTC meds/remedies that patient has tried: Xopenex inhaler, nasal sprays, benzonatate last night, OTC sinus and cold medications 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 flecainide; indication: symptomatic PSVT with WPW syndrome Other anxiety states Palpitations Paroxysmal supraventricular tachycardia (HCC) see "WPW Syndrome" Primary insomnia 06/11/2015 Sinus tachycardia 10/20/2023 Stress incontinence, female Unspecified asthma(493.90) WPW (Dwojn-Gawfveote-Ifyul syndrome) associated with symptomatic SVT; attempt at catheter ablation 11/2016 failed; she continues to experience intermittent palpitations and tachycardia despite treatment with flecainide; successful RFCA 03/2018 PAST SURGICAL HISTORY Procedure Laterality Date BLADDER SURGERY HX 11/2015 bladder sling BREAST AUGMENTATION WITH IMPLANT 11/2007 Breast augmentation CARDIAC MONITORING CONTINUOUS 05/25/2018 96 hours monitoring: sinus rhythm, sinus tachycardia; patient event activations and/or reported symptoms correlated with sinus rhythm and sinus tachycardia DELIVERY ONLY 85, 88,92 , low cervical X3 COLONOSCOPY 06/2021 EGD 2019 LIGATION OF HEMORRHOID(S) 10/07/2020 IUD INSERTION ([employer])_*FL 08/30/2007 Mirena - removed LAPAROSCOPY SURG CHOLECYSTECTOMY 11/16/2017 [facility] OOPHORECTOMY, PART/TOTAL UNILAT/BILAT 2016 PAST SURGICAL HISTORY OF 09/2021 C4-C6 disc replacement S PK LAVH [id number] 2013 lavh RICKY biltareal salpingectomy SVT ABLATION W/ EP COMPLETE 11/24/2016 [facility], Dr. Mcknight; right midseptal AP unable to be ablated despite cryoablation and RF ablation attempts; AP described as not having capability for extremely rapid antegrade conduction SVT ABLATION W/ EP COMPLETE 03/28/2018 left posteroseptal AP just within the proximal CS; Stereotaxis RF with Carto guidance, successful elimination of AP conduction; no SVT inducible pre- or post-ablation; CCAG Dr. Luong TONSILLECTOMY & ADENOIDECTOMY <AGE 13 1968 VAGINAL HYSTERECTOMY FAMILY HISTORY Problem Relation Age of Onset Thyroid Mother goiter other (Palpitations) Mother Asthma Father Asthma Son other (Palpitations) Son Thyroid Maternal Grandmother goiter other (Other) Maternal Grandfather young in MVA Emphysema Paternal Grandmother Heart Failure Paternal Grandmother other (tobacco use) Paternal Grandmother Heart disease Paternal Grandfather had a heart attack and at young age Stroke Paternal Grandfather Prostate Cancer Paternal Grandfather Asthma Daughter other (Brain tumor) Daughter benign Seizures Brother Heart Brother WPW syndrome; ablation unsuccessful -- too close to AV node other (Other) Other no unexplained sudden , crib deaths, unexplained syncope Social History Tobacco Use Smoking status: Never Smokeless tobacco: Never Vaping Use Vaping Use: Never used Substance Use Topics Alcohol use: Yes Comment: occasionally Drug use: No Current Outpatient Medications Medication Sig gabapentin (NEURONTIN) 100 mg capsule Take 1 capsule by mouth two times a day for 30 days. traMADol (ULTRAM) 50 mg tablet Take 1 tablet by mouth two times a day as needed for pain for up to 30 days. rimegepant (NURTEC ODT) 75 mg disintegrating tablet dissolve 1 tablet orally AT ONSET OF MIGRAINE and may repeat ONCE PER 24 HOURS IF NEEDED magnesium oxide (MAG-OX) 400 mg (241.3 mg magnesium) tablet Take 1 tablet by mouth once daily. traZODone (DESYREL) 50 mg tablet TAKE 1 AND 1/2 TABLETS BY MOUTH EVERY NIGHT AT BEDTIME [id number] (REFRESH OPTIVE ADVANCED, PF,) 0.5-1-0.5 % dpet Use 1 Drop in eyes fourtimes a day as needed. pantoprazole DR (PROTONIX) 40 mg tablet Take 1 tablet by mouth two times a day. ipratropium bromide (ATROVENT) 42 mcg (0.06 %) nasal spray Use 2 Sprays in the nose three times a day. Ipratropium [place] (ATROVENT) 21 mcg (0.03 %) nasal spray Use 2 Sprays in the nose three times a day. levalbuterol tartrate HFA 45 mcg/actuation inhaler Inhale 1-2 Puffs as instructed every 4 hours as needed for wheezing/shortness of breath. (Patient not taking: Reported on 01/24/2024) fexofenadine (LAURA ALLERGY) 180 mg tablet Take 1 tablet by mouth once daily. tiZANidine (ZANAFLEX) 4 mg tablet Take 1 tablet by mouth every 8 hours as needed. prn cephALEXin (KEFLEX) 250 mg capsule Take 250 mg by mouth once daily as needed (after intercourse). montelukast (SINGULAIR) 10 mg tablet metoprolol succinate ER (TOPROL XL) 50 mg 24 hr tablet Take 1 tablet by mouth once daily. ondansetron (ZOFRAN) 4 mg tablet take 1 tablet by mouth every 8 hours if needed for nausea and vomiting ARNUITY ELLIPTA 200 mcg/actuation inhaler inhale 1 puff by mouth daily fluticasone (FLOVENT HFA) 110 mcg/actuation inhaler Inhale 1 Puff as instructed twice daily. Shake well before use. Rinse mouth after use. (Patient not taking: Reported on 01/24/2024) dicyclomine (BENTYL) 10 mg capsule Take 1 capsule by mouth three times daily. (Patient taking differently: Take 10 mg by mouth three times a day. prn) albuterol HFA (PROVENTIL HFA, VENTOLIN HFA) 90 mcg/actuation inhaler Inhale 2 Puffs as instructed every 4 hours as needed. phenazopyridine (PYRIDIUM, GERIDIUM) 200 mg tablet Take 200 mg by mouth three times a day as neededfor pain. prn cholestyramine (QUESTRAN) 4 gram packet take 1 packet ( 4 grams ) by mouth twice a day dissolve in 2 to 6 ounces OF WATER OR NONCARBONATED BEVERAGE with meals (Patient not taking: Reported on 01/24/2024) estradiol (NOBLE, VIVELLE-DOT) 0.025 mg/24 hr 1 Patch every Tuesday and Tuesday. No current facility-administered medications for this visit. ALLERGIES Allergen Reactions 2-Octyl Cyanoacryla* Rash Blistering contact reaction Citalopram Other: See Comments Did not tolerate, ? Mental status changes Liquid Bandage [Enb* Rash blisters and rash Propranolol Mental Status Change Tetracycline GI Upset Abdominal pain/cramping Video Exam (Examination performed via Video enabled technology) General appearance: Alert, oriented, pleasant, in NAD: Yes Ill appearing: No Lethargic appearing: No Eyes: Sclera clear: Yes Conjunctiva without erythema: Yes Ears: Tragus / outer ear tenderness by self palpation: No Oropharynx: moist mucus membranes, no tonsillar hypertrophy/exudate, uvula midline and pharynx non-erythematous, lips, teeth and gums are without obvious lesion Frontal sinus tenderness by self palpation: No Maxillary sinus tenderness by self palpation: Yes Tender cervical adenopathy by self palpation: No Respiratory distress: No Coughing noted: Yes +tight bronchial cough noted Audible wheezing noted: No ASSESSMENT/PLAN: 1. Mild persistent asthma with acute exacerbation - ICD9: 493.92, ICD10: J45.31 - METHYLPREDNISOLONE 4 MG TABLETS IN A DOSE PACK - Mild persistent asthma acute excacerbation no respiratory distress; suspect r/t air quality - Continue current medications - Exacerbation treatment of Medrol dose pack; patient reports she tolerates this steroid - prednisone causes increased PVCs - Avoidance of triggers recommended - May continue with benzonatate to help with cough at night time - Humidifier next to bed may help with cough/scratchy throat - If symptoms are not improving, follow up with pony rougher - Seek immediate medical attention if difficulty breathing, chest pain, SOB not resolved with Xopenex, or other concerning symptoms - All questions answered Dasha Gaytan APRN.ASBESTOS MICROSCOPIST documented in this encounterCleveland Clinic [facility]05-31-2024 History of Present illness Narrative* Nimesh Velasquez DO - 03/02/2024 9:01 AM EDTAssociated Order(s): Large Joint Arthro/Inj: R hip joint Post-Procedure Diagnose(s): Pain of right hip Pain of right hip (primary encounter diagnosis) Large Joint Arthro/Inj: R hip joint Informed Consent Consent Obtained: Verbal [place] Protocol A moment to CARE was completed. SIGN IN Personnel directly involved with the procedure wore the appropriate PPE. Patient/Surrogate Stated/Verified: Patient name, Date of , Relevant allergies and Intended procedure TIME OUT Intended patient and procedure match the source document(s). Consent documented and matches the intended procedure. Correct side/site marked and visible. Medications required for procedure verified. Fire risk assessed and interventions discussed. 03/02/2024 9:01 AM The procedure site was prepped in the usual sterile fashion. Site: R hip joint Details:Musculoskeletal ultrasound was utilized to successfully localize placement of the injectionneedle at the appropriate site. Ultrasound images demonstrating local vasculature and demonstratinginjection of solution were saved. Medications: 40 mg triamcinolone acetonide 40 mg/mL Anesthetics: 2 mL lidocaine (PF) 10 mg/mL (1 %) Outcome: Tolerated well, no immediate complications Post-injection instructions were reviewed with the patient and the patient voiced understanding of these instructions. SIGN OUT All specimen containers correctly labeled. Post-procedure follow-up management communicated and Plan of Care Visit completed when applicable Nimesh Velasquez DO documented in this encounterCleveland Clinic [facility] Hospital05-21-2024 Instructions* Patient Instructions* Andrew Kunz MD - 02/21/2024 3:52 PM EDT Please keep a pain diary following your injection. Please document the percentage of pain relief 1 hour after the injection, 6 hours after the injection, 12 hours after the injection, 24 hours after the injection, the following week and weekly thereafter. documented in this encounterCleveland Clinic [facility]05-21-2024 History of Present illness Narrative* Andrew Kunz MD - 02/21/2024 3:00 PM EDT NEW ENCOUNTER This patient is being seen at the request of Mahendra Kunz MD and the progress note from this visit will be communicated via shared medical record Chief Complaint: right acetabular labrum tear 12/25/23 RT HIP MRI W/O IMPRESSION: Nondisplaced right acetabular labral tear with minimal paralabral chondral fissuring. History: Patient is a 58 year old female; she denies an acute injury event. Had fluoro-guided right hip CSI with radiology 05/26/23 but was worse after. She reports having history of GERD and sees cardiology as well, no confirmed diagnosis. 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 Exercise: walking, lunges Patient History 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 flecainide; indication: symptomatic PSVT with WPW syndrome Other anxiety states Palpitations Paroxysmal supraventricular tachycardia (HCC) see "WPW Syndrome" Primary insomnia 06/11/2015 Sinus tachycardia 10/20/2023 Stress incontinence, female Unspecified asthma(493.90) 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; attempt at catheter ablation 11/2016 failed; she continues to experience intermittent palpitations and tachycardia despite treatment with flecainide; successful RFCA 03/2018 PAST SURGICAL HISTORY Procedure Laterality Date BLADDER SURGERY HX 11/2015 bladder sling BREAST AUGMENTATION WITH IMPLANT 11/2007 Breast augmentation CARDIAC MONITORING CONTINUOUS 05/25/2018 96 hours monitoring: sinus rhythm, sinus tachycardia; patient event activations and/or reported symptoms correlated with sinus rhythm and sinus tachycardia DELIVERY ONLY 85, 88,92 , low cervical X3 COLONOSCOPY 06/2021 EGD 2019 F LIGATION OF HEMORRHOID(S) 10/07/2020 IUD INSERTION ([facility])_*FL 08/30/2007 Mirena - removed LAPAROSCOPY SURG CHOLECYSTECTOMY 11/16/2017 [facility] OOPHORECTOMY, PART/TOTAL UNILAT/BILAT 2016 PAST SURGICAL HISTORY OF 09/2021 C4-C6 disc replacement S PK LAVH [id number] 2013 lavh RICKY biltareal salpingectomy SVT ABLATION W/ EP COMPLETE 11/24/2016 [facility], Dr. Mcknight; right midseptal AP unable to be ablated despite cryoablation and RF ablation attempts; AP described as not having capability for extremely rapid antegrade conduction SVT ABLATION W/ EP COMPLETE 03/28/2018 left posteroseptal AP just within the proximal CS; Stereotaxis RF with Carto guidance, successful elimination of AP conduction; no SVT inducible pre- or post-ablation; [facility] Dr. Luong TONSILLECTOMY & ADENOIDECTOMY <AGE 13 1969 VAGINAL HYSTERECTOMY rimegepant (NURTEC ODT) 75 mg disintegrating tablet dissolve 1 tablet orally AT ONSET OF MIGRAINE and may repeat ONCE PER 24 HOURS IF NEEDED magnesium oxide (MAG-OX) 400 mg (241.3 mg magnesium) tablet Take 1 tablet by mouth once daily. traZODone (DESYREL) 50 mg tablet TAKE 1 AND 1/2 TABLETS BY MOUTH EVERY NIGHT AT BEDTIME [id number] (REFRESH OPTIVE ADVANCED, PF,) 0.5-1-0.5 % dpet Use 1 Drop in eyes fourtimes a day as needed. pantoprazole DR (PROTONIX) 40 mg tablet Take 1 tablet by mouth two times a day. gabapentin (NEURONTIN) 100 mg capsule Take 1 capsule by mouth two times a day for 60 days. ipratropium bromide (ATROVENT) 42 mcg (0.06 %) nasal spray Use 2 Sprays in the nose three times a day. Ipratropium [place] (ATROVENT) 21 mcg (0.03 %) nasal spray Use 2 Sprays in the nose three times a day. levalbuterol tartrate HFA 45 mcg/actuation inhaler Inhale 1-2 Puffs as instructed every 4 hours as needed for wheezing/shortness of breath. (Patient not taking: Reported on 01/24/2024) fexofenadine (LAURA ALLERGY) 180 mg tablet Take 1 tablet by mouth once daily. tiZANidine (ZANAFLEX) 4 mg tablet Take 1 tablet by mouth every 8 hours as needed. prn cephALEXin (KEFLEX) 250 mg capsule Take 250 mg by mouth once daily as needed (after intercourse). montelukast (SINGULAIR) 10 mg tablet metoprolol succinate ER (TOPROL XL) 50 mg 24 hr tablet Take 1 tablet by mouth once daily. ondansetron (ZOFRAN) 4 mg tablet take 1 tablet by mouth every 8 hours if needed for nausea and vomiting ARNUITY ELLIPTA 200 mcg/actuation inhaler inhale 1 puff by mouth daily fluticasone (FLOVENT HFA) 110 mcg/actuation inhaler Inhale 1 Puff as instructed twice daily. Shake well before use. Rinse mouth after use. (Patient not taking: Reported on 01/24/2024) dicyclomine (BENTYL) 10 mg capsule Take 1 capsule by mouth three times daily. (Patient taking differently: Take 10 mg by mouth three times a day. prn) albuterol HFA (PROVENTIL HFA, VENTOLIN HFA) 90 mcg/actuation inhaler Inhale 2 Puffs as instructed every 4 hours as needed. phenazopyridine (PYRIDIUM, GERIDIUM) 200 mg tablet Take 200 mg by mouth three times a day as neededfor pain. prn cholestyramine (QUESTRAN) 4 gram packet take 1 packet ( 4 grams ) by mouth twice a day dissolve in 2 to 6 ounces OF WATER OR NONCARBONATED BEVERAGE with meals (Patient not taking: Reported on 01/24/2024) estradiol (NOBLE, VIVELLE-DOT) 0.025 mg/24 hr 1 Patch every Tuesday and Tuesday. Allergies: ALLERGIES Allergen Reactions 2-Octyl Cyanoacryla* Rash Blistering contact reaction Citalopram Other: See Comments Did not tolerate, ? Mental status changes Liquid Bandage [Enb* Rash blisters and rash Propranolol Mental Status Change Tetracycline GI Upset Abdominal pain/cramping REVIEW OF SYSTEMS: CONSTITUTIONAL: Denies fever and weight loss. EYES: Denies acute vision changes. ENT: Denies hearing changes or difficulty swallowing. CARDIAC: Denies chest pain or edema. RESPIRATORY: Denies dyspnea, cough or wheeze. GASTROINTESTINAL: Denies abdominal pain, nausea, vomiting. MUSCULOSKELETAL: See HPI. SKIN: Denies any recent rash or lesion. NEUROLOGICAL: Denies numbness or focal weakness. PSYCHIATRIC: No history of psychiatric symptoms or problems. ENDOCRINE: Denies current diagnosis of diabetes. HEMATOLOGY: Denies episodes of easy bleeding. Allergies, medications, past surgical history and past medical history were reviewed per this encounter. Physical Examination: Region: Hip General Appearance: Appears healthy, well-nourished, no deformities. Neck/Spine/Station/Gait: N/A Left Exam: AROM: Normal PROM: Normal Point Tenderness location: none Swelling/Effusion: none Stability: normal Muscle Strength: normal Sensation:normal Reflexes:normal Skin: normal Pulses: normal Special Tests: Pain in groin with FADIR, JOSE, R>>L. Mild pain with SLR. Right Exam: AROM: Normal PROM: Normal Point Tenderness location:none Swelling/Effusion: none Stability: normal Muscle Strength: normal Sensation:normal Reflexes:normal Skin: normal Pulses: normal Special Tests: Pain in groin with FADIR, JOSE, R>>L. Mild pain with SLR. Images have been personally reviewed by me and discussed with patient. XR bilateral hips with slight sclerosis, well-maintained joint spaces bilaterally. MRI R hip showing anterosuperior labral tear Assessment and Plan: R hip labral tear - Discussed operative and non-operative management options - At this time, patient interested in intra-articular injection into R hip; consult placed today - Discussed importance of keeping pain diary after injection - Patient will follow up as needed after injection for possible future surgical discussion as needed [facility] STAFF PHYSICIAN NOTE OF PERSONAL INVOLVEMENT IN CARE Resident's history reviewed. I have personally examined the patient and repeated the javier componentsof the exam/history. The assessment and plan were formulated and discussed with the resident/fellow. Please see my below dicatation for all pertinent highlights, including historical emphasis, clinical exam, tests ordered, and the plan moving forward. See resident's note for additional details. Regarding the plan, we have had an in depth discussion today regarding the current symptomatology and possible causes for the current symptoms. This discussion included a personal review of all the available imaging studies with the patient, pertinent lab values, and highlighting javier findings. In Summary: Highlights: Chronic right hip pain with some increasing left hip pain. Pain with FADIR. Pain with prolonged sitting. Findings consistent with labrum tear. XR demonstrates maintained joint space, LCEA of 30 degrees, no Romero to evaluate cam morphology. MRI demonstrates labrum tear with intact cartilage. We discussed options for treatment, as well as appropriate expectations for pain relief/eduction. At this point she would like to proceed with USG CSI, followed by surgery in late Fall. She can reach to RNto schedule when ready. She will need hip brace and CHG wipes. Hip info sheet provided. Message sent to IS colleagues. Andrew Knuz MD Sports Medicine/Orthopaedic Surgery documented in this encounterC[facility] NoteHNO ID: [id number] Author: AMANDA VANG, [facility]-[employer] Service: ? Author Type: Speech Language Pathologist Type: Progress Notes Filed: 02/02/2024 14:56 Note Text: Start of Care Date: 02/02/24 Onset Date: 10/03/23 Patient Identified by Name and Date of : Yes [facility] MODIFIED BARIUM SWALLOW PLAN OF CARE: Impression: Evidence of: Oropharyngeal dysphagia -residue noted within the pharyngeal region following the swallow which is cleared with spontaneous secondary swallows -no evidence of laryngeal penetration / aspiration noted this date An elevated risk for aspiration: No Swallow Efficiency: Preserved RECOMMENDATION: Diet Recommendations: -Regular Consistency, -Thin Liquids IDDSI Level 0 Swallowing Precautions Recommendations: -Sit upright 90 degrees for all PO, -Maintain an upright position 20-30 minutes following all oral intake, -Anti-Reflux precautions, -Double swallows, -Feed / Eat at a slow rate, -Alternate bites and sips Results and Recommendations Discussed With: Patient SUBJECTIVE: Marcial Yeung is a 58 year old female seen today for a Modified Barium Swallow (MBS) Study. Dysphagia; -disc replacement in September 2021 (C3- C5) per patient -pt reports swallowing issues following procedure -pt states that she had a vocal tremor following a visit with the [employer] MACHINE from [facility] -she admits to intermittent choking episodes with all consistencies of PO intake -denies any avoiding any specific food items -reports intermittent numbness of the lips / tongue 2/3X's week; states that the duration is 'most of the day' - pt was consulted to report this to neurology -admits to heartburn / frequent GERD which is managed by prescribed medication as well as life style change -admits to frequent nausea paired with inconsistent emesis Patient Goals: determine current swallowing skills; hopes to not have choking episodes Prior Functional Level: Within Functional Limits OBJECTIVE: MEASURES WITH LEVEL OF FUNCTION: Swallow Position Of Patient During Assessment: Standing Consistencies Presented: Thin Liquids IDDSI Level 0, Pureed IDDSI Level 4, Soft and Bite-Sized IDDSI Level 6, Solid - able to follow verbal directives for the completion of today's fluoroscopic assessment; -able to self-manage rate and volume of all PO trials without difficulty Compensatory Strategies Utilized During Assessment: Double swallows, Self-monitoring Instrumental Swallow Assessment Type: Modified Barium Swallow Study Modified Barium Swallow Views: Lateral position Barium Consistencies Provided: Thin Liquids, Pureed Solids, Soft and Bite-Sized Solids, Regular Solids Oral Phase: Lip Closure: No labial escape/anterior loss of bolus Tongue Control During Bolus Hold: Cohesive bolus between tongue to palatal seal Bolus Preparation/Mastication: Timely and efficient mastication skills Bolus Transport/Lingual Motion: Brisk tongue motion for A-P movement of the bolus Oral Residue: Trace residue lining oral structures Initiation Of Pharyngeal Swallow: Bolus head at posterior angle of ramus Pharyngeal Phase: Soft Palate Elevation: No bolus between soft palate/pharyngeal wall Laryngeal Elevation: Complete superior movement of thyroid cartilage with contact of arytenoids to epiglottic petiole Anterior Hyoid Excursion: Complete anterior movement Epiglottic Movement: Complete inversion Laryngeal Vestibular Closure/Height of the Swallow: Complete - no air/contrast in laryngeal vestibule Pharyngeal Stripping Wave: Complete Pharyngoesophageal Segment Opening: Complete distension and complete duration/no obstruction of flow of bolus Tongue Base Retraction: Narrow column of contrast or air between tongue base and pharyngeal wall Pharyngeal Residue: -Collection of residue within or on the pharyngeal structures, -Residue within the valleculae and pyriform sinuses following the swallow Esophageal Clearance In An Upright Position: Esophageal retention, Esophageal retention without retrograde flow through the pharyngoesophageal segment Penetration-Aspiration Scale Level 1-Material does not enter airway Education: Education Learning Preferences: Explanation Barriers: None Learning/Educational Needs: MBSs results Education Provided: Yes, see treatment interventions for education provided Education Provided To: Patient Education Mode/Type: Explanation/Discussion, Video Response to Education/Teach Back: States/Identifies TREATMENT: Performed Modified Barium Swallowing Study (23852). -Provided education related to a typical swallowing mechanism in a compare and contrast manner compared to this patient's current skill set. -Fluoroscopic images were utilized to support education provided this date -Education regarding findings from today's Modified Barium Swallowing study (fluoroscopic study) were provided (more content not included)...[facility] 02-02-2024 NoteHNO ID: [id number] Author: MAIA VIRK RT(R) Service: Radiology Author Type: Technologist Type: Progress Notes Filed: 02/02/2024 14:11 Note Text: Radiology Service Progress Note PATIENT NAME: Marcial Yeung DATE OF SERVICE: February 02, 2024 TIME: 2:11 PM PATIENT IDENTITY VERIFICATION COMPLETED USING TWO (2) IDENTIFIERS: Name and Date of confirmed by patient verbally. FALL SCREENING: Has the patient had 2 falls in the last year or 1 fall with injury or currently using an Ambulatory Assistive Device (Walker, Cane, Wheelchair, Crutches, etc.)? No PATIENT GENDER DATA: Female. status: : No status: NO. PATIENT RELEVANT IMPLANT DATA REVIEWED: Not Applicable PATIENT PRESENTS WITH AN IMPLANTABLE OR ATTACHED TRUCK AND TRANSPORT MECHANIC: No RADIOLOGY DEPARTMENT: General X-ray: Exam(s) Completed: GI/ Procedure(s): Modified barium swallow with barium contrast PERIPHERAL IV DATA: Not applicable SIGNED BY: RT Mili(R) February 02, 2024 2:11 PMKettering Health [id number] Telephone encounter Note* Telephone Encounter - Baljeet Dobson RN - 02/02/2024 1:41 PM EDT Phone enc documented. MyC Msg Sent [facility] Work Phone: 1(909) 299-442305-02-2024 Miscellaneous Notes* Telephone Encounter - Baljeet Dobson RN - 02/02/2024 1:41 PM EDT Phone enc documented. MyC Msg Sent documented in this encounterCleveland [facility]05-02-2024 History of Present illness Narrative* Amanda Vang, [facility] - 02/02/2024 1:13 PM EDT Start of Care Date: 02/02/24 Onset Date: 10/03/23 Patient Identified by Name and Date of : Yes [facility] MODIFIED BARIUM SWALLOW PLAN OF CARE: Impression: Evidence of: Oropharyngeal dysphagia -residue noted within the pharyngeal region following the swallow which is cleared with spontaneoussecondary swallows -no evidence of laryngeal penetration / aspiration noted this date An elevated risk for aspiration: No Swallow Efficiency: Preserved RECOMMENDATION: Diet Recommendations: -Regular Consistency, -Thin Liquids IDDSI Level 0 Swallowing Precautions Recommendations: -Sit upright 90 degrees for all PO, -Maintain an upright position 20-30 minutes following all oral intake, -Anti-Reflux precautions, -Double swallows, -Feed / Eat at a slow rate, -Alternate bites and sips Results and Recommendations Discussed With: Patient SUBJECTIVE: Marcial Yeung is a 58 year old female seen today for a Modified Barium Swallow (MBS) Study. Dysphagia; -disc replacement in September 2021 (C3- C5) per patient -pt reports swallowing issues following procedure -pt states that she had a vocal tremor following a visit with the [employer] MACHINE from [facility] -she admits to intermittent choking episodes with all consistencies of PO intake -denies any avoiding any specific food items -reports intermittent numbness of the lips / tongue 2/3X's week; states that the duration is 'most of the day' - pt was consulted to report this to neurology -admits to heartburn / frequent GERD which is managed by prescribed medication as well as life style change -admits to frequent nausea paired with inconsistent emesis Patient Goals: determine current swallowing skills; hopes to not have choking episodes Prior Functional Level: Within Functional Limits OBJECTIVE: MEASURES WITH LEVEL OF FUNCTION: Swallow Position Of Patient During Assessment: Standing Consistencies Presented: Thin Liquids IDDSI Level 0, Pureed IDDSI Level 4, Soft and Bite-Sized IDDSI Level 6, Solid - able to follow verbal directives for the completion of today's fluoroscopic assessment; -able to self-manage rate and volume of all PO trials without difficulty Compensatory Strategies Utilized During Assessment: Double swallows, Self-monitoring Instrumental Swallow Assessment Type: Modified Barium Swallow Study Modified Barium Swallow Views: Lateral position Barium Consistencies Provided: Thin Liquids, Pureed Solids, Soft and Bite-Sized Solids, Regular Solids Oral Phase: Lip Closure: No labial escape/anterior loss of bolus Tongue Control During Bolus Hold: Cohesive bolus between tongue to palatal seal Bolus Preparation/Mastication: Timely and efficient mastication skills Bolus Transport/Lingual Motion: Brisk tongue motion for A-P movement of the bolus Oral Residue: Trace residue lining oral structures Initiation Of Pharyngeal Swallow: Bolus head at posterior angle of ramus Pharyngeal Phase: Soft Palate Elevation: No bolus between soft palate/pharyngeal wall Laryngeal Elevation: Complete superior movement of thyroid cartilage with contact of arytenoids to epiglottic petiole Anterior Hyoid Excursion: Complete anterior movement Epiglottic Movement: Complete inversion Laryngeal Vestibular Closure/Height of the Swallow: Complete - no air/contrast in laryngeal vestibule Pharyngeal Stripping Wave: Complete Pharyngoesophageal Segment Opening: Complete distension and complete duration/no obstruction of flow of bolus Tongue Base Retraction: Narrow column of contrast or air between tongue base and pharyngeal wall Pharyngeal Residue: -Collection of residue within or on the pharyngeal structures, -Residue within the valleculae and pyriform sinuses following the swallow Esophageal Clearance In An Upright Position: Esophageal retention, Esophageal retention without retrograde flow through the pharyngoesophageal segment Penetration-Aspiration Scale Level 1-Material does not enter airway Education: Education Learning Preferences: Explanation Barriers: None Learning/Educational Needs: MBSs results Education Provided: Yes, see treatment interventions for education provided Education Provided To: Patient Education Mode/Type: Explanation/Discussion, Video Response to Education/Teach Back: States/Identifies TREATMENT: Performed Modified Barium Swallowing Study (55248). -Provided education related to a typical swallowing mechanism in a compare and contrast manner compared to this patient's current skill set. -Fluoroscopic images were utilized to support education provided this date -Education regarding findings from today's Modified Barium Swallowing study (fluoroscopic study) were provided to the patient through verbal / written instruction, images and/or demonstration. Patient appeared to be able to demonstrate understanding of education provided this date. Billing: Modified Barium Swallow (45217) Total time: 45 minutes Session Start Time : 1300 Session Stop Time : 1345 Amanda Segura CCC-[employer] documented in this encounterC[facility]05-02-2024 History of Present illness Narrative* Maia Virk RT(R) - 02/02/2024 1:00 PM EDT Radiology Service Progress Note PATIENT NAME: Marcial Yeung DATE OF SERVICE: February 02, 2024 TIME: 2:11 PM PATIENT IDENTITY VERIFICATION COMPLETED USING TWO (2) IDENTIFIERS: Name and Date of confirmedby patient verbally. FALL SCREENING: Has the patient had 2 falls in the last year or 1 fall with injury or currently using an Ambulatory Assistive Device (Walker, Cane, Wheelchair, Crutches, etc.)? No PATIENT GENDER DATA: Female. status: : No status: NO. PATIENT RELEVANT IMPLANT DATA REVIEWED: Not Applicable PATIENT PRESENTS WITH AN IMPLANTABLE OR ATTACHED TRUCK AND TRANSPORT MECHANIC: No RADIOLOGY DEPARTMENT: General X-ray: Exam(s) Completed: GI/ Procedure(s): Modified barium swallowwith barium contrast PERIPHERAL IV DATA: Not applicable SIGNED BY: RT Mili(R) February 02, 2024 2:11 PM documented in this encounterCleveland [facility]05-02-2024 Telephone encounter Note * Telephone Encounter - Baljeet Dobson RN - 02/02/2024 9:24 AM EDT Dear Sarita Sauer, I'm Ramu Dobson, the nurse who supports Orthopaedic Sports Surgeon Dr. Andrew Kunz, and Rosa Goff PA-C. I am reaching out today in response to a referral request from Dr. Mahendra Kunz to Dr. Andrew Kunz - Right Hip Surgery Consult. Per the voicemail message I left today, you may call the office [phone] or reply to this [employer] message with some days and windows of time and the best number to reach you at for scheduling your Surgical Consultation Appointment. Very Respectfully, Ramu Dobson RN, D.M. Andrew Kunz M.D. Candie Goff PA-C Sports Medicine Surgeon and Orthopedic Surgeon Appt: [phone] [address] [facility] [address] [place], [place] [address] [facility] Work Phone: 1(938) 977-909005-02-2024 Miscellaneous Notes* Telephone Encounter - Baljeet Dobson RN - 02/02/2024 9:24 AM EDT Dear Sarita Sauer, I'm Ramu Dobson, the nurse who supports Orthopaedic Sports Surgeon Dr. Andrew Kunz, and Rosa Goff PA-C. I am reaching out today in response to a referral request from Dr. Mahendra Kunz to Dr. Andrew Kunz - Right Hip Surgery Consult. Per the voicemail message I left today, you may call the office [phone] or reply to this MyChart message with some days and windows of time and the best number to reach you at for scheduling your Surgical Consultation Appointment. Very Respectfully, Ramu Dobson RN, Delma.Ming. Andrew Kunz M.D. Candie Goff PA-C Sports Medicine Surgeon and Orthopedic Surgeon Appt: [phone] [facility] [address] [place], [place] [address] documented in this encounterCleveland Clinic [facility] Hospital04-24-2024 History of Present illness Narrative* Kailyn Reno MRI Tech - 01/25/2024 12:00 PM EDT Radiology Service Progress Note PATIENT NAME: Marcial Yeung DATE OF SERVICE: January 25, 2024 TIME: 12:34 PM PATIENT IDENTITY VERIFICATION COMPLETED USING TWO (2) IDENTIFIERS: Name and Date of confirmedby patient verbally. FALL SCREENING: Has the patient had 2 falls in the last year or 1 fall with injury or currently using an Ambulatory Assistive Device (Walker, Cane, Wheelchair, Crutches, etc.)? No PATIENT GENDER DATA: Female. status: : No status: NO. PATIENT RELEVANT IMPLANT DATA REVIEWED: Yes PATIENT PRESENTS WITH AN IMPLANTABLE OR ATTACHED TRUCK AND TRANSPORT MECHANIC: No RADIOLOGY DEPARTMENT: MR; Exam(s) Completed: Lower MSK: Hip, right PERIPHERAL IV DATA: Not applicable SIGNED BY: JERRICA Balderrama January 25, 2024 12:34 PM documented in this encounterCleveland Clinic [facility] Hospital04-23-2024 Instructions* Patient Instructions* Sharron Hollis APRN.ASBESTOS MICROSCOPIST - 01/24/2024 2:09 PM EDT AFTER VISIT CARE BOTOX INJECTION While these procedures can be extremely helpful as part of your headache treatment plan, they can irritate the muscles and tissues in your head, neck and shoulders. Proper follow-up care is important to avoid muscle spasms and temporary pain increase within the following 3-5 days after your clinic visit. Here are some tips to help decrease side-effects that may occur and maximize the effectiveness of your pain relief -HYDRATION Hydration is important to help nourish your muscles and tissues. Drink 60-80 oz of non caffeinated fluid at least for 3 days after your visit. -REST Rest will help avoid further irritation of muscle and tissues. Remember that you need to give your body time to adjust. NO strenuous activity for at least the first 24 hours after your visit. Gentle stretching, yoga, meditation or even swimming is OK and encouraged. -ICE/HEAT Since these procedures irritate muscles, there can be some swelling. Alternating ice and heat every3-5 times per day may help decrease this, while also optimizing pain relief Use cool gel packs for ice for 10 min. Use a warm moist towel covered with a dry towel on neck and shoulders. Alternate stretching each side of the neck. -STRETCHING Slow, gentle stretching of the neck and shoulders once every hour is helpful to avoid muscle spasms. -TREAT MUSCLE SPASMS If you are already prescribed a muscle relaxer such as baclofen, tizanidine or flexeril, use as directed. If you do not have one, talk to your provider to find out if this would be safe for you to use. Do not rub or massage the area for 48-72 hours. -OTHER No hair dyes or permanents for 24 hours. If you are paying out of pocket for Botox go online to Botox Savings Program and see if you qualifyfor reimbursement. Return in 3 months for your next Botox Injection documented in this encounterC[facility] History of Present illness Narrative* Sharron Hollis APRN.ROLAND - 01/24/2024 2:00 PM EDT [facility] Follow-up Visit Impression: Chronic migraine without aura, intractable, without status migrainosus (primary encounter diagnosis) Marcial Yeung has been previously approved for an Oral Calcitonin Gene-Related Peptide Receptor Antagonist (GEPANT) Rimegepant for the treatment of abortive use. The patient has demonstrated the following: Provider attests patient has had a positive clinical response: Yes Patient will not use with another Oral Calcitonin Gene-Related Peptide Receptor Antagonist (GEPANT): Yes Patient's quality of life and ability to perform ADLs has improved: Yes The patient has tried and failed the following : We suggest the patient continue treatment with GEPANT Rimegepant. The following preventative medications have been tried for three or more months without benefit: Anti-Convulsant Gabapentin (Neurontin) Topiramate (Topamax, Trokendi XL, Qudexy) Anti-Depressant and Antipsychotic Amitriptyline (Elavil) Bupropion (Wellbutrin) Citalopram (Celexa) Fluoxetine (Prozac) Venlafaxine (Effexor) Blood Pressure Metoprolol (Lopressor,Toprol XL) Propranolol (Inderal) Botulinum Toxin Onabotulinum Toxin A (Botox) Supplements Magnesium The following abortive medications have been tried but require high frequency use which can lead toMedication Overuse Headache: Analgesic Hydrocodone/Acetaminophen (Vicodin, [place]) Hydromorphone (Dilaudid) Meloxicam (Mobic) Meperidine (Demerol) Oxycodone Oxycodone/Acetaminophen (Percocet) Tramadol (Ultram) Anti-Anxiety Lorazepam (Ativan) Anti-Migraine Rizatriptan (Maxalt) Sumatriptan (Imitrex, Sumavel) GEPANTS Ubrogepant (Ubrelvy) Rimegepant (Nurtec) Over the Counter Medications Acetaminophen (Tylenol) Acetaminophen/Aspirin/Caffeine (Excedrin, Goody s) Aspirin Ibuprofen (Advil, Motrin) Naproxen sodium (Aleve) Follow-Up Onabotulinum Toxin A (BotoxTM) for Migraine Indication: Chronic Intractable Migraine Treatment #: 19 Referral Expiration: 10/09/2025 Prior to the initiation of the FIRST treatment with Onabotulinum Toxin A, the patient reported the following average headache frequency over the past 3 MONTHS: Number of moderate-severe migraine days/month: 25 Number of mild migraine days/month: 0 Number of headache free days/month: 5 (120 headache-free hours) After treatment with Onabotulinum Toxin A: Number of moderate-severe migraine days/month: 1 Number of mild migraine days/month: 7 Number of headache free days/month: 22 (528 headache-free hours) Patient reduction in overall migraine days: Yes Patient reduction in moderate-severe migraine days: Yes Patient reduction of headache hours by 100 hours or more: Yes (reduction of 408 hours) Individual has obtained clinical benefit deemed significant by individual or prescriber (Y/N): Yes Patient's quality of life and ability to perform ADLs has improved (Y/N): Yes Side effects: none Wearing off: Yes - 11 weeks after treatment The patient has been assessed for disorders which could contribute to breathing or swallowing difficulty, and there is no contraindication with PREEMPT Botox. There is no documented allergic reaction/hypersensitivity to any botulinum toxin and there is no active infection at proposed injection site. HEADACHE SCORES: 07/16/2023 10/26/2023 01/18/2024 Headache Questions ER visits since last office visit: 0 0 0 Hospital stays since last office visit 0 0 0 Limited ADLs in the last month: 1 0 1 Days missed from work or school in the last month: 0 0 0 Days headache pain free in the last month: 25 23 22 Days per month with ALL of the following symptoms - decreased productivity, light sensitivity and nausea: 1 2 1 Initial improvement of headache after botox injection at last visit: Much improved Minimally improved Much improved PRN medication usage in the last month: 5 7 10 Patient impression of improvement since last visit: No change No change No change 07/16/2023 10/26/2023 01/18/2024 HIT-6 HIT-6 46 (Little or no impact) 44 (Little or no impact) Incomplete 07/16/2023 10/26/2023 01/18/2024 KEYONNA - 2/7 SCORES KEYONNA-2 Score 1 0 0 07/16/2023 10/26/2023 01/18/2024 Migraine Specific QOL - Higher scores indicate better HRQL Role Function-Restrictive Transformed Score (range: 0-100) 91.43 88.57 91.43 Role Function-Preventive Transformed Score (range: 0-100) 95 100 100 Emotional Function Transformed Score (range: 0-100) 100 100 100 01/18/2024 10/26/2023 07/16/2023 PHQ-9 Score 2 3 2 BP 122/84 (BP Site: Left Arm, BP Position: Sitting, BP Cuff Size: Regular Adult) Pulse 69 Resp 16 LMP 05/06/2014 SpO2 98% Patient name: Marcial Yeung : 1965 ALLERGIES Allergen Reactions 2-Octyl Cyanoacryla* Rash Blistering contact reaction Citalopram Other: See Comments Did not tolerate, ? Mental status changes Liquid Bandage [Enb* Rash blisters and rash Propranolol Mental Status Change Tetracycline GI Upset Abdominal pain/cramping UNIVERSAL PROTOCOL / SAFETY CHECKLIST Procedure: Onabotulinum toxin A for migraine Informed Consent Consent Obtained: Written [place] Protocol A moment to CARE was completed SIGN IN Personnel directly involved with the procedure wore the appropriate PPE Special Equipment: N/A Patient/Surrogate Stated/Verified: Patient name, Date of , Relevant allergies and Intended procedure TIME OUT Intended patient and procedure match the source document(s) Consent documented and matches the intended procedure No relevant labs, photos, and/or imaging studies were applicable for review. No correct side/site applicable for marking and visibility. No medications required for procedure. No fire risk assessment and interventions applicable. No implant(s) inserted. SIGN OUT No specimen collected. No instruments, equipment or retained foreign bodies applicable. Post-procedure follow-up management communicated and Plan of Care Visit completed when applicable Written Consent Obtained: Written LOT #: [id number] Expiration Date: Month: 2 Year: 2025 Second vial: LOT #: [id number] Expiration Date: Month: 2 Year: 2025 Injection Sites Left (Units) Left (Sites) Right (Units) Right (Sites) TOTAL (Units) Pesticide Chemist 5 1 5 1 10 Procerus Units: 5 Sites: 1 5 Frontalis 10 2 10 2 20 Temporalis optional follow the pain 20 5 4 1 20 5 4 1 50 Occipitalis optional follow the pain 15 10 3 2 15 10 3 2 50 Cervical PSP 10 2 10 2 20 Trapezius optional follow the pain 15 7.5 3 2 15 7.5 3 2 45 Total Units used: 200 Total Units wasted: 0 Patient tolerated procedure well. Prior Therapies Duration of Use Dose Side effect Analgesic Hydrocodone/Acetaminophen (Vicodin, [place]) Hydromorphone (Dilaudid) Meloxicam (Mobic) Meperidine (Demerol) Oxycodone Oxycodone/Acetaminophen (Percocet) Tramadol (Ultram) Anti-Anxiety Lorazepam (Ativan) Anti-Convulsant Gabapentin (Neurontin) Topiramate (Topamax, Trokendi XL, Qudexy) Anti-Depressant and Antipsychotic Amitriptyline (Elavil) Bupropion (Wellbutrin) Citalopram (Celexa) Fluoxetine (Prozac) Venlafaxine (Effexor) Antiemetics Metoclopramide Ondansetron Prochlorperazine Promethazine Anti-Migraine Rizatriptan (Maxalt) Sumatriptan (Imitrex, Sumavel) Blood Pressure Metoprolol (Lopressor,Toprol XL) Propranolol (Inderal) GEPANTS Ubrogepant (Ubrelvy) Rimegepant (Nurtec) Botulinum Toxin Onabotulinum Toxin A (Botox) Muscle Relaxer Cyclobenzaprine (Flexeril) Sleep Aids Trazodone (Desyrel) Zolpidem (Ambien) Supplements Magnesium Other Medications Dexamethasone (Decadron) Prednisone Over the Counter Medications Acetaminophen (Tylenol) Acetaminophen/Aspirin/Caffeine (Excedrin, Goody s) Aspirin Ibuprofen (Advil, Motrin) Naproxen sodium (Aleve) Sharron Hollis APRN.ASBESTOS MICROSCOPIST documented in this encounterC[facility]04-19-2024 Miscellaneous Notes* Telephone Encounter - Geno Maria - 01/20/2024 9:09 AM EDT Physician: Call from pharmacy requesting refill. Please E-Scribe Last office visit 10/27/2023with Michel in person Next office visit 01/24/2024 with Sal Requested Prescriptions Pending Prescriptions Disp Refills rimegepant (NURTEC ODT) 75 mg disintegrating tablet [Pharmacy Med Name: NURTEC ODT 75 MG TABLET] 8 tablet 11 Sig: dissolve 1 tablet orally AT ONSET OF MIGRAINE and may repeat ONCE PER 24 HOURS IF NEEDED [facility] Name: [facility] documented in this encounterC[facility]04-01-2024 History of Present illness Narrative* Valorie Benoit PA-C - 01/02/2024 5:08 PM EDT This note was created using Cardio controlriter. Subjective Marcial Yeung is a 58 year old female. HPI Presents with worsening sinus pressure and congestion over the past 3 days. She has chronic nasal congestion and is on multiple nasal sprays and sees ENT and allergy. She states the past 3 days she has had worsening facial pain and pressure going into her teeth. When she bends over she gets a lot of pressure on the left side of her face. Her left ear is bothering her as well. She has had some sneezing. No fever. Minimal cough. She states she was around some family members who had influenza recently. She has not had any body aches or fever. No diarrhea or vomiting. She has been using a sinus pill [id number]. Review of Systems Constitutional: Negative. HENT: Positive for congestion, ear pain, postnasal drip, rhinorrhea, sinus pressure and sinus pain.Negative for ear discharge, sore throat and tinnitus. Respiratory: Positive for cough. Cardiovascular: Negative. Gastrointestinal: Negative. Genitourinary: Negative. Musculoskeletal: Negative. All other systems reviewed and are negative. 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 flecainide; indication: symptomatic PSVT with WPW syndrome Other anxiety states Palpitations Paroxysmal supraventricular tachycardia (HCC) see "WPW Syndrome" Primary insomnia 06/11/2015 Sinus tachycardia 10/20/2023 Stress incontinence, female Unspecified asthma(493.90) 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 90 tablet 3 traZODone (DESYREL) 50 mg tablet TAKE 1 AND 1/2 TABLETS BY MOUTH EVERY NIGHT AT BEDTIME 135 tablet 3 hhwpeksouljuj-[id number]-PF (REFRESH OPTIVE ADVANCED, PF,) 0.5-1-0.5 % dpet Use 1 Drop in eyes fourtimes a day as needed. [address] (PROTONIX) 40 mg tablet Take 1 tablet by mouth two times a day. 180 tablet 3 gabapentin (NEURONTIN) 100 mg capsule Take 1 capsule by mouth two times a day for 60 days. 60 capsule 1 ipratropium bromide (ATROVENT) 42 mcg (0.06 %) nasal spray Use 2 Sprays in the nose three times a day. 45 mL 3 levalbuterol tartrate HFA 45 mcg/actuation inhaler Inhale 1-2 Puffs as instructed every 4 hours as needed for wheezing/shortness of breath. 45 g 3 fexofenadine (LAURA ALLERGY) 180 mg tablet Take 1 tablet by mouth once daily. 90 tablet 3 tiZANidine (ZANAFLEX) 4 mg tablet Take 1 tablet by mouth every 8 hours as needed. prn 30 tablet 11 cephALEXin (KEFLEX) 250 mg capsule Take 250 mg by mouth once daily as needed (after intercourse). montelukast (SINGULAIR) 10 mg tablet metoprolol succinate ER (TOPROL XL) 50 mg 24 hr tablet Take 1 tablet by mouth once daily. 90 tablet2 ondansetron (ZOFRAN) 4 mg tablet take 1 tablet by mouth every 8 hours if needed for nausea and vomiting 30 tablet 1 ARNUITY ELLIPTA 200 mcg/actuation inhaler inhale 1 puff by mouth daily fluticasone (FLOVENT HFA) 110 mcg/actuation inhaler Inhale 1 Puff as instructed twice daily. Shake well before use. Rinse mouth after use. 1 Each 3 dicyclomine (BENTYL) 10 mg capsule Take 1 capsule by mouth three times daily. (Patient taking differently: Take 10 mg by mouth three times a day. prn) 90 capsule 2 rimegepant (NURTEC ODT) 75 mg disintegrating tablet Take 1 dissolvable tablet by mouth at migraine onset. May repeat once per 24 hours as needed. 8 tablet 11 phenazopyridine (PYRIDIUM, GERIDIUM) 200 mg tablet Take 200 mg by mouth three times a day as neededfor pain. prn cholestyramine (QUESTRAN) 4 gram packet take 1 packet ( 4 grams ) by mouth twice a day dissolve in 2 to 6 ounces OF WATER OR NONCARBONATED BEVERAGE with meals (Patient taking differently: as needed.)60 Packet 5 estradiol (NOBLE, VIVELLE-DOT) 0.025 mg/24 hr 1 Patch every Tuesday and Tuesday. amoxicillin-clavulanate potassium (AUGMENTIN) 875-125 mg per tablet Take 1 tablet by mouth two times a day for 7 days. 14 tablet 0 Ipratropium [place] (ATROVENT) 21 mcg (0.03 %) nasal spray Use 2 Sprays in the nose three times a day. 30 mL 5 albuterol HFA (PROVENTIL HFA, VENTOLIN HFA) 90 mcg/actuation inhaler Inhale 2 Puffs as instructed every 4 hours as needed. (Patient not taking: Reported on 12/12/2023) 1 Each 1 No current facility-administered medications for this visit. PAST SURGICAL HISTORY Procedure Laterality Date BLADDER SURGERY HX 11/2015 bladder sling BREAST AUGMENTATION WITH IMPLANT 11/2007 Breast augmentation CARDIAC MONITORING CONTINUOUS 05/25/2018 96 hours monitoring: sinus rhythm, sinus tachycardia; patient event activations and/or reported symptoms correlated with sinus rhythm and sinus tachycardia DELIVERY ONLY 85, 88,92 , low cervical X3 COLONOSCOPY 06/2021 EGD 2019 F LIGATION OF HEMORRHOID(S) 10/07/2020 IUD INSERTION ([facility])_*FL 08/30/2007 Mirena - removed LAPAROSCOPY SURG CHOLECYSTECTOMY 11/16/2017 [facility] OOPHORECTOMY, PART/TOTAL UNILAT/BILAT 2016 PAST SURGICAL HISTORY OF 09/2021 C4-C6 disc replacement S PK LAVH [id number] 2013 lavh RICKY biltareal salpingectomy SVT ABLATION W/ EP COMPLETE 11/24/2016 [facility], Dr. Mcknight; right midseptal AP unable to be ablated despite cryoablation and RF ablation attempts; AP described as not having capability for extremely rapid antegrade conduction SVT ABLATION W/ EP COMPLETE 03/28/2018 left posteroseptal AP just within the proximal CS; Stereotaxis RF with Carto guidance, successful elimination of AP conduction; no SVT inducible pre- or post-ablation; [facility] Dr. Luong TONSILLECTOMY & ADENOIDECTOMY <AGE 13 1968 VAGINAL HYSTERECTOMY FAMILY HISTORY Problem Relation Age of Onset Thyroid Mother goiter other (Palpitations) Mother Asthma Father Asthma Son other (Palpitations) Son Thyroid Maternal Grandmother goiter other (Other) Maternal Grandfather young in MVA Emphysema Paternal Grandmother Heart Failure Paternal Grandmother other (tobacco use) Paternal Grandmother Heart disease Paternal Grandfather had a heart attack and at young age Stroke Paternal Grandfather Prostate Cancer Paternal Grandfather Asthma Daughter other (Brain tumor) Daughter benign Seizures Brother Heart Brother WPW syndrome; ablation unsuccessful -- too close to AV node other (Other) Other no unexplained sudden , crib deaths, unexplained syncope Social History Tobacco Use Smoking status: Never Smokeless tobacco: Never Vaping Use Vaping Use: Never used Substance Use Topics Alcohol use: Yes Comment: occasionally Drug use: No Objective BP 110/90 Pulse 84 Temp 36.8 C (98.2 F) Resp 21 Wt 67.7 kg (149 lb 4 oz) LMP 05/06/2014 SpO2 98% BMI 27.30 kg/m Physical Exam Vitals reviewed. Constitutional: Appearance: Normal appearance. HENT: Head: Normocephalic and atraumatic. Right Ear: Tympanic membrane, ear canal and external ear normal. Left Ear: Tympanic membrane, ear canal and external ear normal. Nose: Left Sinus: Maxillary sinus tenderness and frontal sinus tenderness present. Mouth/Throat: Lips: [place]. Mouth: Mucous membranes are moist. Pharynx: Oropharynx is clear. Cardiovascular: Rate and Rhythm: Normal rate and regular rhythm. Heart sounds: Normal heart sounds. Pulmonary: Effort: Pulmonary effort is normal. Breath sounds: Normal breath sounds. Musculoskeletal: Cervical back: Neck supple. Lymphadenopathy: Cervical: No cervical adenopathy. Skin: General: Skin is warm and dry. Findings: No rash. Neurological: Mental Status: She is alert. Assessment and Plan ASSESSMENT/PLAN: 1. Sinus congestion - ICD9: 478.19, ICD10: R09.81 Patient has chronic congestion and has had worsening symptoms for about 3 days on the left frontal and maxillary sinuses. Discussed with her possibility of new URI the past few days however difficultto completely exclude bacterial sinusitis. Recommended continuing nasal sprays and plain Mucinex over the next 2 to 3 days, if not improving I did provide Augmentin that she can fill at that time. Patient voiced agreements with plan. Valorie Benoit PA-C documented in this encounterC[facility]04-01-2024 Miscellaneous Notes* Telephone Encounter - Corinne Fairchild MA - 01/02/2024 2:41 PM EDT Pharmacy electronically requests the following refill(s) Requested Prescriptions Pending Prescriptions Disp Refills magnesium oxide (MAG-OX) 400 mg (241.3 mg magnesium) tablet [Pharmacy Med Name: MAGNESIUM OXIDE 400MG TABLET] 90 tablet 3 Sig: Take 1 tablet by mouth once daily. Corinne Fairchild MA Last office visit 11/29/2023 Future office visit 2024 documented in this encounterCleveland [facility]03-11-2024 History of Present illness Narrative* Werner Murrell, PhD, [facility] [employer] - 12/12/2023 1:00 PM EDT [facility] Werner Murrell, Ph.D NAME: Marcial Yeung [facility] NO: [id number] DATE OF SERVICE: December 12, 2023 IMPRESSION AND PLAN: Consultation requested by Dr. Logan for evaluation. Marcial Yeung is a 58 year old female with complaints of sensitivity to strong smells that trigger PVCs, hoarseness, difficulty breathing, and sensation of throat swelling. Onset in October 2022 after an upper respiratory infection. She also reports difficulty swallowing from a cervical spine surgery, and frequent GERD symptoms with night time awakenings. Her laryngeal exam shows bilateral vocal fold edema, a right vocal fold ectasia and vocal tremor more evident on the exhalation part of the breathing cycle. No evidence of inducible laryngeal obstruction. Hoarseness is secondary to vocal tremor and muscle tension dysphonia. Recommendations: Aggressive reflux control for trial period of 6 weeks to determine if GERD is playing a role in herlaryngeal hypersensitivity. If this does not improve hypersensitivity, a course of neuromodulators can be considered (she just started on Gabapentin 100 mg) Modified barium swallow study to evaluate swallow function. Consider course of voice therapy for voice improvement. Contact me in 6 weeks to report progress. HISTORY OF PRESENT PROBLEM: Parts of the history are taken from Dr. Logan's notes. A review of the EMR was independently confirmed with the patient in this visit. Marcial Yeung is a 58 year old female with a history of significant hoarseness and difficulty breathing in with exposure to strong smells, fragrances as well as change in temperature and humidity. 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 When exposed she notices more PVCs, difficulty breathing in, coughing and hoarseness. Symptoms last a few hours. She believes her breathing has not been back to baseline since October 2022 after an upper respiratory infection. Frequently wakes up coughing and occasionally choking. She reports heartburn a few times a week. Sometimes regurgitation in the morning. History of GERD. On Pantoprazole 40 mg at bedtime. She had a cervical spine surgery C 4-6 with a frontal approach. Since then she has been having neckpain, difficulty swallowing both solids and liquids, and cough. Has not had a swallow study. She has a history of frequent premature ventricular contractions, chronic postnasal drip, Sdoke-Tznfzcnho-Inxci status post ablation. She is tolerating beta-vernon but notes persistent bouts of PVCsespecially triggering from coughing episodes. She had concerns about underlying allergies had been e valuated by ENT in the past as well as allergy in the dining area and was on immunotherapy short-term but did not feel significant improvement She notes recurring episodes of sinus infection and bronchitis. She notes fairly prolonged recoveryfrom COVID which she is experienced multiple times. She has not received the COVID-vaccine and is reluctant to pursue this. Reflux Symptom Index (RSI): This questionnaire assesses the patient's perception of the severity of reflux related symptoms. (Rank as follows: 0=no problem; 3=moderate problem; 5=severe problem Within last month how did following problems affect you? Hoarseness or a problem with your voice. 4 2. Clearing your throat? 5 3. Excess throat mucous or postnasal drip? 5 4. Difficulty swallowing food, liquids or pills? 4 5. Coughing after you ate or after lying down? 4 6. Breathing difficulties or choking episodes? 4 7. Troublesome or annoying cough? 5 8. Sensations of something sticking in your throat or a lump in your throat? 4 9. Heartburn, chest pain, indigestion or stomach acid coming up? 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; indication: symptomatic PSVT with WPW syndrome Other anxiety states Palpitations Paroxysmal supraventricular tachycardia (HCC) see "WPW Syndrome" Primary insomnia 06/11/2015 Sinus tachycardia 10/20/2023 Stress incontinence, female Unspecified asthma(493.90) 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 ipratropium bromide (ATROVENT) 42 mcg (0.06 %) nasal spray Use 2 Sprays in the nose three times a day. LORazepam (ATIVAN) 0.5 mg Take 1 tablet by mouth once daily as needed for up to 30 days. Ipratropium [place] (ATROVENT) 21 mcg (0.03 %) nasal spray Use 2 Sprays in the nose three times a day. levalbuterol tartrate HFA 45 mcg/actuation inhaler Inhale 1-2 Puffs as instructed every 4 hours as needed for wheezing/shortness of breath. fexofenadine (LAURA ALLERGY) 180 mg tablet Take 1 tablet by mouth once daily. tiZANidine (ZANAFLEX) 4 mg tablet Take 1 tablet by mouth every 8 hours as needed. prn cephALEXin (KEFLEX) 250 mg capsule Take 250 mg by mouth once daily as needed (after intercourse). montelukast (SINGULAIR) 10 mg tablet metoprolol succinate ER (TOPROL XL) 50 mg 24 hr tablet Take 1 tablet by mouth once daily. ondansetron (ZOFRAN) 4 mg tablet take 1 tablet by mouth every 8 hours if needed for nausea and vomiting ARNUITY ELLIPTA 200 mcg/actuation inhaler inhale 1 puff by mouth daily fluticasone (FLOVENT HFA) 110 mcg/actuation inhaler Inhale 1 Puff as instructed twice daily. Shake well before use. Rinse mouth after use. pantoprazole DR (PROTONIX) 40 mg tablet Take 1 tablet by mouth once daily. (Patient taking differently: Take 40 mg by mouth once daily. prn) dicyclomine (BENTYL) 10 mg capsule Take 1 capsule by mouth three times daily. (Patient taking differently: Take 10 mg by mouth three times a day. prn) rimegepant (NURTEC ODT) 75 mg disintegrating tablet Take 1 dissolvable tablet by mouth at migraine onset. May repeat once per 24 hours as needed. traZODone (DESYREL) 50 mg tablet take 1 AND 1/2 tablets by mouth at bedtime (Patient taking differently: take 1 AND 1/2 tablets by mouth at bedtime prn) magnesium oxide (MAG-OX) 400 mg (241.3 mg magnesium) tablet Take 1 tablet by mouth once daily. phenazopyridine (PYRIDIUM, GERIDIUM) 200 mg tablet Take 200 mg by mouth three times a day as neededfor pain. prn cholestyramine (QUESTRAN) 4 gram packet take 1 packet ( 4 grams ) by mouth twice a day dissolve in 2 to 6 ounces OF WATER OR NONCARBONATED BEVERAGE with meals (Patient taking differently: as needed.) estradiol (NOBLE, VIVELLE-DOT) 0.025 mg/24 hr 1 Patch every Tuesday and Tuesday. albuterol HFA (PROVENTIL HFA, VENTOLIN HFA) 90 mcg/actuation inhaler Inhale 2 Puffs as instructed every 4 hours as needed. (Patient not taking: Reported on 12/12/2023) No current facility-administered medications on file prior to visit. PROCEDURE: The patient was sprayed with 2% lidocaine and 1% phenylephrine. After an approximate amount of timefor vasoconstriction and anesthesia to be achieved, a flexible fiberoptic laryngoscope was insertedinto the nasal cavity, nasopharynx, down to the oropharynx. A laryngeal function study which included videoendoscopy with stroboscopy was performed. FINDINGS: Findings revealed that [facility] History of Present illness Narrative* Mahendra Kunz MD - 12/09/2023 2:01 PM EST CONSULT ORTHOPAEDIC: HIP PRIMARY CARE PHYSICIAN: James Harry DO REFERRING PROVIDER: James Harry [address] [place] [id number] ASSESSMENT & PLAN This is a 58-year-old female presents with bilateral hip pain right greater than left. Her pain been going on for 3 years. Her pain is mostly on the lateral aspect of the hip as well as in her groin.She feels it mostly when going up and down steps while sleeping. Feels the pain is throbbing and affects her day-to-day life. It is worse on the right but also occurs on the left. She has undergone anumber of treatment regimens with no relief. She is undergoing a right hip troches bursal injectionon both sides with no relief from her pain and actually made it worse. Is also undergone a supervised physical therapy program more than once with no improvement in her pain she is also taken Mobic Advil gabapentin and other medications for her hip with no resolution of her symptoms. Impression: Bilateral hip pain right greater than left possible labral tear versus gluteal tendon tear of the right hip. Given the patient has negative x-rays for degenerative findings or narrowing of the joint and has exhausted conservative treatment in the form of medication including Mobic Advil gabapentin as well as physical therapy and steroid injections we will pursue MRI of the right hip to look for underlyingetiology is causing the pain. I suspect a possible gluteal tendon tear versus labral tear MRI is ordered we will follow-up with her after the MRI is completed. Diagnoses: (M25.551) Pain of right hip (primary encounter diagnosis) (M25.551, M25.552) Bilateral hip pain Area Deprivation Index (PETEY) PETEY Score 04/13/2022 03/04/2023 National Score 65 68 Patient Health Questionnaire (PHQ-9) PHQ-9 07/16/2023 10/26/2023 12/06/2023 PHQ-2 Score 0 0 0 PHQ-9 Score 2 3 - (0-4) minimal depression, (5-9) mild depression, (10-14) moderate depression, (15-19) moderately severe depression, (20-27) severe depression Bone Density Risk Screen Marcial Yeung is low risk for bone loss based on her age and having no previous diagnoses of osteopenia, osteoporosis, Paget's disease of bone, or cancer of bone. Other risk factors are listed below to determine if they pose a significant risk for bone loss, andif so, recommend ordering a bone densitometry and, upon receiving a result, as needed, order a consult to a bone health specialist (Rheumatology, Endocrinology, or Women's Health) for bone assessment. Risk Factors: Use of Proton Pump Inhibitors Prednisone or use of systemic steroids Additional Risk Factors [facility] score NARX Narcotics: 170 (12/09/2023 1:30 PM) Malnutrition: No Malnutrition Screening Tool (MST) score on file- please complete the MST screeningtool (click here to open) and refresh the note. 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 (Qmwwy-Jsuhufysy-Uozpg Syndrome) Gastro-Esophageal Reflux Disease Without Esophagitis Chronic Sinusitis, Unspecified Benign Neoplasm of Unspecified Ovary Asymptomatic Menopausal State Anxiety Disorder, Unspecified Acquired Absence of Both Cervix and Uterus Paroxysmal Supraventricular Tachycardia (Hcc) Palpitations Status Post Ablation of Accessory Bypass Tract Dyspareunia Chronic Mixed Headache Syndrome Chronic Migraine Without Aura, With Intractable Migraine, So Stated, With Status Migrainosus Intractable Chronic Migraine Without Aura and Without Status Migrainosus Chronic Daily Headache Musculoskeletal Pain Cervicalgia Chronic Tension-Type Headache, Intractable Reflux Esophagitis Intractable Chronic Migraine Without Aura and With Status Migrainosus Internal Hemorrhoids Migraine Without Aura and Without Status Migrainosus, Not Intractable Bilateral Occipital Neuralgia History of Fusion of Cervical Spine Irritable Bowel Syndrome With Diarrhea Sinus Tachycardia Chronic Migraine Without Aura, Intractable, Without Status Migrainosus Mild Persistent Asthma Without Complication Allergic Conjunctivitis, Bilateral Chronic Rhinitis Pvc (Premature Ventricular Contraction) Vasomotor Rhinitis 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Ilo) Allergic Contact Dermatitis Due to Adhesives SUBJECTIVE CHIEF COMPLAINT: Hip Pain HPI: Marcial Yeung is a 58 year old patient with the presenting complaint of Right Hip Pain of the Right Hip. Marcial Yeung has had progressive problems with the hip(s) most of the day over the past 3 year(s) interfering with activities which include walking 2 blocks, getting in and out of a car, and climbing stairs. The problem began limiting activities 3+ years ago. Marcial reports a current pain level of ( ). She describes the pain as . The pain is , and has lasted for . Interventions tried include . . PROMIS Physical Function Score PROMIS CAT Physical Function 12/06/2023 T-Score 49 (within normal limits) Percentile 46 FUNCTIONAL STATUS: Do moderate work around the house such as vacuuming, sweeping floors, or carrying in groceries (3.50 METs) Do yardwork, such as raking leaves, weeding,or pushing a power mower (4.50 METs) PREVIOUS TREATMENTS: Past anti-inflammatory medications (not necessarily for this reason for visit): amitriptyline HCl, dexamethasone, dexamethasone sodium phosphate, ibuprofen, meloxicam, naproxen, naproxen sodium, prednisone, triamcinolone acetonide NSAID medication, corticosteroid injections, physical therapy, REVIEW OF SYSTEMS: GENERAL: Denies fever, chills malaise and weight loss.. PAIN ASSESSMENT: See HPI. CARDIOVASCULAR: Denies chest pain, history of A-fib, valvular disease, hypertension, CHF or pacemaker/ICD.. RESPIRATORY: Denies SOB, sputum production, dyspnea, COPD and hemoptysis.. GI: Denies GI ulcers, inflammatory disease, ascites or liver disease.. MUSCULOSKELETAL: See HPI. NEURO: Denies CVA, seizures, headaches.. ENDOCRINE: Denies diabetes, thyroid disease.. Malnutrition Screening Tool (MST) 03/28/2018 Lost Weight Recently Without Trying? 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 flecainide; indication: symptomatic PSVT with WPW syndrome Other anxiety states Palpitations Paroxysmal supraventricular tachycardia (HCC) see "WPW Syndrome" Primary insomnia 06/11/2015 Sinus tachycardia 10/20/2023 Stress incontinence, female Unspecified asthma(493.90) 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; attempt at catheter ablation 11/2016 failed; she continues to experience intermittent palpitations and tachycardia despite treatment with flecainide; successful RFCA 03/2018 PAST SURGICAL HISTORY Procedure Laterality Date BLADDER SURGERY HX 11/2015 bladder sling BREAST AUGMENTATION WITH IMPLANT 11/2007 Breast augmentation CARDIAC MONITORING CONTINUOUS 05/25/2018 96 hours monitoring: sinus rhythm, sinus tachycardia; patient event activations and/or reported symptoms correlated with sinus rhythm and sinus tachycardia DELIVERY ONLY 85, 88,92 , low cervical X3 COLONOSCOPY 06/2021 EGD 2019 F LIGATION OF HEMORRHOID(S) 10/07/2020 IUD INSERTION ([facility])_*FL 08/30/2007 Mirena - removed LAPAROSCOPY SURG CHOLECYSTECTOMY 11/16/2017 [facility] OOPHORECTOMY, PART/TOTAL UNILAT/BILAT 2016 PAST SURGICAL HISTORY OF 09/2021 C4-C6 disc replacement S PK LAV[facility] [id number] 2014 lavh RICKY biltareal salpingectomy SVT ABLATION W/ EP COMPLETE 11/24/2016 [facility], Dr. Mcknight; right midseptal AP unable to be ablated despite cryoablation and RF ablation attempts; AP described as not having capability for extremely rapid antegrade conduction SVT ABLATION W/ EP COMPLETE 03/28/2018 left posteroseptal AP just within the proximal CS; Stereotaxis RF with Carto guidance, successful elimination of AP conduction; no SVT inducible pre- or post-ablation; [facility] Dr. Luong TONSILLECTOMY & ADENOIDECTOMY <AGE 13 1969 VAGINAL HYSTERECTOMY FAMILY HISTORY Problem Relation Age of Onset Thyroid Mother goiter other (Palpitations) Mother Asthma Father Asthma Son other (Palpitations) Son Thyroid Maternal Grandmother goiter other (Other) Maternal Grandfather young in MVA Emphysema Paternal Grandmother Heart Failure Paternal Grandmother other (tobacco use) Paternal Grandmother Heart disease Paternal Grandfather had a heart attack and at young age Stroke Paternal Grandfather Prostate Cancer Paternal Grandfather Asthma Daughter other (Brain tumor) Daughter benign Seizures Brother Heart Brother WPW syndrome; ablation unsuccessful -- too close to AV node other (Other) Other no unexplained sudden , crib deaths, unexplained syncope Social History Tobacco Use Smoking status: Never Smokeless tobacco: Never Vaping Use Vaping Use: Never used Substance Use Topics Alcohol use: Yes Comment: occasionally Drug use: No ALLERGIES: 2-Octyl Cyanoacrylate, Citalopram, Liquid Bandage [Enbucrilate], Propranolol, and Tetracycline MEDICATIONS: ipratropium bromide (ATROVENT) 42 mcg (0.06 %) nasal spray Use 2 Sprays in the nose three times a day. LORazepam (ATIVAN) 0.5 mg Take 1 tablet by mouth once daily as needed for up to 30 days. Ipratropium [place] (ATROVENT) 21 mcg (0.03 %) nasal spray Use 2 Sprays in the nose three times a day. levalbuterol tartrate HFA 45 mcg/actuation inhaler Inhale 1-2 Puffs as instructed every 4 hours as needed for wheezing/shortness of breath. fexofenadine (LAURA ALLERGY) 180 mg tablet Take 1 tablet by mouth once daily. tiZANidine (ZANAFLEX) 4 mg tablet Take 1 tablet by mouth every 8 hours as needed. prn cephALEXin (KEFLEX) 250 mg capsule Take 250 mg by mouth once daily as needed (after intercourse). montelukast (SINGULAIR) 10 mg tablet metoprolol succinate ER (TOPROL XL) 50 mg 24 hr tablet Take 1 tablet by mouth once daily. ondansetron (ZOFRAN) 4 mg tablet take 1 tablet by mouth every 8 hours if needed for nausea and vomiting ARNUITY ELLIPTA 200 mcg/actuation inhaler inhale 1 puff by mouth daily fluticasone (FLOVENT HFA) 110 mcg/actuation inhaler Inhale 1 Puff as instructed twice daily. Shake well before use. Rinse mouth after use. pantoprazole DR (PROTONIX) 40 mg tablet Take 1 tablet by mouth once daily. (Patient taking differently: Take 40 mg by mouth once daily. prn) dicyclomine (BENTYL) 10 mg capsule Take 1 capsule by mouth three times daily. (Patient taking differently: Take 10 mg by mouth three times a day. prn) rimegepant (NURTEC ODT) 75 mg disintegrating tablet Take 1 dissolvable tablet by mouth at migraine onset. May repeat once per 24 hours as needed. traZODone (DESYREL) 50 mg tablet take 1 AND 1/2 tablets by mouth at bedtime (Patient taking differently: take 1 AND 1/2 tablets by mouth at bedtime prn) magnesium oxide (MAG-OX) 400 mg (241.3 mg magnesium) tablet Take 1 tablet by mouth once daily. albuterol HFA (PROVENTIL HFA, VENTOLIN HFA) 90 mcg/actuation inhaler Inhale 2 Puffs as instructed every 4 hours as needed. estradiol (NOBLE, VIVELLE-DOT) 0.025 mg/24 hr 1 Patch every Tuesday and Tuesday. gabapentin (NEURONTIN) 100 mg capsule Take 1 capsule by mouth two times a day for 60 days. phenazopyridine (PYRIDIUM, GERIDIUM) 200 mg tablet Take 200 mg by mouth three times a day as neededfor pain. prn cholestyramine (QUESTRAN) 4 gram packet take 1 packet ( 4 grams ) by mouth twice a day dissolve in 2 to 6 ounces OF WATER OR NONCARBONATED BEVERAGE with meals (Patient taking differently: as needed.) OBJECTIVE PHYSICAL EXAM Ht 157.5 cm (5' 2") Wt 66.7 kg (147 lb) LMP 05/06/2014 BMI 26.89 kg/m All other systems deferred. GENERAL: Appears healthy, well-nourished, no deformities. HABITUS: Normal GAIT: Antalgic to the right HIP EXAM: Left: ROM: Extension: full extension Flexion: 100 degrees Internal Rotation: 15 degrees External Rotation: 30 degrees Abduction: 30 degrees Adduction: 15 degrees Strength: Abduction 5/5 and Flexion 5/5 Palpation: Tenderness over greater trochanter Log roll: non-painful. Straight leg raise: Positive, reproducing hip symptoms Neurovascular Status: Sensation Intact, Moves foot and ankle up & down, and 2+ dorsalis pedis Right: ROM: Extension: full extension Flexion: 100 degrees Internal Rotation: 15 degrees External Rotation: 25 degrees Abduction: 30 degrees Adduction: 15 degrees Strength: Abduction 5/5 and Flexion 5/5 Palpation: Tenderness over right greater trochanter and groin Pain with impingement maneuver of the hip Log roll: non-painful. Straight leg raise: Negative Neurovascular Status: Sensation Intact, Moves foot and ankle up & down, and 2+ dorsalis pedis DATA: Most recent hip imaging was completed on 12/09/2023 (XR HIP BILATERAL 5V PEL/AP/LAT EACH HIP) . Diagnostic tests reviewed for today's visit: Right hip X-Ray: No abnormalities Left hip X-Ray: No abnormalities The following conditions were addressed during the office visit today: I spent a total of approximately 25 minutes on the date of the service which included preparing to see the patient, [id number] patient care, completing clinical documentation, obtaining and/or reviewing separately obtained history, performing a medically appropriate examination, counseling and educating the patient/family/caregiver, ordering medications, tests, or procedures, independently interpreting results (not separately reported), communicating results to the patient/family/caregiver, and care coordination (not separately reported). SIGNATURE: Mahendra Kunz MD PATIENT NAME: Marcial Yeung DATE: December 09, 2023 TIME: 2:01 PM documented [facility] History of Present illness Narrative* James Harry, - 11/29/2023 2:35 PM EST Periodic Health Examination Patient Name: Marcial Yeung Today's Date: November 29, 2023 CC: Wellness exam HPI: Marcial Yeung is an 58 year old female who presents for: Wellness exam Medical, surgical, family and social histories reviewed and updated below. Would like to discuss her lab results Seeing cardiology for palpitations Admits to having increased sensitivity to certain smells that stopped after getting sick. States ittriggers her palpitations. Currently on a BB. Has f/u with cardiology scheduled. Having bilateral hip pains- states it "hurts worse" despite getting injections Hurts to go up steps Interested in a breast/skin cancer screenings today. Admits to tanning bed usage and frequent sun tanning when she can. Sees [facility]- on HRT s/p hysterectomy Component Latest Ref Rng & Units 06/01/2023 10/11/2023 11/23/2023 WBC 3.70 - 11.00 k/uL 10.17 9.06 RBC 3.90 - 5.20 m/uL 4.85 4.72 Hemoglobin 11.5 - 15.5 g/dL 14.0 13.8 Hematocrit 36.0 - 46.0 % 43.5 43.8 MCV 80.0 - 100.0 fL 89.7 92.8 MCH 26.0 - 34.0 pg 28.9 29.2 MCHC 30.5 - 36.0 g/dL 32.2 31.5 RDW-CV 11.5 - 15.0 % 13.4 14.3 Platelet Count 150 - 400 k/uL 395 394 MPV 9.0 - 12.7 fL 10.4 10.6 Neut% % 63.9 Abs Neut (ANC) 1.45 - 7.50 k/uL 5.78 Lymph% % 27.8 Abs Lymph 1.00 - 4.00 k/uL 2.52 [place]% % 7.3 Abs [place] <0.87 k/uL 0.66 Eosin% % 0.3 Abs Eosin <0.46 k/uL 0.03 Baso% % 0.3 Abs Baso <0.11 k/uL 0.03 Immature Gran % % 0.4 IMMATURE GRANS (ABS) <0.10 k/uL 0.04 NRBC /100 WBC 0.0 Absolute nRBC <0.01 k/uL <0.01 <0.01 DTYPE Auto Protein, Total 6.3 - 8.0 g/dL 7.7 7.7 Albumin 3.9 - 4.9 g/dL 5.2 (H) 4.9 Calcium 8.5 - 10.2 mg/dL 10.5 (H) 10.1 Bilirubin, Total 0.2 - 1.3 mg/dL 0.4 0.3 Alkaline Phosphatase 34 - 123 U/L 68 64 AST 13 - 35 U/L 16 23 ALT 7 - 38 U/L 21 21 Glucose 74 - 99 mg/dL 94 75 BUN 7 - 21 mg/dL 21 15 Creatinine 0.58 - 0.96 mg/dL 0.97 (H) 0.75 Sodium 136 - 144 mmol/L 138 141 Potassium 3.7 - 5.1 mmol/L 5.1 4.3 Chloride 97 - 105 mmol/L 102 103 CO2 22 - 30 mmol/L 24 24 Anion Gap 9 - 18 mmol/L 12 14 eGFR >=60 mL/min/1.73m 69 93 COVID 19 Result See comment Not detected Influenza A PCR Not Detected Not detected Influenza B PCR Not Detected Not detected RSV PCR Not Detected Not detected TSH 0.270 - 4.200 mIU/L 1.990 IgA 70 - 400 mg/dL 137 IgE <114.0 kU/l 4.2 IgG 700 - 1,600 mg/dL 876 Diphtheria Ab IU/mL 1.4 Tetanus Ab, IgG IU/mL 1.9 IgM 40 - 230 mg/dL 125 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 flecainide; indication: symptomatic PSVT with WPW syndrome Other anxiety states Palpitations Paroxysmal supraventricular tachycardia (HCC) see "WPW Syndrome" Sinus tachycardia 10/20/2023 Stress incontinence, female Unspecified asthma(493.90) 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; attempt at catheter ablation 11/2016 failed; she continues to experience intermittent palpitations and tachycardia despite treatment with flecainide; successful RFCA 03/2018 PAST SURGICAL HISTORY Procedure Laterality Date BLADDER SURGERY HX 11/2015 bladder sling BREAST AUGMENTATION WITH IMPLANT 11/2007 Breast augmentation CARDIAC MONITORING CONTINUOUS 05/25/2018 96 hours monitoring: sinus rhythm, sinus tachycardia; patient event activations and/or reported symptoms correlated with sinus rhythm and sinus tachycardia DELIVERY ONLY 85, 88,92 , low cervical X3 COLONOSCOPY 06/2021 EGD 2019 F LIGATION OF HEMORRHOID(S) 10/07/2020 IUD INSERTION ([facility])_*FL 08/30/2007 Mirena - removed LAPAROSCOPY SURG CHOLECYSTECTOMY 11/16/2017 [facility] OOPHORECTOMY, PART/TOTAL UNILAT/BILAT 2016 PAST SURGICAL HISTORY OF 09/2021 C4-C6 disc replacement S PK LAV[facility] [id number] 2013 lavh RICKY biltareal salpingectomy SVT ABLATION W/ EP COMPLETE 11/24/2016 [facility], Dr. Mcknight; right midseptal AP unable to be ablated despite cryoablation and RF ablation attempts; AP described as not having capability for extremely rapid antegrade conduction SVT ABLATION W/ EP COMPLETE 03/28/2018 left posteroseptal AP just within the proximal CS; Stereotaxis RF with Carto guidance, successful elimination of AP conduction; no SVT inducible pre- or post-ablation; [facility] Dr. Luong TONSILLECTOMY & ADENOIDECTOMY <AGE 13 1969 VAGINAL HYSTERECTOMY Current Outpatient Medications Medication Sig Dispense Refill Ipratropium [place] (ATROVENT) 21 mcg (0.03 %) nasal spray Use 2 Sprays in the nose three times a day. 30 mL 5 levalbuterol tartrate HFA 45 mcg/actuation inhaler Inhale 1-2 Puffs as instructed every 4 hours as needed for wheezing/shortness of breath. 45 g 3 fexofenadine (LAURA ALLERGY) 180 mg tablet Take 1 tablet by mouth once daily. 90 tablet 3 tiZANidine (ZANAFLEX) 4 mg tablet Take 1 tablet by mouth every 8 hours as needed. prn 30 tablet 11 cephALEXin (KEFLEX) 250 mg capsule Take 250 mg by mouth once daily as needed (after intercourse). montelukast (SINGULAIR) 10 mg tablet metoprolol succinate ER (TOPROL XL) 50 mg 24 hr tablet Take 1 tablet by mouth once daily. 90 tablet2 ondansetron (ZOFRAN) 4 mg tablet take 1 tablet by mouth every 8 hours if needed for nausea and vomiting 30 tablet 1 ARNUITY ELLIPTA 200 mcg/actuation inhaler inhale 1 puff by mouth daily fluticasone (FLOVENT HFA) 110 mcg/actuation inhaler Inhale 1 Puff as instructed twice daily. Shake well before use. Rinse mouth after use. [address] (PROTONIX) 40 mg tablet Take 1 tablet by mouth once daily. (Patient taking differently: Take 40 mg by mouth once daily. prn) 30 tablet 5 dicyclomine (BENTYL) 10 mg capsule Take 1 capsule by mouth three times daily. (Patient taking differently: Take 10 mg by mouth three times a day. prn) 90 capsule 2 rimegepant (NURTEC ODT) 75 mg disintegrating tablet Take 1 dissolvable tablet by mouth at migraine onset. May repeat once per 24 hours as needed. 8 tablet 11 traZODone (DESYREL) 50 mg tablet take 1 AND 1/2 tablets by mouth at bedtime (Patient taking differently: take 1 AND 1/2 tablets by mouth at bedtime prn) 135 tablet 3 magnesium oxide (MAG-OX) 400 mg (241.3 mg magnesium) tablet Take 1 tablet by mouth once daily. 90 tablet 3 albuterol HFA (PROVENTIL HFA, VENTOLIN HFA) 90 mcg/actuation inhaler Inhale 2 Puffs as instructed every 4 hours as needed. 1 Each 1 phenazopyridine (PYRIDIUM, GERIDIUM) 200 mg tablet Take 200 mg by mouth three times a day as neededfor pain. prn cholestyramine (QUESTRAN) 4 gram packet take 1 packet ( 4 grams ) by mouth twice a day dissolve in 2 to 6 ounces OF WATER OR NONCARBONATED BEVERAGE with meals (Patient taking differently: as needed.)60 Packet 5 estradiol (NOBLE, VIVELLE-DOT) 0.025 mg/24 hr 1 Patch every Tuesday and Tuesday. No current facility-administered medications for this visit. FamHx: Reviewed FAMILY HISTORY Problem Relation Age of Onset Thyroid Mother goiter other (Palpitations) Mother Asthma Father Asthma Son other (Palpitations) Son Thyroid Maternal Grandmother goiter other (Other) Maternal Grandfather young in MVA Emphysema Paternal Grandmother Heart Failure Paternal Grandmother other (tobacco use) Paternal Grandmother Heart disease Paternal Grandfather had a heart attack and at young age Stroke Paternal Grandfather Prostate Cancer Paternal Grandfather Asthma Daughter other (Brain tumor) Daughter benign Seizures Brother Heart Brother WPW syndrome; ablation unsuccessful -- too close to AV node other (Other) Other no unexplained sudden , crib deaths, unexplained syncope SocHx: Reviewed Social History Tobacco Use Smoking status: Never Smokeless tobacco: Never Vaping Use Vaping Use: Never used Substance Use Topics Alcohol use: Yes Comment: occasionally Drug use: No Health Maintenance reviewed REVIEW OF SYSTEMS See HPI PHYSICAL EXAM BP 120/68 Pulse 106 Ht 157.5 cm (5' 2") Wt 65.8 kg (145 lb) LMP 05/06/2014 SpO2 99% BMI26.52 kg/m Gen: Patient is pleasant, alert, and in no acute distress Head: Normocephalic, atraumatic Eyes: LIN, EOMI, sclera anicteric ENT: No nasal discharge, no pharyngeal erythema or exudate Neck: Supple, no lymphadenopathy, no thyromegaly CV: Regular rate and rhythm, normal S1/S2, no murmurs, rubs, or gallops Pulm: Clear to auscultation bilaterally, no wheezes, crackles, or rhonchi Abd: Soft, non-tender, non-distended. No masses or organomegaly Neuro: CN III-XII intact, no involuntary movements. Strength 5/5 upper and lower extremities. Sensation intact bilaterally. Extrem: No cyanosis, clubbing, or edema Skin: Warm, dry, no visible rashes, scattered melanocytic nevi and hypopigmented macules over the neck, trunk, and b/l UEs/LEs. Few fleshy papules over the trunk and RLE. No suspicious lesions appreciated. BREASTS: Symmetrical to inspection., implants present bilaterally, No dimpling or skin changes., dense consistency, no palpable masses., Normal nipples without discharge., No axillary lymphadenopathy. Patient declined supervisor rose grading ASSESSMENT & PLAN 58 year old female here ASSESSMENT/PLAN: 1. Wellness examination - ICD9: V70.0, ICD10: Z00.00 (primary diagnosis) - Counseled on healthy diet and regular exercise - Follow up for annual exam in one year 2. Anxiety - ICD9: 300.00, ICD10: F41.9 PDMP website checked and validated. All prescriptions have been APPROPRIATELY filled. No suspiciousactivity was identified. 11/29/2023 by James Harry DO - LORAZEPAM 0.5 MG TABLET 3. Screening for endocrine, metabolic and immunity disorder - ICD9: V77.99, ICD10: Z13.29, Z13.228,Z13.0 Labs reviewed 4. Encounter for screening mammogram for malignant neoplasm of breast - ICD9: V76.12, ICD10: Z12.31 - Completed breast exam - Encouraged monthly BSE - Follow up for annual exam in one year. - JEROD SCREENING 5. Bilateral hip pain - ICD9: 719.45, ICD10: M25.551, M25.552 Concern for possible acetabular labral injury. Recommend evaluation by ortho/sports med. - CONSULT TO ORTHOPAEDICS 6. Melanocytic nevus, unspecified location - ICD9: 216.9, ICD10: D22.9 No suspicious lesions appreciated Recommend regular sunscreen use and avoidance of tanning beds Continue to monitor for suspicious lesions. James Harry DO 11/29/2023 3:00 PM Follow up in 1 year for annual physical, 6 months for controlled substance monitoring/anxiety documented in [facility] encounterC[facility] Miscellaneous Notes* Telephone Encounter - Dulce Hatfield - 08/22/2023 11:15 AM EST Images from the original note were not included. Prior Authorization for Medications Requested by (MyChart, Pharmacy, Patient Call, Fax) : Fax Pharmacy Name: [facility] Phone # : [phone] Name of Medication : Nurtec ODT Dose : 75mg If renewal, auth date expiration: NA Prescribing Provider: Sal Last OV: 07/19/23 with Sal Insurance Provider : [place]rend[place]/ [employer] Is insurance card scanned in, including Rx info? Yes Insurance CoverMyMeds Javier: E-PA? Yes documented in this encounterC[facility]11-15-2023 Miscellaneous Notes* Telephone Encounter - Dulce Dubon APRN.CNP - 08/17/2023 11:17 AM EST The following approved medication requests have been transmitted electronically. Requested Prescriptions Signed Prescriptions Disp Refills LORazepam (ATIVAN) 0.5 mg 30 tablet 0 Sig: Take 1 tablet by mouth three times a day as needed for up to 30 days. Authorizing Provider: DULCE DUBON PDMP website checked and validated. All prescriptions have been APPROPRIATELY filled. No suspiciousactivity was identified. 08/17/2023 by Dulce Dubon APRN.CNP * Telephone Encounter - Rebecca Servin MA - 08/15/2023 1:10 PM EST NOV none KEYANNA 06/01/23 Patient electronically sent a request for the following prescription(s) Requested Prescriptions Pending Prescriptions Disp Refills LORazepam (ATIVAN) 0.5 mg 30 tablet 0 Sig: Take 1 tablet by mouth three times a day as needed for up to 30 days. Patient aware RX will be sent to pharmacy. No need to notify patient. Please review. Rebecca Servin MA documented in this encounterC[facility]10-17-2023 Instructions* Patient Instructions* Sharron Hollis APRN.ASBESTOS MICROSCOPIST - 07/19/2023 2:10 PM EDT AFTER VISIT CARE BOTOX INJECTION While these procedures can be extremely helpful as part of your headache treatment plan, they can irritate the muscles and tissues in your head, neck and shoulders. Proper follow-up care is important to avoid muscle spasms and temporary pain increase within the following 3-5 days after your clinic visit. Here are some tips to help decrease side-effects that may occur and maximize the effectiveness of your pain relief -HYDRATION Hydration is important to help nourish your muscles and tissues. Drink 60-80 oz of non caffeinated fluid at least for 3 days after your visit. -REST Rest will help avoid further irritation of muscle and tissues. Remember that you need to give your body time to adjust. NO strenuous activity for at least the first 24 hours after your visit. Gentle stretching, yoga, meditation or even swimming is OK and encouraged. -ICE/HEAT Since these procedures irritate muscles, there can be some swelling. Alternating ice and heat every3-5 times per day may help decrease this, while also optimizing pain relief Use cool gel packs for ice for 10 min. Use a warm moist towel covered with a dry towel on neck and shoulders. Alternate stretching each side of the neck. -STRETCHING Slow, gentle stretching of the neck and shoulders once every hour is helpful to avoid muscle spasms. -TREAT MUSCLE SPASMS If you are already prescribed a muscle relaxer such as baclofen, tizanidine or flexeril, use as directed. If you do not have one, talk to your provider to find out if this would be safe for you to use. Do not rub or massage the area for 48-72 hours. -OTHER No hair dyes or permanents for 24 hours. If you are paying out of pocket for Botox go online to Botox Savings Program and see if you qualifyfor reimbursement. Return in 3 months for your next Botox Injection documented in this encounterC[facility]10-17-2023 History of Present illness Narrative* Sharron Hollis APRN.ROLAND - 07/19/2023 2:00 PM EDT Headache Center Follow-up Visit Marcial Lai Yeung has been previously approved for an Oral Calcitonin Gene-Related Peptide Receptor Antagonist (GEPANT) Rimegepant for the treatment of acute migraine. The patient has demonstrated the following: Provider attests patient has had a positive clinical response: Yes Patient will not use with another Oral Calcitonin Gene-Related Peptide Receptor Antagonist (GEPANT): Yes Patient's quality of life and ability to perform ADLs has improved: Yes The patient has tried and failed the following : We suggest the patient continue treatment with GEPANT Rimegepant. The following preventative medications have been tried for three or more months without benefit: Anti-Convulsant Gabapentin (Neurontin) Topiramate (Topamax, Trokendi XL, Qudexy) Anti-Depressant and Antipsychotic Amitriptyline (Elavil) Bupropion (Wellbutrin) Citalopram (Celexa) Fluoxetine (Prozac) Venlafaxine (Effexor) Blood Pressure Metoprolol (Lopressor,Toprol XL) Propranolol (Inderal) Botulinum Toxin Onabotulinum Toxin A (Botox) Supplements Magnesium The following abortive medications have been tried but require high frequency use which can lead toMedication Overuse Headache: Analgesic Hydrocodone/Acetaminophen (Vicodin, [place]) Hydromorphone (Dilaudid) Meloxicam (Mobic) Meperidine (Demerol) Oxycodone Oxycodone/Acetaminophen (Percocet) Tramadol (Ultram) Anti-Anxiety Lorazepam (Ativan) Anti-Migraine Rizatriptan (Maxalt) Sumatriptan (Imitrex, Sumavel) GEPANTS Ubrogepant (Ubrelvy) Rimegepant (Nurtec) Over the Counter Medications Acetaminophen (Tylenol) Acetaminophen/Aspirin/Caffeine (Excedrin, Goody s) Aspirin Ibuprofen (Advil, Motrin) Naproxen sodium (Aleve) Follow-Up Onabotulinum Toxin A (BotoxTM) for Migraine Indication: Chronic Intractable Migraine Treatment #: 17 Referral Expiration: 04/14/2024 Prior to the initiation of the FIRST treatment with Onabotulinum Toxin A, the patient reported the following average headache frequency over the past 3 MONTHS: Number of moderate-severe migraine days/month: 25 Number of mild migraine days/month: 0 Number of headache free days/month: 5 (120 headache-free hours) After treatment with Onabotulinum Toxin A: Number of moderate-severe migraine days/month: 2 Number of mild migraine days/month: 3 Number of headache free days/month: 25 (600 headache-free hours) Patient reduction in overall migraine days: Yes Patient reduction in moderate-severe migraine days: Yes Patient reduction of headache hours by 100 hours or more: Yes (reduction of 480 hours) Individual has obtained clinical benefit deemed significant by individual or prescriber (Y/N): Yes Patient's quality of life and ability to perform ADLs has improved (Y/N): Yes Side effects: none Wearing off: No The patient has been assessed for disorders which could contribute to breathing or swallowing difficulty, and there is no contraindication with PREEMPT Botox. There is no documented allergic reaction/hypersensitivity to any botulinum toxin and there is no active infection at proposed injection site. HEADACHE SCORES: Headache Questions 01/07/2023 04/19/2023 07/16/2023 ER visits since last office visit: 0 0 0 Hospital stays since last office visit 0 0 0 Limited ADLs in the last month: 0 2 1 Days missed from work or school in the last month: 0 0 0 Days headache pain free in the last month: 24 25 25 Days per month with ALL of the following symptoms - decreased productivity, light sensitivity and nausea: 1 2 1 Initial improvement of headache after botox injection at last visit: Much improved Much improved Much improved PRN medication usage in the last month: 6 5 5 Patient impression of improvement since last visit: No change No change No change HIT-6 01/07/2023 04/19/2023 07/16/2023 HIT-6 - - - HIT-6 48 (Little or no impact) 40 (Little or no impact) 46 (Little or no impact) KEYONNA - 2/7 SCORES 01/07/2023 04/19/2023 07/16/2023 KEYONNA-2 Score 1 1 1 KEYONNA-7 Score - - - Migraine Specific QOL - Higher scores indicate better HRQL 01/07/2023 04/19/2023 07/16/2023 Role Function-Restrictive Transformed Score (range: 0-100) 97.14 100 91.43 Role Function-Preventive Transformed Score (range: 0-100) 100 100 95 Emotional Function Transformed Score (range: 0-100) 100 100 100 PHQ-9 01/07/2023 04/19/2023 07/16/2023 Score 3 4 2 BP 119/77 (BP Site: Left Arm, BP Position: Sitting, BP Cuff Size: Large Adult) Pulse 92 Ht 157.5 cm (5' 2") Wt 67.1 kg (148 lb) LMP 05/06/2014 SpO2 97% BMI 27.07 kg/m Patient name: Marcial Yeung : 1965 ALLERGIES Allergen Reactions 2-Octyl Cyanoacryla* Hives Citalopram Other: See Comments Did not tolerate, ? Mental status changes Dust Intolerance Liquid Bandage [Enb* Rash blisters and rash Mold Other: See Comments Intolerance; itchy throat, runny nose Pneumococcal Vaccine Other: See Comments Pneumovax 23 [Pneum* Swelling tongue swollen arm Pollen Intolerance Propranolol Mental Status Change Smoke Intolerance Tetracycline GI Upset Abdominal pain/cramping UNIVERSAL PROTOCOL / SAFETY CHECKLIST Procedure: Onabotulinum toxin A for migraine Informed Consent Consent Obtained: Written [place] Protocol A moment to CARE was completed SIGN IN Personnel directly involved with the procedure wore the appropriate PPE Special Equipment: N/A Patient/Surrogate Stated/Verified: Patient name, Date of , Relevant allergies and Intended procedure TIME OUT Intended patient and procedure match the source document(s) Consent documented and matches the intended procedure No relevant labs, photos, and/or imaging studies were applicable for review. No correct side/site applicable for marking and visibility. No medications required for procedure. No fire risk assessment and interventions applicable. No implant(s) inserted. SIGN OUT No specimen collected. No instruments, equipment or retained foreign bodies applicable. Post-procedure follow-up management communicated and Plan of Care Visit completed when applicable Written Consent Obtained: Written LOT #: [id number] Expiration Date: Month: 2 Year: 2025 Second vial: LOT #: [id number] Expiration Date: Month: 2 Year: 2025 Injection Sites Left (Units) Left (Sites) Right (Units) Right (Sites) TOTAL (Units) Pesticide Chemist 5 1 5 1 10 Procerus Units: 5 Sites: 1 5 Frontalis 10 2 10 2 20 Temporalis optional follow the pain 20 5 4 1 20 5 4 1 50 Occipitalis optional follow the pain 15 10 3 2 15 10 3 2 50 Cervical PSP 10 2 10 2 20 Trapezius optional follow the pain 15 7.5 3 2 15 7.5 3 2 45 Total Units used: 200 Total Units wasted: 0 Patient tolerated procedure well. Prior Therapies Duration of Use Dose Side effect Analgesic Hydrocodone/Acetaminophen (Vicodin, [place]) Hydromorphone (Dilaudid) Meloxicam (Mobic) Meperidine (Demerol) Oxycodone Oxycodone/Acetaminophen (Percocet) Tramadol (Ultram) Anti-Anxiety Lorazepam (Ativan) Anti-Convulsant Gabapentin (Neurontin) Topiramate (Topamax, Trokendi XL, Qudexy) Anti-Depressant and Antipsychotic Amitriptyline (Elavil) Bupropion (Wellbutrin) Citalopram (Celexa) Fluoxetine (Prozac) Venlafaxine (Effexor) Antiemetics Metoclopramide Ondansetron Prochlorperazine Promethazine Anti-Migraine Rizatriptan (Maxalt) Sumatriptan (Imitrex, Sumavel) Blood Pressure Metoprolol (Lopressor,Toprol XL) Propranolol (Inderal) GEPANTS Ubrogepant (Ubrelvy) Rimegepant (Nurtec) Botulinum Toxin Onabotulinum Toxin A (Botox) Muscle Relaxer Cyclobenzaprine (Flexeril) Sleep Aids Trazodone (Desyrel) Zolpidem (Ambien) Supplements Magnesium Other Medications Dexamethasone (Decadron) Prednisone Over the Counter Medications Acetaminophen (Tylenol) Acetaminophen/Aspirin/Caffeine (Excedrin, Goody s) Aspirin Ibuprofen (Advil, Motrin) Naproxen sodium (Aleve) Sharron Hollis APRN.ASBESTOS MICROSCOPIST documented in this encounterC[facility]10-10-2023 Miscellaneous Notes* Telephone Encounter - Rebecca Servin MA - 07/12/2023 1:30 PM EDT NOV none KEYANNA 06/01/23 Patient electronically sent a request for the following prescription(s) Requested Prescriptions Pending Prescriptions Disp Refills benzonatate (TESSALON PERLE) 100 mg capsule [Pharmacy Med Name: BENZONATATE 100 MG CAPSULE] 60 capsule 0 Sig: take 1 capsule by mouth three times a day if needed Patient aware RX will be sent to pharmacy. No need to notify patient. Please review. Rebecca Servin MA documented in this encounterC[facility]10-10-2023 Miscellaneous Notes* Telephone Encounter - Juli Gonsales RN - 07/12/2023 9:36 AM EDT Last visit 01/26/23. No future visits scheduled. documented in this encounterCleveland [facility]09-08-2023 History of Present illness Narrative* Annamaria Matute RPFT - 06/10/2023 11:26 AM EDT PULM FUNCTION SMARTBLOCK: Provider: James Harry DO Assisting Tech: Annamaria Matute RPFT Spirometry w/BD: 1 documented in this encounterCleveland Clinic [facility]09-07-2023 Miscellaneous Notes* Telephone Encounter - Chaz Piper LPN - 06/09/2023 2:17 PM EDT Spoke with Marcial. Results and recommendations reviewed with pt per Dr Olsen. Pt verbalized understanding. She reports she would like to trial one of the recommended prescriptions. Please send torite aid pharmacy. Pt has no questions at this time. Chaz Piper LPN * Telephone Encounter - Rosalie Harding LPN - 06/09/2023 11:17 AM EDT Voicemail msg left for patient to return call to [facility] to review recommendations for symptoms. Officephone number provided. Rosalie Harding LPN * Telephone Encounter - Albina Luong MD - 06/09/2023 10:57 AM EDT Reviewed case. If symptoms are not tolerated, she would need to see her primary care physician to determine why she is having sinus tachycardia, as this tends to be secondary or "driven" by other things, such as other medical conditions or even anxiety. It is not commonly a primary heart rhythm problem, but can be --- such as "inappropriate sinus tachycardia." But causative factors need to be excluded first before coming to that diagnosis. We can try a beta-vernon medication, such as metoprolol or atenolol. I see that propranolol, a different beta- vernon, caused "mental status change" according to the records. This might not occur with other beta-blockers so worth a try. She did not have much if any PVCs by the monitoring, she did have some PACs but not a lot. She needs to be evaluated for potential causes of sinus tachycardia. I will send a copy of this note to her PCP. Albina Luong MD June 09, 2023 11:03 AM * Telephone Encounter - Rosalie Harding LPN - 06/09/2023 10:44 AM EDT Spoke with patient about test results. Patient verbalizes understanding. Patient reports her symptoms of dizziness, PVC's and fluttering are getting worse. Rosalie Harding LPN * Telephone Encounter - Albina Luong MD - 06/09/2023 10:41 AM EDT Please let Ms. Yeung know that the heart monitoring testing showed that during her symptoms she had sinus tachycardia, an acceleration of her normal rhythm. No SVT documented. Albina Luong MD June 09, 2023 10:41 AM documented in this encounterCleveland [facility]08-30-2023 History of Present illness Narrative* James Harry DO - 06/01/2023 9:50 AM EDT CC: dizziness S: 57 year old female with history below presents for dizziness. Has been going on for a few weeks.Currently on a holter monitor with cardiology. Dizziness is intermittent. Developed confusion and radiating heat from her chest/neck. On HRT - s/p hysterectomy. Has had a dry cough for the past 6 weeks- started around the time the air quality began to worsen. H/o ablation for WPW. Inhaler is makingher feel jittery- using it for asthma intermittently. Heart rate at home has been elevated. Taking all medications as prescribed. Per triage note from yesterday: Call from patient with complaints of "trouble focusing/concentrating and light-headed feeling". States that symptoms have been worse over the past month but improve when lays down. 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 States that symptomsare worse when air quality is worse. Has Intermittent chest heaviness, with fluttery feeling in chest. 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 flecainide; indication: symptomatic PSVT with WPW syndrome Other anxiety states Palpitations Paroxysmal supraventricular tachycardia (HCC) see "WPW Syndrome" Stress incontinence, female Unspecified asthma(493.90) 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; attempt at catheter ablation 11/2016 failed; she continues to experience intermittent palpitations and tachycardia despite treatment with flecainide; successful RFCA 03/2018 PAST SURGICAL HISTORY Procedure Laterality Date BLADDER SURGERY HX 11/2015 bladder sling BREAST AUGMENTATION WITH IMPLANT 11/2007 Breast augmentation CARDIAC MONITORING CONTINUOUS 05/25/2018 96 hours monitoring: sinus rhythm, sinus tachycardia; patient event activations and/or reported symptoms correlated with sinus rhythm and sinus tachycardia DELIVERY ONLY 85, 88,92 , low cervical X3 COLONOSCOPY 06/2021 EGD 2019 F LIGATION OF HEMORRHOID(S) 10/07/2020 IUD INSERTION ([facility] [employer])_*FL 08/30/2007 Mirena - removed LAPAROSCOPY SURG CHOLECYSTECTOMY 11/16/2017 [facility] OOPHORECTOMY, PART/TOTAL UNILAT/BILAT 2016 PAST SURGICAL HISTORY OF 09/2021 C4-C6 disc replacement S PK LAVH [id number] 2013 lavh RICKY biltareal salpingectomy SVT ABLATION W/ EP COMPLETE 11/24/2016 [facility], Dr. Mcknight; right midseptal AP unable to be ablated despite cryoablation and RF ablation attempts; AP described as not having capability for extremely rapid antegrade conduction SVT ABLATION W/ EP COMPLETE 03/28/2018 left posteroseptal AP just within the proximal CS; Stereotaxis RF with Carto guidance, successful elimination of AP conduction; no SVT inducible pre- or post-ablation; [facility]AG Dr. Luong TONSILLECTOMY & ADENOIDECTOMY <AGE 13 1969 VAGINAL HYSTERECTOMY Current Outpatient Medications Medication Sig Dispense Refill tiZANidine (ZANAFLEX) 4 mg tablet Take 1 tablet by mouth at bedtime as needed. 20 tablet 5 ondansetron (ZOFRAN) 4 mg tablet Take 1 tablet by mouth every 8 hours as needed for nausea/vomiting. [address] (PROTONIX) 40 mg tablet Take 1 tablet by mouth once daily. 30 tablet 5 dicyclomine (BENTYL) 10 mg capsule Take 1 capsule by mouth three times daily. 90 capsule 2 methylPREDNISolone (MEDROL DOSE-PACK) 4 mg Dose-Pack use as directed FOLLOW DIRECTIONS ON BACK OF FOIL PACK rimegepant (NURTEC ODT) 75 mg disintegrating tablet Take 1 dissolvable tablet by mouth at migraine onset. May repeat once per 24 hours as needed. 8 tablet 11 traZODone (DESYREL) 50 mg tablet take 1 AND 1/2 tablets by mouth at bedtime 135 tablet 3 magnesium oxide (MAG-OX) 400 mg (241.3 mg magnesium) tablet Take 1 tablet by mouth once daily. 90 tablet 3 levocetirizine (XYZAL) 5 mg tablet Take 1 tablet by mouth once daily. 30 tablet 11 fluticasone propionate (XHANCE) 93 mcg/actuation nasal spray Use 2 Sprays in the nose twice daily. 16 mL 11 albuterol HFA (PROVENTIL HFA, VENTOLIN HFA) 90 mcg/actuation inhaler Inhale 2 Puffs as instructed every 4 hours as needed. 1 Each 1 XHANCE 93 mcg/actuation nasal spray phenazopyridine (PYRIDIUM, GERIDIUM) 200 mg tablet Take 200 mg by mouth three times daily as neededfor pain. cholestyramine (QUESTRAN) 4 gram packet take 1 packet ( 4 grams ) by mouth twice a day dissolve in 2 to 6 ounces OF WATER OR NONCARBONATED BEVERAGE with meals (Patient taking differently: as needed.)60 Packet 5 estradiol (NOLBE, VIVELLE-DOT) 0.025 mg/24 hr 1 Patch every Tuesday and Tuesday. No current facility-administered medications for this visit. SOCIAL (pertinent): Social History Tobacco Use Smoking status: Never Smokeless tobacco: Never Vaping Use Vaping Use: Never used Substance Use Topics Alcohol use: Yes Comment: occasionally Drug use: No FAMILY (pertinent): FAMILY HISTORY Problem Relation Age of Onset Thyroid Mother goiter other (Palpitations) Mother Asthma Father Asthma Son other (Palpitations) Son Thyroid Maternal Grandmother goiter other (Other) Maternal Grandfather young in MVA Emphysema Paternal Grandmother Heart Failure Paternal Grandmother other (tobacco use) Paternal Grandmother Heart disease Paternal Grandfather had a heart attack and at young age Stroke Paternal Grandfather Prostate Cancer Paternal Grandfather Asthma Daughter other (Brain tumor) Daughter benign Seizures Brother Heart Brother WPW syndrome; ablation unsuccessful -- too close to AV node other (Other) Other no unexplained sudden , crib deaths, unexplained syncope ROS: See HPI O: PHYSICAL EXAM: Pulse 84 Ht 157.5 cm (5' 2") Wt 64.4 kg (142 lb) LMP 05/06/2014 SpO2 99% BMI 25.97 kg/m Gen: Patient is pleasant, alert, NAD, well appearing Head: Normocephalic, atraumatic CV: occasional PVCs but otherwise RRR, normal S1/S2, no murmurs, rubs Pulm: Symmetric restricted air entry bilaterally without wheezes crackles or rhonchi Neuro: EOMI, no involuntary movements. Extrem: No cyanosis, clubbing, or edema. Distal pulses equal and palpable b/l Skin: Warm, dry, no visible rashes A/P: I spent 30 minutes in the visit, with more than 50% of the total ozgm-ed-wtve time of the visit in counseling / coordination of care. 57 year old female with ASSESSMENT/PLAN: 1. Dizziness - ICD9: 780.4, ICD10: R42 (primary diagnosis) EKG completed showed sinus rhythm with PVCs and heart rate 68 bpm. Orthostatic vital signs showed blood pressure 148/86 and heart rate 73 bpm supine and 164/100 with heart rate 83 bpm standing. Because of the patient's restricted air entry, jittery feelings on albuterol, and history of asthma, we will have her stop using the albuterol and try using Flovent twice daily to see whether her symptoms of cough improved. She can use Tessalon Perles 3 times daily as needed for cough suppression as well. We will obtain a chest x-ray and blood work today. She has 1 week left on the Holter monitor I recommend that she follow-up with her fresh work wrapper layer to review the results of this as I suspect her dizziness is likely related to an arrhythmia. Maintain adequate hydration. Check PFTs. Follow-up as needed if symptoms fail to improve or worsen. - ECG COMPLETE - COMP METABOLIC PANEL - TSH BLD - CBC - XR CHEST 2V FRONTAL/LAT - CONSULT TO CARDIOLOGY 2. PVC's (premature ventricular contractions) - ICD9: 427.69, ICD10: I49.3 As above - XR CHEST 2V FRONTAL/LAT - CONSULT TO CARDIOLOGY 3. Chronic cough - ICD9: 786.2, ICD10: R05.3 As above - SPIROMETRY - BASELINE AND POST DILATOR - FLUTICASONE PROPIONATE 110 MCG/ACTUATION HFA AEROSOL INHALER - BENZONATATE 100 MG CAPSULE 4. Mild intermittent asthma, unspecified whether complicated - ICD9: 493.90, ICD10: J45.20 As above - SPIROMETRY - BASELINE AND POST DILATOR - FLUTICASONE PROPIONATE 110 MCG/ACTUATION HFA AEROSOL INHALER - BENZONATATE 100 MG CAPSULE James Harry DO June 01, 2023 9:50 AM documented in this encounterC[facility]08-22-2023 Miscellaneous Notes* Patient Education - Sanjuanita Martel RN - 05/24/2023 2:00 PM EDT Pt educated on event monitor and stated understanding. documented in this encounterCleveland Clinic [facility]08-17-2023 Miscellaneous Notes* Telephone Encounter - Rosalie Harding LPN - 05/19/2023 8:05 AM EDT Spoke with patient about recommendation to wear a monitoring and evaluation advisor. Patient verbalizes understandingand is agreeable. Phone number provided to centralized scheduling. Rosalie Harding LPN * Telephone Encounter - Albina Luong MD - 05/18/2023 7:09 PM EDT [facility] [place] General Electrophysiology (EP) Reviewed. In light of symptoms she should wear a monitoring and evaluation advisor. I ordered a cardiac event monitor. Albina Luong MD May 18, 2023 7:09 PM * Telephone Encounter - Rosalie Harding LPN - 05/17/2023 2:28 PM EDT Patient called [facility] to report she is experiencing more episodes at least a few times a week of racing heartbeat, palpitations, feeling like she is going to pass out, and feeling heart "fluttering." HRduring episodes is 88-145 bpm. When episodes are over HR is around 79 bpm with complaints of dizziness. Rosalie Harding LPN documented in this encounterCleveland Clinic [facility]07-18-2023 History of Present illness Narrative* Sharron Hollis APRN.ASBESTOS MICROSCOPIST - 04/19/2023 1:00 PM EDT [facility] Follow-up Visit Marcial Ming Yeung has been previously approved for an Oral Calcitonin Gene-Related Peptide Receptor Antagonist (GEPANT) Rimegepant for the treatment of acute migraine. The patient has demonstrated the following: Provider attests patient has had a positive clinical response: Yes Patient will not use with another Oral Calcitonin Gene-Related Peptide Receptor Antagonist (GEPANT): Yes Patient's quality of life and ability to perform ADLs has improved: Yes We suggest the patient continue treatment with GEPANT Rimegepant. The following preventative medications have been tried for three or more months without benefit: Anti-Convulsant Gabapentin (Neurontin) Topiramate (Topamax, Trokendi XL, Qudexy) Anti-Depressant and Antipsychotic Amitriptyline (Elavil) Bupropion (Wellbutrin) Citalopram (Celexa) Fluoxetine (Prozac) Venlafaxine (Effexor) Blood Pressure Metoprolol (Lopressor,Toprol XL) Propranolol (Inderal) Botulinum Toxin Onabotulinum Toxin A (Botox) Supplements Magnesium The following abortive medications have been tried but require high frequency use which can lead toMedication Overuse Headache: Analgesic Hydrocodone/Acetaminophen (Vicodin, [place]) Hydromorphone (Dilaudid) Meloxicam (Mobic) Meperidine (Demerol) Oxycodone Oxycodone/Acetaminophen (Percocet) Tramadol (Ultram) Anti-Anxiety Lorazepam (Ativan) Anti-Migraine Rizatriptan (Maxalt) Sumatriptan (Imitrex, Sumavel) GEPANTS Ubrogepant (Ubrelvy) Rimegepant (Nurtec) Over the Counter Medications Acetaminophen (Tylenol) Acetaminophen/Aspirin/Caffeine (Excedrin, Goody s) Aspirin Ibuprofen (Advil, Motrin) Naproxen sodium (Aleve) Follow-Up Onabotulinum Toxin A (BotoxTM) for Migraine Indication: Chronic Intractable Migraine Treatment #: 16 Referral Expiration: 03/13/2024 Prior to the initiation of the FIRST treatment with Onabotulinum Toxin A, the patient reported the following average headache frequency over the past 3 MONTHS: Number of moderate-severe migraine days/month: 25 Number of mild migraine days/month: 0 Number of headache free days/month: 5 (120 headache-free hours) After treatment with Onabotulinum Toxin A: Number of moderate-severe migraine days/month: 2 Number of mild migraine days/month: 3 Number of headache free days/month: 25 (600 headache-free hours) Patient reduction in overall migraine days: Yes Patient reduction in moderate-severe migraine days: Yes Patient reduction of headache hours by 100 hours or more: Yes (reduction of 480 hours) Individual has obtained clinical benefit deemed significant by individual or prescriber (Y/N): Yes Patient's quality of life and ability to perform ADLs has improved (Y/N): Yes Side effects: none Wearing off: No The patient has been assessed for disorders which could contribute to breathing or swallowing difficulty, and there is no contraindication with PREEMPT Botox. There is no documented allergic reaction/hypersensitivity to any botulinum toxin and there is no active infection at proposed injection site. HEADACHE SCORES: Headache Questions 09/28/2022 01/07/2023 04/19/2023 ER visits since last office visit: 0 0 0 Hospital stays since last office visit 0 0 0 Limited ADLs in the last month: 0 0 2 Days missed from work or school in the last month: 1 0 0 Days headache pain free in the last month: 20 24 25 Days per month with ALL of the following symptoms - decreased productivity, light sensitivity and nausea: 1 1 2 Initial improvement of headache after botox injection at last visit: Much improved Much improved Much improved PRN medication usage in the last month: 5 6 5 Patient impression of improvement since last visit: Minimally improved No change No change HIT-6 09/28/2022 01/07/2023 04/19/2023 HIT-6 - - - HIT-6 44 (Little or no impact) 48 (Little or no impact) 40 (Little or no impact) KEYONNA - 2/7 SCORES 09/28/2022 01/07/2023 04/19/2023 KEYONNA-2 Score 1 1 1 KEYONNA-7 Score - - - Migraine Specific QOL - Higher scores indicate better HRQL 09/28/2022 01/07/2023 04/19/2023 Role Function-Restrictive Transformed Score (range: 0-100) 94.29 97.14 100 Role Function-Preventive Transformed Score (range: 0-100) 100 100 100 Emotional Function Transformed Score (range: 0-100) 100 100 100 PHQ-9 09/28/2022 01/07/2023 04/19/2023 Score 2 3 4 BP 122/83 (BP Site: Left Arm, BP Position: Sitting, BP Cuff Size: Large Adult) Pulse 73 Ht 157.5 cm (5' 2") Wt 67.7 kg (149 lb 4.8 oz) LMP 05/06/2014 SpO2 99% BMI 27.31 kg/m Patient name: Marcial Yeung : 1965 ALLERGIES Allergen Reactions 2-Octyl Cyanoacryla* Hives Citalopram Other: See Comments Did not tolerate, ? Mental status changes Dust Intolerance Liquid Bandage [Enb* Rash blisters and rash Mold Other: See Comments Intolerance; itchy throat, runny nose Pneumococcal Vaccine Other: See Comments Pneumovax 23 [Pneum* Swelling tongue swollen arm Pollen Intolerance Propranolol Mental Status Change Smoke Intolerance Tetracycline GI Upset Abdominal pain/cramping UNIVERSAL PROTOCOL / SAFETY CHECKLIST Procedure: Onabotulinum toxin A for migraine Informed Consent Consent Obtained: Written [place] Protocol A moment to CARE was completed SIGN IN Personnel directly involved with the procedure wore the appropriate PPE Special Equipment: N/A Patient/Surrogate Stated/Verified: Patient name, Date of , Relevant allergies and Intended procedure TIME OUT Intended patient and procedure match the source document(s) Consent documented and matches the intended procedure No relevant labs, photos, and/or imaging studies were applicable for review. No correct side/site applicable for marking and visibility. No medications required for procedure. No fire risk assessment and interventions applicable. No implant(s) inserted. SIGN OUT No specimen collected. No instruments, equipment or retained foreign bodies applicable. Post-procedure follow-up management communicated and Plan of Care Visit completed when applicable Written Consent Obtained: Written LOT #: [id number] Expiration Date: Month: Year: 2024 Second vial: LOT #: [id number] Expiration Date: Month: Year: 2024 Injection Sites Left (Units) Left (Sites) Right (Units) Right (Sites) TOTAL (Units) Pesticide Chemist 5 1 5 1 10 Procerus Units: 5 Sites: 1 5 Frontalis 10 2 10 2 20 Temporalis optional follow the pain 20 5 4 1 20 5 4 1 50 Occipitalis optional follow the pain 15 10 3 2 15 10 3 2 50 Cervical PSP 10 2 10 2 20 Trapezius optional follow the pain 15 7.5 3 2 15 7.5 3 2 45 Total Units used: 200 Total Units wasted: 0 Patient tolerated procedure well. Prior Therapies Duration of Use Dose Side effect Analgesic Hydrocodone/Acetaminophen (Vicodin, [place]) Hydromorphone (Dilaudid) Meloxicam (Mobic) Meperidine (Demerol) Oxycodone Oxycodone/Acetaminophen (Percocet) Tramadol (Ultram) Anti-Anxiety Lorazepam (Ativan) Anti-Convulsant Gabapentin (Neurontin) Topiramate (Topamax, Trokendi XL, Qudexy) Anti-Depressant and Antipsychotic Amitriptyline (Elavil) Bupropion (Wellbutrin) Citalopram (Celexa) Fluoxetine (Prozac) Venlafaxine (Effexor) Antiemetics Metoclopramide Ondansetron Prochlorperazine Promethazine Anti-Migraine Rizatriptan (Maxalt) Sumatriptan (Imitrex, Sumavel) Blood Pressure Metoprolol (Lopressor,Toprol XL) Propranolol (Inderal) GEPANTS Ubrogepant (Ubrelvy) Rimegepant (Nurtec) Botulinum Toxin Onabotulinum Toxin A (Botox) Muscle Relaxer Cyclobenzaprine (Flexeril) Sleep Aids Trazodone (Desyrel) Zolpidem (Ambien) Supplements Magnesium Other Medications Dexamethasone (Decadron) Prednisone Over the Counter Medications Acetaminophen (Tylenol) Acetaminophen/Aspirin/Caffeine (Excedrin, Goody s) Aspirin Ibuprofen (Advil, Motrin) Naproxen sodium (Aleve) Sharron Hollis APRN.ASBESTOS MICROSCOPIST documented in this encounterCleveland Clinic [facility]07-18-2023 Instructions* Patient Instructions* Sharron Hollis APRN.ROLAND - 04/19/2023 12:48 PM EDT AFTER VISIT CARE BOTOX INJECTION While these procedures can be extremely helpful as part of your headache treatment plan, they can irritate the muscles and tissues in your head, neck and shoulders. Proper follow-up care is important to avoid muscle spasms and temporary pain increase within the following 3-5 days after your clinic visit. Here are some tips to help decrease side-effects that may occur and maximize the effectiveness of your pain relief -HYDRATION Hydration is important to help nourish your muscles and tissues. Drink 60-80 oz of non caffeinated fluid at least for 3 days after your visit. -REST Rest will help avoid further irritation of muscle and tissues. Remember that you need to give your body time to adjust. NO strenuous activity for at least the first 24 hours after your visit. Gentle stretching, yoga, meditation or even swimming is OK and encouraged. -ICE/HEAT Since these procedures irritate muscles, there can be some swelling. Alternating ice and heat every3-5 times per day may help decrease this, while also optimizing pain relief Use cool gel packs for ice for 10 min. Use a warm moist towel covered with a dry towel on neck and shoulders. Alternate stretching each side of the neck. -STRETCHING Slow, gentle stretching of the neck and shoulders once every hour is helpful to avoid muscle spasms. -TREAT MUSCLE SPASMS If you are already prescribed a muscle relaxer such as baclofen, tizanidine or flexeril, use as directed. If you do not have one, talk to your provider to find out if this would be safe for you to use. Do not rub or massage the area for 48-72 hours. -OTHER No hair dyes or permanents for 24 hours. If you are paying out of pocket for Botox go online to Botox Savings Program and see if you qualifyfor reimbursement. Return in 3 months for your next Botox Injection documented in this encounterCleveland Clinic [facility]06-05-2023 Miscellaneous Notes* Telephone Encounter - Brennan Yadav - 03/07/2023 11:18 AM EDT PT scheduled for MSK US on 05/26/23 at 10:15 am at [facility]. * Telephone Encounter - Bull Prado - 03/04/2023 4:07 PM EDT Visit Type: INJ ONLY 1x2 Visit Length: 120 MINUTES Order Name/Protocol: US ASP/INJ HIP JT/BURSA RT+LT; BILATERAL GREATER TROCHANTERIC BURSAL INJ Preferred Provider: N/A Comment: N/A Location: [facility] [place] Slot held: N/A documented in this encounterCleveland Clinic Mer[facility] Hospital06-02-2023 Instructions* Patient Instructions* Bijan Albert PA-C - 03/04/2023 3:31 PM EDT Call [phone] to schedule your US guided Cortisone Injections documented in this encounterCleveland Clinic Mercy Hospital06-02-2023 History of Present illness Narrative* Bijan Albert PA-C - 03/04/2023 3:17 PM EDT Images from the original note were not included. CHIEF COMPLAINT: Marcial Yeung is a 57 year old female who presents today for new evaluation of right hip pain and left hip pain. PAIN EVALUATION 03/03/2023 1504 Pain Level: 5 Pain Location: Hip-Right Description: Aching;Dull Duration Amount of Time: 10 Duration Units: Hours Frequency: Intermittent Intervention/Comfort measure: Medication;Exercise;Massage HISTORY OF PRESENT ILLNESS: Marcial is here for evaluation of bilateral lateral hip pain that she states has been going on for thepast 2 or 3 years but only intermittently and not affecting her day-to-day and only occasionally affecting her sleep States for the past 3 to 4 months though she has been having worsening and more frequent symptoms where she is having discomfort with a dull ache with occasional sharp pain during the day and is waking up more frequently at night Takes Motrin regularly for other issues along with the hips Denies injury Denies history of injections or surgery to the hips Denies physical therapy for the hip pain REVIEW OF SYMPTOMS: Constitutional: patient denies any recent fever or significant change in weight Gastrointestinal: patient denies any current abdominal discomfort and patient notes history to tolerance of NSAIDs Musculoskeletal: as noted in the HPI Neurologic: as noted in the HPI SOCIAL HISTORY: Tobacco Use: Never ALLERGIES: ALLERGIES Allergen Reactions 2-Octyl Cyanoacryla* Hives Citalopram Other: See Comments Did not tolerate, ? Mental status changes Dust Intolerance Liquid Bandage [Enb* Rash blisters and rash Mold Other: See Comments Intolerance; itchy throat, runny nose Pneumococcal Vaccine Other: See Comments Pneumovax 23 [Pneum* Swelling tongue swollen arm Pollen Intolerance Propranolol Mental Status Change Smoke Intolerance Tetracycline GI Upset Abdominal pain/cramping PAST MEDICAL HISTORY: 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 Vitals: LMP 05/06/2014 Skin: Skin color, texture, turgor normal, no suspicious rashes or lesions noted Cardiovascular: no signs of upper or lower extremity edema Psychiatric: mood and affect are appropriate, patient is oriented to time, place and person Neurologic: sensation is grossly intact Lymphatic: no asymetric limb swelling noted General Appearance: Well appearing, alert, in no acute distress, well-hydrated, and well nourished Respiratory: no respiratory distress, no audible wheezing, no labored breathing, symmetric thoracicexcursion Musculoskeletal Examination: ROM: full range of motion noted with lateral hip pain at the extremes of IR/ER Muscle Strength: Flex/Ext at the knee and hip appropriate Neurologic: Sensation: L2-S1 symmetrically normal, Special Tests: Straight Leg Raise (SLR): negative bilaterally JOSE Test: negative bilaterally FADIR Test::negative bilaterally Log Roll: negative bilaterally TTP over the Greater Trochanter with mild pain along the gluteal tendons Non TTP over the piriformis region IMAGING: Final results and radiologist's interpretation, available in the [facility] health record. Images were reviewed with the patient/family members in the office today. My personal interpretation of the performed imaging is no acute findings CLINICAL IMPRESSION / ASSESSMENT: (M25.552) Lateral pain of left hip (primary encounter diagnosis) (M25.551) Lateral pain of right hip RECOMMENDATION / PLAN: Clinically Marcial has an exam concerning for greater trochanteric bursitis with a possible chronic gluteal tendinopathy that has been progressively worsening over the past few months. We discussed treatment options and she is interested in a cortisone injection which I think is reasonable and ultrasound-guided cortisone injection has been ordered bilaterally. She will continue taking aguq-igr-zkiudl r medications as needed. I also expressed to her the importance of stretching/physical therapy/homeexercise program was provided as well as an order for physical therapy and she can determine when she would prefer particularly if the home exercise program is not very helpful that I strongly urged her to consider physical therapy for long-term improvement in symptoms. She will follow-up with me as needed Follow up: if symptoms persist or worsen Films prior to visit: No additional imaging warranted. Verbal health education was given to patient. Patient verbalizes understanding and agrees with the treatment plan as detailed above. I spent a total of 30 minutes on the date of the service which included preparing to see the patient, iyvn-fv-cgon patient care, completing clinical documentation, performing a medically appropriate examination, counseling and educating the patient/family/caregiver, ordering medications, tests, or p rocedures, and communicating results to the patient/family/caregiver. Bijan Albert PA-C, MPAS documented in this encounterCleveland Clinic [facility]cy Hospital06-02-2023 History of Present illness Narrative* Davy Amador RT(R) - 03/04/2023 2:25 PM EDT Radiology Service Progress Note PATIENT NAME: Marcial Yeung DATE OF SERVICE: March 04, 2023 TIME: 2:44 PM PATIENT IDENTITY VERIFICATION COMPLETED USING TWO (2) IDENTIFIERS: Name and Date of confirmedby patient verbally. FALL SCREENING: Has the patient had 2 falls in the last year or 1 fall with injury or currently using an Ambulatory Assistive Device (Walker, Cane, Wheelchair, Crutches, etc.)? No PATIENT GENDER DATA: Female. status: : No status: NO. PATIENT RELEVANT IMPLANT DATA REVIEWED: Not Applicable RADIOLOGY DEPARTMENT: General X-ray: Exam(s) Completed: Pelvis X-Ray: Pelvis with Hip Bilateral PERIPHERAL IV DATA: Not applicable SIGNED BY: RT Christal(R) March 04, 2023 2:44 PM documented in this encounterCleveland Clinic Mercy Hospital05-08-2023 Miscellaneous Notes* Telephone Encounter - Lynette Mosquera - 02/07/2023 12:26 PM EDT Physician: Sal Call from patient requesting refill. Please E-Scribe Last office visit 01/11/23 with Sal in person Next office visit 04/19/23 with Sal in person Requested Prescriptions Pending Prescriptions Disp Refills tiZANidine (ZANAFLEX) 4 mg tablet [Pharmacy Med Name: TIZANIDINE HCL 4 MG TABLET] 20 tablet 1 Sig: take 1 tablet by mouth at bedtime if needed [facility]: [facility] documented in this encounterCleveland Clinic Mercy Hospital05-01-2023 Miscellaneous Notes* Telephone Encounter - Razia Rogers MA - 01/31/2023 8:47 AM EDT KEYANNA 12/27/22 NOV none Pharmacy electronically sent a request for the following prescription(s) Requested Prescriptions Pending Prescriptions Disp Refills LORazepam (ATIVAN) 0.5 mg [Pharmacy Med Name: LORAZEPAM 0.5 MG TABLET] 30 tablet Sig: TAKE 1 TABLET BY MOUTH THREE TIMES A DAY Patient aware RX will be sent to pharmacy. No need to notify patient. Please review. Razia Rogers MA documented in this encounterCleveland Clinic Mer[facility] Hospital04-26-2023 Instructions* Patient Instructions* Jayde Gonzalez APRN.CNP - 01/26/2023 10:10 AM EDT Thank you for seeing me in clinic today. As we discussed, my recommendations are as follows: 1.decrease bentyl 2.metamucil daily 3. Increase water intake If you have any questions about the above treatment plan, please do not hesitate to call the officeor send me a EasyPropertyt message. documented in this encounterCleveland Clinic Mercy Hospital04-26-2023 History and physical note * Jayde Gonzalez APRN.CNP - 01/26/2023 9:00 AM EDT DISTANCE HEALTH VISIT This Team Access Model visit is a virtual encounter. It required patient- provider interaction for the medical decision making as documented below. REASON FOR VISIT: Medication Refill, HPI: Marcial Yeung is a 57 year old female who presents for Medication Refills. She admits her longstanding history of GI issues and diagnoses of IBS-D. She had a colonoscopy 06/19/2021 that revealed localized active colitis in her rectum. She was treated with Canasa suppositories x1 month. She admits her diarrhea and cramping resolved. She is currently taking Bentyl 10 mg 2-3 times daily. She admits to alternating constipation and diarrhea. She states she can go a few days without having a bowel movement and then have several bowelmovements in 1 day that progressively turn to loose stool. She denies nocturnal stools, hematochezia, melena, nausea, vomiting and unintentional weight loss. She is currently taking pantoprazole 40 mg daily which controls her reflux to 100%. She denies breakthrough symptoms. Past Clinical Work-Up: Colonoscopy - 06/17/21 - Localized mild inflammation was found in the rectum secondary to colitis. Biopsied. - The examination was otherwise normal on direct and retroflexion views. - Biopsies were taken with a cold forceps from the entire colon for evaluation of microscopic colitis. FINAL DIAGNOSIS 1. Random colon, biopsy (A) - Colonic mucosa with no diagnostic alteration. 2. Rectum, biopsy (B) - Focal minimally active colitis. EGD - 09/16/20 - Chronic duodenitis. Biopsied. - Non-bleeding erosive gastropathy. Biopsied. - Normal esophagus. FINAL DIAGNOSIS 1. Duodenum, biopsy (A) - No significant pathologic change. 2. Stomach, biopsy (B) - No significant pathologic change. MRI Liver - 09/25/18 Tiny hepatic cyst. No suspicious liver mass. CTA ABD/PEL - 04/02/18 IMPRESSION: No evidence of acute aortic pathology. Normal caliber thoracoabdominal aorta. 5 mm enhancing focus within the liver, likely benign in the absence of known malignancy with considerations to hemangioma, adenoma, FNH, or small shunt. If clinically indicated, further characterization with MRI may be considered. NM Hepatobiliary - 10/26/17 IMPRESSION: 1. PATENT CYSTIC AND COMMON BILE DUCTS. NO EVIDENCE OF ACUTE CHOLECYSTITIS. 2. REDUCED GALLBLADDER EJECTION FRACTION. THESE FINDINGS ARE CONSISTENT WITH CHRONIC CHOLECYSTITIS OR BILIARY DYSKINESIA IN THE APPROPRIATE CLINICAL SETTING. US RUQ - 10/04/17 IMPRESSION: No acute sonographic abnormalities seen. LABS in Process ALLERGIES Allergen Reactions 2-Octyl Cyanoacryla* Hives Citalopram Other: See Comments Did not tolerate, ? Mental status changes Dust Intolerance Liquid Bandage [Enb* Rash blisters and rash Mold Other: See Comments Intolerance; itchy throat, runny nose Pneumococcal Vaccine Other: See Comments Pneumovax 23 [Pneum* Swelling tongue swollen arm Pollen Intolerance Propranolol Mental Status Change Smoke Intolerance Tetracycline GI Upset Abdominal pain/cramping 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 flecainide; indication: symptomatic PSVT with WPW syndrome Other anxiety states Palpitations Paroxysmal supraventricular tachycardia (HCC) see "WPW Syndrome" Stress incontinence, female Unspecified asthma(493.90) WPW (Lnbpf-Uqwpqrfnx-Pnokf syndrome) associated with symptomatic SVT; attempt at catheter ablation 11/2016 failed; she continues to experience intermittent palpitations and tachycardia despite treatment with flecainide; successful RFCA 03/2018 PAST SURGICAL HISTORY Procedure Laterality Date BLADDER SURGERY HX 11/2015 bladder sling BREAST AUGMENTATION WITH IMPLANT 11/2007 Breast augmentation CARDIAC MONITORING CONTINUOUS 05/25/2018 96 hours monitoring: sinus rhythm, sinus tachycardia; patient event activations and/or reported symptoms correlated with sinus rhythm and sinus tachycardia DELIVERY ONLY 85, 88,92 , low cervical X3 COLONOSCOPY 06/2021 EGD 2019 F LIGATION OF HEMORRHOID(S) 10/07/2020 IUD INSERTION ([facility])_*FL 08/30/2007 Mirena - removed LAPAROSCOPY SURG CHOLECYSTECTOMY 11/16/2017 [facility] OOPHORECTOMY, PART/TOTAL UNILAT/BILAT 2016 PAST SURGICAL HISTORY OF 09/2021 C4-C6 disc replacement S PK LAVH [id number] 2013 lavh RICKY biltareal salpingectomy SVT ABLATION W/ EP COMPLETE 11/24/2016 [facility], Dr. Mcknight; right midseptal AP unable to be ablated despite cryoablation and RF ablation attempts; AP described as not having capability for extremely rapid antegrade conduction SVT ABLATION W/ EP COMPLETE 03/28/2018 left posteroseptal AP just within the proximal CS; Stereotaxis RF with Carto guidance, successful elimination of AP conduction; no SVT inducible pre- or post-ablation; [facility] Dr. Luong TONSILLECTOMY & ADENOIDECTOMY <AGE 13 1968 VAGINAL HYSTERECTOMY FAMILY HISTORY Problem Relation Age of Onset Thyroid Mother goiter other (Palpitations) Mother Asthma Father Asthma Son other (Palpitations) Son Thyroid Maternal Grandmother goiter other (Other) Maternal Grandfather young in MVA Emphysema Paternal Grandmother Heart Failure Paternal Grandmother other (tobacco use) Paternal Grandmother Heart disease Paternal Grandfather had a heart attack and at young age Stroke Paternal Grandfather Prostate Cancer Paternal Grandfather Asthma Daughter other (Brain tumor) Daughter benign Seizures Brother Heart Brother WPW syndrome; ablation unsuccessful -- too close to AV node other (Other) Other no unexplained sudden , crib deaths, unexplained syncope Social History Tobacco Use Smoking status: Never Smokeless tobacco: Never Vaping Use Vaping Use: Never used Substance Use Topics Alcohol use: Yes Comment: occasionally Drug use: No Current Outpatient Medications Medication Sig methylPREDNISolone (MEDROL DOSE-PACK) 4 mg Dose-Pack use as directed FOLLOW DIRECTIONS ON BACK OF FOIL PACK rimegepant (NURTEC ODT) 75 mg disintegrating tablet Take 1 dissolvable tablet by mouth at migraine onset. May repeat once per 24 hours as needed. tiZANidine (ZANAFLEX) 4 mg tablet take 1 tablet by mouth at bedtime if needed traZODone (DESYREL) 50 mg tablet take 1 AND 1/2 tablets by mouth at bedtime LORazepam (ATIVAN) 0.5 mg Take 1 tablet by mouth three times daily as needed for up to 30 days. magnesium oxide (MAG-OX) 400 mg (241.3 mg magnesium) tablet Take 1 tablet by mouth once daily. levocetirizine (XYZAL) 5 mg tablet Take 1 tablet by mouth once daily. fluticasone propionate (XHANCE) 93 mcg/actuation nasal spray Use 2 Sprays in the nose twice daily. LORazepam (ATIVAN) 0.5 mg albuterol HFA (PROVENTIL HFA, VENTOLIN HFA) 90 mcg/actuation inhaler Inhale 2 Puffs as instructed every 4 hours as needed. dicyclomine (BENTYL) 10 mg capsule take 1 capsule by mouth three times a day ondansetron (ZOFRAN) 4 mg tablet take 1 tablet by mouth every 8 hours if needed for nausea and vomiting pantoprazole DR (PROTONIX) 40 mg tablet Take 1 tablet by mouth once daily. XHANCE 93 mcg/actuation nasal spray phenazopyridine (PYRIDIUM, GERIDIUM) 200 mg tablet Take 200 mg by mouth three times daily as neededfor pain. cholestyramine (QUESTRAN) 4 gram packet take 1 packet ( 4 grams ) by mouth twice a day dissolve in 2 to 6 ounces OF WATER OR NONCARBONATED BEVERAGE with meals (Patient taking differently: as needed.) estradiol (NOBLE, VIVELLE-DOT) 0.025 mg/24 hr 1 Patch every Tuesday and Tuesday. Current Facility-Administered Medications Medication Dose Route Frequency onabotulinum toxin type A 200 Units injection (BOTOX) 200 Units INTRADERMAL q 3 MONTHS I have confirmed and edited, if necessary, the PFSH obtained by others. REVIEW OF SYSTEMS: GENERAL: No weight loss, malaise or fevers RESPIRATORY: Negative for cough, hemoptysis, wheezing, COPD, dyspnea or shortness of breath CARDIOVASCULAR: Negative for chest pain, leg swelling, hypertension, CHF or palpitations GI: See HPI PHYSICAL EXAM: General - Normal, healthy, cooperative, in no acute distress Able to interact verbally by video conference Psych - ORIENTATION: normal to time place, person and situation Mood/Affect: AFFECT AND MOOD: Normal Head/Neuro - Normal size and shape Facial appearance normal Pulmonary - respiratory effort normal Cardiovascular - patient describes extremities normal, warm, no cyanosis,no clubbing, and no edema Abdominal - Not performed Skin - abnormal lesions not visualized Motor - patient seen sitting with Normal appearing strength and coordination ASSESSMENT/PLAN: Ms. Yeung is a 57 year old female with a history of migraines, GERD, IBS and SVT presents for follow-up IBS and med refills. She admits her longstanding history of GI issues and diagnoses of IBS-D.She is currently taking Bentyl 10 mg 2-3 times daily. She admits to alternating constipation and diarrhea. She states she can go a few days without having a bowel movement and then have several bowelmovements in 1 day that progressively turn to loose stool. I recommend decreasing Bentyl as it may be causing constipation. I advised her to take Bentyl as needed for abdominal cramping. I recommend increasing her water intake and a daily fiber supplement such as Metamucil or Citrucel. She is curren tly taking pantoprazole 40 mg daily which controls her reflux to 100%. She denies breakthrough symptoms. The patient is agreeable with the above plan and encouraged to reach out with questions and concerns. ASSESSMENT/PLAN: 1. Gastroesophageal reflux disease, unspecified whether esophagitis present - ICD9: 530.81, ICD10: K21.9 (primary diagnosis) - Discussed lifestyle modifications including limiting caffeine, no meals three hours before sleep,and head of bed elevation - PANTOPRAZOLE 40 MG TABLET,DELAYED RELEASE 2. Irritable bowel syndrome with both constipation and diarrhea - ICD9: 564.1, ICD10: K58.2 - DICYCLOMINE 10 MG CAPSULE I spent more than 25 minutes [id number] with the patient and over half the time was devoted to counseling and/or coordination of care. This note was dictated using Programmr speech recognition software and may contain some errors that were a result of the program not accurately transcribing what was dictated. I have communicated my name and active licensure. The patient's identity and physical location wereverified at the time of this visit. Either the patient or their legal sales representative wire rope has been informed of the risks and benefits of -- and alternatives to -- treatment through a remote evaluation andconsents to proceed with the evaluation remotely. Jayde Gonzalez APRN.ROLAND documented in this encounterCleveland [facility]04-21-2023 Miscellaneous Notes* Telephone Encounter - Penny Jorge RN - 01/21/2023 2:09 PM EDT Called patient and relayed Nika's message. All questions answered. Patient verbalized understanding. Stella Jorge RN * Telephone Encounter - Penny Jorge RN - 01/21/2023 2:09 PM EDT Images from the original note were not included. SHANI Borjas Katherine Message Pool Hi Janie, Can we please relay message below regarding CMP results? Patient has not viewed in Easy[employer]. Thank you for completing your blood work. Kidney function is stable and liver function looks good.We can continue your migraine medications as prescribed. Your creatinine level is slightly elevatedso I encourage good hydration and avoidance of NSAID's like Ibuprofen, Aleve, Excedrin, etc. I recommend that you continue to monitor this closely with your primary care provider. Please let me know if you have any questions." Thank you! Sharron Hollis, KNUCKLE STRAP SEWER.ASBESTOS MICROSCOPIST documented in this encounterCleveland Clinic [facility] Hospital04-18-2023 History of Present illness Narrative* Va Hirsch - 01/18/2023 9:15 AM EDT POPULATION HEALTH NAVIGATION OUTREACH Action/FYI RP Outreach: LVM for Patient to call back and schedule MAHNAZ Consult for Hip pain [M25.559]. [phone]. Any agent can assist. Patient Identified by Name and : YES, via [employer] Outreach Outcome/Action Unable to reach patient: Left message Did you use a PCP flex slot to schedule this appointment? No Reason for Outreach Care Gap or Scheduling/Wellness visits Payer: Payor: BRENDON / Plan: [employer] PPO NETWORK GENERIC / Product Type: PPO / Care Gap Reviewed:: ORQ Reminder: Reminder note to check Health Maintenance for items below Health Maintenance items due: HEPATITIS B(1 of 3 - 3-dose series) Never done COVID-19 VACCINE(1) Never done SPIROMETRY Never done PNEUMOCOCCAL(2 - PCV) due on 11/16/2014 DIABETES SCREEN due on 04/02/2021 MAMMOGRAM due on 07/18/2021 DEPRESSION ASSESSMENT Never done Navigation Signature: Va Hirsch January 18, 2023 9:15 AM documented in this encounterCleveland Clinic [facility]04-14-2023 Miscellaneous Notes* Telephone Encounter - Kim Uma Lee - 01/14/2023 12:29 PM EDT Completed PA over CMM: MARCIAL YEUNG (Javier: [id number]) Drug Nurtec 75MG dispersible tablets Form [facility] Prior Authorization Form Pharmacy Prior Authorization Form for [employer] Members phone fax Sent to [facility] The plan will fax you a determination, typically within 1 to 5 business days. Kim Lee documented in this encounterCleveland Clinic [facility]04-13-2023 History of Present illness Narrative* Va Hirsch - 01/13/2023 2:00 PM EDT POPULATION HEALTH NAVIGATION OUTREACH Action/FYI RP OUTREACH: Contacted patient to schedule MAHNAZ Consult unable to leave voicemail Patient Identified by Name and : YES, via MyChart Outreach Outcome/Action Unable to reach patient: Phone number not valid / voicemail full Did you use a PCP flex slot to schedule this appointment? No Reason for Outreach Care Gap or Scheduling/Wellness visits Payer: Payor: BRENDON / Plan: [employer] PPO NETWORK GENERIC / Product Type: PPO / Care Gap Reviewed:: ORQ Reminder: Reminder note to check Health Maintenance for items below Health Maintenance items due: HEPATITIS B(1 of 3 - 3-dose series) Never done COVID-19 VACCINE(1) Never done SPIROMETRY Never done PNEUMOCOCCAL(2 - PCV) due on 11/16/2014 DIABETES SCREEN due on 04/02/2021 MAMMOGRAM due on 07/18/2021 DEPRESSION ASSESSMENT Never done Navigation Signature: Va Hirsch January 13, 2023 2:00 PM documented in this encounterCleveland Clinic [facility]04-11-2023 Miscellaneous Notes* Telephone Encounter - Penny Jorge RN - 01/11/2023 3:04 PM EDT Botox referral sent to pharmacy. Stella Jorge RN documented in this encounterCleveland Clinic [facility]04-11-2023 History of Present illness Narrative* Sharron Hollis APRN.ROLAND - 01/11/2023 1:00 PM EDT Headache Center Follow-up Visit Miscellaneous Patient Concerns: Ubrelvy has been effective for her. She feels Nurtec works better, was getting faster relief with Nurtec. She would like to switch back to Nurtec. [facility] for monitoring with medications. We will get a precert for an Oral Calcitonin Gene-Related Peptide Receptor Antagonist (GEPANT) Rimegepant for the rescue treatment of migraine. This patient meets AHS criteria for treatment of migraine with an oral small molecule CGRP antagonist GEPANT. The FDA has approved GEPANTS for the treatment of migraine. Specifically, the patient has 6 or more headaches per month, lasting 4 or more hours/day associated with photophobia, phonophobia, nausea for three or more months. Medication overuse headache has been ruled out.Patient will not use with another GEPANT. The patient has tried and failed the following : Anti-Migraine Rizatriptan (Maxalt) Sumatriptan (Imitrex, Sumavel) Analgesic Hydrocodone/Acetaminophen (Vicodin, [place]) Hydromorphone (Dilaudid) Meloxicam (Mobic) Meperidine (Demerol) Follow-Up Onabotulinum Toxin A (BotoxTM) for Migraine Indication: Chronic Intractable Migraine Treatment #: 15 Referral Expiration: 01/14/2023 Prior to the initiation of the FIRST treatment with Onabotulinum Toxin A, the patient reported the following average headache frequency over the past 3 MONTHS: Number of moderate-severe migraine days/month: 25 Number of mild migraine days/month: 0 Number of headache free days/month: 5 (120 headache-free hours) After treatment with Onabotulinum Toxin A: Number of moderate-severe migraine days/month: 1 Number of mild migraine days/month: 5 Number of headache free days/month: 24 (576 headache-free hours) Patient reduction in overall migraine days: Yes Patient reduction in moderate-severe migraine days: Yes Patient reduction of headache hours by 100 hours or more: Yes (reduction of 456 hours) Individual has obtained clinical benefit deemed significant by individual or prescriber (Y/N): Yes Patient's quality of life and ability to perform ADLs has improved (Y/N): Yes Side effects: none Wearing off: No The patient has been assessed for disorders which could contribute to breathing or swallowing difficulty, and there is no contraindication with PREEMPT Botox. There is no documented allergic reaction/hypersensitivity to any botulinum toxin and there is no active infection at proposed injection site. HEADACHE SCORES: Headache Questions 07/11/2022 09/28/2022 01/07/2023 ER visits since last office visit: 0 0 0 Hospital stays since last office visit 0 0 0 Limited ADLs in the last month: 0 0 0 Days missed from work or school in the last month: 0 1 0 Days headache pain free in the last month: 22 20 24 Days per month with ALL of the following symptoms - decreased productivity, light sensitivity and nausea: 0 1 1 Initial improvement of headache after botox injection at last visit: Much improved Much improved Much improved PRN medication usage in the last month: 7 5 6 Patient impression of improvement since last visit: No change Minimally improved No change HIT-6 07/11/2022 09/28/2022 01/07/2023 HIT-6 - - - HIT-6 48 (Little or no impact) 44 (Little or no impact) 48 (Little or no impact) KEYONNA - 2/7 SCORES 07/11/2022 09/28/2022 01/07/2023 KEYONNA-2 Score 1 1 1 KEYONNA-7 Score - - - Migraine Specific QOL - Higher scores indicate better HRQL 07/11/2022 09/28/2022 01/07/2023 Role Function-Restrictive Transformed Score (range: 0-100) 88.57 94.29 97.14 Role Function-Preventive Transformed Score (range: 0-100) 100 100 100 Emotional Function Transformed Score (range: 0-100) 100 100 100 PHQ-9 07/11/2022 09/28/2022 01/07/2023 Score 4 2 3 BP 136/85 (BP Site: Left Arm, BP Position: Sitting, BP Cuff Size: Regular Adult) Pulse 91 Ht 157.5 cm (5' 2") Wt 65.3 kg (144 lb) LMP 05/06/2014 SpO2 100% BMI 26.34 kg/m Patient name: Marcial Bradshawuire : 1965 ALLERGIES Allergen Reactions 2-Octyl Cyanoacryla* Hives Citalopram Other: See Comments Did not tolerate, ? Mental status changes Dust Intolerance Liquid Bandage [Enb* Rash blisters and rash Mold Other: See Comments Intolerance; itchy throat, runny nose Pneumococcal Vaccine Other: See Comments Pneumovax 23 [Pneum* Swelling tongue swollen arm Pollen Intolerance Propranolol Mental Status Change Smoke Intolerance Tetracycline GI Upset Abdominal pain/cramping UNIVERSAL PROTOCOL / SAFETY CHECKLIST Procedure: Onabotulinum toxin A for migraine Informed Consent Consent Obtained: Written [place] Protocol A moment to CARE was completed SIGN IN Personnel directly involved with the procedure wore the appropriate PPE Special Equipment: N/A Patient/Surrogate Stated/Verified: Patient name, Date of , Relevant allergies and Intended procedure TIME OUT Intended patient and procedure match the source document(s) Consent documented and matches the intended procedure No relevant labs, photos, and/or imaging studies were applicable for review. No correct side/site applicable for marking and visibility. No medications required for procedure. No fire risk assessment and interventions applicable. No implant(s) inserted. SIGN OUT No specimen collected. No instruments, equipment or retained foreign bodies applicable. Post-procedure follow-up management communicated and Plan of Care Visit completed when applicable Written Consent Obtained: Written LOT #: [id number] Expiration Date: Month: : 2024 Second vial: LOT #: [id number] Expiration Date: Month: : 2024 Injection Sites Left (Units) Left (Sites) Right (Units) Right (Sites) TOTAL (Units) Pesticide Chemist 5 1 5 1 10 Procerus Units: 5 Sites: 1 5 Frontalis 10 2 10 2 20 Temporalis optional follow the pain 20 5 4 1 20 5 4 1 50 Occipitalis optional follow the pain 15 10 3 2 15 10 3 2 50 Cervical PSP 10 2 10 2 20 Trapezius optional follow the pain 15 7.5 3 2 15 7.5 3 2 45 Total Units used: 200 Total Units wasted: 0 Patient tolerated procedure well. Prior Therapies Duration of Use Dose Side effect Analgesic Hydrocodone/Acetaminophen (Vicodin, [place]) Hydromorphone (Dilaudid) Meloxicam (Mobic) Meperidine (Demerol) Oxycodone Oxycodone/Acetaminophen (Percocet) Tramadol (Ultram) Anti-Anxiety Lorazepam (Ativan) Anti-Convulsant Gabapentin (Neurontin) Topiramate (Topamax, Trokendi XL, Qudexy) Anti-Depressant and Antipsychotic Amitriptyline (Elavil) Bupropion (Wellbutrin) Citalopram (Celexa) Fluoxetine (Prozac) Venlafaxine (Effexor) Antiemetics Metoclopramide Ondansetron Prochlorperazine Promethazine Anti-Migraine Rizatriptan (Maxalt) Sumatriptan (Imitrex, Sumavel) Blood Pressure Metoprolol (Lopressor,Toprol XL) Propranolol (Inderal) GEPANTS Ubrogepant (Ubrelvy) Rimegepant (Nurtec) Botulinum Toxin Onabotulinum Toxin A (Botox) Muscle Relaxer Cyclobenzaprine (Flexeril) Sleep Aids Trazodone (Desyrel) Zolpidem (Ambien) Supplements Magnesium Other Medications Dexamethasone (Decadron) Prednisone Over the Counter Medications Acetaminophen (Tylenol) Acetaminophen/Aspirin/Caffeine (Excedrin, Goody s) Aspirin Ibuprofen (Advil, Motrin) Naproxen sodium (Aleve) Sharron Hollis APRN.ASBESTOS MICROSCOPIST documented in this encounterCleveland Clinic [facility]04-11-2023 Instructions* Patient Instructions* Sharron Hollis APRN.ASBESTOS MICROSCOPIST - 01/11/2023 12:57 PM EDT AFTER VISIT CARE BOTOX INJECTION While these procedures can be extremely helpful as part of your headache treatment plan, they can irritate the muscles and tissues in your head, neck and shoulders. Proper follow-up care is important to avoid muscle spasms and temporary pain increase within the following 3-5 days after your clinic visit. Here are some tips to help decrease side-effects that may occur and maximize the effectiveness of your pain relief -HYDRATION Hydration is important to help nourish your muscles and tissues. Drink 60-80 oz of non caffeinated fluid at least for 3 days after your visit. -REST Rest will help avoid further irritation of muscle and tissues. Remember that you need to give your body time to adjust. NO strenuous activity for at least the first 24 hours after your visit. Gentle stretching, yoga, meditation or even swimming is OK and encouraged. -ICE/HEAT Since these procedures irritate muscles, there can be some swelling. Alternating ice and heat every3-5 times per day may help decrease this, while also optimizing pain relief Use cool gel packs for ice for 10 min. Use a warm moist towel covered with a dry towel on neck and shoulders. Alternate stretching each side of the neck. -STRETCHING Slow, gentle stretching of the neck and shoulders once every hour is helpful to avoid muscle spasms. -TREAT MUSCLE SPASMS If you are already prescribed a muscle relaxer such as baclofen, tizanidine or flexeril, use as directed. If you do not have one, talk to your provider to find out if this would be safe for you to use. Do not rub or massage the area for 48-72 hours. -OTHER No hair dyes or permanents for 24 hours. If you are paying out of pocket for Botox go online to Botox Savings Program and see if you qualifyfor reimbursement. Return in 3 months for your next Botox Injection documented in this encounterCleveland [facility]04-03-2023 Miscellaneous Notes* Telephone Encounter - Kim Lee - 01/03/2023 2:11 PM EDT Attempted to answer questions in prior auth pool ubrogepant (UBRELVY) 100 mg tablet Medication:ubrogepant (UBRELVY) 100 mg tablet More Information Ubrelvy_Traditional_Optimized_2020 Reply deadline: January Payer: [facility] [phone] Patients last visit was 10/05/2022 no updated documentation on Ubrelvy. Patient has a visit on 01/11/2023 for Botox can updated documentation be included in visit so that we can complete Renewal PA. Thank you, Kim Lee documented in this encounterCleveland Clinic [facility]03-28-2023 History of Present illness Narrative* Jayde Marrero - 12/28/2022 1:52 PM EDT POPULATION HEALTH NAVIGATION OUTREACH Action/FYI Pt scheduled Patient Identified by Name and : YES, via phone Outreach Outcome/Action Spoke to patient / parent / legal guardian: Patient scheduled Did you use a PCP flex slot to schedule this appointment? No Reason for Outreach Care Gap or Scheduling/Wellness visits Payer: Payor: BRENDON / Plan: [employer] PPO NETWORK GENERIC / Product Type: PPO / Care Gap Reviewed:: Specialty Scheduling Reminder: Reminder note to check Health Maintenance for items below Health Maintenance items due: HEPATITIS B(1 of 3 - 3-dose series) Never done COVID-19 VACCINE(1) Never done SPIROMETRY Never done PNEUMOCOCCAL(2 - PCV) due on 11/16/2014 DIABETES SCREEN due on 04/02/2021 MAMMOGRAM due on 07/18/2021 INFLUENZA(1) due on 06/03/2022 DEPRESSION ASSESSMENT Never done Navigation Signature: Jayde Marrero December 28, 2022 1:52 PM documented in this encounterCleveland Clinic [facility]03-27-2023 History of Present illness Narrative* Andrew Gonzalez MD - 12/27/2022 4:17 PM EDT Marcial Yeung is a 57 year old female who presents with the following concerns and complaints: Patient has underlying insomnia anxiety history of allergic rhinitis she complains of pain in the hip while she sleeps it seems to go away if she changes side but then the other hip will hurt she states when she is on her back she has heel pain we will have her see orthopedics for evaluationThis was a virtual visit she uses the Ativan once or twice weekly when she has to work ACTIVE PROBLEM LIST Asthma Cervical High 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 Positive Chronic Insomnia Anxiety Primary Insomnia Stress Incontinence in Female Encounter for Screening Colonoscopy 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) Gastro-Esophageal Reflux Disease Without Esophagitis Chronic Sinusitis, Unspecified Benign Neoplasm of Unspecified Ovary Asymptomatic Menopausal State Anxiety Disorder, Unspecified Acquired Absence of Both Cervix and Uterus Paroxysmal Supraventricular Tachycardia (Hcc) Palpitations Status Post Ablation of Accessory Bypass Tract Dyspareunia Chronic Mixed Headache Syndrome Chronic Migraine Without Aura, With Intractable Migraine, So Stated, With Status Migrainosus Intractable Chronic Migraine Without Aura and Without Status Migrainosus Chronic Daily Headache Musculoskeletal Pain Cervicalgia Chronic Tension-Type Headache, Intractable Reflux Esophagitis Intractable Chronic Migraine Without Aura and With Status Migrainosus Internal Hemorrhoids Migraine Without Aura and Without Status Migrainosus, Not Intractable Bilateral Occipital Neuralgia History of Fusion of Cervical Spine Irritable Bowel Syndrome With Diarrhea EXAM: LMP 05/06/2014 Patient in no acute distress full exam not performed Assessment / Plan: M25.559 Hip pain (primary encounter diagnosis) F41.9 Anxiety disorder, unspecified type J30.1 Seasonal allergic rhinitis due to pollen F51.01 Primary insomnia Appointment on 12/27/22 CONSULT TO ORTHOPAEDICS traZODone (DESYREL) 50 mg tablet LORazepam (ATIVAN) 0.5 mg magnesium oxide (MAG-OX) 400 mg (241.3 mg magnesium) tablet levocetirizine (XYZAL) 5 mg tablet fluticasone propionate (XHANCE) 93 mcg/actuation nasal spray Andrew Gonzalez MD documented in this encounterC[facility]23 Miscellaneous Notes* Telephone Encounter - Sharron Hollis APRN.CNP - 11/16/2022 7:55 AM EST The following approved medication requests have been transmitted electronically. Requested Prescriptions Signed Prescriptions Disp Refills tiZANidine (ZANAFLEX) 4 mg tablet 20 tablet 1 Sig: take 1 tablet by mouth at bedtime if needed Authorizing Provider: SHARRON HOLLIS APRN.CNP November 16, 2022 7:56 AM * Telephone Encounter - Kassidy Pruett [facility] - 11/16/2022 7:43 AM EST Physician: Sal Call from pharmacy requesting refill. Please E-Scribe Last OV: 10/05/2022 with Sal Future OV: 01/11/2023 with Sal Requested Prescriptions Pending Prescriptions Disp Refills tiZANidine (ZANAFLEX) 4 mg tablet [Pharmacy Med Name: TIZANIDINE HCL 4 MG TABLET] 20 tablet 1 Sig: take 1 tablet by mouth at bedtime if needed Pharmacy Name: [facility] documented in this encounterC[facility]02-01-2023 Miscellaneous Notes* Telephone Encounter - Andrew Gonzalez MD - 11/03/2022 4:43 PM EST Patient's request for medication is as follows Requested Prescriptions Signed Prescriptions Disp Refills LORazepam (ATIVAN) 0.5 mg 30 tablet 0 Sig: Take 1 tablet by mouth at bedtime as needed for up to 30 days. Order entered - notify patient.Pt overdue to be seen.Please schedule appointment for the patient innext month. Andrew Gonzalez MD * Telephone Encounter - Razia Hughes Ma - 11/03/2022 3:27 PM EST KEYANNA 04/13/22 NOV none Patient electronically sent a request for the following prescription(s) Requested Prescriptions Pending Prescriptions Disp Refills LORazepam (ATIVAN) 0.5 mg 30 tablet 0 Sig: Take 1 tablet by mouth at bedtime as needed for up to 30 days. Patient aware RX will be sent to pharmacy. No need to notify patient. Please review. Razia Hughes Ma documented in this encounterC[facility]01-25-2023 Miscellaneous Notes* Telephone Encounter - Champ Ruiz Pss - 10/27/2022 4:10 PM EST LVM and MC message to cb to reschedule O/v from 01/25/[address] Coker unavailable. Douglas Espinal documented in this [facility]01-11-2023 Nurse Note* Liyah Jones MA - 10/13/2022 1:08 PM EST Patient complains of palpitations after she had the flu. documented in this encounterCleveland [facility]01-11-2023 History of Present illness Narrative* Albina Luong MD - 10/13/2022 1:00 PM EST PRIMARY CARE PHYSICIAN: Andrew Gonzalez [facility] [place] [address] Patient Care Team: Andrew Gonzalez MD as PCP - General (Family Medicine) Albina Luong MD as Specialty [employer] (Cardiology) Lamont Michel DO as Specialty [employer] (Neurology) Jose Angel Coker DO as Specialty [employer] (Gastroenterology) Jean Wilcox as Specialty [employer] (Orthopedics) CHIEF COMPLAINT: Follow up for arrhythmia HISTORY OF PRESENT ILLNESS: Ms. Yeung is a 57 year old female who presents today for a cardiovascular medicine follow-up visit. History copied from previous notes, edited as needed: Dr. Luong's previous notes: Ms. Soto is a 52 year old female who presents today for evaluation of arrhythmia. She states that she recallsexperiencing symptoms suggestive of arrhythmia since a very young age, possibly age 8 or 9 years. She recalls experiencing palpitation, "fluttering" in the chest, and racing heartbeats. She [...] was referred to Dr. Mcknight at the [facility]. Her brother has WPW syndrome and was [...] momentary palpitations that she agrees might be "extra beats." She also describes more pro longed episodes of palpitations associated with rapid or [...] undergo a repeat attempt at catheter ablation. Additional history 11/22/2018 Dr. Luong: Ms. Soto underwent EP study with catheter ablation of a left posteroseptal sensory pathway in March 2018.She states that she has done reasonably well since the ablation procedure, not experiencing episodes of rapid arrhythmia as she did previously with the SVT. However she does have episodes of "high heart rates" with "chest hurting" and other episodes of "low heart rate" with "fluttering" in the chest. She does not experience these episodes on the same day. She experiences the high heart rates, which she believes involves heart rates in the range of 140s to 150s bpm, lasting several minutes and less commonly longer. After these episodes her heart rate might decrease but stay in the 100 bpm range for a few minutes. The episodes of "low heart rate" last for about a minute or two, with rate in the 40s bpm range. She is not aware of any triggering or alleviating factors for these episodes. She denies shortness of breath, orthopnea, lightheadedness or syncope. Interim History Dr. Luong 10/24/2019: Ms. Soto states that she has been doing reasonably well from a heart rhythm standpoint. She occasionally has brief palpitations that last minutes at most. She has not experienced any symptoms similar to the SVT that she had prior to catheter ablation. She denies chest pain, shortness of breath, orthopnea, PND, lightheadedness or syncope. Interim History Dr. Luong 08/04/2021: Ms. Yeung is doing well. She has occasional brief palpitation or elevated heart rate, but not for very long. No chest pain or shortness of breath, severe lightheadedness, near syncope or syncope. She sometimes has mild lightheadedness. She is scheduled for neck surgery 09/14/2021. Interim History Dr. Luong 10/13/2022: Ms. Yeung presents for follow-up evaluation of arrhythmia. She has been doing well in this regard, not aware of recurrent arrhythmia. She does have occasionally a very brief palpitation. She has had an illness recently, states she was tested positive forinfluenza A. She has noticed some increase in her heart rate around the time of this illness and afterwards during recovery, also has noticed some increase in her tendency for lightheadedness, particularly with changes in posture. I have confirmed and edited as necessary, the PFSH and ROS obtained by others. 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 flecainide; indication: symptomatic PSVT with WPW syndrome Other anxiety states Palpitations Paroxysmal supraventricular tachycardia (HCC) see "WPW Syndrome" Stress incontinence, female Unspecified asthma(493.90) 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; attempt at catheter ablation 11/2016 failed; she continues to experience intermittent palpitations and tachycardia despite treatment with flecainide; successful RFCA 03/2018 PAST SURGICAL HISTORY Procedure Laterality Date BLADDER SURGERY HX 11/2015 bladder sling BREAST AUGMENTATION WITH IMPLANT 11/2007 Breast augmentation CARDIAC MONITORING CONTINUOUS 05/25/2018 96 hours monitoring: sinus rhythm, sinus tachycardia; patient event activations and/or reported symptoms correlated with sinus rhythm and sinus tachycardia DELIVERY ONLY 85, 88,92 , low cervical X3 COLONOSCOPY 06/2021 EGD 2019 F LIGATION OF HEMORRHOID(S) 10/07/2020 IUD INSERTION ([facility] [employer])_*FL 08/30/2007 Mirena - removed LAPAROSCOPY SURG CHOLECYSTECTOMY 11/16/2017 [facility] OOPHORECTOMY, PART/TOTAL UNILAT/BILAT 2016 PAST SURGICAL HISTORY OF 09/2021 C4-C6 disc replacement S PK LAVH MD32OAIGY 2014 lavh RICKY biltareal salpingectomy SVT ABLATION W/ EP COMPLETE 11/24/2016 [facility], Dr. Mcknight; right midseptal AP unable to be ablated despite cryoablation and RF ablation attempts; AP described as not having capability for extremely rapid antegrade conduction SVT ABLATION W/ EP COMPLETE 03/28/2018 left posteroseptal AP just within the proximal CS; Stereotaxis RF with Carto guidance, successful elimination of AP conduction; no SVT inducible pre- or post-ablation; CCAG Dr. Luong TONSILLECTOMY & ADENOIDECTOMY <AGE 13 1968 VAGINAL HYSTERECTOMY SOCIAL HISTORY Social History Tobacco Use Smoking status: Never Smokeless tobacco: Never Vaping Use Vaping Use: Never used Substance Use Topics Alcohol use: Yes Comment: occasionally Drug use: No FAMILY HISTORY Problem Relation Age of Onset Thyroid Mother goiter other (Palpitations) Mother Asthma Father Asthma Son other (Palpitations) Son Thyroid Maternal Grandmother goiter other (Other) Maternal Grandfather young in MVA Emphysema Paternal Grandmother Heart Failure Paternal Grandmother other (tobacco use) Paternal Grandmother Heart disease Paternal Grandfather had a heart attack and at young age Stroke Paternal Grandfather Prostate Cancer Paternal Grandfather Asthma Daughter other (Brain tumor) Daughter benign Seizures Brother Heart Brother WPW syndrome; ablation unsuccessful -- too close to AV node other (Other) Other no unexplained sudden , crib deaths, unexplained syncope ALLERGIES: ALLERGIES Allergen Reactions 2-Octyl Cyanoacryla* Hives Citalopram Other: See Comments Did not tolerate, ? Mental status changes Dust Intolerance Liquid Bandage [Enb* Rash blisters and rash Mold Other: See Comments Intolerance; itchy throat, runny nose Pneumococcal Vaccine Other: See Comments Pneumovax 23 [Pneum* Swelling tongue swollen arm Pollen Intolerance Propranolol Mental Status Change Smoke Intolerance Tetracycline GI Upset Abdominal pain/cramping MEDICATIONS: codeine-guaiFENesin (GUAIFENESIN AC) 10-100 mg/5 mL syrup^Take 5 mL by mouth three times daily as needed.^Disp: ^Rfl: PREDNISONE ORAL^Take 20 mg by mouth. 2 tabs by mouth twice daily for 5 days.^Disp: ^Rfl: LORazepam (ATIVAN) 0.5 mg^^Disp: ^Rfl: albuterol HFA (PROVENTIL HFA, VENTOLIN HFA) 90 mcg/actuation inhaler^Inhale 2 Puffs as instructed every 4 hours as needed.^Disp: 1 Each^Rfl: 1 dicyclomine (BENTYL) 10 mg capsule^take 1 capsule by mouth three times a day^Disp: 90 capsule^Rfl: 2 ondansetron (ZOFRAN) 4 mg tablet^take 1 tablet by mouth every 8 hours if needed for nausea and vomiting^Disp: 30 tablet^Rfl: 1 tiZANidine (ZANAFLEX) 4 mg tablet^take 1 tablet by mouth at bedtime if needed^Disp: 20 tablet^Rfl: 1 traZODone (DESYREL) 50 mg tablet^take 1 AND 1/2 tablets by mouth at bedtime^Disp: 135 tablet^Rfl: [address] (PROTONIX) 40 mg tablet^Take 1 tablet by mouth once daily.^Disp: 30 tablet^Rfl: 5 magnesium oxide (MAG-OX) 400 mg (241.3 mg magnesium) tablet^Take 1 tablet by mouth once daily.^Disp: 90 tablet^Rfl: 3 ubrogepant (UBRELVY) 100 mg tablet^Take half to 1 tab at migraine onset. May repeat same dose once in 2 hours as needed.^Disp: 16 tablet^Rfl: 11 XHANCE 93 mcg/actuation nasal spray^^Disp: ^Rfl: phenazopyridine (PYRIDIUM, GERIDIUM) 200 mg tablet^Take 200 mg by mouth three times daily as neededfor pain. ^Disp: ^Rfl: cholestyramine (QUESTRAN) 4 gram packet^take 1 packet ( 4 grams ) by mouth twice a day dissolve in 2 to 6 ounces OF WATER OR NONCARBONATED BEVERAGE with meals^Disp: 60 Packet^Rfl: 5 (Patient taking differently: as needed.) ipratropium bromide (ATROVENT) 42 mcg (0.06 %) nasal spray^instill 2 sprays into each nostril two to three times a day if ne... (REFER TO PRESCRIPTION NOTES).^Disp: ^Rfl: Levocetirizine 5 mg tablet^Take 5 mg by mouth once daily. ^Disp: ^Rfl: estradiol (NOBLE, VIVELLE-DOT) 0.025 mg/24 hr^1 Patch every Tuesday and Tuesday.^Disp: ^Rfl: Review of Systems Constitutional: Positive for chills, fever (low grade, had Influenze A last week) and malaise/fatigue. Respiratory: Negative for cough, hemoptysis, sputum production and shortness of breath. Cardiovascular: Positive for palpitations (occasional). Negative for chest pain, orthopnea, leg swelling and PND. Gastrointestinal: Positive for constipation and nausea (chronic). Negative for abdominal pain, blood in stool, melena and vomiting. Genitourinary: Negative for hematuria. Neurological: Positive for dizziness. Negative for loss of consciousness. PHYSICAL EXAMINATION: BP 146/89 Pulse 75 Resp 18 Ht 5' 2" (1.58m) Wt 139 lb (63.1kg) SpO2 97[room air]% LMP 05/06/2014 BMI 25.42 kg/(m^2). Physical Exam Vitals reviewed. Constitutional: General: She is not in acute distress. Appearance: Normal appearance. HENT: Head: Normocephalic and atraumatic. Cardiovascular: Rate and Rhythm: Normal rate and regular rhythm. Heart sounds: Normal heart sounds, S1 normal and S2 normal. No murmur heard. No friction rub. Pulmonary: Effort: No respiratory distress. Breath sounds: Normal breath sounds. No wheezing, rhonchi or rales. Musculoskeletal: Cervical back: Neck supple. Right lower leg: No edema. Left lower leg: No edema. Skin: General: Skin is warm and dry. Neurological: General: No focal deficit present. Mental Status: She is alert and oriented to person, place, and time. Psychiatric: Mood and Affect: Mood normal. Behavior: Behavior normal. Thought Content: Thought content normal. CARDIOVASCULAR MEDICINE TESTING: Electrocardiogram: Sinus rhythm 67 bpm; normal conduction intervals (KY 126 ms, QRS 88 ms); QTc 443ms; nonspecific T wave abnormality; no obvious WPW pattern I have personally reviewed the Electrocardiogram. I spent a total of 20 minutes on the date of the service which included preparing to see the patient, [id number] patient care, completing clinical documentation, obtaining and/or reviewing separately obtained history, performing a medically appropriate examination, counseling and educating the pat ient/family/caregiver, ordering medications, tests, or procedures, communicating with other HCPs (not separately reported), independently interpreting results (not separately reported), communicatingresults to the patient/family/caregiver, and care coordination (not separately reported). ASSESSMENT/PLAN: 1. Paroxysmal supraventricular tachycardia (HCC) - ICD9: 427.0, ICD10: I47.1 (primary diagnosis) 2. 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 Status post ablation of accessory bypass tract - ICD9: V45.89, ICD10: Z98.890 4. Palpitations - ICD9: 785.1, ICD10: R00.2 IMPRESSION: Ms. Yeung seems to be reasonably stable from a heart rhythm standpoint, even in the face of a concomitant illness with influenza. I did reassure her that it would be expected for her to have an increase in palpitations, and increase in heart rate and other exacerbation of her symptoms while she is sick with an illness. Fortunately, it seems that she is recovering from the influenza illness and has not been having substantial arrhythmia as a consequence. I had a detailed discussion with Ms. Yeung regarding my evaluation and recommendations. After ourdiscussion, Ms. Yeung expressed her understanding and I answered all her questions to her apparent satisfaction. PLAN AND RECOMMENDATIONS: Continue with current plan of care from EP standpoint. Return in about 1 year (around 10/13/2023) for Dr. Luong, EKG. Albina Luong MD 10/13/2022 Medical Decision Making: Problems: Low: Stable chronic illness Data: Unique test result(s) reviewed: 1 Unique test(s) ordered: 1 Risk: Low: Low risk from testing/treatment Moderate: Drug management Medical Decision Making Level: 3 - Low documented in this encounterC[facility]01-05-2023 Miscellaneous Notes* Telephone Encounter - Leticia Barrett RN - 10/07/2022 10:09 AM EST Pt notified Dr Luong agrees with previous recommendations. Pt voices understanding. Leticia Barrett RN * Telephone Encounter - Leticia Barrett RN - 10/07/2022 10:09 AM EST Images from the original note were not included. Albina Luong MD You 1 hour ago (9:04 AM) Noted, thank you. Agree with recommendations. Albina Luong MD October 07, 2022 9:04 AM * Telephone Encounter - Leticia Barrett RN - 10/07/2022 8:21 AM EST Pt calls to report elevated walking HR 120s bpm. She reports resting HR 80s-90s bpm. Pt reports feeling usual palps twice yesterday. Pt tested positive for Influenza A yesterday. She saw her PCP who recommend she call our office with elevated HR. BP yesterday 142/92 mmHg. Pt reports she is febrile. Pt encouraged to increase po water/gatorade intake; use OTC antipyretic; rest. Pt has Overdue annual OV 10/13/22. Leticia Barrett RN documented in this encounterC[facility]01-05-2023 Miscellaneous Notes* Telephone Encounter - Carolyne Powell LPN - 10/07/2022 8:27 AM EST Phone call placed patient advised (see prior provider encounter) Patient verbalized understanding, agreed with plan of care. Carolyne Powell LPN * Telephone Encounter - Bia Hooker APRN.CNP - 10/07/2022 8:11 AM EST Patient is positive for influenza A. Patient is negative for COVID and influenza B. Please notify thank you documented in this encounterCleveland Clinic [facility]01-04-2023 Instructions* Patient Instructions* Francheska Ambrocio PA-C - 10/06/2022 3:30 PM EST [facility] PATIENT INFO INFLUENZA INTRODUCTION Influenza (commonly called the flu) is a highly contagious illness that can occur in children or adults of any age. It occurs more often in the winter months because people spend more time in close contact with one another. The flu is spread easily from xorxda-ix-locznt by coughing, sneezing, or touching surfaces. Every year, complications of the flu require more than 200,000 people in the [place] to be hospitalized. Serious illness is more likely in the very young, older adults, women, and people who have certain health problems such as asthma or other forms of lung disease. There have been several widespread flu outbreaks (called pandemics), which led to the deaths of many people worldwide. These outbreaks occurred when new strains of influenza viruses formed (often from pigs or birds) and humans became infected because they had no immunity to these viruses. FLU SYMPTOMS Symptoms of seasonal flu can vary from person to person, but usually include: Fever (temperature higher than 100 F or 37.8 C) Headache and muscle aches Fatigue Cough and sore throat may also be present People with the flu usually have a fever for two to five days. This is different than fever caused by other upper respiratory viruses, which usually resolve after 24 to 48 hours. Some people have cold-like symptoms (runny nose, sore throat) during the flu while others have fever and muscle aches. Flu symptoms usually improve over two to five days, although the illness may last for a week or more. Weakness and fatigue may persist for several weeks Flu complications -- Complications of influenza occur in some people; pneumonia is the most common complication. Pneumonia is a serious infection of the lungs, and is more likely to occur in people over the age of 65, people who live in intermediate designer care facilities (nursing homes), and those with other illnesses such as diabetes or conditions affecting the heart or lungs. FLU DIAGNOSIS Influenza is usually diagnosed based on symptoms (fever, cough and muscle aches). Lab testing for influenza is performed in certain cases, such as during a new influenza outbreak in a community. FLU TREATMENT When to seek help -- Most people with the flu recover within one to two weeks without treatment. However, serious complications of the flu can occur. Call your doctor or nurse immediately if: You feel short of breath or have trouble breathing You have pain or pressure in your chest or stomach You have signs of being dehydrated, such as dizziness when standing or not passing urine You feel confused You cannot stop vomiting or you cannot drink enough fluids There are several groups of people who are at increased risk for flu complications. These include women, young children (<5 years of age, and especially <2 years of age), people ?65 years of age, and people with certain diseases such as chronic lung disease (such as asthma), heart disease, diabetes, immunosuppressing conditions (such as HIV infection or transplantation), and some other diseases. If you or your child has flu symptoms and is at increased risk of flu complications, you should call your healthcare provider. Treat symptoms -- Treating the symptoms of influenza can help you to feel better, but will not makethe flu go away faster. Rest until the flu is fully resolved, especially if the illness has been severe Fluids -- Drink enough fluids so that you do not become dehydrated. One way to circuit court judge if you are drinking enough is to look at the color of your urine. Normally, urine should be light yellow to nearlycolorless. If you are drinking enough, you should pass urine every three to five hours. Acetaminophen (such as Tylenol and other brands) can relieve fever, headache, and muscle aches. Aspirin, and medicines that include aspirin (eg, bismuth subsalicylate; PeptoBismol), are not recommended for children under 18 because aspirin can lead to a serious disease called Kyrie syndrome. Cough medicines are not usually helpful; cough usually resolves without treatment. We do not recommend cough or cold medicine for children under age six years. Antiviral treatment -- Antiviral medicines can be used to treat or prevent influenza. When used as a treatment, the medicine does not eliminate flu symptoms, although it can reduce the severity and duration of symptoms by about one day. Not every person with influenza needs an antiviral medicine; the decision is based upon your risk of developing complications of influenza. Antiviral treatment is most effective for seasonal influenza when it is taken within the first 48 hours of flu symptoms. Side effects -- Zanamivir and oseltamivir can cause mild side effects, including nausea and vomiting; zanamivir, which is inhaled, can cause difficulty breathing in some cases. Most people are able to continue the medicine despite the side effects. Antibiotics -- Antibiotics are NOT useful for treating viral illnesses such as influenza. Antibiotics should only used if there is a bacterial complication of the flu such as bacterial pneumonia, earinfection, or sinusitis. Antibiotics can cause side effects and lead to development of antibiotic resistance. documented in this encounterCleveland Clinic [facility]01-04-2023 History of Present illness Narrative* Francheska Ambrocio PA-C - 10/06/2022 2:11 PM EST Subjective HPI HPI Marcial Yeung is a 57 year old female who presents today for CC of fever 100.5, sneezing, cough, chest congestion, body aches, sore throat since Tuesday. was positive for covid on 09/19, but tested positive on . Also exposed to RSV. Pt has tried motrin and Tylenol every 3 hours, as well as neyda seltzer cold, as well as old tessalon perles. Has also used albuterol inhaler, which helped somewhat. PMH significant for WPW, but notes she had an ablation ~3-4 years ago. Planning to follow up with him next week. No palpitations, SOB, or chest pain. BP 142/92 Pulse 118 Temp 37.9 C (100.3 F) Resp 20 Wt 65.8 kg (145 lb) LMP 05/06/2014 SpO2 95% BMI 26.52 kg/m ALLERGIES Allergen Reactions 2-Octyl Cyanoacryla* Hives Citalopram Other: See Comments Did not tolerate, ? Mental status changes Dust Intolerance Liquid Bandage [Enb* Rash blisters and rash Mold Other: See Comments Intolerance; itchy throat, runny nose Pneumococcal Vaccine Other: See Comments Pneumovax 23 [Pneum* Swelling tongue swollen arm Pollen Intolerance Propranolol Mental Status Change Smoke Intolerance Tetracycline GI Upset Abdominal pain/cramping ACTIVE PROBLEM LIST Asthma Cervical High 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 Positive Chronic Insomnia Anxiety Primary Insomnia Stress Incontinence in Female Encounter for Screening Colonoscopy 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 Wpw (Uwtii-Ftswlcxan-Jledz Syndrome) Gastro-Esophageal Reflux Disease Without Esophagitis Chronic Sinusitis, Unspecified Benign Neoplasm of Unspecified Ovary Asymptomatic Menopausal State Anxiety Disorder, Unspecified Acquired Absence of Both Cervix and Uterus Paroxysmal Supraventricular Tachycardia (Hcc) Palpitations Status Post Ablation of Accessory Bypass Tract Dyspareunia Chronic Mixed Headache Syndrome Chronic Migraine Without Aura, With Intractable Migraine, So Stated, With Status Migrainosus Intractable Chronic Migraine Without Aura and Without Status Migrainosus Chronic Daily Headache Musculoskeletal Pain Cervicalgia Chronic Tension-Type Headache, Intractable Reflux Esophagitis Intractable Chronic Migraine Without Aura and With Status Migrainosus Internal Hemorrhoids Migraine Without Aura and Without Status Migrainosus, Not Intractable Bilateral Occipital Neuralgia History of Fusion of Cervical Spine Irritable Bowel Syndrome With Diarrhea Family History Problem Relation Age of Onset Thyroid Mother goiter other (Palpitations) Mother Asthma Father Asthma Son other (Palpitations) Son Thyroid Maternal Grandmother goiter other (Other) Maternal Grandfather young in MVA Emphysema Paternal Grandmother Heart Failure Paternal Grandmother other (tobacco use) Paternal Grandmother Heart disease Paternal Grandfather had a heart attack and at young age Stroke Paternal Grandfather Prostate Cancer Paternal Grandfather Asthma Daughter other (Brain tumor) Daughter benign Seizures Brother Heart Brother WPW syndrome; ablation unsuccessful -- too close to AV node other (Other) Other no unexplained sudden , crib deaths, unexplained syncope Social History Tobacco Use Smoking status: Never Smokeless tobacco: Never Vaping Use Vaping Use: Never used Substance Use Topics Alcohol use: Yes Comment: occasionally Drug use: No Review of Systems Constitutional: Positive for chills, fever and malaise/fatigue. HENT: Positive for ear pain and sore throat. Negative for congestion and sinus pain. Respiratory: Positive for cough. Negative for sputum production, shortness of breath and wheezing. Cardiovascular: Negative for chest pain. Neurological: Negative for headaches. Objective BP 142/92 Pulse 118 Temp 37.9 C (100.3 F) Resp 20 Wt 65.8 kg (145 lb) LMP 05/06/2014 SpO2 95% BMI 26.52 kg/m Physical Exam Constitutional: General: She is not in acute distress. Appearance: She is well-developed. She is ill-appearing (Mild; Generally fatigued appearance.). Sheis not toxic-appearing. HENT: Head: Normocephalic. Nose: Mucosal edema present. No rhinorrhea. Right Sinus: No maxillary sinus tenderness or frontal sinus tenderness. Left Sinus: No maxillary sinus tenderness or frontal sinus tenderness. Mouth/Throat: Pharynx: Uvula midline. No oropharyngeal exudate or posterior oropharyngeal erythema. Tonsils: No tonsillar abscesses. Eyes: General: Lids are normal. Conjunctiva/sclera: Conjunctivae normal. Cardiovascular: Rate and Rhythm: Normal rate and regular rhythm. Heart sounds: S1 normal and S2 normal. No friction rub. Pulmonary: Effort: Pulmonary effort is normal. Breath sounds: Decreased breath sounds (Mildly diminished bilaterally) present. No wheezing, rhonchi or rales. Comments: Deep bronchial sounding cough Lymphadenopathy: Head: Right side of head: No submental, submandibular, tonsillar, preauricular, posterior auricular or occipital adenopathy. Left side of head: No submental, submandibular, tonsillar, preauricular, posterior auricular or occipital adenopathy. Cervical: Right cervical: No superficial or posterior cervical adenopathy. Left cervical: No superficial or posterior cervical adenopathy. Neurological: Mental Status: She is alert and oriented to person, place, and time. ASSESSMENT/PLAN: 1. Acute cough - ICD9: 786.2, ICD10: R05.1 (primary diagnosis) Suspect flu based on presentation. Covid and flu testing ordered; Results will be released to [facility] [place] in 24-48 hours. Discussed quarantine, social distancing, hand washing/proper hygiene. Rest, fluids, OTC medications discussed. - COVID WITH FLUA+B, ROUTINE - XR CHEST 2V FRONTAL/LAT - CODEINE 10 MG-GUAIFENESIN 100 MG/5 ML ORAL LIQUID - ALBUTEROL SULFATE HFA 90 MCG/ACTUATION AEROSOL INHALER - PREDNISONE 20 MG TABLET 2. Flu-like symptoms - ICD9: 780.99, ICD10: R68.89 CXR negative for acute pathology. Will tx for suspected flu/viral bronchitis. Rx for prednisone printed (only advised to fill if HR <90-100, after the temperature breaks) and scheduled dosing of albuterol inhaler. Rx for cheratussin, as patient is having many issues falling asleep at night- mikaela nguyen discussed indications, potential adverse effects, and risks associated with codeine use- warned to use as infrequently as possible and to avoid driving/operating heavy machinery etc, while taking- only use prior to bed- pt expressed understanding Discussed medication indications, proper use, and potential adverse effects. All questions and concerns addressed to patient satisfaction. Pt advised to see PCP if symptoms persist or progress. Reviewed red flags with patient and when to seek care sooner. The patient indicates understanding of these issues and agrees with the plan. Francheska Ambrocio PA-C documented in this [facility]12-29-2022 Miscellaneous Notes* Telephone Encounter - Nikia Mitchell RN - 09/30/2022 2:45 PM EST Last office visit: 06/12/21 Future office visit: 01/25/23 Pharmacy calls in requesting the following refill(s): Requested Prescriptions Pending Prescriptions Disp Refills dicyclomine (BENTYL) 10 mg capsule [Pharmacy Med Name: DICYCLOMINE 10 MG CAPSULE] 90 capsule 2 Sig: take 1 capsule by mouth three times a day Nikia Mitchell RN documented in this [facility]12-27-2022 Miscellaneous Notes* Telephone Encounter - Nikia Mitchell RN - 09/28/2022 8:46 AM EST Last office visit: 06/12/21 Future office visit: not scheduled Pharmacy calls in requesting the following refill(s): Requested Prescriptions Pending Prescriptions Disp Refills ondansetron (ZOFRAN) 4 mg tablet [Pharmacy Med Name: ONDANSETRON HCL 4 MG TABLET] 30 tablet 1 Sig: take 1 tablet by mouth every 8 hours if needed for nausea and vomiting Nikia Mitchell RN documented in this [facility]12-22-2022 Miscellaneous Notes* Telephone Encounter - Sharron Hollis APRN.CNP - 09/23/2022 10:41 AM EST The following approved medication requests have been transmitted electronically. Requested Prescriptions Signed Prescriptions Disp Refills tiZANidine (ZANAFLEX) 4 mg tablet 20 tablet 1 Sig: take 1 tablet by mouth at bedtime if needed Authorizing Provider: SHARRON HOLLIS APRN.CNP September 23, 2022 10:41 AM * Telephone Encounter - Lynette Mosquera - 09/23/2022 9:22 AM EST Physician: Sal Call from patient requesting refill. Please E-Scribe Last office visit 07/13/2022 with Sal in person Next office visit 10/05/2022 with Sal in person Requested Prescriptions Pending Prescriptions Disp Refills tiZANidine (ZANAFLEX) 4 mg tablet [Pharmacy Med Name: TIZANIDINE HCL 4 MG TABLET] 20 tablet 2 Sig: take 1 tablet by mouth at bedtime if needed [facility] Demetri [facility] Miscellaneous Notes* Telephone Encounter - Razia Hughes Ma - 09/07/2022 10:11 AM EST KEYANNA 04/13/22 NOV none Pharmacy electronically sent a request for the following prescription(s) Requested Prescriptions Pending Prescriptions Disp Refills traZODone (DESYREL) 50 mg tablet [Pharmacy Med Name: TRAZODONE 50 MG TABLET] 135 tablet 0 Sig: take 1 AND 1/2 tablets by mouth at bedtime Patient aware RX will be sent to pharmacy. No need to notify patient. Please review. Razia Hughes Ma [facility] History and physical note * Chastity Mujica APRN.ROLAND - 09/01/2022 2:46 PM EST HISTORY AND PHYSICAL EXAMINATION SERVICE DATE: 09/01/2022 SERVICE TIME: 3:09 PM PRIMARY CARE PHYSICIAN: Andrew Gonzalez MD REASON FOR VISIT: Marcial Yeung is a 57 year old female who is scheduled for Procedure(s) with comments: LIGATION OF INTERNAL HEMORRHOIDS 2 OR MORE COLUMNS/GROUPS VIA MULTIPLE SUTURE LIGATION W/O IMAGE GUIDANCE (N/A) - Doppler guided hem artery ligation at the request of Dr. Dulce Hoover for consultation. My final recommendation will be communicated back to the requesting physician by way of shared medical record or letter. Subjective The patient has the following: ACTIVE PROBLEM LIST Asthma Cervical High 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 Positive Chronic Insomnia Anxiety Primary Insomnia Stress Incontinence in Female Encounter for Screening Colonoscopy 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 Wpw (Dvuzh-Qbmjvvigu-Umagy Syndrome) Gastro-Esophageal Reflux Disease Without Esophagitis Chronic Sinusitis, Unspecified Benign Neoplasm of Unspecified Ovary Asymptomatic Menopausal State Anxiety Disorder, Unspecified Acquired Absence of Both Cervix and Uterus Paroxysmal Supraventricular Tachycardia (Hcc) Palpitations Status Post Ablation of Accessory Bypass Tract Dyspareunia Chronic Mixed Headache Syndrome Chronic Migraine Without Aura, With Intractable Migraine, So Stated, With Status Migrainosus Intractable Chronic Migraine Without Aura and Without Status Migrainosus Chronic Daily Headache Musculoskeletal Pain Cervicalgia Chronic Tension-Type Headache, Intractable Reflux Esophagitis Intractable Chronic Migraine Without Aura and With Status Migrainosus Internal Hemorrhoids Migraine Without Aura and Without Status Migrainosus, Not Intractable Bilateral Occipital Neuralgia History of Fusion of Cervical Spine Irritable Bowel Syndrome With Diarrhea COVID-19 Immunization Status Overdue - COVID-19 VACCINE (1) Overdue - never done No completion, postpone, frequency change, or communication history exists for this topic. CHIEF COMPLAINT: Pre-op exam HPI: VIKASH is a 57 yo seen for PAC due to scheduled above surgery because of internal hemorrhoids. 06/10/2022 Dr. Hoover INTERVAL HISTORY OF PRESENT ILLNESS: Marcial is a 56-year-old female status post Doppler guided hemorrhoid artery ligation in October 2020. This helped her symptoms. She was doing well until her recent neck surgery when she became constipated. She can now feel prolapsing tissue.. They are swollen and burning. It hurts to sit at times. There has been minimal bleeding. She presents today to discuss surgical management. REVIEW OF SYSTEMS: General: No weight loss, malaise or fevers. Neurological: Positive for: headaches (rx as needed, receiving Botox injections). Negative for: cerebral palsy, BALANCER SCALE tumor, multiple sclerosis, Parkinson's disease, peripheral neuropathy, seizures, TIA and strokes. Respiratory: Positive for: asthma (rx as needed). Negative for: COPD, pneumonia within 6 weeks, tobacco use, URI < 2 weeks and obstructive sleep apnea. Cardiovascular: Positive for: arrhythmia (WPW s/p ablation, following [facility] cardiology) Negative for: anticoagulation therapy, atrial fibrillation, CAD, chest pain, CHF, congenital heart defect, DVT/PE, hyperlipidemia, hypertension, recent VA, murmur/valvular heart disease, open heart surgery and valve surgery. GI: See HPI. Positive for: GERD (on rx) and irritable bowel syndrome (rx as needed, following gastro) Negative for: dysphagia, hepatitis, inflammatory bowel disease, liver disease, nausea, pancreatitis, vomiting and ETOH >2 drinks/day. : No history of dysuria, frequency or incontinence, stones or chronic kidney disease. No difficulty urinating, nocturia > 1 time per night or hematuria. SPRING INTERN: Negative for abnormal vaginal bleeding, abnormal vaginal discharge. Endocrine: No history of diabetes. Has not taken steroids within the past 30 days. No history of endocrinological symptoms or problems. Hematology: No history of bleeding or clotting disorder. Patient is not taking anti-coagulation or platelet medications. No history of hematological symptoms or problems. Oncology: No history of CA metastasis, chemo within 30 days, or radiotherapy within 90 days. No history of oncological symptoms or problems. Psych: No history of psychiatric symptoms or problems. Musculoskeletal: S/p cervical fusion Skin: Negative for lesions, rash and itching. 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 flecainide; indication: symptomatic PSVT with WPW syndrome Other anxiety states Palpitations Paroxysmal supraventricular tachycardia (HCC) see "WPW Syndrome" Stress incontinence, female Unspecified asthma(493.90) WPW (Vryzr-Woxxhjfmv-Vpgni syndrome) associated with symptomatic SVT; attempt at catheter ablation 11/2016 failed; she continues to experience intermittent palpitations and tachycardia despite treatment with flecainide; successful RFCA 03/2018 PAST SURGICAL HISTORY Procedure Laterality Date BLADDER SURGERY HX 11/2015 bladder sling BREAST AUGMENTATION WITH IMPLANT 11/2007 Breast augmentation CARDIAC MONITORING CONTINUOUS 05/25/2018 96 hours monitoring: sinus rhythm, sinus tachycardia; patient event activations and/or reported symptoms correlated with sinus rhythm and sinus tachycardia DELIVERY ONLY 85, 88,92 , low cervical X3 COLONOSCOPY 06/2021 EGD 2019 LIGATION OF HEMORRHOID(S) 10/07/2020 IUD INSERTION ([facility])_*FL 08/30/2007 Mirena - removed LAPAROSCOPY SURG CHOLECYSTECTOMY 11/16/2017 [facility] OOPHORECTOMY, PART/TOTAL UNILAT/BILAT 2017 PAST SURGICAL HISTORY OF 09/2021 C4-C6 disc replacement S PK LAVH [id number] 2013 lavh RICKY biltareal salpingectomy SVT ABLATION W/ EP COMPLETE 11/24/2016 [facility], Dr. Mcknight; right midseptal AP unable to be ablated despite cryoablation and RF ablation attempts; AP described as not having capability for extremely rapid antegrade conduction SVT ABLATION W/ EP COMPLETE 03/28/2018 left posteroseptal AP just within the proximal CS; Stereotaxis RF with Carto guidance, successful elimination of AP conduction; no SVT inducible pre- or post-ablation; [facility] Dr. Luong TONSILLECTOMY & ADENOIDECTOMY <AGE 13 1969 VAGINAL HYSTERECTOMY FAMILY HISTORY Problem Relation Age of Onset Thyroid Mother goiter other (Palpitations) Mother Asthma Father Asthma Son other (Palpitations) Son Thyroid Maternal Grandmother goiter other (Other) Maternal Grandfather young in MVA Emphysema Paternal Grandmother Heart Failure Paternal Grandmother other (tobacco use) Paternal Grandmother Heart disease Paternal Grandfather had a heart attack and at young age Stroke Paternal Grandfather Prostate Cancer Paternal Grandfather Asthma Daughter other (Brain tumor) Daughter benign Seizures Brother Heart Brother WPW syndrome; ablation unsuccessful -- too close to AV node other (Other) Other no unexplained sudden , crib deaths, unexplained syncope Social History Tobacco Use Smoking status: Never Smokeless tobacco: Never Vaping Use Vaping Use: Never used Substance Use Topics Alcohol use: Yes Comment: occasionally Drug use: No Prior to Admission medications as of 09/01/22 1444 Medication Sig Last Dose Taking tiZANidine (ZANAFLEX) 4 mg tablet Take 1 tablet by mouth at bedtime as needed. as needed Taking Yes traZODone (DESYREL) 50 mg tablet take 1 and 1/2 tablet by mouth at bedtime Taking Yes pantoprazole DR (PROTONIX) 40 mg tablet Take 1 tablet by mouth once daily. Taking Yes dicyclomine (BENTYL) 10 mg capsule Take 1 capsule by mouth three times daily. Taking Yes magnesium oxide (MAG-OX) 400 mg (241.3 mg magnesium) tablet Take 1 tablet by mouth once daily. Taking Yes ondansetron (ZOFRAN) 4 mg tablet take 1 tablet by mouth every 8 hours if needed for nausea and vomiting Taking Yes ubrogepant (UBRELVY) 100 mg tablet Take half to 1 tab at migraine onset. May repeat same dose once in 2 hours as needed. Taking Yes XHANCE 93 mcg/actuation nasal spray Taking Yes phenazopyridine (PYRIDIUM, GERIDIUM) 200 mg tablet Take 200 mg by mouth three times daily as neededfor pain. Taking Yes ipratropium bromide (ATROVENT) 42 mcg (0.06 %) nasal spray instill 2 sprays into each nostril two to three times a day if ne... (REFER TO PRESCRIPTION NOTES). Taking Yes Levocetirizine 5 mg tablet Take 5 mg by mouth once daily. Taking Yes albuterol HFA (VENTOLIN HFA) 90 mcg/actuation inhaler Inhale 2 Puffs as instructed every 4 hours asneeded for Wheezing/Shortness of Breath. Taking Yes estradiol (NOBLE, VIVELLE-DOT) 0.025 mg/24 hr 1 Patch every Tuesday and Tuesday. Taking Yes cholestyramine (QUESTRAN) 4 gram packet take 1 packet ( 4 grams ) by mouth twice a day dissolve in 2 to 6 ounces OF WATER OR NONCARBONATED BEVERAGE with meals Patient taking differently: as needed. No medication comments found. ALLERGIES Allergen Reactions 2-Octyl Cyanoacryla* Hives Citalopram Other: See Comments Did not tolerate, ? Mental status changes Dust Intolerance Liquid Bandage [Enb* Rash blisters and rash Mold Other: See Comments Intolerance; itchy throat, runny nose Pneumococcal Vaccine Other: See Comments Pneumovax 23 [Pneum* Swelling tongue swollen arm Pollen Intolerance Propranolol Mental Status Change Smoke Intolerance Tetracycline GI Upset Abdominal pain/cramping Objective PHYSICAL EXAM: General: alert and oriented (x3) and healthy appearance. Pertinent negatives noted - not distressed. Skin: normal color, no rash or lesions. HEENT: EOM intact and pupils equal round. Pertinent negatives noted - no carotid bruit. Cardiovascular: regular rate and rhythm, normal S1 and S2, no rub, murmurs, or gallop. Respiratory: normal breath sounds, no wheezes or crackles. No chest wall deformity or tenderness. Abdomen: soft. Pertinent negatives noted - not tender. Extremities: no deformity, no edema or tenderness, no joint swelling or clubbing. Neurological: normal cognition and motor skills. Gait normal. No weakness or sensory deficit. PAIN ASSESSMENT: VITALS: BP 112/78 Pulse 62 Temp (Src) 97.7 (Temporal) Resp 16 Ht 5' 2" (1.58m) Wt 146 lb (66.2kg) SpO2 99% LMP 05/06/2014 BMI 26.70 kg/(m^2). Diagnostic tests reviewed for today's visit: Lab [...] date range. No results found for: HBA1C No results found for this or any previous visit (from the past 8760 hour(s)). No results found for this or any previous visit (from the past 55843 hour(s)). 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, following [facility] cardiology, denies CP, palpitations, or SOB Gastro-esophageal reflux disease without esophagitis Assessment: controlled on rx Palpitations Assessment: hx rare, no rx, asymptomatic currently Anxiety disorder, unspecified Assessment: hx, no current issues per pt Asthma Assessment: controlled with rx as needed Chronic insomnia Assessment: rx as needed History of fusion of cervical spine Assessment: h/o, good CROM Internal hemorrhoids Assessment: pending surgery Irritable bowel syndrome with diarrhea Assessment: rx as needed, following [facility] gastro Rick Activity Status Index: METS: Climb a flight of stairs or walk up a hill (5.50 METs) DASI Score: 5.5 Patient denies any chest pain or undue shortness of breath with the above physical activity. Clinical Frailty Scale: 3. Well, with treated comorbid disease STOP-Bang Score: Patient over 50 years old Denies snoring loudly Denies feeling tired, fatigued, or sleepy during the daytime Has not been observed to stop breathing or choking/gasping during sleep Denies having high blood pressure BMI less than or equal to 35 kg/m^2 Does not have a large neck Non-male patient STOP-Bang Score: 1 [id number] Score: Age: <65 Sex: female CHF history: No Hypertension history: No Stroke/TIA/thromboembolism history: No Vascular disease history: No Diabetes history: No [id number] Score: 1 ARISCAT Score: Age: 51-80 Preoperative SpO2: >=96% Respiratory infection in the last month: No Preoperative anemia: No Surgical incision: peripheral Duration of surgery: <2 hrs Emergency procedure: No ARISCAT Score: 3 ASA Class: 2 ANESTHESIA FINDINGS: Intubation History: No history of difficult intubation Significant Anesthesia Considerations: potential postop nausea/vomiting Airway History: No history of difficult airway I - PHYSICAL EVALUATION AIRWAY Patient intubated: No. Tracheostomy tube not present Mallampati: II. TM distance: >3 FB. Neck ROM: full ROM without neurological symptoms. Mouth opening: adequate. Short neck: no. Thick neck: no Wallace present: no Additional comments: +TMJ dysfunction, left. DENTAL Dental findings: teeth intact. Additional comments: Crowns/back. II - ANESTHESIA PLAN ASA Score: 2 Anesthetic Plan: other Anesthetic plan additional comments: *PACC/TCI - anesthesia choice. Beta Vernon Monitoring Plan Post Procedure Analgesic Plan Informed Consent Anesthetic risks, benefits, alternatives, personnel and consent discussed: yes. Patient / Responsible Libertarian agrees to proceed: yes Patient / Surrogate agrees to blood products: blood products not planned Prepared for Surgery: optimally prepared for surgery. CONSULTS: Patient does not require consults for optimization at this time Planned Anesthetic: other anesthesia choice The Following Tests/Procedures Have Been Initiated: No orders of the defined types were placed in this encounter. Instructions Given to Patient: Instructions located in the after visit summary. Patient given verbal and written preop instructions and voices comprehension and compliance. SIGNATURE: Chastity Mujica APRN.ASBESTOS MICROSCOPIST PATIENT NAME: Marcial Yeung DATE: September 01, 2022 TIME: 2:46 PM PAGER/CONTACT #: documented [facility] this [facility] Instructions* Patient Instructions* Chastity Mujica APRN.CNP - 09/01/2022 2:46 PM EST PATIENT PREOPERATIVE INSTRUCTIONS Dulce Hoover MD has scheduled you for your procedure at this surgery center: [facility]: [phone] -- [address] [facility] [address]. Please read below carefully for your personalized instructions. Dietary Restrictions: - No solid food after midnight. - You may have 12 ounces of clear liquids (water, clear juices such as apple juice or gatorade, carbonated beverages, clear tea, black coffee, jello) until 2 hours before scheduled arrival at facility. No red/purple coloring and no creamer/sugar Medications: Unless instructed differently below, stay on all of your medications until your surgery. Approved medications to take the morning of surgery with a sip of water: Albuterol, Dicyclomine, Pantoprazole, Levocertirizine, If you start any new medications after today's visit, please contact the surgeon's office. Blood Thinning Medications: - Stop NSAIDS (Ibuprofen, Advil, Aleve, Motrin, Celebrex, Mobic, etc.) 7 days before surgery, as directed by your surgeon. - Stop Aspirin 7 days before surgery, as directed by your surgeon. - Stop Vitamin E, ALL multi-vitamins, herbals and dietary supplements 7 days before surgery. - You may take Tylenol (Acetaminophen) or any of your pain medications that do not contain aspirin or NSAIDS as needed. Important Reminders: - If you use CPAP/BIPAP, bring the machine with you to the surgery center. - If you are prescribed inhalers for breathing, continue using them. - Candy, mints, gum and tobacco products are NOT permitted the morning of surgery. - Hearing aids, dentures and glasses may be worn the morning of surgery. - NO jewelry, body piercings, makeup, hairpins or contacts are to be worn the day of surgery. If you develop symptoms such as a fever, cold, or flu, or have other changes to your health within TWO DAYS of scheduled surgery or the morning of surgery, please contact the surgery center above. Personal Belongings: -Please have photo ID and insurance cards. -If you do not have a copy of advance directives on file with us, please bring a copy with you on the day of surgery. - Leave ALL valuables and money at home or with family members. For Outpatient Procedures: - YOU MUST HAVE A RESPONSIBLE WOOD BORER TAKE YOU HOME. A PROFESSOR OF FOOD BIOCHEMISTRY OR STRADDLE TRUCK DRIVER CANNOT BE MADE A RESPONSIBLE WOOD BORER. - We recommend that a responsible person stays with you overnight to take care of you. - You cannot stay in a hotel alone after outpatient surgery. You will not be permitted to have yoursurgery, if you do not have someone to take care of you. Arrival Time for Surgery: - The Surgery Center or hospital where you are having surgery will call the afternoon before surgery (or Tuesday for Tuesday surgery) with a scheduled arrival time. - If you have not heard by 4 pm, please contact the surgery center above. Please be aware that emergency situations arise, which may delay or change your surgical time. If this happens, we will notify you as soon as possible and regret any inconvenience. If you already have an Advance Directive, please fax a copy to [phone] or email to for it to be added to your chart. If you do not have an Advance Directive, you can find the appropriate form and more information at [email or web address]. We recommend that youcomplete the Advance Directive form found on the website and bring it with you the day of your surgery. It can be witnessed and scanned into your chart that day. Chastity Mujica APRN.CNP documented in this encounterC[facility] Instructions* Patient Instructions* Sharron Hollis APRN.CNP - 07/13/2022 2:01 PM EDT AFTER VISIT CARE BOTOX INJECTION While these procedures can be extremely helpful as part of your headache treatment plan, they can irritate the muscles and tissues in your head, neck and shoulders. Proper follow-up care is important to avoid muscle spasms and temporary pain increase within the following 3-5 days after your clinic visit. Here are some tips to help decrease side-effects that may occur and maximize the effectiveness of your pain relief -HYDRATION Hydration is important to help nourish your muscles and tissues. Drink 60-80 oz of non caffeinated fluid at least for 3 days after your visit. -REST Rest will help avoid further irritation of muscle and tissues. Remember that you need to give your body time to adjust. NO strenuous activity for at least the first 24 hours after your visit. Gentle stretching, yoga, meditation or even swimming is OK and encouraged. -ICE/HEAT Since these procedures irritate muscles, there can be some swelling. Alternating ice and heat every3-5 times per day may help decrease this, while also optimizing pain relief Use cool gel packs for ice for 10 min. Use a warm moist towel covered with a dry towel on neck and shoulders. Alternate stretching each side of the neck. -STRETCHING Slow, gentle stretching of the neck and shoulders once every hour is helpful to avoid muscle spasms. -TREAT MUSCLE SPASMS If you are already prescribed a muscle relaxer such as baclofen, tizanidine or flexeril, use as directed. If you do not have one, talk to your provider to find out if this would be safe for you to use. Do not rub or massage the area for 48-72 hours. -OTHER No hair dyes or permanents for 24 hours. If you are paying out of pocket for Botox go online to Botox Savings Program and see if you qualifyfor reimbursement. Return in 3 months for your next Botox Injection documented in this encounterC[facility] History of Present illness Narrative* Sharron Hollis APRN.CNP - 07/12/2022 11:43 AM EDT Follow-Up Onabotulinum Toxin A (BotoxTM) for Migraine Indication: Chronic Intractable Migraine Treatment #: 13 Referral Expiration: 01/14/2023 Prior to the initiation of the FIRST treatment with Onabotulinum Toxin A, the patient reported the following average headache frequency over the past 3 MONTHS: Number of moderate-severe migraine days/month: 25 Number of mild migraine days/month: 0 Number of headache free days/month: 5 (120 headache-free hours) After treatment with Onabotulinum Toxin A: Number of moderate-severe migraine days/month: 0 Number of mild migraine days/month: 8 Number of headache free days/month: 22 (528 headache-free hours) Patient reduction in overall migraine days: Yes Patient reduction in moderate-severe migraine days: Yes Patient reduction of headache hours by 100 hours or more: Yes (reduction of 408 hours) Individual has obtained clinical benefit deemed significant by individual or prescriber (Y/N): Yes Patient's quality of life and ability to perform ADLs has improved (Y/N): Yes Side effects: none Wearing off: No HEADACHE SCORES: Headache Questions 01/13/2022 04/13/2022 07/11/2022 ER visits since last office visit: 0 0 0 Hospital stays since last office visit 0 0 0 Limited ADLs in the last month: 1 0 0 Days missed from work or school in the last month: 0 0 0 Days headache pain free in the last month: 23 15 22 Days per month with ALL of the following symptoms - decreased productivity, light sensitivity and nausea: 1 0 0 Initial improvement of headache after botox injection at last visit: Very much improved Much improved Much improved PRN medication usage in the last month: 5 8 7 Patient impression of improvement since last visit: No change No change No change HIT-6 01/13/2022 04/13/2022 07/11/2022 HIT-6 - - - HIT-6 48 (Little or no impact) 42 (Little or no impact) 48 (Little or no impact) KEYONNA - 2/7 SCORES 01/13/2022 04/13/2022 07/11/2022 KEYONNA-2 Score 1 1 1 KEYONNA-7 Score - - - Migraine Specific QOL - Higher scores indicate better HRQL 08/11/2020 04/13/2022 07/11/2022 Role Function-Restrictive Transformed Score (range: 0-100) 91.42 91.43 88.57 Role Function-Preventive Transformed Score (range: 0-100) 100 100 100 Emotional Function Transformed Score (range: 0-100) 93.33 100 100 PHQ-9 01/13/2022 04/13/2022 07/11/2022 Score 2 2 4 BP 128/77 Pulse 70 Ht 157.5 cm (5' 2") Wt 64.9 kg (143 lb) LMP 05/06/2014 SpO2 99% BMI 26.16 kg/m Patient name: Marcial Yeung : 1965 ALLERGIES Allergen Reactions Citalopram Other: See Comments Did not tolerate, ? Mental status changes Dust Intolerance Liquid Bandage [Enb* Rash blisters and rash Mold Other: See Comments Intolerance; itchy throat, runny nose Octyl 2-Cyanoacryla* Hives Pneumococcal Vaccine Other: See Comments Pneumovax 23 [Pneum* Swelling tongue swollen arm Pollen Intolerance Propranolol Mental Status Change Smoke Intolerance Tetracycline GI Upset Abdominal pain/cramping UNIVERSAL PROTOCOL / SAFETY CHECKLIST Procedure: Onabotulinum toxin A for migraine Informed Consent Consent Obtained: Written [place] Protocol A moment to CARE was completed SIGN IN Personnel directly involved with the procedure wore the appropriate PPE Special Equipment: N/A Patient/Surrogate Stated/Verified: Patient name, Date of , Relevant allergies and Intended procedure TIME OUT Intended patient and procedure match the source document(s) Consent documented and matches the intended procedure No relevant labs, photos, and/or imaging studies were applicable for review. No correct side/site applicable for marking and visibility. No medications required for procedure. No fire risk assessment and interventions applicable. No implant(s) inserted. SIGN OUT No specimen collected. No instruments, equipment or retained foreign bodies applicable. Post-procedure follow-up management communicated and Plan of Care Visit completed when applicable Written Consent Obtained: Written LOT #: [id number] Expiration Date: Month: : 2023 Second vial: LOT #: [id number] Expiration Date: Month: Year: 2023 Injection Sites Left (Units) Left (Sites) Right (Units) Right (Sites) TOTAL (Units) Pesticide Chemist 5 1 5 1 10 Procerus Units: 5 Sites: 1 5 Frontalis 10 2 10 2 20 Temporalis optional follow the pain 20 5 4 1 20 5 4 1 50 Occipitalis optional follow the pain 15 10 3 2 15 10 3 2 50 Cervical PSP 10 2 10 2 20 Trapezius optional follow the pain 15 7.5 3 2 15 7.5 3 2 45 Total Units used: 200 Total Units wasted: 0 Patient tolerated procedure well. Prior Therapies Duration of Use Dose Side effect Analgesic Hydrocodone/Acetaminophen (Vicodin, [place]) Hydromorphone (Dilaudid) Meloxicam (Mobic) Meperidine (Demerol) Oxycodone Oxycodone/Acetaminophen (Percocet) Tramadol (Ultram) Anti-Anxiety Lorazepam (Ativan) Anti-Convulsant Gabapentin (Neurontin) Topiramate (Topamax, Trokendi XL, Qudexy) Anti-Depressant and Antipsychotic Amitriptyline (Elavil) Bupropion (Wellbutrin) Citalopram (Celexa) Fluoxetine (Prozac) Venlafaxine (Effexor) Antiemetics Metoclopramide Ondansetron Prochlorperazine Promethazine Anti-Migraine Rizatriptan (Maxalt) Sumatriptan (Imitrex, Sumavel) Blood Pressure Metoprolol (Lopressor,Toprol XL) Propranolol (Inderal) GEPANTS Rimegepant (Nurtec) Botulinum Toxin Onabotulinum Toxin A (Botox) Muscle Relaxer Cyclobenzaprine (Flexeril) Sleep Aids Trazodone (Desyrel) Zolpidem (Ambien) Other Medications Dexamethasone (Decadron) Prednisone Over the Counter Medications Acetaminophen (Tylenol) Acetaminophen/Aspirin/Caffeine (Excedrin, Goody s) Aspirin Ibuprofen (Advil, Motrin) Naproxen sodium (Aleve) Sharron Hollis APRN.ROLAND documented in this encounterC[facility]09-12-2022 Miscellaneous Notes* Telephone Encounter - Razia Hughes Ma - 06/14/2022 9:00 AM EDT KEYANNA 04/13/22 NOV none Patient electronically sent a request for the following prescription(s) Requested Prescriptions Pending Prescriptions Disp Refills traZODone (DESYREL) 50 mg tablet 135 tablet 0 Sig: take 1 and 1/2 tablet by mouth at bedtime Patient aware RX will be sent to pharmacy. No need to notify patient. Please review. Razia Hughes Ma documented in this encounterC[facility]09-11-2022 Miscellaneous Notes* Telephone Encounter - Nikia Mitchell RN - 06/13/2022 7:14 AM EDT Last office visit: 06/12/21 IBS, GERD, N&V Colon 06/17/21 Future office visit: not scheduled Pharmacy calls in requesting the following refill(s): Requested Prescriptions Pending Prescriptions Disp Refills pantoprazole DR (PROTONIX) 40 mg tablet 30 tablet 5 Sig: Take 1 tablet by mouth once daily. dicyclomine (BENTYL) 10 mg capsule 90 capsule 2 Sig: Take 1 capsule by mouth three times daily. Nikia Mitchell RN documented in this encounterC[facility]09-02-2022 Miscellaneous Notes* Telephone Encounter - Lucio Glasgow APRN.CNP - 06/04/2022 3:18 PM EDT The following approved medication requests have been transmitted electronically. Requested Prescriptions Signed Prescriptions Disp Refills tiZANidine (ZANAFLEX) 4 mg tablet 30 tablet 0 Sig: Take 1 tablet by mouth three times daily. as needed Authorizing Provider: LUCIO GLASGOW APRN.CNP * Telephone Encounter - Razia Hughes Ma - 06/04/2022 8:28 AM EDT KEYANNA 04/13/22 NOV none Patient electronically sent a request for the following prescription(s) Requested Prescriptions Pending Prescriptions Disp Refills tiZANidine (ZANAFLEX) 4 mg tablet 30 tablet 0 Sig: Take 1 tablet by mouth three times daily. as needed Patient aware RX will be sent to pharmacy. No need to notify patient. Please review. Razia Hughes Ma documented in this encounterC[facility]08-01-2022 Miscellaneous Notes* Telephone Encounter - Andrew Gonzalez MD - 05/03/2022 1:22 PM EDT Patient's request for medication is as follows Signed Prescriptions Disp Refills magnesium oxide (MAG-OX) 400 mg (241.3 mg magnesium) tablet 90 tablet 3 Sig: Take 1 tablet by mouth once daily. Order entered and notify patient. Andrew Gonzalez MD documented in this [facility]07-29-2022 Miscellaneous Notes* Telephone Encounter - Rizwana Del Castillo MA - 04/30/2022 10:45 AM EDT The following approved medication requests have been transmitted electronically. Pending Prescriptions Disp Refills ONDANSETRON HCL 4 MG TABLET 30 tablet 1 Sig: take 1 tablet by mouth every 8 hours if needed for nausea and vomiting SAIGE: Yes Rizwana Del Castillo MA The last OV with Jose Angel Coker DO was 2021 Patients future office visit is Visit date not found documented in this [facility]07-27-2022 Miscellaneous Notes* Telephone Encounter - Rizwana Del Castillo MA - 04/28/2022 10:15 AM EDT The following approved medication requests have been transmitted electronically. Pending Prescriptions Disp Refills DICYCLOMINE 10 MG CAPSULE 60 capsule 2 Sig: take 1 capsule by mouth three times a day if needed SAIGE: Yes Rizwana Del Castillo MA The last OV with Jose Angel Coker DO was 2021 Patients future office visit is Visit date not found documented in this [facility]07-15-2022 Instructions* Patient Instructions* Sharron Hollis APRN.ROLAND - 04/16/2022 11:09 AM EDT AFTER VISIT CARE BOTOX INJECTION While these procedures can be extremely helpful as part of your headache treatment plan, they can irritate the muscles and tissues in your head, neck and shoulders. Proper follow-up care is important to avoid muscle spasms and temporary pain increase within the following 3-5 days after your clinic visit. Here are some tips to help decrease side-effects that may occur and maximize the effectiveness of your pain relief -HYDRATION Hydration is important to help nourish your muscles and tissues. Drink 60-80 oz of non caffeinated fluid at least for 3 days after your visit. -REST Rest will help avoid further irritation of muscle and tissues. Remember that you need to give your body time to adjust. NO strenuous activity for at least the first 24 hours after your visit. Gentle stretching, yoga, meditation or even swimming is OK and encouraged. -ICE/HEAT Since these procedures irritate muscles, there can be some swelling. Alternating ice and heat every3-5 times per day may help decrease this, while also optimizing pain relief 1. Use cool gel packs for ice for 10 min. 2. Use a warm moist towel covered with a dry towel on neck and shoulders. 3. Alternate stretching each side of the neck. -STRETCHING Slow, gentle stretching of the neck and shoulders once every hour is helpful to avoid muscle spasms. -TREAT MUSCLE SPASMS If you are already prescribed a muscle relaxer such as baclofen, tizanidine or flexeril, use as directed. If you do not have one, talk to your provider to find out if this would be safe for you to use. Do not rub or massage the area for 48-72 hours. -OTHER No hair dyes or permanents for 24 hours. If you are paying out of pocket for Botox go online to Botox Savings Program and see if you qualifyfor reimbursement. Return in 3 months for your next Botox Injection documented in this encounterC[facility]07-15-2022 History of Present illness Narrative* Sharron Hollis APRN.ROLAND - 04/16/2022 11:00 AM EDT Follow-Up Onabotulinum Toxin A (BotoxTM) for Migraine Indication: Chronic Intractable Migraine Treatment #: 12 Referral Expiration: 01/14/2023 Prior to the initiation of the FIRST treatment with Onabotulinum Toxin A, the patient reported the following average headache frequency over the past 3 MONTHS: Number of moderate-severe migraine days/month: 25 Number of mild migraine days/month: 0 Number of headache free days/month: 5 (120 headache-free hours) After treatment with Onabotulinum Toxin A: Number of moderate-severe migraine days/month: 5 Number of mild migraine days/month: 0 Number of headache free days/month: 25 (600 headache-free hours) Patient reduction in overall migraine days: Yes Patient reduction in moderate-severe migraine days: Yes Patient reduction of headache hours by 100 hours or more: Yes (reduction of 480 hours) Individual has obtained clinical benefit deemed significant by individual or prescriber (Y/N): Yes Patient's quality of life and ability to perform ADLs has improved (Y/N): Yes Side effects: none Wearing off: No We will get a precert for an Oral Calcitonin Gene-Related Peptide Receptor Antagonist (GEPANT) Ubrogepant for the rescue treatment of migraine. This patient meets AHS criteria for treatment of migraine with an oral small molecule CGRP antagonist GEPANT. The FDA has approved GEPANTS for the treatment of migraine. Specifically, the patient has 5 migraines per month (with Botox for chronic migraine prevention), lasting 4 or more hours/day associated with photophobia, phonophobia, nausea, for threeor more months. Medication overuse headache has been ruled out. Patient will not use with another GEPANT. The patient has tried and failed the following : Anti-Migraine Rizatriptan (Maxalt) Sumatriptan (Imitrex, Sumavel) Analgesic Hydrocodone/Acetaminophen (Vicodin, [place]) Hydromorphone (Dilaudid) Meloxicam (Mobic) Meperidine (Demerol) HEADACHE SCORES: Headache Questions 10/12/2021 01/13/2022 04/13/2022 ER visits since last office visit: 0 0 0 Hospital stays since last office visit 0 0 0 Limited ADLs in the last month: 1 1 0 Days missed from work or school in the last month: 0 0 0 Days headache pain free in the last month: 23 23 15 Days per month with ALL of the following symptoms - decreased productivity, light sensitivity and nausea: 1 1 0 Initial improvement of headache after botox injection at last visit: Minimally improved Very much improved Much improved PRN medication usage in the last month: 7 5 8 Patient impression of improvement since last visit: Minimally improved No change No change HIT-6 10/12/2021 01/13/2022 04/13/2022 HIT-6 - - - HIT-6 46 (Little or no impact) 48 (Little or no impact) 42 (Little or no impact) KEYONNA - 2/7 SCORES 10/12/2021 01/13/2022 04/13/2022 KEYONNA-2 Score 0 1 1 KEYONNA-7 Score - - - Migraine Specific QOL - Higher scores indicate better HRQL 05/11/2020 08/11/2020 04/13/2022 Role Function-Restrictive Transformed Score (range: 0-100) 97.14 91.42 91.43 Role Function-Preventive Transformed Score (range: 0-100) 100 100 100 Emotional Function Transformed Score (range: 0-100) 100 93.33 100 PHQ-9 10/12/2021 01/13/2022 04/13/2022 Score 1 2 2 BP 124/74 Pulse 79 Ht 157.5 cm (5' 2") Wt 63.5 kg (140 lb 1.6 oz) LMP 05/06/2014 SpO2 96% BMI 25.62 kg/m Patient name: Marcial Yeung : 1965 ALLERGIES Allergen Reactions Citalopram Other: See Comments Did not tolerate, ? Mental status changes Dust Intolerance Liquid Bandage [Enb* Rash blisters and rash Mold Other: See Comments Intolerance; itchy throat, runny nose Octyl 2-Cyanoacryla* Hives Pneumococcal Vaccine Other: See Comments Pneumovax 23 [Pneum* Swelling tongue swollen arm Pollen Intolerance Propranolol Mental Status Change Smoke Intolerance Tetracycline GI Upset Abdominal pain/cramping UNIVERSAL PROTOCOL / SAFETY CHECKLIST Procedure: Onabotulinum toxin A for migraine Informed Consent Consent Obtained: Written [place] Protocol A moment to CARE was completed SIGN IN Personnel directly involved with the procedure wore the appropriate PPE Special Equipment: N/A Patient/Surrogate Stated/Verified: Patient name, Date of , Relevant allergies and Intended procedure TIME OUT Intended patient and procedure match the source document(s) Consent documented and matches the intended procedure No relevant labs, photos, and/or imaging studies were applicable for review. No correct side/site applicable for marking and visibility. No medications required for procedure. No fire risk assessment and interventions applicable. No implant(s) inserted. SIGN OUT No specimen collected. No instruments, equipment or retained foreign bodies applicable. Post-procedure follow-up management communicated and Plan of Care Visit completed when applicable Written Consent Obtained: Written LOT #: [id number] Expiration Date: Month: 1 Year: 2023 Injection Sites Left (Units) Left (Sites) Right (Units) Right (Sites) TOTAL (Units) Pesticide Chemist 5 1 5 1 10 Procerus Units: 5 Sites: 1 5 Frontalis 10 2 10 2 20 Temporalis optional follow the pain 20 5 4 1 20 5 4 1 50 Occipitalis optional follow the pain 15 10 3 2 15 10 3 2 50 Cervical PSP 10 2 10 2 20 Trapezius optional follow the pain 15 7.5 3 2 15 7.5 3 2 45 Total Units used: 200 Total Units wasted: 0 Patient tolerated procedure well. Prior Therapies Duration of Use Dose Side effect Analgesic Hydrocodone/Acetaminophen (Vicodin, [place]) Hydromorphone (Dilaudid) Meloxicam (Mobic) Meperidine (Demerol) Oxycodone Oxycodone/Acetaminophen (Percocet) Tramadol (Ultram) Anti-Anxiety Lorazepam (Ativan) Anti-Convulsant Gabapentin (Neurontin) Topiramate (Topamax, Trokendi XL, Qudexy) Anti-Depressant and Antipsychotic Amitriptyline (Elavil) Bupropion (Wellbutrin) Citalopram (Celexa) Fluoxetine (Prozac) Venlafaxine (Effexor) Antiemetics Metoclopramide Ondansetron Prochlorperazine Promethazine Anti-Migraine Rizatriptan (Maxalt) Sumatriptan (Imitrex, Sumavel) Blood Pressure Metoprolol (Lopressor,Toprol XL) Propranolol (Inderal) GEPANTS Ubrogepant (Ubrelvy) Rimegepant (Nurtec) Botulinum Toxin Onabotulinum Toxin A (Botox) Muscle Relaxer Cyclobenzaprine (Flexeril) Sleep Aids Trazodone (Desyrel) Zolpidem (Ambien) Other Medications Dexamethasone (Decadron) Prednisone Over the Counter Medications Acetaminophen (Tylenol) Acetaminophen/Aspirin/Caffeine (Excedrin, Goody s) Aspirin Ibuprofen (Advil, Motrin) Naproxen sodium (Aleve) Sharron Hollis APRN.ROLAND documented in this encounterC[facility]07-12-2022 History of Present illness Narrative* Andrew Gonzalez MD - 04/13/2022 11:19 AM EDT Marcial Yeung is a 56 year old female who presents with the following concerns and complaints: Patient has a few concerns she has underlying anxiety she works 2 days a week and sometimes requires the use of Ativan she was not able to tolerate citalopram in the past she complains of leg cramps and wanted her magnesium level checked we can check that and vitamin D she requested to have the muscle relaxant if neededWas a virtual visit ACTIVE PROBLEM LIST Asthma Cervical High 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 Positive Chronic Insomnia Anxiety Primary Insomnia Stress Incontinence in Female Encounter for Screening Colonoscopy 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) Gastro-Esophageal Reflux Disease Without Esophagitis Chronic Sinusitis, Unspecified Benign Neoplasm of Unspecified Ovary Asymptomatic Menopausal State Anxiety Disorder, Unspecified Acquired Absence of Both Cervix and Uterus Paroxysmal Supraventricular Tachycardia (Hcc) Palpitations Status Post Ablation of Accessory Bypass Tract Dyspareunia Chronic Mixed Headache Syndrome Chronic Migraine Without Aura, With Intractable Migraine, So Stated, With Status Migrainosus Intractable Chronic Migraine Without Aura and Without Status Migrainosus Chronic Daily Headache Musculoskeletal Pain Cervicalgia Chronic Tension-Type Headache, Intractable Reflux Esophagitis Intractable Chronic Migraine Without Aura and With Status Migrainosus Internal Hemorrhoids Migraine Without Aura and Without Status Migrainosus, Not Intractable Bilateral Occipital Neuralgia EXAM: LMP 05/06/2014 Patient in no acute distress Assessment / Plan: R25.2 Leg cramps (primary encounter diagnosis) F41.9 Anxiety disorder, unspecified type Appointment on 04/13/22 MAGNESIUM BLD VITAMIN D 25 HYDROXY LORazepam (ATIVAN) 0.5 mg tiZANidine (ZANAFLEX) 4 mg tablet f/u 6 m Andrew Gonzalez MD documented in this encounterC[facility]06-01-2022 Miscellaneous Notes* Telephone Encounter - Andrew Gonzalez MD - 03/03/2022 1:49 PM EDT Patient's request for medication is as follows Signed Prescriptions Disp Refills LORazepam (ATIVAN) 0.5 mg 30 tablet 0 Sig: Take 1 tablet by mouth at bedtime as needed for up to 30 days. IMER Class: C-IV SAIGE: No Authorizing Provider: ANDREW GONZALEZ Order entered and notify patient.Patient is due to be seen.Please schedule appointment for the patient in the next month. Andrew Gonzalez MD * Telephone Encounter - Razia Hughes Ma - 03/02/2022 8:22 AM EDT KEYANNA 09/09/21 NOV none Patient electronically sent a request for the following prescription(s) Pending Prescriptions Disp Refills LORAZEPAM 0.5 MG TABLET 30 tablet 0 Sig: Take 1 tablet by mouth at bedtime as needed for up to 30 days. IMER Class: C-IV SAIGE: No Patient aware RX will be sent to pharmacy. No need to notify patient. Please review. Razia Hughes Ma documented [facility] this encounterC[facility] Miscellaneous Notes* Telephone Encounter - Rizwana Del Castillo MA - 03/02/2022 12:57 PM EDT The following approved medication requests have been transmitted electronically. Pending Prescriptions Disp Refills PANTOPRAZOLE 40 MG TABLET,DELAYED RELEASE 30 tablet 5 Sig: Take 1 tablet by mouth once daily. SAIGE: No ONDANSETRON HCL 4 MG TABLET 30 tablet 1 SAIGE: No DICYCLOMINE 10 MG CAPSULE 60 capsule 2 SAIGE: No Rizwana Del Castillo MA The last OV with Jose Angel Coker DO was 2021 Patients future office visit is Visit date not found documented in this encounterC[facility] Miscellaneous Notes* Telephone Encounter - Luke Riggins - 01/15/2022 10:40 AM EDT Left brief message on cell voicemail stating to call the office to schedule New Patient with Any Provider in Any Location. Luke Riggins documented in this encounterC[facility]04[facility]14-2022 Miscellaneous Notes* Telephone Encounter - Francisca Otero APRN.CNP - 01/14/2022 12:27 PM EDT OK to schedule consult only for new pain from [facility], no meds as she is on daily benzodiazepines Records from [facility] placed into scan Francisca Otero APRN.ASBESTOS MICROSCOPIST documented in this encounterC[facility]04[facility]04-[facility]22 Miscellaneous Notes* Telephone Encounter - Kassidy Pruett Adm - 01/04/2022 11:59 AM EDT Nurtec was denied because she needs to try more medications. Patient asking that we try another triptan to start She has already tried rizatriptan and that didn't work. documented in this encounterC[facility]02-15-2022 Instructions* Instruction Description Start Date CompletedPatient advised to follow-up with Primary Care Physician for BMI management. [facility] Work Phone: [phone]) [phone] History of Past illness Narrative* Problem Noted Date Diagnosed Date Resolved Date Primary insomnia 06/11/2015 11/29/2023 Abnormal uterine bleeding 04/17/2014 Rapid palpitations 02/18/2014 8 Qtpxe-Bavqiuafn-Jxvft (WPW) syndrome 02/18/2014 03/23/2018 Chest discomfort 02/18/2014 11/13/2015 ADD (attention deficit disorder) 07/29/2009 02/02/2021 Last Assessment & Plan: Assessment: no rx Papanicolaou smear of cervix with atypical squamous cells of undetermined significance (ASC-US) 01/29/2009 11/17/2011 Abnormal involuntary movements(781.0) 12/06/2005 11/13/2015 Adjustment disorder with depressed mood 12/06/2005 10/19/2019 Acute gastritis without mention of hemorrhage 12/07/1911/13/2015 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 11/22/2018 Overview: flecainide; indication: symptomatic PSVT with WPW syndrome documented as of this encounter (statuses as of 11/30/2023) [facility] of Past illness Narrative* Problem Noted Date Diagnosed Date Resolved Date Primary insomnia 06/11/2015 11/29/2023 Abnormal uterine bleeding 04/17/2014 Rapid palpitations 02/18/2014 8 Epsfg-Qkjyxeccm-Qvqcx (WPW) syndrome 02/18/2014 03/23/2018 Chest discomfort 02/18/2014 11/13/2015 ADD (attention deficit disorder) 07/29/2009 02/02/2021 Last Assessment & Plan: Assessment: no rx Papanicolaou smear of cervix with atypical squamous cells of undetermined significance (ASC-US) 01/29/2009 11/17/2011 Abnormal involuntary movements(781.0) 12/06/2005 11/13/2015 Adjustment disorder with depressed mood 12/06/2005 10/19/2019 Acute gastritis without mention of hemorrhage 12/07/1911/13/2015 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 11/22/2018 Overview: flecainide; indication: symptomatic PSVT with WPW syndrome documented as of this encounter (statuses as of 12/07/2023) [facility] of [facility] illness Narrative* Problem Noted Date Diagnosed Date Resolved Date Primary insomnia 06/11/2015 11/29/2023 Abnormal uterine bleeding 04/17/2014 Rapid palpitations 02/18/2014 8 Dygbz-Ggaestwyo-Djdkk (WPW) syndrome 02/18/2014 03/23/2018 Chest discomfort 02/18/2014 11/13/2015 ADD (attention deficit disorder) 07/29/2009 02/02/2021 Last Assessment & Plan: Assessment: no rx Papanicolaou smear of cervix with atypical squamous cells of undetermined significance (ASC-US) 01/29/2009 11/17/2011 Abnormal involuntary movements(781.0) 12/06/2005 11/13/2015 Adjustment disorder with depressed mood 12/06/2005 10/19/2019 Acute gastritis without mention of hemorrhage 12/07/1911/13/2015 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 11/22/2018 Overview: flecainide; indication: symptomatic PSVT with WPW syndrome documented as of this encounter (statuses as of 12/09/2023) [facility] of [facility] Narrative* Problem Noted Date Diagnosed Date Resolved Date Primary insomnia 06/11/2015 11/29/2023 Abnormal uterine bleeding 04/17/2014 Rapid palpitations 02/18/2014 8 Xhgxt-Szddhwhuu-Iftac (WPW) syndrome 02/18/2014 03/23/2018 Chest discomfort 02/18/2014 11/13/2015 ADD (attention deficit disorder) 07/29/2009 02/02/2021 Last Assessment & Plan: Assessment: no rx Papanicolaou smear of cervix with atypical squamous cells of undetermined significance (ASC-US) 01/29/2009 11/17/2011 Abnormal involuntary movements(781.0) 12/06/2005 11/13/2015 Adjustment disorder with depressed mood 12/06/2005 10/19/2019 Acute gastritis without mention of hemorrhage 12/07/1911/13/2015 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 11/22/2018 Overview: flecainide; indication: symptomatic PSVT with WPW syndrome documented as of this encounter (statuses as of 12/10/2023) [facility] of [facility] Narrative* Problem Noted Date Diagnosed Date Resolved Date Primary insomnia 06/11/2015 11/29/2023 Abnormal uterine bleeding 04/17/2014 Rapid palpitations 02/18/2014 8 Saufk-Philosgoh-Nkqbe (WPW) syndrome 02/18/2014 03/23/2018 Chest discomfort 02/18/2014 11/13/2015 ADD (attention deficit disorder) 07/29/2009 02/02/2021 Last Assessment & Plan: Assessment: no rx Papanicolaou smear of cervix with atypical squamous cells of undetermined significance (ASC-US) 01/29/2009 11/17/2011 Abnormal involuntary movements(781.0) 12/06/2005 11/13/2015 Adjustment disorder with depressed mood 12/06/2005 10/19/2019 Acute gastritis without mention of hemorrhage 12/07/1911/13/2015 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 11/22/2018 Overview: flecainide; indication: symptomatic PSVT with WPW syndrome documented as of this encounter (statuses as of 12/12/2023) [facility] of [facility] Narrative* Problem Noted Date Diagnosed Date Resolved Date Primary insomnia 06/11/2015 11/29/2023 Abnormal uterine bleeding 04/17/2014 Rapid palpitations 02/18/2014 8 Fijtc-Eenaanccq-Pctoa (WPW) syndrome 02/18/2014 03/23/2018 Chest discomfort 02/18/2014 11/13/2015 ADD (attention deficit disorder) 07/29/2009 02/02/2021 Last Assessment & Plan: Assessment: no rx Papanicolaou smear of cervix with atypical squamous cells of undetermined significance (ASC-US) 01/29/2009 11/17/2011 Abnormal involuntary movements(781.0) 12/06/2005 11/13/2015 Adjustment disorder with depressed mood 12/06/2005 10/19/2019 Acute gastritis without mention of hemorrhage 12/07/1911/13/2015 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 11/22/2018 Overview: flecainide; indication: symptomatic PSVT with WPW syndrome documented as of this encounter (statuses as of 12/23/2023) [facility] of [facility] Narrative* Problem Noted Date Diagnosed Date Resolved Date Primary insomnia 06/11/2015 11/29/2023 Abnormal uterine bleeding 04/17/2014 Rapid palpitations 02/18/2014 8 Akgus-Gelgkhyye-Xjpyn (WPW) syndrome 02/18/2014 03/23/2018 Chest discomfort 02/18/2014 11/13/2015 ADD (attention deficit disorder) 07/29/2009 02/02/2021 Last Assessment & Plan: Assessment: no rx Papanicolaou smear of cervix with atypical squamous cells of undetermined significance (ASC-US) 01/29/2009 11/17/2011 Abnormal involuntary movements(781.0) 12/06/2005 11/13/2015 Adjustment disorder with depressed mood 12/06/2005 10/19/2019 Acute gastritis without mention of hemorrhage 12/07/1911/13/2015 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 11/22/2018 Overview: flecainide; indication: symptomatic PSVT with WPW syndrome documented as of this encounter (statuses as of 01/03/2024) [facility] of [facility] Narrative* Problem Noted Date Diagnosed Date Resolved Date Primary insomnia 06/11/2015 11/29/2023 Abnormal uterine bleeding 04/17/2014 Rapid palpitations 02/18/2014 8 Snbtp-Ltxlugmno-Ghzww (WPW) syndrome 02/18/2014 03/23/2018 Chest discomfort 02/18/2014 11/13/2015 ADD (attention deficit disorder) 07/29/2009 02/02/2021 Last Assessment & Plan: Assessment: no rx Papanicolaou smear of cervix with atypical squamous cells of undetermined significance (ASC-US) 01/29/2009 11/17/2011 Abnormal involuntary movements(781.0) 12/06/2005 11/13/2015 Adjustment disorder with depressed mood 12/06/2005 10/19/2019 Acute gastritis without mention of hemorrhage 12/07/1911/13/2015 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 11/22/2018 Overview: flecainide; indication: symptomatic PSVT with WPW syndrome documented as of this encounter (statuses as of 01/21/2024) [facility] of [facility] Narrative* Problem Noted Date Resolved Date Abnormal uterine bleeding 04/17/20142013 Rapid palpitations 02/18/2014 03/23/2018 Jhuix-Jeqyyznhr-Ijzdu (WPW) syndrome 02/18/2014 03/23/2018 Chest discomfort 02/18/2014 11/13/2015 ADD (attention deficit disorder) 07/29/2009 02/02/2021 Last Assessment & Plan: Assessment: no rx Papanicolaou smear of cervix with atypical squamous cells of undetermined significance (ASC-US) 01/29/2009 11/17/2011 Abnormal involuntary movements(781.0) 12/06/2005 11/13/2015 Adjustment disorder with depressed mood 12/07/1910/19/2019 Acute gastritis without mention of hemorrhage 11/13/2015 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 11/22/2018 Overview: flecainide; indication: symptomatic PSVT with WPW syndrome documented as of this encounter (statuses as of 01/05/2022) [facility] Narrative* Problem Noted Date Resolved Date Abnormal uterine bleeding 04/17/20142013 Rapid palpitations 02/18/2014 03/23/2018 Nfsix-Hjbakevdv-Gqdsm (WPW) syndrome 02/18/2014 03/23/2018 Chest discomfort 02/18/2014 11/13/2015 ADD (attention deficit disorder) 07/29/2009 02/02/2021 Last Assessment & Plan: Assessment: no rx Papanicolaou smear of cervix with atypical squamous cells of undetermined significance (ASC-US) 01/29/2009 11/17/2011 Abnormal involuntary movements(781.0) 12/06/2005 11/13/2015 Adjustment disorder with depressed mood 12/07/19 06 10/19/2019 Acute gastritis without mention of hemorrhage 11/13/2015 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 11/22/2018 Overview: flecainide; indication: symptomatic PSVT with WPW syndrome documented as of this encounter (statuses as of 01/14/2022) [facility] Narrative* Problem Noted Date Resolved Date Abnormal uterine bleeding 04/17/20142013 Rapid palpitations 02/18/2014 03/23/2018 Rjyns-Sneisrgpc-Hswsy (WPW) syndrome 02/18/2014 03/23/2018 Chest discomfort 02/18/2014 11/13/2015 ADD (attention deficit disorder) 07/29/2009 02/02/2021 Last Assessment & Plan: Assessment: no rx Papanicolaou smear of cervix with atypical squamous cells of undetermined significance (ASC-US) 01/29/2009 11/17/2011 Abnormal involuntary movements(781.0) 12/06/2005 11/13/2015 Adjustment disorder with depressed mood 12/07/19 06 10/19/2019 Acute gastritis without mention of hemorrhage 11/13/2015 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 11/22/2018 Overview: flecainide; indication: symptomatic PSVT with WPW syndrome documented as of this encounter (statuses as of 01/15/2022) [facility] Narrative* Problem Noted Date Resolved Date Abnormal uterine bleeding 04/17/20142013 Rapid palpitations 02/18/2014 03/23/2018 Xyjzj-Cayttprxe-Sqtfw (WPW) syndrome 02/18/2014 03/23/2018 Chest discomfort 02/18/2014 11/13/2015 ADD (attention deficit disorder) 07/29/2009 02/02/2021 Last Assessment & Plan: Assessment: no rx Papanicolaou smear of cervix with atypical squamous cells of undetermined significance (ASC-US) 01/29/2009 11/17/2011 Abnormal involuntary movements(781.0) 12/06/2005 11/13/2015 Adjustment disorder with depressed mood 12/07/1910/19/2019 Acute gastritis without mention of hemorrhage 11/13/2015 [employer] oil 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 11/22/2018 Overview: flecainide; indication: symptomatic PSVT with WPW syndrome documented as of this encounter (statuses as of 03/02/2022) [facility] Narrative* Problem Noted Date Resolved Date Abnormal uterine bleeding 04/17/20142013 Rapid palpitations 02/18/2014 03/23/2018 Btvks-Jrdwclkui-Obkbi (WPW) syndrome 02/18/2014 03/23/2018 Chest discomfort 02/18/2014 11/13/2015 ADD (attention deficit disorder) 07/29/2009 02/02/2021 Last Assessment & Plan: Assessment: no rx Papanicolaou smear of cervix with atypical squamous cells of undetermined significance (ASC-US) 01/29/2009 11/17/2011 Abnormal involuntary movements(781.0) 12/06/2005 11/13/2015 Adjustment disorder with depressed mood 12/07/1910/19/2019 Acute gastritis without mention of hemorrhage 11/13/2015 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 11/22/2018 Overview: flecainide; indication: symptomatic PSVT with WPW syndrome documented as of this encounter (statuses as of 03/03/2022) [facility] Narrative* Problem Noted Date Resolved Date Abnormal uterine bleeding 04/17/20142013 Rapid palpitations 02/18/2014 03/23/2018 Bprok-Xrpxvqmrr-Mwqbo (WPW) syndrome 02/18/2014 03/23/2018 Chest discomfort 02/18/2014 11/13/2015 ADD (attention deficit disorder) 07/29/2009 02/02/2021 Last Assessment & Plan: Assessment: no rx Papanicolaou smear of cervix with atypical squamous cells of undetermined significance (ASC-US) 01/29/2009 11/17/2011 Abnormal involuntary movements(781.0) 12/06/2005 11/13/2015 Adjustment disorder with depressed mood 12/07/1910/19/2019 Acute gastritis without mention of hemorrhage 11/13/2015 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 11/22/2018 Overview: flecainide; indication: symptomatic PSVT with WPW syndrome documented as of this encounter (statuses as of 03/03/2022) [facility]arrative* Problem Noted Date Resolved Date Abnormal uterine bleeding 04/17/20142013 Rapid palpitations 02/18/2014 03/23/2018 Bisvt-Zsohdvhpy-Fzyor (WPW) syndrome 02/18/2014 03/23/2018 Chest discomfort 02/18/2014 11/13/2015 ADD (attention deficit disorder) 07/29/2009 02/02/2021 Last Assessment & Plan: Assessment: no rx Papanicolaou smear of cervix with atypical squamous cells of undetermined significance (ASC-US) 01/29/2009 11/17/2011 Abnormal involuntary movements(781.0) 12/06/2005 11/13/2015 Adjustment disorder with depressed mood 12/07/19 06 10/19/2019 Acute gastritis without mention of hemorrhage 11/13/2015 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 11/22/2018 Overview: flecainide; indication: symptomatic PSVT with WPW syndrome documented as of this encounter (statuses as of 04/13/2022) [facility] Narrative* Problem Noted Date Resolved Date Abnormal uterine bleeding 04/17/20142013 Rapid palpitations 02/18/2014 03/23/2018 Syram-Vdxemdayp-Ycsgd (WPW) syndrome 02/18/2014 03/23/2018 Chest discomfort 02/18/2014 11/13/2015 ADD (attention deficit disorder) 07/29/2009 02/02/2021 Last Assessment & Plan: Assessment: no rx Papanicolaou smear of cervix with atypical squamous cells of undetermined significance (ASC-US) 01/29/2009 11/17/2011 Abnormal involuntary movements(781.0) 12/06/2005 11/13/2015 Adjustment disorder with depressed mood 12/07/1910/19/2019 Acute gastritis without mention of hemorrhage 11/13/2015 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 11/22/2018 Overview: flecainide; indication: symptomatic PSVT with WPW syndrome documented as of this encounter (statuses as of 04/14/2022) [facility]arrative* Problem Noted Date Resolved Date Abnormal uterine bleeding 04/17/20142013 Rapid palpitations 02/18/2014 03/23/2018 Hpeiv-Tujvefhae-Gbzui (WPW) syndrome 02/18/2014 03/23/2018 Chest discomfort 02/18/2014 11/13/2015 ADD (attention deficit disorder) 07/29/2009 02/02/2021 Last Assessment & Plan: Assessment: no rx Papanicolaou smear of cervix with atypical squamous cells of undetermined significance (ASC-US) 01/29/2009 11/17/2011 Abnormal involuntary movements(781.0) 12/06/2005 11/13/2015 Adjustment disorder with depressed mood 12/07/19 06 10/19/2019 Acute gastritis without mention of hemorrhage 11/13/2015 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 11/22/2018 Overview: flecainide; indication: symptomatic PSVT with WPW syndrome documented as of this encounter (statuses as of 04/16/2022) [facility]* Problem Noted Date Resolved Date Abnormal uterine bleeding 04/17/20142013 Rapid palpitations 02/18/2014 03/23/2018 Wvhvv-Ewinnpate-Lsefu (WPW) syndrome 02/18/2014 03/23/2018 Chest discomfort 02/18/2014 11/13/2015 ADD (attention deficit disorder) 07/29/2009 02/02/2021 Last Assessment & Plan: Assessment: no rx Papanicolaou smear of cervix with atypical squamous cells of undetermined significance (ASC-US) 01/29/2009 11/17/2011 Abnormal involuntary movements(781.0) 12/06/2005 11/13/2015 Adjustment disorder with depressed mood 12/07/19 06 10/19/2019 Acute gastritis without mention of hemorrhage 11/13/2015 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 11/22/2018 Overview: flecainide; indication: symptomatic PSVT with WPW syndrome documented as of this encounter (statuses as of 04/29/2022) [facility]arrative* Problem Noted Date Resolved Date Abnormal uterine bleeding 04/17/20142013 Rapid palpitations 02/18/2014 03/23/2018 Eiyet-Kpsmvwtyb-Lxwbo (WPW) syndrome 02/18/2014 03/23/2018 Chest discomfort 02/18/2014 11/13/2015 ADD (attention deficit disorder) 07/29/2009 02/02/2021 Last Assessment & Plan: Assessment: no rx Papanicolaou smear of cervix with atypical squamous cells of undetermined significance (ASC-US) 01/29/2009 11/17/2011 Abnormal involuntary movements(781.0) 12/06/2005 11/13/2015 Adjustment disorder with depressed mood 12/07/19 06 10/19/2019 Acute gastritis without mention of hemorrhage 11/13/2015 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 11/22/2018 Overview: flecainide; indication: symptomatic PSVT with WPW syndrome documented as of this encounter (statuses as of 04/30/2022) [facility]arrative* Problem Noted Date Resolved Date Abnormal uterine bleeding 04/17/20142013 Rapid palpitations 02/18/2014 03/23/2018 Yjqhf-Izgwhjydd-Wlbqb (WPW) syndrome 02/18/2014 03/23/2018 Chest discomfort 02/18/2014 11/13/2015 ADD (attention deficit disorder) 07/29/2009 02/02/2021 Last Assessment & Plan: Assessment: no rx Papanicolaou smear of cervix with atypical squamous cells of undetermined significance (ASC-US) 01/29/2009 11/17/2011 Abnormal involuntary movements(781.0) 12/06/2005 11/13/2015 Adjustment disorder with depressed mood 12/07/19 06 10/19/2019 Acute gastritis without mention of hemorrhage 11/13/2015 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 11/22/2018 Overview: flecainide; indication: symptomatic PSVT with WPW syndrome documented as of this encounter (statuses as of 05/03/2022) [facility]arrative* Problem Noted Date Resolved Date Abnormal uterine bleeding 04/17/20142013 Rapid palpitations 02/18/2014 03/23/2018 Mtxde-Tfgadjazu-Oxbat (WPW) syndrome 02/18/2014 03/23/2018 Chest discomfort 02/18/2014 11/13/2015 ADD (attention deficit disorder) 07/29/2009 02/02/2021 Last Assessment & Plan: Assessment: no rx Papanicolaou smear of cervix with atypical squamous cells of undetermined significance (ASC-US) 01/29/2009 11/17/2011 Abnormal involuntary movements(781.0) 12/06/2005 11/13/2015 Adjustment disorder with depressed mood 12/07/19 06 10/19/2019 Acute gastritis without mention of hemorrhage 11/13/2015 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 11/22/2018 Overview: flecainide; indication: symptomatic PSVT with WPW syndrome documented as of this encounter (statuses as of 06/04/2022) [facility]arrative* Problem Noted Date Resolved Date Abnormal uterine bleeding 04/17/20142013 Rapid palpitations 02/18/2014 03/23/2018 Gcrhp-Wiilxfdty-Jvgpb (WPW) syndrome 02/18/2014 03/23/2018 Chest discomfort 02/18/2014 11/13/2015 ADD (attention deficit disorder) 07/29/2009 02/02/2021 Last Assessment & Plan: Assessment: no rx Papanicolaou smear of cervix with atypical squamous cells of undetermined significance (ASC-US) 01/29/2009 11/17/2011 Abnormal involuntary movements(781.0) 12/06/2005 11/13/2015 Adjustment disorder with depressed mood 12/07/19 06 10/19/2019 Acute gastritis without mention of hemorrhage 11/13/2015 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 11/22/2018 Overview: flecainide; indication: symptomatic PSVT with WPW syndrome documented as of this encounter (statuses as of 06/10/2022) [facility]arrative* Problem Noted Date Resolved Date Abnormal uterine bleeding 04/17/20142013 Rapid palpitations 02/18/2014 03/23/2018 Grlhq-Bspwcwjdq-Qzflm (WPW) syndrome 02/18/2014 03/23/2018 Chest discomfort 02/18/2014 11/13/2015 ADD (attention deficit disorder) 07/29/2009 02/02/2021 Last Assessment & Plan: Assessment: no rx Papanicolaou smear of cervix with atypical squamous cells of undetermined significance (ASC-US) 01/29/2009 11/17/2011 Abnormal involuntary movements(781.0) 12/06/2005 11/13/2015 Adjustment disorder with depressed mood 12/07/19 06 10/19/2019 Acute gastritis without mention of hemorrhage 11/13/2015 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 11/22/2018 Overview: flecainide; indication: symptomatic PSVT with WPW syndrome documented as of this encounter (statuses as of 06/14/2022) [facility]arrative* Problem Noted Date Resolved Date Abnormal uterine bleeding 04/17/20142013 Rapid palpitations 02/18/2014 03/23/2018 Jlbiw-Unzovfzex-Ywoch (WPW) syndrome 02/18/2014 03/23/2018 Chest discomfort 02/18/2014 11/13/2015 ADD (attention deficit disorder) 07/29/2009 02/02/2021 Last Assessment & Plan: Assessment: no rx Papanicolaou smear of cervix with atypical squamous cells of undetermined significance (ASC-US) 01/29/2009 11/17/2011 Abnormal involuntary movements(781.0) 12/06/2005 11/13/2015 Adjustment disorder with depressed mood 12/07/1910/19/2019 Acute gastritis without mention of hemorrhage 11/13/2015 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 11/22/2018 Overview: flecainide; indication: symptomatic PSVT with WPW syndrome documented as of this encounter (statuses as of 06/14/2022) [facility]arrative* Problem Noted Date Resolved Date Abnormal uterine bleeding 04/17/20142013 Rapid palpitations 02/18/2014 03/23/2018 Cmfew-Tvfhcfamx-Ypdwy (WPW) syndrome 02/18/2014 03/23/2018 Chest discomfort 02/18/2014 11/13/2015 ADD (attention deficit disorder) 07/29/2009 02/02/2021 Last Assessment & Plan: Assessment: no rx Papanicolaou smear of cervix with atypical squamous cells of undetermined significance (ASC-US) 01/29/2009 11/17/2011 Abnormal involuntary movements(781.0) 12/06/2005 11/13/2015 Adjustment disorder with depressed mood 12/07/1910/19/2019 Acute gastritis without mention of hemorrhage 11/13/2015 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 11/22/2018 Overview: flecainide; indication: symptomatic PSVT with WPW syndrome documented as of this encounter (statuses as of 07/13/2022) [facility] History of Past illness Narrative* Problem Noted Date Resolved Date Abnormal uterine bleeding 04/17/20142013 Rapid palpitations 02/18/2014 03/23/2018 Tmkeg-Ffecdkgok-Vdyst (WPW) syndrome 02/18/2014 03/23/2018 Chest discomfort 02/18/2014 11/13/2015 ADD (attention deficit disorder) 07/29/2009 02/02/2021 Last Assessment & Plan: Assessment: no rx Papanicolaou smear of cervix with atypical squamous cells of undetermined significance (ASC-US) 01/29/2009 11/17/2011 Abnormal involuntary movements(781.0) 12/06/2005 11/13/2015 Adjustment disorder with depressed mood 12/07/1910/19/2019 Acute gastritis without mention of hemorrhage 11/13/2015 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 11/22/2018 Overview: flecainide; indication: symptomatic PSVT with WPW syndrome documented as of this encounter (statuses as of 08/02/2022) [facility] History of Past illness Narrative* Problem Noted Date Resolved Date Abnormal uterine bleeding 04/17/20142013 Rapid palpitations 02/18/2014 03/23/2018 Btqol-Rdlbpoefb-Mlkoi (WPW) syndrome 02/18/2014 03/23/2018 Chest discomfort 02/18/2014 11/13/2015 ADD (attention deficit disorder) 07/29/2009 02/02/2021 Last Assessment & Plan: Assessment: no rx Papanicolaou smear of cervix with atypical squamous cells of undetermined significance (ASC-US) 01/29/2009 11/17/2011 Abnormal involuntary movements(781.0) 12/06/2005 11/13/2015 Adjustment disorder with depressed mood 12/07/1910/19/2019 Acute gastritis without mention of hemorrhage 11/13/2015 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 11/22/2018 Overview: flecainide; indication: symptomatic PSVT with WPW syndrome documented as of this encounter (statuses as of 09/01/2022) [facility] History of Past illness Narrative* Problem Noted Date Resolved Date Abnormal uterine bleeding 04/17/20142013 Rapid palpitations 02/18/2014 03/23/2018 Umcvy-Hnljiavjx-Hqael (WPW) syndrome 02/18/2014 03/23/2018 Chest discomfort 02/18/2014 11/13/2015 ADD (attention deficit disorder) 07/29/2009 02/02/2021 Last Assessment & Plan: Assessment: no rx Papanicolaou smear of cervix with atypical squamous cells of undetermined significance (ASC-US) 01/29/2009 11/17/2011 Abnormal involuntary movements(781.0) 12/06/2005 11/13/2015 Adjustment disorder with depressed mood 12/07/1910/19/2019 Acute gastritis without mention of hemorrhage 11/13/2015 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 11/22/2018 Overview: flecainide; indication: symptomatic PSVT with WPW syndrome documented as of this encounter (statuses as of 09/07/2022) [facility] History of Past illness Narrative* Problem Noted Date Resolved Date Abnormal uterine bleeding 04/17/20142013 Rapid palpitations 02/18/2014 03/23/2018 Roxia-Rtppibtgs-Henue (WPW) syndrome 02/18/2014 03/23/2018 Chest discomfort 02/18/2014 11/13/2015 ADD (attention deficit disorder) 07/29/2009 02/02/2021 Last Assessment & Plan: Assessment: no rx Papanicolaou smear of cervix with atypical squamous cells of undetermined significance (ASC-US) 01/29/2009 11/17/2011 Abnormal involuntary movements(781.0) 12/06/2005 11/13/2015 Adjustment disorder with depressed mood 12/07/1910/19/2019 Acute gastritis without mention of hemorrhage 11/13/2015 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 11/22/2018 Overview: flecainide; indication: symptomatic PSVT with WPW syndrome documented as of this encounter (statuses as of 09/24/2022) [facility] History of Past illness Narrative* Problem Noted Date Resolved Date Abnormal uterine bleeding 04/17/20142013 Rapid palpitations 02/18/2014 03/23/2018 Twyma-Phomqyhjr-Rrezx (WPW) syndrome 02/18/2014 03/23/2018 Chest discomfort 02/18/2014 11/13/2015 ADD (attention deficit disorder) 07/29/2009 02/02/2021 Last Assessment & Plan: Assessment: no rx Papanicolaou smear of cervix with atypical squamous cells of undetermined significance (ASC-US) 01/29/2009 11/17/2011 Abnormal involuntary movements(781.0) 12/06/2005 11/13/2015 Adjustment disorder with depressed mood 12/07/1910/19/2019 Acute gastritis without mention of hemorrhage 11/13/2015 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 11/22/2018 Overview: flecainide; indication: symptomatic PSVT with WPW syndrome documented as of this encounter (statuses as of 10/04/2022) [facility] History of Past illness Narrative* Problem Noted Date Resolved Date Abnormal uterine bleeding 04/17/20142013 Rapid palpitations 02/18/2014 03/23/2018 Zeuri-Uzpewxboc-Tllle (WPW) syndrome 02/18/2014 03/23/2018 Chest discomfort 02/18/2014 11/13/2015 ADD (attention deficit disorder) 07/29/2009 02/02/2021 Last Assessment & Plan: Assessment: no rx Papanicolaou smear of cervix with atypical squamous cells of undetermined significance (ASC-US) 01/29/2009 11/17/2011 Abnormal involuntary movements(781.0) 12/06/2005 11/13/2015 Adjustment disorder with depressed mood 12/07/1910/19/2019 Acute gastritis without mention of hemorrhage 11/13/2015 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 11/22/2018 Overview: flecainide; indication: symptomatic PSVT with WPW syndrome documented as of this encounter (statuses as of 10/06/2022) [facility] History of Past illness Narrative* Problem Noted Date Resolved Date Abnormal uterine bleeding 04/17/20142013 Rapid palpitations 02/18/2014 03/23/2018 Itrmj-Cvjhnmgdc-Byace (WPW) syndrome 02/18/2014 03/23/2018 Chest discomfort 02/18/2014 11/13/2015 ADD (attention deficit disorder) 07/29/2009 02/02/2021 Last Assessment & Plan: Assessment: no rx Papanicolaou smear of cervix with atypical squamous cells of undetermined significance (ASC-US) 01/29/2009 11/17/2011 Abnormal involuntary movements(781.0) 12/06/2005 11/13/2015 Adjustment disorder with depressed mood 12/07/1910/19/2019 Acute gastritis without mention of hemorrhage 11/13/2015 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 11/22/2018 Overview: flecainide; indication: symptomatic PSVT with WPW syndrome documented as of this encounter (statuses as of 10/08/2022) [facility] History of Past illness Narrative* Problem Noted Date Resolved Date Abnormal uterine bleeding 04/17/20142013 Rapid palpitations 02/18/2014 03/23/2018 Udvgh-Nyyaumljp-Jvbnp (WPW) syndrome 02/18/2014 03/23/2018 Chest discomfort 02/18/2014 11/13/2015 ADD (attention deficit disorder) 07/29/2009 02/02/2021 Last Assessment & Plan: Assessment: no rx Papanicolaou smear of cervix with atypical squamous cells of undetermined significance (ASC-US) 01/29/2009 11/17/2011 Abnormal involuntary movements(781.0) 12/06/2005 11/13/2015 Adjustment disorder with depressed mood 12/07/1910/19/2019 Acute gastritis without mention of hemorrhage 11/13/2015 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 11/22/2018 Overview: flecainide; indication: symptomatic PSVT with WPW syndrome documented as of this encounter (statuses as of 10/08/2022) [facility] History of Past illness Narrative* Problem Noted Date Resolved Date Abnormal uterine bleeding 04/17/20142013 Rapid palpitations 02/18/2014 03/23/2018 Verhg-Kfrcphkmw-Twteq (WPW) syndrome 02/18/2014 03/23/2018 Chest discomfort 02/18/2014 11/13/2015 ADD (attention deficit disorder) 07/29/2009 02/02/2021 Last Assessment & Plan: Assessment: no rx Papanicolaou smear of cervix with atypical squamous cells of undetermined significance (ASC-US) 01/29/2009 11/17/2011 Abnormal involuntary movements(781.0) 12/06/2005 11/13/2015 Adjustment disorder with depressed mood 12/07/1910/19/2019 Acute gastritis without mention of hemorrhage 11/13/2015 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 11/22/2018 Overview: flecainide; indication: symptomatic PSVT with WPW syndrome documented as of this encounter (statuses as of 10/14/2022) [facility] History of Past illness Narrative* Problem Noted Date Resolved Date Abnormal uterine bleeding 04/17/20142013 Rapid palpitations 02/18/2014 03/23/2018 Ghqts-Kwdwozmdb-Hoekb (WPW) syndrome 02/18/2014 03/23/2018 Chest discomfort 02/18/2014 11/13/2015 ADD (attention deficit disorder) 07/29/2009 02/02/2021 Last Assessment & Plan: Assessment: no rx Papanicolaou smear of cervix with atypical squamous cells of undetermined significance (ASC-US) 01/29/2009 11/17/2011 Abnormal involuntary movements(781.0) 12/06/2005 11/13/2015 Adjustment disorder with depressed mood 12/07/19 06 10/19/2019 Acute gastritis without mention of hemorrhage 11/13/2015 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 11/22/2018 Overview: flecainide; indication: symptomatic PSVT with WPW syndrome documented as of this encounter (statuses as of 11/04/2022) [facility] History of Past illness Narrative* Problem Noted Date Resolved Date Abnormal uterine bleeding 04/17/20142013 Rapid palpitations 02/18/2014 03/23/2018 Gsdwi-Zvbatydri-Roeky (WPW) syndrome 02/18/2014 03/23/2018 Chest discomfort 02/18/2014 11/13/2015 ADD (attention deficit disorder) 07/29/2009 02/02/2021 Last Assessment & Plan: Assessment: no rx Papanicolaou smear of cervix with atypical squamous cells of undetermined significance (ASC-US) 01/29/2009 11/17/2011 Abnormal involuntary movements(781.0) 12/06/2005 11/13/2015 Adjustment disorder with depressed mood 12/07/1910/19/2019 Acute gastritis without mention of hemorrhage 11/13/2015 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 11/22/2018 Overview: flecainide; indication: symptomatic PSVT with WPW syndrome documented as of this encounter (statuses as of 11/05/2022) [facility] History of Past illness Narrative* Problem Noted Date Resolved Date Abnormal uterine bleeding 04/17/20142013 Rapid palpitations 02/18/2014 03/23/2018 Mwijx-Bvlthuiao-Qtpiy (WPW) syndrome 02/18/2014 03/23/2018 Chest discomfort 02/18/2014 11/13/2015 ADD (attention deficit disorder) 07/29/2009 02/02/2021 Last Assessment & Plan: Assessment: no rx Papanicolaou smear of cervix with atypical squamous cells of undetermined significance (ASC-US) 01/29/2009 11/17/2011 Abnormal involuntary movements(781.0) 12/06/2005 11/13/2015 Adjustment disorder with depressed mood 12/07/1910/19/2019 Acute gastritis without mention of hemorrhage 11/13/2015 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 11/22/2018 Overview: flecainide; indication: symptomatic PSVT with WPW syndrome documented as of this encounter (statuses as of 11/16/2022) [facility] History of Past illness Narrative* Problem Noted Date Resolved Date Abnormal uterine bleeding 04/17/20142013 Rapid palpitations 02/18/2014 03/23/2018 Sswpe-Xvlwsiuwn-Odbus (WPW) syndrome 02/18/2014 03/23/2018 Chest discomfort 02/18/2014 11/13/2015 ADD (attention deficit disorder) 07/29/2009 02/02/2021 Last Assessment & Plan: Assessment: no rx Papanicolaou smear of cervix with atypical squamous cells of undetermined significance (ASC-US) 01/29/2009 11/17/2011 Abnormal involuntary movements(781.0) 12/06/2005 11/13/2015 Adjustment disorder with depressed mood 12/07/1910/19/2019 Acute gastritis without mention of hemorrhage 11/13/2015 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 11/22/2018 Overview: flecainide; indication: symptomatic PSVT with WPW syndrome documented as of this encounter (statuses as of 12/28/2022) [facility] History of Past illness Narrative* Problem Noted Date Resolved Date Abnormal uterine bleeding 04/17/20142013 Rapid palpitations 02/18/2014 03/23/2018 Wskzm-Almjlnlkw-Ahzxh (WPW) syndrome 02/18/2014 03/23/2018 Chest discomfort 02/18/2014 11/13/2015 ADD (attention deficit disorder) 07/29/2009 02/02/2021 Last Assessment & Plan: Assessment: no rx Papanicolaou smear of cervix with atypical squamous cells of undetermined significance (ASC-US) 01/29/2009 11/17/2011 Abnormal involuntary movements(781.0) 12/06/2005 11/13/2015 Adjustment disorder with depressed mood 12/07/19 06 10/19/2019 Acute gastritis without mention of hemorrhage 11/13/2015 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 11/22/2018 Overview: flecainide; indication: symptomatic PSVT with WPW syndrome documented as of this encounter (statuses as of 12/28/2022) [facility] History of Past illness Narrative* Problem Noted Date Resolved Date Abnormal uterine bleeding 04/17/20142013 Rapid palpitations 02/18/2014 03/23/2018 Sgbqs-Xjngiroot-Zokdk (WPW) syndrome 02/18/2014 03/23/2018 Chest discomfort 02/18/2014 11/13/2015 ADD (attention deficit disorder) 07/29/2009 02/02/2021 Last Assessment & Plan: Assessment: no rx Papanicolaou smear of cervix with atypical squamous cells of undetermined significance (ASC-US) 01/29/2009 11/17/2011 Abnormal involuntary movements(781.0) 12/06/2005 11/13/2015 Adjustment disorder with depressed mood 12/07/1910/19/2019 Acute gastritis without mention of hemorrhage 11/13/2015 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 11/22/2018 Overview: flecainide; indication: symptomatic PSVT with WPW syndrome documented as of this encounter (statuses as of 12/28/2022) [facility] History of Past illness Narrative* Problem Noted Date Resolved Date Abnormal uterine bleeding 04/17/20142013 Rapid palpitations 02/18/2014 03/23/2018 Ltnds-Vvzfixrlj-Oukic (WPW) syndrome 02/18/2014 03/23/2018 Chest discomfort 02/18/2014 11/13/2015 ADD (attention deficit disorder) 07/29/2009 02/02/2021 Last Assessment & Plan: Assessment: no rx Papanicolaou smear of cervix with atypical squamous cells of undetermined significance (ASC-US) 01/29/2009 11/17/2011 Abnormal involuntary movements(781.0) 12/06/2005 11/13/2015 Adjustment disorder with depressed mood 12/07/1910/19/2019 Acute gastritis without mention of hemorrhage 11/13/2015 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 11/22/2018 Overview: flecainide; indication: symptomatic PSVT with WPW syndrome documented as of this encounter (statuses as of 01/03/2023) [facility] History of Past illness Narrative* Problem Noted Date Resolved Date Abnormal uterine bleeding 04/17/20142013 Rapid palpitations 02/18/2014 03/23/2018 Kklnw-Exncpmzvy-Haggu (WPW) syndrome 02/18/2014 03/23/2018 Chest discomfort 02/18/2014 11/13/2015 ADD (attention deficit disorder) 07/29/2009 02/02/2021 Last Assessment & Plan: Assessment: no rx Papanicolaou smear of cervix with atypical squamous cells of undetermined significance (ASC-US) 01/29/2009 11/17/2011 Abnormal involuntary movements(781.0) 12/06/2005 11/13/2015 Adjustment disorder with depressed mood 12/07/1910/19/2019 Acute gastritis without mention of hemorrhage 11/13/2015 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 11/22/2018 Overview: flecainide; indication: symptomatic PSVT with WPW syndrome documented as of this encounter (statuses as of 01/12/2023) [facility] History of Past illness Narrative* Problem Noted Date Resolved Date Abnormal uterine bleeding 04/17/20142013 Rapid palpitations 02/18/2014 03/23/2018 Oddlg-Nwpdlnhwb-Hvtpa (WPW) syndrome 02/18/2014 03/23/2018 Chest discomfort 02/18/2014 11/13/2015 ADD (attention deficit disorder) 07/29/2009 02/02/2021 Last Assessment & Plan: Assessment: no rx Papanicolaou smear of cervix with atypical squamous cells of undetermined significance (ASC-US) 01/29/2009 11/17/2011 Abnormal involuntary movements(781.0) 12/06/2005 11/13/2015 Adjustment disorder with depressed mood 12/07/1910/19/2019 Acute gastritis without mention of hemorrhage 11/13/2015 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 11/22/2018 Overview: flecainide; indication: symptomatic PSVT with WPW syndrome documented as of this encounter (statuses as of 01/12/2023) [facility] History of Past illness Narrative* Problem Noted Date Resolved Date Abnormal uterine bleeding 04/17/20142013 Rapid palpitations 02/18/2014 03/23/2018 Nmwdq-Dqjucdfzi-Txngh (WPW) syndrome 02/18/2014 03/23/2018 Chest discomfort 02/18/2014 11/13/2015 ADD (attention deficit disorder) 07/29/2009 02/02/2021 Last Assessment & Plan: Assessment: no rx Papanicolaou smear of cervix with atypical squamous cells of undetermined significance (ASC-US) 01/29/2009 11/17/2011 Abnormal involuntary movements(781.0) 12/06/2005 11/13/2015 Adjustment disorder with depressed mood 12/07/1910/19/2019 Acute gastritis without mention of hemorrhage 11/13/2015 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 11/22/2018 Overview: flecainide; indication: symptomatic PSVT with WPW syndrome documented as of this encounter (statuses as of 01/14/2023) [facility] History of Past illness Narrative* Problem Noted Date Resolved Date Abnormal uterine bleeding 04/17/20142013 Rapid palpitations 02/18/2014 03/23/2018 Urlvh-Iveyaclzh-Owpid (WPW) syndrome 02/18/2014 03/23/2018 Chest discomfort 02/18/2014 11/13/2015 ADD (attention deficit disorder) 07/29/2009 02/02/2021 Last Assessment & Plan: Assessment: no rx Papanicolaou smear of cervix with atypical squamous cells of undetermined significance (ASC-US) 01/29/2009 11/17/2011 Abnormal involuntary movements(781.0) 12/06/2005 11/13/2015 Adjustment disorder with depressed mood 12/07/1910/19/2019 Acute gastritis without mention of hemorrhage 11/13/2015 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 11/22/2018 Overview: flecainide; indication: symptomatic PSVT with WPW syndrome documented as of this encounter (statuses as of 01/15/2023) [facility] History of Past illness Narrative* Problem Noted Date Resolved Date Abnormal uterine bleeding 04/17/20142013 Rapid palpitations 02/18/2014 03/23/2018 Ignaf-Nqvlinaak-Lofmf (WPW) syndrome 02/18/2014 03/23/2018 Chest discomfort 02/18/2014 11/13/2015 ADD (attention deficit disorder) 07/29/2009 02/02/2021 Last Assessment & Plan: Assessment: no rx Papanicolaou smear of cervix with atypical squamous cells of undetermined significance (ASC-US) 01/29/2009 11/17/2011 Abnormal involuntary movements(781.0) 12/06/2005 11/13/2015 Adjustment disorder with depressed mood 12/07/1910/19/2019 Acute gastritis without mention of hemorrhage 11/13/2015 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 11/22/2018 Overview: flecainide; indication: symptomatic PSVT with WPW syndrome documented as of this encounter (statuses as of 01/18/2023) [facility] History of Past illness Narrative* Problem Noted Date Resolved Date Abnormal uterine bleeding 04/17/20142013 Rapid palpitations 02/18/2014 03/23/2018 Abwby-Kftvlteco-Zsrsp (WPW) syndrome 02/18/2014 03/23/2018 Chest discomfort 02/18/2014 11/13/2015 ADD (attention deficit disorder) 07/29/2009 02/02/2021 Last Assessment & Plan: Assessment: no rx Papanicolaou smear of cervix with atypical squamous cells of undetermined significance (ASC-US) 01/29/2009 11/17/2011 Abnormal involuntary movements(781.0) 12/06/2005 11/13/2015 Adjustment disorder with depressed mood 12/07/19 06 10/19/2019 Acute gastritis without mention of hemorrhage 11/13/2015 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 11/22/2018 Overview: flecainide; indication: symptomatic PSVT with WPW syndrome documented as of this encounter (statuses as of 01/21/2023) [facility] History of Past illness Narrative* Problem Noted Date Resolved Date Abnormal uterine bleeding 04/17/20142013 Rapid palpitations 02/18/2014 03/23/2018 Rhaaa-Vuwounavv-Quowm (WPW) syndrome 02/18/2014 03/23/2018 Chest discomfort 02/18/2014 11/13/2015 ADD (attention deficit disorder) 07/29/2009 02/02/2021 Last Assessment & Plan: Assessment: no rx Papanicolaou smear of cervix with atypical squamous cells of undetermined significance (ASC-US) 01/29/2009 11/17/2011 Abnormal involuntary movements(781.0) 12/06/2005 11/13/2015 Adjustment disorder with depressed mood 12/07/1910/19/2019 Acute gastritis without mention of hemorrhage 11/13/2015 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 11/22/2018 Overview: flecainide; indication: symptomatic PSVT with WPW syndrome documented as of this encounter (statuses as of 01/26/2023) [facility] History of Past illness Narrative* Problem Noted Date Resolved Date Abnormal uterine bleeding 04/17/20142013 Rapid palpitations 02/18/2014 03/23/2018 Lyrhg-Kqswgvcvn-Ptjay (WPW) syndrome 02/18/2014 03/23/2018 Chest discomfort 02/18/2014 11/13/2015 ADD (attention deficit disorder) 07/29/2009 02/02/2021 Last Assessment & Plan: Assessment: no rx Papanicolaou smear of cervix with atypical squamous cells of undetermined significance (ASC-US) 01/29/2009 11/17/2011 Abnormal involuntary movements(781.0) 12/06/2005 11/13/2015 Adjustment disorder with depressed mood 12/07/1910/19/2019 Acute gastritis without mention of hemorrhage 11/13/2015 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 11/22/2018 Overview: flecainide; indication: symptomatic PSVT with WPW syndrome documented as of this encounter (statuses as of 02/01/2023) [facility] History of Past illness Narrative* Problem Noted Date Resolved Date Abnormal uterine bleeding 04/17/20142013 Rapid palpitations 02/18/2014 03/23/2018 Wsnhk-Kxwfszhsi-Tncbu (WPW) syndrome 02/18/2014 03/23/2018 Chest discomfort 02/18/2014 11/13/2015 ADD (attention deficit disorder) 07/29/2009 02/02/2021 Last Assessment & Plan: Assessment: no rx Papanicolaou smear of cervix with atypical squamous cells of undetermined significance (ASC-US) 01/29/2009 11/17/2011 Abnormal involuntary movements(781.0) 12/06/2005 11/13/2015 Adjustment disorder with depressed mood 12/07/1910/19/2019 Acute gastritis without mention of hemorrhage 11/13/2015 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 11/22/2018 Overview: flecainide; indication: symptomatic PSVT with WPW syndrome documented as of this encounter (statuses as of 02/07/2023) [facility] of Past illness Narrative* Problem Noted Date Resolved Date Abnormal uterine bleeding 04/17/20142013 Rapid palpitations 02/18/2014 03/23/2018 Trlkx-Avbfgqmon-Pejvx (WPW) syndrome 02/18/2014 03/23/2018 Chest discomfort 02/18/2014 11/13/2015 ADD (attention deficit disorder) 07/29/2009 02/02/2021 Last Assessment & Plan: Assessment: no rx Papanicolaou smear of cervix with atypical squamous cells of undetermined significance (ASC-US) 01/29/2009 11/17/2011 Abnormal involuntary movements(781.0) 12/06/2005 11/13/2015 Adjustment disorder with depressed mood 12/07/1910/19/2019 Acute gastritis without mention of hemorrhage 11/13/2015 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 11/22/2018 Overview: flecainide; indication: symptomatic PSVT with WPW syndrome documented as of this encounter (statuses as of 03/04/2023) [facility] History of Past illness Narrative* Problem Noted Date Resolved Date Abnormal uterine bleeding 04/17/20142013 Rapid palpitations 02/18/2014 03/23/2018 Vtwdn-Hyozklmmo-Wurzv (WPW) syndrome 02/18/2014 03/23/2018 Chest discomfort 02/18/2014 11/13/2015 ADD (attention deficit disorder) 07/29/2009 02/02/2021 Last Assessment & Plan: Assessment: no rx Papanicolaou smear of cervix with atypical squamous cells of undetermined significance (ASC-US) 01/29/2009 11/17/2011 Abnormal involuntary movements(781.0) 12/06/2005 11/13/2015 Adjustment disorder with depressed mood 12/07/1910/19/2019 Acute gastritis without mention of hemorrhage 11/13/2015 [employer]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 11/22/2018 Overview: flecainide; indication: symptomatic PSVT with WPW syndrome documented as of this encounter (statuses as of 03/07/2023) [facility] History of Past illness Narrative* Problem Noted Date Diagnosed Date Resolved Date Abnormal uterine bleeding 04/17/2014 Rapid palpitations 02/18/2014 8 Uwdna-Okvgqzspg-Yppud (WPW) syndrome 02/18/2014 03/23/2018 Chest discomfort 02/18/2014 11/13/2015 ADD (attention deficit disorder) 07/29/2009 02/02/2021 Last Assessment & Plan: Assessment: no rx Papanicolaou smear of cervix with atypical squamous cells of undetermined significance (ASC-US) 01/29/2009 11/17/2011 Abnormal involuntary movements(781.0) 12/06/2005 11/13/2015 Adjustment disorder with depressed mood 12/06/2005 10/19/2019 Acute gastritis without mention of hemorrhage 12/07/1911/13/2015 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 11/22/2018 Overview: flecainide; indication: symptomatic PSVT with WPW syndrome documented as of this encounter (statuses as of 04/19/2023) [facility] History of Past illness Narrative* Problem Noted Date Diagnosed Date Resolved Date Abnormal uterine bleeding 04/17/2014 Rapid palpitations 02/18/2014 8 Znvkl-Khsoazpcy-Xxrya (WPW) syndrome 02/18/2014 03/23/2018 Chest discomfort 02/18/2014 11/13/2015 ADD (attention deficit disorder) 07/29/2009 02/02/2021 Last Assessment & Plan: Assessment: no rx Papanicolaou smear of cervix with atypical squamous cells of undetermined significance (ASC-US) 01/29/2009 11/17/2011 Abnormal involuntary movements(781.0) 12/06/2005 11/13/2015 Adjustment disorder with depressed mood 12/06/2005 10/19/2019 Acute gastritis without mention of hemorrhage 12/07/1911/13/2015 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 11/22/2018 Overview: flecainide; indication: symptomatic PSVT with WPW syndrome documented as of this encounter (statuses as of 05/19/2023) [facility] History of Past illness Narrative* Problem Noted Date Diagnosed Date Resolved Date Abnormal uterine bleeding 04/17/2014 Rapid palpitations 02/18/2014 8 Bfhyl-Lbdhsqjgb-Afhgr (WPW) syndrome 02/18/2014 03/23/2018 Chest discomfort 02/18/2014 11/13/2015 ADD (attention deficit disorder) 07/29/2009 02/02/2021 Last Assessment & Plan: Assessment: no rx Papanicolaou smear of cervix with atypical squamous cells of undetermined significance (ASC-US) 01/29/2009 11/17/2011 Abnormal involuntary movements(781.0) 12/06/2005 11/13/2015 Adjustment disorder with depressed mood 12/06/2005 10/19/2019 Acute gastritis without mention of hemorrhage 12/07/1911/13/2015 [employer]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 11/22/2018 Overview: flecainide; indication: symptomatic PSVT with WPW syndrome documented as of this encounter (statuses as of 05/25/2023) [facility] History of Past illness Narrative* Problem Noted Date Diagnosed Date Resolved Date Abnormal uterine bleeding 04/17/2014 Rapid palpitations 02/18/2014 8 Twbez-Hnhemmniw-Mkazo (WPW) syndrome 02/18/2014 03/23/2018 Chest discomfort 02/18/2014 11/13/2015 ADD (attention deficit disorder) 07/29/2009 02/02/2021 Last Assessment & Plan: Assessment: no rx Papanicolaou smear of cervix with atypical squamous cells of undetermined significance (ASC-US) 01/29/2009 11/17/2011 Abnormal involuntary movements(781.0) 12/06/2005 11/13/2015 Adjustment disorder with depressed mood 12/06/2005 10/19/2019 Acute gastritis without mention of hemorrhage 12/07/1911/13/2015 [employer]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 11/22/2018 Overview: flecainide; indication: symptomatic PSVT with WPW syndrome documented as of this encounter (statuses as of 06/01/2023) [facility] History of Past illness Narrative* Problem Noted Date Diagnosed Date Resolved Date Abnormal uterine bleeding 04/17/2014 Rapid palpitations 02/18/2014 8 Daxji-Wrmwmbpdc-Vkfng (WPW) syndrome 02/18/2014 03/23/2018 Chest discomfort 02/18/2014 11/13/2015 ADD (attention deficit disorder) 07/29/2009 02/02/2021 Last Assessment & Plan: Assessment: no rx Papanicolaou smear of cervix with atypical squamous cells of undetermined significance (ASC-US) 01/29/2009 11/17/2011 Abnormal involuntary movements(781.0) 12/06/2005 11/13/2015 Adjustment disorder with depressed mood 12/06/2005 10/19/2019 Acute gastritis without mention of hemorrhage 12/07/1911/13/2015 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 11/22/2018 Overview: flecainide; indication: symptomatic PSVT with WPW syndrome documented as of this encounter (statuses as of 06/09/2023) [facility] History of Past illness Narrative* Problem Noted Date Diagnosed Date Resolved Date Abnormal uterine bleeding 04/17/2014 Rapid palpitations 02/18/2014 8 Vaqxq-Ksixzrtxa-Fxpxx (WPW) syndrome 02/18/2014 03/23/2018 Chest discomfort 02/18/2014 11/13/2015 ADD (attention deficit disorder) 07/29/2009 02/02/2021 Last Assessment & Plan: Assessment: no rx Papanicolaou smear of cervix with atypical squamous cells of undetermined significance (ASC-US) 01/29/2009 11/17/2011 Abnormal involuntary movements(781.0) 12/06/2005 11/13/2015 Adjustment disorder with depressed mood 12/06/2005 10/19/2019 Acute gastritis without mention of hemorrhage 12/07/19 06 11/13/2015 [employer]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 11/22/2018 Overview: flecainide; indication: symptomatic PSVT with WPW syndrome documented as of this encounter (statuses as of 06/10/2023) [facility] History of Past illness Narrative* Problem Noted Date Diagnosed Date Resolved Date Abnormal uterine bleeding 04/17/2014 Rapid palpitations 02/18/2014 8 Goqex-Xyzmnwlpb-Ockcy (WPW) syndrome 02/18/2014 03/23/2018 Chest discomfort 02/18/2014 11/13/2015 ADD (attention deficit disorder) 07/29/2009 02/02/2021 Last Assessment & Plan: Assessment: no rx Papanicolaou smear of cervix with atypical squamous cells of undetermined significance (ASC-US) 01/29/2009 11/17/2011 Abnormal involuntary movements(781.0) 12/06/2005 11/13/2015 Adjustment disorder with depressed mood 12/06/2005 10/19/2019 Acute gastritis without mention of hemorrhage 12/07/1911/13/2015 [employer]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 11/22/2018 Overview: flecainide; indication: symptomatic PSVT with WPW syndrome documented as of this encounter (statuses as of 07/11/2023) [facility] History of Past illness Narrative* Problem Noted Date Diagnosed Date Resolved Date Abnormal uterine bleeding 04/17/2014 Rapid palpitations 02/18/2014 8 Xnqqz-Mxagshxsx-Ucswg (WPW) syndrome 02/18/2014 03/23/2018 Chest discomfort 02/18/2014 11/13/2015 ADD (attention deficit disorder) 07/29/2009 02/02/2021 Last Assessment & Plan: Assessment: no rx Papanicolaou smear of cervix with atypical squamous cells of undetermined significance (ASC-US) 01/29/2009 11/17/2011 Abnormal involuntary movements(781.0) 12/06/2005 11/13/2015 Adjustment disorder with depressed mood 12/06/2005 10/19/2019 Acute gastritis without mention of hemorrhage 12/07/1911/13/2015 [employer]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 11/22/2018 Overview: flecainide; indication: symptomatic PSVT with WPW syndrome documented as of this encounter (statuses as of 07/12/2023) [facility] History of Past illness Narrative* Problem Noted Date Diagnosed Date Resolved Date Abnormal uterine bleeding 04/17/2014 Rapid palpitations 02/18/2014 8 Koeav-Tidpwkdtp-Nssdz (WPW) syndrome 02/18/2014 03/23/2018 Chest discomfort 02/18/2014 11/13/2015 ADD (attention deficit disorder) 07/29/2009 02/02/2021 Last Assessment & Plan: Assessment: no rx Papanicolaou smear of cervix with atypical squamous cells of undetermined significance (ASC-US) 01/29/2009 11/17/2011 Abnormal involuntary movements(781.0) 12/06/2005 11/13/2015 Adjustment disorder with depressed mood 12/06/2005 10/19/2019 Acute gastritis without mention of hemorrhage 12/07/1911/13/2015 [employer]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 11/22/2018 Overview: flecainide; indication: symptomatic PSVT with WPW syndrome documented as of this encounter (statuses as of 07/13/2023) [facility] History of Past illness Narrative* Problem Noted Date Diagnosed Date Resolved Date Abnormal uterine bleeding 04/17/2014 Rapid palpitations 02/18/2014 8 Cgvgd-Vbzusxtrw-Juixc (WPW) syndrome 02/18/2014 03/23/2018 Chest discomfort 02/18/2014 11/13/2015 ADD (attention deficit disorder) 07/29/2009 02/02/2021 Last Assessment & Plan: Assessment: no rx Papanicolaou smear of cervix with atypical squamous cells of undetermined significance (ASC-US) 01/29/2009 11/17/2011 Abnormal involuntary movements(781.0) 12/06/2005 11/13/2015 Adjustment disorder with depressed mood 12/06/2005 10/19/2019 Acute gastritis without mention of hemorrhage 12/07/1911/13/2015 [employer]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 11/22/2018 Overview: flecainide; indication: symptomatic PSVT with WPW syndrome documented as of this encounter (statuses as of 07/19/2023) [facility] History of Past illness Narrative* Problem Noted Date Diagnosed Date Resolved Date Abnormal uterine bleeding 04/17/2014 Rapid palpitations 02/18/2014 8 Jezgf-Nvuoaunyd-Lhxfm (WPW) syndrome 02/18/2014 03/23/2018 Chest discomfort 02/18/2014 11/13/2015 ADD (attention deficit disorder) 07/29/2009 02/02/2021 Last Assessment & Plan: Assessment: no rx Papanicolaou smear of cervix with atypical squamous cells of undetermined significance (ASC-US) 01/29/2009 11/17/2011 Abnormal involuntary movements(781.0) 12/06/2005 11/13/2015 Adjustment disorder with depressed mood 12/06/2005 10/19/2019 Acute gastritis without mention of hemorrhage 12/07/1911/13/2015 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 11/22/2018 Overview: flecainide; indication: symptomatic PSVT with WPW syndrome documented as of this encounter (statuses as of 08/06/2023) [facility] History of Past illness Narrative* Problem Noted Date Diagnosed Date Resolved Date Abnormal uterine bleeding 04/17/2014 Rapid palpitations 02/18/2014 8 Twzwk-Rnpzbakzo-Rbvwh (WPW) syndrome 02/18/2014 03/23/2018 Chest discomfort 02/18/2014 11/13/2015 ADD (attention deficit disorder) 07/29/2009 02/02/2021 Last Assessment & Plan: Assessment: no rx Papanicolaou smear of cervix with atypical squamous cells of undetermined significance (ASC-US) 01/29/2009 11/17/2011 Abnormal involuntary movements(781.0) 12/06/2005 11/13/2015 Adjustment disorder with depressed mood 12/06/2005 10/19/2019 Acute gastritis without mention of hemorrhage 12/07/1911/13/2015 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 11/22/2018 Overview: flecainide; indication: symptomatic PSVT with WPW syndrome documented as of this encounter (statuses as of 08/17/2023) [facility] History of Past illness Narrative* Problem Noted Date Diagnosed Date Resolved Date Abnormal uterine bleeding 04/17/2014 Rapid palpitations 02/18/2014 8 Vqets-Elxlidsid-Uykkm (WPW) syndrome 02/18/2014 03/23/2018 Chest discomfort 02/18/2014 11/13/2015 ADD (attention deficit disorder) 07/29/2009 02/02/2021 Last Assessment & Plan: Assessment: no rx Papanicolaou smear of cervix with atypical squamous cells of undetermined significance (ASC-US) 01/29/2009 11/17/2011 Abnormal involuntary movements(781.0) 12/06/2005 11/13/2015 Adjustment disorder with depressed mood 12/06/2005 10/19/2019 Acute gastritis without mention of hemorrhage 12/07/1911/13/2015 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 11/22/2018 Overview: flecainide; indication: symptomatic PSVT with WPW syndrome documented as of this encounter (statuses as of 08/22/2023) [facility]unem[facility] foundation noteThere may be information available, but it has not been provided by the sender.[facility] Work Phone: Evaluation note* Diagnosis Nausea and vomiting Nausea with vomiting [facility] Diagnosis Anxiety disorder, unspecified type [facility] Diagnosis Leg cramps- Primary Cramp of limb Anxiety disorder, unspecified type [facility]* Diagnosis Chronic migraine without aura, intractable, without status migrainosus- Primary [facility]* Diagnosis Prolapsed internal hemorrhoids- Primary Internal hemorrhoids with other complication Prolapsed internal hemorrhoids Internal hemorrhoids with other complication [facility]* Diagnosis Chronic migraine without aura, intractable, without status migrainosus- Primary Prolapsed internal hemorrhoids Internal hemorrhoids with other complication [facility] Diagnosis Encounter for screening mammogram for breast cancer Prolapsed internal hemorrhoids Internal hemorrhoids with other complication [facility] Diagnosis Pre-operative examination- Primary Preoperative examination, unspecified WPW ([place]-Mrpyfjuah-Pqzxn syndrome) Anomalous atrioventricular excitation Gastro-esophageal reflux disease without esophagitis Esophageal reflux Palpitations Anxiety disorder, unspecified type Mild intermittent asthma, unspecified whether complicated Chronic insomnia Insomnia, unspecified History of fusion of cervical spine Arthrodesis status Internal hemorrhoids Internal hemorrhoids without mention of complication Irritable bowel syndrome with diarrhea Irritable bowel syndrome Prolapsed internal hemorrhoids Internal hemorrhoids with other complication [facility]* Diagnosis Nausea and vomiting Nausea with vomiting Chronic migraine without aura, intractable, without status migrainosus- Primary [facility] Diagnosis Irritable bowel syndrome with both constipation and diarrhea- Primary [facility]* Diagnosis Acute cough- Primary Flu-like symptoms Other general symptoms [facility]* Diagnosis Paroxysmal supraventricular tachycardia (HCC)- Primary Paroxysmal supraventricular tachycardia WPW (Dzxks-Kpfwthqeb-Tjjfw syndrome) 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 Other postprocedural status Palpitations [facility]* Diagnosis Anxiety disorder, unspecified type documented in this encounter [facility] note* Diagnosis Hip pain- Primary Pain in joint, pelvic region and thigh Anxiety disorder, unspecified type Seasonal allergic rhinitis due to pollen Primary insomnia Persistent disorder of initiating or maintaining sleep documented in this encounter [facility] noteNo assessment information availableWGreene [facility] Work Phone: Evaluation note* Diagnosis Pain- Primary Generalized pain [facility]* Diagnosis Chronic migraine without aura, intractable, without status migrainosus- Primary Medication monitoring encounter Encounter for therapeutic drug monitoring [facility] Diagnosis Gastroesophageal reflux disease, unspecified whether esophagitis present- Primary Irritable bowel syndrome with both constipation and diarrhea [facility]* Diagnosis Anxiety disorder, unspecified type- Primary documented in this encounter [facility] note* Diagnosis Lateral pain of left hip- Primary Pain in joint, pelvic region and thigh Lateral pain of right hip Greater trochanteric bursitis of both hips Enthesopathy of hip region [facility]* Diagnosis Chronic migraine without aura, intractable, without status migrainosus- Primary [facility]* Diagnosis Palpitations- Primary Paroxysmal supraventricular tachycardia (HCC) Paroxysmal supraventricular tachycardia [facility]* Diagnosis Dizziness- Primary Dizziness and giddiness PVC's (premature ventricular contractions) Other premature beats Chronic cough Cough Mild intermittent asthma, unspecified whether complicated [facility] Diagnosis Chronic cough Cough Mild intermittent asthma, unspecified whether complicated [facility] Diagnosis Encounter for screening mammogram for breast cancer [facility]* Diagnosis Chronic cough Cough Mild intermittent asthma, unspecified whether complicated [facility] Diagnosis Chronic migraine without aura, intractable, without status migrainosus- Primary [facility]* Diagnosis Dizziness Dizziness and giddiness PVC's (premature ventricular contractions) Other premature beats [facility] Diagnosis Onset Date Resolution Status Dyspareunia acute [id number] noneactive [facility] Work Phone: Evaluation note* Diagnosis Anxiety Anxiety state, unspecified [facility]* Diagnosis Wellness examination- Primary Anxiety Anxiety state, unspecified Screening for endocrine, metabolic and immunity disorder Encounter for screening mammogram for malignant neoplasm of breast Other screening mammogram Bilateral hip pain Pain in joint, pelvic region and thigh Melanocytic nevus, unspecified location [facility]* Diagnosis Pain of right hip- Primary Bilateral hip pain Pain in joint, pelvic region and thigh [facility]* Diagnosis Lateral pain of right hip Lateral pain of left hip Pain in joint, pelvic region and thigh [facility]* Diagnosis Hoarseness- Primary Dysphonia Vocal tremor Essential and other specified forms of tremor Gastroesophageal reflux disease, unspecified whether esophagitis present [facility]* Diagnosis Sinus congestion- Primary Other diseases of nasal cavity and sinuses [facility]* Diagnosis Onset Date Resolution Status Dyspareunia acute Levator spasm acute Recurrent candidiasis of vagina acute [facility] Work Phone: Evaluation note* Diagnosis Chronic migraine without aura, intractable, without status migrainosus- Primary [facility]* Diagnosis Oropharyngeal dysphagia- Primary Dysphagia, oropharyngeal phase [facility] this [facility]* Diagnosis Gastroesophageal reflux disease, unspecified whether esophagitis present [facility] Diagnosis Pain of right hip- Primary Acetabular labrum tear, right, initial encounter [facility] Diagnosis Mild persistent asthma with acute exacerbation- Primary Unspecified asthma, with exacerbation [facility]* Diagnosis Tear of right acetabular labrum, initial encounter [facility]* Diagnosis Chronic migraine without aura, intractable, without status migrainosus- Primary Chronic daily headache Headache Intractable chronic migraine without aura and without status migrainosus Chronic migraine without aura, with intractable migraine, so stated, without mention of status migrainosus Bilateral occipital neuralgia Other syndromes affecting cervical region Migraine without aura and without status migrainosus, not intractable Migraine without aura, without mention of intractable migraine without mention of status migrainosus Cervicalgia [facility] Diagnosis Tear of right acetabular labrum, initial encounter [facility]* Diagnosis Chronic rhinitis- Primary Mild persistent asthma without complication Unspecified asthma Allergic conjunctivitis, bilateral Other chronic allergic conjunctivitis PVC (premature ventricular contraction) Other premature beats Chronic sinusitis, unspecified location 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 Vasomotor rhinitis Allergic rhinitis, cause unspecified Inducible laryngeal obstruction (ILO) Allergic contact dermatitis due to adhesives Contact dermatitis and other eczema due to other chemical products Hoarseness of voice Dysphonia [facility] Diagnosis Pre-operative examination- Primary Preoperative examination, unspecified Internal hemorrhoids Internal hemorrhoids without mention of complication WPW (Jubxr-Hjpuaxcug-Yizei syndrome) Anomalous atrioventricular excitation Paroxysmal supraventricular tachycardia (HCC) Paroxysmal supraventricular tachycardia Palpitations Chronic insomnia Insomnia, unspecified Chronic migraine without aura, with intractable migraine, so stated, with status migrainosus Mild intermittent asthma, unspecified whether complicated Gastro-esophageal reflux disease without esophagitis Esophageal reflux Attention deficit disorder, unspecified hyperactivity presence Anxiety disorder, unspecified type Pre-operative examination- Primary Preoperative examination, unspecified WPW (Yocyb-Ttcbctdvn-Dcjgm syndrome) Anomalous atrioventricular excitation Gastro-esophageal reflux disease without esophagitis Esophageal reflux Palpitations Anxiety disorder, unspecified type Mild intermittent asthma, unspecified whether complicated Chronic insomnia Insomnia, unspecified History of fusion of cervical spine Arthrodesis status Internal hemorrhoids Internal hemorrhoids without mention of complication Irritable bowel syndrome with diarrhea Irritable bowel syndrome Paroxysmal supraventricular tachycardia (HCC)- Primary Paroxysmal supraventricular tachycardia WPW (Nvmrq-Tqjszwobc-Mcluy syndrome) 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 Other postprocedural status Sinus tachycardia Other specified cardiac dysrhythmias PVC (premature ventricular contraction) Other premature beats Palpitations documented in this encounter [facility] note* Diagnosis Pre-operative examination- Primary Preoperative examination, unspecified Internal hemorrhoids Internal hemorrhoids without mention of complication WPW (Dmlkp-Akhbejwxv-Uldyt syndrome) Anomalous atrioventricular excitation Paroxysmal supraventricular tachycardia (HCC) Paroxysmal supraventricular tachycardia Palpitations Chronic insomnia Insomnia, unspecified Chronic migraine without aura, with intractable migraine, so stated, with status migrainosus Mild intermittent asthma, unspecified whether complicated Gastro-esophageal reflux disease without esophagitis Esophageal reflux Attention deficit disorder, unspecified hyperactivity presence Anxiety disorder, unspecified type Pre-operative examination- Primary Preoperative examination, unspecified WPW (Uxgha-Xurqamdgv-Wfqpr syndrome) Anomalous atrioventricular excitation Gastro-esophageal reflux disease without esophagitis Esophageal reflux Palpitations Anxiety disorder, unspecified type Mild intermittent asthma, unspecified whether complicated Chronic insomnia Insomnia, unspecified History of fusion of cervical spine Arthrodesis status Internal hemorrhoids Internal hemorrhoids without mention of complication Irritable bowel syndrome with diarrhea Irritable bowel syndrome Paroxysmal supraventricular tachycardia (HCC) Paroxysmal supraventricular tachycardia WPW (Asabo-Jupnaagul-Kwnvo syndrome) 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 Other postprocedural status Sinus tachycardia Other specified cardiac dysrhythmias PVC (premature ventricular contraction) Other premature beats Palpitations documented in this encounter [facility] note* Diagnosis Pre-operative examination- Primary Preoperative examination, unspecified Internal hemorrhoids Internal hemorrhoids without mention of complication WPW (Pejic-Ziixfnxqz-Izcpd syndrome) Anomalous atrioventricular excitation Paroxysmal supraventricular tachycardia (HCC) Paroxysmal supraventricular tachycardia Palpitations Chronic insomnia Insomnia, unspecified Chronic migraine without aura, with intractable migraine, so stated, with status migrainosus Mild intermittent asthma, unspecified whether complicated Gastro-esophageal reflux disease without esophagitis Esophageal reflux Attention deficit disorder, unspecified hyperactivity presence Anxiety disorder, unspecified type Pre-operative examination- Primary Preoperative examination, unspecified WPW (Jlacd-Cmejeasxc-Pkucl syndrome) Anomalous atrioventricular excitation Gastro-esophageal reflux disease without esophagitis Esophageal reflux Palpitations Anxiety disorder, unspecified type Mild intermittent asthma, unspecified whether complicated Chronic insomnia Insomnia, unspecified History of fusion of cervical spine Arthrodesis status Internal hemorrhoids Internal hemorrhoids without mention of complication Irritable bowel syndrome with diarrhea Irritable bowel syndrome [facility] of right [facility] Diagnosis Pre-operative examination- Primary Preoperative examination, unspecified Internal hemorrhoids Internal hemorrhoids without mention of complication WPW (Bllgq-Ruxrfewlm-Jcgnz syndrome) Anomalous atrioventricular excitation Paroxysmal supraventricular tachycardia (HCC) Paroxysmal supraventricular tachycardia Palpitations Chronic insomnia Insomnia, unspecified Chronic migraine without aura, with intractable migraine, so stated, with status migrainosus Mild intermittent asthma, unspecified whether complicated Gastro-esophageal reflux disease without esophagitis Esophageal reflux Attention deficit disorder, unspecified hyperactivity presence Anxiety disorder, unspecified type Pre-operative examination- Primary Preoperative examination, unspecified WPW (Quygx-Qzjpxeyhf-Qncrl syndrome) Anomalous atrioventricular excitation Gastro-esophageal reflux disease without esophagitis Esophageal reflux Palpitations Anxiety disorder, unspecified type Mild intermittent asthma, unspecified whether complicated Chronic insomnia Insomnia, unspecified History of fusion of cervical spine Arthrodesis status Internal hemorrhoids Internal hemorrhoids without mention of complication Irritable bowel syndrome with diarrhea Irritable bowel syndrome Pain- Primary Generalized pain documented in this encounter [facility] note* Diagnosis Pre-operative examination- Primary Preoperative examination, unspecified Internal hemorrhoids Internal hemorrhoids without mention of complication WPW (Eoiqm-Yvpjcncyf-Xeydb syndrome) Anomalous atrioventricular excitation Paroxysmal supraventricular tachycardia (HCC) Paroxysmal supraventricular tachycardia Palpitations Chronic insomnia Insomnia, unspecified Chronic migraine without aura, with intractable migraine, so stated, with status migrainosus Mild intermittent asthma, unspecified whether complicated Gastro-esophageal reflux disease without esophagitis Esophageal reflux Attention deficit disorder, unspecified hyperactivity presence Anxiety disorder, unspecified type Pre-operative examination- Primary Preoperative examination, unspecified WPW (Yuxwx-Pieiswbcq-Ktrcn syndrome) Anomalous atrioventricular excitation Gastro-esophageal reflux disease without esophagitis Esophageal reflux Palpitations Anxiety disorder, unspecified type Mild intermittent asthma, unspecified whether complicated Chronic insomnia Insomnia, unspecified History of fusion of cervical spine Arthrodesis status Internal hemorrhoids Internal hemorrhoids without mention of complication Irritable bowel syndrome with diarrhea Irritable bowel syndrome Pain in left hip- Primary Pain in joint, pelvic region and thigh documented in this encounter [facility] note* Diagnosis Pre-operative examination- Primary Preoperative examination, unspecified Internal hemorrhoids Internal hemorrhoids without mention of complication WPW (Gcmrn-Jldwksfxh-Skbrs syndrome) Anomalous atrioventricular excitation Paroxysmal supraventricular tachycardia (HCC) Paroxysmal supraventricular tachycardia Palpitations Chronic insomnia Insomnia, unspecified Chronic migraine without aura, with intractable migraine, so stated, with status migrainosus Mild intermittent asthma, unspecified whether complicated Gastro-esophageal reflux disease without esophagitis Esophageal reflux Attention deficit disorder, unspecified hyperactivity presence Anxiety disorder, unspecified type Pre-operative examination- Primary Preoperative examination, unspecified WPW (Vhdev-Hfiwupmre-Kvbkd syndrome) Anomalous atrioventricular excitation Gastro-esophageal reflux disease without esophagitis Esophageal reflux Palpitations Anxiety disorder, unspecified type Mild intermittent asthma, unspecified whether complicated Chronic insomnia Insomnia, unspecified History of fusion of cervical spine Arthrodesis status Internal hemorrhoids Internal hemorrhoids without mention of complication Irritable bowel syndrome with diarrhea Irritable bowel syndrome Pain Generalized [facility] Diagnosis Pre-operative examination- Primary Preoperative examination, unspecified Internal hemorrhoids Internal hemorrhoids without mention of complication WPW (Ojrod-Itnvpagvq-Ldfxf syndrome) Anomalous atrioventricular excitation Paroxysmal supraventricular tachycardia (HCC) Paroxysmal supraventricular tachycardia Palpitations Chronic insomnia Insomnia, unspecified Chronic migraine without aura, with intractable migraine, so stated, with status migrainosus Mild intermittent asthma, unspecified whether complicated Gastro-esophageal reflux disease without esophagitis Esophageal reflux Attention deficit disorder, unspecified hyperactivity presence Anxiety disorder, unspecified type Pre-operative examination- Primary Preoperative examination, unspecified WPW (Eqqap-Uehdtblgi-Gwaxp syndrome) Anomalous atrioventricular excitation Gastro-esophageal reflux disease without esophagitis Esophageal reflux Palpitations Anxiety disorder, unspecified type Mild intermittent asthma, unspecified whether complicated Chronic insomnia Insomnia, unspecified History of fusion of cervical spine Arthrodesis status Internal hemorrhoids Internal hemorrhoids without mention of complication Irritable bowel syndrome with diarrhea Irritable bowel syndrome Lateral pain of left hip Pain in joint, pelvic region and thigh Lateral pain of right hip [facility] Diagnosis Pre-operative examination- Primary Preoperative examination, unspecified Internal hemorrhoids Internal hemorrhoids without mention of complication WPW (Ohvrz-Untkpiqci-Xmwqg syndrome) Anomalous atrioventricular excitation Paroxysmal supraventricular tachycardia (HCC) Paroxysmal supraventricular tachycardia Palpitations Chronic insomnia Insomnia, unspecified Chronic migraine without aura, with intractable migraine, so stated, with status migrainosus Mild intermittent asthma, unspecified whether complicated Gastro-esophageal reflux disease without esophagitis Esophageal reflux Attention deficit disorder, unspecified hyperactivity presence Anxiety disorder, unspecified type Pre-operative examination- Primary Preoperative examination, unspecified WPW (Ndsmc-Sndscwxmx-Uhlkj syndrome) Anomalous atrioventricular excitation Gastro-esophageal reflux disease without esophagitis Esophageal reflux Palpitations Anxiety disorder, unspecified type Mild intermittent asthma, unspecified whether complicated Chronic insomnia Insomnia, unspecified History of fusion of cervical spine Arthrodesis status Internal hemorrhoids Internal hemorrhoids without mention of complication Irritable bowel syndrome with diarrhea Irritable bowel syndrome Pain Generalized pain documented in this encounter [facility] note* Diagnosis Pre-operative examination- Primary Preoperative examination, unspecified Internal hemorrhoids Internal hemorrhoids without mention of complication WPW (Imcrx-Fagltgmxu-Ojyxf syndrome) Anomalous atrioventricular excitation Paroxysmal supraventricular tachycardia (HCC) Paroxysmal supraventricular tachycardia Palpitations Chronic insomnia Insomnia, unspecified Chronic migraine without aura, with intractable migraine, so stated, with status migrainosus Mild intermittent asthma, unspecified whether complicated Gastro-esophageal reflux disease without esophagitis Esophageal reflux Attention deficit disorder, unspecified hyperactivity presence Anxiety disorder, unspecified type Pre-operative examination- Primary Preoperative examination, unspecified WPW (Nxzai-Vsriiuuuu-Dpfzi syndrome) Anomalous atrioventricular excitation Gastro-esophageal reflux disease without esophagitis Esophageal reflux Palpitations Anxiety disorder, unspecified type Mild intermittent asthma, unspecified whether complicated Chronic insomnia Insomnia, unspecified History of fusion of cervical spine Arthrodesis status Internal hemorrhoids Internal hemorrhoids without mention of complication Irritable bowel syndrome with diarrhea Irritable bowel syndrome Pain of left hip- Primary Acetabular labrum tear, right, initial encounter documented in this encounter [facility] note* Diagnosis Pre-operative examination- Primary Preoperative examination, unspecified Internal hemorrhoids Internal hemorrhoids without mention of complication WPW (Mpuev-Rsfwkpipb-Brjgv syndrome) Anomalous atrioventricular excitation Paroxysmal supraventricular tachycardia (HCC) Paroxysmal supraventricular tachycardia Palpitations Chronic insomnia Insomnia, unspecified Chronic migraine without aura, with intractable migraine, so stated, with status migrainosus Mild intermittent asthma, unspecified whether complicated Gastro-esophageal reflux disease without esophagitis Esophageal reflux Attention deficit disorder, unspecified hyperactivity presence Anxiety disorder, unspecified type Pre-operative examination- Primary Preoperative examination, unspecified WPW (Vepzl-Sikbapect-Tnvqc syndrome) Anomalous atrioventricular excitation Gastro-esophageal reflux disease without esophagitis Esophageal reflux Palpitations Anxiety disorder, unspecified type Mild intermittent asthma, unspecified whether complicated Chronic insomnia Insomnia, unspecified History of fusion of cervical spine Arthrodesis status Internal hemorrhoids Internal hemorrhoids without mention of complication Irritable bowel syndrome with diarrhea Irritable bowel syndrome Pain in left hip Pain in joint, pelvic region and thigh [facility] Diagnosis Pre-operative examination- Primary Preoperative examination, unspecified Internal hemorrhoids Internal hemorrhoids without mention of complication WPW (Qtvgs-Lxinsgyyn-Odqyf syndrome) Anomalous atrioventricular excitation Paroxysmal supraventricular tachycardia (HCC) Paroxysmal supraventricular tachycardia Palpitations Chronic insomnia Insomnia, unspecified Chronic migraine without aura, with intractable migraine, so stated, with status migrainosus Mild intermittent asthma, unspecified whether complicated Gastro-esophageal reflux disease without esophagitis Esophageal reflux Attention deficit disorder, unspecified hyperactivity presence Anxiety disorder, unspecified type Pre-operative examination- Primary Preoperative examination, unspecified WPW (Ielns-Btutqughp-Vvuos syndrome) Anomalous atrioventricular excitation Gastro-esophageal reflux disease without esophagitis Esophageal reflux Palpitations Anxiety disorder, unspecified type Mild intermittent asthma, unspecified whether complicated Chronic insomnia Insomnia, unspecified History of fusion of cervical spine Arthrodesis status Internal hemorrhoids Internal hemorrhoids without mention of complication Irritable bowel syndrome with diarrhea Irritable bowel syndrome Tear of right acetabular labrum, initial encounter documented in this encounter [facility] note* Diagnosis Pain of right hip- Primary documented in this encounter [facility] note* Diagnosis Pre-operative examination- Primary Preoperative examination, unspecified Internal hemorrhoids Internal hemorrhoids without mention of complication WPW (Sahvk-Ignwcejko-Eittl syndrome) Anomalous atrioventricular excitation Paroxysmal supraventricular tachycardia (HCC) Paroxysmal supraventricular tachycardia Palpitations Chronic insomnia Insomnia, unspecified Chronic migraine without aura, with intractable migraine, so stated, with status migrainosus Mild intermittent asthma, unspecified whether complicated Gastro-esophageal reflux disease without esophagitis Esophageal reflux Attention deficit disorder, unspecified hyperactivity presence Anxiety disorder, unspecified type Pre-operative examination- Primary Preoperative examination, unspecified WPW (Ayqpz-Ojwopwhbm-Qfdia syndrome) Anomalous atrioventricular excitation Gastro-esophageal reflux disease without esophagitis Esophageal reflux Palpitations Anxiety disorder, unspecified type Mild intermittent asthma, unspecified whether complicated Chronic insomnia Insomnia, unspecified History of fusion of cervical spine Arthrodesis status Internal hemorrhoids Internal hemorrhoids without mention of complication Irritable bowel syndrome with diarrhea Irritable bowel syndrome Tear of right acetabular labrum, initial encounter documented in this encounter [facility] note* Diagnosis Pre-operative examination- Primary Preoperative examination, unspecified Internal hemorrhoids Internal hemorrhoids without mention of complication WPW (Littg-Uoxdpkren-Ajsdi syndrome) Anomalous atrioventricular excitation Paroxysmal supraventricular tachycardia (HCC) Paroxysmal supraventricular tachycardia Palpitations Chronic insomnia Insomnia, unspecified Chronic migraine without aura, with intractable migraine, so stated, with status migrainosus Mild intermittent asthma, unspecified whether complicated Gastro-esophageal reflux disease without esophagitis Esophageal reflux Attention deficit disorder, unspecified hyperactivity presence Anxiety disorder, unspecified type Pre-operative examination- Primary Preoperative examination, unspecified WPW (Oochw-Hqpquygis-Gkfid syndrome) Anomalous atrioventricular excitation Gastro-esophageal reflux disease without esophagitis Esophageal reflux Palpitations Anxiety disorder, unspecified type Mild intermittent asthma, unspecified whether complicated Chronic insomnia Insomnia, unspecified History of fusion of cervical spine Arthrodesis status Internal hemorrhoids Internal hemorrhoids without mention of complication Irritable bowel syndrome with diarrhea Irritable bowel syndrome Pain of left hip [facility] Diagnosis Pre-operative examination- Primary Preoperative examination, unspecified Internal hemorrhoids Internal hemorrhoids without mention of complication WPW (Wvtjc-Zsrqrdlqe-Fkdsc syndrome) Anomalous atrioventricular excitation Paroxysmal supraventricular tachycardia (HCC) Paroxysmal supraventricular tachycardia Palpitations Chronic insomnia Insomnia, unspecified Chronic migraine without aura, with intractable migraine, so stated, with status migrainosus Mild intermittent asthma, unspecified whether complicated Gastro-esophageal reflux disease without esophagitis Esophageal reflux Attention deficit disorder, unspecified hyperactivity presence Anxiety disorder, unspecified type Pre-operative examination- Primary Preoperative examination, unspecified WPW (Mbedi-Vfiuveiww-Hwhzp syndrome) Anomalous atrioventricular excitation Gastro-esophageal reflux disease without esophagitis Esophageal reflux Palpitations Anxiety disorder, unspecified type Mild intermittent asthma, unspecified whether complicated Chronic insomnia Insomnia, unspecified History of fusion of cervical spine Arthrodesis status Internal hemorrhoids Internal hemorrhoids without mention of complication Irritable bowel syndrome with diarrhea Irritable bowel syndrome Tear of left acetabular labrum, initial encounter- Primary Pain of left hip Pain of right hip Chronic migraine without aura, intractable, without status migrainosus- Primary [facility] Diagnosis Pre-operative examination- Primary Preoperative examination, unspecified Internal hemorrhoids Internal hemorrhoids without mention of complication WPW (Fkscq-Evvnyvuzd-Dqfwh syndrome) Anomalous atrioventricular excitation Paroxysmal supraventricular tachycardia (HCC) Paroxysmal supraventricular tachycardia Palpitations Chronic insomnia Insomnia, unspecified Chronic migraine without aura, with intractable migraine, so stated, with status migrainosus Mild intermittent asthma, unspecified whether complicated Gastro-esophageal reflux disease without esophagitis Esophageal reflux Attention deficit disorder, unspecified hyperactivity presence Anxiety disorder, unspecified type Pre-operative examination- Primary Preoperative examination, unspecified WPW (Sqvvo-Aacbhqyha-Xbhvr syndrome) Anomalous atrioventricular excitation Gastro-esophageal reflux disease without esophagitis Esophageal reflux Palpitations Anxiety disorder, unspecified type Mild intermittent asthma, unspecified whether complicated Chronic insomnia Insomnia, unspecified History of fusion of cervical spine Arthrodesis status Internal hemorrhoids Internal hemorrhoids without mention of complication Irritable bowel syndrome with diarrhea Irritable bowel syndrome Tear of left acetabular labrum, initial encounter- Primary Pain of left hip Tendinopathy of left gluteal region Chronic migraine without aura, intractable, without status migrainosus- Primary documented in this encounter [facility] note* Diagnosis Pre-operative examination- Primary Preoperative examination, unspecified Internal hemorrhoids Internal hemorrhoids without mention of complication WPW (Kyuwd-Qxjlvjxft-Ghtif syndrome) Anomalous atrioventricular excitation Paroxysmal supraventricular tachycardia (HCC) Paroxysmal supraventricular tachycardia Palpitations Chronic insomnia Insomnia, unspecified Chronic migraine without aura, with intractable migraine, so stated, with status migrainosus Mild intermittent asthma, unspecified whether complicated Gastro-esophageal reflux disease without esophagitis Esophageal reflux Attention deficit disorder, unspecified hyperactivity presence Anxiety disorder, unspecified type Pre-operative examination- Primary Preoperative examination, unspecified WPW (Ttiag-Vbxwfmvfc-Weumd syndrome) Anomalous atrioventricular excitation Gastro-esophageal reflux disease without esophagitis Esophageal reflux Palpitations Anxiety disorder, unspecified type Mild intermittent asthma, unspecified whether complicated Chronic insomnia Insomnia, unspecified History of fusion of cervical spine Arthrodesis status Internal hemorrhoids Internal hemorrhoids without mention of complication Irritable bowel syndrome with diarrhea Irritable bowel syndrome Chronic migraine without aura, intractable, without status migrainosus- Primary documented in this encounter [facility] note* Diagnosis Pre-operative examination- Primary Preoperative examination, unspecified Internal hemorrhoids Internal hemorrhoids without mention of complication WPW (Yazgs-Byeonlhyo-Orykj syndrome) Anomalous atrioventricular excitation Paroxysmal supraventricular tachycardia (HCC) Paroxysmal supraventricular tachycardia Palpitations Chronic insomnia Insomnia, unspecified Chronic migraine without aura, with intractable migraine, so stated, with status migrainosus Mild intermittent asthma, unspecified whether complicated Gastro-esophageal reflux disease without esophagitis Esophageal reflux Attention deficit disorder, unspecified hyperactivity presence Anxiety disorder, unspecified type Pre-operative examination- Primary Preoperative examination, unspecified WPW (Enzrb-Uqucpwqpd-Bjjmz syndrome) Anomalous atrioventricular excitation Gastro-esophageal reflux disease without esophagitis Esophageal reflux Palpitations Anxiety disorder, unspecified type Mild intermittent asthma, unspecified whether complicated Chronic insomnia Insomnia, unspecified History of fusion of cervical spine Arthrodesis status Internal hemorrhoids Internal hemorrhoids without mention of complication Irritable bowel syndrome with diarrhea Irritable bowel syndrome Anxiety- Primary Anxiety state, unspecified Screening for depression Tear of right acetabular labrum, initial encounter Encounter for immunization Need for other specified prophylactic vaccination against single bacterial disease Ecchymosis Other specified circulatory system disorders Iron deficiency anemia, unspecified iron deficiency anemia type Essential tremor Essential and other specified forms of tremor documented in this encounter [facility] note* Diagnosis Pre-operative examination- Primary Preoperative examination, unspecified Internal hemorrhoids Internal hemorrhoids without mention of complication 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 Paroxysmal supraventricular tachycardia (HCC) Paroxysmal supraventricular tachycardia Palpitations Chronic insomnia Insomnia, unspecified Chronic migraine without aura, with intractable migraine, so stated, with status migrainosus Mild intermittent asthma, unspecified whether complicated Gastro-esophageal reflux disease without esophagitis Esophageal reflux Attention deficit disorder, unspecified hyperactivity presence Anxiety disorder, unspecified type Pre-operative examination- Primary Preoperative examination, unspecified WPW (Baizh-Wwgpbuqza-Wgmmf syndrome) Anomalous atrioventricular excitation Gastro-esophageal reflux disease without esophagitis Esophageal reflux Palpitations Anxiety disorder, unspecified type Mild intermittent asthma, unspecified whether complicated Chronic insomnia Insomnia, unspecified History of fusion of cervical spine Arthrodesis status Internal hemorrhoids Internal hemorrhoids without mention of complication Irritable bowel syndrome with diarrhea Irritable bowel syndrome Tear of left acetabular labrum, initial encounter Pain of left hip Tendinopathy of left gluteal region documented in this encounter [facility] note* Diagnosis Pre-operative examination- Primary Preoperative examination, unspecified Internal hemorrhoids Internal hemorrhoids without mention of complication WPW (Ixxit-Gqlttbdoe-Vzeic syndrome) Anomalous atrioventricular excitation Paroxysmal supraventricular tachycardia (HCC) Paroxysmal supraventricular tachycardia Palpitations Chronic insomnia Insomnia, unspecified Chronic migraine without aura, with intractable migraine, so stated, with status migrainosus Mild intermittent asthma, unspecified whether complicated Gastro-esophageal reflux disease without esophagitis Esophageal reflux Attention deficit disorder, unspecified hyperactivity presence Anxiety disorder, unspecified type Pre-operative examination- Primary Preoperative examination, unspecified WPW (Ygcdn-Njhkbpkwl-Rorwy syndrome) Anomalous atrioventricular excitation Gastro-esophageal reflux disease without esophagitis Esophageal reflux Palpitations Anxiety disorder, unspecified type Mild intermittent asthma, unspecified whether complicated Chronic insomnia Insomnia, unspecified History of fusion of cervical spine Arthrodesis status Internal hemorrhoids Internal hemorrhoids without mention of complication Irritable bowel syndrome with diarrhea Irritable bowel syndrome Tear of right acetabular labrum, initial encounter documented in this encounter [facility] note* Diagnosis Pre-operative examination- Primary Preoperative examination, unspecified Internal hemorrhoids Internal hemorrhoids without mention of complication WPW (Gekjt-Qbhpjawzi-Tqith syndrome) Anomalous atrioventricular excitation Paroxysmal supraventricular tachycardia (HCC) Paroxysmal supraventricular tachycardia Palpitations Chronic insomnia Insomnia, unspecified Chronic migraine without aura, with intractable migraine, so stated, with status migrainosus Mild intermittent asthma, unspecified whether complicated Gastro-esophageal reflux disease without esophagitis Esophageal reflux Attention deficit disorder, unspecified hyperactivity presence Anxiety disorder, unspecified type Pre-operative examination- Primary Preoperative examination, unspecified WPW (Jnfbu-Rtrmmtbwt-Lmbjt syndrome) Anomalous atrioventricular excitation Gastro-esophageal reflux disease without esophagitis Esophageal reflux Palpitations Anxiety disorder, unspecified type Mild intermittent asthma, unspecified whether complicated Chronic insomnia Insomnia, unspecified History of fusion of cervical spine Arthrodesis status Internal hemorrhoids Internal hemorrhoids without mention of complication Irritable bowel syndrome with diarrhea Irritable bowel syndrome Tear of right acetabular labrum, initial encounter documented in this encounter [facility] note* Diagnosis Pre-operative examination- Primary Preoperative examination, unspecified Internal hemorrhoids Internal hemorrhoids without mention of complication WPW (Gechy-Pnzhifdoj-Cmolq syndrome) Anomalous atrioventricular excitation Paroxysmal supraventricular tachycardia (HCC) Paroxysmal supraventricular tachycardia Palpitations Chronic insomnia Insomnia, unspecified Chronic migraine without aura, with intractable migraine, so stated, with status migrainosus Mild intermittent asthma, unspecified whether complicated Gastro-esophageal reflux disease without esophagitis Esophageal reflux Attention deficit disorder, unspecified hyperactivity presence Anxiety disorder, unspecified type Pre-operative examination- Primary Preoperative examination, unspecified WPW (Lpfrk-Jhcetpvpm-Xyomd syndrome) Anomalous atrioventricular excitation Gastro-esophageal reflux disease without esophagitis Esophageal reflux Palpitations Anxiety disorder, unspecified type Mild intermittent asthma, unspecified whether complicated Chronic insomnia Insomnia, unspecified History of fusion of cervical spine Arthrodesis status Internal hemorrhoids Internal hemorrhoids without mention of complication Irritable bowel syndrome with diarrhea Irritable bowel syndrome Tear of right acetabular labrum, initial encounter Chronic migraine without aura, intractable, without status migrainosus- Primary documented in this encounter [facility] note* Diagnosis Pre-operative examination- Primary Preoperative examination, unspecified Internal hemorrhoids Internal hemorrhoids without mention of complication WPW (Szgdg-Pzggjrdfk-Zttrz syndrome) Anomalous atrioventricular excitation Paroxysmal supraventricular tachycardia (HCC) Paroxysmal supraventricular tachycardia Palpitations Chronic insomnia Insomnia, unspecified Chronic migraine without aura, with intractable migraine, so stated, with status migrainosus Mild intermittent asthma, unspecified whether complicated Gastro-esophageal reflux disease without esophagitis Esophageal reflux Attention deficit disorder, unspecified hyperactivity presence Anxiety disorder, unspecified type Pre-operative examination- Primary Preoperative examination, unspecified WPW (Cwjuk-Spdbtjvsm-Guuet syndrome) Anomalous atrioventricular excitation Gastro-esophageal reflux disease without esophagitis Esophageal reflux Palpitations Anxiety disorder, unspecified type Mild intermittent asthma, unspecified whether complicated Chronic insomnia Insomnia, unspecified History of fusion of cervical spine Arthrodesis status Internal hemorrhoids Internal hemorrhoids without mention of complication Irritable bowel syndrome with diarrhea Irritable bowel syndrome Chronic migraine without aura, intractable, without status migrainosus- Primary documented in this encounter [facility] note* Diagnosis Pre-operative examination- Primary Preoperative examination, unspecified Internal hemorrhoids Internal hemorrhoids without mention of complication WPW (Xhwpc-Vivjujohr-Oxhrz syndrome) Anomalous atrioventricular excitation Paroxysmal supraventricular tachycardia (HCC) Paroxysmal supraventricular tachycardia Palpitations Chronic insomnia Insomnia, unspecified Chronic migraine without aura, with intractable migraine, so stated, with status migrainosus Mild intermittent asthma, unspecified whether complicated Gastro-esophageal reflux disease without esophagitis Esophageal reflux Attention deficit disorder, unspecified hyperactivity presence Anxiety disorder, unspecified type Pre-operative examination- Primary Preoperative examination, unspecified WPW (Vshtd-Fbojufmti-Bxjge syndrome) Anomalous atrioventricular excitation Gastro-esophageal reflux disease without esophagitis Esophageal reflux Palpitations Anxiety disorder, unspecified type Mild intermittent asthma, unspecified whether complicated Chronic insomnia Insomnia, unspecified History of fusion of cervical spine Arthrodesis status Internal hemorrhoids Internal hemorrhoids without mention of complication Irritable bowel syndrome with diarrhea Irritable bowel syndrome Chronic rhinitis- Primary Mild persistent asthma without complication Unspecified asthma PVC (premature ventricular contraction) Other premature beats Chronic sinusitis, unspecified location WPW (Gulpb-Wdacdtvvm-Qmvom syndrome) Anomalous atrioventricular excitation Vasomotor rhinitis Allergic rhinitis, cause unspecified Inducible laryngeal obstruction (ILO) Allergic contact dermatitis due to adhesives Contact dermatitis and other eczema due to other chemical products Hoarseness of voice Dysphonia Allergic conjunctivitis, bilateral Other chronic allergic conjunctivitis Daytime somnolence Hypersomnia, unspecified [facility] Diagnosis Pre-operative examination- Primary Preoperative examination, unspecified Internal hemorrhoids Internal hemorrhoids without mention of complication WPW (Jrmgx-Kmidjvphj-Lohlk syndrome) Anomalous atrioventricular excitation Paroxysmal supraventricular tachycardia (HCC) Paroxysmal supraventricular tachycardia Palpitations Chronic insomnia Insomnia, unspecified Chronic migraine without aura, with intractable migraine, so stated, with status migrainosus Mild intermittent asthma, unspecified whether complicated Gastro-esophageal reflux disease without esophagitis Esophageal reflux Attention deficit disorder, unspecified hyperactivity presence Anxiety disorder, unspecified type Pre-operative examination- Primary Preoperative examination, unspecified WPW (Zyzgg-Tmougdmhg-Eunjq syndrome) Anomalous atrioventricular excitation Gastro-esophageal reflux disease without esophagitis Esophageal reflux Palpitations Anxiety disorder, unspecified type Mild intermittent asthma, unspecified whether complicated Chronic insomnia Insomnia, unspecified History of fusion of cervical spine Arthrodesis status Internal hemorrhoids Internal hemorrhoids without mention of complication Irritable bowel syndrome with diarrhea Irritable bowel syndrome Tear of right acetabular labrum, initial encounter documented in this encounter [facility] note* Diagnosis Pre-operative examination- Primary Preoperative examination, unspecified Internal hemorrhoids Internal hemorrhoids without mention of complication WPW (Yjuzv-Jlfutgksy-Alqfr syndrome) Anomalous atrioventricular excitation Paroxysmal supraventricular tachycardia (HCC) Paroxysmal supraventricular tachycardia Palpitations Chronic insomnia Insomnia, unspecified Chronic migraine without aura, with intractable migraine, so stated, with status migrainosus Mild intermittent asthma, unspecified whether complicated Gastro-esophageal reflux disease without esophagitis Esophageal reflux Attention deficit disorder, unspecified hyperactivity presence Anxiety disorder, unspecified type Pre-operative examination- Primary Preoperative examination, unspecified WPW (Dboql-Vghfqdqed-Nwcig syndrome) Anomalous atrioventricular excitation Gastro-esophageal reflux disease without esophagitis Esophageal reflux Palpitations Anxiety disorder, unspecified type Mild intermittent asthma, unspecified whether complicated Chronic insomnia Insomnia, unspecified History of fusion of cervical spine Arthrodesis status Internal hemorrhoids Internal hemorrhoids without mention of complication Irritable bowel syndrome with diarrhea Irritable bowel syndrome Encounter for screening mammogram for breast cancer documented in this encounter [facility] note* Diagnosis Pre-operative examination- Primary Preoperative examination, unspecified Internal hemorrhoids Internal hemorrhoids without mention of complication WPW (Nakoc-Hagslvitc-Haber syndrome) Anomalous atrioventricular excitation Paroxysmal supraventricular tachycardia (HCC) Paroxysmal supraventricular tachycardia Palpitations Chronic insomnia Insomnia, unspecified Chronic migraine without aura, with intractable migraine, so stated, with status migrainosus Mild intermittent asthma, unspecified whether complicated Gastro-esophageal reflux disease without esophagitis Esophageal reflux Attention deficit disorder, unspecified hyperactivity presence Anxiety disorder, unspecified type Pre-operative examination- Primary Preoperative examination, unspecified WPW (Kneik-Ftrxopoot-Ieqij syndrome) Anomalous atrioventricular excitation Gastro-esophageal reflux disease without esophagitis Esophageal reflux Palpitations Anxiety disorder, unspecified type Mild intermittent asthma, unspecified whether complicated Chronic insomnia Insomnia, unspecified History of fusion of cervical spine Arthrodesis status Internal hemorrhoids Internal hemorrhoids without mention of complication Irritable bowel syndrome with diarrhea Irritable bowel syndrome Tear of right acetabular labrum, initial encounter documented in this encounter [facility] note* Diagnosis Pre-operative examination- Primary Preoperative examination, unspecified Internal hemorrhoids Internal hemorrhoids without mention of complication WPW (Zpfta-Gkdgvjyft-Ykwvc syndrome) Anomalous atrioventricular excitation Paroxysmal supraventricular tachycardia (HCC) Paroxysmal supraventricular tachycardia Palpitations Chronic insomnia Insomnia, unspecified Chronic migraine without aura, with intractable migraine, so stated, with status migrainosus Mild intermittent asthma, unspecified whether complicated (HCC) Gastro-esophageal reflux disease without esophagitis Esophageal reflux Attention deficit disorder, unspecified hyperactivity presence Anxiety disorder, unspecified type Pre-operative examination- Primary Preoperative examination, unspecified WPW (Ocnvb-Ptavpeojd-Harkr syndrome) Anomalous atrioventricular excitation Gastro-esophageal reflux disease without esophagitis Esophageal reflux Palpitations Anxiety disorder, unspecified type Mild intermittent asthma, unspecified whether complicated (HCC) Chronic insomnia Insomnia, unspecified History of fusion of cervical spine Arthrodesis status Internal hemorrhoids Internal hemorrhoids without mention of complication Irritable bowel syndrome with diarrhea Irritable bowel syndrome Tear of left acetabular labrum, subsequent encounter- Primary Chronic midline low back pain without sciatica Tendinopathy of left gluteal region documented in this encounter [facility] note* Diagnosis Pre-operative examination- Primary Preoperative examination, unspecified Internal hemorrhoids Internal hemorrhoids without mention of complication WPW (Aqrna-Lndtfvzxp-Uiwrc syndrome) Anomalous atrioventricular excitation Paroxysmal supraventricular tachycardia (HCC) Paroxysmal supraventricular tachycardia Palpitations Chronic insomnia Insomnia, unspecified Chronic migraine without aura, with intractable migraine, so stated, with status migrainosus Mild intermittent asthma, unspecified whether complicated (HCC) Gastro-esophageal reflux disease without esophagitis Esophageal reflux Attention deficit disorder, unspecified hyperactivity presence Anxiety disorder, unspecified type Pre-operative examination- Primary Preoperative examination, unspecified WPW (Zjpzk-Faudnuydv-Maeah syndrome) Anomalous atrioventricular excitation Gastro-esophageal reflux disease without esophagitis Esophageal reflux Palpitations Anxiety disorder, unspecified type Mild intermittent asthma, unspecified whether complicated (HCC) Chronic insomnia Insomnia, unspecified History of fusion of cervical spine Arthrodesis status Internal hemorrhoids Internal hemorrhoids without mention of complication Irritable bowel syndrome with diarrhea Irritable bowel syndrome Chronic migraine without aura, intractable, without status migrainosus- Primary documented in this encounter [facility] note* Diagnosis Pre-operative examination- Primary Preoperative examination, unspecified Internal hemorrhoids Internal hemorrhoids without mention of complication WPW (Kqpdj-Hfgdwdarz-Zwmsg syndrome) Anomalous atrioventricular excitation Paroxysmal supraventricular tachycardia (HCC) Paroxysmal supraventricular tachycardia Palpitations Chronic insomnia Insomnia, unspecified Chronic migraine without aura, with intractable migraine, so stated, with status migrainosus Mild intermittent asthma, unspecified whether complicated (HCC) Gastro-esophageal reflux disease without esophagitis Esophageal reflux Attention deficit disorder, unspecified hyperactivity presence Anxiety disorder, unspecified type Pre-operative examination- Primary Preoperative examination, unspecified WPW (Sjjac-Fklriqzxb-Mblet syndrome) Anomalous atrioventricular excitation Gastro-esophageal reflux disease without esophagitis Esophageal reflux Palpitations Anxiety disorder, unspecified type Mild intermittent asthma, unspecified whether complicated (HCC) Chronic insomnia Insomnia, unspecified History of fusion of cervical spine Arthrodesis status Internal hemorrhoids Internal hemorrhoids without mention of complication Irritable bowel syndrome with diarrhea Irritable bowel syndrome Tear of right acetabular labrum, initial encounter documented in this encounter [facility] note* Diagnosis Pre-operative examination- Primary Preoperative examination, unspecified Internal hemorrhoids Internal hemorrhoids without mention of complication WPW (Jagkh-Etfvagmwo-Cqsny syndrome) Anomalous atrioventricular excitation Paroxysmal supraventricular tachycardia (HCC) Paroxysmal supraventricular tachycardia Palpitations Chronic insomnia Insomnia, unspecified Chronic migraine without aura, with intractable migraine, so stated, with status migrainosus Mild intermittent asthma, unspecified whether complicated (HCC) Gastro-esophageal reflux disease without esophagitis Esophageal reflux Attention deficit disorder, unspecified hyperactivity presence Anxiety disorder, unspecified type Pre-operative examination- Primary Preoperative examination, unspecified WPW (Qtcvv-Jhlchpvrv-Hmapl syndrome) Anomalous atrioventricular excitation Gastro-esophageal reflux disease without esophagitis Esophageal reflux Palpitations Anxiety disorder, unspecified type Mild intermittent asthma, unspecified whether complicated (HCC) Chronic insomnia Insomnia, unspecified History of fusion of cervical spine Arthrodesis status Internal hemorrhoids Internal hemorrhoids without mention of complication Irritable bowel syndrome with diarrhea Irritable bowel syndrome Tear of right acetabular labrum, initial encounter documented in this encounter [facility] note* Diagnosis Pre-operative examination- Primary Preoperative examination, unspecified Internal hemorrhoids Internal hemorrhoids without mention of complication WPW (Lnmzo-Dycajzuwz-Cufel syndrome) Anomalous atrioventricular excitation Paroxysmal supraventricular tachycardia (HCC) Paroxysmal supraventricular tachycardia Palpitations Chronic insomnia Insomnia, unspecified Chronic migraine without aura, with intractable migraine, so stated, with status migrainosus Mild intermittent asthma, unspecified whether complicated (HCC) Gastro-esophageal reflux disease without esophagitis Esophageal reflux Attention deficit disorder, unspecified hyperactivity presence Anxiety disorder, unspecified type Pre-operative examination- Primary Preoperative examination, unspecified WPW (Cvpfu-Qsnmvhdsx-Bminl syndrome) Anomalous atrioventricular excitation Gastro-esophageal reflux disease without esophagitis Esophageal reflux Palpitations Anxiety disorder, unspecified type Mild intermittent asthma, unspecified whether complicated (HCC) Chronic insomnia Insomnia, unspecified History of fusion of cervical spine Arthrodesis status Internal hemorrhoids Internal hemorrhoids without mention of complication Irritable bowel syndrome with diarrhea Irritable bowel syndrome Tear of right acetabular labrum, initial encounter documented in this encounter [facility] note* Diagnosis Pre-operative examination- Primary Preoperative examination, unspecified Internal hemorrhoids Internal hemorrhoids without mention of complication WPW (Xrfdn-Flxxgzbpn-Mueoq syndrome) Anomalous atrioventricular excitation Paroxysmal supraventricular tachycardia (HCC) Paroxysmal supraventricular tachycardia Palpitations Chronic insomnia Insomnia, unspecified Chronic migraine without aura, with intractable migraine, so stated, with status migrainosus Mild intermittent asthma, unspecified whether complicated (HCC) Gastro-esophageal reflux disease without esophagitis Esophageal reflux Attention deficit disorder, unspecified hyperactivity presence Anxiety disorder, unspecified type Pre-operative examination- Primary Preoperative examination, unspecified WPW (Aaxjp-Rpjhsodhb-Wxdll syndrome) Anomalous atrioventricular excitation Gastro-esophageal reflux disease without esophagitis Esophageal reflux Palpitations Anxiety disorder, unspecified type Mild intermittent asthma, unspecified whether complicated (HCC) Chronic insomnia Insomnia, unspecified History of fusion of cervical spine Arthrodesis status Internal hemorrhoids Internal hemorrhoids without mention of complication Irritable bowel syndrome with diarrhea Irritable bowel syndrome Gastroesophageal reflux disease, unspecified whether esophagitis present documented in this encounter [facility] note* Diagnosis Pre-operative examination- Primary Preoperative examination, unspecified Internal hemorrhoids Internal hemorrhoids without mention of complication WPW (Xsiyc-Sazjphoie-Dhhvy syndrome) Anomalous atrioventricular excitation Paroxysmal supraventricular tachycardia (HCC) Paroxysmal supraventricular tachycardia Palpitations Chronic insomnia Insomnia, unspecified Chronic migraine without aura, with intractable migraine, so stated, with status migrainosus Mild intermittent asthma, unspecified whether complicated (HCC) Gastro-esophageal reflux disease without esophagitis Esophageal reflux Attention deficit disorder, unspecified hyperactivity presence Anxiety disorder, unspecified type Pre-operative examination- Primary Preoperative examination, unspecified WPW (Fnxxk-Njtvfngfi-Euxqq syndrome) Anomalous atrioventricular excitation Gastro-esophageal reflux disease without esophagitis Esophageal reflux Palpitations Anxiety disorder, unspecified type Mild intermittent asthma, unspecified whether complicated (HCC) Chronic insomnia Insomnia, unspecified History of fusion of cervical spine Arthrodesis status Internal hemorrhoids Internal hemorrhoids without mention of complication Irritable bowel syndrome with diarrhea Irritable bowel syndrome Tear of right acetabular labrum, initial encounter Chronic migraine without aura, intractable, without status migrainosus- Primary documented in this encounter [facility] note* Diagnosis Pre-operative examination- Primary Preoperative examination, unspecified Internal hemorrhoids Internal hemorrhoids without mention of complication WPW (Detsq-Ttaacuano-Htlba syndrome) Anomalous atrioventricular excitation Paroxysmal supraventricular tachycardia (HCC) Paroxysmal supraventricular tachycardia Palpitations Chronic insomnia Insomnia, unspecified Chronic migraine without aura, with intractable migraine, so stated, with status migrainosus Mild intermittent asthma, unspecified whether complicated (HCC) Gastro-esophageal reflux disease without esophagitis Esophageal reflux Attention deficit disorder, unspecified hyperactivity presence Anxiety disorder, unspecified type Pre-operative examination- Primary Preoperative examination, unspecified 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 Gastro-esophageal reflux disease without esophagitis Esophageal reflux Palpitations Anxiety disorder, unspecified type Mild intermittent asthma, unspecified whether complicated (HCC) Chronic insomnia Insomnia, unspecified History of fusion of cervical spine Arthrodesis status Internal hemorrhoids Internal hemorrhoids without mention of complication Irritable bowel syndrome with diarrhea Irritable bowel syndrome Chronic migraine without aura, intractable, without status migrainosus- Primary [facility] Pre-operative examination- Primary Preoperative examination, unspecified Internal hemorrhoids Internal hemorrhoids without mention of complication 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 Paroxysmal supraventricular tachycardia (HCC) Paroxysmal supraventricular tachycardia Palpitations Chronic insomnia Insomnia, unspecified Chronic migraine without aura, with intractable migraine, so stated, with status migrainosus Mild intermittent asthma, unspecified whether complicated (HCC) Gastro-esophageal reflux disease without esophagitis Esophageal reflux Attention deficit disorder, unspecified hyperactivity presence Anxiety disorder, unspecified type Pre-operative examination- Primary Preoperative examination, unspecified WPW (Udtep-Cpywwmxak-Tbays syndrome) Anomalous atrioventricular excitation Gastro-esophageal reflux disease without esophagitis Esophageal reflux Palpitations Anxiety disorder, unspecified type Mild intermittent asthma, unspecified whether complicated (HCC) Chronic insomnia Insomnia, unspecified History of fusion of cervical spine Arthrodesis status Internal hemorrhoids Internal hemorrhoids without mention of complication Irritable bowel syndrome with diarrhea Irritable bowel syndrome Gastroesophageal reflux disease, unspecified whether esophagitis present- Primary Mild persistent asthma without complication (HCC) Unspecified asthma Chronic rhinitis PVC (premature ventricular contraction) Other premature beats Chronic sinusitis, unspecified location WPW (Ryoow-Fpwuahdps-Djpox syndrome) Anomalous atrioventricular excitation Vasomotor rhinitis Allergic rhinitis, cause unspecified Inducible laryngeal obstruction (ILO) Allergic contact dermatitis due to adhesives Contact dermatitis and other eczema due to other chemical products Hoarseness of voice Dysphonia Allergic conjunctivitis, bilateral Other chronic allergic conjunctivitis [facility] Diagnosis Onset Date Resolution Status Admit Date Dysphagia acute May 07 9:37am Intermittent lower abdominal pain acute May 07, 2025 9:37am Irritable bowel syndrome wit h diarrhea acute May 07, 2025 9:37am Nausea acute May 07 9:37am Gastroesophageal reflux disease none active May 07, 2025 9:37am [facility] Work Phone: Evaluation note* Diagnosis Pre-operative examination- Primary Preoperative examination, unspecified Internal hemorrhoids Internal hemorrhoids without mention of complication WPW (Twsto-Xqqjgtsxu-Oamly syndrome) Anomalous atrioventricular excitation Paroxysmal supraventricular tachycardia (HCC) Paroxysmal supraventricular tachycardia Palpitations Chronic insomnia Insomnia, unspecified Chronic migraine without aura, with intractable migraine, so stated, with status migrainosus Mild intermittent asthma, unspecified whether complicated (HCC) Gastro-esophageal reflux disease without esophagitis Esophageal reflux Attention deficit disorder, unspecified hyperactivity presence Anxiety disorder, unspecified type Pre-operative examination- Primary Preoperative examination, unspecified WPW (Jsvrv-Cstvkhjbj-Bofhp syndrome) Anomalous atrioventricular excitation Gastro-esophageal reflux disease without esophagitis Esophageal reflux Palpitations Anxiety disorder, unspecified type Mild intermittent asthma, unspecified whether complicated (HCC) Chronic insomnia Insomnia, unspecified History of fusion of cervical spine Arthrodesis status Internal hemorrhoids Internal hemorrhoids without mention of complication Irritable bowel syndrome with diarrhea Irritable bowel syndrome Tear of right acetabular labrum, initial encounter documented in this encounter [facility] for referral (narrative)* Diagnostic Procedure Only (Routine) - Pending Review Specialty Diagnoses / Procedures Referred By Yoliac t Referred To Contact [facility] Diagnoses Encounter for screening mammogram for breast cancer Procedures JEROD SCREENING SCREENING MAMMOGRAPHY BI 2-VIEW BREAST INC Andrew Lee MD [address] [place] [address] [facility] [address] [place] [phone] Referral ID Status Reason Start Date Expiration Date Visits Requested Visits Authorized [id number] Pending Review Auto-Generat ed Referral 08/27/2023 1 1 [facility] for referral (narrative)* Diagnostic Procedure Only (Routine) - Authorized Specialty Diagnoses / Procedures Referred By Yoliac t Referred To Contact XR IMAGING Diagnoses Pain Procedures XR HIP BILATERAL 5V PEL/AP/LAT EACH HIP RADEX HIPS BILATERAL WITH PELVIS MINIMUM 5 VIEWS Monika Arnold PA-C [address] [place] [address] Xr Imaging Referral ID Status Reason Start Date Expiration Date Visits Requested Visits Authorized [id number] Authorized Auto-Generat ed Referral 12/28/2022 01/27/2024 1 1 [facility] for referral (narrative)* Diagnostic Procedure Only (Routine) - Pending Review Specialty Diagnoses / Procedures Referred By Yoliac t Referred To Contact US IMAGING Diagnoses Lateral pain of right hip Procedures US ASP/INJ HIP JT/BURSA RIGHT ARTHROCENTESIS ASPIR&/INJ MAJOR JT/BURSA W/US Bijan Albert PA-C [address] [place] [address] Us Imaging Referral ID Status Reason Start Date Expiration Date Visits Requested Visits Authorized [id number] Pending Review Auto-Generat ed Referral 03/04/2023 04/02/2024 1 1 * Diagnostic Procedure Only (Routine) - Pending Review Specialty Diagnoses / Procedures Referred By Contac t Referred To Contact US IMAGING Diagnoses Lateral pain of left hip Procedures US ASP/INJ HIP JT/BURSA LEFT ARTHROCENTESIS ASPIR&/INJ MAJOR JT/BURSA W/US Bijan Albert PA-C [address] [place] [address] Us Imaging Referral ID Status Reason Start Date Expiration Date Visits Requested Visits Authorized [id number] Pending Review Auto-Generat ed Referral 03/04/2023 04/02/2024 1 1 * Physical Therapy (Routine) - Pending Review Specialty Diagnoses / Procedures Referred By Contac t Referred To Contact [facility] Diagnoses Lateral pain of left hip Lateral pain of right hip Procedures CONSULT TO PHYSICAL THERAPY PHYSICAL THERAPY EVALUATION HIGH COMPLEX 45 MINS Bijan Albert PA-C [address] [place] [address] [facility] [place] [address] [place] [address] Referral ID Status Reason Start Date Expiration Date Visits Requested Visits Authorized [id number] Pending Review Auto-Generat ed Referral 03/04/2023 03/03/2024 1 1 [facility] for referral (narrative)* Diagnostic Procedure Only (Routine) - Pending Review Specialty Diagnoses / Procedures Referred By Soraya velasquez Referred To Contact [facility] Diagnoses Encounter for screening mammogram for breast cancer Procedures JEROD SCREENING SCREENING MAMMOGRAPHY BI 2-VIEW BREAST INC CAD Andrew Gonzalez MD [address] [place] [address] [facility] Imaging [address] [place] [address] Referral ID Status Reason Start Date Expiration Date Visits Requested Visits Authorized [id number] Pending Review Auto-Generat ed Referral 07/06/2023 08/04/2024 1 1 [facility] for referral (narrative)* Diagnostic Procedure Only (Routine) - Closed Specialty Diagnoses / Procedures Referred By Soraya velasquez Referred To Contact XR IMAGING Diagnoses Gastroesophageal reflux disease, unspecified whether esophagitis present Procedures XR MODIFIED BARIUM SWALLOW W SPEECH THERAPY RADIOLOGIC EXAM SWALLOW FUNCTION CONTRAST STUDY Deven Logan MD [address] [facility] [place] [address] [place] [address] Referral ID Status Reason Start Date Expiration Date V isits Requested Visits Authorized [id number] Closed Auto-Generate d Referral 12/12/2023 01/10/2025 1 1 [facility] for referral (narrative)* Diagnostic Procedure Only (Routine) - Authorized Specialty Diagnoses / Procedures Referred By Soraya velasquez Referred To Contact XR IMAGING Diagnoses Pain of right hip Procedures XR HIP GENERAL 3V PELV/AP/LAT RIGHT RADEX HIP UNILATERAL WITH PELVIS 2-[place] [address] [place] [address] [place] [address] Referral ID Status Reason Start Date Expiration Date Visits Requested Visits Authorized [id number] Authorized Auto-Generat ed Referral 02/21/2024 03/22/2025 1 1 [facility] for referral (narrative)* Outpatient Procedure (Routine) - Authorized Specialty Diagnoses / Procedures Referred By Soraya velasquez Referred To Contact [facility] Diagnoses Paroxysmal supraventricular tachycardia (HCC) WPW (Zbtms-Ngprbygsa-Erixp syndrome) Status post ablation of accessory bypass tract Sinus tachycardia PVC (premature ventricular contraction) Palpitations Procedures ECHO ECHO TTHRC R-T 2D W/WOM-MODE COMPL SPEC&COLR Albina Sen MD [address] [place] [address] [facility] [address] [place] [address] Referral ID Status Reason Start Date Expiration Date Visits Requested Visits Authorized [id number] Authorized Auto-Generat ed Referral 05/28/2024 07/26/2024 1 1 [facility] for referral (narrative)* Outpatient Procedure (Routine) - Closed Specialty Diagnoses / Procedures Referred By Soraya velasquez Referred To Contact [facility] Diagnoses Paroxysmal supraventricular tachycardia (HCC) WPW (Apime-Fompsdjcj-Bgrww syndrome) Status post ablation of accessory bypass tract Sinus tachycardia PVC (premature ventricular contraction) Palpitations Procedures ECHO ECHO TTHRC R-T 2D W/WOM-MODE COMPL SPEC&COLR Albina Sen MD [address] [place] [address] [facility] [address] [place] [address] Referral ID Status Reason Start Date Expiration Date V isits Requested Visits Authorized [id number] Closed Auto-Generate d Referral 05/28/2024 07/26/2024 1 1 [facility] for referral (narrative)* Diagnostic Procedure Only (Routine) - New Request Specialty Diagnoses / Procedures Referred By Soraya velasquez Referred To Contact XR IMAGING Diagnoses Pain Procedures XR HIP GENERAL 3V PELV/AP/LAT LEFT RADEX HIP UNILATERAL WITH PELVIS 2-3 VIEWS Rosa Goff PA-C [address] [facility] [address] [place] [address] [place] [address] Referral ID Status Reason Start Date Expiration Date Visits Requested Visits Authorized [id number] New Request Auto-Generat ed Referral 06/14/2024 07/14/2025 1 1 [facility] for referral (narrative)* Diagnostic Procedure Only (Routine) - Authorized Specialty Diagnoses / Procedures Referred By Contac t Referred To Contact XR IMAGING Diagnoses Pain in left hip Procedures XR HIP GENERAL 3V PELV/AP/LAT LEFT RADEX HIP UNILATERAL WITH PELVIS 2-3 VIEWS Rosa Goff PA-C [address] [facility] [address] [place] [id number] Xr Imaging [facility] Referral ID Status Reason Start Date Expiration Date Visits Requested Visits Authorized [id number] Authorized Auto-Generat ed Referral 06/19/2024 07/19/2025 1 1 [facility] for referral (narrative)* Diagnostic Procedure Only (Routine) - Closed Specialty Diagnoses / Procedures Referred By Contac t Referred To Contact US IMAGING Diagnoses Lateral pain of right hip Procedures US ASP/INJ HIP JT/BURSA RIGHT ARTHROCENTESIS ASPIR&/INJ MAJOR JT/BURSA W/US Bijan Albert PA-C [address] [address] Us Imaging [facility] Referral ID Status Reason Start Date Expiration Date V isits Requested Visits Authorized [id number] Closed Auto-Generate d Referral 03/04/2023 04/02/2024 1 1 * Diagnostic Procedure Only (Routine) - Closed Specialty Diagnoses / Procedures Referred By Contac t Referred To Contact US IMAGING Diagnoses Lateral pain of left hip Procedures US ASP/INJ HIP JT/BURSA LEFT ARTHROCENTESIS ASPIR&/INJ MAJOR JT/BURSA W/Bijan Martini PA-C [address] [address] Us Imaging [facility] Referral ID Status Reason Start Date Expiration Date V isits Requested Visits Authorized [id number] Closed Auto-Generate d Referral 03/04/2023 04/02/2024 1 1 [facility] for referral (narrative)* Diagnostic Procedure Only (Routine) - Closed Specialty Diagnoses / Procedures Referred By Contac t Referred To Contact XR IMAGING Diagnoses Pain Procedures XR HIP BILATERAL 5V PEL/AP/LAT EACH HIP RADEX HIPS BILATERAL WITH PELVIS MINIMUM 5 VIEWS Monika Arnold PA-C [address] [place] [address] Xr Imaging [place] [address] Referral ID Status Reason Start Date Expiration Date V isits Requested Visits Authorized [id number] Closed Auto-Generate d Referral 12/28/2022 01/27/2024 1 1 [facility] for referral (narrative)* Diagnostic Procedure Only (Routine) - Closed Specialty Diagnoses / Procedures Referred By Contac t Referred To Contact XR IMAGING Diagnoses Pain in left hip Procedures XR HIP GENERAL 3V PELV/AP/LAT LEFT RADEX HIP UNILATERAL WITH PELVIS 2-3 VIEWS Rosa Goff PA-C [address] [place] [id number] Xr Imaging [facility] Referral ID Status Reason Start Date Expiration Date V isits Requested Visits Authorized [id number] Closed Auto-Generate d Referral 06/19/2024 07/19/2025 1 1 [facility] for referral (narrative)* Medication Prior Authorization - Pending Review Specialty Diagnoses / Procedures Referred By Contac t Referred To Contact Sharron Hollis APRN.[facility] [address] [place] [address] Phone: tel: fax: Referral ID Status Reason Start Date Expiration Date V isits Requested Visits Authorized [id number] Pending Review 1 1 [facility] for referral (narrative)No reason for referral [facility] Medication Prior Authorization - Pending Review Specialty Diagnoses / Procedures Referred By Soraya velasquez Referred To Contact Sharron Hollis APRN.CNP [address] [place] [address] Phone: tel: fax: Referral ID Status Reason Start Date Expiration Date V isits Requested Visits Authorized [id number] Pending Review 1 1 [facility] for visit Narrative* Diagnostic Procedure Only (Routine) - Closed Specialty Diagnoses / Procedures Referred By Soraya velasquez Referred To Contact XR IMAGING Diagnoses Lateral pain of right hip Lateral pain of left hip Procedures XR HIP BILATERAL 5V PEL/AP/LAT EACH HIP RADEX HIPS BILATERAL WITH PELVIS MINIMUM 5 VIEWS Roque Wong PA-C [address] [address] Xr Imaging [place] [address] Referral ID Status Reason Start Date Expiration Date V isits Requested Visits Authorized [id number] Closed Auto-Generate d Referral 12/02/2023 12/31/2024 1 1 [facility] for visit Narrative* Diagnostic Procedure Only (Routine) - Closed Specialty Diagnoses / Procedures Referred By Yoliac t Referred To Contact XR IMAGING Diagnoses Gastroesophageal reflux disease, unspecified whether esophagitis present Procedures XR MODIFIED BARIUM SWALLOW W SPEECH THERAPY RADIOLOGIC EXAM SWALLOW FUNCTION CONTRAST STUDY Deven Logan MD [address] [place] [address] [place] [address] [place] [address] Referral ID Status Reason Start Date Expiration Date V isits Requested Visits Authorized [id number] Closed Auto-Generate d Referral 12/12/2023 01/10/2025 1 1 [facility] for visit Narrative* Outpatient Procedure (Routine) - Closed Specialty Diagnoses / Procedures Referred By Soraya t Referred To [facility] Diagnoses Paroxysmal supraventricular tachycardia (HCC) WPW (Bvhlc-Hgcdokibo-Slovp syndrome) Status post ablation of accessory bypass tract Sinus tachycardia PVC (premature ventricular contraction) Palpitations [facility] W/WOM-MODE COMPL SPEC&COLR D Albina Luong MD [address] [place] [address] [facility] [place] [address] [place] [address] Referral ID Status Reason Start Date Expiration Date V isits Requested Visits Authorized [id number] Closed Auto-Generate d Referral 05/28/2024 07/26/2024 1 1 [facility] for visit Narrative* Diagnostic Procedure Only (Routine) - Closed Specialty Diagnoses / Procedures Referred By Soraya velasquez Referred To Contact US IMAGING Diagnoses Lateral pain of left hip Procedures US ASP/INJ HIP JT/BURSA LEFT ARTHROCENTESIS ASPIR&/INJ MAJOR JT/BURSA W/US Bijan Albert PA-C [address] [address] [place] [address] Referral ID Status Reason Start Date Expiration Date V isits Requested Visits Authorized [id number] Closed Auto-Generate d Referral 03/04/2023 04/02/2024 1 1 [facility] for visit Narrative* Diagnostic Procedure Only (Routine) - Closed Specialty Diagnoses / Procedures Referred By Soraya velasquez Referred To Contact Radiology / [facility] Diagnoses xr chest rm 2 Procedures RADIOLOGIC EXAM CHEST 2 VIEWS XR CHEST Francheska Ambrocio PA-C [address] [place] [address] [facility] [address] [place] [address] Referral ID Status Reason Start Date Expiration Date Visits Re quested Visits Authorized [id number] Closed 10/06/2022 10/02/2023 1 1 [facility] Summary Purpose Family History Relationship Condition Age at Onset Recorded Date/T vera uncle Malignant neoplasm of brain Unknown Malignant neoplasm of lung Unknown grandfather Cardiac disease Unknown Malignant neoplasm of colon Unknown Advance Directives Documents on File Type Date Recorded Patient Mainspring Former Brace End Expl anation Advance Directive(s) 06/17/2021 11:52 AM Advance Directive(s) 05/16/2021 12:29 PM Advance Directive(s) 10/07/2020 9:03 AM Advance Directive(s) 09/29/2020 12:35 PM Advance Directive(s) 07/12/2019 4:52 PM Advance Directive(s) 11/15/2018 3:29 PM Advance Directive(s) 04/02/2018 9:07 PM Advance Directive(s) 03/28/2018 6:19 AM Advance Directive(s) 11/16/2017 10:27 AM Advance Directive(s) 11/17/2016 4:27 PM Advance Directive Response Recorded Date/ Time Advance Directives No May 30, 2014 1:29pm Living Will No May 21 1 3:38pm Power of [place] No May 21 021 3:38pm Advance Directive Response Recorded Date/ Time Advance Directives No May 30, 2014 12:29pm Living Will No May 21 1 2:38pm Power of [place] No May 21, 2 021 2:38pm Advance Directive Response Recorded Date/ Time Advance Directives No May 30, 2014 1:29pm Advance Directive Response Recorded Date/ Time Advance Directives No March 06 5 2:23pm Advance Directive Response Recorded Date/ Time Advance Directives No July 24, 2025 10:57am Chief Complaint Chief Complaint Description Start Date neck post ADR C4-6 on 09/14/2021 Preliminary chief co mplaint data, not yet signed by the author as of Medications Administered Section Inactive Administered Medications - up to 3 most recent administrations Medication Order MAR Action Action Date Dose Rate Site onabotulinum toxin type A 200 Units injection (BOTOX) 200 Units, OTHER, ONCE, 1 dose, On Tue04/16/22 at 1100, This record documents the total dose provided to patient. See progress note for specific locations and amounts administered. REFRIGERATE - Pharmaceutical Waste: Lab Pack - Given 04/16/2022 11:00 AM EDT 200 Units Inactive Administered Medications - up to 3 most recent administrations Medication Order MAR Action Action Date Dose Rate Site onabotulinum toxin type A 200 Units injection (BOTOX) 200 Units, OTHER, ONCE, 1 dose, On Tue07/13/22 at 1400, This record documents the total dose provided to patient. See progress note for specific locations and amounts administered. REFRIGERATE - Pharmaceutical Waste: Lab Pack - Given 07/13/2022 2:31 PM EDT 200 Units Inactive Administered Medications - up to 3 most recent administrations Medication Order MAR Action Action Date Dose Rate Site onabotulinum toxin type A 200 Units injection (BOTOX) 200 Units, OTHER, ONCE, 1 dose, On Tue01/11/23 at 1300, This record documents the total dose provided to patient. See progress note for specific locations and amounts administered. REFRIGERATE - Pharmaceutical Waste: Lab Pack - Given 01/11/2023 1:27 PM EDT 200 Units Inactive Administered Medications - up to 3 most recent administrations Medication Order MAR Action Action Date Dose Rate Site onabotulinum toxin type A 200 Units injection (BOTOX) 200 Units, INTRAMUSCULAR, ONCE, 1 dose, On Tue04/19/23 at 1300, This record documents the total dose provided to patient. See progress note for specific locations and amounts administered. Given 04/19/2023 1:08 PM EDT 200 Units Othe r Inactive Administered Medications - up to 3 most recent administrations Medication Order MAR Action Action Date Dose Rate Site onabotulinum toxin type A 200 Units injection (BOTOX) 200 Units, INTRAMUSCULAR, ONCE, 1 dose, On Tue07/19/23 at 1400, This record documents the total dose provided to patient. See progress note for specific locations and amounts administered. Given 07/19/2023 2:27 PM EDT 200 Units Othe r Health Concerns Infection Onset Date Last Indicated Resolved Time COVID-19 Rule-Out 10/06/2022 10/06/2022 10/07/2022 2:43 AM EST Reason for Referral Specialty Diagnoses / Procedures Referred By Contac t Referred To Contact Orthopedics Diagnoses Hip pain Procedures CONSULT TO ORTHOPAEDICS OFFICE/OUTPATIENT [facility] 60-74 MINUTES Andrew Gonzalez MD [address] [place] [address] Referral ID Status Reason Start Date Expiration Date Visits Requested Visits Authorized [id number] Authorized PCP Requested Referral 12/27/2022 12/27/2023 1 1 Specialty Diagnoses / Procedures Referred By Contac t Referred To Contact Cardiology Diagnoses Dizziness PVC's (premature ventricular contractions) Procedures CONSULT TO CARDIOLOGY OFFICE/OUTPATIENT [facility] 60-74 MINUTES James Harry DO [address] [place] [address] Referral ID Status Reason Start Date Expiration Date Visits Requested Visits Authorized [id number] Authorized PCP Requested Referral 06/01/2023 05/31/2024 1 1 Specialty Diagnoses / Procedures Referred By Contac t Referred To Contact [facility] Diagnoses Chronic cough Mild intermittent asthma, unspecified whether complicated Procedures SPIROMETRY - BASELINE AND POST DILATOR BRNCDILAT RSPSE SPMTRY PRE&POST-BRNCDILAT ADMN James Harry DO [address] [place] [address] [facility] [place] [address] [place] [address] Referral ID Status Reason Start Date Expiration Date Visits Requested Visits Authorized [id number] Pending Review Auto-Generat ed Referral 06/01/2023 06/30/2024 1 1 Specialty Diagnoses / Procedures Referred By Contac t Referred [facility] Contact [facility] Diagnoses Dizziness Procedures ECG COMPLETE ECG ROUTINE ECG W/LEAST 12 LDS W/I&R James Harry DO [address] [place] [address] [facility] [place] [address] [place] [address] Referral ID Status Reason Start Date Expiration Date Visits Requested Visits Authorized [id number] Pending Review Auto-Generat ed Referral 06/01/2023 05/31/2024 1 1 Specialty Diagnoses / Procedures Referred By Contac t Referred To Contact Orthopedics Diagnoses Bilateral hip pain Procedures CONSULT TO ORTHOPAEDICS OFFICE/OUTPATIENT [facility] 60 MINUTES James Harry DO [address] [place] [address] Referral ID Status Reason Start Date Expiration Date Visits Requested Visits Authorized [id number] Authorized PCP Requested Referral 11/29/2023 11/28/2024 1 1 Specialty Diagnoses / Procedures Referred By Soraya t Referred To Contact [facility] Diagnoses Encounter for screening mammogram for malignant neoplasm of breast Procedures JEROD SCREENING SCREENING MAMMOGRAPHY BI 2-VIEW BREAST INC James June, [address] [place] [address] [facility] Imaging [address] [place] [address] Referral ID Status Reason Start Date Expiration Date Visits Requested Visits Authorized [id number] Pending Review Auto-Generat ed Referral 11/29/2023 12/28/2024 1 1 Specialty Diagnoses / Procedures Referred By Soraya t Referred To Contact MR IMAGING Diagnoses Pain of right hip Procedures MRI HIP WO IVCON RIGHT MRI ANY JT LOWER EXTREM W/O CONTRAST Mahendra Farris MD [facility] [place] [address] [place] [address] Referral ID Status Reason Start Date Expiration Date Visits Requested Visits Authorized [id number] Additional Clinical Info Needed Auto-Generat ed Referral 12/09/2023 01/07/2025 1 1 Referral ID Status Reason Start Date Expiration Date V isits Requested Visits Authorized [id number] Closed Auto-Generate d Referral 12/13/2023 02/10/2024 1 1 Specialty Diagnoses / Procedures Referred By Soraya t Referred To Contact [facility] Diagnoses Pain of left hip Acetabular labrum tear, right, initial encounter Procedures CONSULT TO PHYSICAL THERAPY PHYSICAL THERAPY EVALUATION HIGH COMPLEX 45 MINS Rosa Goff PA-C [address] [facility] [address] [place] [address] [facility] [place] [address] [place] [address] Referral ID Status Reason Start Date Expiration Date Visits Requested Visits Authorized [id number] Pending Review Auto-Generat ed Referral 06/25/2024 06/25/2025 1 1 Specialty Diagnoses / Procedures Referred By Contac t Referred To Contact MR IMAGING Diagnoses Pain of left hip Procedures MRI HIP WO IVCON LEFT MRI ANY JT LOWER EXTREM W/O CONTRAST MATRL Rosa Goff PA-C [address] [facility] [place] [id number] Mr [facility] [place] [address] Referral ID Status Reason Start Date Expiration Date Visits Requested Visits Authorized [id number] Additional Clinical Info Needed Auto-Generat ed Referral 06/25/2024 07/25/2025 1 1 Referral ID Status Reason Start Date Expiration Date V isits Requested Visits Authorized [id number] Closed Auto-Generate d Referral 06/26/2024 08/24/2024 1 1 Specialty Diagnoses / Procedures Referred By Contac t Referred To Contact [facility] Diagnoses Tear of left acetabular labrum, initial encounter Pain of left hip Tendinopathy of left gluteal region Procedures CONSULT TO PHYSICAL THERAPY PHYSICAL THERAPY EVALUATION HIGH COMPLEX 45 MINS Rosa Goff PA-C [address] [facility] [address] [facility] [place] [address] [place] [address] Referral ID Status Reason Start Date Expiration Date Visits Requested Visits Authorized [id number] Authorized Auto-Generat ed Referral 03/03/2024 10/02/2024 30 30 Specialty Diagnoses / Procedures Referred By Contac t Referred To Contact Diagnoses Tear of right acetabular labrum, initial encounter James Harry DO [address] [place] [address] Referral ID Status Reason Start Date Expiration Date V isits Requested Visits Authorized [id number] Pending Review 1 1 Referral ID Status Reason Start Date Expiration Date V isits Requested Visits Authorized [id number] Pending Review 1 1 Specialty Diagnoses / Procedures Referred By Contac t Referred To Contact Diagnoses Daytime somnolence Procedures CONSULT TO SLEEP MEDICINE - ADULT Deven Logan MD [address] [place] [address] [place] [address] Brennan Langley MD [address] [place] [address] Referral ID Status Reason Start Date Expiration Date Visits Requested Visits Authorized [id number] Authorized PCP Requested Referral 10/30/2024 10/30/2025 3 3 Chief Complaint and Reason for Visit Chief Complaint SCREENING Chief Complaint Annual (SPRING INTERN), menopa use questions Reason for Visit Dyspareunia [id number] Chief Complaint VAGINAL DISCHARGE/PA IN DURING INTERCOURSE Reason for Visit Dyspareunia Levator spasm Recurrent candidiasis of vagina Chief Complaint Admit Date POST JANICE November 01, 2024 3 :49pm DRY EYE November 22, 2024 11:58am Gastroesophageal reflux disease (GERD) 2024 12:54pm E-ORDER January 10, 2025 3:0 5pm Reason for Visit Admit Date Dysphagia December 21, 2024 12: 54pm Irritable bowel syndrome with diarrhea 2024 12:54pm Gastroesophageal reflux disease December 212024 12:54pm Chief Complaint Admit Date DRY EYE November 22, 2024 11:58am Gastroesophageal reflux disease (GERD) 2024 12:54pm E-ORDER January 10, 2025 3:0 5pm INT ORDER January 17, 2025 3:4 7pm XRAY March 06, 2025 2:23p m Chief Complaint Admit Date E-ORDER January 10, 2025 3:0 5pm INT ORDER January 17, 2025 3:4 7pm XRAY March 06, 2025 2:23p m Gastroesophageal reflux disease (GERD) A ugust 2024 9:37am Reason for Visit Admit Date Dysphagia May 07, 2025 9:3 7am Intermittent lower abdominal pain May 07, 2025 9:37am Irritable bowel syndrome with diarrhea A ugust 2024 9:37am Nausea May 07, 2025 9:3 7am Gastroesophageal reflux disease May 072024 9:37am Chief Complaint Admit Date INT ORDER January 17, 2025 3:4 7pm XRAY March 06, 2025 2:23p m Gastroesophageal reflux disease (GERD) A ugust 2024 9:37am Dry eye syndrome of bilateral lacrimal g lands May 09, 2025 10:37am Reason for Visit Admit Date Intermittent lower abdominal pain May 07, 2025 9:37am Irritable bowel syndrome with diarrhea A ugust 2024 9:37am Nausea May 07, 2025 9:3 7am Dysphagia May 07, 2025 9:3 7am Gastroesophageal reflux disease May 072024 9:37am Chief Complaint Admit Date XRAY March 06, 2025 2:23p m Gastroesophageal reflux disease (GERD) A ugust 2024 9:37am Dry eye syndrome of bilateral lacrimal g lands May 09, 2025 10:37am DYSPHAGIA May 21, 2025 12 :18pm Chief Complaint Admit Date XRAY March 06, 2025 2:23p m Gastroesophageal reflux disease (GERD) A ugust 2024 9:37am Dry eye syndrome of bilateral lacrimal g lands May 09, 2025 10:37am DYSPHAGIA May 21, 2025 12 :18pm Test Result June 27, 2025 1:19pm Reason for Visit Admit Date Intermittent lower abdominal pain May 07, 2025 9:37am Irritable bowel syndrome with diarrhea A ust 2024 9:37am Nausea May 07, 2025 9:3 7am Dysphagia May 07, 2025 9:3 7am Gastroesophageal reflux disease May 072024 9:37am Irritable bowel syndrome with diarrhea S eptemb2024 1:19pm Nausea June 27, 2025 1:19pm Dysphagia June 27, 2025 1:19pm Chief Complaint Admit Date Gastroesophageal reflux disease (GERD) A ugust 2024 9:37am Dry eye syndrome of bilateral lacrimal g lands May 09, 2025 10:37am DYSPHAGIA May 21, 2025 12 :18pm Test Result June 27, 2025 1:19pm XRAY July 24, 2025 1 1:58am SCREENING,Abnormal weight loss August 13, 2025 2:49pm Additional Source Comments INFORMATION SOURCE (unrecogn ized section and content) DATE CREATED AUTHOR 09/27/2018 [facility] DATE CREATED AUTHOR AUTHOR'S ORGANIZ ATION 07/10/2019 [facility] DATE CREATED AUTHOR AUTHOR'S ORGANIZ ATION 02/06/2024 [facility] DATE CREATED AUTHOR AUTHOR'S ORGANIZ ATION 07/08/2025 [facility] DATE CREATED AUTHOR AUTHOR'S ORGANIZ ATION 07/20/2025 [facility] DATE CREATED AUTHOR AUTHOR'S ORGANIZ ATION 08/15/2025 [facility] Reason for Visit (unrecogniz ed section and content) Reason Comments Botox Injection Specialty Diagnoses / Procedures Referred By Contac t Referred To Contact HEADACHE Diagnoses Chronic migraine without aura, intractable, without status migrainosus botox renewal due now for DOS 10/27-NEW INSURANCE-anthem Botox 200 units every 12 weeks for 1 year through [facility] buy and bill Preempt protocol [id number] Procedure -53500 chemodervate facial/trigem/cerv musc migraine Procedures BOTULINUM TOXIN A PER 1 UNIT CHEMODERVATE FACIAL/TRIGEM/CERV MUSC MIGRAINE Lamont Michel, DO [address] [place] [address] Phone: tel: fax: Neurology [address] [place] [address] Phone: tel: fax: Referral ID Status Reason Start Date Expiration Date V isits Requested Visits Authorized [id number] Authorized 10/08/2023 09/11/2025 9 9 Reason Comments Neurotoxin Injection Specialty Diagnoses / Procedures Referred By Contac t Referred To Contact HEADACHE Diagnoses Chronic migraine without aura, intractable, without status migrainosus botox renewal due now for DOS 10/27-NEW INSURANCE-anthem Botox 200 units every 12 weeks for 1 year through [facility] buy and bill Preempt protocol [id number] Procedure -05496 chemodervate facial/trigem/cerv musc migraine Procedures BOTULINUM TOXIN A PER 1 UNIT CHEMODERVATE FACIAL/TRIGEM/CERV MUSC MIGRAINE Lamont Michel, DO [address] [place] [address] Neur Headache Main S[address] [place] [id number] Referral ID Status Reason Start Date Expiration Date V isits Requested Visits Authorized [id number] Authorized 10/08/2023 10/09/2025 99 99 Specialty Diagnoses / Procedures Referred By Contac t Referred To Contact Neurology / HEADACHE Diagnoses Chronic migraine without aura, intractable, without status migrainosus botox renewal due 03/13/23 Botox 200 units every 12 weeks for 1 year through [facility] Preempt protocol [id number] Procedure -54953 chemodervate facial/trigem/cerv musc migraine Procedures BOTULINUM TOXIN A PER 1 UNIT CHEMODERVATE FACIAL/TRIGEM/CERV MUSC MIGRAINE BOTULINUM TOXIN Sharron Hollis, KNUCKLE STRAP SEWER.[employer]BE[employer]OS MICROSCOPIST [address] [place] [address] Sharron Hollis, KNUCKLE STRAP SEWER.[employer]BE[employer]OS MICROSCOPIST [address] [place] [address] Referral ID Status Reason Start Date Expiration Date Visits Requested Visits Authorized [id number] Authorized Patient Cleared - Admin/Chairm an/Director advise to proceed or did not respond 03/13/2023 04/14/2024 5 5 Reason Comments Follow Up Referral ID Status Reason Start Date Expiration Date Visits Requested Visits Authorized [id number] Waiting for Response Patient Cleared - Admin/Chair man/Directo r advise to proceed or did not respond 03/13/2023 03/13/2024 5 5 Specialty Diagnoses / Procedures Referred By Contac t Referred To Contact HEADACHE Diagnoses Chronic migraine without aura, intractable, without status migrainosus Procedures BOTULINUM TOXIN A PER 1 UNIT CHEMODERVATE FACIAL/TRIGEM/CERV MUSC MIGRAINE renewal due 12/15/21 Botox 200 units every 12 weeks for 1 year through [facility] facial/trigem/cerv musc migraine Agnieszka Monsalve, KNUCKLE STRAP SEWER.[employer]BE[employer]OS MICROSCOPIST [address] [place] [address] Neur Headache Main [address] [place] [address] Referral ID Status Reason Start Date Expiration Date V isits Requested Visits Authorized [id number] Closed Patient Cleared - Admin/Chairm an/Director advise to proceed 01/15/2022 01/14/2023 5 5 Referral ID Status Reason Start Date Expiration Date Visits Requested Visits Authorized [id number] Authorized Patient Cleared - Admin/Chairm an/Director advise to proceed 01/15/2022 01/14/2023 5 5 Reason For Visit Description Start Date Postop - subsequent visit Preliminary reason f or visit data, not yet signed by the author as of neck post ADR C4-6 on 09/14/2021 Reason Comments New Patient neck pain Reason Comments Scheduling Reason Onset Date Comments Refill Request 03/02/2022 Reason Comments Anxiety Specialty Diagnoses / Procedures Referred By Contac t Referred To Contact Family Practice / FAMILY MEDICINE Diagnoses Medicine and blood work Procedures VIDEO PRIMARY EST MD Carlos Finley, Andrew Martinez MD [address] [place] [address] Referral ID Status Reason Start Date Expiration Date Visits Re quested Visits Authorized [id number] Closed 04/13/2022 10/02/2022 1 1 Reason Onset Date Comments Refill Request 04/14/2022 Reason Comments Refill Request bentyl Reason Comments Refill Request Zofran Reason Onset Date Comments Refill Request 06/03/2022 Reason Onset Date Comments Refill Request 2022 protonix/bentyl Reason Onset Date Comments Refill Request 2022 Reason Comments Consult Specialty Diagnoses / Procedures Referred By Contact Referred To Contact Anesthesiology / ANESTHESIOLOGY Diagnoses Patient refused virtual visit LIGATION OF INTERNAL HEMORRHOIDS 2 OR MORE COLUMNS/GROUPS VIA MULTIPLE SUTURE LIGATION W/O IMAGE GUIDANCE [78690] - Anus - N/A Doppler guided hem artery ligation Procedures COMPLETE [facility] Dulce Hoover MD [address] [address], [facility] Edward [address] [place] [address] Referral ID Status Reason Start Date Expiration Date V isits Requested Visits Authorized [id number] Closed OON/Self Pay Override 09/01/2022 10/02/2022 1 1 Reason Comments Refill Request Reason Comments Cough Fever, sore throat, body aches x 4 days Specialty Diagnoses / Procedures Referred By Contac t Referred To Contact [facility] / [facility] Diagnoses fever 100.5, sneezing, cough, body aches, sore throat Procedures EST SAME DAY Self [facility] [address] [place] [address] Referral ID Status Reason Start Date Expiration Date Visits Re quested Visits Authorized [id number] Closed 10/06/2022 10/02/2023 1 1 Reason Comments Results Reason Comments Patient Update Reason Comments CARD Follow Up Annual YEARLY CHECK UP FO R PSVT Specialty Diagnoses / Procedures Referred By Contac t Referred To Contact CARDIOLOGY Diagnoses Encounter for general adult medical examination without abnormal findings Procedures OFFICE/OUTPATIENT ESTABLISHED MOD MDM 30-39 MIN Albina Luong MD [address] [place] [address] [place] [phone] Card [facility] [place] [facility] [address] [place] [address] Referral ID Status Reason Start Date Expiration Date V isits Requested Visits Authorized [id number] Closed OON/Self Pay Override 10/03/2022 10/02/2023 1 1 Reason Comments Appointment Reason Comments Follow Up Specialty Diagnoses / Procedures Referred By Contac t Referred To Contact Family Medicine / FAMILY MEDICINE Diagnoses Medication refills Procedures PHYS/QHP TELEPHONE EVALUATION 5-10 MIN VIDEO PRIMARY EST Andrew Gonzalez MD [address] [place] [address] Andrew Gonzalez MD [address] [place] [address] Referral ID Status Reason Start Date Expiration Date Visits Re quested Visits Authorized [id number] Closed 12/27/2022 10/02/2023 1 1 Reason Comments Insurance Authorization [employer] (RENEWAL ) Reason Comments Referral Request Reason Comments Insurance Authorization NURTE Reason Comments Irritable Bowel Syndrome Specialty Diagnoses / Procedures Referred By Contact Referred To Contact Gastroenterology / GASTROENTEROLOGY Diagnoses refills Procedures EST [place] [address] [place] [address] Referral ID Status Reason Start Date Expiration Date Visits Re quested Visits Authorized [id number] Closed 11/12/2022 10/02/2023 1 1 Specialty Diagnoses / Procedures Referred By Contac t Referred To Contact Orthopedics / ORTHOPAEDIC SURGERY Diagnoses Hip pain bi hip pain Procedures OFFICE/OUTPATIENT NEW MODERATE MDM 45-59 MINUTES MAHNAZ NEW ORTH/SPORTS Self Bijan Albert PA-C [address] [place] [address] Referral ID Status Reason Start Date Expiration Date Visits Re quested Visits Authorized [id number] Closed 03/04/2023 10/02/2023 1 1 Reason Comments Dizziness Headaches Specialty Diagnoses / Procedures Referred By Contac t Referred To Contact Family Medicine / FAMILY MEDICINE Diagnoses Dizzy Dizzy Procedures OFFICE/OUTPATIENT ESTABLISHED MOD MDM 30-39 MIN 4C EST Self James Harry DO [address] [place] [address] Referral ID Status Reason Start Date Expiration Date V isits Requested Visits Authorized [id number] Closed Patient Cleared - Admin/Chairm an/Director advise to proceed or did not respond 06/01/2023 10/02/2023 1 1 Reason Onset Date Comments Results 06/09/2023 Reason Comments Spirometry Specialty Diagnoses / Procedures Referred By Contac t Referred To Contact [facility] Diagnoses Chronic cough Mild intermittent asthma, unspecified whether complicated Procedures SPIROMETRY - BASELINE AND POST DILATOR BRNCDILAT RSPSE SPMTRY PRE&POST-BRNCDILAT ADMN James Harry DO [address] [place] [address] Respiratory [place] [address] [place] [address] Referral ID Status Reason Start Date Expiration Date V isits Requested Visits Authorized [id number] Closed Auto-Generate d Referral 06/01/2023 06/30/2024 1 1 Reason Comments Radio Gen RMP Radiology Service Pr ogress NotePATIENT NAME: Marcial RoldanCherrie: [id number] OF SERVICE: June 01, 2023TIME: 10:36 AMPATIENT IDENTITY VERIFICATION COMPLETED USING TWO (2) IDENTIFIERS: Name and Date of confirmed by patient verbally.FALL SCREENING: Has the patient had 2 falls in the last year or 1 fall with injury or currently using an Ambulatory Assistive Device (Walker, Cane, Wheelchair, Crutches, etc.)? Inpatient: Screened on floorPATIENT GENDER DATA: Female. Specialty Diagnoses / Procedures Referred By Contac t Referred To Contact Radiology / RADIO GEN [facility] Diagnoses Dizziness PVC's (premature ventricular contractions) Dizziness [R42] PVC's (premature ventricular contractions) [I49.3] Procedures RADIOLOGIC EXAM CHEST 2 VIEWS XR CHEST Júnior HarryDO camila [address] [place] [address] Radio [facility] [address] [place] [address] Referral ID Status Reason Start Date Expiration Date V isits Requested Visits Authorized [id number] Closed Clearance Not Met -Financial Clearance Bypassed 06/01/2023 10/02/2023 1 1 Reason Onset Date Comments Refill Request 08/13/2023 Reason Comments Insurance Authorization [facility] Reason Comments Follow Up Anxiety Reason Comments Right Hip Pain Specialty Diagnoses / Procedures Referred By Contac t Referred To Contact Orthopedics Diagnoses Bilateral hip pain Procedures CONSULT TO ORTHOPAEDICS OFFICE/OUTPATIENT [facility] 60 MINUTES Nancy, JamesDO camila [address] [place] [address] Referral ID Status Reason Start Date Expiration Date V isits Requested Visits Authorized [id number] Closed PCP Requested Referral 11/29/2023 11/28/2024 1 1 Reason Comments New Patient Specialty Diagnoses / Procedures Referred By Contac t Referred To Contact Ent - Otolaryngology Diagnoses Inducible laryngeal obstruction (ILO) Procedures CONSULT TO ENT OFFICE/OUTPATIENT [facility] 60 MINUTES Deven Logan MD [address] [facility] [place] [address] Werner Murrell, PhD, [facility] [employer] [address] [place] [address] Referral ID Status Reason Start Date Expiration Date V isits Requested Visits Authorized [id number] Closed PCP Requested Referral 11/23/2023 11/22/2024 1 1 Reason Comments Sinus Problem Left ear pain, conge stion, left side of face painful x 3 days 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 Reason Comments Speech Instrumental Swallow Eval Speech Discharge Specialty Diagnoses / Procedures Referred By Contac t Referred To Contact XR IMAGING Diagnoses Gastroesophageal reflux disease, unspecified whether esophagitis present Procedures XR MODIFIED BARIUM SWALLOW W SPEECH THERAPY RADIOLOGIC EXAM SWALLOW FUNCTION CONTRAST STUDY Deven Logan MD [address] [facility] General [place] [address] Xr Imaging [place] [address] Referral ID Status Reason Start Date Expiration Date V isits Requested Visits Authorized [id number] Closed Auto-Generate d Referral 12/12/2023 01/10/2025 1 1 Reason Comments New Reason Comments Cough Reason Comments 3 month follow up Reason Comments CARD Follow Up 6 Month Paroxysmal suprav entricular tachycardia Specialty Diagnoses / Procedures Referred By Contac t Referred To Contact MR IMAGING Diagnoses Pain of right hip Procedures MRI HIP WO IVCON RIGHT MRI ANY JT LOWER EXTREM W/O CONTRAST Mahendra Farris MD [address] [place] [address] Mr Imaging [place] [address] Referral ID Status Reason Start Date Expiration Date V isits Requested Visits Authorized [id number] Closed Auto-Generate d Referral 12/13/2023 02/10/2024 1 1 Reason Comments Radio Gen RMP Specialty Diagnoses / Procedures Referred By Contac t Referred To Contact XR IMAGING Diagnoses Pain Procedures XR HIP BILATERAL 5V PEL/AP/LAT EACH HIP RADEX HIPS BILATERAL WITH PELVIS MINIMUM 5 VIEWS Monika Arnold PA-C [address] [place] [address] Xr Imaging [place] [address] Referral ID Status Reason Start Date Expiration Date V isits Requested Visits Authorized [id number] Closed Auto-Generate d Referral 12/28/2022 01/27/2024 1 1 Reason Comments New No known injury Reason Comments Radiology XR Specialty Diagnoses / Procedures Referred By Contac t Referred To Contact XR IMAGING Diagnoses Pain in left hip Procedures XR HIP GENERAL 3V PELV/AP/LAT LEFT RADEX HIP UNILATERAL WITH PELVIS 2-3 VIEWS Rosa Goff PA-C [address] [facility] [address] [place] [id number] [place] [address] Referral ID Status Reason Start Date Expiration Date V isits Requested Visits Authorized [id number] Closed Auto-Generate d Referral 06/19/2024 07/19/2025 1 1 Reason Comments New Reason Onset Date Comments Refill Request 06/01/2024 Specialty Diagnoses / Procedures Referred By Yoliac t Referred To Contact MR IMAGING Diagnoses Pain of left hip Procedures MRI HIP WO IVCON LEFT MRI ANY JT LOWER EXTREM W/O CONTRAST MATRL Rosa Goff PA-C [address] [place] [address] Mr Imaging [place] [address] Referral ID Status Reason Start Date Expiration Date V isits Requested Visits Authorized [id number] Closed Auto-Generate d Referral 06/26/2024 08/24/2024 1 1 Reason Comments Injections Reason Comments PT Eval Specialty Diagnoses / Procedures Referred By Soraya velasquez Referred To Contact [facility] Diagnoses Tear of left acetabular labrum, initial encounter Pain of left hip Tendinopathy of left gluteal region Procedures CONSULT TO PHYSICAL THERAPY PHYSICAL THERAPY EVALUATION HIGH COMPLEX 45 MINS Rosa Goff PA-C [address] [place] [address] [facility] [place] [address] [place] [address] Referral ID Status Reason Start Date Expiration Date Visits Requested Visits Authorized [id number] Authorized Auto-Generat ed Referral 03/03/2024 10/02/2024 30 30 Reason Onset Date Comments Refill Request 08/22/2024 Reason Onset Date Comments Refill Request 09/19/2024 Reason Comments insurance denial [facility] - Tramadol Reason Onset Date Comments Refill Request 10/22/2024 Reason Comments Referral to Sleep Medicine Reason Comments 4 month follow up Patient stated she h as not gotten any better but she has not gotten any worse. After cleaning her house for 6 hours with having dogs and cats is when she has her worst days. Reason Onset Date Comments Refill Request 11/08/2024 Reason Onset Date Comments Refill Request 11/14/2024 Reason Onset Date Comments Refill Request 11/21/2024 Reason Comments Insurance Authorization [facility] Reason Onset Date Comments Refill Request 12/19/2024 Reason Comments Back Pain Hip Pain Reason Onset Date Comments Refill Request 01/16/2025 Reason Onset Date Comments Refill Request 02/11/2025 Reason Onset Date Comments Refill Request 02/13/2025 Reason Onset Date Comments Refill Request 03/13/2025 Reason Onset Date Comments Refill Request 04/10/2025 Reason Comments Insurance Authorization [facility] Reason Onset Date Comments Refill Request 04/11/2025 Referral ID Status Reason Start Date Expiration Date V isits Requested Visits Authorized [id number] Authorized 04/08/2025 04/08/2026 4 4 Reason Comments 6 month follow up Follow Up Reason Onset Date Comments Refill Request 06/05/2025 Source Comments (unrecognize d section and content) In the event this informatio n is protected by the Federal Confidentiality of Alcohol and Drug Abuse Patient Records regulations: The Federal rules restrict any use of the information to criminally investigate or prosecute any alcohol or drug abuse patient.[facility] the event this information is protected by the Federal Confidentiality of Alcohol and Drug Abuse Patient Records regulations: The Federal rules restrict any use of the information to criminally investigate or prosecute any alcohol or drug abuse patient.[facility] Hospital[facility] the event this information is protected by the Federal Confidentiality of Alcohol and Drug Abuse Patient Records regulations: The Federal rules restrict any use of the information to criminally investigate or prosecute any alcohol or drug abuse patient.[facility] Hospital[facility] the event this information is protected by the Federal Confidentiality of Alcohol and Drug Abuse Patient Records regulations: The Federal rules restrict any use of the information to criminally investigate or prosecute any alcohol or drug abuse patient.[facility] Hospital[facility] the event this information is protected by the Federal Confidentiality of Alcohol and Drug Abuse Patient Records regulations: The Federal rules restrict any use of the information to criminally investigate or prosecute any alcohol or drug abuse patient.[facility] Hospital[facility] the event this information is protected by the Federal Confidentiality of Alcohol and Drug Abuse Patient Records regulations: The Federal rules restrict any use of the information to criminally investigate or prosecute any alcohol or drug abuse patient.[facility] Hospital[facility] the event this information is protected by the Federal Confidentiality of Alcohol and Drug Abuse Patient Records regulations: The Federal rules restrict any use of the information to criminally investigate or prosecute any alcohol or drug abuse patient.[facility] Hospital[facility] the event this information is protected by the Federal Confidentiality of Alcohol and Drug Abuse Patient Records regulations: The Federal rules restrict any use of the information to criminally investigate or prosecute any alcohol or drug abuse patient.[facility] the event this information is protected by the Federal Confidentiality of Alcohol and Drug Abuse Patient Records regulations: The Federal rules restrict any use of the information to criminally investigate or prosecute any alcohol or drug abuse patient.[facility]In the event this information is protected by the Federal Confidentiality of Alcohol and Drug Abuse Patient Records regulations: The Federal rules restrict any use of the information to criminally investigate or prosecute any alcohol or drug abuse patient.[facility] HospitalIn the event this information is protected by the Federal Confidentiality of Alcohol and Drug Abuse Patient Records regulations: The Federal rules restrict any use of the information to criminally investigate or prosecute any alcohol or drug abuse patient.[facility] HospitalIn the event this information is protected by the Federal Confidentiality of Alcohol and Drug Abuse Patient Records regulations: The Federal rules restrict any use of the information to criminally investigate or prosecute any alcohol or drug abuse patient.[facility] HospitalIn the event this information is protected by the Federal Confidentiality of Alcohol and Drug Abuse Patient Records regulations: The Federal rules restrict any use of the information to criminally investigate or prosecute any alcohol or drug abuse patient.[facility] HospitalIn the event this information is protected by the Federal Confidentiality of Alcohol and Drug Abuse Patient Records regulations: The Federal rules restrict any use of the information to criminally investigate or prosecute any alcohol or drug abuse patient.[facility] HospitalIn the event this information is protected by the Federal Confidentiality of Alcohol and Drug Abuse Patient Records regulations: The Federal rules restrict any use of the information to criminally investigate or prosecute any alcohol or drug abuse patient.[facility] HospitalIn the event this information is protected by the Federal Confidentiality of Alcohol and Drug Abuse Patient Records regulations: The Federal rules restrict any use of the information to criminally investigate or prosecute any alcohol or drug abuse patient.[facility] HospitalIn the event this information is protected by the Federal Confidentiality of Alcohol and Drug Abuse Patient Records regulations: The Federal rules restrict any use of the information to criminally investigate or prosecute any alcohol or drug abuse patient.[facility] HospitalIn the event this information is protected by the Federal Confidentiality of Alcohol and Drug Abuse Patient Records regulations: The Federal rules restrict any use of the information to criminally investigate or prosecute any alcohol or drug abuse patient.[facility] HospitalIn the event this information is protected by the Federal Confidentiality of Alcohol and Drug Abuse Patient Records regulations: The Federal rules restrict any use of the information to criminally investigate or prosecute any alcohol or drug abuse patient.[facility] HospitalIn the event this information is protected by the Federal Confidentiality of Alcohol and Drug Abuse Patient Records regulations: The Federal rules restrict any use of the information to criminally investigate or prosecute any alcohol or drug abuse patient.[facility] HospitalIn the event this information is protected by the Federal Confidentiality of Alcohol and Drug Abuse Patient Records regulations: The Federal rules restrict any use of the information to criminally investigate or prosecute any alcohol or drug abuse patient.[facility] HospitalIn the event this information is protected by the Federal Confidentiality of Alcohol and Drug Abuse Patient Records regulations: The Federal rules restrict any use of the information to criminally investigate or prosecute any alcohol or drug abuse patient.[facility] HospitalIn the event this information is protected by the Federal Confidentiality of Alcohol and Drug Abuse Patient Records regulations: The Federal rules restrict any use of the information to criminally investigate or prosecute any alcohol or drug abuse patient.[facility] HospitalIn the event this information is protected by the Federal Confidentiality of Alcohol and Drug Abuse Patient Records regulations: The Federal rules restrict any use of the information to criminally investigate or prosecute any alcohol or drug abuse patient.[facility] HospitalIn the event this information is protected by the Federal Confidentiality of Alcohol and Drug Abuse Patient Records regulations: The Federal rules restrict any use of the information to criminally investigate or prosecute any alcohol or drug abuse patient.[facility] HospitalIn the event this information is protected by the Federal Confidentiality of Alcohol and Drug Abuse Patient Records regulations: The Federal rules restrict any use of the information to criminally investigate or prosecute any alcohol or drug abuse patient.[facility] HospitalIn the event this information is protected by the Federal Confidentiality of Alcohol and Drug Abuse Patient Records regulations: The Federal rules restrict any use of the information to criminally investigate or prosecute any alcohol or drug abuse patient.[facility] HospitalIn the event this information is protected by the Federal Confidentiality of Alcohol and Drug Abuse Patient Records regulations: The Federal rules restrict any use of the information to criminally investigate or prosecute any alcohol or drug abuse patient.[facility] HospitalIn the event this information is protected by the Federal Confidentiality of Alcohol and Drug Abuse Patient Records regulations: The Federal rules restrict any use of the information to criminally investigate or prosecute any alcohol or drug abuse patient.[facility] HospitalIn the event this information is protected by the Federal Confidentiality of Alcohol and Drug Abuse Patient Records regulations: The Federal rules restrict any use of the information to criminally investigate or prosecute any alcohol or drug abuse patient.[facility] HospitalIn the event this information is protected by the Federal Confidentiality of Alcohol and Drug Abuse Patient Records regulations: The Federal rules restrict any use of the information to criminally investigate or prosecute any alcohol or drug abuse patient.[facility] HospitalIn the event this information is protected by the Federal Confidentiality of Alcohol and Drug Abuse Patient Records regulations: The Federal rules restrict any use of the information to criminally investigate or prosecute any alcohol or drug abuse patient.[facility] HospitalIn the event this information is protected by the Federal Confidentiality of Alcohol and Drug Abuse Patient Records regulations: The Federal rules restrict any use of the information to criminally investigate or prosecute any alcohol or drug abuse patient.[facility] HospitalIn the event this information is protected by the Federal Confidentiality of Alcohol and Drug Abuse Patient Records regulations: The Federal rules restrict any use of the information to criminally investigate or prosecute any alcohol or drug abuse patient.[facility] HospitalIn the event this information is protected by the Federal Confidentiality of Alcohol and Drug Abuse Patient Records regulations: The Federal rules restrict any use of the information to criminally investigate or prosecute any alcohol or drug abuse patient.[facility] HospitalIn the event this information is protected by the Federal Confidentiality of Alcohol and Drug Abuse Patient Records regulations: The Federal rules restrict any use of the information to criminally investigate or prosecute any alcohol or drug abuse patient.[facility] HospitalIn the event this information is protected by the Federal Confidentiality of Alcohol and Drug Abuse Patient Records regulations: The Federal rules restrict any use of the information to criminally investigate or prosecute any alcohol or drug abuse patient.[facility] HospitalIn the event this information is protected by the Federal Confidentiality of Alcohol and Drug Abuse Patient Records regulations: The Federal rules restrict any use of the information to criminally investigate or prosecute any alcohol or drug abuse patient.[facility] HospitalIn the event this information is protected by the Federal Confidentiality of Alcohol and Drug Abuse Patient Records regulations: The Federal rules restrict any use of the information to criminally investigate or prosecute any alcohol or drug abuse patient.[facility] HospitalIn the event this information is protected by the Federal Confidentiality of Alcohol and Drug Abuse Patient Records regulations: The Federal rules restrict any use of the information to criminally investigate or prosecute any alcohol or drug abuse patient.[facility] HospitalIn the event this information is protected by the Federal Confidentiality of Alcohol and Drug Abuse Patient Records regulations: The Federal rules restrict any use of the information to criminally investigate or prosecute any alcohol or drug abuse patient.[facility] HospitalIn the event this information is protected by the Federal Confidentiality of Alcohol and Drug Abuse Patient Records regulations: The Federal rules restrict any use of the information to criminally investigate or prosecute any alcohol or drug abuse patient.[facility] HospitalIn the event this information is protected by the Federal Confidentiality of Alcohol and Drug Abuse Patient Records regulations: The Federal rules restrict any use of the information to criminally investigate or prosecute any alcohol or drug abuse patient.[facility] HospitalIn the event this information is protected by the Federal Confidentiality of Alcohol and Drug Abuse Patient Records regulations: The Federal rules restrict any use of the information to criminally investigate or prosecute any alcohol or drug abuse patient.[facility] HospitalIn the event this information is protected by the Federal Confidentiality of Alcohol and Drug Abuse Patient Records regulations: The Federal rules restrict any use of the information to criminally investigate or prosecute any alcohol or drug abuse patient.[facility] HospitalIn the event this information is protected by the Federal Confidentiality of Alcohol and Drug Abuse Patient Records regulations: The Federal rules restrict any use of the information to criminally investigate or prosecute any alcohol or drug abuse patient.[facility] HospitalIn the event this information is protected by the Federal Confidentiality of Alcohol and Drug Abuse Patient Records regulations: The Federal rules restrict any use of the information to criminally investigate or prosecute any alcohol or drug abuse patient.[facility] HospitalIn the event this information is protected by the Federal Confidentiality of Alcohol and Drug Abuse Patient Records regulations: The Federal rules restrict any use of the information to criminally investigate or prosecute any alcohol or drug abuse patient.[facility] HospitalIn the event this information is protected by the Federal Confidentiality of Alcohol and Drug Abuse Patient Records regulations: The Federal rules restrict any use of the information to criminally investigate or prosecute any alcohol or drug abuse patient.[facility] HospitalIn the event this information is protected by the Federal Confidentiality of Alcohol and Drug Abuse Patient Records regulations: The Federal rules restrict any use of the information to criminally investigate or prosecute any alcohol or drug abuse patient.[facility] HospitalIn the event this information is protected by the Federal Confidentiality of Alcohol and Drug Abuse Patient Records regulations: The Federal rules restrict any use of the information to criminally investigate or prosecute any alcohol or drug abuse patient.[facility] HospitalIn the event this information is protected by the Federal Confidentiality of Alcohol and Drug Abuse Patient Records regulations: The Federal rules restrict any use of the information to criminally investigate or prosecute any alcohol or drug abuse patient.[facility] HospitalIn the event this information is protected by the Federal Confidentiality of Alcohol and Drug Abuse Patient Records regulations: The Federal rules restrict any use of the information to criminally investigate or prosecute any alcohol or drug abuse patient.[facility] HospitalIn the event this information is protected by the Federal Confidentiality of Alcohol and Drug Abuse Patient Records regulations: The Federal rules restrict any use of the information to criminally investigate or prosecute any alcohol or drug abuse patient.[facility] HospitalIn the event this information is protected by the Federal Confidentiality of Alcohol and Drug Abuse Patient Records regulations: The Federal rules restrict any use of the information to criminally investigate or prosecute any alcohol or drug abuse patient.[facility] HospitalIn the event this information is protected by the Federal Confidentiality of Alcohol and Drug Abuse Patient Records regulations: The Federal rules restrict any use of the information to criminally investigate or prosecute any alcohol or drug abuse patient.[facility] HospitalIn the event this information is protected by the Federal Confidentiality of Alcohol and Drug Abuse Patient Records regulations: The Federal rules restrict any use of the information to criminally investigate or prosecute any alcohol or drug abuse patient.[facility] HospitalIn the event this information is protected by the Federal Confidentiality of Alcohol and Drug Abuse Patient Records regulations: The Federal rules restrict any use of the information to criminally investigate or prosecute any alcohol or drug abuse patient.[facility] HospitalIn the event this information is protected by the Federal Confidentiality of Alcohol and Drug Abuse Patient Records regulations: The Federal rules restrict any use of the information to criminally investigate or prosecute any alcohol or drug abuse patient.[facility] HospitalIn the event this information is protected by the Federal Confidentiality of Alcohol and Drug Abuse Patient Records regulations: The Federal rules restrict any use of the information to criminally investigate or prosecute any alcohol or drug abuse patient.[facility] HospitalIn the event this information is protected by the Federal Confidentiality of Alcohol and Drug Abuse Patient Records regulations: The Federal rules restrict any use of the information to criminally investigate or prosecute any alcohol or drug abuse patient.[facility] HospitalIn the event this information is protected by the Federal Confidentiality of Alcohol and Drug Abuse Patient Records regulations: The Federal rules restrict any use of the information to criminally investigate or prosecute any alcohol or drug abuse patient.[facility] HospitalIn the event this information is protected by the Federal Confidentiality of Alcohol and Drug Abuse Patient Records regulations: The Federal rules restrict any use of the information to criminally investigate or prosecute any alcohol or drug abuse patient.[facility] HospitalIn the event this information is protected by the Federal Confidentiality of Alcohol and Drug Abuse Patient Records regulations: The Federal rules restrict any use of the information to criminally investigate or prosecute any alcohol or drug abuse patient.[facility] HospitalIn the event this information is protected by the Federal Confidentiality of Alcohol and Drug Abuse Patient Records regulations: The Federal rules restrict any use of the information to criminally investigate or prosecute any alcohol or drug abuse patient.[facility] HospitalIn the event this information is protected by the Federal Confidentiality of Alcohol and Drug Abuse Patient Records regulations: The Federal rules restrict any use of the information to criminally investigate or prosecute any alcohol or drug abuse patient.[facility] HospitalIn the event this information is protected by the Federal Confidentiality of Alcohol and Drug Abuse Patient Records regulations: The Federal rules restrict any use of the information to criminally investigate or prosecute any alcohol or drug abuse patient.[facility] HospitalIn the event this information is protected by the Federal Confidentiality of Alcohol and Drug Abuse Patient Records regulations: The Federal rules restrict any use of the information to criminally investigate or prosecute any alcohol or drug abuse patient.[facility] HospitalIn the event this information is protected by the Federal Confidentiality of Alcohol and Drug Abuse Patient Records regulations: The Federal rules restrict any use of the information to criminally investigate or prosecute any alcohol or drug abuse patient.[facility] HospitalIn the event this information is protected by the Federal Confidentiality of Alcohol and Drug Abuse Patient Records regulations: The Federal rules restrict any use of the information to criminally investigate or prosecute any alcohol or drug abuse patient.[facility] HospitalIn the event this information is protected by the Federal Confidentiality of Alcohol and Drug Abuse Patient Records regulations: The Federal rules restrict any use of the information to criminally investigate or prosecute any alcohol or drug abuse patient.[facility] HospitalIn the event this information is protected by the Federal Confidentiality of Alcohol and Drug Abuse Patient Records regulations: The Federal rules restrict any use of the information to criminally investigate or prosecute any alcohol or drug abuse patient.[facility] HospitalIn the event this information is protected by the Federal Confidentiality of Alcohol and Drug Abuse Patient Records regulations: The Federal rules restrict any use of the information to criminally investigate or prosecute any alcohol or drug abuse patient.[facility] HospitalIn the event this information is protected by the Federal Confidentiality of Alcohol and Drug Abuse Patient Records regulations: The Federal rules restrict any use of the information to criminally investigate or prosecute any alcohol or drug abuse patient.[facility] HospitalIn the event this information is protected by the Federal Confidentiality of Alcohol and Drug Abuse Patient Records regulations: The Federal rules restrict any use of the information to criminally investigate or prosecute any alcohol or drug abuse patient.[facility] HospitalIn the event this information is protected by the Federal Confidentiality of Alcohol and Drug Abuse Patient Records regulations: The Federal rules restrict any use of the information to criminally investigate or prosecute any alcohol or drug abuse patient.[facility] HospitalIn the event this information is protected by the Federal Confidentiality of Alcohol and Drug Abuse Patient Records regulations: The Federal rules restrict any use of the information to criminally investigate or prosecute any alcohol or drug abuse patient.[facility] HospitalIn the event this information is protected by the Federal Confidentiality of Alcohol and Drug Abuse Patient Records regulations: The Federal rules restrict any use of the information to criminally investigate or prosecute any alcohol or drug abuse patient.[facility] HospitalIn the event this information is protected by the Federal Confidentiality of Alcohol and Drug Abuse Patient Records regulations: The Federal rules restrict any use of the information to criminally investigate or prosecute any alcohol or drug abuse patient.[facility] HospitalIn the event this information is protected by the Federal Confidentiality of Alcohol and Drug Abuse Patient Records regulations: The Federal rules restrict any use of the information to criminally investigate or prosecute any alcohol or drug abuse patient.[facility] HospitalIn the event this information is protected by the Federal Confidentiality of Alcohol and Drug Abuse Patient Records regulations: The Federal rules restrict any use of the information to criminally investigate or prosecute any alcohol or drug abuse patient.[facility] HospitalIn the event this information is protected by the Federal Confidentiality of Alcohol and Drug Abuse Patient Records regulations: The Federal rules restrict any use of the information to criminally investigate or prosecute any alcohol or drug abuse patient.[facility] HospitalIn the event this information is protected by the Federal Confidentiality of Alcohol and Drug Abuse Patient Records regulations: The Federal rules restrict any use of the information to criminally investigate or prosecute any alcohol or drug abuse patient.[facility] HospitalIn the event this information is protected by the Federal Confidentiality of Alcohol and Drug Abuse Patient Records regulations: The Federal rules restrict any use of the information to criminally investigate or prosecute any alcohol or drug abuse patient.[facility] HospitalIn the event this information is protected by the Federal Confidentiality of Alcohol and Drug Abuse Patient Records regulations: The Federal rules restrict any use of the information to criminally investigate or prosecute any alcohol or drug abuse patient.[facility] HospitalIn the event this information is protected by the Federal Confidentiality of Alcohol and Drug Abuse Patient Records regulations: The Federal rules restrict any use of the information to criminally investigate or prosecute any alcohol or drug abuse patient.[facility] HospitalIn the event this information is protected by the Federal Confidentiality of Alcohol and Drug Abuse Patient Records regulations: The Federal rules restrict any use of the information to criminally investigate or prosecute any alcohol or drug abuse patient.[facility] HospitalIn the event this information is protected by the Federal Confidentiality of Alcohol and Drug Abuse Patient Records regulations: The Federal rules restrict any use of the information to criminally investigate or prosecute any alcohol or drug abuse patient.[facility] HospitalIn the event this information is protected by the Federal Confidentiality of Alcohol and Drug Abuse Patient Records regulations: The Federal rules restrict any use of the information to criminally investigate or prosecute any alcohol or drug abuse patient.[facility] HospitalIn the event this information is protected by the Federal Confidentiality of Alcohol and Drug Abuse Patient Records regulations: The Federal rules restrict any use of the information to criminally investigate or prosecute any alcohol or drug abuse patient.[facility] HospitalIn the event this information is protected by the Federal Confidentiality of Alcohol and Drug Abuse Patient Records regulations: The Federal rules restrict any use of the information to criminally investigate or prosecute any alcohol or drug abuse patient.[facility] HospitalIn the event this information is protected by the Federal Confidentiality of Alcohol and Drug Abuse Patient Records regulations: The Federal rules restrict any use of the information to criminally investigate or prosecute any alcohol or drug abuse patient.[facility] HospitalIn the event this information is protected by the Federal Confidentiality of Alcohol and Drug Abuse Patient Records regulations: The Federal rules restrict any use of the information to criminally investigate or prosecute any alcohol or drug abuse patient.[facility] HospitalIn the event this information is protected by the Federal Confidentiality of Alcohol and Drug Abuse Patient Records regulations: The Federal rules restrict any use of the information to criminally investigate or prosecute any alcohol or drug abuse patient.[facility] HospitalIn the event this information is protected by the Federal Confidentiality of Alcohol and Drug Abuse Patient Records regulations: The Federal rules restrict any use of the information to criminally investigate or prosecute any alcohol or drug abuse patient.[facility] HospitalIn the event this information is protected by the Federal Confidentiality of Alcohol and Drug Abuse Patient Records regulations: The Federal rules restrict any use of the information to criminally investigate or prosecute any alcohol or drug abuse patient.[facility] HospitalIn the event this information is protected by the Federal Confidentiality of Alcohol and Drug Abuse Patient Records regulations: The Federal rules restrict any use of the information to criminally investigate or prosecute any alcohol or drug abuse patient.[facility] HospitalIn the event this information is protected by the Federal Confidentiality of Alcohol and Drug Abuse Patient Records regulations: The Federal rules restrict any use of the information to criminally investigate or prosecute any alcohol or drug abuse patient.[facility] HospitalIn the event this information is protected by the Federal Confidentiality of Alcohol and Drug Abuse Patient Records regulations: The Federal rules restrict any use of the information to criminally investigate or prosecute any alcohol or drug abuse patient.[facility] HospitalIn the event this information is protected by the Federal Confidentiality of Alcohol and Drug Abuse Patient Records regulations: The Federal rules restrict any use of the information to criminally investigate or prosecute any alcohol or drug abuse patient.[facility] HospitalIn the event this information is protected by the Federal Confidentiality of Alcohol and Drug Abuse Patient Records regulations: The Federal rules restrict any use of the information to criminally investigate or prosecute any alcohol or drug abuse patient.[facility] HospitalIn the event this information is protected by the Federal Confidentiality of Alcohol and Drug Abuse Patient Records regulations: The Federal rules restrict any use of the information to criminally investigate or prosecute any alcohol or drug abuse patient.[facility] HospitalIn the event this information is protected by the Federal Confidentiality of Alcohol and Drug Abuse Patient Records regulations: The Federal rules restrict any use of the information to criminally investigate or prosecute any alcohol or drug abuse patient.[facility] HospitalIn the event this information is protected by the Federal Confidentiality of Alcohol and Drug Abuse Patient Records regulations: The Federal rules restrict any use of the information to criminally investigate or prosecute any alcohol or drug abuse patient.[facility] HospitalIn the event this information is protected by the Federal Confidentiality of Alcohol and Drug Abuse Patient Records regulations: The Federal rules restrict any use of the information to criminally investigate or prosecute any alcohol or drug abuse patient.[facility] HospitalIn the event this information is protected by the Federal Confidentiality of Alcohol and Drug Abuse Patient Records regulations: The Federal rules restrict any use of the information to criminally investigate or prosecute any alcohol or drug abuse patient.[facility] HospitalIn the event this information is protected by the Federal Confidentiality of Alcohol and Drug Abuse Patient Records regulations: The Federal rules restrict any use of the information to criminally investigate or prosecute any alcohol or drug abuse patient.[facility] HospitalIn the event this information is protected by the Federal Confidentiality of Alcohol and Drug Abuse Patient Records regulations: The Federal rules restrict any use of the information to criminally investigate or prosecute any alcohol or drug abuse patient.[facility] HospitalIn the event this information is protected by the Federal Confidentiality of Alcohol and Drug Abuse Patient Records regulations: The Federal rules restrict any use of the information to criminally investigate or prosecute any alcohol or drug abuse patient.[facility] HospitalIn the event this information is protected by the Federal Confidentiality of Alcohol and Drug Abuse Patient Records regulations: The Federal rules restrict any use of the information to criminally investigate or prosecute any alcohol or drug abuse patient.[facility] HospitalIn the event this information is protected by the Federal Confidentiality of Alcohol and Drug Abuse Patient Records regulations: The Federal rules restrict any use of the information to criminally investigate or prosecute any alcohol or drug abuse patient.[facility] HospitalIn the event this information is protected by the Federal Confidentiality of Alcohol and Drug Abuse Patient Records regulations: The Federal rules restrict any use of the information to criminally investigate or prosecute any alcohol or drug abuse patient.[facility] HospitalIn the event this information is protected by the Federal Confidentiality of Alcohol and Drug Abuse Patient Records regulations: The Federal rules restrict any use of the information to criminally investigate or prosecute any alcohol or drug abuse patient.[facility] HospitalIn the event this information is protected by the Federal Confidentiality of Alcohol and Drug Abuse Patient Records regulations: The Federal rules restrict any use of the information to criminally investigate or prosecute any alcohol or drug abuse patient.[facility] HospitalIn the event this information is protected by the Federal Confidentiality of Alcohol and Drug Abuse Patient Records regulations: The Federal rules restrict any use of the information to criminally investigate or prosecute any alcohol or drug abuse patient.[facility] HospitalIn the event this information is protected by the Federal Confidentiality of Alcohol and Drug Abuse Patient Records regulations: The Federal rules restrict any use of the information to criminally investigate or prosecute any alcohol or drug abuse patient.[facility] HospitalIn the event this information is protected by the Federal Confidentiality of Alcohol and Drug Abuse Patient Records regulations: The Federal rules restrict any use of the information to criminally investigate or prosecute any alcohol or drug abuse patient.[facility] HospitalIn the event this information is protected by the Federal Confidentiality of Alcohol and Drug Abuse Patient Records regulations: The Federal rules restrict any use of the information to criminally investigate or prosecute any alcohol or drug abuse patient.[facility] HospitalIn the event this information is protected by the Federal Confidentiality of Alcohol and Drug Abuse Patient Records regulations: The Federal rules restrict any use of the information to criminally investigate or prosecute any alcohol or drug abuse patient.[facility] HospitalIn the event this information is protected by the Federal Confidentiality of Alcohol and Drug Abuse Patient Records regulations: The Federal rules restrict any use of the information to criminally investigate or prosecute any alcohol or drug abuse patient.[facility] HospitalIn the event this information is protected by the Federal Confidentiality of Alcohol and Drug Abuse Patient Records regulations: The Federal rules restrict any use of the information to criminally investigate or prosecute any alcohol or drug abuse patient.[facility] HospitalIn the event this information is protected by the Federal Confidentiality of Alcohol and Drug Abuse Patient Records regulations: The Federal rules restrict any use of the information to criminally investigate or prosecute any alcohol or drug abuse patient.[facility] HospitalIn the event this information is protected by the Federal Confidentiality of Alcohol and Drug Abuse Patient Records regulations: The Federal rules restrict any use of the information to criminally investigate or prosecute any alcohol or drug abuse patient.[facility] HospitalIn the event this information is protected by the Federal Confidentiality of Alcohol and Drug Abuse Patient Records regulations: The Federal rules restrict any use of the information to criminally investigate or prosecute any alcohol or drug abuse patient.[facility] HospitalIn the event this information is protected by the Federal Confidentiality of Alcohol and Drug Abuse Patient Records regulations: The Federal rules restrict any use of the information to criminally investigate or prosecute any alcohol or drug abuse patient.[facility] HospitalIn the event this information is protected by the Federal Confidentiality of Alcohol and Drug Abuse Patient Records regulations: The Federal rules restrict any use of the information to criminally investigate or prosecute any alcohol or drug abuse patient.[facility] HospitalIn the event this information is protected by the Federal Confidentiality of Alcohol and Drug Abuse Patient Records regulations: The Federal rules restrict any use of the information to criminally investigate or prosecute any alcohol or drug abuse patient.[facility] HospitalIn the event this information is protected by the Federal Confidentiality of Alcohol and Drug Abuse Patient Records regulations: The Federal rules restrict any use of the information to criminally investigate or prosecute any alcohol or drug abuse patient.[facility] HospitalIn the event this information is protected by the Federal Confidentiality of Alcohol and Drug Abuse Patient Records regulations: The Federal rules restrict any use of the information to criminally investigate or prosecute any alcohol or drug abuse patient.[facility] HospitalIn the event this information is protected by the Federal Confidentiality of Alcohol and Drug Abuse Patient Records regulations: The Federal rules restrict any use of the information to criminally investigate or prosecute any alcohol or drug abuse patient.[facility] HospitalIn the event this information is protected by the Federal Confidentiality of Alcohol and Drug Abuse Patient Records regulations: The Federal rules restrict any use of the information to criminally investigate or prosecute any alcohol or drug abuse patient.[facility] HospitalIn the event this information is protected by the Federal Confidentiality of Alcohol and Drug Abuse Patient Records regulations: The Federal rules restrict any use of the information to criminally investigate or prosecute any alcohol or drug abuse patient.[facility] HospitalIn the event this information is protected by the Federal Confidentiality of Alcohol and Drug Abuse Patient Records regulations: The Federal rules restrict any use of the information to criminally investigate or prosecute any alcohol or drug abuse patient.[facility] HospitalIn the event this information is protected by the Federal Confidentiality of Alcohol and Drug Abuse Patient Records regulations: The Federal rules restrict any use of the information to criminally investigate or prosecute any alcohol or drug abuse patient.[facility] HospitalIn the event this information is protected by the Federal Confidentiality of Alcohol and Drug Abuse Patient Records regulations: The Federal rules restrict any use of the information to criminally investigate or prosecute any alcohol or drug abuse patient.[facility] HospitalIn the event this information is protected by the Federal Confidentiality of Alcohol and Drug Abuse Patient Records regulations: The Federal rules restrict any use of the information to criminally investigate or prosecute any alcohol or drug abuse patient.[facility] HospitalIn the event this information is protected by the Federal Confidentiality of Alcohol and Drug Abuse Patient Records regulations: The Federal rules restrict any use of the information to criminally investigate or prosecute any alcohol or drug abuse patient.[facility] Care Teams (unrecognized sec tion and content) Accounts Adjustable Clerk Relationship Specialty Start Date End Date Andrew Gonzalez MD [address] [place], [place] [id number] PCP - General Family Practice 03/05/14 Albina Luong MD [address] [place] [address] (Fax) Specialty [employer] Floor [employer]isher Cardiology 12/21/17 Lamont Michel DO [facility] [address] [place] [address] Specialty [employer] Floor Finisher Neurology 08/04/21 [place] [address] [place], [place] [id number] Specialty [employer] Floor Finisher Gastroenterology 08/04/21 Brenden [facility] Delma [address] [place], [place] [address]wy [address] [place] [phone] Specialty [employer] Floor Finisher Orthopedics 08/04/21 Accounts Adjustable Clerk Relationship Specialty Start Date End Date Andrew Gonzalez MD [address] [place], [place] 707782 PCP - General Family Practice 03/05/14 Albina Luong MD [address] [place] [address] Specialty Hard[employer] Floor Finisher Cardiology 12/21/17 Lamont Michel DO [facility] [address] [place] [address] Specialty [employer] Floor Finisher Neurology 08/04/21 [place] [address] [place], [place] [id number] Specialty [employer] Floor Finisher Gastroenterology 08/04/21 Brenden [facility] Delma [address] [place] [address] [address] [place] [phone] Specialty [employer] Floor Finisher Orthopedics 08/04/21 Accounts Adjustable Clerk Relationship Specialty Start Date End Date Andrew Gonzalez MD [address] [place], [place] [id number] PCP - General Family Practice 03/05/14 Albina Luong MD [address] [place] [address] (Fax) Specialty [employer] Floor Finisher Cardiology 12/21/17 Lamont Michel DO [facility] [address] [place] [address] Specialty Hard[employer] Floor Finisher Neurology 08/04/21 [place] [address] [place], [place] [id number] Specialty [employer] Floor Finisher Gastroenterology 08/04/21 Brenden [facility] Delma [facility] [address] [place] [phone] Specialty [employer] Floor Finisher Orthopedics 08/04/21 Accounts Adjustable Clerk Relationship Specialty Start Date End Date Andrew Gonzalez MD [address] [place], [place] 9758[address] PCP - General Family Practice 03/05/14 Albina Luong MD [address] [place] [address] (Fax) Specialty Hard[employer] Floor Finisher Cardiology 12/21/17 Lamont Michel DO [facility] [address] [place] [address] Specialty Hardwood Floor Finisher Neurology 08/04/21 [place] [address] [place], [place] [id number] Specialty Hardwood Floor Finisher Gastroenterology 08/04/21 Jean Wilcox [address] [facility] [address] [place] [phone] Specialty [employer] Floor Finisher Orthopedics 08/04/21 Accounts Adjustable Clerk Relationship Specialty Start Date End Date Andrew Gonzalez MD [address] [place], [place] 787372 PCP - General Family Practice 03/05/14 Albina Luong MD [address] [place] [phone] (Fax) Specialty [employer] Floor Finisher Cardiology 12/21/17 Lamont Michel DO [facility] [address] [place] [address] Specialty Hardwood Floor Finisher Neurology 08/04/21 [place] [address] [place], [place] [id number] Specialty Hard[employer] Floor Finisher Gastroenterology 08/04/21 Jean Wilcox [address] [place] [address] [address] [place] [phone] Specialty [employer] Floor Finisher Orthopedics 08/04/21 Accounts Adjustable Clerk Relationship Specialty Start Date End Date Andrew Gonzalez MD [address] [place], [place] 613252 PCP - General Family Practice 03/05/14 Albina Luong MD [address] [place] [address] (Fax) Specialty Hardwood Floor Finisher Cardiology 12/21/17 Lamont Michel DO [facility] [address] [place] [address] Specialty Hardwood Floor Finisher Neurology 08/04/21 [place] [address] [place], [place] [id number] Specialty Hard[employer] Floor Finisher Gastroenterology 08/04/21 Jean Wilcox [facility] [facility] [address] [place] [phone] Specialty [employer] Floor Finisher Orthopedics 08/04/21 Accounts Adjustable Clerk Relationship Specialty Start Date End Date Andrew Gonzalez MD [address] [place], [place] [id number] PCP - General Family Practice 03/05/14 Albina Luong MD [address] [place] [address] (Fax) Specialty Hardwood Floor Finisher Cardiology 12/21/17 Lamont Michel DO [facility] [address] [place], [place] 559042 Specialty Hardwood Floor Finisher Neurology 08/04/21 [place] [address] [place] [address] Specialty Hardwood Floor Finisher Gastroenterology 08/04/21 Jean Wilcox [facility] [address] [place] [phone] Specialty Hard[employer] Floor Finisher Orthopedics 08/04/21 Accounts Adjustable Clerk Relationship Specialty Start Date End Date Andrew Gonzalez MD [address] [place], [place] 632452 PCP - General Family Practice 03/05/14 Albina Luong MD [address] [place] [address] (Fax) Specialty Hardwood Floor Finisher Cardiology 12/21/17 Lamont Michel DO [facility] [address] [place], [place] 129722 Specialty Hardwood Floor Finisher Neurology 08/04/21 [place] [address] [place], [place] [id number] Specialty Hard[employer] Floor Finisher Gastroenterology 08/04/21 Jean Wilcox [address] [place] [phone] Specialty [employer] Floor Finisher Orthopedics 08/04/21 Accounts Adjustable Clerk Relationship Specialty Start Date End Date Andrew Gonzalez MD [address] [place], [place] [id number] PCP - General Family Practice 03/05/14 Albina Luong MD [address] [place] [address] (Fax) Specialty Hardwood Floor Finisher Cardiology 12/21/17 Lamont Michel DO [facility] [address] [place] [address] Specialty Hardwood Floor Finisher Neurology 08/04/21 [place] [address] [place], [place] 1962136 Specialty Hard[employer] Floor Finisher Gastroenterology 08/04/21 Jean Wilcox [facility] [place] [phone] Specialty Hard[employer] Floor Finisher Orthopedics 08/04/21 Accounts Adjustable Clerk Relationship Specialty Start Date End Date Andrew Gonzalez MD [address] [place], [place] [id number] PCP - General Family Medicine 03/05/14 Albina Luong MD [address] [place] [address] (Fax) Specialty Hardwood Floor Finisher Cardiology 12/21/17 Lamont Michel DO [facility] [address] [place], [place] [id number] Specialty Hardwood Floor Finisher Neurology 08/04/21 [place] [address] [place], [place] [id number] Specialty Hardwood Floor Finisher Gastroenterology 08/04/21 Jean Wilcox [address] [place] [phone] Specialty Hardwood Floor Finisher Orthopedics 08/04/21 Accounts Adjustable Clerk Relationship Specialty Start Date End Date Andrew Gonzalez MD [address] [place], [place] [id number] PCP - General Family Medicine 03/05/14 Albina Luong MD [address] [place] [address] (Fax) Specialty Hardwood Floor Finisher Cardiology 12/21/17 Lamont Michel DO [facility] [address] [place], [place] 715252 Specialty Hardwood Floor Finisher Neurology 08/04/21 [place] [address] [place], [place] [phone] Specialty Hardwood Floor Finisher Gastroenterology 08/04/21 Jean Wilcox [facility] [place] [phone] Specialty Hardwood Floor Finisher Orthopedics 08/04/21 Accounts Adjustable Clerk Relationship Specialty Start Date End Date Andrew Gonzalez MD [address] [place], [place] 124912 PCP - General Family Medicine 03/05/14 Albina Luong MD [address] [place] [address] (Fax) Specialty Hardwood Floor Finisher Cardiology 12/21/17 Lamont Michel DO [facility] [address] [place], [place] [id number] Specialty Hardwood Floor Finisher Neurology 08/04/21 [place] [address] [place], [place] [id number] Specialty Hard[employer] Floor Finisher Gastroenterology 08/04/21 Jean Wilcox [facility] [place] [phone] Specialty Hard[employer] Floor Finisher Orthopedics 08/04/21 Accounts Adjustable Clerk Relationship Specialty Start Date End Date Andrew Gonzalez MD [address] [place], [place] 143592 PCP - General Family Medicine 03/05/14 Albina Luong MD [address] [address] (Fax) Specialty Hardwood Floor Finisher Cardiology 12/21/17 Lamont Michel DO [facility] [address] [place], [place] [id number] Specialty Hardwood Floor Finisher Neurology 08/04/21 [place] [address] [place], [place] 1476536 Specialty Hardwood Floor Finisher Gastroenterology 08/04/21 Brenden [employer] [address] [phone] Specialty Hardwood Floor Finisher Orthopedics 08/04/21 Accounts Adjustable Clerk Relationship Specialty Start Date End Date Andrew Gonzalez MD [address] [place], [place] 149972 PCP - General Family Medicine 03/05/14 Albina Luong MD [address] [address] (Fax) Specialty Hardwood Floor Finisher Cardiology 12/21/17 Lamont Michel DO [facility] [address] [place], [place] [id number] Specialty Hardwood Floor Finisher Neurology 08/04/21 [place] [address] [place], [place] [phone] Specialty Hardwood Floor Finisher Gastroenterology 08/04/21 Brenden [facility] Delma [facility] [place] [phone] Specialty Hardwood Floor Finisher Orthopedics 08/04/21 Accounts Adjustable Clerk Relationship Specialty Start Date End Date Andrew Gonzalez MD [address] [place], [place] 269262 PCP - General Family Medicine 03/05/14 Albina Luong MD [address] [place] [address] Specialty Hardwood Floor Finisher Cardiology 12/21/17 Lamont Michel DO [address] [place], [place] 647922 Specialty Hardwood Floor Finisher Neurology 08/04/21 [place] [address] [place], [place] 0064136 Specialty Hardwood Floor Finisher Gastroenterology 08/04/21 [employer] Delma [address] [place] [address] [phone] Specialty Hardwood Floor Finisher Orthopedics 08/04/21 Accounts Adjustable Clerk Relationship Specialty Start Date End Date Andrew Gonzalez MD [address] [place], [place] 967422 PCP - General Family Medicine 03/05/14 Albina Luong MD [address] [facility] [address] [place] [address] Specialty Hardwood Floor Finisher Cardiology 12/21/17 Lamont Michel DO [facility] [facility] [address] [place], [place] [id number] Specialty Hardwood Floor Finisher Neurology 08/04/21 [place] [address] [place], [place] [phone] Specialty Hardwood Floor Finisher Gastroenterology 08/04/21 Jean Wilcox [facility] [address] [place] [phone] Specialty Hardwood Floor Finisher Orthopedics 08/04/21 Accounts Adjustable Clerk Relationship Specialty Start Date End Date Andrew Gonzalez MD [address] [place], [place] 143022 PCP - General Family Medicine 03/05/14 Albina Luong MD [address] [place] [phone] Specialty Hardwood Floor Finisher Cardiology 12/21/17 Lamont Michel DO [address] 613742 Specialty Hardwood Floor Finisher Neurology 08/04/21 [place] [address] [place], [place] [phone] Specialty Hardwood Floor Finisher Gastroenterology 08/04/21 Jean Wilcox [facility] [address] [place] [phone] Specialty Hardwood Floor Finisher Orthopedics 08/04/21 Accounts Adjustable Clerk Relationship Specialty Start Date End Date Andrew Gonzalez MD [address] [place], [place] 848152 PCP - General Family Medicine 03/05/14 Albina Luong MD [address] [place] [address] Specialty Hardwood Floor Finisher Cardiology 12/21/17 Lamont Michel DO [facility] [address] [place], [place] [id number] Specialty Hardwood Floor Finisher Neurology 08/04/21 [place] [address] [place], [place] [id number] Specialty Hardwood Floor Finisher Gastroenterology 08/04/21 [facility] [address] [facility] [address] [place] [phone] Specialty Hardwood Floor Finisher Orthopedics 08/04/21 Accounts Adjustable Clerk Relationship Specialty Start Date End Date Andrew Gonzalez MD [address] [place], [place] 135082 PCP - General Family Medicine 03/05/14 Albina Luong MD [address] [place] [phone] Specialty Hardwood Floor Finisher Cardiology 12/21/17 Lamont Michel DO [facility] [address] [place], [place] 254742 Specialty Hardwood Floor Finisher Neurology 08/04/21 [place] [address] [place] [address] Specialty Hardwood Floor Finisher Gastroenterology 08/04/21 [facility] [address] [facility] [address] [place] [phone] Specialty Hardwood Floor Finisher Orthopedics 08/04/21 Accounts Adjustable Clerk Relationship Specialty Start Date End Date Andrew Gonzalez MD [address] [place], [place] 620172 PCP - General Family Medicine 03/05/14 Albina Luong MD [address] [place] [address]-4156302-1726 Specialty Hardwood Floor Finisher Cardiology 12/21/17 Lamont Michel DO [facility] [address] [place], [place] [id number] Specialty Hardwood Floor Finisher Neurology 08/04/21 [place] [address] [place], [place] 0680836 Specialty Hardwood Floor Finisher Gastroenterology 08/04/21 [facility] [address] [facility] [address] [place] [phone] Specialty Hardwood Floor Finisher Orthopedics 08/04/21 Accounts Adjustable Clerk Relationship Specialty Start Date End Date Andrew Gonzalez MD [address] [place], [place] 056042 PCP - General Family Medicine 03/05/14 Albina Luong MD [address] [place] [address] Specialty Hardwood Floor Finisher Cardiology 12/21/17 Lamont Michel DO [facility] [address] [place], [place] 140162 Specialty Hardwood Floor Finisher Neurology 08/04/21 [place] [address] [place] [address] Specialty Hardwood Floor Finisher Gastroenterology 08/04/21 [facility] [address] [facility] [address] [place] [phone] Specialty Hardwood Floor Finisher Orthopedics 08/04/21 Accounts Adjustable Clerk Relationship Specialty Start Date End Date Andrew Gonzalez MD [address] [place], [place] 827602 PCP - General Family Medicine 03/05/14 Albina Luong MD [address] [place] [phone] Specialty Hardwood Floor Finisher Cardiology 12/21/17 Lamont Michel DO [facility] [address] [place], [place] 944332 Specialty Hardwood Floor Finisher Neurology 08/04/21 [place] [address] [place], [place] [phone] Specialty Hardwood Floor Finisher Gastroenterology 08/04/21 [facility] [address] [facility] [address] [place] [address] Specialty Hardwood Floor Finisher Orthopedics 08/04/21 Team Status: Active Member Role Status Dates Dr. Andrew Gonzalez MD Family Provider Active Dr. Andrew Gonzalez MD Primary Care Provider Active Team Status: Inactive Member Role Status Dates Dr. Andrew Gonzalez MD Primary Care Provider Active Dr. Tootie Figueroa MD Attending Provider Active Accounts Adjustable Clerk Relationship Specialty Start Date End Date Andrew Gonzalez MD [address] [place], [place] [id number] PCP - General Family Medicine 03/05/14 Albina Luong MD [address] [place] [address]9651302[address]1726 Specialty Hardwood Floor Finisher Cardiology 12/21/17 Lamont Michel DO [facility] [address] [place], [place] 04560212 Specialty Hardwood Floor Finisher Neurology 08/04/21 [place] [address] [place] [address] Specialty Hardwood Floor Finisher Gastroenterology 08/04/21 [facility] [address] [facility] [address] [place] [address] Specialty Hardwood Floor Finisher Orthopedics 08/04/21 Accounts Adjustable Clerk Relationship Specialty Start Date End Date Andrew Gonzalez MD [address] [place], [place] [id number] PCP - General Family Medicine 03/05/14 Albina Luong MD [address] [place] [phone] Specialty Hardwood Floor Finisher Cardiology 12/21/17 Lamont Michel DO [facility] [address] [address] Specialty Hardwood Floor Finisher Neurology 08/04/21 [place] [address] [place] [address] Specialty Hardwood Floor Finisher Gastroenterology 08/04/21 [facility] [address] [facility] [address] [place] [address] Specialty Hardwood Floor Finisher Orthopedics 08/04/21 Accounts Adjustable Clerk Relationship Specialty Start Date End Date Andrew Gonzalez MD [address] [place] [address] PCP - General Family Medicine 03/05/14 Albina Luong MD [address] [place] [address] Specialty Hardwood Floor Finisher Cardiology 12/21/17 Lamont Michel DO [address] [address] Specialty Hardwood Floor Finisher Neurology 08/04/21 [place] [address] [place] [address] Specialty Hardwood Floor Finisher Gastroenterology 08/04/21 [facility] [address] [place] [address] Specialty Hardwood Floor Finisher Orthopedics 08/04/21 Accounts Adjustable Clerk Relationship Specialty [place] [address] [place] [address] [id number] PCP - General Family Medicine 03/05/14 Albina Luong MD [address] [place] [address] Specialty Hardwood Floor Finisher Cardiology 12/21/17 Lamont Michel DO [address] [address] Specialty Hardwood Floor Finisher Neurology 08/04/21 [place] [address] [place] [address] Specialty Hardwood Floor Finisher Gastroenterology 08/04/21 [facility] [address] [place] [address] Specialty Hardwood Floor Finisher Orthopedics 08/04/21 Accounts Adjustable Clerk Relationship Specialty Start Date End Date Andrew Gonzalez MD [address] [place] [address] PCP - General Family Medicine 03/05/14 Albina Luong MD [address] [place] [phone] Specialty Hardwood Floor Finisher Cardiology 12/21/17 Lamont Michel DO [facility] [address] [place] [address] Specialty Hardwood Floor Finisher Neurology 08/04/21 [place] [address] [place] [address] Specialty Hardwood Floor Finisher Gastroenterology 08/04/21 [facility] [address] [place] [address] Specialty Hardwood Floor Finisher Orthopedics 08/04/21 Accounts Adjustable Clerk Relationship Specialty [place] [address] [place] [address] PCP - General Family Medicine 03/05/14 Albina Luong MD [address] [place] [phone] Specialty Hardwood Floor Finisher Cardiology 12/21/17 Lamont Michel DO [facility] [address] [place] [address] Specialty Hardwood Floor Finisher Neurology 08/04/21 [place] [address] [place] [address] Specialty Hardwood Floor Finisher Gastroenterology 08/04/21 Jean Wilcox [address] [place], [place] [phone] Specialty Hardwood Floor Finisher Orthopedics 08/04/21 Accounts Adjustable Clerk Relationship Specialty Start Date End Date Andrew Gonzalez MD [address] [place] [address] PCP - General Family Medicine 03/05/14 Albina Luong MD [address] [place] [phone] Specialty Hardwood Floor Finisher Cardiology 12/21/17 Lamont Michel DO [address] [address] Specialty Hardwood Floor Finisher Neurology 08/04/21 [place] [address] [place] [id number] Specialty Hardwood Floor Finisher Gastroenterology 08/04/21 Jean Wilcox [address] [place], [place] 3612436 Specialty Hardwood Floor Finisher Orthopedics 08/04/21 Accounts Adjustable Clerk Relationship Specialty [place] [address] [place] [address] 724302 PCP - General Family Medicine 03/05/14 Albina Luong MD [address] [place] [address] (Fax) Specialty Hardwood Floor Finisher Cardiology 12/21/17 Lamont Michel DO [place] [address] [place] [address] Specialty Hardwood Floor Finisher Neurology 08/04/21 [place] [address] [place] [address] Specialty Hardwood Floor Finisher Gastroenterology 08/04/21 Jean Wilcox [address] [place] [address] Specialty Hardwood Floor Finisher Orthopedics 08/04/21 Accounts Adjustable Clerk Relationship Specialty Start Date End Date Andrew Gonzalez MD [address] [place] [address] PCP - General Family Medicine 03/05/14 Albina Luong MD [address] [place] [address] Specialty Hardwood Floor Finisher Cardiology 12/21/17 Lamont Michel DO [address] [address] Specialty Hardwood Floor Finisher Neurology 08/04/21 [place] [address] [place] [address] Specialty Hardwood Floor Finisher Gastroenterology 08/04/21 Jean Wilcox [address] [place] [address] Specialty Hardwood Floor Finisher Orthopedics 08/04/21 Accounts Adjustable Clerk Relationship Specialty Start Date End Date Andrew Gonzalez MD [address] [place] [address] PCP - General Family Medicine 03/05/14 Albina Luong MD [address] [place] [address]36 (Fax) Specialty Hardwood Floor Finisher Cardiology 12/21/17 Lamont Michel DO [place] [address] [place] [address] Specialty Hardwood Floor Finisher Neurology 08/04/21 [place] [address] [place] [address] Specialty Hardwood Floor Finisher Gastroenterology 08/04/21 Jean Wilcox [address] [place] [address] Specialty Hardwood Floor Finisher Orthopedics 08/04/21 Accounts Adjustable Clerk Relationship Specialty Start Date End Date Andrew Gonzalez MD [address] [place] [address] PCP - General Family Medicine 03/05/14 Albina Luong MD [address] [place] [address]-1930[address]1726 (Fax) Specialty Hardwood Floor Finisher Cardiology 12/21/17 Lamont Michel DO [address] 707052 Specialty Hardwood Floor Finisher Neurology 08/04/21 [place] [address] [place] [address] Specialty Hardwood Floor Finisher Gastroenterology 08/04/21 Jean Wilcox [address] [place] [address] Specialty Hardwood Floor Finisher Orthopedics 08/04/21 Accounts Adjustable Clerk Relationship Specialty Start Date End Date Andrew Gonzalez MD [address] [place] [address] PCP - General Family Medicine 03/05/14 Albina Luong MD [address] [place] [address] (Fax) Specialty Hardwood Floor Finisher Cardiology 12/21/17 Lamont Michel DO [place] [address] [place], [place] [id number] Specialty Hardwood Floor Finisher Neurology 08/04/21 [place] [address] [place] [address] Specialty Hardwood Floor Finisher Gastroenterology 08/04/21 Jena Wilcox [address] [place] [address] Specialty Hardwood Floor Finisher Orthopedics 08/04/21 Accounts Adjustable Clerk Relationship Specialty [place] [address] [place] [address] PCP - General Family Medicine 03/05/14 Albina Luong MD [address] [place] [address] Specialty Hardwood Floor Finisher Cardiology 12/21/17 Lamont Michel DO [place] [address] [place], [place] 73276212 Specialty Hardwood Floor Finisher Neurology 08/04/21 [place] [address] [place] [id number] Specialty Hardwood Floor Finisher Gastroenterology 08/04/21 Jean Wilcox [address] [place] [address] Specialty Hardwood Floor Finisher Orthopedics 08/04/21 Accounts Adjustable Clerk Relationship Specialty Start Date End Date Andrew Gonzalez MD [address] [place] [address] PCP - General Family Medicine 03/05/14 Albina Luong MD [address] [place] [address] (Fax) Specialty Hardwood Floor Finisher Cardiology 12/21/17 Lamont Michel DO [facility] [address] [place] [address] Specialty Hardwood Floor Finisher Neurology 08/04/21 [place] [address] [place] [address] Specialty Hardwood Floor Finisher Gastroenterology 08/04/21 Jean Wilcox [address] [place] [address] Specialty Hardwood Floor Finisher Orthopedics 08/04/21 Accounts Adjustable Clerk Relationship Specialty Start Date End Date Andrew Gonzalez MD [address] [place] [address] 625962 PCP - General Family Medicine 03/05/14 Albina Luong MD [address] [place] [address] Specialty Hardwood Floor Finisher Cardiology 12/21/17 Lamont Michel DO [facility] [address] [place], [place] 95383212 Specialty Hardwood Floor Finisher Neurology 08/04/21 [place] [address] [place], [place] 5223536 Specialty Hardwood Floor Finisher Gastroenterology 08/04/21 Jean Wilcox [address] [place], [place] 1430036 Specialty Hardwood Floor Finisher Orthopedics 08/04/21 Team Status: Inactive Member Role Status Dates Dr. Andrew Gonzalez MD Primary Care Provider, Referrin g Provider Active Dr. Tootie Figueroa MD Attending Provider Active Team Status: Inactive Member Role Status Dates Dr. Andrew Gonzalez MD Primary Care Provider Active Dr. Tootie Figueroa MD Attending Provider, Referr ing Provider Active Accounts Adjustable Clerk Relationship Specialty Start Date End Date James Harry [address] [place], [place] [id number] PCP - General Family Medicine 11/29/23 Albina Luong MD [address] [address] Specialty Hardwood Floor Finisher Cardiology 12/21/17 Lamont Michel DO [facility] [address] [place], [place] [id number] Specialty Hardwood Floor Finisher Neurology 08/04/21 Jose [place] [id number] [place] [address] Specialty Hardwood Floor Finisher Gastroenterology 08/04/21 Albina Anton V [address] [facility] [place] [address] Specialty Hardwood Floor Finisher Internal Medicine 10/20/23 Accounts Adjustable Clerk Relationship Specialty Start Date End Date James Harry DO [address] [place] [address] PCP - General Family Medicine 11/29/23 Albina Luong MD [address] [place] [address] Specialty Hardwood Floor Finisher Cardiology 12/21/17 Lamont Michel DO [facility] [address] [place], [place] 40056212 Specialty Hardwood Floor Finisher Neurology 08/04/21 [place] [address] [place], [place] 0983036 Specialty Hardwood Floor Finisher Gastroenterology 08/04/21 Albina Anton V [address] [place] [address]6946691[address]12[address] Specialty Hardwood Floor Finisher Internal Medicine 10/20/23 Accounts Adjustable Clerk Relationship Specialty Start Date End Date James Harry DO [address] [place] [address] PCP - General Family Medicine 11/29/23 Albina Luong MD [address] [place] [address] Specialty Hardwood Floor Finisher Cardiology 12/21/17 Lamont Michel DO [facility] [address] [place], [place] 79973212 Specialty Hardwood Floor Finisher Neurology 08/04/21 [place] [address] [place] [address] Specialty Hardwood Floor Finisher Gastroenterology 08/04/21 Albina Anton V [address] [place] [address]12[address] Specialty Hardwood Floor Finisher Internal Medicine 10/20/23 Accounts Adjustable Clerk Relationship Specialty Start Date End Date NancyJoaquín berryelDO [address] [place], [place] 244942 PCP - General Family Medicine 11/29/23 Albina Luong MD [address] [place] [address] Specialty Hardwood Floor Finisher Cardiology 12/21/17 Lamont Michel DO [facility] [address] [place], [place] 82741212 Specialty Hardwood Floor Finisher Neurology 08/04/21 [place] [address] [place] [address] Specialty Hardwood Floor Finisher Gastroenterology 08/04/21 Albina Anton [address] [place] [address]1691[address]1248 Specialty Hardwood Floor Finisher Internal Medicine 10/20/23 Accounts Adjustable Clerk Relationship Specialty Start Date End Date Nancy JamesDO [address] [place], [place] 259082 PCP - General Family Medicine 11/29/23 Albina Luong MD [address] [place] [address] Specialty Hardwood Floor Finisher Cardiology 12/21/17 Lamont Michel DO [place] [address] [place], [place] 048392 Specialty Hardwood Floor Finisher Neurology 08/04/21 [place] [address] [place] [address] Specialty Hardwood Floor Finisher Gastroenterology 08/04/21 Albina Anton V [address] [place] [address]-7307691[address]1248 Specialty Hardwood Floor Finisher Internal Medicine 10/20/23 Accounts Adjustable Clerk Relationship Specialty Start Date End Date James Harry DO [address] [place] [address] 254092 PCP - General Family Medicine 11/29/23 Albina Luong MD [address] [facility] [address] [place] [address] Specialty Hardwood Floor Finisher Cardiology 12/21/17 Lamont Michel DO [address] 179132 Specialty Hardwood Floor Finisher Neurology 08/04/21 [place] [address] [place] [address] Specialty Hardwood Floor Finisher Gastroenterology 08/04/21 Albina Anton V [address] [place] [address]-9866691[address]1248 Specialty Hardwood Floor Finisher Internal Medicine 10/20/23 Accounts Adjustable Clerk Relationship Specialty Start Date End Date James Harry DO [address] [place], [place] 141762 PCP - General Family Medicine 11/29/23 Albina Luong MD [address] [place] [address]-9769[address]1726 Specialty Hardwood Floor Finisher Cardiology 12/21/17 Lamont Michel DO [place] [address] [place], [place] 641602 Specialty Hardwood Floor Finisher Neurology 08/04/21 [place] [address] [place], [place] 9859036 Specialty Hardwood Floor Finisher Gastroenterology 08/04/21 Albina [place] [address] Specialty Hardwood Floor Finisher Internal Medicine 10/20/23 Accounts Adjustable Clerk Relationship Specialty Start Date End Date James HarryDO [address] [place] [address] PCP - General Family Medicine 11/29/23 Albina Luong MD [address] [place] [address]7088[address]1726 Specialty Hardwood Floor Finisher Cardiology 12/21/17 Lamont Michel DO [place] [address] [place], [place] 840672 Specialty Hardwood Floor Finisher Neurology 08/04/21 [place] [address] [place], [place] 5361136 Specialty Hardwood Floor Finisher Gastroenterology 08/04/21 Albina Anton V [address] [facility] [place] [address]7234691[address]1248 Specialty Hardwood Floor Finisher Internal Medicine 10/20/23 Accounts Adjustable Clerk Relationship Specialty Start Date End Date James Harry DO [address] [place] [address] PCP - General Family Medicine 11/29/23 Albina Luong MD [address] [phone] Specialty Hardwood Floor Finisher Cardiology 12/21/17 Lamont Michel DO [facility] [address] [place], [place] 300682 Specialty Hardwood Floor Finisher Neurology 08/04/21 [place] [address] [place], [place] 5193236 Specialty Hardwood Floor Finisher Gastroenterology 08/04/21 Albina Anton V [address] [facility] [place] [address]9694691[address]1248 Specialty Hardwood Floor Finisher Internal Medicine 10/20/23 Team Status: Inactive Member Role Status Dates Dr. Andrew Gonzalez MD Primary Care Provider, Referrin g Provider Active TANISHA Humphreys Attending Provider Active Team Status: Inactive Member Role Status Dates Dr. Andrew Gonzalez MD Primary Care Provider Active TANISHA Humphreys Attending Provider Active Accounts Adjustable Clerk Relationship Specialty Start Date End Date James Harry DO [address] [place] [address] PCP - General Family Medicine 11/29/23 Albina Luong MD [address] [place] [address] Specialty Hardwood Floor Finisher Cardiology 12/21/17 Lamont Michel DO [place] [address] [place] [address] Specialty Hardwood Floor Finisher Neurology 08/04/21 [place] [address] [place] [address] Specialty Hardwood Floor Finisher Gastroenterology 08/04/21 Albina Anton [address] [place] [address]-0496691-1248 Specialty Hardwood Floor Finisher Internal Medicine 10/20/23 Accounts Adjustable Clerk Relationship Specialty Start Date End Date James Harry DO [address] [place] [address] PCP - General Family Medicine 11/29/23 Albina Luong MD [address] [place] [address]0991302[address]1726 Specialty Hardwood Floor Finisher Cardiology 12/21/17 Lamont Michel DO [address] [address] Specialty Hardwood Floor Finisher Neurology 08/04/21 [place] [address] [place] [address] Specialty Hardwood Floor Finisher Gastroenterology 08/04/21 Albina Anton V [address] [place] [phone] Specialty Hardwood Floor Finisher Internal Medicine 10/20/23 Accounts Adjustable Clerk Relationship Specialty Start Date End Date James Harry DO [address] [facility] [place] [address] PCP - General Family Medicine 11/29/23 Albina Luong MD [address] [place] [phone] (Fax) Specialty Hardwood Floor Finisher Cardiology 12/21/17 Lamont Michel DO [facility] [address] [place], [place] 738562 Specialty Hardwood Floor Finisher Neurology 08/04/21 [place] [address] [place], [place] [phone] Specialty Hardwood Floor Finisher Gastroenterology 08/04/21 Albina Anton V [address] [place] [address] [place] [address] Specialty Hardwood Floor Finisher Internal Medicine 10/20/23 Accounts Adjustable Clerk Relationship Specialty Start Date End Date James Harry DO [address] [facility] [address] PCP - General Family Medicine 11/29/23 Albina Luong MD [address] [place] [address] Specialty Hardwood Floor Finisher Cardiology 12/21/17 Lamont Michel DO [facility] [address] [place], [place] 800552 Specialty Hardwood Floor Finisher Neurology 08/04/21 [place] [address] [place] [address] Specialty Hardwood Floor Finisher Gastroenterology 08/04/21 Albina Anton V [address] [place] [address] Specialty Hardwood Floor Finisher Internal Medicine 10/20/23 Accounts Adjustable Clerk Relationship Specialty Start Date End Date James Harry DO [address] [place], [place] 781292 PCP - General Family Medicine 11/29/23 Albina Luong MD [address] [place] [address] Specialty Hardwood Floor Finisher Cardiology 12/21/17 Lamont Michel DO [facility] [address] [place], [place] [id number] Specialty Hardwood Floor Finisher Neurology 08/04/21 [place] [address] [place] [address] Specialty Hardwood Floor Finisher Gastroenterology 08/04/21 Albina Anton V [address] [place] [address]5670691[address]1248 Specialty Hardwood Floor Finisher Internal Medicine 10/20/23 Accounts Adjustable Clerk Relationship Specialty Start Date End Date James Harry DO [address] [place], [place] [id number] PCP - General Family Medicine 11/29/23 Albina Luong MD [address] [place] [phone] Specialty Hardwood Floor Finisher Cardiology 12/21/17 Lamont Michel DO [facility] [address] [place], [place] 508012 Specialty Hardwood Floor Finisher Neurology 08/04/21 [place] [address] [place] [address] Specialty Hardwood Floor Finisher Gastroenterology 08/04/21 Albina Anton V [address] [place] [address]-2396691-1248 Specialty Hardwood Floor Finisher Internal Medicine 10/20/23 Accounts Adjustable Clerk Relationship Specialty Start Date End Date James Harry DO [facility]4 [place], [place] 506232 PCP - General Family Medicine 11/29/23 Albina Luong MD [address] [place] [phone] Specialty Hardwood Floor Finisher Cardiology 12/21/17 Lamont Michel DO [facility] [address] [place], [place] 127502 Specialty Hardwood Floor Finisher Neurology 08/04/21 [place] [address] [place] [address] Specialty Hardwood Floor Finisher Gastroenterology 08/04/21 Albina Anton V [address] [place] [address]-1996691[address]12[address] Specialty Hardwood Floor Finisher Internal Medicine 10/20/23 Accounts Adjustable Clerk Relationship Specialty Start Date End Date James Harry DO [address] [place], [place] [id number] PCP - General Family Medicine 11/29/23 Albina Luong MD [address] [place] [address] [place] [address] Specialty Hardwood Floor Finisher Cardiology 12/21/17 Lamont Michel DO [facility] [address] [place] [address] Specialty Hardwood Floor Finisher Neurology 08/04/21 [place] [address] [place], [place] 1069936 Specialty Hardwood Floor Finisher Gastroenterology 08/04/21 Albina Anton V [address] [place] [address]-8708691-1248 Specialty Hardwood Floor Finisher Internal Medicine 10/20/23 Accounts Adjustable Clerk Relationship Specialty Start Date End Date Nancy JamesDO camila [address] [place], [place] 872072 PCP - General Family Medicine 11/29/23 Albina Luong MD [address] [place] [address] [place] [address] Specialty Hardwood Floor Finisher Cardiology 12/21/17 Lamont Michel DO [facility] [address] [place], [place] 605552 Specialty Hardwood Floor Finisher Neurology 08/04/21 [place] [address] [place] [address] Specialty Hardwood Floor Finisher Gastroenterology 08/04/21 Albina Anton V [address] [place] [address]-6285691-12[address] Specialty Hardwood Floor Finisher Internal Medicine 10/20/23 Accounts Adjustable Clerk Relationship Specialty Start Date End Date James Harry DO [address] [place], [place] 289962 PCP - General Family Medicine 11/29/23 Albina Luong MD [address] [place] [place] [address] Specialty Hardwood Floor Finisher Cardiology 12/21/17 Lamont Michel DO [address] [id number] Specialty Hardwood Floor Finisher Neurology 08/04/21 [place] [address] [place], [place] 3353436 Specialty Hardwood Floor Finisher Gastroenterology 08/04/21 Albina Anton V [address] [place] [address]-9922691-1248 Specialty Hardwood Floor Finisher Internal Medicine 10/20/23 Accounts Adjustable Clerk Relationship Specialty Start Date End Date James Harry DO [address] [place], [place] 229142 PCP - General Family Medicine 11/29/23 Albina Luong MD [address] [place] [address] [place] [address] Specialty Hardwood Floor Finisher Cardiology 12/21/17 Lamont Michel DO [place] [place] [address] [place], [place] [id number] Specialty Hardwood Floor Finisher Neurology 08/04/21 [place] [address] [place] [address] Specialty Hardwood Floor Finisher Gastroenterology 08/04/21 Albina Anton V [address] [place] [address]5630691-1248 Specialty Hardwood Floor Finisher Internal Medicine 10/20/23 Accounts Adjustable Clerk Relationship Specialty Start Date End Date Nancy JamesDO [address] [place], [place] 397602 PCP - General Family Medicine 11/29/23 Albina Luong MD [address] [place] [address]-3470302-1726 Specialty Hardwood Floor Finisher Cardiology 12/21/17 Lamont Michel DO [facility] [address] [place], [place] [id number] Specialty Hardwood Floor Finisher Neurology 08/04/21 [place] [address] [place] [address] Specialty Hardwood Floor Finisher Gastroenterology 08/04/21 Albina Anton V [address] [place] [address]4712691-1248 Specialty Hardwood Floor Finisher Internal Medicine 10/20/23 Accounts Adjustable Clerk Relationship Specialty Start Date End Date Nancy JamesDO [address] [place], [place] 215062 PCP - General Family Medicine 11/29/23 Albina Luong MD [address] [place] [address] [place] [address]3139302[address]1726 Specialty Hardwood Floor Finisher Cardiology 12/21/17 Lamont Michel DO [facility] [address] [place], [place] [id number] Specialty Hardwood Floor Finisher Neurology 08/04/21 [place] [address] [place], [place] 2187936 Specialty Hardwood Floor Finisher Gastroenterology 08/04/21 Albina Anton V [address] [place] [address]-8971691-12[address] Specialty Hardwood Floor Finisher Internal Medicine 10/20/23 Deven Logan MD [address] [place] [address] Physician Office [place], [place] [phone] Specialty Hardwood Floor Finisher Allergy 05/25/24 Accounts Adjustable Clerk Relationship Specialty Start Date End Date James HarryDO [address] [place], [place] [id number] PCP - General Family Medicine 11/29/23 Albina Luong MD [address] [place] [address] Specialty Hardwood Floor Finisher Cardiology 12/21/17 Lamont Michel DO [facility] [address] [place], [place] 797792 Specialty Hardwood Floor Finisher Neurology 08/04/21 [place] [address] [place] [address] Specialty Hardwood Floor Finisher Gastroenterology 08/04/21 Albina Anton V [address] [place] [address]-0969691-1248 Specialty Hardwood Floor Finisher Internal Medicine 10/20/23 Deven Logan MD 224 [facility] Physician Office [place], [place] [phone] Specialty Hardwood Floor Finisher Allergy 05/25/24 Accounts Adjustable Clerk Relationship Specialty Start Date End Date Nancy, JamesDO [address] [place] [address] PCP - General Family Medicine 11/29/23 Albina Luong MD [address] [address] Specialty Hardwood Floor Finisher Cardiology 12/21/17 Lamont Michel DO [facility] [address] [place], [place] 047282 Specialty Hardwood Floor Finisher Neurology 08/04/21 [place] [address] [place], [place] 9093036 Specialty Hardwood Floor Finisher Gastroenterology 08/04/21 Albina Anton V [facility] [place] [address]-9020691-1248 Specialty Hardwood Floor Finisher Internal Medicine 10/20/23 Accounts Adjustable Clerk Relationship Specialty Start Date End Date James Harry DO [address] [place], [place] [id number] PCP - General Family Medicine 11/29/23 Albina Luong MD [address] [address] Specialty Hardwood Floor Finisher Cardiology 12/21/17 Lamont Michel DO [facility] [address] [place], [place] 67731212 Specialty Hardwood Floor Finisher Neurology 08/04/21 [place] [address] [place], [place] 3321636 Specialty Hardwood Floor Finisher Gastroenterology 08/04/21 Albina Anton V [address] [place] [address]-2344691-1248 Specialty Hardwood Floor Finisher Internal Medicine 10/20/23 Deven Logan MD [address] [place] [address] [place] [address] Specialty Hardwood Floor Finisher Allergy 05/25/24 Accounts Adjustable Clerk Relationship Specialty Start Date End Date James Harry DO [address] [place], [place] 421432 PCP - General Family Medicine 11/29/23 Albina Luong MD [address] [place] [address] Specialty Hardwood Floor Finisher Cardiology 12/21/17 Lamont Michel DO [facility] [address] [place], [place] 711112 Specialty Hardwood Floor Finisher Neurology 08/04/21 [place] [address] [place] [address] Specialty Hardwood Floor Finisher Gastroenterology 08/04/21 Albina Anton V [address] [place] [address]-6202691-1248 Specialty Hardwood Floor Finisher Internal Medicine 10/20/23 Deven Logan MD 224 [facility] [place] [address] Specialty Hardwood Floor Finisher Allergy 05/25/24 Accounts Adjustable Clerk Relationship Specialty Start Date End Date Nancy JamesDO [address]4 [place] [address] PCP - General Family Medicine 11/29/23 Albina Luong MD [address] [phone] Specialty Hardwood Floor Finisher Cardiology 12/21/17 Lamont Michel DO [facility] [address] [place], [place] 34427212 Specialty Hardwood Floor Finisher Neurology 08/04/21 [place] [address] [place], [place] 4982736 Specialty Hardwood Floor Finisher Gastroenterology 08/04/21 Albina Anton V [address] [place] [address]-1919691-1248 Specialty Hardwood Floor Finisher Internal Medicine 10/20/23 Deven Logan MD 224 [facility] [address] Specialty Hardwood Floor Finisher Allergy 05/25/24 Accounts Adjustable Clerk Relationship Specialty Start Date End Date Nancy, JamesDO [address]4 [place] [address] PCP - General Family Medicine 11/29/23 Albina Luong MD [address] [place] [address] [place] [address] Specialty Hardwood Floor Finisher Cardiology 12/21/17 Lamont Michel DO [place] [address] [place], [place] 297602 Specialty Hardwood Floor Finisher Neurology 08/04/21 [place] [address] [place] [address] Specialty Hardwood Floor Finisher Gastroenterology 08/04/21 Albina Anton V [address] [place] [address]-6783691-1248 Specialty Hardwood Floor Finisher Internal Medicine 10/20/23 Deven Logan MD [address] [place] [address] [place] [address] Specialty Hardwood Floor Finisher Allergy 05/25/24 Accounts Adjustable Clerk Relationship Specialty Start Date End Date Andrew Gonzalez MD [address] [place] [address] 785172 PCP - General Family Medicine 03/05/14 11/28/23 Albina Luong MD [address] [place] [address] [place] [address] Specialty Hardwood Floor Finisher Cardiology 12/21/17 Lamont Michel DO [facility] 357[address] [place] [address] Specialty Hardwood Floor Finisher Neurology 08/04/21 [place] [address] [place] [address] Specialty Hardwood Floor Finisher Gastroenterology 08/04/21 Jean Wilcox [address] [place], [place] 0666836 Specialty Hardwood Floor Finisher Orthopedics 08/04/21 10/18/23 Accounts Adjustable Clerk Relationship Specialty Start Date End Date Andrew Gonzalez MD [address] [place] [address] PCP - General Family Medicine 03/05/14 11/28/23 Albina Luong MD [address] [place] [address] [place] [address] Specialty Hardwood Floor Finisher Cardiology 12/21/17 Lamont Michel DO [facility] [address] [place] [address] Specialty Hardwood Floor Finisher Neurology 08/04/21 [place] [address] [place] [id number] Specialty Hardwood Floor Finisher Gastroenterology 08/04/21 Jean Wilcox [address] [place] [address] Specialty Hardwood Floor Finisher Orthopedics 08/04/21 10/18/23 Accounts Adjustable Clerk Relationship Specialty Start Date End Date James Harry DO [address] [place], [place] 916542 PCP - General Family Medicine 11/29/23 Albina Luong MD [address] [place] [address] Specialty Hardwood Floor Finisher Cardiology 12/21/17 Lamont Michel DO [facility] [address] [place], [place] 417892 Specialty Hardwood Floor Finisher Neurology 08/04/21 [place] [address] [place] [address] Specialty Hardwood Floor Finisher Gastroenterology 08/04/21 Albina Anton V [facility] [place] [address] Specialty Hardwood Floor Finisher Internal Medicine 10/20/23 Deven Logan MD [address] [place] [address] [place] [address] Specialty Hardwood Floor Finisher Allergy 05/25/24 Accounts Adjustable Clerk Relationship Specialty Start Date End Date Andrew Gonzalez MD [address] [place] [address] [id number] PCP - General Family Medicine 03/05/14 11/28/23 Albina Luong MD [address] [place] [phone] Specialty Hardwood Floor Finisher Cardiology 12/21/17 Lamont Michel DO [facility] 3574 [place] [address] Specialty Hardwood Floor Finisher Neurology 08/04/21 [place] [address] [place], [place] 5003136 Specialty Hardwood Floor Finisher Gastroenterology 08/04/21 Jean Wilcox [address] [place], [place] 8305436 Specialty Hardwood Floor Finisher Orthopedics 08/04/21 10/18/23 Accounts Adjustable Clerk Relationship Specialty Start Date End Date James Harry DO [address] [place], [place] 735102 PCP - General Family Medicine 11/29/23 Albina Luong MD [address] [place] [address] [place] [address] Specialty Hardwood Floor Finisher Cardiology 12/21/17 Lamont Michel DO [facility] [address] [place], [place] 084832 Specialty Hardwood Floor Finisher Neurology 08/04/21 [place] [address] [place], [place] 9450036 Specialty Hardwood Floor Finisher Gastroenterology 08/04/21 Albina Anton V [address] [place] [address]-2276691-1248 Specialty Hardwood Floor Finisher Internal Medicine 10/20/23 Deven Logan MD 224 [facility] Physician Office [place], [place] [phone] Specialty Hardwood Floor Finisher Allergy 05/25/24 Accounts Adjustable Clerk Relationship Specialty Start Date End Date James Harry DO [address] [place], [place] 104562 PCP - General Family Medicine 11/29/23 Albina Luong MD [address] [place] [address] [place] [address] Specialty Hardwood Floor Finisher Cardiology 12/21/17 Lamont Michel DO [facility] [address] [place], [place] 928582 Specialty Hardwood Floor Finisher Neurology 08/04/21 [place] [address] [place] [address] Specialty Hardwood Floor Finisher Gastroenterology 08/04/21 Albina Anton V [address] [place] [address]-8911691-1248 Specialty Hardwood Floor Finisher Internal Medicine 10/20/23 Deven Logan MD [address] [place] [address] Physician Office [place], [place] [phone] Specialty Hardwood Floor Finisher Allergy 05/25/24 Accounts Adjustable Clerk Relationship Specialty Start Date End Date James Harry DO [address] [place] [address] PCP - General Family Medicine 11/29/23 Albina Luong MD [address] [place] [phone] Specialty Hardwood Floor Finisher Cardiology 12/21/17 Lamont Michel DO [facility] 3574 [place] [address] Specialty Hardwood Floor Finisher Neurology 08/04/21 [place] [address] [place] [address] Specialty Hardwood Floor Finisher Gastroenterology 08/04/21 Albina Anton V [address] [address]-5679691-1248 Specialty Hardwood Floor Finisher Internal Medicine 10/20/23 Accounts Adjustable Clerk Relationship Specialty Start Date End Date James Harry DO [address] [place], [place] 242212 PCP - General Family Medicine 11/29/23 Albina Luong MD [address] [place] [address] Specialty Hardwood Floor Finisher Cardiology 12/21/17 Lamont Michel DO [place] [address] [place], [place] 832462 Specialty Hardwood Floor Finisher Neurology 08/04/21 [place] [address] [place], [place] 4812436 Specialty Hardwood Floor Finisher Gastroenterology 08/04/21 Albina Anton V [address] [facility] [address]-1422691-1248 Specialty Hardwood Floor Finisher Internal Medicine 10/20/23 Deven Logan MD 224 [facility] [place] [address] Specialty Hardwood Floor Finisher Allergy 05/25/24 Accounts Adjustable Clerk Relationship Specialty Start Date End Date James Harry DO [address] [place] [address] PCP - General Family Medicine 11/29/23 Albina Luong MD [address] [place] [address] Specialty Hardwood Floor Finisher Cardiology 12/21/17 Lamont Michel DO [facility] [address] [place] [address] Specialty Hardwood Floor Finisher Neurology 08/04/21 [place] [address] [place], [place] 5097936 Specialty Hardwood Floor Finisher Gastroenterology 08/04/21 Albina Anton V [address] [place] [address]-2501691-1248 Specialty Hardwood Floor Finisher Internal Medicine 10/20/23 Deven Logan MD [address] [place] [address] Physician Office [place], [place] [phone] Specialty Hardwood Floor Finisher Allergy 05/25/24 Accounts Adjustable Clerk Relationship Specialty Start Date End Date James Harry DO [address] [place] [address] PCP - General Family Medicine 11/29/23 Albina Luong MD [address] [place] [address] Specialty Hardwood Floor Finisher Cardiology 12/21/17 Lamont Michel DO [facility] [address] [place], [place] 809892 Specialty Hardwood Floor Finisher Neurology 08/04/21 [place] [address] [place] [address] Specialty Hardwood Floor Finisher Gastroenterology 08/04/21 Albina Anton V [address] [place] [address]-3244691-1248 Specialty Hardwood Floor Finisher Internal Medicine 10/20/23 Deven Logan MD 224 [facility] [place] [address] Specialty Hardwood Floor Finisher Allergy 05/25/24 Accounts Adjustable Clerk Relationship Specialty Start Date End Date James Harry DO [address] [place] [address] PCP - General Family Medicine 11/29/23 Albina Luong MD [address] [place] [address] Specialty Hardwood Floor Finisher Cardiology 12/21/17 Lamont Michel DO [facility] [address] [place], [place] 14311212 Specialty Hardwood Floor Finisher Neurology 08/04/21 [place] [address] [place], [place] 2195336 Specialty Hardwood Floor Finisher Gastroenterology 08/04/21 Albina Anton V [address] [place] [address]12[address] Specialty Hardwood Floor Finisher Internal Medicine 10/20/23 Deven Logan MD 224 [facility] [place] [address] Specialty Hardwood Floor Finisher Allergy 05/25/24 Accounts Adjustable Clerk Relationship Specialty Start Date End Date James Harry DO [address] [place] [address] PCP - General Family Medicine 11/29/23 Albina Luong MD [address] [place] [address]-1703302-1726 Specialty Hardwood Floor Finisher Cardiology 12/21/17 Lamont iMchel DO [facility] [address] [place], [place] 64282212 Specialty Hardwood Floor Finisher Neurology 08/04/21 [place] [address] [place], [place] 4312236 Specialty Hardwood Floor Finisher Gastroenterology 08/04/21 Albina Anton V [address] [place] [address]-0778691-1248 Specialty Hardwood Floor Finisher Internal Medicine 10/20/23 Deven Logan MD [address] [place] [address] Physician Office [place], [place] [phone] Specialty Hardwood Floor Finisher Allergy 05/25/24 Accounts Adjustable Clerk Relationship Specialty Start Date End Date Nancy JamesDO [address]4 [place] [address] PCP - General Family Medicine 11/29/23 Albina Luong MD [address] [place] [address] Specialty Hardwood Floor Finisher Cardiology 12/21/17 Lamont Michel DO [facility] [address] [place], [place] 53565212 Specialty Hardwood Floor Finisher Neurology 08/04/21 [place] [address] [place] [address] Specialty Hardwood Floor Finisher Gastroenterology 08/04/21 Albina Anton V [address] [address] Specialty Hardwood Floor Finisher Internal Medicine 10/20/23 Deven Logan MD 224 [facility] [place] [address] Specialty Hardwood Floor Finisher Allergy 05/25/24 Accounts Adjustable Clerk Relationship Specialty Start Date End Date James Harry DO [address] [place], [place] 846522 PCP - General Family Medicine 11/29/23 Albina Luong MD [address] [phone] Specialty Hardwood Floor Finisher Cardiology 12/21/17 Lamont Michel DO [facility] [address] [place], [place] 67596212 Specialty Hardwood Floor Finisher Neurology 08/04/21 [place] [address] [place] [address] Specialty Hardwood Floor Finisher Gastroenterology 08/04/21 Albina Anton V [address] [facility] [address] Specialty Hardwood Floor Finisher Internal Medicine 10/20/23 Deven Logan MD 224 [facility] [address] Specialty Hardwood Floor Finisher Allergy 05/25/24 Accounts Adjustable Clerk Relationship Specialty Start Date End Date James Harry DO [address] [place], [place] 672912 PCP - General Family Medicine 11/29/23 Albina Luong MD [address] [place] [address] Specialty Hardwood Floor Finisher Cardiology 12/21/17 Lamont Michel DO [facility] [address] [place], [place] 647702 Specialty Hardwood Floor Finisher Neurology 08/04/21 [place] [address] [place] [address] Specialty Hardwood Floor Finisher Gastroenterology 08/04/21 Albina Anton V [address] [place] [address]-6953691-1248 Specialty Hardwood Floor Finisher Internal Medicine 10/20/23 Deven Logan MD 224 [facility] [place] [address] Specialty Hardwood Floor Finisher Allergy 05/25/24 Accounts Adjustable Clerk Relationship Specialty Start Date End Date James Harry DO [facility]4 [place] [address] PCP - General Family Medicine 11/29/23 Albina Luong MD [address] [address] Specialty Hardwood Floor Finisher Cardiology 12/21/17 Lamont Michel DO [place] [address] [place] [address] Specialty Hardwood Floor Finisher Neurology 08/04/21 [place] [address] [place] [address] Specialty Hardwood Floor Finisher Gastroenterology 08/04/21 Albina Anton V [address] [place] [address]-6894691-1248 Specialty Hardwood Floor Finisher Internal Medicine 10/20/23 Deven Logan MD 224 [facility] [place] [address] Specialty Hardwood Floor Finisher Allergy 05/25/24 Accounts Adjustable Clerk Relationship Specialty Start Date End Date James Harry DO [address] [place] [address] PCP - General Family Medicine 11/29/23 Albina Luong MD [address] [phone] Specialty Hardwood Floor Finisher Cardiology 12/21/17 Lamont Michel DO [facility] [address] [place] [address] Specialty Hardwood Floor Finisher Neurology 08/04/21 [place] [address] [place] [address] Specialty Hardwood Floor Finisher Gastroenterology 08/04/21 Albina Atnon V [address] [place] [address] Specialty Hardwood Floor Finisher Internal Medicine 10/20/23 Deven Logan MD 224 [facility] [address] Specialty Hardwood Floor Finisher Allergy 05/25/24 Lucio Glasgow APRN.ASBESTOS MICROSCOPIST [address] [place], [place] 736282 Embroidery Supervisor Family Medicine 09/10/24 Accounts Adjustable Clerk Relationship Specialty Start Date End Date Nancy JamesDO 3574 [place], [place] 131182 PCP - General Family Medicine 11/29/23 Albina Luong MD [address] [address] Specialty Hardwood Floor Finisher Cardiology 12/21/17 Lamont Michel DO [facility] 357[address] [place] [address] Specialty Hardwood Floor Finisher Neurology 08/04/21 [place] [address] [place], [place] 1728036 Specialty Hardwood Floor Finisher Gastroenterology 08/04/21 Albina Anton V [address] [place] [address]-2529691-1248 Specialty Hardwood Floor Finisher Internal Medicine 10/20/23 Deven Logan MD 224 [facility] [place] [address] Specialty Hardwood Floor Finisher Allergy 05/25/24 Lucio Glasgow APRN.ASBESTOS MICROSCOPIST [address] [place], [place] 491372 Embroidery Supervisor Family Medicine 09/10/24 Accounts Adjustable Clerk Relationship Specialty Start Date End Date James Harry DO [address] [place], [place] 759672 PCP - General Family Medicine 11/29/23 Albina Luong MD [address] [place] [address] Specialty Hardwood Floor Finisher Cardiology 12/21/17 Lamont Michel DO [facility] 357[address] [place] [address] Specialty Hardwood Floor Finisher Neurology 08/04/21 [place] [address] [place], [place] 7215036 Specialty Hardwood Floor Finisher Gastroenterology 08/04/21 Albina Anton V [address] [place] [address]-2390691-1248 Specialty Hardwood Floor Finisher Internal Medicine 10/20/23 Deven Logan MD 224 [facility] Physician Office [place], [place] [phone] Specialty Hardwood Floor Finisher Allergy 05/25/24 Lucio Glasgow APRN.CNP [address] [place] [address] Embroidery Supervisor Family Medicine 09/10/24 Accounts Adjustable Clerk Relationship Specialty Start Date End Date James Harry DO [address] [place], [place] 012692 PCP - General Family Medicine 11/29/23 Albina Luong MD [address] [place] [address] Specialty Hardwood Floor Finisher Cardiology 12/21/17 Lamont Michel DO [facility] [address] [place] [address] Specialty Hardwood Floor Finisher Neurology 08/04/21 [place] [address] [place], [place] 1402936 Specialty Hardwood Floor Finisher Gastroenterology 08/04/21 Albina Anton V [facility] [place] [address]23891248 Specialty Hardwood Floor Finisher Internal Medicine 10/20/23 Deven Logan MD [address] [place] [address] Physician Office [place], [place] [phone] Specialty Hardwood Floor Finisher Allergy 05/25/24 Lucio Glasgow APRN.ASBESTOS MICROSCOPIST [address] [place] [address] Embroidery Supervisor Family Medicine 09/10/24 Accounts Adjustable Clerk Relationship Specialty Start Date End Date James Harry DO [facility]4 [place] [address] PCP - General Family Medicine 11/29/23 Albina Luong MD [address] [place] [phone] Specialty Hardwood Floor Finisher Cardiology 12/21/17 Lamont Michel DO [facility] [address] [place] [address] Specialty Hardwood Floor Finisher Neurology 08/04/21 [place] [address] [place] [address] Specialty Hardwood Floor Finisher Gastroenterology 08/04/21 Albina Anton V [address] [place] [phone] Specialty Hardwood Floor Finisher Internal Medicine 10/20/23 Deven Logan MD [address] [place] [address] Office [place], [place] [phone] Specialty Hardwood Floor Finisher Allergy 05/25/24 Lucio Glasgow APRN.ASBESTOS MICROSCOPIST [address] [place], [place] [phone] Embroidery Supervisor Family Medicine 09/10/24 Accounts Adjustable Clerk Relationship Specialty Start Date End Date James Harry DO [address] [place] [address] PCP - General Family Medicine 11/29/23 Albina Luong MD [address] [address] Specialty Hardwood Floor Finisher Cardiology 12/21/17 Lmaont Michel DO [facility] [address] [place], [place] [phone] Specialty Hardwood Floor Finisher Neurology 08/04/21 [place] [address] [place], [place] 9926936 Specialty Hardwood Floor Finisher Gastroenterology 08/04/21 Albina Anton V [address] [place] [phone] Specialty Hardwood Floor Finisher Internal Medicine 10/20/23 Deven Logan MD 224 [facility] [place] [address] Specialty Hardwood Floor Finisher Allergy 05/25/24 Lucio Glasgow APRN.ASBESTOS MICROSCOPIST [address] [place] [address] Embroidery Supervisor Family Medicine 09/10/24 Accounts Adjustable Clerk Relationship Specialty Start Date End Date Joaquín HarryelDO [address] [place] [address] PCP - General Family Medicine 11/29/23 Albina Luong MD [address] [phone] Specialty Hardwood Floor Finisher Cardiology 12/21/17 Lamont Michel DO [facility] [address] [place] [address] Specialty Hardwood Floor Finisher Neurology 08/04/21 [place] [address] [place], [place] [phone] Specialty Hardwood Floor Finisher Gastroenterology 08/04/21 Albina Anton V [address] [place] [phone] Specialty Hardwood Floor Finisher Internal Medicine 10/20/23 Deven Logan MD 224 [facility] Physician Office [place], [place] [phone] Specialty Hardwood Floor Finisher Allergy 05/25/24 Lucio Glasgow APRN.ASBESTOS MICROSCOPIST [address] [place] [address] Embroidery Supervisor Family [facility] 09/10/24 Accounts Adjustable Clerk Relationship Specialty Start Date End Date James Harry DO [address] [place], [place] 674362 PCP - General Family Medicine 11/29/23 Albina Luong MD [address] KAN[address] [place] [phone] Specialty Hardwood Floor Finisher Cardiology 12/21/17 Lamont Michel DO [facility] [address] [place], [place] 367642 Specialty Hardwood Floor Finisher Neurology 08/04/21 [place] [address] [place], [place] 1177136 Specialty Hardwood Floor Finisher Gastroenterology 08/04/21 Albina Anton V [address] [place] [phone] Specialty Hardwood Floor Finisher Internal Medicine 10/20/23 Deven Logan MD 224 [facility] Physician Office [place], [place] [phone] Specialty Hardwood Floor Finisher Allergy 05/25/24 Lucio Glasgow APRN.CNP [address] [place] [address] Embroidery Supervisor Family Medicine 09/10/24 Accounts Adjustable Clerk Relationship Specialty Start Date End Date James Harry DO [address] [place], [place] 537112 PCP - General Family Medicine 11/29/23 Albina Luong MD [address] [place] [address] Specialty Hardwood Floor Finisher Cardiology 12/21/17 Lamont Michel DO [facility] [address] [place], [place] [phone] Specialty Hardwood Floor Finisher Neurology 08/04/21 [place] [address] [place], [place] [phone] Specialty Hardwood Floor Finisher Gastroenterology 08/04/21 Albina Anton V [address] [facility] [phone] Specialty Hardwood Floor Finisher Internal Medicine 10/20/23 Deven Logan MD [address] [place] [address] Physician Office [place], [place] [phone] Specialty Hardwood Floor Finisher Allergy 05/25/24 Lucio Glasgow APRN.ASBESTOS MICROSCOPIST [address] [place], [place] [phone] Embroidery Supervisor Family Medicine 09/10/24 Accounts Adjustable Clerk Relationship Specialty Start Date End Date James Harry DO [address] [place], [place] [id number] PCP - General Family Medicine 11/29/23 Albina Luong MD [address] [address] Specialty Hardwood Floor Finisher Cardiology 12/21/17 Lamont Michel DO [facility] [address] [place] [address] Specialty Hardwood Floor Finisher Neurology 08/04/21 [place] [address] [place] [address] Specialty Hardwood Floor Finisher Gastroenterology 08/04/21 Albina Anton V [address] [place] [phone] Specialty Hardwood Floor Finisher Internal Medicine 10/20/23 Deven Logan MD [address] [place] [address] Physician Office [place], [place] [phone] Specialty Hardwood Floor Finisher Allergy 05/25/24 Lucio Glasgow APRN.ASBESTOS MICROSCOPIST [address] [place] [address] Embroidery Supervisor Family Medicine 09/10/24 Accounts Adjustable Clerk Relationship Specialty Start Date End Date James Harry DO [address] [place], [place] 692402 PCP - General Family Medicine 11/29/23 Albina Luong MD [address] [place] [phone] Specialty Hardwood Floor Finisher Cardiology 12/21/17 Lamont Michel DO [facility] [address] [place] [address] Specialty Hardwood Floor Finisher Neurology 08/04/21 [place] [address] [place] [address] Specialty Hardwood Floor Finisher Gastroenterology 08/04/21 Albina Anton V [address] [place] [phone] Specialty Hardwood Floor Finisher Internal Medicine 10/20/23 Deven Logan MD 224 [facility] [place] [address] Specialty Hardwood Floor Finisher Allergy 05/25/24 Lucio Glasgow APRN.ASBESTOS MICROSCOPIST [address] [place], [place] 602552 Embroidery Supervisor Family Medicine 09/10/24 Accounts Adjustable Clerk Relationship Specialty Start Date End Date James Harry DO [address] [place], [place] 624662 PCP - General Family Medicine 11/29/23 Albina Luong MD [address] [address] Specialty Hardwood Floor Finisher Cardiology 12/21/17 Lamont Michel DO [facility] [address] [place], [place] 7005[address]12 Specialty Hardwood Floor Finisher Neurology 08/04/21 [place] [address] [place], [place] 5990436 Specialty Hardwood Floor Finisher Gastroenterology 08/04/21 Albina Anton V [address] [place] [phone] Specialty Hardwood Floor Finisher Internal Medicine 10/20/23 Deven Logan MD 224 [facility] [place] [address] Specialty Hardwood Floor Finisher Allergy 05/25/24 Lucio Glasgow APRN.ASBESTOS MICROSCOPIST [address] [place], [place] [phone] Embroidery Supervisor Family Medicine 09/10/24 Accounts Adjustable Clerk Relationship Specialty Start Date End Date James Harry [address]4 [facility] [place], [place] 373212 PCP - General Family Medicine 11/29/23 Albina Luong MD [address] [phone] Specialty Hardwood Floor Finisher Cardiology 12/21/17 Lamont Michel DO [facility] [address] [place], [place] [phone] Specialty Hardwood Floor Finisher Neurology 08/04/21 [place] [address] [place], [place] 9778836 Specialty Hardwood Floor Finisher Gastroenterology 08/04/21 Albina Anton V [address] [place] [phone] Specialty Hardwood Floor Finisher Internal Medicine 10/20/23 Deven Logan MD 224 [facility] Physician Office [place], [place] [phone] Specialty Hardwood Floor Finisher Allergy 05/25/24 Lucio Glasgow APRN.ASBESTOS MICROSCOPIST [address] [place], [place] 207942 Embroidery Supervisor Family Medicine 09/10/24 Dulce Dubon APRN.ASBESTOS MICROSCOPIST [address] [place], [place] 332112 Embroidery Supervisor Family Medicine 12/14/24 Accounts Adjustable Clerk Relationship Specialty Start Date End Date James Harry [address] [place], [place] 277312 PCP - General Family Medicine 11/29/23 Albina Luong MD [address] [phone] Specialty Hardwood Floor Finisher Cardiology 12/21/17 Lamont Michel DO [facility] [address] [place] [address] Specialty Hardwood Floor Finisher Neurology 08/04/21 [place] [address] [place], [place] 6244236 Specialty Hardwood Floor Finisher Gastroenterology 08/04/21 Albina Anton V [address] [place] [phone] Specialty Hardwood Floor Finisher Internal Medicine 10/20/23 Deven Logan MD 224 [facility] [place] [address] Specialty Hardwood Floor Finisher Allergy 05/25/24 Lucio Glasgow APRN.ASBESTOS MICROSCOPIST [address] [place], [place] 735062 Embroidery Supervisor Family Medicine 09/10/24 Dulce Dubon, KNUCKLE STRAP SEWER.ASBESTOS MICROSCOPIST [address] [place], [place] [phone] Embroidery Supervisor Family Medicine 12/14/24 Team Status: Active Member Role Status Dates Dr. Dasia Auguste DO Primary Care Provider Active Team Status: Inactive Member Role Status Dates Dr. Dasia Auguste DO Primary Care Provider Active Start: November 01, 2024 End: November 01, 2024 Dr. Dasia Auguste DO Attending Provider Active St art: November 01, 2024 End: November 01, 2024 Dr. Dasia Auguste DO Referring Provider Active St art: November 01, 2024 End: November 01, 2024 Team Status: Inactive Member Role Status Dates Dr. Dasia Auguste DO Primary Care Provider Active Start: November 22, 2024 End: November 22, 2024 Dr. Malcolm Gleason MD Attending Provider Active Start: November 22, 2024 End: November 22, 2024 Dr. Malcolm Gleason MD Referring Provider Active Start: November 22, 2024 End: November 22, 2024 Team Status: Inactive Member Role Status Dates Dr. Dasia Auguste DO Primary Care Provider Active Start: December 21, 2024 End: December 21, 2024 Dr. Dasia Auguste DO Referring Provider Active St art: December 21, 2024 End: December 21, 2024 TANISHA Hernandez Attending Provider Active S tart: December 21, 2024 End: December 21, 2024 Team Status: Inactive Member Role Status Dates Dr. Dasia Auguste DO Primary Care Provider Active Start: January 10, 2025 End: January 10, 2025 TANISHA Hernandez Attending Provider Active S tart: January 10, 2025 End: January 10, 2025 TANISHA Hernandez Referring Provider Active S tart: January 10, 2025 End: January 10, 2025 Accounts Adjustable Clerk Relationship Specialty Start Date End Date James Harry DO [address] [place] [address] PCP - General Family Medicine 11/29/23 Albina Luong MD [address] [place] [address] Specialty Hardwood Floor Finisher Cardiology 12/21/17 Lamont Michel DO [facility] [address] [place] [address] Specialty Hardwood Floor Finisher Neurology 08/04/21 [place] [address] [place] [address] Specialty Hardwood Floor Finisher Gastroenterology 08/04/21 Albina Anton V 324 [facility] [phone] Specialty Hardwood Floor Finisher Internal Medicine 10/20/23 Deven Logan MD [address] [place] [address] Physician Office [place], [place] [phone] Specialty Hardwood Floor Finisher Allergy 05/25/24 Lucio Glasgow APRN.ASBESTOS MICROSCOPIST [facility]4 [place] [address] Embroidery Supervisor Family Medicine 09/10/24 Dulce Dubon APRN.ASBESTOS MICROSCOPIST [address] [place] [address] Embroidery Supervisor Family Medicine 12/14/24 Accounts Adjustable Clerk Relationship Specialty Start Date End Date James Harry DO [address] [place] [address] PCP - General Family Medicine 11/29/23 Albina Luong MD [address] [place] [address] [phone] Specialty Hardwood Floor Finisher Cardiology 12/21/17 Lamont Michel DO [facility] [address] [place] [address] Specialty Hardwood Floor Finisher Neurology 08/04/21 [place] [address] [place], [place] 5346936 Specialty Hardwood Floor Finisher Gastroenterology 08/04/21 Albina Anton V [address] [place] [phone] Specialty Hardwood Floor Finisher Internal Medicine 10/20/23 Deven Logan MD 224 [facility] Physician Office [place], [place] [phone] Specialty Hardwood Floor Finisher Allergy 05/25/24 Lucio Glasgow APRN.ASBESTOS MICROSCOPIST [address] [place], [place] [phone] Embroidery Supervisor Family Medicine 09/10/24 Dulce Dubon KNUCKLE STRAP SEWER.ASBESTOS MICROSCOPIST [address] [place], [place] [phone] Embroidery Supervisor Family [facility] 12/14/24 Accounts Adjustable Clerk Relationship Specialty Start Date End Date James Harry DO [address] [place], [place] [id number] PCP - General Family Medicine 11/29/23 Albina Luong MD [address] [phone] Specialty Hardwood Floor Finisher Cardiology 12/21/17 Lamont Michel DO [facility] [address] [place] [address] Specialty Hardwood Floor Finisher Neurology 08/04/21 [place] [address] [place], [place] 8324836 Specialty Hardwood Floor Finisher Gastroenterology 08/04/21 Albina Anton V [address] [place] [phone] Specialty Hardwood Floor Finisher Internal Medicine 10/20/23 Deven Logan MD [address] [place] [address] General Physician Office [place], [place] [phone] Specialty Hardwood Floor Finisher Allergy 05/25/24 Lucio Glasgow APRN.ASBESTOS MICROSCOPIST [address] [place] [address] Embroidery Supervisor Family Medicine 09/10/24 Dulce Dubon KNUCKLE STRAP SEWER.ASBESTOS MICROSCOPIST [address] [place] [address] [phone] Embroidery Supervisor Family Medicine 12/14/24 Team Status: Inactive Member Role Status Dates Dr. Dasia Auguste DO Primary Care Provider Active Start: January 17, 2025 End: January 17, 2025 TANISHA Whitfield Attending Provider Active Start: January 17, 2025 End: January 17, 2025 TANISHA Whitfield Referring Provider Active Start: January 17, 2025 End: January 17, 2025 Team Status: Inactive Member Role Status Dates Dr. Dasia Auguste DO Primary Care Provider Active Start: March 06, 2025 End: March 06, 2025 Dr. Jaime Bowman MD Attending Provider Active S tart: March 06, 2025 End: March 06, 2025 Accounts Adjustable Clerk Relationship Specialty Start Date End Date James Harry DO [address] [place] [address] PCP - General Family Medicine 11/29/23 Albina Luong MD [address] [place] [phone] Specialty Hardwood Floor Finisher Cardiology 12/21/17 Lamont Michel DO [facility] [address] [place] [address] Specialty Hardwood Floor Finisher Neurology 08/04/21 [place] [address] [place], [place] 8502236 Specialty Hardwood Floor Finisher Gastroenterology 08/04/21 Albina Anton V [address] [facility] [phone] Specialty Hardwood Floor Finisher Internal Medicine 10/20/23 Deven Logan MD 224 [facility] Physician Office [place], [place] [phone] Specialty Hardwood Floor Finisher Allergy 05/25/24 Lucio Glasgow APRN.ASBESTOS MICROSCOPIST [address] [place] [address] Embroidery Supervisor Family Medicine 03/06/25 Dulce Dubon APRN.ASBESTOS MICROSCOPIST [address] [place] [phone] Embroidery Supervisor Family Medicine 03/06/25 Accounts Adjustable Clerk Relationship Specialty Start Date End Date James Harry DO [address] [place] [address] 808152 PCP - General Family Medicine 11/29/23 Albina Luong MD [address] [address] Specialty Hardwood Floor Finisher Cardiology 12/21/17 Lamont Michel DO [facility] [address] [place] [address] Specialty Hardwood Floor Finisher Neurology 08/04/21 [place] [address] [place], [place] 3520736 Specialty Hardwood Floor Finisher Gastroenterology 08/04/21 Albina Anton V 324 [facility] [phone] Specialty Hardwood Floor Finisher Internal Medicine 10/20/23 Deven Logan MD 224 [facility] Physician Office [place], [place] [phone] Specialty Hardwood Floor Finisher Allergy 05/25/24 Lucio Glasgow APRN.ASBESTOS MICROSCOPIST [address] [place] [address] Embroidery Supervisor Family Medicine 03/06/25 Dulce Dubon APRN.ASBESTOS MICROSCOPIST [address] [place], [place] 415692 Embroidery Supervisor Family Medicine 03/06/25 Accounts Adjustable Clerk Relationship Specialty Start Date End Date James Harry DO [address] [place] [address] PCP - General Family Medicine 11/29/23 Albina Luong MD [address] [place] [address] [phone] Specialty Hardwood Floor Finisher Cardiology 12/21/17 Lamont Michel DO [facility] [address] [place] [address] Specialty Hardwood Floor Finisher Neurology 08/04/21 [place] [address] [place], [place] 9605736 Specialty Hardwood Floor Finisher Gastroenterology 08/04/21 Albina Anton V [address] [place] [phone] Specialty Hardwood Floor Finisher Internal Medicine 10/20/23 Deven Logan MD 224 [facility] Physician Office [place], [place] [phone] Specialty Hardwood Floor Finisher Allergy 05/25/24 Lucio Glasgow KNUCKLE STRAP SEWER.ASBESTOS MICROSCOPIST [address] [place], [place] [phone] Embroidery Supervisor Family [facility] 03/06/25 Dulce Dubon, KNUCKLE STRAP SEWER.ASBESTOS MICROSCOPIST [address] [place], [place] [phone] Embroidery Supervisor [facility] 03/06/25 Accounts Adjustable Clerk Relationship Specialty Start Date End Date James Harry DO [address] [place], [place] [phone] PCP - General Family Medicine 11/29/23 Albina Luong MD [address] [phone] Specialty Hardwood Floor Finisher Cardiology 12/21/17 Lamont Michel DO [facility] [address] [place], [place] [phone] Specialty Hardwood Floor Finisher Neurology 08/04/21 [place] [address] [place] [address] Specialty Hardwood Floor Finisher Gastroenterology 08/04/21 Albina Anton V [address] [place] [phone] Specialty Hardwood Floor Finisher Internal Medicine 10/20/23 Deven Logan MD 224 [facility] Physician Office [place], [place] [phone] Specialty Hardwood Floor Finisher Allergy 05/25/24 Lucio Glasgow, NEVIN.ASBESTOS MICROSCOPIST [address] [place] [address] Embroidery Supervisor Family Medicine 03/06/25 Dulce Dubon, KNUCKLE STRAP SEWER.ASBESTOS MICROSCOPIST [address] [place], [place] [phone] Embroidery Supervisor Family [facility] 03/06/25 Accounts Adjustable Clerk Relationship Specialty Start Date End Date James Harry DO [address] [place] [address] PCP - General Family Medicine 11/29/23 Albina Luong MD [address] [address] Specialty Hardwood Floor Finisher Cardiology 12/21/17 Lamnot Michel DO [facility] [address] [place] [address] Specialty Hardwood Floor Finisher Neurology 08/04/21 [place] [address] [place] [address] Specialty Hardwood Floor Finisher Gastroenterology 08/04/21 Albina [place] [phone] Specialty Hardwood Floor Finisher Internal Medicine 10/20/23 Deven Logan MD 224 [facility] Physician Office [place], [place] [phone] Specialty Hardwood Floor Finisher Allergy 05/25/24 Lucio Glasgow APRN.ASBESTOS MICROSCOPIST [address] [place] [address] Embroidery Supervisor Family Medicine 03/06/25 Dulce Dubon, KNUCKLE STRAP SEWER.ASBESTOS MICROSCOPIST [address] [place] [address] Embroidery Supervisor Family Medicine 03/06/25 Accounts Adjustable Clerk Relationship Specialty Start Date End Date James Harry DO [address] [place], [place] 341462 PCP - General Family Medicine 11/29/23 Albina Luong MD 224 [facility] [address] [place] [address] Specialty Hardwood Floor Finisher Cardiology 12/21/17 Lamont Michel DO [facility] [address] [place], [place] [phone] Specialty Hardwood Floor Finisher Neurology 08/04/21 [place] [address] [place], [place] 0545636 Specialty Hardwood Floor Finisher Gastroenterology 08/04/21 Albina Anton V [address] [place] [phone] Specialty Hardwood Floor Finisher Internal Medicine 10/20/23 Deven Logan MD 224 [facility] Phys[facility] Office [address] [place], [place] [phone] Specialty Hardwood Floor Finisher Allergy 05/25/24 Lucio Glasgow APRN.ASBESTOS MICROSCOPIST [address] [place], [place] [phone] Embroidery Supervisor Family [facility] 03/06/25 Dulce Dubon APRN.ASBESTOS MICROSCOPIST [address] [place], [place] [phone] Embroidery Supervisor [facility] 03/06/25 Accounts Adjustable Clerk Relationship Specialty Start Date End Date James Harry DO [address] [place], [place] [phone] PCP - General Family Medicine 11/29/23 Albina Luong MD [address] [place] [address] 225 [place] [address] Specialty Hardwood Floor Finisher Cardiology 12/21/17 Lamont Michel DO [facility] [address] [place], [place] [phone] Specialty Hardwood Floor Finisher Neurology 08/04/21 [place] [address] [place] [address] Specialty Hardwood Floor Finisher Gastroenterology 08/04/21 Albina Anton V [address] [facility] [place] [phone] Specialty Hardwood Floor Finisher Internal Medicine 10/20/23 Deven Logan MD 224 [facility] Phys[facility] Office Building [address] [place] [address] Specialty Hardwood Floor Finisher Allergy 05/25/24 Lucio Glasgow APRN.ASBESTOS MICROSCOPIST [address] [place] [address] [facility] 03/06/25 Dulce Dubon APRN.ASBESTOS MICROSCOPIST [address] [place] [address] [facility] 03/06/25 Team Status: Active Member Role/Relationship Status Dates Dr. Dasia Auguste DO Primary Care Provider Active Team Status: Inactive Member Role/Relationship Status Dates Dr. Dasia Auguste DO Primary Care Provider Active Start: January 10, 2025 End: January 10, 2025 TANISHA Hernandez Attending Provider Active S tart: January 10, 2025 End: January 10, 2025 TANISHA Hernandez Referring Provider Active S tart: January 10, 2025 End: January 10, 2025 Team Status: Inactive Member Role/Relationship Status Dates Dr. Dasia Auguste DO Primary Care Provider Active Start: January 17, 2025 End: January 17, 2025 TANISHA Whitfield Attending Provider Active Start: January 17, 2025 End: January 17, 2025 TANISHA Whitfield Referring Provider Active Start: January 17, 2025 End: January 17, 2025 Team Status: Inactive Member Role/Relationship Status Dates Dr. Dasia Auguste DO Primary Care Provider Active Start: March 06, 2025 End: March 06, 2025 Dr. Jaime Bowman MD Attending Provider Active S tart: March 06, 2025 End: March 06, 2025 Team Status: Inactive Member Role/Relationship Status Dates Dr. Dasia Auguste DO Primary Care Provider Active Start: April 02, 2025 Dr. Hansa Barrow MD Attending Provider Active Start: April 02, 2025 Team Status: Inactive Member Role/Relationship Status Dates Dr. Dasia Auguste DO Primary Care Provider Active Start: May 07, 2025 End: May 07, 2025 Dr. Dasia Auguste DO Referring Provider Active St art: May 07, 2025 End: May 07, 2025 TANISHA Hernandez Attending Provider Active S tart: May 07, 2025 End: May 07, 2025 Team Status: Inactive Member Role/Relationship Status Dates Dr. Dasia Auguste DO Primary Care Provider Active Start: January 17, 2025 End: January 17, 2025 TANISHA Whitfield Attending Provider Active Start: January 17, 2025 End: January 17, 2025 TANISHA Whitfield Referring Provider Active Start: January 17, 2025 End: January 17, 2025 Team Status: Inactive Member Role/Relationship Status Dates Dr. Dasia Auguste DO Primary Care Provider Active Start: March 06, 2025 End: March 06, 2025 Dr. Jaime Bowman MD Attending Provider Active S tart: March 06, 2025 End: March 06, 2025 Team Status: Inactive Member Role/Relationship Status Dates Dr. Dasia Auguste DO Primary Care Provider Active Start: April 02, 2025 Dr. Hansa Barrow MD Attending Provider Active Start: April 02, 2025 Team Status: Inactive Member Role/Relationship Status Dates Dr. Dasia Auguste DO Primary Care Provider Active Start: May 07, 2025 End: May 07, 2025 Dr. Dasia Auguste DO Referring Provider Active St art: May 07, 2025 End: May 07, 2025 TANISHA Hernandez Attending Provider Active S tart: May 07, 2025 End: May 07, 2025 Team Status: Inactive Member Role/Relationship Status Dates Dr. Dasia Auguste DO Primary Care Provider Active Start: May 09, 2025 End: May 09, 2025 Dr. Malcolm Gleason MD Attending Provider Active Start: May 09, 2025 End: May 09, 2025 Dr. Malcolm Gleason MD Referring Provider Active Start: May 09, 2025 End: May 09, 2025 Team Status: Inactive Member Role/Relationship Status Dates Dr. Dasia Auguste DO Primary Care Provider Active Start: March 06, 2025 End: March 06, 2025 Dr. Jaime Bowman MD Attending Provider Active S tart: March 06, 2025 End: March 06, 2025 Team Status: Inactive Member Role/Relationship Status Dates Dr. Dasia Auguste DO Primary Care Provider Active Start: April 02, 2025 Dr. Hansa Barrow MD Attending Provider Active Start: April 02, 2025 Team Status: Inactive Member Role/Relationship Status Dates Dr. Dasia Auguste DO Primary Care Provider Active Start: May 07, 2025 End: May 07, 2025 Dr. Dasia Auguste DO Referring Provider Active St art: May 07, 2025 End: May 07, 2025 TANISHA Hernandez Attending Provider Active S tart: May 07, 2025 End: May 07, 2025 Team Status: Inactive Member Role/Relationship Status Dates Dr. Dasia Auguste DO Primary Care Provider Active Start: May 09, 2025 End: May 09, 2025 Dr. Malcolm Gleason MD Attending Provider Active Start: May 09, 2025 End: May 09, 2025 Dr. Malcolm Gleason MD Referring Provider Active Start: May 09, 2025 End: May 09, 2025 Team Status: Inactive Member Role/Relationship Status Dates Dr. Dasia Auguste DO Primary Care Provider Active Start: May 21, 2025 End: May 21, 2025 TANISHA Hernandez Attending Provider Active S tart: May 21, 2025 End: May 21, 2025 TANISHA Hernandez Referring Provider Active S tart: May 21, 2025 End: May 21, 2025 Accounts Adjustable Clerk Relationship Specialty Start Date End Date James Harry DO [address] [place] [address] PCP - General Family Medicine 11/29/23 Albina Luong MD [address] [id number] Specialty Hardwood Floor Finisher Cardiology 12/21/17 Lamont Michel DO [facility] [address] [place], [place] [id number] Specialty Hardwood Floor Finisher Neurology 08/04/21 [place] [address] [place] [address] Specialty Hardwood Floor Finisher Gastroenterology 08/04/21 Albina Anton V [address] [facility] [place] [address] Specialty Hardwood Floor Finisher Internal Medicine 10/20/23 Deven Logan MD [address] [facility] [place] [address] Specialty Hardwood Floor Finisher Allergy 05/25/24 Lucio Glasgow, KNUCKLE STRAP SEWER.[employer] MICROSCOPIST [address] [place] [address] Embroidery Supervisor Family Medicine 03/06/25 Dulce Dubon, KNUCKLE STRAP SEWER.[employer]BESTOS MICROSCOPIST [address] [place] [address] Embroidery Supervisor Family [facility] 05/15/25 Team Status: Inactive Member Role/Relationship Status Dates Dr. Dasia Auguste DO Primary Care Provider Active Start: June 07, 2025 End: June 07, 2025 Dr. Dasia Auguste DO Referring Provider Active St art: June 07, 2025 End: June 07, 2025 Dr. Justus Ghosh DO Attending Provider Active Start: June 07, 2025 End: June 07, 2025 Team Status: Active Member Role/Relationship Status Dates Dr. Dasia Auguste DO Primary care physician Active Team Status: Inactive Member Role/Relationship Status Dates Dr. Dasia Auguste DO Primary care physician Active Start: March 06, 2025 End: March 06, 2025 Dr. Jaime Bowman MD Attending physician Active Start: March 06, 2025 End: March 06, 2025 Team Status: Inactive Member Role/Relationship Status Dates Dr. Dasia Auguste DO Primary care physician Active Start: April 02, 2025 Dr. Hansa Barrow MD Attending physician Active Start: April 02, 2025 Team Status: Inactive Member Role/Relationship Status Dates Dr. Dasia Auguste DO Primary care physician Active Start: May 07, 2025 End: May 07, 2025 Dr. Dasia Auguste DO Referring Provider Active St art: May 07, 2025 End: May 07, 2025 TANISHA Hernandez Attending physician Active Start: May 07, 2025 End: May 07, 2025 Team Status: Inactive Member Role/Relationship Status Dates Dr. Dasia Auguste DO Primary care physician Active Start: May 09, 2025 End: May 09, 2025 Dr. Malcolm Gleason MD Attending physician Active Start: May 09, 2025 End: May 09, 2025 Dr. Malcolm Gleason MD Referring Provider Active Start: May 09, 2025 End: May 09, 2025 Team Status: Inactive Member Role/Relationship Status Dates Dr. Dasia Auguste DO Primary care physician Active Start: May 21, 2025 End: May 21, 2025 TANISHA Hernandez Attending physician Active Start: May 21, 2025 End: May 21, 2025 TANISHA Hernandez Referring Provider Active S tart: May 21, 2025 End: May 21, 2025 Team Status: Inactive Member Role/Relationship Status Dates Dr. Dasia Auguste DO Primary care physician Active Start: June 07, 2025 End: June 07, 2025 Dr. Dasia Auguste DO Referring Provider Active St art: June 07, 2025 End: June 07, 2025 Dr. Justus Ghosh DO Attending physician Active Start: June 07, 2025 End: June 07, 2025 Team Status: Inactive Member Role/Relationship Status Dates Dr. Dasia Auguste DO Primary care physician Active Start: June 27, 2025 End: June 27, 2025 Dr. Dasia Auguste DO Referring Provider Active St art: June 27, 2025 End: June 27, 2025 Dr. Justus Ghosh DO Attending physician Active Start: June 27, 2025 End: June 27, 2025 Team Status: Inactive Member Role/Relationship Status Dates Dr. Dasia Auguste DO Primary care physician Active Start: May 07, 2025 End: May 07, 2025 Dr. Dasia Auguste DO Referring Provider Active St art: May 07, 2025 End: May 07, 2025 TANISHA Hernandez Attending physician Active Start: May 07, 2025 End: May 07, 2025 Team Status: Inactive Member Role/Relationship Status Dates Dr. Dasia Auguste DO Primary care physician Active Start: May 09, 2025 End: May 09, 2025 Dr. Malcolm Gleason MD Attending physician Active Start: May 09, 2025 End: May 09, 2025 Dr. Malcolm Gleason MD Referring Provider Active Start: May 09, 2025 End: May 09, 2025 Team Status: Inactive Member Role/Relationship Status Dates Dr. Dasia Auguste DO Primary care physician Active Start: May 21, 2025 End: May 21, 2025 TANISHA Hernandez Attending physician Active Start: May 21, 2025 End: May 21, 2025 TANISHA Hernandez Referring Provider Active S tart: May 21, 2025 End: May 21, 2025 Team Status: Inactive Member Role/Relationship Status Dates Dr. Dasia Auguste DO Primary care physician Active Start: June 07, 2025 End: June 07, 2025 Dr. Dasia Auguste DO Referring Provider Active St art: June 07, 2025 End: June 07, 2025 Dr. Justus Ghosh DO Attending physician Active Start: June 07, 2025 End: June 07, 2025 Team Status: Inactive Member Role/Relationship Status Dates Dr. Dasia Auguste DO Primary care physician Active Start: June 27, 2025 End: June 27, 2025 Dr. Dasia Auguste DO Referring Provider Active St art: June 27, 2025 End: June 27, 2025 Dr. Justus Ghosh DO Attending physician Active Start: June 27, 2025 End: June 27, 2025 Team Status: Inactive Member Role/Relationship Status Dates Dr. Dasia Auguste DO Primary care physician Active Start: July 24, 2025 End: July 24, 2025 Dr. Jaime Bowman MD Attending physician Active Start: July 24, 2025 End: July 24, 2025 Team Status: Active Member Role/Relationship Status Dates Dr. Dasia Auguste DO Primary care physician Active Start: August 13, 2025 Dr. Dasia Auguste DO Attending physician Active S tart: August 13, 2025 Dr. Dasia Auguste DO Referring Provider Active St art: August 13, 2025 Goals (unrecognized section and content) Goals may be documented in a n alternate sectionGoals may be documented in an alternate sectionGoals may be documented in an alternate sectionGoals may be documented in an alternate sectionGoals may be documented in an alternate sectionGoals may be documented in an alternate sectionGoals may be documented in an alternate sectionGoals may be documented in an alternate sectionGoals may be documented in an alternate sectionGoals may be documented in an alternate sectionGoals may be documented in an alternate section FOR RECORDS PERTAINING TO PATIENTS WHO ARE OR HAVE BEEN ENROLLED IN A CHEMICAL DEPENDENCY/SUBSTANCEABUSE PROGRAM, SOME INFORMATION MAY BE OMITTED. This clinical summary was aggregated from multiple sources. Caution should be exercised in using it in the provision of clinical care. This summary normalizes information from multiple sources, and as a consequence, information in this document may materially change the coding, format and clinical context of patient data. In addition, data may be omitted in some cases. CLINICAL DECISIONS SHOULD BE BASED ON THE PRIMARY CLINICAL RECORDS. [facility]. provides no warranty or guarantee of the accuracy or completeness of information in this document.
[2025-09-05] MEDS: Lactated Ringers 1,000 ML 15 ML IV (06:10)
--- NOTE | 2025-09-05 06:30 | EGD_PTH ---
PATIENT: MARCIAL YEUNG LOC: EN U#:[id number] AGE/SX: 60/F ROOM: RE09/05/[address]: Dr. Justus Ghosh DO : 1965 BED: DIS: 09/05/2025 SPEC #: [id number] RECD: 09/05/25 09:34 STATUS: KARY REManuelito #: [id number] WEST: 09/05/25 06:[address]: Justus Ghosh DEPT: SURGICAL PATHOLOGY RECD BY: Radha York ENTERED: 09/05/25 13:42 SP TYPE: EGD BIOPSY OT DR: Dr. Dasia Auguste DO Tissues: A - Esophagus, NOS B - Gastric mucous membrane C - Rectum, NOS Procedures: Immunohistochemical Stains Surgery Specimen Level IV HEADER OPERATION: Colonoscopy, EGD biopsy PRE-OP DIAGNOSIS: Irritable bowel syndrome with diarrhea, dysphagia, nausea TISSUE SUBMITTED: A. Random esophagus, B. Antrum biopsy, C. Rectal biopsy MICROSCOPIC DIAGNOSIS A. Esophagus, random, biopsies: - Benign squamous epithelium without active inflammation or architectural distortion B. Stomach, antrum: * Oxyntic mucosa with slight chronic inflammation * An immunohistochemical stain for Helicobacter pylori is negative C. Rectum: - irregular crypts with a normal goblet cell population and with increased amount of muscularis mucosa, suggesting an inflammatory polyp formation MICROSCOPIC DESCRIPTION Slides are reviewed. All matched controls reacted appropriately. These tests were developed and their performance characteristics determined by [facility]. They may not have been cleared or approved by the U.S. Food and Drug Administration. The FDA has determined that such clearance or approval is not necessary. The above immunohistochemical markers are viewed by the Pathologist. GROSS DESCRIPTION A. Received in fixative is one container labeled with the patient's name and designated "Random esophagus biopsy." The specimen consists of two irregular fragments of hager tissue that measure 0.4 and 0.5 cm. The specimen is totally submitted in one cassette. B. Received in fixative is one container labeled with the patient's name and designated "Antrum biopsy." The specimen consists of multiple irregular fragments of hager tissue that in aggregate measure 0.7 x 0.5 x 0.1 cm. The specimen is totally submitted in one cassette. C. Received in fixative is one container labeled with the patient's name and designated "Rectal biopsy." The specimen consists of three irregular fragments of hager tissue that measure, each measuring 0.3 cm. The specimen is totally submitted in one cassette. [place] 09/05/2025 CPT:54923t8,50221
--- NOTE | 2025-09-05 06:30 | PCM.PRE.AN2 ---
ASA Classification* ASA Classification ASA Classification: 2 Assessment & Plan Anesthesia* Anesthesia Assessment Anesthesia Assessment: Discussed sedation and/or anesthesia options, risks, benefits, and alternatives with patient/parents/legal guardian/POA. Questions invited. The patient/parents/legal guardian/POA seems to understand and agrees to proceed with anesthesia plan. Reviewed the physical assessment, medical history, allergy history and patient home medications list prior to surgery/procedure/anesthetic and documented any changes. Performed airway and anesthesia risk assessments. Anesthesia Type Anesthesia Type: MAC History Source History Obtained from:: Patient and Chart Anesthesia Focused Assessment* Temperature: 97.5 F Pulse Rate: 74 Blood Pressure: 148/91 Respiratory Rate: 18 Pulse Ox: 100 Oxygen Delivery Method: Room Air Airway Assessment Mouth opens: >3 cm Mallampati Score: II Teeth Condition: Caps/Crowns (Patient has a right upper crown. It is tight.) Neck Range of motion (ROM): Limited ROM (Slight Decrease) Labs Anesthesia Preop lab: CBC WBC, (4.4-11.0) 7.1 K/mm3 01/10/25, 15:16 RBC, (4.2-5.4) 4.01 M/mm3 L 01/10/25, 15:16 Hgb, (12.0-15.0) 11.6 g/dL L 01/10/25, 15:16 Hct, (37-47) 36.2 % L 01/10/25, 15:16 Plt Count, (150-450) 297 K/mm3 01/10/25, 15:16 CHEMISTRY Potassium, (3.3-5.1) 4.4 mmol/L 01/10/25, 15:16 Sodium, (133-145) 133 mmol/L 01/10/25, 15:16 BUN, (4-19) 15 mg/dL 01/10/25, 15:16 Creatinine, (0.70-1.20) 1.23 mg/dL H 01/10/25, 15:16 Glucose, (70-99) 81 mg/dL 01/10/25, 15:16 TSH, (0.358-3.74) 2.09 uIU/mL 08/05/23, 11:35 COAG Pre-Assessment Diagnosis/Proposed Procedure Planned Operative Procedure(s): COLONOSCOPY, EGD Anesthesia History 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 When Was Last Pacemaker Check QUESTION #4 FULL TEXT: You/Your Family Experience fever (hyperthermia) with Anesthesia Last Oral Intake Last Oral intake: Last Oral Intake NPO since 02:45 09/05/25 05:56 Meds taken in AM with sips of No 09/05/25 05:56 water? Meds patient instructed to take am of surgery Any additional information?: Yes NPO since: 02:45 (Patient took her last prep at 2:45 AM.) PONV PONV - business quality assurance analyst: PONV - business quality assurance analyst Female Yes 09/02/25 12:24 HX of Motion Sickness No 09/02/25 12:24 HX of N/V After Surgery Yes 09/02/25 12:24 Non-Smoker Yes 09/02/25 12:24 Duration of Surgery greater No 09/02/25 12:24 than 60 minutes Number of Risk Factors 3 09/02/25 12:24 PONV Score Moderate Risk 09/02/25 12:24 Height & Weight Height & Weight: Anesthesia: Height & Weight Height 5 ft 2 in 09/05/25 05:56 Weight: 58.7 kg 09/05/25 05:56 Body Mass Index (BMI) 23.6 09/05/25 05:56 Respiratory Assessment Respiratory Assessment - business quality assurance analyst: Respiratory Tract Infection Hx - business quality assurance analyst Hx Respiratory Tract Infection No 09/02/25 12:24 STOP Sleep Apnea STOP Sleep Apnea - business quality assurance analyst: STOP Sleep Apnea - business quality assurance analyst Hx Hypertension No 09/02/25 12:24 Hx Sleep Apnea No 09/02/25 12:24 CPAP No 07/24/25 11:57 BIPAP No 07/24/25 11:57 Do you snore loudly (louder No 09/02/25 12:24 than talking or can be heard Do you often feel tired/ No 09/02/25 12:24 fatigued/ sleepy during daytime? Has anyone observed you stop No 09/02/25 12:24 breathing during sleep? STOP Results Negative 09/02/25 12:24 QUESTION #5 FULL TEXT : Do you snore loudly (louder than talking or can be heard through closed doors)? 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 Specify any problems Hx of Preganancy in last 3 No 09/02/25 12:24 Months Nurse Filling Out Transfusion [email or web address] 09/02/25 12:24 & Questions: Date: 09/02/25 09/02/25 12:24 Time: 12:29 09/02/25 12:24 Patient unable to answer at this time (ie. confused, unrespo /Reproduction History /Reproductive History - business quality assurance analyst: /Reproductive Hx- business quality assurance analyst Hx Now Gestational Age (in weeks): EDC: Hx Hx Para Hx Section SAB No 09/02/25 12:24 Does the father of the baby or his family experience fever w Father of the baby Malignant Hypertension history comment Active Medications Active Medications: Current Medications Generic Name Dose Route Start Last Admin Trade Name Freq PRN Reason Stop Dose Admin Lactated Ringer's 1,000 mls @ 15 mls/hr 09/05/25 06:00 09/05/25 06:10 IV 15 mls/hr .Q48H TONYA Administration PFSH Medical History Alcohol use PVC (premature ventricular contraction) Nausea IBS (irritable bowel syndrome) Intermittent lower abdominal pain Other urethral stricture, female Urinary tract infection Urinary tract infection Wears contact lenses Migraine headache Injury of head and neck Gastric reflux Non-smoker Asthma History of echocardiogram History of stress test Cardiology follow-up encounter History of irregular heartbeat Piklm-Fkorbowmj-Kaexy syndrome Abnormal Pap smear of cervix Home Medications Medication Instructions Recorded Last Taken Type trazodone 50 mg tablet 50 mg PO QHS PRN sleep 05/30/14 09/02/25 History rimegepant 75 mg disintegrating 75 mg PO PRN PRN MIGRAINES 05/21/21 08/28/25 History tablet (Nurtec ODT) phenazopyridine 100 mg tablet 100 mg PO TID PRN pain 6 doses #10 07/31/21 Unknown Rx (Pyridium) tabs dicyclomine 10 mg capsule 10 mg PO BID PRN abdominal pain 08/01/23 Unknown History fluticasone furoate 200 1 inh inhalation DAILY 08/01/23 09/04/25 History mcg/actuation blister powder for inhalation (Arnuity Ellipta) metoprolol succinate 25 mg 25 mg PO DAILY 08/01/23 09/04/25 History tablet,extended release 24 hr fexofenadine 180 mg tablet 180 mg PO Q24H 12/20/24 09/04/25 History gabapentin 100 mg capsule 300 mg PO QHS 12/20/24 09/04/25 History ipratropium bromide 21 mcg (0.03 2 spray intranasal BID 12/20/24 09/04/25 History %) nasal spray magnesium 250 mg tablet 250 mg PO QDAY 12/20/24 09/04/25 History montelukast 10 mg tablet 10 mg PO QDAY 12/20/24 09/04/25 History primidone 50 mg tablet 50 mg PO BID 12/20/24 09/04/25 History tizanidine 4 mg capsule 4 mg PO QHS PRN muscle spasticity 12/20/24 09/02/25 History tramadol 50 mg tablet 50 mg PO QDAY 12/20/24 09/03/25 History ondansetron HCl 4 mg tablet 4 mg PO Q8H PRN nausea and 05/07/25 09/03/25 Rx vomiting #45 tabs estradiol 10 mcg vaginal tablet 10 mcg vaginal 2XW #30 tabs 07/18/25 09/02/25 Rx (Vagifem) estradiol 0.025 mg/24 hr 1 patch topical PEARSON 09/02/25 09/01/25 History semiweekly transdermal patch pantoprazole 40 mg tablet,delayed 40 mg PO BID 09/02/25 09/04/25 History release (Protonix) Allergy/AdvReac Type Severity Reaction Status Date / Time citalopram Allergy Intermediate Other Verified 09/05/25 05:52 2-octyl cyanoacrylate (octyl Allergy Hives Verified 09/05/25 05:52 2-cyanoacrylate) Tetracyclines Allergy Unknown Verified 09/05/25 05:52 propranolol AdvReac Other Verified 09/05/25 05:52 Family History Uncle Brain cancer Lung cancer Grandfather Heart disease Colon cancer Surgical History H/O neck surgery H/O: S/P colonoscopy S/P endoscopy History of cardiac catheterization History of cardiac radiofrequency ablation Hx of colonoscopy Hx laparoscopic cholecystectomy History of endometrial ablation S/P laparoscopic assisted vaginal hysterectomy (LAVH) S/P oophorectomy S/P tonsillectomy and adenoidectomy S/P breast augmentation S/P Social History number of children: 3 current occupational status: employed 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 Physical Exam Resp clear to auscultation bilaterally
--- NOTE | 2025-09-05 06:48 | HP.PCM_ITS ---
HPI - General General Date of Admission: 09/05/25 Date of Service: 09/05/25 Chief Complaint: GERD HPI Narrative MARCIAL YEUNG, is a 60 F who presents today for a check up with GERD, she also states she has some stomach pain. She reports she has some constipation and she also has some diarrhea. She has been having pain and cramps almost similar to period cramps on the right side and lower abdomen. Patient has a lot of nausea going on. States she hasn't had much of an appetite. GET 8.19.25 upper limits of normal Manometry 9.5.25 hypercontractile esophagus OV 9.25.25 pt reports that she is here to follow up from her manometry. Reports continued nausea, alternating bowel movements, abd pain, gas/bloating, and difficulty swallowing. Pt's reports an unintentional 20lb weight loss since March 2025, reports that she doesn't eat much and feels full quickly. ] [facility] Medical History Alcohol use PVC (premature ventricular contraction) Nausea IBS (irritable bowel syndrome) Intermittent lower abdominal pain Other urethral stricture, female Urinary tract infection Urinary tract infection Wears contact lenses Migraine headache Injury of head and neck Gastric reflux Non-smoker Asthma History of echocardiogram History of stress test Cardiology follow-up encounter History of irregular heartbeat Djsua-Xeqawohpw-Xjkba syndrome Abnormal Pap smear of cervix Home Medications Medication Instructions Recorded Last Taken Type trazodone 50 mg tablet 50 mg PO QHS PRN sleep 05/3009/02/25 History rimegepant 75 mg disintegrating 75 mg PO PRN PRN MIGRA STEPHANIA 05/21/21 08/28/25 Hi story tablet (Nurtec ODT) phenazopyridine 100 mg tablet 100 mg PO TID PRN pain 6 doses #10 07/31/21 Unknown Rx (Pyridium) tabs dicyclomine 10 mg capsule 10 mg PO BID PRN abdominal p ain 08/01/23 Unknown History fluticasone furoate 200 1 inh inhalation DAILY 08/0109/04/25 History mcg/actuation blister powder for inhalation (Arnuity Ellipta) metoprolol succinate 25 mg 25 mg PO DAILY 08/01/2312/25 History tablet,extended release 24 hr fexofenadine 180 mg tablet 180 mg PO Q24H 12/20/2412/25 History gabapentin 100 mg capsule 300 mg PO QHS 12/20/2409/04 History ipratropium bromide 21 mcg (0.03 2 spray intranasal BI D 12/20/24 09/04/25 History %) nasal spray magnesium 250 mg tablet 250 mg PO QDAY 12/20/2412/25 History montelukast 10 mg tablet 10 mg PO QDAY 12/20/2409/04 History primidone 50 mg tablet 50 mg PO BID 12/20/24 History tizanidine 4 mg capsule 4 mg PO QHS PRN muscle spast icity 12/20/24 09/02/25 History tramadol 50 mg tablet 50 mg PO QDAY 12/20/2409/03 History ondansetron HCl 4 mg tablet 4 mg PO Q8H PRN nausea and 05/07/25 09/03/25 Rx vomiting #45 tabs estradiol 10 mcg vaginal tablet 10 mcg vaginal 2XW #30 tabs 07/18/25 09/02/25 Rx (Vagifem) estradiol 0.025 mg/24 hr 1 patch topical PEARSON 09/02/25 09/01/25 History semiweekly transdermal patch pantoprazole 40 mg tablet,delayed 40 mg PO BID 5 09/04/25 History release (Protonix) Allergy/AdvReac Type Severity Reaction Status Date / Time citalopram Allergy Intermediate Other Verified 09/05/25 05:52 2-octyl cyanoacrylate (octyl Allergy Hives Verified 09/05/25 05:52 2-cyanoacrylate) Tetracyclines Allergy Unknown Verified 09/05/25 05:52 propranolol AdvReac Other Verified 09/05/25 05:52 Family History Uncle Brain cancer Lung cancer Grandfather Heart disease Colon cancer Surgical History H/O neck surgery H/O: S/P colonoscopy S/P endoscopy History of cardiac catheterization History of cardiac radiofrequency ablation Hx of colonoscopy Hx laparoscopic cholecystectomy History of endometrial ablation S/P laparoscopic assisted vaginal hysterectomy (LAVH) S/P oophorectomy S/P tonsillectomy and adenoidectomy S/P breast augmentation S/P Social History number of children: 3 current occupational status: employed 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 Smoking Status: Never smoker alcohol intake: never substance use type: does not use caffeine: Yes what type of physical activity do you participate in: none seatbelt use: always do you feel safe at home: Yes additional social history: Patient has her own [employer] business - [employer] Constitutional Constitutional: Denies fatigue, fever(s), poor appetite, weight gain or weight loss Gastrointestinal Gastrointestinal: Denies belching, bloating, change in bowel habits, change in stool character, chewing difficulty, coffee ground emesis, constipation, cramping, diarrhea, dyspepsia, dysphagia, early satiety, excessive flatus, fecal incontinence, heartburn, hematemesis, hematochezia, hemorrhoids, loose stools, melena, nausea, odynophagia, rectal bleeding, tenesmus, vomiting or weight changes Vital Signs Vital Signs Vital Signs: 09/05/25 05:56 09/05/25 05:56 09/05/25 05:56 Temperature 97.5 F L Temperature Source Temporal Pulse Rate 74 Respiratory Rate 18 Respiratory Pattern Normal Blood Pressure 148/91 H Blood Pressure Mean 110 Blood Pressure Source Monitor Blood Pressure Position Semi-Fowlers Blood Pressure Location Left Arm Baseline BP 148/91 Pulse Ox 100 Oxygen Delivery Method Room Air 09/05/25 06:35 Temperature 97.5 F L Temperature Source Pulse Rate 74 Respiratory Rate 18 Respiratory Pattern Blood Pressure 148/91 H Blood Pressure Mean Blood Pressure Source Blood Pressure Position Blood Pressure Location Baseline BP Pulse Ox 100 Oxygen Delivery Method Room Air Weight Weight: 129 lb 6.581 oz Body Mass Index (BMI) 23.6 Physical Exam Const alert, oriented x3, no apparent distress and healthy appearing General Appearance: cooperative GI normal to inspection, nondistended, normoactive bowel sounds, soft to palpation, non-tender and non-distended Percussion: normal to percussion Rectal Exam: deferred Assessment & Plan Assessment/Plan (1) Dysphagia: QUALIFIERS: Dysphagia type: unspecified Qualified Code(s): R13.10 - Dysphagia, unspecified (2) Nausea: PLAN: Assessment and Plan Assessment and Plan (1) Irritable bowel syndrome with diarrhea: Status: Acute (2) Dysphagia: Status: Chronic Qualifiers: Dysphagia type: unspecified Qualified Code(s): R13.10 - Dysphagia, unspecified (3) Nausea: Status: Acute Plan: 60-year-old individual presenting with a constellation of gastrointestinal symptoms including dysphagia, postprandial abdominal pain, and symptoms consistent with dumping syndrome. The patient has a history of cholecystectomy, which is a known risk factor for developing dumping syndrome. A recent gastric emptying study was at the upper limit of normal, a finding that can be challenging to interpret in the context of both delayed and rapid emptying disorders. * Esophageal Manometry: Confirmed diagnosis of Jackhammer Esophagus, a hypercontractile esophageal motility disorder. * Gastric Emptying Study: Results are at the upper limit of normal, suggesting that while emptying is not definitively delayed (gastroparesis), it is not definitively rapid (dumping syndrome), either. This can complicate the picture, as dumping syndrome is usually associated with rapid gastric emptying. However, symptoms can sometimes present without a clearly positive test. Labs/Imaging: Depending on the presentation, further workup may be needed to rule out other causes of abdominal pain, such as Sphincter of Oddi dysfunction, which is sometimes associated with post-cholecystectomy symptoms. Assesment: * Jackhammer Esophagus: This diagnosis is confirmed by manometry and explains the patient's dysphagia and potentially some of the chest/abdominal pain due to the intense, uncoordinated esophageal contractions. * Dumping Syndrome (post-cholecystectomy): Despite the equivocal gastric emptying study, the patient's symptoms (abdominal pain, flushing, weakness after meals) are highly suggestive of dumping syndrome. Post-cholecystectomy symptoms, including dumping syndrome, can be due to altered gastrointestinal physiology and are not always accompanied by an unequivocally positive gastric emptying study. * Postcholecystectomy Syndrome (PCS): This is a broader term that may encompass both biliary and non-biliary symptoms, including those caused by Sphincter of Oddi dysfunction. Given the history, this is an important consideration. * Functional Abdominal Pain: Overlapping functional gastrointestinal disorders may contribute to the abdominal pain, especially if no clear organic cause can be identified. Plan: * Jackhammer Esophagus Management: * Medical: Recommend smooth muscle relaxants such as calcium channel blockers or nitrates, or tricyclic antidepressants to target faulty esophageal nerves and reduce pain. * Endoscopic: We will perform Botulinum toxin (Botox) injections into the lower esophageal sphincter (LES) to temporarily paralyze the muscle and relieve spasms, especially if other therapies fail. * Surgical: In severe, refractory cases, consider a myotomy (Peroral Endoscopic Myotomy or POEM) to permanently cut the lower esophageal muscle. * Dumping Syndrome Management: * Dietary Modifications: This is the first-line treatment. * Advise smaller, more frequent meals (5-6 per day). * Suggest delaying fluid intake until at least 30 minutes after meals. * Limit simple sugars and increase protein, complex carbohydrates, and fiber. * Instruct the patient to lie down for 30 minutes after eating to delay gastric emptying. * Medical: If dietary changes are insufficient, consider medication. * Acarbose: May be used to treat late dumping syndrome by slowing carbohydrate absorption. * Octreotide: A more potent option for severe symptoms, injected to reduce hormones that cause dumping.
--- NOTE | 2025-09-05 07:39 | PCM.POST.ANE ---
Anesthesia: Postop Eval I Current Vital Signs Temperature: 97 F Pulse Rate: 62 Blood Pressure: 111/66 Respiratory Rate: 16 Pulse Ox: 100 Oxygen Delivery Method: Room Air Assessment Airway patent: Yes Spontaneous unlabored respirations: Yes Mental status: Asleep nausea: No Vomiting: No Anesthesia Complication: No Fluid Hydration Crystalloid volume administer (ml): 500 Total IV fluid infused: 500 Progress Note Anesthesia document: Postop Eval 1 completed: Yes
--- NOTE | 2025-09-05 07:40 | OP.PROVAT_ITS ---
09/05/2025 Dasia Auguste Re : Upper GI endoscopy procedure for Nicki Bajwa Dear Molina This procedure was performed on September. My impressions and recommendations are as follows: Impressions : - Abnormal esophageal motility, established presbyesophagus. - Gastroparesis. Biopsied. - Chronic gastritis. - No gross lesions in the entire examined duodenum. - Biopsies were taken with a cold forceps for evaluation of eosinophilic esophagitis. Recommendations : - Await pathology results. - Continue present medications. My findings are described in the full procedure note, which is enclosed. If I can be of further assistance, please feel free to contact me at . Sincerely, Justus Ghosh, 09/05/2025 7:39:08 AM This report has been signed electronically.
--- NOTE | 2025-09-05 07:40 | OP.EGD_ITS ---
Patient Name: Nicki Bajwa Procedure Date: 09/05/2025 6:34 AM Date of : 1965 Age: 60 Procedure: Upper GI endoscopy Indications: Dyspepsia, Indigestion, Dysphagia Providers: Justus Ghosh DO Referring MD: Dasia Auguste Medicines: Monitored Anesthesia Care Patient Profile: This is a 60 year old female. Refer to note in patient chart for documentation of history and physical. Patient has symptoms of acute epigastric abdominal pain and dysphagia with both liquids and solids. Complications: No immediate complications. Procedure: Pre-Anesthesia Assessment: - Prior to the procedure, a History and Physical was performed, and patient medications and allergies were reviewed. The patient is competent. The risks and benefits of the procedure and the sedation options and risks were discussed with the patient. All questions were answered and informed consent was obtained. Patient identification and proposed procedure were verified by the physician in the pre-procedure area. Mental Status Examination: alert and oriented. Airway Examination: normal oropharyngeal airway and neck mobility. Respiratory Examination: clear to auscultation. CV Examination: normal. Prophylactic Antibiotics: The patient does not require prophylactic antibiotics. Prior Anticoagulants: The patient has taken no anticoagulant or antiplatelet agents. ASA Grade Assessment: II - A patient with mild systemic disease. After reviewing the risks and benefits, the patient was deemed in satisfactory condition to undergo the procedure. The anesthesia plan was to use monitored anesthesia care (MAC). Immediately prior to administration of medications, the patient was re-assessed for adequacy to receive sedatives. The heart rate, respiratory rate, oxygen saturations, blood pressure, adequacy of pulmonary ventilation, and response to care were monitored throughout the procedure. The physical status of the patient was re-assessed after the procedure. After obtaining informed consent, the endoscope was passed under direct vision. Throughout the procedure, the patient's blood pressure, pulse, and oxygen saturations were monitored continuously. The Colonoscope was introduced through the mouth, and advanced to the third part of the duodenum. Small bowel enteroscopy was deemed necessary. The upper GI endoscopy was accomplished without difficulty. The patient tolerated the procedure well. Scope In: 6:59:46 AM Scope Out: 7:04:13 AM Total Procedure Duration Time 0 hours 4 minutes 27 seconds Findings: Abnormal motility was noted in the esophagus. The cricopharyngeus was abnormal. There are extra peristaltic waves in the esophageal body. The distal esophagus/lower esophageal sphincter is spastic, but gives up passage to the endoscope. Tertiary peristaltic waves are noted. Biopsies were obtained from the proximal and distal esophagus with cold forceps for histology of suspected eosinophilic esophagitis. Suspect gastroparesis due to absence of peristalsis, patient symptoms and retained gastric contents. Biopsies were taken with a cold forceps for histology. Biopsies were taken with a cold forceps for Helicobacter pylori testing. Patchy moderate inflammation characterized by erosions, erythema and friability was found in the gastric body and in the gastric antrum. No gross lesions were noted in the entire examined duodenum. Impression: - Abnormal esophageal motility, established presbyesophagus. - Gastroparesis. Biopsied. - Chronic gastritis. - No gross lesions in the entire examined duodenum. - Biopsies were taken with a cold forceps for evaluation of eosinophilic esophagitis. Recommendation: - Await pathology results. - Continue present medications. Procedure Code(s): --- Professional --- 15679, Small intestinal endoscopy, enteroscopy beyond second portion of duodenum, not including ileum; with biopsy, single or multiple CPT copyright 2021 [employer]. All rights reserved. The codes documented in this report are preliminary and upon remote inpatient coder review may be revised to meet current compliance requirements. Justus Ghosh DO 09/05/2025 7:39:08 AM This report has been signed electronically. Number of Addenda: 0 Note Initiated On: 09/05/2025 6:34 AM
--- NOTE | 2025-09-05 07:42 | OP.COLON_ITS ---
Patient Name: Nicki Bajwa Procedure Date: 09/05/2025 7:04 AM Date of : 1965 Age: 60 Procedure: Colonoscopy Indications: Screening for colorectal malignant neoplasm Providers: Justus Ghosh DO Referring MD: Dasia Auguste Medicines: Monitored Anesthesia Care Patient Profile: This is a 60 year old female. Refer to note in patient chart for documentation of history and physical. Patient has symptoms of acute epigastric abdominal pain and dysphagia with both liquids and solids. Last Colonoscopy: more than 10 years ago. Complications: No immediate complications. Procedure: Pre-Anesthesia Assessment: - Prior to the procedure, a History and Physical was performed, and patient medications and allergies were reviewed. The patient is competent. The risks and benefits of the procedure and the sedation options and risks were discussed with the patient. All questions were answered and informed consent was obtained. Patient identification and proposed procedure were verified by the physician in the pre-procedure area. Mental Status Examination: alert and oriented. Airway Examination: normal oropharyngeal airway and neck mobility. Respiratory Examination: clear to auscultation. CV Examination: normal. Prophylactic Antibiotics: The patient does not require prophylactic antibiotics. Prior Anticoagulants: The patient has taken no anticoagulant or antiplatelet agents. ASA Grade Assessment: II - A patient with mild systemic disease. After reviewing the risks and benefits, the patient was deemed in satisfactory condition to undergo the procedure. The anesthesia plan was to use monitored anesthesia care (MAC). Immediately prior to administration of medications, the patient was re-assessed for adequacy to receive sedatives. The heart rate, respiratory rate, oxygen saturations, blood pressure, adequacy of pulmonary ventilation, and response to care were monitored throughout the procedure. The physical status of the patient was re-assessed after the procedure. After I obtained informed consent, the scope was passed under direct vision. Throughout the procedure, the patient's blood pressure, pulse, and oxygen saturations were monitored continuously. The Colonoscope was introduced through the anus and advanced to the cecum, identified by appendiceal orifice and ileocecal valve. The colonoscopy was performed without difficulty. The patient tolerated the procedure well. The quality of the bowel preparation was adequate. The ileocecal valve, appendiceal orifice, and rectum were photographed. Scope In: 7:05:58 AM Scope Withdrawal Time 0 hours 11 minutes 16 seconds Scope Out: 7:23:30 AM Total Procedure Duration Time 0 hours 17 minutes 32 seconds Findings: The perianal and digital rectal examinations were normal. A 5 mm scar was found in the rectum. The scar tissue was healthy in appearance. Biopsies were taken with a cold forceps for histology. Verification of patient identification for the specimen was done. Estimated blood loss was minimal. The exam was otherwise without abnormality on direct and retroflexion views. Impression: - Scar in the rectum. Biopsied. - The examination was otherwise normal on direct and retroflexion views. Recommendation: - Discharge patient to home. - Resume previous diet. - Continue present medications. - Await pathology results. - Repeat colonoscopy in 10 years for screening purposes. Procedure Code(s): --- Professional --- 81647, Colonoscopy, flexible; with biopsy, single or multiple CPT copyright 2021 [employer]. All rights reserved. The codes documented in this report are preliminary and upon biztalk consultant review may be revised to meet current compliance requirements. Justus Ghosh DO 09/05/2025 7:41:23 AM This report has been signed electronically. Number of Addenda: 0 Note Initiated On: 09/05/2025 7:04 AM
--- NOTE | 2025-09-05 07:42 | OP.PROVAT_ITS ---
09/05/2025 Dasia Auguste Re : Colonoscopy procedure for Nicki Bajwa Dear Molina This procedure was performed on September. My impressions and recommendations are as follows: Impressions : - Scar in the rectum. Biopsied. - The examination was otherwise normal on direct and retroflexion views. Recommendations : - Discharge patient to home. - Resume previous diet. - Continue present medications. - Await pathology results. - Repeat colonoscopy in 10 years for screening purposes. My findings are described in the full procedure note, which is enclosed. If I can be of further assistance, please feel free to contact me at . Sincerely, Justus Ghosh, 09/05/2025 7:41:23 AM This report has been signed electronically.
--- NOTE | 2025-09-05 08:49 | PCM.POSTANE2 ---
Anesthesia Postop Eval I Sum Postop Eval Completion status Anesthesia document: Postop Eval 1 completed: Yes Anesthesia Postop Eval I Summary Anesthesia Postop Eval I Summary: Anesthesia Postop Eval I: Assessment Summary Airway patent Yes 09/05/25 07:40 [email or web address] Spontaneous unlabored Yes 09/05/25 07:40 [email or web address] respirations Mental status Asleep 09/05/25 07:40 [email or web address] nausea No 09/05/25 07:40 [email or web address] Vomiting No 09/05/25 07:40 [email or web address] Anesthesia Postop Eval I: Fluid Summary Crystalloid volume administer 500 09/05/25 07:40 [email or web address] (ml) Colloids volume administered ( ml) Blood Product volume administered (ml) Total IV fluid infused 500 09/05/25 07:40 [email or web address] Anesthesia Postop Eval I: Summary Notes Anesthesia Complication No 09/05/25 07:40 [email or web address] Anesthesia Complication Comment: Post-operative progress note Anesthesia: Postop Eval II Evaluation Mental status: Awake and Calm Pain Level: 0 nausea: No Vomiting: No Complications Anesthesia Complication: No
== END 2025-09-05 08:03 | disposition home or self-care (01) ==
LOC: EN 05:29 → AC 05:30
PROVIDERS: PCP Internal Medicine; Referring Provider Internal Medicine; Visit Provider Internal Medicine Gastroenterology
PROC: 0DJD8ZZ Inspection of Lower Intestinal Tract, Via Natural or Artificial Opening Endoscopic (ICD-10-PCS; CPT 45378; principal; 2025-09-05 06:25)
DX: K31.84 Gastroparesis (principal); K21.00 Gastro-esophageal reflux disease with esophagitis, without bleeding; Z79.51 Long term (current) use of inhaled steroids; K58.0 Irritable bowel syndrome with diarrhea; K29.50 Unspecified chronic gastritis without bleeding; K22.89 Other specified disease of esophagus; J45.909 Unspecified asthma, uncomplicated; Z79.899 Other long term (current) drug therapy; Z90.49 Acquired absence of other specified parts of digestive tract; K62.89 Other specified diseases of anus and rectum; K25.9 Gastric ulcer, unspecified as acute or chronic, without hemorrhage or perforation
CPT/HCPCS: 44361; 45380; 88305; 88342; J0585; J2405

== ENCOUNTER → 2025-09-11 | Outpatient (CLI) | payer OTHER, SELFPAY | END | disposition home or self-care (01) | LOC: LABSPEC 15:29 | PROVIDERS: PCP Internal Medicine; Referring Provider Internal Medicine; Visit Provider Internal Medicine | DX: R35.89 Other polyuria (principal) | CPT/HCPCS: 87077; 87086; 87088; 87186 ==

== ENCOUNTER → 2025-09-23 | Outpatient (CLI) | payer SELFPAY ==
[2025-09-23 13:13] LABS: SERUM TEARS COLLECTION SPECIMEN PROCESSED
== END | disposition home or self-care (01) ==
LOC: LAB 11:04
PROVIDERS: PCP Internal Medicine; Referring Provider Ophthalmology; Visit Provider Ophthalmology
DX: H04.123 Dry eye syndrome of bilateral lacrimal glands (principal)